=== PATIENT | male | born 1955 | race Caucasian/White ===

== ENCOUNTER 2021-01-12 02:18 | Emergency (ER) | payer MEDICARE, MEDICAID, SELFPAY ==
[2021-01-12 02:20] VITALS: BP 180/110; PULSE 60; O2SAT 98
[2021-01-12 02:24] VITALS: BP 202/87; PULSE 60; RESP 16; TEMP 37; O2SAT 97; BMI 31.4
--- NOTE | 2021-01-12 02:41 | PC.NURSE ---
MD at bedside with U/S. Bladder scanner missing from ED. 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
--- NOTE | 2021-01-12 02:47 | PC.NURSE ---
Per , U/S showing approx 100 ml in bladder. This RN at beside for straight cathed for urine sample, 175 ml of UO in catheter bag. UA sent for analysis.
--- NOTE | 2021-01-12 03:13 | ED.MALEGU ---
HPI - Male Genitourinary General Chief complaint: Urogenital-Male Stated complaint: bladder discomfort Time Seen by Provider: 01/12/21 03:12 Source: patient Mode of arrival: ambulatory Limitations: no limitations History of Present Illness HPI Narrative: Patient having problem urinating for last 5 days dribbling has a history of prostate enlargement before had surgery done. No fever no chills no flank pain no nausea no vomiting otherwise patient feeling fine Related Data Previous Rx's Medication Instructions Recorded phenazopyridine 200 mg tablet 200 mg PO TID 2 Days #6 tab 01/12/21 (Pyridium) Allergies Allergy/AdvReac Type Severity Reaction Status Date / Time clozapine [From Clozaril] Allergy Unknown RASH Unverified 01/12/21 02:28 hydroxyzine [From VISTARIL] Allergy Unknown UNKNOWN Unverified 01/12/21 02:28 menthol [From Antihistamine] Allergy Unknown RASH Unverified 01/12/21 02:28 nicotine [Nicotine] Allergy Unknown GUM- MAKES Unverified 01/12/21 02:28 SICK TO STOMACH nut - unspecified [nut] Allergy Unknown SWELLING Unverified 01/12/21 02:28 From Antihistamine Allergy Unknown RASH Uncoded 01/12/21 02:28 Review of Systems Review of Systems: Yes all other systems are reviewed and are negative PMFSH Past Medical History Medical History Arthritis Hypertension Myocardial infarct Psychiatric diagnosis Social History Social History Advance Directives: No Advance Directives Information Provided: No Physical Exam Vital Signs: Vital Signs: Last Vital Signs Temp 98.6 F 01/12/21 02:24 Pulse 60 01/12/21 02:24 Resp 16 01/12/21 02:24 BP 202/87 H 01/12/21 02:24 Pulse Ox 97 01/12/21 02:24 Body Mass Index 31.4 Appearance: Alert. Oriented X3. No acute distress. Eyes: No pallor or icterus ENT: Pharynx normal. Oral Mucosa moist Neck: Normal inspection. Neck supple. CVS: Normal heart rate and rhythm. Pulses normal. Respiratory: No respiratory distress. Equal air entry bilateral, Abdomen: Soft and nontender. Bowel sounds are present, no mass palpable, no CVA tenderness Skin: Skin warm and dry. Normal skin color. Normal skin turgor. Extremities: No lower extremity edema. No calf tenderness Neuro: Oriented X 3. MDM - Male Genitourinary MDM Narrative Medical decision making narrative: Bladder scan showed urine only 165 cc straight cath was placed the patient was still complaining of retention UA is negative will discharge patient home on Pyridium advised to follow-up with urologist Lab Data Attestation: I reviewed the patient's lab results. Labs: Lab Results 01/12/21 Range/Units 02:50 Urine Color YELLOW Urine Appearance CLEAR Urine pH 6.0 (5.0-8.0) Ur Specific [place] 1.025 (1.005-1.025) Urine Protein TRACE (NEG-TRACE) MG/DL Urine Glucose (UA) NEG (NEG) MG/DL Urine Ketones NEG (NEG) MG/DL Urine Blood TRACE (NEG) Urine Nitrite NEG (NEG) Ur Leukocyte Esterase NEG (NEG) Urine RBC 1-4 (0) /HPF Urine WBC 0-2 (0-4) /HPF Ur Squamous Epith Cells TRACE /LPF Urine Bacteria NONE /LPF Hyaline Casts 0-2 /LPF Urine Mucus 3+ /LPF Discharge Plan Discharge Clinical Impression: Psychogenic dysuria Patient Disposition: Home, Self-Care Additional Instructions: Drink plenty of fluids Follow-up with your PCP Take medication for urinary complaints likely from anxiety Prescriptions: New phenazopyridine [Pyridium] 200 mg tablet 200 mg PO TID 2 Days Qty: 6 RF: 0
[2021-01-12 03:27] LABS: Appearance Urine CLEAR; Color Urine YELLOW; Glucose Urine UA NEG (NEG); Leukocyte Esterase Urine NEG (NEG); Nitrite Urine NEG (NEG); Specific Gravity - Urine 1.025 (1.005-1.025); UACC Culture Trigger NO; Urine Blood TRACE (NEG); Urine Ketones NEG (NEG); Urine Protein TRACE MG/DL (NEG-TRACE)
[2021-01-12 03:49] LABS: Hyaline Casts Urine 0-2 /LPF; Mucus Urine 3+ /LPF; Squamous Epithelial Cell Urine TRACE /LPF; WBC Urine 0-2 /HPF (0-4)
[2021-01-12 04:09] VITALS: BP 184/84; PULSE 68; RESP 16
[2021-01-12] MEDS: Phenazopyridine HCL 200 MG TABLET PO (04:09)
--- NOTE | 2021-01-12 04:14 | PC.NURSE ---
Per MD order, MD requesting pt be discharged with carpio catheter. This RN at bedside, carpio catheter placed, pt tolerating procedure easily. However, immediately following procedure, pt began thrashing on the bed, stating I have to pee!! I have to pee right now!!! Pt advised that a carpio was in place with urine in carpio tube. MD advised of pt condition, MD advising this RN to remove carpio. Pt provided with bedside urinal, able to urinate a very minimal amount. Pt medicated with Pyridium per JUN. Pt provided with DC paperwork, unable to secure transport home until AM. campaign marketing manager aware.
== END 2021-01-12 04:59 | disposition home or self-care (01) ==
PROVIDERS: Emergency Provider Internal Medicine
DX: F45.8 Other somatoform disorders (principal); Z79.899 Other long term (current) drug therapy
CPT/HCPCS: 81001; 81003

== ENCOUNTER 2021-01-12 15:33 | Inpatient (IN) | payer MEDICARE, MEDICAID, SELFPAY ==
--- NOTE | ~2021-01-12 | CT_ITS ---
EXAMINATION: CT HEAD WITHOUT CONTRAST CLINICAL INFORMATION: Left-sided weakness since exam. COMPARISON: CT head from 05/22/2014. TECHNIQUE: Contiguous axial imaging was performed from the skull base to vertex without intravenous administration of contrast. This CT examination was performed using dose optimization techniques as appropriate, variously including the following: *Automated exposure control. *Adjustment of mA and/or kV according to patient size (this includes techniques or standardized protocols for targeted exams where dose is matched to indication/reason for exam; i.e. extremities or head). *Use of iterative reconstruction technique. DLP: 764 mGy-cm FINDINGS: There is a region of lost choudhury-white matter differentiation in the right precentral gyrus. No evidence of acute intracranial hemorrhage. Scattered hypoattenuation in the periventricular and deep white matter are consistent with moderate microangiopathy. Choudhury-white matter differentiation is preserved. Proportional prominence of the ventricles and sulcal spaces. No evidence for obstructive hydrocephalus. No abnormal mass effect or midline shift. No extra-axial fluid collections. Calcific atherosclerotic disease of the intracranial internal carotid and vertebral arteries. No demonstrated hyperdense vessel sign. No acute soft tissue or osseous abnormalities. Mild mucosal thickening of the paranasal sinuses. The mastoid air cells and middle ear cavities remain well aerated. Right-sided lens extraction. CT/CT head/brain wo con IMPRESSION: 1. Region of lost choudhury-white matter differentiation within the right precentral gyrus suggestive of acute to subacute infarct. 2. No evidence of acute intracranial hemorrhage. 3. Moderate underlying microangiopathy and generalized cerebral volume loss has significantly progressed compared to 2014.
--- NOTE | ~2021-01-12 | MR_ITS ---
EXAMINATION: MRI OF THE BRAIN WITHOUT CONTRAST CLINICAL INFORMATION: CVA. COMPARISON: CT scan of the head 01/12/2021. TECHNIQUE: MRI of the brain was obtained using routine sequences without contrast. FINDINGS: On the diffusion images there is mild gyriform increased signal in the right precentral gyrus without corresponding low ADC map signal. This corresponds to areas of increased T2 and FLAIR signal, and is consistent with a subacute infarct. There are no areas of restricted diffusion. No mass effect or midline shift is seen. The ventricles and sulci are commensurately prominent consistent with moderate diffuse volume loss. There are other moderately extensive areas of increased T2 and FLAIR signal in the periventricular and subcortical white matter bilaterally, and in the uriel consistent with chronic microvascular ischemic changes. No extra-axial fluid collections are seen. The cerebellum appears normal. There has been a right lens extraction. No pathologic magnetic susceptibility artifact is identified on the gradient refocused acquisition. The craniovertebral junction, marrow signal, and midline structures are normal. The major intracranial flow-voids at the level of the [place] are preserved. The dural venous sinus flow-voids are maintained. The mastoid air cells are well-aerated. There is opacification in the left greater than right ethmoid air cells. MR/MR head/brain wo con IMPRESSION: 1. There are areas of increased diffusion signal without restriction in the right precentral gyrus, consistent with an evolving subacute infarct. These have corresponding hyperintense T2 and FLAIR signal. There are no acute infarcts. No bleeds are demonstrated. 2. There is diffuse volume loss and there are chronic microvascular ischemic changes.
--- NOTE | ~2021-01-12 | US_ITS ---
EXAMINATION: US EXTRACRANIAL CAROTID DUPLEX, BILATERAL CLINICAL INFORMATION: CVA COMPARISON: None TECHNIQUE: Real-time ultrasound and Doppler techniques (integrating B-mode 2-D vascular images, Doppler spectral analysis and color-flow Doppler imaging) were utilized to interrogate the extracranial carotid arteries, the vertebral arteries and proximal subclavian arteries bilaterally. The degree of stenosis is determined by criteria similar to NASCET. FINDINGS: Right Side: 1. There is prominent calcified atherosclerotic plaque seen in the bifurcation/proximal ICA region. 2. The common carotid artery PSV proximally is 62.3 cm/s and distally 30.3 cm/s. 3. The internal carotid artery is occluded; there is no demonstrable flow on Doppler evaluation 4. The proximal external carotid artery PSV is 626 cm/s. 5. The vertebral artery shows antegrade flow. 6. The subclavian artery waveforms are normal. Left Side: 1. There is moderate heterogeneous atherosclerotic plaque seen in the bifurcation/proximal ICA region. 2. The common carotid artery PSV proximally is 104 cm/s and distally 127 cm/s. 3. The proximal internal carotid artery velocities are 229 cm/s systolic and 72 cm/s diastolic. 4. The proximal external carotid artery PSV is 261 cm/s. 5. The vertebral artery shows retrograde flow. 6. The subclavian artery waveforms are notable for loss of diastolic flow reversal and slowed flow compared with the right. US/US carotid duplex BI IMPRESSION: 1. RIGHT: Occlusion of the right internal carotid artery. High-grade stenosis of the external carotid artery. 2. LEFT: Moderate, hemodynamically significant stenosis of the proximal left internal carotid artery corresponding to a 50-79% stenosis by velocity criteria. 3. There is retrograde flow within the left vertebral artery and slowed flow within the left subclavian artery suggesting some component of subclavian steal. CT angiography could be of benefit to evaluate central vasculature.
--- NOTE | ~2021-01-12 | XR_ITS ---
EXAMINATION: XR CHEST CLINICAL INFORMATION: Weakness COMPARISON: Previous chest x-ray April 2017 TECHNIQUE: Frontal view of the chest was obtained. FINDINGS: The cardiac and mediastinal contours are stable. There is a coronary artery stent. There is question of atelectasis or small infiltrate behind the heart adjacent spine. The lungs are otherwise clear. There is no pleural effusion or pneumothorax. There are degenerative changes of the spine and curvature to the right. XR/XR chest 1V IMPRESSION: Question atelectasis or small infiltrate at the left lung base.
--- NOTE | ~2021-01-12 | CT_ITS ---
EXAMINATION: CT angio head neck CLINICAL INFORMATION: Carotid stenosis. Stroke. COMPARISON: Brain MRI 01/13/2021, CT head 01/12/2021. TECHNIQUE: Post Anesthesia Nurse images were obtained. A CT angiogram of the head and neck was performed in the arterial phase after the intravenous administration of 70 mL Omnipaque 350. Pre and delayed postcontrast images of the head were also obtained. MIP reconstructions were generated in multiple orientations at the acquisition workstation. Multiple three-dimensional surface rendered images and maximum intensity projection images were generated on a dedicated 3-D lab workstation. Arterial stenoses are measured in accordance with NASCET criteria or similar method if applicable. This CT examination was performed using dose optimization techniques as appropriate, including one or more of the following: Automated exposure control, iterative reconstruction, and adjustment of technique factors (mA and/or kVp) according to patient size (this includes techniques or standardized protocols for targeted exams where dose is matched to indication/reason for exam). Total exam dose-length product 2827 mGy-cm FINDINGS: Head: There is no acute intracranial hemorrhage or abnormal extra-axial collection. Postcontrast images reveal no abnormal mass or enhancement within the intracranial compartment. No intracranial mass effect or midline shift. Lateral and third ventricles are normal. No hydrocephalus. There is a small chronic cortical infarct involving the right precentral gyrus. Scattered nonspecific foci of hypoattenuation are also visualized within the periventricular white matter. The calvarium and skull base are intact. Mastoid air cells and middle ear cavities are well aerated. CT angiogram neck: Irregular atheromatous plaque involves the aortic arch apex. The left subclavian artery is completely occluded shortly after its origin. Eccentric atheromatous plaque causes 50% stenosis of the left common carotid artery at its origin. The brachiocephalic trunk is patent. There is extensive eccentric atheromatous plaque involving both common carotid arteries and carotid bifurcations. The right internal carotid artery is completely occluded at its origin. Eccentric atheromatous plaque along the medial wall of left common carotid artery causes 25% stenosis. There is also 50% stenosis at the origin of the left internal carotid artery. The dominant right vertebral artery is widely patent. There is partial opacification of the distal left vertebral artery which suggests the possibility of reversal of flow within the vessel. CT angiogram head: Atheromatous calcification causes no more than mild right lateral narrowing within the cavernous and horizontal petrous segment of the left internal carotid artery. There is reconstitution of contrast filling the supraclinoid segment of the right internal carotid artery. Intradural vertebral artery segments and basilar artery are grossly patent. Anterior, middle, and posterior cerebral artery complexes are patent. Other: Soft tissues of the neck including the thyroid gland are normal. Visualized lung apices are clear. No acute osseous finding. No worrisome lytic or blastic osseous lesion. CT/CT angio head neck IMPRESSION: The left subclavian artery is completely occluded at its origin. The left vertebral artery is partially opacified distally suggesting the possibility of reversal of flow within the vessel. These findings indicate the likelihood of underlying subclavian steal phenomenon. The right internal carotid arteries completely occluded at its origin. Partially calcified eccentric atheromatous plaque causing 50% stenosis of the left internal carotid artery at its origin. There is also a long segment of plaque causing 25% stenosis along the medial wall of the left common carotid artery. There is mild irregular narrowing within the cavernous and horizontal petrous segments of the left internal carotid artery. There is reconstitution of contrast filling the supraclinoid segment of the right internal carotid artery, possibly secondary to cross filling via the anterior communicating artery. The vertebrobasilar system is patent. No identifiable occlusion within the anterior, middle, and posterior cerebral artery complexes.
--- NOTE | ~2021-01-12 | US_ITS ---
EXAMINATION: US VENOUS ULTRASOUND WITH DOPPLER LOWER EXTREMITY, LEFT CLINICAL INFORMATION: Left lower extremity pain COMPARISON: None TECHNIQUE: Ultrasound of the deep veins is performed from the hip to the calf with compression sonography and color and pulse Doppler assessment. Spectral analysis with color-flow imaging is performed. FINDINGS: There is normal venous compression and respiratory variation and augmented flow. The visualized common femoral vein, superficial femoral vein, profunda femoral vein, popliteal vein, and the trifurcation region shows no evidence of deep venous thrombosis. There is no significant popliteal fossa cyst. If the patient's symptoms persist, followup ultrasound in 5 days 7 days might be of value to exclude proximal propagation from a non-visualized calf vein. US/US venous duplex LE LT IMPRESSION: No DVT demonstrated in the left lower extremity.
[2021-01-12 15:44] VITALS: BP 135/70; PULSE 60; O2SAT 96
[2021-01-12 15:53] VITALS: BP 119/65; PULSE 59; RESP 17; TEMP 36.5; O2SAT 95; BMI 33.0
--- NOTE | 2021-01-12 16:16 | ECG_ITS ---
Test Reason : GENERAL MEDICAL Blood Pressure : / mmHG Vent. Rate : 056 BPM Atrial Rate : 056 BPM P-R Int : 150 ms QRS Dur : 082 ms QT Int : 460 ms P-R-T Axes : 053 -23 -29 degrees QTc Int : 443 ms Sinus bradycardia Minimal voltage criteria for LVH, may be normal variant Nonspecific ST and T wave abnormality Abnormal ECG When compared with ECG of 16-SEP-2018 14:06, T wave inversion now evident in Anterior leads Nonspecific ST and T wave abnormality is now Present Heart rate has decreased Referred By: Laura Nicholson Electronically Signed By:DAVID ROSENTHAL
--- NOTE | 2021-01-12 16:19 | ED_ITS ---
HPI - General Adult General Chief complaint: General Medical Stated complaint: weakness, left leg pain Time Seen by Provider: 01/12/21 16:02 Source: patient and EMS Mode of arrival: EMS Limitations: no limitations History of Present Illness HPI narrative: 65 yo male with reported past medical history of CVA with left sided leg weakness and ?facial weakness residual, HTN, arthritis, PA with stents on plavix, mental health here with complaints of generalized weakness but also feels like his left leg is weaker from normal which he noted since 6am this morning. He tells me d/t to this increasing weakness he is having difficulty with ambulating. He was seen in the ED earlier this morning prior to 6am for some urinary complaints and was sent home. Patient tells me he has been laying in bed until his visiting nurse got there to give him his daily medication. They called EMS for transport. Patient denies GANT, neck pain, falls, chest pain, shortness of breath, abdominal pain, vision changes, vomiting or diarrhea. He tells me he has had some urinary frequency, urgency and difficulty with his urine stream as well as some chills this AM. of note, the patient also feels as the left calf is painful cramping and swollen with no injury or trauma. Related Data Home Medications Medication Instructions Recorded Confirmed amlodipine 5 mg tablet 1 tab PO DAILY 01/12/21 atorvastatin 80 mg tablet 1 tab PO QAM 01/12/21 bupropion HCl 150 mg tablet,12 hr 1 tab PO BID 01/12/21 sustained-release clopidogrel 75 mg tablet 1 tab PO DAILY 01/12/21 fluoxetine 40 mg capsule 1 cap PO DAILY 01/12/21 isosorbide mononitrate 30 mg 1 tab PO DAILY 01/12/21 tablet,extended release 24 hr lamotrigine 100 mg tablet 1 tab PO BID 01/12/21 lidocaine 5 % topical patch 1 patch TOPICAL DAILY 01/12/21 metoprolol tartrate 25 mg tablet 1 tab PO BID 01/12/21 quetiapine 400 mg tablet,extended 1 tab PO BEDTIME 01/12/21 release 24 hr tamsulosin 0.4 mg capsule 1 cap PO DAILY 01/12/21 trazodone 100 mg tablet 2 tab PO BEDTIME PRN 01/12/21 Previous Rx's Medication Instructions Recorded phenazopyridine 200 mg tablet 200 mg PO TID 2 Days #6 tab 01/12/21 (Pyridium) Allergies Allergy/AdvReac Type Severity Reaction Status Date / Time clozapine [From Clozaril] Allergy Unknown RASH Unverified 01/12/21 02:28 hydroxyzine [From VISTARIL] Allergy Unknown UNKNOWN Unverified 01/12/21 02:28 menthol [From Antihistamine] Allergy Unknown RASH Unverified 01/12/21 02:28 nicotine [Nicotine] Allergy Unknown GUM- MAKES Unverified 01/12/21 02:28 SICK TO STOMACH nut - unspecified [nut] Allergy Unknown SWELLING Unverified 01/12/21 02:28 From Antihistamine Allergy Unknown RASH Uncoded 01/12/21 02:28 Review of Systems Review of Systems: Yes all other systems are reviewed and are negative Constitutional: Constitutional: Reports no additional constitutional complaints, Denies body ache(s), Denies chills, Denies fever(s), Denies headache(s) and Reports weakness Eyes: Eyes: Reports no additional eye complaints and Denies change in vision ENT: Reports system reviewed and no additional complaints, except as documented, Denies dizziness, Denies headache(s), Denies nasal congestion, Denies nasal discharge and Denies neck pain Cardiovascular: Cardiovascular: Reports no additional cardiovascular complaints, Denies chest pain, Denies leg edema and Denies dyspnea Respiratory: Respiratory: Reports no additional respiratory complaints, Denies cough and Denies dyspnea Gastrointestinal: Gastrointestinal: Reports no additional gastrointestinal complaints, Denies abdominal pain, Denies diarrhea, Denies nausea and Denies vomiting Genitourinary: Genitourinary: Reports urinary frequency, Reports urinary hesitancy, Denies urinary incontinence and Reports urinary urgency Musculoskeletal: Musculoskeletal: Reports no additional musculoskeletal complaints, Denies back pain, Denies arthralgias, Denies joint swelling, Reports muscle cramps, Denies neck pain, Denies numbness and Denies tingling Integumentary/Breasts: Skin/Breast: Reports system reviewed and no additional complaints, except as docu and Denies rash Neurologic: Reports system reviewed and no additional complaints, except as documented, Denies Abnormal speech present, Denies dizziness, Denies headache(s), Denies numbness, Denies tingling and Reports weakness PMFSH Past Medical History Attestation statement: The following information was validated with the patient. Source: old records reviewed and nursing notes reviewed Medical History Arthritis Hypertension Myocardial infarct Psychiatric diagnosis Social History Social History Advance Directives: No Advance Directives Information Provided: No Physical Exam Vital Signs: Vital Signs: Last Vital Signs Temp 97.8 F 01/12/21 19:37 Pulse 62 01/12/21 19:37 Resp 18 01/12/21 19:37 BP 106/47 L 01/12/21 19:37 Pulse Ox 99 01/12/21 19:37 Body Mass Index 33.0 Const: Other: disheveled appearing, flat affect, withdrawn General: coope rative and alert Orientation/consciousness: patient oriented x3 Limitations: no limitations HENMT: Head: Yes normal to inspection Ears: hearing grossly normal bilate rally and TM's normal bilaterally General nose exam: Normal external nose present Face and sinus: Yes normal facial exam Mouth: Normal oral and palatal mucosa present Throat: Yes posterior oropharynx normal, Yes tonsils normal and Yes uvula midline Eyes: Other: +visual impairment at baseline General: appearance normal, both eyes and all related structures Pupils: Equal, round and reactive pupils present Neck: Neck: Yes normal visual inspection, Yes full ROM, Yes no lymphadenopathy and Yes no meningeal signs Chest: Chest palpation & inspection: normal inspection of the chest Resp: Effort & Inspection: normal respiratory effort Auscultation: clear to auscultation bilaterally Cardio: Rate: regular rate Rhythm: regular rhythm Peripheral pulses: Peripheral pulses 2+ throughout GI: Inspection: Yes normal to inspection Palpation (GI): Soft to palpation and nontender Auscultation: normal bowel sounds Back/Spine/Pelvis: Thoracic/Lumbar Spine: thoracic and lumbar spine normal to inspection Skin: General skin exam: no rashes or lesions noted Neuro: General: patient oriented x3, moves all extremities, no meningeal signs and normal sensation to monofilament Cranial nerves: Yes CN's II-XII intact bilaterally, Yes Equal, round and reactive pupils present, Yes Bilaterally intact EOM present, Yes Nystagmus not present, Yes Normal facial strength present and Yes Midline tongue present Cognition (Neuro): normal cognition Speech: No Abnormal speech present and Other speech findings present (Neuro) (normal speech) Motor exam (neuro): Abnormal motor strength present left lower extremity other 4 / 5 and Other motor observations present (bilateral UE 5/5, RLE 5/5) Sensory Exam: Normal double simultaneous stimulation for sensation Coordination: [id number] test normal Extrem: Other: Left posterior calf tender to palp-worsened with flexion of foot. No swelling, warmth or erythema General: Yes normal to inspection and Yes no pedal edema NIH Stroke Scale Internal: Initial- Upon Arrival Level of Consciousness: Alert Level of Consciousness Questions: Answers both questions correctly Level of Consciousness Commands: Performs both tasks correctly Best Gaze: Normal Visual: No visual loss Facial Palsy: Normal Motor Arm (Right): No drift Motor Arm (Left): No drift Motor Leg (Right): No drift Motor Leg (Left): Drift (4/5 strength) Limb Ataxia: Absent Sensory: Normal Best Language: No aphasia Dysarthia: Normal Extinction and Inattention: No abnormality Score: 1 Course Course Course Narrative: 65 yo male with past medical history of reported CVA with residual LLE weakness, PA with stents on plavix, HTN, arthritis, mental health here with reports of ?worsening LLE weakness since 6am. Patient also c/o gen weakness, urinary symptoms, ?chills this AM, LLE cramping and discomfort. On exam neuro normal with exception of 4/5 strength in LLE. Unclear if this is worse then previous. Unfortunately patient is not in TPA window d/t symptoms >10 hrs and being on plavix. NIH 1. Will check labs, CT head, EKG, CXR, UA. Also c/o LLE cramping and calf pain. Will check venous US to r/o DVT. Will attempt to obtain records from [facility] as that is patient's primary hospital (reported admit there this year for CVA). 1704-chest x-ray concerning for potential left lower lobe pneumonia. Blood cultures and lactic acid ordered. At this time infection is suspected. Antibiotics ordered. Patient reports chills this morning, cough last few days. 1899-call from radiology IMPRESSION: 1. Region of lost rodriguez-white matter differentiation within the right precentral gyrus suggestive of acute to subacute infarct. Will discuss with Neurology. Patient on Plavix. Will give aspirin. 1914-discussed patient with Dr. Rosa. Recommended admitting to Medicine. Giving aspirin. Blood pressure 119/65. Recommended holding antihypertensives. Call out to medicine to discuss 1935-Spoke to Dr Armas from the hospital team who accepted admission. Medical Decision Making MDM Narrative Medical decision making narrative: CVA underlying infectious process (UA, CXR) Metabolic cause (labs) Medical Records Medical records reviewed: Yes I reviewed the patient's medical records. Lab Data Lab results reviewed: Yes I reviewed the patient's lab results. Result diagrams: 01/12/21 17:11 01/12/21 17:11 Labs: Lab Results 01/12/21 01/12/21 01/12/21 Range/Units 16:57 17:11 17:11 WBC 10.7 (4.8-10.8) X10*3/uL RBC 4.30 L (4.60-5.80) X10*6/uL Hgb 12.6 L (14.0-18.0) g/dl Hct 37.7 L (42-52) % MCV 87.7 (80-98) fL MCH 29.3 (27.0-33.0) pg MCHC 33.4 (31.0-36.0) g/dl RDW 14.3 (11.0-16.0) % Plt Count 248 (160-400) X10*3/uL MPV 10.0 (9.4-12.4) fL Immature Gran % (Auto) 0.3 (0.0-0.4) % Neut % (Auto) 52.3 (45-73) % Lymph % (Auto) 35.2 (20-40) % [place] % (Auto) 8.3 (2-11) % Eos % (Auto) 3.1 (0-4) % Baso % (Auto) 0.8 (0-2) % Lymph # (Auto) 3.8 (1.2-4.9) X10*3/uL [place] # (Auto) 0.9 (0.1-1.2) X10*3/uL Eos # (Auto) 0.3 (0.0-0.4) X10*3/uL Baso # (Auto) 0.1 (0.0-0.2) X10*3/uL Abs Immat Gran (auto) 0.03 (0.00-0.03) X10*3/uL Absolute Neuts (auto) 5.6 (2.0-8.3) X10*3/uL Absolute Nucleated RBC 0.000 (0.0-0.012) X10*3/uL Nucleated RBC % (auto) 0.0 (0.0-0.2) /100WBC Sodium 141 (135-145) mmol/L Potassium 3.3 (3.3-5.1) mmol/L Chloride 111 H (96-108) mmol/L Carbon Dioxide 23 (22-29) mmol/L Anion Gap 10 L (12-20) BUN 28 H (9-16) mg/dL Creatinine 1.88 H (0.5-1.4) mg/dL Estim Creat Clear Calc 46.6 Estimated GFR 36 POC Glucose 112 (60-115) mg/dL Random Glucose 106 (60-115) mg/dL Lactic Acid (0.5-2.0) mmol/L Calcium 9.1 (8.4-10.2) mg/dL Phosphorus 2.6 L (2.7-4.5) mg/dL Magnesium 2.2 (1.6-2.6) mg/dL Total Bilirubin 0.8 (0.0-1.0) mg/dL Direct Bilirubin 0.2 (0.0-0.5) mg/dL AST 15 (5-37) U/L ALT 14 (0-40) U/L Alkaline Phosphatase 102 (39-117) U/L Total Creatine Kinase 126 (38-174) U/L Troponin I High Sens (<3.5-35.0) ng/L Total Protein 6.4 L (6.5-8.0) g/dL Albumin 3.5 (3.5-5.0) g/dL TSH 0.85 (0.32-4.0) uIU/mL Ethyl Alcohol mg/dL Coronavirus (PCR) (Negative) Influenza Type A (PCR) (Negative) Influenza Type B (PCR) (Negative) RSV RNA Qual (PCR) (Negative) 01/12/21 01/12/21 01/12/21 Range/Units 17:11 17:11 17:11 WBC (4.8-10.8) X10*3/uL RBC (4.60-5.80) X10*6/uL Hgb (14.0-18.0) g/dl Hct (42-52) % MCV (80-98) fL MCH (27.0-33.0) pg MCHC (31.0-36.0) g/dl RDW (11.0-16.0) % Plt Count (160-400) X10*3/uL MPV (9.4-12.4) fL Immature Gran % (Auto) (0.0-0.4) % Neut % (Auto) (45-73) % Lymph % (Auto) (20-40) % [place] % (Auto) (2-11) % Eos % (Auto) (0-4) % Baso % (Auto) (0-2) % Lymph # (Auto) (1.2-4.9) X10*3/uL [place] # (Auto) (0.1-1.2) X10*3/uL Eos # (Auto) (0.0-0.4) X10*3/uL Baso # (Auto) (0.0-0.2) X10*3/uL Abs Immat Gran (auto) (0.00-0.03) X10*3/uL Absolute Neuts (auto) (2.0-8.3) X10*3/uL Absolute Nucleated RBC (0.0-0.012) X10*3/uL Nucleated RBC % (auto) (0.0-0.2) /100WBC Sodium (135-145) mmol/L Potassium (3.3-5.1) mmol/L Chloride (96-108) mmol/L Carbon Dioxide (22-29) mmol/L Anion Gap (12-20) BUN (9-16) mg/dL Creatinine (0.5-1.4) mg/dL Estim Creat Clear Calc Estimated GFR POC Glucose (60-115) mg/dL Random Glucose (60-115) mg/dL Lactic Acid (0.5-2.0) mmol/L Calcium (8.4-10.2) mg/dL Phosphorus (2.7-4.5) mg/dL Magnesium (1.6-2.6) mg/dL Total Bilirubin (0.0-1.0) mg/dL Direct Bilirubin (0.0-0.5) mg/dL AST (5-37) U/L ALT (0-40) U/L Alkaline Phosphatase (39-117) U/L Total Creatine Kinase (38-174) U/L Troponin I High Sens 7.1 (<3.5-35.0) ng/L Total Protein (6.5-8.0) g/dL Albumin (3.5-5.0) g/dL TSH (0.32-4.0) uIU/mL Ethyl Alcohol < 10 mg/dL Coronavirus (PCR) NEGATIVE (Negative) Influenza Type A (PCR) NEGATIVE (Negative) Influenza Type B (PCR) NEGATIVE (Negative) RSV RNA Qual (PCR) NEGATIVE (Negative) 01/12/21 Range/Units 17:47 WBC (4.8-10.8) X10*3/uL RBC (4.60-5.80) X10*6/uL Hgb (14.0-18.0) g/dl Hct (42-52) % MCV (80-98) fL MCH (27.0-33.0) pg MCHC (31.0-36.0) g/dl RDW (11.0-16.0) % Plt Count (160-400) X10*3/uL MPV (9.4-12.4) fL Immature Gran % (Auto) (0.0-0.4) % Neut % (Auto) (45-73) % Lymph % (Auto) (20-40) % [place] % (Auto) (2-11) % Eos % (Auto) (0-4) % Baso % (Auto) (0-2) % Lymph # (Auto) (1.2-4.9) X10*3/uL [place] # (Auto) (0.1-1.2) X10*3/uL Eos # (Auto) (0.0-0.4) X10*3/uL Baso # (Auto) (0.0-0.2) X10*3/uL Abs Immat Gran (auto) (0.00-0.03) X10*3/uL Absolute Neuts (auto) (2.0-8.3) X10*3/uL Absolute Nucleated RBC (0.0-0.012) X10*3/uL Nucleated RBC % (auto) (0.0-0.2) /100WBC Sodium (135-145) mmol/L Potassium (3.3-5.1) mmol/L Chloride (96-108) mmol/L Carbon Dioxide (22-29) mmol/L Anion Gap (12-20) BUN (9-16) mg/dL Creatinine (0.5-1.4) mg/dL Estim Creat Clear Calc Estimated GFR POC Glucose (60-115) mg/dL Random Glucose (60-115) mg/dL Lactic Acid 0.8 (0.5-2.0) mmol/L Calcium (8.4-10.2) mg/dL Phosphorus (2.7-4.5) mg/dL Magnesium (1.6-2.6) mg/dL Total Bilirubin (0.0-1.0) mg/dL Direct Bilirubin (0.0-0.5) mg/dL AST (5-37) U/L ALT (0-40) U/L Alkaline Phosphatase (39-117) U/L Total Creatine Kinase (38-174) U/L Troponin I High Sens (<3.5-35.0) ng/L Total Protein (6.5-8.0) g/dL Albumin (3.5-5.0) g/dL TSH (0.32-4.0) uIU/mL Ethyl Alcohol mg/dL Coronavirus (PCR) (Negative) Influenza Type A (PCR) (Negative) Influenza Type B (PCR) (Negative) RSV RNA Qual (PCR) (Negative) Imaging Data Chest x-ray: Attestation: I personally reviewed and interpreted this imaging study as follows: Radiologist's impression: EXAMINATION: XR CHEST CLINICAL INFORMATION: Weakness COMPARISON: Previous chest x-ray April 2017 TECHNIQUE: Frontal view of the chest was obtained. FINDINGS: The cardiac and mediastinal contours are stable. There is a coronary artery stent. There is question of atelectasis or small infiltrate behind the heart adjacent spine. The lungs are otherwise clear. There is no pleural effusion or pneumothorax. There are degenerative changes of the spine and curvature to the right. XR/XR chest 1V IMPRESSION: Question atelectasis or small infiltrate at the left lung base. Venous US: Attestation: I personally reviewed and interpreted this imaging study as follows: Radiologist's impression: [address] [address] Ultrasound Report Signed Patient: Edward Rosa MR#: [id number] : 1955 Acct:[id number] Age/Sex: 65 / M ADM Date: 01/12/21 Loc: HO.ED Attending Dr: Ordering Physician: Laura Nicholson NP Date of Service: 01/12/21 Procedure(s): US venous duplex LE LT Accession Number(s): [id number] cc: Laura Nicholson NP~ EXAMINATION:? US VENOUS ULTRASOUND WITH DOPPLER LOWER EXTREMITY, LEFT CLINICAL INFORMATION:? Left lower extremity pain COMPARISON:? None TECHNIQUE: Ultrasound of the deep veins is performed from the hip to the calf with compression sonography and color and pulse Doppler assessment. Spectral analysis with color-flow imaging is performed. FINDINGS: There is normal venous compression and respiratory variation and augmented flow. The visualized common femoral vein, superficial femoral vein, profunda femoral vein, popliteal vein, and the trifurcation region shows no evidence of deep venous thrombosis. ? There is no significant popliteal fossa cyst. If the patient's symptoms persist, followup ultrasound in 5 days 7 days might be of value to exclude proximal propagation from a non-visualized calf vein. US/US venous duplex LE LT IMPRESSION: No DVT demonstrated in the left lower extremity. CT scan - head: Attestation: I personally reviewed and interpreted this imaging study as follows: Radiologist's impression: IMPRESSION: 1. Region of lost rodriguez-white matter differentiation within the right precentral gyrus suggestive of acute to subacute infarct. 2. No evidence of acute intracranial hemorrhage. 3. Moderate underlying microangiopathy and generalized cerebral volume loss has significantly progressed compared to 2015. ECG Data Attestation: I personally reviewed and interpreted this ECG as follows: Interpretation: SB with rate 56, normal pr, normal qrs, normal qtc-ST depressions 3-6 (unchanged from previous) Critical Care Time Critical Care Time Critical Care Time: Yes Total Critical Care Time: 60 Attestation: acute CVA, repeat neuro exam, discussion with neurology, discussion with medicine Discharge Plan Discharge Clinical Impression: Acute CVA (cerebrovascular accident), Pneumonia, BRENNA (acute kidney injury) Patient Disposition: Admitted As Inpatient
[2021-01-12 17:16] LABS: MANUAL DIFF FLAG NO
[2021-01-12 17:16] LABS: Glucose, Whole Blood 112 mg/dL (60-115)
[2021-01-12 17:19] LABS: Basophils Absolute Auto 0.1 X10*3/uL (0.0-0.2); Basophils Percent Auto 0.8 % (0-2); Eosinophils Absolute Auto 0.3 X10*3/uL (0.0-0.4); Eosinophils Percent Auto 3.1 % (0-4); Hematocrit 37.7 % (42-52); Hemoglobin 12.6 g/dl (14.0-18.0); Imm Gran Abs Auto 0.03 X10*3/uL (0.00-0.03); Imm Gran Pct Auto 0.3 % (0.0-0.4); Lymphocytes Absolute Auto 3.8 X10*3/uL (1.2-4.9); Lymphocytes Percent Auto 35.2 % (20-40); Mean Corpuscular HGB Conc 33.4 g/dl (31.0-36.0); Mean Corpuscular Hemoglobin 29.3 pg (27.0-33.0); Mean Corpuscular Volume 87.7 fL (80-98); Monocytes Absolute Auto 0.9 X10*3/uL (0.1-1.2); Monocytes Percent Auto 8.3 % (2-11); Neutrophils Absolute Auto 5.6 X10*3/uL (2.0-8.3); Neutrophils Percent Auto 52.3 % (45-73); Platelet Count 248 X10*3/uL (160-400); Red Cell Distribution Width 14.3 % (11.0-16.0); White Blood Count 10.7 X10*3/uL (4.8-10.8)
[2021-01-12 17:33] LABS: Ethanol < 10 mg/dL
[2021-01-12 17:36] LABS: Alanine Aminotransferase 14 U/L (0-40); Albumin Level 3.5 g/dL (3.5-5.0); Alkaline Phosphatase 102 U/L (39-117); Anion Gap 10 (12-20); Aspartate Amino Transferase 15 U/L (5-37); Bilirubin Direct 0.2 mg/dL (0.0-0.5); Bilirubin Total 0.8 mg/dL (0.0-1.0); Blood Urea Nitrogen 28 mg/dL (9-16); Calcium 9.1 mg/dL (8.4-10.2); Carbon Dioxide 23 mmol/L (22-29); Chloride 111 mmol/L (96-108); Creatinine Clr Calc Pharmacy 46.6; Estimated Glomerular Filt Rate 36; Glucose Random 106 mg/dL (60-115); Magnesium 2.2 mg/dL (1.6-2.6); Phosphorus 2.6 mg/dL (2.7-4.5); Potassium 3.3 mmol/L (3.3-5.1); Sodium 141 mmol/L (135-145); Total Protein 6.4 g/dL (6.5-8.0)
[2021-01-12 17:40] LABS: Troponin-I High Sensitivity 7.1 ng/L (<3.5-35.0)
[2021-01-12] MEDS: 0.9 % Sodium Chloride 1,000 ML 999 ML IV (17:55)
[2021-01-12 17:56] LABS: Thyroid Stimulating Hormone 0.85 uIU/mL (0.32-4.0)
[2021-01-12] MEDS: cefTRIAXone sodium 1 GM in 0.9 % Sodium Chloride 50 ML IV (17:56)
--- NOTE | 2021-01-12 17:58 | PC.NURSE ---
patient a&o, labs drawn, ekg performed, pt went to radiology, ivf and antibiotics hanging per order, will continue to monitor.
[2021-01-12 18:09] LABS: Lactic Acid 0.8 mmol/L (0.5-2.0)
[2021-01-12 18:49] LABS: Influenza A PCR NEGATIVE (Negative); Influenza B PCR NEGATIVE (Negative); Resp Syncy Virus RNA Qual PCR NEGATIVE (Negative); SARS COV2 PCR INHOUSE NEGATIVE (Negative)
[2021-01-12] MEDS: Aspirin 81 MG TAB.CHEW 324 MG PO (19:35)
[2021-01-12] MEDS: Azithromycin 500 MG in 0.9 % Sodium Chloride 250 ML 125 MG IV (19:35)
[2021-01-12 19:37] VITALS: BP 106/47; PULSE 62; RESP 18; TEMP 36.6; O2SAT 99
--- NOTE | 2021-01-12 19:38 | PC.NURSE ---
patient awake to verbal stimulus, vitals obtained, pt sinus/sinus fabrice on cardiac montior, vss, pt medicated per order, will continue to monitor.
--- NOTE | 2021-01-12 21:08 | PM.IMHP ---
History of Present Illness Date of Service: 01/12/21 Chief Complaint: left sided weakness This is a 65-year-old male with past medical history of hypertension, CAD status post AK, bipolar disorder, and reports history of CVA earlier this year presented to the hospital with complaints of left-sided weakness. Patient is very vague, unable to give good history but reports that his visiting nurse sent him to the hospital for noticed left-sided weakness. Patient himself reports that he has baseline weakness of the left lower extremity but he feels that it has increased today. This started around 6:00 a.m. and therefore by the time he arrived to the ED he did not qualify for tPA. Patient denies any headache, no change in vision, no chest pain, no shortness of breath, no abdominal pain nausea or vomiting, no diarrhea constipation, no urinary symptoms and no lower extremity edema. On arrival to the ED patient hemodynamically stable with a blood pressure of 202/87, his other vitals are normal Labs are significant for WBC count of 10.7, hemoglobin of 12.7, BUN of 24, creatinine of 1.88 with a baseline of 1.[address] shows region of loss of rodriguez-white matter differentiation within the right precentral gyrus suggestive of acute to subacute infarct, no assistance of acute intracranial home Chest x-ray shows atelectasis versus infiltrate, Neurology was consulted, patient will be admitted for further evaluation in a.m. Review of Systems Review of Systems: Yes all other systems are reviewed and are negative FORMERLY [facility], [facility] Medical History Arthritis Hypertension Myocardial infarct Psychiatric diagnosis Pertinent family history: Patient denies family history Surgical History (Updated 01/13/21 @ 07:14 by Lawrence Armas MD) No significant past surgical history Social History Household Members: None Housing: Apartment Do you presently have visiting nurse or other home services: Yes Patient Tobacco Use Status: Current everyday Tobacco user Tobacco use type: Cigar Use of substances other than those prescribed or required for medical reasons: No Have you been hit, kicked, punched, or otherwise hurt by someone within the past year? If so, by whom?: No Do you feel safe in your current relationship?: No Current Relationship Is there a partner from a previous relationship who is making you feel unsafe now?: No Are you made to feel afraid or neglected: No Advance Directives: No Advance Directives Information Provided: No Do you have thoughts of harming others: None Do you have a plan to hurt others: No Plan Recently lost weight without trying: Unsure Nutrition Risks: On aspiration precautions Poor oral hygiene: No Meds Allergies Allergy/AdvReac Type Severity Reaction Status Date / Time clozapine [From Clozaril] Allergy Unknown RASH Unverified 01/12/21 02:28 hydroxyzine [From VISTARIL] Allergy Unknown UNKNOWN Unverified 01/12/21 02:28 menthol [From Antihistamine] Allergy Unknown RASH Unverified 01/12/21 02:28 nicotine [Nicotine] Allergy Unknown GUM- MAKES Unverified 01/12/21 02:28 SICK TO STOMACH nut - unspecified [nut] Allergy Unknown SWELLING Unverified 01/12/21 02:28 From Antihistamine Allergy Unknown RASH Uncoded 01/12/21 02:28 Home Medications Medication Instructions Recorded Confirmed Last Taken Type amlodipine 5 mg tablet 1 tab PO DAILY 01/12/21 Unknown History atorvastatin 80 mg tablet 1 tab PO QAM 01/12/21 Unknown History bupropion HCl 150 mg tablet,12 hr 1 tab PO BID 01/12/21 Unknown History sustained-release clopidogrel 75 mg tablet 1 tab PO DAILY 01/12/21 Unknown History fluoxetine 40 mg capsule 1 cap PO DAILY 01/12/21 Unknown History isosorbide mononitrate 30 mg 1 tab PO DAILY 01/12/21 Unknown History tablet,extended release 24 hr lamotrigine 100 mg tablet 1 tab PO BID 01/12/21 Unknown History lidocaine 5 % topical patch 1 patch TOPICAL DAILY 01/12/21 Unknown History metoprolol tartrate 25 mg tablet 1 tab PO BID 01/12/21 Unknown History quetiapine 400 mg tablet,extended 1 tab PO BEDTIME 01/12/21 Unknown History release 24 hr tamsulosin 0.4 mg capsule 1 cap PO DAILY 01/12/21 Unknown History trazodone 100 mg tablet 2 tab PO BEDTIME PRN 01/12/21 Unknown History Physical Exam Vital Signs and Narrative: Vital Signs: Last Vital Signs Temp 97.8 F 01/12/21 19:37 Pulse 62 01/12/21 19:37 Resp 18 01/12/21 19:37 BP 106/47 L 01/12/21 19:37 Pulse Ox 99 01/12/21 19:37 Body Mass Index 33.0 Const: General: cooperative and no acute distress Orientation/consciousness: patient oriented x3 Eyes: General: appearance normal, both eyes and all related structures Resp: Effort & Inspection: normal respiratory effort Auscultation: clear to auscultation bilaterally Cardio: Rate: regular rate Rhythm: regular rhythm GI: Palpation (GI): Soft to palpation Auscultation: normal bowel sounds Skin: General skin exam: no rashes or lesions noted Neuro: Other: Has 4/5 weakness in the left lower extremity Otherwise no significant neurological deficits Patient is not significant will cooperating with exam General: patient oriented x3 Cognition (Neuro): normal cognition Extrem: General: Yes normal to inspection and Yes no pedal edema Results Labs CBC and Chem 7: 01/13/21 05:48 01/13/21 05:48 Labs: Laboratory Results - last 24 hr 01/12/21 01/12/21 01/12/21 16:57 17:11 17:11 MCV 87.7 MCH 29.3 MCHC 33.4 RDW 14.3 Plt Count 248 MPV 10.0 Immature Gran % (Auto) 0.3 Neut % (Auto) 52.3 Lymph % (Auto) 35.2 Mcnairy % (Auto) 8.3 Eos % (Auto) 3.1 Baso % (Auto) 0.8 Lymph # (Auto) 3.8 Mcnairy # (Auto) 0.9 Eos # (Auto) 0.3 Baso # (Auto) 0.1 Abs Immat Gran (auto) 0.03 Absolute Neuts (auto) 5.6 Absolute Nucleated RBC 0.000 Nucleated RBC % (auto) 0.0 Anion Gap 10 L Estim Creat Clear Calc 46.6 Estimated GFR 36 POC Glucose 112 Random Glucose 106 Lactic Acid Calcium 9.1 Phosphorus 2.6 L Magnesium 2.2 Total Bilirubin 0.8 Direct Bilirubin 0.2 AST 15 ALT 14 Alkaline Phosphatase 102 Total Creatine Kinase 126 Troponin I High Sens Total Protein 6.4 L Albumin 3.5 TSH 0.85 Ethyl Alcohol Coronavirus (PCR) Influenza Type A (PCR) Influenza Type B (PCR) RSV RNA Qual (PCR) 01/12/21 01/12/21 01/12/21 17:11 17:11 17:11 MCV MCH MCHC RDW Plt Count MPV Immature Gran % (Auto) Neut % (Auto) Lymph % (Auto) [place]nairy % (Auto) Eos % (Auto) Baso % (Auto) Lymph # (Auto) Mcnairy # (Auto) Eos # (Auto) Baso # (Auto) Abs Immat Gran (auto) Absolute Neuts (auto) Absolute Nucleated RBC Nucleated RBC % (auto) Anion Gap Estim Creat Clear Calc Estimated GFR POC Glucose Random Glucose Lactic Acid Calcium Phosphorus Magnesium Total Bilirubin Direct Bilirubin AST ALT Alkaline Phosphatase Total Creatine Kinase Troponin I High Sens 7.1 Total Protein Albumin TSH Ethyl Alcohol < 10 Coronavirus (PCR) NEGATIVE Influenza Type A (PCR) NEGATIVE Influenza Type B (PCR) NEGATIVE RSV RNA Qual (PCR) NEGATIVE 01/12/21 17:47 MCV MCH MCHC RDW Plt Count MPV Immature Gran % (Auto) Neut % (Auto) Lymph % (Auto) [place] % (Auto) Eos % (Auto) Baso % (Auto) Lymph # (Auto) [place]nairy # (Auto) Eos # (Auto) Baso # (Auto) Abs Immat Gran (auto) Absolute Neuts (auto) Absolute Nucleated RBC Nucleated RBC % (auto) Anion Gap Estim Creat Clear Calc Estimated GFR POC Glucose Random Glucose Lactic Acid 0.8 Calcium Phosphorus Magnesium Total Bilirubin Direct Bilirubin AST ALT Alkaline Phosphatase Total Creatine Kinase Troponin I High Sens Total Protein Albumin TSH Ethyl Alcohol Coronavirus (PCR) Influenza Type A (PCR) Influenza Type B (PCR) RSV RNA Qual (PCR) ECG Interpretation: Sinus bradycardia with nonspecific ST T wave change Imaging Radiologist's Impressions: Impressions Chest X-Ray 01/12/21 16:16 IMPRESSION: Question atelectasis or small infiltrate at the left lung base. Head CT 01/12/21 16:16 IMPRESSION: 1. Region of lost rodriguez-white matter differentiation within the right precentral gyrus suggestive of acute to subacute infarct. 2. No evidence of acute intracranial hemorrhage. 3. Moderate underlying microangiopathy and generalized cerebral volume loss has significantly progressed compared to 2015. Venous Duplex 01/12/21 16:19 IMPRESSION: No DVT demonstrated in the left lower extremity. Assessment and Plan (1) Acute CVA (cerebrovascular accident): Status: Acute (2) BRENNA (acute kidney injury): Status: Acute 65-year-old with past medical history of CAD status post AK, bipolar disorder, hypertension who presents to the hospital with left-sided weakness found to have acute to subacute CVA # CVA - acute versus subacute - has 4/5 strength in the lower left extremity - CT head shows region of loss of rodriguez-white matter differentiation within the right precentral gyrus suggestive of acute to subacute infarct - neurology consult - stroke order set initiated - PT OT - high-dose atorvastatin - aspirin - patient on Plavix at baseline for history of AK # BRENNA - unclear etiology - denies any urinary symptom - will obtain UA - IV fluid - follow BMP # history of AK - continue Plavix - home meds are still pending med review by pharmacy # hypertension - hold antihypertensive for permissive hypertension in the setting of acute CVA # history of bipolar disorder - Continue home medications once reviewed by pharmacy DVT prophylaxis: Quality Stroke Does the patient have a stroke diagnosis?: No VTE Prior VTE?: No VTE Risk Level:: Medical - moderate - high VTE Device Contraindication: Treatment Not Indicated VTE Drug Contraindication: N/A - Med Ordered
--- NOTE | 2021-01-12 21:55 | PC.NURSE ---
called [facility], no answer, will notify charge
--- NOTE | 2021-01-12 22:29 | PC.NURSE ---
report given to floor
[2021-01-13] VITALS (8 sets, daily range): BP systolic 135–172; BP diastolic 62–84; PULSE 50–69; RESP 18–20; TEMP 36.4–36.8; O2SAT 94–98
[2021-01-13 06:08] LABS: MANUAL DIFF FLAG NO
[2021-01-13 06:12] LABS: Basophils Absolute Auto 0.1 X10*3/uL (0.0-0.2); Basophils Percent Auto 0.8 % (0-2); Eosinophils Absolute Auto 0.3 X10*3/uL (0.0-0.4); Eosinophils Percent Auto 3.2 % (0-4); Hematocrit 38.5 % (42-52); Hemoglobin 12.7 g/dl (14.0-18.0); Imm Gran Abs Auto 0.04 X10*3/uL (0.00-0.03); Imm Gran Pct Auto 0.4 % (0.0-0.4); Lymphocytes Absolute Auto 3.1 X10*3/uL (1.2-4.9); Lymphocytes Percent Auto 28.7 % (20-40); Mean Corpuscular Hemoglobin 29.5 pg (27.0-33.0); Mean Corpuscular Volume 89.5 fL (80-98); Mean Platelet Volume 10.5 fL (9.4-12.4); Monocytes Absolute Auto 0.8 X10*3/uL (0.1-1.2); Monocytes Percent Auto 7.1 % (2-11); Neutrophils Absolute Auto 6.4 X10*3/uL (2.0-8.3); Neutrophils Percent Auto 59.8 % (45-73); Platelet Count 221 X10*3/uL (160-400); Red Cell Distribution Width 14.3 % (11.0-16.0); White Blood Count 10.7 X10*3/uL (4.8-10.8)
[2021-01-13 06:28] LABS: Anion Gap 12 (12-20); Blood Urea Nitrogen 24 mg/dL (9-16); Calcium 8.6 mg/dL (8.4-10.2); Carbon Dioxide 21 mmol/L (22-29); Chloride 112 mmol/L (96-108); Creatinine Clr Calc Pharmacy 56.2; Estimated Glomerular Filt Rate 45; Glucose Random 119 mg/dL (60-115); Potassium 3.3 mmol/L (3.3-5.1); Sodium 142 mmol/L (135-145)
[2021-01-13 06:30] LABS: Cholesterol 151 mg/dL; HDL Cholesterol 30 mg/dL; LDL Cholesterol Calculated 85 mg/dl; Triglycerides 181 mg/dL
[2021-01-13 07:48] LABS: Appearance Urine HAZY; Color Urine DK YELLOW; Glucose Urine UA NEG (NEG); Leukocyte Esterase Urine NEG (NEG); Nitrite Urine POS (NEG); PH 5.5 (5.0-8.0); Specific Gravity - Urine >= 1.030 (1.005-1.025); Urine Blood 3+ (NEG); Urine Ketones NEG (NEG); Urine Protein 1+ MG/DL (NEG-TRACE)
[2021-01-13 08:01] LABS: RBC Urine TNTC /HPF (0)
[2021-01-13 08:03] LABS: WBC Urine 0-2 /HPF (0-4)
[2021-01-13 08:05] LABS: Amorphous Sediment Urine 1+ /LPF; Bacteria Urine TRACE /LPF
[2021-01-13] MEDS: Aspirin Enteric Coated 81 MG TABLET.DR PO (09:12)
[2021-01-13] MEDS: Lactated Ringers 1,000 ML 100 ML IVCONT ×2 (09:12→15:49)
[2021-01-13] MEDS: Enoxaparin Sodium 40 MG/0.4 ML SYRINGE SUBCUT (09:12)
[2021-01-13] MEDS: Atorvastatin Calcium 80 MG TABLET PO (09:12)
--- NOTE | 2021-01-13 09:43 | MHC.CM.PN ---
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
--- NOTE | 2021-01-13 11:51 | PM.NEUROCN ---
History of Present Illness Data of Consult Service Date: 01/13/21 Primary Care Provider: Balaji Mayo MD [facility] Reason for consult: Possible stroke 65 years old man who was brought to hospital upon his nurses request because he did not look well. He did not know what exactly had happened. According to ER documentation there was suggestion of left-sided weakness but in emergency room that was not noted. He was not considered a candidate for tPA and was admitted for further evaluation. There was no sign of any seizure. Review of Systems Review of Systems: No recent cold or flu-like illness seizure-like episode or trauma. [facility] Past Medical History Medical History (Updated 01/13/21 @ 11:53 by Suzy Rosa MD) Arthritis Hypertension Myocardial infarct Psychiatric diagnosis Surgical History Surgical History No significant past surgical history Social History Social History Household Members: None Housing: Apartment Do you presently have visiting nurse or other home services: Yes Patient Tobacco Use Status: Current everyday Tobacco user Tobacco use type: Cigar Use of substances other than those prescribed or required for medical reasons: No Have you been hit, kicked, punched, or otherwise hurt by someone within the past year? If so, by whom?: No Do you feel safe in your current relationship?: No Current Relationship Is there a partner from a previous relationship who is making you feel unsafe now?: No Are you made to feel afraid or neglected: No Advance Directives: No Advance Directives Information Provided: No Do you have thoughts of harming others: None Do you have a plan to hurt others: No Plan Recently lost weight without trying: Unsure Nutrition Risks: On aspiration precautions Poor oral hygiene: No service: No Meds Allergies Allergy/AdvReac Type Severity Reaction Status Date / Time clozapine [From Clozaril] Allergy Unknown RASH Unverified 01/12/21 02:28 hydroxyzine [From VISTARIL] Allergy Unknown UNKNOWN Unverified 01/12/21 02:28 menthol [From Antihistamine] Allergy Unknown RASH Unverified 01/12/21 02:28 nicotine [Nicotine] Allergy Unknown GUM- MAKES Unverified 01/12/21 02:28 SICK TO STOMACH nut - unspecified [nut] Allergy Unknown SWELLING Unverified 01/12/21 02:28 From Antihistamine Allergy Unknown RASH Uncoded 01/12/21 02:28 Active Medications: Current Medications Acetaminophen (Acetaminophen 325 Mg Tablet) 650 mg PO Q6H PRN PRN Reason: Pain, Mild (Pain Scale 1-3) Aspirin (Aspirin Enteric Coated 81 Mg Tablet.) 81 mg PO DAILY [facility] Last Admin: 01/13/21 09:12 Dose: 81 mg Documented by: Atorvastatin Calcium (Atorvastatin Calcium 80 Mg Tablet) 80 mg PO DAILY [facility] Last Admin: 01/13/21 09:12 Dose: 80 mg Documented by: Docusate Sodium (Docusate Sodium 100 Mg Capsule) 100 mg PO DAILY PRN PRN Reason: Constipation Enoxaparin Sodium (Enoxaparin Sodium 40 Mg/0.4 Ml Syringe) 40 mg SUBCUT Q24H [facility] Last Admin: 01/13/21 09:12 Dose: 40 mg Documented by: Lactated Ringer's (Lr) 1,000 mls @ 100 mls/hr IVCONT .Q10H [facility] Last Admin: 01/13/21 09:12 Dose: 100 mls/hr Documented by: Ondansetron HCl (Ondansetron Hcl 4 Mg/2 Ml Vial) 4 mg IVPUSH Q8H PRN PRN Reason: Nausea and Vomiting Home Medications Medication Instructions Recorded Confirmed Last Taken Type amlodipine 5 mg tablet 1 tab PO DAILY 01/12/21 01/13/21 Unknown History atorvastatin 80 mg tablet 1 tab PO QAM 01/12/21 01/13/21 Unknown History bupropion HCl 150 mg tablet,12 hr 1 tab PO BID 01/12/21 01/13/21 Unknown History sustained-release clopidogrel 75 mg tablet 1 tab PO DAILY 01/12/21 01/13/21 Unknown History fluoxetine 40 mg capsule 1 cap PO DAILY 01/12/21 01/13/21 Unknown History isosorbide mononitrate 30 mg 1 tab PO DAILY 01/12/21 01/13/21 Unknown History tablet,extended release 24 hr lamotrigine 100 mg tablet 1 tab PO BID 01/12/21 01/13/21 Unknown History lidocaine 5 % topical patch 1 patch TOPICAL DAILY 01/12/21 01/13/21 Unknown History metoprolol tartrate 25 mg tablet 1 tab PO BID 01/12/21 01/13/21 Unknown History quetiapine 400 mg tablet,extended 1 tab PO BEDTIME 01/12/21 01/13/21 Unknown History release 24 hr tamsulosin 0.4 mg capsule 1 cap PO DAILY 01/12/21 01/13/21 Unknown History trazodone 100 mg tablet 2 tab PO BEDTIME PRN 01/12/21 01/13/21 Unknown History nitroglycerin 0.4 mg sublingual 0.4 mg SUBLINGUAL USEASDIRECTD PRN 01/13/21 01/13/21 Unknown History tablet Physical Exam Vital Signs: Vital Signs: Last Vital Signs Temp 97.7 F 01/13/21 03:16 Pulse 69 01/13/21 09:20 Resp 20 01/13/21 08:00 BP 135/72 01/13/21 09:20 Pulse Ox 96 01/13/21 09:20 Body Mass Index 33.0 Neuro: Other: He was drowsy but I was a able to talk to him. He answered questions appropriately. Pupils were equal and reactive to light and extraocular muscles were intact. Visual kim are full. Face was symmetrical. Tongue was midline. There was no obvious focal arm or leg weakness. Deep tendon reflexes were absent with flexor plantars. Results Labs CBC & Chem 7: 01/13/21 05:48 01/13/21 05:48 Labs: Short CBC 01/12/21 01/13/21 Range/Units 17:11 05:48 WBC 10.7 10.7 (4.8-10.8) X10*3/uL Hgb 12.6 L 12.7 L (14.0-18.0) g/dl Hct 37.7 L 38.5 L (42-52) % Plt Count 248 221 (160-400) X10*3/uL BMP 01/12/21 01/13/21 17:11 05:48 Sodium 141 142 Potassium 3.3 3.3 Chloride 111 H 112 H Carbon Dioxide 23 21 L BUN 28 H 24 H Creatinine 1.88 H 1.56 H Calcium 9.1 8.6 Cardiac Enzymes 01/12/21 Range/Units 17:11 Total Creatine Kinase 126 (38-174) U/L Liver Function 01/12/21 Range/Units 17:11 Total Bilirubin 0.8 (0.0-1.0) mg/dL Direct Bilirubin 0.2 (0.0-0.5) mg/dL AST 15 (5-37) U/L ALT 14 (0-40) U/L Alkaline Phosphatase 102 (39-117) U/L Albumin 3.5 (3.5-5.0) g/dL Urine 01/13/21 Range/Units 06:40 Urine Color DK YELLOW Urine Appearance HAZY Urine pH 5.5 (5.0-8.0) Ur Specific [employer] >= 1.030 H (1.005-1.025) Urine Protein 1+ H (NEG-TRACE) MG/DL Urine Glucose (UA) NEG (NEG) MG/DL His noncontrast head CT revealed [id number] diffuse cerebral atrophy. Assessment and Plan (1) Encephalopathy: Status: Acute Probably metabolic toxic encephalopathy related to UTI. There was no indication of stroke at this time. Mainstay of management is appropriate treatment of infection and hydration. Procedures Date of Service Date of Service: 01/13/21
--- NOTE | 2021-01-13 11:54 | P.CNNE_ITS ---
History of Present Illness Data of Consult Service Date: 01/13/21 Primary Care Provider: Balaji Mayo MD [facility] Reason for consult: stroke 65 years old man with nonspecific symptoms and possibility of stroke PMFSH Past Medical History Medical History (Updated 01/13/21 @ 11:53 by Suzy Rosa MD) Arthritis Hypertension Myocardial infarct Psychiatric diagnosis Surgical History Surgical History No significant past surgical history Social History Social History Household Members: None Housing: Apartment Do you presently have visiting nurse or other home services: Yes Patient Tobacco Use Status: Current everyday Tobacco user Tobacco use type: Cigar Use of substances other than those prescribed or required for medical reasons: No Have you been hit, kicked, punched, or otherwise hurt by someone within the past year? If so, by whom?: No Do you feel safe in your current relationship?: No Current Relationship Is there a partner from a previous relationship who is making you feel unsafe now?: No Are you made to feel afraid or neglected: No Advance Directives: No Advance Directives Information Provided: No Do you have thoughts of harming others: None Do you have a plan to hurt others: No Plan Recently lost weight without trying: Unsure Nutrition Risks: On aspiration precautions Poor oral hygiene: No service: No Meds Allergies Allergy/AdvReac Type Severity Reaction Status Date / Time clozapine [From Clozaril] Allergy Unknown RASH Unverified 01/12/21 02:28 hydroxyzine [From VISTARIL] Allergy Unknown UNKNOWN Unverified 01/12/21 02:28 menthol [From Antihistamine] Allergy Unknown RASH Unverified 01/12/21 02:28 nicotine [Nicotine] Allergy Unknown GUM- MAKES Unverified 01/12/21 02:28 SICK TO STOMACH nut - unspecified [nut] Allergy Unknown SWELLING Unverified 01/12/21 02:28 From Antihistamine Allergy Unknown RASH Uncoded 01/12/21 02:28 Active Medications: Current Medications Acetaminophen (Acetaminophen 325 Mg Tablet) 650 mg PO Q6H PRN PRN Reason: Pain, Mild (Pain Scale 1-3) Aspirin (Aspirin Enteric Coated 81 Mg Tablet.Dr) 81 mg PO DAILY [facility] Last Admin: 01/13/21 09:12 Dose: 81 mg Documented by: Atorvastatin Calcium (Atorvastatin Calcium 80 Mg Tablet) 80 mg PO DAILY [facility] Last Admin: 01/13/21 09:12 Dose: 80 mg Documented by: Docusate Sodium (Docusate Sodium 100 Mg Capsule) 100 mg PO DAILY PRN PRN Reason: Constipation Enoxaparin Sodium (Enoxaparin Sodium 40 Mg/0.4 Ml Syringe) 40 mg SUBCUT Q24H [facility] Last Admin: 01/13/21 09:12 Dose: 40 mg Documented by: Lactated Ringer's (Lr) 1,000 mls @ 100 mls/hr IVCONT .Q10H [facility] Last Admin: 01/13/21 09:12 Dose: 100 mls/hr Documented by: Ondansetron HCl (Ondansetron Hcl 4 Mg/2 Ml Vial) 4 mg IVPUSH Q8H PRN PRN Reason: Nausea and Vomiting Home Medications Medication Instructions Recorded Confirmed Last Taken Type amlodipine 5 mg tablet 1 tab PO DAILY 01/12/21 01/13/21 Unknown History atorvastatin 80 mg tablet 1 tab PO QAM 01/12/21 01/13/21 Unknown History bupropion HCl 150 mg tablet,12 hr 1 tab PO BID 01/12/21 01/13/21 Unknown History sustained-release clopidogrel 75 mg tablet 1 tab PO DAILY 01/12/21 01/13/21 Unknown History fluoxetine 40 mg capsule 1 cap PO DAILY 01/12/21 01/13/21 Unknown History isosorbide mononitrate 30 mg 1 tab PO DAILY 01/12/21 01/13/21 Unknown History tablet,extended release 24 hr lamotrigine 100 mg tablet 1 tab PO BID 01/12/21 01/13/21 Unknown History lidocaine 5 % topical patch 1 patch TOPICAL DAILY 01/12/21 01/13/21 Unknown History metoprolol tartrate 25 mg tablet 1 tab PO BID 01/12/21 01/13/21 Unknown History quetiapine 400 mg tablet,extended 1 tab PO BEDTIME 01/12/21 01/13/21 Unknown History release 24 hr tamsulosin 0.4 mg capsule 1 cap PO DAILY 01/12/21 01/13/21 Unknown History trazodone 100 mg tablet 2 tab PO BEDTIME PRN 01/12/21 01/13/21 Unknown History nitroglycerin 0.4 mg sublingual 0.4 mg SUBLINGUAL USEASDIRECTD PRN 01/13/21 01/13/21 Unknown History tablet Physical Exam Vital Signs: Vital Signs: Last Vital Signs Temp 97.7 F 01/13/21 03:16 Pulse 69 01/13/21 09:20 Resp 20 01/13/21 08:00 BP 135/72 01/13/21 09:20 Pulse Ox 96 01/13/21 09:20 Body Mass Index 33.0 Results Labs CBC & Chem 7: 01/13/21 05:48 01/13/21 05:48 Labs: Short CBC 01/12/21 01/13/21 Range/Units 17:11 05:48 WBC 10.7 10.7 (4.8-10.8) X10*3/uL Hgb 12.6 L 12.7 L (14.0-18.0) g/dl Hct 37.7 L 38.5 L (42-52) % Plt Count 248 221 (160-400) X10*3/uL BMP 01/12/21 01/13/21 17:11 05:48 Sodium 141 142 Potassium 3.3 3.3 Chloride 111 H 112 H Carbon Dioxide 23 21 L BUN 28 H 24 H Creatinine 1.88 H 1.56 H Calcium 9.1 8.6 Cardiac Enzymes 01/12/21 Range/Units 17:11 Total Creatine Kinase 126 (38-174) U/L Liver Function 01/12/21 Range/Units 17:11 Total Bilirubin 0.8 (0.0-1.0) mg/dL Direct Bilirubin 0.2 (0.0-0.5) mg/dL AST 15 (5-37) U/L ALT 14 (0-40) U/L Alkaline Phosphatase 102 (39-117) U/L Albumin 3.5 (3.5-5.0) g/dL Urine 01/13/21 Range/Units 06:40 Urine Color DK YELLOW Urine Appearance HAZY Urine pH 5.5 (5.0-8.0) Ur Specific [place] >= 1.030 H (1.005-1.025) Urine Protein 1+ H (NEG-TRACE) MG/DL Urine Glucose (UA) NEG (NEG) MG/DL Assessment and Plan (1) Encephalopathy: Status: Acute His head CT was reviewed. It revealed a possible subacute or chronic right frontal infarct. I would recommend obtaining an MRI of brain for further definition. His head CT was reviewed again. It revealed probably a chronic right frontal wedge-shaped area ischemic infarction. Because of this finding, I would suggest obtaining a noncontrast MRI of brain to rule out any acute stroke explaining some of his symptoms. Procedures Date of Service Date of Service: 01/13/21
--- NOTE | 2021-01-13 11:54 | P.CDIC_ITS ---
CDI Concurrent Query Documentation Clarification: PHYSICIAN'S DOCUMENTATION REQUEST Date of Query: 01/13/21 1150 Patient Name: Edward Rosa Admit Date: 01/12/21 Dear Doctor, A review of the medical record indicates additional documentation may be needed. Please review below and update the documentation accordingly. Pneumonia treating Pneumonia rule out Other or undetermined Risk Factors/Clinical Indicators/Treatments ED: 01/12 - Chest xray concerning for potential left lobe pneumonia. CXR: ? some infiltrate at left lung base. Infection is suspected at this time, Antibiotics. Ceftriaxone, Azithromycin, IV fluids. Nutrition risk: on aspiration precautions. Please clarify the following: * [Diagnosis] was present on admission and is now resolved * [Diagnosis] was present on admission and is still being monitored, evaluated, or treated * [Diagnosis] was ruled out * [Diagnosis] is still a likely, suspected, probable diagnosis * Other (please specify) * Unable to determine Use of terms such as suspected, likely, concern for, or probable (associated with a specific diagnosis that is being evaluated, monitored, or treated as if it exists) are acceptable and can be coded in the inpatient setting, when documented at the time of discharge. Thank you, Lauren Browning [facility], CDIS Extension: [phone] Please use your independent medical judgment in providing your response. THIS QUERY IS PART OF THE PERMANENT MEDICAL RECORD Provider Response: Other Other Diagnosis: no pneumonia on admission or at present see note
[2021-01-13] MEDS: Clopidogrel Bisulfate 75 MG TABLET PO (15:48)
--- NOTE | 2021-01-13 17:06 | P.PNIM_ITS ---
Subjective Subjective Date of Service: 01/13/21 Interval History: Being followed for left-sided weakness, feels weakness is improving, complaining of headache, no other acute issues. Review of Systems General no headache, no dizziness, no fever chills. CVS no chest pain, no palpitation. Respiratory no cough, no sob. Gastrointestinal no nausea, no vomiting, no abdominal pain Review of Systems: Yes all other systems are reviewed and are negative Physical Exam Vital Signs: Vital Signs: Last Vital Signs Temp 97.6 F 01/13/21 15:53 Pulse 61 01/13/21 15:53 Resp 18 01/13/21 15:53 BP 158/81 H 01/13/21 15:53 Pulse Ox 95 01/13/21 15:53 Body Mass Index 33.0 General alert oriented x3, no acute distress. Neck supple no JVD. CVS regular rate rhythm, Respiratory lungs clear to auscultation, no respiratory distress, no wheeze, no rhonchi. Gastrointestinal abdomen soft, nontender, bowel sounds audible Extremities no edema. 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 Skin no rash Objective Data Active Medications Acetaminophen (Acetaminophen 325 Mg Tablet) 650 mg PO Q6H PRN PRN Reason: Pain, Mild (Pain Scale 1-3) Aspirin (Aspirin Enteric Coated 81 Mg Tablet.) 81 mg PO DAILY [facility] Last Admin: 01/13/21 09:12 Dose: 81 mg Documented by: ALLI Atorvastatin Calcium (Atorvastatin Calcium 80 Mg Tablet) 80 mg PO DAILY [facility] Last Admin: 01/13/21 09:12 Dose: 80 mg Documented by: ALLI Bupropion HCl (Bupropion Hcl Xl 300 Mg Tab.Er.24h) 300 mg PO DAILY [facility] Clopidogrel Bisulfate (Clopidogrel Bisulfate 75 Mg Tablet) 75 mg PO DAILY [facility] Last Admin: 01/13/21 15:48 Dose: 75 mg Documented by: ALLI Docusate Sodium (Docusate Sodium 100 Mg Capsule) 100 mg PO DAILY PRN PRN Reason: Constipation Enoxaparin Sodium (Enoxaparin Sodium 40 Mg/0.4 Ml Syringe) 40 mg SUBCUT Q24H [facility] Last Admin: 01/13/21 09:12 Dose: 40 mg Documented by: ALLI Fluoxetine HCl (Fluoxetine Hcl 20 Mg Capsule) 40 mg PO DAILY [facility] Lactated Ringer's (Lr) 1,000 mls @ 100 mls/hr IVCONT .Q10H [facility] Last Admin: 01/13/21 15:49 Dose: 100 mls/hr Documented by: ALLI Isosorbide Mononitrate (Isosorbide Mononitrate 30 Mg Tab.Er.24h) 30 mg PO DAILY [facility]; Protocol Lamotrigine (Lamotrigine 100 Mg Tablet) 100 mg PO BID [facility] Lidocaine (Lidocaine 4 % Patch Adh..Patch) 1 patch TRANSDERMA DAILY [facility] Metoprolol Tartrate (Metoprolol Tartrate 25 Mg Tablet) 25 mg PO BID [facility]; Protocol Nitroglycerin (Nitroglycerin 0.4 Mg Tab.Subl) 0.4 mg SUBLINGUAL Q5MX3 PRN PRN Reason: Chest Pain Ondansetron HCl (Ondansetron Hcl 4 Mg/2 Ml Vial) 4 mg IVPUSH Q8H PRN PRN Reason: Nausea and Vomiting Quetiapine Fumarate (Quetiapine Fumarate 200 Mg Tablet) 200 mg PO BID [facility] Tamsulosin HCl (Tamsulosin Hcl 0.4 Mg Capsule) 0.4 mg PO DAILY [facility] Trazodone HCl (Trazodone Hcl 100 Mg Tablet) 100 mg PO BEDTIME PRN PRN Reason: insomnia Labs CBC & Chem 7: 01/13/21 05:48 01/13/21 05:48 Labs: Laboratory Results - last 24 hr 01/12/21 01/12/21 01/12/21 16:57 17:11 17:11 MCV 87.7 MCH 29.3 MCHC 33.4 RDW 14.3 Plt Count 248 MPV 10.0 Immature Gran % (Auto) 0.3 Neut % (Auto) 52.3 Lymph % (Auto) 35.2 Grainger % (Auto) 8.3 Eos % (Auto) 3.1 Baso % (Auto) 0.8 Lymph # (Auto) 3.8 Grainger # (Auto) 0.9 Eos # (Auto) 0.3 Baso # (Auto) 0.1 Abs Immat Gran (auto) 0.03 Absolute Neuts (auto) 5.6 Absolute Nucleated RBC 0.000 Nucleated RBC % (auto) 0.0 Anion Gap 10 L Estim Creat Clear Calc 46.6 Estimated GFR 36 POC Glucose 112 Random Glucose 106 Lactic Acid Calcium 9.1 Phosphorus 2.6 L Magnesium 2.2 Total Bilirubin 0.8 Direct Bilirubin 0.2 AST 15 ALT 14 Alkaline Phosphatase 102 Total Creatine Kinase 126 Troponin I High Sens Total Protein 6.4 L Albumin 3.5 Triglycerides Cholesterol LDL Cholesterol, Calc HDL Cholesterol TSH 0.85 Urine Color Urine Appearance Urine pH Ur Specific [place] Urine Protein Urine Glucose (UA) Urine Ketones Urine Blood Urine Nitrite Ur Leukocyte Esterase Urine RBC Urine WBC Ur Squamous Epith Cells Amorphous Sediment Urine Bacteria Ethyl Alcohol Coronavirus (PCR) Influenza Type A (PCR) Influenza Type B (PCR) RSV RNA Qual (PCR) 01/12/21 01/12/21 01/12/21 17:11 17:11 17:11 MCV MCH MCHC RDW Plt Count MPV Immature Gran % (Auto) Neut % (Auto) Lymph % (Auto) [place]inger % (Auto) Eos % (Auto) Baso % (Auto) Lymph # (Auto) Grainger # (Auto) Eos # (Auto) Baso # (Auto) Abs Immat Gran (auto) Absolute Neuts (auto) Absolute Nucleated RBC Nucleated RBC % (auto) Anion Gap Estim Creat Clear Calc Estimated GFR POC Glucose Random Glucose Lactic Acid Calcium Phosphorus Magnesium Total Bilirubin Direct Bilirubin AST ALT Alkaline Phosphatase Total Creatine Kinase Troponin I High Sens 7.1 Total Protein Albumin Triglycerides Cholesterol LDL Cholesterol, Calc HDL Cholesterol TSH Urine Color Urine Appearance Urine pH Ur Specific [place] Urine Protein Urine Glucose (UA) Urine Ketones Urine Blood Urine Nitrite Ur Leukocyte Esterase Urine RBC Urine WBC Ur Squamous Epith Cells Amorphous Sediment Urine Bacteria Ethyl Alcohol < 10 Coronavirus (PCR) NEGATIVE Influenza Type A (PCR) NEGATIVE Influenza Type B (PCR) NEGATIVE RSV RNA Qual (PCR) NEGATIVE 01/12/21 01/13/21 01/13/21 17:47 05:48 05:48 MCV 89.5 MCH 29.5 MCHC 33.0 RDW 14.3 Plt Count 221 MPV 10.5 Immature Gran % (Auto) 0.4 Neut % (Auto) 59.8 Lymph % (Auto) 28.7 Grainger % (Auto) 7.1 Eos % (Auto) 3.2 Baso % (Auto) 0.8 Lymph # (Auto) 3.1 Grainger # (Auto) 0.8 Eos # (Auto) 0.3 Baso # (Auto) 0.1 Abs Immat Gran (auto) 0.04 H Absolute Neuts (auto) 6.4 Absolute Nucleated RBC 0.000 Nucleated RBC % (auto) 0.0 Anion Gap 12 Estim Creat Clear Calc 56.2 Estimated GFR 45 POC Glucose Random Glucose 119 H Lactic Acid 0.8 Calcium 8.6 Phosphorus Magnesium Total Bilirubin Direct Bilirubin AST ALT Alkaline Phosphatase Total Creatine Kinase Troponin I High Sens Total Protein Albumin Triglycerides Cholesterol LDL Cholesterol, Calc HDL Cholesterol TSH Urine Color Urine Appearance Urine pH Ur Specific [place] Urine Protein Urine Glucose (UA) Urine Ketones Urine Blood Urine Nitrite Ur Leukocyte Esterase Urine RBC Urine WBC Ur Squamous Epith Cells Amorphous Sediment Urine Bacteria Ethyl Alcohol Coronavirus (PCR) Influenza Type A (PCR) Influenza Type B (PCR) RSV RNA Qual (PCR) 01/13/21 01/13/21 05:48 06:40 MCV MCH MCHC RDW Plt Count MPV Immature Gran % (Auto) Neut % (Auto) Lymph % (Auto) [place] % (Auto) Eos % (Auto) Baso % (Auto) Lymph # (Auto) Grainger # (Auto) Eos # (Auto) Baso # (Auto) Abs Immat Gran (auto) Absolute Neuts (auto) Absolute Nucleated RBC Nucleated RBC % (auto) Anion Gap Estim Creat Clear Calc Estimated GFR POC Glucose Random Glucose Lactic Acid Calcium Phosphorus Magnesium Total Bilirubin Direct Bilirubin AST ALT Alkaline Phosphatase Total Creatine Kinase Troponin I High Sens Total Protein Albumin Triglycerides 181 Cholesterol 151 LDL Cholesterol, Calc 85 HDL Cholesterol 30 TSH Urine Color DK YELLOW Urine Appearance HAZY Urine pH 5.5 Ur Specific [place] >= 1.030 H Urine Protein 1+ H Urine Glucose (UA) NEG Urine Ketones NEG Urine Blood 3+ H Urine Nitrite POS H Ur Leukocyte Esterase NEG Urine RBC TNTC H Urine WBC 0-2 Ur Squamous Epith Cells NONE Amorphous Sediment 1+ Urine Bacteria TRACE Ethyl Alcohol Coronavirus (PCR) Influenza Type A (PCR) Influenza Type B (PCR) RSV RNA Qual (PCR) Assessment and Plan (1) Acute CVA (cerebrovascular accident): Status: Acute Assessment and Plan: 65-year-old with past medical history of CAD status post AZ, bipolar disorder, hypertension who presents to the hospital with left-sided weakness found to have acute to subacute CVA # left-sided weakness possible CVA Mild left-sided weakness on examination, CT scan shows possible subacute or chronic right frontal infarction, patient seen by Neuro they recommend MRI head without contrast continue statin, aspirin, resume Plavix Await PT OT recommendation #? BRENNA - unclear etiology, creatinine trending down, DC IV fluids follow BMP, avoid nephrotoxins, will check renal ultrasound if creatinine remains elevated # history of AZ - continue home medications including aspirin, Plavix and statin # hypertension - resume beta-blockers and nitrates, follow BP closely and avoid hypotension # history of bipolar disorder - Continue home medications once reviewed by pharmacy # chest x-ray showed atelectasis/possible infiltrate patient asymptomatic with no fevers stable oxygenation encourage incentive spirometry [place] DVT prophylaxis: On Lovenox Quality Stroke Does the patient have a stroke diagnosis?: No VTE Prior VTE?: No VTE Risk Level:: Medical - moderate - high VTE Device Contraindication: Treatment Not Indicated VTE Drug Contraindication: N/A - Med Ordered
[2021-01-13] MEDS: Acetaminophen 325 MG TABLET 650 MG PO (20:52)
[2021-01-13] MEDS: traZODone HCL 100 MG TABLET PO (20:52)
[2021-01-13] MEDS: QUEtiapine Fumarate 200 MG TABLET PO (20:52)
[2021-01-13] MEDS: lamoTRIgine 100 MG TABLET PO (20:52)
[2021-01-13] MEDS: Metoprolol Tartrate 25 MG TABLET PO (21:00)
[2021-01-14] VITALS (10 sets, daily range): BP systolic 119–181; BP diastolic 60–95; PULSE 51–66; RESP 14–18; TEMP 36.4–36.8; O2SAT 93–95
[2021-01-14] MEDS: Lactated Ringers 1,000 ML 100 ML IVCONT (06:07)
[2021-01-14 07:11] LABS: Anion Gap 8 (12-20); Blood Urea Nitrogen 18 mg/dL (9-16); Calcium 8.4 mg/dL (8.4-10.2); Carbon Dioxide 24 mmol/L (22-29); Chloride 111 mmol/L (96-108); Creatinine Clr Calc Pharmacy 65.4; Estimated Glomerular Filt Rate 54; Glucose Random 104 mg/dL (60-115); Potassium 3.4 mmol/L (3.3-5.1); Sodium 140 mmol/L (135-145)
[2021-01-14] MEDS: Metoprolol Tartrate 25 MG TABLET PO ×2 (08:54→21:03)
[2021-01-14] MEDS: Clopidogrel Bisulfate 75 MG TABLET PO (08:54)
[2021-01-14] MEDS: FLUoxetine HCl 20 MG CAPSULE 40 MG PO (08:54)
[2021-01-14] MEDS: lamoTRIgine 100 MG TABLET PO ×2 (08:54→21:03)
[2021-01-14] MEDS: Isosorbide Mononitrate 30 MG TAB.ER.24H PO (08:54)
[2021-01-14] MEDS: QUEtiapine Fumarate 200 MG TABLET PO ×2 (08:54→21:03)
[2021-01-14] MEDS: Aspirin Enteric Coated 81 MG TABLET.DR PO (08:54)
[2021-01-14] MEDS: buPROPion HCl XL 300 MG TAB.ER.24H PO (08:54)
[2021-01-14] MEDS: Lidocaine 4 % Patch ADH..PATCH 1 PATCH TRANSDERMA (08:55)
[2021-01-14] MEDS: Tamsulosin HCL 0.4 MG CAPSULE PO (08:55)
[2021-01-14] MEDS: Atorvastatin Calcium 80 MG TABLET PO (08:55)
[2021-01-14] MEDS: Enoxaparin Sodium 40 MG/0.4 ML SYRINGE SUBCUT (08:55)
[2021-01-14] MEDS: Acetaminophen 325 MG TABLET 650 MG PO (13:13)
--- NOTE | 2021-01-14 15:09 | HO.PM.IMPN ---
Subjective Subjective Date of Service: 01/14/21 Interval History: Patient being followed for right-sided subacute stroke, persistent mild left-sided weakness no worsening symptoms, no speech impairment, no other acute issues overnight, BP noted to be elevated at a.m. but trended down after blood pressure medication. Review of Systems General no headache, no dizziness, no fever chills.? CVS no chest pain, no palpitation.? Respiratory no cough, no sob.? Gastrointestinal no nausea, no vomiting, no abdominal pain Review of Systems: Yes all other systems are reviewed and are negative Physical Exam Vital Signs: Vital Signs: Last Vital Signs Temp 98.3 F 01/14/21 11:32 Pulse 54 01/14/21 11:55 Resp 18 01/14/21 11:32 BP 121/60 01/14/21 11:55 Pulse Ox 95 01/14/21 11:55 Body Mass Index 33.0 General alert oriented x3, no acute distress.? Neck? supple no JVD. CVS? regular rate rhythm, Respiratory lungs clear to auscultation, no respiratory distress, no wheeze, no rhonchi. Gastrointestinal abdomen soft, nontender, bowel sounds audible Extremities no edema. Neuro? 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, no change in neuro examination since yesterday Skin no rash Objective Data Active Medications Acetaminophen (Acetaminophen 325 Mg Tablet) 650 mg PO Q6H PRN PRN Reason: Pain, Mild (Pain Scale 1-3) Last Admin: 01/14/21 13:13 Dose: 650 mg Documented by: ALLI Aspirin (Aspirin Enteric Coated 81 Mg Tablet.) 81 mg PO DAILY [facility] Last Admin: 01/14/21 08:54 Dose: 81 mg Documented by: ALLI Atorvastatin Calcium (Atorvastatin Calcium 80 Mg Tablet) 80 mg PO DAILY [facility] Last Admin: 01/14/21 08:55 Dose: 80 mg Documented by: ALLI Bupropion HCl (Bupropion Hcl Xl 300 Mg Tab.Er.24h) 300 mg PO DAILY [facility] Last Admin: 01/14/21 08:54 Dose: 300 mg Documented by: ALLI Clopidogrel Bisulfate (Clopidogrel Bisulfate 75 Mg Tablet) 75 mg PO DAILY [facility] Last Admin: 01/14/21 08:54 Dose: 75 mg Documented by: ALLI Docusate Sodium (Docusate Sodium 100 Mg Capsule) 100 mg PO DAILY PRN PRN Reason: Constipation Enoxaparin Sodium (Enoxaparin Sodium 40 Mg/0.4 Ml Syringe) 40 mg SUBCUT Q24H [facility] Last Admin: 01/14/21 08:55 Dose: 40 mg Documented by: ALLI Fluoxetine HCl (Fluoxetine Hcl 20 Mg Capsule) 40 mg PO DAILY [facility] Last Admin: 01/14/21 08:54 Dose: 40 mg Documented by: ALLI Isosorbide Mononitrate (Isosorbide Mononitrate 30 Mg Tab.Er.24h) 30 mg PO DAILY [facility]; Protocol Last Admin: 01/14/21 08:54 Dose: 30 mg Documented by: ALLI Lamotrigine (Lamotrigine 100 Mg Tablet) 100 mg PO BID [facility] Last Admin: 01/14/21 08:54 Dose: 100 mg Documented by: ALLI Lidocaine (Lidocaine 4 % Patch Adh..Patch) 1 patch TRANSDERMA DAILY [facility] Last Admin: 01/14/21 08:55 Dose: 1 patch Documented by: ALLI Metoprolol Tartrate (Metoprolol Tartrate 25 Mg Tablet) 25 mg PO BID [facility]; Protocol Last Admin: 01/14/21 08:54 Dose: 25 mg Documented by: ALLI Nitroglycerin (Nitroglycerin 0.4 Mg Tab.Subl) 0.4 mg SUBLINGUAL Q5MX3 PRN PRN Reason: Chest Pain Ondansetron HCl (Ondansetron Hcl 4 Mg/2 Ml Vial) 4 mg IVPUSH Q8H PRN PRN Reason: Nausea and Vomiting Quetiapine Fumarate (Quetiapine Fumarate 200 Mg Tablet) 200 mg PO BID [facility] Last Admin: 01/14/21 08:54 Dose: 200 mg Documented by: ALLI Tamsulosin HCl (Tamsulosin Hcl 0.4 Mg Capsule) 0.4 mg PO DAILY [facility] Last Admin: 01/14/21 08:55 Dose: 0.4 mg Documented by: ALLI Trazodone HCl (Trazodone Hcl 100 Mg Tablet) 100 mg PO BEDTIME PRN PRN Reason: insomnia Last Admin: 01/13/21 20:52 Dose: 100 mg Documented by: FAUSTO Labs CBC & Chem 7: 01/13/21 05:48 01/14/21 06:20 Labs: Laboratory Results - last 24 hr 01/14/21 06:20 Anion Gap 8 L Estim Creat Clear Calc 65.4 Estimated GFR 54 Random Glucose 104 Calcium 8.4 Microbiology Microbiology Results: Microbiology 01/12/21 17:48 Blood Culture - Preliminary Blood - Venous No growth after 24 hours. 01/12/21 17:47 Blood Culture - Preliminary Blood - Venous No growth after 24 hours. Assessment and Plan (1) Acute CVA (cerebrovascular accident): Status: Acute (2) BRENNA (acute kidney injury): Status: Acute Assessment and Plan: 65-year-old with past medical history of CAD status post ND, bipolar disorder, hypertension who presents to the hospital with left-sided weakness found to have acute to subacute CVA # left-sided weakness possible CVA ?? Mild left-sided weakness on examination, CT scan shows possible subacute or chronic right frontal infarction MRI showed subacute right frontal infarction, carotid ultrasound showed right internal carotid artery occlusion and left internal carotid 50-79% stenosis continue statin, aspirin, and Plavix ?? Seen by physical therapy they recommend home service Will consult vascular surgery due to carotid artery occlusion #? BRENNA - creatinine normalized, unclear etiology, likely pre renal,improved with ivf , will DC IV fluid # history of ND - continue home medications including aspirin, Plavix and statin # hypertension - BP elevated this morning but improved after beta-blockers and nitrates, BP systolic BP dropped from 181/95 to 119/62, follow BP closely and avoid hypotension, Norvasc on hold will resume if noted to have elevated blood pressure on current medication # history of bipolar disorder - Continue home medications , no behavioral issues noted # chest x-ray showed atelectasis/possible infiltrate patient asymptomatic with no fevers, no shortness of breath, no cough, stable oxygenation encourage incentive spirometry, no pneumonia DVT prophylaxis:? On Lovenox Quality Stroke Does the patient have a stroke diagnosis?: No VTE Prior VTE?: No VTE Risk Level:: Medical - moderate - high VTE Device Contraindication: Treatment Not Indicated VTE Drug Contraindication: N/A - Med Ordered
[2021-01-15] VITALS (9 sets, daily range): BP systolic 111–192; BP diastolic 57–80; PULSE 54–62; RESP 16–18; TEMP 36.4–36.6; O2SAT 93–96
--- NOTE | 2021-01-15 09:19 | PM.CNGS ---
History of Present Illness Consult details Consult date: 01/15/21 Reason for consult: other (Carotid stenosis with stroke) Narrative: Pleasant 65-year-old gentleman presents for evaluation regarding carotid stenosis. He initially presented to the emergency room with difficulty urinating in a left lower extremity weakness. Upon workup he was noted to have a stroke. Subsequent ultrasound demonstrated carotid occlusion. He now presents to us for vascular evaluation. He has had no other interval issues since his admission. He has had no recurrent events since admission. Review of Systems Review of Systems: Yes all other systems are reviewed and are negative Constitutional: Constitutional: Reports no additional constitutional complaints ENT: Reports Normal hearing present Cardiovascular: Cardiovascular: Denies chest pain, Denies chest pain at rest, Denies chest pain with activity and Denies pedal edema Respiratory: Respiratory: Denies cough Gastrointestinal: Gastrointestinal: Denies abdominal pain Musculoskeletal: Musculoskeletal: Denies abnormal gait, Denies muscle cramps and Denies radiating pain into limb Integumentary/Breasts: Skin/Breast: Denies skin ulcer and Denies wounds Neurologic: Reports Normal hearing present and Denies abnormal gait Psychiatric: Psychiatric: Reports no additional psychiatric complaints [facility] Past Medical History Medical History (Updated 01/15/21 @ 09:22 by Asim Butterfield MD) Arthritis Hypertension Myocardial infarct Psychiatric diagnosis Surgical History Surgical History No significant past surgical history Social History Social History Household Members: None Housing: Apartment Do you presently have visiting nurse or other home services: Yes Patient Tobacco Use Status: Current everyday Tobacco user Tobacco use type: Cigar Use of substances other than those prescribed or required for medical reasons: No Currently Displaying Signs/Symptoms of Drug Intoxication Withdrawal: No Have you been hit, kicked, punched, or otherwise hurt by someone within the past year? If so, by whom?: No Do you feel safe in your current relationship?: No Current Relationship Is there a partner from a previous relationship who is making you feel unsafe now?: No Are you made to feel afraid or neglected: No Advance Directives: No Advance Directives Information Provided: No Do you have thoughts of harming others: None Do you have a plan to hurt others: No Plan Recently lost weight without trying: Unsure Nutrition Risks: On aspiration precautions Poor oral hygiene: No service: No Meds Allergies Allergy/AdvReac Type Severity Reaction Status Date / Time clozapine [From Clozaril] Allergy Unknown RASH Unverified 01/12/21 02:28 hydroxyzine [From VISTARIL] Allergy Unknown UNKNOWN Unverified 01/12/21 02:28 menthol [From Antihistamine] Allergy Unknown RASH Unverified 01/12/21 02:28 nicotine [Nicotine] Allergy Unknown GUM- MAKES Unverified 01/12/21 02:28 SICK TO STOMACH nut - unspecified [nut] Allergy Unknown SWELLING Unverified 01/12/21 02:28 From Antihistamine Allergy Unknown RASH Uncoded 01/12/21 02:28 Active Medications: Current Medications Acetaminophen (Acetaminophen 325 Mg Tablet) 650 mg PO Q6H PRN PRN Reason: Pain, Mild (Pain Scale 1-3) Last Admin: 01/14/21 13:13 Dose: 650 mg Documented by: Amlodipine Besylate (Amlodipine Besylate 5 Mg Tablet) 5 mg PO DAILY [facility]; Protocol Aspirin (Aspirin Enteric Coated 81 Mg Tablet.Dr) 81 mg PO DAILY [facility] Last Admin: 01/14/21 08:54 Dose: 81 mg Documented by: Atorvastatin Calcium (Atorvastatin Calcium 80 Mg Tablet) 80 mg PO DAILY [facility] Last Admin: 01/14/21 08:55 Dose: 80 mg Documented by: Bupropion HCl (Bupropion Hcl Xl 300 Mg Tab.Er.24h) 300 mg PO DAILY [facility] Last Admin: 01/14/21 08:54 Dose: 300 mg Documented by: Clopidogrel Bisulfate (Clopidogrel Bisulfate 75 Mg Tablet) 75 mg PO DAILY [facility] Last Admin: 01/14/21 08:54 Dose: 75 mg Documented by: Docusate Sodium (Docusate Sodium 100 Mg Capsule) 100 mg PO DAILY PRN PRN Reason: Constipation Enoxaparin Sodium (Enoxaparin Sodium 40 Mg/0.4 Ml Syringe) 40 mg SUBCUT Q24H [facility] Last Admin: 01/14/21 08:55 Dose: 40 mg Documented by: Fluoxetine HCl (Fluoxetine Hcl 20 Mg Capsule) 40 mg PO DAILY [facility] Last Admin: 01/14/21 08:54 Dose: 40 mg Documented by: Isosorbide Mononitrate (Isosorbide Mononitrate 30 Mg Tab.Er.24h) 30 mg PO DAILY [facility]; Protocol Last Admin: 01/14/21 08:54 Dose: 30 mg Documented by: Lamotrigine (Lamotrigine 100 Mg Tablet) 100 mg PO BID [facility] Last Admin: 01/14/21 21:03 Dose: 100 mg Documented by: Lidocaine (Lidocaine 4 % Patch Adh..Patch) 1 patch TRANSDERMA DAILY [facility] Last Admin: 01/14/21 08:55 Dose: 1 patch Documented by: Metoprolol Tartrate (Metoprolol Tartrate 25 Mg Tablet) 25 mg PO BID [facility]; Protocol Last Admin: 01/14/21 21:03 Dose: 25 mg Documented by: Nitroglycerin (Nitroglycerin 0.4 Mg Tab.Subl) 0.4 mg SUBLINGUAL Q5MX3 PRN PRN Reason: Chest Pain Ondansetron HCl (Ondansetron Hcl 4 Mg/2 Ml Vial) 4 mg IVPUSH Q8H PRN PRN Reason: Nausea and Vomiting Quetiapine Fumarate (Quetiapine Fumarate 200 Mg Tablet) 200 mg PO BID [facility] Last Admin: 01/14/21 21:03 Dose: 200 mg Documented by: Tamsulosin HCl (Tamsulosin Hcl 0.4 Mg Capsule) 0.4 mg PO DAILY [facility] Last Admin: 01/14/21 08:55 Dose: 0.4 mg Documented by: Trazodone HCl (Trazodone Hcl 100 Mg Tablet) 100 mg PO BEDTIME PRN PRN Reason: insomnia Last Admin: 01/13/21 20:52 Dose: 100 mg Documented by: Home Medications Medication Instructions Recorded Confirmed Last Taken Type amlodipine 5 mg tablet 1 tab PO DAILY 01/12/21 01/13/21 Unknown History atorvastatin 80 mg tablet 1 tab PO QAM 01/12/21 01/13/21 Unknown History bupropion HCl 150 mg tablet,12 hr 1 tab PO BID 01/12/21 01/13/21 Unknown History sustained-release clopidogrel 75 mg tablet 1 tab PO DAILY 01/12/21 01/13/21 Unknown History fluoxetine 40 mg capsule 1 cap PO DAILY 01/12/21 01/13/21 Unknown History isosorbide mononitrate 30 mg 1 tab PO DAILY 01/12/21 01/13/21 Unknown History tablet,extended release 24 hr lamotrigine 100 mg tablet 1 tab PO BID 01/12/21 01/13/21 Unknown History lidocaine 5 % topical patch 1 patch TOPICAL DAILY 01/12/21 01/13/21 Unknown History metoprolol tartrate 25 mg tablet 1 tab PO BID 01/12/21 01/13/21 Unknown History quetiapine 400 mg tablet,extended 1 tab PO BEDTIME 01/12/21 01/13/21 Unknown History release 24 hr tamsulosin 0.4 mg capsule 1 cap PO DAILY 01/12/21 01/13/21 Unknown History trazodone 100 mg tablet 2 tab PO BEDTIME PRN 01/12/21 01/13/21 Unknown History nitroglycerin 0.4 mg sublingual 0.4 mg SUBLINGUAL USEASDIRECTD PRN 01/13/21 01/13/21 Unknown History tablet Physical Exam Vital Signs: Vital Signs: Last Vital Signs Temp 97.8 F 01/15/21 07:47 Pulse 55 01/15/21 07:47 Resp 18 01/15/21 07:47 BP 170/78 H 01/15/21 07:47 Pulse Ox 96 01/15/21 07:47 Body Mass Index 33.0 Const: General: cooperative, healthy appearing and comfortable Orientation/consciousness: oriented to person, oriented to place and oriented to time HENMT: Head: Yes normal to inspection Neck: Neck: Yes normal visual inspection Carotids: no bruits Chest: Chest palpation & inspection: normal inspection of the chest Resp: Effort & Inspection: normal respiratory effort and able to speak in complete sentences Auscultation: clear to auscultation bilaterally, no crackles, no rales, no rhonchi and no wheezes Cardio: Rate: regular rate Rhythm: regular rhythm Heart sounds: S1 normal heart sound present and S2 normal heart sound present Bruits: no carotid bruits Peripheral pulses: Peripheral pulses 2+ throughout GI: Inspection: Yes normal to inspection Skin: Wounds: no wounds Hair: normal Neuro: General: oriented to person, oriented to place and oriented to time Cranial nerves: Yes CN's II-XII intact bilaterally and Yes Normal hearing present Cognition (Neuro): normal cognition Motor exam (neuro): 5/5 motor strength present throughout Extrem: Other: venous exam: No significant superficial varicosities or spider telangiectasias, minimal edema General: No clubbing, No cyanosis and No edema Psych: Appearance: grossly normal Mental Status: mental status grossly normal Speech and movement: Normal speech and movement present Results Labs Result diagrams: 01/13/21 05:48 01/14/21 06:20 Labs: Urine 01/13/21 Range/Units 06:40 Urine Color DK YELLOW Urine Appearance HAZY Urine pH 5.5 (5.0-8.0) Ur Specific [place] >= 1.030 H (1.005-1.025) Urine Protein 1+ H (NEG-TRACE) MG/DL Urine Glucose (UA) NEG (NEG) MG/DL All other labs normal. Imaging Additional studies: MRI demonstrates evolving subacute infarct of right precentral gyrus Carotid ultrasound demonstrates right-sided carotid occlusion left-sided 50-79% stenosis Assessment and Plan (1) Stroke due to stenosis of carotid artery: Status: Acute At the current time patient appears to be stable. I have taken the liberty of ordering a CT angiogram of the carotids to better elucidate the true degree of stenosis on the left and confirm occlusion on the right. If tolerated would recommend dual anti-platelet of aspirin and Plavix. We will follow-up on a CT angiogram. If that is stable he can follow up with us as an outpatient. This was discussed with the patient. Thank you for allowing us to assist in his care. Procedures Date of Service Date of Service: 01/15/21
[2021-01-15] MEDS: Enoxaparin Sodium 40 MG/0.4 ML SYRINGE SUBCUT (10:34)
[2021-01-15] MEDS: Lidocaine 4 % Patch ADH..PATCH 1 PATCH TRANSDERMA (10:34)
[2021-01-15] MEDS: Clopidogrel Bisulfate 75 MG TABLET PO (10:41)
[2021-01-15] MEDS: Metoprolol Tartrate 25 MG TABLET PO (10:41)
[2021-01-15] MEDS: QUEtiapine Fumarate 200 MG TABLET PO ×2 (10:41→22:15)
[2021-01-15] MEDS: Atorvastatin Calcium 80 MG TABLET PO (10:42)
[2021-01-15] MEDS: buPROPion HCl XL 300 MG TAB.ER.24H PO (10:42)
[2021-01-15] MEDS: FLUoxetine HCl 20 MG CAPSULE 40 MG PO (10:42)
[2021-01-15] MEDS: Isosorbide Mononitrate 30 MG TAB.ER.24H PO (10:42)
[2021-01-15] MEDS: lamoTRIgine 100 MG TABLET PO ×2 (10:42→22:15)
[2021-01-15] MEDS: amLODIPine Besylate 5 MG TABLET PO (10:42)
[2021-01-15] MEDS: Tamsulosin HCL 0.4 MG CAPSULE PO (10:42)
[2021-01-15] MEDS: Aspirin Enteric Coated 81 MG TABLET.DR PO (10:43)
--- NOTE | 2021-01-15 12:12 | PC.NURSE ---
To Ct Scan with transporters. Patient aware and agrees with plan of care.
--- NOTE | 2021-01-15 13:10 | MHC.CM.PN ---
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
[2021-01-15] MEDS: iohexoL 350 MG/ML 100 ML INFUS..BTL 70 ML IV (13:42)
--- NOTE | 2021-01-15 15:44 | HO.PM.IMPN ---
Subjective Subjective Date of Service: 01/15/21 Interval History: Patient being followed for subacute CVA with left-sided weakness, offers no acute complaints, no headache, no dizziness , no new weakness. Review of Systems General no headache, no dizziness, no fever chills.? CVS no chest pain, no palpitation.? Respiratory no cough, no sob.? Gastrointestinal no nausea, no vomiting, no abdominal pain Review of Systems: Yes all other systems are reviewed and are negative Physical Exam Vital Signs: Vital Signs: Last Vital Signs Temp 97.5 F 01/15/21 15:32 Pulse 58 01/15/21 15:32 Resp 17 01/15/21 15:32 BP 124/63 01/15/21 15:32 Pulse Ox 96 01/15/21 15:32 Body Mass Index 33.0 General alert oriented x3, no acute distress.? Neck? supple no JVD. CVS? regular rate rhythm, Respiratory lungs clear to auscultation, no respiratory distress, no wheeze, no rhonchi. Gastrointestinal abdomen soft, nontender, bowel sounds audible Extremities no edema. Neuro? 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 since admit Skin no rash Objective Data Active Medications Acetaminophen (Acetaminophen 325 Mg Tablet) 650 mg PO Q6H PRN PRN Reason: Pain, Mild (Pain Scale 1-3) Last Admin: 01/14/21 13:13 Dose: 650 mg Documented by: ALLI Amlodipine Besylate (Amlodipine Besylate 5 Mg Tablet) 5 mg PO DAILY [facility]; Protocol Last Admin: 01/15/21 10:42 Dose: 5 mg Documented by: ANITRA Aspirin (Aspirin Enteric Coated 81 Mg Tablet.Dr) 81 mg PO DAILY [facility] Last Admin: 01/15/21 10:43 Dose: 81 mg Documented by: ANITRA Atorvastatin Calcium (Atorvastatin Calcium 80 Mg Tablet) 80 mg PO DAILY [facility] Last Admin: 01/15/21 10:42 Dose: 80 mg Documented by: ANITRA Bupropion HCl (Bupropion Hcl Xl 300 Mg Tab.Er.24h) 300 mg PO DAILY [facility] Last Admin: 01/15/21 10:42 Dose: 300 mg Documented by: ANITRA Clopidogrel Bisulfate (Clopidogrel Bisulfate 75 Mg Tablet) 75 mg PO DAILY [facility] Last Admin: 01/15/21 10:41 Dose: 75 mg Documented by: ANITRA Docusate Sodium (Docusate Sodium 100 Mg Capsule) 100 mg PO DAILY PRN PRN Reason: Constipation Enoxaparin Sodium (Enoxaparin Sodium 40 Mg/0.4 Ml Syringe) 40 mg SUBCUT Q24H [facility] Last Admin: 01/15/21 10:34 Dose: 40 mg Documented by: ANITRA Fluoxetine HCl (Fluoxetine Hcl 20 Mg Capsule) 40 mg PO DAILY [facility] Last Admin: 01/15/21 10:42 Dose: 40 mg Documented by: ANITRA Isosorbide Mononitrate (Isosorbide Mononitrate 30 Mg Tab.Er.24h) 30 mg PO DAILY [facility]; Protocol Last Admin: 01/15/21 10:42 Dose: 30 mg Documented by: ANITRA Lamotrigine (Lamotrigine 100 Mg Tablet) 100 mg PO BID [facility] Last Admin: 01/15/21 10:42 Dose: 100 mg Documented by: ANITRA Lidocaine (Lidocaine 4 % Patch Adh..Patch) 1 patch TRANSDERMA DAILY [facility] Last Admin: 01/15/21 10:34 Dose: 1 patch Documented by: ANITRA Metoprolol Tartrate (Metoprolol Tartrate 25 Mg Tablet) 25 mg PO BID [facility]; Protocol Last Admin: 01/15/21 10:41 Dose: 25 mg Documented by: ANITRA Nitroglycerin (Nitroglycerin 0.4 Mg Tab.Subl) 0.4 mg SUBLINGUAL Q5MX3 PRN PRN Reason: Chest Pain Ondansetron HCl (Ondansetron Hcl 4 Mg/2 Ml Vial) 4 mg IVPUSH Q8H PRN PRN Reason: Nausea and Vomiting Quetiapine Fumarate (Quetiapine Fumarate 200 Mg Tablet) 200 mg PO BID [facility] Last Admin: 01/15/21 10:41 Dose: 200 mg Documented by: ANITRA Tamsulosin HCl (Tamsulosin Hcl 0.4 Mg Capsule) 0.4 mg PO DAILY [facility] Last Admin: 01/15/21 10:42 Dose: 0.4 mg Documented by: ANITRA Trazodone HCl (Trazodone Hcl 100 Mg Tablet) 100 mg PO BEDTIME PRN PRN Reason: insomnia Last Admin: 01/13/21 20:52 Dose: 100 mg Documented by: FAUSTO Labs CBC & Chem 7: 01/13/21 05:48 01/14/21 06:20 Microbiology Microbiology Results: Microbiology 01/12/21 17:48 Blood Culture - Preliminary Blood - Venous No growth after 48 hours. 01/12/21 17:47 Blood Culture - Preliminary Blood - Venous No growth after 48 hours. Assessment and Plan (1) Stroke due to stenosis of carotid artery: Status: Acute (2) BRENNA (acute kidney injury): Status: Acute Assessment and Plan: 65-year-old with past medical history of CAD status post IA, bipolar disorder, hypertension who presents to the hospital with left-sided weakness found to have acute to subacute CVA # left-sided weakness possible CVA Neurologically remains stable, no new neuro deficit, persistent Mild left-sided weakness on examination, CT scan shows possible subacute or chronic right frontal infarction ?? MRI showed subacute right frontal infarction, carotid ultrasound showed right internal carotid artery critical occlusion and left internal carotid 50-79% stenosis ?? continue statin, aspirin, and Plavix ?? Seen by physical therapy they recommend home service ?? Case discussed with Dr. Butterfield he ordered CTA head and neck, awaiting result further treatment plan as per vascular surgeon #? BRENNA - creatinine normalized, unclear etiology, likely pre renal,improved with ivf? , will DC IV fluid # history of IA - continue home medications including aspirin, Plavix and statin # hypertension - BP elevated this morning will resume home dose of Norvasc, and continue beta-blockers and nitrates # history of bipolar disorder - Continue home medications , no behavioral issues noted # chest x-ray showed atelectasis/possible infiltrate patient asymptomatic with no fevers, no shortness of breath, no cough, stable oxygenation encourage incentive spirometry, no pneumonia DVT prophylaxis:? On Lovenox Quality Stroke Does the patient have a stroke diagnosis?: No VTE Prior VTE?: No VTE Risk Level:: Medical - moderate - high VTE Device Contraindication: Treatment Not Indicated VTE Drug Contraindication: N/A - Med Ordered
[2021-01-16] VITALS: BP 143/80; PULSE 65; RESP 18; TEMP 36.2; O2SAT 96
[2021-01-16 04:00] VITALS: BP 139/71; PULSE 62; RESP 18; TEMP 36.4; O2SAT 94
[2021-01-16 08:00] VITALS: BP 120/70; PULSE 73; RESP 18; TEMP 36.7; O2SAT 94
[2021-01-16] MEDS: Enoxaparin Sodium 40 MG/0.4 ML SYRINGE SUBCUT (08:00)
[2021-01-16 11:08] VITALS: BP 150/77; PULSE 73
[2021-01-16] MEDS: Isosorbide Mononitrate 30 MG TAB.ER.24H PO (11:08)
[2021-01-16] MEDS: buPROPion HCl XL 300 MG TAB.ER.24H PO (11:08)
[2021-01-16] MEDS: Tamsulosin HCL 0.4 MG CAPSULE PO (11:08)
[2021-01-16] MEDS: QUEtiapine Fumarate 200 MG TABLET PO (11:09)
[2021-01-16] MEDS: Atorvastatin Calcium 80 MG TABLET PO (11:09)
[2021-01-16] MEDS: FLUoxetine HCl 20 MG CAPSULE 40 MG PO (11:09)
[2021-01-16] MEDS: Clopidogrel Bisulfate 75 MG TABLET PO (11:09)
[2021-01-16 11:10] VITALS: BP 150/77; PULSE 73
[2021-01-16] MEDS: Aspirin Enteric Coated 81 MG TABLET.DR PO (11:10)
[2021-01-16] MEDS: amLODIPine Besylate 5 MG TABLET PO (11:10)
[2021-01-16] MEDS: Metoprolol Tartrate 25 MG TABLET PO (11:10)
[2021-01-16] MEDS: Lidocaine 4 % Patch ADH..PATCH 1 PATCH TRANSDERMA (11:11)
[2021-01-16] MEDS: lamoTRIgine 100 MG TABLET PO (11:11)
--- NOTE | 2021-01-16 11:23 | P.DS_ITS ---
DS: Providers Provider Date of Service: 01/16/21 Date of admission: 01/12/21 21:07 Primary care physician: Balaji Mayo MD Consults: 01/12/21 21:16 Consult to Neurology Routine Consulting Provider: [facility] Reason for consultation: Acute vs subacute stroke Has provider been notified: Yes 01/14/21 15:07 Consult to Vascular Surgery Routine Consulting Provider: Asim Butterfield Reason for consultation: Occlusion right internal carotid/50-79 left internal carotid subacute cva Has provider been notified: No DS: Diagnosis Discharge Diagnosis (1) Stroke due to stenosis of carotid artery: Status: Acute (2) BRENNA (acute kidney injury): Status: Acute DS: Summary Hospital Course Hospital Course: History of presenting illness Chief Complaint: left sided weakness This is a 65-year-old male with past medical history of hypertension, CAD status post NC, bipolar disorder, and reports history of CVA earlier this year presented to the hospital with complaints of left-sided weakness.? Patient is very vague, unable to give good history but reports that his visiting nurse sent him to the hospital for noticed left-sided weakness.? Patient himself reports that he has baseline weakness of the left lower extremity but he feels that it has increased today.? This started around 6:00 a.m. and therefore by the time he arrived to the ED he did not qualify for tPA.? Patient denies any headache, no change in vision, no chest pain, no shortness of breath, no abdominal pain nausea or vomiting, no diarrhea constipation, no urinary symptoms and no lower extremity edema. On arrival to the ED patient hemodynamically stable with a blood pressure of 202/87, his other vitals are normal Labs are significant for WBC count of 10.7, hemoglobin of 12.7, BUN of 24, creatinine of 1.88 with a baseline of 1.[address] shows region of loss of rodriguez-white matter differentiation within the right precentral gyrus suggestive of acute to subacute infarct, no assistance of acute intracranial home Chest x-ray shows atelectasis versus infiltrate, Neurology was consulted, patient will be admitted for further evaluation in a.m. Hospital course 65-year-old with past medical history of CAD status post NC, bipolar disorder, hypertension who presents to the hospital with left-sided weakness found to have subacute CVA, patient left-sided weakness has improved to his baseline he has been continued on statin, aspirin and Plavix CT scan shows possible subacute to chronic right frontal infarction, MRI showed subacute right frontal infarction, carotid ultrasound showed right internal carotid artery Occlusion and moderate, hemodynamically significant stenosis of the left internal carotid artery 50-79%, patient seen by vascular surgery and had a CTA head and neck that showed occlusion of right internal carotid artery and 50% stenosis of left side, Dr. Butterfield recommend 2 week follow-up with him since patient remains hemodynamically stable he is being discharged home on all of his baseline medication. Patient on admission noted to have acute renal failure likely pre renal patient treated with IV fluids renal function returned to baseline In regard to his chronic medical issues including history of coronary artery disease, hypertension and bipolar disorder he has been continued on all home medication. Time Spent with Patient Time attestation: Total time spent providing and/or coordinating discharge services: Discharge coordination time: Greater than 30 minutes Quality: Stroke Does the patient have a stroke diagnosis?: Yes Reason for No Anti-thrombotic at DC: N/A - Med Ordered Reason for No Anticoagulant at DC: N/A - Med Ordered Reason Not Initiating IV-Tpa: Drug treatment not indicated Reason for No Anti-thrombotic by Day Two: N/A - Med Ordered Reason for No Statin at DC: N/A - Med Ordered Physical Exam Vital Signs: Vital Signs: Last Vital Signs Temp 98.1 F 01/16/21 08:00 Pulse 73 01/16/21 11:10 Resp 18 01/16/21 08:00 BP 150/77 H 01/16/21 11:10 Pulse Ox 94 01/16/21 08:00 Body Mass Index 33.0 General alert oriented x3, no acute distress.? Neck? supple no JVD. CVS? regular rate rhythm, Respiratory lungs clear to auscultation, no respiratory distress, no wheeze, no rhonchi. Gastrointestinal abdomen soft, nontender, bowel sounds audible Extremities no edema. Neuro? 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 01/12/21 17:47 Blood Culture - Preliminary Blood - Venous No growth after 48 hours. Discharge Plan Discharge Patient Disposition: Home Health Service Discharge Diagnosis: Subacute CVA Bilateral carotid stenosis BRENNA Hypertension Referrals: [facility] [Outside] - 1 Week Balaji Mayo MD [Primary Care Provider] - 1 Week Discharge Medications: Continued fluoxetine 40 mg capsule 1 cap PO DAILY RF: 0 bupropion HCl 150 mg tablet sustained-release 12 hr 1 tab PO BID RF: 0 atorvastatin 80 mg tablet 1 tab PO QAM RF: 0 isosorbide mononitrate 30 mg tablet extended release 24 hr 1 tab PO DAILY RF: 0 clopidogrel 75 mg tablet 1 tab PO DAILY RF: 0 amlodipine 5 mg tablet 1 tab PO DAILY RF: 0 tamsulosin 0.4 mg capsule 1 cap PO DAILY RF: 0 trazodone 100 mg tablet 2 tab PO BEDTIME PRN (Reason: Insomnia) RF: 0 lidocaine 5 % adhesive patch,medicated 1 patch topical DAILY RF: 0 lamotrigine 100 mg tablet 1 tab PO BID RF: 0 metoprolol tartrate 25 mg tablet 1 tab PO BID RF: 0 quetiapine 400 mg tablet extended release 24 hr 1 tab PO BEDTIME RF: 0 nitroglycerin 0.4 mg tablet, sublingual 0.4 mg sublingual USEASDIRECTD PRN (Reason: Chest Pain) RF: 0 Discharge Orders: Discharge Order (Routine); Ordered 01/16/21 Ordered By: Aditya Calixto Diet: low fat, low cholesterol Activity on Discharge: As tolerated Stand Alone Forms: Patient Portal Discharge page Activity Restrictions/Additional Instructions: There is concern of carotid blockage please see Dr. Butterfield in follow-up in approximately 2 weeks time. You should already have an appointment if not please call my office at [phone] Care Plan Goals: Continue all home medications as before Health Concerns: Hypertension, hyperlipidemia and carotid artery stenosis Plan of Treatment: Outpatient follow-up with primary care physician in next 1-2 weeks outpatient follow-up with Dr. Butterfield in 2 weeks Assessment: as above
[2021-01-16 12:00] VITALS: BP 148/81; PULSE 69; RESP 15; TEMP 35.7; O2SAT 98
--- NOTE | 2021-01-16 12:57 | MHC.CM.PN ---
PT CLEARED TO DC HOME TODAY WITH RESUMPTION OF [facility]PPORT AND [facility]. PER NOTES, [facility] IS AVAILABLE TO TRANSPORT PT HOME, HOWEVER PT REPORTS HIS BROTHER CAN TRANSPORT AND HAS THE KEYS TO PTS HOME. CM CALLED [facility] ([phone]) AND SPOKE TO ADJUSTER ELECTRICAL CONTACTSREED CLEANER, JOHN. SHE WAS INFORMED OF PTS DC AND PLAN FOR PTS BROTHER TO TRANSPORT. PADMINI ALSO CONTACTED PTS BROTHER/HCP, ROSANA ([phone]) WHO CONFIRMED HE WOULD BE TRANSPORTING PT [place]. ROSANA ASKS THAT HE BE CONTACTED WHEN THE PT IS READY TO LEAVE.
== END 2021-01-16 15:08 | disposition home health service (06) | DRG 65 ==
LOC: HO.ED 19:39 → HO.EDOVER 21:13 → HO.IMC 21:22
PROVIDERS: Nurse Practitioner Family; Admitting Provider Internal Medicine; Emergency Provider Emergency Medicine Emergency Medical Services; PCP Family Medicine; Visit Provider Hospitalist
DX: I63.233 Cerebral infarction due to unspecified occlusion or stenosis of bilateral carotid arteries (principal); N17.9 Acute kidney failure, unspecified; G81.94 Hemiplegia, unspecified affecting left nondominant side; R29.701 NIHSS score 1; F31.9 Bipolar disorder, unspecified; I25.10 Atherosclerotic heart disease of native coronary artery without angina pectoris; I10 Essential (primary) hypertension; F17.210 Nicotine dependence, cigarettes, uncomplicated; Z20.822 Contact with and (suspected) exposure to COVID-19; Z71.6 Tobacco abuse counseling; I25.2 Old myocardial infarction; Z79.02 Long term (current) use of antithrombotics/antiplatelets; Z79.899 Other long term (current) drug therapy
CPT/HCPCS: 0241U; 36415; 70450; 70496; 70498; 70551; 71045; 80048; 80061; 80076; 81001; 82077; 82550; 82947; 83605; 83735; 84100; 84443; 84484; 85025; 87040; 93005; 93880; 93971; 96361; 96365; 96366; 96367; 97110; 97161; 97166; 97535; 99284; 99285; 99291; C1758; J0456; J0696; J1650; Q9967

== ENCOUNTER → 2021-01-28 15:42 | Outpatient (BNVA) | payer MEDICARE, MEDICAID, SELFPAY | PROVIDERS: PCP Family Medicine; Referring Provider Family Medicine; Visit Provider Surgery Vascular Surgery | DX: Z48.812 Encounter for surgical aftercare following surgery on the circulatory system (principal); I63.239 Cerebral infarction due to unspecified occlusion or stenosis of unspecified carotid artery; R51.9 Headache, unspecified; I10 Essential (primary) hypertension; I21.9 Acute myocardial infarction, unspecified; F17.290 Nicotine dependence, other tobacco product, uncomplicated; Z88.8 Allergy status to other drugs, medicaments and biological substances; Z91.018 Allergy to other foods | CPT/HCPCS: 99212 ==

== ENCOUNTER 2021-06-09 22:08 | Emergency (ER) | payer MEDICARE, MEDICAID, SELFPAY ==
--- NOTE | 2021-06-09 | ECG_ITS ---
Test Reason : fall Blood Pressure : / mmHG Vent. Rate : 056 BPM Atrial Rate : 056 BPM P-R Int : 170 ms QRS Dur : 094 ms QT Int : 458 ms P-R-T Axes : 034 -20 005 degrees QTc Int : 441 ms Sinus bradycardia Otherwise normal ECG When compared with ECG of 12-JAN-2021 17:20, T wave inversion no longer evident in Anterior leads Referred By: Tank Mayfield Electronically Signed By:JULIOCESAR HAILE MD
--- NOTE | ~2021-06-09 | CT_ITS ---
EXAMINATION: CT ANGIOGRAM ABDOMEN AND PELVIS CLINICAL INFORMATION: Aortic aneurysm COMPARISON: CTA abdomen pelvis 09/16/2018 TECHNIQUE: Multiple axial images were obtained through the abdomen and pelvis following the administration of 80 mL of Omnipaque 350 intravenous contrast. Images were reviewed on a dedicated 3-D workstation. This CT examination was performed using dose optimization techniques as appropriate, variously including the following: *Automated exposure control *Adjustment of mA and/or kV according to patient size (this includes techniques or standardized protocols for targeted exams where dose is matched to indication/reason for exam; i.e. extremities or head) *Use of iterative reconstruction technique DLP: 877 mGy-cm VASCULAR FINDINGS: The descending thoracic aorta demonstrates marked noncalcified thrombus/plaque posteriorly. The upper abdominal aorta is of normal caliber. The celiac has been arcuate proximal stenosis. The SMA is patent. The DONNA origin is not patent. There is a tight ostial right renal artery stenosis present (see mcbride image). A left renal stent is present and patent. There is an infrarenal abdominal aortic aneurysm present with maximal dimension of 4.6 cm (6:450), previously 4.2 cm (prior 4:65). The aneurysm begins about 4 cm below the level of the renal arteries and is about 7.4 cm in length. Marked mural thrombus is present in the aneurysm. The aortic bifurcation is patent. There is an area of at least 50% stenosis in the left common iliac artery. The right common iliac artery has mild disease without significant stenosis. Bilateral external iliac artery disease is present, right greater than left. Common femoral arteries are patent. Femoral bifurcations are patent. NONVASCULAR FINDINGS: LUNG BASES: Bibasilar atelectasis is present. LIVER, GALLBLADDER, AND BILIARY TREE: The liver is normal in size, shape, and attenuation. No focal hepatic lesion or biliary ductal dilatation is present. The gallbladder is unremarkable with no evidence of radiopaque gallstones, gallbladder wall thickening, or obvious pericholecystic inflammatory changes. PANCREAS: Unremarkable. SPLEEN: Unremarkable. ADRENAL GLANDS: There is slight thickening of the left adrenal gland, unchanged. KIDNEYS AND URETERS: The kidneys are normal in size, shape, and attenuation. No hydronephrosis, hydroureter, or calculi seen. No perinephric stranding. BLADDER: Unremarkable. GASTROINTESTINAL TRACT: The small and large bowel are unremarkable. The appendix is unremarkable. ABDOMINAL WALL: No significant hernia is appreciated. Small inguinal hernias are seen containing only fat. LYMPH NODES: Normal. PELVIC VISCERA: No retroperitoneal lymphadenopathy. OSSEOUS STRUCTURES: Mild degenerative changes present in the spine, predominantly lower thoracic. No bony destructive lesions seen. CT/CT angio abdomen pelvis IMPRESSION: * Infrarenal abdominal aortic aneurysm with maximal dimension has increased from 4.2 to 4.6 cm since 2019. * Left renal artery stent is patent. There is a tight right renal ostial stenosis. Fleischner guidelines were followed.
--- NOTE | ~2021-06-09 | XR_ITS ---
EXAMINATION: XR LUMBOSACRAL SPINE CLINICAL INFORMATION: Fall. Pain. COMPARISON: CT scan abdomen and pelvis 12/17/2018 TECHNIQUE: Three views of the lumbosacral spine. FINDINGS: No fracture. No dislocation. Vertebrae have normal height and alignment. There is degenerative spondylosis. Flowing bridging osteophytes of lower thoracic spine. Small anterior vertebral endplate spurs of the lumbar vertebrae. Moderate facet joint arthrosis at the lower lumbar spine. No spondylolysis or spondylolisthesis. Increased size of abdominal aortic aneurysm measuring 5.3 cm AP dimension. Aneurysm measured 4.[address] scan 09/16/2018. Vascular stents in the region of the left renal artery origin. Moderate to large volume of stool throughout colon. Nonobstructive bowel pattern. XR/XR lumbar spine 2-3V IMPRESSION: 1. No acute abnormality of the lumbar spine. 2. Multilevel degenerative spondylosis of lumbar spine. 3. Increasing size of abdominal aortic aneurysm measuring 5.3 cm AP. Consider vascular consultation and follow-up every 6 months.
--- NOTE | ~2021-06-09 | CT_ITS ---
EXAMINATION: CT HEAD WITHOUT CONTRAST CLINICAL INFORMATION: Fall. Confusion. COMPARISON: 01/12/2021 TECHNIQUE: Contiguous axial imaging was performed from the skull base to vertex without intravenous administration of contrast. This CT examination was performed using dose optimization techniques as appropriate, variously including the following: *Automated exposure control *Adjustment of mA and/or kV according to patient size (this includes techniques or standardized protocols for targeted exams where dose is matched to indication/reason for exam; i.e. extremities or head) *Use of iterative reconstruction technique DLP: 838 mGy-cm FINDINGS: There is no evidence of acute intracranial hemorrhage or territorial infarction. No abnormal mass effect or midline shift is seen. No extra-axial fluid collections are identified. The ventricles are normal in size. Chronic small right frontal lobe infarct involving the motor cortex. Mild chronic white matter small vessel ischemic changes. There are a few scattered coarse calcifications within the subarachnoid spaces of the bilateral frontoparietal lobes which are chronic and dystrophic, possibly postinflammatory. The osseous structures and soft tissues are normal. The mastoid air cells and visualized portions of the paranasal sinuses are well aerated. CT/CT head/brain wo con IMPRESSION: No acute intracranial pathology. Chronic small infarct involving the right precentral gyrus. Mild chronic white matter small ischemic changes.
[2021-06-09 22:15] VITALS: BP 144/90; BP 150/67; PULSE 57; PULSE 60; RESP 16; TEMP 36.8; O2SAT 94; O2SAT 95; BMI 32.6
[2021-06-09 22:20] VITALS: PULSE 55; RESP 16; O2SAT 93
--- NOTE | 2021-06-09 22:20 | ED_ITS ---
HPI - Fall General Chief Complaint: Fall Stated Complaint: back pain s/p fall (-LOC +Thinners) Time Seen by Provider: 06/09/21 22:19 Related Data Home Medications Medication Instructions Recorded Confirmed amlodipine 5 mg tablet 1 tab PO DAILY 01/12/21 01/13/21 atorvastatin 80 mg tablet 1 tab PO QAM 01/12/21 01/13/21 bupropion HCl 150 mg tablet,12 hr 1 tab PO BID 01/12/21 01/13/21 sustained-release clopidogrel 75 mg tablet 1 tab PO DAILY 01/12/21 01/13/21 fluoxetine 40 mg capsule 1 cap PO DAILY 01/12/21 01/13/21 isosorbide mononitrate 30 mg 1 tab PO DAILY 01/12/21 01/13/21 tablet,extended release 24 hr lamotrigine 100 mg tablet 1 tab PO BID 01/12/21 01/13/21 lidocaine 5 % topical patch 1 patch TOPICAL DAILY 01/12/21 01/13/21 metoprolol tartrate 25 mg tablet 1 tab PO BID 01/12/21 01/13/21 quetiapine 400 mg tablet,extended 1 tab PO BEDTIME 01/12/21 01/13/21 release 24 hr tamsulosin 0.4 mg capsule 1 cap PO DAILY 01/12/21 01/13/21 trazodone 100 mg tablet 2 tab PO BEDTIME PRN 01/12/21 01/13/21 nitroglycerin 0.4 mg sublingual 0.4 mg SUBLINGUAL USEASDIRECTD PRN 01/13/21 01/13/21 tablet Allergies Allergy/AdvReac Type Severity Reaction Status Date / Time clozapine [From Clozaril] Allergy Unknown RASH Verified 01/28/21 15:42 hydroxyzine [From VISTARIL] Allergy Unknown UNKNOWN Verified 01/28/21 15:42 menthol [From Antihistamine] Allergy Unknown RASH Verified 01/28/21 15:42 nicotine [Nicotine] Allergy Unknown GUM- MAKES Verified 01/28/21 15:42 SICK TO STOMACH nut - unspecified [nut] Allergy Unknown SWELLING Verified 01/28/21 15:42 From Antihistamine Allergy Unknown RASH Uncoded 01/12/21 02:28 [facility] Past Medical History Medical History Arthritis Hypertension Myocardial infarct Psychiatric diagnosis Surgical History No significant past surgical history Social History Social History Household Members: None Housing: Apartment Do you presently have visiting nurse or other home services: Yes Patient Tobacco Use Status: Current everyday Tobacco user Tobacco use type: Cigar Advance Directives: No service: No Physical Exam Vital Signs: Vital Signs: Last Vital Signs Temp 98.2 F 06/09/21 22:15 Pulse 55 06/09/21 22:20 Resp 16 06/09/21 22:20 BP 150/67 H 06/09/21 22:15 Pulse Ox 93 06/09/21 22:20 BMI result Body Mass Index 32.6 Discharge Plan Discharge Prescriptions: No Action fluoxetine 40 mg capsule 1 cap PO DAILY 0RF bupropion HCl 150 mg tablet sustained-release 12 hr 1 tab PO BID 0RF atorvastatin 80 mg tablet 1 tab PO QAM 0RF isosorbide mononitrate 30 mg tablet extended release 24 hr 1 tab PO DAILY 0RF clopidogrel 75 mg tablet 1 tab PO DAILY 0RF amlodipine 5 mg tablet 1 tab PO DAILY 0RF tamsulosin 0.4 mg capsule 1 cap PO DAILY 0RF trazodone 100 mg tablet 2 tab PO BEDTIME PRN (Reason: Insomnia) 0RF lidocaine 5 % adhesive patch,medicated 1 patch topical DAILY 0RF lamotrigine 100 mg tablet 1 tab PO BID 0RF metoprolol tartrate 25 mg tablet 1 tab PO BID 0RF quetiapine 400 mg tablet extended release 24 hr 1 tab PO BEDTIME 0RF nitroglycerin 0.4 mg tablet, sublingual 0.4 mg sublingual USEASDIRECTD PRN (Reason: Chest Pain) 0RF Rx Instructions: Dissolve1 tablet under the tongue every 5 minutes for chest pain
--- NOTE | 2021-06-09 22:39 | PC.NURSE ---
pt off to XR
[2021-06-09] MEDS: 0.9 % Sodium Chloride 1,000 ML 999 ML IV (22:53)
--- NOTE | 2021-06-09 22:53 | PC.NURSE ---
pt back from XR fluids started per MAR
[2021-06-09 23:44] LABS: MANUAL DIFF FLAG NO
[2021-06-09 23:45] LABS: Basophils Absolute Auto 0.1 X10*3/uL (0.0-0.2); Basophils Percent Auto 0.8 % (0-2); Eosinophils Absolute Auto 0.6 X10*3/uL (0.0-0.4); Eosinophils Percent Auto 5.7 % (0-4); Hematocrit 36.5 % (42.0-52.0); Hemoglobin 11.9 g/dl (14.0-18.0); Imm Gran Abs Auto 0.06 X10*3/uL (0.00-0.03); Imm Gran Pct Auto 0.6 % (0.0-0.4); Lymphocytes Absolute Auto 3.3 X10*3/uL (1.2-4.9); Lymphocytes Percent Auto 33.3 % (20-40); Mean Corpuscular HGB Conc 32.6 g/dl (31.0-36.0); Mean Corpuscular Hemoglobin 29.5 pg (27.0-33.0); Mean Corpuscular Volume 90.6 fL (80.0-98.0); Mean Platelet Volume 10.2 fL (9.4-12.4); Monocytes Absolute Auto 0.9 X10*3/uL (0.1-1.2); Monocytes Percent Auto 9.1 % (2-11); Neutrophils Percent Auto 50.5 % (45-73); Platelet Count 182 X10*3/uL (160-400); Red Blood Count 4.03 X10*6/uL (4.60-5.80); Red Cell Distribution Width 14.1 % (11.0-16.0)
[2021-06-09] MEDS: iohexoL 350 MG/ML 100 ML INFUS..BTL 80 ML IV (23:45)
[2021-06-10] VITALS: BP 163/75; PULSE 58; RESP 12; O2SAT 96
[2021-06-10 00:01] LABS: COVID-19 Test Negative (Negative); IDNOW Serial# 9DD0AD1C
--- NOTE | 2021-06-10 00:06 | PC.NURSE ---
BP 163/75 ([place]) aware no new orders at this time
[2021-06-10 00:09] LABS: Alanine Aminotransferase 16 U/L (0-40); Albumin Level 3.1 g/dL (3.5-5.0); Alkaline Phosphatase 83 U/L (39-117); Anion Gap 9 (12-20); Aspartate Amino Transferase 16 U/L (5-37); Bilirubin Total 0.2 mg/dL (0.0-1.0); Blood Urea Nitrogen 26 mg/dL (9-16); Calcium 7.9 mg/dL (8.4-10.2); Carbon Dioxide 25 mmol/L (22-29); Chloride 108 mmol/L (96-108); Estimated Glomerular Filt Rate 41; Glucose Random 91 mg/dL (60-115); Potassium 3.8 mmol/L (3.3-5.1); Sodium 138 mmol/L (135-145); Total Protein 5.5 g/dL (6.5-8.0)
--- NOTE | 2021-06-10 00:24 | ED.GENADULT ---
HPI - General Adult General Chief complaint: Fall Stated complaint: back pain s/p fall (-LOC +Thinners) Time Seen by Provider: 06/09/21 22:19 Source: patient Mode of arrival: EMS Limitations: no limitations History of Present Illness HPI narrative: Patient came by ambulance for multiple falls in last 1 week fell about 4 times, last fall was 2 days ago states he slipped on the ice in the driveway patient walks with cane and has difficulty in keeping the balance patient complaining of increased back pain. Patient does have arthritis and bilateral hip dysplasia planning for hip replacement in future, lives alone and walks with a cane. 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 Related Data Home Medications Medication Instructions Recorded Confirmed amlodipine 5 mg tablet 1 tab PO DAILY 01/12/21 01/13/21 atorvastatin 80 mg tablet 1 tab PO QAM 01/12/21 01/13/21 bupropion HCl 150 mg tablet,12 hr 1 tab PO BID 01/12/21 01/13/21 sustained-release clopidogrel 75 mg tablet 1 tab PO DAILY 01/12/21 01/13/21 fluoxetine 40 mg capsule 1 cap PO DAILY 01/12/21 01/13/21 isosorbide mononitrate 30 mg 1 tab PO DAILY 01/12/21 01/13/21 tablet,extended release 24 hr lamotrigine 100 mg tablet 1 tab PO BID 01/12/21 01/13/21 lidocaine 5 % topical patch 1 patch TOPICAL DAILY 01/12/21 01/13/21 metoprolol tartrate 25 mg tablet 1 tab PO BID 01/12/21 01/13/21 quetiapine 400 mg tablet,extended 1 tab PO BEDTIME 01/12/21 01/13/21 release 24 hr tamsulosin 0.4 mg capsule 1 cap PO DAILY 01/12/21 01/13/21 trazodone 100 mg tablet 2 tab PO BEDTIME PRN 01/12/21 01/13/21 nitroglycerin 0.4 mg sublingual 0.4 mg SUBLINGUAL USEASDIRECTD PRN 01/13/21 01/13/21 tablet Allergies Allergy/AdvReac Type Severity Reaction Status Date / Time clozapine [From Clozaril] Allergy Unknown RASH Verified 01/28/21 15:42 hydroxyzine [From VISTARIL] Allergy Unknown UNKNOWN Verified 01/28/21 15:42 menthol [From Antihistamine] Allergy Unknown RASH Verified 01/28/21 15:42 nicotine [Nicotine] Allergy Unknown GUM- MAKES Verified 01/28/21 15:42 SICK TO STOMACH nut - unspecified [nut] Allergy Unknown SWELLING Verified 01/28/21 15:42 From Antihistamine Allergy Unknown RASH Uncoded 01/12/21 02:28 Review of Systems Review of Systems: Yes all other systems are reviewed and are negative [facility] Past Medical History Medical History Arthritis Hypertension Myocardial infarct Psychiatric diagnosis Surgical History No significant past surgical history Social History Social History Household Members: None Housing: Apartment Do you presently have visiting nurse or other home services: Yes Patient Tobacco Use Status: Current everyday Tobacco user Tobacco use type: Cigar Advance Directives: No service: No Physical Exam ED Vital Signs: Vital Signs - 24 hr 06/09/21 22:15 06/09/21 22:20 06/10/21 00:00 Temperature 98.2 F Pulse Rate 57 55 58 Respiratory Rate 16 16 12 Blood Pressure 150/67 H 163/75 H Pulse Oximetry 94 93 96 BMI result Body Mass Index 32.6 Appearance: Alert. Oriented X3. No acute distress. In unkept condition Eyes: No pallor or icterus ENT: Pharynx normal. Oral Mucosa moist Neck: Normal inspection. Neck supple. CVS: Normal heart rate and rhythm. Pulses normal. Respiratory: No respiratory distress. Equal air entry bilateral, no wheezing/rales/rhonchi Abdomen: Soft and nontender. Bowel sounds are present, no mass palpable, no CVA tenderness Skin: Skin warm and dry. Normal skin color. Normal skin turgor. Extremities: No lower extremity edema. No calf tenderness back: Diffuse tenderness L2-L4 SLR negative bilateral no motor weakness Neuro: Oriented X 3. No motor deficit. No sensory deficit.No cerebellar signs , cranial nerves II-XII intact Medical Decision Making MDM Narrative Medical decision making narrative: Patient with chronic back problems with unsteady gait lives alone falling multiple times unsafe to go home. CT scan of the abdomen showed aortic aneurysm which is slightly increased in size from 4.2-4.6.. Will consult physical therapy and Case Management for rehab placement Lab Data Lab results reviewed: Yes I reviewed the patient's lab results. Result diagrams: 06/09/21 23:39 06/09/21 23:39 Labs: Lab Results 06/09/21 06/09/21 06/09/21 Range/Units 23:39 23:39 23:39 WBC 10.0 (4.8-10.8) X10*3/uL RBC 4.03 L (4.60-5.80) X10*6/uL Hgb 11.9 L (14.0-18.0) g/dl Hct 36.5 L (42.0-52.0) % MCV 90.6 (80.0-98.0) fL MCH 29.5 (27.0-33.0) pg MCHC 32.6 (31.0-36.0) g/dl RDW 14.1 (11.0-16.0) % Plt Count 182 (160-400) X10*3/uL MPV 10.2 (9.4-12.4) fL Immature Gran % (Auto) 0.6 H (0.0-0.4) % Neut % (Auto) 50.5 (45-73) % Lymph % (Auto) 33.3 (20-40) % [place] % (Auto) 9.1 (2-11) % Eos % (Auto) 5.7 H (0-4) % Baso % (Auto) 0.8 (0-2) % Lymph # (Auto) 3.3 (1.2-4.9) X10*3/uL [place] # (Auto) 0.9 (0.1-1.2) X10*3/uL Eos # (Auto) 0.6 H (0.0-0.4) X10*3/uL Baso # (Auto) 0.1 (0.0-0.2) X10*3/uL Abs Immat Gran (auto) 0.06 H (0.00-0.03) X10*3/uL Absolute Neuts (auto) 5.0 (2.0-8.3) x10*3/uL Absolute Nucleated RBC 0.000 (0.0-0.012) X10*3/uL Nucleated RBC % (auto) 0.0 (0.0-0.2) /100WBC Sodium 138 (135-145) mmol/L Potassium 3.8 (3.3-5.1) mmol/L Chloride 108 (96-108) mmol/L Carbon Dioxide 25 (22-29) mmol/L Anion Gap 9 L (12-20) BUN 26 H (9-16) mg/dL Creatinine 1.70 H (0.5-1.4) mg/dL Estim Creat Clear Calc 56.0 Estimated GFR 41 Random Glucose 91 (60-115) mg/dL Calcium 7.9 L (8.4-10.2) mg/dL Total Bilirubin 0.2 (0.0-1.0) mg/dL AST 16 (5-37) U/L ALT 16 (0-40) U/L Alkaline Phosphatase 83 (39-117) U/L Total Protein 5.5 L (6.5-8.0) g/dL Albumin 3.1 L (3.5-5.0) g/dL COVID-19 ([facility]) Negative (Negative) COVID-19 Clin Com See Note Discharge Plan Discharge Clinical Impression: Unsteady gait, Multiple falls, CKD (chronic kidney disease) Patient Disposition: Still a Patient Prescriptions: No Action fluoxetine 40 mg capsule 1 cap PO DAILY 0RF bupropion HCl 150 mg tablet sustained-release 12 hr 1 tab PO BID 0RF atorvastatin 80 mg tablet 1 tab PO QAM 0RF isosorbide mononitrate 30 mg tablet extended release 24 hr 1 tab PO DAILY 0RF clopidogrel 75 mg tablet 1 tab PO DAILY 0RF amlodipine 5 mg tablet 1 tab PO DAILY 0RF tamsulosin 0.4 mg capsule 1 cap PO DAILY 0RF trazodone 100 mg tablet 2 tab PO BEDTIME PRN (Reason: Insomnia) 0RF lidocaine 5 % adhesive patch,medicated 1 patch topical DAILY 0RF lamotrigine 100 mg tablet 1 tab PO BID 0RF metoprolol tartrate 25 mg tablet 1 tab PO BID 0RF quetiapine 400 mg tablet extended release 24 hr 1 tab PO BEDTIME 0RF nitroglycerin 0.4 mg tablet, sublingual 0.4 mg sublingual USEASDIRECTD PRN (Reason: Chest Pain) 0RF Rx Instructions: Dissolve1 tablet under the tongue every 5 minutes for chest pain
--- NOTE | 2021-06-10 00:32 | PC.NURSE ---
MD at bedside to discuss plan of care with pt MD suggesting rehab for pt due to weakness/increased falls. pt in agreement about plan for rehab at this time. pt has no questions or concerns.
[2021-06-10 00:36] LABS: Appearance Urine CLEAR; Color Urine YELLOW; Glucose Urine UA NEG (NEG); Leukocyte Esterase Urine NEG (NEG); Nitrite Urine NEG (NEG); Urine Blood NEG (NEG); Urine Ketones NEG (NEG); Urine Protein NEG (NEG-TRACE)
--- NOTE | 2021-06-10 00:45 | PC.NURSE ---
Med rec completed by this RN using pharmacy pick-up record. pt states he does not know what medications he takes as he has a visiting nurse who visits daily and administers his medications. pt states he took his home meds tonight.
[2021-06-10 02:00] VITALS: BP 135/64; PULSE 49; RESP 12; O2SAT 96
[2021-06-10 04:00] VITALS: PULSE 55; RESP 16; O2SAT 97
[2021-06-10 05:47] VITALS: BP 176/78; PULSE 50; RESP 12
[2021-06-10] MEDS: Tamsulosin HCL 0.4 MG CAPSULE PO (08:09)
[2021-06-10] MEDS: lamoTRIgine 100 MG TABLET PO (08:09)
[2021-06-10] MEDS: Atorvastatin Calcium 80 MG TABLET PO (08:09)
[2021-06-10] MEDS: Clopidogrel Bisulfate 75 MG TABLET PO (08:09)
[2021-06-10] MEDS: Isosorbide Mononitrate 30 MG TAB.ER.24H PO (08:09)
[2021-06-10] MEDS: QUEtiapine Fumarate 200 MG TABLET PO (08:09)
[2021-06-10] MEDS: buPROPion HCl XL 300 MG TAB.ER.24H PO (08:09)
[2021-06-10] MEDS: FLUoxetine HCl 20 MG CAPSULE 40 MG PO (08:09)
[2021-06-10] MEDS: amLODIPine Besylate 5 MG TABLET PO (08:09)
[2021-06-10 08:35] VITALS: BP 160/77; PULSE 50; RESP 16; O2SAT 96
--- NOTE | 2021-06-10 08:38 | PC.NURSE ---
Alert/oriented. Seen by PT, awaiting disposition. Reports chronic low back 12/01. Held AM Metoprolol for bradycardia, Mary Jane CALDERON made aware. Spoke to Uzma from [facility] contact [phone]
--- NOTE | 2021-06-10 10:00 | MHC.CM.ED ---
Received case management consult overnight. Patient came to ER after a fall. Work up essentially negative. Physical therapy eval completed. Short term rehab is recommended. Patient has a dog at home and is requesting to go home with services. Met with patient in regards to discharge planning. Patient lives alone, is suppposed to use a walker and is active with [facility] for half-way and behavioral health. PCP verified as Dr Mayo. Copy of HCP verified to be on file. Patient received all 3 Covid vaccines but doesn't remember which brand. [facility] is able to add physical therapy and occupational therapy to services. Patient will return home via chair van. Patient, Shadia DECKER and Colleen CALDERON aware. Continue to monitor for d/c needs.
== END 2021-06-10 10:00 | disposition home or self-care (01) ==
PROVIDERS: Emergency Provider Internal Medicine; PCP Family Medicine
DX: R26.81 Unsteadiness on feet (principal); Z91.81 History of falling; I12.9 Hypertensive chronic kidney disease with stage 1 through stage 4 chronic kidney disease, or unspecified chronic kidney disease; N18.9 Chronic kidney disease, unspecified; M54.50 Low back pain, unspecified; I25.2 Old myocardial infarction; F17.200 Nicotine dependence, unspecified, uncomplicated; Z20.822 Contact with and (suspected) exposure to COVID-19
CPT/HCPCS: 70450; 72100; 74174; 80053; 81003; 85025; 87635; 93005; 96360; 97162; 99285; Q9967

== ENCOUNTER 2021-07-21 13:44 | Outpatient (REF) | payer MEDICARE, MEDICAID, SELFPAY ==
--- NOTE | ~2021-07-21 | US_ITS ---
EXAMINATION: US EXTRACRANIAL CAROTID DUPLEX, BILATERAL CLINICAL INFORMATION: History of stroke and carotid artery stenosis. COMPARISON: Ultrasound carotid arteries 01/14/2021. TECHNIQUE: Real-time ultrasound and Doppler techniques (integrating B-mode 2-D vascular images, Doppler spectral analysis and color-flow Doppler imaging) were utilized to interrogate the extracranial carotid arteries, the vertebral arteries and proximal subclavian arteries bilaterally. The degree of stenosis is determined by criteria similar to NASCET. FINDINGS: Right Side: 1. There is moderate to advanced atherosclerotic plaque seen in the bifurcation/proximal ICA region. 2. The common carotid artery PSV proximally is 57.4 cm/s and distally 47.5 cm/s. 3. The internal carotid artery is occluded. 4. The proximal external carotid artery PSV is 608 cm/s, previously 626 cm/s. 5. The vertebral artery shows antegrade flow. 6. The subclavian artery waveforms are normal. Left Side: 1. There is mild atherosclerotic plaque seen in the bifurcation/proximal ICA region. 2. The common carotid artery PSV proximally is 130 cm/s and distally 140 cm/s. 3. The proximal internal carotid artery velocities are 112 cm/s systolic and 22.8 cm/s diastolic. 4. The proximal external carotid artery PSV is 256 cm/s, previously 261 cm/s. 5. The vertebral artery shows antegrade flow. 6. The subclavian artery waveforms are normal. US/US carotid duplex BI IMPRESSION: 1. Right: Persistent occlusion of the right internal carotid artery. High-grade stenosis of the right external carotid artery, similar to prior. 2. Left: Minimal, non-hemodynamically significant stenosis of the proximal left internal carotid artery corresponding to a 0-49% stenosis by velocity criteria. The degree of stenosis is overall decreased when compared to the 01/14/2021 carotid artery ultrasound. 3. Antegrade flow is identified involving both vertebral arteries.
== END 2021-07-21 13:45 | disposition home or self-care (01) ==
LOC: HO.US 13:44
PROVIDERS: Visit Provider Surgery Vascular Surgery
DX: I63.233 Cerebral infarction due to unspecified occlusion or stenosis of bilateral carotid arteries (principal)
CPT/HCPCS: 93880

== ENCOUNTER → 2021-08-02 09:39 | Outpatient (BNVA) | payer MEDICARE, MEDICAID, SELFPAY | PROVIDERS: PCP Family Medicine; Visit Provider Surgery Vascular Surgery | DX: I65.23 Occlusion and stenosis of bilateral carotid arteries (principal); M79.604 Pain in right leg; M79.605 Pain in left leg | CPT/HCPCS: 99212 ==

== ENCOUNTER 2021-11-03 15:05 | Emergency (ER) | payer MEDICARE, MEDICAID, SELFPAY ==
--- NOTE | ~2021-11-03 | XR_ITS ---
EXAMINATION: XR HIP, RIGHT CLINICAL INFORMATION: Fall COMPARISON: Previous x-ray January 2014 TECHNIQUE: Two views of the right hip and one view of the pelvis. FINDINGS: Bone alignment is normal. No fracture or dislocation is seen. There is arthritis of the right hip joint with joint space narrowing and osteophyte formation. The left hip joint is unremarkable. Bones of the pelvis are unremarkable. There is a curvilinear calcification seen to the left of the lower lumbar spine suggestive of a calcified aneurysm. CT of the abdomen and pelvis has been already been ordered for today. XR/XR hip RT w PEL1V IMPRESSION: No fracture or dislocation. Right hip arthritis. Abdominal aortic aneurysm. This will be better evaluated by CT scan.
--- NOTE | ~2021-11-03 | CT_ITS ---
EXAMINATION: NONCONTRAST HEAD CT NONCONTRAST CERVICAL SPINE CT INDICATION INFORMATION: Fall and head strike COMPARISON: Head CT 06/09/2021 TECHNIQUE: Separate noncontrast CT examinations of the head and cervical spine were performed. Coronal and sagittal images were created for each examination at the technologist workstation. This CT examination was performed using dose optimization techniques as appropriate, variously including the following: *Automated exposure control *Adjustment of mA and/or kV according to patient size (this includes techniques or standardized protocols for targeted exams where dose is matched to indication/reason for exam; i.e. extremities or head) *Use of iterative reconstruction technique DLP: 1561 mGy-cm FINDINGS: HEAD: No intra or extra-axial fluid collection, hemorrhage, or mass. No ventriculomegaly. No midline shift or herniation. Basal cisterns are patent. Choudhury-white matter differentiation is maintained. Small area of encephalomalacia in the right precentral and postcentral gyri compatible with remote infarct. Small focus of hypoattenuation compatible with a lacunar infarct in the right thalamus noted. Proportional prominence of the ventricles and sulcal spaces is consistent with mild volume loss. Patchy periventricular and deep white matter hypoattenuation is consistent with mild small vessel ischemic changes. No calvarial fracture or soft tissue abnormality. Mild mucosal thickening of left ethmoid air cells. Paranasal sinuses and mastoid air cells otherwise normally aerated. Status post right lens extraction. CERVICAL SPINE: Alignment: Normal. No subluxation. 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 No acute fracture. No prevertebral soft tissue swelling. Degenerative disc disease: Preserved intervertebral disc heights. Mild endplate proliferative change throughout the cervical spine and mild multilevel facet arthrosis. Other findings: No cervical lymphadenopathy. Visualized major salivary glands and thyroid gland are unremarkable. Visualized lung apices are clear. CT/CT cervical spine wo con IMPRESSION: 1. No intracranial hemorrhage or calvarial fracture. 2. No traumatic subluxation or acute cervical spine fracture. 3. Findings compatible with a remote prior small infarct in the right precentral and postcentral gyri and possible small prior right thalamic lacunar infarct.
--- NOTE | ~2021-11-03 | CT_ITS ---
EXAMINATION: CT CHEST, ABDOMEN AND PELVIS WITH CONTRAST CLINICAL INFORMATION: Epigastric/r-sided abdominal pain. Fall with right-sided rib pain.On plavix COMPARISON: Carotid ultrasound 07/21/2021 CT angiogram of the abdomen and pelvis 06/09/2021 CT angiogram head and neck 01/14/2021 TECHNIQUE: Multidetector volumetric imaging was performed from the thoracic inlet through the pubic symphysis following administration of 85 mL Omnipaque 350. Sagittal and coronal reformatted images were obtained on the technologist's workstation. This CT examination was performed using dose optimization techniques as appropriate, variously including the following: *Automated exposure control *Adjustment of mA and/or kV according to patient size (this includes techniques or standardized protocols for targeted exams where dose is matched to indication/reason for exam; i.e. extremities or head) *Use of iterative reconstruction technique DLP: 1324 mGy-cm FINDINGS: CHEST: Lung: No pulmonary nodules are seen. Dependent bibasilar atelectasis is present. Some right middle lobe scarring or atelectasis is present. No suspicious lung masses or consolidations are seen. Mediastinum: Calcific atherosclerotic changes are present in the aorta. Coronary stent may be present or marked coronary calcification in the left anterior descending artery. Of note, there is occlusion of the left subclavian artery shortly after its origin which was also seen on the 01/14/2021 study. There is partially visualized marked thrombus in the left carotid artery -the previous carotid ultrasound demonstrated that the carotid artery more distal is occluded. No mediastinal hemorrhage. No mediastinal or hilar lymphadenopathy. The descending thoracic aorta shows marked irregular noncalcific plaque. Pericardium/Pleura: No significant effusion. No pleural mass or thickening. Chest Wall/Axilla: No chest wall hematoma or displaced rib fractures are seen. ABDOMEN/PELVIS: Peritoneal Space: No significant free air or free fluid identified. Liver, Gallbladder, Biliary Tree: The liver is mildly enlarged at 18.4 cm demonstrating decreased attenuation suggestive of hepatic steatosis. No focal hepatic lesion or biliary ductal dilatation is present. The gallbladder is unremarkable with no evidence of radiopaque gallstones, gallbladder wall thickening, or obvious pericholecystic inflammatory changes. Pancreas: Unremarkable Spleen: Mild splenomegaly at 12.8 cm Adrenal Glands: Small nodules present in the left adrenal gland, unchanged from prior Kidneys and Ureters: The kidneys are normal in size, shape, and attenuation. Some tiny benign bilateral renal cysts are present which are not a worrisome finding. No suspicious solid masses. No hydronephrosis, hydroureter, or calculi seen. No perinephric stranding. Bladder: Unremarkable Gastrointestinal Tract: The small and large bowel are unremarkable aside from a few scattered colonic diverticula without diverticulitis. The appendix is unremarkable. Abdominal Wall: No significant hernia is appreciated. Bilateral small fat-containing inguinal hernias are seen. Lymph Nodes: No lymphadenopathy. Vascular: There is a infrarenal AAA which has increased in size since the prior study, previously measuring 4.7 x 4.5 cm in maximal transverse diameter now measuring 5.0 x 4.7 cm (13:54 compare prior 6:450). When measurements are made perpendicular to a center line, maximal dimension is 4.8 cm. The aneurysm ends at the aortic bifurcation with calcific atherosclerotic disease involving the iliofemoral vessels. The celiac and SMA are widely patent. The DONNA origin may not be present but the vessel fills via collaterals. Bilateral renal artery ostial disease is present with a patent stent on the left. The IVC appears unremarkable. PELVIC VISCERA: Mild BPH OSSEUS STRUCTURES: Mild degenerative changes are noted in the spine. No bony destructive lesions are seen. CT/CT abdomen pelvis w con IMPRESSION: * No evidence of a traumatic injury after the patient's fall. No rib fractures are seen. 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 Maximal dimension perpendicular to a center line is 4.8 cm. * Incidental findings as described above including hepatosplenomegaly with hepatic steatosis and mild BPH. Fleischner guidelines were followed.
[2021-11-03 15:16] VITALS: BP 133/82; PULSE 75; RESP 16; TEMP 37.2; O2SAT 95; O2SAT 97; BMI 31.3
--- NOTE | 2021-11-03 15:20 | ED_ITS ---
HPI - Fall General Chief Complaint: Fall Stated Complaint: fall Time Seen by Provider: 11/03/21 15:18 Source: patient and EMS Mode of arrival: EMS History of Present Illness HPI Narrative: 66-year-old male with a past medical history of HTN, arthritis, CO, carotid artery stenosis, on Plavix and ASA, brought in by EMS s/p mechanical fall at home this morning. Patient states he was getting out of bed and legs gave out, falling on right side, + head trauma and probable LOC, patient unclear. Reports persistent headache since incident and right-sided rib pain. Also reports low back pain. Reports multiple falls in the past couple weeks. Denies vision changes, neck pain, shortness of breath, abdominal pain, nausea/vomiting, weakness, lightheadedness. Denies symptoms prior to fall MD complaint: fall Onset (ago): hour(s) Related Data Home Medications Medication Instructions Recorded Confirmed atorvastatin 80 mg tablet 1 tab PO DAILY 01/12/21 11/03/21 bupropion HCl 150 mg tablet,12 hr 1 tab PO BID 01/12/21 11/03/21 sustained-release clopidogrel 75 mg tablet 1 tab PO DAILY 01/12/21 11/03/21 fluoxetine 40 mg capsule 1 cap PO DAILY 01/12/21 11/03/21 isosorbide mononitrate 30 mg 1 tab PO DAILY 01/12/21 11/03/21 tablet,extended release 24 hr lamotrigine 100 mg tablet 1 tab PO BID 01/12/21 11/03/21 metoprolol tartrate 25 mg tablet 0.5 tab PO BID 01/12/21 11/03/21 quetiapine 400 mg tablet,extended 1 tab PO BEDTIME 01/12/21 11/03/21 release 24 hr trazodone 100 mg tablet 2 tab PO BEDTIME PRN Insomnia 01/12/21 11/03/21 nitroglycerin 0.4 mg sublingual 0.4 mg sublingual USEASDIRECTD PRN 01/13/21 11/03/21 tablet Chest Pain amlodipine 2.5 mg tablet 2.5 mg PO BID 08/02/21 11/03/21 aspirin 81 mg tablet,delayed 1 tab PO DAILY 11/03/21 11/03/21 release fluticasone propionate 50 1 spray intranasal BID 11/03/21 11/03/21 mcg/actuation nasal spray,suspension lidocaine 5 % topical patch 1 patch topical DAILY 11/03/21 11/03/21 Allergies Allergy/AdvReac Type Severity Reaction Status Date / Time clozapine [From Clozaril] Allergy Unknown RASH Verified 08/02/21 09:52 hydroxyzine [From VISTARIL] Allergy Unknown UNKNOWN Verified 08/02/21 09:52 menthol [From Antihistamine] Allergy Unknown RASH Verified 08/02/21 09:52 nicotine [Nicotine] Allergy Unknown GUM- MAKES Verified 08/02/21 09:52 SICK TO STOMACH nut - unspecified [nut] Allergy Unknown SWELLING Verified 08/02/21 09:52 From Antihistamine Allergy Unknown RASH Uncoded 01/12/21 02:28 Review of Systems Review of Systems: Constitutional:No Fever, No Chills, No Fatigue, No Malaise ENT/Mouth: No Ear Pain, No Nasal Congestion, No Hoarseness, No sore throat, No Rhinorrhea, No Swallowing Difficulty Eyes: No Eye Pain, No Swelling, No Redness, No Vision Changes Cardiovascular: + Chest Wall Pain, No SOB, No Edema, No Palpitations Respiratory: No Cough, No Sputum, No Dyspnea Gastrointestinal: No Nausea, No Vomiting, No Diarrhea, No Constipation, No Abdominal pain Genitourinary: No Dysuria, No Urinary Frequency, No Hematuria, No Urinary Incontinence/retention Musculoskeletal: No joint pain, No Myalgias, No Joint Swelling Skin: No Skin Lesions, No rash Neuro: No Weakness, No Numbness, No Paresthesias, Unknown Loss of Consciousness, No Dizziness, + Headache, + head strike Yes all other systems are reviewed and are negative Neurologic: Denies Abnormal speech present [facility] Past Medical History Attestation statement: The following information was validated with the patient. Medical History Arthritis Hypertension Myocardial infarct Psychiatric diagnosis Surgical History No significant past surgical history Social History Social History Household Members: None Housing: Apartment Do you presently have visiting nurse or other home services: Yes Alcohol intake: current Alcohol intake frequency: a few times a week Patient Tobacco Use Status: Current everyday Tobacco user Tobacco use type: Cigar Smoked in Last 30 Days: Yes Use of substances other than those prescribed or required for medical reasons: No Advance Directives: No Advance Directives Information Provided: No service: No Physical Exam Vital Signs: Vital Signs: Last Vital Signs Temp 98.9 F 11/03/21 15:24 Pulse 75 11/03/21 15:24 Resp 16 11/03/21 15:24 BP 133/82 11/03/21 15:24 Pulse Ox 99 11/03/21 15:24 O2 Del Method 11/03/21 15:24 BMI result Body Mass Index 31.3 Const: General: cooperative, healthy appearing, no acute distress, alert and awake Orientation/consciousness: patient oriented x3 Limitations: no limitations HEENT: Other: + small erythematous area noted to left forehead Head: Yes normal to inspection Ears: hearing grossly normal bilaterally General nose exam: Normal external nose present Face and sinus: Yes normal facial exam Throat: Yes posterior oropharynx normal Eyes: General: appearance normal, both eyes and all related structures Pupils: Equal, round and reactive pupils present EOM: EOMs intact bilaterally Neck: Other: C-collar in place. No midline cervical spinous tenderness Neck: Yes normal visual inspection and Yes no meningeal signs Chest: Other: + right posterior lateral chest wall tenderness Chest palpation & inspection: normal inspection of the chest and no crepitus Resp: Effort & Inspection: normal respiratory effort and no respiratory distress Auscultation: clear to auscultation bilaterally, no crackles and no wheezes Cardio: Rate: regular rate Heart sounds: S1 normal heart sound present and S2 normal heart sound present GI: Inspection: Yes normal to inspection Palpation (GI): Soft to palpation, Tenderness to palpation present (GI) in the epigastrum and in the RLQ, no guarding and not rigid : General: Yes no CVA tenderness Back/Spine/Pelvis: Other: + lower lumbar midline spinous tenderness. No appreciable step-off or deformity. + right-sided low back MSK tenderness to palpation Back: no CVA ten derness Skin: Rashes: no rashes Wounds: no wounds Neuro: General: patient oriented x3, tone normal, moves all extremities, no meningeal signs, no focal motor deficits and CN's II-XI intact bilaterally Cranial nerves: Yes CN's II-XII intact bilaterally and Yes Equal, round and reactive pupils present Cognition (Neuro): normal cognition Speech: No Abnormal speech present Motor exam (neuro): 5/5 motor strength present throughout Coordination: [id number] test normal Romberg Test: Negative Extrem: Other: Right hip with noted tenderness. Pelvis stable. Full range of motion intact. Neurovascular intact distally. General: Yes normal to inspection Course Course Course Narrative: -1702--no leukocytosis. H&H stable. COVID-19 positive > patient reports he tested positive for COVID-19 on or Monday last week XR hip RT w PEL1V IMPRESSION: No fracture or dislocation. Right hip arthritis. Abdominal aortic aneurysm. This will be better evaluated by CT scan. (abdominal aortic aneurysm is known) -Acute on chronic BRENNA with a creatinine of 1.53. T bili and D bili mildly elevated. Initial troponin 7.5 > will obtain 3 hr repeat -1800--ED care transferred to [facility] pending UA, CT scans and repeat troponin. Anticipate PT/case management, dispo per results MDM - Fall MDM Narrative Medical decision making narrative: 66-year-old male with a past medical history of HTN, arthritis, CO, carotid artery stenosis, on Plavix and ASA, brought in by EMS s/p mechanical fall at home this morning. Patient states he was getting out of bed and legs gave out, falling on right side, + head trauma and probable LOC, patient unclear. Reports persistent headache since incident and right-sided rib pain. On exam vital signs stable, C-collar in place, lumbar midline spinous tenderness noted, right- sided posterior lateral rib and right-sided abdominal tenderness elicited. No rebound or guarding. No focal neuro deficits. Rule out ICH vs fractures vs in tra-abdominal injury/hematoma. Rule out metabolic abnormalities Plan: EKG, labs, UA, head/C-spine/chest/abdomen/pelvis CT, hip x-ray Differential Diagnosis Differential diagnosis: Likely fracture, concussion with loss of consciousness and concussion without loss of consciousness Medical Records Attestation: I reviewed the patient's medical records. Lab Data Attestation: I reviewed the patient's lab results. Result diagrams: 11/03/21 16:44 11/03/21 16:44 Labs: Lab Results 11/03/21 11/03/21 11/03/21 Range/Units 16:37 16:44 16:44 WBC 10.8 (4.8-10.8) X10*3/uL RBC 4.21 L (4.60-5.80) X10*6/uL Hgb 12.5 L (14.0-18.0) g/dl Hct 37.8 L (42.0-52.0) % MCV 89.8 (80.0-98.0) fL MCH 29.7 (27.0-33.0) pg MCHC 33.1 (31.0-36.0) g/dl RDW 14.0 (11.0-16.0) % Plt Count 168 (160-400) X10*3/uL MPV 11.2 (9.4-12.4) fL Immature Gran % (Auto) 0.5 H (0.0-0.4) % Neut % (Auto) 65.9 (45-73) % Lymph % (Auto) 18.9 L (20-40) % [place] % (Auto) 13.1 H (2-11) % Eos % (Auto) 1.2 (0-4) % Baso % (Auto) 0.4 (0-2) % Lymph # (Auto) 2.1 (1.2-4.9) X10*3/uL [place] # (Auto) 1.4 H (0.1-1.2) X10*3/uL Eos # (Auto) 0.1 (0.0-0.4) X10*3/uL Baso # (Auto) 0.0 (0.0-0.2) X10*3/uL Abs Immat Gran (auto) 0.05 H (0.00-0.03) X10*3/uL Absolute Neuts (auto) 7.2 (2.0-8.3) x10*3/uL Absolute Nucleated RBC 0.000 (0.0-0.012) X10*3/uL Nucleated RBC % (auto) 0.0 (0.0-0.2) /100WBC PT (10.0-13.1) SEC INR (0.9-1.1) APTT (24.1-38.0) SEC Sodium 135 (135-145) mmol/L Potassium 4.0 (3.3-5.1) mmol/L Chloride 105 (96-108) mmol/L Carbon Dioxide 22 (22-29) mmol/L Anion Gap 12 (12-20) BUN 20 H (9-16) mg/dL Creatinine 1.53 H (0.5-1.4) mg/dL Estim Creat Clear Calc 60.2 Estimated GFR 46 Random Glucose 95 (60-115) mg/dL Calcium 7.9 L (8.4-10.2) mg/dL Magnesium 1.8 (1.6-2.6) mg/dL Total Bilirubin 1.5 H (0.0-1.0) mg/dL Direct Bilirubin 0.7 H (0.0-0.5) mg/dL AST 16 (5-37) U/L ALT 14 (0-40) U/L Alkaline Phosphatase 86 (39-117) U/L Troponin I High Sens (<3.5-35.0) ng/L Total Protein 6.2 L (6.5-8.0) g/dL Albumin 3.2 L (3.5-5.0) g/dL Lipase 13 (8-78) U/L COVID-19 ([facility]) Positive A (Negative) COVID-19 Clin Com See Note 11/03/21 11/03/21 Range/Units 16:44 16:45 WBC (4.8-10.8) X10*3/uL RBC (4.60-5.80) X10*6/uL Hgb (14.0-18.0) g/dl Hct (42.0-52.0) % MCV (80.0-98.0) fL MCH (27.0-33.0) pg MCHC (31.0-36.0) g/dl RDW (11.0-16.0) % Plt Count (160-400) X10*3/uL MPV (9.4-12.4) fL Immature Gran % (Auto) (0.0-0.4) % Neut % (Auto) (45-73) % Lymph % (Auto) (20-40) % Hutchinson % (Auto) (2-11) % Eos % (Auto) (0-4) % Baso % (Auto) (0-2) % Lymph # (Auto) (1.2-4.9) X10*3/uL [place] # (Auto) (0.1-1.2) X10*3/uL Eos # (Auto) (0.0-0.4) X10*3/uL Baso # (Auto) (0.0-0.2) X10*3/uL Abs Immat Gran (auto) (0.00-0.03) X10*3/uL Absolute Neuts (auto) (2.0-8.3) x10*3/uL Absolute Nucleated RBC (0.0-0.012) X10*3/uL Nucleated RBC % (auto) (0.0-0.2) /100WBC PT 14.4 H (10.0-13.1) SEC INR 1.2 H (0.9-1.1) APTT 35.2 (24.1-38.0) SEC Sodium (135-145) mmol/L Potassium (3.3-5.1) mmol/L Chloride (96-108) mmol/L Carbon Dioxide (22-29) mmol/L Anion Gap (12-20) BUN (9-16) mg/dL Creatinine (0.5-1.4) mg/dL Estim Creat Clear Calc Estimated GFR Random Glucose (60-115) mg/dL Calcium (8.4-10.2) mg/dL Magnesium (1.6-2.6) mg/dL Total Bilirubin (0.0-1.0) mg/dL Direct Bilirubin (0.0-0.5) mg/dL AST (5-37) U/L ALT (0-40) U/L Alkaline Phosphatase (39-117) U/L Troponin I High Sens 7.5 (<3.5-35.0) ng/L Total Protein (6.5-8.0) g/dL Albumin (3.5-5.0) g/dL Lipase (8-78) U/L COVID-19 ([facility]) (Negative) COVID-19 Clin Com Discharge Plan Discharge Clinical Impression: Head injury, Multiple falls Patient Disposition: Still a Patient Prescriptions: No Action fluoxetine 40 mg capsule 1 cap PO DAILY bupropion HCl 150 mg tablet sustained-release 12 hr 1 tab PO BID atorvastatin 80 mg tablet 1 tab PO DAILY isosorbide mononitrate 30 mg tablet extended release 24 hr 1 tab PO DAILY clopidogrel 75 mg tablet 1 tab PO DAILY trazodone 100 mg tablet 2 tab PO BEDTIME PRN (Reason: Insomnia) lamotrigine 100 mg tablet 1 tab PO BID metoprolol tartrate 25 mg tablet 0.5 tab PO BID quetiapine 400 mg tablet extended release 24 hr 1 tab PO BEDTIME nitroglycerin 0.4 mg tablet, sublingual 0.4 mg sublingual USEASDIRECTD PRN (Reason: Chest Pain) Label Comments: pt has not picked up medication since March 2021 Rx Instructions: Dissolve1 tablet under the tongue every 5 minutes for chest pain aspirin 81 mg tablet,delayed release (DR/EC) 1 tab PO DAILY lidocaine 5 % Adhesive Patch,Medicated 1 patch TOPICAL DAILY Rx Instructions: leave on most painful area for up to 12 hrs fluticasone propionate [Flonase] 50 mcg/actuation [place],Suspension 1 spray INTRANASAL BID Rx Instructions: administer into each nostril amlodipine 2.5 mg tablet 2.5 mg PO BID
[2021-11-03 15:24] VITALS: BP 133/82; PULSE 75; RESP 16; TEMP 37.2; O2SAT 99
--- NOTE | 2021-11-03 15:32 | ECG_ITS ---
Test Reason : FALLS Blood Pressure : / mmHG Vent. Rate : 061 BPM Atrial Rate : 061 BPM P-R Int : 148 ms QRS Dur : 086 ms QT Int : 450 ms P-R-T Axes : 039 -20 -18 degrees QTc Int : 453 ms Normal sinus rhythm with sinus arrhythmia Nonspecific ST and T wave abnormality When compared with ECG of 09-JUN-2021 22:15, No significant change was found Referred By: Lola Clinton Electronically Signed By:JULIOCESAR HAILE MD
[2021-11-03] MEDS: 0.9 % Sodium Chloride 1,000 ML 999 ML IV (15:56)
[2021-11-03 16:48] LABS: MANUAL DIFF FLAG NO
--- NOTE | 2021-11-03 16:48 | PC.NURSE ---
renetta from [facility] called to see pts disposition, will call back when more informatikn available
[2021-11-03 16:51] LABS: Basophils Percent Auto 0.4 % (0-2); Eosinophils Absolute Auto 0.1 X10*3/uL (0.0-0.4); Eosinophils Percent Auto 1.2 % (0-4); Hematocrit 37.8 % (42.0-52.0); Hemoglobin 12.5 g/dl (14.0-18.0); Imm Gran Abs Auto 0.05 X10*3/uL (0.00-0.03); Imm Gran Pct Auto 0.5 % (0.0-0.4); Lymphocytes Absolute Auto 2.1 X10*3/uL (1.2-4.9); Lymphocytes Percent Auto 18.9 % (20-40); Mean Corpuscular HGB Conc 33.1 g/dl (31.0-36.0); Mean Corpuscular Hemoglobin 29.7 pg (27.0-33.0); Mean Corpuscular Volume 89.8 fL (80.0-98.0); Mean Platelet Volume 11.2 fL (9.4-12.4); Monocytes Absolute Auto 1.4 X10*3/uL (0.1-1.2); Monocytes Percent Auto 13.1 % (2-11); Neutrophils Absolute Auto 7.2 x10*3/uL (2.0-8.3); Neutrophils Percent Auto 65.9 % (45-73); Platelet Count 168 X10*3/uL (160-400); Red Blood Count 4.21 X10*6/uL (4.60-5.80); White Blood Count 10.8 X10*3/uL (4.8-10.8)
[2021-11-03 16:57] LABS: INTERNATIONAL NORM RATIO 1.2 (0.9-1.1); Prothrombin Time 14.4 SEC (10.0-13.1)
[2021-11-03 16:59] LABS: COVID-19 Test Positive (Negative)
[2021-11-03 17:00] LABS: Partial Thromboplastin Time 35.2 SEC (24.1-38.0)
--- NOTE | 2021-11-03 17:04 | PHA.MEDREC ---
Pharmacy Consult ? Medication Reconciliation Pharmacy has completed the medication reconciliation. [facility] faxed current medication list.
[2021-11-03 17:07] LABS: Alanine Aminotransferase 14 U/L (0-40); Albumin Level 3.2 g/dL (3.5-5.0); Alkaline Phosphatase 86 U/L (39-117); Anion Gap 12 (12-20); Aspartate Amino Transferase 16 U/L (5-37); Bilirubin Direct 0.7 mg/dL (0.0-0.5); Bilirubin Total 1.5 mg/dL (0.0-1.0); Blood Urea Nitrogen 20 mg/dL (9-16); Calcium 7.9 mg/dL (8.4-10.2); Carbon Dioxide 22 mmol/L (22-29); Chloride 105 mmol/L (96-108); Creatinine Clr Calc Pharmacy 60.2; Estimated Glomerular Filt Rate 46; Glucose Random 95 mg/dL (60-115); Lipase 13 U/L (8-78); Magnesium 1.8 mg/dL (1.6-2.6); Sodium 135 mmol/L (135-145); Total Protein 6.2 g/dL (6.5-8.0)
[2021-11-03 17:15] LABS: Troponin-I High Sensitivity 7.5 ng/L (<3.5-35.0)
[2021-11-03] MEDS: iohexoL 350 MG/ML 100 ML INFUS..BTL IV (18:04)
--- NOTE | 2021-11-03 19:13 | PC.NURSE ---
assumed care at approx 11/03/21 190
[2021-11-03 21:36] LABS: Troponin-I High Sensitivity 11.1 ng/L (<3.5-35.0)
[2021-11-03 22:26] VITALS: PULSE 73; RESP 16; O2SAT 97
--- NOTE | 2021-11-03 22:27 | PC.NURSE ---
pt given water, resting in bed comfortably. pt is no distress
[2021-11-03 22:38] LABS: Appearance Urine CLEAR; Color Urine YELLOW; Glucose Urine UA NEG (NEG); Leukocyte Esterase Urine NEG (NEG); Nitrite Urine NEG (NEG); Specific Gravity - Urine <= 1.005 (1.005-1.025); Urine Blood NEG (NEG); Urine Ketones NEG (NEG); Urine Protein TRACE MG/DL (NEG-TRACE)
[2021-11-04] VITALS (7 sets, daily range): BP systolic 100–164; BP diastolic 48–89; PULSE 54–89; RESP 14–20; TEMP 36.4–37; O2SAT 95–97
[2021-11-04] MEDS: Acetaminophen 325 MG TABLET 650 MG PO (04:09)
--- NOTE | 2021-11-04 04:12 | PC.NURSE ---
administered 650 mg tylenol per MAR
--- NOTE | 2021-11-04 10:05 | PC.NURSE ---
chd rep renetta calling to relay collateral information about pt. pt had been recently admitted to [facility] for covid dx and falls. pt appears to have continuing falls at home, renetta ? if pt should be in higher level of care than presently living.
[2021-11-04] MEDS: lamoTRIgine 100 MG TABLET PO ×2 (11:40→20:12)
[2021-11-04] MEDS: QUEtiapine Fumarate 200 MG TABLET PO ×2 (11:40→20:12)
[2021-11-04] MEDS: FLUoxetine HCl 20 MG CAPSULE 40 MG PO (11:40)
[2021-11-04] MEDS: buPROPion HCl XL 300 MG TAB.ER.24H PO (11:40)
[2021-11-04] MEDS: amLODIPine Besylate 2.5 MG TABLET PO (11:40)
[2021-11-04] MEDS: Clopidogrel Bisulfate 75 MG TABLET PO (11:41)
[2021-11-04] MEDS: Aspirin Enteric Coated 81 MG TABLET.DR PO (11:41)
[2021-11-04] MEDS: Isosorbide Mononitrate 30 MG TAB.ER.24H PO (11:41)
[2021-11-04] MEDS: Metoprolol Tartrate 12.5 MG HALFTAB PO (11:41)
[2021-11-04] MEDS: Atorvastatin Calcium 80 MG TABLET PO (11:41)
--- NOTE | 2021-11-04 20:15 | PC.NURSE ---
Patients BP 100 systolic, KVNG Kruse aware. Instructed to hold BP medications.
--- NOTE | 2021-11-04 20:38 | MHC.CM.ED ---
Addendum entered by Liana Guthrie 11/04/21 21:21: CHD rep Guerline (no contact info) called and spoke with RN. Concerns that patient may need higher level of care. Addendum entered by Liaan Guthrie 11/04/21 20:50: CM spoke with Mary HYATT regarding HCP/brother's concerns about his brother being successful with home PT, since he has had frequent falls and needs to have his medications managed by CHD with a timed med box. Mary is in agreement. Will request PT to re-evaluate pt for possible STR. CM will reach out to [facility] in the morning. Pt agreeable with plan of care. Original Note: CM met with patient. +Covid 10/28 at [facility] [place] [facility] was seen at [facility] for a fall and fell again about 1 1/2 months ago and went to rehab in [place]. This information was provided to CM by his brother/HCP Tim. HCP is on file. Tim is aware that PT is recommending home PT, however he is concerned that his brother has been falling more frequently and may need STR. Pt has a CHD worker, Sara ([phone]), message left and CHN contact Rach Lazcano @ [phone], called and message left. Tim tells CM that CHD manages his medications and that he has a timed med box to deliver his meds. He also has a [employer], unknown hours. Pt is not a good historian. Pt uses a cane, resides in elderly housing and drives. He is not a . PCP is Dr. Mayo. Pt states he has had 2 Pfizer vaccinations. Unsure regarding booster. CM is unable to verify information with CHD. Brother has concerns regarding home PT. Is requesting STR for his brother. Will request another PT evaluation. Provider aware. CM to follow for d/c needs.
[2021-11-05 05:52] VITALS: BP 123/77; PULSE 71; RESP 18; O2SAT 97
[2021-11-05 07:11] VITALS: BP 144/68; PULSE 63; RESP 18; O2SAT 97
--- NOTE | 2021-11-05 07:25 | PC.NURSE ---
Assumed care of this pt. at 0700 - report from Emigdio Alicea RN
[2021-11-05 07:54] VITALS: BP 144/68; PULSE 63; O2SAT 97
[2021-11-05] MEDS: Metoprolol Tartrate 12.5 MG HALFTAB PO ×2 (08:23→20:22)
[2021-11-05] MEDS: Aspirin Enteric Coated 81 MG TABLET.DR PO (08:23)
[2021-11-05] MEDS: Isosorbide Mononitrate 30 MG TAB.ER.24H PO (08:23)
[2021-11-05] MEDS: amLODIPine Besylate 2.5 MG TABLET PO ×2 (08:23→20:21)
[2021-11-05] MEDS: FLUoxetine HCl 20 MG CAPSULE 40 MG PO (08:24)
[2021-11-05] MEDS: buPROPion HCl XL 300 MG TAB.ER.24H PO (08:24)
[2021-11-05] MEDS: QUEtiapine Fumarate 200 MG TABLET PO ×2 (08:25→20:21)
[2021-11-05] MEDS: Clopidogrel Bisulfate 75 MG TABLET PO (08:25)
[2021-11-05] MEDS: lamoTRIgine 100 MG TABLET PO ×2 (08:25→20:22)
[2021-11-05] MEDS: Atorvastatin Calcium 80 MG TABLET PO (08:25)
[2021-11-05 11:28] VITALS: BP 127/78; PULSE 60; RESP 16; O2SAT 95
--- NOTE | 2021-11-05 11:29 | PC.NURSE ---
Pt requested to be cleaned up, pt was cleaned up via bedside bath, new sheets and blankets. Pt tolerated well. sg.
--- NOTE | 2021-11-05 11:50 | MHC.CARE ---
CARE team consultation requested for 66 year old male who presented to the ED s/p a fall in the home and requires behavioral health clearance for transfer to a short term rehab facility. This scientific writer met with the pt in the main ED room 11. He was sitting up on the edge of his bed and engaged easily with this scientific writer. He presented with dysthymic mood, situationally appropriate given recent declines in his mobility and medical complications. His speech was soft with even tone and rhythm, eye contact was consistent, and there was no restlessness or physical agitation noted. He denied SI/HI and engagement in self injurious behavior. He did not appear to be responding to internal stimuli nor did he demonstrate any acute signs or symptoms of psychosis. He reported that he is compliant with his medications as prescribed and engages with his treatment providers as scheduled. He lives with his dog, Lico, and has a brother that lives nearby whom he sees from time to time. He shared with this scientific writer that he had started doing spring cleaning prior to when he started to struggle more with his physical health, and that his home is in disarray with the furniture pulled away from the elizabeth where he was cleaning the carpet. He's looking forward to when he's able to return home to finish cleaning and see his dog. At this time pt does not require further behavioral health evaluation. ED case management has been updated re: findings.
--- NOTE | 2021-11-05 12:22 | MHC.CM.ED ---
Patient remains in ER. Physical therapy eval completed. Short term rehab is recommended. Received telephone call from Rach at [facility]. She can be reached via telephone at [phone]. She is requesting patient go to [facility]. T/W informd Rach that patient is alert and oriented at this time and doesn't feel he wants to got to STR. Rach spoke with patient and left voicemail for T/W stating patient is agreeable to rehab and would like to go to [facility] or [facility]. T/W spoke with Guerline [facility] RN and explained only facility in the area that is able to offer a bed is [facility]. Guerline verbalized that she already explained to patient bed choice might be difficult. Patient has a history of Schizophrenia and Bipolar. Patient will need PASRR Level 2. T/W already submitted level 1 for Level 2. Continue to monitor for d/c needs.
[2021-11-05 14:15] VITALS: BP 129/57; PULSE 57; RESP 12; TEMP 37.1; O2SAT 97
--- NOTE | 2021-11-05 18:25 | MHC.CM.ED ---
Still waiting for PASRR exemption letter. Pt to remain in ED.
--- NOTE | 2021-11-05 19:06 | PC.NURSE ---
Addendum entered by Bernice Ontiveros 11/06/21 06:54: report given to JERONIMO Reno Addendum entered by Bernice Ontiveros 11/05/21 20:23: pt is alert and oriented. resting in bed. no signs of acute distress notice. breathing equally unlabored. denies any pain Original Note: report received from JERONIMO Booth.
[2021-11-05 20:00] VITALS: BP 139/69; PULSE 68; RESP 12; TEMP 36.9; O2SAT 93
[2021-11-06 05:50] VITALS: BP 161/86; PULSE 69; RESP 18; TEMP 36.1; O2SAT 95
[2021-11-06 10:01] VITALS: BP 148/91; PULSE 72; RESP 18; TEMP 36.6; O2SAT 96
[2021-11-06] MEDS: Clopidogrel Bisulfate 75 MG TABLET PO (10:03)
[2021-11-06] MEDS: Aspirin Enteric Coated 81 MG TABLET.DR PO (10:03)
[2021-11-06] MEDS: amLODIPine Besylate 2.5 MG TABLET PO ×2 (10:03→22:50)
[2021-11-06] MEDS: Metoprolol Tartrate 12.5 MG HALFTAB PO (10:03)
[2021-11-06] MEDS: Atorvastatin Calcium 80 MG TABLET PO (10:03)
[2021-11-06] MEDS: buPROPion HCl XL 300 MG TAB.ER.24H PO (10:04)
[2021-11-06] MEDS: Isosorbide Mononitrate 30 MG TAB.ER.24H PO (10:04)
[2021-11-06] MEDS: QUEtiapine Fumarate 200 MG TABLET PO ×2 (10:05→22:49)
[2021-11-06] MEDS: FLUoxetine HCl 20 MG CAPSULE 40 MG PO (10:05)
[2021-11-06] MEDS: lamoTRIgine 100 MG TABLET PO ×2 (10:05→22:50)
[2021-11-06 14:19] VITALS: BP 115/60; PULSE 53; RESP 16; O2SAT 96
[2021-11-06 22:48] VITALS: BP 143/58; PULSE 67; RESP 18; TEMP 36.7; O2SAT 97
[2021-11-06] MEDS: Fluticasone Propionate Nasal 16 GM SPRAY 1 SPRAY NOSTRIL-B (22:50)
[2021-11-07 11:08] VITALS: BP 170/75; PULSE 63; RESP 18; TEMP 37.3; O2SAT 96
[2021-11-07] MEDS: Metoprolol Tartrate 12.5 MG HALFTAB PO ×2 (11:11→20:30)
[2021-11-07] MEDS: Atorvastatin Calcium 80 MG TABLET PO (11:11)
[2021-11-07] MEDS: buPROPion HCl XL 300 MG TAB.ER.24H PO (11:11)
[2021-11-07] MEDS: Clopidogrel Bisulfate 75 MG TABLET PO (11:11)
[2021-11-07] MEDS: Aspirin Enteric Coated 81 MG TABLET.DR PO (11:11)
[2021-11-07] MEDS: amLODIPine Besylate 2.5 MG TABLET PO ×2 (11:12→20:30)
[2021-11-07] MEDS: Isosorbide Mononitrate 30 MG TAB.ER.24H PO (11:12)
[2021-11-07] MEDS: FLUoxetine HCl 20 MG CAPSULE 40 MG PO (11:12)
[2021-11-07] MEDS: lamoTRIgine 100 MG TABLET PO ×2 (11:12→20:30)
[2021-11-07] MEDS: QUEtiapine Fumarate 200 MG TABLET PO ×2 (11:12→20:30)
[2021-11-07] MEDS: Fluticasone Propionate Nasal 16 GM SPRAY 1 SPRAY NOSTRIL-B (11:19)
--- NOTE | 2021-11-07 14:34 | MHC.CM.ED ---
Pt has been accepted by [facility] once PASSR 2 returns. Attempted to contact [facility] at to inquire: no available person. Will follow for placement
--- NOTE | 2021-11-07 17:17 | PC.NURSE ---
THIS HEAT TREATER APPRENTICE ASSUMED CARE OF THIS PT AT 1645. PT ALERT AND ORIENTED, VSS, DENIES PAIN. NO COMPLAINTS AT THIS TIME.
[2021-11-07 20:28] VITALS: BP 149/79; PULSE 69; RESP 18; TEMP 36.3; O2SAT 99
[2021-11-07] MEDS: traZODone HCL 100 MG TABLET 200 MG PO (20:30)
[2021-11-08 06:00] VITALS: RESP 18
--- NOTE | 2021-11-08 07:32 | PC.NURSE ---
Shift eval 12a-7a - patient resting through night, cooperative with fall risk protocol. Vitals stable. Patinient using urinal. No distress
[2021-11-08 09:46] VITALS: BP 137/65; PULSE 57; RESP 18; TEMP 36.6; O2SAT 98
[2021-11-08] MEDS: Metoprolol Tartrate 12.5 MG HALFTAB PO ×2 (09:57→20:23)
[2021-11-08] MEDS: amLODIPine Besylate 2.5 MG TABLET PO ×2 (09:57→20:23)
[2021-11-08] MEDS: Aspirin Enteric Coated 81 MG TABLET.DR PO (09:57)
[2021-11-08] MEDS: FLUoxetine HCl 20 MG CAPSULE 40 MG PO (09:57)
[2021-11-08] MEDS: Isosorbide Mononitrate 30 MG TAB.ER.24H PO (09:57)
[2021-11-08] MEDS: Clopidogrel Bisulfate 75 MG TABLET PO (09:58)
[2021-11-08] MEDS: Atorvastatin Calcium 80 MG TABLET PO (09:58)
[2021-11-08] MEDS: QUEtiapine Fumarate 200 MG TABLET PO ×2 (09:58→20:23)
[2021-11-08] MEDS: lamoTRIgine 100 MG TABLET PO ×2 (09:58→20:23)
[2021-11-08] MEDS: buPROPion HCl XL 300 MG TAB.ER.24H PO (09:58)
[2021-11-08 10:54] LABS: COVID-19 Test Positive (Negative)
--- NOTE | 2021-11-08 12:39 | PC.NURSE ---
pt resting in bed, medicated with AM medications per MAR without problem. pt remains STR bed search, repeat COVID test done this morning - result remains POSITIVE. pt initially tested + on 10/28. pt with no complaints at this time.
--- NOTE | 2021-11-08 14:55 | MHC.CM.PN ---
PT WILL BE DISCHARGED TO [facility] TODAY AT 1600 HOURS CM CALLED PTS HCP, ROSANA [phone] AND INFORMED HIM OF PENDING DC, HE REPORTS BEING AGREEABLE CM ALSO UPDATED CHD NURSE, LYLE MACIAS [phone] PT WILL BE TRANSPORTED VIA BLS
[2021-11-08 15:02] VITALS: BP 126/72; PULSE 63; RESP 18; TEMP 36.4; O2SAT 97
--- NOTE | 2021-11-08 19:24 | MHC.CM.ED ---
CM received a call from [facility] that ambulance is here to transport patient at 1845 and patient is refusing transport after waiting for STR bed since 11/03. CM immediately went to [facility] left. CM spoke with patient. Pt frustrated that he has problems and pain in his hips and states he has had rehab in the past and it hasn't helped. States he needs hip replacements, but does not have a doctor or an appointment to address these problems with his hips. CM explained to patient that he is unsafe to return home, as he has been falling multiple times. Pt is now agreeable to try rehab at the facility. CM called [facility]. They cannot transport patient to facility tonight due to staffing and 911 calls. [facility] at 8[facility]. Pt aware. RN aware.
[2021-11-08 20:41] VITALS: BP 171/94; PULSE 56; RESP 12; TEMP 36.6; O2SAT 98
[2021-11-09 06:00] VITALS: BP 137/62; PULSE 53; RESP 14; TEMP 36; O2SAT 95
[2021-11-09 08:04] VITALS: BP 110/72; PULSE 68; RESP 14; TEMP 36.3; O2SAT 96
[2021-11-09] MEDS: Metoprolol Tartrate 12.5 MG HALFTAB PO (09:30)
[2021-11-09] MEDS: Atorvastatin Calcium 80 MG TABLET PO (09:30)
[2021-11-09] MEDS: amLODIPine Besylate 2.5 MG TABLET PO (09:30)
[2021-11-09] MEDS: FLUoxetine HCl 20 MG CAPSULE 40 MG PO (09:30)
[2021-11-09] MEDS: Aspirin Enteric Coated 81 MG TABLET.DR PO (09:30)
[2021-11-09] MEDS: Clopidogrel Bisulfate 75 MG TABLET PO (09:31)
[2021-11-09] MEDS: Isosorbide Mononitrate 30 MG TAB.ER.24H PO (09:31)
[2021-11-09] MEDS: lamoTRIgine 100 MG TABLET PO (09:31)
[2021-11-09] MEDS: buPROPion HCl XL 300 MG TAB.ER.24H PO (09:31)
[2021-11-09] MEDS: QUEtiapine Fumarate 200 MG TABLET PO (09:31)
--- NOTE | 2021-11-09 10:00 | PC.NURSE ---
multiple calls made to [facility] ([phone]) for rn to rn repot without any success
== END 2021-11-09 09:45 | disposition skilled nursing facility (03) ==
PROVIDERS: Nurse Practitioner Family; Physician Assistant; Emergency Provider Internal Medicine
DX: U07.1 COVID-19 (principal); S09.90XA Unspecified injury of head, initial encounter; W06.XXXA Fall from bed, initial encounter; Z91.81 History of falling; R07.81 Pleurodynia; M54.50 Low back pain, unspecified; R10.31 Right lower quadrant pain; M25.551 Pain in right hip; I10 Essential (primary) hypertension; I25.2 Old myocardial infarction; Z79.02 Long term (current) use of antithrombotics/antiplatelets; Z79.899 Other long term (current) drug therapy; F17.200 Nicotine dependence, unspecified, uncomplicated; Y93.89 Activity, other specified; Y92.013 Bedroom of single-family (private) house as the place of occurrence of the external cause; Y99.9 Unspecified external cause status
CPT/HCPCS: 36415; 70450; 71260; 72125; 73502; 74177; 80048; 80076; 81003; 83690; 83735; 84484; 85025; 85610; 85730; 87635; 93005; 96360; 97161; 97162; 99285; Q9967

== ENCOUNTER 2022-05-19 12:25 | Emergency (ER) | payer MEDICARE, MEDICAID, SELFPAY ==
--- NOTE | ~2022-05-19 | XR_ITS ---
EXAMINATION: XR LUMBAR SPINE XR HIP, LEFT WITH PELVIS CLINICAL INFORMATION: Pain after fall COMPARISON: 11/03/2021 TECHNIQUE: 3 views of the lumbar spine. Frontal view of the pelvis with 2 views of the left hip. FINDINGS: Lumbar spine: No fracture or subluxation. Vertebral body height and alignment maintained. Mild disc space narrowing at L4-L5. Small endplate osteophytes throughout. Mild facet arthropathy at the lower lumbar spine. The sacroiliac joints are symmetric. The visualized sacrum is intact. Normal bowel gas pattern. Vascular stent to the left of midline. Pelvis/left hip: No fracture or dislocation. Mild joint space narrowing of both hips with subchondral sclerosis and small osteophytes. The pelvic rim is intact. XR/XR hip LT w PEL1V IMPRESSION: No fracture or malalignment. Mild degenerative changes of the lumbar spine. Mild degenerative changes of the hips.
--- NOTE | ~2022-05-19 | XR_ITS ---
EXAMINATION: XR LUMBAR SPINE XR HIP, LEFT WITH PELVIS CLINICAL INFORMATION: Pain after fall COMPARISON: 11/03/2021 TECHNIQUE: 3 views of the lumbar spine. Frontal view of the pelvis with 2 views of the left hip. FINDINGS: Lumbar spine: No fracture or subluxation. Vertebral body height and alignment maintained. Mild disc space narrowing at L4-L5. Small endplate osteophytes throughout. Mild facet arthropathy at the lower lumbar spine. The sacroiliac joints are symmetric. The visualized sacrum is intact. Normal bowel gas pattern. Vascular stent to the left of midline. Pelvis/left hip: No fracture or dislocation. Mild joint space narrowing of both hips with subchondral sclerosis and small osteophytes. The pelvic rim is intact. XR/XR lumbar spine 2-3V IMPRESSION: No fracture or malalignment. Mild degenerative changes of the lumbar spine. Mild degenerative changes of the hips.
[2022-05-19 12:39] VITALS: BP 180/142; PULSE 58; RESP 20; TEMP 36.7; O2SAT 95; BMI 33.7
--- NOTE | 2022-05-19 14:09 | ED.FALL ---
HPI - Fall General Chief Complaint: Fall Stated Complaint: FALL OUTSIDE D/T CHR KNEE WEAKNESS,BACK PAIN Time Seen by Provider: 05/19/22 13:58 Source: patient, EMS and old records reviewed Mode of arrival: EMS Limitations: no limitations History of Present Illness HPI Narrative: 66 yo male with history of HTN, Arthritis, NE, mental illness who presents to the ER for evaluation of left leg pain after he sustained a fall while walking his dog today. Patient reports a history of frequent falls, last was last week. He has been to physical therapy and rehab for this several times with no improvement. He states he was walking his dog today when he suddenly lost his balance and fell onto his left side. He has pain in his left hip and lower back. He was unable to get up on his own, EMS was called. Patient denies any preceding chest pain, shortness of breath, dizziness. He does not know if he is on anticoagulation or not. He denies hitting his head or losing consciousness. MD complaint: fall Onset (ago): minute(s) Fall from: standing Fall witnessed: no Place fall occurred: street Loss of consciousness: none Prolonged down time: no Symptoms prior to fall: none Context: tripped/slipped Location of injury: back and pelvis Severity: moderate Severity scale (1-10): 5 Quality: aching Associated symptoms (after fall): unable to walk Related Data Home Medications Medication Instructions Recorded Confirmed atorvastatin 80 mg tablet 1 tab PO DAILY 01/12/21 11/03/21 bupropion HCl 150 mg tablet,12 hr 1 tab PO BID 01/12/21 11/03/21 sustained-release clopidogrel 75 mg tablet 1 tab PO DAILY 01/12/21 11/03/21 fluoxetine 40 mg capsule 1 cap PO DAILY 01/12/21 11/03/21 isosorbide mononitrate 30 mg 1 tab PO DAILY 01/12/21 11/03/21 tablet,extended release 24 hr lamotrigine 100 mg tablet 1 tab PO BID 01/12/21 11/03/21 metoprolol tartrate 25 mg tablet 0.5 tab PO BID 01/12/21 11/03/21 quetiapine 400 mg tablet,extended 1 tab PO BEDTIME 01/12/21 11/03/21 release 24 hr trazodone 100 mg tablet 2 tab PO BEDTIME PRN Insomnia 01/12/21 11/03/21 nitroglycerin 0.4 mg sublingual 0.4 mg sublingual USEASDIRECTD PRN 01/13/21 11/03/21 tablet Chest Pain amlodipine 2.5 mg tablet 2.5 mg PO BID 08/02/21 11/03/21 aspirin 81 mg tablet,delayed 1 tab PO DAILY 11/03/21 11/03/21 release fluticasone propionate 50 1 spray intranasal BID 11/03/21 11/03/21 mcg/actuation nasal spray,suspension lidocaine 5 % topical patch 1 patch topical DAILY 11/03/21 11/03/21 Allergies Allergy/AdvReac Type Severity Reaction Status Date / Time clozapine [From Clozaril] Allergy Unknown RASH Verified 08/02/21 09:52 hydroxyzine [From VISTARIL] Allergy Unknown UNKNOWN Verified 08/02/21 09:52 menthol [From Antihistamine] Allergy Unknown RASH Verified 08/02/21 09:52 nicotine [Nicotine] Allergy Unknown GUM- MAKES Verified 08/02/21 09:52 SICK TO STOMACH nut - unspecified [nut] Allergy Unknown SWELLING Verified 08/02/21 09:52 From Antihistamine Allergy Unknown RASH Uncoded 01/12/21 02:28 Review of Systems Review of Systems: Yes all other systems are reviewed and are negative [facility] Past Medical History Medical History Arthritis Hypertension Myocardial infarct Psychiatric diagnosis Surgical History No significant past surgical history Social History Social History Household Members: None Housing: Apartment Do you presently have visiting nurse or other home services: Yes Alcohol intake: current Alcohol intake frequency: a few times a month Alcohol type: beer, wine and hard liquor Patient Tobacco Use Status: Current everyday Tobacco user Tobacco use type: Cigar Smoked in Last 30 Days: Yes Use of substances other than those prescribed or required for medical reasons: No Advance Directives: No Advance Directives Information Provided: Yes service: No Physical Exam Vital Signs: Vital Signs: Last Vital Signs Temp 98.1 F 05/19/22 14:37 Pulse 52 05/19/22 14:37 Resp 20 05/19/22 14:37 BP 118/80 05/19/22 14:37 Pulse Ox 96 05/19/22 14:37 O2 Del Method 05/19/22 14:37 BMI result Body Mass Index 33.7 Appearance: Alert. Oriented X3. Disheveled and unkempt Eyes: Pupils equal, round and reactive to light. ENT: Pharynx normal. Neck: Normal inspection. Neck supple. CVS: Normal heart rate and rhythm. Pulses normal. Respiratory: No respiratory distress. Breath sounds normal. Abdomen: Soft and nontender. +BS x4 Skin: Skin warm and dry. Normal skin color. Normal skin turgor. No rashes. Back: No ecchymosis, tenderness of the entire lumbar area including midline. Extremities: Laying on left hip. No lower extremity edema. When lying on his back the pelvis is stable, minimal left hip tenderness. Able to lift both legs off the bed equally. Neuro: Oriented X 3. No motor deficit. No sensory deficit. Gait not tested. Course Course Course Narrative: 66 yo male presenting with fall while walking his dog today. c/o left hip pain and low back pain - without acute fracture given his physical exam however will get x-rays to rule this out. Reevaluation(s) Reevaluation #1: X-rays without acute fracture. He would like to see Physical therapy with potential for short-term rehab placement. Will place patient physician observation at this time. Basic lab workup. Physician observation started at 16:55. Patient placed in physician observation because patient is awaiting PT evaluation for the possible need of short term rehab. At the time observation was started patient's vital signs were stable. Patient is alert and oriented. Neuro exam is non-focal. CV: RRR and lungs are clear. Will continue to monitor. Medications Administered Discontinued Medications Generic Name Dose Route Start Last Admin Trade Name Freq PRN Reason Stop Dose Admin Amlodipine Besylate 5 mg 05/19/22 14:06 05/19/22 14:31 Amlodipine Besylate 5 Mg Tablet PO 05/19/22 14:07 Not Given ONCE ONE Protocol Medical Decision Making Differential Diagnosis Differential Diagnoses: The differential diagnosis associated with the presentation includes Hip fracture, hip contusion, compression fracture, back contusion, recurrent falls due to unstable gait, polypharmacy, less likely stroke given chronicity Lab Data [facility] Lab Attestation statement: I reviewed the patient's lab results. CKD at baseline. Stable anemia. No metabolic derangement. 05/19/22 16:01 05/19/22 16:01 Labs: Lab Results 05/19/22 05/19/22 05/19/22 Range/Units 16:01 16:01 16:01 WBC 9.5 (4.8-10.8) X10*3/uL RBC 4.38 L (4.60-5.80) X10*6/uL Hgb 13.1 L (14.0-18.0) g/dl Hct 39.0 L (42.0-52.0) % MCV 89.0 (80.0-98.0) fL MCH 29.9 (27.0-33.0) pg MCHC 33.6 (31.0-36.0) g/dl RDW 13.5 (11.0-16.0) % Plt Count 208 (160-400) X10*3/uL MPV 10.7 (9.4-12.4) fL Immature Gran % (Auto) 0.4 (0.0-0.4) % Neut % (Auto) 54.1 (45-73) % Lymph % (Auto) 32.7 (20-40) % [place] % (Auto) 7.2 (2-11) % Eos % (Auto) 4.5 H (0-4) % Baso % (Auto) 1.1 (0-2) % Lymph # (Auto) 3.1 (1.2-4.9) X10*3/uL [place] # (Auto) 0.7 (0.1-1.2) X10*3/uL Eos # (Auto) 0.4 (0.0-0.4) X10*3/uL Baso # (Auto) 0.1 (0.0-0.2) X10*3/uL Abs Immat Gran (auto) 0.04 H (0.00-0.03) X10*3/uL Absolute Neuts (auto) 5.1 (2.0-8.3) x10*3/uL Absolute Nucleated RBC 0.000 (0.0-0.012) X10*3/uL Nucleated RBC % (auto) 0.0 (0.0-0.2) /100WBC Sodium 139 (135-145) mmol/L Potassium 3.9 (3.3-5.1) mmol/L Chloride 105 (96-108) mmol/L Carbon Dioxide 25 (22-29) mmol/L Anion Gap 13 (12-20) BUN 20 H (9-16) mg/dL Creatinine 1.78 H (0.5-1.4) mg/dL Estim Creat Clear Calc 53.6 Estimated GFR 39 Random Glucose 89 (60-115) mg/dL Calcium 8.5 D (8.4-10.2) mg/dL COVID-19 (UCHE) Negative (Negative) COVID-19 Clin Com See Note Independent Interpretation I performed an independent interpretation of an: Plain X-Ray Interpretation: X-rays with some mild degenerative changes, no acute fractures appreciated Radiology Impression Discussion of test interpretation with radiology: I have reviewed the radiologist's reading. Radiologist Impression: XR/XR hip LT w PEL1V - IMPRESSION: No fracture or malalignment. Mild degenerative changes of the lumbar spine. Mild degenerative changes of the hips. Independent Historian Clinical information obtained from an independent historian. History obtained from or confirmed by: EMS External Record Review External record reviewed: Outpatient record, Prior outpatient labs and Prior outpatient radiology Prescription Management I considered prescription management with: Pain Medication Will avoid sedating medications like narcotics, Tylenol for pain. Avoid NSAIDs due to CKD. Critical Care Time Critical Care Time Critical Care Time: No Discharge Plan Discharge Clinical Impression: Recurrent falls Patient Disposition: Still a Patient Prescriptions: No [facility] fluoxetine 40 mg capsule 1 cap PO DAILY bupropion HCl 150 mg tablet sustained-release 12 hr 1 tab PO BID atorvastatin 80 mg tablet 1 tab PO DAILY isosorbide mononitrate 30 mg tablet extended release 24 hr 1 tab PO DAILY clopidogrel 75 mg tablet 1 tab PO DAILY trazodone 100 mg tablet 2 tab PO BEDTIME PRN (Reason: Insomnia) lamotrigine 100 mg tablet 1 tab PO BID metoprolol tartrate 25 mg tablet 0.5 tab PO BID quetiapine 400 mg tablet extended release 24 hr 1 tab PO BEDTIME nitroglycerin 0.4 mg tablet, sublingual 0.4 mg sublingual USEASDIRECTD PRN (Reason: Chest Pain) Label Comments: pt has not picked up medication since March 2021 Rx Instructions: Dissolve1 tablet under the tongue every 5 minutes for chest pain aspirin 81 mg tablet,delayed release (DR/EC) 1 tab PO DAILY lidocaine 5 % Adhesive Patch,Medicated 1 patch TOPICAL DAILY Rx Instructions: leave on most painful area for up to 12 hrs fluticasone propionate [Flonase] 50 mcg/actuation [place],Suspension 1 spray INTRANASAL BID Rx Instructions: administer into each nostril amlodipine 2.5 mg tablet 2.5 mg PO BID
[2022-05-19 14:37] VITALS: BP 118/80; PULSE 52; RESP 20; TEMP 36.7; O2SAT 96
[2022-05-19 16:17] LABS: MANUAL DIFF FLAG NO
[2022-05-19 16:25] LABS: Basophils Absolute Auto 0.1 X10*3/uL (0.0-0.2); Basophils Percent Auto 1.1 % (0-2); Eosinophils Absolute Auto 0.4 X10*3/uL (0.0-0.4); Eosinophils Percent Auto 4.5 % (0-4); Hemoglobin 13.1 g/dl (14.0-18.0); Imm Gran Abs Auto 0.04 X10*3/uL (0.00-0.03); Imm Gran Pct Auto 0.4 % (0.0-0.4); Lymphocytes Absolute Auto 3.1 X10*3/uL (1.2-4.9); Lymphocytes Percent Auto 32.7 % (20-40); Mean Corpuscular HGB Conc 33.6 g/dl (31.0-36.0); Mean Corpuscular Hemoglobin 29.9 pg (27.0-33.0); Mean Platelet Volume 10.7 fL (9.4-12.4); Monocytes Absolute Auto 0.7 X10*3/uL (0.1-1.2); Monocytes Percent Auto 7.2 % (2-11); Neutrophils Absolute Auto 5.1 x10*3/uL (2.0-8.3); Neutrophils Percent Auto 54.1 % (45-73); Platelet Count 208 X10*3/uL (160-400); Red Blood Count 4.38 X10*6/uL (4.60-5.80); Red Cell Distribution Width 13.5 % (11.0-16.0); White Blood Count 9.5 X10*3/uL (4.8-10.8)
[2022-05-19 16:34] LABS: COVID-19 Test Negative (Negative); IDNOW Serial# 16C4AD1C
[2022-05-19 16:41] LABS: Anion Gap 13 (12-20); Blood Urea Nitrogen 20 mg/dL (9-16); Calcium 8.5 mg/dL (8.4-10.2); Carbon Dioxide 25 mmol/L (22-29); Chloride 105 mmol/L (96-108); Creatinine Clr Calc Pharmacy 53.6; Estimated Glomerular Filt Rate 39; Glucose Random 89 mg/dL (60-115); Potassium 3.9 mmol/L (3.3-5.1); Sodium 139 mmol/L (135-145)
[2022-05-19 17:00] VITALS: BP 171/68; PULSE 51; RESP 14; TEMP 36.4; O2SAT 93
[2022-05-19 17:15] LABS: Appearance Urine Clear; Color Urine Yellow; Glucose Urine UA Negative (Negative); Leukocyte Esterase Urine Negative (Negative); Nitrite Urine Negative (Negative); PH 7.5 (5.0-9.0); Specific Gravity - Urine <= 1.005 (1.005-1.025); Urine Blood Negative (Negative); Urine Ketones Negative (Negative); Urine Protein Negative (Neg-Trace)
--- NOTE | 2022-05-19 17:36 | PHA.MEDREC ---
Pharmacy Consult ? Medication Reconciliation Pharmacy has completed the medication reconciliation. Patient unfamiliar with medications, has a traveling nurse. Called traveling nurse and confirmed medications.
--- NOTE | 2022-05-19 19:24 | PC.NURSE ---
Assumed care of pt. at 1900. Pt. sleeping in bed at this time, respirations are even and unlabored. No distress noted. Pt. has a urinal at bedside. Will continue to monitor.
[2022-05-19 20:28] VITALS: BP 182/105; PULSE 54; RESP 16; O2SAT 95
--- NOTE | 2022-05-19 20:35 | PC.NURSE ---
Pt. awake and now reporting pain (headache 6/10) and in his hip and back 7/10.
--- NOTE | 2022-05-19 21:25 | MHC.CM.ED ---
Addendum entered by Liana Guthrie 05/19/22 21:37: Pt states [facility] is [facility]. Unsure of NIGHT ASSISTANT agency. Denies [facility]. [facility] updated in [facility]. Original Note: CM met with patient to discuss discharge needs. Pt with fall, weakness and back pain. Medical work up negative. Has hx falls and unsteady gait. Hx mental illness. Sara is his CHD tobacco farmworker. Pt has VNA services twice a day for medication administration and has NIGHT ASSISTANT 7hours week. Unsure of agency ? community based through Medicaid. Pt has a walker, but exclusively uses his cane. CM explained that he may have more stability using a walker. Pt is agreeable to PT assessment. Pt in NOT agreeable to STR, as he says he has been to rehab 7-8 times and it doesn't help. Would be agreeable to home PT. CM reviewed differences between home PT and STR, pt states he does not want to go to rehab. Is requesting that no referrals be made tonight. States he will consider if STR recommended, but again stressed he did not want to go to STR. Pt wishes respected and no referrals placed tonight. [employer] x3. HCP on file. HCP/brother Tim Rosa ([phone]). Pt states he can arrange transportation home. CM will follow for D/C planning.
[2022-05-19 21:32] VITALS: BP 115/83; PULSE 63; RESP 18; O2SAT 94
[2022-05-20] VITALS (7 sets, daily range): BP systolic 123–191; BP diastolic 61–90; PULSE 50–53; RESP 14–16; TEMP 36.3–36.6; O2SAT 92–99
--- NOTE | 2022-05-20 00:53 | PC.NURSE ---
Pt. sleeping, respirations even and unlabored, no distress noted. Will continue to monitor.
[2022-05-20] MEDS: Acetaminophen 325 MG TABLET 975 MG PO ×2 (01:06→09:12)
--- NOTE | 2022-05-20 06:12 | PC.NURSE ---
Pt. sleeping, respirations even and unlabored, no distress noted. Will continue to monitor.
[2022-05-20] MEDS: FLUoxetine HCl 20 MG CAPSULE 40 MG PO (09:11)
[2022-05-20] MEDS: Metoprolol Tartrate 25 MG TABLET PO (09:12)
[2022-05-20] MEDS: QUEtiapine Fumarate 200 MG TABLET PO (09:12)
[2022-05-20] MEDS: Aspirin Enteric Coated 81 MG TABLET.DR PO (09:12)
[2022-05-20] MEDS: Clopidogrel Bisulfate 75 MG TABLET PO (09:12)
[2022-05-20] MEDS: lamoTRIgine 100 MG TABLET PO (09:13)
[2022-05-20] MEDS: Isosorbide Mononitrate 30 MG TAB.ER.24H PO (09:13)
[2022-05-20] MEDS: FLUoxetine HCl 10 MG CAPSULE PO (09:13)
[2022-05-20] MEDS: buPROPion HCl XL 300 MG TAB.ER.24H PO (09:24)
--- NOTE | 2022-05-20 13:47 | MHC.CM.ED ---
Patient remains in ER. Physical therapy eval completed. Short term rehab is recommended. Patient is active with [facility] twice a day for medication management. They are unable to offer physical therapy services. Referral made to [facility] to see if they can provide medication management and physical therapy. They are only able to offer medication administration daily. Met with patient in regards to discharge planning. Patient still declining STR. T/W explained [facility] not being able to provide physical therapy at home. Patient tells T/W [facility] T/W left a message with [employer] at [phone]. Left message reqeusting return telephone call. Patient is active with [facility] Uzma at [facility] updated on progress thus far. Uzma can be reached via telephone at [phone]. Continue to monitor for d/c needs.
--- NOTE | 2022-05-20 19:21 | MHC.EDTECH ---
this pct assumed care of pt at 1900 ,patient had dinner ,ate 100 % of meal,drank 480 ml fluids .
== END 2022-05-20 19:35 | disposition home or self-care (01) ==
PROVIDERS: Physician Assistant; Emergency Provider Student in an Organized Health Care Education/Training Program
DX: S70.02XA Contusion of left hip, initial encounter (principal); M54.50 Low back pain, unspecified; R26.81 Unsteadiness on feet; W01.0XXA Fall on same level from slipping, tripping and stumbling without subsequent striking against object, initial encounter; Y93.K1 Activity, walking an animal; Y92.480 Sidewalk as the place of occurrence of the external cause; Y99.9 Unspecified external cause status; Z20.822 Contact with and (suspected) exposure to COVID-19; Z20.828 Contact with and (suspected) exposure to other viral communicable diseases; Z79.899 Other long term (current) drug therapy; F17.210 Nicotine dependence, cigarettes, uncomplicated; Z71.6 Tobacco abuse counseling
CPT/HCPCS: 72100; 73502; 80048; 81003; 85025; 87635; 97162; 99284; 99285

== ENCOUNTER 2022-06-19 10:36 | Emergency (ER) | payer MEDICARE, MEDICAID, SELFPAY ==
--- NOTE | ~2022-06-19 | CT_ITS ---
EXAMINATION: HEAD CT WITHOUT CONTRAST CERVICAL SPINE CT WITHOUT CONTRAST CLINICAL INFORMATION: fall, head strike, no LOC, on plavix COMPARISON: 11/03/2021 TECHNIQUE: Contiguous axial imaging of the head was performed without the administration of IV contrast. Axial multidetector volumetric images were also performed through the cervical spine without intravenous contrast. Multiplanar reconstructed images in coronal and sagittal orientations were submitted. This CT examination was performed using dose optimization techniques as appropriate, variously including the following: *Automated exposure control *Adjustment of mA and/or kV according to patient size (this includes techniques or standardized protocols for targeted exams where dose is matched to indication/reason for exam; i.e. extremities or head) *Use of iterative reconstruction technique DOSE: 2147 mGy-cm FINDINGS: HEAD: There is no evidence of acute intracranial hemorrhage or territorial infarction. No abnormal mass-effect or midline shift. No extra-axial fluid collections. Choudhury to white matter differentiation is well preserved. Mild enlargement of the ventricles, sulci, and extra-axial CSF spaces is indicative of parenchymal volume loss. Multiple areas of hypoattenuation in the subcortical and periventricular white matter are most consistent with chronic microangiopathic changes. Focal encephalomalacia is seen in the right precentral and postcentral gyri, unchanged. Right thalamic and left caudate lacunar infarcts are also unchanged. Calcific atherosclerosis is present within the cavernous segments of the internal carotid arteries. The soft tissues and osseous structures are normal. The sinuses and mastoid air cells are clear. CERVICAL SPINE: Vertebral body heights are normal. No fractures of the vertebral bodies or posterior elements. Vertebral alignment is normal. No subluxation. Developmental nonfusion of the posterior arch of C1. Degenerative changes are present at the craniocervical and atlantoaxial articulations, though normal alignment is maintained. Mild multilevel degenerative disc disease is characterized by endplate and uncovertebral osteophytes primarily. Mild multilevel facet arthropathy, most notably at C7-T1 bilaterally and on the right at C3-C4. Nuchal ligament ossification is noted. Central canal and neural foramina appear patent without appreciable stenoses. No significant paravertebral soft tissue swelling. Atherosclerotic calcifications are present in the carotid arteries. Imaged portions of the lung apices are clear. CT/CT cervical spine wo IV con IMPRESSION: 1. No acute intracranial pathology. 2. No acute fracture or malalignment in the cervical spine.
--- NOTE | ~2022-06-19 | CT_ITS ---
EXAMINATION: CT LUMBAR SPINE WITHOUT CONTRAST CLINICAL INFORMATION: Midline lumbar pain. COMPARISON: 11/03/2021 TECHNIQUE: Multidetector volumetric imaging was obtained through the lumbar spine without contrast. Multiplanar reformatted images in coronal and sagittal orientations were submitted. This CT examination was performed using dose optimization techniques as appropriate, variously including the following: *Automated exposure control *Adjustment of mA and/or kV according to patient size (this includes techniques or standardized protocols for targeted exams where dose is matched to indication/reason for exam; i.e. extremities or head) *Use of iterative reconstruction technique DLP; 764 mGy-cm FINDINGS: No acute fracture or malalignment. Vertebral body heights are normal. No spondylolisthesis. There are 5 lumbar-type vertebral bodies. 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 Mild osteoarthritis of the right SI joint. Interbody spaces appear relatively well preserved in the lumbar spine. Prominent anterior osteophytes are evident in the lower thoracic spine. There is a 4.8 x 4.8 cm infrarenal abdominal aortic aneurysm which is not appreciably changed from prior allowing for measurement variation. Calcific atherosclerosis is present within the abdominal aorta and iliac arteries. 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 No acute soft tissue findings. T12-L1 and L1-L2: No central canal or neural foraminal stenoses. Normal annular morphology. Mild facet arthropathy. L2-L3: Mild annular bulge. No central canal or neural foraminal stenoses. Moderate facet arthropathy, right side greater than left. L3-L4: Ultr-sm-synoiyrq facet arthropathy. Normal annular morphology. No central canal or neural foraminal stenoses. L4-L5: Mbutpxmd-av-gaharx facet arthropathy on the right, emdw-af-rwvzvftl left facet arthropathy. Very mild disc bulge. No central canal or neural foraminal stenoses. L5-S1: Mkob-vw-prbslqxh facet arthropathy. No central canal or neural foraminal stenoses. CT/CT lumbar spine wo IV con IMPRESSION: 1. No acute fracture or acute malalignment in the lumbar spine. 2. Multilevel facet arthropathy in the lumbar spine, most notably at L4-L5 on the right. No significant central canal or neural foraminal stenoses. 3. Unchanged 4.8 cm infrarenal abdominal aortic aneurysm. Based on published guidelines in J Am Marcelo Radiol 2013; 10(10):789-794 and J Vasc Surg. 2018; 67:2-77, the recommendation for an abdominal aortic aneurysm with diameter 4.5-5.4 cm is vascular consultation (if not previously obtained) and subsequent follow up every 6 months.
[2022-06-19 10:45] VITALS: BP 203/89; PULSE 52; PULSE 53; RESP 16; TEMP 36.7; O2SAT 97; O2SAT 98; BMI 32.5
--- NOTE | 2022-06-19 10:46 | ED.FALL ---
HPI - Fall General Chief Complaint: General Medical Stated Complaint: SLIP/FALL ON ICE W/NECK/LOW BACK PAIN Source: patient Mode of arrival: ambulatory Limitations: no limitations History of Present Illness HPI Narrative: Patient is a 66-year-old male presents to emergency department via EMS. He reports a mechanical fall today, he was outside trying to clean snow off his car, when reaching to clear this no from the roof he slipped and fell backwards landing on his back with positive head strike. There was no loss consciousness. Patient was able to get up on his own, in good his apartment up on the 3rd floor. He noticed increased pain to his neck or back which prompted him to call EMS. He received Toradol 30 mg IM pre-hospital. Patient reported to EMS that he is on a blood dinner but is unaware of the name. Denies any precipitating symptoms prior to fall, reports that this was strictly mechanical. Denies headache, dizziness, lightheadedness, vision changes, chest pain, shortness of breath, difficulty breathing, abdominal pain. Related Data Home Medications Medication Instructions Recorded Confirmed atorvastatin 80 mg tablet 1 tab PO BEDTIME 01/12/21 05/19/22 bupropion HCl 150 mg tablet,12 hr 1 tab PO BID 01/12/21 05/19/22 sustained-release clopidogrel 75 mg tablet 1 tab PO DAILY 01/12/21 05/19/22 fluoxetine 40 mg capsule 1 cap PO DAILY 01/12/21 05/19/22 isosorbide mononitrate 30 mg 1 tab PO DAILY 01/12/21 05/19/22 tablet,extended release 24 hr lamotrigine 100 mg tablet 1 tab PO BID 01/12/21 05/19/22 metoprolol tartrate 25 mg tablet 1 tab PO BID 01/12/21 05/19/22 quetiapine 400 mg tablet,extended 1 tab PO BEDTIME 01/12/21 05/19/22 release 24 hr trazodone 100 mg tablet 2 tab PO BEDTIME PRN Insomnia 01/12/21 05/19/22 aspirin 81 mg tablet,delayed 1 tab PO DAILY 11/03/21 05/19/22 release fluticasone propionate 50 1 spray intranasal BID PRN Allergy 11/03/21 05/19/22 mcg/actuation nasal Symptoms spray,suspension fluoxetine 10 mg capsule 1 cap PO DAILY 05/19/22 05/19/22 Allergies Allergy/AdvReac Type Severity Reaction Status Date / Time clozapine [From Clozaril] Allergy Unknown RASH Verified 08/02/21 09:52 hydroxyzine [From VISTARIL] Allergy Unknown UNKNOWN Verified 08/02/21 09:52 menthol [From Antihistamine] Allergy Unknown RASH Verified 08/02/21 09:52 nicotine [Nicotine] Allergy Unknown GUM- MAKES Verified 08/02/21 09:52 SICK TO STOMACH nut - unspecified [nut] Allergy Unknown SWELLING Verified 08/02/21 09:52 From Antihistamine Allergy Unknown RASH Uncoded 01/12/21 02:28 Review of Systems Review of Systems: Yes all other systems are reviewed and are negative [facility] Past Medical History Attestation statement: The following information was validated with the patient. Source: old records reviewed Medical History Arthritis Hypertension Myocardial infarct Psychiatric diagnosis Surgical History No significant past surgical history Social History Social History Household Members: None Housing: Apartment Do you presently have visiting nurse or other home services: Yes Alcohol intake: current Alcohol intake frequency: a few times a month Alcohol type: beer, wine and hard liquor Patient Tobacco Use Status: Current everyday Tobacco user Tobacco use type: Cigar Advance Directives: No Advance Directives Information Provided: Yes service: No Physical Exam Vital Signs: Vital Signs: Last Vital Signs Temp 98.0 F 06/19/22 10:45 Pulse 50 06/19/22 12:36 Resp 18 06/19/22 12:36 BP 207/97 H 06/19/22 12:36 Pulse Ox 97 06/19/22 12:36 O2 Del Method 06/19/22 12:36 BMI result Body Mass Index 32.5 Appearance: Alert.?Oriented to person, place and time. No acute distress.?Normal affect. Head: Normocephalic, atraumatic Eyes: Pupils equal, round and reactive to light. EOMI. Conjunctiva and sclera normal? No Morfin sign noted. No raccoon eyes noted ENT: No septal hematoma, nares patent bilaterally. External auditory canal normal tympanic membrane pearly rodriguez and intact bilaterally. Dentition normal, no fractured teeth. No lesions or lacerations of oropharynx. Uvula midline. Moist mucous membranes. Neck: Normal inspection.? Neck supple.??No palpable tenderness, step-off, deformities. CVS: Heart sounds normal. Normal heart rate and rhythm.? Pulses normal.?? Respiratory: No respiratory distress.? Lung sounds clear to auscultation bilaterally?? Abdomen: Soft and non-tender. Normoactive bowel sounds. ?? Skin: Skin warm and dry.? Normal skin color.? ? Extremities: No lower extremity edema.? Neuro: Moves all extremities spontaneously. Sensation intact bilaterally. CN II-XII intact. No focal neuro deficits. Course Reevaluation(s) Reevaluation #1: CT of the head and cervical spine without acute intracranial abnormality, evidence of fracture/subluxation/malalignment of the cervical spine. CT of the lumbar spine reveals no acute fracture or malalignment, multilevel facet arthropathy is present, unchanged 4.8 cm infrarenal abdominal aortic aneurysm. Patient is ambulatory with slow steady gait. He would like to be discharged home. At this time I see no reason the patient needs to be held in the emergency department. Time: 12:34 Medical Decision Making Differential Diagnosis Differential Diagnoses: The differential diagnosis associated with the presentation includes (ICH/SAH/dural hematoma, fracture, dislocation, subluxation, lumbar strain, cervical strain) Independent Interpretation I performed an independent interpretation of an: CT Scan Radiology Impression Discussion of test interpretation with radiology: I have reviewed the radiologist's reading. Radiologist Impression: CT/CT cervical spine wo IV con IMPRESSION: 1.? No acute intracranial pathology. 2.? No acute fracture or malalignment in the cervical spine. CT/CT lumbar spine wo IV con IMPRESSION: 1. No acute fracture or acute malalignment in the lumbar spine. ? 2. Multilevel facet arthropathy in the lumbar spine, most notably at L4-L5 on the right. No significant central canal or neural foraminal stenoses. ? 3. Unchanged 4.8 cm infrarenal abdominal aortic aneurysm. Based on published guidelines in J Am Marcelo Radiol 2013; 10(10):789-794 and J Vasc Surg. 2018; 67:2-77, the recommendation for an abdominal aortic aneurysm with diameter 4.5-5.4 cm is vascular consultation (if not previously obtained) and subsequent follow up every 6 months. Independent Historian Clinical information obtained from an independent historian. History obtained from or confirmed by: EMS (Obtained history from EMS is reported in HPI) External Record Review External record reviewed: Office record Discharge Plan Discharge Clinical Impression: Fall, Lumbar strain, Cervical strain, Closed head injury Patient Disposition: Home, Self-Care Instructions: Fall Prevention for Older Adults (ED), Back Pain (ED) Additional Instructions: CT imaging of your head, neck, and lower back today did not reveal any new injury from your fall. This is very reassuring. You can take Tylenol 500 mg, 2 tablets (1,000mg) every 4-6 hours as needed for pain, but not to exceed 3 doses daily (3,000mg). You were able to walk in the emergency department without any difficulty, and felt comfortable with discharge home. Please continue with your [facility]NA services. You may follow-up with your primary care doctor as needed for any persistent symptoms. You may return back to the emergency department with any new or worsening symptoms or concerns. ? If you develop headache, dizziness, lightheadedness, chest pain, shortness of breath, nausea persistent vomiting, abdominal pain, numbness or tingling of the arms or legs, weakness he should return back to emergency department for evaluation. Prescriptions: No Action fluoxetine 40 mg capsule 1 cap PO DAILY Rx Instructions: take with 10mg; total dose 50mg bupropion HCl 150 mg tablet sustained-release 12 hr 1 tab PO BID atorvastatin 80 mg tablet 1 tab PO BEDTIME isosorbide mononitrate 30 mg tablet extended release 24 hr 1 tab PO DAILY clopidogrel 75 mg tablet 1 tab PO DAILY trazodone 100 mg tablet 2 tab PO BEDTIME PRN (Reason: Insomnia) lamotrigine 100 mg tablet 1 tab PO BID metoprolol tartrate 25 mg tablet 1 tab PO BID quetiapine 400 mg tablet extended release 24 hr 1 tab PO BEDTIME fluoxetine 10 mg capsule 1 cap PO DAILY Rx Instructions: take with 40mg; total dose 50mg aspirin 81 mg tablet,delayed release (DR/EC) 1 tab PO DAILY fluticasone propionate [Flonase] 50 mcg/actuation Dalton,Suspension 1 spray INTRANASAL BID PRN (Reason: Allergy Symptoms) Rx Instructions: administer into each nostril Referrals: Physician,Unknown J [Primary Care Provider] -
[2022-06-19 12:36] VITALS: BP 207/97; PULSE 50; RESP 18; O2SAT 97
[2022-06-19] MEDS: Acetaminophen 325 MG TABLET 975 MG PO (12:55)
== END 2022-06-19 13:07 | disposition home or self-care (01) ==
PROVIDERS: Emergency Provider Emergency Medicine
DX: S39.012A Strain of muscle, fascia and tendon of lower back, initial encounter (principal); M54.2 Cervicalgia; R51.9 Headache, unspecified; W00.0XXA Fall on same level due to ice and snow, initial encounter; Y93.9 Activity, unspecified; Y92.9 Unspecified place or not applicable; Y99.9 Unspecified external cause status
CPT/HCPCS: 70450; 72125; 72131; 99283

== ENCOUNTER 2022-09-11 22:00 | Inpatient (IN) | payer MEDICARE, MEDICAID, SELFPAY ==
--- NOTE | ~2022-09-11 | XR_ITS ---
EXAMINATION: XR CHEST CLINICAL INFORMATION: Chest pain COMPARISON: CT of chest dated 11/03/2021 TECHNIQUE: Frontal view of the chest was obtained. FINDINGS: No significant abnormality is noted involving the heart, lungs, mediastinum, bony thorax or soft tissues. XR/XR chest 1V IMPRESSION: Unremarkable examination.
--- NOTE | 2022-09-11 07:13 | ECG_ITS ---
Test Reason : cp Blood Pressure : / mmHG Vent. Rate : 054 BPM Atrial Rate : 054 BPM P-R Int : 164 ms QRS Dur : 086 ms QT Int : 468 ms P-R-T Axes : 011 -15 003 degrees QTc Int : 443 ms Sinus bradycardia Minimal voltage criteria for LVH, may be normal variant ( R in aVL ) Borderline ECG When compared with ECG of 03-NOV-2021 16:47, Nonspecific T wave abnormality no longer evident in Anterior leads Referred By: Tank Mayfield Electronically Signed By:NETTIE ALVARADO
[2022-09-11 22:17] VITALS: BP 158/74; BP 177/85; PULSE 55; PULSE 58; RESP 12; TEMP 36.6; O2SAT 96; O2SAT 97; BMI 32.5
--- NOTE | 2022-09-11 22:20 | ED_ITS ---
HPI - Chest Pain General Chief Complaint: Chest Pain Stated Complaint: chest pain Time Seen by Provider: 09/11/22 22:07 Source: patient Mode of arrival: ambulatory Limitations: no limitations History of Present Illness HPI narrative: Patient with history of hypertension, CAD status post stent placement bipolar disorder history of CVA with residual mild left-sided weakness comes here for chest pain for last 3 days pain is on left side sharp in character, with nausea similar to that when he had [place] patient been taking nitroglycerin almost 8-10 tablets a day. Denies any shortness of breath no radiation of the pain Related Data Home Medications Medication Instructions Recorded Confirmed atorvastatin 80 mg tablet 1 tab PO BEDTIME 01/12/21 09/12/22 bupropion HCl 150 mg tablet,12 hr 1 tab PO BID 01/12/21 09/12/22 sustained-release clopidogrel 75 mg tablet 1 tab PO DAILY 01/12/21 09/12/22 fluoxetine 40 mg capsule 1 cap PO DAILY 01/12/21 09/12/22 isosorbide mononitrate 30 mg 1 tab PO DAILY 01/12/21 09/12/22 tablet,extended release 24 hr lamotrigine 100 mg tablet 1 tab PO BID 01/12/21 09/12/22 metoprolol tartrate 25 mg tablet 1 tab PO BID 01/12/21 09/12/22 quetiapine 400 mg tablet,extended 1 tab PO BEDTIME 01/12/21 09/12/22 release 24 hr trazodone 100 mg tablet 2 tab PO BEDTIME PRN Insomnia 01/12/21 09/12/22 aspirin 81 mg tablet,delayed 1 tab PO DAILY 11/03/21 09/12/22 release fluticasone propionate 50 1 spray intranasal BID PRN Allergy 11/03/21 09/12/22 mcg/actuation nasal Symptoms spray,suspension fluoxetine 10 mg capsule 1 cap PO DAILY 05/19/22 09/12/22 lamotrigine 25 mg tablet 100 mg PO BID 09/12/22 09/12/22 Allergies Allergy/AdvReac Type Severity Reaction Status Date / Time clozapine [From Clozaril] Allergy Unknown RASH Verified 08/02/21 09:52 hydroxyzine [From VISTARIL] Allergy Unknown UNKNOWN Verified 08/02/21 09:52 menthol [From Antihistamine] Allergy Unknown RASH Verified 08/02/21 09:52 nicotine [Nicotine] Allergy Unknown GUM- MAKES Verified 08/02/21 09:52 SICK TO STOMACH nut - unspecified [nut] Allergy Unknown SWELLING Verified 08/02/21 09:52 From Antihistamine Allergy Unknown RASH Uncoded 01/12/21 02:28 Review of Systems Review of Systems: Yes all other systems are reviewed and are negative [facility] Past Medical History Medical History Arthritis Hypertension Myocardial infarct Psychiatric diagnosis Surgical History No significant past surgical history Social History Social History Household Members: None Housing: Apartment Do you presently have visiting nurse or other home services: Yes Alcohol intake: current Alcohol intake frequency: holidays/special occasions only Alcohol type: beer, wine and hard liquor Patient Tobacco Use Status: Current everyday Tobacco user Tobacco use type: Cigar Smoked in Last 30 Days: Yes Use of substances other than those prescribed or required for medical reasons: No Advance Directives: No Advance Directives Information Provided: No service: No Physical Exam Vital Signs: Vital Signs: Last Vital Signs Temp 98 F 09/11/22 22:21 Pulse 54 09/12/22 00:24 Resp 12 09/12/22 00:24 BP 162/82 H 09/12/22 00:24 Pulse Ox 98 09/12/22 00:24 O2 Del Method Room Air 09/12/22 00:24 BMI result Body Mass Index 32.5 Appearance: Alert. Oriented X3. No acute distress. Eyes: PERRLA, No Nystagmus ENT: Pharynx normal. Oral Mucosa moist Neck: Normal inspection. Neck supple. CVS: Normal heart rate and rhythm. Pulses normal. No murmur/rub Respiratory: No respiratory distress. Equal air entry bilateral, no wheezing/rales/rhonchi Abdomen: Soft and nontender. Bowel sounds are present, no mass palpable, no CVA tenderness Skin: Skin warm and dry. Normal skin color. Normal skin turgor. Extremities: No lower extremity edema. No calf tenderness Neuro: Oriented X 3. No motor deficit. No sensory deficit.No cerebellar signs , cranial nerves II-XII intact Medications Administered Generic Name Dose Route Start Last Admin Trade Name Freq PRN Reason Stop Dose Admin Sodium Chloride 1,000 mls @ 999 mls/hr 09/12/22 00:35 09/12/22 00:50 Ns IV 09/12/22 01:35 999 mls/hr .Q1H1M ONE Administration Discontinued Medications Generic Name Dose Route Start Last Admin Trade Name Darshan PRN Reason Stop Dose Admin Nitroglycerin 1 inch 09/11/22 22:27 09/11/22 22:33 Nitroglycerin 2 % Oint 1 Gm Packet TRANSDERMA 09/11/22 22:28 1 inch ONCE ONE Administration Medical Decision Making Medical Decision Making [facility] Narrative: Patient has significant vascular disease with chest pain requiring high amount of nitroglycerin no acute EKG changes for ischemia no significant sensitive troponin but patient has a high risk will admit patient to rule out ACS/unstable angina Differential Diagnosis ACS/unstable angina Consult Healthcare Provider Management of the patient was discussed with: Hospitalist Lab Data [facility] Lab Attestation statement: I reviewed the patient's lab results. 09/11/22 23:57 09/11/22 23:57 Labs: Lab Results 09/11/22 09/11/22 09/11/22 Range/Units 23:57 23:57 23:57 WBC 11.4 H (4.8-10.8) X10*3/uL RBC 4.45 L (4.60-5.80) X10*6/uL Hgb 13.3 L (14.0-18.0) g/dl Hct 40.9 L (42.0-52.0) % MCV 91.9 (80.0-98.0) fL MCH 29.9 (27.0-33.0) pg MCHC 32.5 (31.0-36.0) g/dl RDW 14.5 (11.0-16.0) % Plt Count 206 (160-400) X10*3/uL MPV 10.6 (9.4-12.4) fL Immature Gran % (Auto) 0.7 H (0.0-0.4) % Neut % (Auto) 62.7 (45-73) % Lymph % (Auto) 25.9 (20-40) % [place] % (Auto) 6.9 (2-11) % Eos % (Auto) 2.7 (0-4) % Baso % (Auto) 1.1 (0-2) % Lymph # (Auto) 2.9 (1.2-4.9) X10*3/uL [place] # (Auto) 0.8 (0.1-1.2) X10*3/uL Eos # (Auto) 0.3 (0.0-0.4) X10*3/uL Baso # (Auto) 0.1 (0.0-0.2) X10*3/uL Abs Immat Gran (auto) 0.08 H (0.00-0.03) X10*3/uL Absolute Neuts (auto) 7.1 (2.0-8.3) x10*3/uL Absolute Nucleated RBC 0.000 (0.0-0.012) X10*3/uL Nucleated RBC % (auto) 0.0 (0.0-0.2) /100WBC PT 11.2 (10.0-13.1) SEC INR 1.0 (0.9-1.1) APTT 23.1 L (26.0-36.4) SEC Sodium 138 (135-145) mmol/L Potassium 4.6 (3.3-5.1) mmol/L Chloride 108 (96-108) mmol/L Carbon Dioxide 25 (22-29) mmol/L Anion Gap 10 L (12-20) BUN 36 H (9-16) mg/dL Creatinine 1.84 H (0.5-1.4) mg/dL Estim Creat Clear Calc 50.3 Estimated GFR 37 Random Glucose 112 (60-115) mg/dL Calcium 8.8 (8.4-10.2) mg/dL Magnesium 2.0 (1.6-2.6) mg/dL Total Bilirubin 0.4 (0.0-1.0) mg/dL AST 20 (5-37) U/L ALT 27 (0-40) U/L Alkaline Phosphatase 92 (39-117) U/L Troponin I High Sens (<3.5-35.0) ng/L Total Protein 6.0 L (6.5-8.0) g/dL Albumin 3.2 L (3.5-5.0) g/dL 09/11/22 Range/Units 23:57 WBC (4.8-10.8) X10*3/uL RBC (4.60-5.80) X10*6/uL Hgb (14.0-18.0) g/dl Hct (42.0-52.0) % MCV (80.0-98.0) fL MCH (27.0-33.0) pg MCHC (31.0-36.0) g/dl RDW (11.0-16.0) % Plt Count (160-400) X10*3/uL MPV (9.4-12.4) fL Immature Gran % (Auto) (0.0-0.4) % Neut % (Auto) (45-73) % Lymph % (Auto) (20-40) % [place] % (Auto) (2-11) % Eos % (Auto) (0-4) % Baso % (Auto) (0-2) % Lymph # (Auto) (1.2-4.9) X10*3/uL [place] # (Auto) (0.1-1.2) X10*3/uL Eos # (Auto) (0.0-0.4) X10*3/uL Baso # (Auto) (0.0-0.2) X10*3/uL Abs Immat Gran (auto) (0.00-0.03) X10*3/uL Absolute Neuts (auto) (2.0-8.3) x10*3/uL Absolute Nucleated RBC (0.0-0.012) X10*3/uL Nucleated RBC % (auto) (0.0-0.2) /100WBC PT (10.0-13.1) SEC INR (0.9-1.1) APTT (26.0-36.4) SEC Sodium (135-145) mmol/L Potassium (3.3-5.1) mmol/L Chloride (96-108) mmol/L Carbon Dioxide (22-29) mmol/L Anion Gap (12-20) BUN (9-16) mg/dL Creatinine (0.5-1.4) mg/dL Estim Creat Clear Calc Estimated GFR Random Glucose (60-115) mg/dL Calcium (8.4-10.2) mg/dL Magnesium (1.6-2.6) mg/dL Total Bilirubin (0.0-1.0) mg/dL AST (5-37) U/L ALT (0-40) U/L Alkaline Phosphatase (39-117) U/L Troponin I High Sens 9.2 (<3.5-35.0) ng/L Total Protein (6.5-8.0) g/dL Albumin (3.5-5.0) g/dL Independent Interpretation I performed an independent interpretation of an: EKG Interpretation: Sinus bradycardia heart rate 54 beats per minute LVH no acute ST-T changes no acute ischemia Discharge Plan Discharge Clinical Impression: ACS (acute coronary syndrome) Patient Disposition: Admitted As Inpatient
[2022-09-11 22:21] VITALS: BP 158/74; PULSE 55; RESP 12; TEMP 36.6; O2SAT 98
--- NOTE | 2022-09-11 22:23 | MHC.EDTECH ---
ekg done @ [id number] by this PCT
[2022-09-11] MEDS: Nitroglycerin 2 % Oint 1 GM Packet 1 INCH TRANSDERMA (22:33)
[2022-09-12] VITALS (13 sets, daily range): BP systolic 137–222; BP diastolic 61–106; PULSE 45–62; RESP 10–18; TEMP 36.2–36.8; O2SAT 95–98; BMI 33.2
[2022-09-12 00:01] LABS: MANUAL DIFF FLAG NO
[2022-09-12 00:06] LABS: Basophils Absolute Auto 0.1 X10*3/uL (0.0-0.2); Basophils Percent Auto 1.1 % (0-2); Eosinophils Absolute Auto 0.3 X10*3/uL (0.0-0.4); Eosinophils Percent Auto 2.7 % (0-4); Hematocrit 40.9 % (42.0-52.0); Hemoglobin 13.3 g/dl (14.0-18.0); Imm Gran Abs Auto 0.08 X10*3/uL (0.00-0.03); Imm Gran Pct Auto 0.7 % (0.0-0.4); Lymphocytes Absolute Auto 2.9 X10*3/uL (1.2-4.9); Lymphocytes Percent Auto 25.9 % (20-40); Mean Corpuscular HGB Conc 32.5 g/dl (31.0-36.0); Mean Corpuscular Hemoglobin 29.9 pg (27.0-33.0); Mean Corpuscular Volume 91.9 fL (80.0-98.0); Mean Platelet Volume 10.6 fL (9.4-12.4); Monocytes Absolute Auto 0.8 X10*3/uL (0.1-1.2); Monocytes Percent Auto 6.9 % (2-11); Neutrophils Absolute Auto 7.1 x10*3/uL (2.0-8.3); Neutrophils Percent Auto 62.7 % (45-73); Platelet Count 206 X10*3/uL (160-400); Red Blood Count 4.45 X10*6/uL (4.60-5.80); Red Cell Distribution Width 14.5 % (11.0-16.0); White Blood Count 11.4 X10*3/uL (4.8-10.8)
[2022-09-12 00:09] LABS: Prothrombin Time 11.2 SEC (10.0-13.1)
[2022-09-12 00:19] LABS: Alanine Aminotransferase 27 U/L (0-40); Albumin Level 3.2 g/dL (3.5-5.0); Alkaline Phosphatase 92 U/L (39-117); Anion Gap 10 (12-20); Aspartate Amino Transferase 20 U/L (5-37); Bilirubin Total 0.4 mg/dL (0.0-1.0); Blood Urea Nitrogen 36 mg/dL (9-16); Calcium 8.8 mg/dL (8.4-10.2); Carbon Dioxide 25 mmol/L (22-29); Chloride 108 mmol/L (96-108); Creatinine Clr Calc Pharmacy 50.3; Estimated Glomerular Filt Rate 37; Glucose Random 112 mg/dL (60-115); Potassium 4.6 mmol/L (3.3-5.1); Sodium 138 mmol/L (135-145)
[2022-09-12 00:21] LABS: Troponin-I High Sensitivity 9.2 ng/L (<3.5-35.0)
[2022-09-12 00:30] LABS: Partial Thromboplastin Time 23.1 SEC (26.0-36.4)
--- NOTE | 2022-09-12 00:47 | MHC.EDTECH ---
Call out to [facility] @ [phone] requesting for medical records for Hospitalist
[2022-09-12] MEDS: 0.9 % Sodium Chloride 1,000 ML 999 ML IV (00:50)
--- NOTE | 2022-09-12 01:12 | PM.IMHP ---
History of Present Illness Date of Service: 09/12/22 Chief Complaint: chest pain 67-year-old male with past medical history of CAD status post stent, on DAPT, hypertension, history of CVA, COPD,Bipolar disorder, presents to the hospital with complaints of chest pain. Patient describes the pain as midsternal, radiating to left shoulder, occurring at rest, no exacerbating factors, lasting 10-20 minutes, resolving with nitroglycerin pills. He states that he took about 7-8 nitroglycerin pills with the pain persisting therefore he came into the hospital. Describes the pain as sharp, 10/10. similar to previous heart attack. patient reports chronic shortness of breath, no palpitations, no abdominal pain nausea or vomiting, no diarrhea constipation, no urinary symptoms and no lower extremity edema. On arrival to the ED patient found to have blood pressure of 158/74, other vitals stable Labs are significant for WBC count of 11.4, hemoglobin of 13.3, hematocrit 40.9, initial troponin of 9, repeat pending, creatinine of 1.84 which appears to be around his baseline, EKG shows no acute changes, chest x-r is unremarkable given his significant cardiac history patient will be admitted for further evaluation Review of Systems Review of Systems: Yes all other systems are reviewed and are negative [facility] Medical History Arthritis Bilateral carotid artery stenosis History of CVA (cerebrovascular accident) Hypertension Leg pain, bilateral Myocardial infarct Psychiatric diagnosis Stroke due to stenosis of carotid artery Surgical History No significant past surgical history Social History Household Members: None Housing: Apartment Do you presently have visiting nurse or other home services: Yes Alcohol intake: current Alcohol intake frequency: holidays/special occasions only Alcohol type: beer, wine and hard liquor Patient Tobacco Use Status: Current everyday Tobacco user Tobacco use type: Cigar Smoked in Last 30 Days: Yes Use of substances other than those prescribed or required for medical reasons: No Advance Directives: No Advance Directives Information Provided: No service: No Meds Allergies Allergy/AdvReac Type Severity Reaction Status Date / Time clozapine [From Clozaril] Allergy Unknown RASH Verified 08/02/21 09:52 hydroxyzine [From VISTARIL] Allergy Unknown UNKNOWN Verified 08/02/21 09:52 menthol [From Antihistamine] Allergy Unknown RASH Verified 08/02/21 09:52 nicotine [Nicotine] Allergy Unknown GUM- MAKES Verified 08/02/21 09:52 SICK TO STOMACH nut - unspecified [nut] Allergy Unknown SWELLING Verified 08/02/21 09:52 From Antihistamine Allergy Unknown RASH Uncoded 01/12/21 02:28 Active Medications: Current Medications Acetaminophen (Acetaminophen 325 Mg Tablet) 650 mg PO Q6H PRN PRN Reason: Pain, Mild (Pain Scale 1-3) Docusate Sodium (Docusate Sodium 100 Mg Capsule) 100 mg PO DAILY PRN PRN Reason: Constipation Enoxaparin Sodium (Enoxaparin Sodium 40 Mg/0.4 Ml Syringe) 40 mg SUBCUT Q24H [facility] Sodium Chloride (Ns) 1,000 mls @ 999 mls/hr IV .Q1H1M ONE Stop: 09/12/22 01:35 Last Admin: 09/12/22 00:50 Dose: 999 mls/hr Morphine Sulfate (Morphine Sulfate 4 Mg/Ml Cartridge) 4 mg IVPUSH Q4H PRN; Protocol PRN Reason: Chest Pain Ondansetron HCl (Ondansetron Hcl 4 Mg/2 Ml Vial) 4 mg IVPUSH Q8H PRN PRN Reason: Nausea and Vomiting Sodium Chloride (0.9 % Sodium Chloride Flush 3 Ml Syringe) 3 ml IVFLUSH QSHIFT [facility] Home Medications Medication Instructions Recorded Confirmed Last Taken Type atorvastatin 80 mg tablet 1 tab PO BEDTIME 01/12/21 09/12/22 05/18/22 History bupropion HCl 150 mg tablet,12 hr 1 tab PO BID 01/12/21 09/12/22 05/19/22 09:00 History sustained-release clopidogrel 75 mg tablet 1 tab PO DAILY 01/12/21 09/12/22 05/19/22 09:00 History fluoxetine 40 mg capsule 1 cap PO DAILY 01/12/21 09/12/22 05/19/22 09:00 History isosorbide mononitrate 30 mg 1 tab PO DAILY 01/12/21 09/12/22 05/19/22 09:00 History tablet,extended release 24 hr lamotrigine 100 mg tablet 1 tab PO BID 01/12/21 09/12/22 05/19/22 09:00 History metoprolol tartrate 25 mg tablet 1 tab PO BID 01/12/21 09/12/22 05/19/22 09:00 History quetiapine 400 mg tablet,extended 1 tab PO BEDTIME 01/12/21 09/12/22 05/18/22 History release 24 hr trazodone 100 mg tablet 2 tab PO BEDTIME PRN Insomnia 01/12/21 09/12/22 05/18/22 History aspirin 81 mg tablet,delayed 1 tab PO DAILY 11/03/21 09/12/22 05/19/22 09:00 History release fluticasone propionate 50 1 spray intranasal BID PRN Allergy 11/03/21 09/12/22 Unknown History mcg/actuation nasal Symptoms spray,suspension fluoxetine 10 mg capsule 1 cap PO DAILY 05/19/22 09/12/22 05/19/22 09:00 History lamotrigine 25 mg tablet 100 mg PO BID 09/12/22 09/12/22 Unknown History Physical Exam Vital Signs and Narrative: Vital Signs: Last Vital Signs Temp 98 F 09/11/22 22:21 Pulse 54 09/12/22 00:24 Resp 12 09/12/22 00:24 BP 162/82 H 09/12/22 00:24 Pulse Ox 98 09/12/22 00:24 O2 Del Method Room Air 09/12/22 00:24 BMI result Body Mass Index 32.5 Const: Other: patient is sleeping but arousable, answers questions appropriately albeit not too eager General: cooperative and no acute distress Eyes: General: appearance normal, both eyes and all related structures Resp: Effort & Inspection: normal respiratory effort Auscultation: clear to auscultation bilaterally Cardio: Rate: regular rate Rhythm: regular rhythm GI: Palpation (GI): Soft to palpation Auscultation: normal bowel sounds Skin: General skin exam: no rashes or lesions noted Neuro: Cognition (Neuro): normal cognition Extrem: General: Yes normal to inspection and Yes no pedal edema Results Labs 09/11/22 23:57 09/11/22 23:57 Labs: Laboratory Results - last 24 hr 09/11/22 09/11/22 09/11/22 23:57 23:57 23:57 MCV 91.9 MCH 29.9 MCHC 32.5 RDW 14.5 Plt Count 206 MPV 10.6 Immature Gran % (Auto) 0.7 H Neut % (Auto) 62.7 Lymph % (Auto) 25.9 [place] % (Auto) 6.9 Eos % (Auto) 2.7 Baso % (Auto) 1.1 Lymph # (Auto) 2.9 [place] # (Auto) 0.8 Eos # (Auto) 0.3 Baso # (Auto) 0.1 Abs Immat Gran (auto) 0.08 H Absolute Neuts (auto) 7.1 Absolute Nucleated RBC 0.000 Nucleated RBC % (auto) 0.0 PT 11.2 INR 1.0 APTT 23.1 L Anion Gap 10 L Estim Creat Clear Calc 50.3 Estimated GFR 37 Random Glucose 112 Calcium 8.8 Magnesium 2.0 Total Bilirubin 0.4 AST 20 ALT 27 Alkaline Phosphatase 92 Troponin I High Sens Total Protein 6.0 L Albumin 3.2 L 09/11/22 23:57 MCV MCH MCHC RDW Plt Count MPV Immature Gran % (Auto) Neut % (Auto) Lymph % (Auto) [place] % (Auto) Eos % (Auto) Baso % (Auto) Lymph # (Auto) [place] # (Auto) Eos # (Auto) Baso # (Auto) Abs Immat Gran (auto) Absolute Neuts (auto) Absolute Nucleated RBC Nucleated RBC % (auto) PT INR APTT Anion Gap Estim Creat Clear Calc Estimated GFR Random Glucose Calcium Magnesium Total Bilirubin AST ALT Alkaline Phosphatase Troponin I High Sens 9.2 Total Protein Albumin Imaging Radiologist's Impressions: Impressions Chest X-Ray 09/11/22 23:46 IMPRESSION: Unremarkable examination. Assessment and Plan (1) Chest pain: Status: Acute Plan 67-year-old with past medical history of CAD status post stents, on DAPT last stent placed about a year ago per patient presents to the hospital with complaints of chest pain # chest pain - rule out ACS - troponin negative x1, will trend - EKG negative for any acute changes suggestive of ACS - given his significant history, will admit to telemetry, will obtain Cardiology consultation # CAD - continue metoprolol, aspirin, and Plavix # bipolar disorder - continue fluoxetine, Seroquel, trazodone # history of CVA - ASA and statin to continue - continue lamotrigine DVT prophylaxis: Eliquis Time Spent With Patient Time: Total time managing care of this patient today ____ minutes. Quality Stroke Does the patient have a stroke diagnosis?: No VTE Prior VTE?: No VTE Risk Level:: Medical - moderate - high VTE Device Contraindication: Treatment Not Indicated VTE Drug Contraindication: N/A - Med Ordered
[2022-09-12 01:55] LABS: B Type Natriuretic Peptide 118 pg/mL (<100)
[2022-09-12 02:00] LABS: Troponin-I High Sensitivity 14.6 ng/L (<3.5-35.0)
[2022-09-12] MEDS: Metoprolol Tartrate 25 MG TABLET PO ×3 (02:08→20:36)
[2022-09-12] MEDS: Enoxaparin Sodium 40 MG/0.4 ML SYRINGE SUBCUT (02:08)
[2022-09-12] MEDS: Atorvastatin Calcium 80 MG TABLET PO ×2 (02:08→20:37)
[2022-09-12] MEDS: lamoTRIgine 100 MG TABLET PO ×3 (02:08→20:37)
--- NOTE | 2022-09-12 06:00 | PC.NURSE ---
aware of high BP. Ordering hydralazine
[2022-09-12] MEDS: hydrALAZINE HCl 20 MG/ML VIAL 5 MG IVPUSH (06:03)
[2022-09-12 06:19] LABS: Alanine Aminotransferase 26 U/L (0-40); Albumin Level 3.2 g/dL (3.5-5.0); Alkaline Phosphatase 87 U/L (39-117); Anion Gap 11 (12-20); Aspartate Amino Transferase 18 U/L (5-37); Bilirubin Total 0.5 mg/dL (0.0-1.0); Blood Urea Nitrogen 32 mg/dL (9-16); Calcium 8.5 mg/dL (8.4-10.2); Carbon Dioxide 23 mmol/L (22-29); Chloride 109 mmol/L (96-108); Creatinine Clr Calc Pharmacy 57.1; Estimated Glomerular Filt Rate 43; Glucose Random 95 mg/dL (60-115); Potassium 4.5 mmol/L (3.3-5.1); Sodium 138 mmol/L (135-145); Total Protein 5.7 g/dL (6.5-8.0)
--- NOTE | 2022-09-12 07:00 | CA_ITS ---
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 The calculated ejection fraction is 67% by biplane method. - Evidence suggests grade II (moderate) diastolic dysfunction. - The basal inferior segment is hypokinetic. - The left atrium is severely dilated. - There is mild dilatation of the ascending aorta measuring 4.10 cm. Findings Procedure Information Contrast agent, definity, is being given per protocol without apparent complications. Left Ventricle Normal left ventricular cavity size. There is moderately increased left ventricular wall thickness. The left ventricular systolic function is normal. The calculated ejection fraction is 67% by biplane method. E/E prime ratio is >15, consistent with elevated filling pressures. Evidence suggests grade II (moderate) diastolic dysfunction. Wall Motion Rest Echo Findings The basal inferior segment is hypokinetic. Right Ventricle Normal right ventricular cavity size and systolic function. Atria The left atrium is severely dilated. The right atrium is mildly dilated. Aortic Valve There is a normal trileaflet aortic valve. There is no aortic valve stenosis. There is no aortic valve regurgitation. Mitral Valve The mitral valve appears normal. There is no mitral valve regurgitation. There is no mitral valve stenosis. Pulmonic Valve There is trace pulmonic valve regurgitation. Tricuspid Valve There is no tricuspid valve regurgitation. There is no evidence of pulmonary hypertension. Great Vessels There is mild dilatation of the ascending aorta measuring 4.10 cm. Venous The inferior vena cava is normal in size and collapses greater than 50% with inspiration. Pericardium/Pleural There is no evidence of pericardial effusion. Prior Study Comparison No prior study available for comparison. Measurements 2D Linear Measurements IVSd: 1.28 0.6-0.9/0.6-1.0 cm LVIDd: 4.62 3.9-5.3/4.2-5.9 cm LVIDd Index: 2.01 2.4-3.2/2.2-3.1 cm/m2 LVIDs: 2.69 2.0-3.6 cm LVPWd: 1.31 0.7-1.1 cm Ao Root: 3.30 2.1-3.5 cm LA Diam: 5.20 2.7-3.8/3.0-4.0 cm LAIDs Index: 2.26 1.5-2.3 cm/m2 LV Mass: 287.24 67-162/88-224 g LV Mass Index: 124.89 43-95/49-115 g/m2 LVOT Diam: 2.20 3.0+(-)1.3 cm 2D Systolic Function EF 4C: 69.30 >55% EF 2C: 66.80 >55% EF BiP: 67.40 >55% Mitral Valve MV Pk E: 0.90 MV PK A: 0.51 MV Decel Time: 196.00 E/A: 1.80 E'Lateral: 6.20 E'Medial: 5.98 E/E' Med: 15.10 E/E' Lat: 14.60 PHT: 57.00 MVA PHT: 3.86 Decel Mcmullen: 4.62 Aortic Valve AoV Pk Michael: 1.19 AoV Mn Michael: 0.76 AoV VTI: 0.30 AoV Pk Grad: 6.00 Aov Mn Grad: 3.00 NIKKIE Cont.VTI: 2.93 LVOT LVOT Pk Michael: 0.97 LVOT Mn Michael: 0.54 LVOT VTI: 0.23 LVOT Pk Grad: 4.00 LVOT Mn Grad: 2.00 LVOT Diam: 2.20 LVOT Area: 3.80 Diastolic Function MV Pk E: 0.90 MV Pk A: 0.51 E/A: 1.80 E'Medial: 5.98 E/E' Med: 15.10 E' Laterial: 6.20 E/E' Lat: 14.60 Right Ventricle TAPSE (mm): 26.00 TVS' Michael: 13.00 Tricuspid Valve TR Pk Michael: 2.10 TR Pk Grad: 18.00 RA Press: 3.00 RVSP: 21.00 Great Vessels Aorta Ao Root-2D: 3.30 2.0-3.7 cm Ao Asc: 4.10 2.1-3.4 cm Pulmonary Valve PV Pk Michael: 0.89 Peak PV Grad: 3.00 Updated in Other Vendor System with Status of Final Michael Littlejohn MD electronically signed on 09/12/2022 12:38:20 PM with status of Final
[2022-09-12] MEDS: Aspirin Enteric Coated 81 MG TABLET.DR PO (08:02)
[2022-09-12] MEDS: 0.9 % Sodium Chloride Flush 3 ML SYRINGE IVFLUSH (08:02)
[2022-09-12] MEDS: Clopidogrel Bisulfate 75 MG TABLET PO (08:02)
[2022-09-12] MEDS: FLUoxetine HCl 20 MG CAPSULE 40 MG PO (08:02)
[2022-09-12] MEDS: buPROPion HCl XL 300 MG TAB.ER.24H PO (08:02)
[2022-09-12] MEDS: Isosorbide Mononitrate 30 MG TAB.ER.24H PO (08:02)
[2022-09-12] MEDS: QUEtiapine Fumarate 200 MG TABLET PO ×2 (08:02→20:37)
[2022-09-12] MEDS: FLUoxetine HCl 10 MG CAPSULE PO (08:02)
--- NOTE | 2022-09-12 09:13 | P.CONCA_ITS ---
History of Present Illness History of Present Illness Date of Service: 09/12/22 Chief complaint: Unstable Angina Narrative: This is a cardiology consultation regarding chest pain. Patient has a history of coronary artery disease. Based on cardiac catheterization from 2020, underwent PCI of proximal LAD for severe re stenosis of prior LAD stents and also has chronic total occlusion of the RCA. Patent left PLV stent. It seems that he might be following with [facility] but we need to call them to confirm. Multiple medical comorbidities. Presentation is for chest pa in. He states that he is getting midsternal chest pain that can happen with and without exertion. Happening in when he is just resting. There is a solution with nitroglycerin. According to H and P, he had taken 7-8 nitroglycerin pills prior to presentation. Blood pressure in the emergency room was quite high. Currently, patient states that he is comfortable. Otherwise, he states he is an occasional smoker. No drugs. Lives alone. Review of Systems Review of Systems: Yes all other systems are reviewed and are negative Constitutional: Constitutional: Reports as per HPI and Reports no additional constitutional complaints Eyes: Eyes: Reports as per HPI and Denies no additional eye complaints ENT: Denies system reviewed and no additional complaints, except as documented and Reports as per HPI Cardiovascular: Cardiovascular: Reports as per HPI, Reports no additional cardiovascular complaints, Denies acrocyanosis, Denies cool extremities, Reports chest pain, Denies leg edema, Denies lightheadedness, Denies palpitations and Denies dyspnea Respiratory: Respiratory: Reports as per HPI, Denies no additional respiratory complaints and Denies dyspnea Gastrointestinal: Gastrointestinal: Reports as per HPI and Denies no additional gastrointestinal complaints Genitourinary: Genitourinary: Reports no additional male genitourinary complaints and Reports as per HPI Musculoskeletal: Musculoskeletal: Reports no additional musculoskeletal complaints and Reports as per HPI Integumentary/Breasts: Skin/Breast: Reports system reviewed and no additional complaints, except as docu Neurologic: Reports system reviewed and no additional complaints, except as documented and Reports as per HPI Psychiatric: Psychiatric: Reports no additional psychiatric complaints and R eports as per HPI Endocrine: Endocrine: Reports no additional endocrine complaints, Reports as per HPI and Denies palpitations Hematologic/Lymphatic: Hematologic/Lymphatic: Reports no additional hematologic/lymphatic complaints and Reports as per HPI Allergic/Immunologic: Allergic/Immunologic: Reports no additional allergic/immunologic complaints and Reports as per [facility] Past Medical History Medical History Arthritis Bilateral carotid artery stenosis History of CVA (cerebrovascular accident) Hypertension Leg pain, bilateral Myocardial infarct Psychiatric diagnosis Stroke due to stenosis of carotid artery Family History Family History (Updated 09/12/22 @ 09:16 by Michael Littlejohn MD) Father Heart disease Surgical History Surgical History No significant past surgical history Social History Social History Household Members: None Housing: Apartment Do you presently have visiting nurse or other home services: Yes Alcohol intake: current Alcohol intake frequency: holidays/special occasions only Alcohol type: beer, wine and hard liquor Patient Tobacco Use Status: Never used Tobacco Tobacco use type: Cigar Smoked in Last 30 Days: Yes Use of substances other than those prescribed or required for medical reasons: No Advance Directives: No Advance Directives Information Provided: No service: No Meds Allergies Allergy/AdvReac Type Severity Reaction Status Date / Time clozapine [From Clozaril] Allergy Unknown RASH Verified 08/02/21 09:52 hydroxyzine [From VISTARIL] Allergy Unknown UNKNOWN Verified 08/02/21 09:52 menthol [From Antihistamine] Allergy Unknown RASH Verified 08/02/21 09:52 nicotine [Nicotine] Allergy Unknown GUM- MAKES Verified 08/02/21 09:52 SICK TO STOMACH nut - unspecified [nut] Allergy Unknown SWELLING Verified 08/02/21 09:52 From Antihistamine Allergy Unknown RASH Uncoded 01/12/21 02:28 Active Medications: Current Medications Acetaminophen (Acetaminophen 325 Mg Tablet) 650 mg PO Q6H PRN PRN Reason: Pain, Mild (Pain Scale 1-3) Aspirin (Aspirin Enteric Coated 81 Mg Tablet.Dr) 81 mg PO DAILY [facility] Last Admin: 09/12/22 08:02 Dose: 81 mg Atorvastatin Calcium (Atorvastatin Calcium 80 Mg Tablet) 80 mg PO BEDTIME [facility] Last Admin: 09/12/22 02:08 Dose: 80 mg Bupropion HCl (Bupropion Hcl Xl 300 Mg Tab.Er.24h) 300 mg PO DAILY [facility] Last Admin: 09/12/22 08:02 Dose: 300 mg Clopidogrel Bisulfate (Clopidogrel Bisulfate 75 Mg Tablet) 75 mg PO DAILY [facility] Last Admin: 09/12/22 08:02 Dose: 75 mg Docusate Sodium (Docusate Sodium 100 Mg Capsule) 100 mg PO DAILY PRN PRN Reason: Constipation Enoxaparin Sodium (Enoxaparin Sodium 40 Mg/0.4 Ml Syringe) 40 mg SUBCUT BEDTIME [facility] Last Admin: 09/12/22 02:08 Dose: 40 mg Fluoxetine HCl (Fluoxetine Hcl 10 Mg Capsule) 10 mg PO DAILY [facility] Last Admin: 09/12/22 08:02 Dose: 10 mg Fluoxetine HCl (Fluoxetine Hcl 20 Mg Capsule) 40 mg PO DAILY [facility] Last Admin: 09/12/22 08:02 Dose: 40 mg Fluticasone Propionate (Fluticasone Propionate Nasal 16 Gm [place]) 1 spray NOSTRIL-B BID PRN PRN Reason: Allergy Symptoms Hydralazine HCl (Hydralazine Hcl 20 Mg/Ml Vial) 5 mg IVPUSH Q4H PRN; Protocol PRN Reason: SBP>190 Isosorbide Mononitrate (Isosorbide Mononitrate 30 Mg Tab.Er.24h) 30 mg PO DAILY [facility]; Protocol Last Admin: 09/12/22 08:02 Dose: 30 mg Lamotrigine (Lamotrigine 100 Mg Tablet) 100 mg PO BID [facility] Metoprolol Tartrate (Metoprolol Tartrate 25 Mg Tablet) 25 mg PO BID [facility]; Pro tocol Last Admin: 09/12/22 08:02 Dose: 25 mg Morphine Sulfate (Morphine Sulfate 4 Mg/Ml Cartridge) 4 mg IVPUSH Q4H PRN; Protocol PRN Reason: Chest Pain Ondansetron HCl (Ondansetron Hcl 4 Mg/2 Ml Vial) 4 mg IVPUSH Q8H PRN PRN Reason: Nausea and Vomiting Quetiapine Fumarate (Quetiapine Fumarate 200 Mg Tablet) 200 mg PO BID [facility] Last Admin: 09/12/22 08:02 Dose: 200 mg Sodium Chloride (0.9 % Sodium Chloride Flush 3 Ml Syringe) 3 ml IVFLUSH QSHIFT [facility] Last Admin: 09/12/22 08:02 Dose: 3 ml Trazodone HCl (Trazodone Hcl 100 Mg Tablet) 200 mg PO BEDTIME PRN PRN Reason: Insomnia Home Medications Medication Instructions Recorded Confirmed Last Taken Type atorvastatin 80 mg tablet 1 tab PO BEDTIME 01/12/21 09/12/22 05/18/22 History bupropion HCl 150 mg tablet,12 hr 1 tab PO BID 01/12/21 09/12/22 05/19/22 09:00 History sustained-release clopidogrel 75 mg tablet 1 tab PO DAILY 01/12/21 09/12/22 05/19/22 09:00 History fluoxetine 40 mg capsule 1 cap PO DAILY 01/12/21 09/12/22 05/19/22 09:00 History isosorbide mononitrate 30 mg 1 tab PO DAILY 01/12/21 09/12/22 05/19/22 09:00 History tablet,extended release 24 hr lamotrigine 100 mg tablet 1 tab PO BID 01/12/21 09/12/22 05/19/22 09:00 History metoprolol tartrate 25 mg tablet 1 tab PO BID 01/12/21 09/12/22 05/19/22 09:00 History quetiapine 400 mg tablet,extended 1 tab PO BEDTIME 01/12/21 09/12/22 05/18/22 History release 24 hr trazodone 100 mg tablet 2 tab PO BEDTIME PRN Insomnia 01/12/21 09/12/22 05/18/22 History aspirin 81 mg tablet,delayed 1 tab PO DAILY 11/03/21 09/12/22 05/19/22 09:00 History release fluticasone propionate 50 1 spray intranasal BID PRN Allergy 11/03/21 09/12/22 Unknown History mcg/actuation nasal Symptoms spray,suspension fluoxetine 10 mg capsule 1 cap PO DAILY 05/19/22 09/12/22 05/19/22 09:00 History Physical Exam Vital Signs: Vital Signs: Last Vital Signs Temp 98.2 F 09/12/22 05:44 Pulse 48 L 09/12/22 08:28 Resp 12 09/12/22 08:28 BP 172/92 H 09/12/22 08:28 Pulse Ox 96 09/12/22 08:28 O2 Del Method Room Air 09/12/22 08:28 BMI result Body Mass Index 32.5 Const: General: comfortable and no acute distress Orientation/consciousness: patient oriented x3 HEENT: Other: Unremarkable Head: Yes normal to inspection Neck: Neck: Yes normal visual inspection Chest: Chest palpation & inspection: normal inspection of the chest Resp: Auscultation: clear to auscultation bilaterally Cardio: Palpation: normal PMI Heart sounds: S1 normal heart sound present, S2 normal heart sound present, no gallops, no murmurs and no rubs GI: Palpation (GI): Soft to palpation Back/Spine/Pelvis: Other: unremarkable Skin: General skin exam: no rashes or lesions noted Neuro: General: patient oriented x3 Extrem: General: Yes normal to inspection Psych: Mental Status: mental status grossly normal Objective Labs and Meds 09/11/22 23:57 09/12/22 05:37 Lab results: Laboratory Results - last 24 hr 09/11/22 09/11/22 09/11/22 23:57 23:57 23:57 WBC 11.4 H RBC 4.45 L Hgb 13.3 L Hct 40.9 L MCV 91.9 MCH 29.9 MCHC 32.5 RDW 14.5 Plt Count 206 MPV 10.6 Immature Gran % (Auto) 0.7 H Neut % (Auto) 62.7 Lymph % (Auto) 25.9 [place] % (Auto) 6.9 Eos % (Auto) 2.7 Baso % (Auto) 1.1 Lymph # (Auto) 2.9 [place] # (Auto) 0.8 Eos # (Auto) 0.3 Baso # (Auto) 0.1 Abs Immat Gran (auto) 0.08 H Absolute Neuts (auto) 7.1 Absolute Nucleated RBC 0.000 Nucleated RBC % (auto) 0.0 PT 11.2 INR 1.0 APTT 23.1 L Sodium 138 Potassium 4.6 Chloride 108 Carbon Dioxide 25 Anion Gap 10 L BUN 36 H Creatinine 1.84 H Estim Creat Clear Calc 50.3 Estimated GFR 37 Random Glucose 112 Calcium 8.8 Magnesium 2.0 Total Bilirubin 0.4 AST 20 ALT 27 Alkaline Phosphatase 92 Troponin I High Sens B-Natriuretic Peptide Total Protein 6.0 L Albumin 3.2 L 09/11/22 09/12/22 09/12/22 23:57 01:27 01:27 WBC RBC Hgb Hct MCV MCH MCHC RDW Plt Count MPV Immature Gran % (Auto) Neut % (Auto) Lymph % (Auto) [place] % (Auto) Eos % (Auto) Baso % (Auto) Lymph # (Auto) [place] # (Auto) Eos # (Auto) Baso # (Auto) Abs Immat Gran (auto) Absolute Neuts (auto) Absolute Nucleated RBC Nucleated RBC % (auto) PT INR APTT Sodium Potassium Chloride Carbon Dioxide Anion Gap BUN Creatinine Estim Creat Clear Calc Estimated GFR Random Glucose Calcium Magnesium Total Bilirubin AST ALT Alkaline Phosphatase Troponin I High Sens 9.2 14.6 D B-Natriuretic Peptide 118 H Total Protein Albumin 09/12/22 05:37 WBC RBC Hgb Hct MCV MCH MCHC RDW Plt Count MPV Immature Gran % (Auto) Neut % (Auto) Lymph % (Auto) [place] % (Auto) Eos % (Auto) Baso % (Auto) Lymph # (Auto) [place] # (Auto) Eos # (Auto) Baso # (Auto) Abs Immat Gran (auto) Absolute Neuts (auto) Absolute Nucleated RBC Nucleated RBC % (auto) PT INR APTT Sodium 138 Potassium 4.5 Chloride 109 H Carbon Dioxide 23 Anion Gap 11 L BUN 32 H Creatinine 1.62 H Estim Creat Clear Calc 57.1 Estimated GFR 43 Random Glucose 95 Calcium 8.5 Magnesium Total Bilirubin 0.5 AST 18 ALT 26 Alkaline Phosphatase 87 Troponin I High Sens B-Natriuretic Peptide Total Protein 5.7 L Albumin 3.2 L ECG Interpretation: EKG with sinus bradycardia at 54/Min; minimal voltage criteria for LVH and no clear ischemic changes. Imaging Radiologist's impression: Impressions Chest X-Ray 09/11/22 23:46 IMPRESSION: Unremarkable examination. Assessment and Plan (1) Unstable angina: Status: Acute (2) Hypertensive emergency: Status: Acute Plan Blood pressures are quite high. Peak blood pressure as much as 222/99 mm Hg. Most recently 172/92 mm Hg. Creatinine is 1.6. BUN is 32. High sensitivity troponins are 9.2 and 14.6. Chest x-ray reported to be unremarkable. Prior [facility] records reviewed. In June of 2020, he underwent stress testing reported to have no evidence of stress-induced ischemia or prior infarct. In August of 2020 he underwent cardiac catheterization. That showed severe InStent restenosis of prior LAD stents; chronic total occlusion of right coronary artery and patent left PLV stent. Current chest pain suspected anginal and could be related to uncontrolled blood pressures. Also difficult to say if there is any progression of underlying CAD. Based on biomarkers, no evidence of NSTEMI. His blood pressure could be the main issue. As it is so high going into the 200s we need to control his aggressively. We can start him on amlodipine 10 mg daily. Continue aspirin, Plavix. Will get an echocardiogram. 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 Will follow up with you. Discussed with hospitalist. Time Spent With Patient Time: Total time managing care of this patient today ____ minutes. Procedures Date of Service Date of Service: 09/12/22
[2022-09-12] MEDS: amLODIPine Besylate 10 MG TABLET PO (10:05)
--- NOTE | 2022-09-12 11:24 | PC.NURSE ---
echo at bedside
--- NOTE | 2022-09-12 11:44 | MHC.CM.PN ---
Addendum entered by Noemy Grijalva 09/12/22 13:14: Received notification that patient will transfer to [facility]. Original Note: Attempted to meet with patient in regards to discharge planning. Echo currently being performed. Patient is active with [facility]. Referral made in [facility] so they can follow for discharge needs. Will attempt to meet with patient again. Continue to [facility] for d/c needs.
--- NOTE | 2022-09-12 13:06 | PM.DS ---
DS: Providers Provider Date of Service: 09/12/22 Date of admission: 09/12/22 11:43 Date of discharge: 09/12/22 Primary care physician: Unknown Physician Consults: 09/12/22 01:00 Consult to Cardiology Routine Consulting Provider: [facility] Reason for consultation: chest pain, hx of CAD Has provider been notified: No Attending physician on discharge: Val Awad Discharging clinician: Val Awad DS: Diagnosis Discharge Diagnosis (1) Unstable angina: Status: Acute (2) Hypertensive emergency: Status: Acute DS: Summary Hospital Course Hospital Course: 67-year-old male with past medical history of CAD status post stent, on DAPT,? hypertension, history of CVA, COPD,Bipolar disorder, presents to the hospital with complaints of chest pain.? Patient describes the pain as midsternal, radiating to? left shoulder,? occurring at rest,? no exacerbating factors, lasting 10-20 minutes, resolving with nitroglycerin pills.? He states that he took about 7-8 nitroglycerin pills with the pain persisting therefore he came into the hospital.? Describes the pain as sharp, 10/10. similar to previous heart attack.? ?patient reports chronic shortness of breath, no palpitations, no abdominal pain nausea or vomiting, no diarrhea constipation, no urinary symptoms and no lower extremity edema.? On arrival to the ED patient found to have blood pressure of 158/74, other vitals stable Labs are significant for WBC count of 11.4, hemoglobin of 13.3, hematocrit 40.9, initial troponin of 9, repeat pending, creatinine of 1.84 which appears to be around his baseline, EKG shows no acute changes, chest x-r is unremarkable ?given his significant cardiac history patient will be admitted for further evaluation. Hospital course: Patient came to hospital because of chest pain and elevated blood pressure: Patient received nitroglycerin, morphine, also received hydralazine IV for blood pressure control: Subsequently patient's blood pressure seems to be improving , workup crenshaw troponin negative, EKG seems fine, patient is currently chest pain seems to be improved also. Seen by Cardiology-plan id to tx to [facility] for further work up. Potentially diagnostic catheterization, considering his anginal symptoms and high use of NTG and prior coronary anatomy. BP certainly could be the issue but progressive CAD should also probably be assessed. Patient will be going to the [facility] on heparin drip. uncontolled htn :Amlodipine are did additionally for blood pressure control.blood pressure improving Above management discussed the patient detail length, assessment and plan coordination time spent 50 minute . Time Spent with Patient Time attestation: Total time managing care of this patient today ____ minutes. Discharge coordination time: Greater than 30 minutes Quality: Safe Use of Opioids Does Pt have an Active Cancer Diagnosis on the Problem List?: No Quality: Stroke Does the patient have a stroke diagnosis?: No Physical Exam Vital Signs: Vital Signs: Last Vital Signs Temp 98.2 F 09/12/22 05:44 Pulse 48 L 09/12/22 08:28 Resp 12 09/12/22 08:28 BP 172/92 H 09/12/22 08:28 Pulse Ox 96 09/12/22 08:28 O2 Del Method Room Air 09/12/22 08:28 BMI result Body Mass Index 32.5 Appearance: Alert.? Oriented X3.? not in distress.? Eyes: Pupils equal, round and reactive to light.? Sclera nonicteric.? ENT: Pharynx normal.? Moist mucous membranes. cvs: rrr, [id number] . res: clear to auscultation ,no rhonchii or wheezing abd: no rebound or guarding ,nt, bs present. ext pulses present , no cyanosis . neuro: axo3 , nonfocal. DS: Data Data Completed and Pending Labs on day of discharge: Laboratory Results - last 24 hr 09/11/22 09/11/22 09/11/22 23:57 23:57 23:57 WBC 11.4 H RBC 4.45 L Hgb 13.3 L Hct 40.9 L MCV 91.9 MCH 29.9 MCHC 32.5 RDW 14.5 Plt Count 206 MPV 10.6 Immature Gran % (Auto) 0.7 H Neut % (Auto) 62.7 Lymph % (Auto) 25.9 [place] % (Auto) 6.9 Eos % (Auto) 2.7 Baso % (Auto) 1.1 Lymph # (Auto) 2.9 [place] # (Auto) 0.8 Eos # (Auto) 0.3 Baso # (Auto) 0.1 Abs Immat Gran (auto) 0.08 H Absolute Neuts (auto) 7.1 Absolute Nucleated RBC 0.000 Nucleated RBC % (auto) 0.0 PT 11.2 INR 1.0 APTT 23.1 L Sodium 138 Potassium 4.6 Chloride 108 Carbon Dioxide 25 Anion Gap 10 L BUN 36 H Creatinine 1.84 H Estim Creat Clear Calc 50.3 Estimated GFR 37 Random Glucose 112 Calcium 8.8 Magnesium 2.0 Total Bilirubin 0.4 AST 20 ALT 27 Alkaline Phosphatase 92 Troponin I High Sens B-Natriuretic Peptide Total Protein 6.0 L Albumin 3.2 L 09/11/22 09/12/22 09/12/22 23:57 01:27 01:27 WBC RBC Hgb Hct MCV MCH MCHC RDW Plt Count MPV Immature Gran % (Auto) Neut % (Auto) Lymph % (Auto) [place] % (Auto) Eos % (Auto) Baso % (Auto) Lymph # (Auto) [place] # (Auto) Eos # (Auto) Baso # (Auto) Abs Immat Gran (auto) Absolute Neuts (auto) Absolute Nucleated RBC Nucleated RBC % (auto) PT INR APTT Sodium Potassium Chloride Carbon Dioxide Anion Gap BUN Creatinine Estim Creat Clear Calc Estimated GFR Random Glucose Calcium Magnesium Total Bilirubin AST ALT Alkaline Phosphatase Troponin I High Sens 9.2 14.6 D B-Natriuretic Peptide 118 H Total Protein Albumin 09/12/22 05:37 WBC RBC Hgb Hct MCV MCH MCHC RDW Plt Count MPV Immature Gran % (Auto) Neut % (Auto) Lymph % (Auto) [place] % (Auto) Eos % (Auto) Baso % (Auto) Lymph # (Auto) [place] # (Auto) Eos # (Auto) Baso # (Auto) Abs Immat Gran (auto) Absolute Neuts (auto) Absolute Nucleated RBC Nucleated RBC % (auto) PT INR APTT Sodium 138 Potassium 4.5 Chloride 109 H Carbon Dioxide 23 Anion Gap 11 L BUN 32 H Creatinine 1.62 H Estim Creat Clear Calc 57.1 Estimated GFR 43 Random Glucose 95 Calcium 8.5 Magnesium Total Bilirubin 0.5 AST 18 ALT 26 Alkaline Phosphatase 87 Troponin I High Sens B-Natriuretic Peptide Total Protein 5.7 L Albumin 3.2 L Imaging Chest x-ray: Radiologist's impression: ITS Impressions Chest X-Ray 09/11/22 23:46 IMPRESSION: Unremarkable examination. Additional Comments Additional comments: echo: Conclusions: - The left ventricular systolic function is normal.? The ? calculated ejection fraction is 67% by biplane method. ? - Evidence suggests grade II (moderate) diastolic dysfunction. ? - The basal inferior segment is hypokinetic. ? - The left atrium is severely dilated. ? - There is mild dilatation of the ascending aorta measuring 4.10 cm.? Findings Procedure Information Contrast agent, definity, is being given per protocol without apparent complications. Left Ventricle Normal left ventricular cavity size.? There is moderately increased left ventricular wall thickness.? The left ventricular systolic function is normal.? The calculated ejection fraction is 67% by biplane method.? E/E prime ratio is >15, consistent with elevated filling pressures.? Evidence suggests grade II (moderate) diastolic dysfunction. Wall Motion Rest Echo Findings The basal inferior segment is hypokinetic. Right Ventricle Normal right ventricular cavity size and systolic function. Atria The left atrium is severely dilated.? The right atrium is mildly dilated. Aortic Valve There is a normal trileaflet aortic valve.? There is no aortic valve stenosis.? There is no aortic valve regurgitation. Mitral Valve The mitral valve appears normal.? There is no mitral valve regurgitation. There is no mitral valve stenosis. Pulmonic Valve There is trace pulmonic valve regurgitation. Tricuspid Valve There is no tricuspid valve regurgitation.? There is no evidence of pulmonary hypertension. Great Vessels There is mild dilatation of the ascending aorta measuring 4.10 cm. Venous The inferior vena cava is normal in size and collapses greater than 50% with inspiration. Pericardium/Pleural There is no evidence of pericardial effusion. Prior Study Comparison No prior study available for comparison. Discharge Plan Discharge Anticipated Discharge Date/Time: 09/12/22 12:54 Patient Disposition: Xfer Acute Care Hospital Discharge Diagnosis: unstable angina,uncontrolled htn Referrals: [facility] [Outside] - 1 Week [facility] [Outside] - 1 Week Physician,Unknown J [Physician] - 1 Week Discharge Medications: New amlodipine 10 mg Tablet 10 mg PO DAILY Qty: 1 0RF Protocol: Hold for SBP< HOLD for SBP < : 90 docusate sodium 100 mg Capsule 100 mg PO DAILY PRN (Reason: Constipation) Qty: 1 0RF heparin(porcine) in 0.45% NaCl 25,000 unit/250 mL Parenteral Solution 25,000 unit continuous IV infusion .Q0M Qty: 1 0RF nitroglycerin 0.4 mg tablet, sublingual 0.4 mg sublingual Q5M PRN (Reason: chest pain) Qty: 1 0RF Rx Instructions: do not exceed 3 doses per episode Continued fluoxetine 40 mg capsule 1 cap PO DAILY Rx Instructions: take with 10mg; total dose 50mg bupropion HCl 150 mg tablet sustained-release 12 hr 1 tab PO BID atorvastatin 80 mg tablet 1 tab PO BEDTIME isosorbide mononitrate 30 mg tablet extended release 24 hr 1 tab PO DAILY clopidogrel 75 mg tablet 1 tab PO DAILY trazodone 100 mg tablet 2 tab PO BEDTIME PRN (Reason: Insomnia) lamotrigine 100 mg tablet 1 tab PO BID metoprolol tartrate 25 mg tablet 1 tab PO BID quetiapine 400 mg tablet extended release 24 hr 1 tab PO BEDTIME fluoxetine 10 mg capsule 1 cap PO DAILY Rx Instructions: take with 40mg; total dose 50mg aspirin 81 mg tablet,delayed release (DR/EC) 1 tab PO DAILY fluticasone propionate 50 mcg/actuation [place],Suspension 1 spray INTRANASAL BID PRN (Reason: Allergy Symptoms) Rx Instructions: administer into each nostril Discharge Orders: Discharge Order (Routine); Ordered 09/12/22 Ordered By: Val Awad Diet: Advance to usual diet Activity on Discharge: As tolerated Stand Alone Forms: Patient Portal Discharge page Care Plan Goals: Patient came to hospital because of chest pain and elevated blood pressure: Patient received nitroglycerin, morphine, also received hydralazine IV for blood pressure control: Subsequently patient's blood pressure seems to be improving , workup crenshaw troponin negative, EKG seems fine, patient is currently chest pain seems to be improved also. Seen by Cardiology-plan id to tx to [facility] for further work up. Potentially diagnostic catheterization, considering his anginal symptoms and high use of NTG and prior coronary anatomy. BP certainly could be the issue but progressive CAD should also probably be assessed. Patient will be going to the [facility] on heparin drip. Amlodipine are did additionally for blood pressure control. Health Concerns: as Above. Plan of Treatment: As above. Assessment: As above. Patient Instructions: Acute Coronary Syndrome (DC), Chronic Hypertension (DC) Discharge Date/Time: 09/13/22 12:30
[2022-09-12 13:28] LABS: Prothrombin Time 11.6 SEC (10.0-13.1)
[2022-09-12 13:30] LABS: PTT Heparin Drip 28.8 SEC (53-77.9)
[2022-09-12 14:03] LABS: Hematocrit 43.8 % (42.0-52.0); Hemoglobin 14.1 g/dl (14.0-18.0); Mean Corpuscular HGB Conc 32.2 g/dl (31.0-36.0); Mean Corpuscular Hemoglobin 30.1 pg (27.0-33.0); Mean Corpuscular Volume 93.4 fL (80.0-98.0); Mean Platelet Volume 10.5 fL (9.4-12.4); Platelet Count 201 X10*3/uL (160-400); Red Blood Count 4.69 X10*6/uL (4.60-5.80); Red Cell Distribution Width 14.3 % (11.0-16.0); White Blood Count 12.3 X10*3/uL (4.8-10.8)
[2022-09-12 14:09] LABS: Prothrombin Time 11.6 SEC (10.0-13.1)
[2022-09-12 14:11] LABS: PTT Heparin Drip 28.7 SEC (53-77.9)
[2022-09-12 15:20] LABS: COVID-19 Test Negative (Negative); IDNOW Serial# BCCEAD1C
--- NOTE | 2022-09-12 20:05 | PC.NURSE ---
Pt reminded that he is being monitored here while waiting for a bed at [facility]. Pt on the cardiac surgeon, denying chest pain at this time. Will continue to monitor and treat as needed.
[2022-09-12] MEDS: Heparin Sodium,Porcine/1/2NS 25,000 UNIT/250 ML IV.SOLN 10 UNIT IVCONT (20:33)
--- NOTE | 2022-09-12 23:26 | MHC.EDTECH ---
Call out to [facility] transfer line @[phone] for an update on bed assignment. Spoke to Kisha who informed me they still do not have a bed available
--- NOTE | 2022-09-13 00:09 | PC.NURSE ---
Pt sleeping comfortably. Vitals stable. No signs of distress, even and unlabored breathing. Will continue to monitor.
[2022-09-13 00:28] VITALS: BP 152/70; PULSE 47; RESP 9; O2SAT 98
[2022-09-13] MEDS: 0.9 % Sodium Chloride Flush 3 ML SYRINGE IVFLUSH (01:34)
--- NOTE | 2022-09-13 02:42 | PC.NURSE ---
Pt ca&ox3, requesting and given drink. Pt repositioned in bed. Will continue to monitor.
[2022-09-13 02:47] VITALS: BP 182/81; PULSE 50; RESP 16; O2SAT 96
--- NOTE | 2022-09-13 03:16 | PC.NURSE ---
Md Yañez made aware of pts b/p. Will continue to monitor.
[2022-09-13 03:39] VITALS: BP 114/59; PULSE 47; RESP 14; TEMP 36.9; O2SAT 96
[2022-09-13 04:16] VITALS: BP 114/59; PULSE 48; RESP 11; O2SAT 97
--- NOTE | 2022-09-13 04:16 | PC.NURSE ---
Pt resting comfortably, no signs of distress. Vitals stable. Will continue to monitor.
--- NOTE | 2022-09-13 05:48 | MHC.EDTECH ---
Call out to [facility] transfer line @[phone] spoke to Ann Marie for an update on bed assignment, there an no current beds available
[2022-09-13 06:12] LABS: Hematocrit 45.6 % (42.0-52.0); Hemoglobin 14.8 g/dl (14.0-18.0); Mean Corpuscular HGB Conc 32.5 g/dl (31.0-36.0); Mean Corpuscular Hemoglobin 29.8 pg (27.0-33.0); Mean Corpuscular Volume 91.9 fL (80.0-98.0); Mean Platelet Volume 10.6 fL (9.4-12.4); Platelet Count 220 X10*3/uL (160-400); Red Blood Count 4.96 X10*6/uL (4.60-5.80); Red Cell Distribution Width 14.2 % (11.0-16.0); White Blood Count 13.6 X10*3/uL (4.8-10.8)
[2022-09-13 06:36] LABS: Prothrombin Time 11.7 SEC (10.0-13.1)
[2022-09-13 06:37] VITALS: BP 213/92; PULSE 51; RESP 15; O2SAT 97
--- NOTE | 2022-09-13 06:38 | PC.NURSE ---
Pt ca&ox3, no signs of distress. Will continue to monitor.
[2022-09-13 06:53] VITALS: BP 181/68; PULSE 51; RESP 12; O2SAT 99
--- NOTE | 2022-09-13 07:23 | PHA.MEDREC ---
Pharmacy Consult ? Medication Reconciliation Pharmacy has reviewed the medication reconciliation completed by nursing. There are no remarkable issues for provider's attention. Debbi Lemon, PharmD
--- NOTE | 2022-09-13 09:05 | MHC.EDTECH ---
@09:04 CALL PLACED TO [facility] PT TX LINE TO CHECK ON ROOM ASSIGNMENT STATUS AL ANSWERS AND AGREES WE ARE STILL WAITING FOR ROOM ASSIGNMENT FOR THIS PT @ [facility]
[2022-09-13] MEDS: Clopidogrel Bisulfate 75 MG TABLET PO (09:12)
[2022-09-13] MEDS: QUEtiapine Fumarate 200 MG TABLET PO (09:12)
[2022-09-13] MEDS: Metoprolol Tartrate 25 MG TABLET PO (09:12)
[2022-09-13] MEDS: Isosorbide Mononitrate 30 MG TAB.ER.24H PO (09:12)
[2022-09-13] MEDS: amLODIPine Besylate 10 MG TABLET PO (09:12)
[2022-09-13] MEDS: Aspirin Enteric Coated 81 MG TABLET.DR PO (09:12)
[2022-09-13] MEDS: lamoTRIgine 100 MG TABLET PO (09:12)
[2022-09-13] MEDS: FLUoxetine HCl 10 MG CAPSULE PO (09:12)
[2022-09-13] MEDS: buPROPion HCl XL 300 MG TAB.ER.24H PO (09:12)
[2022-09-13] MEDS: FLUoxetine HCl 20 MG CAPSULE 40 MG PO (09:12)
[2022-09-13 09:15] LABS: PTT Heparin Drip 62.4 SEC (53-77.9)
--- NOTE | 2022-09-13 11:21 | PC.NURSE ---
attempted to call report no answer
--- NOTE | 2022-09-13 15:01 | PC.NURSE ---
added addendum from 09/12/2022 pharmacy contacted this rn for weight for heparin drip at 1330. md contacted for reason for start of heparin drip- unstable angina and [place] [facility] rn continued to await medication in [facility]. original order was canceled by pharmacy. new order never flagged on emar or pxyis to be able to remove medication.
== END 2022-09-13 12:30 | disposition short-term general hospital (02) | DRG 303 ==
LOC: HO.ED 22:45 → HO.EDOVER 09-12 01:12
PROVIDERS: Internal Medicine; Admitting Provider Internal Medicine; Emergency Provider Internal Medicine; PCP Family Medicine; Visit Provider Internal Medicine
DX: I25.110 Atherosclerotic heart disease of native coronary artery with unstable angina pectoris (principal); I16.1 Hypertensive emergency; I25.2 Old myocardial infarction; F31.9 Bipolar disorder, unspecified; I10 Essential (primary) hypertension; Z20.822 Contact with and (suspected) exposure to COVID-19; Z86.73 Personal history of transient ischemic attack (TIA), and cerebral infarction without residual deficits; Z79.02 Long term (current) use of antithrombotics/antiplatelets; Z79.82 Long term (current) use of aspirin; Z79.51 Long term (current) use of inhaled steroids; Z79.899 Other long term (current) drug therapy
CPT/HCPCS: 36415; 71045; 80053; 83735; 83880; 84484; 85025; 85027; 85610; 85730; 87635; 93005; 93306; 99222; 99285; J1643; J1650; Q9957

== ENCOUNTER 2022-09-25 10:18 | Emergency (ER) | payer MEDICARE, MEDICAID, SELFPAY ==
[2022-09-25 10:35] VITALS: BP 170/110; BP 203/102; PULSE 70; PULSE 74; RESP 18; TEMP 36.5; O2SAT 96; O2SAT 98; BMI 33.0
--- NOTE | 2022-09-25 10:37 | ECG_ITS ---
Test Reason : cp Blood Pressure : / mmHG Vent. Rate : 073 BPM Atrial Rate : 073 BPM P-R Int : 160 ms QRS Dur : 090 ms QT Int : 420 ms P-R-T Axes : 039 -22 -09 degrees QTc Int : 462 ms Normal sinus rhythm Minimal voltage criteria for LVH, may be normal variant ( R in aVL ) Borderline ECG When compared with ECG of 11-SEP-2022 22:17, Nonspecific T wave abnormality, worse in Inferior leads Referred By: Generic ED Physician Electronically Signed By:Néstor Guardado
--- NOTE | 2022-09-25 10:41 | ED_ITS ---
HPI - Chest Pain General Chief Complaint: Chest Pain Stated Complaint: r sided cp Time Seen by Provider: 09/25/22 10:32 Source: patient Mode of arrival: EMS Limitations: no limitations History of Present Illness HPI narrative: Patient with history of coronary artery disease per [facility] records In June of 2020, he underwent stress testing reported to have no evidence of stress- induced ischemia or prior infarct. In August of 2020 he underwent cardiac catheterization.? That showed severe InStent restenosis of prior LAD stents; chronic total occlusion of right coronary artery and patent left PLV stent . Was seen here on 09/12 for chest pain transfer to [facility] a nuclear stress test on 09/14 which was negative,he was discharged noted to have hypertension as the main cause of ischemia comes here for right-sided chest pain started 3 days ago lasting for hours on arrival patient's blood pressure noted to be 203/102 patient taking metoprolol and amlodipine which he states has taken in the morning Related Data Home Medications Medication Instructions Recorded Confirmed atorvastatin 80 mg tablet 1 tab PO BEDTIME 01/12/21 09/12/22 bupropion HCl 150 mg tablet,12 hr 1 tab PO BID 01/12/21 09/12/22 sustained-release clopidogrel 75 mg tablet 1 tab PO DAILY 01/12/21 09/12/22 fluoxetine 40 mg capsule 1 cap PO DAILY 01/12/21 09/12/22 isosorbide mononitrate 30 mg 1 tab PO DAILY 01/12/21 09/12/22 tablet,extended release 24 hr lamotrigine 100 mg tablet 1 tab PO BID 01/12/21 09/12/22 metoprolol tartrate 25 mg tablet 1 tab PO BID 01/12/21 09/12/22 quetiapine 400 mg tablet,extended 1 tab PO BEDTIME 01/12/21 09/12/22 release 24 hr trazodone 100 mg tablet 2 tab PO BEDTIME PRN Insomnia 01/12/21 09/12/22 aspirin 81 mg tablet,delayed 1 tab PO DAILY 11/03/21 09/12/22 release fluticasone propionate 50 1 spray intranasal BID PRN Allergy 11/03/21 09/12/22 mcg/actuation nasal Symptoms spray,suspension fluoxetine 10 mg capsule 1 cap PO DAILY 05/19/22 09/12/22 Previous Rx's Medication Instructions Recorded amlodipine 10 mg tablet 10 mg PO DAILY #1 tab 09/12/22 docusate sodium 100 mg capsule 100 mg PO DAILY PRN Constipation 09/12/22 #1 cap heparin (porcine) 25,000 unit/250 25,000 unit (250 mL) continuous IV 09/12/22 mL in 0.45 % sodium chloride IV infusion .Q0M #1 mL soln nitroglycerin 0.4 mg sublingual 0.4 mg sublingual Q5M PRN chest 09/12/22 tablet pain #1 tab losartan 50 mg tablet 50 mg PO DAILY #30 tabs 09/25/22 Allergies Allergy/AdvReac Type Severity Reaction Status Date / Time clozapine [From Clozaril] Allergy Unknown RASH Verified 08/02/21 09:52 hydroxyzine [From VISTARIL] Allergy Unknown UNKNOWN Verified 08/02/21 09:52 menthol [From Antihistamine] Allergy Unknown RASH Verified 08/02/21 09:52 nicotine [Nicotine] Allergy Unknown GUM- MAKES Verified 08/02/21 09:52 SICK TO STOMACH nut - unspecified [nut] Allergy Unknown SWELLING Verified 08/02/21 09:52 From Antihistamine Allergy Unknown RASH Uncoded 01/12/21 02:28 Review of Systems Review of Systems: Yes all other systems are reviewed and are negative [facility] Past Medical History Medical History (Updated 09/25/22 @ 13:58 by Tank Mayfield MD) Arthritis Bilateral carotid artery stenosis CAD (coronary artery disease) History of CVA (cerebrovascular accident) Hypertension Myocardial infarct Peripheral arterial disease Schizoaffective disorder Stroke due to stenosis of carotid artery Surgical History (Updated 09/25/22 @ 12:01 by Tank Mayfield MD) H/O heart artery stent No significant past surgical history Family History Family History Father Heart disease Social History Social History Household Members: None Housing: Apartment Do you presently have visiting nurse or other home services: Yes Alcohol intake: current Alcohol intake frequency: holidays/special occasions on ly Alcohol type: beer, wine and hard liquor Patient Tobacco Use Status: Never used Tobacco Tobacco use type: Cigar Advance Directives: Yes Advance Directives on File: Yes Advance Directives Date on File: 01/18/21 service: No Physical Exam Vital Signs: Vital Signs: Last Vital Signs Temp 97.7 F 09/25/22 10:35 Pulse 76 09/25/22 13:58 Resp 18 09/25/22 13:58 BP 142/95 H 09/25/22 13:58 Pulse Ox 96 09/25/22 13:58 O2 Del Method Room Air 09/25/22 13:58 BMI result Body Mass Index 33.0 Appearance: Alert. Oriented X3. No acute distress. Unkempt condition Eyes: PERRLA, No Nystagmus ENT: Pharynx normal. Oral Mucosa moist Neck: Normal inspection. Neck supple. CVS: Normal heart rate and rhythm. Pulses normal. Respiratory: No respiratory distress. Equal air entry bilateral, no wheezing/rales/rhonchi Abdomen: Soft and nontender. Bowel sounds are present, no mass palpable, no CVA tenderness Skin: Skin warm and dry. Normal skin color. Normal skin turgor. Extremities: No lower extremity edema. No calf tenderness Neuro: Oriented X 3. No motor deficit. No sensory deficit.No cerebellar signs , cranial nerves II-XII intact Medications Administered Discontinued Medications Generic Name Dose Route Start Last Admin Trade Name Freq PRN Reason Stop Dose Admin Losartan Potassium 50 mg 09/25/22 11:26 09/25/22 11:42 Losartan Potassium 50 Mg Tablet PO 09/25/22 11:27 50 mg ONCE ONE Administration Protocol Nitroglycerin 1 inch 09/25/22 10:50 09/25/22 10:54 Nitroglycerin 2 % Oint 1 Gm Packet TRANSDERMA 09/25/22 10:51 1 inch ONCE ONE Administration Medical Decision Making Medical Decision Making MDM Narrative: Patient with known cardiac history recent stress test 10 days ago was negative multiple ED visits for chest pain likely noncardiac 2 sets of cardiac enzymes negative noted to have high blood pressure started on amlodipine 2 weeks ago will add losartan 50 mg daily for blood pressure control blood pressure improved to 140/90 while in the ER Lab Data MDM Lab Attestation statement: I reviewed the patient's lab results. 09/25/22 10:52 09/25/22 10:52 Labs: Lab Results 09/25/22 09/25/22 09/25/22 Range/Units 10:52 10:52 10:52 WBC 9.2 (4.8-10.8) X10*3/uL RBC 4.47 L (4.60-5.80) X10*6/uL Hgb 13.7 L (14.0-18.0) g/dl Hct 41.0 L (42.0-52.0) % MCV 91.7 (80.0-98.0) fL MCH 30.6 (27.0-33.0) pg MCHC 33.4 (31.0-36.0) g/dl RDW 13.7 (11.0-16.0) % Plt Count 195 (160-400) X10*3/uL MPV 10.1 (9.4-12.4) fL Immature Gran % (Auto) 0.3 (0.0-0.4) % Neut % (Auto) 58.0 (45-73) % Lymph % (Auto) 31.1 (20-40) % Candler % (Auto) 7.1 (2-11) % Eos % (Auto) 2.5 (0-4) % Baso % (Auto) 1.0 (0-2) % Lymph # (Auto) 2.9 (1.2-4.9) X10*3/uL Candler # (Auto) 0.7 (0.1-1.2) X10*3/uL Eos # (Auto) 0.2 (0.0-0.4) X10*3/uL Baso # (Auto) 0.1 (0.0-0.2) X10*3/uL Abs Immat Gran (auto) 0.03 (0.00-0.03) X10*3/uL Absolute Neuts (auto) 5.4 (2.0-8.3) x10*3/uL Absolute Nucleated RBC 0.000 (0.0-0.012) X10*3/uL Nucleated RBC % (auto) 0.0 (0.0-0.2) /100WBC PT (10.0-13.1) SEC INR (0.9-1.1) D-Dimer High Sensitivty NG/ML Sodium 141 (135-145) mmol/L Potassium 3.9 (3.3-5.1) mmol/L Chloride 107 (96-108) mmol/L Carbon Dioxide 26 (22-29) mmol/L Anion Gap 12 (12-20) BUN 23 H (9-16) mg/dL Creatinine 1.58 H (0.5-1.4) mg/dL Estim Creat Clear Calc 59.0 Estimated GFR 44 Random Glucose 104 (60-115) mg/dL Calcium 8.8 (8.4-10.2) mg/dL Troponin I High Sens 5.8 D (<3.5-35.0) ng/L 09/25/22 09/25/22 Range/Units 10:52 13:05 WBC (4.8-10.8) X10*3/uL RBC (4.60-5.80) X10*6/uL Hgb (14.0-18.0) g/dl Hct (42.0-52.0) % MCV (80.0-98.0) fL MCH (27.0-33.0) pg MCHC (31.0-36.0) g/dl RDW (11.0-16.0) % Plt Count (160-400) X10*3/uL MPV (9.4-12.4) fL Immature Gran % (Auto) (0.0-0.4) % Neut % (Auto) (45-73) % Lymph % (Auto) (20-40) % Candler % (Auto) (2-11) % Eos % (Auto) (0-4) % Baso % (Auto) (0-2) % Lymph # (Auto) (1.2-4.9) X10*3/uL Candler # (Auto) (0.1-1.2) X10*3/uL Eos # (Auto) (0.0-0.4) X10*3/uL Baso # (Auto) (0.0-0.2) X10*3/uL Abs Immat Gran (auto) (0.00-0.03) X10*3/uL Absolute Neuts (auto) (2.0-8.3) x10*3/uL Absolute Nucleated RBC (0.0-0.012) X10*3/uL Nucleated RBC % (auto) (0.0-0.2) /100WBC PT 10.8 (10.0-13.1) SEC INR 0.9 (0.9-1.1) D-Dimer High Sensitivty 523 NG/ML Sodium (135-145) mmol/L Potassium (3.3-5.1) mmol/L Chloride (96-108) mmol/L Carbon Dioxide (22-29) mmol/L Anion Gap (12-20) BUN (9-16) mg/dL Creatinine (0.5-1.4) mg/dL Estim Creat Clear Calc Estimated GFR Random Glucose (60-115) mg/dL Calcium (8.4-10.2) mg/dL Troponin I High Sens 5.3 (<3.5-35.0) ng/L Independent Interpretation I performed an independent interpretation of an: EKG Interpretation: Normal sinus rhythm heart rate 73 beats per minute LVH no acute ST-T changes no acute ischemia Discharge Plan Discharge Clinical Impression: Chest pain, Hypertension Patient Disposition: Home, Self-Care Instructions: Chest Pain (ED), Chronic Hypertension (ED) Additional Instructions: Continue your medication and 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 Start taking losartan 50 mg daily along with her other medications and follow with cardiology Prescriptions: New losartan 50 mg tablet 50 mg PO DAILY Qty: 30 0RF No Action fluoxetine 40 mg capsule 1 cap PO DAILY Rx Instructions: take with 10mg; total dose 50mg bupropion HCl 150 mg tablet sustained-release 12 hr 1 tab PO BID atorvastatin 80 mg tablet 1 tab PO BEDTIME isosorbide mononitrate 30 mg tablet extended release 24 hr 1 tab PO DAILY clopidogrel 75 mg tablet 1 tab PO DAILY trazodone 100 mg tablet 2 tab PO BEDTIME PRN (Reason: Insomnia) lamotrigine 100 mg tablet 1 tab PO BID metoprolol tartrate 25 mg tablet 1 tab PO BID quetiapine 400 mg tablet extended release 24 hr 1 tab PO BEDTIME fluoxetine 10 mg capsule 1 cap PO DAILY Rx Instructions: take with 40mg; total dose 50mg aspirin 81 mg tablet,delayed release (DR/EC) 1 tab PO DAILY fluticasone propionate 50 mcg/actuation Chama,Suspension 1 spray INTRANASAL BID PRN (Reason: Allergy Symptoms) Rx Instructions: administer into each nostril amlodipine 10 mg Tablet 10 mg PO DAILY Qty: 1 0RF Protocol: Hold for SBP< HOLD for SBP < : 90 docusate sodium 100 mg Capsule 100 mg PO DAILY PRN (Reason: Constipation) Qty: 1 0RF heparin(porcine) in 0.45% NaCl 25,000 unit/250 mL Parenteral Solution 25,000 unit continuous IV infusion .Q0M Qty: 1 0RF nitroglycerin 0.4 mg tablet, sublingual 0.4 mg sublingual Q5M PRN (Reason: chest pain) Qty: 1 0RF Rx Instructions: do not exceed 3 doses per episode
[2022-09-25 10:54] VITALS: BP 203/102
[2022-09-25] MEDS: Nitroglycerin 2 % Oint 1 GM Packet 1 INCH TRANSDERMA (10:54)
[2022-09-25 10:58] LABS: Basophils Absolute Auto 0.1 X10*3/uL (0.0-0.2); Eosinophils Absolute Auto 0.2 X10*3/uL (0.0-0.4); Eosinophils Percent Auto 2.5 % (0-4); Hemoglobin 13.7 g/dl (14.0-18.0); Imm Gran Abs Auto 0.03 X10*3/uL (0.00-0.03); Imm Gran Pct Auto 0.3 % (0.0-0.4); Lymphocytes Absolute Auto 2.9 X10*3/uL (1.2-4.9); Lymphocytes Percent Auto 31.1 % (20-40); MANUAL DIFF FLAG NO; Mean Corpuscular HGB Conc 33.4 g/dl (31.0-36.0); Mean Corpuscular Hemoglobin 30.6 pg (27.0-33.0); Mean Corpuscular Volume 91.7 fL (80.0-98.0); Mean Platelet Volume 10.1 fL (9.4-12.4); Monocytes Absolute Auto 0.7 X10*3/uL (0.1-1.2); Monocytes Percent Auto 7.1 % (2-11); Neutrophils Absolute Auto 5.4 x10*3/uL (2.0-8.3); Platelet Count 195 X10*3/uL (160-400); Red Blood Count 4.47 X10*6/uL (4.60-5.80); Red Cell Distribution Width 13.7 % (11.0-16.0); White Blood Count 9.2 X10*3/uL (4.8-10.8)
[2022-09-25 11:05] LABS: INTERNATIONAL NORM RATIO 0.9 (0.9-1.1); Prothrombin Time 10.8 SEC (10.0-13.1)
[2022-09-25 11:07] LABS: D Dimer High Sensitivity 523 NG/ML
[2022-09-25 11:16] LABS: Anion Gap 12 (12-20); Blood Urea Nitrogen 23 mg/dL (9-16); Calcium 8.8 mg/dL (8.4-10.2); Carbon Dioxide 26 mmol/L (22-29); Chloride 107 mmol/L (96-108); Estimated Glomerular Filt Rate 44; Glucose Random 104 mg/dL (60-115); Potassium 3.9 mmol/L (3.3-5.1); Sodium 141 mmol/L (135-145)
[2022-09-25 11:21] LABS: Troponin-I High Sensitivity 5.8 ng/L (<3.5-35.0)
[2022-09-25 11:31] VITALS: BP 158/96
[2022-09-25] MEDS: Losartan Potassium 50 MG TABLET PO (11:42)
[2022-09-25 11:43] VITALS: BP 180/95; PULSE 73; RESP 18; O2SAT 97
[2022-09-25 13:47] LABS: Troponin-I High Sensitivity 5.3 ng/L (<3.5-35.0)
[2022-09-25 13:58] VITALS: BP 142/95; PULSE 76; RESP 18; O2SAT 96
== END 2022-09-25 14:09 | disposition home or self-care (01) ==
PROVIDERS: Emergency Provider Internal Medicine; PCP Family Medicine
DX: R07.89 Other chest pain (principal); I10 Essential (primary) hypertension; Z79.899 Other long term (current) drug therapy
CPT/HCPCS: 36415; 80048; 84484; 85025; 85379; 85610; 93005; 99284; 99285

== ENCOUNTER 2022-11-21 13:30 | Emergency (ER) | payer MEDICARE, MEDICAID, SELFPAY ==
--- NOTE | ~2022-11-21 | XR_ITS ---
EXAMINATION: XR CHEST CLINICAL INFORMATION: Cough COMPARISON: 09/11/2022. TECHNIQUE: Frontal view of the chest was obtained. 2:10 PM FINDINGS: There are opacities noted in the medial right base suggestive of atelectasis or small patchy infiltrate. Pulmonary vascularity appears to be stable. No distinct pleural effusions. Thoracic spondylitic change noted. XR/XR chest 1V IMPRESSION: Atelectasis versus small patchy infiltrate in the medial right base. No pleural effusions or vascular congestion seen.
--- NOTE | ~2022-11-21 | CT_ITS ---
EXAMINATION: CT CERVICAL SPINE WITHOUT CONTRAST CLINICAL INFORMATION: Fall. COMPARISON: Cervical spine CT 06/19/2022. TECHNIQUE: [employer] images were obtained. CT imaging of the cervical spine was performed without contrast. Data was reformatted into multiplanar images at the acquisition workstation. This CT examination was performed using dose optimization techniques as appropriate, including one or more of the following: Automated exposure control, iterative reconstruction, and adjustment of technique factors (mA and/or kVp) according to patient size (this includes techniques or standardized protocols for targeted exams where dose is matched to indication/reason for exam). Fleischner Society criteria for the followup of incidental pulmonary nodules was implemented if appropriate. DLP: 1340 mGy-cm FINDINGS: Alignment is normal. Vertebral body heights are preserved. No acute cervical spine fracture. No abnormal prevertebral soft tissue swelling. Grossly no spinal canal compromise. Limited visualization of the intracranial anatomy reveals no abnormal finding. There is no mastoid middle ear effusion. The temporomandibular joints are grossly symmetric. Heavily calcified atheromatous plaque involves both carotid bifurcations. Soft tissues of the neck are otherwise unremarkable. CT/CT cervical spine wo IV con IMPRESSION: Unremarkable cervical spine CT scan. No acute fracture and no posttraumatic spinal subluxation. Heavily calcified atheromatous plaque involves both carotid bifurcations.
--- NOTE | ~2022-11-21 | CT_ITS ---
EXAMINATION: CT HEAD WITHOUT CONTRAST CLINICAL INFORMATION: Fall, on chronic anticoagulation COMPARISON: May 2022. TECHNIQUE: Contiguous axial imaging was performed from the skull base to vertex without intravenous administration of contrast. This CT examination was performed using dose optimization techniques as appropriate, variously including the following: *Automated exposure control *Adjustment of mA and/or kV according to patient size (this includes techniques or standardized protocols for targeted exams where dose is matched to indication/reason for exam; i.e. extremities or head) *Use of iterative reconstruction technique DLP: 805 mGy-cm FINDINGS: No evidence for acute hemorrhage or mass effect. Cisterns unremarkable. Choudhury/white matter differentiation is maintained. No appreciable extra-axial collections. No appreciable intraventricular blood. Atrophy observed. There are hypodense changes of periventricular and subcortical white matter consistent with chronic small vessel ischemic disease. Small region of encephalomalacia in the right frontoparietal cortex series 3 image 62 does not appear to be appreciably changed. The mastoid air cells are well aerated. Skull base intact. The calvarium is unremarkable. CT/CT head/brain wo IV con IMPRESSION: No evidence for acute process. Atrophy with change of chronic small vessel ischemic disease. Small encephalomalacic change in the right frontoparietal cortex appears stable.
[2022-11-21 13:49] VITALS: BP 122/86; BP 168/86; PULSE 59; RESP 16; TEMP 36.3; O2SAT 98; BMI 32.6
--- NOTE | 2022-11-21 13:59 | ECG_ITS ---
Test Reason : dizziness Blood Pressure : / mmHG Vent. Rate : 050 BPM Atrial Rate : 050 BPM P-R Int : 168 ms QRS Dur : 090 ms QT Int : 476 ms P-R-T Axes : 023 -18 -19 degrees QTc Int : 433 ms Sinus bradycardia Minimal voltage criteria for LVH, may be normal variant ( R in aVL ) Borderline ECG When compared with ECG of 25-SEP-2022 10:35, No significant change was found Referred By: Elysia Brown Electronically Signed By:NETTIE ALVARADO
[2022-11-21 14:36] LABS: MANUAL DIFF FLAG NO
[2022-11-21 14:41] LABS: Basophils Absolute Auto 0.1 X10*3/uL (0.0-0.2); Eosinophils Absolute Auto 0.4 X10*3/uL (0.0-0.4); Eosinophils Percent Auto 3.6 % (0-4); Hematocrit 41.4 % (42.0-52.0); Hemoglobin 13.8 g/dl (14.0-18.0); Imm Gran Abs Auto 0.05 X10*3/uL (0.00-0.03); Imm Gran Pct Auto 0.5 % (0.0-0.4); Lymphocytes Absolute Auto 3.4 X10*3/uL (1.2-4.9); Lymphocytes Percent Auto 33.5 % (20-40); Mean Corpuscular HGB Conc 33.3 g/dl (31.0-36.0); Mean Corpuscular Hemoglobin 30.5 pg (27.0-33.0); Mean Corpuscular Volume 91.4 fL (80.0-98.0); Mean Platelet Volume 10.4 fL (9.4-12.4); Monocytes Absolute Auto 0.6 X10*3/uL (0.1-1.2); Monocytes Percent Auto 6.1 % (2-11); Neutrophils Absolute Auto 5.6 x10*3/uL (2.0-8.3); Neutrophils Percent Auto 55.3 % (45-73); Platelet Count 243 X10*3/uL (160-400); Red Blood Count 4.53 X10*6/uL (4.60-5.80); Red Cell Distribution Width 13.7 % (11.0-16.0); White Blood Count 10.1 X10*3/uL (4.8-10.8)
[2022-11-21 14:43] LABS: Prothrombin Time 11.6 SEC (11.1-13.3)
[2022-11-21 15:11] LABS: Alanine Aminotransferase 19 U/L (0-40); Albumin Level 3.4 g/dL (3.5-5.0); Alkaline Phosphatase 105 U/L (39-117); Anion Gap 15 (12-20); Aspartate Amino Transferase 18 U/L (5-37); Bilirubin Total 0.3 mg/dL (0.0-1.0); Blood Urea Nitrogen 17 mg/dL (9-16); Calcium 8.8 mg/dL (8.4-10.2); Carbon Dioxide 22 mmol/L (22-29); Chloride 107 mmol/L (96-108); Creatinine Clr Calc Pharmacy 58.9; Estimated Glomerular Filt Rate 44; Glucose Random 153 mg/dL (60-115); Potassium 3.5 mmol/L (3.3-5.1); Sodium 140 mmol/L (135-145); Total Protein 6.7 g/dL (6.5-8.0)
--- NOTE | 2022-11-21 15:38 | ED.FALL ---
HPI - Fall General Chief Complaint: Fall Stated Complaint: FALL T-2,?HS,?LOC,+THINNERS,GANT,SLEEPY PER EMS Time Seen by Provider: 11/21/22 13:58 Source: patient History of Present Illness HPI Narrative: 67-year-old male presents via EMS with a fall on Monday and reports that he had a head strike and is unsure if he had loss of consciousness. Patient does endorse that he takes blood thinners. Patient has complained of a headache but has not taken anything for otherwise he states that he has no fevers or chills, no new cough. Related Data Home Medications Medication Instructions Recorded Confirmed atorvastatin 80 mg tablet 1 tab PO BEDTIME 01/12/21 09/12/22 bupropion HCl 150 mg tablet,12 hr 1 tab PO BID 01/12/21 09/12/22 sustained-release clopidogrel 75 mg tablet 1 tab PO DAILY 01/12/21 09/12/22 fluoxetine 40 mg capsule 1 cap PO DAILY 01/12/21 09/12/22 isosorbide mononitrate 30 mg 1 tab PO DAILY 01/12/21 09/12/22 tablet,extended release 24 hr lamotrigine 100 mg tablet 1 tab PO BID 01/12/21 09/12/22 metoprolol tartrate 25 mg tablet 1 tab PO BID 01/12/21 09/12/22 quetiapine 400 mg tablet,extended 1 tab PO BEDTIME 01/12/21 09/12/22 release 24 hr trazodone 100 mg tablet 2 tab PO BEDTIME PRN Insomnia 01/12/21 09/12/22 aspirin 81 mg tablet,delayed 1 tab PO DAILY 11/03/21 09/12/22 release fluticasone propionate 50 1 spray intranasal BID PRN Allergy 11/03/21 09/12/22 mcg/actuation nasal Symptoms spray,suspension fluoxetine 10 mg capsule 1 cap PO DAILY 05/19/22 09/12/22 Previous Rx's Medication Instructions Recorded amlodipine 10 mg tablet 10 mg PO DAILY #1 tab 09/12/22 docusate sodium 100 mg capsule 100 mg PO DAILY PRN Constipation 09/12/22 #1 cap heparin (porcine) 25,000 unit/250 25,000 unit (250 mL) continuous IV 09/12/22 mL in 0.45 % sodium chloride IV infusion .Q0M #1 mL soln nitroglycerin 0.4 mg sublingual 0.4 mg sublingual Q5M PRN chest 09/12/22 tablet pain #1 tab losartan 50 mg tablet 50 mg PO DAILY #30 tabs 09/25/22 amoxicillin 875 mg-potassium 1 tab PO BID 5 days #10 tabs 11/21/22 clavulanate 125 mg tablet Allergies Allergy/AdvReac Type Severity Reaction Status Date / Time clozapine [From Clozaril] Allergy Unknown RASH Verified 08/02/21 09:52 hydroxyzine [From VISTARIL] Allergy Unknown UNKNOWN Verified 08/02/21 09:52 menthol [From Antihistamine] Allergy Unknown RASH Verified 08/02/21 09:52 nicotine [Nicotine] Allergy Unknown GUM- MAKES Verified 08/02/21 09:52 SICK TO STOMACH nut - unspecified [nut] Allergy Unknown SWELLING Verified 08/02/21 09:52 From Antihistamine Allergy Unknown RASH Uncoded 01/12/21 02:28 Review of Systems Review of Systems: Pertinent positives and negatives as stated HPI [facility] Past Medical History Source: nursing notes reviewed Medical History Arthritis Bilateral carotid artery stenosis CAD (coronary artery disease) History of CVA (cerebrovascular accident) Hypertension Myocardial infarct Peripheral arterial disease Schizoaffective disorder Stroke due to stenosis of carotid artery Surgical History H/O heart artery stent No significant past surgical history Family History Family History Father Heart disease Social History Social History Household Members: None Housing: Apartment Do you presently have visiting nurse or other home services: Yes Alcohol intake: current Alcohol intake frequency: holidays/special occasions only Alcohol type: beer, wine and hard liquor Patient Tobacco Use Status: Never used Tobacco Tobacco use type: Cigar Smoked in Last 30 Days: No Use of substances other than those prescribed or required for medical reasons: No Advance Directives: Yes Advance Directives on File: Yes Advance Directives Date on File: 01/18/21 service: No Physical Exam Vital Signs: Vital Signs: Last Vital Signs Temp 97.7 F 11/21/22 17:03 Pulse 49 L 11/21/22 17:03 Resp 12 11/21/22 17:03 BP 164/78 H 11/21/22 17:03 Pulse Ox 96 11/21/22 17:03 O2 Del Method Room Air 11/21/22 17:03 BMI result Body Mass Index 32.6 VITAL SIGNS: Reviewed. GENERAL: Well developed, well nourished, in no acute distress. HEAD: Normocephalic/atraumatic EYES: PERRLA, EOMI EARS: Ext canals without abnormality NOSE: Nares patent bilateral OROPHARYNX: no oral lesions noted, posterior pharynx clear NECK: Supple, no adenopathy LUNGS: Normal breath sounds. No adventitious sounds or accessory muscle use. SpO2<96> CARDIOVASCULAR: Regular rate and rhythm without noted murmurs, no JVD or lower extremity edema. ABDOMEN: Soft, non-tender, non-distended with bowel sounds. MUSCULOSKELETAL: No tenderness, deformities, or effusions noted on gross inspection. EXTREMITIES: No cyanosis, clubbing or edema. SKIN: Inspection of the skin reveals no rashes NEUROLOGIC: Alert and oriented x 4. Strength and sensation to light touch were grossly intact x 4, cranial nerves 2-12 are grossly intact. Medical Decision Making Medical Decision Making [facility] Narrative: 67-year-old male with history and clinical presentation, DDX: Intracranial hemorrhage unlikely, cervical spine fracture unlikely, will rule out infection due to patient's falls. I reviewed all investigations, hematologic indices without leukocytosis or left shift, there is chronically stable normocytic anemia and no evidence of thrombocytopenia. Coagulation studies are grossly within normal limits. Chemistry indices do not demonstrate any electrolyte or liver enzyme derangements and patient has chronically stable CKD. On review of the chest x-ray there is small patchy opacity suggestive of early M pneumonia and taken into consideration with falls will empirically treat for community-acquired pneumonia, otherwise CT scan of the head there is no intracranial hemorrhage and otherwise my interpretation is in agreement with radiology's impression. In addition review of C-spine no acute fractures or subluxations noted and otherwise my interpretation is in agreement with radiology's impression. Differential Diagnosis Differential Diagnoses: The differential diagnosis associated with the presentation includes Please see the discussion above Admission/Observation Consideration of admission/observation: Escalation of care including admission/observation considered Please see the discussion above Lab Data [facility] Lab Attestation statement: I reviewed the patient's lab results. Please see the discussion above 11/21/22 14:33 11/21/22 14:33 Labs: Lab Results 11/21/22 11/21/22 11/21/22 Range/Units 14:33 14:33 14:33 WBC 10.1 (4.8-10.8) X10*3/uL RBC 4.53 L (4.60-5.80) X10*6/uL Hgb 13.8 L (14.0-18.0) g/dl Hct 41.4 L (42.0-52.0) % MCV 91.4 (80.0-98.0) fL MCH 30.5 (27.0-33.0) pg MCHC 33.3 (31.0-36.0) g/dl RDW 13.7 (11.0-16.0) % Plt Count 243 (160-400) X10*3/uL MPV 10.4 (9.4-12.4) fL Immature Gran % (Auto) 0.5 H (0.0-0.4) % Neut % (Auto) 55.3 (45-73) % Lymph % (Auto) 33.5 (20-40) % [place] % (Auto) 6.1 (2-11) % Eos % (Auto) 3.6 (0-4) % Baso % (Auto) 1.0 (0-2) % Lymph # (Auto) 3.4 (1.2-4.9) X10*3/uL [place] # (Auto) 0.6 (0.1-1.2) X10*3/uL Eos # (Auto) 0.4 (0.0-0.4) X10*3/uL Baso # (Auto) 0.1 (0.0-0.2) X10*3/uL Abs Immat Gran (auto) 0.05 H (0.00-0.03) X10*3/uL Absolute Neuts (auto) 5.6 (2.0-8.3) x10*3/uL Absolute Nucleated RBC 0.000 (0.0-0.012) X10*3/uL Nucleated RBC % (auto) 0.0 (0.0-0.2) /100WBC PT 11.6 (11.1-13.3) SEC INR 1.0 (0.9-1.1) Sodium 140 (135-145) mmol/L Potassium 3.5 (3.3-5.1) mmol/L Chloride 107 (96-108) mmol/L Carbon Dioxide 22 (22-29) mmol/L Anion Gap 15 (12-20) BUN 17 H (9-16) mg/dL Creatinine 1.57 H (0.5-1.4) mg/dL Estim Creat Clear Calc 58.9 Estimated GFR 44 Random Glucose 153 H (60-115) mg/dL Calcium 8.8 (8.4-10.2) mg/dL Total Bilirubin 0.3 (0.0-1.0) mg/dL AST 18 (5-37) U/L ALT 19 (0-40) U/L Alkaline Phosphatase 105 (39-117) U/L Total Protein 6.7 (6.5-8.0) g/dL Albumin 3.4 L (3.5-5.0) g/dL Urine Color Urine Appearance Urine pH (5.0-9.0) Ur Specific [place] (1.005-1.025) Urine Protein (Neg-Trace) mg/dL Urine Glucose (UA) (Negative) mg/dL Urine Ketones (Negative) mg/dL Urine Blood (Negative) Urine Nitrite (Negative) Ur Leukocyte Esterase (Negative) 11/21/22 Range/Units 17:02 WBC (4.8-10.8) X10*3/uL RBC (4.60-5.80) X10*6/uL Hgb (14.0-18.0) g/dl Hct (42.0-52.0) % MCV (80.0-98.0) fL MCH (27.0-33.0) pg MCHC (31.0-36.0) g/dl RDW (11.0-16.0) % Plt Count (160-400) X10*3/uL MPV (9.4-12.4) fL Immature Gran % (Auto) (0.0-0.4) % Neut % (Auto) (45-73) % Lymph % (Auto) (20-40) % [place] % (Auto) (2-11) % Eos % (Auto) (0-4) % Baso % (Auto) (0-2) % Lymph # (Auto) (1.2-4.9) X10*3/uL [place] # (Auto) (0.1-1.2) X10*3/uL Eos # (Auto) (0.0-0.4) X10*3/uL Baso # (Auto) (0.0-0.2) X10*3/uL Abs Immat Gran (auto) (0.00-0.03) X10*3/uL Absolute Neuts (auto) (2.0-8.3) x10*3/uL Absolute Nucleated RBC (0.0-0.012) X10*3/uL Nucleated RBC % (auto) (0.0-0.2) /100WBC PT (11.1-13.3) SEC INR (0.9-1.1) Sodium (135-145) mmol/L Potassium (3.3-5.1) mmol/L Chloride (96-108) mmol/L Carbon Dioxide (22-29) mmol/L Anion Gap (12-20) BUN (9-16) mg/dL Creatinine (0.5-1.4) mg/dL Estim Creat Clear Calc Estimated GFR Random Glucose (60-115) mg/dL Calcium (8.4-10.2) mg/dL Total Bilirubin (0.0-1.0) mg/dL AST (5-37) U/L ALT (0-40) U/L Alkaline Phosphatase (39-117) U/L Total Protein (6.5-8.0) g/dL Albumin (3.5-5.0) g/dL Urine Color Yellow Urine Appearance Clear Urine pH 7.0 (5.0-9.0) Ur Specific [place] <= 1.005 (1.005-1.025) Urine Protein Negative (Neg-Trace) mg/dL Urine Glucose (UA) Negative (Negative) mg/dL Urine Ketones Negative (Negative) mg/dL Urine Blood Negative (Negative) Urine Nitrite Negative (Negative) Ur Leukocyte Esterase Negative (Negative) Independent Interpretation I performed an independent interpretation of an: EKG Interpretation: Sinus bradycardia, HR-50, no STEMI, NV/QRS/QTC is within normal limits. Radiology Impression Radiologist Impression: Small patchy infiltrate in right base, otherwise my interpretation is in agreement with radiology's impression. Please see the discussion above External Record Review External record reviewed: Outpatient record and Prior outpatient labs Chronic Conditions Patient?s care impacted by: Hypertension Critical Care Time Critical Care Time Critical Care Time: Yes Total Critical Care Time: 30 Attestation: I personally attest to this time spent taking care of the patient. Discharge Plan Discharge Clinical Impression: Fall, Chronic anticoagulation, Pneumonia Patient Disposition: Home, Self-Care Instructions: Fall Prevention for Older Adults (ED), Pneumonia (ED), Blood Thinners (ED) Additional Instructions: 1. Resume all home medications as prescribed. 2. Complete the entire course of antibiotics as prescribed. 3. Follow-up with your primary care provider in the morning. Return to the ER for any worsening symptoms. Prescriptions: New amoxicillin-pot clavulanate 875-125 mg tablet 1 tab PO BID 5 Days Qty: 10 0RF No Action fluoxetine 40 mg capsule 1 cap PO DAILY Rx Instructions: take with 10mg; total dose 50mg bupropion HCl 150 mg tablet sustained-release 12 hr 1 tab PO BID atorvastatin 80 mg tablet 1 tab PO BEDTIME isosorbide mononitrate 30 mg tablet extended release 24 hr 1 tab PO DAILY clopidogrel 75 mg tablet 1 tab PO DAILY trazodone 100 mg tablet 2 tab PO BEDTIME PRN (Reason: Insomnia) lamotrigine 100 mg tablet 1 tab PO BID metoprolol tartrate 25 mg tablet 1 tab PO BID quetiapine 400 mg tablet extended release 24 hr 1 tab PO BEDTIME fluoxetine 10 mg capsule 1 cap PO DAILY Rx Instructions: take with 40mg; total dose 50mg aspirin 81 mg tablet,delayed release (DR/EC) 1 tab PO DAILY fluticasone propionate 50 mcg/actuation [place],Suspension 1 spray INTRANASAL BID PRN (Reason: Allergy Symptoms) Rx Instructions: administer into each nostril amlodipine 10 mg Tablet 10 mg PO DAILY Qty: 1 0RF Protocol: Hold for SBP< HOLD for SBP < : 90 docusate sodium 100 mg Capsule 100 mg PO DAILY PRN (Reason: Constipation) Qty: 1 0RF heparin(porcine) in 0.45% NaCl 25,000 unit/250 mL Parenteral Solution 25,000 unit continuous IV infusion .Q0M Qty: 1 0RF nitroglycerin 0.4 mg tablet, sublingual 0.4 mg sublingual Q5M PRN (Reason: chest pain) Qty: 1 0RF Rx Instructions: do not exceed 3 doses per episode losartan 50 mg tablet 50 mg PO DAILY Qty: 30 0RF Referrals: Balaji Mayo MD [Primary Care Provider] -
[2022-11-21 17:03] VITALS: BP 164/78; PULSE 49; RESP 12; TEMP 36.5; O2SAT 96
[2022-11-21 17:04] LABS: Appearance Urine Clear; Color Urine Yellow; Glucose Urine UA Negative (Negative); Leukocyte Esterase Urine Negative (Negative); Nitrite Urine Negative (Negative); Specific Gravity - Urine <= 1.005 (1.005-1.025); Urine Blood Negative (Negative); Urine Ketones Negative (Negative); Urine Protein Negative (Neg-Trace)
[2022-11-21] MEDS: Amoxicillin/Potassium Clav 875 MG TABLET PO (18:35)
== END 2022-11-21 18:42 | disposition home or self-care (01) ==
PROVIDERS: Emergency Provider Student in an Organized Health Care Education/Training Program; PCP Family Medicine
DX: J18.9 Pneumonia, unspecified organism (principal); Z91.81 History of falling; D64.9 Anemia, unspecified; Z86.73 Personal history of transient ischemic attack (TIA), and cerebral infarction without residual deficits; Z87.891 Personal history of nicotine dependence; Z79.01 Long term (current) use of anticoagulants
CPT/HCPCS: 36415; 70450; 71045; 72125; 80053; 81003; 85025; 85610; 93005; 99284

== ENCOUNTER → 2022-11-21 13:59 | Outpatient (BNV) | payer MEDICARE, MEDICAID, SELFPAY | PROVIDERS: Emergency Provider Student in an Organized Health Care Education/Training Program; PCP Family Medicine; Visit Provider Internal Medicine | DX: R00.1 Bradycardia, unspecified (principal) | CPT/HCPCS: 93010 ==

== ENCOUNTER 2022-11-22 12:15 | Observation (INO) | payer MEDICARE, MEDICAID, SELFPAY ==
[2022-11-22] VITALS (9 sets, daily range): BP systolic 141–185; BP diastolic 66–92; PULSE 51–73; RESP 16–18; TEMP 36.4–37.1; O2SAT 97–99; BMI 31.2
--- NOTE | ~2022-11-22 | XR_ITS ---
EXAMINATION: XR SHOULDER, LEFT CLINICAL INFORMATION: Left shoulder pain status post trauma. COMPARISON: None available. TECHNIQUE: AP external rotation, Grashey, scapular Y, and axillary views of the left shoulder. FINDINGS: Mild left acromioclavicular degenerative joint changes are seen. The left glenohumeral joint is unremarkable. The visualized left ribs are intact. The soft tissues are unremarkable. XR/XR shoulder LT min 2V IMPRESSION: Mild left acromioclavicular degenerative joint changes. No acute fracture.
--- NOTE | ~2022-11-22 | CT_ITS ---
EXAMINATION: CT HEAD WITHOUT CONTRAST CLINICAL INFORMATION: Head pain status post trauma. COMPARISON: Head CT scan dated 11/21/2022. TECHNIQUE: Contiguous axial imaging was performed from the skull base to vertex without intravenous administration of contrast. Coronal and sagittal reformatted images were obtained. There is some limitation secondary to mild motion artifact on several sequences. This CT examination was performed using dose optimization techniques as appropriate, variously including the following: *Automated exposure control *Adjustment of mA and/or kV according to patient size (this includes techniques or standardized protocols for targeted exams where dose is matched to indication/reason for exam; i.e. extremities or head) *Use of iterative reconstruction technique DLP: 1194 mGy-cm FINDINGS: There is mild widening of the cortical sulci and associated ventriculomegaly. The lateral ventricles are symmetrical. Small patent cava septum pellucidum. The third and fourth ventricles are in their normal midline position. The basilar and prepontine cisterns are unremarkable. Mild periventricular microvascular changes. There is no acute intra or extracerebral abnormality. There is no mass effect or midline shift. Sections through the bony calvarium are unremarkable. The orbits are intact. The paranasal sinuses are clear. The mastoid air cells are clear. CT/CT head/brain wo IV con IMPRESSION: No acute intracranial pathology.
--- NOTE | 2022-11-22 12:52 | ED_ITS ---
HPI - General Adult General Chief complaint: Fall Stated complaint: INWIT FALL @ [facility],BACK/L SHOULDER PAIN PER EMS Time Seen by Provider: 11/22/22 12:51 Source: patient Mode of arrival: EMS Limitations: no limitations History of Present Illness HPI narrative: 67-year-old male presents to the ER status post fall with multiple medical problems. Patient was seen here yesterday where he fell at that time 2 CT scans were done of head and neck that were negative patient also had a chest x-ray did done that showed a question infiltrate and patient was began to be treated with pneumonia. Patient's states he is unsure why he fell. 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 Patient has a history of coronary artery disease, hypertension, history of CVA, COPD, and bipolar disorder. This time patient denies chest pain or shortness of breath complaining mostly of lower back pain and left shoulder pain. Patient also states he has a headache and please see did hit his head. Symptoms are [id number]. No other complaints at this time. MD complaint: syncope Related Data Home Medications Medication Instructions Recorded Confirmed atorvastatin 80 mg tablet 1 tab PO BEDTIME 01/12/21 09/12/22 bupropion HCl 150 mg tablet,12 hr 1 tab PO BID 01/12/21 09/12/22 sustained-release clopidogrel 75 mg tablet 1 tab PO DAILY 01/12/21 09/12/22 fluoxetine 40 mg capsule 1 cap PO DAILY 01/12/21 09/12/22 isosorbide mononitrate 30 mg 1 tab PO DAILY 01/12/21 09/12/22 tablet,extended release 24 hr lamotrigine 100 mg tablet 1 tab PO BID 01/12/21 09/12/22 metoprolol tartrate 25 mg tablet 1 tab PO BID 01/12/21 09/12/22 quetiapine 400 mg tablet,extended 1 tab PO BEDTIME 01/12/21 09/12/22 release 24 hr trazodone 100 mg tablet 2 tab PO BEDTIME PRN Insomnia 01/12/21 09/12/22 aspirin 81 mg tablet,delayed 1 tab PO DAILY 11/03/21 09/12/22 release fluticasone propionate 50 1 spray intranasal BID PRN Allergy 07/13/22 05/22/23 mcg/actuation nasal Symptoms spray,suspension fluoxetine 10 mg capsule 1 cap PO DAILY 05/19/22 09/12/22 Previous Rx's Medication Instructions Recorded amlodipine 10 mg tablet 10 mg PO DAILY #1 tab 09/12/22 docusate sodium 100 mg capsule 100 mg PO DAILY PRN Constipation 09/12/22 #1 cap heparin (porcine) 25,000 unit/250 25,000 unit (250 mL) continuous IV 09/12/22 mL in 0.45 % sodium chloride IV infusion .Q0M #1 mL soln nitroglycerin 0.4 mg sublingual 0.4 mg sublingual Q5M PRN chest 09/12/22 tablet pain #1 tab losartan 50 mg tablet 50 mg PO DAILY #30 tabs 09/25/22 amoxicillin 875 mg-potassium 1 tab PO BID 5 days #10 tabs 11/21/22 clavulanate 125 mg tablet Allergies Allergy/AdvReac Type Severity Reaction Status Date / Time clozapine [From Clozaril] Allergy Unknown RASH Verified 08/02/21 09:52 hydroxyzine [From VISTARIL] Allergy Unknown UNKNOWN Verified 08/02/21 09:52 menthol [From Antihistamine] Allergy Unknown RASH Verified 08/02/21 09:52 nicotine [Nicotine] Allergy Unknown GUM- MAKES Verified 08/02/21 09:52 SICK TO STOMACH nut - unspecified [nut] Allergy Unknown SWELLING Verified 08/02/21 09:52 From Antihistamine Allergy Unknown RASH Uncoded 01/12/21 02:28 Review of Systems Review of Systems: General: No fever, no chills Ophthalmology: No vision changes, no discharge ENT: No sore throat, no ear pain Cardiovascular: No chest pain, no peripheral edema, no shortness of breath Respiratory: No dyspnea, no sputum production, no cough Muscle skeletal: Left shoulder pain lower back pain GI: No abdominal pain, no nausea vomiting, no diarrhea : No dysuria, no urgency, no frequency Psychiatric: No depression, no suicidal ideation, no homicidal ideation Skin: No rash Neuro: Positive headache unsure of loss of consciousness Immunology: No immunocompromised Hematology: No bleeding, no bruising PMFSH Past Medical History Medical History Arthritis Bilateral carotid artery stenosis CAD (coronary artery disease) History of CVA (cerebrovascular accident) Hypertension Myocardial infarct Peripheral arterial disease Schizoaffective disorder Stroke due to stenosis of carotid artery Surgical History H/O heart artery stent No significant past surgical history Family History Family History Father Heart disease Social History Social History Household Members: None Housing: Apartment Do you presently have visiting nurse or other home services: Yes Alcohol intake: current Alcohol intake frequency: holidays/special occasions only Alcohol type: beer, wine and hard liquor Patient Tobacco Use Status: Never used Tobacco Tobacco use type: Cigar Smoked in Last 30 Days: Yes Advance Directives: Yes Advance Directives on File: Yes Advance Directives Date on File: 01/18/21 service: No Physical Exam ED Vital Signs: Vital Signs - 24 hr 11/22/22 12:27 11/22/22 15:27 11/22/22 18:00 Temperature 98.7 F Pulse Rate 55 65 52 Respiratory Rate 16 16 16 Blood Pressure 154/84 H 162/74 H 185/80 H Pulse Oximetry 98 99 98 Oxygen Delivery Method Room Air Nasal Cannula Room Air Oxygen Flow Rate 2 BMI result Body Mass Index 31.2 General appearance: Awake, alert, cooperative, in no acute distress Skin: Warm, dry, no rash no obvious abrasions ecchymosis noted. Eyes: PERRL, EOMI, ENT: Oropharynx normal, uvula midline Neck: Full range of motion positive paraspinal muscle tenderness on left side no midline tenderness of the cervical spine. Pulmonary: Breath sounds clear to auscultation bilaterally, no accessory muscle use Cardiovascular: Regular rate and rhythm, no murmurs and rubs Abdomen: Soft nontender, no rebound or guarding, positive bowel sounds Extremities: Positive paraspinous tenderness of the lumbar spine diffuse. Positive tenderness diffusely of the left shoulder no crepitus pain increases with range of motion. 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 Patient complaining of left shoulder pain lower back pain. Patient has long axis study history of acute kidney disease COPD hypertension has been evaluated for ACS in the past and history of stroke. CBC CMP UA EKG x-ray of the left shoulder CT scan of the head. Neural pending at this time. ECG normal sinus rhythm at a rate of [address] elevation 14:10 CT scan of the head negative for intracranial pathology. 14:18 x-ray left shoulder shows acromioclavicular degenerative joint disease no acute fractures noted on imaging. CMP is still pending at this time troponin is 3.1 overall low suspicion for ACS. 2nd troponin pending at 15:30 1932 - patient was given to me as a sign-out pending troponin. 2nd troponin 5.7. Extensive review of past medical history revealing that patient has had a AAA measuring 5 cm last year, last CTA was performed last year. Given syncopal episodes with unknown etiology is unclear what is causing him to syncopized, I believe that patient would require further a testing and medical workup. Given poor kidney function, CTA is contraindicated. given unable to rule out pulmonary embolism for source of syncopal episodes, a V/Q scan may be warranted at this time. I called and spoke to [facility] worker, Jed Ely at [phone], who states that patient has had multiple unwitnessed falls, increasing over the last couple weeks. He states that he has been told by neighbors that he has been falling often. Jed Ely recommends that he should be evaluated to see if he qualifies for rehabilitation. Taking patient off of 2 L, patient has remained stable, oxygen saturation 98% on room air. lungs clear to auscultation bilaterally, patient appears comfortable. Spoke to hospitalist, Dr. Yañez, who accepts transfer of care. Patient admitted to the hospital for further workup and management Medications Administered Discontinued Medications Generic Name Dose Route Start Last Admin Trade Name Freq PRN Reason Stop Dose Admin Acetaminophen 650 mg 11/22/22 17:07 11/22/22 17:18 Acetaminophen 325 Mg Tablet PO 11/22/22 17:08 650 mg ONCE ONE Administration Medical Decision Making Lab Data 11/22/22 13:50 11/22/22 13:50 Labs: Lab Results 11/22/22 11/22/22 11/22/22 Range/Units 13:50 13:50 13:50 WBC 11.9 H (4.8-10.8) X10*3/uL RBC 4.70 (4.60-5.80) X10*6/uL Hgb 14.0 (14.0-18.0) g/dl Hct 41.6 L (42.0-52.0) % MCV 88.5 (80.0-98.0) fL MCH 29.8 (27.0-33.0) pg MCHC 33.7 (31.0-36.0) g/dl RDW 13.6 (11.0-16.0) % Plt Count 255 (160-400) X10*3/uL MPV 10.6 (9.4-12.4) fL Immature Gran % (Auto) 0.5 H (0.0-0.4) % Neut % (Auto) 64.9 (45-73) % Lymph % (Auto) 25.4 (20-40) % [place] % (Auto) 6.3 (2-11) % Eos % (Auto) 1.8 (0-4) % Baso % (Auto) 1.1 (0-2) % Lymph # (Auto) 3.0 (1.2-4.9) X10*3/uL [place] # (Auto) 0.8 (0.1-1.2) X10*3/uL Eos # (Auto) 0.2 (0.0-0.4) X10*3/uL Baso # (Auto) 0.1 (0.0-0.2) X10*3/uL Abs Immat Gran (auto) 0.06 H (0.00-0.03) X10*3/uL Absolute Neuts (auto) 7.7 (2.0-8.3) x10*3/uL Absolute Nucleated RBC 0.000 (0.0-0.012) X10*3/uL Nucleated RBC % (auto) 0.0 (0.0-0.2) /100WBC PT 12.5 (11.1-13.3) SEC INR 1.0 (0.9-1.1) Sodium (135-145) mmol/L Potassium (3.3-5.1) mmol/L Chloride (96-108) mmol/L Carbon Dioxide (22-29) mmol/L Anion Gap (12-20) BUN (9-16) mg/dL Creatinine (0.5-1.4) mg/dL Estim Creat Clear Calc Estimated GFR Random Glucose (60-115) mg/dL Calcium (8.4-10.2) mg/dL Total Bilirubin (0.0-1.0) mg/dL AST (5-37) U/L ALT (0-40) U/L Alkaline Phosphatase (39-117) U/L Troponin I High Sens 3.1 (<3.5-35.0) ng/L Total Protein (6.5-8.0) g/dL Albumin (3.5-5.0) g/dL Urine Color Urine Appearance Urine pH (5.0-9.0) Ur Specific [place] (1.005-1.025) Urine Protein (Neg-Trace) mg/dL Urine Glucose (UA) (Negative) mg/dL Urine Ketones (Negative) mg/dL Urine Blood (Negative) Urine Nitrite (Negative) Ur Leukocyte Esterase (Negative) 11/22/22 11/22/22 11/22/22 Range/Units 14:19 15:52 18:11 WBC (4.8-10.8) X10*3/uL RBC (4.60-5.80) X10*6/uL Hgb (14.0-18.0) g/dl Hct (42.0-52.0) % MCV (80.0-98.0) fL MCH (27.0-33.0) pg MCHC (31.0-36.0) g/dl RDW (11.0-16.0) % Plt Count (160-400) X10*3/uL MPV (9.4-12.4) fL Immature Gran % (Auto) (0.0-0.4) % Neut % (Auto) (45-73) % Lymph % (Auto) (20-40) % [place] % (Auto) (2-11) % Eos % (Auto) (0-4) % Baso % (Auto) (0-2) % Lymph # (Auto) (1.2-4.9) X10*3/uL [place] # (Auto) (0.1-1.2) X10*3/uL Eos # (Auto) (0.0-0.4) X10*3/uL Baso # (Auto) (0.0-0.2) X10*3/uL Abs Immat Gran (auto) (0.00-0.03) X10*3/uL Absolute Neuts (auto) (2.0-8.3) x10*3/uL Absolute Nucleated RBC (0.0-0.012) X10*3/uL Nucleated RBC % (auto) (0.0-0.2) /100WBC PT (11.1-13.3) SEC INR (0.9-1.1) Sodium 143 (135-145) mmol/L Potassium 3.6 (3.3-5.1) mmol/L Chloride 110 H (96-108) mmol/L Carbon Dioxide 21 L (22-29) mmol/L Anion Gap 16 (12-20) BUN 20 H (9-16) mg/dL Creatinine 1.63 H (0.5-1.4) mg/dL Estim Creat Clear Calc 55.6 Estimated GFR 43 Random Glucose 93 (60-115) mg/dL Calcium 9.2 (8.4-10.2) mg/dL Total Bilirubin 0.5 (0.0-1.0) mg/dL AST 21 (5-37) U/L ALT 21 (0-40) U/L Alkaline Phosphatase 101 (39-117) U/L Troponin I High Sens 5.7 D (<3.5-35.0) ng/L Total Protein 6.8 (6.5-8.0) g/dL Albumin 3.4 L (3.5-5.0) g/dL Urine Color Yellow Urine Appearance Clear Urine pH 7.5 (5.0-9.0) Ur Specific [place] 1.020 (1.005-1.025) Urine Protein Trace (Neg-Trace) mg/dL Urine Glucose (UA) Negative (Negative) mg/dL Urine Ketones Negative (Negative) mg/dL Urine Blood Negative (Negative) Urine Nitrite Negative (Negative) Ur Leukocyte Esterase Negative (Negative) Radiology Impression Discussion of test interpretation with radiology: I have reviewed the radiologist's reading. Radiologist Impression: [address] [place], [place] [id number] Scan ReportSigned Patient: Edward Rosa JMR#: [id number]: [id number]:[id number]/Sex: 67 / MADM Date: 11/22/22Loc: EDAttending Dr: Ordering Physician: Jason Harden Date of Service: 11/22/22 Procedure(s): CT head/brain wo IV con Accession Number(s): [id number] cc: Jason Harden ~ EXAMINATION: CT HEAD WITHOUT CONTRAST CLINICAL INFORMATION: Head pain status post trauma. COMPARISON: Head CT scan dated 11/21/2022. TECHNIQUE: Contiguous axial imaging was performed from the skull base to vertex without intravenous administration of contrast. Coronal and sagittal reformatted images were obtained. There is some limitation secondary to mild motion artifact on several sequences. This CT examination was performed using dose optimization techniques as appropriate, variously including the following: *Automated exposure control *Adjustment of mA and/or kV according to patient size (this includes techniques or standardized protocols for targeted exams where dose is matched to indication/reason for exam; i.e. extremities or head) *Use of iterative reconstruction technique DLP: 1194 mGy-cm FINDINGS: There is mild widening of the cortical sulci and associated ventriculomegaly. The lateral ventricles are symmetrical. Small patent cava septum pellucidum. The third and fourth ventricles are in their normal midline position. The basilar and prepontine cisterns are unremarkable. Mild periventricular microvascular changes. There is no acute intra or extracerebral abnormality. There is no mass effect or midline shift. Sections through the bony calvarium are unremarkable. The orbits are intact. The paranasal sinuses are clear. The mastoid air cells are clear. CT/CT head/brain wo IV con IMPRESSION: No acute intracranial pathology. Dictated By:Mukesh Pastrana MDSigned By:<Electronically signed by Mukesh Pastrana MD in [place]>11/22/22 1404 DD/ 1335TD/TT: Casing Grader: [address] [id number] ReportSigned Patient: Edward Rosa JMR#: [id number]: 7Acct:[id number]/Sex: 67 / MADM Date: 11/22/22Loc: EDAttending Dr: Ordering Physician: Jason Harden Date of Service: 11/22/22 Procedure(s): XR shoulder LT min 2V Accession Number(s): [id number] cc: Jason Harden ~ EXAMINATION: XR SHOULDER, LEFT CLINICAL INFORMATION: Left shoulder pain status post trauma. COMPARISON: None available. TECHNIQUE: AP external rotation, Grashey, scapular Y, and axillary views of the left shoulder. FINDINGS: Mild left acromioclavicular degenerative joint changes are seen. The left glenohumeral joint is unremarkable. The visualized left ribs are intact. The soft tissues are unremarkable. XR/XR shoulder LT min 2V IMPRESSION: Mild left acromioclavicular degenerative joint changes. No acute fracture. Dictated By:Mukesh Pastrana MDSigned By:<Electronically signed by Mukesh Pastrana MD in OV>11/22/22 1410 DD/ 1340TD/TT: Casing Grader: Discharge Plan Discharge Clinical Impression: Syncope Patient Disposition: Admitted As Inpatient Prescriptions: No Action fluoxetine 40 mg capsule 1 cap PO DAILY Rx Instructions: take with 10mg; total dose 50mg bupropion HCl 150 mg tablet sustained-release 12 hr 1 tab PO BID atorvastatin 80 mg tablet 1 tab PO BEDTIME isosorbide mononitrate 30 mg tablet extended release 24 hr 1 tab PO DAILY clopidogrel 75 mg tablet 1 tab PO DAILY trazodone 100 mg tablet 2 tab PO BEDTIME PRN (Reason: Insomnia) lamotrigine 100 mg tablet 1 tab PO BID metoprolol tartrate 25 mg tablet 1 tab PO BID quetiapine 400 mg tablet extended release 24 hr 1 tab PO BEDTIME fluoxetine 10 mg capsule 1 cap PO DAILY Rx Instructions: take with 40mg; total dose 50mg aspirin 81 mg tablet,delayed release (DR/EC) 1 tab PO DAILY fluticasone propionate 50 mcg/actuation [place],Suspension 1 spray INTRANASAL BID PRN (Reason: Allergy Symptoms) Rx Instructions: administer into each nostril amlodipine 10 mg Tablet 10 mg PO DAILY Qty: 1 0RF Protocol: Hold for SBP< HOLD for SBP < : 90 docusate sodium 100 mg Capsule 100 mg PO DAILY PRN (Reason: Constipation) Qty: 1 0RF heparin(porcine) in 0.45% NaCl 25,000 unit/250 mL Parenteral Solution 25,000 unit continuous IV infusion .Q0M Qty: 1 0RF nitroglycerin 0.4 mg tablet, sublingual 0.4 mg sublingual Q5M PRN (Reason: chest pain) Qty: 1 0RF Rx Instructions: do not exceed 3 doses per episode losartan 50 mg tablet 50 mg PO DAILY Qty: 30 0RF amoxicillin-pot clavulanate 875-125 mg tablet 1 tab PO BID 5 Days Qty: 10 0RF
--- NOTE | 2022-11-22 12:58 | ECG_ITS ---
Test Reason : FALL Blood Pressure : / mmHG Vent. Rate : 056 BPM Atrial Rate : 056 BPM P-R Int : 166 ms QRS Dur : 086 ms QT Int : 472 ms P-R-T Axes : 029 -12 -18 degrees QTc Int : 455 ms Sinus bradycardia Nonspecific ST abnormality Abnormal ECG When compared with ECG of 21-NOV-2022 14:51, No significant change was found Referred By: Jason Harden Electronically Signed By:NETTIE ALVARADO
[2022-11-22 13:55] LABS: MANUAL DIFF FLAG NO
[2022-11-22 14:00] LABS: Basophils Absolute Auto 0.1 X10*3/uL (0.0-0.2); Basophils Percent Auto 1.1 % (0-2); Eosinophils Absolute Auto 0.2 X10*3/uL (0.0-0.4); Eosinophils Percent Auto 1.8 % (0-4); Hematocrit 41.6 % (42.0-52.0); Imm Gran Abs Auto 0.06 X10*3/uL (0.00-0.03); Imm Gran Pct Auto 0.5 % (0.0-0.4); Lymphocytes Percent Auto 25.4 % (20-40); Mean Corpuscular HGB Conc 33.7 g/dl (31.0-36.0); Mean Corpuscular Hemoglobin 29.8 pg (27.0-33.0); Mean Corpuscular Volume 88.5 fL (80.0-98.0); Mean Platelet Volume 10.6 fL (9.4-12.4); Monocytes Absolute Auto 0.8 X10*3/uL (0.1-1.2); Monocytes Percent Auto 6.3 % (2-11); Neutrophils Absolute Auto 7.7 x10*3/uL (2.0-8.3); Neutrophils Percent Auto 64.9 % (45-73); Platelet Count 255 X10*3/uL (160-400); Red Cell Distribution Width 13.6 % (11.0-16.0); White Blood Count 11.9 X10*3/uL (4.8-10.8)
[2022-11-22 14:10] LABS: Prothrombin Time 12.5 SEC (11.1-13.3)
[2022-11-22 14:17] LABS: Troponin-I High Sensitivity 3.1 ng/L (<3.5-35.0)
--- NOTE | 2022-11-22 14:23 | MHC.EDTECH ---
Labs drawn and sent
[2022-11-22 14:43] LABS: Anion Gap 16 (12-20)
[2022-11-22 14:47] LABS: Alanine Aminotransferase 21 U/L (0-40); Albumin Level 3.4 g/dL (3.5-5.0); Alkaline Phosphatase 101 U/L (39-117); Aspartate Amino Transferase 21 U/L (5-37); Bilirubin Total 0.5 mg/dL (0.0-1.0); Blood Urea Nitrogen 20 mg/dL (9-16); Calcium 9.2 mg/dL (8.4-10.2); Carbon Dioxide 21 mmol/L (22-29); Chloride 110 mmol/L (96-108); Creatinine Clr Calc Pharmacy 55.6; Estimated Glomerular Filt Rate 43; Glucose Random 93 mg/dL (60-115); Potassium 3.6 mmol/L (3.3-5.1); Sodium 143 mmol/L (135-145); Total Protein 6.8 g/dL (6.5-8.0)
--- NOTE | 2022-11-22 15:20 | PC.NURSE ---
spoke to Kiki [facility] nurse. Reports that patient has has several falls over the past year with an increase over the past few weeks. Kiki reports that in the past pt has refuse PT/CM consults. RN was also unsure if todays fall was the result of a syncopal episode or not, and did report that while waiting for EMS pt attempted to fall asleep in the parking lots with staff standing by, but was encouraged to stay awake by those waiting with him
[2022-11-22 16:42] LABS: Troponin-I High Sensitivity 5.7 ng/L (<3.5-35.0)
[2022-11-22] MEDS: Acetaminophen 325 MG TABLET 650 MG PO (17:18)
--- NOTE | 2022-11-22 18:14 | MHC.EDTECH ---
Urine collected and sent to lab
[2022-11-22 18:21] LABS: Appearance Urine Clear; Color Urine Yellow; Glucose Urine UA Negative (Negative); Leukocyte Esterase Urine Negative (Negative); Nitrite Urine Negative (Negative); PH 7.5 (5.0-9.0); Urine Blood Negative (Negative); Urine Ketones Negative (Negative); Urine Protein Trace mg/dL (Neg-Trace)
--- NOTE | 2022-11-22 19:48 | PM.IMHP ---
History of Present Illness Date of Service: 11/22/22 Chief Complaint: Syncope This is a 67-year-old male with pertinent history of CAD status post stent, essential hypertension, history of CVA, COPD not on home oxygen, bipolar disorder who presents to the emergency department for evaluation of syncope. Patient is a poor historian and does not accurately remember the details. He states that he is here because he passed out and fell multiple times over the last few weeks. Patient states that it mostly happened while he was standing. Unable to say if he was dizzy or lightheaded prior to the episode of syncope. Sees he does have intermittent chest discomfort that has been ongoing for weeks. No palpitations. He was seen in the ER 1 day prior to presentation and was sent home with antibiotics for possible pneumonia. He denies fever, chills, shortness of breath, abdominal pain, changes in urinary or bowel habits. Review of Systems Constitutional: Constitutional: Reports no additional constitutional complaints Cardiovascular: Cardiovascular: Reports no additional cardiovascular complaints and Reports syncope Respiratory: Respiratory: Reports no additional respiratory complaints Gastrointestinal: Gastrointestinal: Reports no additional gastrointestinal complaints Genitourinary: Genitourinary: Reports no additional male genitourinary complaints Neurologic: Reports syncope [facility] Medical History Arthritis Bilateral carotid artery stenosis CAD (coronary artery disease) History of CVA (cerebrovascular accident) Hypertension Myocardial infarct Peripheral arterial disease Schizoaffective disorder Stroke due to stenosis of carotid artery Family History Father Heart disease Surgical History H/O heart artery stent No significant past surgical history Social History Household Members: None Housing: Apartment Do you presently have visiting nurse or other home services: Yes Alcohol intake: current Alcohol intake frequency: holidays/special occasions only Alcohol type: beer, wine and hard liquor Patient Tobacco Use Status: Never used Tobacco Tobacco use type: Cigar Smoked in Last 30 Days: Yes Advance Directives: Yes Advance Directives on File: Yes Advance Directives Date on File: 01/18/21 service: No Meds Allergies Allergy/AdvReac Type Severity Reaction Status Date / Time clozapine [From Clozaril] Allergy Unknown RASH Verified 08/02/21 09:52 hydroxyzine [From VISTARIL] Allergy Unknown UNKNOWN Verified 08/02/21 09:52 menthol [From Antihistamine] Allergy Unknown RASH Verified 08/02/21 09:52 nicotine [Nicotine] Allergy Unknown GUM- MAKES Verified 08/02/21 09:52 SICK TO STOMACH nut - unspecified [nut] Allergy Unknown SWELLING Verified 08/02/21 09:52 From Antihistamine Allergy Unknown RASH Uncoded 01/12/21 02:28 Active Medications: Current Medications Acetaminophen (Acetaminophen 325 Mg Tablet) 650 mg PO Q6H PRN PRN Reason: Pain, Mild (Pain Scale 1-3) Melatonin (Melatonin 3 Mg Tablet) 6 mg PO BEDTIME PRN PRN Reason: Insomnia Ondansetron HCl (Ondansetron Hcl 4 Mg/2 Ml Vial) 4 mg IVPUSH Q8H PRN PRN Reason: Nausea and Vomiting Pharmacy Consult (Consult Rx Perform Med Rec) 1 each MISCELLANE ONCE PRN PRN Reason: Consult order Sodium Chloride (0.9 % Sodium Chloride Flush 3 Ml Syringe) 3 ml IVFLUSH [facility] Home Medications Medication Instructions Recorded Confirmed Last Taken Type atorvastatin 80 mg tablet 1 tab PO BEDTIME 01/12/21 11/22/22 05/18/22 History bupropion HCl 150 mg tablet,12 hr 1 tab PO BID 01/12/21 11/22/22 05/19/22 09:00 History sustained-release clopidogrel 75 mg tablet 1 tab PO DAILY 01/12/21 11/22/22 05/19/22 09:00 History fluoxetine 40 mg capsule 1 cap PO DAILY 01/12/21 11/22/22 05/19/22 09:00 History isosorbide mononitrate 30 mg 1 tab PO DAILY 01/12/21 11/22/22 05/19/22 09:00 History tablet,extended release 24 hr lamotrigine 100 mg tablet 1 tab PO BID 01/12/21 11/22/22 05/19/22 09:00 History metoprolol tartrate 25 mg tablet 1 tab PO BID 01/12/21 11/22/22 05/19/22 09:00 History quetiapine 400 mg tablet,extended 1 tab PO BEDTIME 01/12/21 11/22/22 05/18/22 History release 24 hr trazodone 100 mg tablet 2 tab PO BEDTIME PRN Insomnia 01/12/21 11/22/22 05/18/22 History aspirin 81 mg tablet,delayed 1 tab PO DAILY 11/03/21 11/22/22 05/19/22 09:00 History release fluticasone propionate 50 1 spray intranasal BID PRN Allergy 11/03/21 11/22/22 Unknown History mcg/actuation nasal Symptoms spray,suspension fluoxetine 10 mg capsule 1 cap PO DAILY 05/19/22 11/22/22 05/19/22 09:00 History Physical Exam Vital Signs and Narrative: Vital Signs: Last Vital Signs Temp 98.7 F 11/22/22 12:27 Pulse 52 11/22/22 18:00 Resp 16 11/22/22 18:00 BP 185/80 H 11/22/22 18:00 Pulse Ox 98 11/22/22 18:00 O2 Del Method Room Air 11/22/22 18:00 O2 Flow Rate 2 11/22/22 15:27 BMI result Body Mass Index 31.2 Middle-aged male lying in bed in no distress Neck supple, no JVD Regular rate and rhythm, S1-S2 heard Regular breath sounds bilaterally, no wheezing or crackles appreciated Abdomen soft nontender, no guarding, no rigidity Patient is awake, alert and oriented to self, place, disoriented to time and person ; no focal motor deficit Results Labs 11/22/22 13:50 11/22/22 14:19 Labs: Laboratory Results - last 24 hr 11/22/22 11/22/22 11/22/22 13:50 13:50 14:19 MCV 88.5 MCH 29.8 MCHC 33.7 RDW 13.6 Plt Count 255 MPV 10.6 Immature Gran % (Auto) 0.5 H Neut % (Auto) 64.9 Lymph % (Auto) 25.4 [place] % (Auto) 6.3 Eos % (Auto) 1.8 Baso % (Auto) 1.1 Lymph # (Auto) 3.0 [place] # (Auto) 0.8 Eos # (Auto) 0.2 Baso # (Auto) 0.1 Abs Immat Gran (auto) 0.06 H Absolute Neuts (auto) 7.7 Absolute Nucleated RBC 0.000 Nucleated RBC % (auto) 0.0 PT 12.5 INR 1.0 Anion Gap 16 Estim Creat Clear Calc 55.6 Estimated GFR 43 Random Glucose 93 Calcium 9.2 Total Bilirubin 0.5 AST 21 ALT 21 Alkaline Phosphatase 101 Total Protein 6.8 Albumin 3.4 L Urine Color Urine Appearance Urine pH Ur Specific [place] Urine Protein Urine Glucose (UA) Urine Ketones Urine Blood Urine Nitrite Ur Leukocyte Esterase 11/22/22 18:11 MCV MCH MCHC RDW Plt Count MPV Immature Gran % (Auto) Neut % (Auto) Lymph % (Auto) [place] % (Auto) Eos % (Auto) Baso % (Auto) Lymph # (Auto) [place] # (Auto) Eos # (Auto) Baso # (Auto) Abs Immat Gran (auto) Absolute Neuts (auto) Absolute Nucleated RBC Nucleated RBC % (auto) PT INR Anion Gap Estim Creat Clear Calc Estimated GFR Random Glucose Calcium Total Bilirubin AST ALT Alkaline Phosphatase Total Protein Albumin Urine Color Yellow Urine Appearance Clear Urine pH 7.5 Ur Specific [place] 1.020 Urine Protein Trace Urine Glucose (UA) Negative Urine Ketones Negative Urine Blood Negative Urine Nitrite Negative Ur Leukocyte Esterase Negative Imaging Radiologist's Impressions: Impressions Head CT 11/22/22 13:35 IMPRESSION: No acute intracranial pathology. Shoulder X-Ray 11/22/22 13:40 IMPRESSION: Mild left acromioclavicular degenerative joint changes. No acute fracture. Assessment and Plan (1) Syncope: Status: Acute Plan This is a 67-year-old male with pertinent history of CAD status post stent, essential hypertension, history of CVA, COPD not on home oxygen, bipolar disorder who presents to the emergency department for evaluation of syncope. #. Syncope. Unclear etiology. Will admit for observation with cardiac monitoring. Obtain orthostatic vital signs. Consulting Cardiology to rule out a cardiogenic etiology in this patient who is poor historian. #. Elevated blood pressure. IV hydralazine given in the ER. Resume p.o. antihypertensives #. Coronary artery disease: Continue DAPT and high-intensity statin. Also on beta-lashell #. Bipolar disorder. Continue home mood stabilizers #. Chronic kidney disease. Creatinine at baseline. Avoid nephrotoxins Med rec pending DVT prophylaxis: Lovenox Full code Time Spent With Patient Time: Total time managing care of this patient today ____ minutes. Quality Stroke Does the patient have a stroke diagnosis?: No VTE Prior VTE?: No VTE Risk Level:: Medical - moderate - high VTE Device Contraindication: Treatment Not Indicated VTE Drug Contraindication: N/A - Med Ordered
--- NOTE | 2022-11-22 20:12 | PHA.MEDREC ---
Pharmacy Consult ? Medication Reconciliation Pharmacy has completed the medication reconciliation. Patient reported a nurse help him with his medicaitons. Patient does not know contact information for nurse. Patient then continue to say his nurse does not have the correct medication as his previous provider has . Patient state [facility] has the most up-to-date list. [facility] clinic is currently close. Med rec done by claim history. Patient was prescribed Augmenin byt ER provider yesterday, most likely has not been picked or start but I left on home list. Debbi Lemon, PharmD
[2022-11-22] MEDS: Enoxaparin Sodium 40 MG/0.4 ML SYRINGE SUBCUT (20:35)
[2022-11-22] MEDS: 0.9 % Sodium Chloride Flush 3 ML SYRINGE IVFLUSH (23:33)
[2022-11-23] VITALS (8 sets, daily range): BP systolic 108–166; BP diastolic 69–90; PULSE 52–75; RESP 16–18; TEMP 36.2–36.6; O2SAT 95–98
--- NOTE | 2022-11-23 | EEG_ITS ---
This is a 16-channel EEG with an EKG lead. The patient is reported awake and restless during the tracing. Background EEG rhythm is 7-8 hertz 5-20 microvolt posteriorly and lower amplitude fast anteriorly. Some lead and muscle artifacts are noted. Photic stimulation does not produce any significant abnormality. Hyperventilation is not performed. Cardiac lead does not reveal any significant abnormality. No epileptic discharges noted on this EEG. Otherwise, the EEG only showed some slowing. IMPRESSION: Generalized slowing with no evidence of seizure disorder. MD BALBINA Hightower/YIFAN / [id number]
[2022-11-23 06:50] LABS: MANUAL DIFF FLAG NO
[2022-11-23 06:53] LABS: Basophils Absolute Auto 0.1 X10*3/uL (0.0-0.2); Basophils Percent Auto 1.3 % (0-2); Eosinophils Absolute Auto 0.3 X10*3/uL (0.0-0.4); Eosinophils Percent Auto 3.1 % (0-4); Hematocrit 44.5 % (42.0-52.0); Hemoglobin 15.1 g/dl (14.0-18.0); Imm Gran Abs Auto 0.03 X10*3/uL (0.00-0.03); Imm Gran Pct Auto 0.3 % (0.0-0.4); Lymphocytes Absolute Auto 2.4 X10*3/uL (1.2-4.9); Lymphocytes Percent Auto 24.9 % (20-40); Mean Corpuscular HGB Conc 33.9 g/dl (31.0-36.0); Mean Corpuscular Volume 88.5 fL (80.0-98.0); Mean Platelet Volume 10.3 fL (9.4-12.4); Monocytes Absolute Auto 0.7 X10*3/uL (0.1-1.2); Monocytes Percent Auto 7.1 % (2-11); Neutrophils Absolute Auto 6.1 x10*3/uL (2.0-8.3); Neutrophils Percent Auto 63.3 % (45-73); Platelet Count 251 X10*3/uL (160-400); Red Blood Count 5.03 X10*6/uL (4.60-5.80); Red Cell Distribution Width 13.7 % (11.0-16.0); White Blood Count 9.6 X10*3/uL (4.8-10.8)
[2022-11-23 07:10] LABS: Anion Gap 15 (12-20); Blood Urea Nitrogen 16 mg/dL (9-16); Calcium 9.1 mg/dL (8.4-10.2); Carbon Dioxide 22 mmol/L (22-29); Chloride 108 mmol/L (96-108); Creatinine Clr Calc Pharmacy 64.8; Estimated Glomerular Filt Rate 51; Glucose Random 111 mg/dL (60-115); Potassium 3.8 mmol/L (3.3-5.1); Sodium 141 mmol/L (135-145)
[2022-11-23] MEDS: 0.9 % Sodium Chloride Flush 3 ML SYRINGE IVFLUSH ×2 (08:09→17:09)
[2022-11-23] MEDS: Metoprolol Tartrate 25 MG TABLET PO (08:18)
[2022-11-23] MEDS: QUEtiapine Fumarate 200 MG TABLET PO ×2 (08:18→20:37)
[2022-11-23] MEDS: Clopidogrel Bisulfate 75 MG TABLET PO (08:18)
[2022-11-23] MEDS: amLODIPine Besylate 10 MG TABLET PO (08:18)
[2022-11-23] MEDS: lamoTRIgine 100 MG TABLET PO ×2 (08:18→20:37)
[2022-11-23] MEDS: buPROPion HCl XL 300 MG TAB.ER.24H PO (08:18)
[2022-11-23] MEDS: FLUoxetine HCl 20 MG CAPSULE 40 MG PO (08:18)
[2022-11-23] MEDS: Isosorbide Mononitrate 30 MG TAB.ER.24H PO (08:18)
[2022-11-23] MEDS: FLUoxetine HCl 10 MG CAPSULE PO (08:18)
[2022-11-23] MEDS: Aspirin Enteric Coated 81 MG TABLET.DR PO (08:24)
--- NOTE | 2022-11-23 10:15 | P.CONCA_ITS ---
History of Present Illness History of Present Illness Date of Service: 11/23/22 Chief complaint: syncope Narrative: This is a cardiology consultation regarding syncopal episodes. History of coronary disease and prior PCI, hypertension, stroke, COPD, bipolar disorder. Multiple comorbidities overall. Current admission is because of falls. Variable history. In the H and P, it states he was a poor historian and could not remember the details. When I questioned him, he states that he was at [employer] and then he was screaming at someone and at that time, he somehow fell down. Something very nonspecific. He states he has again fallen down a few times over the last few weeks but difficult to really say how. He thinks he just falls down. Not clear if he is describing orthostasis or something rather psychiatric. No clear anginal-type symptoms. He was recently transferred to [facility]. At that time, underwent stress testing that was unremarkable. Extensive prior history of coronary disease but no new coronary issues at this time. Review of Systems Review of Systems: Yes all other systems are reviewed and are negative Constitutional: Constitutional: Reports as per HPI and Reports no additional constitutional complaints Eyes: Eyes: Reports as per HPI and Denies no additional eye complaints ENT: Denies system reviewed and no additional complaints, except as documented and Reports as per HPI Cardiovascular: Cardiovascular: Reports as per HPI, Reports no additional cardiovascular complaints, Denies acrocyanosis, Denies cool extremities, Denies chest pain, Denies leg edema, Denies lightheadedness, Reports Loss of Consciousness, Denies palpitations and Denies dyspnea Respiratory: Respiratory: Reports as per HPI, Denies no additional respiratory complaints and Denies dyspnea Gastrointestinal: Gastrointestinal: Reports as per HPI and Denies no additional gastrointestinal complaints Genitourinary: Genitourinary: Reports no additional male genitourinary complaints and Reports as per HPI Musculoskeletal: Musculoskeletal: Reports no additional musculoskeletal compla ints and Reports as per HPI Integumentary/Breasts: Skin/Breast: Reports system reviewed and no additional complaints, except as docu Neurologic: Reports system reviewed and no additional complaints, except as documented and Reports as per HPI Psychiatric: Psychiatric: Reports no additional psychiatric complaints and Reports as per HPI Endocrine: Endocrine: Reports no additional endocrine complaints, Reports as per HPI and Denies palpitations Hematologic/Lymphatic: Hematologic/Lymphatic: Reports no additional hematologic/lymphatic complaints and Reports as per HPI Allergic/Immunologic: Allergic/Immunologic: Reports no additional allergic/immunologic complaints and Reports as per HPI [facility] Past Medical History Medical History (Updated 11/23/22 @ 10:19 by Michael Littlejohn MD) Arthritis Bilateral carotid artery stenosis CAD (coronary artery disease) History of CVA (cerebrovascular accident) Hypertension Myocardial infarct Peripheral arterial disease Schizoaffective disorder Stroke due to stenosis of carotid artery Family History Family History Father Heart disease Surgical History Surgical History H/O heart artery stent No significant past surgical history Social History Social History Household Members: None Housing: Apartment Do you presently have visiting nurse or other home services: Yes Alcohol intake: current Alcohol intake frequency: holidays/special occasions only Alcohol type: beer, wine and hard liquor Patient Tobacco Use Status: Former Tobacco user Tobacco use type: Cigar Advance Directives Date on File: 01/18/21 service: No Meds Allergies Allergy/AdvReac Type Severity Reaction Status Date / Time clozapine [From Clozaril] Allergy Unknown RASH Verified 08/02/21 09:52 hydroxyzine [From VISTARIL] Allergy Unknown UNKNOWN Verified 08/02/21 09:52 menthol [From Antihistamine] Allergy Unknown RASH Verified 08/02/21 09:52 nicotine [Nicotine] Allergy Unknown GUM- MAKES Verified 08/02/21 09:52 SICK TO STOMACH nut - unspecified [nut] Allergy Unknown SWELLING Verified 08/02/21 09:52 From Antihistamine Allergy Unknown RASH Uncoded 01/12/21 02:28 Active Medications: Current Medications Acetaminophen (Acetaminophen 325 Mg Tablet) 650 mg PO Q6H PRN PRN Reason: Pain, Mild (Pain Scale 1-3) Amlodipine Besylate (Amlodipine Besylate 10 Mg Tablet) 10 mg PO DAILY [facility]; Protocol Last Admin: 11/23/22 08:18 Dose: 10 mg Aspirin (Aspirin Enteric Coated 81 Mg Tablet.) 81 mg PO DAILY [facility] Last Admin: 11/23/22 08:24 Dose: 81 mg Atorvastatin Calcium (Atorvastatin Calcium 80 Mg Tablet) 80 mg PO BEDTIME [facility] Bupropion HCl (Bupropion Hcl Xl 300 Mg Tab.Er.24h) 300 mg PO DAILY [facility] Last Admin: 11/23/22 08:18 Dose: 300 mg Clopidogrel Bisulfate (Clopidogrel Bisulfate 75 Mg Tablet) 75 mg PO DAILY [facility] Last Admin: 11/23/22 08:18 Dose: 75 mg Enoxaparin Sodium (Enoxaparin Sodium 40 Mg/0.4 Ml Syringe) 40 mg SUBCUT Q24H [facility] Last Admin: 11/22/22 20:35 Dose: 40 mg Fluoxetine HCl (Fluoxetine Hcl 20 Mg Capsule) 40 mg PO DAILY [facility] Last Admin: 11/23/22 08:18 Dose: 40 mg Fluoxetine HCl (Fluoxetine Hcl 10 Mg Capsule) 10 mg PO DAILY [facility] Last Admin: 11/23/22 08:18 Dose: 10 mg Isosorbide Mononitrate (Isosorbide Mononitrate 30 Mg Tab.Er.24h) 30 mg PO DAILY [facility]; Protocol Last Admin: 11/23/22 08:18 Dose: 30 mg Lamotrigine (Lamotrigine 100 Mg Tablet) 100 mg PO BID [facility] Last Admin: 11/23/22 08:18 Dose: 100 mg Melatonin (Melatonin 3 Mg Tablet) 6 mg PO BEDTIME PRN PRN Reason: Insomnia Metoprolol Tartrate (Metoprolol Tartrate 25 Mg Tablet) 25 mg PO BID [facility]; Protocol Last Admin: 11/23/22 08:18 Dose: 25 mg Ondansetron HCl (Ondansetron Hcl 4 Mg/2 Ml Vial) 4 mg IVPUSH Q8H PRN PRN Reason: Nausea and Vomiting Pharmacy Consult (Consult Rx Perform Med Rec) 1 each MISCELLANE ONCE PRN PRN Reason: Consult order Quetiapine Fumarate (Quetiapine Fumarate 200 Mg Tablet) 200 mg PO BID [facility] Last Admin: 11/23/22 08:18 Dose: 200 mg Sodium Chloride (0.9 % Sodium Chloride Flush 3 Ml Syringe) 3 ml IVFLUSH QSHIFT [facility] Last Admin: 11/23/22 08:09 Dose: 3 ml Trazodone HCl (Trazodone Hcl 100 Mg Tablet) 200 mg PO BEDTIME PRN PRN Reason: Insomnia Home Medications Medication Instructions Recorded Confirmed Last Taken Type atorvastatin 80 mg tablet 1 tab PO BEDTIME 01/12/21 11/22/22 05/18/22 History bupropion HCl 150 mg tablet,12 hr 1 tab PO BID 01/12/21 11/22/22 05/19/22 09:00 History sustained-release clopidogrel 75 mg tablet 1 tab PO DAILY 01/12/21 11/22/22 05/19/22 09:00 History fluoxetine 40 mg capsule 1 cap PO DAILY 01/12/21 11/22/22 05/19/22 09:00 History isosorbide mononitrate 30 mg 1 tab PO DAILY 01/12/21 11/22/22 05/19/22 09:00 History tablet,extended release 24 hr lamotrigine 100 mg tablet 1 tab PO BID 01/12/21 11/22/22 05/19/22 09:00 History metoprolol tartrate 25 mg tablet 1 tab PO BID 01/12/21 11/22/22 05/19/22 09:00 History quetiapine 400 mg tablet,extended 1 tab PO BEDTIME 01/12/21 11/22/22 05/18/22 History release 24 hr trazodone 100 mg tablet 2 tab PO BEDTIME PRN Insomnia 01/12/21 11/22/22 05/18/22 History aspirin 81 mg tablet,delayed 1 tab PO DAILY 11/03/21 11/22/22 05/19/22 09:00 History release fluticasone propionate 50 1 spray intranasal BID PRN Allergy 11/03/21 11/22/22 Unknown History mcg/actuation nasal Symptoms spray,suspension fluoxetine 10 mg capsule 1 cap PO DAILY 05/19/22 11/22/22 05/19/22 09:00 History Physical Exam Vital Signs: Vital Signs: Last Vital Signs Temp 97.8 F 11/23/22 03:01 Pulse 75 11/23/22 08:19 Resp 18 11/23/22 03:01 BP 112/72 11/23/22 08:19 Pulse Ox 98 11/23/22 03:01 O2 Del Method Room Air 11/22/22 23:24 O2 Flow Rate 2 11/22/22 15:27 BMI result Body Mass Index 31.2 Const: General: comfortable and no acute distress Orientation/consciousness: patient oriented x3 HEENT: Other: Unremarkable Head: Yes normal to inspection Neck: Neck: Yes normal visual inspection Chest: Chest palpation & inspection: normal inspection of the chest Resp: Auscultation: clear to auscultation bilaterally Cardio: Palpation: normal PMI Heart sounds: S1 normal heart sound present, S2 normal heart sound present, no gallops, no murmurs and no rubs GI: Palpation (GI): Soft to palpation Back/Spine/Pelvis: Other: unremarkable Skin: General skin exam: no rashes or lesions noted Neuro: General: patient oriented x3 Extrem: General: Yes normal to inspection Psych: Mental Status: mental status grossly normal Objective Labs and Meds 11/23/22 06:45 11/23/22 06:45 Lab results: Laboratory Results - last 24 hr 11/22/22 11/22/22 11/22/22 13:50 13:50 13:50 WBC 11.9 H RBC 4.70 Hgb 14.0 Hct 41.6 L MCV 88.5 MCH 29.8 MCHC 33.7 RDW 13.6 Plt Count 255 MPV 10.6 Immature Gran % (Auto) 0.5 H Neut % (Auto) 64.9 Lymph % (Auto) 25.4 [place] % (Auto) 6.3 Eos % (Auto) 1.8 Baso % (Auto) 1.1 Lymph # (Auto) 3.0 [place] # (Auto) 0.8 Eos # (Auto) 0.2 Baso # (Auto) 0.1 Abs Immat Gran (auto) 0.06 H Absolute Neuts (auto) 7.7 Absolute Nucleated RBC 0.000 Nucleated RBC % (auto) 0.0 PT 12.5 INR 1.0 Sodium Potassium Chloride Carbon Dioxide Anion Gap BUN Creatinine Estim Creat Clear Calc Estimated GFR Random Glucose Calcium Total Bilirubin AST ALT Alkaline Phosphatase Troponin I High Sens 3.1 Total Protein Albumin Urine Color Urine Appearance Urine pH Ur Specific [place] Urine Protein Urine Glucose (UA) Urine Ketones Urine Blood Urine Nitrite Ur Leukocyte Esterase 11/22/22 11/22/22 11/22/22 14:19 15:52 18:11 WBC RBC Hgb Hct MCV MCH MCHC RDW Plt Count MPV Immature Gran % (Auto) Neut % (Auto) Lymph % (Auto) [place] % (Auto) Eos % (Auto) Baso % (Auto) Lymph # (Auto) [place] # (Auto) Eos # (Auto) Baso # (Auto) Abs Immat Gran (auto) Absolute Neuts (auto) Absolute Nucleated RBC Nucleated RBC % (auto) PT INR Sodium 143 Potassium 3.6 Chloride 110 H Carbon Dioxide 21 L Anion Gap 16 BUN 20 H Creatinine 1.63 H Estim Creat Clear Calc 55.6 Estimated GFR 43 Random Glucose 93 Calcium 9.2 Total Bilirubin 0.5 AST 21 ALT 21 Alkaline Phosphatase 101 Troponin I High Sens 5.7 D Total Protein 6.8 Albumin 3.4 L Urine Color Yellow Urine Appearance Clear Urine pH 7.5 Ur Specific [place] 1.020 Urine Protein Trace Urine Glucose (UA) Negative Urine Ketones Negative Urine Blood Negative Urine Nitrite Negative Ur Leukocyte Esterase Negative 11/23/22 11/23/22 06:45 06:45 WBC 9.6 RBC 5.03 Hgb 15.1 Hct 44.5 MCV 88.5 MCH 30.0 MCHC 33.9 RDW 13.7 Plt Count 251 MPV 10.3 Immature Gran % (Auto) 0.3 Neut % (Auto) 63.3 Lymph % (Auto) 24.9 [place] % (Auto) 7.1 Eos % (Auto) 3.1 Baso % (Auto) 1.3 Lymph # (Auto) 2.4 [place] # (Auto) 0.7 Eos # (Auto) 0.3 Baso # (Auto) 0.1 Abs Immat Gran (auto) 0.03 Absolute Neuts (auto) 6.1 Absolute Nucleated RBC 0.000 Nucleated RBC % (auto) 0.0 PT INR Sodium 141 Potassium 3.8 Chloride 108 Carbon Dioxide 22 Anion Gap 15 BUN 16 Creatinine 1.40 Estim Creat Clear Calc 64.8 Estimated GFR 51 Random Glucose 111 Calcium 9.1 Total Bilirubin AST ALT Alkaline Phosphatase Troponin I High Sens Total Protein Albumin Urine Color Urine Appearance Urine pH Ur Specific [place] Urine Protein Urine Glucose (UA) Urine Ketones Urine Blood Urine Nitrite Ur Leukocyte Esterase ECG Interpretation: EKG with sinus bradycardia 56/Min; nonspecific ST-T changes. Imaging Radiologist's impression: Impressions Head CT 11/22/22 13:35 IMPRESSION: No acute intracranial pathology. Shoulder X-Ray 11/22/22 13:40 IMPRESSION: Mild left acromioclavicular degenerative joint changes. No acute fracture. Assessment and Plan (1) Syncope: Status: Acute (2) CAD (coronary artery disease): Status: Acute (3) Hypertension: Status: Inactive Plan High sensitivity troponin 3.1 and 5.7, well within normal limits. Prior echocardiogram with LVEF of 57%. Moderate diastolic dysfunction. Basal inferior hypokinesis. Left atrium severely dilated. Mild ascending aortic dilatation. For coronary anatomy, last catheterization 2020. Severe InStent restenoses of prior LAD stents. Chronic total occlusion of right coronary artery. Patent left PLV stent. Most recent perfusion imaging from August 2022 at [facility]-normal. Overall, unclear etiology for his episodes of falling down versus syncope. Can check orthostatics but overall, sounds very nonspecific. Do not see any clear evidence of hypotension. In fact several blood pressures since he came in are rather on the higher side. Telemetry shows mild sinus bradycardia in the 50s but nothing profound like severe bradycardia or pauses or heart blocks. We can probably keep on the monitor for 24 hours or so. Time Spent With Patient Time: Total time managing care of this patient today 75 minutes. This includes time spent in review of chart, laboratory data, imaging studies, review of telemetry, counseling patient, discussion with hospitalist, RN, doc umentation, coordination of care. Procedures Date of Service Date of Service: 11/23/22
--- NOTE | 2022-11-23 10:59 | P.PNIM_ITS ---
Subjective Subjective Date of Service: 11/23/22 Interval History: sleepy Physical Exam Vital Signs: Vital Signs: Last Vital Signs Temp 97.8 F 11/23/22 03:01 Pulse 75 11/23/22 08:19 Resp 18 11/23/22 03:01 BP 112/72 11/23/22 08:19 Pulse Ox 98 11/23/22 03:01 O2 Del Method Room Air 11/22/22 23:24 O2 Flow Rate 2 11/22/22 15:27 BMI result Body Mass Index 31.2 lethargic, trouble keeping awake oriented times 3 Objective Data Active Medications Acetaminophen (Acetaminophen 325 Mg Tablet) 650 mg PO Q6H PRN PRN Reason: Pain, Mild (Pain Scale 1-3) Amlodipine Besylate (Amlodipine Besylate 10 Mg Tablet) 10 mg PO DAILY [facility]; Protocol Last Admin: 11/23/22 08:18 Dose: 10 mg Documented By: DAREK Aspirin (Aspirin Enteric Coated 81 Mg Tablet.Dr) 81 mg PO DAILY [facility] Last Admin: 11/23/22 08:24 Dose: 81 mg Documented By: DAREK Atorvastatin Calcium (Atorvastatin Calcium 80 Mg Tablet) 80 mg PO BEDTIME [facility] Bupropion HCl (Bupropion Hcl Xl 300 Mg Tab.Er.24h) 300 mg PO DAILY [facility] Last Admin: 11/23/22 08:18 Dose: 300 mg Documented By: DAREK Clopidogrel Bisulfate (Clopidogrel Bisulfate 75 Mg Tablet) 75 mg PO DAILY [facility] Last Admin: 11/23/22 08:18 Dose: 75 mg Documented By: DAREK Enoxaparin Sodium (Enoxaparin Sodium 40 Mg/0.4 Ml Syringe) 40 mg SUBCUT Q24H [facility] Last Admin: 11/22/22 20:35 Dose: 40 mg Documented By: MARIA Fluoxetine HCl (Fluoxetine Hcl 20 Mg Capsule) 40 mg PO DAILY [facility] Last Admin: 11/23/22 08:18 Dose: 40 mg Documented By: DAREK Fluoxetine HCl (Fluoxetine Hcl 10 Mg Capsule) 10 mg PO DAILY [facility] Last Admin: 11/23/22 08:18 Dose: 10 mg Documented By: DAREK Isosorbide Mononitrate (Isosorbide Mononitrate 30 Mg Tab.Er.24h) 30 mg PO DAILY [facility]; Protocol Last Admin: 11/23/22 08:18 Dose: 30 mg Documented By: DAREK Lamotrigine (Lamotrigine 100 Mg Tablet) 100 mg PO BID [facility] Last Admin: 11/23/22 08:18 Dose: 100 mg Documented By: DAREK Melatonin (Melatonin 3 Mg Tablet) 6 mg PO BEDTIME PRN PRN Reason: Insomnia Metoprolol Tartrate (Metoprolol Tartrate 25 Mg Tablet) 25 mg PO BID [facility]; Protocol Last Admin: 11/23/22 08:18 Dose: 25 mg Documented By: DAREK Ondansetron HCl (Ondansetron Hcl 4 Mg/2 Ml Vial) 4 mg IVPUSH Q8H PRN PRN Reason: Nausea and Vomiting Pharmacy Consult (Consult Rx Perform Med Rec) 1 each MISCELLANE ONCE PRN PRN Reason: Consult order Quetiapine Fumarate (Quetiapine Fumarate 200 Mg Tablet) 200 mg PO BID [facility] Last Admin: 11/23/22 08:18 Dose: 200 mg Documented By: DAREK Sodium Chloride (0.9 % Sodium Chloride Flush 3 Ml Syringe) 3 ml IVFLUSH QSHIFT [facility] Last Admin: 11/23/22 08:09 Dose: 3 ml Documented By: DAREK Trazodone HCl (Trazodone Hcl 100 Mg Tablet) 200 mg PO BEDTIME PRN PRN Reason: Insomnia Labs 11/23/22 06:45 11/23/22 06:45 Labs: Laboratory Results - last 24 hr 11/22/22 11/22/22 11/22/22 13:50 13:50 14:19 MCV 88.5 MCH 29.8 MCHC 33.7 RDW 13.6 Plt Count 255 MPV 10.6 Immature Gran % (Auto) 0.5 H Neut % (Auto) 64.9 Lymph % (Auto) 25.4 [place] % (Auto) 6.3 Eos % (Auto) 1.8 Baso % (Auto) 1.1 Lymph # (Auto) 3.0 [place] # (Auto) 0.8 Eos # (Auto) 0.2 Baso # (Auto) 0.1 Abs Immat Gran (auto) 0.06 H Absolute Neuts (auto) 7.7 Absolute Nucleated RBC 0.000 Nucleated RBC % (auto) 0.0 PT 12.5 INR 1.0 Anion Gap 16 Estim Creat Clear Calc 55.6 Estimated GFR 43 Random Glucose 93 Calcium 9.2 Total Bilirubin 0.5 AST 21 ALT 21 Alkaline Phosphatase 101 Total Protein 6.8 Albumin 3.4 L Urine Color Urine Appearance Urine pH Ur Specific [place] Urine Protein Urine Glucose (UA) Urine Ketones Urine Blood Urine Nitrite Ur Leukocyte Esterase 11/22/22 11/23/22 11/23/22 18:11 06:45 06:45 MCV 88.5 MCH 30.0 MCHC 33.9 RDW 13.7 Plt Count 251 MPV 10.3 Immature Gran % (Auto) 0.3 Neut % (Auto) 63.3 Lymph % (Auto) 24.9 [place] % (Auto) 7.1 Eos % (Auto) 3.1 Baso % (Auto) 1.3 Lymph # (Auto) 2.4 [place] # (Auto) 0.7 Eos # (Auto) 0.3 Baso # (Auto) 0.1 Abs Immat Gran (auto) 0.03 Absolute Neuts (auto) 6.1 Absolute Nucleated RBC 0.000 Nucleated RBC % (auto) 0.0 PT INR Anion Gap 15 Estim Creat Clear Calc 64.8 Estimated GFR 51 Random Glucose 111 Calcium 9.1 Total Bilirubin AST ALT Alkaline Phosphatase Total Protein Albumin Urine Color Yellow Urine Appearance Clear Urine pH 7.5 Ur Specific [place] 1.020 Urine Protein Trace Urine Glucose (UA) Negative Urine Ketones Negative Urine Blood Negative Urine Nitrite Negative Ur Leukocyte Esterase Negative Assessment and Plan (1) CAD (coronary artery disease): Status: Acute Plan 67M PMH CAD, HTN, CVA, COPD, bipolar, presented with LOC episodes episodes of LOC differential broad includes cardiac event - unlikely, continue tele monitor orthostatic hypotension - also unlikely, monitor neuro: ?narcolepsy vs seizure neuro eval, check EEG bipolar buproprion, seroquel, lamictal htn amlodipine, lopressor CAD asa, statin, plavix history of CVA asa, statin ,plavix copd stable dvt prophylaxis - lovenox full code reason for continued hospitalization:working up LOC events Time Spent With Patient Time: Total time managing care of this patient today ____ minutes. Quality Stroke Does the patient have a stroke diagnosis?: No VTE Prior VTE?: No VTE Risk Level:: Medical - moderate - high VTE Device Contraindication: Treatment Not Indicated VTE Drug Contraindication: N/A - Med Ordered
--- NOTE | 2022-11-23 12:07 | P.CNNE_ITS ---
History of Present Illness Data of Consult Service Date: 11/23/22 Primary Care Provider: Balaji Mayo MD HPI Reason for consult: Syncope 67 years old man with history of occluded right internal carotid artery, moderately stenosed left internal carotid artery in the neck and also atherosclerotic internal carotid artery disease intracranially, and left-sided possible subclavian steal syndrome was in hospital with complaints of falling may be passing out. History was not clear and witnesses account was not available. There was no complaint of double vision numbness or paralysis. Review of Systems Review of Systems: No cardiac symptoms PMFSH Past Medical History Medical History (Updated 11/23/22 @ 10:19 by Michael Littlejohn MD) Arthritis Bilateral carotid artery stenosis CAD (coronary artery disease) History of CVA (cerebrovascular accident) Hypertension Myocardial infarct Peripheral arterial disease Schizoaffective disorder Stroke due to stenosis of carotid artery Family History Family History Father Heart disease Surgical History Surgical History H/O heart artery stent No significant past surgical history Social History Social History Household Members: None Housing: Apartment Do you presently have visiting nurse or other home services: Yes Alcohol intake: current Alcohol intake frequency: holidays/special occasions only Alcohol type: beer, wine and hard liquor Patient Tobacco Use Status: Former Tobacco user Tobacco use type: Cigar Advance Directives Date on File: 01/18/21 service: No Meds Allergies Allergy/AdvReac Type Severity Reaction Status Date / Time clozapine [From Clozaril] Allergy Unknown RASH Verified 08/02/21 09:52 hydroxyzine [From VISTARIL] Allergy Unknown UNKNOWN Verified 08/02/21 09:52 menthol [From Antihistamine] Allergy Unknown RASH Verified 08/02/21 09:52 nicotine [Nicotine] Allergy Unknown GUM- MAKES Verified 08/02/21 09:52 SICK TO STOMACH nut - unspecified [nut] Allergy Unknown SWELLING Verified 08/02/21 09:52 From Antihistamine Allergy Unknown RASH Uncoded 01/12/21 02:28 Active Medications: Current Medications Acetaminophen (Acetaminophen 325 Mg Tablet) 650 mg PO Q6H PRN PRN Reason: Pain, Mild (Pain Scale 1-3) Amlodipine Besylate (Amlodipine Besylate 10 Mg Tablet) 10 mg PO DAILY [facility]; Protocol Last Admin: 11/23/22 08:18 Dose: 10 mg Aspirin (Aspirin Enteric Coated 81 Mg Tablet.Dr) 81 mg PO DAILY [facility] Last Admin: 11/23/22 08:24 Dose: 81 mg Atorvastatin Calcium (Atorvastatin Calcium 80 Mg Tablet) 80 mg PO BEDTIME [facility] Bupropion HCl (Bupropion Hcl Xl 300 Mg Tab.Er.24h) 300 mg PO DAILY [facility] Last Admin: 11/23/22 08:18 Dose: 300 mg Clopidogrel Bisulfate (Clopidogrel Bisulfate 75 Mg Tablet) 75 mg PO DAILY [facility] Last Admin: 11/23/22 08:18 Dose: 75 mg Enoxaparin Sodium (Enoxaparin Sodium 40 Mg/0.4 Ml Syringe) 40 mg SUBCUT Q24H [facility] Last Admin: 11/22/22 20:35 Dose: 40 mg Fluoxetine HCl (Fluoxetine Hcl 20 Mg Capsule) 40 mg PO DAILY [facility] Last Admin: 11/23/22 08:18 Dose: 40 mg Fluoxetine HCl (Fluoxetine Hcl 10 Mg Capsule) 10 mg PO DAILY [facility] Last Admin: 11/23/22 08:18 Dose: 10 mg Isosorbide Mononitrate (Isosorbide Mononitrate 30 Mg Tab.Er.24h) 30 mg PO DAILY [facility]; Protocol Last Admin: 11/23/22 08:18 Dose: 30 mg Lamotrigine (Lamotrigine 100 Mg Tablet) 100 mg PO BID [facility] Last Admin: 11/23/22 08:18 Dose: 100 mg Melatonin (Melatonin 3 Mg Tablet) 6 mg PO BEDTIME PRN PRN Reason: Insomnia Metoprolol Tartrate (Metoprolol Tartrate 25 Mg Tablet) 25 mg PO BID [facility]; Protocol Last Admin: 11/23/22 08:18 Dose: 25 mg Ondansetron HCl (Ondansetron Hcl 4 Mg/2 Ml Vial) 4 mg IVPUSH Q8H PRN PRN Reason: Nausea and Vomiting Pharmacy Consult (Consult Rx Perform Med Rec) 1 each MISCELLANE ONCE PRN PRN Reason: Consult order Quetiapine Fumarate (Quetiapine Fumarate 200 Mg Tablet) 200 mg PO BID [facility] Last Admin: 11/23/22 08:18 Dose: 200 mg Sodium Chloride (0.9 % Sodium Chloride Flush 3 Ml Syringe) 3 ml IVFLUSH QSHIFT [facility] Last Admin: 11/23/22 08:09 Dose: 3 ml Trazodone HCl (Trazodone Hcl 100 Mg Tablet) 200 mg PO BEDTIME PRN PRN Reason: Insomnia Home Medications Medication Instructions Recorded Confirmed Last Taken Type atorvastatin 80 mg tablet 1 tab PO BEDTIME 01/12/21 11/22/22 05/18/22 History bupropion HCl 150 mg tablet,12 hr 1 tab PO BID 01/12/21 11/22/22 05/19/22 09:00 History sustained-release clopidogrel 75 mg tablet 1 tab PO DAILY 01/12/21 11/22/22 05/19/22 09:00 History fluoxetine 40 mg capsule 1 cap PO DAILY 01/12/21 11/22/22 05/19/22 09:00 History isosorbide mononitrate 30 mg 1 tab PO DAILY 01/12/21 11/22/22 05/19/22 09:00 History tablet,extended release 24 hr lamotrigine 100 mg tablet 1 tab PO BID 01/12/21 11/22/22 05/19/22 09:00 History metoprolol tartrate 25 mg tablet 1 tab PO BID 01/12/21 11/22/22 05/19/22 09:00 History quetiapine 400 mg tablet,extended 1 tab PO BEDTIME 01/12/21 11/22/22 05/18/22 History release 24 hr trazodone 100 mg tablet 2 tab PO BEDTIME PRN Insomnia 01/12/21 11/22/22 05/18/22 History aspirin 81 mg tablet,delayed 1 tab PO DAILY 11/03/21 11/22/22 05/19/22 09:00 History release fluticasone propionate 50 1 spray intranasal BID PRN Allergy 11/03/21 11/22/22 Unknown History mcg/actuation nasal Symptoms spray,suspension fluoxetine 10 mg capsule 1 cap PO DAILY 05/19/22 11/22/22 05/19/22 09:00 History Physical Exam Vital Signs: Vital Signs: Last Vital Signs Temp 97.3 F 11/23/22 11:58 Pulse 52 11/23/22 11:58 Resp 18 11/23/22 11:58 BP 122/71 11/23/22 11:58 Pulse Ox 96 11/23/22 11:58 O2 Del Method Room Air 11/23/22 11:58 O2 Flow Rate 2 11/22/22 15:27 BMI result Body Mass Index 31.2 Neuro: Other: At this time he is quite sleepy but we were able to wake him up. He talked briefly and followed commands. Face was symmetrical. There was no obvious face or arm weakness. He was able to get up from flat position but complained of significant catching back pain. He barely took 1 step. Speech was normal Results Labs 11/23/22 06:45 11/23/22 06:45 Labs: Short CBC 11/22/22 11/23/22 Range/Units 13:50 06:45 WBC 11.9 H 9.6 (4.8-10.8) X10*3/uL Hgb 14.0 15.1 (14.0-18.0) g/dl Hct 41.6 L 44.5 (42.0-52.0) % Plt Count 255 251 (160-400) X10*3/uL BMP 11/22/22 11/23/22 14:19 06:45 Sodium 143 141 Potassium 3.6 3.8 Chloride 110 H 108 Carbon Dioxide 21 L 22 BUN 20 H 16 Creatinine 1.63 H 1.40 Calcium 9.2 9.1 Liver Function 11/22/22 Range/Units 14:19 Total Bilirubin 0.5 (0.0-1.0) mg/dL AST 21 (5-37) U/L ALT 21 (0-40) U/L Alkaline Phosphatase 101 (39-117) U/L Albumin 3.4 L (3.5-5.0) g/dL Urine 11/22/22 Range/Units 18:11 Urine Color Yellow Urine Appearance Clear Urine pH 7.5 (5.0-9.0) Ur Specific [place] 1.020 (1.005-1.025) Urine Protein Trace (Neg-Trace) mg/dL Urine Glucose (UA) Negative (Negative) mg/dL Noncontrast head CT revealed moderately severe microvascular ischemic change Assessment and Plan (1) Syncope: Status: Acute 67 years old man with previous diagnosis of occluded right internal carotid artery, moderately severe stenosis of left extracranial carotid artery and also intracranial left internal carotid artery disease, possible left subclavian steal syndrome, uncontrolled hypertension and significant microvascular ischemic changes in the brain. All these features put him at risk for stroke and falling and also seizures. Exact etiology of present falling is unclear. I would recommend controlling vascular risk factors with control of blood pressure, and anti-platelet agent, and statin. He should be advised to use a walker to avoid any falls and hydrate himself well. There is no particular vascular surgery treatment for vascular lesions at this time though I recommend a carotid ultrasound to look at his left carotid. An EEG can be done to rule out any epileptic tendency Time Spent With Patient Time: Total time managing care of this patient today ____ minutes. Procedures Date of Service Date of Service: 11/23/22
--- NOTE | 2022-11-23 14:46 | MHC.CM.PN ---
[place] 11/23/22 Male 67 DX syncope Patient states that he fell walking down steps @ [facility]. He lives alone in an apartment. He is independent with all functional mobility. A copy of his HCP has been requested. DP Home self care. Pts brother will provide transport home.
[2022-11-23] MEDS: Enoxaparin Sodium 40 MG/0.4 ML SYRINGE SUBCUT (20:36)
[2022-11-23] MEDS: Atorvastatin Calcium 80 MG TABLET PO (20:37)
[2022-11-24] VITALS: BP 138/67; PULSE 60; RESP 16; TEMP 36; O2SAT 97
[2022-11-24 04:00] VITALS: BP 112/76; PULSE 66; RESP 16; TEMP 36.2; O2SAT 97
[2022-11-24 07:24] VITALS: BP 136/67; PULSE 64; RESP 18; TEMP 36.1; O2SAT 96
[2022-11-24] MEDS: Aspirin Enteric Coated 81 MG TABLET.DR PO (08:22)
[2022-11-24] MEDS: buPROPion HCl XL 300 MG TAB.ER.24H PO (08:22)
[2022-11-24] MEDS: FLUoxetine HCl 20 MG CAPSULE 40 MG PO (08:22)
[2022-11-24] MEDS: QUEtiapine Fumarate 200 MG TABLET PO (08:23)
[2022-11-24] MEDS: amLODIPine Besylate 10 MG TABLET PO (08:23)
[2022-11-24] MEDS: lamoTRIgine 100 MG TABLET PO (08:23)
[2022-11-24] MEDS: FLUoxetine HCl 10 MG CAPSULE PO (08:23)
[2022-11-24] MEDS: Clopidogrel Bisulfate 75 MG TABLET PO (08:23)
[2022-11-24] MEDS: Isosorbide Mononitrate 30 MG TAB.ER.24H PO (08:23)
[2022-11-24] MEDS: Metoprolol Tartrate 25 MG TABLET PO (08:23)
--- NOTE | 2022-11-24 11:38 | P.DS_ITS ---
DS: Providers Provider Date of Service: 11/24/22 Date of admission: 11/22/22 19:46 Primary care physician: Balaji Mayo MD Consults: 11/22/22 20:00 Consult to Cardiology [place]ine [place]ing [place] [facility] Reason for consultation: Syncope Has provider been notified: Yes 11/23/22 09:19 Consult to Neurology Routine Consulting Provider: [facility] Reason for consultation: Loc, seizure vs narcolepsy DS: Diagnosis Discharge Diagnosis (1) Syncope: Status: Acute DS: Summary Hospital Course Hospital Course: from initial hpi: 67-year-old male with pertinent history of CAD status post stent, essential hypertension, history of CVA, COPD not on home oxygen, bipolar disorder who presents to the emergency department for evaluation of syncope.? Patient is a poor historian and does not accurately remember the details.? He states that he is here because he passed out and fell multiple times over the last few weeks.? Patient states that it mostly happened while he was standing.? Unable to say if he was dizzy or lightheaded prior to the episode of syncope.? Sees he does have intermittent chest discomfort that has been ongoing for weeks.? No palpitat ions.? He was seen in the ER 1 day prior to presentation and was sent home with antibiotics for possible pneumonia.? He denies fever, chills, shortness of breath, abdominal pain, changes in urinary or bowel habits. hospital course: Patient was admitted for episodes of loss of consciousness. There is a broad differential. Unlikely cardiac. Telemetry was unremarkable. Was not orthostatic. More likely neurological or psychological. EEG was done and pending should be follow up outpatient. Patient does have bilateral carotid stenosis, will continue on dual antiplatelet and statin. No indication for surgery at this time. Doubt cause of symptoms. For bipolar he was continued on bupropion, Seroquel, Lamictal. Hypertension was continue amlodipine and Lopressor. Coronary disease was continued on dual platelet and statin. For history of CVA was continued on dual antiplatelet and statin. For COPD remains stable. Patient will be discharged home. Time Spent with Patient Time attestation: Total time managing care of this patient today ____ minutes. Discharge coordination time: Greater than 30 minutes Quality: Safe Use of Opioids Does Pt have an Active Cancer Diagnosis on the Problem List?: No Quality: Stroke Does the patient have a stroke diagnosis?: No Physical Exam Vital Signs: Vital Signs: Last Vital Signs Temp 97.0 F 11/24/22 07:24 Pulse 64 11/24/22 07:24 Resp 18 11/24/22 07:24 BP 136/67 11/24/22 07:24 Pulse Ox 96 11/24/22 07:24 O2 Del Method Room Air 11/24/22 07:24 O2 Flow Rate 2 11/22/22 15:27 BMI result Body Mass Index 31.2 Neuro: Other: At this time he is quite sleepy but we were able to wake him up. He talked briefly and followed commands. Face was symmetrical. There was no obvious face or arm weakness. He was able to get up from flat position but complained of significant catching back pain. He barely took 1 step. Speech was normal Discharge Plan Discharge Anticipated Discharge Date/Time: 11/24/22 11:33 Patient Disposition: Home, Self-Care Discharge Diagnosis: LOC Referrals: Simona Lopez MD [Physician] - 1 Week Balaji Mayo MD [Primary Care Provider] - 1 Week Discharge Medications: Continued fluoxetine 40 mg capsule 1 cap PO DAILY Rx Instructions: take with 10mg; total dose 50mg bupropion HCl 150 mg tablet sustained-release 12 hr 1 tab PO BID atorvastatin 80 mg tablet 1 tab PO BEDTIME isosorbide mononitrate 30 mg tablet extended release 24 hr 1 tab PO DAILY clopidogrel 75 mg tablet 1 tab PO DAILY trazodone 100 mg tablet 2 tab PO BEDTIME PRN (Reason: Insomnia) lamotrigine 100 mg tablet 1 tab PO BID metoprolol tartrate 25 mg tablet 1 tab PO BID quetiapine 400 mg tablet extended release 24 hr 1 tab PO BEDTIME fluoxetine 10 mg capsule 1 cap PO DAILY Rx Instructions: take with 40mg; total dose 50mg aspirin 81 mg tablet,delayed release (DR/EC) 1 tab PO DAILY fluticasone propionate 50 mcg/actuation Minter,Suspension 1 spray INTRANASAL BID PRN (Reason: Allergy Symptoms) Rx Instructions: administer into each nostril amlodipine 10 mg Tablet 10 mg PO DAILY Qty: 1 0RF Protocol: Hold for SBP< HOLD for SBP < : 90 docusate sodium 100 mg Capsule 100 mg PO DAILY PRN (Reason: Constipation) Qty: 1 0RF nitroglycerin 0.4 mg tablet, sublingual 0.4 mg sublingual Q5M PRN (Reason: chest pain) Qty: 1 0RF Rx Instructions: do not exceed 3 doses per episode Discontinued amoxicillin-pot clavulanate 875-125 mg tablet 1 tab PO BID 5 Days Qty: 10 0RF Discharge Orders: Discharge Order (Routine); Ordered 11/24/22 Ordered By: Jayy Crisostomo Diet: Advance to usual diet Activity on Discharge: As tolerated Stand Alone Forms: Patient Portal Discharge page Care Plan Goals: recovery Health Concerns: episodes of loss of conciousness Plan of Treatment: follow up eeg, follow up with neuro Assessment: see above
[2022-11-24 11:42] VITALS: BP 119/70; PULSE 62; RESP 18; TEMP 36.4; O2SAT 95
--- NOTE | 2022-11-24 12:18 | MHC.CM.PN ---
Addendum entered by Maddi Meza 11/24/22 13:36: CM HAS BEEN UNABLE TO REACH PTS [facility] WORK[facility] CM CALLED PTS BROTHER, ROSANA, TO DETERMINE IF A LYFT WOULD BE APPROPRIATE ROSANA REPORTS HE JUST FINISHED AT HIS DOCTORS APPT AND COULD BE HERE TO TRANSPORT PT IN 45-60 MINUTES PT AND RN AWARE Original Note: PT CLEARED TO IN HOME HE REPORTS HIS BROTHER IS UNABLE TO TRANSPORT HE ASKS CM TO CALL [facility] MESSAGE LEFT FOR [facility] WORK[facility], FRANKIE [phone], REQUESTING A RETURN CALL
== END 2022-11-24 14:38 | disposition home or self-care (01) ==
LOC: HO.ED 19:42 → HO.EDOVER 19:56 → HO.S3 22:13
PROVIDERS: Physician Assistant; Admitting Provider Student in an Organized Health Care Education/Training Program; Emergency Provider Emergency Medicine; PCP Family Medicine; Visit Provider Internal Medicine
DX: R55 Syncope and collapse (principal); I25.10 Atherosclerotic heart disease of native coronary artery without angina pectoris; R51.9 Headache, unspecified; M25.512 Pain in left shoulder; R00.1 Bradycardia, unspecified; R29.6 Repeated falls; I12.9 Hypertensive chronic kidney disease with stage 1 through stage 4 chronic kidney disease, or unspecified chronic kidney disease; N18.9 Chronic kidney disease, unspecified; J44.9 Chronic obstructive pulmonary disease, unspecified; Z79.899 Other long term (current) drug therapy; Z86.73 Personal history of transient ischemic attack (TIA), and cerebral infarction without residual deficits
CPT/HCPCS: 36415; 70450; 73030; 80048; 80053; 81003; 84484; 85025; 85610; 93005; 95816; 96372; 96374; 96376; 99221; 99285; J1650

== ENCOUNTER → 2022-11-22 12:58 | Outpatient (BNV) | payer MEDICARE, MEDICAID, SELFPAY | PROVIDERS: Admitting Provider Student in an Organized Health Care Education/Training Program; Emergency Provider Emergency Medicine; PCP Family Medicine; Visit Provider Internal Medicine | DX: R00.1 Bradycardia, unspecified (principal) | CPT/HCPCS: 93010 ==

== ENCOUNTER → 2022-11-22 19:46 | Outpatient (BNV) | payer MEDICARE, MEDICAID, SELFPAY | PROVIDERS: Admitting Provider Student in an Organized Health Care Education/Training Program; Emergency Provider Emergency Medicine; PCP Family Medicine; Visit Provider Internal Medicine | DX: R55 Syncope and collapse (principal); I25.10 Atherosclerotic heart disease of native coronary artery without angina pectoris; I10 Essential (primary) hypertension | CPT/HCPCS: 99223 ==

== ENCOUNTER → 2022-11-22 19:46 | Outpatient (BNV) | payer MEDICARE, MEDICAID, SELFPAY | PROVIDERS: Admitting Provider Student in an Organized Health Care Education/Training Program; Emergency Provider Emergency Medicine; PCP Family Medicine; Visit Provider Student in an Organized Health Care Education/Training Program | DX: R55 Syncope and collapse (principal) | CPT/HCPCS: 99222; 99232; 99239 ==

== ENCOUNTER 2023-01-26 15:12 | Emergency (ER) | payer MEDICARE, MEDICAID, SELFPAY ==
[2023-01-26 15:24] VITALS: BP 138/84; BP 156/73; PULSE 57; PULSE 66; RESP 16; TEMP 36.8; O2SAT 98; O2SAT 99; BMI 30.8
[2023-01-26 15:30] VITALS: PULSE 56
--- NOTE | 2023-01-26 15:40 | PC.NURSE ---
PT reporting coming from home 3 days of chest pain, sharp enough to be waking him up at night, had taken 2 nitros at home, along with EMS giving 2 nasal sprays. Pt reporting it helped bring him from 01/31 to 10/31. He is alert and oriented answering questions approp. IV placed by EMS Provider at bedside currently.
--- NOTE | 2023-01-26 15:44 | ED.CHESTPAIN ---
HPI - Chest Pain General Chief Complaint: Chest Pain Stated Complaint: chest pain x3days, extensive cardiac hx Time Seen by Provider: 01/26/23 15:22 History of Present Illness HPI narrative: Patient is a 67-year-old male presents today with having history of coronary artery disease. History of hypertension history of angina had multiple stents placed in the past presents today with having chest pain. Patient has proven coronary disease has a long history of the hypertension, hypercholesterolemia and smoking. The pain was mid chest it started approximately 2 hours ago been fairly constant. He was given nitroglycerin spray by the paramedics with moderate results pain went from 10-7. No leg swelling. No leg pain. Baseline is on Plavix. No history of blood clots in the past. No diaphoresis. No fever no chills no cough no congestion or upper respiratory symptoms. Related Data Home Medications Medication Instructions Recorded Confirmed atorvastatin 80 mg tablet 1 tab PO BEDTIME 01/12/21 11/22/22 bupropion HCl 150 mg tablet,12 hr 1 tab PO BID 01/12/21 11/22/22 sustained-release clopidogrel 75 mg tablet 1 tab PO DAILY 01/12/21 11/22/22 fluoxetine 40 mg capsule 1 cap PO DAILY 01/12/21 11/22/22 isosorbide mononitrate 30 mg 1 tab PO DAILY 01/12/21 11/22/22 tablet,extended release 24 hr lamotrigine 100 mg tablet 1 tab PO BID 01/12/21 11/22/22 metoprolol tartrate 25 mg tablet 1 tab PO BID 01/12/21 11/22/22 quetiapine 400 mg tablet,extended 1 tab PO BEDTIME 01/12/21 11/22/22 release 24 hr trazodone 100 mg tablet 2 tab PO BEDTIME PRN Insomnia 01/12/21 11/22/22 aspirin 81 mg tablet,delayed 1 tab PO DAILY 11/03/21 11/22/22 release fluticasone propionate 50 1 spray intranasal BID PRN Allergy 11/03/21 11/22/22 mcg/actuation nasal Symptoms spray,suspension fluoxetine 10 mg capsule 1 cap PO DAILY 05/19/22 11/22/22 Previous Rx's Medication Instructions Recorded amlodipine 10 mg tablet 10 mg PO DAILY #1 tab 09/12/22 docusate sodium 100 mg capsule 100 mg PO DAILY PRN Constipation 09/12/22 #1 cap nitroglycerin 0.4 mg sublingual 0.4 mg sublingual Q5M PRN chest 09/12/22 tablet pain #1 tab Allergies Allergy/AdvReac Type Severity Reaction Status Date / Time clozapine [From Clozaril] Allergy Unknown RASH Verified 01/26/23 15:28 hydroxyzine [From VISTARIL] Allergy Unknown UNKNOWN Verified 01/26/23 15:28 menthol [From Antihistamine] Allergy Unknown RASH Verified 01/26/23 15:28 nicotine [Nicotine] Allergy Unknown GUM- MAKES Verified 01/26/23 15:28 SICK TO STOMACH nut - unspecified [nut] Allergy Unknown SWELLING Verified 01/26/23 15:28 From Antihistamine Allergy Unknown RASH Uncoded 01/12/21 02:28 Review of Systems Review of Systems: Positive chest pain Yes all other systems are reviewed and are negative [facility] Past Medical History Attestation statement: The following information was validated with the patient. Medical History CAD (coronary artery disease) Schizoaffective disorder Peripheral arterial disease History of CVA (cerebrovascular accident) Bilateral carotid artery stenosis Stroke due to stenosis of carotid artery Arthritis Myocardial infarct Hypertension Surgical History H/O heart artery stent No significant past surgical history Family History Family History Father Heart disease Social History Social History Household Members: None Housing: Apartment Do you presently have visiting nurse or other home services: Yes Alcohol intake: current Alcohol intake frequency: holidays/special occasions only Alcohol type: beer, wine and hard liquor Patient Tobacco Use Status: Former Tobacco user Tobacco use type: Cigar Smoked in Last 30 Days: No Use of substances other than those prescribed or required for medical reasons: No Advance Directives: Yes Advance Directives on File: Yes Advance Directives Date on File: 01/18/21 service: No Physical Exam Vital Signs: Vital Signs: Last Vital Signs Temp 98.2 F 01/26/23 15:24 Pulse 78 01/26/23 16:02 Resp 16 01/26/23 15:24 BP 183/105 H 01/26/23 16:02 Pulse Ox 99 01/26/23 16:02 O2 Del Method Room Air 01/26/23 16:02 BMI result Body Mass Index 30.8 Appearance: Alert. Oriented X3. No acute distress. Eyes: Pupils equal, round and reactive to light. ENT: Pharynx normal. Neck: Normal inspection. Neck supple. No lymph nodes noted. No crepitus CVS: Normal heart rate and rhythm. Pulses normal. Normal S1 and S2 Respiratory: No respiratory distress. Breath sounds normal. No Wheezing. No rales Abdomen: Soft and nontender. No rigidity. No distention. good BS x4 Skin: Skin warm and dry. Normal skin color. Normal skin turgor. Extremities: No lower extremity edema. Neurovascular intact to all extremities. No Lacerations. No Rash Neuro: Oriented X 3. No motor deficit. No sensory deficit. Moving all extermities. No slurred speech Medications Administered Discontinued Medications Generic Name Dose Route Start Last Admin Trade Name Freq PRN Reason Stop Dose Admin Morphine Sulfate 4 mg 01/26/23 15:56 01/26/23 15:59 Morphine Sulfate 4 Mg/Ml Cartridge IVPUSH 01/26/23 15:57 4 mg ONCE ONE Administration Protocol Medical Decision Making Medical Decision Making MDM Narrative: My interpretation patient's EKG showed a sinus rhythm heart rate is 60 TX QRS QTC within normal limits there is no acute ST segment elevation noted review Prior echocardiogram with LVEF of 57%. Moderate diastolic dysfunction. Basal inferior hypokinesis. Left atrium severely dilated. Mild ascending aortic dilatation. For coronary anatomy, last catheterization 2020. Severe InStent restenoses of prior LAD stents. Chronic total occlusion of right coronary artery. Patent left PLV stent. Most recent perfusion imaging from August 2022 at [facility]-normal. Patient while in emergency appy department had a sudden episode of chest pain. A repeat EKG was done. It showed a sinus rhythm heart rate was 75 TX QRS QTC within normal limits there is significant ST segment depression over 84 V5 V6 this is new when compared the 1st EKG. First set of troponin came back negative. After reviewing patient's old record has a history of CAD has a history of complete right coronary occlusion has a history of severe in stent restenoses of previous LAD stents case was discussed with Cardiology. Dr. Littlejohn recommended for patient to be transferred to [facility]. Patient's case discussed with Dr. Martinez agree to plan of transfer. Additional nitroglycerin and heparin started. Metoprolol given. Patient's case discussed with him. Risk and benefit of transfer to explain. Patient states understanding. Differential Diagnosis Differential Diagnoses: The differential diagnosis associated with the presentation includes Angina, pneumonia, dissection, PE Admission/Observation Consideration of admission/observation: Escalation of care including admission/observation considered Consult Healthcare Provider Management of the patient was discussed with: Kosher Dietary Service Manager (Cardiology at [facility] Cardiology at [facility]) Lab Data MDM Lab Attestation statement: I reviewed the patient's lab results. 01/26/23 16:20 01/26/23 16:20 Labs: Lab Results 01/26/23 Range/Units 16:20 WBC 12.2 H (4.8-10.8) X10*3/uL RBC 4.62 (4.60-5.80) X10*6/uL Hgb 14.0 (14.0-18.0) g/dl Hct 41.0 L (42.0-52.0) % MCV 88.7 (80.0-98.0) fL MCH 30.3 (27.0-33.0) pg MCHC 34.1 (31.0-36.0) g/dl RDW 13.8 (11.0-16.0) % Plt Count 231 (160-400) X10*3/uL MPV 10.4 (9.4-12.4) fL Immature Gran % (Auto) 0.3 (0.0-0.4) % Neut % (Auto) 53.5 (45-73) % Lymph % (Auto) 33.3 (20-40) % [place] % (Auto) 8.1 (2-11) % Eos % (Auto) 3.8 (0-4) % Baso % (Auto) 1.0 (0-2) % Lymph # (Auto) 4.1 (1.2-4.9) X10*3/uL [place] # (Auto) 1.0 (0.1-1.2) X10*3/uL Eos # (Auto) 0.5 H (0.0-0.4) X10*3/uL Baso # (Auto) 0.1 (0.0-0.2) X10*3/uL Abs Immat Gran (auto) 0.04 H (0.00-0.03) X10*3/uL Absolute Neuts (auto) 6.5 (2.0-8.3) x10*3/uL Absolute Nucleated RBC 0.000 (0.0-0.012) X10*3/uL Nucleated RBC % (auto) 0.0 (0.0-0.2) /100WBC PT 11.8 (11.1-13.3) SEC INR 1.0 (0.9-1.1) APTT 29.9 D (26.0-36.4) SEC Sodium 141 (135-145) mmol/L Potassium 4.0 (3.3-5.1) mmol/L Chloride 108 (96-108) mmol/L Carbon Dioxide 20 L (22-29) mmol/L Anion Gap 17 (12-20) BUN 23 H (9-16) mg/dL Creatinine 1.52 H (0.5-1.4) mg/dL Estim Creat Clear Calc 59.3 Estimated GFR 46 Random Glucose 93 (60-115) mg/dL Calcium 9.5 (8.4-10.2) mg/dL Magnesium 2.1 (1.6-2.6) mg/dL Total Bilirubin 0.5 (0.0-1.0) mg/dL AST 22 (5-37) U/L ALT 22 (0-40) U/L Alkaline Phosphatase 107 (39-117) U/L Troponin I High Sens < 2.7 D (<3.5-35.0) ng/L B-Natriuretic Peptide 328 H (<100) pg/mL Total Protein 7.4 (6.5-8.0) g/dL Albumin 3.8 (3.5-5.0) g/dL Influenza Type A (PCR) NEGATIVE (Negative) Influenza Type B (PCR) NEGATIVE (Negative) RSV RNA Qual (PCR) NEGATIVE (Negative) SARS-CoV-2 RNA (RT-PCR) NEGATIVE (Negative) Independent Interpretation I performed an independent interpretation of an: EKG (Initial EKG showed a sinus rhythm heart rate is 60 TX QRS QTC within normal limits is no acute ST segment elevation. Second EKG showed sinus rhythm heart rate is 75 TX QRS QTC within normal limits there is significant ST segment depression of the V4 V5 V6.) and Plain X-Ray (Chest x-ray negative for pneumonia no pneumothorax) Radiology Impression Discussion of test interpretation with radiology: I have reviewed the radiologist's reading. Independent Historian long-term External Record Review External record reviewed: Inpatient record Chronic Conditions Patient?s care impacted by: Hypertension Proven coronary artery disease Critical Care Time Critical Care Time Critical Care Time: Yes Total Critical Care Time: 40 Attestation: I have personally provided 40 minutes of critical care time exclusive of time spent on separately billable procedures. Time includes review of lab data, radiology results, discussion with consultants, and monitoring for potential decompensation. Interventions were performed as documented above Discharge Plan Discharge Clinical Impression: Angina pectoris Patient Disposition: [facility] Transfer Details: Transferred to [facility] Prescriptions: No Action fluoxetine 40 mg capsule 1 cap PO DAILY Rx Instructions: take with 10mg; total dose 50mg bupropion HCl 150 mg tablet sustained-release 12 hr 1 tab PO BID atorvastatin 80 mg tablet 1 tab PO BEDTIME isosorbide mononitrate 30 mg tablet extended release 24 hr 1 tab PO DAILY clopidogrel 75 mg tablet 1 tab PO DAILY trazodone 100 mg tablet 2 tab PO BEDTIME PRN (Reason: Insomnia) lamotrigine 100 mg tablet 1 tab PO BID metoprolol tartrate 25 mg tablet 1 tab PO BID quetiapine 400 mg tablet extended release 24 hr 1 tab PO BEDTIME fluoxetine 10 mg capsule 1 cap PO DAILY Rx Instructions: take with 40mg; total dose 50mg aspirin 81 mg tablet,delayed release (DR/EC) 1 tab PO DAILY fluticasone propionate 50 mcg/actuation [place],Suspension 1 spray INTRANASAL BID PRN (Reason: Allergy Symptoms) Rx Instructions: administer into each nostril amlodipine 10 mg Tablet 10 mg PO DAILY Qty: 1 0RF Protocol: Hold for SBP< HOLD for SBP < : 90 docusate sodium 100 mg Capsule 100 mg PO DAILY PRN (Reason: Constipation) Qty: 1 0RF nitroglycerin 0.4 mg tablet, sublingual 0.4 mg sublingual Q5M PRN (Reason: chest pain) Qty: 1 0RF Rx Instructions: do not exceed 3 doses per episode
[2023-01-26 16:02] VITALS: BP 183/105; PULSE 78; O2SAT 99
--- NOTE | 2023-01-26 16:02 | PC.NURSE ---
vss and up to date aside from htn, nsr on the quality assurance monitor body, pt still c/o worsening chest pain - another ekg performed - dr. beckham aware. pt medicated per provider order. pt currently sweating and tearful at this time.
--- NOTE | 2023-01-26 16:12 | PC.NURSE ---
[facility] drawing labs at this time.
[2023-01-26 18:45] VITALS: BP 160/81; PULSE 71; RESP 16; TEMP 36.7; O2SAT 97
--- NOTE | 2023-01-26 18:59 | PC.NURSE ---
vss and up to date. nsr on the court recording monitor. pt medicated per provider order. nitro patch administered to left side of chest wall - documented w/ date, time & mnemonics. 900ml of urine emptied from urinal - documented in I&O section. report given to RN at [facility] prior to pt being transferred here. pt aware of plan of care at this time. pt restin comfortably in no apparent distress. respirations even and unlabored. call guadarrama placed within reach.
--- NOTE | 2023-01-26 19:05 | PC.NURSE ---
Report called to Viky RN on [facility] [id number] rm [id number], nurse to nurse report given, awaiting EMS transport at this time. [phone] [facility] contact number.
== END 2023-01-26 19:23 | disposition short-term general hospital (02) ==
PROVIDERS: Emergency Provider Emergency Medicine Emergency Medical Services; PCP Family Medicine
DX: I20.9 Angina pectoris, unspecified (principal); I10 Essential (primary) hypertension; Z20.822 Contact with and (suspected) exposure to COVID-19; E78.00 Pure hypercholesterolemia, unspecified; I25.2 Old myocardial infarction; Z86.73 Personal history of transient ischemic attack (TIA), and cerebral infarction without residual deficits; Z87.891 Personal history of nicotine dependence; Z79.899 Other long term (current) drug therapy; Z79.82 Long term (current) use of aspirin
CPT/HCPCS: 0241U; 71045; 80053; 83735; 83880; 84484; 85025; 85610; 85730; 93005; 96374; 96375; 99285; J2270

== ENCOUNTER 2023-02-27 17:46 | Emergency (ER) | payer MEDICARE, MEDICAID, SELFPAY ==
--- NOTE | ~2023-02-27 | XR_ITS ---
EXAMINATION: XR CHEST CLINICAL INFORMATION: Shortness of breath COMPARISON: Chest x-ray January 26, 2023 TECHNIQUE: Frontal portable view of the chest was obtained. 1844 hours FINDINGS: Lungs are clear. No pulmonary vascular congestion. There is no pleural effusion. The heart size is normal. The cardiac and mediastinal contours are normal. There are calcifications of the thoracic aorta. There are multilevel degenerative changes of dorsal spine. XR/XR chest 1V IMPRESSION: Unremarkable examination.
[2023-02-27 17:51] VITALS: BP 152/90; PULSE 92; O2SAT 96
[2023-02-27 17:53] VITALS: BP 122/84; PULSE 90; RESP 19; TEMP 36.9; O2SAT 94; BMI 31.5
--- NOTE | 2023-02-27 17:57 | ECG_ITS ---
Test Reason : chest pain Blood Pressure : / mmHG Vent. Rate : 079 BPM Atrial Rate : 079 BPM P-R Int : 154 ms QRS Dur : 086 ms QT Int : 394 ms P-R-T Axes : 025 -20 -19 degrees QTc Int : 451 ms Normal sinus rhythm Nonspecific ST abnormality Abnormal ECG When compared with ECG of 26-JAN-2023 15:55, ST less depressed in Anterolateral leads Referred By: Elysia Brown Electronically Signed By:DAVID MIR MD
--- NOTE | 2023-02-27 18:13 | ED.GENADULT ---
HPI - General Adult General Chief complaint: General Medical Stated complaint: WEAKNESS SOB Time Seen by Provider: 02/27/23 17:58 Source: patient Mode of arrival: EMS Limitations: no limitations History of Present Illness HPI narrative: Patient is 67 years old with history of coronary artery disease status post stent placement on 01/26/2023, schizoaffective disorder CVA arthritis hypertension lives alone just discharged from [facility] 3 days ago comes here as been feeling weak and confused noticed by visiting nurse today with foul swelling urine patient does not remember when he had food last time does not cook for a while lives alone, remembers month and year. Denies any cough or shortness of breath no fever or chills no abdominal pain no nausea vomiting Related Data Home Medications Medication Instructions Recorded Confirmed atorvastatin 80 mg tablet 1 tab PO BEDTIME 01/12/21 11/22/22 bupropion HCl 150 mg tablet,12 hr 1 tab PO BID 01/12/21 11/22/22 sustained-release clopidogrel 75 mg tablet 1 tab PO DAILY 01/12/21 11/22/22 fluoxetine 40 mg capsule 1 cap PO DAILY 01/12/21 11/22/22 isosorbide mononitrate 30 mg 1 tab PO DAILY 01/12/21 11/22/22 tablet,extended release 24 hr lamotrigine 100 mg tablet 1 tab PO BID 01/12/21 11/22/22 metoprolol tartrate 25 mg tablet 1 tab PO BID 01/12/21 11/22/22 quetiapine 400 mg tablet,extended 1 tab PO BEDTIME 01/12/21 11/22/22 release 24 hr trazodone 100 mg tablet 2 tab PO BEDTIME PRN Insomnia 01/12/21 11/22/22 aspirin 81 mg tablet,delayed 1 tab PO DAILY 11/03/21 11/22/22 release fluticasone propionate 50 1 spray intranasal BID PRN Allergy 11/03/21 11/22/22 mcg/actuation nasal Symptoms spray,suspension fluoxetine 10 mg capsule 1 cap PO DAILY 05/19/22 11/22/22 Previous Rx's Medication Instructions Recorded amlodipine 10 mg tablet 10 mg PO DAILY #1 tab 09/12/22 docusate sodium 100 mg capsule 100 mg PO DAILY PRN Constipation 09/12/22 #1 cap nitroglycerin 0.4 mg sublingual 0.4 mg sublingual Q5M PRN chest 09/12/22 tablet pain #1 tab Allergies Allergy/AdvReac Type Severity Reaction Status Date / Time clozapine [From Clozaril] Allergy Unknown RASH Verified 01/26/23 15:28 hydroxyzine [From VISTARIL] Allergy Unknown UNKNOWN Verified 01/26/23 15:28 menthol [From Antihistamine] Allergy Unknown RASH Verified 01/26/23 15:28 nicotine [Nicotine] Allergy Unknown GUM- MAKES Verified 01/26/23 15:28 SICK TO STOMACH nut - unspecified [nut] Allergy Unknown SWELLING Verified 01/26/23 15:28 From Antihistamine Allergy Unknown RASH Uncoded 01/12/21 02:28 Review of Systems Review of Systems: Yes all other systems are reviewed and are negative PMFSH Past Medical History Medical History CAD (coronary artery disease) Schizoaffective disorder Peripheral arterial disease History of CVA (cerebrovascular accident) Bilateral carotid artery stenosis Stroke due to stenosis of carotid artery Arthritis Myocardial infarct Hypertension Surgical History H/O heart artery stent No significant past surgical history Family History Family History Father Heart disease Social History Social History Household Members: None Housing: Apartment Do you presently have visiting nurse or other home services: Yes Alcohol intake: current Alcohol intake frequency: does not drink Alcohol type: beer, wine and hard liquor Patient Tobacco Use Status: Former Tobacco user Tobacco use type: Cigar Smoked in Last 30 Days: Yes Use of substances other than those prescribed or required for medical reasons: No Advance Directives: Yes Advance Directives on File: Yes Advance Directives Date on File: 01/18/21 service: No Physical Exam ED Vital Signs: Vital Signs - 24 hr 02/27/23 17:53 Temperature 98.4 F Pulse Rate 90 Respiratory Rate 19 Blood Pressure 122/84 Pulse Oximetry 94 Oxygen Delivery Method Room Air BMI result Body Mass Index 31.5 Appearance: Alert. Oriented X3. No acute distress. Unkept condition Eyes: PERRLA, No Nystagmus ENT: Pharynx normal. Oral Mucosa dry Neck: Normal inspection. Neck supple. CVS: Normal heart rate and rhythm. Pulses normal. Respiratory: No respiratory distress. Equal air entry bilateral, no wheezing/rales/rhonchi Abdomen: Soft and nontender. Bowel sounds are present, no mass palpable, no CVA tenderness Skin: Skin warm and dry. Normal skin color. Normal skin turgor. Extremities: No lower extremity edema. No calf tenderness Neuro: Oriented X 3. No motor deficit. No sensory deficit.No cerebellar signs , cranial nerves II-XII intact Medications Administered Discontinued Medications Generic Name Dose Route Start Last Admin Trade Name Freq PRN Reason Stop Dose Admin Sodium Chloride 1,000 mls @ 999 mls/hr 02/27/23 19:23 02/27/23 23:18 Ns IV 02/27/23 20:23 Infused .Q1H1M ONE Infusion Medical Decision Making Medical Decision Making [facility] Narrative: Patient with Kory was give IV fluids were given taking p.o. fluids patient feeling much better start patient Differential Diagnosis Differential Diagnoses: The differential diagnosis associated with the presentation includes Failure to thrive/KORY/depression Admission/Observation Consideration of admission/observation: Escalation of care including admission/observation considered Consult Healthcare Provider Management of the patient was discussed with: Hospitalist Lab Data [facility] Lab Attestation statement: I reviewed the patient's lab results. 02/27/23 18:37 02/27/23 18:37 Labs: Lab Results 02/27/23 02/27/23 Range/Units 18:37 22:27 WBC 10.5 (4.8-10.8) X10*3/uL RBC 4.58 L (4.60-5.80) X10*6/uL Hgb 13.7 L (14.0-18.0) g/dl Hct 41.5 L (42.0-52.0) % MCV 90.6 (80.0-98.0) fL MCH 29.9 (27.0-33.0) pg MCHC 33.0 (31.0-36.0) g/dl RDW 13.3 (11.0-16.0) % Plt Count 288 (160-400) X10*3/uL MPV 10.5 (9.4-12.4) fL Immature Gran % (Auto) 0.3 (0.0-0.4) % Neut % (Auto) 52.7 (45-73) % Lymph % (Auto) 32.7 (20-40) % [place] % (Auto) 9.1 (2-11) % Eos % (Auto) 4.2 H (0-4) % Baso % (Auto) 1.0 (0-2) % Lymph # (Auto) 3.4 (1.2-4.9) X10*3/uL [place] # (Auto) 1.0 (0.1-1.2) X10*3/uL Eos # (Auto) 0.4 (0.0-0.4) X10*3/uL Baso # (Auto) 0.1 (0.0-0.2) X10*3/uL Abs Immat Gran (auto) 0.03 (0.00-0.03) X10*3/uL Absolute Neuts (auto) 5.5 (2.0-8.3) x10*3/uL Absolute Nucleated RBC 0.000 (0.0-0.012) X10*3/uL Nucleated RBC % (auto) 0.0 (0.0-0.2) /100WBC PT 12.6 (11.1-13.3) SEC INR 1.0 (0.9-1.1) Sodium 141 (135-145) mmol/L Potassium 3.4 (3.3-5.1) mmol/L Chloride 107 (96-108) mmol/L Carbon Dioxide 25 (22-29) mmol/L Anion Gap 12 (12-20) BUN 15 (9-16) mg/dL Creatinine 1.94 H (0.5-1.4) mg/dL Estim Creat Clear Calc 47.0 Estimated GFR 35 Random Glucose 91 (60-115) mg/dL Lactic Acid 1.7 (0.5-2.0) mmol/L Calcium 9.3 (8.4-10.2) mg/dL Total Bilirubin 0.8 (0.0-1.0) mg/dL AST 23 (5-37) U/L ALT 17 (0-40) U/L Alkaline Phosphatase 124 H (39-117) U/L Troponin I High Sens 5.6 D (<3.5-35.0) ng/L B-Natriuretic Peptide 70 (<100) pg/mL Total Protein 7.4 (6.5-8.0) g/dL Albumin 3.7 (3.5-5.0) g/dL Urine Color Yellow Urine Appearance Clear Urine pH 8.0 (5.0-9.0) Ur Specific [place] 1.015 (1.005-1.025) Urine Protein Negative (Neg-Trace) mg/dL Urine Glucose (UA) Negative (Negative) mg/dL Urine Ketones Negative (Negative) mg/dL Urine Blood Negative (Negative) Urine Nitrite Negative (Negative) Ur Leukocyte Esterase Negative (Negative) COVID-19 (UCHE) Negative (Negative) COVID-19 Clin Com See Note Discharge Plan Discharge Clinical Impression: Acute on chronic kidney failure, Weakness Patient Disposition: Home, Self-Care Instructions: Acute Kidney Injury (DC), Chronic Kidney Disease (ED), Weakness (ED) Additional Instructions: Drink plenty of fluids and have your meals on time Follow your PCP in next 3- 4 days to recheck your kidney functions Your creatinine today was 1.94 Prescriptions: No Action fluoxetine 40 mg capsule 1 cap PO DAILY Rx Instructions: take with 10mg; total dose 50mg bupropion HCl 150 mg tablet sustained-release 12 hr 1 tab PO BID atorvastatin 80 mg tablet 1 tab PO BEDTIME isosorbide mononitrate 30 mg tablet extended release 24 hr 1 tab PO DAILY clopidogrel 75 mg tablet 1 tab PO DAILY trazodone 100 mg tablet 2 tab PO BEDTIME PRN (Reason: Insomnia) lamotrigine 100 mg tablet 1 tab PO BID metoprolol tartrate 25 mg tablet 1 tab PO BID quetiapine 400 mg tablet extended release 24 hr 1 tab PO BEDTIME fluoxetine 10 mg capsule 1 cap PO DAILY Rx Instructions: take with 40mg; total dose 50mg aspirin 81 mg tablet,delayed release (DR/EC) 1 tab PO DAILY fluticasone propionate 50 mcg/actuation [place],Suspension 1 spray INTRANASAL BID PRN (Reason: Allergy Symptoms) Rx Instructions: administer into each nostril amlodipine 10 mg Tablet 10 mg PO DAILY Qty: 1 0RF Protocol: Hold for SBP< HOLD for SBP < : 90 docusate sodium 100 mg Capsule 100 mg PO DAILY PRN (Reason: Constipation) Qty: 1 0RF nitroglycerin 0.4 mg tablet, sublingual 0.4 mg sublingual Q5M PRN (Reason: chest pain) Qty: 1 0RF Rx Instructions: do not exceed 3 doses per episode Interventions: ED Discharge Assessment Last Done: 02/28/23 01:07 Discharge Date/Time: 02/28/23 01:07
[2023-02-27 18:43] LABS: MANUAL DIFF FLAG NO
[2023-02-27 18:48] LABS: Basophils Absolute Auto 0.1 X10*3/uL (0.0-0.2); Eosinophils Absolute Auto 0.4 X10*3/uL (0.0-0.4); Eosinophils Percent Auto 4.2 % (0-4); Hematocrit 41.5 % (42.0-52.0); Hemoglobin 13.7 g/dl (14.0-18.0); Imm Gran Abs Auto 0.03 X10*3/uL (0.00-0.03); Imm Gran Pct Auto 0.3 % (0.0-0.4); Lymphocytes Absolute Auto 3.4 X10*3/uL (1.2-4.9); Lymphocytes Percent Auto 32.7 % (20-40); Mean Corpuscular Hemoglobin 29.9 pg (27.0-33.0); Mean Corpuscular Volume 90.6 fL (80.0-98.0); Mean Platelet Volume 10.5 fL (9.4-12.4); Monocytes Percent Auto 9.1 % (2-11); Neutrophils Absolute Auto 5.5 x10*3/uL (2.0-8.3); Neutrophils Percent Auto 52.7 % (45-73); Platelet Count 288 X10*3/uL (160-400); Red Blood Count 4.58 X10*6/uL (4.60-5.80); Red Cell Distribution Width 13.3 % (11.0-16.0); White Blood Count 10.5 X10*3/uL (4.8-10.8)
[2023-02-27 18:57] LABS: Lactic Acid 1.7 mmol/L (0.5-2.0)
[2023-02-27 19:01] LABS: COVID-19 Test Negative (Negative); IDNOW Serial# BCCEAD1C
[2023-02-27 19:04] LABS: Alanine Aminotransferase 17 U/L (0-40); Albumin Level 3.7 g/dL (3.5-5.0); Alkaline Phosphatase 124 U/L (39-117); Anion Gap 12 (12-20); Aspartate Amino Transferase 23 U/L (5-37); Bilirubin Total 0.8 mg/dL (0.0-1.0); Blood Urea Nitrogen 15 mg/dL (9-16); Calcium 9.3 mg/dL (8.4-10.2); Carbon Dioxide 25 mmol/L (22-29); Chloride 107 mmol/L (96-108); Estimated Glomerular Filt Rate 35; Glucose Random 91 mg/dL (60-115); Potassium 3.4 mmol/L (3.3-5.1); Sodium 141 mmol/L (135-145); Total Protein 7.4 g/dL (6.5-8.0)
[2023-02-27 19:07] LABS: B Type Natriuretic Peptide 70 pg/mL (<100)
[2023-02-27 19:10] LABS: Prothrombin Time 12.6 SEC (11.1-13.3); Troponin-I High Sensitivity 5.6 ng/L (<3.5-35.0)
[2023-02-27] MEDS: 0.9 % Sodium Chloride 1,000 ML 999 ML IV (20:02)
[2023-02-27 20:06] VITALS: BP 115/86; PULSE 60; RESP 20; TEMP 36.8
--- NOTE | 2023-02-27 20:08 | PC.NURSE ---
Pt unable to provide urine sample at this time.
[2023-02-27 22:32] LABS: Appearance Urine Clear; Color Urine Yellow; Glucose Urine UA Negative (Negative); Leukocyte Esterase Urine Negative (Negative); Nitrite Urine Negative (Negative); Specific Gravity - Urine 1.015 (1.005-1.025); Urine Blood Negative (Negative); Urine Ketones Negative (Negative); Urine Protein Negative (Neg-Trace)
[2023-02-27 23:07] VITALS: BP 115/77; PULSE 62; RESP 14; TEMP 36.8; O2SAT 98
--- NOTE | 2023-02-28 00:02 | PC.NURSE ---
Food and avis marcus provided per MD request. Pt called brother as pt will be discharged soon per MD.
== END 2023-02-28 01:07 | disposition home or self-care (01) ==
PROVIDERS: Student in an Organized Health Care Education/Training Program; Emergency Provider Internal Medicine; PCP Family Medicine
DX: I13.10 Hypertensive heart and chronic kidney disease without heart failure, with stage 1 through stage 4 chronic kidney disease, or unspecified chronic kidney disease (principal); N18.9 Chronic kidney disease, unspecified; R53.1 Weakness; R06.02 Shortness of breath; R07.89 Other chest pain; I25.10 Atherosclerotic heart disease of native coronary artery without angina pectoris; R41.0 Disorientation, unspecified; Z11.52 Encounter for screening for COVID-19; Z20.822 Contact with and (suspected) exposure to COVID-19; Z79.899 Other long term (current) drug therapy; Z87.891 Personal history of nicotine dependence
CPT/HCPCS: 36415; 71045; 80053; 81003; 83605; 83880; 84484; 85025; 85610; 87040; 87635; 93005; 96360; 96361; 99284

== ENCOUNTER 2023-02-28 12:01 | Emergency (ER) | payer MEDICARE, MEDICAID, SELFPAY ==
--- NOTE | 2023-02-28 12:09 | ECG_ITS ---
Test Reason : dyspnea Blood Pressure : / mmHG Vent. Rate : 066 BPM Atrial Rate : 066 BPM P-R Int : 150 ms QRS Dur : 092 ms QT Int : 426 ms P-R-T Axes : 044 -21 -30 degrees QTc Int : 446 ms Normal sinus rhythm Nonspecific T wave abnormality Abnormal ECG When compared with ECG of 27-FEB-2023 17:57, Nonspecific T wave abnormality now evident in Lateral leads Referred By: Malena Rosado Electronically Signed By:DAVID MIR MD
[2023-02-28 12:12] VITALS: BP 119/85; BP 141/100; PULSE 64; PULSE 69; RESP 16; TEMP 36.9; O2SAT 100; O2SAT 99; BMI 29.9
[2023-02-28 13:05] LABS: MANUAL DIFF FLAG NO
[2023-02-28 13:08] LABS: Basophils Absolute Auto 0.1 X10*3/uL (0.0-0.2); Basophils Percent Auto 1.1 % (0-2); Eosinophils Absolute Auto 0.4 X10*3/uL (0.0-0.4); Eosinophils Percent Auto 3.4 % (0-4); Hematocrit 39.6 % (42.0-52.0); Hemoglobin 13.4 g/dl (14.0-18.0); Imm Gran Abs Auto 0.04 X10*3/uL (0.00-0.03); Imm Gran Pct Auto 0.3 % (0.0-0.4); Lymphocytes Absolute Auto 3.6 X10*3/uL (1.2-4.9); Lymphocytes Percent Auto 30.6 % (20-40); Mean Corpuscular HGB Conc 33.8 g/dl (31.0-36.0); Mean Corpuscular Hemoglobin 30.4 pg (27.0-33.0); Mean Corpuscular Volume 89.8 fL (80.0-98.0); Mean Platelet Volume 10.5 fL (9.4-12.4); Monocytes Absolute Auto 1.1 X10*3/uL (0.1-1.2); Monocytes Percent Auto 9.3 % (2-11); Neutrophils Absolute Auto 6.6 x10*3/uL (2.0-8.3); Neutrophils Percent Auto 55.3 % (45-73); Platelet Count 264 X10*3/uL (160-400); Red Blood Count 4.41 X10*6/uL (4.60-5.80); Red Cell Distribution Width 13.5 % (11.0-16.0); White Blood Count 11.9 X10*3/uL (4.8-10.8)
[2023-02-28 13:10] LABS: Venous Blood Gas Refer to POC result
[2023-02-28 13:11] LABS: VBG Base Excess 2.2 mmol/L; VBG HCO3 24 mmol/L (22-26); VBG pCO2 29 mmHg; VBG pH 7.52 (7.32-7.43); VBG pO2 36 mmHg
[2023-02-28 13:12] LABS: Prothrombin Time 12.7 SEC (11.1-13.3)
[2023-02-28 13:15] LABS: Partial Thromboplastin Time 28.8 SEC (26.0-36.4)
[2023-02-28 13:23] LABS: Alanine Aminotransferase 17 U/L (0-40); Albumin Level 3.7 g/dL (3.5-5.0); Alkaline Phosphatase 116 U/L (39-117); Anion Gap 13 (12-20); Aspartate Amino Transferase 23 U/L (5-37); Blood Urea Nitrogen 16 mg/dL (9-16); Calcium 9.1 mg/dL (8.4-10.2); Carbon Dioxide 22 mmol/L (22-29); Chloride 109 mmol/L (96-108); Creatinine Clr Calc Pharmacy 45.1; Estimated Glomerular Filt Rate 34; Glucose Random 98 mg/dL (60-115); Magnesium 1.8 mg/dL (1.6-2.6); Potassium 3.5 mmol/L (3.3-5.1); Sodium 140 mmol/L (135-145); Total Protein 7.2 g/dL (6.5-8.0)
[2023-02-28 13:28] LABS: B Type Natriuretic Peptide 63 pg/mL (<100); Troponin-I High Sensitivity 6.4 ng/L (<3.5-35.0)
[2023-02-28 13:46] LABS: Influenza A PCR NEGATIVE (Negative); Influenza B PCR NEGATIVE (Negative); Resp Syncy Virus RNA Qual PCR NEGATIVE (Negative); SARS COV2 PCR INHOUSE NEGATIVE (Negative)
--- NOTE | 2023-02-28 15:20 | ED.SOB ---
HPI - SOB/Dyspnea General Chief Complaint: Dyspnea Stated Complaint: WEAK,CHRONIC SOB PER EMS Time Seen by Provider: 02/28/23 14:02 Source: patient and EMS Mode of arrival: EMS History of Present Illness HPI Narrative: 67-year-old male with persistent presentation for chronic shortness of breath but removed his oxygen and is not noted to be hypoxic in the emergency room. Patient states he did not even want to come into the hospital but he was sent in regardless. Related Data Home Medications Medication Instructions Recorded Confirmed atorvastatin 80 mg tablet 1 tab PO BEDTIME 01/12/21 11/22/22 bupropion HCl 150 mg tablet,12 hr 1 tab PO BID 01/12/21 11/22/22 sustained-release clopidogrel 75 mg tablet 1 tab PO DAILY 01/12/21 11/22/22 fluoxetine 40 mg capsule 1 cap PO DAILY 01/12/21 11/22/22 isosorbide mononitrate 30 mg 1 tab PO DAILY 01/12/21 11/22/22 tablet,extended release 24 hr lamotrigine 100 mg tablet 1 tab PO BID 01/12/21 11/22/22 metoprolol tartrate 25 mg tablet 1 tab PO BID 01/12/21 11/22/22 quetiapine 400 mg tablet,extended 1 tab PO BEDTIME 01/12/21 11/22/22 release 24 hr trazodone 100 mg tablet 2 tab PO BEDTIME PRN Insomnia 01/12/21 11/22/22 aspirin 81 mg tablet,delayed 1 tab PO DAILY 11/03/21 11/22/22 release fluticasone propionate 50 1 spray intranasal BID PRN Allergy 11/03/21 11/22/22 mcg/actuation nasal Symptoms spray,suspension fluoxetine 10 mg capsule 1 cap PO DAILY 05/19/22 11/22/22 Previous Rx's Medication Instructions Recorded amlodipine 10 mg tablet 10 mg PO DAILY #1 tab 09/12/22 docusate sodium 100 mg capsule 100 mg PO DAILY PRN Constipation 09/12/22 #1 cap nitroglycerin 0.4 mg sublingual 0.4 mg sublingual Q5M PRN chest 09/12/22 tablet pain #1 tab Allergies Allergy/AdvReac Type Severity Reaction Status Date / Time clozapine [From Clozaril] Allergy Unknown RASH Verified 01/26/23 15:28 hydroxyzine [From VISTARIL] Allergy Unknown UNKNOWN Verified 01/26/23 15:28 menthol [From Antihistamine] Allergy Unknown RASH Verified 01/26/23 15:28 nicotine [Nicotine] Allergy Unknown GUM- MAKES Verified 01/26/23 15:28 SICK TO STOMACH nut - unspecified [nut] Allergy Unknown SWELLING Verified 01/26/23 15:28 From Antihistamine Allergy Unknown RASH Uncoded 01/12/21 02:28 Review of Systems Review of Systems: Pertinent positives and negatives as stated in HPI PMFSH Past Medical History Source: nursing notes reviewed Medical History CAD (coronary artery disease) Schizoaffective disorder Peripheral arterial disease History of CVA (cerebrovascular accident) Bilateral carotid artery stenosis Stroke due to stenosis of carotid artery Arthritis Myocardial infarct Hypertension Surgical History H/O heart artery stent No significant past surgical history Family History Family History Father Heart disease Social History Social History Household Members: None Housing: Apartment Do you presently have visiting nurse or other home services: Yes Alcohol intake: current Alcohol intake frequency: does not drink Alcohol type: beer, wine and hard liquor Patient Tobacco Use Status: Former Tobacco user Tobacco use type: Cigar Smoked in Last 30 Days: Yes Use of substances other than those prescribed or required for medical reasons: No Advance Directives: Yes Advance Directives on File: Yes Advance Directives Date on File: 01/18/21 service: No Physical Exam Vital Signs: Vital Signs: Last Vital Signs Temp 98.4 F 02/28/23 12:12 Pulse 64 02/28/23 12:12 Resp 16 02/28/23 12:12 BP 119/85 02/28/23 12:12 Pulse Ox 99 02/28/23 12:12 O2 Del Method Room Air 02/28/23 12:12 BMI result Body Mass Index 29.9 VITAL SIGNS: Reviewed. GENERAL: Well developed, well nourished, in no acute distress. HEAD: Normocephalic/atraumatic EYES: PERRLA, EOMI EARS: Ext canals without abnormality NOSE: Nares patent bilateral OROPHARYNX: no oral lesions noted, posterior pharynx clear NECK: Supple, no adenopathy LUNGS: Normal breath sounds. No adventitious sounds or accessory muscle use. SpO2<99> CARDIOVASCULAR: Regular rate and rhythm without noted murmurs, no JVD or lower extremity edema. ABDOMEN: Soft, non-tender, non-distended with bowel sounds. MUSCULOSKELETAL: No tenderness, deformities, or effusions noted on gross inspection. EXTREMITIES: No cyanosis, clubbing or edema. SKIN: Inspection of the skin reveals no rashes NEUROLOGIC: Alert and oriented x 2. Strength and sensation to light touch were grossly intact x 4. Medical Decision Making Medical Decision Making [facility] Narrative: 67-year-old male who presents via EMS with chronic persistent complaints of shortness of breath and has been worked up several times for this complaint, chest and belly exams are without acute findings and there are no focal deficits. I reviewed all investigations as well as reviewing previous visits and hematologic indices demonstrated mild leukocytosis without left shift and as mentioned previously no complaints regarding an infectious etiology, patient has a normocytic anemia that is chronically stable and there is no thrombocytopenia. Coagulation studies are within normal limits. VBG does not demonstrate respiratory acidosis and there is no evidence of hypercapnia. Chemistry indices demonstrate a chronically stable CKD. Otherwise, there is no evidence of electrolyte or liver enzyme derangement. I reviewed the urinalysis from last night which is negative. Viral testing is negative. My interpretation is that patient may have baseline complaints that do not necessarily correlate with clinical findings. Patient is otherwise discharged back to the facility and request is in place for the over seeing provider to evaluate the patient prior to transfer to the hospital. Differential Diagnosis Differential Diagnoses: The differential diagnosis associated with the presentation includes Please see the discussion above Admission/Observation Consideration of admission/observation: Escalation of care including admission/observation considered Please see the discussion above Lab Data MDM Lab Attestation statement: I reviewed the patient's lab results. Please see the discussion above 02/28/23 12:58 02/28/23 12:58 Labs: Lab Results 02/28/23 02/28/23 Range/Units 12:58 13:04 WBC 11.9 H (4.8-10.8) X10*3/uL RBC 4.41 L (4.60-5.80) X10*6/uL Hgb 13.4 L (14.0-18.0) g/dl Hct 39.6 L (42.0-52.0) % MCV 89.8 (80.0-98.0) fL MCH 30.4 (27.0-33.0) pg MCHC 33.8 (31.0-36.0) g/dl RDW 13.5 (11.0-16.0) % Plt Count 264 (160-400) X10*3/uL MPV 10.5 (9.4-12.4) fL Immature Gran % (Auto) 0.3 (0.0-0.4) % Neut % (Auto) 55.3 (45-73) % Lymph % (Auto) 30.6 (20-40) % [place] % (Auto) 9.3 (2-11) % Eos % (Auto) 3.4 (0-4) % Baso % (Auto) 1.1 (0-2) % Lymph # (Auto) 3.6 (1.2-4.9) X10*3/uL [place] # (Auto) 1.1 (0.1-1.2) X10*3/uL Eos # (Auto) 0.4 (0.0-0.4) X10*3/uL Baso # (Auto) 0.1 (0.0-0.2) X10*3/uL Abs Immat Gran (auto) 0.04 H (0.00-0.03) X10*3/uL Absolute Neuts (auto) 6.6 (2.0-8.3) x10*3/uL Absolute Nucleated RBC 0.000 (0.0-0.012) X10*3/uL Nucleated RBC % (auto) 0.0 (0.0-0.2) /100WBC PT 12.7 (11.1-13.3) SEC INR 1.0 (0.9-1.1) APTT 28.8 (26.0-36.4) SEC VBG pH 7.52 H (7.32-7.43) VBG pCO2 29 mmHg VBG pO2 36 mmHg VBG HCO3 24 (22-26) mmol/L VBG O2 Saturation 63.0 % VBG Base Excess 2.2 mmol/L Sodium 140 (135-145) mmol/L Potassium 3.5 (3.3-5.1) mmol/L Chloride 109 H (96-108) mmol/L Carbon Dioxide 22 (22-29) mmol/L Anion Gap 13 (12-20) BUN 16 (9-16) mg/dL Creatinine 1.97 H (0.5-1.4) mg/dL Estim Creat Clear Calc 45.1 Estimated GFR 34 Random Glucose 98 (60-115) mg/dL Calcium 9.1 (8.4-10.2) mg/dL Magnesium 1.8 (1.6-2.6) mg/dL Total Bilirubin 1.0 (0.0-1.0) mg/dL AST 23 (5-37) U/L ALT 17 (0-40) U/L Alkaline Phosphatase 116 (39-117) U/L Total Creatine Kinase 194 H (38-174) U/L Troponin I High Sens 6.4 (<3.5-35.0) ng/L B-Natriuretic Peptide 63 (<100) pg/mL Total Protein 7.2 (6.5-8.0) g/dL Albumin 3.7 (3.5-5.0) g/dL Influenza Type A (PCR) NEGATIVE (Negative) Influenza Type B (PCR) NEGATIVE (Negative) RSV RNA Qual (PCR) NEGATIVE (Negative) SARS-CoV-2 RNA (RT-PCR) NEGATIVE (Negative) Independent Interpretation I performed an independent interpretation of an: EKG Interpretation: Normal sinus rhythm, HR-66, no STEMI, IN/QRS/QTC is within normal limits. Radiology Impression Discussion of test interpretation with radiology: I have reviewed the radiologist's reading. Radiologist Impression: Please see the discussion above External Record Review External record reviewed: Outpatient record, Prior outpatient labs and Prior outpatient radiology Discharge Plan Discharge Clinical Impression: Chronic shortness of breath Patient Disposition: Xfer Other Instructions: Shortness of Breath (ED) Additional Instructions: 1. Resume all home medications as prescribed. 2. Unless patient is unstable, hypoxic/hypotensive, please have the over seeing provider evaluate the patient briefly prior to transportation to the emergency room. Return to the ER for any worsening or new symptoms. Prescriptions: No Action fluoxetine 40 mg capsule 1 cap PO DAILY Rx Instructions: take with 10mg; total dose 50mg bupropion HCl 150 mg tablet sustained-release 12 hr 1 tab PO BID atorvastatin 80 mg tablet 1 tab PO BEDTIME isosorbide mononitrate 30 mg tablet extended release 24 hr 1 tab PO DAILY clopidogrel 75 mg tablet 1 tab PO DAILY trazodone 100 mg tablet 2 tab PO BEDTIME PRN (Reason: Insomnia) lamotrigine 100 mg tablet 1 tab PO BID metoprolol tartrate 25 mg tablet 1 tab PO BID quetiapine 400 mg tablet extended release 24 hr 1 tab PO BEDTIME fluoxetine 10 mg capsule 1 cap PO DAILY Rx Instructions: take with 40mg; total dose 50mg aspirin 81 mg tablet,delayed release (DR/EC) 1 tab PO DAILY fluticasone propionate 50 mcg/actuation [place],Suspension 1 spray INTRANASAL BID PRN (Reason: Allergy Symptoms) Rx Instructions: administer into each nostril amlodipine 10 mg Tablet 10 mg PO DAILY Qty: 1 0RF Protocol: Hold for SBP< HOLD for SBP < : 90 docusate sodium 100 mg Capsule 100 mg PO DAILY PRN (Reason: Constipation) Qty: 1 0RF nitroglycerin 0.4 mg tablet, sublingual 0.4 mg sublingual Q5M PRN (Reason: chest pain) Qty: 1 0RF Rx Instructions: do not exceed 3 doses per episode Referrals: Balaji Mayo MD [Primary Care Provider] -
--- NOTE | 2023-02-28 15:45 | PC.NURSE ---
patient told he was d/c, this RN called his brother kwasi for ride home, patient became verbally aggressive, did not wait for his discharge paperwork. ambulated with steady gait out of patient room
== END 2023-02-28 14:45 | disposition home or self-care (01) ==
PROVIDERS: Physician Assistant Medical; Emergency Provider Student in an Organized Health Care Education/Training Program; PCP Family Medicine
DX: R06.02 Shortness of breath (principal); Z20.822 Contact with and (suspected) exposure to COVID-19; Z20.828 Contact with and (suspected) exposure to other viral communicable diseases; I10 Essential (primary) hypertension; Z86.73 Personal history of transient ischemic attack (TIA), and cerebral infarction without residual deficits; Z87.891 Personal history of nicotine dependence
CPT/HCPCS: 0241U; 36415; 80053; 82550; 82803; 83735; 83880; 84484; 85025; 85610; 85730; 93005; 99283; 99284

== ENCOUNTER 2023-03-29 13:07 | Inpatient (IN) | payer MEDICARE, OTHER, SELFPAY ==
--- NOTE | ~2023-03-29 | MR_ITS ---
EXAMINATION: MRI OF THE BRAIN WITHOUT CONTRAST CLINICAL INFORMATION: Stroke. COMPARISON: CT scan of the head 03/29/2023. TECHNIQUE: MRI of the brain was obtained using routine sequences without contrast. FINDINGS: There are areas of increased diffusion signal with isointense to slightly hyperintense ADC map signal and with corresponding hyperintense T2/FLAIR signal in the right frontoparietal region, consistent with acute/subacute infarcts. Smaller foci are seen in the left anterior centrum semiovale and in the left caudate head. There is no evidence of hemorrhage in these regions. No mass effect or midline shift is seen. The ventricles and sulci are commensurately prominent consistent with diffuse volume loss. There is a cavum septum pellucidum. There are extensive areas of increased T2 and FLAIR signal in the periventricular and subcortical white matter, consistent with chronic microvascular ischemic changes. There are areas of gliosis in the right frontal, frontoparietal and parieto-occipital regions, consistent with sequelae of chronic infarcts. No extra-axial fluid collections are seen. The brainstem and cerebellum are normal. No pathologic magnetic susceptibility artifact is identified elsewhere on the gradient refocused acquisition. The craniovertebral junction, marrow signal, and midline structures are normal. The major intracranial flow-voids at the level of the [place] are preserved. The dural venous sinus flow-voids are maintained. There has been a right lens extraction. The mastoid air cells and paranasal sinuses are well-aerated. MR/MR head/brain wo con IMPRESSION: 1. There are areas of acute/subacute infarction in the right frontoparietal region, right parieto-occipital region, in the left centrum semiovale and in the left caudate head. There is no evidence of hemorrhagic transformation. 2. There is diffuse volume loss and there are chronic microvascular ischemic changes and sequelae of chronic infarcts.
--- NOTE | ~2023-03-29 | CT_ITS ---
EXAMINATION: CT HEAD WITHOUT CONTRAST CLINICAL INFORMATION: Weakness. COMPARISON: CT head 11/22/2022. TECHNIQUE: Contiguous axial imaging was performed from the skull base to vertex without intravenous administration of contrast. This CT examination was performed using dose optimization techniques as appropriate, variously including the following: *Automated exposure control *Adjustment of mA and/or kV according to patient size (this includes techniques or standardized protocols for targeted exams where dose is matched to indication/reason for exam; i.e. extremities or head) *Use of iterative reconstruction technique DLP: 682 mGy-cm FINDINGS: New small approximately 0.8 cm hypodensity in the left frontal lobe (2:30). New hypodensity in the right frontal lobe anterior to the central sulcus (2:32). New very subtle hypodensity in the high right parietal lobe best visualized on coronal image (7:169). Evolving, now larger hypodensity in the right frontoparietal lobe adjacent to the central sulcus (2:29). No edematous territorial infarction or intraparenchymal hemorrhage. Background of mild to moderate cardiomegaly and opacity and generalized cerebral volume loss. No evidence for obstructive hydrocephalus. No abnormal mass effect or midline shift. No extra-axial fluid collections. No acute soft tissue or osseous abnormalities. The mastoid air cells and paranasal sinuses are clear. CT/CT head/brain wo IV con IMPRESSION: 1. Multiple new age indeterminate hypodensities that could represent infarctions, compared to most recent prior CT head from 11/22/2022. Recommend further evaluation with an MRI of the brain. 2. No evidence of intracranial hemorrhage or edematous mass effect. This critical result was discussed with KVNG Stephens at 03/29/2023 6:55 PM and it was ascertained that the content and urgency of the report was understood at the time of direct communication.
--- NOTE | ~2023-03-29 | XR_ITS ---
EXAMINATION: XR CHEST CLINICAL INFORMATION: Weakness COMPARISON: Previous chest x-ray February 2023 TECHNIQUE: 2 views of the chest were obtained. FINDINGS: No significant abnormality is noted involving the heart, lungs, mediastinum, bony thorax or soft tissues. Degenerative changes of the spine. XR/XR chest 2V IMPRESSION: No evidence for acute disease in the chest.
--- NOTE | ~2023-03-29 | US_ITS ---
EXAMINATION: US EXTRACRANIAL CAROTID DUPLEX, BILATERAL CLINICAL INFORMATION: CVA COMPARISON: 07/21/2021. TECHNIQUE: Real-time ultrasound and Doppler techniques (integrating B-mode 2-D vascular images, Doppler spectral analysis and color-flow Doppler imaging) were utilized to interrogate the extracranial carotid arteries, the vertebral arteries and proximal subclavian arteries bilaterally. The degree of stenosis is determined by criteria similar to NASCET. FINDINGS: Right Side: 1. There is severe atherosclerotic plaque seen in the bifurcation/proximal ICA region. 2. The common carotid artery PSV proximally is 25 cm/s and distally 28 cm/s. 3. The proximal internal carotid artery is chronically occluded. 4. The proximal external carotid artery PSV is 545 cm/s. 5. The vertebral artery shows antegrade flow. 6. The subclavian artery waveforms are normal. Left Side: 1. There is severe atherosclerotic plaque seen in the bifurcation/proximal ICA region. 2. The common carotid artery PSV proximally is 97 cm/s and distally 125 cm/s. 3. The proximal internal carotid artery velocities are 133 cm/s systolic and 27 cm/s diastolic. 4. The proximal external carotid artery PSV is 94 cm/s. 5. The vertebral artery shows antegrade flow. 6. The subclavian artery waveforms are 56. US/US carotid duplex BI IMPRESSION: 1. 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 2. LEFT: Mildly increased velocity in the proximal internal carotid artery likely compensatory for contralateral occlusion. Using a threshold velocity of 140 cm/s in the setting of contralateral occlusion, stenosis is in the 0-49% category. 3. There is no change in the category severity of disease when compared to the previous study dated 07/21/2021.
[2023-03-29 14:04] VITALS: BP 194/79; PULSE 72; RESP 16; TEMP 36.4; O2SAT 98; BMI 27.8
--- NOTE | 2023-03-29 15:51 | ECG_ITS ---
Test Reason : weakness Blood Pressure : / mmHG Vent. Rate : 059 BPM Atrial Rate : 059 BPM P-R Int : 170 ms QRS Dur : 092 ms QT Int : 428 ms P-R-T Axes : 028 -20 007 degrees QTc Int : 423 ms Sinus bradycardia Otherwise normal ECG When compared with ECG of 28-FEB-2023 12:37, Nonspecific T wave abnormality no longer evident in Lateral leads Referred By: Nichole El Electronically Signed By:NETTIE ALVARADO
--- NOTE | 2023-03-29 15:52 | ED.WEAKNESS ---
HPI - Weakness General Chief complaint: Weakness Stated complaint: L Knee Back Pain S/P Fall 03/28/23 Time Seen by Provider: 03/29/23 19:10 Source: patient, EMS and old records reviewed Mode of arrival: EMS Limitations: no limitations History of Present Illness HPI Narrative: A 67-year-old male with pertinent history of CAD s/p stent, essential hypertension, CVA, COPD not using home supplemental oxygen, bipolar disorder, patient lives home alone use a walker and cane came in today for generalized weakness and multiple falls patient stated that he fell 5 times in the past 4 days, reported generalized weakness. No focal weakness, or numbness, no speech abnormality. Related Data Home Medications Medication Instructions Recorded Confirmed atorvastatin 80 mg tablet 1 tab PO BEDTIME 01/12/21 11/22/22 bupropion HCl 150 mg tablet,12 hr 1 tab PO BID 01/12/21 11/22/22 sustained-release clopidogrel 75 mg tablet 1 tab PO DAILY 01/12/21 11/22/22 fluoxetine 40 mg capsule 1 cap PO DAILY 01/12/21 11/22/22 isosorbide mononitrate 30 mg 1 tab PO DAILY 01/12/21 11/22/22 tablet,extended release 24 hr lamotrigine 100 mg tablet 1 tab PO BID 01/12/21 11/22/22 metoprolol tartrate 25 mg tablet 1 tab PO BID 01/12/21 11/22/22 quetiapine 400 mg tablet,extended 1 tab PO BEDTIME 01/12/21 11/22/22 release 24 hr trazodone 100 mg tablet 2 tab PO BEDTIME PRN Insomnia 01/12/21 11/22/22 aspirin 81 mg tablet,delayed 1 tab PO DAILY 11/03/21 11/22/22 release fluticasone propionate 50 1 spray intranasal BID PRN Allergy 11/03/21 11/22/22 mcg/actuation nasal Symptoms spray,suspension fluoxetine 10 mg capsule 1 cap PO DAILY 05/19/22 11/22/22 Previous Rx's Medication Instructions Recorded amlodipine 10 mg tablet 10 mg PO DAILY #1 tab 09/12/22 docusate sodium 100 mg capsule 100 mg PO DAILY PRN Constipation 09/12/22 #1 cap nitroglycerin 0.4 mg sublingual 0.4 mg sublingual Q5M PRN chest 09/12/22 tablet pain #1 tab Allergies Allergy/AdvReac Type Severity Reaction Status Date / Time clozapine [From Clozaril] Allergy Unknown RASH Verified 01/26/23 15:28 hydroxyzine [From VISTARIL] Allergy Unknown UNKNOWN Verified 01/26/23 15:28 menthol [From Antihistamine] Allergy Unknown RASH Verified 01/26/23 15:28 nicotine [Nicotine] Allergy Unknown GUM- MAKES Verified 01/26/23 15:28 SICK TO STOMACH nut - unspecified [nut] Allergy Unknown SWELLING Verified 01/26/23 15:28 From Antihistamine Allergy Unknown RASH Uncoded 01/12/21 02:28 Review of Systems Review of Systems: All other systems are reviewed and are negative Constitutional: Reports as per HPI and Reports no additional constitutional complaints Eyes: Reports as per HPI and Reports no additional eye complaints Reports system reviewed and no additional complaints, except as documented Cardiovascular: Reports as per HPI and Reports no additional cardiovascular complaints Respiratory: Reports as per HPI and Reports no additional respiratory complaints Gastrointestinal: Reports as per HPI and Reports no additional gastrointestinal complaints Genitourinary: Reports no additional female genitourinary complaints Musculoskeletal: Reports no additional musculoskeletal complaints Skin/Breast: Reports system reviewed and no additional complaints, except as docu Psychiatric: Reports no additional psychiatric complaints Endocrine: Reports no additional endocrine complaints Hematologic/Lymphatic: Reports no additional hematologic/lymphatic complaints Allergic/Immunologic: Reports no additional allergic/immunologic complaints Reports system reviewed and no additional complaints, except as documented and Reports Abnormal speech present ON LICENSE OF [facility] Past Medical History Medical History CAD (coronary artery disease) Schizoaffective disorder Peripheral arterial disease History of CVA (cerebrovascular accident) Bilateral carotid artery stenosis Stroke due to stenosis of carotid artery Arthritis Myocardial infarct Hypertension Surgical History H/O heart artery stent No significant past surgical history Family History Family History Father Heart disease Social History Social History Household Members: None Housing: Apartment Do you presently have visiting nurse or other home services: Yes Alcohol intake: current Alcohol intake frequency: does not drink Alcohol type: beer, wine and hard liquor Patient Tobacco Use Status: Former Tobacco user Tobacco use type: Cigar Advance Directives: Yes Advance Directives on File: Yes Advance Directives Date on File: 01/18/21 service: No Physical Exam Vital Signs: Vital Signs: Last Vital Signs Temp 97.6 F 03/29/23 14:04 Pulse 72 03/29/23 14:04 Resp 16 03/29/23 14:04 BP 194/79 H 03/29/23 14:04 Pulse Ox 98 03/29/23 14:04 O2 Del Method Room Air 03/29/23 14:04 BMI result Body Mass Index 27.8 Vital signs have been reviewed and appear to be correct. Blood pressure elevated. Heart rate normal. Respiratory rate normal. Temperature normal. Oxygen saturation normal. Appearance: Alert. Oriented X3. No acute distress. Head: Normal external exam. Normocephalic. Atraumatic. No [place] signs noted. No raccoon eyes noted Eyes: PERRLA. EOMI. Conjunctiva and sclera normal. Eyelids normal. ENT: TM's Normal. Pharynx normal. Uvula midline. Moist mucous membranes. No trismus noted. No drooling noted. No muffled voice noted. Neck: Normal inspection. Neck supple. FROM. No adenopathy. Thyroid Normal. No meningeal signs. No neck mass noted. CVS: Normal heart rate and rhythm. Heart sound normal. No murmurs noted. Pulses normal throughout. Respiratory: No respiratory distress. Painless inspiration. Breath sounds normal. No wheezes/rales/rhonchi noted. Chest nontender. No accessory muscle usage noted or decreased air movement noted. Abdomen: Soft and nontender. Bowel sounds normal in all 4 quadrants. No distention noted. No organomegaly noted. No visible injury noted. Back: 15 x 10 cm area of ecchymosis on the right buttock. No deformity, no step-off. Skin: Skin warm and dry. Normal skin color. Normal skin turgor. No rashes/lesions/lacerations noted. Extremities: Left knee: Superficial skin abrasion on the left knee, full range of motion, patent left femoral artery and left popliteal artery and the left PT/DP. With intact sensation. Neuro: Oriented X 3. Cranial nerve exam: II-XII are grossly intact No motor deficit. No sensory deficit. Reflexes normal. Course Course Course Narrative: This is an RME: Additional HPI, ROS, PE not included below will be deferred to primary provider. This is a [id number]-male, hx of CAD, schizoaffective disorder, CVA, BL carotid artery stenosis, presenting to the emergency department complaints of weakness x5 days. Plan: Labs, UA, chest x-ray, further ER evaluation needed. CT head [facility] [place] [facility] calling in, question of acute versus chronic infarct in the left frontal and right parietal. They are recommending MRI. Discussed case with my attending physician, Dr. Lopez, states that given his symptoms started days ago, patient will likely have MRI with admission. MRI no ordered at this time, however notified charge nurse to bring patient back to the main emergency department for further evaluation. Reevaluation(s) Reevaluation #1: 67-year-old male lives home alone came in with multiple falls and over the past few days head CT is indicating a recent stroke (patient's symptoms started 4 days ago) no intervention is indicated at this point due to delayed patient's presentation to the hospital. Patient is already taking aspirin and Plavix. Will admit the patient for further neurological evaluation. Time: 19:26 Medical Decision Making Differential Diagnosis Differential Diagnoses: The differential diagnosis associated with the presentation includes (Dehydration, electrolyte abnormality, severe anemia, generalized weakness, acute stroke.) Admission/Observation Consideration of admission/observation: Escalation of care including admission/observation considered Consult Healthcare Provider Management of the patient was discussed with: Hospitalist Lab Data MDM Lab Attestation statement: I reviewed the patient's lab results. 03/29/23 17:06 03/29/23 17:06 Labs: Lab Results 03/29/23 Range/Units 17:06 WBC 10.5 (4.8-10.8) X10*3/uL RBC 4.28 L (4.60-5.80) X10*6/uL Hgb 12.5 L (14.0-18.0) g/dl Hct 39.2 L (42.0-52.0) % MCV 91.6 (80.0-98.0) fL MCH 29.2 (27.0-33.0) pg MCHC 31.9 (31.0-36.0) g/dl RDW 13.7 (11.0-16.0) % Plt Count 265 (160-400) X10*3/uL MPV 10.0 (9.4-12.4) fL Immature Gran % (Auto) 0.4 (0.0-0.4) % Neut % (Auto) 55.7 (45-73) % Lymph % (Auto) 32.2 (20-40) % [place] % (Auto) 6.2 (2-11) % Eos % (Auto) 4.5 H (0-4) % Baso % (Auto) 1.0 (0-2) % Lymph # (Auto) 3.4 (1.2-4.9) X10*3/uL [place] # (Auto) 0.7 (0.1-1.2) X10*3/uL Eos # (Auto) 0.5 H (0.0-0.4) X10*3/uL Baso # (Auto) 0.1 (0.0-0.2) X10*3/uL Abs Immat Gran (auto) 0.04 H (0.00-0.03) X10*3/uL Absolute Neuts (auto) 5.8 (2.0-8.3) x10*3/uL Absolute Nucleated RBC 0.000 (0.0-0.012) X10*3/uL Nucleated RBC % (auto) 0.0 (0.0-0.2) /100WBC Sodium 140 (135-145) mmol/L Potassium 3.8 (3.3-5.1) mmol/L Chloride 107 (96-108) mmol/L Carbon Dioxide 27 (22-29) mmol/L Anion Gap 10 L (12-20) BUN 20 H (9-16) mg/dL Creatinine 1.83 H (0.5-1.4) mg/dL Estim Creat Clear Calc 43.5 Estimated GFR 37 Random Glucose 93 (60-115) mg/dL Calcium 8.9 (8.4-10.2) mg/dL Magnesium 2.1 (1.6-2.6) mg/dL Total Bilirubin 0.5 (0.0-1.0) mg/dL Direct Bilirubin 0.2 (0.0-0.5) mg/dL AST 22 (5-37) U/L ALT 18 (0-40) U/L Alkaline Phosphatase 126 H (39-117) U/L Troponin I High Sens 4.1 (<3.5-35.0) ng/L Total Protein 7.1 (6.5-8.0) g/dL Albumin 3.7 (3.5-5.0) g/dL Influenza Type A (PCR) NEGATIVE (Negative) Influenza Type B (PCR) NEGATIVE (Negative) RSV RNA Qual (PCR) NEGATIVE (Negative) SARS-CoV-2 RNA (RT-PCR) NEGATIVE (Negative) Independent Interpretation I performed an independent interpretation of an: EKG (Normal sinus rhythm at 60 beats per minutes, left axis deviation, normal intervals, no ST-T changes, no change from previous EKG.), Plain X-Ray (Chest: No evidence for acute disease in the chest.) and CT Scan (Head:1. Multiple new age indeterminate hypodensities that could represent infarctions, compared to most recent prior CT head from 11/22/2022. Recommend further evaluation with an MRI of the brain. 2. No evidence of intracranial hemorrhage or edematous mass effect. ) Radiology Impression Discussion of test interpretation with radiology: I have reviewed the radiologist's reading. Chronic Conditions Patient?s care impacted by: Other (Previous CVAs) Discharge Plan Discharge Clinical Impression: Generalized weakness, Acute CVA (cerebrovascular accident) Patient Disposition: Admitted As Inpatient Prescriptions: No Action fluoxetine 40 mg capsule 1 cap PO DAILY Rx Instructions: take with 10mg; total dose 50mg bupropion HCl 150 mg tablet sustained-release 12 hr 1 tab PO BID atorvastatin 80 mg tablet 1 tab PO BEDTIME isosorbide mononitrate 30 mg tablet extended release 24 hr 1 tab PO DAILY clopidogrel 75 mg tablet 1 tab PO DAILY trazodone 100 mg tablet 2 tab PO BEDTIME PRN (Reason: Insomnia) lamotrigine 100 mg tablet 1 tab PO BID metoprolol tartrate 25 mg tablet 1 tab PO BID quetiapine 400 mg tablet extended release 24 hr 1 tab PO BEDTIME fluoxetine 10 mg capsule 1 cap PO DAILY Rx Instructions: take with 40mg; total dose 50mg aspirin 81 mg tablet,delayed release (DR/EC) 1 tab PO DAILY fluticasone propionate 50 mcg/actuation [place],Suspension 1 spray INTRANASAL BID PRN (Reason: Allergy Symptoms) Rx Instructions: administer into each nostril amlodipine 10 mg Tablet 10 mg PO DAILY Qty: 1 0RF Protocol: Hold for SBP< HOLD for SBP < : 90 docusate sodium 100 mg Capsule 100 mg PO DAILY PRN (Reason: Constipation) Qty: 1 0RF nitroglycerin 0.4 mg tablet, sublingual 0.4 mg sublingual Q5M PRN (Reason: chest pain) Qty: 1 0RF Rx Instructions: do not exceed 3 doses per episode
[2023-03-29 17:13] LABS: MANUAL DIFF FLAG NO
[2023-03-29 17:15] LABS: Basophils Absolute Auto 0.1 X10*3/uL (0.0-0.2); Eosinophils Absolute Auto 0.5 X10*3/uL (0.0-0.4); Eosinophils Percent Auto 4.5 % (0-4); Hematocrit 39.2 % (42.0-52.0); Hemoglobin 12.5 g/dl (14.0-18.0); Imm Gran Abs Auto 0.04 X10*3/uL (0.00-0.03); Imm Gran Pct Auto 0.4 % (0.0-0.4); Lymphocytes Absolute Auto 3.4 X10*3/uL (1.2-4.9); Lymphocytes Percent Auto 32.2 % (20-40); Mean Corpuscular HGB Conc 31.9 g/dl (31.0-36.0); Mean Corpuscular Hemoglobin 29.2 pg (27.0-33.0); Mean Corpuscular Volume 91.6 fL (80.0-98.0); Monocytes Absolute Auto 0.7 X10*3/uL (0.1-1.2); Monocytes Percent Auto 6.2 % (2-11); Neutrophils Absolute Auto 5.8 x10*3/uL (2.0-8.3); Neutrophils Percent Auto 55.7 % (45-73); Platelet Count 265 X10*3/uL (160-400); Red Blood Count 4.28 X10*6/uL (4.60-5.80); Red Cell Distribution Width 13.7 % (11.0-16.0); White Blood Count 10.5 X10*3/uL (4.8-10.8)
[2023-03-29 17:29] LABS: Alanine Aminotransferase 18 U/L (0-40); Albumin Level 3.7 g/dL (3.5-5.0); Alkaline Phosphatase 126 U/L (39-117); Anion Gap 10 (12-20); Aspartate Amino Transferase 22 U/L (5-37); Bilirubin Direct 0.2 mg/dL (0.0-0.5); Bilirubin Total 0.5 mg/dL (0.0-1.0); Blood Urea Nitrogen 20 mg/dL (9-16); Calcium 8.9 mg/dL (8.4-10.2); Carbon Dioxide 27 mmol/L (22-29); Chloride 107 mmol/L (96-108); Creatinine Clr Calc Pharmacy 43.5; Estimated Glomerular Filt Rate 37; Glucose Random 93 mg/dL (60-115); Magnesium 2.1 mg/dL (1.6-2.6); Potassium 3.8 mmol/L (3.3-5.1); Sodium 140 mmol/L (135-145); Total Protein 7.1 g/dL (6.5-8.0)
[2023-03-29 17:35] LABS: Troponin-I High Sensitivity 4.1 ng/L (<3.5-35.0)
[2023-03-29 18:08] LABS: Influenza A PCR NEGATIVE (Negative); Influenza B PCR NEGATIVE (Negative); Resp Syncy Virus RNA Qual PCR NEGATIVE (Negative); SARS COV2 PCR INHOUSE NEGATIVE (Negative)
--- NOTE | 2023-03-29 19:53 | PHA.MEDREC ---
Pharmacy Consult ? Medication Reconciliation Pharmacy has completed the medication reconciliation. Received list from Uzma at [facility]. Debbi Lemon, SherD
[2023-03-29 22:56] VITALS: BP 149/78; PULSE 65; RESP 12; O2SAT 98
[2023-03-29] MEDS: Enoxaparin Sodium 40 MG/0.4 ML SYRINGE SUBCUT (22:58)
--- NOTE | 2023-03-29 23:05 | PC.NURSE ---
pt a&ox3, reports that it is 2021, hypertensive, other vss. GCS 15. passed nursing swallow screen. pt reports increased weakness from the past 4-5 days, increased falls, feels as though his legs are giving out on him when he goes to stand up from sitting/lying down. scattered bruising to upper and lower back with bruising to coccyx which pt attributes to recent falls. urine sample obtained and sent to lab. MRI screening for completed w pt, per admitting provider cardiac monitoring can be discontinued for MRI.
[2023-03-29 23:10] LABS: Appearance Urine Clear; Color Urine Yellow; Glucose Urine UA Negative (Negative); Leukocyte Esterase Urine Negative (Negative); Nitrite Urine Negative (Negative); Urine Blood Negative (Negative); Urine Ketones Negative (Negative); Urine Protein Negative (Neg-Trace)
--- NOTE | 2023-03-29 23:16 | PC.NURSE ---
MRI screening form faxed to MRI.
[2023-03-30] VITALS (8 sets, daily range): BP systolic 97–183; BP diastolic 58–90; PULSE 53–76; RESP 10–20; TEMP 36.2–37.3; O2SAT 95–99; BMI 28.8
--- NOTE | 2023-03-30 01:05 | PC.NURSE ---
this rn assumed care of pt @ 2300. @ 0102 bp 183/79, this rn made oyula aware of high bp, no new orders at this time
--- NOTE | 2023-03-30 01:59 | PM.IMHP ---
History of Present Illness Date of Service: 03/29/23 Attending physician on admission: Cain Pitt Chief Complaint: Generalized weakness and falls over the last 4 days Patient is a 67 year old white male with PMH as detailed below including history of CAD s/p PCI with stenting, hypertension, CVA, COPD, and bipolar disorder who lives at home alone who presents to the ED c/o generalized weakness with repeated episodes of falls. 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 He also reports falling and landing on his buttocks and now has a tender bruise over his sacrum and a scrape on his left knee. He thinks he is falling because his legs are very weak. He denies any associated dizziness, chest pain, palpitations, visual or speech changes or focal/unilateral limb weakness. He is not sure if he lost consciousness when he fell. Today, his material preparation worker from [facility] came by to visit him and after discussions with his home PT & OT providers, brought him to the emergency room for evaluation. Initial work up done in the ER was significant for finding of elevated blood pressure at 194/79 mmHg and blood work showing mild deterioration in his renal function with a new estimated eGFR of ~ 43. A CT scan of the brain done showed multiple new, age indeterminate hypodensities in the right frontal lobe, high right parietal lobe and right frontoparietal lobes concerning for infarctions. A brain MRI was recommended for further evaluation. Admission was therefore requested for further work up and Neurology evaluation. Review of Systems Review of Systems: Yes all other systems are reviewed and are negative [facility] Medical History (Updated 03/30/23 @ 02:19 by Cain Pitt MD) Multiple falls CAD (coronary artery disease) Schizoaffective disorder Peripheral arterial disease History of CVA (cerebrovascular accident) Bilateral carotid artery stenosis Stroke due to stenosis of carotid artery Arthritis Myocardial infarct Hypertension Family History Father Heart disease Surgical History H/O heart artery stent No significant past surgical history Social History Household Members: None Housing: Apartment Do you presently have visiting nurse or other home services: Yes Alcohol intake: former Patient Tobacco Use Status: Former Tobacco user Tobacco use type: Cigar Smoked in Last 30 Days: No Use of substances other than those prescribed or required for medical reasons: No Advance Directives: Yes Advance Directives on File: Yes Advance Directives Date on File: 01/18/21 Nutrition Risks: No Nutritional Risk service: No Meds Allergies Allergy/AdvReac Type Severity Reaction Status Date / Time clozapine [From Clozaril] Allergy Unknown RASH Verified 01/26/23 15:28 hydroxyzine [From VISTARIL] Allergy Unknown UNKNOWN Verified 01/26/23 15:28 menthol [From Antihistamine] Allergy Unknown RASH Verified 01/26/23 15:28 nicotine [Nicotine] Allergy Unknown GUM- MAKES Verified 01/26/23 15:28 SICK TO STOMACH nut - unspecified [nut] Allergy Unknown SWELLING Verified 01/26/23 15:28 From Antihistamine Allergy Unknown RASH Uncoded 01/12/21 02:28 Home Medications Medication Instructions Recorded Confirmed Last Taken Type atorvastatin 80 mg tablet 1 tab PO BEDTIME 01/12/21 03/29/23 05/18/22 History bupropion HCl 150 mg tablet,12 hr 1 tab PO BID 01/12/21 03/29/23 05/19/22 09:00 History sustained-release clopidogrel 75 mg tablet 1 tab PO DAILY 01/12/21 03/29/23 05/19/22 09:00 History fluoxetine 40 mg capsule 1 cap PO DAILY 01/12/21 03/29/23 05/19/22 09:00 History lamotrigine 100 mg tablet 200 tab PO BID 01/12/21 03/29/23 05/19/22 09:00 History quetiapine 400 mg tablet,extended 1 tab PO BEDTIME 01/12/21 03/29/23 05/18/22 History release 24 hr trazodone 100 mg tablet 2 tab PO BEDTIME Insomnia 01/12/21 03/29/23 05/18/22 History aspirin 81 mg tablet,delayed 1 tab PO DAILY 11/03/21 03/29/23 05/19/22 09:00 History release fluticasone propionate 50 1 spray intranasal BID Allergy 11/03/21 03/29/23 Unknown History mcg/actuation nasal Symptoms spray,suspension acetaminophen 325 mg tablet 650 mg PO Q6H PRN Pain (Scale 03/29/23 03/29/23 Unknown History Score 1-3) lidocaine 5 % topical patch 1 patch topical DAILY PRN Pain 03/29/23 03/29/23 Unknown History sennosides 8.6 mg tablet (senna) 8.6 mg PO BEDTIME PRN Constipation 03/29/23 03/29/23 Unknown History Physical Exam Vital Signs and Narrative: Vital Signs: Last Vital Signs Temp 97.6 F 03/29/23 14:04 Pulse 58 03/30/23 01:04 Resp 10 L 03/30/23 01:04 BP 183/79 H 03/30/23 01:04 Pulse Ox 99 03/30/23 01:04 O2 Del Method Room Air 03/30/23 01:04 BMI result Body Mass Index 27.8 General: Well nourished WM in bed. Awake, alert and oriented x 4. No apparent distress Eyes: No pallor or jaundice. PERRLA, EOMI HENT: Moist oral mucus membranes. No oropharyngeal lesions. Neck: Supple. No cervical adenopathy. No JVD Cardiovascular: Regular rate and rhythm. Normal heart sounds. No murmurs, rubs or gallops. No JVD. No peripheral edema. Respiratory: Normal respiratory effort with no accessory muscle use. CTAB. Gastrointestinal: Abdomen is soft, non-tender, non-distended. NABS. No hepatosplenomegaly Extremities: No edema. No calf tenderness. Good peripheral pulses Skin - Warm/Dry. Bruising over the sacral area with tenderness. No mottling. Capillary refill is < 2 seconds Neurological - AAOx4. Intact speech & cognition. Gait & balance were not assessed but he is able to move all his extremities with no weakness noted. CN II - XII grossly intact but not individually tested. Hematologic: No bleeding. No ecchymosis. No swollen or tender lymph nodes. Psychiatric: Cooperative. Appropriate mood and affect. Results Labs 03/29/23 17:06 03/29/23 17:06 Labs: Laboratory Results - last 24 hr 03/29/23 03/29/23 17:06 23:01 MCV 91.6 MCH 29.2 MCHC 31.9 RDW 13.7 Plt Count 265 MPV 10.0 Immature Gran % (Auto) 0.4 Neut % (Auto) 55.7 Lymph % (Auto) 32.2 Cotton % (Auto) 6.2 Eos % (Auto) 4.5 H Baso % (Auto) 1.0 Lymph # (Auto) 3.4 Cotton # (Auto) 0.7 Eos # (Auto) 0.5 H Baso # (Auto) 0.1 Abs Immat Gran (auto) 0.04 H Absolute Neuts (auto) 5.8 Absolute Nucleated RBC 0.000 Nucleated RBC % (auto) 0.0 Anion Gap 10 L Estim Creat Clear Calc 43.5 Estimated GFR 37 Random Glucose 93 Calcium 8.9 Magnesium 2.1 Total Bilirubin 0.5 Direct Bilirubin 0.2 AST 22 ALT 18 Alkaline Phosphatase 126 H Total Protein 7.1 Albumin 3.7 Urine Color Yellow Urine Appearance Clear Urine pH 6.0 Ur Specific [place] 1.010 Urine Protein Negative Urine Glucose (UA) Negative Urine Ketones Negative Urine Blood Negative Urine Nitrite Negative Ur Leukocyte Esterase Negative Influenza Type A (PCR) NEGATIVE Influenza Type B (PCR) NEGATIVE RSV RNA Qual (PCR) NEGATIVE SARS-CoV-2 RNA (RT-PCR) NEGATIVE ECG ECG interpretation date: 03/29/23 Prior ECG tracings: available for review Pacemaker model: NSR at 60 bpm. LAD. Normal IA interval and ST-segment Imaging Radiologist's Impressions: Impressions Chest X-Ray 03/29/23 16:07 IMPRESSION: No evidence for acute disease in the chest. Head CT 03/29/23 17:56 IMPRESSION: 1. Multiple new age indeterminate hypodensities that could represent infarctions, compared to most recent prior CT head from 11/22/2022. Recommend further evaluation with an MRI of the brain. 2. No evidence of intracranial hemorrhage or edematous mass effect. This critical result was discussed with KVNG Stephens at 03/29/2023 6:55 PM and it was ascertained that the content and urgency of the report was understood at the time of direct communication. Assessment and Plan (1) Acute CVA (cerebrovascular accident): Status: Acute (2) Generalized weakness: Status: Acute (3) Hypertensive emergency: Status: Acute (4) Stage 3b chronic kidney disease: Status: Acute (5) Unsteady gait: Status: Inactive (6) Multiple falls: Status: Inactive Plan 67 year old white male with PMH of CAD s/p PCI with stent placement, hypertension, CVA, COPD, and bipolar disorder here with 1. CVA - CT scan of the brain shows multiple new, age indeterminate hypodensities in the right frontal lobe, high right parietal lobe and right frontoparietal lobes concerning for infarctions. - admit to telemetry - get MRI and Echo in AM - Neurology consult - continue Aspirin, Plavix & Atorvastatin - PT / OT consult 2. Asthenia - reports feeling very weak with increasing weakness and falls - likely due to CVA - will consult Neurology to see - will also benefit from PT evaluation & treatment 3. Hypertensive urgency - BP significantly elevated at 194/79 - allow for permissive hypertension given ischemic CVA - start on low rodriguez Metoprolol 4, CKD stage 3B - noted with increase serum creatinine to 3.8 - eGFR of 43 - closely monitor 5. Sacral bruise - secondary to a fall - monitor 6. CAD - s/pp PCI with stent placement - resume aspirin, plavix and PRN SL Nitroglycerine - start beta blockers 7. Bipolar disorder - stable - resume Fluoxetine, Quetiapine, Lamotrigine and Bupropion DVT: SC Lovenox CODE STATUS: Full code Admission for at least 2 midnights for management of CVA, uncontrolled hypertension and CKD 3B Quality Stroke Does the patient have a stroke diagnosis?: Yes Reason for No Anti-thrombotic by Day Two: N/A - Med Ordered VTE Prior VTE?: No VTE Risk Level:: Medical - moderate - high VTE Device Contraindication: Treatment Not Indicated VTE Drug Contraindication: N/A - Med Ordered
[2023-03-30] MEDS: 0.9 % Sodium Chloride Flush 3 ML SYRINGE IVFLUSH ×4 (04:43→20:39)
--- NOTE | 2023-03-30 07:00 | CA_ITS ---
Transthoracic Echocardiogram Patient (Last, First, Middle): Edward Rosa J Gender: Male Date of : 1955 Age: 67 Procedure Date: 03/30/2023 Procedure Type: Transthoracic [place] [facility] [place]: 182. cm Weight: 96.16 kg BSA: 2.18 m2 Heart Rate: 56 bpm BP: 108 / 78 mmHg Purchasing And Claims Supervisor: CRISTAL Referring MD: Cain Pitt MD Symptoms: CVA Study Quality: Adequate ECG Rhythm: Bradycardia Conclusions: - The left ventricular systolic function is normal. The calculated ejection fraction is 68% by biplane method. - The basal inferior segment is hypokinetic. - No obvious valvular pathology seen on this study. - There is mild dilatation of the sinuses of Valsalva measuring 4.20 cm and mild dilatation of the ascending aorta measuring 4.40 cm. Findings Left Ventricle Normal left ventricular cavity size. There is mildly increased left ventricular wall thickness. The left ventricular systolic function is normal. The calculated ejection fraction is 68% by biplane method. There is no evidence of regional wall motion abnormalities. Evidence suggests grade I (mild) diastolic dysfunction. There is moderate septal asymmetric hypertrophy. LV peak GLS -19.1%. Wall Motion Rest Echo Findings The basal inferior segment is hypokinetic. Right Ventricle Mildly increased right ventricular cavity size. There is normal right ventricular systolic function. Atria The left atrium is likely dilated. The right atrium is normal in size. Aortic Valve There is a normal trileaflet aortic valve. There is mild calcification of the aortic valve. There is no aortic valve stenosis. There is no aortic valve regurgitation. Mitral Valve The mitral valve appears normal. There is no mitral valve regurgitation. There is no mitral valve stenosis. Pulmonic Valve The pulmonic valve is likely normal. Tricuspid Valve Normal tricuspid valve structure. There is trace tricuspid valve regurgitation. There is no evidence of pulmonary hypertension. Great Vessels There is mild dilatation of the sinuses of Valsalva measuring 4.20 cm and mild dilatation of the ascending aorta measuring 4.40 cm. Venous The inferior vena cava is normal in size and collapses greater than 50% with inspiration. Pericardium/Pleural There is no evidence of pericardial effusion. Prior Study Comparison No significant change compared to prior study dated: 09/12/2022. Increase in ascending aortic size, but could also be technical. Recommendations, Care & Conclusions No obvious valvular pathology seen on this study. Measurements 2D Linear Measurements IVSd: 1.41 0.6-0.9/0.6-1.0 cm LVIDd: 3.90 3.9-5.3/4.2-5.9 cm LVIDd Index: 1.79 2.4-3.2/2.2-3.1 cm/m2 LVIDs: 2.19 2.0-3.6 cm LVPWd: 1.28 0.7-1.1 cm LA Diam: 4.60 2.7-3.8/3.0-4.0 cm LAIDs Index: 2.11 1.5-2.3 cm/m2 LV Mass: 235.95 67-162/88-224 g LV Mass Index: 108.23 43-95/49-115 g/m2 LVOT Diam: 2.20 3.0+(-)1.3 cm 2D Systolic Function EF 4C: 69.70 >55% EF 2C: 64.40 >55% EF BiP: 68.00 >55% Mitral Valve MV Pk E: 0.58 MV PK A: 0.74 MV Decel Time: 318.00 E/A: 0.80 E'Lateral: 5.48 E'Medial: 4.65 E/E' Med: 12.50 E/E' Lat: 10.60 PHT: 93.00 MVA PHT: 2.37 Decel [place]: 1.83 Aortic Valve AoV Pk Michael: 1.12 AoV Mn Michael: 0.77 AoV VTI: 0.25 AoV Pk Grad: 5.00 Aov Mn Grad: 3.00 NIKKIE Cont.VTI: 3.55 LVOT LVOT Pk Michael: 0.97 LVOT Mn Michael: 0.65 LVOT VTI: 0.23 LVOT Pk Grad: 4.00 LVOT Mn Grad: 2.00 LVOT Diam: 2.20 LVOT Area: 3.80 Diastolic Function MV Pk E: 0.58 MV Pk A: 0.74 E/A: 0.80 E'Medial: 4.65 E/E' Med: 12.50 E' Laterial: 5.48 E/E' Lat: 10.60 Right Ventricle TAPSE (mm): 22.60 TVS' Michael: 15.10 Tricuspid Valve TR Pk Michael: 1.95 TR Pk Grad: 15.00 RA Press: 3.00 RVSP: 18.00 Great Vessels Aorta Sinus of Valsalva: 4.20 2.0-3.5 cm Ao Asc: 4.40 2.1-3.4 cm Pulmonary Valve PV Pk Michael: 0.91 Peak PV Grad: 3.00 Updated in Other Vendor System with Status of Final Michael Littlejohn MD electronically signed on 03/30/2023 12:29:54 PM with status of Final
[2023-03-30] MEDS: Acetaminophen 325 MG TABLET 650 MG PO (07:38)
[2023-03-30] MEDS: lamoTRIgine 100 MG TABLET 200 MG PO ×2 (07:39→20:38)
[2023-03-30] MEDS: FLUoxetine HCl 10 MG CAPSULE PO (07:40)
[2023-03-30] MEDS: FLUoxetine HCl 20 MG CAPSULE 40 MG PO (07:41)
[2023-03-30] MEDS: QUEtiapine Fumarate 200 MG TABLET PO ×2 (07:41→20:39)
[2023-03-30] MEDS: Aspirin Enteric Coated 81 MG TABLET.DR PO (07:41)
[2023-03-30] MEDS: buPROPion HCl XL 300 MG TAB.ER.24H PO (07:41)
[2023-03-30] MEDS: Clopidogrel Bisulfate 75 MG TABLET PO (07:42)
[2023-03-30 07:48] LABS: Hematocrit 39.6 % (42.0-52.0); Hemoglobin 13.1 g/dl (14.0-18.0); Mean Corpuscular HGB Conc 33.1 g/dl (31.0-36.0); Mean Corpuscular Volume 90.8 fL (80.0-98.0); Mean Platelet Volume 10.5 fL (9.4-12.4); Platelet Count 251 X10*3/uL (160-400); Red Blood Count 4.36 X10*6/uL (4.60-5.80); Red Cell Distribution Width 13.5 % (11.0-16.0); White Blood Count 8.6 X10*3/uL (4.8-10.8)
[2023-03-30 07:49] LABS: Prothrombin Time 12.5 SEC (11.1-13.3)
[2023-03-30 07:54] LABS: Cholesterol 171 mg/dL (<200); HDL Cholesterol 32 mg/dL (>40); LDL Cholesterol Calculated 92 mg/dL (<100); Triglycerides 235 mg/dL (<150)
[2023-03-30 08:11] LABS: Anion Gap 11 (12-20); Blood Urea Nitrogen 17 mg/dL (9-16); Calcium 8.9 mg/dL (8.4-10.2); Carbon Dioxide 27 mmol/L (22-29); Chloride 107 mmol/L (96-108); Creatinine Clr Calc Pharmacy 54.3; Estimated Glomerular Filt Rate 43; Glucose Random 91 mg/dL (60-115); Magnesium 2.2 mg/dL (1.6-2.6); Sodium 141 mmol/L (135-145)
[2023-03-30 08:15] LABS: Thyroid Stimulating Hormone 0.59 uIU/mL (0.32-4.0)
--- NOTE | 2023-03-30 10:15 | MHC.CM.PN ---
IMM 03/30. Pt lives alone at home, uses a cane. Is followed by [facility], get visits 2x/week from them. [facility] nurse Kiki can be reached at [phone]. Kiki or pts brother/HCP Trevon ([phone]) can transport pt home. Per Kiki/JULIAN pt is usually alert and oriented x 3 but has been having more memory issues lately. He used to have a VNA, but now only has [facility] and now longer has [facility] as he made too much money. DCP TBD, Pt will have an MRI, neuro consult, and need PT/OT eval to assist with D/C dispo. PCP: Dr. Balaji Mayo
--- NOTE | 2023-03-30 11:36 | MHC.CLN ---
RE: CONSULT PT TRIGGERS FOR 13% SIGNIFICANT WT LOSS X 6 MONTHS PT REMAINS OBESE FOR HT SPOKE WITH PT REGARDING WT LOSS; PT STATED HE IS SATISFIED AT HIS CURRENT WT AND DOES NOT WANT TO GAIN AT THIS TIME DIET RX: CARDIAC DIET-APPROPRIATE IF PO INTAKE <25% X 3 DAYS; RECOMMEND ADDING NUTRITION SUPPLEMENT
--- NOTE | 2023-03-30 13:39 | HO.PM.IMPN ---
Subjective Subjective Date of Service: 03/30/23 Interval History: f/u on acute CVA, overall still feels very weakn in generall but no focal deficit, both CT and MRI confirmed stroke Physical Exam Vital Signs: Vital Signs: Last Vital Signs Temp 98.1 F 03/30/23 11:14 Pulse 61 03/30/23 11:14 Resp 20 03/30/23 11:14 BP 98/71 03/30/23 11:14 Pulse Ox 98 03/30/23 11:14 O2 Del Method Room Air 03/30/23 11:14 BMI result Body Mass Index 28.8 Const: Other: General: Well nourished WM in bed. Awake, alert and oriented x 4. No apparent distress Cardiovascular: Regular rate and rhythm. Normal heart sounds. No murmurs, rubs or gallops. No JVD. No peripheral edema. Respiratory: Normal respiratory effort with no accessory muscle use. CTAB. Gastrointestinal: Abdomen is soft, non-tender, non-distended. NABS. No hepatosplenomegaly Extremities: No edema. No calf tenderness. Good peripheral pulses Skin - Warm/Dry. Bruising over the sacral area with tenderness. Neurological - AAOx4. Intact speech & cognition. CN II - XII grossly intact but not individually tested. gait not tested while waiting for pt Hematologic: No bleeding. No ecchymosis. No swollen or tender lymph nodes. Psychiatric: Cooperative. Appropriate mood and affect Objective Data Active Medications Acetaminophen (Acetaminophen 325 Mg Tablet) 650 mg PO Q6H PRN PRN Reason: Pain, Mild (Pain Scale 1-3) Last Admin: 03/30/23 07:38 Dose: 650 mg Documented By: JOE Al Hydroxide/Mg Hydroxide (Magnesium Hydrox/Alum Hydrox 30 Ml Oral.Susp) 30 ml PO Q4H PRN PRN Reason: Heartburn/Nausea Aspirin (Aspirin Enteric Coated 81 Mg Tablet.) 81 mg PO DAILY [facility] Last Admin: 03/30/23 07:41 Dose: 81 mg Documented By: JOE Atorvastatin Calcium (Atorvastatin Calcium 80 Mg Tablet) 80 mg PO BEDTIME [facility] Bupropion HCl (Bupropion Hcl Xl 300 Mg Tab.Er.24h) 300 mg PO DAILY [facility] Last Admin: 03/30/23 07:41 Dose: 300 mg Documented By: JOE Clopidogrel Bisulfate (Clopidogrel Bisulfate 75 Mg Tablet) 75 mg PO DAILY [facility] Last Admin: 03/30/23 07:42 Dose: 75 mg Documented By: JOE Docusate Sodium (Docusate Sodium 100 Mg Capsule) 100 mg PO BID [facility] Last Admin: 03/30/23 07:42 Dose: Not Given Documented By: JOE Non-Admin Reason: Patient Refused Enoxaparin Sodium (Enoxaparin Sodium 40 Mg/0.4 Ml Syringe) 40 mg SUBCUT Q24H [facility] Last Admin: 03/29/23 22:58 Dose: 40 mg Documented By: DICK Fluoxetine HCl (Fluoxetine Hcl 20 Mg Capsule) 40 mg PO DAILY [facility] Last Admin: 03/30/23 07:41 Dose: 40 mg Documented By: JOE Fluoxetine HCl (Fluoxetine Hcl 10 Mg Capsule) 10 mg PO DAILY [facility] Last Admin: 03/30/23 07:40 Dose: 10 mg Documented By: JOE Fluticasone Propionate (Fluticasone Propionate Nasal 16 Gm [place]) 1 spray NOSTRIL-B BID [facility] Last Admin: 03/30/23 12:16 Dose: Not Given Documented By: JOE Non-Admin Reason: Patient Refused Lamotrigine (Lamotrigine 100 Mg Tablet) 200 mg PO BID [facility] Last Admin: 03/30/23 07:39 Dose: 200 mg Documented By: JOE Lidocaine (Lidocaine 4 % Patch Adh..Patch) 1 patch TRANSDERMA DAILY PRN PRN Reason: Pain, Moderate(Pain Scale 4-6) Melatonin (Melatonin 3 Mg Tablet) 6 mg PO BEDTIME PRN PRN Reason: Insomnia Nitroglycerin (Nitroglycerin 0.4 Mg Tab.Subl) 0.4 mg SUBLINGUAL Q5MX3 PRN PRN Reason: chest pain Ondansetron HCl (Ondansetron Hcl 4 Mg/2 Ml Vial) 4 mg IVPUSH Q8H PRN PRN Reason: Nausea and Vomiting Quetiapine Fumarate (Quetiapine Fumarate 200 Mg Tablet) 200 mg PO BID [facility] Last Admin: 03/30/23 07:41 Dose: 200 mg Documented By: JOE Senna (Sennosides 8.6 Mg Tablet) 17.2 mg PO BEDTIME PRN PRN Reason: Constipation Sodium Chloride (0.9 % Sodium Chloride Flush 3 Ml Syringe) 3 ml IVFLUSH QSHIFT [facility] Last Admin: 03/30/23 07:42 Dose: 3 ml Documented By: JOE Trazodone HCl (Trazodone Hcl 100 Mg Tablet) 200 mg PO BEDTIME [facility] Labs 03/30/23 07:10 03/30/23 07:10 Labs: Laboratory Results - last 24 hr 03/29/23 03/29/23 03/30/23 17:06 23:01 07:10 MCV 91.6 90.8 MCH 29.2 30.0 MCHC 31.9 33.1 RDW 13.7 13.5 Plt Count 265 251 MPV 10.0 10.5 Immature Gran % (Auto) 0.4 Neut % (Auto) 55.7 Lymph % (Auto) 32.2 [place] % (Auto) 6.2 Eos % (Auto) 4.5 H Baso % (Auto) 1.0 Lymph # (Auto) 3.4 [place] # (Auto) 0.7 Eos # (Auto) 0.5 H Baso # (Auto) 0.1 Abs Immat Gran (auto) 0.04 H Absolute Neuts (auto) 5.8 Absolute Nucleated RBC 0.000 0.000 Nucleated RBC % (auto) 0.0 0.0 PT 12.5 INR 1.0 Anion Gap 10 L 11 L Estim Creat Clear Calc 43.5 54.3 Estimated GFR 37 43 Random Glucose 93 91 Calcium 8.9 8.9 Magnesium 2.1 2.2 Total Bilirubin 0.5 Direct Bilirubin 0.2 AST 22 ALT 18 Alkaline Phosphatase 126 H Total Protein 7.1 Albumin 3.7 Triglycerides 235 H Cholesterol 171 LDL Cholesterol, Calc 92 HDL Cholesterol 32 L TSH 0.59 Urine Color Yellow Urine Appearance Clear Urine pH 6.0 Ur Specific [place] 1.010 Urine Protein Negative Urine Glucose (UA) Negative Urine Ketones Negative Urine Blood Negative Urine Nitrite Negative Ur Leukocyte Esterase Negative Influenza Type A (PCR) NEGATIVE Influenza Type B (PCR) NEGATIVE RSV RNA Qual (PCR) NEGATIVE SARS-CoV-2 RNA (RT-PCR) NEGATIVE Assessment and Plan (1) Acute CVA (cerebrovascular accident): Status: Acute (2) Generalized weakness: Status: Acute Plan 67 year old white male with PMH of CAD s/p PCI with stent placement, hypertension, CVA, COPD, and bipolar disorder here with 1. CVA - CT scan of the brain shows multiple new, age indeterminate hypodensities in the right frontal lobe, high right parietal lobe and right frontoparietal lobes concerning for infarctions. This is confirmed on MRI, to have neuro assessment, continue ASA, Plavix and Statin, PT/OT recommends STR 2. Asthenia--likely due to above, PT/OT as above 3. Hypertensive urgency, resolved, BP is within normal, would avoid aggresive lowering of BP in setting of acute stroke 4, CKD stage 3B - noted with increase serum creatinine to 3.8 - eGFR of 43 - closely monitor 5. Sacral bruise - secondary to a fall - monitor 6. CAD - s/pp PCI with stent placement - resume aspirin, plavix and PRN SL Nitroglycerine 7. Bipolar disorder - stable - continue Fluoxetine, Quetiapine, Lamotrigine and Bupropion 8. HLD--continue Statin, add finofibrate for high TG DVT: SC Lovenox CODE STATUS: Full code inpatient: management with acute stroke that need further management at rehab and awaiting placement Quality Stroke Does the patient have a stroke diagnosis?: Yes Reason for No Anti-thrombotic by Day Two: N/A - Med Ordered VTE Prior VTE?: No VTE Risk Level:: Medical - moderate - high VTE Device Contraindication: Treatment Not Indicated VTE Drug Contraindication: N/A - Med Ordered
--- NOTE | 2023-03-30 14:14 | PM.NEUROCN ---
History of Present Illness Data of Consult Service Date: 03/30/23 Primary Care Provider: Balaji Mayo MD [facility] Reason for consult: Weakness 67 year old white male with PMH as detailed below including history of CAD s/p PCI with stenting, hypertension, CVA, COPD, and bipolar disorder who lives at home alone who presents to the ED c/o generalized weakness with repeated episodes of falls. There was no witnessing of any seizure. He did not complain of any focal arm or leg weakness. There was no or recent cold or flu-like illness. Review of Systems Review of Systems: No trauma recent cold or flu-like illness PMFSH Past Medical History Medical History Multiple falls CAD (coronary artery disease) Schizoaffective disorder Peripheral arterial disease History of CVA (cerebrovascular accident) Bilateral carotid artery stenosis Stroke due to stenosis of carotid artery Arthritis Myocardial infarct Hypertension Family History Family History Father Heart disease Surgical History Surgical History H/O heart artery stent No significant past surgical history Social History Social History Household Members: None Housing: Apartment Do you presently have visiting nurse or other home services: No Alcohol intake: former Patient Tobacco Use Status: Current everyday Tobacco user Tobacco use type: Cigar Cigarettes Per Day: 4 Second Hand Smoke Exposure: No Advance Directives Date on File: 01/18/21 service: No Meds Allergies Allergy/AdvReac Type Severity Reaction Status Date / Time clozapine [From Clozaril] Allergy Unknown RASH Verified 01/26/23 15:28 hydroxyzine [From VISTARIL] Allergy Unknown UNKNOWN Verified 01/26/23 15:28 menthol [From Antihistamine] Allergy Unknown RASH Verified 01/26/23 15:28 nicotine [Nicotine] Allergy Unknown GUM- MAKES Verified 01/26/23 15:28 SICK TO STOMACH nut - unspecified [nut] Allergy Unknown SWELLING Verified 01/26/23 15:28 From Antihistamine Allergy Unknown RASH Uncoded 01/12/21 02:28 Active Medications: Current Medications Acetaminophen (Acetaminophen 325 Mg Tablet) 650 mg PO Q6H PRN PRN Reason: Pain, Mild (Pain Scale 1-3) Last Admin: 03/30/23 07:38 Dose: 650 mg Al Hydroxide/Mg Hydroxide (Magnesium Hydrox/Alum Hydrox 30 Ml Oral.Susp) 30 ml PO Q4H PRN PRN Reason: Heartburn/Nausea Aspirin (Aspirin Enteric Coated 81 Mg Tablet.Dr) 81 mg PO DAILY [facility] Last Admin: 03/30/23 07:41 Dose: 81 mg Atorvastatin Calcium (Atorvastatin Calcium 80 Mg Tablet) 80 mg PO BEDTIME [facility] Bupropion HCl (Bupropion Hcl Xl 300 Mg Tab.Er.24h) 300 mg PO DAILY [facility] Last Admin: 03/30/23 07:41 Dose: 300 mg Clopidogrel Bisulfate (Clopidogrel Bisulfate 75 Mg Tablet) 75 mg PO DAILY [facility] Last Admin: 03/30/23 07:42 Dose: 75 mg Docusate Sodium (Docusate Sodium 100 Mg Capsule) 100 mg PO BID [facility] Last Admin: 03/30/23 07:42 Dose: Not Given Enoxaparin Sodium (Enoxaparin Sodium 40 Mg/0.4 Ml Syringe) 40 mg SUBCUT Q24H [facility] Last Admin: 03/29/23 22:58 Dose: 40 mg Fluoxetine HCl (Fluoxetine Hcl 20 Mg Capsule) 40 mg PO DAILY [facility] Last Admin: 03/30/23 07:41 Dose: 40 mg Fluoxetine HCl (Fluoxetine Hcl 10 Mg Capsule) 10 mg PO DAILY [facility] Last Admin: 03/30/23 07:40 Dose: 10 mg Fluticasone Propionate (Fluticasone Propionate Nasal 16 Gm [place]) 1 spray NOSTRIL-B BID [facility] Last Admin: 03/30/23 12:16 Dose: Not Given Lamotrigine (Lamotrigine 100 Mg Tablet) 200 mg PO BID [facility] Last Admin: 03/30/23 07:39 Dose: 200 mg Lidocaine (Lidocaine 4 % Patch Adh..Patch) 1 patch TRANSDERMA DAILY PRN PRN Reason: Pain, Moderate(Pain Scale 4-6) Melatonin (Melatonin 3 Mg Tablet) 6 mg PO BEDTIME PRN PRN Reason: Insomnia Nitroglycerin (Nitroglycerin 0.4 Mg Tab.Subl) 0.4 mg SUBLINGUAL Q5MX3 PRN PRN Reason: chest pain Ondansetron HCl (Ondansetron Hcl 4 Mg/2 Ml Vial) 4 mg IVPUSH Q8H PRN PRN Reason: Nausea and Vomiting Quetiapine Fumarate (Quetiapine Fumarate 200 Mg Tablet) 200 mg PO BID [facility] Last Admin: 03/30/23 07:41 Dose: 200 mg Senna (Sennosides 8.6 Mg Tablet) 17.2 mg PO BEDTIME PRN PRN Reason: Constipation Sodium Chloride (0.9 % Sodium Chloride Flush 3 Ml Syringe) 3 ml IVFLUSH QSHIFT [facility] Last Admin: 03/30/23 07:42 Dose: 3 ml Trazodone HCl (Trazodone Hcl 100 Mg Tablet) 200 mg PO BEDTIME [facility] Home Medications Medication Instructions Recorded Confirmed Last Taken Type atorvastatin 80 mg tablet 1 tab PO BEDTIME 01/12/21 03/29/23 05/18/22 History bupropion HCl 150 mg tablet,12 hr 1 tab PO BID 01/12/21 03/29/23 05/19/22 09:00 History sustained-release clopidogrel 75 mg tablet 1 tab PO DAILY 01/12/21 03/29/23 05/19/22 09:00 History fluoxetine 40 mg capsule 1 cap PO DAILY 01/12/21 03/29/23 05/19/22 09:00 History lamotrigine 100 mg tablet 200 tab PO BID 01/12/21 03/29/23 05/19/22 09:00 History quetiapine 400 mg tablet,extended 1 tab PO BEDTIME 01/12/21 03/29/23 05/18/22 History release 24 hr trazodone 100 mg tablet 2 tab PO BEDTIME Insomnia 01/12/21 03/29/23 05/18/22 History aspirin 81 mg tablet,delayed 1 tab PO DAILY 11/03/21 03/29/23 05/19/22 09:00 History release fluticasone propionate 50 1 spray intranasal BID Allergy 11/03/21 03/29/23 Unknown History mcg/actuation nasal Symptoms spray,suspension acetaminophen 325 mg tablet 650 mg PO Q6H PRN Pain (Scale 03/29/23 03/29/23 Unknown History Score 1-3) lidocaine 5 % topical patch 1 patch topical DAILY PRN Pain 03/29/23 03/29/23 Unknown History sennosides 8.6 mg tablet (senna) 8.6 mg PO BEDTIME PRN Constipation 03/29/23 03/29/23 Unknown History Physical Exam Vital Signs: Vital Signs: Last Vital Signs Temp 98.1 F 03/30/23 11:14 Pulse 61 03/30/23 11:14 Resp 20 03/30/23 11:14 BP 98/71 03/30/23 11:14 Pulse Ox 98 03/30/23 11:14 O2 Del Method Room Air 03/30/23 11:14 BMI result Body Mass Index 28.8 Neuro: Other: Drowsy but able to open eyes in make an eye contact. He was able to answer simple questions. Face was symmetrical. Visual kim are full. There was no obvious focal arm or leg weakness. Deep tendon reflexes were absent with flexor plantars. Speech was normal. Results Labs 03/30/23 07:10 03/30/23 07:10 Labs: Short CBC 03/29/23 03/30/23 Range/Units 17:06 07:10 WBC 10.5 8.6 (4.8-10.8) X10*3/uL Hgb 12.5 L 13.1 L (14.0-18.0) g/dl Hct 39.2 L 39.6 L (42.0-52.0) % Plt Count 265 251 (160-400) X10*3/uL BMP 03/29/23 03/30/23 17:06 07:10 Sodium 140 141 Potassium 3.8 4.0 Chloride 107 107 Carbon Dioxide 27 27 BUN 20 H 17 H Creatinine 1.83 H 1.61 H Calcium 8.9 8.9 Liver Function 03/29/23 Range/Units 17:06 Total Bilirubin 0.5 (0.0-1.0) mg/dL Direct Bilirubin 0.2 (0.0-0.5) mg/dL AST 22 (5-37) U/L ALT 18 (0-40) U/L Alkaline Phosphatase 126 H (39-117) U/L Albumin 3.7 (3.5-5.0) g/dL Urine 03/29/23 Range/Units 23:01 Urine Color Yellow Urine Appearance Clear Urine pH 6.0 (5.0-9.0) Ur Specific [place] 1.010 (1.005-1.025) Urine Protein Negative (Neg-Trace) mg/dL Urine Glucose (UA) Negative (Negative) mg/dL Brain imaging with MRI revealed moderate to severe diffuse cerebral atrophy moderate to severe chronic microvascular ischemic changes and a subacute her right parieto-occipital wedge-shaped infarct. CTA revealed occluded right internal carotid artery. 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 His imaging revealed of wedge-shaped subacute right parieto-occipital infarct, which might not be noticeable or the deficit related to it might not be noticeable. This likely had happened from the carotid disease and relatively low blood pressure. It is important for him to maintain relatively high normal or maybe mi Nadine elevated blood pressure. Otherwise mainstay of management is anti-platelet agent statin combination. PT OT and appropriate placement is recommended because of significant underlying dementia. Procedures Date of Service Date of Service: 03/30/23
--- NOTE | 2023-03-30 15:32 | MHC.STROKE ---
I met with the patient to provide stroke education and reviewed his diagnosis with him, he is very withdrawn but was willing to talk. I explained that her had a recent stroke which could have been the cause of his falls. We discussed his carotid stenosis and hypotension. I am unsure if he is still on BP meds or if they were discontinued in November. He has multiple medications and could not give me an accurate history. I discussed his case with the RN Cheryl and Dr. Rosa and we are to avoid hypotension. He confirmed that he has been falling since Monday but couldn't confirm an onset time. PT/OT are recommending STR. I will continue to follow.
[2023-03-30] MEDS: traZODone HCL 100 MG TABLET 200 MG PO (20:38)
[2023-03-30] MEDS: Enoxaparin Sodium 40 MG/0.4 ML SYRINGE SUBCUT (20:39)
[2023-03-30] MEDS: Atorvastatin Calcium 80 MG TABLET PO (20:39)
[2023-03-31] VITALS (7 sets, daily range): BP systolic 90–149; BP diastolic 67–80; PULSE 59–83; RESP 16–20; TEMP 36.4–37.2; O2SAT 93–98
[2023-03-31] MEDS: lamoTRIgine 100 MG TABLET 200 MG PO ×2 (09:33→20:54)
[2023-03-31] MEDS: buPROPion HCl XL 300 MG TAB.ER.24H PO (09:33)
[2023-03-31] MEDS: Clopidogrel Bisulfate 75 MG TABLET PO (09:33)
[2023-03-31] MEDS: FLUoxetine HCl 20 MG CAPSULE 40 MG PO (09:33)
[2023-03-31] MEDS: FLUoxetine HCl 10 MG CAPSULE PO (09:33)
[2023-03-31] MEDS: QUEtiapine Fumarate 200 MG TABLET PO ×2 (09:33→20:55)
[2023-03-31] MEDS: Docusate Sodium 100 MG CAPSULE PO ×2 (09:33→20:55)
[2023-03-31] MEDS: Aspirin Enteric Coated 81 MG TABLET.DR PO (09:33)
[2023-03-31] MEDS: 0.9 % Sodium Chloride Flush 3 ML SYRINGE IVFLUSH ×3 (09:34→20:57)
--- NOTE | 2023-03-31 12:00 | PM.DS ---
DS: Providers Provider Date of Service: 04/01/23 Date of admission: 03/29/23 21:39 Primary care physician: Balaji Mayo MD Consults: 03/29/23 21:38 Consult to Neurology Routine Consulting Provider: [facility] Reason for consultation: CVA DS: Diagnosis Discharge Diagnosis (1) Acute CVA (cerebrovascular accident): Status: Acute DS: Summary Hospital Course Hospital Course: Chief Complaint: Generalized weakness and falls over the last 4 days Patient is a 67 year old white male with PMH as detailed below including history of CAD s/p PCI with stenting, hypertension, CVA, COPD, and bipolar disorder who lives at home alone who presents to the ED c/o generalized weakness with repeated episodes of falls. He describes 2 episodes where he was sitting on the edge of the bed and when he stood up, felt unsteady and fell striking his head and also 2 other similar episodes but this time happened when he tried to stand up from sitting on his director post. He also reports falling and landing on his buttocks and now has a tender bruise over his sacrum and a scrape on his left knee. He thinks he is falling because his legs are very weak. He denies any associated dizziness, chest pain, palpitations, visual or speech changes or focal/unilateral limb weakness. He is not sure if he lost consciousness when he fell. Today, his pantry worker from [facility] came by to visit him and after discussions with his home PT & OT providers, brought him to the emergency room for evaluation. Initial work up done in the ER was significant for finding of elevated blood pressure at 194/79 mmHg and blood work showing mild deterioration in his renal function with a new estimated eGFR of ~ 43. A CT scan of the brain done showed multiple new, age indeterminate hypodensities in the right frontal lobe, high right parietal lobe and right frontoparietal lobes concerning for infarctions. A brain MRI was recommended for further evaluation. Admission was therefore requested for further work up and Neurology evaluation. Hospital course: Patient presented with falls and weakness as stated above and work up with CT and MRI confirmed acute and subacute stroke (see report below) he was evaluated by the neurologist with the following remarks: His imaging revealed of wedge-shaped subacute right parieto-occipital infarct, which might not be noticeable or the deficit related to it might not be noticeable. This likely had happened from the carotid disease and relatively low blood pressure. It is important for him to maintain relatively high normal blood pressure. Otherwise mainstay of management is anti-platelet agent statin combination. PT OT and appropriate placement is recommended because of significant underlying dementia. His blood pressure is generally low and therefore not on any medicine, despite his initial blood pressures being very high. He is ASA, Plavix and Lipitor. He was evaluated by PT with recommendation for short term rehab which he's agreeable to for less than 30 day Time Attestation Discharge coordination time: Greater than 30 minutes Quality: Safe Use of Opioids Does Pt have an Active Cancer Diagnosis on the Problem List?: No Quality: Stroke Does the patient have a stroke diagnosis?: Yes Reason for No Anti-thrombotic at DC: N/A - Med Ordered Reason for No Anticoagulant at DC: Drug treatment not indicated Reason Not Initiating IV-Tpa: Drug treatment not indicated Reason for No Anti-thrombotic by Day Two: N/A - Med Ordered Reason for No Statin at DC: N/A - Med Ordered Physical Exam Vital Signs: Vital Signs: Selected Entries 04/01/23 08:00 Temperature 98.6 F Pulse Rate 58 Respiratory Rate 20 Blood Pressure 107/65 Pulse Oximetry 98 Oxygen Delivery Me thod Room Air Const: Other: General: AO X 3, no acute distress Resp: CTA bilateral CVS: S1,S2,RRR GI: +BS, NT, no distention Skin: No rash Neuro: motor grossly intact, no new focal deficit, generally unsteady on feet Psych: appropriate affect DS: Data Imaging CT scan - head: Radiologist's impression: ITS Impressions Chest X-Ray 03/29/23 16:07 IMPRESSION: No evidence for acute disease in the chest. Head CT 03/29/23 17:56 IMPRESSION: 1. Multiple new age indeterminate hypodensities that could represent infarctions, compared to most recent prior CT head from 11/22/2022. Recommend further evaluation with an MRI of the brain. 2. No evidence of intracranial hemorrhage or edematous mass effect. This critical result was discussed with KVNG Stephens at 03/29/2023 6:55 PM and it was ascertained that the content and urgency of the report was understood at the time of direct communication. Carotid Doppler Study 03/29/23 22:24 IMPRESSION: 1. 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 2. LEFT: Mildly increased velocity in the proximal internal carotid artery likely compensatory for contralateral occlusion. Using a threshold velocity of 140 cm/s in the setting of contralateral occlusion, stenosis is in the 0-49% category. 3. There is no change in the category severity of disease when compared to the previous study dated 07/21/2021. Brain MRI 03/30/23 12:05 IMPRESSION: 1. There are areas of acute/subacute infarction in the right frontoparietal region, right parieto-occipital region, in the left centrum semiovale and in the left caudate head. There is no evidence of hemorrhagic transformation. 2. There is diffuse volume loss and there are chronic microvascular ischemic changes and sequelae of chronic infarcts. Discharge Plan Discharge Anticipated Discharge Date/Time: 04/01/23 09:06 Patient Disposition: Home Health Service Discharge Diagnosis: Acute stroke, Hypertension urgency Referrals: Balaji Mayo MD [Primary Care Provider] - 1 Week Discharge Medications: Continued fluoxetine 40 mg capsule 1 cap PO DAILY Rx Instructions: take with 10mg; total dose 50mg bupropion HCl 150 mg tablet sustained-release 12 hr 1 tab PO BID atorvastatin 80 mg tablet 1 tab PO BEDTIME clopidogrel 75 mg tablet 1 tab PO DAILY trazodone 100 mg tablet 2 tab PO BEDTIME lamotrigine 100 mg tablet 200 tab PO BID quetiapine 400 mg tablet extended release 24 hr 1 tab PO BEDTIME aspirin 81 mg tablet,delayed release (DR/EC) 1 tab PO DAILY fluticasone propionate 50 mcg/actuation [place],Suspension 1 spray INTRANASAL BID Rx Instructions: administer into each nostril nitroglycerin 0.4 mg tablet, sublingual 0.4 mg sublingual Q5M PRN (Reason: chest pain) Qty: 1 0RF Rx Instructions: do not exceed 3 doses per episode sennosides [senna] 8.6 mg Tablet 8.6 mg PO BEDTIME PRN (Reason: Constipation) acetaminophen 325 mg Tablet 650 mg PO Q6H PRN (Reason: Pain (Scale Score 1-3)) lidocaine 5 % Adhesive Patch,Medicated 1 patch TOPICAL DAILY PRN (Reason: Pain) Rx Instructions: leave on most painful area for up to 12 hrs Discharge Orders: Discharge Order (Routine); Ordered 04/01/23 Ordered By: Faustino Tellez Diet: Advance to usual diet Activity on Discharge: As tolerated Stand Alone Forms: Patient Portal Discharge page Care Plan Goals: The goal is to recover from stroke, prevent falls, and prevent future strokes. Health Concerns: stroke, fall Plan of Treatment: Continue taking all your medication as prescribed and follow up with your doctor in one week. You should use a walker for all walking activities. You will be going to short-term rehabilitation for less than 30 days. Assessment: see above
--- NOTE | 2023-03-31 13:32 | P.PNIM_ITS ---
Subjective Subjective Date of Service: 03/31/23 Interval History: f/u on acute CVA, feels stronger today, he was declining rehab, he is now agreeable. Physical Exam 2 Vital Signs: Vital Signs: Last Vital Signs Temp 98.2 F 03/31/23 10:58 Pulse 83 03/31/23 10:58 Resp 20 03/31/23 10:58 BP 94/67 03/31/23 10:58 Pulse Ox 93 03/31/23 10:58 O2 Del Method Room Air 03/31/23 10:58 BMI result Body Mass Index 28.8 Const: Other: General: AO X 3, no acute distress Resp: CTA bilateral CVS: S1,S2,RRR GI: +BS, NT, no distention Skin: No rash Neuro: motor grossly intact, no new focal deficit, generally unsteady on feet Psych: appropriate affect Objective Data Active Medications Acetaminophen (Acetaminophen 325 Mg Tablet) 650 mg PO Q6H PRN PRN Reason: Pain, Mild (Pain Scale 1-3) Last Admin: 03/30/23 07:38 Dose: 650 mg Documented By: JOE Al Hydroxide/Mg Hydroxide (Magnesium Hydrox/Alum Hydrox 30 Ml Oral.Susp) 30 ml PO Q4H PRN PRN Reason: Heartburn/Nausea Aspirin (Aspirin Enteric Coated 81 Mg Tablet.) 81 mg PO DAILY [facility] Last Admin: 03/31/23 09:33 Dose: 81 mg Documented By: RODRIGO Atorvastatin Calcium (Atorvastatin Calcium 80 Mg Tablet) 80 mg PO BEDTIME [facility] Last Admin: 03/30/23 20:39 Dose: 80 mg Documented By: OTONIEL Bupropion HCl (Bupropion Hcl Xl 300 Mg Tab.Er.24h) 300 mg PO DAILY [facility] Last Admin: 03/31/23 09:33 Dose: 300 mg Documented By: RODRIGO Clopidogrel Bisulfate (Clopidogrel Bisulfate 75 Mg Tablet) 75 mg PO DAILY [facility] Last Admin: 03/31/23 09:33 Dose: 75 mg Documented By: RODRIGO Docusate Sodium (Docusate Sodium 100 Mg Capsule) 100 mg PO BID [facility] Last Admin: 03/31/23 09:33 Dose: 100 mg Documented By: RODRIGO Enoxaparin Sodium (Enoxaparin Sodium 40 Mg/0.4 Ml Syringe) 40 mg SUBCUT Q24H [facility] Last Admin: 03/30/23 20:39 Dose: 40 mg Documented By: OTONIEL Fluoxetine HCl (Fluoxetine Hcl 20 Mg Capsule) 40 mg PO DAILY [facility] Last Admin: 03/31/23 09:33 Dose: 40 mg Documented By: RODRIGO Fluoxetine HCl (Fluoxetine Hcl 10 Mg Capsule) 10 mg PO DAILY [facility] Last Admin: 03/31/23 09:33 Dose: 10 mg Documented By: RODRIGO Fluticasone Propionate (Fluticasone Propionate Nasal 16 Gm [place]) 1 spray NOSTRIL-B BID [facility] Last Admin: 03/31/23 09:34 Dose: Not Given Documented By: RODRIGO Non-Admin Reason: Patient Refused Lamotrigine (Lamotrigine 100 Mg Tablet) 200 mg PO BID [facility] Last Admin: 03/31/23 09:33 Dose: 200 mg Documented By: RODRIGO Lidocaine (Lidocaine 4 % Patch Adh..Patch) 1 patch TRANSDERMA DAILY PRN PRN Reason: Pain, Moderate(Pain Scale 4-6) Melatonin (Melatonin 3 Mg Tablet) 6 mg PO BEDTIME PRN PRN Reason: Insomnia Nitroglycerin (Nitroglycerin 0.4 Mg Tab.Subl) 0.4 mg SUBLINGUAL Q5MX3 PRN PRN Reason: chest pain Ondansetron HCl (Ondansetron Hcl 4 Mg/2 Ml Vial) 4 mg IVPUSH Q8H PRN PRN Reason: Nausea and Vomiting Quetiapine Fumarate (Quetiapine Fumarate 200 Mg Tablet) 200 mg PO BID [facility] Last Admin: 03/31/23 09:33 Dose: 200 mg Documented By: RODRIGO Senna (Sennosides 8.6 Mg Tablet) 17.2 mg PO BEDTIME PRN PRN Reason: Constipation Sodium Chloride (0.9 % Sodium Chloride Flush 3 Ml Syringe) 3 ml IVFLUSH QSHIFT [facility] Last Admin: 03/31/23 09:34 Dose: 3 ml Documented By: RODRIGO Trazodone HCl (Trazodone Hcl 100 Mg Tablet) 200 mg PO BEDTIME [facility] Last Admin: 03/30/23 20:38 Dose: 200 mg Documented By: OTONIEL Labs 03/30/23 07:10 03/30/23 07:10 Assessment and Plan (1) Acute CVA (cerebrovascular accident): Status: Acute Plan 67 year old white male with PMH of CAD s/p PCI with stent placement, hypertension, CVA, COPD, and bipolar disorder here with 1. CVA-- Seen on both CT scan and MRI. Neurology recommend antiplatelet, statin, blood pressure control and Rehab. Continue ASA, Plavix and statin. STR per PT/OT 2. Asthenia--likely due to above, PT/OT assessment as above 3. Hypertensive urgency, resolved, BP is within normal, would avoid aggresive lowering of BP in setting of acute stroke 4, CKD stage 3B - noted with increase serum creatinine to 3.8 - eGFR of 43 - closely monitor 5. Sacral bruise - secondary to a fall - monitor 6. CAD - s/pp PCI with stent placement - continue aspirin, plavix and PRN SL Nitroglycerine 7. Bipolar disorder - stable - continue Fluoxetine, Quetiapine, Lamotrigine and Bupropion 8. HLD--continue Statin, add finofibrate for high TG DVT: SC Lovenox CODE STATUS: Full code inpatient: management with acute stroke that need further management at rehab and awaiting placement To STR tomorrow Quality Stroke Does the patient have a stroke diagnosis?: Yes Reason for No Anti-thrombotic by Day Two: N/A - Med Ordered VTE Prior VTE?: No VTE Risk Level:: Medical - moderate - high VTE Device Contraindication: Treatment Not Indicated VTE Drug Contraindication: N/A - Med Ordered
--- NOTE | 2023-03-31 13:56 | MHC.CM.PN ---
Pt has agreed to go to STR when he is medically cleared for DC. Initially he refused to go to rehab., PT sudheeral recommended STR. CM spoke with pt., nurse and staff at [facility] where he receives supportive services. After discussing it with his [facility] staff, pt agreed to the STR. Referrals were made and pt has been accepted and he agrees to go to [facility]. DC is for him to go there on 04/01/23.
[2023-03-31] MEDS: Atorvastatin Calcium 80 MG TABLET PO (20:55)
[2023-03-31] MEDS: traZODone HCL 100 MG TABLET 200 MG PO (20:55)
[2023-03-31] MEDS: Enoxaparin Sodium 40 MG/0.4 ML SYRINGE SUBCUT (20:55)
[2023-04-01] VITALS: BP 93/65; PULSE 62; RESP 20; TEMP 36.1; O2SAT 97
[2023-04-01 04:00] VITALS: BP 147/69; PULSE 61; RESP 20; TEMP 36.1; O2SAT 96
[2023-04-01 08:00] VITALS: BP 107/65; PULSE 58; RESP 20; TEMP 37; O2SAT 98
[2023-04-01] MEDS: QUEtiapine Fumarate 200 MG TABLET PO (09:16)
[2023-04-01] MEDS: Clopidogrel Bisulfate 75 MG TABLET PO (09:16)
[2023-04-01] MEDS: lamoTRIgine 100 MG TABLET 200 MG PO (09:16)
[2023-04-01] MEDS: Docusate Sodium 100 MG CAPSULE PO (09:16)
[2023-04-01] MEDS: Aspirin Enteric Coated 81 MG TABLET.DR PO (09:16)
[2023-04-01] MEDS: FLUoxetine HCl 10 MG CAPSULE PO (09:16)
[2023-04-01] MEDS: FLUoxetine HCl 20 MG CAPSULE 40 MG PO (09:16)
[2023-04-01] MEDS: buPROPion HCl XL 300 MG TAB.ER.24H PO (09:16)
[2023-04-01] MEDS: 0.9 % Sodium Chloride Flush 3 ML SYRINGE IVFLUSH (09:17)
--- NOTE | 2023-04-01 10:19 | MHC.CM.PN ---
Pt is medically cleared for D/C to STR at [facility] today. Transport booked via [facility] at 11am.
== END 2023-04-01 12:20 | disposition home health service (06) | DRG 65 ==
LOC: HO.ED 19:31 → HO.EDOVER 21:53 → HO.IMC 03-30 03:09
PROVIDERS: Physician Assistant Medical; Admitting Provider Internal Medicine; Emergency Provider Emergency Medicine; PCP Family Medicine; Visit Provider Internal Medicine
DX: I63.231 Cerebral infarction due to unspecified occlusion or stenosis of right carotid arteries (principal); I16.1 Hypertensive emergency; I25.10 Atherosclerotic heart disease of native coronary artery without angina pectoris; I12.9 Hypertensive chronic kidney disease with stage 1 through stage 4 chronic kidney disease, or unspecified chronic kidney disease; N18.32 Chronic kidney disease, stage 3b; R53.1 Weakness; F17.210 Nicotine dependence, cigarettes, uncomplicated; J44.9 Chronic obstructive pulmonary disease, unspecified; F31.9 Bipolar disorder, unspecified; Z71.6 Tobacco abuse counseling; Z20.822 Contact with and (suspected) exposure to COVID-19; Z95.5 Presence of coronary angioplasty implant and graft; Z79.02 Long term (current) use of antithrombotics/antiplatelets; Z79.82 Long term (current) use of aspirin; Z79.899 Other long term (current) drug therapy
CPT/HCPCS: 0241U; 36415; 70450; 70551; 71046; 80048; 80061; 80076; 81003; 83735; 84443; 84484; 85025; 85027; 85610; 90686; 93005; 93306; 93356; 93880; 97116; 97162; 97166; 97535; 99285; J1650; Q9957

== ENCOUNTER → 2023-03-29 15:51 | Outpatient (BNV) | payer MEDICARE, SELFPAY | PROVIDERS: Admitting Provider Internal Medicine; Emergency Provider Emergency Medicine; PCP Family Medicine; Visit Provider Internal Medicine | DX: R00.1 Bradycardia, unspecified (principal) | CPT/HCPCS: 93010 ==

== ENCOUNTER 2023-03-29 21:39 | Outpatient (BNV) | payer MEDICARE, MEDICAID, SELFPAY | END 2023-03-30 07:00 | PROVIDERS: Admitting Provider Internal Medicine; Emergency Provider Emergency Medicine; PCP Family Medicine; Visit Provider Internal Medicine | DX: I35.8 Other nonrheumatic aortic valve disorders (principal) | CPT/HCPCS: 93306 ==

== ENCOUNTER → 2023-03-29 21:39 | Outpatient (BNV) | payer MEDICARE, MEDICAID, SELFPAY | PROVIDERS: Admitting Provider Internal Medicine; Emergency Provider Emergency Medicine; PCP Family Medicine; Visit Provider Internal Medicine | DX: I63.9 Cerebral infarction, unspecified (principal); R53.1 Weakness; I16.1 Hypertensive emergency; N18.32 Chronic kidney disease, stage 3b; R26.81 Unsteadiness on feet; R29.6 Repeated falls | CPT/HCPCS: 99223; 99232; 99239; 99499 ==

== ENCOUNTER 2023-07-23 15:59 | Emergency (ER) | payer OTHER, SELFPAY ==
--- NOTE | ~2023-07-23 | XR_ITS ---
EXAMINATION: LEFT SHOULDER, PELVIS AND LEFT HIP CLINICAL INFORMATION: Fall with pain COMPARISON: Left hip 05/19/2022, left shoulder 11/22/2022, CT lumbar spine 06/19/2022, CT abdomen pelvis 11/03/2021 TECHNIQUE: 3 views left shoulder, single view pelvis with 2 additional views left hip FINDINGS: The pelvis and visualized hips are unremarkable aside from some minimal degenerative changes. No acute fractures or dislocations are seen. An infrarenal abdominal aortic aneurysm is present which measures almost 6.3 cm, increased in size when compared with the most recent CT exam of the lumbar spine where this measured 4.9 cm. Some minimal degenerative changes are seen in the shoulder with some mild sclerotic changes at the inferior glenoid and some tiny osteophytes. Some mild degenerative changes are also seen at the AC joint. No rotator cuff calcifications. No fractures or dislocations are seen. XR/XR hip LT w PEL1V IMPRESSION: 1. No evidence of an acute osseous injury. 2. Infrarenal abdominal aortic aneurysm measuring 6.3 cm, increased in size when compared with the most recent CT exam of the lumbar spine when measurements were 4.9 cm.
--- NOTE | ~2023-07-23 | CT_ITS ---
EXAMINATION: CT CERVICAL SPINE WITHOUT CONTRAST; UNENHANCED CT OF THE HEAD. CLINICAL INFORMATION: Fall. Head strike. Neck pain. COMPARISON: MRI brain 03/30/2023. CT head 03/29/2023. TECHNIQUE: Routine unenhanced CT of the head with multiple coronal and sagittal reformatted images; routine unenhanced CT of the cervical spine with multiple coronal and sagittal reformatted images. This CT examination was performed using dose optimization techniques as appropriate, variously including the following: *Automated exposure control *Adjustment of mA and/or kV according to patient size (this includes techniques or standardized protocols for targeted exams where dose is matched to indication/reason for exam; i.e. extremities or head) *Use of iterative reconstruction technique DLP: 1149 mGy-cm FINDINGS: CT head: Calcific plaques are noted in the intradural segments of the vertebral arteries and cavernous portions of the internal carotid arteries. No intercranial hemorrhage or definitive acute infarcts noted. Scattered sulcal punctate calcifications are again noted and may represent chronic vascular related calcifications. Focal cortical and subcortical encephalomalacia is present in the right frontoparietal region consistent with chronic ischemic changes. Elsewhere, moderate diffuse commensurate prominence of the ventricles and sulci is visualized. Mild-moderate atrophy subcortical and periventricular white matter hypodensities are visualized and have the appearance of chronic microangiopathic ischemic changes. A right ocular lens replacement is noted. No significant opacification of the visualized paranasal sinuses, mastoid air cells and middle ear cavities. CT cervical spine: No fractures or acute appearing subluxations identified. Moderate intervertebral disc space narrowing and moderate posterior broad-based disc-osteophyte complex C5-C6. Similar findings to a lesser degree are present at C6-C7. Partial visualization is made of a posterior broad-based disc bulge at C2-C3 with partial annular calcification. Mild multilevel facet hypertrophic changes are visualized. The visualized lung apices are clear. No prevertebral fluid collections or soft tissue inflammatory changes noted. Dense bilateral carotid bulb calcific atherosclerotic plaques identified. CT/CT cervical spine wo IV con IMPRESSION: CT HEAD: 1. No acute abnormalities. No intracranial hemorrhage or definitive acute infarcts. 2. Chronic right frontoparietal infarct. 3. Moderate white matter chronic microangiopathic ischemic changes. CT CERVICAL SPINE: 1. No acute abnormalities. 2. Multilevel chronic spondylosis. 3. Dense bilateral carotid bulb calcific atherosclerotic plaques.
--- NOTE | ~2023-07-23 | XR_ITS ---
EXAMINATION: LEFT SHOULDER, PELVIS AND LEFT HIP CLINICAL INFORMATION: Fall with pain COMPARISON: Left hip 05/19/2022, left shoulder 11/22/2022, CT lumbar spine 06/19/2022, CT abdomen pelvis 11/03/2021 TECHNIQUE: 3 views left shoulder, single view pelvis with 2 additional views left hip FINDINGS: The pelvis and visualized hips are unremarkable aside from some minimal degenerative changes. No acute fractures or dislocations are seen. An infrarenal abdominal aortic aneurysm is present which measures almost 6.3 cm, increased in size when compared with the most recent CT exam of the lumbar spine where this measured 4.9 cm. Some minimal degenerative changes are seen in the shoulder with some mild sclerotic changes at the inferior glenoid and some tiny osteophytes. Some mild degenerative changes are also seen at the AC joint. No rotator cuff calcifications. No fractures or dislocations are seen. XR/XR shoulder LT min 2V IMPRESSION: 1. No evidence of an acute osseous injury. 2. Infrarenal abdominal aortic aneurysm measuring 6.3 cm, increased in size when compared with the most recent CT exam of the lumbar spine when measurements were 4.9 cm.
--- NOTE | ~2023-07-23 | XR_ITS ---
EXAMINATION: XR CHEST CLINICAL INFORMATION: Shortness of breath COMPARISON: 03/29/2023 TECHNIQUE: Frontal view of the chest was obtained. FINDINGS: No significant abnormality is noted involving the heart, lungs, mediastinum, bony thorax or soft tissues. XR/XR chest 1V IMPRESSION: Unremarkable examination.
[2023-07-23 16:04] VITALS: BP 106/73; PULSE 83; RESP 18; TEMP 36.9; O2SAT 95
--- NOTE | 2023-07-23 16:04 | ECG_ITS ---
Test Reason : WEAKNESS Blood Pressure : / mmHG Vent. Rate : 083 BPM Atrial Rate : 083 BPM P-R Int : 168 ms QRS Dur : 088 ms QT Int : 398 ms P-R-T Axes : 028 -25 018 degrees QTc Int : 467 ms Normal sinus rhythm Cannot rule out Anterior infarct , age undetermined Abnormal ECG When compared with ECG of 29-MAR-2023 16:59, No significant change was found Referred By: Generic ED Physician Electronically Signed By:JULIOCESAR HAILE MD
[2023-07-23 16:08] VITALS: BP 106/73; BP 117/85; PULSE 82; PULSE 86; RESP 16; TEMP 36.9; O2SAT 96; BMI 31.3
[2023-07-23 16:16] LABS: Glucose, Whole Blood 107 mg/dL (60-115)
[2023-07-23 16:28] LABS: MANUAL DIFF FLAG NO
[2023-07-23 16:29] LABS: Basophils Absolute Auto 0.1 X10*3/uL (0.0-0.2); Eosinophils Absolute Auto 0.6 X10*3/uL (0.0-0.4); Eosinophils Percent Auto 4.7 % (0-4); Hematocrit 37.3 % (42.0-52.0); Hemoglobin 12.3 g/dl (14.0-18.0); Imm Gran Abs Auto 0.03 X10*3/uL (0.00-0.03); Imm Gran Pct Auto 0.3 % (0.0-0.4); Lymphocytes Absolute Auto 2.1 X10*3/uL (1.2-4.9); Mean Corpuscular Hemoglobin 28.7 pg (27.0-33.0); Mean Corpuscular Volume 87.1 fL (80.0-98.0); Mean Platelet Volume 10.4 fL (9.4-12.4); Monocytes Absolute Auto 0.8 X10*3/uL (0.1-1.2); Monocytes Percent Auto 6.9 % (2-11); Neutrophils Absolute Auto 8.1 x10*3/uL (2.0-8.3); Neutrophils Percent Auto 69.1 % (45-73); Platelet Count 215 X10*3/uL (160-400); Red Blood Count 4.28 X10*6/uL (4.60-5.80); White Blood Count 11.8 X10*3/uL (4.8-10.8)
[2023-07-23 16:45] LABS: Alanine Aminotransferase 19 U/L (0-40); Albumin Level 3.4 g/dL (3.5-5.0); Alkaline Phosphatase 119 U/L (39-117); Anion Gap 11 (12-20); Aspartate Amino Transferase 18 U/L (5-37); Bilirubin Total 0.3 mg/dL (0.0-1.0); Blood Urea Nitrogen 27 mg/dL (9-16); Calcium 8.5 mg/dL (8.4-10.2); Carbon Dioxide 24 mmol/L (22-29); Chloride 108 mmol/L (96-108); Estimated Glomerular Filt Rate 38; Glucose Random 115 mg/dL (60-115); Potassium 3.9 mmol/L (3.3-5.1); Sodium 139 mmol/L (135-145); Total Protein 6.6 g/dL (6.5-8.0)
[2023-07-23 16:59] LABS: Troponin-I High Sensitivity < 2.7 ng/L (<3.5-35.0)
--- NOTE | 2023-07-23 17:01 | ED.WEAKNESS ---
HPI - Weakness General Chief complaint: Weakness Stated complaint: weakness,confusion,diaphoretic Time Seen by Provider: 07/23/23 16:49 Source: patient Mode of arrival: ambulatory Limitations: no limitations History of Present Illness HPI Narrative: This is a 68-year-old male history of CKD, MO, CVA, coronary artery disease, unstable angina, weakness presenting to the emergency department for complaints of fall, patient reports he fell prior to arrival, he states he got caught on something, he does not think he hit his head and does not think he lost consciousness. He tells me he was able to get up from the ground on his own. He reports afterwards he was feeling ?weak? and his neighbor stated that he was sweaty and pale. He tells me he feels fine and he does not think he needs to be here. Denies preceding symptoms to fall such as chest pain, shortness of breath, nausea, vomiting, dizziness or visual disturbances. He does report that he is having slight left hip pain and left shoulder pain however he tells me he has pain to his left hip and shoulder at baseline this is not new. Alert and oriented x4 NIH stroke scale 0 GCS 15 Related Data Home Medications Medication Instructions Recorded Confirmed atorvastatin 80 mg tablet 1 tab PO BEDTIME 01/12/21 03/29/23 bupropion HCl 150 mg tablet,12 hr 1 tab PO BID 01/12/21 03/29/23 sustained-release clopidogrel 75 mg tablet 1 tab PO DAILY 01/12/21 03/29/23 fluoxetine 40 mg capsule 1 cap PO DAILY 01/12/21 03/29/23 lamotrigine 100 mg tablet 200 tab PO BID 01/12/21 03/29/23 quetiapine 400 mg tablet,extended 1 tab PO BEDTIME 01/12/21 03/29/23 release 24 hr trazodone 100 mg tablet 2 tab PO BEDTIME Insomnia 01/12/21 03/29/23 aspirin 81 mg tablet,delayed 1 tab PO DAILY 11/03/21 03/29/23 release fluticasone propionate 50 1 spray intranasal BID Allergy 11/03/21 03/29/23 mcg/actuation nasal Symptoms spray,suspension acetaminophen 325 mg tablet 650 mg PO Q6H PRN Pain (Scale 03/29/23 03/29/23 Score 1-3) lidocaine 5 % topical patch 1 patch topical DAILY PRN Pain 03/29/23 03/29/23 sennosides 8.6 mg tablet (senna) 8.6 mg PO BEDTIME PRN Constipation 03/29/23 03/29/23 Previous Rx's Medication Instructions Recorded nitroglycerin 0.4 mg sublingual 0.4 mg sublingual Q5M PRN chest 09/12/22 tablet pain #1 tab acetaminophen 325 mg capsule 325 mg PO Q4H PRN pain #30 caps 07/23/23 (Tylenol) Allergies Allergy/AdvReac Type Severity Reaction Status Date / Time clozapine [From Clozaril] Allergy Unknown RASH Verified 01/26/23 15:28 hydroxyzine [From VISTARIL] Allergy Unknown UNKNOWN Verified 01/26/23 15:28 menthol [From Antihistamine] Allergy Unknown RASH Verified 01/26/23 15:28 nicotine [Nicotine] Allergy Unknown GUM- MAKES Verified 01/26/23 15:28 SICK TO STOMACH nut - unspecified [nut] Allergy Unknown SWELLING Verified 01/26/23 15:28 From Antihistamine Allergy Unknown RASH Uncoded 01/12/21 02:28 Review of Systems Review of Systems: Yes all other systems are reviewed and are negative [facility] Past Medical History Attestation statement: The following information was validated with the patient. Source: old records reviewed and nursing notes reviewed Medical History (Updated 07/23/23 @ 20:24 by KVNG Radford) Stage 3b chronic kidney disease Multiple falls CAD (coronary artery disease) Schizoaffective disorder Peripheral arterial disease History of CVA (cerebrovascular accident) Bilateral carotid artery stenosis Stroke due to stenosis of carotid artery Arthritis Myocardial infarct Hypertension Surgical History H/O heart artery stent No significant past surgical history Family History Family History Father Heart disease Social History Social History Household Members: None Housing: Apartment Do you presently have visiting nurse or other home services: No Alcohol intake: former Patient Tobacco Use Status: Current everyday Tobacco user Tobacco use type: Cigar Cigarettes Per Day: 4 Smoked in Last 30 Days: Yes Second Hand Smoke Exposure: No Use of substances other than those prescribed or required for medical reasons: No Advance Directives: Yes Advance Directives on File: Yes Advance Directives Date on File: 01/18/21 service: No Physical Exam Vital Signs: Vital Signs: Last Vital Signs Temp 98.5 F 07/23/23 16:08 Pulse 83 07/23/23 18:44 Resp 14 07/23/23 18:44 BP 119/88 07/23/23 18:44 Pulse Ox 99 07/23/23 18:44 O2 Del Method Room Air 07/23/23 18:44 BMI result Body Mass Index 31.3 vss Appearance: Alert.? Oriented X3.? No acute distress.? Head: Normocephalic, atraumatic, no step-offs or deformities Eyes: Pupils equal, round and reactive to light.? ENT: Pharynx normal.? Neck: Normal inspection.? Neck supple.? CVS: Normal heart rate and rhythm.? Pulses normal.? Respiratory: No respiratory distress.? Breath sounds normal.? Abdomen: Soft and nontender.? Skin: Skin warm and dry.? Normal skin color.? Normal skin turgor.? Extremities: No lower extremity edema.? No calf ttp. 5/5 strength to bilateral upper and lower extremities + Full rom to b/l hips, knees, shoulders, elbows. Neuro: Oriented X 3.? No motor deficit.? No sensory deficit. CN 2-12 intact . Negative Romberg and pronator drift. Course Reevaluation(s) Reevaluation #1: CBC with leukocytosis, no left shift I do not suspect infection, this is likely reactive to fall. Chemistry unremarkable, it appears to be around his baseline with an acute kidney injury. Troponin negative, CPK normal. UA without infection. Flu/covid/rsv negative. Time: 19:30 Reevaluation #2: CT head with no acute abnormalities. No intracranial hemorrhage or definitive acute infarcts. Chronic right frontal parietal infarct. Moderate white matter chronic microangiopathic ischemic changes. No acute abnormalities and cervical spine. No fractures or dislocations or traumatic subluxations. X-ray of left shoulder no evidence of osseous injury. Infrarenal abdominal aortic aneurysm measuring 6.3 cm increased when compared to recent CT of 4.9 cm. No significant findings in the left hip. Chest x-ray unremarkable. Tylenol will be given for pain. Patient has been ambulating around the department without difficulty. He lives at home he has a [employer] and visiting nurses. Patient feels comfortable going home. Does not want physical therapy and case management. no indication for admission Time: 20:00 Reevaluation #3: I did discuss the increase in size of infrarenal aortic aneurysm with vascular Dr. Butterfield who recommends outpatient follow-up. As patient is not complaining of abdominal pain. Will give him all the information to follow up with him outpatient. Educated patient on diagnosis and treatment plan, answered all question, patient verbalizes understanding. At this time patient will be discharged home, advised to return with new or worsening symptoms. Educated on worrisome signs and symptoms and when to return. At this time I feel comfortable discharge home. Time: 20:21 Medical Decision Making Medical Decision Making [facility] Narrative: 1700 68-year-old male presents with weakness, reports he fell he was able to get up however neighbors wanted him to come in to get seen due to weakness, sweating. No head strike or LOC. PE- benign NIHSS-0, GCS-15 L shoulder and hip pain likely contusion vs sprain or strain. Unlikley fx/ dislocation, NV compromise or threat to limb. Unlikley ICH, stroke, posterior stroke. No signs of truama to chest, abd or pelvis. Will rule out orthostatic hypotension, electrolyte abnormalities, UTI. I do not suspect acs/pe/disection. Will rule out rhabdo Plan- labs, imaging, urine Differential Diagnosis Differential Diagnoses: The differential diagnosis associated with the presentation includes L shoulder and hip pain likely contusion vs sprain or strain. Unlikley fx/ dislocation, NV compromise or threat to limb. Unlikley ICH, stroke, posterior stroke. No signs of truama to chest, abd or pelvis. Will rule out orthostatic hypotension, electrolyte abnormalities, UTI. I do not suspect acs/pe/disection. Will rule out rhabdo Admission/Observation Consideration of admission/observation: Escalation of care including admission/observation considered Lab Data [facility] Lab Attestation statement: I reviewed the patient's lab results. 07/23/23 16:24 07/23/23 16:24 Labs: Lab Results 07/23/23 07/23/23 07/23/23 Range/Units 16:07 16:24 18:42 WBC 11.8 H (4.8-10.8) X10*3/uL RBC 4.28 L (4.60-5.80) X10*6/uL Hgb 12.3 L (14.0-18.0) g/dl Hct 37.3 L (42.0-52.0) % MCV 87.1 (80.0-98.0) fL MCH 28.7 (27.0-33.0) pg MCHC 33.0 (31.0-36.0) g/dl RDW 15.0 (11.0-16.0) % Plt Count 215 (160-400) X10*3/uL MPV 10.4 (9.4-12.4) fL Immature Gran % (Auto) 0.3 (0.0-0.4) % Neut % (Auto) 69.1 (45-73) % Lymph % (Auto) 18.0 L (20-40) % [place] % (Auto) 6.9 (2-11) % Eos % (Auto) 4.7 H (0-4) % Baso % (Auto) 1.0 (0-2) % Lymph # (Auto) 2.1 (1.2-4.9) X10*3/uL [place] # (Auto) 0.8 (0.1-1.2) X10*3/uL Eos # (Auto) 0.6 H (0.0-0.4) X10*3/uL Baso # (Auto) 0.1 (0.0-0.2) X10*3/uL Abs Immat Gran (auto) 0.03 (0.00-0.03) X10*3/uL Absolute Neuts (auto) 8.1 (2.0-8.3) x10*3/uL Absolute Nucleated RBC 0.000 (0.0-0.012) X10*3/uL Nucleated RBC % (auto) 0.0 (0.0-0.2) /100WBC Sodium 139 (135-145) mmol/L Potassium 3.9 (3.3-5.1) mmol/L Chloride 108 (96-108) mmol/L Carbon Dioxide 24 (22-29) mmol/L Anion Gap 11 L (12-20) BUN 27 H (9-16) mg/dL Creatinine 1.79 H (0.5-1.4) mg/dL Estim Creat Clear Calc 43.0 Estimated GFR 38 POC Glucose 107 (60-115) mg/dL Random Glucose 115 (60-115) mg/dL Calcium 8.5 (8.4-10.2) mg/dL Magnesium 2.0 (1.6-2.6) mg/dL Total Bilirubin 0.3 (0.0-1.0) mg/dL AST 18 (5-37) U/L ALT 19 (0-40) U/L Alkaline Phosphatase 119 H (39-117) U/L Total Creatine Kinase 61 (38-174) U/L Troponin I High Sens < 2.7 (<3.5-35.0) ng/L Total Protein 6.6 (6.5-8.0) g/dL Albumin 3.4 L (3.5-5.0) g/dL Urine Color Yellow Urine Appearance Clear Urine pH 6.0 (5.0-9.0) Ur Specific [place] 1.010 (1.005-1.025) Urine Protein Negative (Neg-Trace) mg/dL Urine Glucose (UA) Negative (Negative) mg/dL Urine Ketones Negative (Negative) mg/dL Urine Blood Negative (Negative) Urine Nitrite Negative (Negative) Ur Leukocyte Esterase Negative (Negative) Influenza Type A (PCR) NEGATIVE (Negative) Influenza Type B (PCR) NEGATIVE (Negative) RSV RNA Qual (PCR) NEGATIVE (Negative) SARS-CoV-2 RNA (RT-PCR) NEGATIVE (Negative) Independent Interpretation I performed an independent interpretation of an: EKG (Vent. Rate : 083 BPM Atrial Rate : 083 BPM P-R Int : 168 ms QRS Dur : 088 ms QT Int : 398 ms P-R-T Axes : 028 -25 018 degrees QTc Int : 467 ms Normal sinus rhythm Cannot rule out Anterior infarct , age undetermined Abnormal ECG When compared with ECG of 29-MAR-2023 16:), Plain X-Ray ( XR/XR shoulder LT min 2V IMPRESSION: 1. No evidence of an acute osseous injury. 2. Infrarenal abdominal aortic aneurysm measuring 6.3 cm, increased in size when compared with the most recent CT exam of the lumbar spine when measurements were 4.9 cm. ) and CT Scan (CT/CT head/brain wo IV con IMPRESSION: CT HEAD: 1. No acute abnormalities. No intracranial hemorrhage or definitive acute infarcts. 2. Chronic right frontoparietal infarct. 3. Moderate white matter chronic microangiopathic ischemic changes. CT CERVICAL SPINE: 1. No acute abnormalities. 2. Mu) Radiology Impression Discussion of test interpretation with radiology: I have reviewed the radiologist's reading. External Record Review External record reviewed: Inpatient record, Office record, Outpatient record, Prior outpatient labs, Prior outpatient radiology, Primary care record and Outside ED record Chronic Conditions Patient?s care impacted by: Other (acs, cva, weakness ) Core Measures AMI core measures followed: Yes Measure exclusions: not indicated Critical Care Time Critical Care Time Critical Care Time: Yes Total Critical Care Time: 35 Attestation: I attest to this time spent taking care of the patient, obtaining history, physical, reviewing labs, imaging, speaking to my attending, speaking to specialist. Discharge Plan Discharge Clinical Impression: Fall, Left shoulder pain, Hip pain, left, Aneurysm of infrarenal abdominal aorta Patient Disposition: Home, Self-Care Instructions: Fall Prevention for Older Adults (ED), Fall Prevention (ED), Shoulder Pain (ED), Hip Pain (ED) Additional Instructions: Take your medications as prescribed. If you were prescribed antibiotics today, it is important that you take your medication to their entirety, do not skip any doses, do not finish them early. Follow-up with your primary care provider this week. Return to the emergency department with new or worsening symptoms. Such as fevers, chills, chest pain, shortness of breath, nausea, vomiting, dizziness, headache, vision changes, lethargy In case of emergency call 911 Tylenol has been sent to your pharmacy for pain. You were noted to have an infrarenal abdominal aortic aneurysm you need to follow-up with vascular surgery as soon as possible as it appears to be growing when compared to previous imaging CT/CT head/brain wo IV con IMPRESSION: CT HEAD: 1. No acute abnormalities. No intracranial hemorrhage or definitive acute infarcts. 2. Chronic right frontoparietal infarct. 3. Moderate white matter chronic microangiopathic ischemic changes. CT CERVICAL SPINE: 1. No acute abnormalities. 2. Multilevel chronic spondylosis. 3. Dense bilateral carotid bulb calcific atherosclerotic plaques. XR/XR shoulder & hip LT min 2V IMPRESSION: 1. No evidence of an acute osseous injury. 2. Infrarenal abdominal aortic aneurysm measuring 6.3 cm, increased in size when compared with the most recent CT exam of the lumbar spine when measurements were 4.9 cm. Prescriptions: New acetaminophen [Tylenol] 325 mg capsule 325 mg PO Q4H PRN (Reason: pain) Qty: 30 0RF No Action fluoxetine 40 mg capsule 1 cap PO DAILY Rx Instructions: take with 10mg; total dose 50mg bupropion HCl 150 mg tablet sustained-release 12 hr 1 tab PO BID atorvastatin 80 mg tablet 1 tab PO BEDTIME clopidogrel 75 mg tablet 1 tab PO DAILY trazodone 100 mg tablet 2 tab PO BEDTIME lamotrigine 100 mg tablet 200 tab PO BID quetiapine 400 mg tablet extended release 24 hr 1 tab PO BEDTIME aspirin 81 mg tablet,delayed release (DR/EC) 1 tab PO DAILY fluticasone propionate 50 mcg/actuation [place],Suspension 1 spray INTRANASAL BID Rx Instructions: administer into each nostril nitroglycerin 0.4 mg tablet, sublingual 0.4 mg sublingual Q5M PRN (Reason: chest pain) Qty: 1 0RF Rx Instructions: do not exceed 3 doses per episode sennosides [senna] 8.6 mg Tablet 8.6 mg PO BEDTIME PRN (Reason: Constipation) acetaminophen 325 mg Tablet 650 mg PO Q6H PRN (Reason: Pain (Scale Score 1-3)) lidocaine 5 % Adhesive Patch,Medicated 1 patch TOPICAL DAILY PRN (Reason: Pain) Rx Instructions: leave on most painful area for up to 12 hrs Referrals: [facility] [Provider Group] - 1 day Physician,Unknown J [Primary Care Provider] - 3 days
[2023-07-23 17:32] LABS: Influenza A PCR NEGATIVE (Negative); Influenza B PCR NEGATIVE (Negative); Resp Syncy Virus RNA Qual PCR NEGATIVE (Negative); SARS COV2 PCR INHOUSE NEGATIVE (Negative)
[2023-07-23 18:44] VITALS: BP 119/88; PULSE 83; RESP 14; O2SAT 99
[2023-07-23 19:00] LABS: Appearance Urine Clear; Color Urine Yellow; Glucose Urine UA Negative (Negative); Leukocyte Esterase Urine Negative (Negative); Nitrite Urine Negative (Negative); Urine Blood Negative (Negative); Urine Ketones Negative (Negative); Urine Protein Negative (Neg-Trace)
--- NOTE | 2023-07-23 19:05 | PC.NURSE ---
PT AMBULATING WITH WALKER STEADILY, INDEPENDENTLY WITH NO ISSUE.
[2023-07-23 20:59] VITALS: BP 125/81; PULSE 80; RESP 18; TEMP 36.9; O2SAT 96
== END 2023-07-23 21:00 | disposition home or self-care (01) ==
PROVIDERS: Physician Assistant; Emergency Provider Emergency Medicine Emergency Medical Services
DX: M25.552 Pain in left hip (principal); M25.512 Pain in left shoulder; I71.43 Infrarenal abdominal aortic aneurysm, without rupture; I12.9 Hypertensive chronic kidney disease with stage 1 through stage 4 chronic kidney disease, or unspecified chronic kidney disease; N18.32 Chronic kidney disease, stage 3b; I25.2 Old myocardial infarction; Z86.73 Personal history of transient ischemic attack (TIA), and cerebral infarction without residual deficits; Z91.81 History of falling; Z03.818 Encounter for observation for suspected exposure to other biological agents ruled out
CPT/HCPCS: 0241U; 70450; 71045; 72125; 73030; 73502; 80053; 81003; 82550; 82947; 83735; 84484; 85025; 93005; 99284

== ENCOUNTER → 2023-07-23 16:04 | Outpatient (BNV) | payer OTHER, SELFPAY | PROVIDERS: Emergency Provider Emergency Medicine Emergency Medical Services; Visit Provider Internal Medicine Cardiovascular Disease | DX: R94.31 Abnormal electrocardiogram [ECG] [EKG] (principal) | CPT/HCPCS: 93010 ==

== ENCOUNTER 2023-07-31 20:20 | Emergency (ER) | payer OTHER, SELFPAY ==
--- NOTE | 2023-07-31 | ECG_ITS ---
Test Reason : FALL Blood Pressure : / mmHG Vent. Rate : 063 BPM Atrial Rate : 063 BPM P-R Int : 152 ms QRS Dur : 084 ms QT Int : 414 ms P-R-T Axes : 031 -20 -12 degrees QTc Int : 423 ms Normal sinus rhythm Nonspecific ST and T wave abnormality Abnormal ECG When compared with ECG of 23-JUL-2023 16:09, No significant change was found Referred By: Generic ED Physician Electronically Signed By:Néstor Guardado
--- NOTE | ~2023-07-31 | XR_ITS ---
EXAMINATION: XR HIP, RIGHT CLINICAL INFORMATION: Fall. Pain. COMPARISON: None available. TECHNIQUE: Two views of the right hip. FINDINGS: The bone mineralization is within normal limits. There is mild bilateral hip degenerative change with minimal loss of joint space and subchondral sclerosis as well as minimal osteophyte formation. No fracture is seen. An apparent infrarenal abdominal aortic aneurysm is noted. XR/XR hip RT w PEL1V IMPRESSION: 1. No acute finding. 2. Mild osteoarthritis of the hips. 3. Suspect infrarenal abdominal aortic aneurysm.
--- NOTE | ~2023-07-31 | CT_ITS ---
EXAMINATION: CT HEAD WITHOUT CONTRAST CT CERVICAL SPINE WITHOUT CONTRAST CLINICAL INFORMATION: Neck trauma. Head injury. COMPARISON: CT head and cervical spine from 07/23/2023. TECHNIQUE: Contiguous axial imaging was performed from the skull base to vertex without intravenous administration of contrast. Contiguous axial imaging was performed from the upper chest through the skull base without intravenous administration of contrast. Coronal and sagittal reformats were obtained at the acquisition workstation. This CT examination was performed using dose optimization techniques as appropriate, variously including the following: *Automated exposure control. *Adjustment of mA and/or kV according to patient size (this includes techniques or standardized protocols for targeted exams where dose is matched to indication/reason for exam; i.e. extremities or head). *Use of iterative reconstruction technique. DLP: 1451 mGy-cm FINDINGS: Head: There are chronic regions of encephalomalacia within the lateral aspect of the right frontoparietal lobes with associated volume loss. No additional loss of rodriguez-white matter differentiation. No evidence of acute intracranial hemorrhage. Scattered and partially confluent hypoattenuation in the periventricular and deep white matter are consistent with moderate microangiopathy. Proportional prominence of the ventricles and sulcal spaces without evidence of obstructive hydrocephalus. No abnormal mass effect or midline shift. No extra-axial fluid collections. No acute soft tissue or osseous abnormalities. Mild mucosal thickening of the paranasal sinuses. The mastoid air cells and middle ear cavities are clear. Cervical Spine: The atlantooccipital and atlantoaxial articulations remain well aligned. Mild degenerative retrolisthesis of C5 on C6. Otherwise, there is anatomic alignment of the vertebral bodies and posterior elements. Congenital nonunion of the posterior arch of C1. No evidence of acute fracture or subluxation. The vertebral body heights are maintained. Moderate degenerative disc disease at C5-C6. Mild degenerative disc disease at all additional levels. Facet and uncovertebral joint arthropathy leads to osseous encroachment on the neural foramina from C3-C6. There is no prevertebral soft tissue swelling. The thyroid gland and remaining cervical soft tissues are within normal limits. The lung apices demonstrate no abnormalities. CT/CT cervical spine wo IV con IMPRESSION: 1. No evidence of acute intracranial hemorrhage or edematous territorial infarction. 2. Chronic regions of encephalomalacia within the right frontoparietal lobes. Moderate underlying microangiopathy and generalized cerebral volume loss. 3. No evidence of acute fracture or traumatic subluxation of the cervical spine. Moderate multilevel degenerative spondyloarthropathy of the cervical spine.
--- NOTE | ~2023-07-31 | CT_ITS ---
EXAMINATION: CT CHEST WITHOUT CONTRAST CLINICAL INFORMATION: Severe right rib pain COMPARISON: CT chest 11/03/2021 TECHNIQUE: Multidetector volumetric CT imaging of the chest was done. Axial MIP volume rendering provided. Sagittal and coronal reformatted images were obtained. This CT examination was performed using dose optimization techniques as appropriate, variously including the following: *Automated exposure control *Adjustment of mA and/or kV according to patient size (this includes techniques or standardized protocols for targeted exams where dose is matched to indication/reason for exam; i.e. extremities or head) *Use of iterative reconstruction technique DLP: 527 mGy-cm FINDINGS: There is marked respiratory artifact degrading the diagnostic detail. LUNGS: There is a 4 mm right upper lobe pulmonary nodule present, unchanged from 11/03/2021 (26:265 compare prior 7:234). The lungs are otherwise relatively clear with no evidence of inflammation or concerning nodules. MEDIASTINUM: The mediastinum is normal. CORONARY ARTERY CALCIFICATION: Extensive PLEURA: There is no pleural effusion. No pleural mass or thickening. AXILLA: No lymphadenopathy. UPPER ABDOMEN: Unremarkable. OSSEOUS STRUCTURES: There are fractures involving the anterolateral right sixth and seventh ribs which appear subacute. They were not present at the time of the 11/03/[address]/CT chest wo IV con IMPRESSION: Subacute right sixth and seventh rib fractures. Fleischner guidelines were followed.
[2023-07-31 20:26] VITALS: BP 203/90; BP 227/86; PULSE 68; PULSE 70; RESP 16; O2SAT 98; BMI 27.1
[2023-07-31 21:00] VITALS: PULSE 69
[2023-07-31 21:01] LABS: Glucose, Whole Blood 95 mg/dL (60-115)
[2023-07-31 21:06] LABS: MANUAL DIFF FLAG NO
--- NOTE | 2023-07-31 21:06 | MHC.EDTECH ---
PATIENT WAS BIBA ,EKG TAKEN AND WAS READ BY PROVIDER ,PATIENT WAS HOOKED UP TO [employer]Y BUS DR[employer] ,,BLOOD DRAWN AND SENT TO LAB .
[2023-07-31 21:07] LABS: Basophils Absolute Auto 0.1 X10*3/uL (0.0-0.2); Eosinophils Absolute Auto 0.4 X10*3/uL (0.0-0.4); Eosinophils Percent Auto 2.8 % (0-4); Hematocrit 41.5 % (42.0-52.0); Hemoglobin 13.7 g/dl (14.0-18.0); Imm Gran Abs Auto 0.05 X10*3/uL (0.00-0.03); Imm Gran Pct Auto 0.4 % (0.0-0.4); Mean Corpuscular Hemoglobin 28.7 pg (27.0-33.0); Mean Corpuscular Volume 86.8 fL (80.0-98.0); Mean Platelet Volume 9.6 fL (9.4-12.4); Monocytes Percent Auto 7.1 % (2-11); Neutrophils Absolute Auto 8.6 x10*3/uL (2.0-8.3); Neutrophils Percent Auto 60.7 % (45-73); Platelet Count 294 X10*3/uL (160-400); Red Blood Count 4.78 X10*6/uL (4.60-5.80); Red Cell Distribution Width 14.9 % (11.0-16.0); White Blood Count 14.1 X10*3/uL (4.8-10.8)
[2023-07-31 21:20] LABS: Alanine Aminotransferase 17 U/L (0-40); Albumin Level 3.7 g/dL (3.5-5.0); Alkaline Phosphatase 138 U/L (39-117); Anion Gap 14 (12-20); Aspartate Amino Transferase 19 U/L (5-37); Bilirubin Total 0.7 mg/dL (0.0-1.0); Blood Urea Nitrogen 31 mg/dL (9-16); Carbon Dioxide 24 mmol/L (22-29); Chloride 108 mmol/L (96-108); Creatinine Clr Calc Pharmacy 36.9; Estimated Glomerular Filt Rate 31; Glucose Random 97 mg/dL (60-115); Sodium 142 mmol/L (135-145); Total Protein 7.5 g/dL (6.5-8.0)
[2023-07-31] MEDS: ondansetron HCL 4 MG/2 ML VIAL IVPUSH (21:22)
[2023-07-31] MEDS: Morphine Sulfate 4 MG/ML CARTRIDGE IVPUSH (21:22)
--- NOTE | 2023-07-31 21:22 | PC.NURSE ---
pt in ct scan not tolerating d/t pain. meds given per jun while in ct per Dr. Townsend request.
[2023-07-31 21:27] LABS: Troponin-I High Sensitivity 5.2 ng/L (<3.5-35.0)
--- NOTE | 2023-07-31 21:53 | PC.NURSE ---
pt states pain resolved with meds given however pain returned L. chest. pt yelled in pain grabbing left chest. pt reports pain worse with palpation. Dr. Hernadez aware. pt denies sob. no changes on heart monitor.
[2023-07-31 21:59] VITALS: BP 182/90; PULSE 63; RESP 16; TEMP 36.9
--- NOTE | 2023-07-31 22:00 | ED_ITS ---
HPI - Fall General Chief Complaint: Fall Stated Complaint: FALL Time Seen by Provider: 07/31/23 21:52 Source: patient and EMS Mode of arrival: EMS Limitations: no limitations History of Present Illness HPI Narrative: Patient comes to the emergency room complaining of left-sided chest pain/rib pain after falling into a tree. Patient states that he was walking his dog, the dog started chasing a squirrel, patient's feet got caught in the dog's leash and the patient fell into a tree. Patient states that he did not hit his head or lost consciousness. Per EMS, patient refused C-collar. Related Data Home Medications ?Medication ?Instructions ?Recorded ?Confirmed atorvastatin 80 mg tablet 1 tab PO BEDTIME 01/12/21 03/29/23 bupropion HCl 150 mg tablet,12 hr 1 tab PO BID 01/12/21 03/29/23 sustained-release clopidogrel 75 mg tablet 1 tab PO DAILY 01/12/21 03/29/23 fluoxetine 40 mg capsule 1 cap PO DAILY 01/12/21 03/29/23 lamotrigine 100 mg tablet 200 tab PO BID 01/12/21 03/29/23 quetiapine 400 mg tablet,extended 1 tab PO BEDTIME 01/12/21 03/29/23 release 24 hr trazodone 100 mg tablet 2 tab PO BEDTIME Insomnia 01/12/21 03/29/23 aspirin 81 mg tablet,delayed 1 tab PO DAILY 11/03/21 03/29/23 release fluticasone propionate 50 1 spray intranasal BID Allergy 11/03/21 03/29/23 mcg/actuation nasal Symptoms spray,suspension acetaminophen 325 mg tablet 650 mg PO Q6H PRN Pain (Scale 03/29/23 03/29/23 Score 1-3) lidocaine 5 % topical patch 1 patch topical DAILY PRN Pain 03/29/23 03/29/23 sennosides 8.6 mg tablet (senna) 8.6 mg PO BEDTIME PRN Constipation 03/29/23 03/29/23 Previous Rx's ?Medication ?Instructions ?Recorded nitroglycerin 0.4 mg sublingual 0.4 mg sublingual Q5M PRN chest 09/12/22 tablet pain #1 tab acetaminophen 325 mg capsule 325 mg PO Q4H PRN pain #30 caps 07/23/23 (Tylenol) oxycodone 5 mg tablet 5 mg PO BID PRN pain #8 tabs 08/01/23 Allergies Allergy/AdvReac Type Severity Reaction Status Date / Time clozapine [From Clozaril] Allergy Unknown RASH Verified 07/31/23 20:33 hydroxyzine [From VISTARIL] Allergy Unknown UNKNOWN Verified 07/31/23 20:33 menthol [From Antihistamine] Allergy Unknown RASH Verified 07/31/23 20:33 nicotine [Nicotine] Allergy Unknown GUM- MAKES Verified 07/31/23 20:33 SICK TO STOMACH nut - unspecified [nut] Allergy Unknown SWELLING Verified 07/31/23 20:33 From Antihistamine Allergy Unknown RASH Uncoded 07/31/23 20:33 Review of Systems 2 Review of Systems: Constitutional : No Weight loss, No Fever, No Chills, No Night Sweats, No Fatigue, No Malaise ENT/Mouth : No Hearing loss, No Ear Pain, No Nasal Congestion, No Sinus Pain, No Hoarseness, No sore throat, No Rhinorrhea, No Swallowing Difficulty Eyes: No Eye Pain, No Swelling, No Redness, No Foreign Body, No Discharge, No Vision Changes Cardiovascular : No Chest Pain, No SOB, No Dyspnea on Exertion, No Orthopnea, No Edema, No Palpitations Respiratory : No Cough, No Sputum, No Wheezing, No Smoke Exposure, No Dyspnea Gastrointestinal : No Nausea, No Vomiting, No Diarrhea, No Constipation, No abdominal Pain, No Hematochezia, No Melena Genitourinary : no irregular bleeding, No Dysuria, No Urinary Frequency, No Hematuria, No Urinary Incontinence, No Urgency, No Flank Pain, No Urinary Flow Changes, No Hesitancy Musculoskeletal : Complaining of left-sided rib pain Skin : No Skin Lesions, No rash Neuro : No Weakness, No Numbness, No Paresthesias, No Loss of Consciousness, No Dizziness, No Headache Psych : No Anxiety/Panic, No Depression, No SI/HI/AH/VH, No Social Issues, Heme/Lymph: No Bruising, No Bleeding,No Lymphadenopathy Endocrine : No Polyuria, No Polydipsia, No Temperature Intolerance [facility] Past Medical History Medical History Stage 3b chronic kidney disease Multiple falls CAD (coronary artery disease) Schizoaffective disorder Peripheral arterial disease History of CVA (cerebrovascular accident) Bilateral carotid artery stenosis Stroke due to stenosis of carotid artery Arthritis Myocardial infarct Hypertension Surgical History H/O heart artery stent No significant past surgical history Family History Family History Father Heart disease Social History Social History Household Members: None Housing: Apartment Do you presently have visiting nurse or other home services: No Alcohol intake: former Patient Tobacco Use Status: Current everyday Tobacco user Tobacco use type: Cigar Cigarettes Per Day: 4 Smoked in Last 30 Days: No Second Hand Smoke Exposure: No Use of substances other than those prescribed or required for medical reasons: No Advance Directives: Yes Advance Directives on File: Yes Advance Directives Date on File: 01/18/21 service: No Physical Exam 2 Vital Signs: Vital Signs: Last Vital Signs Temp 97.2 F 07/31/23 23:49 Pulse 59 07/31/23 23:49 Resp 15 07/31/23 23:49 BP 179/81 H 07/31/23 23:49 Pulse Ox 95 07/31/23 23:49 O2 Del Method Room Air 07/31/23 23:49 BMI result Body Mass Index 27.1 Const: Other: Appearance: Alert. Oriented X3. No acute distress. Eyes: Pupils equal, round and reactive to light. ENT: Pharynx normal. Neck: Normal inspection. Neck supple. No lymph nodes noted. No crepitus CVS: Normal heart rate and rhythm. Pulses normal. Normal S1 and S2 Respiratory: No respiratory distress. Breath sounds normal. No Wheezing. No rales Abdomen: Soft and nontender. No rigidity. No distention. Musculoskeletal: Exaggerated response to lifting patient's short up without even touching him. Exaggerated response to the tech putting stickers on his chest. Exaggerated response to minimal palpation to the left side of the chest. However, when I explained to the patient that I was listening to the heart, as I pushed fairly hard with the stethoscope on the left side and lateral ribs on the left side of the chest, patient did not complain of pain Skin: Skin warm and dry. Normal skin color. Normal skin turgor. Extremities: No lower extremity edema. No Lacerations. No Rash Neuro: Oriented X 3. No motor deficit. No sensory deficit. Moving all extremities. No slurred speech. CN 2 through 12 grossly intact Psych: calm, cooperative, normal affect Course Course Course Narrative: Labs and CT scans pending Medications Administered Discontinued Medications Generic Name Dose Route Start Last Admin Trade Name Darshan PRN Reason Stop Dose Admin Morphine Sulfate 4 mg 07/31/23 20:55 07/31/23 21:22 Morphine Sulfate 4 Mg/Ml Cartridge IVPUSH 07/31/23 20:56 4 mg ONCE ONE Administration Protocol Ondansetron HCl 4 mg 07/31/23 20:56 07/31/23 21:22 Ondansetron Hcl 4 Mg/2 Ml Vial IVPUSH 07/31/23 20:57 4 mg ONCE ONE Administration Medical Decision Making Medical Decision Making [facility] Narrative: -my interpretation of labs: white blood cell count of 14.1, likely reactive leukocytosis, at baseline and chemistry with an increased creatinine of 2.13 which is chronic, normal troponin -my interpretation of EKG: Normal sinus rhythm, heart rate 63, less than [address] segment depression in lateral leads, no Q-waves, no T-wave inversion, QTC 423 -patient receive morphine IV for pain control. -patient's blood pressure on arrival 227/86, patient is significantly anxious. -x-rays of the hip/pelvis, no fracture, normal alignment -CT scan of the chest shows a subacute rib fracture on the right. Six and 7 ribs. However, patient does not have any pain on the right side, patient only has pain on the left. -patient given pain medication, patient ready for discharge Differential Diagnosis Differential Diagnoses: The differential diagnosis associated with the presentation includes (Contusion, concussion, rib fractures, hip contusion, dislocation versus subluxation) Admission/Observation Consideration of admission/observation: Escalation of care including admission/observation considered (Given patient's history, observation was considered) Lab Data [facility] Lab Attestation statement: I reviewed the patient's lab results. 07/31/23 21:02 07/31/23 21:02 Labs: Lab Results 07/31/23 07/31/23 Range/Units 20:58 21:02 WBC 14.1 H (4.8-10.8) X10*3/uL RBC 4.78 (4.60-5.80) X10*6/uL Hgb 13.7 L (14.0-18.0) g/dl Hct 41.5 L (42.0-52.0) % MCV 86.8 (80.0-98.0) fL MCH 28.7 (27.0-33.0) pg MCHC 33.0 (31.0-36.0) g/dl RDW 14.9 (11.0-16.0) % Plt Count 294 D (160-400) X10*3/uL MPV 9.6 (9.4-12.4) fL Immature Gran % (Auto) 0.4 (0.0-0.4) % Neut % (Auto) 60.7 (45-73) % Lymph % (Auto) 28.0 (20-40) % [place] % (Auto) 7.1 (2-11) % Eos % (Auto) 2.8 (0-4) % Baso % (Auto) 1.0 (0-2) % Lymph # (Auto) 4.0 (1.2-4.9) X10*3/uL [place] # (Auto) 1.0 (0.1-1.2) X10*3/uL Eos # (Auto) 0.4 (0.0-0.4) X10*3/uL Baso # (Auto) 0.1 (0.0-0.2) X10*3/uL Abs Immat Gran (auto) 0.05 H (0.00-0.03) X10*3/uL Absolute Neuts (auto) 8.6 H (2.0-8.3) x10*3/uL Absolute Nucleated RBC 0.000 (0.0-0.012) X10*3/uL Nucleated RBC % (auto) 0.0 (0.0-0.2) /100WBC Sodium 142 (135-145) mmol/L Potassium 4.0 (3.3-5.1) mmol/L Chloride 108 (96-108) mmol/L Carbon Dioxide 24 (22-29) mmol/L Anion Gap 14 (12-20) BUN 31 H (9-16) mg/dL Creatinine 2.13 H (0.5-1.4) mg/dL Estim Creat Clear Calc 36.9 Estimated GFR 31 POC Glucose 95 (60-115) mg/dL Random Glucose 97 (60-115) mg/dL Calcium 9.0 (8.4-10.2) mg/dL Total Bilirubin 0.7 (0.0-1.0) mg/dL AST 19 (5-37) U/L ALT 17 (0-40) U/L Alkaline Phosphatase 138 H (39-117) U/L Troponin I High Sens 5.2 D (<3.5-35.0) ng/L Total Protein 7.5 (6.5-8.0) g/dL Albumin 3.7 (3.5-5.0) g/dL Independent Interpretation I performed an independent interpretation of an: Plain X-Ray and CT Scan Radiology Impression Discussion of test interpretation with radiology: I have reviewed the radiologist's reading. Radiologist Impression: Head: There are chronic regions of encephalomalacia within the lateral aspect of the right frontoparietal lobes with associated volume loss. No additional loss of rodriguez-white matter differentiation. No evidence of acute intracranial hemorrhage. Scattered and partially confluent hypoattenuation in the periventricular and deep white matter are consistent with moderate microangiopathy. Proportional prominence of the ventricles and sulcal spaces without evidence of obstructive hydrocephalus. No abnormal mass effect or midline shift. No extra-axial fluid collections. No acute soft tissue or osseous abnormalities. Mild mucosal thickening of the paranasal sinuses. The mastoid air cells and middle ear cavities are clear. Cervical Spine: The atlantooccipital and atlantoaxial articulations remain well aligned. Mild degenerative retrolisthesis of C5 on C6. Otherwise, there is anatomic alignment of the vertebral bodies and posterior elements. Congenital nonunion of the posterior arch of C1. No evidence of acute fracture or subluxation. The vertebral body heights are maintained. Moderate degenerative disc disease at C5-C6. Mild degenerative disc disease at all additional levels. Facet and uncovertebral joint arthropathy leads to osseous encroachment on the neural foramina from C3-C6. There is no prevertebral soft tissue swelling. The thyroid gland and remaining cervical soft tissues are within normal limits. The lung apices demonstrate no abnormalities. CT/CT head/brain wo IV con IMPRESSION: 1. No evidence of acute intracranial hemorrhage or edematous territorial infarction. 2. Chronic regions of encephalomalacia within the right frontoparietal lobes. Moderate underlying microangiopathy and generalized cerebral volume loss. 3. No evidence of acute fracture or traumatic subluxation of the cervical spine. Moderate multilevel degenerative spondyloarthropathy of the cervical spine. FINDINGS: The bone mineralization is within normal limits. There is mild bilateral hip degenerative change with minimal loss of joint space and subchondral sclerosis as well as minimal osteophyte formation. No fracture is seen. An apparent infrarenal abdominal aortic aneurysm is noted. XR/XR hip RT w PEL1V IMPRESSION: 1. No acute finding. 2. Mild osteoarthritis of the hips. 3. Suspect infrarenal abdominal aortic aneurysm. Critical Care Time Critical Care Time Critical Care Time: Yes Total Critical Care Time: 35 Attestation: I have personally provided critical care time. Time includes review of lab data, radiology results, discussion with consultants, and monitoring for potential decompensation. Intervention performed as documented. Discharge Plan Discharge Clinical Impression: Closed rib fracture, Fall Patient Disposition: Home, Self-Care Instructions: Rib Fracture (ED), Fall Prevention (ED) Additional Instructions: Please follow-up with your primary care physician tomorrow. If you have any worsening or new symptoms, please return to the emergency room or call 911 Prescriptions: New oxycodone 5 mg tablet 5 mg PO BID PRN (Reason: pain) Qty: 8 0RF Rx Instructions: Partial Fill upon patient request. No Action fluoxetine 40 mg capsule 1 cap PO DAILY Rx Instructions: take with 10mg; total dose 50mg bupropion HCl 150 mg tablet sustained-release 12 hr 1 tab PO BID atorvastatin 80 mg tablet 1 tab PO BEDTIME clopidogrel 75 mg tablet 1 tab PO DAILY trazodone 100 mg tablet 2 tab PO BEDTIME lamotrigine 100 mg tablet 200 tab PO BID quetiapine 400 mg tablet extended release 24 hr 1 tab PO BEDTIME aspirin 81 mg tablet,delayed release (DR/EC) 1 tab PO DAILY fluticasone propionate 50 mcg/actuation [place],Suspension 1 spray INTRANASAL BID Rx Instructions: administer into each nostril nitroglycerin 0.4 mg tablet, sublingual 0.4 mg sublingual Q5M PRN (Reason: chest pain) Qty: 1 0RF Rx Instructions: do not exceed 3 doses per episode sennosides [senna] 8.6 mg Tablet 8.6 mg PO BEDTIME PRN (Reason: Constipation) acetaminophen 325 mg Tablet 650 mg PO Q6H PRN (Reason: Pain (Scale Score 1-3)) lidocaine 5 % Adhesive Patch,Medicated 1 patch TOPICAL DAILY PRN (Reason: Pain) Rx Instructions: leave on most painful area for up to 12 hrs acetaminophen [Tylenol] 325 mg capsule 325 mg PO Q4H PRN (Reason: pain) Qty: 30 0RF Print Language: [place]
[2023-07-31 23:49] VITALS: BP 179/81; PULSE 59; RESP 15; TEMP 36.2; O2SAT 95
--- NOTE | 2023-08-01 10:53 | MHC.CM.ED ---
Received notification [facility] that patient is active with their agency. Er d/c faxed to their office as requested.
== END 2023-08-01 03:30 | disposition home or self-care (01) ==
PROVIDERS: Emergency Provider Emergency Medicine; PCP Family Medicine
DX: S22.41XA Multiple fractures of ribs, right side, initial encounter for closed fracture (principal); I12.9 Hypertensive chronic kidney disease with stage 1 through stage 4 chronic kidney disease, or unspecified chronic kidney disease; N18.32 Chronic kidney disease, stage 3b; W01.198A Fall on same level from slipping, tripping and stumbling with subsequent striking against other object, initial encounter; Y93.K1 Activity, walking an animal; Y92.9 Unspecified place or not applicable; Y99.9 Unspecified external cause status
CPT/HCPCS: 36415; 70450; 71250; 72125; 73502; 80053; 82947; 84484; 85025; 93005; 96374; 96375; 99284; 99285; J2270; J2405

== ENCOUNTER → 2023-07-31 20:43 | Outpatient (BNV) | payer OTHER, SELFPAY | PROVIDERS: Emergency Provider Emergency Medicine; PCP Family Medicine; Visit Provider Internal Medicine Cardiovascular Disease | DX: R94.31 Abnormal electrocardiogram [ECG] [EKG] (principal) | CPT/HCPCS: 93010 ==

== ENCOUNTER 2023-12-30 11:37 | Inpatient (IN) | payer OTHER, SELFPAY ==
[2023-12-30] VITALS (9 sets, daily range): BP systolic 156–213; BP diastolic 65–107; PULSE 55–78; RESP 13–21; TEMP 36.4–37.1; O2SAT 97–100; BMI 27.1
--- NOTE | ~2023-12-30 | CT_ITS ---
EXAMINATION: CTA OF THE CHEST, ABDOMEN, AND PELVIS WITH AND WITHOUT CONTRAST CLINICAL INFORMATION: pain, asymmetric BP COMPARISON: CT 07/27/2023 and 11/03/2021 TECHNIQUE: Initial noncontrast localizing milling planer operator images were obtained. Timing boluses at the level of the aortic arch and iliac arteries were calculated. Subsequently, arterial phase multidetector volumetric imaging was performed through the chest, abdomen, and pelvis following the administration of 100 mL Omnipaque 350 intravenous contrast. No contrast reaction reported Sagittal and coronal reformatted images were obtained on the technologist workstation. After extensive post-processing on a dedicated 3-D workstation, 3-D reformatted images were uploaded to PACS and reviewed as well. This CT examination was performed using dose optimization techniques as appropriate, variously including the following: *Automated exposure control *Adjustment of mA and/or kV according to patient size (this includes techniques or standardized protocols for targeted exams where dose is matched to indication/reason for exam; i.e. extremities or head) *Use of iterative reconstruction technique Total exam dose-length product 666 mGy-cm FINDINGS: VASCULAR: 1. Ascending thoracic aorta: Aneurysmal dilation of the ascending thoracic aorta up to 4.2 cm at its midportion, unchanged. The aorta tapers towards the arch and measures 3.6 cm just proximal to the origin of the brachiocephalic. There is no evidence of dissection or other acute aortic syndrome involving the ascending thoracic aorta. The coronary arteries arise from their expected cusps. There is calcification and possible stents along the left coronary circulation. 2. Thoracic aortic arch: Partially shared origin of the brachiocephalic and left common carotid arteries. Motion artifact partially limits evaluation of the origins of the arch vessels, though there is probable noncalcified plaque resulting in [id number] narrowing at the origin of the left common carotid and there is lobulated plaque within the brachiocephalic which does not result in hemodynamically significant stenosis. There is a small ulceration at the origin of the right subclavian artery. There is chronic occlusion of the left subclavian origin, though the vessel is opacified beyond the level of the left internal mammary and vertebral arteries. 3. Descending thoracic aorta: The proximal and mid descending thoracic aorta is nonaneurysmal and contains lobulated, polypoid plaque including a segment of noncalcified plaque containing ulceration at its mid to distal portion without clear penetrating ulcer. There is mild dilation of the descending thoracic aorta to 2.9 cm. There is no dissection or other acute aortic syndrome. 4. Abdominal aorta: At the level of the hiatus the aorta is mildly dilated/aneurysmal and measures 3.1 cm in diameter, similar to prior. There is an aneurysm of the infrarenal abdominal aorta which measures up to 5.5 x 5.3 cm on oblique reformatted images at the level of the inferior mesenteric artery origin. On previous study the aorta measures 4.8 x 4.7 cm when measured at the same plane in level. There is no adjacent inflammatory changes to suggest rupture. The aneurysm terminates at the iliac bifurcation. 5. Mesenteric arteries: There is atherosclerotic disease at the origins of the superior mesenteric artery and celiac arteries which does not result in hemodynamically significant stenosis. The origin of the inferior mesenteric artery is itself occluded, though there is retrograde opacification of the vessel via collateral associations. 6. Renal arteries: There is a single renal artery to each kidney. There is a stent within the left renal artery without evidence of in-stent stenosis. On the right there is calcified and noncalcified disease resulting in moderate to severe stenosis. 7. Iliac arteries: Mild aneurysm dilatation of the left common iliac artery up to 1.8 cm. There is noncalcified plaque occupying much of the lumen resulting in mild to moderate narrowing. There is an ulceration of the plaque at its midportion. Right common iliac arteries at the upper limits of normal for size. There is mild narrowing at the origins of bilateral internal iliac arteries. The external iliac arteries have eccentric disease, though are without stenosis. The proximal femoral vessels are patent. NONVASCULAR: Lung: There is an unchanged 4 mm right upper lobe pulmonary nodule (image 240, series 6). There is linear atelectasis at the anterobasilar aspect of the right upper lobe. Mild upper lobe predominant emphysematous changes are seen. Lungs are otherwise clear. Pleura: No pleural effusion or pneumothorax. Mediastinum: Normal heart size. No pericardial effusion. No hilar or mediastinal lymphadenopathy. Chest Wall/Axilla: No axillary or internal mammary lymphadenopathy. Small amount of bilateral gynecomastia. Liver, Gallbladder and Biliary Tree: The liver is normal in size, shape, and attenuation. No focal hepatic lesion or biliary ductal dilatation is present. The gallbladder is unremarkable with no evidence of radiopaque gallstones, gallbladder wall thickening, or obvious pericholecystic inflammatory changes. Pancreas: Normal; no mass or surrounding fluid. Spleen: Normal size. No focal lesion. Adrenal Glands: Normal; no mass. Kidneys and Ureters: The kidneys are normal in size, shape, and attenuation. No hydronephrosis, hydroureter, or calculi. Gastrointestinal Tract: Stomach and small bowel non-dilated. No colonic wall thickening or pericolonic inflammatory changes. Normal appendix. Abdominal Wall: No significant hernia is appreciated. Lymphovascular Structures: No lymphadenopathy. Bladder: No focal mass or wall thickening seen. No bladder calculi. Pelvic Viscera: The prostate and seminal vesicles are normal. Osseous Structures: Multilevel endplate degenerative changes of the imaged thoracolumbar spine. There are degenerative changes of the sacroiliac joints and the left hip. There is a right hip prosthesis. There is heterotopic soft tissue calcification about the region of the right hip, likely postsurgical. There are no acute bony abnormality seen. CT/CT angio abdomen pelvis IMPRESSION: Stable mild aneurysm of the ascending thoracic aorta measures 4.2 cm. Redemonstration of chronic left subclavian artery occlusion and possible [id number] stenosis of the left carotid origin. There is a chronic small ulceration at the origin of the right subclavian artery. Redemonstration of abdominal aortic aneurysm which has increased in size and now measures 5.5 x 5.3 cm at the level of the inferior mesenteric artery, previously 4.8 x 4.7 cm on the previous study of 11/03/2021. 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 Mild to moderate stenosis at the origin of the right renal artery. Unchanged 4 mm right upper lobe pulmonary nodule. Electronically signed by: Papa Galarza MD 12/30/2023 01:57 PM EDT
--- NOTE | 2023-12-30 11:51 | ECG_ITS ---
Test Reason : CP Blood Pressure : / mmHG Vent. Rate : 053 BPM Atrial Rate : 053 BPM P-R Int : 152 ms QRS Dur : 080 ms QT Int : 490 ms P-R-T Axes : 025 -09 001 degrees QTc Int : 459 ms Sinus bradycardia Nonspecific ST abnormality Abnormal ECG When compared with ECG of 31-JUL-2023 20:43, T wave amplitude has increased in Anterolateral leads Referred By: Susanne Roche Electronically Signed By:DAVID ROSENTHAL
--- NOTE | 2023-12-30 11:53 | ED_ITS ---
HPI - General Adult General Chief complaint: General Medical Stated complaint: NAUSEA,SOB 99% RA, X3D,?'S BUG SPRAY PER EMS Time Seen by Provider: 12/30/23 11:43 Source: patient, EMS, RN notes reviewed and old records reviewed Mode of arrival: EMS Limitations: no limitations History of Present Illness ED Provider: Rl Roche PA-C HPI narrative: 68 yo male with history of CAD s/p PCI, CVA, COPD, HTN, bipolar disorder, s/p recent right hip replacement at [facility] 1 month ago, who presents to the ER from home via EMS for evaluation of 3 days of nausea, headaches, and SOB. He states he recently got home from rehab after his hip replacement and his home has been sprayed twice for cockroaches and he was unsure if this was making him sick. He vomited twice today but denies any significant pain. He feels generally weak the last few days and has had to use his walker insteady of his pain. He states his SOB is worse with any exertion or laying down. He states he gets random, sharp chest pains which are unchanged and chronic. He denies any fevers, chills, diarrhea, constipation, urinary symptoms. He reports headaches wax and wane and are not associated with any vision changes or focal weakness, numbness or tingling. He is unsure if he is on blood thinners. He has been compliant with his meds but he does not know what they are. He states that he has history of labile BP, as high as 280/120 and then as low as 70/50s in the past. He is unsure if he is on antihypertensives. He does not measure his BP at home. EMS found the patient outside his apartment complex in his wheelchair. He was pale and appeared unwell. His BP en route were 205/88 in the right arm and 125/89 in the left arm. He denies any history of asymmetrical BP in the past but states they usually do not take BP on his left arm due to history of a blood clot. He is a poor historian. MD complaint: headache, nausea, SOB Onset (ago): day(s) (3) Location: head and chest Radiation: non-radiation Severity: moderate Quality: aching Pain Consistency: intermittent Relieving factors: none Exacerbating factors: none Associated symptoms: headaches, loss of appetite, malaise, nausea/vomiting, shortness of breath and weakness Treatments prior to arrival: none Related Data Home Medications ?Medication ?Instructions ?Recorded ?Confirmed atorvastatin 80 mg tablet 1 tab PO BEDTIME 01/12/21 03/29/23 bupropion HCl 150 mg tablet,12 hr 1 tab PO BID 01/12/21 03/29/23 sustained-release clopidogrel 75 mg tablet 1 tab PO DAILY 01/12/21 03/29/23 fluoxetine 40 mg capsule 1 cap PO DAILY 01/12/21 03/29/23 lamotrigine 100 mg tablet 200 tab PO BID 01/12/21 03/29/23 quetiapine 400 mg tablet,extended 1 tab PO BEDTIME 01/12/21 03/29/23 release 24 hr trazodone 100 mg tablet 2 tab PO BEDTIME Insomnia 01/12/21 03/29/23 aspirin 81 mg tablet,delayed 1 tab PO DAILY 11/03/21 03/29/23 release fluticasone propionate 50 1 spray intranasal BID Allergy 11/03/21 03/29/23 mcg/actuation nasal Symptoms spray,suspension acetaminophen 325 mg tablet 650 mg PO Q6H PRN Pain (Scale 03/29/23 03/29/23 Score 1-3) lidocaine 5 % topical patch 1 patch topical DAILY PRN Pain 03/29/23 03/29/23 sennosides 8.6 mg tablet (senna) 8.6 mg PO BEDTIME PRN Constipation 03/29/23 03/29/23 Previous Rx's ?Medication ?Instructions ?Recorded nitroglycerin 0.4 mg sublingual 0.4 mg sublingual Q5M PRN chest 09/12/22 tablet pain #1 tab acetaminophen 325 mg capsule 325 mg PO Q4H PRN pain #30 caps 07/23/23 (Tylenol) oxycodone 5 mg tablet 5 mg PO BID PRN pain #8 tabs 08/01/23 Allergies Allergy/AdvReac Type Severity Reaction Status Date / Time clozapine [From Clozaril] Allergy Unknown RASH Verified 12/30/23 12:02 hydroxyzine [From VISTARIL] Allergy Unknown UNKNOWN Verified 12/30/23 12:02 menthol [From Antihistamine] Allergy Unknown RASH Verified 12/30/23 12:02 nicotine [Nicotine] Allergy Unknown GUM- MAKES Verified 12/30/23 12:02 SICK TO STOMACH nut - unspecified [nut] Allergy Unknown SWELLING Verified 12/30/23 12:02 From Antihistamine Allergy Unknown RASH Uncoded 12/30/23 12:02 Review of Systems 2 Review of Systems: Yes all other systems are reviewed and are negative [facility] Past Medical History Medical History Stage 3b chronic kidney disease Multiple falls CAD (coronary artery disease) Schizoaffective disorder Peripheral arterial disease History of CVA (cerebrovascular accident) Bilateral carotid artery stenosis Stroke due to stenosis of carotid artery Arthritis Myocardial infarct Hypertension Surgical History H/O heart artery stent No significant past surgical history Family History Family History Father Heart disease Social History Social History Household Members: None Housing: Apartment Do you presently have visiting nurse or other home services: No Alcohol intake: former Patient Tobacco Use Status: Current everyday Tobacco user Tobacco use type: Cigar Cigarettes Per Day: 4 Second Hand Smoke Exposure: No Advance Directives: Yes Advance Directives on File: Yes Advance Directives Date on File: 01/18/21 Do you have a plan to hurt others: No Plan service: No Physical Exam ED Vital Signs: Vital Signs - 24 hr 12/30/23 11:54 12/30/23 12:35 12/30/23 14:44 Temperature 97.5 F 97.5 F Pulse Rate 59 55 63 Respiratory Rate 20 13 21 H Blood Pressure 213/81 H 194/107 H 159/65 H Pulse Oximetry 100 98 99 Oxygen Delivery Method Room Air Room Air Room Air 12/30/23 15:29 12/30/23 15:32 12/30/23 16:23 Temperature 98.5 F Pulse Rate 78 Respiratory Rate 16 Blood Pressure 183/75 H 167/77 H 185/80 H Pulse Oximetry 99 Oxygen Delivery Method Room Air BMI result Body Mass Index 27.1 Appearance: Alert male pale. Oriented X3. No acute distress. Head: normocephalic, atraumatic. Eyes: Pupils equal, round and reactive to light. ENT: Pharynx normal. No tonsillar swelling or exudate. Neck: Normal inspection. Neck supple. CVS: Normal heart rate and rhythm. Pulses normal. Respiratory: No respiratory distress. Breath sounds normal. Abdomen: Soft and nontender. +BS x4 Skin: Skin warm and dry. Normal skin color. Normal skin turgor. No rashes. Extremities: No lower extremity edema. No joint swelling. Neuro/psych: Oriented X 3. No motor deficit. No sensory deficit. CN II-XII intact. Normal speech and cognition. Course Reevaluation(s) Reevaluation #1: Patient's CTA is not show any evidence of aortic dissection, AAA is stable, slightly larger from 2 years ago. His blood pressure was over 200 systolic with increased anxiety. He was given his home amlodipine and Seroquel with improvement in his blood pressure. His workup was largely unremarkable so far aside from a mild leukocytosis, mildly elevated lactic acid. No clear source of infection. Time: 15:28 Medications Administered Discontinued Medications Generic Name Dose Route Start Last Admin Trade Name Freq PRN Reason Stop Dose Admin Acetaminophen 975 mg 12/30/23 15:30 12/30/23 15:35 Acetaminophen 325 Mg Tablet PO 12/30/23 15:31 975 mg ONCE ONE Administration Amlodipine Besylate 5 mg 12/30/23 14:04 12/30/23 16:23 Amlodipine Besylate 5 Mg Tablet PO 12/30/23 14:05 5 mg ONCE ONE Administration Protocol Sodium Chloride 1,000 mls @ 999 mls/hr 12/30/23 12:30 12/30/23 15:26 Ns IV 12/30/23 13:30 Infused .Q1H1M ZARINA Infusion Sodium Chloride 1,000 mls @ 999 mls/hr 12/30/23 15:15 12/30/23 15:27 Ns IVCONT 12/30/23 16:15 999 mls/hr .Q1H1M ZARINA Administration Iohexol 100 ml 12/30/23 12:28 12/30/23 12:28 Iohexol 350 Mg/Ml 100 Ml Infus..Btl IV 12/30/23 12:29 100 ml ONCE ONE Administration Ondansetron HCl 4 mg 12/30/23 12:24 12/30/23 12:32 Ondansetron Hcl 4 Mg/2 Ml Vial IVPUSH 12/30/23 12:25 4 mg ONCE ONE Administration Quetiapine Fumarate 50 mg 12/30/23 14:33 12/30/23 14:51 Quetiapine Fumarate 50 Mg Tablet PO 12/30/23 14:34 50 mg ONCE ONE Administration Medical Decision Making Medical Decision Making [facility] Narrative: 68 male with multiple medical comorbidities including stroke, HTN, COPD, CKD, CAD s/p PCI, who is approximately 1 month status post right hip replacement at [facility], coming from home via EMS for evaluation of headaches, nausea, shortness of breath and generalized weakness. Upon review of records patient does have a history of an infrarenal AAA that measured 5 cm on imaging in 2021. 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 He is not on anticoagulation per review of his home medications. On arrival to the ER patient has vastly asymmetric blood pressures with the blood pressure in the right arm in the 200 systolic and blood pressure in the left arm in the 140 systolic. Unable to appreciate is strong left-sided femoral pulse. He does have cool bilateral lower extremities with 2+ PT and DP pulses distally. CT angiogram of the chest, abdomen and pelvis were performed which showed stable AAA. Patient had continually elevated blood pressures in the right arm, 180-200 systolic. Meds were reviewed he is on low-dose amlodipine and metoprolol at home. Heart rates were in the 50s so p.o. amlodipine was given with brief improvement in his blood pressure. Blood pressure again went back up to 190s so IV labetalol was given as his heart rates had improved and he is on chronic beta blockers. Ninety admit the patient for further management of symptomatic hypertension and hypertensive urgency Differential Diagnosis Differential Diagnoses: The differential diagnosis associated with the presentation includes HTN urgency, HTN emergency, aortic dissection, gastroenteritis, CHF, COPD, subclavian steal Admission/Observation Consideration of admission/observation: Escalation of care including admission/observation considered Consult Healthcare Provider Management of the patient was discussed with: Hospitalist Lab Data [facility] Lab Attestation statement: I reviewed the patient's lab results. Mild leukocytosis, renal dysfunction at baseline, mild anemia 12/30/23 12:08 12/30/23 12:08 Labs: Lab Results 12/30/23 12/30/23 12/30/23 Range/Units 12:08 12:09 12:13 WBC 12.0 H (4.8-10.8) X10*3/uL RBC 4.43 L (4.60-5.80) X10*6/uL Hgb 12.6 L (14.0-18.0) g/dl Hct 38.3 L (42.0-52.0) % MCV 86.5 (80.0-98.0) fL MCH 28.4 (27.0-33.0) pg MCHC 32.9 (31.0-36.0) g/dl RDW 14.5 (11.0-16.0) % Plt Count 295 (160-400) X10*3/uL MPV 10.8 (9.4-12.4) fL Immature Gran % (Auto) 0.5 H (0.0-0.4) % Neut % (Auto) 51.0 (45-73) % Lymph % (Auto) 36.4 (20-40) % [place] % (Auto) 8.2 (2-11) % Eos % (Auto) 2.8 (0-4) % Baso % (Auto) 1.1 (0-2) % Lymph # (Auto) 4.4 (1.2-4.9) X10*3/uL [place] # (Auto) 1.0 (0.1-1.2) X10*3/uL Eos # (Auto) 0.3 (0.0-0.4) X10*3/uL Baso # (Auto) 0.1 (0.0-0.2) X10*3/uL Abs Immat Gran (auto) 0.06 H (0.00-0.03) X10*3/uL Absolute Neuts (auto) 6.1 (2.0-8.3) x10*3/uL Absolute Nucleated RBC 0.000 (0.0-0.012) X10*3/uL Nucleated RBC % (auto) 0.0 (0.0-0.2) /100WBC ESR 42 H (0-15) MM/HR PT 12.9 (11.1-13.3) SEC INR 1.1 (0.9-1.1) APTT 31.9 (26.0-36.8) SEC VBG pH 7.51 H (7.32-7.43) VBG pCO2 26 mmHg VBG pO2 35 mmHg VBG HCO3 21 L (22-26) mmol/L VBG O2 Saturation 73.0 % VBG Base Excess -0.1 mmol/L Sodium 139 (135-145) mmol/L Potassium 4.5 (3.3-5.1) mmol/L Chloride 106 (96-108) mmol/L Carbon Dioxide 19 L (22-29) mmol/L Anion Gap 19 (12-20) BUN 26 H (9-16) mg/dL Creatinine 2.09 H (0.5-1.4) mg/dL Estim Creat Clear Calc 37.6 Estimated GFR 32 Random Glucose 103 (60-115) mg/dL Lactic Acid 2.2 H* (0.5-2.0) mmol/L Lactic Acid F/U @ 2Hr (0.5-2.0) mmol/L Calcium 9.3 (8.4-10.2) mg/dL Magnesium 1.9 (1.6-2.6) mg/dL Total Bilirubin 0.5 (0.0-1.0) mg/dL Direct Bilirubin 0.2 (0.0-0.5) mg/dL AST 17 (5-37) U/L ALT 14 (0-40) U/L Alkaline Phosphatase 187 H (39-117) U/L Total Creatine Kinase 58 (38-174) U/L Troponin I High Sens 6.3 (<3.5-35.0) ng/L C-Reactive Protein 1.34 H (< or = 0.50) mg/dL B-Natriuretic Peptide 172 H (<100) pg/mL Total Protein 7.5 (6.5-8.0) g/dL Albumin 3.4 L (3.5-5.0) g/dL Lipase 65 (8-78) U/L Procalcitonin 0.05 ng/mL TSH 1.63 (0.32-4.0) uIU/mL Urine Color Urine Appearance Urine pH (5.0-9.0) Ur Specific [place] (1.005-1.025) Urine Protein (Neg-Trace) mg/dL Urine Glucose (UA) (Negative) mg/dL Urine Ketones (Negative) mg/dL Urine Blood (Negative) Urine Nitrite (Negative) Ur Leukocyte Esterase (Negative) Blood Type O Positive Antibody Screen NEGATIVE 12/30/23 12/30/23 Range/Units 13:04 14:38 WBC (4.8-10.8) X10*3/uL RBC (4.60-5.80) X10*6/uL Hgb (14.0-18.0) g/dl Hct (42.0-52.0) % MCV (80.0-98.0) fL MCH (27.0-33.0) pg MCHC (31.0-36.0) g/dl RDW (11.0-16.0) % Plt Count (160-400) X10*3/uL MPV (9.4-12.4) fL Immature Gran % (Auto) (0.0-0.4) % Neut % (Auto) (45-73) % Lymph % (Auto) (20-40) % [place] % (Auto) (2-11) % Eos % (Auto) (0-4) % Baso % (Auto) (0-2) % Lymph # (Auto) (1.2-4.9) X10*3/uL [place] # (Auto) (0.1-1.2) X10*3/uL Eos # (Auto) (0.0-0.4) X10*3/uL Baso # (Auto) (0.0-0.2) X10*3/uL Abs Immat Gran (auto) (0.00-0.03) X10*3/uL Absolute Neuts (auto) (2.0-8.3) x10*3/uL Absolute Nucleated RBC (0.0-0.012) X10*3/uL Nucleated RBC % (auto) (0.0-0.2) /100WBC ESR (0-15) MM/HR PT (11.1-13.3) SEC INR (0.9-1.1) APTT (26.0-36.8) SEC VBG pH (7.32-7.43) VBG pCO2 mmHg VBG pO2 mmHg VBG HCO3 (22-26) mmol/L VBG O2 Saturation % VBG Base Excess mmol/L Sodium (135-145) mmol/L Potassium (3.3-5.1) mmol/L Chloride (96-108) mmol/L Carbon Dioxide (22-29) mmol/L Anion Gap (12-20) BUN (9-16) mg/dL Creatinine (0.5-1.4) mg/dL Estim Creat Clear Calc Estimated GFR Random Glucose (60-115) mg/dL Lactic Acid (0.5-2.0) mmol/L Lactic Acid F/U @ 2Hr 2.3 H* (0.5-2.0) mmol/L Calcium (8.4-10.2) mg/dL Magnesium (1.6-2.6) mg/dL Total Bilirubin (0.0-1.0) mg/dL Direct Bilirubin (0.0-0.5) mg/dL AST (5-37) U/L ALT (0-40) U/L Alkaline Phosphatase (39-117) U/L Total Creatine Kinase (38-174) U/L Troponin I High Sens (<3.5-35.0) ng/L C-Reactive Protein (< or = 0.50) mg/dL B-Natriuretic Peptide (<100) pg/mL Total Protein (6.5-8.0) g/dL Albumin (3.5-5.0) g/dL Lipase (8-78) U/L Procalcitonin ng/mL TSH (0.32-4.0) uIU/mL Urine Color Yellow Urine Appearance Clear Urine pH 8.5 (5.0-9.0) Ur Specific [place] 1.020 (1.005-1.025) Urine Protein Negative (Neg-Trace) mg/dL Urine Glucose (UA) Negative (Negative) mg/dL Urine Ketones Negative (Negative) mg/dL Urine Blood Negative (Negative) Urine Nitrite Negative (Negative) Ur Leukocyte Esterase Negative (Negative) Blood Type Antibody Screen Independent Interpretation I performed an independent interpretation of an: EKG and CT Scan Interpretation: CT scan with infrarenal AAA without any obvious dissection or thrombus, agree with radiology read EKG with sinus bradycardia, heart rate 53 beats per minute, normal RI interval, normal QTC, no ST segment elevations or depressions, no change from July Radiology Impression Discussion of test interpretation with radiology: I have reviewed the radiologist's reading. Radiologist Impression: CT/CT angio chest aorta IMPRESSION: Stable mild aneurysm of the ascending thoracic aorta measures 4.2 cm. Redemonstration of chronic left subclavian artery occlusion and possible [id number] stenosis of the left carotid origin. There is a chronic small ulceration at the origin of the right subclavian artery. Redemonstration of abdominal aortic aneurysm which has increased in size and now measures 5.5 x 5.3 cm at the level of the inferior mesenteric artery, previously 4.8 x 4.7 cm on the previous study of 11/03/2021. 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 Mild to moderate stenosis at the origin of the right renal artery. Unchanged 4 mm right upper lobe pulmonary nodule. Independent Historian Clinical information obtained from an independent historian. History obtained from or confirmed by: EMS External Record Review External record reviewed: Inpatient record, Office record, Outpatient record, Prior outpatient labs and Prior outpatient radiology Tests considered The following testing was considered but not selected: Considered CT head, he is not on anticoagulation, low clinical suspicion for spontaneous intracranial hemorrhage due to elevated blood pressure Prescription Management I considered prescription management with: Pain Medication and Antibiotic Chronic Conditions Patient?s care impacted by: Hypertension and Other (Subclavian artery stenosis, AAA) Social Determinants Patient?s care significantly limited by Social Determinants of Health including: Problems related to primary support group and Other Social Determinant of Health Critical Care Time Critical Care Time Critical Care Time: Yes Total Critical Care Time: 42 Attestation: I have personally provided critical care time exclusive of time spent on separately billable procedures. Time includes review of lab data, radiology results, discussion with consultants, and monitoring for potential decompensation. Intervention performed as documented. Discharge Plan Discharge Clinical Impression: Hypertensive urgency, Shortness of breath, Nausea Patient Disposition: Admitted As Inpatient Print Language: Syrian
--- NOTE | 2023-12-30 12:06 | PC.NURSE ---
Pt biba from home for sob/abd pain/nausea starting 3-4 days ago, pt states he has had a few episodes of vomiting. Pt diaphoretic, cold/clammy to the touch, skin appears pale, pt keeps stating I just feel tired . CMS intact right leg/foot, pt unable to feel me touching his left foot, he states his left foot/leg feels tingly/numb, pt states he has a hx of this happening at times. Strong femoral pulse on right side, unable to feel femoral pulse on left side. Pt states he feels sob, no cp/dizziness noted. A/ox3, lung sounds cta bilaterally, s1 and s2 heard, pt on conveyor monitor NSR HR- 60s, abdomen soft, tender on palpation. Per EMS pt BP had significant difference on both arms, R: 210/83 and L: 140s/80. Susanne CALDERON made aware and at bedside assessing. 20g IV placed in left ac, labs obtained and sent to lab. Pt awaiting CT scan at this time.
[2023-12-30 12:14] LABS: MANUAL DIFF FLAG NO
[2023-12-30 12:17] LABS: Venous Blood Gas Refer to POC result
[2023-12-30 12:18] LABS: VBG Base Excess -0.1 mmol/L; VBG HCO3 21 mmol/L (22-26); VBG pCO2 26 mmHg; VBG pH 7.51 (7.32-7.43); VBG pO2 35 mmHg
[2023-12-30 12:21] LABS: INTERNATIONAL NORM RATIO 1.1 (0.9-1.1); Prothrombin Time 12.9 SEC (11.1-13.3)
[2023-12-30 12:23] LABS: Partial Thromboplastin Time 31.9 SEC (26.0-36.8)
[2023-12-30 12:27] LABS: Basophils Absolute Auto 0.1 X10*3/uL (0.0-0.2); Basophils Percent Auto 1.1 % (0-2); Eosinophils Absolute Auto 0.3 X10*3/uL (0.0-0.4); Eosinophils Percent Auto 2.8 % (0-4); Hematocrit 38.3 % (42.0-52.0); Hemoglobin 12.6 g/dl (14.0-18.0); Imm Gran Abs Auto 0.06 X10*3/uL (0.00-0.03); Imm Gran Pct Auto 0.5 % (0.0-0.4); Lymphocytes Absolute Auto 4.4 X10*3/uL (1.2-4.9); Lymphocytes Percent Auto 36.4 % (20-40); Mean Corpuscular HGB Conc 32.9 g/dl (31.0-36.0); Mean Corpuscular Hemoglobin 28.4 pg (27.0-33.0); Mean Corpuscular Volume 86.5 fL (80.0-98.0); Mean Platelet Volume 10.8 fL (9.4-12.4); Monocytes Percent Auto 8.2 % (2-11); Neutrophils Absolute Auto 6.1 x10*3/uL (2.0-8.3); Platelet Count 295 X10*3/uL (160-400); Red Blood Count 4.43 X10*6/uL (4.60-5.80); Red Cell Distribution Width 14.5 % (11.0-16.0)
[2023-12-30] MEDS: iohexoL 350 MG/ML 100 ML INFUS..BTL IV (12:28)
[2023-12-30] MEDS: ondansetron HCL 4 MG/2 ML VIAL IVPUSH (12:32)
[2023-12-30] MEDS: 0.9 % Sodium Chloride 1,000 ML 999 ML IV (12:32)
[2023-12-30 12:35] LABS: B Type Natriuretic Peptide 172 pg/mL (<100)
[2023-12-30 12:37] LABS: Alanine Aminotransferase 14 U/L (0-40); Albumin Level 3.4 g/dL (3.5-5.0); Alkaline Phosphatase 187 U/L (39-117); Anion Gap 19 (12-20); Aspartate Amino Transferase 17 U/L (5-37); Bilirubin Direct 0.2 mg/dL (0.0-0.5); Bilirubin Total 0.5 mg/dL (0.0-1.0); Blood Urea Nitrogen 26 mg/dL (9-16); C Reactive Protein 1.34 mg/dL (< or = 0.50); Calcium 9.3 mg/dL (8.4-10.2); Carbon Dioxide 19 mmol/L (22-29); Chloride 106 mmol/L (96-108); Creatinine Clr Calc Pharmacy 37.6; Estimated Glomerular Filt Rate 32; Glucose Random 103 mg/dL (60-115); Lipase 65 U/L (8-78); Magnesium 1.9 mg/dL (1.6-2.6); Potassium 4.5 mmol/L (3.3-5.1); Sodium 139 mmol/L (135-145); Total Protein 7.5 g/dL (6.5-8.0); Troponin-I High Sensitivity 6.3 ng/L (<3.5-35.0)
[2023-12-30 12:38] LABS: Lactic Acid 2.2 mmol/L (0.5-2.0)
--- OUTSIDE RECORDS SUMMARY | 2023-12-30 12:49 | XMS_ITS | Continuity of Care Document ---
Author Organization [facility] Kunal Aldair Address [address] [place] [address]- Care Team Providers Care Middle Stitcher Name Role Phone Maria Esther URISA, Balaji Quick Primary Care Physician Encounter [facility] Date(s): 09/07/20 - 10/07/20 [facility] Adult [address] [place] [address]- Allergies, Adverse Reactions, Alerts Substance Reaction Severity Status Claritin Active Clozaril Active Benadryl Active Vistaril Active Nuts Active Abilify Active Nicotine Patch Active Immunizations Given and Recorded Vaccine Date Status Refusal Reason SARS-CoV-2 (COVID-19) mRNA BNT-162b2 vac 07/09/20 Recorded SARS-CoV-2 (COVID-19) mRNA BNT-162b2 vac 06/18/20 Recorded influenza virus vaccine, inactivated 03/04/20 Give n influenza virus vaccine, inactivated 01/29/19 Give n influenza virus vaccine, inactivated 1 02/15/18 Gi juan tetanus/diphtheria/pertussis, acel(Tdap) 2 08/02/17 Given 1Result Comment: [02/15/2018] 51370-874-12 2Result Comment: [08/02/2017] [facility] [id number] Medications amLODIPine 5 mg oral tablet 2.5 mg, 0.5, tablet, By Mouth, 2 times a day, Refills 0, Maintenance, 09/01/20 10:53:00 EDT, Partial fill upon patient request if the prescription is for a schedule II opioid drug. Start Date: 09/01/20 Status: Ordered Aspirin Tablet 81 mg, By Mouth, Daily, Refills 0, Maintenance, 09/01/20 10:52:00 EDT, Partial fill upon patient request if the prescription is for a schedule II opioid drug. Start Date: 09/01/20 Status: Ordered atorvastatin 80 mg oral tablet 1 tablet = 80 mg, By Mouth, Daily, # 90 tablet, 0 Refills, Maintenance, 08/18/20 1:48:00 EDT, Tablet, Partial fill upon patient request if the prescription is for a schedule II opioid drug. Start Date: 08/18/20 Status: Ordered BuPROPion (Eqv-Wellbutrin SR) 150 mg/12 hours oral tablet, extended release 1 tablet = 150 mg, By Mouth, 2 times a day, 0 Refills, Maintenance, 08/18/20 1:48:00 EDT, Partial fill upon patient request if the prescription is for a schedule II opioid drug. Start Date: 08/18/20 Status: Ordered clopidogrel 75 mg oral tablet 1, tablet, By Mouth, Daily, # 90 tablet, Refills 0, Tot. Refills 0, Maintenance, 09/14/20 12:44:00 EDT, Route to Pharmacy Electronically, [facility] #[id number], 180, cm, 09/07/20 10:33:00 EDT, Height Start Date: 09/14/20 Status: Ordered Flonase 50 mcg/inh nasal spray 1 sprays = 50 mcg, Nares, Both, 2 times a day, # 16 Gm, 5 Refills, Maintenance, 09/29/20 16:49:00 EDT, Nasal [place], [facility] #[id number], Partial fill upon patient request if the prescription is for a schedule II opioid drug., 1 sprays Scottie B... Start Date: 09/29/20 Status: Ordered FLUoxetine 40 mg oral capsule 1 capsule = 40 mg, By Mouth, Daily, # 30 capsule, 0 Refills, Maintenance, 08/18/20 1:49:00 EDT, Capsule, Partial fill upon patient request if the prescription is for a schedule II opioid drug. Start Date: 08/18/20 Status: Ordered isosorbide mononitrate 30 mg oral tablet, extended release 30 mg, 1, tablet, By Mouth, Daily in AM, # 30 tablet, Refills 5, Tot. Refills 5, Maintenance, 09/13/20 6:59:00 EDT, Route to Pharmacy Electronically, [facility] #[id number], Partial fill upon patient request if the prescription is for a schedule... Start Date: 09/13/20 Status: Ordered lamotrigine 25 mg oral tablet 25 mg, 1, tablet, By Mouth, Daily, Refills 0, Maintenance, 09/01/20 10:54:00 EDT, Partial fill uponpatient request if the prescription is for a schedule II opioid drug. Start Date: 09/01/20 Status: Ordered lidocaine 5% topical film 1 patch, Topically, Daily, PRN Pain , Mild, remove after 12 hours, # 13 each, 0 Refills, Maintenance, 08/18/20 1:49:00 EDT, Film, Partial fill upon patient request if the prescription is for a schedule II opioid drug. Start Date: 08/18/20 Status: Ordered Metoprolol Tartrate 25 mg oral tablet 1 tablet, By Mouth, 2 times a day, # 180 tablet, 0 Refills, Maintenance, 09/14/20 12:44:00 EDT, [facility] #[id number], 180, cm, 09/07/20 10:33:00 EDT, Height Start Date: 09/14/20 Status: Ordered nitroglycerin 0.4 mg sublingual tablet 1 tablet = 0.4 mg, Sublingual, Every 5 minutes, PRN as needed for chest pain, not to exceed 3 doses/15 min--if pain persists, seek medical attention, # 100 tablet, 0 Refills, Maintenance, 08/18/20 1:49:00 EDT, Tablet, Partial fill upon patient request... Start Date: 08/18/20 Status: Ordered oxybutynin 5 mg/24 hours oral tablet, extended release 1 tablet = 5 mg, By Mouth, Daily, # 30 tablet, 0 Refills, Maintenance, 08/18/20 1:49:00 EDT, ER Tablet, Partial fill upon patient request if the prescription is for a schedule II opioid drug. Start Date: 08/18/20 Status: Ordered QUEtiapine 400 mg oral tablet, extended release 400 mg, 1, tablet, By Mouth, Daily in PM, # 30 tablet, Refills 0, Maintenance, 08/18/20 1:49:00 EDT, Partial fill upon patient request if the prescription is for a schedule II opioid drug. Start Date: 08/18/20 Status: Ordered tamsulosin 0.4 mg oral capsule 0.4 mg, 1, capsule, By Mouth, Daily, # 90 capsule, Refills 3, Tot. Refills 3, Maintenance, 217:58:00 EDT, Route to Pharmacy Electronically, [facility] #[id number], Partial fill upon patient request if the prescription is for a schedule II... Start Date: 09/15/20 Status: Ordered traZODone 100 mg oral tablet 200 mg, 2, tablet, By Mouth, Daily at bedtime, # 180 tablet, Refills 0, Maintenance, 08/18/20 1:50:00 EDT, Partial fill upon patient request if the prescription is for a schedule II opioid drug. 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
--- OUTSIDE RECORDS SUMMARY | 2023-12-30 12:49 | XMS_ITS | Continuity of Care Document ---
Author Organization [facility] Address [address] [facility], [address] [place] [address]- Care Team Providers Care Research And Evaluation Analyst Name Role Phone Maria Esther URIAS, Balaji Quick Primary Care Physician [phone] Encounter 11/08/19 - 12/25/19 [facility] [address], [address] [place] [address]- [phone] Attending Physician: Andre HYATT, Michelle Garcia Admitting Physician: Andre HYATT, Michelle Garcia Referring Physician: Balaji Mayo MD Allergies, Adverse Reactions, Alerts Substance Reaction Severity Status Claritin Active Clozaril Active Benadryl Active Vistaril Active Nuts Active Abilify Active Nicotine Patch Active Immunizations Given and Recorded Vaccine Date Status Refusal Reason influenza virus vaccine, inactivated 01/29/19 Give n influenza virus vaccine, inactivated 1 02/15/18 Gi juan tetanus/diphtheria/pertussis, acel(Tdap) 2 08/02/17 Given 1Result Comment: [02/15/2018] 96233-215-17 2Result Comment: [08/02/2017] [facility] [id number] Medications amLODIPine 5 mg oral tablet 5 mg, 1, tablet, By Mouth, Daily, # 90 tablet, Refills 3, Tot. Refills 3, Maintenance, 11/26/19 16:38:00 EDT, Route to Pharmacy Electronically, [facility]/pharmacy #[id number], 180, cm, 06/26/19 8:31:00 EST, Height Start Date: 11/26/19 Status: Ordered Aspirin Tablet 81 mg, By Mouth, Daily, Maintenance, 04/15/13 17:02:08 Start Date: 04/15/13 Status: Ordered atorvastatin 80 mg oral tablet 1 tablet = 80 mg, By Mouth, Daily in AM, # 90 tablet, 1 Refills, Maintenance, 11/19/19 15:39:00 EDT, Tablet, [facility]/pharmacy #[id number], 180, cm, 06/26/19 8:31:00 EST, Height, Dry Weight Start Date: 11/19/19 Stop Date: 05/17/20 Status: Ordered buPROPion 150 mg/12 hours (SR) oral tablet, extended release 1 tablet = 150 mg, By Mouth, 2 times a day Start Date: 07/07/16 Status: Ordered clopidogrel 75 mg oral tablet See Instructions, # 90 tablet, Refills 5 Tot. Refills 5, TAKE 1 TABLET BY MOUTH EVERY DAY, [facility]/pharmacy #[id number] Start Date: 03/14/19 Status: Ordered cyclobenzaprine 5 mg oral tablet 1 tablet = 5 mg, By Mouth, 2 times a day, PRN as needed for muscle spasm, # 60 tablet, 2 Refills, Maintenance, 04/07/19 18:48:10 EST, Tablet, [facility]/pharmacy #[id number], 180, cm, 01/29/19 9:22:52 EDT, Height, 109.8, kg, 07/19/17 9:26:47 EDT, Dry Weight Start Date: 04/07/19 Status: Ordered Ditropan XL 5 mg/24 hours oral tablet, extended release 1 tablet = 5 mg, By Mouth, Daily, 0 Refills, Maintenance, 12/16/14 12:57:43 Start Date: 12/16/14 Status: Ordered famotidine 20 mg oral tablet 20 mg, 1, tablet, By Mouth, 2 times a day, replaces ranitidine, # 60 tablet, Refills 5, Tot. Refills 5, Maintenance, 10/24/19 18:11:00 EDT, Route to Pharmacy Electronically, [facility]/pharmacy #1, 180, cm, 06/26/19 8:31:00 EST, Height Start Date: 10/24/19 Status: Ordered Flomax 0.4 mg oral capsule 0.4 mg, 1, capsule, By Mouth, Daily, # 30 capsule, Refills 11, Tot. Refills 11, Maintenance, 04/20/18 9:51:29 EST, Route to Pharmacy Electronically, [id number], [facility]/pharmacy#[id number] Start Date: 04/20/18 Status: Ordered Flonase 50 mcg/inh nasal spray 2 sprays, Nares, Both, 2 times a day, # 16 Gm, 0 Refills, Maintenance, 11/16/18 10:23:39 EDT, [place] Start Date: 11/16/18 Status: Ordered isosorbide mononitrate 30 mg oral tablet, extended release 30 mg, 1, tablet, By Mouth, Daily in AM, # 90 tablet, Refills 1, Tot. Refills 1, Maintenance, 04/25/19 15:31:00 EST, Route to Pharmacy Electronically, [facility]/pharmacy #[id number], 180, cm, 01/29/19 9:22:00 EDT, Height, 109.8, kg, 07/19/17 9:26:00 EDT, Dry Weight Start Date: 04/25/19 Status: Ordered Lamictal 100 mg oral tablet 1 tablet = 100 mg, By Mouth, 2 times a day, 0 Refills, Maintenance, 12/16/14 12:57:08 Start Date: 12/16/14 Status: Ordered Lidoderm 5% film See Instructions, Apply to affected area Topically Daily remove patches after 12 hours, # 30 patch,5 Refills, Maintenance, 06/26/19 9:19:00 EST, [facility]/pharmacy #[id number], Apply to affected area Topically Daily; remove patches after 12 hours, 180, cm, 03/0... Start Date: 06/26/19 Status: Ordered metoprolol 25 mg oral tablet 25 mg, 1, tablet, By Mouth, 2 times a day, # 60 tablet, Refills 5, Tot. Refills 5, Maintenance, 09/18/19 16:23:00 EDT, Route to Pharmacy Electronically, [facility]/pharmacy #[id number], 180, cm, 06/26/19 8:31:00 EST, Height, Dry Weight Start Date: 09/18/19 Status: Ordered nitroglycerin 0.4 mg sublingual tablet 1 tablet = 0.4 mg, Sublingual, Every 5 minutes, PRN for chest pain, # 100 tablet, 0 Refills, Maintenance, 11/16/18 10:24:35 EDT, Tablet Start Date: 7/26/19 Status: Ordered Prozac 40 mg oral capsule 1 capsule = 40 mg, By Mouth, Daily, 0 Refills, Maintenance, 07/01/14 8:50:53 Start Date: 07/01/14 Status: Ordered SEROquel XR 400 mg oral tablet, extended release TAKE 1 TABLET BY MOUTH AT BEDTIME Start Date: 07/07/16 Status: Ordered trazodone 100 mg oral tablet 2 tablet = 200 mg, By Mouth, Daily at bedtime, 0 Refills, Maintenance, 04/15/13 17:01:16, Tablet Start Date: 04/15/13 Status: Ordered Problem List Condition Effective Dates Status Health Status Inform ant Bipolar disorder(Confirmed) Active BPH (benign prostatic hyperplasia)(Confirmed) Active Carotid artery stenosis(Confirmed) Active Coronary arteriosclerosis(Confirmed) 1 Active Essential hypertension(Confirmed) Active Gastroesophageal reflux disease(Confirmed) Active Hyperlipidemia(Confirmed) Active 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
--- OUTSIDE RECORDS SUMMARY | 2023-12-30 12:49 | XMS_ITS | Continuity of Care Document ---
Author Organization [facility] Kunal Aldair lt Address [address] [place] [address]- Care Team Providers Care Station Mechanic Apprentice Name Role Phone Balaji Mayo MD Primary Care Physician [place] [facility] [place] 06[place]15[place]23 - 06/22/23 [facility] Adult [address] [place] [address]- Encounter Diagnosis AAA (abdominal aortic aneurysm)(Discharge Diagnosis) - 06/15/23 Coronary arteriosclerosis(Discharge Diagnosis) - 06/15/23 HTN (hypertension)(Discharge Diagnosis) - 06/15/23 Tobacco use(Discharge Diagnosis) - 06/15/23 Bipolar disorder(Discharge Diagnosis) - 06/15/23 Attending Physician: Balaji Mayo MD Allergies, Adverse Reactions, Alerts Substance Reaction Severity Status Claritin Active Clozaril Active Benadryl Active Vistaril Active Nuts Active Abilify Active Nicotine Patch Active Immunizations Given and Recorded Vaccine Date Status Refusal Reason influenza virus vaccine, inactivated 01/28/23 Give n influenza virus vaccine, inactivated 02/17/21 Hakeem rded influenza virus vaccine, inactivated 03/04/20 Give n influenza virus vaccine, inactivated 01/29/19 Give n influenza virus vaccine, inactivated 1 02/15/18 Gi juan pneumococcal 20-valent conjugate vaccine 2 12/20/21 Given SARS-CoV-2 (COVID-19) mRNA BNT-162b2 vac 02/17/21 Recorded SARS-CoV-2 (COVID-19) mRNA BNT-162b2 vac 07/09/20 Recorded SARS-CoV-2 (COVID-19) mRNA BNT-162b2 vac 06/18/20 Recorded tetanus/diphtheria/pertussis, acel(Tdap) 3 4/11/18 Given pneumococcal 23-valent vaccine 05/03/17 Recorded pneumococcal 23-valent vaccine 12/17/12 Recorded 1Result Comment: [02/15/2018] [id number] 2Result Comment: [id number] 3Result Comment: [08/02/2017] [facility] [id number] Medications Aspirin Low Dose 81 mg oral delayed release tablet 1 tablet, By Mouth, Daily, # 90 tablet, 3 Refills, Maintenance, 11/08/22 11:19:00 EDT, [facility] #[id number], 184, cm, 11/03/22 11:28:00 EDT, Height, 106.3, kg, 09/13/22 12:30:00 EDT, Dry Weight Start Date: 11/08/22 Status: Ordered atorvastatin 80 mg oral tablet 1 tablet = 80 mg, By Mouth, Daily, # 90 tablet, 3 Refills, Maintenance, 12/05/22 4:30:00 EDT, Tablet, [facility] #[id number], Partial fill upon patient request if the prescription is for a schedule II opioid drug., 183, cm, 11/10/22 17:28:00 EDT,... Start Date: 12/05/22 Status: Ordered BuPROPion (Eqv-Wellbutrin SR) 150 mg/12 hours oral tablet, extended release 1 tablet = 150 mg, By Mouth, 2 times a day, # 180 tablet, 3 Refills, Maintenance, 10/05/21 17:37:00EDT, SR Tablet, [facility] #[id number], Partial fill upon patient request if the prescription is for a schedule II opioid drug., 182, cm, 09/10/21... Start Date: 10/05/21 Status: Ordered clopidogrel 75 mg oral tablet 1, tablet, By Mouth, Daily, # 90 tablet, Refills 3, Maintenance, 01/13/23 16:50:00 EDT, Route to Pharmacy Electronically, [facility] #[id number], 183, cm, 12/05/22 16:08:00 EDT, Height, 106.3, kg, 09/13/22 12:30:00 EDT, Dry Weight Start Date: 01/13/23 Status: Ordered Flonase 50 mcg/inh nasal spray 1 sprays = 50 mcg, Nares, Both, 2 times a day, # 16 Gm, 5 Refills, Maintenance, 09/15/22 8:26:00 EDT, Nasal [place], [facility] #[id number], Partial fill upon patient request if the prescription is for a schedule II opioid drug., 1 sprays Nares, [place]... Start Date: 09/15/22 Status: Ordered FLUoxetine 40 mg oral capsule 1 capsule = 40 mg, By Mouth, Daily, # 90 capsule, 3 Refills, Maintenance, 10/05/21 17:34:00 EDT, Capsule, [facility] #[id number], Partial fill upon patient request if the prescription is for a schedule II opioid drug., 182, cm, 09/10/21 8:13:00 E... Start Date: 10/05/21 Status: Ordered lamotrigine 100 mg oral tablet 200 mg, 2, tablet, By Mouth, 2 times a day, # 120 tablet, Refills 0, Tot. Refills 0, Maintenance, 03/02/23 4:05:00 EST, Do Not Route, Partial fill upon patient request if the prescription is for a schedule II opioid drug. Start Date: 03/02/23 Status: Ordered Lidoderm 5% film Topically, Daily, 0 Refills, Maintenance, 12/05/22 16:07:00 EDT, Partial fill upon patient request if the prescription is for a schedule II opioid drug. Start Date: 12/05/22 Status: Ordered Nitrostat 0.4 mg sublingual tablet 1 tablet = 0.4 mg, Sublingual, Every 5 minutes, PRN Chest Pain, prn, # 30 tablet, 11 Refills, Maintenance, 11/30/22 6:36:00 EDT, Tablet, [facility] #[id number], Partial fill upon patient requestif the prescription is for a schedule II opioid lisa... Start Date: 11/30/22 Status: Ordered Norvasc 2.5 mg oral tablet 2.5 mg, 1, tablet, By Mouth, Daily, Refills 0, Maintenance, 03/01/23 10:56:00 EST, Partial fill upon patient request if the prescription is for a schedule II opioid drug. Start Date: 03/01/23 Status: Ordered omeprazole 20 mg oral enteric coated capsule 1 capsule = 20 mg, By Mouth, Daily, # 30 capsule, 1 Refills, Maintenance, 09/28/22 9:21:00 EDT, [facility] #[id number], Partial fill upon patient request if the prescription is for a schedule IIopioid drug., 184, cm, 09/28/22 9:02:00 EDT, Height... Start Date: 09/28/22 Stop Date: 11/27/22 Status: Ordered QUEtiapine 400 mg oral tablet, extended release 400 mg, 1, tablet, By Mouth, Daily at bedtime, Maintenance, 09/13/22 17:09:00 EDT, Partial fill upon patient request if the prescription is for a schedule II opioid drug. Start Date: 09/13/22 Status: Ordered Senna 8.6 mg oral tablet 8.6 mg, 1, tablet, By Mouth, Daily at bedtime, Refills 0, Maintenance, 03/21/23 16:15:00 EST, Partial fill upon patient request if the prescription is for a schedule II opioid drug. Start Date: 03/21/23 Status: Ordered traZODone 100 mg oral tablet 200 mg, 2, tablet, By Mouth, Daily at bedtime, # 180 tablet, Refills 3, Tot. Refills 3, Maintenance, 10/05/21 17:36:00 EDT, Route to Pharmacy Electronically, [facility] #[id number], Partial fillupon patient request if the prescription is for a s... Start Date: 10/05/21 Status: Ordered Tylenol 8 Hour 650 mg oral tablet, extended release 2 tablet = 1,300 mg, By Mouth, Every 8 hours, 0 Refills, Maintenance, 03/21/23 16:15:00 EST, Partial fill upon patient request if the prescription is for a schedule II opioid drug. Start Date: 03/21/23 Status: Ordered Problem List Condition Confirmation Course Effective Dates Status H ealt Status Informant AAA (abdominal aortic aneurysm) Confirmed Active Bipolar disorder Confirmed Active BPH (benign prostatic hyperplasia) Confirmed Active Carotid artery stenosis Confirmed Active Chest pain Confirmed Active CKD (chronic kidney disease) stage 3, GFR 30-59 ml/min Confirmed Active COVID-19 1 Confirmed 10/28/21 Active Essential hypertension Confirmed Active Gastroesophageal reflux disease Confirmed Active Hyperglycemia Confirmed Active Hyperlipidemia Confirmed Active HTN (hypertension) Confirmed Active Pulmonary nodule Confirmed Active 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 Active 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 Active Peripheral vascular disease Confirmed Active Renal artery stenosis Confirmed Active Schizoaffective schizophrenia Confirmed Active Stenosis of left subclavian artery Confirmed Active Tobacco use Confirmed Active Tubular adenoma of colon 2 Confirmed 06/25/18 Active 1Problem added by Discern Expert 2repeat screening colonoscopy in 2021 Diagnosis Diagnosis Type Effective Dates Health Status Clinical Service Informant AAA (abdominal aortic aneurysm) Discharge Diagnosis 06/15/23 Coronary arteriosclerosis Discharge Diagnosis 06/15/23 HTN (hypertension) Discharge Diagnosis 06/15/23 Tobacco use Discharge Diagnosis 06/15/23 Bipolar disorder Discharge Diagnosis 06/15/23 Vital Signs Most recent to oldest [Reference Range]: 1 2 Height 183 cm (06/15/23 10:22 AM) 183 cm (06/15/23 10:18 AM) Weight 95.3 kg (06/15/23 10:18 AM) Oxygen Saturation [94-100 %] 98 % (06/15/23 10:18 AM) Pulse Rate [55-90 bpm] 80 bpm (06/15/23 10:18 AM) Body Mass Index [18.5-24.99 kg/m2] 28.46 kg/m2 *H* (06/15/23 10:18 AM) Blood Pressure [90-138/55-84 mm Hg] 156/ 87mm Hg *H* (06/15/23 10:22 AM) 154/83mm Hg *H* (06/15/23 10:18 AM) Mode of Delivery (Oxygen) Room air (06/15/23 10:18 AM) Blood pressure sites Arm, right (06/15/23 10:22 AM) Arm, right (06/15/23 10:18 AM) Weight Obtained Via Standing scale (06/15/23 10:18 AM) Social History Social History Type Response Smoking Status Cigars or pipes denise y within last 30 days entered on: 06/01/23 Sex Patient Care team information Care Team Personnel Name: [place] RN Position: [facility] ED RN W/OE and Tasks Member Role: Primary Care Nurse Name: Esme Garcia RN Position: S RN Member Role: Primary Care Nurse Name: Erich Dias RN Position: S RN Member Role: Primary Care Nurse Name: Camila Vazquez RN Position: [facility] RN Member Role: Primary Care Nurse Name: Taylor Beck RN Position: [facility] RN Member Role: Primary Care Nurse Name: Amanda Garibay RN Position: [facility] RN Member Role: Primary Care Nurse Name: Mary Roberson RN Position: [facility] RN Member Role: Primary Care Nurse Name: Tomas Stauffer RN Position: [facility] RN Member Role: Primary Care Nurse Name: Balaji Mayo MD Position: [facility] Physician - Primary Care Member Role: PCP Address: Address: [address] [place] [address] [place] Care Team Related Persons Name: YAKOV ROSANA Address: home [address] [place] [id number] Name: GORAN QUINTERO
--- OUTSIDE RECORDS SUMMARY | 2023-12-30 12:49 | XMS_ITS | Continuity of Care Document ---
Author Organization [facility] Address [address] [place] [address]- Care Team Providers Care Universal Grinder Set Up Operator Name Role Phone Balaji Mayo MD Primary Care Physician [phone] [place] [facility] [id number] Date(s): 01/26/21 - 02/02/21 [facility] [address] [place] [address]- Attending Physician: Rose HYATT, Key Han Admitting Physician: Rose HYATT, Key Han Referring Physician: Balaji Mayo MD Allergies, Adverse Reactions, Alerts Substance Reaction Severity Status Claritin Active Clozaril Active Benadryl Active Abilify Active Vistaril Active Nuts Active Nicotine Patch Active Immunizations Given and Recorded Vaccine Date Status Refusal Reason SARS-CoV-2 (COVID-19) mRNA BNT-162b2 vac 07/09/20 Recorded SARS-CoV-2 (COVID-19) mRNA BNT-162b2 vac 06/18/20 Recorded influenza virus vaccine, inactivated 03/04/20 Give n influenza virus vaccine, inactivated 01/29/19 Give n influenza virus vaccine, inactivated 1 02/15/18 Gi juan tetanus/diphtheria/pertussis, acel(Tdap) 2 08/02/17 Given 1Result Comment: [02/15/2018] 49812-635-57 2Result Comment: [08/02/2017] [facility] 72793-995-33 Medications amLODIPine 5 mg oral tablet 2.5 [...] 09/14/20 12:44:00 EDT, Route to Pharmacy Electronically, [facility] #[id number], 180, cm, 09/07/20 10:33:00 EDT, Height Start Date: 09/14/20 Status: Ordered Flonase 50 mcg/inh nasal spray 1 sprays = 50 mcg, Nares, Both, 2 times a day, # 16 Gm, 5 Refills, Maintenance, 09/29/20 16:49:00 EDT, Nasal [place], [facility] #[id number], Partial fill upon patient request if the prescription is for a schedule II opioid drug., 1 sprays Nares, B... Start Date: 09/29/20 Status: Ordered FLUoxetine [...] 09/13/20 6:59:00 EDT, Route to Pharmacy Electronically, [facility] #[id number], Partial fill upon patient request if the [...] tablet, 0 Refills, Maintenance, 09/14/20 12:44:00 EDT, [facility] #[id number], 180, cm, 09/07/20 10:33:00 EDT, Height Start Date: 09/14/20 Status: Ordered nitroglycerin 0.4 mg sublingual tablet 1 tablet = 0.4 mg, Sublingual, Every 5 minutes, PRN as needed for chest pain, not to exceed 3 doses/15 min--if pain persists, seek medical attention, # 100 tablet, 0 Refills, Maintenance, 08/18/20 1:49:00 EDT, Tablet, Partial fill upon patient request... Start Date: 08/18/20 Status: Ordered QUEtiapine 400 [...] capsule, Refills 3, Tot. Refills 3, Maintenance, 05/25/217:58:00 EDT, Route to Pharmacy Electronically, [facility] #[id number], Partial fill upon patient request if the [...] Carotid artery stenosis(Confirmed) Active Chest pain(Confirmed) Active CKD (chronic kidney disease) stage 3, GFR 30-59 ml/min(Confirmed) Active Coronary arteriosclerosis(Confirmed) 1 Active Essential hypertension(Confirmed) [...] by duplex 3repeat screening colonoscopy in 2021 Vital Signs Most recent to oldest [Reference Range]: 1 Height 180 cm (01/26/21 1:02 PM) Weight 104.54 kg (01/26/21 1:02 PM) Oxygen Saturation [94-100 %] 98 % (01/26/21 1:02 PM) Pulse Rate [55-90 bpm] 82 bpm (01/26/21 1:02 PM) Body Mass Index [18.5-24.99] 32.27 *>HHI* (01/26/21 1:02 PM) Blood Pressure [90-138/55-84 mm Hg] 126/ 76mm Hg (01/26/21 1:02 PM) Mode of Delivery (Oxygen) Room air (01/26/21 1:02 PM) Blood pressure sites Arm, right (01/26/21 1:02 PM) Weight Obtained Via Patient/family state d (01/26/21 1:02 PM) Social History Social History Type Response Smoking Status Current some day mata garza entered on: 02/15/18 Sex
--- OUTSIDE RECORDS SUMMARY | 2023-12-30 12:49 | XMS_ITS | Continuity of Care Document ---
Author Organization [facility] Kunal Aldair lt Address [address] [place] [address]- Care Team Providers Care Phone Representative Name Role Phone Maria Esther URIAS, Balaji Quick Primary Care Physician [phone] Encounter [facility] [place] Date(s): 08/10/22 - 09/09/22 [facility] [place] [facility] [address] [place] [address]- Allergies, Adverse Reactions, Alerts Substance Reaction Severity Status Claritin Active Clozaril Active Benadryl Active Vistaril Active Nuts Active Abilify Active Nicotine Patch Active Immunizations Given and Recorded Vaccine Date Status Refusal Reason pneumococcal 20-valent conjugate vaccine 1 12/20/21 Given influenza virus vaccine, inactivated 02/17/21 Hakeem rded influenza virus vaccine, inactivated 03/04/20 Give n influenza virus vaccine, inactivated 01/29/19 Give n influenza virus vaccine, inactivated 02/15/18 Gi juan SARS-CoV-2 (COVID-19) mRNA BNT-162b2 vac 02/17/21 Recorded SARS-CoV-2 (COVID-19) mRNA BNT-162b2 vac 07/09/20 Recorded SARS-CoV-2 (COVID-19) mRNA BNT-162b2 vac 06/18/20 Recorded tetanus/diphtheria/pertussis, acel(Tdap) 3 08/02/17 Given pneumococcal 23-valent vaccine 05/03/17 Recorded pneumococcal 23-valent vaccine 12/17/12 Recorded 1Result Comment: [id number] 2Result Comment: [02/15/2018] [id number] 3Result Comment: [08/02/2017] [facility] 67644-898-34 Medications aspirin 81 mg oral delayed release tablet = 81 mg, By Mouth, Daily, # 90 tablet, 3 Refills, Maintenance, 10/05/21 17:34:00 EDT, EC Tablet, [facility] #[id number], Partial fill upon patient request if the prescription is for a schedule II opioid drug., 182, cm, 09/10/21 8:13:00 EDT, Heigh... Start Date: 10/05/21 Status: Ordered atorvastatin 80 mg oral tablet 1 tablet = 80 mg, By Mouth, Daily, # 90 tablet, 3 Refills, Maintenance, 10/05/21 17:34:00 EDT, Tablet, [facility] #[id number], Partial fill upon patient request if the prescription is for a schedule II opioid drug., 182, cm, 09/10/21 8:13:00 EDT,... Start Date: 10/05/21 Status: Ordered BuPROPion (Eqv-Wellbutrin SR) 150 mg/12 hours oral tablet, extended release 1 tablet = 150 mg, By Mouth, 2 times a day, # 180 tablet, 3 Refills, Maintenance, 10/05/21 17:37:00EDT, SR Tablet, [facility] #[id number], Partial fill upon patient request if the prescription is for a schedule II opioid drug., 182, cm, 09/10/21... Start Date: 10/05/21 Status: Ordered clopidogrel 75 mg oral tablet 1, tablet, By Mouth, Daily, # 90 tablet, Refills 3, Tot. Refills 3, Maintenance, 10/05/21 17:34:00 EDT, Route to Pharmacy Electronically, [facility] #[id number], 182, cm, 09/10/21 8:13:00 EDT, Height, 102.7, kg, 09/08/21 16:41:00 EDT, Dry Weight Start Date: 10/05/21 Status: Ordered Flonase 50 mcg/inh nasal spray 1 sprays = 50 mcg, Nares, Both, 2 times a day, # 16 Gm, 5 Refills, Maintenance, 09/29/20 16:49:00 EDT, Nasal [place], [facility] #[id number], Partial fill upon patient request if the prescription is for a schedule II opioid drug., 1 sprays Nares, B... Start Date: 09/29/20 Status: Ordered Fluoxetine = 50 mg, By Mouth, Daily, 0 Refills, Maintenance, 06/29/22 15:47:00 EST, Partial fill upon patient request if the prescription is for a schedule II opioid drug. Start Date: 06/29/22 Status: Ordered FLUoxetine 40 mg oral capsule 1 capsule = 40 mg, By Mouth, Daily, # 90 capsule, 3 Refills, Maintenance, 10/05/21 17:34:00 EDT, Capsule, [facility] #[id number], Partial fill upon patient request if the prescription is for a schedule II opioid drug., 182, cm, 09/10/21 8:13:00 E... Start Date: 10/05/21 Status: Ordered isosorbide mononitrate 30 mg oral tablet, extended release 1 tablet = 30 mg, By Mouth, Daily in AM, # 90 tablet, 3 Refills, 10/05/21 17:35:00 EDT, [facility] #[id number], 182, cm, 09/10/21 8:13:00 EDT, Height, 102.7, kg, 09/08/21 16:41:00 EDT, Dry Weight Start Date: 10/05/21 Status: Ordered lamotrigine 25 mg oral tablet 100 mg, 4, tablet, By Mouth, 2 times a day, # 720 tablet, Refills 3, Tot. Refills 3, Maintenance, 10/06/21 14:57:00 EDT, Route to Pharmacy Electronically, [facility] #[id number], Partial fill upon patient request if the prescription is for a sche... Start Date: 10/06/21 Stop Date: 10/01/22 Status: Ordered lidocaine 5% topical film 1 patch, Topically, Daily, PRN Pain , Mild, remove after 12 hours, # 30 patch, 11 Refills, Maintenance, 02/20/21 7:32:00 EDT, Patch, [facility], Partial fill upon patient request if the prescription is for a schedule II opioid drug., 1 patch T... Start Date: 02/20/21 Status: Ordered metoprolol 25 mg oral tablet 25 mg, 1, tablet, By Mouth, 2 times a day, increase in dose, # 60 tablet, Refills 2, Tot. Refills 2, Maintenance, 06/06/22 14:13:00 EST, Route to Pharmacy Electronically, [facility] #[id number],Partial fill upon patient request if the prescripti... Start Date: 06/06/22 Status: Ordered Nitrostat 0.4 mg sublingual tablet 1 tablet = 0.4 mg, Sublingual, Every 5 minutes, prn, 0 Refills, Maintenance, 06/29/22 15:48:00 EST,Partial fill upon patient request if the prescription is for a schedule II opioid drug. Start Date: 06/29/22 Status: Ordered SEROquel 100 mg oral tablet 4 tablets, By Mouth, Daily, Refills 0, Maintenance, 06/29/22 15:47:00 EST, Partial fill upon patient request if the prescription is for a schedule II opioid drug. Start Date: 06/29/22 Status: Ordered traZODone 100 mg oral tablet 200 mg, 2, tablet, By Mouth, Daily at bedtime, # 180 tablet, Refills 3, Tot. Refills 3, Maintenance, 10/05/21 17:36:00 EDT, Route to Pharmacy Electronically, [facility] #[id number], Partial fillupon patient request if the prescription is for a s... Start Date: 10/05/21 Status: Ordered Problem List Condition Confirmation Course Effective Dates Status H ealth Status Informant AAA (abdominal aortic aneurysm) Confirmed Active Bipolar disorder Confirmed Active BPH (benign prostatic hyperplasia) Confirmed Active Carotid artery stenosis Confirmed Active Chest pain Confirmed Active CKD (chronic kidney disease) stage 3, GFR 30-59 ml/min Confirmed Active Coronary arteriosclerosis 1 Confirmed Active COVID-19 2 Confirmed 10/28/21 Active Essential hypertension Confirmed Active Gastroesophageal reflux disease Confirmed Active Hyperglycemia Confirmed Active Hyperlipidemia Confirmed Active HTN (hypertension) Confirmed Active Pulmonary nodule Confirmed Active 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 Active Obese class I Confirmed Active 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 Active Peripheral vascular disease Confirmed Active Schizoaffective schizophrenia Confirmed Active Stenosis of left subclavian artery Confirmed Active Stricture of artery 3 Confirmed Active Tobacco use Confirmed Active Tubular adenoma of colon 4 Confirmed 06/25/18 Active 112/11 Xience NIKKI x 2 to proximal LAD 2Problem added by Discern Expert 3L side, by duplex 4repeat screening colonoscopy in 2021 Social History Social History Type Response Smoking Status Current some day smo ker entered on: 02/15/18 Sex Patient Care team information Care Team Personnel Name: Wild Woods RN Position: [facility] ED RN W/OE and Tasks Member Role: Primary Care Nurse Name: Camila Vazquez RN Position: [facility] RN Member Role: Primary Care Nurse Name: Amanda Garibay RN Position: [facility] RN Member Role: Primary Care Nurse Name: Mary Roebrson RN Position: [facility] RN Member Role: Primary Care Nurse Name: Tomas Stauffer RN Position: [facility] RN Member Role: Primary Care Nurse Name: Balaji Mayo MD Position: [facility] Primary Care Physician Member Role: PCP Address: Address: [address] [place] [address]- [place] Care Team Related Persons Name: ROSANA NAGY Address: [address] [address] Name: GORAN QUINTERO
--- OUTSIDE RECORDS SUMMARY | 2023-12-30 12:50 | XMS_ITS | Continuity of Care Document ---
Author Organization [facility] Address [address] [place] [address]- Care Team Providers Care Emission Technician Name Role Phone Maria Esther URIAS, Balaji Quick Primary Care Physician Encounter [facility] [place] Date(s): 09/17/20 - 10/17/20 [facility] [address] [place], [place] [address] Attending Physician: Bertha Fried Admitting Physician: AdmBertha brown Referring Physician: AdmtrBertha Allergies, Adverse Reactions, Alerts Substance Reaction Severity [...] acel(Tdap) 2 08/02/17 Given 1Result Comment: [02/15/2018] 41153-660-43 2Result Comment: [08/02/2017] [facility] 51520-457-29 Medications amLODIPine 5 mg oral tablet 2.5 [...] 09/14/20 12:44:00 EDT, Route to Pharmacy Electronically, [facility] #[id number], 180, cm, 09/07/20 10:33:00 EDT, Height Start Date: 09/14/20 Status: Ordered Flonase 50 mcg/inh nasal spray 1 sprays = 50 mcg, Nares, Both, 2 times a day, # 16 Gm, 5 Refills, Maintenance, 09/29/20 16:49:00 EDT, Nasal [place], [facility] #[id number], Partial fill upon patient request if the prescription is for a schedule II opioid drug., 1 sprays [place], B... Start Date: 09/29/20 Status: Ordered FLUoxetine [...] 09/13/20 6:59:00 EDT, Route to Pharmacy Electronically, [facility] #[id number], Partial fill upon patient request if the [...] tablet, 0 Refills, Maintenance, 09/14/20 12:44:00 EDT, [facility] #[id number], 180, cm, 09/07/20 10:33:00 EDT, Height Start [...] capsule, Refills 3, Tot. Refills 3, Maintenance, :58:00 EDT, Route to Pharmacy Electronically, [facility] #[id number], Partial fill upon patient request if the [...] Type Response Smoking Status Current some day [facility] [place] ker entered on: 02/15/18 Sex
--- OUTSIDE RECORDS SUMMARY | 2023-12-30 12:50 | XMS_ITS | Continuity of Care Document ---
Author Organization [facility] Address [address] [place] [address]- Care Team Providers Care Washtub Worker Name Role Phone Balaji Mayo MD Primary Care Physician Encounter [facility] [place] Date(s): 09/07/20 - 09/14/20 [facility] [address] [place], [place] [address] Attending Physician: Hope Dover NP Admitting Physician: Hope Dover NP Referring Physician: Balaji Mayo MD Allergies, Adverse [...] acel(Tdap) 2 08/02/17 Given 1Result Comment: [02/15/2018] 48764-872-76 2Result Comment: [08/02/2017] [facility] 75734-850-61 Medications amLODIPine 5 mg oral tablet 2.5 [...] 150 mg/12 hours oral tablet, extended release 0 Refills, Maintenance, 08/18/20 1:48:00 EDT, Partial fill upon patient request if the prescriptionis for a schedule II opioid drug. Start Date: 08/18/20 Status: Ordered clopidogrel 75 mg oral tablet 1, tablet, By Mouth, Daily, # 90 tablet, Refills 0, Tot. Refills 0, Maintenance, 09/14/20 12:44:00 EDT, Route to Pharmacy Electronically, [facility] #[id number], 180, cm, 09/07/20 10:33:00 EDT, Height Start Date: 09/14/20 Status: Ordered cyclobenzaprine 5 mg oral tablet 1 tablet = 5 mg, By Mouth, 3 times a day, PRN Pain , Moderate, for 10 days, # 30 tablet, 1 Refills,Acute 09/27/20 16:55:00 EDT, 09/07/20 16:55:00 EDT, Tablet, [facility], Partial fill upon patient request if the prescription is for a schedule... Start Date: 09/07/20 Stop Date: 09/27/20 Status: Ordered cyclobenzaprine 5 mg oral tablet 1 tablet = 5 mg, By Mouth, 2 times a day, PRN Pain , Moderate, for 14 days, Replaces previous prescription, # 28 tablet, 5 Refills, Acute 12/20/20 16:55:00 EDT, 09/27/20 16:55:00 EDT, Tablet, [facility], Partial fill upon patient request if th... Start Date: 09/27/20 Stop Date: 12/20/20 Status: Ordered Fleet Enema Rectally, Once, 0 Refills, Maintenance, 09/07/20 11:18:00 EDT, Partial fill upon patient request ifthe prescription is for a schedule II opioid drug. Start Date: 09/07/20 Status: Ordered FLUoxetine 40 mg oral capsule [...] 09/13/20 6:59:00 EDT, Route to Pharmacy Electronically, [facility] #[id number], Partial fill upon patient request if the [...] tablet, 0 Refills, Maintenance, 09/14/20 12:44:00 EDT, [facility] #[id number], 180, cm, 09/07/20 10:33:00 EDT, Height Start Date: 09/14/20 Status: Ordered Milk of Magnesia By Mouth, Daily at bedtime, 0 Refills, Maintenance, 09/07/20 11:18:00 EDT, Partial fill upon patient request if the prescription is for a schedule II opioid drug. Start Date: 09/07/20 Status: Ordered Nicotine Gum 2 mg, Chew, Every hour, PRN, Nicotine Cravings, Refills 0, Maintenance, Other, 09/01/20 10:52:00 EDT, Partial fill upon patient request if the prescription is for a schedule II opioid drug. Start Date: 09/01/20 Status: Ordered nitroglycerin 0.4 mg sublingual tablet [...] By Mouth, Daily, # 30 capsule, Refills 0, Maintenance, 08/18/20 1:50:00 EDT, Partial fill upon patient request if the prescription is for a schedule II opioid drug. Start Date: 08/18/20 Status: Ordered traZODone 100 mg oral tablet 100 mg, 1, tablet, By Mouth, 2 times a day, # 180 tablet, Refills 0, Maintenance, 08/18/20 [...] oldest [Reference Range]: 1 Height 180 cm (09/07/20 10:33 AM) Weight 111.36 kg (09/07/20 10:33 AM) Oxygen Saturation [94-100 %] 98 % (09/07/20 10:33 AM) Pulse Rate [55-90 bpm] 56 bpm (09/07/20 10:33 AM) Body Mass Index [18.5-24.99] 34.37 *>HHI* (09/07/20 10:33 AM) Blood Pressure [90-138/55-84 mm Hg] 120/ 74mm Hg (09/07/20 10:33 AM) Mode of Delivery (Oxygen) Room air (09/07/20 10:33 AM) Blood pressure sites Arm, right (09/07/20 10:33 AM) Weight Obtained Via Patient/family state d (09/07/20 10:33 AM) Social History Social History Type Response Smoking Status Current some day mata garza entered on: 02/15/18 Sex
--- OUTSIDE RECORDS SUMMARY | 2023-12-30 12:50 | XMS_ITS | Continuity of Care Document ---
Author Organization [facility] Kunal Aldair lt Address [address] [place] [address]- Care Team Providers Care Valuation Consultant Name Role Phone Maria Esther URIAS, Balaji Quick Primary Care Physician [phone] Encounter [facility] Date(s): 12/09/22 - 01/08/23 [facility] Adult [address] [place] [address]- Allergies, Adverse Reactions, Alerts Substance Reaction Severity [...] pneumococcal 23-valent vaccine 12/17/12 Recorded 1Result Comment: [id number] 2Result Comment: [02/15/2018] 15730-574-47 3Result Comment: [08/02/2017] [facility] 23699-580-23 Medications amLODIPine 10 mg oral tablet 10 mg, 1, tablet, By Mouth, Daily, # 90 tablet, Refills 3, Tot. Refills 3, Maintenance, 10/26/22 13:35:00 EDT, Route to Pharmacy Electronically, [facility] #[id number], Partial fill upon patientrequest if the prescription is for a schedule II op... Start Date: 10/26/22 Status: Ordered Aspirin Low Dose 81 mg oral delayed release tablet 1 tablet, By Mouth, Daily, # 90 tablet, 3 Refills, Maintenance, 11/08/22 11:19:00 EDT, [facility] #[id number], 184, cm, 11/03/22 11:28:00 EDT, Height, 106.3, kg, 09/13/22 12:30:00 EDT, Dry Weight Start Date: 11/08/22 Status: Ordered atorvastatin 80 mg oral tablet 1 tablet = 80 mg, By Mouth, Daily, # 90 tablet, 3 Refills, Maintenance, 12/05/22 4:30:00 EDT, Tablet, [facility] #[id number], Partial fill upon patient request if the prescription is for a schedule II opioid drug., 183, cm, 11/10/22 17:28:00 EDT,... Start Date: 12/05/22 Status: Ordered BuPROPion (Eqv-Wellbutrin SR) 150 mg/12 hours oral tablet, extended release 1 tablet = 150 mg, By Mouth, 2 times a day, # 180 tablet, 3 Refills, Maintenance, 10/05/21 17:37:00EDT, SR Tablet, [facility] #[id number], Partial fill upon patient request if the prescription is for a schedule II opioid drug., 182, cm, 09/10/21... Start Date: 10/05/21 Status: Ordered clopidogrel 75 mg oral tablet 1, tablet, By Mouth, Daily, # 90 tablet, Refills 0, Maintenance, 10/07/22 6:36:00 EDT, Route to Pharmacy Electronically, [facility] #[id number], 184, cm, 09/28/22 9:02:00 EDT, Height, 106.3, kg,09/13/22 12:30:00 EDT, Dry Weight Start Date: 10/07/22 Status: Ordered Flonase 50 mcg/inh nasal spray 1 sprays = 50 mcg, Nares, Both, 2 times a day, # 16 Gm, 5 Refills, Maintenance, 09/15/22 8:26:00 EDT, Nasal [place], [facility] #[id number], Partial fill upon patient request if the prescription is for a schedule II opioid drug., 1 sprays Nares, [place]... Start Date: 09/15/22 Status: Ordered FLUoxetine 10 mg oral capsule 10 mg, 1, capsule, By Mouth, Daily, Maintenance, 09/13/22 17:08:00 EDT, Partial fill upon patient request if the prescription is for a schedule II opioid drug. Start Date: 09/13/22 Status: Ordered FLUoxetine 40 mg oral capsule 1 capsule = 40 mg, By Mouth, Daily, # 90 capsule, 3 Refills, Maintenance, 10/05/21 17:34:00 EDT, Capsule, [facility] #[id number], Partial fill upon patient request if the prescription is for a schedule II opioid drug., 182, cm, 09/10/21 8:13:00 E... Start Date: 10/05/21 Status: Ordered isosorbide mononitrate 30 mg oral tablet, extended release 1 tablet, By Mouth, Daily in AM, # 90 tablet, 3 Refills, Maintenance, 10/20/22 16:40:00 EDT, [facility] #[id number], 184, cm, 09/28/22 9:02:00 EDT, Height, 106.3, kg, 09/13/22 12:30:00 EDT, Dry Weight Start Date: 10/20/22 Status: Ordered lamotrigine 100 mg oral tablet 100 mg, 1, tablet, By Mouth, 2 times a day, Maintenance, 09/13/22 17:08:00 EDT, Partial fill upon patient request if the prescription is for a schedule II opioid drug. Start Date: 09/13/22 Status: Ordered Lidoderm 5% film Topically, Daily, 0 Refills, Maintenance, 12/05/22 16:07:00 EDT, Partial fill upon patient request if the prescription is for a schedule II opioid drug. Start Date: 12/05/22 Status: Ordered Metoprolol Tartrate 25 mg oral tablet 1 tablet, By Mouth, 2 times a day, INCREASE IN DOSE, # 60 tablet, 5 Refills, Maintenance, 09/18/22 18:55:00 EDT, [facility] #[id number], 184, cm, 09/15/22 9:12:00 EDT, Height, 106.3, kg, 09/13/22 12:30:00 EDT, Dry Weight Start Date: 09/18/22 Status: Ordered Nitrostat 0.4 mg sublingual tablet 1 tablet = 0.4 mg, Sublingual, Every 5 minutes, PRN Chest Pain, prn, # 30 tablet, 11 Refills, Maintenance, 11/30/22 6:36:00 EDT, Tablet, [facility] #[id number], Partial fill upon patient requestif the prescription is for a schedule II opioid lisa... Start Date: 11/30/22 Status: Ordered omeprazole 20 mg oral enteric coated capsule 1 capsule = 20 mg, By Mouth, Daily, # 30 capsule, 1 Refills, Maintenance, 09/28/22 9:21:00 EDT, [facility] #[id number], Partial fill upon patient request if the [...] opioid drug. Start Date: 09/13/22 Status: Ordered traZODone 100 mg oral tablet 200 mg, 2, tablet, By Mouth, Daily at bedtime, # 180 tablet, Refills 3, Tot. Refills 3, Maintenance, 10/05/21 17:36:00 EDT, Route to Pharmacy Electronically, [facility] #[id number], Partial fillupon patient request if the prescription [...] Discern Expert 2repeat screening colonoscopy in 2021 Social History Social History Type Response Smoking Status Current some day smo ker entered on: 02/15/18 Sex Patient Care team information Care Team Personnel Name: [place] RN Position: [facility] ED RN W/OE and Tasks Member Role: Primary Care Nurse Name: Erich Dias RN Position: [facility] RN Member Role: Primary Care Nurse Name: Camila Vazquez RN Position: S RN Member Role: Primary Care Nurse Name: Taylor Beck RN Position: [facility] RN Member Role: Primary Care Nurse Name: Amanda Garibay RN Position: [facility] RN Member Role: Primary Care Nurse Name: Mary Roberson RN Position: [facility] RN Member Role: Primary Care Nurse Name: Tomas Stauffer RN Position: [facility] RN Member Role: Primary Care Nurse Name: Balaji Mayo MD Position: [facility] Physician - Primary Care Member Role: PCP Address: Address: [address] [place] [address]- Name: Fadumo Conti RN Position: [facility] RN Member Role: Primary Care Nurse Care Team Related Persons Name: ROSANA NAGY Address: home [address] [place] [id number] Name: GORAN QUINTERO
--- OUTSIDE RECORDS SUMMARY | 2023-12-30 12:50 | XMS_ITS | Continuity of Care Document ---
Author Organization [facility] Address Unknown Care Team Providers Care Biological Inspector Name Role Phone Maria Esther URIAS, Balaji Quick Primary Care Physician Encounter [facility] Date(s): 12/10/20 - 02/26/21 [facility] Attending Physician: Abby Ortiz MD Admitting Physician: Abby Ortiz MD Allergies, Adverse Reactions, Alerts Substance Reaction Severity Status Claritin Active Clozaril Active Benadryl Active Nicotine Patch Active Abilify Active Vistaril Active Nuts Active Immunizations Given and Recorded Vaccine Date Status Refusal Reason influenza virus vaccine, inactivated 02/17/21 Hakeem rded influenza virus vaccine, inactivated 03/04/20 Give n influenza virus vaccine, inactivated 01/29/19 Give n influenza virus vaccine, inactivated 1 02/15/18 Gi juan SARS-CoV-2 (COVID-19) mRNA BNT-162b2 vac 02/17/21 Recorded SARS-CoV-2 (COVID-19) mRNA BNT-162b2 vac 07/09/20 Recorded SARS-CoV-2 (COVID-19) mRNA BNT-162b2 vac 06/18/20 Recorded tetanus/diphtheria/pertussis, acel(Tdap) 2 08/02/17 Given pneumococcal 23-valent vaccine 05/03/17 Recorded pneumococcal 23-valent vaccine 12/17/12 Recorded 1Result Comment: [02/15/2018] 87323-892-93 2Result Comment: [08/02/2017] [facility] 28985-635-63 Medications amLODIPine 5 mg oral tablet 2.5 mg, 0.5, tablet, By Mouth, 2 times a day, Refills 0, Maintenance, 09/01/20 10:53:00 EDT, Partial fill upon patient request if the prescription is for a schedule II opioid drug. Start Date: 09/01/20 Status: Ordered aspirin 81 mg oral delayed release tablet = 81 mg, By Mouth, Daily, # 90 tablet, 3 Refills, Maintenance, 02/18/21 9:19:00 EDT, EC Tablet, [facility], Partial fill upon patient request if the prescription is for a schedule II opioid drug., 180, cm, 01/26/21 13:02:00 EDT, Height Start Date: 02/18/21 Status: Ordered atorvastatin 80 mg oral tablet [...] 09/14/20 12:44:00 EDT, Route to Pharmacy Electronically, [facility] #[id number], 180, cm, 09/07/20 10:33:00 EDT, Height Start Date: 09/14/20 Status: Ordered Flonase 50 mcg/inh nasal spray 1 sprays = 50 mcg, Nares, Both, 2 times a day, # 16 Gm, 5 Refills, Maintenance, 09/29/20 16:49:00 EDT, Nasal [place], [facility] #[id number], Partial fill upon patient request if the prescription is for a schedule II opioid drug., 1 sprays [place], B... Start Date: 09/29/20 Status: Ordered FLUoxetine 40 mg oral capsule 1 capsule = 40 mg, By Mouth, Daily, # 30 capsule, 0 Refills, Maintenance, 08/18/20 1:49:00 EDT, Capsule, Partial fill upon patient request if the prescription is for a schedule II opioid drug. Start Date: 08/18/20 Status: Ordered Hinged left knee brace Hinged left knee brace, See Instructions, # 1 each, Refills 0, Tot. Refills 0, Maintenance, DX: left knee pain arthritis M25.562 SHERMAN 99 MOS, 02/16/21 11:39:00 EDT, Supply Start Date: 02/16/21 Status: Ordered isosorbide mononitrate 30 mg oral tablet, extended release 30 mg, 1, tablet, By Mouth, Daily in AM, # 30 tablet, Refills 5, Tot. Refills 5, Maintenance, 09/13/20 6:59:00 EDT, Route to Pharmacy Electronically, [facility] #[id number], Partial fill upon patient request if the prescription is for a schedule... Start Date: 09/13/20 Status: Ordered Knee Support See Instructions, # 1 each, Maintenance, Hinged knee brace, left knee, 02/08/21 6:40:00 EDT, Supply Start Date: 02/08/21 Status: Ordered lamotrigine 25 mg oral tablet [...] 11 Refills, Maintenance, 02/20/21 7:32:00 EDT, Patch, [facility], Partial fill upon patient request if the prescription is for a schedule II opioid drug., 1 patch T... Start Date: 02/20/21 Status: Ordered Metoprolol Tartrate 25 mg oral tablet 1 tablet, By Mouth, 2 times a day, # 180 tablet, 0 Refills, Maintenance, 09/14/20 12:44:00 EDT, [facility] #[id number], 180, cm, 09/07/20 10:33:00 EDT, Height Start [...] Maintenance, :58:00 EDT, [facility], [facility][id number], Partial fill upon patient request if the [...]
--- OUTSIDE RECORDS SUMMARY | 2023-12-30 12:50 | XMS_ITS | Continuity of Care Document ---
Author Organization [facility] Rico Syed Aldair lt Address [address] [place] [address]- Care Team Providers Care Amr Physician Name Role Phone Balaji Mayo MD Primary Care Physician Encounter [facility] Date(s): 07/22/22 - 11/05/22 [facility]unal Adult [address] [place] [address]- Attending Physician: Balaji Mayo MD Allergies, Adverse [...] pneumococcal 23-valent vaccine 12/17/12 Recorded 1Result Comment: [id number] 2Result Comment: [02/15/2018] 62402-029-93 3Result Comment: [08/02/2017] [facility] 68331-591-88 Medications amLODIPine 10 mg oral tablet 10 mg, 1, tablet, By Mouth, Daily, # 90 tablet, Refills 3, Tot. Refills 3, Maintenance, 10/26/22 13:35:00 EDT, Route to Pharmacy Electronically, [facility] #[id number], Partial fill upon patientrequest if the prescription is for a schedule II op... Start Date: 10/26/22 Status: Ordered aspirin 81 mg oral delayed release tablet = 81 mg, By Mouth, Daily, # 90 tablet, 3 Refills, Maintenance, 10/05/21 17:34:00 EDT, EC Tablet, [facility] #[id number], Partial fill upon patient request if the prescription is for a schedule II opioid drug., 182, cm, 09/10/21 8:13:00 EDT, Heigh... Start Date: 10/05/21 Status: Ordered atorvastatin 80 mg oral tablet 1 tablet = 80 mg, By Mouth, Daily, # 90 tablet, 3 Refills, Maintenance, 10/05/21 17:34:00 EDT, Tablet, [facility] #[id number], Partial fill upon patient request if the prescription is for a schedule II opioid drug., 182, cm, 09/10/21 8:13:00 EDT,... Start Date: 10/05/21 Status: Ordered BuPROPion (Eqv-Wellbutrin SR) 150 mg/12 hours oral tablet, extended release 1 tablet = 150 mg, By Mouth, 2 times a day, # 180 tablet, 3 Refills, Maintenance, 10/05/21 17:37:00EDT, SR Tablet, [facility] #[id number], Partial fill upon patient request if the prescription is for a schedule II opioid drug., 182, cm, 09/10/21... Start Date: 10/05/21 Status: Ordered clopidogrel 75 mg oral tablet 1, tablet, By Mouth, Daily, # 90 tablet, Refills 0, Maintenance, 10/07/22 6:36:00 EDT, Route to Pharmacy Electronically, [facility] #[id number], 184, cm, 09/28/22 9:02:00 EDT, Height, 106.3, kg,09/13/22 12:30:00 EDT, Dry Weight Start Date: 10/07/22 Status: Ordered Flonase 50 mcg/inh nasal spray 1 sprays = 50 mcg, Nares, Both, 2 times a day, # 16 Gm, 5 Refills, Maintenance, 09/15/22 8:26:00 EDT, Nasal [place], [facility] #[id number], Partial fill upon patient request if the [...] 3 Refills, Maintenance, 10/05/21 17:34:00 EDT, Capsule, [facility] #[id number], Partial fill upon patient request if the prescription is for a schedule II opioid drug., 182, cm, 09/10/21 8:13:00 E... Start Date: 10/05/21 Status: Ordered isosorbide mononitrate 30 mg oral tablet, extended release 1 tablet, By Mouth, Daily in AM, # 90 tablet, 3 Refills, Maintenance, 10/20/22 16:40:00 EDT, [facility] #[id number], 184, cm, 09/28/22 9:02:00 EDT, Height, 106.3, kg, 09/13/22 12:30:00 EDT, Dry Weight Start Date: 10/20/22 Status: Ordered lamotrigine 100 mg oral tablet 100 mg, 1, tablet, By Mouth, 2 times a day, Maintenance, 09/13/22 17:08:00 EDT, Partial fill upon patient request if the prescription is for a schedule II opioid drug. Start Date: 09/13/22 Status: Ordered Metoprolol Tartrate 25 mg oral tablet 1 tablet, By Mouth, 2 times a day, INCREASE IN DOSE, # 60 tablet, 5 Refills, Maintenance, 09/18/22 18:55:00 EDT, [facility] #[id number], 184, cm, 09/15/22 9:12:00 EDT, Height, 106.3, kg, 09/13/22 12:30:00 EDT, Dry Weight Start Date: 09/18/22 Status: Ordered Nitrostat 0.4 mg sublingual tablet 1 tablet = 0.4 mg, Sublingual, Every 5 minutes, prn, 0 Refills, Maintenance, 06/29/22 15:48:00 EST,Partial fill upon patient request if the prescription is for a schedule II opioid drug. Start Date: 06/29/22 Status: Ordered omeprazole 20 mg oral enteric coated capsule 1 capsule = 20 mg, By Mouth, Daily, # 30 capsule, 1 Refills, Maintenance, 09/28/22 9:21:00 EDT, [facility] #[id number], Partial fill upon patient request if the [...] 10/05/21 17:36:00 EDT, Route to Pharmacy Electronically, [facility] #[id number], Partial fillupon patient request if the prescription [...] Team Personnel Name: [place] RN Position: [facility] ED RN W/OE and Tasks Member Role: Primary Care Nurse Name: Camila Vazquez RN Position: [facility] RN Member Role: Primary Care Nurse Name: Taylor Beck RN Position: [facility] RN Member Role: Primary Care Nurse Name: Amanda Garibay RN Position: [facility] RN Member Role: Primary Care Nurse Name: Mary Roberson RN Position: [facility] RN Member Role: Primary Care Nurse Name: Tomas Stauffer RN Position: [facility] RN Member Role: Primary Care Nurse Name: Balaji Mayo MD Position: [facility] Physician - Primary Care Member Role: PCP Address: Address: [address] [place] [id number]- Name: Fadumo Conti RN Position: [facility] RN Member Role: Primary Care Nurse Care Team Related Persons Name: ROSANA NAGY Address: [address] [address] Name: GORAN QUINTERO
--- OUTSIDE RECORDS SUMMARY | 2023-12-30 12:50 | XMS_ITS | Continuity of Care Document ---
Author Organization [facility] Kunal Aldair lt Address [address] [place] [address]- Care Team Providers Care Manager Math Name Role Phone Maria Esther URIAS, Balaji Quick Primary Care Physician [phone] Encounter [facility] Date(s): 12/16/22 - 01/15/23 [facility] Adult [address] [place] [address]- Allergies, Adverse Reactions, Alerts Substance Reaction Severity [...] pneumococcal 23-valent vaccine 12/17/12 Recorded 1Result Comment: [id number] 2Result Comment: [02/15/2018] [id number] 3Result Comment: [08/02/2017] [facility] [id number] Medications amLODIPine 10 mg oral tablet 10 mg, 1, tablet, By Mouth, Daily, # 90 tablet, Refills 3, Tot. Refills 3, Maintenance, 10/26/22 13:35:00 EDT, Route to Pharmacy Electronically, [facility] #[id number], Partial fill upon patientrequest if the prescription is for a schedule II op... Start Date: 10/26/22 Status: Ordered Aspirin Low Dose 81 mg oral delayed release tablet 1 tablet, By Mouth, Daily, # 90 tablet, 3 Refills, Maintenance, 11/08/22 11:19:00 EDT, [facility] #[id number], 184, cm, 11/03/22 11:28:00 EDT, Height, 106.3, kg, 09/13/22 12:30:00 EDT, Dry Weight Start Date: 11/08/22 Status: Ordered atorvastatin 80 mg oral tablet 1 tablet = 80 mg, By Mouth, Daily, # 90 tablet, 3 Refills, Maintenance, 12/05/22 4:30:00 EDT, Tablet, [facility] #[id number], Partial fill upon patient request if the prescription is for a schedule II opioid drug., 183, cm, 11/10/22 17:28:00 EDT,... Start Date: 12/05/22 Status: Ordered BuPROPion (Eqv-Wellbutrin SR) 150 mg/12 hours oral tablet, extended release 1 tablet = 150 mg, By Mouth, 2 times a day, # 180 tablet, 3 Refills, Maintenance, 10/05/21 17:37:00EDT, SR Tablet, [facility] #[id number], Partial fill upon patient request if the prescription is for a schedule II opioid drug., 182, cm, 09/10/21... Start Date: 10/05/21 Status: Ordered clopidogrel 75 mg oral tablet 1, tablet, By Mouth, Daily, # 90 tablet, Refills 3, Maintenance, 01/13/23 16:50:00 EDT, Route to Pharmacy Electronically, [facility] #[id number], 183, cm, 12/05/22 16:08:00 EDT, Height, 106.3, kg, 09/13/22 12:30:00 EDT, Dry Weight Start Date: 01/13/23 Status: Ordered Flonase 50 mcg/inh nasal spray 1 sprays = 50 mcg, Nares, Both, 2 times a day, # 16 Gm, 5 Refills, Maintenance, 09/15/22 8:26:00 EDT, Nasal [place], [facility] #[id number], Partial fill upon patient request if the [...] 3 Refills, Maintenance, 10/05/21 17:34:00 EDT, Capsule, [facility] #[id number], Partial fill upon patient request if the prescription is for a schedule II opioid drug., 182, cm, 09/10/21 8:13:00 E... Start Date: 10/05/21 Status: Ordered isosorbide mononitrate 30 mg oral tablet, extended release 1 tablet, By Mouth, Daily in AM, # 90 tablet, 3 Refills, Maintenance, 10/20/22 16:40:00 EDT, [facility] #[id number], 184, cm, 09/28/22 9:02:00 EDT, Height, 106.3, [...] tablet, 5 Refills, Maintenance, 09/18/22 18:55:00 EDT, [facility] #[id number], 184, cm, 09/15/22 9:12:00 EDT, Height, 106.3, kg, 09/13/22 12:30:00 EDT, Dry Weight Start Date: 09/18/22 Status: Ordered Nitrostat 0.4 mg sublingual tablet 1 tablet = 0.4 mg, Sublingual, Every 5 minutes, PRN Chest Pain, prn, # 30 tablet, 11 Refills, Maintenance, 11/30/22 6:36:00 EDT, Tablet, [facility] #[id number], Partial fill upon patient requestif the prescription is for a schedule II opioid lisa... Start Date: 11/30/22 Status: Ordered omeprazole 20 mg oral enteric coated capsule 1 capsule = 20 mg, By Mouth, Daily, # 30 capsule, 1 Refills, Maintenance, 09/28/22 9:21:00 EDT, [facility] #[id number], Partial fill upon patient request if the [...] 10/05/21 17:36:00 EDT, Route to Pharmacy Electronically, [facility] #[id number], Partial fillupon patient request if the prescription [...] Team Personnel Name: [place] RN Position: [facility] ED RN W/OE and Tasks Member Role: Primary Care Nurse Name: Erich Dias RN Position: [facility] RN Member Role: Primary Care Nurse Name: Camila Vazquez RN Position: [facility] RN Member Role: Primary Care Nurse Name: Taylor Beck RN Position: [facility] RN Member Role: Primary Care Nurse Name: Amanda Garibay RN Position: [facility] RN Member Role: Primary Care Nurse Name: Mary Roberson RN Position: [facility] RN Member Role: Primary Care Nurse Name: Tomas Stauffer RN Position: [facility] RN Member Role: Primary Care Nurse Name: Balaji Mayo MD Position: [facility] Physician - Primary Care Member Role: PCP Address: Address: [address] [place] [id number]- Name: Fadumo Conti RN Position: [facility] RN Member Role: Primary Care Nurse Care Team Related Persons Name: ROSANA NAGY Address: home [address] [place] [id number] Name: GORAN QUINTERO
--- OUTSIDE RECORDS SUMMARY | 2023-12-30 12:50 | XMS_ITS | Continuity of Care Document ---
Author Organization [facility] Rico Syed Aldair lt Address [address] [place] [address]- Care Team Providers Care Transcriber Name Role Phone Balaji Mayo MD Primary Care Physician [phone] [place] [facility] 03/[place]/23 [facility] Adult [address] [place] [address]- Attending Physician: Balaji Mayo MD Allergies, Adverse Reactions, Alerts Substance Reaction Severity Status Claritin Active Clozaril Active Benadryl Active Vistaril Active Abilify Active Nuts Active Nicotine Patch Active Immunizations [...] 23-valent vaccine 12/17/12 Recorded 1Result Comment: [02/15/2018] 39535-976-26 2Result Comment: [id number] 3Result Comment: [08/02/2017] [facility] 93923-709-04 Medications Aspirin Low Dose 81 mg oral delayed release tablet 1 tablet, By Mouth, Daily, # 90 tablet, 3 Refills, Maintenance, 11/08/22 11:19:00 EDT, [facility][id number], 184, cm, 11/03/22 11:28:00 EDT, Height, 106.3, kg, 09/13/22 12:30:00 EDT, Dry Weight Start Date: 11/08/22 Status: Ordered atorvastatin 80 mg oral tablet 1 tablet = 80 mg, By Mouth, Daily, # 90 tablet, 3 Refills, Maintenance, 12/05/22 4:30:00 EDT, Tablet, [facility] #[id number], Partial fill upon patient request if the prescription is for a schedule II opioid drug., 183, cm, 11/10/22 17:28:00 EDT,... Start Date: 12/05/22 Status: Ordered BuPROPion (Eqv-Wellbutrin SR) 150 mg/12 hours oral tablet, extended release 1 tablet = 150 mg, By Mouth, 2 times a day, # 180 tablet, 3 Refills, Maintenance, 10/05/21 17:37:00EDT, SR Tablet, [facility] #[id number], Partial fill upon patient request if the prescription is for a schedule II opioid drug., 182, cm, 09/10/21... Start Date: 10/05/21 Status: Ordered clopidogrel 75 mg oral tablet 1, tablet, By Mouth, Daily, # 90 tablet, Refills 3, Maintenance, 01/13/23 16:50:00 EDT, Route to Pharmacy Electronically, [facility] #[id number], 183, cm, 12/05/22 16:08:00 EDT, Height, 106.3, kg, 09/13/22 12:30:00 EDT, Dry Weight Start Date: 01/13/23 Status: Ordered Flonase 50 mcg/inh nasal spray 1 sprays = 50 mcg, Nares, Both, 2 times a day, # 16 Gm, 5 Refills, Maintenance, 09/15/22 8:26:00 EDT, Nasal [place], [facility] #[id number], Partial fill upon patient request if the prescription is for a schedule II opioid drug., 1 sprays Nares, [place]... Start Date: 09/15/22 Status: Ordered FLUoxetine 40 mg oral capsule 1 capsule = 40 mg, By Mouth, Daily, # 90 capsule, 3 Refills, Maintenance, 10/05/21 17:34:00 EDT, Capsule, [facility] #[id number], Partial fill upon patient request if the [...] 11 Refills, Maintenance, 11/30/22 6:36:00 EDT, Tablet, [facility][id number], Partial fill upon patient requestif the prescription [...] capsule, 1 Refills, Maintenance, 09/28/22 9:21:00 EDT, [facility] #[id number], Partial fill upon patient request if the [...] 10/05/21 17:36:00 EDT, Route to Pharmacy Electronically, [facility] #[id number], Partial fillupon patient request if the prescription [...] Team Personnel Name: [place] RN Position: [facility] ED RN W/OE and Tasks Member Role: Primary Care Nurse Name: Esme Garcia RN Position: [facility] RN Member Role: Primary Care Nurse Name: Erich Dias RN Position: [facility] RN Member Role: Primary Care Nurse Name: Camila Vazquez RN Position: [facility] RN Member Role: Primary Care Nurse Name: Taylor Beck RN Position: [facility] RN Member Role: Primary Care Nurse Name: Amanda Garibay RN Position: [facility] RN Member Role: Primary Care Nurse Name: Mary Roberson RN Position: [facility] RN Member Role: Primary Care Nurse Name: Tomas Stauffer RN Position: [facility] RN Member Role: Primary Care Nurse Name: Balaji Mayo MD Position: [facility] Physician - Primary Care Member Role: PCP Address: Address: [address] [place] [id number]- Name: Fadumo Conti RN Position: [facility] RN Member Role: Primary Care Nurse Care Team Related Persons Name: ROSANA NAGY Address: [address] [address] Name: GORAN QUINTERO
--- OUTSIDE RECORDS SUMMARY | 2023-12-30 12:50 | XMS_ITS | Continuity of Care Document ---
Author Organization [facility] Kunal Aldair Address [address] [place] [address]- Care Team Providers Care Reviewer Sales Name Role Phone Maria Esther URIAS, Balaji Quick Primary Care Physician Encounter [facility] Date(s): 01/06/20 - 02/05/20 [facility] Adult [address] [place] [address]- [facility] Allergies, Adverse Reactions, Alerts Substance Reaction Severity Status Claritin Active Clozaril Active Benadryl Active Vistaril Active Nuts Active Abilify Active Nicotine Patch Active Immunizations Given and Recorded Vaccine Date Status Refusal Reason influenza virus vaccine, inactivated 01/29/19 Give n influenza virus vaccine, inactivated 1 02/15/18 Gi juan tetanus/diphtheria/pertussis, acel(Tdap) 2 08/02/17 Given 1Result Comment: [02/15/2018] 25122-822-06 2Result Comment: [08/02/2017] [facility] 86730-438-11 Medications amLODIPine 5 mg oral tablet 5 mg, 1, tablet, By Mouth, Daily, [facility], # 90 tablet, Refills 3, Tot.Refills 3, Maintenance, 01/16/20 15:03:00 EDT, Route to Pharmacy Electronically, [facility] #[id number], 180, cm, 12/03/19 13:50:00 EDT, Height Start Date: 01/16/20 Status: Ordered Aspirin Tablet 81 mg, By Mouth, Daily, Maintenance, 04/15/13 17:02:08 Start Date: 04/15/13 Status: Ordered atorvastatin 80 mg oral tablet 1 tablet = 80 mg, By Mouth, Daily in AM, [facility]OTT[facility], # 90 tablet, 1 Refills, Maintenance, 01/16/20 15:04:00 EDT, Tablet, [facility] #[id number], 180, cm, 12/03/19 13:50:00 EDT, Height, Dry Weight Start Date: 01/16/20 Status: Ordered buPROPion 150 mg/12 hours (SR) oral tablet, extended release 1 tablet = 150 mg, By Mouth, 2 times a day Start Date: 07/07/16 Status: Ordered clopidogrel 75 mg oral tablet 75 mg, 1, tablet, By Mouth, Daily, REFAX TO [facility] PER DR COTTRELL, # 90 tablet, Refills 1, Tot. Refills 1, Soft Stop, 01/16/20 15:09:00 EDT, Route to Pharmacy Electronically, [facility] #[id number], 180, cm, 12/03/19 13:50:00 EDT, Height Start Date: 01/16/20 Status: Ordered cyclobenzaprine 5 mg oral tablet 1 tablet = 5 mg, By Mouth, 2 times a day, PRN as needed for muscle spasm, REFAX TO [facility] PER [place], # 60 tablet, 2 Refills, Maintenance, 01/16/20 15:05:00 EDT, Tablet, [facility][id number], 180, cm, 12/03/19 13:50:00 EDT, Height, Dry... Start Date: 01/16/20 Status: Ordered Ditropan XL 5 mg/24 hours oral tablet, extended release 1 tablet = 5 mg, By Mouth, Daily, 0 Refills, Maintenance, 12/16/14 12:57:43 Start Date: 12/16/14 Status: Ordered famotidine 20 mg oral tablet 20 mg, 1, tablet, By Mouth, 2 times a day, replaces ranitidine REFAX TO [facility] PER DR COTTRELL,# 180 tablet, Refills 1, Tot. Refills 1, Maintenance, 01/16/20 15:06:00 EDT, Route to Pharmacy Electronically, [facility] #[id number], 180, cm, 0... Start Date: 01/16/20 Status: Ordered Flomax 0.4 mg oral capsule 0.4 mg, 1, capsule, By Mouth, Daily, REFAX TO [facility] PER DR COTTRELL, # 90 capsule, Refills 1, Tot. Refills 1, Maintenance, 01/16/20 15:08:00 EDT, Route to Pharmacy Electronically, [facility][id number], 180, cm, 12/03/19 13:50:00 EDT, Height Start Date: 01/16/20 Status: Ordered Flonase 50 mcg/inh nasal spray 2 sprays, Nares, Both, 2 times a day, # 16 Gm, 0 Refills, Maintenance, 11/16/18 10:23:39 EDT, [place] Start Date: 11/16/18 Status: Ordered isosorbide mononitrate 30 mg oral tablet, extended release 1 tablet, By Mouth, Daily in AM, REFAX TO [facility] PER DR COTTRELL, # 90 tablet, 1 Refills, Maintenance, 01/16/20 15:07:00 EDT, [facility] #[id number], 180, cm, 12/03/19 13:50:00 EDT, Height Start Date: 01/16/20 Status: Ordered Lamictal 100 mg oral tablet 1 tablet = 100 mg, By Mouth, 2 times a day, 0 Refills, Maintenance, 12/16/14 12:57:08 Start Date: 12/16/14 Status: Ordered Lidoderm 5% film See Instructions, Apply to affected area Topically Daily remove patches after 12 hours REFAX TO [facility] PER DR COTTRELL, # 30 patch, 5 Refills, Maintenance, 01/16/20 15:07:00 EDT, [facility] #[id number], Apply to affected area Topically Thomas... Start Date: 01/16/20 Status: Ordered metoprolol 25 mg oral tablet 25 mg, 1, tablet, By Mouth, 2 times a day, REFAX TO [facility] PER DR COTTRELL, # 180 tablet, Refills 1, Tot. Refills 1, Maintenance, 01/16/20 15:08:00 EDT, Route to Pharmacy Electronically, [facility] #[id number], 180, cm, 12/03/19 13:50:00 EDT,... Start Date: 01/16/20 Status: Ordered nitroglycerin 0.4 mg sublingual tablet 1 tablet = 0.4 mg, Sublingual, Every 5 minutes, PRN for chest pain, # 100 tablet, 0 Refills, Maintenance, 11/16/18 10:24:35 EDT, Tablet Start Date: 11/16/18 Status: Ordered Prozac 40 mg oral capsule [...]
--- OUTSIDE RECORDS SUMMARY | 2023-12-30 12:50 | XMS_ITS | Continuity of Care Document ---
Author Organization [facility] Kunal Aldair Address [address] [place] [address]- Care Team Providers Care Manager Of Pmo Name Role Phone Maria Esther URIAS, Balaji Quick Primary Care Physician [phone] [place] [facility] [place] 09[place]06[place]20 [facility] Adult [address] [place] [address]- Allergies, Adverse Reactions, Alerts Substance Reaction Severity [...] acel(Tdap) 2 08/02/17 Given 1Result Comment: [02/15/2018] 61544-864-81 2Result Comment: [08/02/2017] [facility] 16312-629-00 Medications amLODIPine 5 mg oral tablet 2.5 [...] 75 mg, 1, tablet, By Mouth, Daily, # 30 tablet, Refills 0, Maintenance, 08/18/20 1:48:00 EDT, Partial fill upon patient request if the prescription is for a schedule II opioid drug. Start Date: 08/18/20 Status: Ordered FLUoxetine 40 mg oral capsule [...] Daily in AM, # 30 tablet, Refills 0, Tot. Refills 0, Maintenance, 09/01/20 11:07:00 EDT, Do Not Route, Partial fill upon patient request if the prescription is for a schedule II opioid drug. Start Date: 09/01/20 Status: Ordered lamotrigine 25 mg oral tablet [...] opioid drug. Start Date: 08/18/20 Status: Ordered metoprolol 25 mg oral tablet 25 mg, 1, tablet, By Mouth, 2 times a day, # 180 tablet, Refills 3, Tot. Refills 3, Maintenance, 08/13/20 16:12:00 EDT, Route to Pharmacy Electronically, [facility], 180, cm, 07/02/20 8:37:00EST, Height Start Date: 08/13/20 Status: Ordered Metoprolol Tartrate 25 mg oral tablet 1 tablet = 25 mg, By Mouth, 2 times a day, # 180 tablet, 0 Refills, Maintenance, 08/18/20 1:49:00 EDT, Tablet, Partial fill upon patient request if the prescription is for a schedule II opioid drug. Start Date: 08/18/20 Status: Ordered Nicotine Gum 2 mg, Chew, [...] Type Response Smoking Status Current some day [facility] entered on: 02/15/18 Sex Male
--- OUTSIDE RECORDS SUMMARY | 2023-12-30 12:50 | XMS_ITS | Continuity of Care Document ---
Author Organization [facility] Aldair lt Address [address] [place] [address]- Care Team Providers Care Human Development Professor Name Role Phone Maria Esther URIAS, Balaji Quick Primary Care Physician [place] [facility] [place] 08[place]23 - 09/08/23 [facility] Adult [address] [place] [address]- Attending Physician: AdmBertha brown Admitting Physician: AdmtrBertha Referring Physician: Admtr, Ar8 Allergies, Adverse Reactions, Alerts Substance Reaction Severity [...] 23-valent vaccine 12/17/12 Recorded 1Result Comment: [02/15/2018] 36187-836-76 2Result Comment: [id number] 3Result Comment: [08/02/2017] [facility] 47939-519-76 Medications Aspirin Low Dose 81 mg oral delayed release tablet 1 tablet, By Mouth, Daily, # 90 tablet, 3 Refills, Maintenance, 11/08/22 11:19:00 EDT, [facility] #[id number], 184, cm, 11/03/22 11:28:00 EDT, Height, 106.3, kg, 09/13/22 12:30:00 EDT, Dry Weight Start Date: 11/08/22 Status: Ordered atorvastatin 80 mg oral tablet 1 tablet = 80 mg, By Mouth, Daily, # 90 tablet, 3 Refills, Maintenance, 08/18/23 16:03:00 EDT, Tablet, [facility] #[id number], Partial fill upon patient request if the prescription is for a schedule II opioid drug., 183, cm, 08/09/23 10:49:00 EDT... Start Date: 08/18/23 Status: Ordered BuPROPion (Eqv-Wellbutrin SR) 150 mg/12 hours oral tablet, extended release 1 tablet = 150 mg, By Mouth, 2 times a day, # 180 tablet, 3 Refills, Maintenance, 10/05/21 17:37:00EDT, SR Tablet, [facility] #[id number], Partial fill upon patient request if the prescription is for a schedule II opioid drug., 182, cm, 09/10/21... Start Date: 10/05/21 Status: Ordered clopidogrel 75 mg oral tablet 1, tablet, By Mouth, Daily, # 90 tablet, Refills 3, Tot. Refills 3, Maintenance, 08/18/23 16:03:00 EDT, Route to Pharmacy Electronically, [facility] #[id number], 183, cm, 08/09/23 10:49:00 EDT, Height, 107, kg, 01/26/23 19:57:00 EDT, Dry Weight Start Date: 08/18/23 Status: Ordered FLUoxetine 40 mg oral capsule 1 capsule = 40 mg, By Mouth, Daily, # 90 capsule, 3 Refills, Maintenance, 10/05/21 17:34:00 EDT, Capsule, [facility] #[id number], Partial fill upon patient request if the prescription is for a schedule II opioid drug., 182, cm, 09/10/21 8:13:00 E... Start Date: 10/05/21 Status: Ordered fluticasone 50 mcg/inh nasal spray 1 sprays = 50 mcg, Nares, Both, 2 times a day, PRN allergies, # 16 Gm, 11 Refills, Maintenance, 08/18/23 16:05:00 EDT, [place], [facility] #[id number], Partial fill upon patient request if the prescription is for a schedule II opioid drug., 1 spray... Start Date: 08/18/23 Status: Ordered lamotrigine 100 mg oral tablet [...] day, # 180 tablet, 0 Refills, Maintenance, 08/29/23 10:19:00 EDT, Tablet, Partial fill upon patient request if the prescription is for a schedule II opioid drug. Start Date: 08/29/23 Status: Ordered Nitrostat 0.4 mg sublingual tablet 1 tablet = 0.4 mg, Sublingual, Every 5 minutes, PRN Chest Pain, prn, # 30 tablet, 11 Refills, Maintenance, 08/18/23 16:04:00 EDT, Tablet, [facility] #[id number], Partial fill upon patient request if the prescription is for a schedule II opioid dr... Start Date: 08/18/23 Status: Ordered Norvasc 2.5 mg oral tablet 2.5 mg, 1, tablet, By Mouth, Daily, # 90 tablet, Refills 3, Tot. Refills 3, Maintenance, 08/18/23 16:02:00 EDT, Route to Pharmacy Electronically, [facility] #[id number], Partial fill upon patient request if the prescription is for a schedule II o... Start Date: 08/18/23 Status: Ordered omeprazole 20 mg oral enteric coated capsule 1 capsule = 20 mg, By Mouth, Daily, # 90 capsule, 3 Refills, Maintenance, 08/18/23 16:04:00 EDT, [facility] #[id number], Partial fill upon patient request if the prescription is for a schedule II opioid drug., 183, cm, 08/09/23 10:49:00 EDT, [place]... Start Date: 08/18/23 Status: Ordered QUEtiapine 400 mg oral tablet, extended release 400 mg, 1, tablet, By Mouth, Daily at bedtime, Maintenance, 09/13/22 17:09:00 EDT, Partial fill upon patient request if the prescription is for a schedule II opioid drug. Start Date: 09/13/22 Status: Ordered Senna 8.6 mg oral tablet 8.6 mg, 1, tablet, By Mouth, Daily at bedtime, PRN, # 90 tablet, Refills 3, Tot. Refills 3, Acute, constipation, 08/17/24 16:02:00 EDT, 08/18/23 16:01:00 EDT, Route to Pharmacy Electronically, [facility] #[id number] Tablet, Partial fill upon ani... Start Date: 08/18/23 Stop Date: 08/17/24 Status: Ordered traZODone 100 mg oral tablet 200 mg, 2, tablet, By Mouth, Daily at bedtime, # 180 tablet, Refills 3, Tot. Refills 3, Maintenance, 10/05/21 17:36:00 EDT, Route to Pharmacy Electronically, [facility] #[id number], Partial fillupon patient request if the prescription [...] last 30 days entered on: 06/01/23 Sex Cardiology * Event Display: Cardiology Office Note, Non- Authored Date: * Event Display: Cardiology Office Note, Non- Authored Date: * Event Display: Cardiology Office Note, Non- Authored Date: * Event Display: Cardiovascular Result Scanned Authored Date: Radiology * Event Display: X-Ray Chest, Non- Authored Date: * Event Display: CT Scan Head, Non- Authored Date: * Event Display: MRI Head, Non- Authored Date: * Event Display: Ultrasound Neck, Non- Authored Date: * Event Display: Ultrasound Renal, Non Authored Date: Patient Care team information Care Team Personnel Name: [place] RN Position: [facility] ED RN W/OE and Tasks Member Role: Primary Care Nurse Name: Esme Garcia RN Position: S RN Member Role: Primary Care Nurse Name: Erich Dias RN Position: S RN Member Role: Primary Care Nurse Name: Camila Vazquez RN Position: S RN Member Role: Primary Care Nurse Name: Taylor Beck RN Position: [facility] RN Member Role: Primary Care Nurse Name: Amanda Moraes RN Position: [facility] RN Member Role: Primary Care Nurse Name: Mary Roberson RN Position: [facility] RN Member Role: Primary Care Nurse Name: Tomas Stauffer RN Position: [facility] RN Member Role: Primary Care Nurse Name: Balaji Mayo MD Position: [facility] Physician - Primary Care Member Role: PCP Address: Address: [address] [place] [address]- Care Team Related Persons Name: ROSANA NGAY Address: home [address] [place] [address] Name: GORAN QUINTERO
--- OUTSIDE RECORDS SUMMARY | 2023-12-30 12:50 | XMS_ITS | Continuity of Care Document ---
Author Organization [facility] Kunal Adlair lt Address [address] [place] [address]- Care Team Providers Care Tar Boiler Name Role Phone Maria Esther URIAS, Balaji Quick Primary Care Physician [facility]counter [facility] Date(s): 04/05/21 - 05/05/21 [facility] Adult [address] [place] [address]- Allergies, Adverse Reactions, Alerts Substance Reaction Severity [...] 23-valent vaccine 12/17/12 Recorded 1Result Comment: [02/15/2018] 80433-414-72 2Result Comment: [08/02/2017] [facility] 45798-024-85 Medications amLODIPine 5 mg oral tablet 2.5 [...] Refills, Maintenance, 02/18/21 9:19:00 EDT, EC Tablet, [facility], Partial fill upon patient request if the prescription is for a schedule II opioid drug., 180, cm, 01/26/21 13:02:00 EDT, Height Start Date: 02/18/21 Status: Ordered atorvastatin 80 mg oral tablet 1 tablet = 80 mg, By Mouth, Daily, # 90 tablet, 3 Refills, Maintenance, 03/25/21 16:47:00 EST, Tablet, [facility] #[id number], Partial fill upon patient request if the prescription is for a schedule II opioid drug., 180, cm, 02/19/21 13:36:00 EDT... Start Date: 03/25/21 Status: Ordered BuPROPion (Eqv-Wellbutrin SR) 150 mg/12 [...] tablet, Refills 3, Tot. Refills 3, Maintenance, 03/25/21 16:47:00 EST, Route to Pharmacy Electronically, [facility] #[id number], 180, cm, 02/19/21 13:36:00 EDT, Height Start Date: 03/25/21 Status: Ordered Flonase 50 mcg/inh nasal spray 1 sprays = 50 mcg, Nares, Both, 2 times a day, # 16 Gm, 5 Refills, Maintenance, 09/29/20 16:49:00 EDT, Nasal [place], [facility] #[id number], Partial fill upon patient request if the [...] 09/13/20 6:59:00 EDT, Route to Pharmacy Electronically, [facility] #[id number], Partial fill upon patient request if the [...] 11 Refills, Maintenance, 02/20/21 7:32:00 EDT, Patch, [facility], Partial fill upon patient request if the prescription is for a schedule II opioid drug., 1 patch T... Start Date: 02/20/21 Status: Ordered Metoprolol Tartrate 25 mg oral tablet 1 tablet, By Mouth, 2 times a day, # 180 tablet, 3 Refills, Maintenance, 03/25/21 16:47:00 EST, [facility] #[id number], 180, cm, 02/19/21 13:36:00 EDT, Height Start Date: 03/25/21 Status: Ordered nitroglycerin 0.4 mg sublingual tablet [...] Status: Ordered tamsulosin 0.4 mg oral capsule See Instructions, TAKE 1 CAPSULE BY MOUTH ONCE A DAY, # 31 capsule, Refills 5, Instructions ReplaceRequired Details, Route to Pharmacy Electronically, [facility], 180, cm, 02/19/21 13:36:00 EDT, Height Start Date: 05/04/21 Status: Ordered traZODone 100 mg oral tablet [...] use(Confirmed) Active Tubular adenoma of colon(Confirmed) 3 3/4/19 Active 112/11 Xience NIKKI x 2 to proximal LAD 2L side, by duplex 3repeat screening colonoscopy in 2021 Social History Social History Type Response Smoking Status Current some day mata garza entered on: 02/15/18 Sex
--- OUTSIDE RECORDS SUMMARY | 2023-12-30 12:50 | XMS_ITS | Continuity of Care Document ---
Author Organization [facility] Kunal Aldair lt Address [address] [place] [address]- Care Team Providers Care Instrumentation Fitter Name Role Phone Maria Esther URIAS, Balaji Quick Primary Care Physician [facility] - 10/02/21 [facility] Adult [address] [place] [address]- Allergies, Adverse Reactions, Alerts Substance Reaction Severity [...] 23-valent vaccine 12/17/12 Recorded 1Result Comment: [02/15/2018] 63560-308-61 2Result Comment: [08/02/2017] [facility] 76854-957-52 Medications aspirin 81 mg oral delayed release tablet = 81 mg, By Mouth, Daily, # 90 tablet, 3 Refills, Maintenance, 02/18/21 9:19:00 EDT, EC Tablet, [facility], Partial fill upon patient request if the prescription is for a schedule II opioid drug., 180, cm, 01/26/21 13:02:00 EDT, Height Start Date: 02/18/21 Status: Ordered atorvastatin 80 mg oral tablet 1 tablet = 80 mg, By Mouth, Daily, # 90 tablet, 3 Refills, Maintenance, 03/25/21 16:47:00 EST, Tablet, [facility] #[id number], Partial fill upon patient request if the [...] 03/25/21 16:47:00 EST, Route to Pharmacy Electronically, [facility] #[id number], 180, cm, 02/19/21 13:36:00 EDT, Height Start Date: 03/25/21 Status: Ordered Docusate/Senna Tablet 1 tablet, By Mouth, 2 times a day, PRN Constipation, 0 Refills, Maintenance, 09/10/21 9:15:00 EDT, Tablet, Partial fill upon patient request if the prescription is for a schedule II opioid drug. Start Date: 09/10/21 Status: Ordered Duoneb Inhalation Solution 1, vials, BAND Nebulizer, Every 6 hours, PRN, Refills 0, Maintenance, 09/10/21 9:15:00 EDT, Inhalation Solution Start Date: 09/10/21 Status: Ordered Flonase 50 mcg/inh nasal spray 1 sprays = 50 mcg, Nares, Both, 2 times a day, # 16 Gm, 5 Refills, Maintenance, 09/29/20 16:49:00 EDT, Nasal [place], [facility] #[id number], Partial fill upon patient request if the prescription is for a schedule II opioid drug., 1 Frances Maxwell. Start Date: 09/29/20 Status: Ordered FLUoxetine 40 [...] mononitrate 30 mg oral tablet, extended release See Instructions, TAKE 1 TABLET BY MOUTH EVERY MORNING, # 28 tablet, 2 Refills, [facility],182, cm, 09/10/21 8:13:00 EDT, Height, 102.7, kg, 09/08/21 16:41:00 EDT, Dry Weight Start Date: 09/13/21 Status: Ordered Knee Support See Instructions, # 1 each, Maintenance, Hinged knee brace, left knee, 02/08/21 6:40:00 EDT, Supply Start Date: 02/08/21 Status: Ordered lamotrigine 25 mg oral tablet 100 mg, 4, tablet, By Mouth, 2 times a day, Refills 0, Maintenance, 09/01/20 10:54:00 EDT, Partial fill upon patient request if the prescription is for a schedule II opioid drug. Start Date: 09/01/20 Status: Ordered lidocaine 5% topical film 1 patch, Topically, Daily, PRN Pain , Mild, remove after 12 hours, # 30 patch, 11 Refills, Maintenance, 02/20/21 7:32:00 EDT, Patch, [facility], Partial fill upon patient request if the prescription is for a schedule II opioid drug., 1 patch T... 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
--- OUTSIDE RECORDS SUMMARY | 2023-12-30 12:50 | XMS_ITS | Continuity of Care Document ---
Author Organization [facility] Rico Syed Aldair Address [address] [place] [address]- Care Team Providers Care Canadian Bacon Tier Name Role Phone Maria Esther URIAS, Balaji Quick Primary Care Physician [facility] - 05/13/23 [facility] Rico Syed Adult [address] [place] [address]- Allergies, Adverse Reactions, Alerts Substance Reaction Severity [...] 23-valent vaccine 12/17/12 Recorded 1Result Comment: [02/15/2018] 98659-003-25 2Result Comment: [id number] 3Result Comment: [08/02/2017] [facility] 55039-275-70 Medications Aspirin Low Dose 81 mg oral delayed release tablet 1 tablet, By Mouth, Daily, # 90 tablet, 3 Refills, Maintenance, 11/08/22 11:19:00 EDT, [facility] #[id number], 184, cm, 11/03/22 11:28:00 EDT, Height, 106.3, kg, 09/13/22 12:30:00 EDT, Dry Weight Start Date: 11/08/22 Status: Ordered atorvastatin 80 mg oral tablet 1 tablet = 80 mg, By Mouth, Daily, # 90 tablet, 3 Refills, Maintenance, 12/05/22 4:30:00 EDT, Tablet, [facility] #[id number], Partial fill upon patient request if the prescription is for a schedule II opioid drug., 183, cm, 11/10/22 17:28:00 EDT,... Start Date: 12/05/22 Status: Ordered BuPROPion (Eqv-Wellbutrin SR) 150 mg/12 hours oral tablet, extended release 1 tablet = 150 mg, By Mouth, 2 times a day, # 180 tablet, 3 Refills, Maintenance, 10/05/21 17:37:00EDT, SR Tablet, [facility] #[id number], Partial fill upon patient request if the prescription is for a schedule II opioid drug., 182, cm, 09/10/21... Start Date: 10/05/21 Status: Ordered clopidogrel 75 mg oral tablet 1, tablet, By Mouth, Daily, # 90 tablet, Refills 3, Maintenance, 01/13/23 16:50:00 EDT, Route to Pharmacy Electronically, [facility] #[id number], 183, cm, 12/05/22 16:08:00 EDT, Height, 106.3, kg, 09/13/22 12:30:00 EDT, Dry Weight Start Date: 01/13/23 Status: Ordered Flonase 50 mcg/inh nasal spray 1 sprays = 50 mcg, Nares, Both, 2 times a day, # 16 Gm, 5 Refills, Maintenance, 09/15/22 8:26:00 EDT, Nasal [place], [facility] #[id number], Partial fill upon patient request if the prescription is for a schedule II opioid drug., 1 sprays Nares, Tolu... Start Date: 09/15/22 Status: Ordered FLUoxetine 40 mg oral capsule 1 capsule = 40 mg, By Mouth, Daily, # 90 capsule, 3 Refills, Maintenance, 10/05/21 17:34:00 EDT, Capsule, [facility] #[id number], Partial fill upon patient request if the [...] 11 Refills, Maintenance, 11/30/22 6:36:00 EDT, Tablet, [facility] #[id number], Partial fill upon patient requestif the prescription [...] capsule, 1 Refills, Maintenance, 09/28/22 9:21:00 EDT, [facility] #[id number], Partial fill upon patient request if the [...] 10/05/21 17:36:00 EDT, Route to Pharmacy Electronically, [facility] #[id number], Partial fillupon patient request if the prescription [...] Team Personnel Name: Wild Woods RN Position: [facility] ED RN W/OE and Tasks Member Role: Primary Care Nurse Name: Esme Garcia RN Position: [facility] RN Member Role: Primary Care Nurse Name: Erich Dias RN Position: [facility] RN Member Role: Primary Care Nurse Name: Camila Vazquez RN Position: [facility] RN Member Role: Primary Care Nurse Name: Taylor Beck RN Position: [facility] RN Member Role: Primary Care Nurse Name: Amanda Garibay RN Position: [facility] RN Member Role: Primary Care Nurse Name: Mary Roberson RN Position: [facility] RN Member Role: Primary Care Nurse Name: Tomas Stauffer RN Position: [facility] RN Member Role: Primary Care Nurse Name: Balaji Mayo MD Position: [facility] Physician - Primary Care Member Role: PCP Address: Address: [address] [place] [address]- Care Team Related Persons Name: YAKOV ROSANA Address: home [address] [place] [id number] Name: GORAN QUINTERO
--- OUTSIDE RECORDS SUMMARY | 2023-12-30 12:50 | XMS_ITS | Continuity of Care Document ---
Author Organization [facility] Rico Syed Aldair lt Address [address] [place] [address]- Care Team Providers Care Breaker Boss Name Role Phone Maria Esther URIAS, Balaji Quick Primary Care Physician [phone] [facility] - 06/12/22 [facility] Rico Syed Adult [address] [place] [address]- Allergies, Adverse Reactions, Alerts Substance Reaction Severity [...] pneumococcal 23-valent vaccine 12/17/12 Recorded 1Result Comment: [id number] 2Result Comment: [02/15/2018] [id number] 3Result Comment: [08/02/2017] [facility] 62441-925-12 Medications aspirin 81 mg oral delayed release tablet = 81 mg, By Mouth, Daily, # 90 tablet, 3 Refills, Maintenance, 10/05/21 17:34:00 EDT, EC Tablet, [facility] #[id number], Partial fill upon patient request if the prescription is for a schedule II opioid drug., 182, cm, 09/10/21 8:13:00 EDT, [place]... Start Date: 10/05/21 Status: Ordered atorvastatin 80 mg oral tablet 1 tablet = 80 mg, By Mouth, Daily, # 90 tablet, 3 Refills, Maintenance, 10/05/21 17:34:00 EDT, Tablet, [facility] #[id number], Partial fill upon patient request if the prescription is for a schedule II opioid drug., 182, cm, 09/10/21 8:13:00 EDT,... Start Date: 10/05/21 Status: Ordered BuPROPion (Eqv-Wellbutrin SR) 150 mg/12 hours oral tablet, extended release 1 tablet = 150 mg, By Mouth, 2 times a day, # 180 tablet, 3 Refills, Maintenance, 10/05/21 17:37:00EDT, SR Tablet, [facility] #[id number], Partial fill upon patient request if the prescription is for a schedule II opioid drug., 182, cm, 09/10/21... Start Date: 10/05/21 Status: Ordered clopidogrel 75 mg oral tablet 1, tablet, By Mouth, Daily, # 90 tablet, Refills 3, Tot. Refills 3, Maintenance, 10/05/21 17:34:00 EDT, Route to Pharmacy Electronically, [facility] #[id number], 182, cm, 09/10/21 8:13:00 EDT, Height, 102.7, kg, 09/08/21 16:41:00 EDT, Dry Weight Start Date: 10/05/21 Status: Ordered Flonase 50 mcg/inh nasal spray 1 sprays = 50 mcg, Nares, Both, 2 times a day, # 16 Gm, 5 Refills, Maintenance, 09/29/20 16:49:00 EDT, Nasal [place], [facility] #[id number], Partial fill upon patient request if the prescription is for a schedule II opioid drug., 1 sprays Nares, B... Start Date: 09/29/20 Status: Ordered FLUoxetine 40 mg oral capsule 1 capsule = 40 mg, By Mouth, Daily, # 90 capsule, 3 Refills, Maintenance, 10/05/21 17:34:00 EDT, Capsule, [facility] #[id number], Partial fill upon patient request if the prescription is for a schedule II opioid drug., 182, cm, 09/10/21 8:13:00 E... Start Date: 10/05/21 Status: Ordered isosorbide mononitrate 30 mg oral tablet, extended release 1 tablet = 30 mg, By Mouth, Daily in AM, # 90 tablet, 3 Refills, 10/05/21 17:35:00 EDT, [facility] #[id number], 182, cm, 09/10/21 8:13:00 EDT, Height, 102.7, kg, 09/08/21 16:41:00 EDT, Dry Weight Start Date: 10/05/21 Status: Ordered lamotrigine 25 mg oral tablet 100 mg, 4, tablet, By Mouth, 2 times a day, # 720 tablet, Refills 3, Tot. Refills 3, Maintenance, 10/06/21 14:57:00 EDT, Route to Pharmacy Electronically, [facility] #[id number], Partial fill upon patient request if the prescription is for a sche... Start Date: 10/06/21 Stop Date: 10/01/22 Status: Ordered lidocaine 5% topical film 1 patch, Topically, Daily, PRN Pain , Mild, remove after 12 hours, # 30 patch, 11 Refills, Maintenance, 02/20/21 7:32:00 EDT, Patch, [facility], Partial fill upon patient request if the prescription is for a schedule II opioid drug., 1 patch T... Start Date: 02/20/21 Status: Ordered metoprolol 25 mg oral tablet 25 mg, 1, tablet, By Mouth, 2 times a day, increase in dose, # 60 tablet, Refills 2, Tot. Refills 2, Maintenance, 06/06/22 14:13:00 EST, Route to Pharmacy Electronically, [facility] #[id number],Partial fill upon patient request if the prescripti... Start Date: 06/06/22 Status: Ordered traZODone 100 mg oral tablet 200 mg, 2, tablet, By Mouth, Daily at bedtime, # 180 tablet, Refills 3, Tot. Refills 3, Maintenance, 10/05/21 17:36:00 EDT, Route to Pharmacy Electronically, [facility] #[id number], Partial fillupon patient request if the prescription [...] Name: Wild Woods RN Position: [facility] ED RN W/OE and Tasks Member Role: Primary Care Nurse Name: Camila Vazquez RN Position: [facility] RN Member Role: Primary Care Nurse Name: Amanda Garibay RN Position: [facility] RN Member Role: Primary Care Nurse Name: Mary Roberson RN Position: [facility] RN Member Role: Primary Care Nurse Name: Tomas Stauffer RN Position: [facility] RN Member Role: Primary Care Nurse Name: Balaji Mayo MD Position: [facility] Primary Care Physician Member Role: PCP Address: Address: [address] [place] [address]- [place] Care Team Related Persons Name: ROSANA NAGY Address: home [address] [place] [id number] Name: GORAN QUINTERO
--- OUTSIDE RECORDS SUMMARY | 2023-12-30 12:50 | XMS_ITS | Continuity of Care Document ---
Author Organization [facility] Address [address] [place] [address]- Care Team Providers Care Internet Retailer Name Role Phone Balaji Mayo MD Primary Care Physician Encounter [facility] AC[facility] R [id number] Date(s): 03/15/23 - 03/22/23 [facility] [address] [place] [address] Attending Physician: Rose HYATT, Key Han Admitting [...] 23-valent vaccine 12/17/12 Recorded 1Result Comment: [02/15/2018] [id number] 2Result Comment: [id number] 3Result Comment: [08/02/2017] [facility] 31241-308-59 Medications Aspirin Low Dose 81 mg oral delayed release tablet 1 tablet, By Mouth, Daily, # 90 tablet, 3 Refills, Maintenance, 11/08/22 11:19:00 EDT, [facility] #[id number], 184, cm, 11/03/22 11:28:00 EDT, Height, 106.3, kg, 09/13/22 12:30:00 EDT, Dry Weight Start Date: 11/08/22 Status: Ordered atorvastatin 80 mg oral tablet 1 tablet = 80 mg, By Mouth, Daily, # 90 tablet, 3 Refills, Maintenance, 12/05/22 4:30:00 EDT, Tablet, [facility] #[id number], Partial fill upon patient request if the prescription is for a schedule II opioid drug., 183, cm, 11/10/22 17:28:00 EDT,... Start Date: 12/05/22 Status: Ordered BuPROPion (Eqv-Wellbutrin SR) 150 mg/12 hours oral tablet, extended release 1 tablet = 150 mg, By Mouth, 2 times a day, # 180 tablet, 3 Refills, Maintenance, 10/05/21 17:37:00EDT, SR Tablet, [facility] #[id number], Partial fill upon patient request if the prescription is for a schedule II opioid drug., 182, cm, 09/10/21... Start Date: 10/05/21 Status: Ordered clopidogrel 75 mg oral tablet 1, tablet, By Mouth, Daily, # 90 tablet, Refills 3, Maintenance, 01/13/23 16:50:00 EDT, Route to Pharmacy Electronically, [facility] #[id number], 183, cm, 12/05/22 16:08:00 EDT, Height, 106.3, kg, 09/13/22 12:30:00 EDT, Dry Weight Start Date: 01/13/23 Status: Ordered Flonase 50 mcg/inh nasal spray 1 sprays = 50 mcg, Nares, Both, 2 times a day, # 16 Gm, 5 Refills, Maintenance, 09/15/22 8:26:00 EDT, Nasal [place], [facility] #[id number], Partial fill upon patient request if the prescription is for a schedule II opioid drug., 1 sprays Nares, Tolu... Start Date: 09/15/22 Status: Ordered FLUoxetine 40 mg oral capsule 1 capsule = 40 mg, By Mouth, Daily, # 90 capsule, 3 Refills, Maintenance, 10/05/21 17:34:00 EDT, Capsule, [facility] #[id number], Partial fill upon patient request if the [...] 11 Refills, Maintenance, 11/30/22 6:36:00 EDT, Tablet, [facility] #[id number], Partial fill upon patient requestif the prescription [...] capsule, 1 Refills, Maintenance, 09/28/22 9:21:00 EDT, [facility] #[id number], Partial fill upon patient request if the [...] 10/05/21 17:36:00 EDT, Route to Pharmacy Electronically, [facility] #[id number], Partial fillupon patient request if the prescription [...] Discern Expert 2repeat screening colonoscopy in 2021 Vital Signs Most recent to oldest [Reference Range]: 1 Height 183 cm (03/15/23 10:45 AM) Weight 97.72 kg (03/15/23 10:45 AM) Oxygen Saturation [94-100 %] 93 % *L* (03/15/23 10:45 AM) Pulse Rate [55-90 bpm] 76 bpm (03/15/23 10:45 AM) Body Mass Index [18.5-24.99 kg/m2] 29.18 kg/m2 *H* (03/15/23 10:45 AM) Blood Pressure [90-138/55-84 mm Hg] 160/ 90mm Hg *H* (03/15/23 10:45 AM) Blood pressure sites Arm, right (03/15/23 10:45 AM) Weight Obtained Via Patient/family state d (03/15/23 10:45 AM) Social History Social History Type Response Smoking Status Current some day [facility] entered on: 02/15/18 Sex Note * Mary Alfaro: PERFORM, SIGN, VERIFY Event Display: Patient Education/Instruction Authored Date: [id number] [facility] *[facility] [address] Clinical Summary Name ALIYA NAGY Age 67 Years 1955 PCP Maria Esther URIAS, Balaji Quick PCP Visit Date 03/15/2023 10:30:00 Additional Instructions: Scheduled Appointments?? Future Appointments ?*[facility]??Neurology ?[address] ?[place],??[place],??[address] ?Phone:??--?Fax:??-- ?Appt. Date:??03/21/2023?4:00 PM ?Scheduled Provider:??Cindy URIAS, Reagan Diaz Follow-Up Instructions ?? With: Address: When: Donn Olguin MD Comments: see??Cis message from 11/11, plan for CTA in March.?I put in blood work (CKD 3b), we may need to reach out to Dr. Piña (nephrolologist,), book CTA abd/pelvis Diagnosis Medications: Please continue your medications until treatment is completed or stopped by your provider. Discuss any questions related to medications with your provider. Medications to Continue with No Changes These medications were not printed or sent to your pharmacy Amlodipine (Norvasc 2.5 mg oral tablet) 1 tab(s) Oral Daily. Next Dose: Aspirin (Aspirin Low Dose 81 mg oral delayed release tablet) 1 tab(s) Oral Daily. Refills: 3. Next Dose: Atorvastatin (atorvastatin 80 mg oral tablet) 1 tab(s) Oral Daily. Refills: 3. Next Dose: BuPROpion (BuPROPion (Eqv-Wellbutrin SR) 150 mg/12 hours oral tablet, extended release) 1 tab(s) Oral twice a day. Refills: 3. Next Dose: Clopidogrel (clopidogrel 75 mg oral tablet) 1 tab(s) Oral Daily. Refills: 3. Next Dose: Fluoxetine (FLUoxetine 40 mg oral capsule) 1 capsule Oral Daily. Refills: 3. Next Dose: Fluticasone Nasal (Flonase 50 mcg/inh nasal spray) 1 spray(s) Nares, Both twice a day. Refills: 5. Next Dose: Lamotrigine (lamotrigine 100 mg oral tablet) 2 tab(s) Oral twice a day. Refills: 0. Next Dose: Lidocaine Topical (Lidoderm 5% film) Topically Daily. Next Dose: Nitroglycerin (Nitrostat 0.4 mg sublingual tablet) 1 tab(s) Sublingual every 5 minutes as needed Chest Pain. prn. Refills: 11. Next Dose: Omeprazole (omeprazole 20 mg oral enteric coated capsule) 1 capsule Oral Daily for 30 Days. Refills: 1. Next Dose: Quetiapine (QUEtiapine 400 mg oral tablet, extended release) 1 tab(s) Oral Daily at Bedtime. Next Dose: Trazodone (traZODone 100 mg oral tablet) 2 tab(s) Oral Daily at Bedtime. Refills: 3. Next Dose: Allergy Info:?? Nicotine Patch; Abilify; Nuts; Vistaril; Benadryl; Clozaril; Claritin Medications Given This Visit Future Orders ?CT Angio Abdomen and Pelvis? Order Date:03/15/23?- Complete within?30 days ?BUN? Order Date:03/15/23?- Complete by?04/14/23 ?Creatinine? Order Date:03/15/23?- Complete by?04/14/23 Vital Signs Height 183 cm Weight 97.72 kg BMI 29.18 kg/m2 Blood Pressure 160 mm Hg/90 mm Hg Temperature Pulse Rate 76 bpm Respiratory Rate 02 Sat Mode of Delivery 93 %/ You can now view a summary of your hospital visit from the comfort of your home through a free online portal called [employer]. [employer] is a website that allows you to securely view your medical information including discharge summary, medications and follow-up visits. ??You can alsosend a secure electronic message to your doctor???s office to request appointments, renew medications or just ask a question. You can enroll at [email or web address] or register during your next office visit. Disclaimer:?? The information provided is of a general nature and is intended to be used in conjunction with the recommendations and advice of your health care practitioner. ??Every effort has been made to ensure that the information provided is accurate and complete at the time it is provided to you however, as your needs change, or, as new ??information becomes available, different or additional instructions may be required. If you have questions, please consult with your primary care provider or pharmacist, as appropriate. ??This information is not intended to serve as substitution for assessment and evaluation by a qualified health care provider. If you do not have a primary care provider, you may find a [facility] provider by calling [facility] Link at [phone]. [facility], in keeping with [facility] guidance, no longer requires face masks for staff, patientsor visitors in most situations. Similar to time spent indoors at other locations, there is the chance that you were exposed to respiratory viruses during your time with us (such as flu or COVID-19).? If you develop symptoms concerning for a viral respiratory infection, please seek testing (and treatment if indicated) from your medical provider or home test kit. For information about the plan of care including goals and instructions for your diagnosis, please see the patient education orders section of this document. Patient Education Materials?? The content of this educational material or handout may have been modified, supplemented, or adapted from its original content and format to support your individualized medical care. Patient Care team information Care Team Personnel Name: Wild Woods RN Position: [facility] ED RN W/OE and Tasks Member Role: Primary Care Nurse Name: Esme Garcia RN Position: [facility] RN Member Role: Primary Care Nurse Name: Erich Dias RN Position: [facility] RN Member Role: Primary Care Nurse Name: Camila Vazquez RN Position: [facility] RN Member Role: Primary Care Nurse Name: Taylor Beck RN Position: [facility] RN Member Role: Primary Care Nurse Name: Amanda Garibay RN Position: [facility] RN Member Role: Primary Care Nurse Name: Mary Roberson RN Position: [facility] RN Member Role: Primary Care Nurse Name: Tomas Stauffer RN Position: [facility] RN Member Role: Primary Care Nurse Name: Balaji Mayo MD Position: [facility] Physician - Primary Care Member Role: PCP Address: Address: [address] [place] [address]- Name: Fadumo Conti RN Position: [facility] RN Member Role: Primary Care Nurse Care Team Related Persons Name: ROSANA NAGY Address: [address] [address] Name: GORAN QUINTERO
--- OUTSIDE RECORDS SUMMARY | 2023-12-30 12:50 | XMS_ITS | Continuity of Care Document ---
Author Organization [facility] Kunal Aldair lt Address [address] [place] [address]- Care Team Providers Care Tarper Name Role Phone Balaji Mayo MD Primary Care Physician [place] [facility] [place] 11/25/22 - 12/31/22 [facility] [address] [place] [address]- Attending Physician: Balaji Mayo MD Allergies, Adverse [...] pneumococcal 23-valent vaccine 12/17/12 Recorded 1Result Comment: [id number] 2Result Comment: [02/15/2018] 19306-542-34 3Result Comment: [08/02/2017] [facility] 69016-028-80 Medications amLODIPine 10 mg oral tablet 10 mg, 1, tablet, By Mouth, Daily, # 90 tablet, Refills 3, Tot. Refills 3, Maintenance, 10/26/22 13:35:00 EDT, Route to Pharmacy Electronically, [facility] #[id number], Partial fill upon patientrequest if the prescription is for a schedule II op... Start Date: 10/26/22 Status: Ordered Aspirin Low Dose 81 mg oral delayed release tablet 1 tablet, By Mouth, Daily, # 90 tablet, 3 Refills, Maintenance, 11/08/22 11:19:00 EDT, [facility] #[id number], 184, cm, 11/03/22 11:28:00 EDT, Height, 106.3, kg, 09/13/22 12:30:00 EDT, Dry Weight Start Date: 11/08/22 Status: Ordered atorvastatin 80 mg oral tablet 1 tablet = 80 mg, By Mouth, Daily, # 90 tablet, 3 Refills, Maintenance, 12/05/22 4:30:00 EDT, Tablet, [facility] #[id number], Partial fill upon patient request if the prescription is for a schedule II opioid drug., 183, cm, 11/10/22 17:28:00 EDT,... Start Date: 12/05/22 Status: Ordered BuPROPion (Eqv-Wellbutrin SR) 150 mg/12 hours oral tablet, extended release 1 tablet = 150 mg, By Mouth, 2 times a day, # 180 tablet, 3 Refills, Maintenance, 10/05/21 17:37:00EDT, SR Tablet, [facility] #[id number], Partial fill upon patient request if the prescription is for a schedule II opioid drug., 182, cm, 09/10/21... Start Date: 10/05/21 Status: Ordered clopidogrel 75 mg oral tablet 1, tablet, By Mouth, Daily, # 90 tablet, Refills 0, Maintenance, 10/07/22 6:36:00 EDT, Route to Pharmacy Electronically, [facility] #[id number], 184, cm, 09/28/22 9:02:00 EDT, Height, 106.3, kg,09/13/22 12:30:00 EDT, Dry Weight Start Date: 10/07/22 Status: Ordered Flonase 50 mcg/inh nasal spray 1 sprays = 50 mcg, Nares, Both, 2 times a day, # 16 Gm, 5 Refills, Maintenance, 09/15/22 8:26:00 EDT, Nasal [place], [facility] #[id number], Partial fill upon patient request if the [...] 3 Refills, Maintenance, 10/05/21 17:34:00 EDT, Capsule, [facility] #[id number], Partial fill upon patient request if the prescription is for a schedule II opioid drug., 182, cm, 09/10/21 8:13:00 E... Start Date: 10/05/21 Status: Ordered isosorbide mononitrate 30 mg oral tablet, extended release 1 tablet, By Mouth, Daily in AM, # 90 tablet, 3 Refills, Maintenance, 10/20/22 16:40:00 EDT, [facility] #[id number], 184, cm, 09/28/22 9:02:00 EDT, Height, 106.3, [...] tablet, 5 Refills, Maintenance, 09/18/22 18:55:00 EDT, [facility] #[id number], 184, cm, 09/15/22 9:12:00 EDT, Height, 106.3, kg, 09/13/22 12:30:00 EDT, Dry Weight Start Date: 09/18/22 Status: Ordered Nitrostat 0.4 mg sublingual tablet 1 tablet = 0.4 mg, Sublingual, Every 5 minutes, PRN Chest Pain, prn, # 30 tablet, 11 Refills, Maintenance, 11/30/22 6:36:00 EDT, Tablet, [facility] #[id number], Partial fill upon patient requestif the prescription is for a schedule II opioid lisa... Start Date: 11/30/22 Status: Ordered omeprazole 20 mg oral enteric coated capsule 1 capsule = 20 mg, By Mouth, Daily, # 30 capsule, 1 Refills, Maintenance, 09/28/22 9:21:00 EDT, [facility] #[id number], Partial fill upon patient request if [...] 10/05/21 17:36:00 EDT, Route to Pharmacy Electronically, [facility] #[id number], Partial fillupon patient request if the prescription [...] Team Personnel Name: Wild Woods RN Position: [facility] ED RN W/OE and Tasks Member Role: Primary Care Nurse Name: Erich Dias RN Position: S RN Member Role: Primary Care Nurse Name: Camila Vazquez RN Position: S RN Member Role: Primary Care Nurse Name: Taylor Beck RN Position: S RN Member Role: Primary Care Nurse Name: Amanda Garibay RN Position: S RN Member Role: Primary Care Nurse Name: Mary Roberson RN Position: S RN Member Role: Primary Care Nurse Name: Tomas Stauffer RN Position: [facility] ED RN W/OE and Tasks Member Role: Primary Care Nurse Name: Balaji Mayo MD Position: [facility] Physician - Primary Care Member Role: PCP Address: Address: [address] [place] [address]- Name: Fadumo Conti RN Position: S RN Member Role: Primary Care Nurse Care Team Related Persons Name: ROSANA NAGY Address: home [address] [place] [id number] Name: GORAN QUINTERO
--- OUTSIDE RECORDS SUMMARY | 2023-12-30 12:51 | XMS_ITS | Continuity of Care Document ---
Author Organization [facility] Address [address] [place] [phone]- Care Team Providers Care Label Cutter Name Role Phone Maria Esther URIAS, Balaji Quick Primary Care Physician [phone] [place] [facility] [place] 05/15/20 - 06/14/20 [facility] [address] [place], [place] [address] Allergies, Adverse Reactions, Alerts Substance Reaction Severity Status Claritin Active Clozaril Active Benadryl Active Vistaril Active Nuts Active Abilify Active Nicotine Patch Active Immunizations Given and Recorded Vaccine Date Status Refusal Reason influenza virus vaccine, inactivated 03/04/20 Give n influenza virus vaccine, inactivated 01/29/19 Give n influenza virus vaccine, inactivated 1 02/15/18 Gi juan tetanus/diphtheria/pertussis, acel(Tdap) 2 08/02/17 Given 1Result Comment: [02/15/2018] 63045-891-77 2Result Comment: [08/02/2017] [facility] 57621-996-84 Medications amLODIPine 5 mg oral tablet 5 mg, 1, tablet, By Mouth, Daily, REFAX TO [facility] PER DR COTTRELL, # 90 tablet, Refills 3, Tot.Refills 3, Maintenance, 01/16/20 15:03:00 EDT, Route to Pharmacy Electronically, [facility] #[id number], 180, cm, 12/03/19 13:50:00 EDT, Height Start Date: 01/16/20 Status: Ordered Aspirin Tablet 81 mg, By Mouth, Daily, Maintenance, 04/15/13 17:02:08 Start Date: 04/15/13 Status: Ordered atorvastatin 80 mg oral tablet 1 tablet = 80 mg, By Mouth, Daily in AM, REFAX TO [facility] PER DR COTTRELL, # 90 tablet, 1 Refills, Maintenance, 01/16/20 15:04:00 EDT, Tablet, [facility] #[id number], 180, cm, 12/03/19 13:50:00 EDT, Height, Dry Weight Start Date: 01/16/20 Status: Ordered buPROPion 150 mg/12 hours (SR) oral tablet, extended release 1 tablet = 150 mg, By Mouth, 2 times a day Start Date: 07/07/16 Status: Ordered clopidogrel 75 mg oral tablet 75 mg, 1, tablet, By Mouth, Daily, [facility], # 90 tablet, Refills 1, Tot. Refills 1, Soft Stop, 01/16/20 15:09:00 EDT, Route to Pharmacy Electronically, [facility] #[id number], 180, cm, 12/03/19 13:50:00 EDT, Height Start Date: 01/16/20 Status: Ordered cyclobenzaprine 5 mg oral tablet 1 tablet, By Mouth, 2 times a day, PRN NEEDED FOR MUSCLE SPASM, # 60 tablet, 0 Refills, Acute, 06/11/20 15:48:00 EST, [facility] #[id number], 180, cm, 03/04/20 8:59:00 EST, Height Start Date: 06/11/20 Status: Ordered Ditropan XL 5 mg/24 hours oral tablet, extended release 1 tablet = 5 mg, By Mouth, Daily, # 30 tablet, 0 Refills, Maintenance, 12/16/14 12:57:43 EDT Start Date: 12/16/14 Status: Ordered famotidine 20 mg oral tablet 20 mg, 1, tablet, By Mouth, 2 times a day, replaces ranitidine [facility] COTTRELL,# 180 tablet, Refills 1, Tot. Refills 1, Maintenance, 01/16/20 15:06:00 EDT, Route to Pharmacy Electronically, [facility] #[id number], 180, cm, 0... Start Date: 01/16/20 Status: Ordered Flomax 0.4 mg oral capsule 0.4 mg, 1, capsule, By Mouth, Daily, [facility] COTTRELL, # 90 capsule, Refills 1, Tot. Refills 1, Maintenance, 01/16/20 15:08:00 EDT, Route to Pharmacy Electronically, [facility] #[id number], 180, cm, 12/03/19 13:50:00 EDT, Height Start Date: 01/16/20 Status: Ordered isosorbide mononitrate 30 mg oral tablet, extended release 1 tablet, By Mouth, Daily in AM, REFAX TO [facility] PER DR COTTRELL, # 90 tablet, 1 Refills, Maintenance, 01/16/20 15:07:00 EDT, [facility] #[id number], 180, cm, 12/03/19 13:50:00 EDT, Height Start [...] patch, 5 Refills, Maintenance, 01/16/20 15:07:00 EDT, [facility] #[id number], Apply to affected area Topically Thomas... Start Date: 01/16/20 Status: Ordered metoprolol 25 mg oral tablet 25 mg, 1, tablet, By Mouth, 2 times a day, REFAX TO [facility] PER DR COTTRELL, # 180 tablet, Refills 1, Tot. Refills 1, Maintenance, 01/16/20 15:08:00 EDT, Route to Pharmacy Electronically, [facility] #[id number], 180, cm, 12/03/19 13:50:00 EDT,... Start Date: 01/16/20 Status: Ordered nitroglycerin 0.4 mg sublingual tablet 1 tablet = 0.4 mg, Sublingual, Every 5 minutes, PRN for chest pain, # 100 tablet, 0 Refills, Maintenance, 04/10/20 15:29:00 EST, Tablet, [facility] #[id number], Partial fill upon patient requestif the prescription is for a schedule II opioid lisa... Start Date: 04/10/20 Status: Ordered oxybutynin 5 mg/24 hours oral tablet, extended release 1 tablet = 5 mg, By Mouth, Daily at bedtime, # 30 tablet, 3 Refills, Maintenance, 02/13/20 23:02:00EDT, ER Tablet, [facility] #[id number], 180, cm, 12/03/19 13:50:00 EDT, Height Start Date: 02/13/20 Status: Ordered Prozac 40 mg oral capsule [...] Type Response Smoking Status Current [place] [facility] [place] entered on: 02/15/18 Sex
--- OUTSIDE RECORDS SUMMARY | 2023-12-30 12:51 | XMS_ITS | Continuity of Care Document ---
Author Organization [facility] Address [address] [facility], [address] d Floor, [address] [place] [id number]- Care Team Providers Care Nonprofit Fundraiser Name Role Phone Maria Esther URIAS, Balaji Quick Primary Care Physician Encounter [facility] [place] Date(s): 06/22/23 - 10/20/23 [facility] [address], [address] [place] [id number] Attending Physician: Reagan White MD Admitting Physician: Reagan White MD Allergies, Adverse Reactions, Alerts Substance Reaction [...] 23-valent vaccine 12/17/12 Recorded 1Result Comment: [02/15/2018] 11011-272-39 2Result Comment: [id number] 3Result Comment: [08/02/2017] [facility][NOTE 3] 52342-443-30 Medications Aspirin Low Dose 81 mg oral delayed release tablet 1 tablet, By Mouth, Daily, # 90 tablet, 3 Refills, Maintenance, 11/08/22 11:19:00 EDT, [facility] #[id number], 184, cm, 11/03/22 11:28:00 EDT, Height, 106.3, kg, 09/13/22 12:30:00 EDT, Dry Weight Start Date: 11/08/22 Status: Ordered atorvastatin 80 mg oral tablet 1 tablet = 80 mg, By Mouth, Daily, # 90 tablet, 3 Refills, Maintenance, 08/18/23 16:03:00 EDT, Tablet, [facility] #[id number], Partial fill upon patient request if the prescription is for a schedule II opioid drug., 183, cm, 08/09/23 10:49:00 EDT... Start Date: 08/18/23 Status: Ordered BuPROPion (Eqv-Wellbutrin SR) 150 mg/12 hours oral tablet, extended release 1 tablet = 150 mg, By Mouth, 2 times a day, # 180 tablet, 3 Refills, Maintenance, 10/05/21 17:37:00EDT, SR Tablet, [facility] #[id number], Partial fill upon patient request if the prescription is for a schedule II opioid drug., 182, cm, 09/10/21... Start Date: 10/05/21 Status: Ordered clopidogrel 75 mg oral tablet 1, tablet, By Mouth, Daily, # 90 tablet, Refills 3, Tot. Refills 3, Maintenance, 08/18/23 16:03:00 EDT, Route to Pharmacy Electronically, [facility] #[id number], 183, cm, 08/09/23 10:49:00 EDT, Height, 107, kg, 01/26/23 19:57:00 EDT, Dry Weight Start Date: 08/18/23 Status: Ordered FLUoxetine 40 mg oral capsule 1 capsule = 40 mg, By Mouth, Daily, # 90 capsule, 3 Refills, Maintenance, 10/05/21 17:34:00 EDT, Capsule, [facility] #[id number], Partial fill upon patient request if the prescription is for a schedule II opioid drug., 182, cm, 09/10/21 8:13:00 E... Start Date: 10/05/21 Status: Ordered fluticasone 50 mcg/inh nasal spray 1 sprays = 50 mcg, Nares, Both, 2 times a day, PRN allergies, # 16 Gm, 11 Refills, Maintenance, 08/18/23 16:05:00 EDT, [place], [facility] #[id number], Partial fill upon patient request if the [...] 11 Refills, Maintenance, 08/18/23 16:04:00 EDT, Tablet, [facility] #[id number], Partial fill upon patient request if the prescription is for a schedule II opioid dr... Start Date: 08/18/23 Status: Ordered Norvasc 2.5 mg oral tablet 2.5 mg, 1, tablet, By Mouth, Daily, # 90 tablet, Refills 3, Tot. Refills 3, Maintenance, 08/18/23 16:02:00 EDT, Route to Pharmacy Electronically, [facility] #[id number], Partial fill upon patient request if the prescription is for a schedule II o... Start Date: 08/18/23 Status: Ordered omeprazole 20 mg oral enteric coated capsule 1 capsule = 20 mg, By Mouth, Daily, # 90 capsule, 3 Refills, Maintenance, 08/18/23 16:04:00 EDT, [facility] #[id number], Partial fill upon patient request if the [...] 08/18/23 16:01:00 EDT, Route to Pharmacy Electronically, [facility] #[id number] Tablet, Partial fill upon ani... Start Date: 08/18/23 Stop Date: 08/17/24 Status: Ordered traZODone 100 mg oral tablet 200 mg, 2, tablet, By Mouth, Daily at bedtime, # 180 tablet, Refills 3, Tot. Refills 3, Maintenance, 10/05/21 17:36:00 EDT, Route to Pharmacy Electronically, [facility] #[id number], Partial fillupon patient request if the prescription [...] Team Personnel Name: Wild Woods RN Position: [facility] ED RN W/OE and Tasks Member Role: Primary Care Nurse Name: Esme Garcia RN Position: [facility] RN Member Role: Primary Care Nurse Name: Erich Dias RN Position: [facility] RN Member Role: Primary Care Nurse Name: Camila Vazquez RN Position: [facility] RN Member Role: Primary Care Nurse Name: Taylor Beck RN Position: [facility] RN Member Role: Primary Care Nurse Name: Amanda Moraes RN Position: [facility] RN Member Role: Primary Care Nurse Name: Mary Roberson RN Position: [facility] RN Member Role: Primary Care Nurse Name: Tomas Stauffer RN Position: [facility] RN Member Role: Primary Care Nurse Name: Balaji Mayo MD Position: [facility] Physician - Primary Care Member Role: PCP Address: Address: [address] [place] [id number]- [place] Care Team Related Persons Name: ROSANA NAGY Address: home [address] [place] [id number] Name: GORAN QUINTERO
--- OUTSIDE RECORDS SUMMARY | 2023-12-30 12:51 | XMS_ITS | Continuity of Care Document ---
Author Organization [facility] Kunal Aldair lt Address [address] [place] [address]- Care Team Providers Care Metal Wire Technician Name Role Phone Maria Esther URIAS, Balaji Quick Primary Care Physician Encounter [facility] [place] Date(s): 11/29/22 - 12/29/22 [facility] [address] [place] [address]- Allergies, Adverse Reactions, Alerts Substance Reaction Severity [...] pneumococcal 23-valent vaccine 12/17/12 Recorded 1Result Comment: [id number] 2Result Comment: [02/15/2018] 61254-928-07 3Result Comment: [08/02/2017] [facility] 38303-877-85 Medications amLODIPine 10 mg oral tablet 10 mg, 1, tablet, By Mouth, Daily, # 90 tablet, Refills 3, Tot. Refills 3, Maintenance, 10/26/22 13:35:00 EDT, Route to Pharmacy Electronically, [facility] #[id number], Partial fill upon patientrequest if the prescription is for a schedule II op... Start Date: 10/26/22 Status: Ordered Aspirin Low Dose 81 mg oral delayed release tablet 1 tablet, By Mouth, Daily, # 90 tablet, 3 Refills, Maintenance, 11/08/22 11:19:00 EDT, [facility] #[id number], 184, cm, 11/03/22 11:28:00 EDT, Height, 106.3, kg, 09/13/22 12:30:00 EDT, Dry Weight Start Date: 11/08/22 Status: Ordered atorvastatin 80 mg oral tablet 1 tablet = 80 mg, By Mouth, Daily, # 90 tablet, 3 Refills, Maintenance, 12/05/22 4:30:00 EDT, Tablet, [facility] #[id number], Partial fill upon patient request if the prescription is for a schedule II opioid drug., 183, cm, 11/10/22 17:28:00 EDT,... Start Date: 12/05/22 Status: Ordered BuPROPion (Eqv-Wellbutrin SR) 150 mg/12 hours oral tablet, extended release 1 tablet = 150 mg, By Mouth, 2 times a day, # 180 tablet, 3 Refills, Maintenance, 10/05/21 17:37:00EDT, SR Tablet, [facility] #[id number], Partial fill upon patient request if the prescription is for a schedule II opioid drug., 182, cm, 09/10/21... Start Date: 10/05/21 Status: Ordered clopidogrel 75 mg oral tablet 1, tablet, By Mouth, Daily, # 90 tablet, Refills 0, Maintenance, 10/07/22 6:36:00 EDT, Route to Pharmacy Electronically, [facility] #[id number], 184, cm, 09/28/22 9:02:00 EDT, Height, 106.3, kg,09/13/22 12:30:00 EDT, Dry Weight Start Date: 10/07/22 Status: Ordered Flonase 50 mcg/inh nasal spray 1 sprays = 50 mcg, Nares, Both, 2 times a day, # 16 Gm, 5 Refills, Maintenance, 09/15/22 8:26:00 EDT, Nasal [place], [facility] #[id number], Partial fill upon patient request if the [...] 3 Refills, Maintenance, 10/05/21 17:34:00 EDT, Capsule, [facility] #[id number], Partial fill upon patient request if the prescription is for a schedule II opioid drug., 182, cm, 09/10/21 8:13:00 E... Start Date: 10/05/21 Status: Ordered isosorbide mononitrate 30 mg oral tablet, extended release 1 tablet, By Mouth, Daily in AM, # 90 tablet, 3 Refills, Maintenance, 10/20/22 16:40:00 EDT, [facility] #[id number], 184, cm, 09/28/22 9:02:00 EDT, Height, 106.3, [...] tablet, 5 Refills, Maintenance, 09/18/22 18:55:00 EDT, [facility] #[id number], 184, cm, 09/15/22 9:12:00 EDT, Height, 106.3, kg, 09/13/22 12:30:00 EDT, Dry Weight Start Date: 09/18/22 Status: Ordered Nitrostat 0.4 mg sublingual tablet 1 tablet = 0.4 mg, Sublingual, Every 5 minutes, PRN Chest Pain, prn, # 30 tablet, 11 Refills, Maintenance, 11/30/22 6:36:00 EDT, Tablet, [facility] #[id number], Partial fill upon patient requestif the prescription is for a schedule II opioid lisa... Start Date: 11/30/22 Status: Ordered omeprazole 20 mg oral enteric coated capsule 1 capsule = 20 mg, By Mouth, Daily, # 30 capsule, 1 Refills, Maintenance, 09/28/22 9:21:00 EDT, [facility] #[id number], Partial fill upon patient request if the [...] 10/05/21 17:36:00 EDT, Route to Pharmacy Electronically, [facility] #[id number], Partial fillupon patient request if the prescription [...] Team Personnel Name: Wild Woods RN Position: [facility] ED RN W/OE and Tasks Member Role: Primary Care Nurse Name: Erich Dias RN Position: [facility] RN Member Role: Primary Care Nurse Name: Camila Vazquez RN Position: S RN Member Role: Primary Care Nurse Name: Taylor Beck RN Position: [facility] RN Member Role: Primary Care Nurse Name: Amanda Garibay RN Position: [facility] RN Member Role: Primary Care Nurse Name: Mary Roberson RN Position: [facility] RN Member Role: Primary Care Nurse Name: Tomas Stauffer RN Position: [facility] RN Member Role: Primary Care Nurse Name: Balaji Mayo MD Position: [facility] Physician - Primary Care Member Role: PCP Address: Address: [address] [place] [id number]- Name: Fadumo Conti RN Position: [facility] RN Member Role: Primary Care Nurse Care Team Related Persons Name: ROSANA NAGY Address: home [address] [place] [id number] Name: GORAN QUINTERO
--- OUTSIDE RECORDS SUMMARY | 2023-12-30 12:51 | XMS_ITS | Continuity of Care Document ---
Author Organization [facility] Rico Syed Aldair lt Address [address] [place] [address]- Care Team Providers Care Telephone Exchange Operator Name Role Phone Maria Esther URIAS, Balaji Quick Primary Care Physician [phone] [place] [facility] [place]/22 [facility] Rico Syed Adult [address] [place] [address]- Encounter Diagnosis HTN (hypertension)(Discharge Diagnosis) - 05/16/22 Hyperlipidemia(Discharge Diagnosis) - 05/16/22 Attending Physician: Andre VIRTUAL OFFICE ASSISTANT, Michelle Garcia Allergies, Adverse Reactions, Alerts Substance Reaction Severity Status Claritin Active Clozaril Active Benadryl Active Nuts Active Abilify Active Nicotine Patch Active Vistaril Active Immunizations Given and Recorded Vaccine Date Status Refusal Reason pneumococcal 20-valent conjugate vaccine 1 12/20/21 Given influenza virus vaccine, inactivated 02/17/21 Hakeem rded influenza virus vaccine, inactivated 03/04/20 Give n influenza virus vaccine, inactivated 01/29/19 Give n influenza virus vaccine, inactivated 2 02/15/18 Gi juan SARS-CoV-2 (COVID-19) mRNA BNT-162b2 vac 02/17/21 Recorded SARS-CoV-2 (COVID-19) mRNA BNT-162b2 vac 07/09/20 Recorded SARS-CoV-2 (COVID-19) mRNA BNT-162b2 vac 06/18/20 Recorded tetanus/diphtheria/pertussis, acel(Tdap) 3 08/02/17 Given pneumococcal 23-valent vaccine 05/03/17 Recorded pneumococcal 23-valent vaccine 12/17/12 Recorded 1Result Comment: [id number] 2Result Comment: [02/15/2018] 22946-714-11 3Result Comment: [08/02/2017] [facility] 51795-788-68 Medications aspirin 81 mg oral delayed release tablet = 81 mg, By Mouth, Daily, # 90 tablet, 3 Refills, Maintenance, 10/05/21 17:34:00 EDT, EC Tablet, [email or web address] #[id number], Partial fill upon patient request if the prescription is for a schedule II opioid drug., 182, cm, 09/10/21 8:13:00 EDT, Heigh... Start Date: 10/05/21 Status: Ordered atorvastatin 80 mg oral tablet 1 tablet = 80 mg, By Mouth, Daily, # 90 tablet, 3 Refills, Maintenance, 10/05/21 17:34:00 EDT, Tablet, [email or web address] #[id number], Partial fill upon patient request if the prescription is for a schedule II opioid drug., 182, cm, 09/10/21 8:13:00 EDT,... Start Date: 10/05/21 Status: Ordered BuPROPion (Eqv-Wellbutrin SR) 150 mg/12 hours oral tablet, extended release 1 tablet = 150 mg, By Mouth, 2 times a day, # 180 tablet, 3 Refills, Maintenance, 10/05/21 17:37:00EDT, SR Tablet, [facility] #[id number], Partial fill upon patient request if the prescription is for a schedule II opioid drug., 182, cm, 09/10/21... Start Date: 10/05/21 Status: Ordered clopidogrel 75 mg oral tablet 1, tablet, By Mouth, Daily, # 90 tablet, Refills 3, Tot. Refills 3, Maintenance, 10/05/21 17:34:00 EDT, Route to Pharmacy Electronically, [facility] #[id number], 182, cm, 09/10/21 8:13:00 EDT, Height, 102.7, kg, 09/08/21 16:41:00 EDT, Dry Weight Start Date: 10/05/21 Status: Ordered Flonase 50 mcg/inh nasal spray 1 sprays = 50 mcg, Nares, Both, 2 times a day, # 16 Gm, 5 Refills, Maintenance, 09/29/20 16:49:00 EDT, Nasal [place], [email or web address] #[id number], Partial fill upon patient request if the prescription is for a schedule II opioid drug., 1 sprays Scottie BJordin.. Start Date: 09/29/20 Status: Ordered FLUoxetine 40 mg oral capsule 1 capsule = 40 mg, By Mouth, Daily, # 90 capsule, 3 Refills, Maintenance, 10/05/21 17:34:00 EDT, Capsule, [email or web address] #[id number], Partial fill upon patient request if the prescription is for a schedule II opioid drug., 182, cm, 09/10/21 8:13:00 E... Start Date: 10/05/21 Status: Ordered isosorbide mononitrate 30 mg oral tablet, extended release 1 tablet = 30 mg, By Mouth, Daily in AM, # 90 tablet, 3 Refills, 10/05/21 17:35:00 EDT, [email or web address] #[id number], 182, cm, 09/10/21 8:13:00 EDT, Height, 102.7, kg, 09/08/21 16:41:00 EDT, Dry Weight Start Date: 10/05/21 Status: Ordered lamotrigine 25 mg oral tablet 100 mg, 4, tablet, By Mouth, 2 times a day, # 720 tablet, Refills 3, Tot. Refills 3, Maintenance, 10/06/21 14:57:00 EDT, Route to Pharmacy Electronically, [email or web address] #[id number], Partial fill upon patient request if the prescription is for a sche... Start Date: 10/06/21 Stop Date: 10/01/22 Status: Ordered lidocaine 5% topical film 1 patch, Topically, Daily, PRN Pain , Mild, remove after 12 hours, # 30 patch, 11 Refills, Maintenance, 02/20/21 7:32:00 EDT, Patch, [facility], Partial fill upon patient request if the prescription is for a schedule II opioid drug., 1 patch T... Start Date: 02/20/21 Status: Ordered metoprolol 25 mg oral tablet 25 mg, 1, tablet, By Mouth, 2 times a day, increase in dose, # 60 tablet, Refills 5, Tot. Refills 5, Maintenance, 04/28/22 7:37:00 EST, Route to Pharmacy Electronically, [facility], Partial fill upon patient request if the prescription is for... Start Date: 04/28/22 Status: Ordered traZODone 100 mg oral tablet 200 mg, 2, tablet, By Mouth, Daily at bedtime, # 180 tablet, Refills 3, Tot. Refills 3, Maintenance, 10/05/21 17:36:00 EDT, Route to Pharmacy Electronically, [facility] #[id number], Partial fillupon patient request if the prescription [...] by duplex 4repeat screening colonoscopy in 2021 Diagnosis Diagnosis Type Effective Dates Health Status Clinical Service Informant HTN (hypertension) Discharge Diagnosis 05/16/22 Hyperlipidemia Discharge Diagnosis 05/16/22 Vital Signs Most recent to oldest [Reference Range]: 1 Height 182 cm (05/12/22 11:04 AM) Weight 108.9 kg (05/12/22 11:04 AM) Oxygen Saturation [94-100 %] 99 % (05/12/22 11:04 AM) Pulse Rate [55-90 bpm] 60 bpm (05/12/22 11:04 AM) Body Mass Index [18.5-24.99 kg/m2] 32.88 kg/m2 *>HHI* (05/12/22 11:04 AM) Blood Pressure [90-138/55-84 mm Hg] 128/ 72mm Hg (05/12/22 11:04 AM) Blood pressure sites Arm, right (05/12/22 11:04 AM) Weight Obtained Via Standing scale (05/12/22 11:04 AM) Social History Social History Type Response Smoking Status Current some day smo kayla entered on: 02/15/18 Sex Note * Kiki Corea: PERFORM, SIGN, VERIFY Event Display: Patient Education/Instruction Authored Date: [id number] [facility] *BMP So [place] Clinical Summary Name ALIYA NAGY Age 66 Years 1955 PCP Balaji Mayo MD PCP Visit Date 05/12/2022 11:02:00 Additional Instructions: Scheduled Appointments?? Future Appointments ?*BMP??So[facility] [address] ?Phone:??--?Fax:??-- ?Appt. Date:??07/22/2022?9:50 AM ?Scheduled Provider:??Balaji Mayo MD ?*[facility] ?Phone:??--?Fax:??-- ?Appt. Date:??07/27/2022?9:30 AM ?Scheduled Provider:??Ultrasound [facility] ?*[facility] ?Phone:??--?Fax:??-- ?Appt. Date:??07/27/2022?10:00 AM ?Scheduled Provider:??Ultrasound Room 2 [facility] ?*[facility],??[address] ?Phone:??--?Fax:??-- ?Appt. Date:??08/03/2022?1:00 PM ?Scheduled Provider:??Adriana URIAS, Daniel Cruz Follow-Up Instructions ?? Diagnosis Medications: Please continue your medications until treatment is completed or stopped by your provider. Discuss any questions related to medications with your provider. Medications to Continue with No Changes These medications were not printed or sent to your pharmacy Aspirin (aspirin 81 mg oral delayed release tablet) 81 Milligram Oral Daily. Refills: 3. Next Dose: Atorvastatin [...] twice a day. Refills: 5. Next Dose: Isosorbide Mononitrate (isosorbide mononitrate 30 mg oral tablet, extended release) 1 tab(s) Oral Daily in the morning. Refills: 3. Next Dose: Lamotrigine (lamotrigine 25 mg oral tablet) 4 tab(s) Oral twice a day for 90 Days. Refills: 3. Next Dose: Lidocaine Topical (lidocaine 5% topical film) 1 patch(es) Topically Daily as needed Pain , Mild. remove after 12 hours. Refills: 11. Next Dose: Metoprolol (metoprolol 25 mg oral tablet) 1 tab(s) Oral twice a day. increase in dose. Refills: 5. Next Dose: Miscellaneous Rx (FPC VISIT FREQUENCY) PLEASE INCREASE FPC VISITS TO TWICE A DAY FOR MEDICATION MANAGEMENT AND ADMINISTRATION.. Refills: 0. Next Dose: Quetiapine (QUEtiapine 400 mg oral tablet, extended release) 1 tab(s) Oral Daily in PM. Refills: 0. Next Dose: Trazodone (traZODone 100 mg oral tablet) 2 tab(s) Oral Daily at Bedtime. Refills: 3. Next Dose: Allergy Info:?? Nicotine Patch; Abilify; Nuts; Vistaril; Benadryl; Clozaril; Claritin Medications Given This Visit Future Orders ?No future orders Vital Signs Height 182 cm Weight 108.9 kg BMI 32.88 kg/m2 Blood Pressure 128 mm Hg/72 mm Hg Temperature Pulse Rate 60 bpm Respiratory Rate 02 Sat Mode of Delivery 99 %/ You can now view a summary of your hospital visit from the comfort of your home through a free online portal called [facility]. [employer] is a website that allows you to securely view your medical information including discharge summary, medications and follow-up visits. ??You can alsosend a secure electronic message to your doctor???s office to request appointments, renew medications or just ask a question. You can enroll at [email or web address] or register during your next office visit. [...] primary care provider, you may find a Critical Access Hospital provider by calling [facility] at [phone]. For information about the plan of care [...] Balaji Mayo MD Position: [facility] Primary Care Physician Member Role: PCP Address: Address: [address] [place] [address]- Name: Pattie Oates RN Position: [facility] RN Member Role: Primary Care Nurse Care Team Related Persons Name: ROSANA NAGY Address: [address] [address] Name: GORAN QUINTERO
--- OUTSIDE RECORDS SUMMARY | 2023-12-30 12:51 | XMS_ITS | Continuity of Care Document ---
Author Organization [facility] ter Address [address] [place] [id number]- Care Team Providers Care Claims Technician Name Role Phone Maria Esther URIAS, Balaji Quick Primary Care Physician [place] [facility] [place]10/[address] [address] Discharge Disposition: A-Transfer [facility] Attending Physician: Leroy Schmid MD Admitting Physician: Luis Davis DO Referring Physician: Not on Staff, Referring MD Allergies, Adverse Reactions, Alerts Substance Reaction Severity Status Claritin Active Clozaril Active Benadryl Active Nuts Active Nicotine Patch Active Abilify Active Vistaril Active Immunizations Given and Recorded [...] 23-valent vaccine 12/17/12 Recorded 1Result Comment: [02/15/2018] 51214-905-65 2Result Comment: [08/02/2017] [facility] 52580-363-90 Medications aspirin 81 mg oral delayed release tablet = 81 mg, By Mouth, Daily, # 90 tablet, 3 Refills, Maintenance, 02/18/21 9:19:00 EDT, EC Tablet, [facility], Partial fill upon patient request if the prescription is for a schedule II opioid drug., 180, cm, 01/26/21 13:02:00 EDT, Height Start Date: 02/18/21 Status: Ordered atorvastatin 80 mg oral tablet 1 tablet = 80 mg, By Mouth, Daily, # 90 tablet, 3 Refills, Maintenance, 03/25/21 16:47:00 EST, Tablet, [facility] #[id number], Partial fill upon patient request if the prescription is for a schedule II opioid drug., 180, cm, 02/19/21 13:36:00 EDT... Start Date: 03/25/21 Status: Ordered Augmentin 875 mg-125 mg oral tablet 1 tablet, By Mouth, Every 12 hours, for 5 days, # 10 tablet, 0 Refills, Acute 09/15/21 9:16:00 EDT,09/10/21 9:16:00 EDT, Tablet, Partial fill upon patient request if the prescription is for a schedule II opioid drug. Start Date: 09/10/21 Stop Date: 09/15/21 Status: Ordered BuPROPion (Eqv-Wellbutrin SR) 150 mg/12 [...] 03/25/21 16:47:00 EST, Route to Pharmacy Electronically, [facility] #[id number], 180, cm, 02/19/21 13:36:00 EDT, Height Start [...] 5 Refills, Maintenance, 09/29/20 16:49:00 EDT, Nasal [place], [facility] #[id number], Partial fill upon patient request if the [...] tablet, By Mouth, Daily in AM, # 28 tablet, 2 [facility]ills[facility], [facility], cm, 02/19/21 13:36:00 EDT, Height Start Date: 06/30/21 Status: Ordered Knee Support See Instructions, # [...] 11 Refills, Maintenance, 02/20/21 7:32:00 EDT, Patch, [facility], Partial fill upon patient request if the prescription is for a schedule II opioid drug., 1 patch T... Start Date: 02/20/21 Status: Ordered metoprolol 25 mg oral tablet 12.5 mg, 0.5, tablet, By Mouth, 2 times a day, Refills 0, Maintenance, 09/10/21 9:38:00 EDT, Partial fill upon patient request if the prescription is for a schedule II opioid drug. Start Date: 09/10/21 Status: Ordered Metoprolol IR Tablet 12.5 mg, Tablet, By Mouth, Hold for: for heart rate less than 55., 09/09/21 21:00:00 EDT Start Date: 09/09/21 Stop Date: 09/09/21 Status: Completed Metoprolol IR Tablet 12.5 mg, Tablet, By Mouth, Hold for: for heart rate less than 55., 09/10/21 9:00:00 EDT Start Date: 09/10/21 Stop Date: 09/10/21 Status: Completed oseltamivir 75 mg oral capsule 1 capsule = 75 mg, By Mouth, Daily, for 2 days, # 2 capsule, 0 Refills, Acute 09/12/21 9:16:00 EDT,09/10/21 9:16:00 EDT, Capsule, Partial fill upon patient request if the prescription is for a schedule II opioid drug. Start Date: 09/10/21 Stop Date: 09/12/21 Status: Ordered QUEtiapine 400 mg oral tablet, [...] by duplex 3repeat screening colonoscopy in 2021 Results Orders for Microbiology Reports Name Date Sputum Culture w/ Gram Smear 09/06/21 Microbiology Reports TEST:Sputum Culture STATUS:Auth (Verified) BODY SITE: SOURCE:EXPECT COLLECTED DATE/TIME:09/06/21 7:47 PM Sputum Culture SPECIMEN DESCRIPTION : EXPECTORATED SPUTUM SPECIAL REQUESTS : NONE GRAM STAIN : 2+ POLYMORPHONUCLEAR LEUKOCYTES 1+ SQ.EPITHELIAL CELLS 1+ GRAM POSITIVE COCCI 1+ GRAM NEGATIVE RODS 1+ GRAM NEGATIVE DIPLOCOCCI CULTURE : 4+ NORMAL DORIS REPORT STATUS : FINAL 09/09/2021 Radiology Reports * Exam Date Time Procedure Performing Provider Status 09/06/21 12:54 PM Knee 1 or 2 Views Right Rebecca Ortiz; Auth (Verified) Notes: (Knee 1 or 2 Views Right) Reason For Exam: with Pain;Trauma RESULT: Knee 1 or 2 Views Right Knee 1 or 2 Views Right, 2 views HX OF PRESENT ILLNESS: had unwitnessed fall out of bed last night was on the floor over night, was able to call 911 this morning. co back and hip pain. has had two falls, also fell on sat without evaluation. +head strike , ? on plavix; Reason: Trauma; with Pain; Clinical Question(s): Fracture COMPARISON: None. FINDINGS: There is no evidence of acute or healing fracture, dislocation or bone lesion. No arthritic changes. No osteochondral defects or intra-articular loose bodies. No evidence of joint effusion. Mild vascular calcifications. IMPRESSION: No evidence of acute osseous abnormality. WSN: [id number] Ordering Physician: Lucinda Grijalva Dictated By: Anthony Nye MD Dictated Date/Time: 09/06/21 1:40 pm Reviewed By: Anthony Nye MD Signed By: Anthony Nye MD Signed Date/Time: 09/06/21 1:40 pm Transcribed By: JOSEPH Transcribed Date/Time: 09/06/21 1:39 pm * Exam Date Time Procedure Performing Provider Status 09/06/21 12:54 PM Foot Min 3 Views Left Cameron Ortiz; Marielle (Verified) Notes: (Foot Min 3 Views Left) Reason For Exam: with Pain;Trauma RESULT: Foot Min 3 Views Left Foot Min 3 Views Left, 3 views INDICATION: Unwitnessed fall. COMPARISON: None. FINDINGS: No fractures or bone lesions. Moderate plantar calcaneal spurring. Moderate Achilles enthesopathy. Mild subchondral sclerosis at the subtalar joint. Unremarkable soft tissues. IMPRESSION: No evidence of acute osseous abnormality. I have personally reviewed the images and I agree with this report. WSN: [id number] Ordering Physician: Lucinda Grijalva Dictated By: Ritesh[Radiology] Vikram URIAS Dictated Date/Time: 09/06/21 1:50 pm Reviewed By: Anthony Nye MD Signed By: Anthony Nye MD Signed Date/Time: 09/06/21 1:55 pm Transcribed By: JOSEPH Transcribed Date/Time: 09/06/21 1:42 pm Vital Signs Most recent to oldest [Reference Range]: 1 2 3 Height 182 cm (09/10/21 8:13 AM) 182 cm (09/10/21 1:05 AM) 182 cm (09/09/21 9:08 PM) Weight 102.7 kg (09/08/21 4:32 PM) Oxygen Saturation [94-100 %] 100 % (09/10/21 8:13 AM) 98 % (09/09/21 8:00 AM) 96 % (09/09/21 1:05 AM) Pulse Rate [55-90 bpm] 54 bpm *L* (09/10/21 9:20 AM) 54 bpm *L* (09/10/21 8:13 AM) 71 bpm (09/09/21 9:35 PM) Body Mass Index [18.5-24.99] 31 *>HHI* (09/08/21 4:32 PM) Blood Pressure [90-138/55-84 mm Hg] 152/74mm Hg *H* (09/10/21 9:20 AM) 152/74mm Hg *H* (09/10/21 8:13 AM) 115/56mm Hg (09/09/21 9:35 PM) Respiratory Rate [16-30 br/min] 18 br/min (09/10/21 8:13 AM) 17 br/min (09/09/21 8:00 AM) 16 br/min (09/09/21 1:05 AM) Temperature [96.8-100.4 DegF] 97.8 DegF (09/10/21 8:13 AM) 98.5 DegF (09/09/21 8:00 AM) 97.8 DegF (09/09/21 1:05 AM) Liters per Minute 3 L/min (09/06/21 8:19 AM) Mode of Delivery (Oxygen) Room air (09/10/21 8:13 AM) Room air (09/09/21 8:00 AM) Room air (09/09/21 1:05 AM) Blood pressure sites Arm, right (09/10/21 8:13 AM) Arm, right (09/09/21 8:00 AM) Arm, right (09/09/21 1:05 AM) Temperature Route Oral (09/10/21 8:13 AM) Oral (09/09/21 8:00 AM) Oral (09/09/21 1:05 AM) Dry Weight 102.7 kg (09/08/21 4:32 PM) Weight Obtained Via Bed scale (09/08/21 4:32 PM) Dry Weight Obtained Via Bed scale (09/08/21 4:32 PM) Social History Social History Type Response Smoking Status Current some day smo ker entered on: 02/15/18 Sex
--- OUTSIDE RECORDS SUMMARY | 2023-12-30 12:51 | XMS_ITS | Continuity of Care Document ---
Author Organization [facility] Kunal Aldair lt Address [address] [place] [address]- Care Team Providers Care Cat Operator Name Role Phone Balaji Mayo MD Primary Care Physician [phone] [place] [facility] [place] [facility] Adult [address] [place] [address]- Attending Physician: Balaji Mayo MD Allergies, Adverse [...] 23-valent vaccine 12/17/12 Recorded 1Result Comment: [02/15/2018] 86102-270-03 2Result Comment: [08/02/2017] [facility] 43094-084-90 Medications aspirin 81 mg oral delayed release tablet = 81 mg, By Mouth, Daily, # 90 tablet, 3 Refills, Maintenance, 10/05/21 17:34:00 EDT, EC Tablet, [facility] #[id number], Partial fill upon patient request if the prescription is for a schedule II opioid drug., 182, cm, 09/10/21 8:13:00 EDT, Heigh... Start Date: 10/05/21 Status: Ordered atorvastatin 80 mg oral tablet 1 tablet = 80 mg, By Mouth, Daily, # 90 tablet, 3 Refills, Maintenance, 10/05/21 17:34:00 EDT, Tablet, [facility] #[id number], Partial fill upon patient request if the prescription is for a schedule II opioid drug., 182, cm, 09/10/21 8:13:00 EDT,... Start Date: 10/05/21 Status: Ordered BuPROPion (Eqv-Wellbutrin SR) 150 mg/12 hours oral tablet, extended release 1 tablet = 150 mg, By Mouth, 2 times a day, # 180 tablet, 3 Refills, Maintenance, 10/05/21 17:37:00EDT, SR Tablet, [facility] #[id number], Partial fill upon patient request if the prescription is for a schedule II opioid drug., 182, cm, 09/10/21... Start Date: 10/05/21 Status: Ordered clopidogrel 75 mg oral tablet 1, tablet, By Mouth, Daily, # 90 tablet, Refills 3, Tot. Refills 3, Maintenance, 10/05/21 17:34:00 EDT, Route to Pharmacy Electronically, [facility] #[id number], 182, cm, 09/10/21 8:13:00 EDT, Height, 102.7, kg, 09/08/21 16:41:00 EDT, Dry Weight Start Date: 10/05/21 Status: Ordered Docusate/Senna Tablet 1 tablet, By Mouth, 2 times a day, PRN Constipation, 0 Refills, Maintenance, 09/10/21 9:15:00 EDT, Tablet, Partial fill upon patient request if the prescription is for a schedule II opioid drug. Start Date: 09/10/21 Status: Ordered Flonase 50 mcg/inh nasal spray 1 sprays = 50 mcg, Nares, Both, 2 times a day, # 16 Gm, 5 Refills, Maintenance, 09/29/20 16:49:00 EDT, Nasal [place], [facility] #[id number], Partial fill upon patient request if the prescription is for a schedule II opioid drug., 1 sprays Nares, B... Start Date: 09/29/20 Status: Ordered FLUoxetine 40 mg oral capsule 1 capsule = 40 mg, By Mouth, Daily, # 90 capsule, 3 Refills, Maintenance, 10/05/21 17:34:00 EDT, Capsule, [facility] #[id number], Partial fill upon patient request if the prescription is for a schedule II opioid drug., 182, cm, 09/10/21 8:13:00 E... Start Date: 10/05/21 Status: Ordered Hinged left knee brace Hinged [...] 90 tablet, 3 Refills, 10/05/21 17:35:00 EDT, [facility] #[id number], 182, cm, 09/10/21 8:13:00 EDT, Height, 102.7, kg, 09/08/21 16:41:00 EDT, Dry Weight Start Date: 10/05/21 Status: Ordered Knee Support See Instructions, # 1 each, Maintenance, Hinged knee brace, left knee, 02/08/21 6:40:00 EDT, Supply Start Date: 02/08/21 Status: Ordered lamotrigine 25 mg oral tablet 100 mg, 4, tablet, By Mouth, 2 times a day, # 720 tablet, Refills 3, Tot. Refills 3, Maintenance, 10/06/21 14:57:00 EDT, Route to Pharmacy Electronically, [facility] #[id number], Partial fill upon patient request if the prescription is for a sche... Start Date: 10/06/21 Stop Date: 10/01/22 Status: Ordered lidocaine 5% topical film 1 patch, Topically, Daily, PRN Pain , Mild, remove after 12 hours, # 30 patch, 11 Refills, Maintenance, 02/20/21 7:32:00 EDT, Patch, [facility], Partial fill upon patient request if the prescription is for a schedule II opioid drug., 1 patch T... Start Date: 02/20/21 Status: Ordered metoprolol 25 mg oral tablet 12.5 mg, 0.5, tablet, By Mouth, 2 times a day, # 90 tablet, Refills 3, Tot. Refills 3, Maintenance,10/05/21 17:40:00 EDT, Route to Pharmacy Electronically, [facility] #[id number], Partial fill upon patient request if the prescription is for a sc... Start Date: 10/05/21 Status: Ordered QUEtiapine 400 mg oral tablet, extended release 400 mg, 1, tablet, By Mouth, Daily in PM, # 90 tablet, Refills 1, Tot. Refills 1, Maintenance, 10/05/21 17:36:00 EDT, Route to Pharmacy Electronically, [facility] #[id number], Partial fill upon patient request if the prescription is for a schedul... Start Date: 10/05/21 Status: Ordered DETENTION VISIT FREQUENCY DETENTION VISIT FREQUENCY, See Instructions, # 1 each, Refills 0, Tot. Refills 0, Maintenance, PLEASE INCREASE DETENTION VISITS TO TWICE A DAY FOR MEDICATION MANAGEMENT AND ADMINISTRATION., 10/06/21 15:08:00 EDT, Supply Start Date: 10/06/21 Status: Ordered traZODone 100 mg oral tablet 200 mg, 2, tablet, By Mouth, Daily at bedtime, # 180 tablet, Refills 3, Tot. Refills 3, Maintenance, 10/05/21 17:36:00 EDT, Route to Pharmacy Electronically, [facility] #[id number], Partial fillupon patient request if the prescription is for a s... Start Date: 10/05/21 Status: Ordered Problem List Condition Effective Dates Status Health Status Inform ant AAA (abdominal aortic aneurysm)(Confirmed) Active Bipolar disorder(Confirmed) Active BPH (benign prostatic hyperplasia)(Confirmed) Active Carotid artery stenosis(Confirmed) Active Chest pain(Confirmed) Active CKD (chronic kidney disease) stage 3, GFR 30-59 ml/min(Confirmed) Active Coronary arteriosclerosis(Confirmed) 1 Active COVID-19(Confirmed) 2 10/28/21 Active Essential hypertension(Confirmed) Active Gastroesophageal reflux disease(Confirmed) Active Hyperglycemia(Confirmed) Active Hyperlipidemia(Confirmed) Active HTN (hypertension)(Confirmed) Active Influenza A(Confirmed) Active Pulmonary nodule(Confirmed) Active 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
--- OUTSIDE RECORDS SUMMARY | 2023-12-30 12:51 | XMS_ITS | Continuity of Care Document ---
Author Organization [facility] Address [address] [place] [address]- Care Team Providers Care Fireproof Door Maker Name Role Phone Maria Esther URIAS, Balaji Quick Primary Care Physician [phone] Encounter [facility] [place] Date(s): 04/02/20 - 05/02/20 [facility] [address] [place], [place] [address] Allergies, Adverse Reactions, Alerts Substance Reaction Severity Status Claritin Active Clozaril Active Benadryl Active Vistaril Active Nuts Active Abilify Active Nicotine Patch Active Immunizations Given and Recorded Vaccine Date Status Refusal Reason influenza virus vaccine, inactivated 03/04/20 Give n influenza virus vaccine, inactivated 01/29/19 Give n influenza virus vaccine, inactivated 1 02/15/18 Gi juan tetanus/diphtheria/pertussis, acel(Tdap) 2 08/02/17 Given 1Result Comment: [02/15/2018] 64950-343-91 2Result Comment: [08/02/2017] [facility] 63827-962-28 Medications amLODIPine 5 mg oral tablet 5 mg, 1, tablet, By Mouth, Daily, [facility], # 90 tablet, Refills 3, Tot.Refills 3, Maintenance, 01/16/20 15:03:00 EDT, Route to Pharmacy Electronically, [facility] #[id number], 180, cm, 12/03/19 13:50:00 EDT, Height Start Date: 01/16/20 Status: Ordered Aspirin Tablet 81 mg, By Mouth, Daily, Maintenance, 04/15/13 17:02:08 Start Date: 04/15/13 Status: Ordered atorvastatin 80 mg oral tablet 1 tablet = 80 mg, By Mouth, Daily in AM, [facility], # 90 tablet, 1 Refills, Maintenance, 01/16/20 15:04:00 EDT, Tablet, [facility] #[id number], 180, cm, 12/03/19 13:50:00 EDT, Height, Dry [...] 01/16/20 15:09:00 EDT, Route to Pharmacy Electronically, [facility] #[id number], 180, cm, 12/03/19 13:50:00 EDT, Height Start Date: 01/16/20 Status: Ordered cyclobenzaprine 5 mg oral tablet 1 tablet = 5 mg, By Mouth, 2 times a day, PRN as needed for muscle spasm, REFAX TO [facility] PER BRENNAN, # 60 tablet, 2 Refills, Maintenance, 01/16/20 15:05:00 EDT, Tablet, [facility]#[id number], 180, cm, 12/03/19 13:50:00 EDT, Height, Dry... [...] 01/16/20 15:06:00 EDT, Route to Pharmacy Electronically, [facility] #[id number], 180, cm, 0... Start Date: 01/16/20 Status: Ordered Flomax 0.4 mg oral capsule 0.4 mg, 1, capsule, By Mouth, Daily, REFAX TO [facility] PER DR COTTRELL, # 90 capsule, Refills 1, Tot. Refills 1, Maintenance, 01/16/20 15:08:00 EDT, Route to Pharmacy Electronically, [facility] #[id number], 180, cm, 12/03/19 13:50:00 EDT, Height Start Date: 01/16/20 Status: Ordered isosorbide mononitrate 30 mg oral tablet, extended release 1 tablet, By Mouth, Daily in AM, [facility], # 90 tablet, 1 Refills, Maintenance, 01/16/20 15:07:00 EDT, [facility] #[id number], 180, cm, 12/03/19 13:50:00 EDT, Height Start Date: 01/16/20 Status: Ordered Lamictal 100 mg oral tablet 1 tablet = 100 mg, By Mouth, 2 times a day, 0 Refills, Maintenance, 12/16/14 12:57:08 Start Date: 12/16/14 Status: Ordered Lidoderm 5% film See Instructions, Apply to affected area Topically Daily remove patches after 12 hours [facility]OTT[facility]LL, # 30 patch, 5 Refills, Maintenance, 01/16/20 15:07:00 EDT, [facility] #[id number], Apply to affected area Topically Thomas... Start Date: 01/16/20 Status: Ordered metoprolol 25 mg oral tablet 25 mg, 1, tablet, By Mouth, 2 times a day, REFAX TO [facility] PER DR COTTRELL, # 180 tablet, Refills 1, Tot. Refills 1, Maintenance, 01/16/20 15:08:00 EDT, Route to Pharmacy Electronically, [facility] #[id number], 180, cm, 12/03/19 13:50:00 EDT,... Start Date: 01/16/20 Status: Ordered nitroglycerin 0.4 mg sublingual tablet 1 tablet = 0.4 mg, Sublingual, Every 5 minutes, PRN for chest pain, # 100 tablet, 0 Refills, Maintenance, 12/18/20 15:29:00 EST, Tablet, [facility] #[id number], Partial fill upon patient requestif the prescription is for a schedule II opioid lisa... Start Date: 04/10/20 Status: Ordered oxybutynin 5 mg/24 hours oral tablet, extended release 1 tablet = 5 mg, By Mouth, Daily at bedtime, # 30 tablet, 3 Refills, Maintenance, 02/13/20 23:02:00EDT, ER Tablet, [facility] #[id number], 180, cm, 12/03/19 13:50:00 EDT, Height Start [...]
--- OUTSIDE RECORDS SUMMARY | 2023-12-30 12:51 | XMS_ITS | Continuity of Care Document ---
Author Organization [facility] Kunal Aldair Address [address] [place] [address]- Care Team Providers Care Millroom Supervisor Name Role Phone Balaji Mayo MD Primary Care Physician [phone] Encounter [facility] [place] Date(s): 09/29/20 - 10/06/20 [facility] Adult [address] [place] [address]- Attending Physician: Balaji Mayo MD Allergies, Adverse [...] acel(Tdap) 2 08/02/17 Given 1Result Comment: [02/15/2018] [id number] 2Result Comment: [08/02/2017] [facility] 58502-463-51 Medications amLODIPine 5 mg oral tablet 2.5 [...] 09/14/20 12:44:00 EDT, Route to Pharmacy Electronically, [facility] #[id number], 180, cm, 09/07/20 10:33:00 EDT, Height Start Date: 09/14/20 Status: Ordered Flonase 50 mcg/inh nasal spray 1 sprays = 50 mcg, Nares, Both, 2 times a day, # 16 Gm, 5 Refills, Maintenance, 09/29/20 16:49:00 EDT, Nasal [place], [facility] #[id number], Partial fill upon patient request if the [...] 09/13/20 6:59:00 EDT, Route to Pharmacy Electronically, [facility] #[id number], Partial fill upon patient request if the [...] tablet, 0 Refills, Maintenance, 09/14/20 12:44:00 EDT, [facility] #[id number], 180, cm, 09/07/20 10:33:00 EDT, Height Start [...] Maintenance, 217:58:00 EDT, Route to Pharmacy Electronically, [facility] #[id number], Partial fill upon patient request if the [...] oldest [Reference Range]: 1 Height 180 cm (09/29/20 2:17 PM) Weight 105.0 kg (09/29/20 2:17 PM) Oxygen Saturation [94-100 %] 98 % (09/29/20 2:17 PM) Pulse Rate [55-90 bpm] 67 bpm (09/29/20 2:17 PM) Body Mass Index [18.5-24.99] 32.41 *>HHI* (09/29/20 2:17 PM) Blood Pressure [90-138/55-84 mm Hg] 128/ 78mm Hg (09/29/20 2:17 PM) Temperature [96.8-100.4 DegF] 98.4 DegF (09/29/20 2:17 PM) Mode of Delivery (Oxygen) Room air (09/29/20 2:17 PM) Blood pressure sites Arm, right (09/29/20 2:17 PM) Temperature Route Oral (09/29/20 2:17 PM) Weight Obtained Via Standing scale (09/29/20 2:17 PM) Social History Social History Type Response Smoking Status Current some day mata garza entered on: 02/15/18 Sex
--- OUTSIDE RECORDS SUMMARY | 2023-12-30 12:51 | XMS_ITS | Continuity of Care Document ---
Author Organization [facility] Address [address] [place] [address]- Care Team Providers Care Blaster Helper Name Role Phone Maria Esther URIAS, Balaji Quick Primary Care Physician En[place] [facility] [place] Date(s): 06/12/20 - 10/10/20 [facility] [address] [place], [place] [email or web address] Attending Physician: Rose HYATT, Key Han Admitting Physician: Rose HYATT, Key Han Referring Physician: Key Rose NP Allergies, Adverse Reactions, Alerts Substance Reaction Severity [...] acel(Tdap) 2 08/02/17 Given 1Result Comment: [02/15/2018] [id number] 2Result Comment: [08/02/2017] [facility] 28630-367-18 Medications amLODIPine 5 mg oral tablet 2.5 [...] 09/14/20 12:44:00 EDT, Route to Pharmacy Electronically, [facility] #[id number], 180, cm, 09/07/20 10:33:00 EDT, Height Start Date: 09/14/20 Status: Ordered Flonase 50 mcg/inh nasal spray 1 sprays = 50 mcg, Nares, Both, 2 times a day, # 16 Gm, 5 Refills, Maintenance, 09/29/20 16:49:00 EDT, Nasal [place], [facility] #[id number], Partial fill upon patient request if the [...] 09/13/20 6:59:00 EDT, Route to Pharmacy Electronically, [facility] #[id number], Partial fill upon patient request if the [...] tablet, 0 Refills, Maintenance, 09/14/20 12:44:00 EDT, [facility] #[id number], 180, cm, 09/07/20 10:33:00 EDT, Height Start [...] Maintenance, :58:00 EDT, Route to Pharmacy Electronically, [facility] #[id number], Partial fill upon patient request if the [...]
--- OUTSIDE RECORDS SUMMARY | 2023-12-30 12:51 | XMS_ITS | Continuity of Care Document ---
Author Organization [facility] Address [address] [place] [address]- Care Team Providers Care 911 Telecommunicator Name Role Phone Maria Esther URIAS, Balaji Quick Primary Care Physician Encounter [facility] [place] Date(s): 11/02/22 - 12/02/22 [facility] [address] [place] [address] Allergies, Adverse Reactions, Alerts Substance Reaction [...] pneumococcal 23-valent vaccine 12/17/12 Recorded 1Result Comment: [id number] 2Result Comment: [02/15/2018] [id number] 3Result Comment: [08/02/2017] [facility] 73241-395-72 Medications amLODIPine 10 mg oral tablet 10 mg, 1, tablet, By Mouth, Daily, # 90 tablet, Refills 3, Tot. Refills 3, Maintenance, 10/26/22 13:35:00 EDT, Route to Pharmacy Electronically, [facility] #[id number], Partial fill upon patientrequest if the prescription is for a schedule II op... Start Date: 10/26/22 Status: Ordered Aspirin Low Dose 81 mg oral delayed release tablet 1 tablet, By Mouth, Daily, # 90 tablet, 3 Refills, Maintenance, 11/08/22 11:19:00 EDT, [facility] #[id number], 184, cm, 11/03/22 11:28:00 EDT, Height, 106.3, kg, 09/13/22 12:30:00 EDT, Dry Weight Start Date: 11/08/22 Status: Ordered atorvastatin 80 mg oral tablet 1 tablet = 80 mg, By Mouth, Daily, # 90 tablet, 3 Refills, Maintenance, 10/05/21 17:34:00 EDT, Tablet, [facility] #[id number], Partial fill upon patient request if the prescription is for a schedule II opioid drug., 182, cm, 09/10/21 8:13:00 EDT,... Start Date: 10/05/21 Status: Ordered BuPROPion (Eqv-Wellbutrin SR) 150 mg/12 hours oral tablet, extended release 1 tablet = 150 mg, By Mouth, 2 times a day, # 180 tablet, 3 Refills, Maintenance, 10/05/21 17:37:00EDT, SR Tablet, [facility] #[id number], Partial fill upon patient request if the prescription is for a schedule II opioid drug., 182, cm, 09/10/21... Start Date: 10/05/21 Status: Ordered clopidogrel 75 mg oral tablet 1, tablet, By Mouth, Daily, # 90 tablet, Refills 0, Maintenance, 10/07/22 6:36:00 EDT, Route to Pharmacy Electronically, [facility] #[id number], 184, cm, 09/28/22 9:02:00 EDT, Height, 106.3, kg,09/13/22 12:30:00 EDT, Dry Weight Start Date: 10/07/22 Status: Ordered Flonase 50 mcg/inh nasal spray 1 sprays = 50 mcg, Nares, Both, 2 times a day, # 16 Gm, 5 Refills, Maintenance, 09/15/22 8:26:00 EDT, Nasal [place], [facility] #[id number], Partial fill upon patient request if the [...] 3 Refills, Maintenance, 10/05/21 17:34:00 EDT, Capsule, [facility] #[id number], Partial fill upon patient request if the prescription is for a schedule II opioid drug., 182, cm, 09/10/21 8:13:00 E... Start Date: 10/05/21 Status: Ordered isosorbide mononitrate 30 mg oral tablet, extended release 1 tablet, By Mouth, Daily in AM, # 90 tablet, 3 Refills, Maintenance, 10/20/22 16:40:00 EDT, [facility] #[id number], 184, cm, 09/28/22 9:02:00 EDT, Height, 106.3, [...] tablet, 5 Refills, Maintenance, 09/18/22 18:55:00 EDT, [facility] #[id number], 184, cm, 09/15/22 9:12:00 EDT, Height, 106.3, kg, 09/13/22 12:30:00 EDT, Dry Weight Start Date: 09/18/22 Status: Ordered Nitrostat 0.4 mg sublingual tablet 1 tablet = 0.4 mg, Sublingual, Every 5 minutes, PRN Chest Pain, prn, # 30 tablet, 11 Refills, Maintenance, 11/30/22 6:36:00 EDT, Tablet, [facility] #[id number], Partial fill upon patient requestif the prescription is for a schedule II opioid lisa... Start Date: 11/30/22 Status: Ordered omeprazole 20 mg oral enteric coated capsule 1 capsule = 20 mg, By Mouth, Daily, # 30 capsule, 1 Refills, Maintenance, 09/28/22 9:21:00 EDT, [facility] #[id number], Partial fill upon patient request if the [...] 10/05/21 17:36:00 EDT, Route to Pharmacy Electronically, [facility] #[id number], Partial fillupon patient request if the prescription [...] Care Nurse Name: Erich Dias RN Position: [facility] RN Member Role: Primary Care Nurse Name: Camila Vazquez RN Position: [facility] RN Member Role: Primary Care Nurse Name: Taylor Beck RN Position: [facility] RN Member Role: Primary Care Nurse Name: Amanda Garibay RN Position: [facility] RN Member Role: Primary Care Nurse Name: Mary Roberson RN Position: [facility] RN Member Role: Primary Care Nurse Name: Tomas Stauffer RN Position: [facility] RN Member Role: Primary Care Nurse Name: Balaji Mayo MD Position: [facility] Physician - Primary Care Member Role: PCP Address: Address: [address] [place] [address]- Name: Fadumo Conti RN Position: [facility] RN Member Role: Primary Care Nurse Care Team Related Persons Name: ROSANA NAGY Address: home [address] [place] [id number] Name: GORAN QUINTERO
--- OUTSIDE RECORDS SUMMARY | 2023-12-30 12:51 | XMS_ITS | Continuity of Care Document ---
Author Organization [facility] Rico Syed Aldair lt Address [address] [place] [address]- Care Team Providers Care Director Supply Chain Name Role Phone Maria Esther URIAS, Balaji Quick Primary Care Physician [place] [facility] [place] Date(s[place] 05/25/23 - 06/24/23 [facility] Rico Syed Adult [address] [place] [address]- Allergies, Adverse Reactions, Alerts Substance Reaction Severity [...] 23-valent vaccine 12/17/12 Recorded 1Result Comment: [02/15/2018] 79406-444-74 2Result Comment: [id number] 3Result Comment: [08/02/2017] [facility] 31702-891-62 Medications Aspirin Low Dose 81 mg oral delayed release tablet 1 tablet, By Mouth, Daily, # 90 tablet, 3 Refills, Maintenance, 11/08/22 11:19:00 EDT, [email or web address] #[id number], 184, cm, 11/03/22 11:28:00 EDT, Height, 106.3, kg, 09/13/22 12:30:00 EDT, Dry Weight Start Date: 11/08/22 Status: Ordered atorvastatin 80 mg oral tablet 1 tablet = 80 mg, By Mouth, Daily, # 90 tablet, 3 Refills, Maintenance, 12/05/22 4:30:00 EDT, Tablet, [email or web address] #[id number], Partial fill upon patient request if the prescription is for a schedule II opioid drug., 183, cm, 11/10/22 17:28:00 EDT,... Start Date: 12/05/22 Status: Ordered BuPROPion (Eqv-Wellbutrin SR) 150 mg/12 hours oral tablet, extended release 1 tablet = 150 mg, By Mouth, 2 times a day, # 180 tablet, 3 Refills, Maintenance, 10/05/21 17:37:00EDT, SR Tablet, [email or web address] #[id number], Partial fill upon patient request if the prescription is for a schedule II opioid drug., 182, cm, 09/10/21... Start Date: 10/05/21 Status: Ordered clopidogrel 75 mg oral tablet 1, tablet, By Mouth, Daily, # 90 tablet, Refills 3, Maintenance, 01/13/23 16:50:00 EDT, Route to Pharmacy Electronically, [email or web address] #[id number], 183, cm, 12/05/22 16:08:00 EDT, Height, 106.3, kg, 09/13/22 12:30:00 EDT, Dry Weight Start Date: 01/13/23 Status: Ordered Flonase 50 mcg/inh nasal spray 1 sprays = 50 mcg, Nares, Both, 2 times a day, # 16 Gm, 5 Refills, Maintenance, 09/15/22 8:26:00 EDT, Nasal [place], [facility] #[id number], Partial fill upon patient request if the prescription is for a schedule II opioid drug., 1 sprays Nares, Tolu... Start Date: 09/15/22 Status: Ordered FLUoxetine 40 mg oral capsule 1 capsule = 40 mg, By Mouth, Daily, # 90 capsule, 3 Refills, Maintenance, 10/05/21 17:34:00 EDT, Capsule, [facility] #[id number], Partial fill upon patient request if the [...] 11 Refills, Maintenance, 11/30/22 6:36:00 EDT, Tablet, [email or web address] #[id number], Partial fill upon patient requestif the prescription [...] capsule, 1 Refills, Maintenance, 09/28/22 9:21:00 EDT, [facility] #[id number], Partial fill upon patient request if the [...] 10/05/21 17:36:00 EDT, Route to Pharmacy Electronically, [facility] #[id number], Partial fillupon patient request if the prescription [...] Team Personnel Name: [place] RN Position: [facility] ED RN W/OE and Tasks Member Role: Primary Care Nurse Name: Esme Garcia RN Position: [facility] RN Member Role: Primary Care Nurse Name: Erich Dias RN Position: [facility] RN Member Role: Primary Care Nurse Name: Camila Vazquez RN Position: [facility] RN Member Role: Primary Care Nurse Name: Taylor Beck RN Position: [facility] RN Member Role: Primary Care Nurse Name: Amanda Garibay RN Position: [facility] RN Member Role: Primary Care Nurse Name: Mary Roberson RN Position: [facility] RN Member Role: Primary Care Nurse Name: Tomas Stauffer RN Position: [facility] RN Member Role: Primary Care Nurse Name: Balaji Mayo MD Position: [facility] Physician - Primary Care Member Role: PCP Address: Address: [address] [place] [address]- Care Team Related Persons Name: YAKOV ROSANA Address: home [address] [place] [address] Name: GORAN QUINTERO
--- OUTSIDE RECORDS SUMMARY | 2023-12-30 12:51 | XMS_ITS | Continuity of Care Document ---
Author Organization [facility] Kunal Aldair lt Address [address] [place] [address]- Care Team Providers Care Social Organization Professor Name Role Phone Maria Esther URIAS, Balaji Quick Primary Care Physician [place] [facility] [place] 04/20/21 - 05/20/21 [facility] Adult [address] [place] [address]- Allergies, Adverse Reactions, Alerts Substance Reaction Severity [...] 23-valent vaccine 12/17/12 Recorded 1Result Comment: [02/15/2018] [id number] 2Result Comment: [08/02/2017] [facility] [id number] Medications amLODIPine 5 mg oral tablet 2.5 [...] Refills, Maintenance, 02/18/21 9:19:00 EDT, EC Tablet, [facility], Partial fill upon patient request if the prescription is for a schedule II opioid drug., 180, cm, 01/26/21 13:02:00 EDT, Height Start Date: 02/18/21 Status: Ordered atorvastatin 80 mg oral tablet 1 tablet = 80 mg, By Mouth, Daily, # 90 tablet, 3 Refills, Maintenance, 03/25/21 16:47:00 EST, Tablet, [facility] #[id number], Partial fill upon patient request if the [...] 03/25/21 16:47:00 EST, Route to Pharmacy Electronically, [facility] #[id number], 180, cm, 02/19/21 13:36:00 EDT, Height Start Date: 03/25/21 Status: Ordered Flonase 50 mcg/inh nasal spray 1 sprays = 50 mcg, Nares, Both, 2 times a day, # 16 Gm, 5 Refills, Maintenance, 09/29/20 16:49:00 EDT, Nasal [place], [facility] #[id number], Partial fill upon patient request if the [...] 09/13/20 6:59:00 EDT, Route to Pharmacy Electronically, [facility] #[id number], Partial fill upon patient request if the [...] 11 Refills, Maintenance, 02/20/21 7:32:00 EDT, Patch, [facility], Partial fill upon patient request if the prescription is for a schedule II opioid drug., 1 patch T... Start Date: 02/20/21 Status: Ordered Metoprolol Tartrate 25 mg oral tablet 1 tablet, By Mouth, 2 times a day, # 180 tablet, 3 Refills, Maintenance, 03/25/21 16:47:00 EST, [facility] #[id number], 180, cm, 02/19/21 13:36:00 EDT, Height Start [...] Instructions ReplaceRequired Details, Route to Pharmacy Electronically, [facility], 180, cm, 02/19/21 13:36:00 EDT, Height [...]
--- OUTSIDE RECORDS SUMMARY | 2023-12-30 12:51 | XMS_ITS | Continuity of Care Document ---
Author Organization [facility] Kunal Aldair lt Address [address] [place] [address]- Care Team Providers Care Auto Claims Adjuster Name Role Phone Maria Esther URIAS, Balaji Quick Primary Care Physician [facility]counter [facility] Date(s): 03/21/22 - 04/20/22 [facility] [place] Adult [address] [place] [address]- Allergies, Adverse Reactions, Alerts Substance Reaction Severity [...] pneumococcal 23-valent vaccine 12/17/12 Recorded 1Result Comment: [id number] 2Result Comment: [02/15/2018] 77369-082-37 3Result Comment: [08/02/2017] [facility] 72529-493-23 Medications aspirin 81 mg oral delayed release tablet = 81 mg, By Mouth, Daily, # 90 tablet, 3 Refills, Maintenance, 10/05/21 17:34:00 EDT, EC Tablet, [facility] #[id number], Partial fill upon patient request if the prescription is for a schedule II opioid drug., 182, cm, 09/10/21 8:13:00 EDT, Heigh... Start Date: 10/05/21 Status: Ordered atorvastatin 80 mg oral tablet 1 tablet = 80 mg, By Mouth, Daily, # 90 tablet, 3 Refills, Maintenance, 10/05/21 17:34:00 EDT, Tablet, [facility] #[id number], Partial fill upon patient request if the prescription is for a schedule II opioid drug., 182, cm, 09/10/21 8:13:00 EDT,... Start Date: 10/05/21 Status: Ordered BuPROPion (Eqv-Wellbutrin SR) 150 mg/12 hours oral tablet, extended release 1 tablet = 150 mg, By Mouth, 2 times a day, # 180 tablet, 3 Refills, Maintenance, 10/05/21 17:37:00EDT, SR Tablet, [facility] #[id number], Partial fill upon patient request if the prescription is for a schedule II opioid drug., 182, cm, 09/10/21... Start Date: 10/05/21 Status: Ordered clopidogrel 75 mg oral tablet 1, tablet, By Mouth, Daily, # 90 tablet, Refills 3, Tot. Refills 3, Maintenance, 10/05/21 17:34:00 EDT, Route to Pharmacy Electronically, [facility] #[id number], 182, cm, 09/10/21 8:13:00 EDT, Height, 102.7, [...] 5 Refills, Maintenance, 09/29/20 16:49:00 EDT, Nasal [place], [facility] #[id number], Partial fill upon patient request if the prescription is for a schedule II opioid drug., 1 sprays Nares, B... Start Date: 09/29/20 Status: Ordered FLUoxetine 40 mg oral capsule 1 capsule = 40 mg, By Mouth, Daily, # 90 capsule, 3 Refills, Maintenance, 10/05/21 17:34:00 EDT, Capsule, [facility] #[id number], Partial fill upon patient request if the [...] 90 tablet, 3 Refills, 10/05/21 17:35:00 EDT, [facility] #[id number], 182, cm, 09/10/21 8:13:00 EDT, Height, 102.7, [...] 10/06/21 14:57:00 EDT, Route to Pharmacy Electronically, [facility] #[id number], Partial fill upon patient request if the prescription is for a sche... Start Date: 10/06/21 Stop Date: 10/01/22 Status: Ordered lidocaine 5% topical film 1 patch, Topically, Daily, PRN Pain , Mild, remove after 12 hours, # 30 patch, 11 Refills, Maintenance, 02/20/21 7:32:00 EDT, Patch, [facility], Partial fill upon patient request if the prescription is for a schedule II opioid drug., 1 patch T... Start Date: 02/20/21 Status: Ordered metoprolol 25 mg oral tablet 12.5 mg, 0.5, tablet, By Mouth, 2 times a day, # 90 tablet, Refills 3, Tot. Refills 3, Maintenance,10/05/21 17:40:00 EDT, Route to Pharmacy Electronically, [facility] #[id number], Partial fill upon patient request if the prescription is for a sc... Start Date: 10/05/21 Status: Ordered QUEtiapine 400 mg oral tablet, extended release 400 mg, 1, tablet, By Mouth, Daily in PM, # 90 tablet, Refills 0, Tot. Refills 0, Maintenance, 04/13/22 10:30:00 EST, Route to Pharmacy Electronically, [facility] #[id number], Partial fill upon patient request if the prescription is for a schedul... Start Date: 04/13/22 Status: Ordered RETIREMENT VISIT FREQUENCY RETIREMENT VISIT FREQUENCY, See Instructions, # 1 each, Refills 0, Tot. Refills 0, Maintenance, PLEASE INCREASE RETIREMENT VISITS TO TWICE A DAY FOR MEDICATION MANAGEMENT AND ADMINISTRATION., 10/06/21 15:08:00 EDT, Supply Start Date: 10/06/21 Status: Ordered traZODone 100 mg oral tablet 200 mg, 2, tablet, By Mouth, Daily at bedtime, # 180 tablet, Refills 3, Tot. Refills 3, Maintenance, 10/05/21 17:36:00 EDT, Route to Pharmacy Electronically, [facility] #[id number], Partial fillupon patient request if the prescription [...] disease Confirmed Active Schizoaffective schizophrenia Confirmed Active Stricture of artery 3 Confirmed [...] Team Personnel Name: Wild Woods RN Position: [facility] ED RN W/OE and Tasks Member Role: Primary Care Nurse Name: Camila Vazquez RN Position: [facility] RN Member Role: Primary Care Nurse Name: Amanda Garibay RN Position: [facility] RN Member Role: Primary Care Nurse Name: Mary Roberson RN Position: [facility] RN Member Role: Primary Care Nurse Name: Tomas Stauffer RN Position: [facility] RN Member Role: Primary Care Nurse Name: Balaji Mayo MD Position: [facility] Primary Care Physician Member Role: PCP Address: Address: [address] [place] [address]- Name: Pattie Oates RN Position: [facility] RN Member Role: Primary Care Nurse Care Team Related Persons Name: ROSANA NAGY Address: home [address] [place] [id number] Name: GORAN QUINTERO
--- OUTSIDE RECORDS SUMMARY | 2023-12-30 12:51 | XMS_ITS | Continuity of Care Document ---
Author Organization [facility] Address [address] [place] [address]- Care Team Providers Care Assistant Professor Of Sociology Name Role Phone Maria Esther URIAS, Balaji Quick Primary Care Physician Encounter [facility] Date(s): 10/24/22 - 11/23/22 [facility] [address] [place] [id number] Allergies, Adverse Reactions, Alerts Substance Reaction [...] pneumococcal 23-valent vaccine 12/17/12 Recorded 1Result Comment: [id number] 2Result Comment: [02/15/2018] 63229-741-82 3Result Comment: [08/02/2017] [facility] 85870-814-46 Medications amLODIPine 10 mg oral tablet 10 mg, 1, tablet, By Mouth, Daily, # 90 tablet, Refills 3, Tot. Refills 3, Maintenance, 10/26/22 13:35:00 EDT, Route to Pharmacy Electronically, [email or web address] #[id number], Partial fill upon patientrequest if the prescription is for a schedule II op... Start Date: 10/26/22 Status: Ordered Aspirin Low Dose 81 mg oral delayed release tablet 1 tablet, By Mouth, Daily, # 90 tablet, 3 Refills, Maintenance, 11/08/22 11:19:00 EDT, [email or web address] #[id number], 184, cm, 11/03/22 11:28:00 EDT, Height, 106.3, kg, 09/13/22 12:30:00 EDT, Dry Weight Start Date: 11/08/22 Status: Ordered atorvastatin 80 mg oral tablet 1 tablet = 80 mg, By Mouth, Daily, # 90 tablet, 3 Refills, Maintenance, 10/05/21 17:34:00 EDT, Tablet, [email or web address] #[id number], Partial fill upon patient request if the prescription is for a schedule II opioid drug., 182, cm, 09/10/21 8:13:00 EDT,... Start Date: 10/05/21 Status: Ordered BuPROPion (Eqv-Wellbutrin SR) 150 mg/12 hours oral tablet, extended release 1 tablet = 150 mg, By Mouth, 2 times a day, # 180 tablet, 3 Refills, Maintenance, 10/05/21 17:37:00EDT, SR Tablet, [facility] #[id number], Partial fill upon patient request if the prescription is for a schedule II opioid drug., 182, cm, 09/10/21... Start Date: 10/05/21 Status: Ordered clopidogrel 75 mg oral tablet 1, tablet, By Mouth, Daily, # 90 tablet, Refills 0, Maintenance, 10/07/22 6:36:00 EDT, Route to Pharmacy Electronically, [email or web address] #[id number], 184, cm, 09/28/22 9:02:00 EDT, Height, 106.3, kg,09/13/22 12:30:00 EDT, Dry Weight Start Date: 10/07/22 Status: Ordered Flonase 50 mcg/inh nasal spray 1 sprays = 50 mcg, Nares, Both, 2 times a day, # 16 Gm, 5 Refills, Maintenance, 09/15/22 8:26:00 EDT, Nasal [place], [facility] #[id number], Partial fill upon patient request if the [...] 3 Refills, Maintenance, 10/05/21 17:34:00 EDT, Capsule, [email or web address] #[id number], Partial fill upon patient request if the prescription is for a schedule II opioid drug., 182, cm, 09/10/21 8:13:00 E... Start Date: 10/05/21 Status: Ordered isosorbide mononitrate 30 mg oral tablet, extended release 1 tablet, By Mouth, Daily in AM, # 90 tablet, 3 Refills, Maintenance, 10/20/22 16:40:00 EDT, [email or web address] #[id number], 184, cm, 09/28/22 9:02:00 EDT, Height, 106.3, [...] tablet, 5 Refills, Maintenance, 09/18/22 18:55:00 EDT, [facility] #[id number], 184, cm, 09/15/22 9:12:00 EDT, Height, 106.3, [...] capsule, 1 Refills, Maintenance, 09/28/22 9:21:00 EDT, [email or web address] #[id number], Partial fill upon patient request if the [...] 10/05/21 17:36:00 EDT, Route to Pharmacy Electronically, [email or web address] #[id number], Partial fillupon patient request if the prescription [...] Team Personnel Name: Wild Woods RN Position: [facility] ED RN W/OE and Tasks Member Role: Primary Care Nurse Name: Erich Dias RN Position: [facility] RN Member Role: Primary Care Nurse Name: Camila Vazquez RN Position: [facility] RN Member Role: Primary Care Nurse Name: Taylor Beck RN Position: [facility] RN Member Role: Primary Care Nurse Name: Amanda Garibay RN Position: [facility] RN Member Role: Primary Care Nurse Name: Mary Roberson RN Position: [facility] RN Member Role: Primary Care Nurse Name: Tomas Stauffer RN Position: [facility] RN Member Role: Primary Care Nurse Name: Balaji Mayo MD Position: [facility] Physician - Primary Care Member Role: PCP Address: Address: [address] [place] [address]- Name: Fadumo Conti RN Position: [facility] RN Member Role: Primary Care Nurse Care Team Related Persons Name: YAKOV ROSANA Address: home [address] [place] [id number] Name: GORAN QUINTERO
--- OUTSIDE RECORDS SUMMARY | 2023-12-30 12:51 | XMS_ITS | Continuity of Care Document ---
Author Organization [facility] Address [address] [place] [address]- Care Team Providers Care Etl Informatica Developer Name Role Phone Maria Esther URIAS, Balaji Quick Primary Care Physician Encounter [facility] Date(s): 05/11/23 - 06/10/23 [facility] [address] [place], [place] [address] Allergies, Adverse Reactions, Alerts Substance Reaction [...] 23-valent vaccine 12/17/12 Recorded 1Result Comment: [02/15/2018] 84763-734-54 2Result Comment: [id number] 3Result Comment: [08/02/2017] [facility] 55238-106-49 Medications Aspirin Low Dose 81 mg oral delayed release tablet 1 tablet, By Mouth, Daily, # 90 tablet, 3 Refills, Maintenance, 11/08/22 11:19:00 EDT, [facility] #[id number], 184, cm, 11/03/22 11:28:00 EDT, Height, 106.3, kg, 09/13/22 12:30:00 EDT, Dry Weight Start Date: 11/08/22 Status: Ordered atorvastatin 80 mg oral tablet 1 tablet = 80 mg, By Mouth, Daily, # 90 tablet, 3 Refills, Maintenance, 12/05/22 4:30:00 EDT, Tablet, [facility] #[id number], Partial fill upon patient request if the prescription is for a schedule II opioid drug., 183, cm, 11/10/22 17:28:00 EDT,... Start Date: 12/05/22 Status: Ordered BuPROPion (Eqv-Wellbutrin SR) 150 mg/12 hours oral tablet, extended release 1 tablet = 150 mg, By Mouth, 2 times a day, # 180 tablet, 3 Refills, Maintenance, 10/05/21 17:37:00EDT, SR Tablet, [facility] #[id number], Partial fill upon patient request if the prescription is for a schedule II opioid drug., 182, cm, 09/10/21... Start Date: 10/05/21 Status: Ordered clopidogrel 75 mg oral tablet 1, tablet, By Mouth, Daily, # 90 tablet, Refills 3, Maintenance, 01/13/23 16:50:00 EDT, Route to Pharmacy Electronically, [facility] #[id number], 183, cm, 12/05/22 16:08:00 EDT, Height, 106.3, kg, 09/13/22 12:30:00 EDT, Dry Weight Start Date: 01/13/23 Status: Ordered Flonase 50 mcg/inh nasal spray 1 sprays = 50 mcg, Nares, Both, 2 times a day, # 16 Gm, 5 Refills, Maintenance, 09/15/22 8:26:00 EDT, Nasal [place], [facility] #[id number], Partial fill upon patient request if the prescription is for a schedule II opioid drug., 1 sprays Nares, [place]... Start Date: 09/15/22 Status: Ordered FLUoxetine 40 mg oral capsule 1 capsule = 40 mg, By Mouth, Daily, # 90 capsule, 3 Refills, Maintenance, 10/05/21 17:34:00 EDT, Capsule, [facility] #[id number], Partial fill upon patient request if the [...] 11 Refills, Maintenance, 11/30/22 6:36:00 EDT, Tablet, [facility] #[id number], Partial fill upon patient requestif the prescription [...] capsule, 1 Refills, Maintenance, 09/28/22 9:21:00 EDT, [facility] #[id number], Partial fill upon patient request if the [...] 10/05/21 17:36:00 EDT, Route to Pharmacy Electronically, [facility] #[id number], Partial fillupon patient request if the prescription [...] Team Personnel Name: Wild Woods RN Position: [facility] ED RN W/OE and Tasks Member Role: Primary Care Nurse Name: Esme Garcia RN Position: [facility] RN Member Role: Primary Care Nurse Name: Erich Dias RN Position: [facility] RN Member Role: Primary Care Nurse Name: Camila Vazquez RN Position: [facility] RN Member Role: Primary Care Nurse Name: Taylor Beck RN Position: [facility] RN Member Role: Primary Care Nurse Name: Amanda Garibay RN Position: [facility] RN Member Role: Primary Care Nurse Name: Mary Roberson RN Position: [facility] RN Member Role: Primary Care Nurse Name: Tomas Stauffer RN Position: [facility] RN Member Role: Primary Care Nurse Name: Balaji Mayo MD Position: [facility] Physician - Primary Care Member Role: PCP Address: Address: [address] [place] [address]- Care Team Related Persons Name: YAKOVROSANA Address: home [address] [place] [id number] Name: GORAN QUINTERO
--- OUTSIDE RECORDS SUMMARY | 2023-12-30 12:51 | XMS_ITS | Continuity of Care Document ---
Author Organization [facility] Rico Syed Aldair Address [address] [place] [address]- Care Team Providers Care Retoucher Name Role Phone Maria Esther URIAS, Balaji Quick Primary Care Physician Encounter [facility] [place] Date(s): 07/31/23 - 08/30/23 [facility] Rico Syed Adult [address] [place] [address]- Allergies, Adverse Reactions, Alerts Substance Reaction Severity [...] 23-valent vaccine 12/17/12 Recorded 1Result Comment: [02/15/2018] 38177-309-39 2Result Comment: [id number] 3Result Comment: [08/02/2017] [facility] 68861-368-91 Medications Aspirin Low Dose 81 mg oral delayed release tablet 1 tablet, By Mouth, Daily, # 90 tablet, 3 Refills, Maintenance, 11/08/22 11:19:00 EDT, [facility] #[id number], 184, cm, 11/03/22 11:28:00 EDT, Height, 106.3, kg, 09/13/22 12:30:00 EDT, Dry Weight Start Date: 11/08/22 Status: Ordered atorvastatin 80 mg oral tablet 1 tablet = 80 mg, By Mouth, Daily, # 90 tablet, 3 Refills, Maintenance, 08/18/23 16:03:00 EDT, Tablet, [facility] #[id number], Partial fill upon patient request if the prescription is for a schedule II opioid drug., 183, cm, 08/09/23 10:49:00 EDT... Start Date: 08/18/23 Status: Ordered BuPROPion (Eqv-Wellbutrin SR) 150 mg/12 hours oral tablet, extended release 1 tablet = 150 mg, By Mouth, 2 times a day, # 180 tablet, 3 Refills, Maintenance, 10/05/21 17:37:00EDT, SR Tablet, [facility] #[id number], Partial fill upon patient request if the prescription is for a schedule II opioid drug., 182, cm, 09/10/21... Start Date: 10/05/21 Status: Ordered clopidogrel 75 mg oral tablet 1, tablet, By Mouth, Daily, # 90 tablet, Refills 3, Tot. Refills 3, Maintenance, 08/18/23 16:03:00 EDT, Route to Pharmacy Electronically, [facility] #[id number], 183, cm, 08/09/23 10:49:00 EDT, Height, 107, kg, 01/26/23 19:57:00 EDT, Dry Weight Start Date: 08/18/23 Status: Ordered FLUoxetine 40 mg oral capsule 1 capsule = 40 mg, By Mouth, Daily, # 90 capsule, 3 Refills, Maintenance, 10/05/21 17:34:00 EDT, Capsule, [facility] #[id number], Partial fill upon patient request if the prescription is for a schedule II opioid drug., 182, cm, 09/10/21 8:13:00 E... Start Date: 10/05/21 Status: Ordered fluticasone 50 mcg/inh nasal spray 1 sprays = 50 mcg, Nares, Both, 2 times a day, PRN allergies, # 16 Gm, 11 Refills, Maintenance, 08/18/23 16:05:00 EDT, [place], [facility] #[id number], Partial fill upon patient request if the [...] 11 Refills, Maintenance, 08/18/23 16:04:00 EDT, Tablet, [facility] #[id number], Partial fill upon patient request if the prescription is for a schedule II opioid dr... Start Date: 08/18/23 Status: Ordered Norvasc 2.5 mg oral tablet 2.5 mg, 1, tablet, By Mouth, Daily, # 90 tablet, Refills 3, Tot. Refills 3, Maintenance, 08/18/23 16:02:00 EDT, Route to Pharmacy Electronically, [facility] #[id number], Partial fill upon patient request if the prescription is for a schedule II o... Start Date: 08/18/23 Status: Ordered omeprazole 20 mg oral enteric coated capsule 1 capsule = 20 mg, By Mouth, Daily, # 90 capsule, 3 Refills, Maintenance, 08/18/23 16:04:00 EDT, [facility] #[id number], Partial fill upon patient request if the [...] 08/18/23 16:01:00 EDT, Route to Pharmacy Electronically, [facility] #[id number] Tablet, Partial fill upon ani... Start Date: 08/18/23 Stop Date: 08/17/24 Status: Ordered traZODone 100 mg oral tablet 200 mg, 2, tablet, By Mouth, Daily at bedtime, # 180 tablet, Refills 3, Tot. Refills 3, Maintenance, 10/05/21 17:36:00 EDT, Route to Pharmacy Electronically, [facility] #[id number], Partial fillupon patient request if the prescription [...] Team Personnel Name: Wild Woods RN Position: [facility] ED RN W/OE and Tasks Member Role: Primary Care Nurse Name: Esme Garcia RN Position: [facility] RN Member Role: Primary Care Nurse Name: Erich Dias RN Position: [facility] RN Member Role: Primary Care Nurse Name: Camila Vazquez RN Position: [facility] RN Member Role: Primary Care Nurse Name: Taylor Beck RN Position: [facility] RN Member Role: Primary Care Nurse Name: Amanda Moraes RN Position: [facility] RN Member Role: Primary Care Nurse Name: Mary Roberson RN Position: [facility] RN Member Role: Primary Care Nurse Name: Tomas Stauffer RN Position: [facility] RN Member Role: Primary Care Nurse Name: Balaji Mayo MD Position: [facility] Physician - Primary Care Member Role: PCP Address: Address: [address] [place] [address]- [place] Care Team Related Persons Name: ROSANA NAGY Address: home [address] [place] [address] Name: GORAN QUINTERO
--- OUTSIDE RECORDS SUMMARY | 2023-12-30 12:52 | XMS_ITS | Continuity of Care Document ---
Author Organization [facility] Address [address] [place] [address]- Care Team Providers Care Pastoral Counselor Name Role Phone Balaji Mayo MD Primary Care Physician Encounter [facility] [place] Date(s): 09/07/20 - 10/17/20 [facility] [address] [place] [place] [address] Attending Physician: Daniel Wright MD Admitting Physician: Daniel Wright MD Referring Physician: Balaji Mayo MD Allergies, Adverse [...] acel(Tdap) 2 08/02/17 Given 1Result Comment: [02/15/2018] [id number] 2Result Comment: [08/02/2017] [facility] 23489-696-14 Medications amLODIPine 5 mg oral tablet 2.5 [...] 09/14/20 12:44:00 EDT, Route to Pharmacy Electronically, [facility] #[id number], 180, cm, 09/07/20 10:33:00 EDT, Height Start Date: 09/14/20 Status: Ordered Flonase 50 mcg/inh nasal spray 1 sprays = 50 mcg, Nares, Both, 2 times a day, # 16 Gm, 5 Refills, Maintenance, 09/29/20 16:49:00 EDT, Nasal [place], [facility] #[id number], Partial fill upon patient request if the [...] 09/13/20 6:59:00 EDT, Route to Pharmacy Electronically, [facility] #[id number], Partial fill upon patient request if the [...] tablet, 0 Refills, Maintenance, 09/14/20 12:44:00 EDT, [facility] #[id number], 180, cm, 09/07/20 10:33:00 EDT, Height Start [...] Maintenance, 217:58:00 EDT, Route to Pharmacy Electronically, [facility] #[id number], Partial fill upon patient request if the [...]
--- OUTSIDE RECORDS SUMMARY | 2023-12-30 12:52 | XMS_ITS | Continuity of Care Document ---
Author Organization [facility] ter Address [address] [place] [address]- Care Team Providers Care Percussion Instrument Tuner Name Role Phone Balaji Mayo MD Primary Care Physician Encounter [facility] [place] Date(s): 12/01/20 - 12/01/[address] [address]- Discharge Disposition: A-D/C Home Attending Physician: Ibrahima Okeefe MD Admitting Physician: Ibrahima Okeefe MD Referring Physician: Not on Staff, Referring MD [...] acel(Tdap) 2 08/02/17 Given 1Result Comment: [02/15/2018] 68949-193-82 2Result Comment: [08/02/2017] [facility] [id number] Medications amLODIPine 5 mg oral tablet 2.5 [...] 09/14/20 12:44:00 EDT, Route to Pharmacy Electronically, [facility] #[id number], 180, cm, 09/07/20 10:33:00 EDT, Height Start Date: 09/14/20 Status: Ordered Flonase 50 mcg/inh nasal spray 1 sprays = 50 mcg, Nares, Both, 2 times a day, # 16 Gm, 5 Refills, Maintenance, 09/29/20 16:49:00 EDT, Nasal [place], [facility] #[id number], Partial fill upon patient request if the [...] 09/13/20 6:59:00 EDT, Route to Pharmacy Electronically, [facility] #[id number], Partial fill upon patient request if the [...] tablet, 0 Refills, Maintenance, 09/14/20 12:44:00 EDT, [facility] #[id number], 180, cm, 09/07/20 10:33:00 EDT, Height Start [...] Maintenance, 05/25/217:58:00 EDT, Route to Pharmacy Electronically, [facility] #[id number], Partial fill upon patient request if the [...] recent to oldest [Reference Range]: 1 2 Oxygen Saturation [94-100 %] 99 % (12/01/20 5:06 PM) 100 % (12/01/20 2:31 PM) Pulse Rate [55-90 bpm] 53 bpm *L* (12/01/20 5:06 PM) 55 bpm (12/01/20 2:31 PM) Blood Pressure [90-138/55-84 mm Hg] 186/ 94mm Hg *H* (12/01/20 5:06 PM) 166/94mm Hg *H* (12/01/20 2:31 PM) Respiratory Rate [16-30 br/min] 17 br/mi n (12/01/20 5:06 PM) 20 br/min (12/01/20 2:31 PM) Temperature [96.8-100.4 DegF] 98.4 DegF (12/01/20 2:31 PM) Mode of Delivery (Oxygen) Room air (12/01/20 5:06 PM) Room air (12/01/20 2:31 PM) Blood pressure sites Arm, right (12/01/20 2:31 PM) Temperature Route Oral (12/01/20 2:31 PM) Social History Social History Type Response Smoking Status Current some day smo ker entered on: 02/15/18 Sex
--- OUTSIDE RECORDS SUMMARY | 2023-12-30 12:52 | XMS_ITS | Continuity of Care Document ---
Author Organization [facility] Rico Syed Aldair lt Address [address] [place] [address]- Care Team Providers Care Bending Roll Hand Name Role Phone Maria Esther URIAS, Balaji Quick Primary Care Physician Encounter [facility] Date(s): 06/20/22 - 07/20/22 [facility] Rico Syed Adult [address] [place] [address]- Allergies, Adverse Reactions, Alerts Substance Reaction Severity [...] pneumococcal 23-valent vaccine 12/17/12 Recorded 1Result Comment: [id number] 2Result Comment: [02/15/2018] 75829-419-54 3Result Comment: [08/02/2017] [facility] 94598-265-72 Medications aspirin 81 mg oral delayed release tablet = 81 mg, By Mouth, Daily, # 90 tablet, 3 Refills, Maintenance, 10/05/21 17:34:00 EDT, EC Tablet, [facility] #[id number], Partial fill upon patient request if the prescription is for a schedule II opioid drug., 182, cm, 09/10/21 8:13:00 EDT, Heigh... Start Date: 10/05/21 Status: Ordered atorvastatin 80 mg oral tablet 1 tablet = 80 mg, By Mouth, Daily, # 90 tablet, 3 Refills, Maintenance, 10/05/21 17:34:00 EDT, Tablet, [facility] #[id number], Partial fill upon patient request if the prescription is for a schedule II opioid drug., 182, cm, 09/10/21 8:13:00 EDT,... Start Date: 10/05/21 Status: Ordered BuPROPion (Eqv-Wellbutrin SR) 150 mg/12 hours oral tablet, extended release 1 tablet = 150 mg, By Mouth, 2 times a day, # 180 tablet, 3 Refills, Maintenance, 10/05/21 17:37:00EDT, SR Tablet, [facility] #[id number], Partial fill upon patient request if the prescription is for a schedule II opioid drug., 182, cm, 09/10/21... Start Date: 10/05/21 Status: Ordered clopidogrel 75 mg oral tablet 1, tablet, By Mouth, Daily, # 90 tablet, Refills 3, Tot. Refills 3, Maintenance, 10/05/21 17:34:00 EDT, Route to Pharmacy Electronically, [facility] #[id number], 182, cm, 09/10/21 8:13:00 EDT, Height, 102.7, kg, 09/08/21 16:41:00 EDT, Dry Weight Start Date: 10/05/21 Status: Ordered Flonase 50 mcg/inh nasal spray 1 sprays = 50 mcg, Nares, Both, 2 times a day, # 16 Gm, 5 Refills, Maintenance, 09/29/20 16:49:00 EDT, Nasal [place], [facility] #[id number], Partial fill upon patient request if the [...] 3 Refills, Maintenance, 10/05/21 17:34:00 EDT, Capsule, [facility] #[id number], Partial fill upon patient request if the prescription is for a schedule II opioid drug., 182, cm, 09/10/21 8:13:00 E... Start Date: 10/05/21 Status: Ordered isosorbide mononitrate 30 mg oral tablet, extended release 1 tablet = 30 mg, By Mouth, Daily in AM, # 90 tablet, 3 Refills, 10/05/21 17:35:00 EDT, [facility] #[id number], 182, cm, 09/10/21 8:13:00 EDT, Height, 102.7, kg, 09/08/21 16:41:00 EDT, Dry Weight Start Date: 10/05/21 Status: Ordered lamotrigine 25 mg oral tablet 100 mg, 4, tablet, By Mouth, 2 times a day, # 720 tablet, Refills 3, Tot. Refills 3, Maintenance, 10/06/21 14:57:00 EDT, Route to Pharmacy Electronically, [facility] #[id number], Partial fill upon patient request if the prescription is for a sche... Start Date: 10/06/21 Stop Date: 10/01/22 Status: Ordered lidocaine 5% topical film 1 patch, Topically, Daily, PRN Pain , Mild, remove after 12 hours, # 30 patch, 11 Refills, Maintenance, 02/20/21 7:32:00 EDT, Patch, [facility], Partial fill upon patient request if the prescription is for a schedule II opioid drug., 1 patch T... Start Date: 02/20/21 Status: Ordered metoprolol 25 mg oral tablet 25 mg, 1, tablet, By Mouth, 2 times a day, increase in dose, # 60 tablet, Refills 2, Tot. Refills 2, Maintenance, 06/06/22 14:13:00 EST, Route to Pharmacy Electronically, [facility] #[id number],Partial fill upon patient request if the prescripti... Start Date: 06/06/22 Status: Ordered mupirocin 2% topical ointment 1 application, Topically, 3 times a day, for 5 days, apply a thin film to affected area, # 15 Gm, 0Refills, Acute 07/24/22 12:01:00 EDT, 07/19/22 12:01:00 EDT, Ointment, [facility] #[id number],Partial fill upon patient request if the prescripti... Start Date: 07/19/22 Stop Date: 07/24/22 Status: Ordered Nitrostat 0.4 mg sublingual tablet [...] 10/05/21 17:36:00 EDT, Route to Pharmacy Electronically, [facility] #[id number], Partial fillupon patient request if the prescription [...] Team Personnel Name: Wild Woods RN Position: [facility] ED RN W/OE and Tasks Member Role: Primary Care Nurse Name: Camila Vazquez RN Position: [facility] RN Member Role: Primary Care Nurse Name: Amanda Garibay RN Position: [facility] RN Member Role: Primary Care Nurse Name: Mary Roberson RN Position: [facility] RN Member Role: Primary Care Nurse Name: Tomas Stauffer RN Position: [facility] RN Member Role: Primary Care Nurse Name: Balaji Mayo MD Position: [facility] Primary Care Physician Member Role: PCP Address: Address: [address] [place] [address]- [place] Care Team Related Persons Name: ROSANA NAGY Address: home [address] [place] [id number] Name: GORAN QUINTERO
--- OUTSIDE RECORDS SUMMARY | 2023-12-30 12:52 | XMS_ITS | Continuity of Care Document ---
Author Organization [facility] Address [address] [place] [address]- Care Team Providers Care Visitor Services Assistant Name Role Phone Balaji Mayo MD Primary Care Physician Encounter [facility] [id number] Date(s): 08/28/19 - 09/04/19 [facility] [address] [place] [address]- [facility] Attending Physician: Daniel Wright MD Admitting Physician: [...] acel(Tdap) 2 08/02/17 Given 1Result Comment: [02/15/2018] 83289-686-25 2Result Comment: [08/02/2017] [facility] 38922-313-41 Medications Aspirin Tablet 81 mg, By Mouth, Daily, Maintenance, 04/15/13 17:02:08 Start Date: 04/15/13 Status: Ordered atorvastatin 80 mg oral tablet 1 tablet = 80 mg, By Mouth, Daily in AM, # 90 tablet, 1 Refills, Maintenance, 04/04/19 14:08:12 EST, Tablet, 180, cm, 01/29/19 9:22:52 EDT, Height, 109.8, kg, 07/19/17 9:26:47 EDT, Dry Weight Start Date: 04/04/19 Stop Date: 10/01/19 Status: Ordered buPROPion 150 mg/12 hours (SR) oral tablet, extended release 1 tablet = 150 mg, By Mouth, 2 times a day Start Date: 07/07/16 Status: Ordered clopidogrel 75 mg oral tablet See Instructions, # 90 tablet, Refills 5 Tot. Refills 5, TAKE 1 TABLET BY MOUTH EVERY DAY, [facility]/pharmacy #[id number] Start Date: 03/14/19 Status: Ordered cyclobenzaprine 5 mg oral tablet 1 tablet = 5 mg, By Mouth, 2 times a day, PRN as needed for muscle spasm, # 60 tablet, 2 Refills, Maintenance, 04/07/19 18:48:10 EST, Tablet, [facility]/pharmacy #[id number], 180, cm, 01/29/19 9:22:52 EDT, Height, 109.8, kg, 07/19/17 9:26:47 EDT, Dry Weight Start Date: 04/07/19 Status: Ordered Ditropan XL 5 mg/24 hours oral tablet, extended release 1 tablet = 5 mg, By Mouth, Daily, 0 Refills, Maintenance, 12/16/14 12:57:43 Start Date: 12/16/14 Status: Ordered Flomax 0.4 mg oral capsule 0.4 mg, 1, capsule, By Mouth, Daily, # 30 capsule, Refills 11, Tot. Refills 11, Maintenance, 04/20/18 9:51:29 EST, Route to Pharmacy Electronically, [id number], [facility]/pharmacy#207 Start Date: 04/20/18 Status: Ordered Flonase 50 mcg/inh nasal spray 2 sprays, Nares, Both, 2 times a day, # 16 Gm, 0 Refills, Maintenance, 11/16/18 10:23:39 EDT, [place] Start Date: 11/16/18 Status: Ordered isosorbide mononitrate 30 mg oral tablet, extended release 30 mg, 1, tablet, By Mouth, Daily in AM, # 90 tablet, Refills 1, Tot. Refills 1, Maintenance, 04/25/19 15:31:00 EST, Route to Pharmacy Electronically, [facility]/pharmacy #[id number], 180, cm, 01/29/19 9:22:00 EDT, Height, [...] 30 patch,5 Refills, Maintenance, 06/26/19 9:19:00 EST, [facility]/pharmacy #[id number], Apply to affected area Topically Daily; remove patches after 12 hours, 180, cm, 0... Start Date: 06/26/19 Status: Ordered metoprolol 25 mg oral tablet 25 mg, 1, tablet, By Mouth, 2 times a day, # 60 tablet, Refills 1, Tot. Refills 1, Maintenance, 08/02/19 9:49:00 EDT, [id number], 180, cm, 06/26/19 8:31:00 EST, Height, Dry Weight Start Date: 08/02/19 Status: Ordered nitroglycerin 0.4 mg sublingual tablet 1 tablet = 0.4 mg, Sublingual, Every 5 minutes, PRN for chest pain, # 100 tablet, 0 Refills, Maintenance, 11/16/18 10:24:35 EDT, Tablet Start Date: 11/16/18 Status: Ordered Norvasc 10 mg oral tablet 10 mg, 1, tablet, By Mouth, Daily, # 90 tablet, Refills 3, Tot. Refills 3, Maintenance, 11/01/18 16:20:22 EDT, Do Not Route Start Date: 11/01/18 Status: Ordered Prozac 40 mg oral capsule 1 capsule = 40 mg, By Mouth, Daily, 0 Refills, Maintenance, 07/01/14 8:50:53 Start Date: 07/01/14 Status: Ordered raNITIdine 150 mg oral tablet 1 tablet = 150 mg, By Mouth, 2 times a day, # 60 tablet, 2 Refills, Maintenance, 04/04/19 14:08:13 EST, Tablet, 180, cm, 01/29/19 9:22:52 EDT, Height, 109.8, kg, 07/19/17 9:26:47 EDT, Dry Weight Start Date: 04/04/19 Status: Ordered SEROquel XR 400 mg oral [...] Type Response Smoking Status Current [facility] kayla entered on: 02/15/18 Sex
--- OUTSIDE RECORDS SUMMARY | 2023-12-30 12:52 | XMS_ITS | Continuity of Care Document ---
Author Organization [facility] Rico Syed Aldair lt Address [address] [place] [address]- Care Team Providers Care Tape Weaver Name Role Phone Maria Esther URIAS, Balaji Quick Primary Care Physician Encounter [facility] Date(s): 11/07/23 - 12/07/23 [facility] Rico Syed Adult [address] [place] [address]- Allergies, Adverse Reactions, Alerts Substance Reaction Severity [...] 23-valent vaccine 12/17/12 Recorded 1Result Comment: [02/15/2018] 30825-026-58 2Result Comment: [id number] 3Result Comment: [08/02/2017] [facility] 18016-210-48 Medications acetaminophen 325 mg oral tablet 650 mg, By Mouth, Every 6 hours, may take OTC not to exceed 3000 mg/day, Refills 0, Maintenance, 11/23/23 7:01:00 EDT, Partial fill upon patient request if the prescription is for a schedule II opioid drug. Start Date: 11/23/23 Status: Ordered Aspirin Tablet 325 mg, By Mouth, 2 times a day, Refills 0, Maintenance, 11/23/23 7:02:00 EDT, Partial fill upon patient request if the prescription is for a schedule II opioid drug. Start Date: 11/23/23 Status: Ordered atorvastatin 80 mg oral tablet 1 tablet = 80 mg, By Mouth, Daily, # 90 tablet, 3 Refills, Maintenance, 08/18/23 16:03:00 EDT, Tablet, [facility] #[id number], Partial fill upon patient request if the prescription is for a schedule II opioid drug., 183, cm, 08/09/23 10:49:00 EDT... Start Date: 08/18/23 Status: Ordered BuPROPion (Eqv-Wellbutrin SR) 150 mg/12 hours oral tablet, extended release 1 tablet = 150 mg, By Mouth, 2 times a day, # 180 tablet, 3 Refills, Maintenance, 10/05/21 17:37:00EDT, SR Tablet, [facility] #[id number], Partial fill upon patient request if the prescription is for a schedule II opioid drug., 182, cm, 09/10/21... Start Date: 10/05/21 Status: Ordered docusate sodium 100 mg oral tablet = 100 mg, By Mouth, 2 times a day, PRN as needed for constipation, # 60 tablet, 0 Refills, Maintenance, 11/23/23 6:56:00 EDT, Tablet, Partial fill upon patient request if the prescription is for a schedule II opioid drug. Start Date: 11/23/23 Stop Date: 12/23/23 Status: Ordered FLUoxetine 40 mg oral capsule 1 capsule = 40 mg, By Mouth, Daily, # 90 capsule, 3 Refills, Maintenance, 10/05/21 17:34:00 EDT, Capsule, [facility] #[id number], Partial fill upon patient request if the prescription is for a schedule II opioid drug., 182, cm, 09/10/21 8:13:00 E... Start Date: 10/05/21 Status: Ordered fluticasone 50 mcg/inh nasal spray 1 sprays = 50 mcg, Nares, Both, 2 times a day, PRN allergies, # 16 Gm, 11 Refills, Maintenance, 08/18/23 16:05:00 EDT, [place], [facility] #[id number], Partial fill upon patient request if the [...] 11 Refills, Maintenance, 08/18/23 16:04:00 EDT, Tablet, [facility] #[id number], Partial fill upon patient request if the prescription is for a schedule II opioid dr... Start Date: 08/18/23 Status: Ordered Norvasc 2.5 mg oral tablet 2.5 mg, 1, tablet, By Mouth, Daily, # 90 tablet, Refills 3, Tot. Refills 3, Maintenance, 08/18/23 16:02:00 EDT, Route to Pharmacy Electronically, [facility] #[id number], Partial fill upon patient request if the prescription is for a schedule II o... Start Date: 08/18/23 Status: Ordered omeprazole 20 mg oral enteric coated capsule 1 capsule = 20 mg, By Mouth, Daily, # 90 capsule, 3 Refills, Maintenance, 08/18/23 16:04:00 EDT, [facility] #[id number], Partial fill upon patient request if the [...] 08/18/23 16:01:00 EDT, Route to Pharmacy Electronically, [facility] #[id number] Tablet, Partial fill upon ani... Start Date: 08/18/23 Stop Date: 08/17/24 Status: Ordered traZODone 100 mg oral tablet 200 mg, 2, tablet, By Mouth, Daily at bedtime, # 180 tablet, Refills 3, Tot. Refills 3, Maintenance, 10/05/21 17:36:00 EDT, Route to Pharmacy Electronically, [facility] #[id number], Partial fillupon patient request if the prescription [...] Team Personnel Name: Wild [place] RN Position: [facility] ED RN W/OE and Tasks Member Role: Primary Care Nurse Name: Esme Garcia RN Position: [facility] RN Member Role: Primary Care Nurse Name: Erich Dias RN Position: [facility] RN Member Role: Primary Care Nurse Name: Camila Vazquez RN Position: [facility] RN Member Role: Primary Care Nurse Name: Taylor Beck RN Position: [facility] RN Member Role: Primary Care Nurse Name: Amanda Moraes RN Position: [facility] RN Member Role: Primary Care Nurse Name: Nicole Neville RN Position: [facility] RN Member Role: Primary Care Nurse Name: Mary Roberson RN Position: [facility] RN Member Role: Primary Care Nurse Name: Tomas Stauffer RN Position: [facility] RN Member Role: Primary Care Nurse Name: Balaji Mayo MD Position: [facility] Physician - Primary Care Member Role: PCP Address: Address: [address] [place] [address]- Name: Ashley Khanna RN Position: [facility] RN Member Role: Primary Care Nurse Care Team Related Persons Name: YAKOV ROSANA Address: home [address] [place] [phone] Name: GORAN QUINTERO
--- OUTSIDE RECORDS SUMMARY | 2023-12-30 12:52 | XMS_ITS | Continuity of Care Document ---
Author Organization [facility] Address [address] [facility], [address] Floor, [address] [place] [address]- Care Team Providers Care Test Director Name Role Phone Maria Esther URIAS, Balaji Quick Primary Care Physician [phone] Encounter [facility] Date(s): 11/29/22 - 12/29/22 [facility] [address], [address], [address] [place] [id number] Allergies, Adverse Reactions, Alerts Substance Reaction [...] pneumococcal 23-valent vaccine 12/17/12 Recorded 1Result Comment: [id number] 2Result Comment: [02/15/2018] 35867-049-41 3Result Comment: [08/02/2017] [facility] 01882-287-72 Medications amLODIPine 10 mg oral tablet 10 mg, 1, tablet, By Mouth, Daily, # 90 tablet, Refills 3, Tot. Refills 3, Maintenance, 10/26/22 13:35:00 EDT, Route to Pharmacy Electronically, [facility] #[id number], Partial fill upon patientrequest if the prescription is for a schedule II op... Start Date: 10/26/22 Status: Ordered Aspirin Low Dose 81 mg oral delayed release tablet 1 tablet, By Mouth, Daily, # 90 tablet, 3 Refills, Maintenance, 11/08/22 11:19:00 EDT, [facility] #[id number], 184, cm, 11/03/22 11:28:00 EDT, Height, 106.3, kg, 09/13/22 12:30:00 EDT, Dry Weight Start Date: 11/08/22 Status: Ordered atorvastatin 80 mg oral tablet 1 tablet = 80 mg, By Mouth, Daily, # 90 tablet, 3 Refills, Maintenance, 12/05/22 4:30:00 EDT, Tablet, [facility] #[id number], Partial fill upon patient request if the prescription is for a schedule II opioid drug., 183, cm, 11/10/22 17:28:00 EDT,... Start Date: 12/05/22 Status: Ordered BuPROPion (Eqv-Wellbutrin SR) 150 mg/12 hours oral tablet, extended release 1 tablet = 150 mg, By Mouth, 2 times a day, # 180 tablet, 3 Refills, Maintenance, 10/05/21 17:37:00EDT, SR Tablet, [facility] #[id number], Partial fill upon patient request if the prescription is for a schedule II opioid drug., 182, cm, 09/10/21... Start Date: 10/05/21 Status: Ordered clopidogrel 75 mg oral tablet 1, tablet, By Mouth, Daily, # 90 tablet, Refills 0, Maintenance, 10/07/22 6:36:00 EDT, Route to Pharmacy Electronically, [facility] #[id number], 184, cm, 09/28/22 9:02:00 EDT, Height, 106.3, kg,09/13/22 12:30:00 EDT, Dry Weight Start Date: 10/07/22 Status: Ordered Flonase 50 mcg/inh nasal spray 1 sprays = 50 mcg, Nares, Both, 2 times a day, # 16 Gm, 5 Refills, Maintenance, 09/15/22 8:26:00 EDT, Nasal [place], [facility] #[id number], Partial fill upon patient request if the [...] 3 Refills, Maintenance, 10/05/21 17:34:00 EDT, Capsule, [facility] #[id number], Partial fill upon patient request if the prescription is for a schedule II opioid drug., 182, cm, 09/10/21 8:13:00 E... Start Date: 10/05/21 Status: Ordered isosorbide mononitrate 30 mg oral tablet, extended release 1 tablet, By Mouth, Daily in AM, # 90 tablet, 3 Refills, Maintenance, 10/20/22 16:40:00 EDT, [facility] #[id number], 184, cm, 09/28/22 9:02:00 EDT, Height, 106.3, [...] tablet, 5 Refills, Maintenance, 09/18/22 18:55:00 EDT, [facility] #[id number], 184, cm, 09/15/22 9:12:00 EDT, Height, 106.3, kg, 09/13/22 12:30:00 EDT, Dry Weight Start Date: 09/18/22 Status: Ordered Nitrostat 0.4 mg sublingual tablet 1 tablet = 0.4 mg, Sublingual, Every 5 minutes, PRN Chest Pain, prn, # 30 tablet, 11 Refills, Maintenance, 11/30/22 6:36:00 EDT, Tablet, [facility] #[id number], Partial fill upon patient requestif the prescription is for a schedule II opioid lisa... Start Date: 11/30/22 Status: Ordered omeprazole 20 mg oral enteric coated capsule 1 capsule = 20 mg, By Mouth, Daily, # 30 capsule, 1 Refills, Maintenance, 09/28/22 9:21:00 EDT, [facility] #[id number], Partial fill upon patient request if the [...] 10/05/21 17:36:00 EDT, Route to Pharmacy Electronically, [facility] #[id number], Partial fillupon patient request if the prescription [...] Team Personnel Name: [place] RN Position: [facility] ED RN W/OE and Tasks Member Role: Primary Care Nurse Name: Erich Dias RN Position: [facility] RN Member Role: Primary Care Nurse Name: Camila Vazquez RN Position: [facility] RN Member Role: Primary Care Nurse Name: Taylor Beck RN Position: [facility] RN Member Role: Primary Care Nurse Name: Amanda Garibay RN Position: [facility] RN Member Role: Primary Care Nurse Name: Mary Roberson RN Position: [facility] RN Member Role: Primary Care Nurse Name: Tomas Stauffer RN Position: [facility] RN Member Role: Primary Care Nurse Name: Balaji Mayo MD Position: [facility] Physician - Primary Care Member Role: PCP Address: Address: [address] [place] [address]- Name: Fadumo Conti RN Position: [facility] RN Member Role: Primary Care Nurse Care Team Related Persons Name: ROSANA ANGY Address: home [address] [place] [id number] Name: GORAN QUINTERO
--- OUTSIDE RECORDS SUMMARY | 2023-12-30 12:52 | XMS_ITS | Continuity of Care Document ---
Author Organization [facility] Rico Syed Aldair lt Address [address] [place] [address]- Care Team Providers Care Counter Supply Worker Name Role Phone Maria Esther URIAS, Balaji Quick Primary Care Physician [phone] Encounter [facility] Date(s): 05/20/22 - 06/19/22 [facility] Rico Syed Adult [address] [place] [address]- Allergies, Adverse Reactions, Alerts Substance Reaction Severity [...] pneumococcal 23-valent vaccine 12/17/12 Recorded 1Result Comment: [id number] 2Result Comment: [02/15/2018] 84347-320-50 3Result Comment: [08/02/2017] [facility] 75370-363-59 Medications aspirin 81 mg oral delayed release tablet = 81 mg, By Mouth, Daily, # 90 tablet, 3 Refills, Maintenance, 10/05/21 17:34:00 EDT, EC Tablet, [facility] #[id number], Partial fill upon patient request if the prescription is for a schedule II opioid drug., 182, cm, 09/10/21 8:13:00 EDT, Heigh... Start Date: 10/05/21 Status: Ordered atorvastatin 80 mg oral tablet 1 tablet = 80 mg, By Mouth, Daily, # 90 tablet, 3 Refills, Maintenance, 10/05/21 17:34:00 EDT, Tablet, [facility] #[id number], Partial fill upon patient request if the prescription is for a schedule II opioid drug., 182, cm, 09/10/21 8:13:00 EDT,... Start Date: 10/05/21 Status: Ordered BuPROPion (Eqv-Wellbutrin SR) 150 mg/12 hours oral tablet, extended release 1 tablet = 150 mg, By Mouth, 2 times a day, # 180 tablet, 3 Refills, Maintenance, 10/05/21 17:37:00EDT, SR Tablet, [facility] #[id number], Partial fill upon patient request if the prescription is for a schedule II opioid drug., 182, cm, 09/10/21... Start Date: 10/05/21 Status: Ordered clopidogrel 75 mg oral tablet 1, tablet, By Mouth, Daily, # 90 tablet, Refills 3, Tot. Refills 3, Maintenance, 10/05/21 17:34:00 EDT, Route to Pharmacy Electronically, [facility] #[id number], 182, cm, 09/10/21 8:13:00 EDT, Height, 102.7, kg, 09/08/21 16:41:00 EDT, Dry Weight Start Date: 10/05/21 Status: Ordered Flonase 50 mcg/inh nasal spray 1 sprays = 50 mcg, Nares, Both, 2 times a day, # 16 Gm, 5 Refills, Maintenance, 09/29/20 16:49:00 EDT, Nasal [place], [facility] #[id number], Partial fill upon patient request if the prescription is for a schedule II opioid drug., 1 sprays Nares, B... Start Date: 09/29/20 Status: Ordered FLUoxetine 40 mg oral capsule 1 capsule = 40 mg, By Mouth, Daily, # 90 capsule, 3 Refills, Maintenance, 10/05/21 17:34:00 EDT, Capsule, [facility] #[id number], Partial fill upon patient request if the prescription is for a schedule II opioid drug., 182, cm, 09/10/21 8:13:00 E... Start Date: 10/05/21 Status: Ordered isosorbide mononitrate 30 mg oral tablet, extended release 1 tablet = 30 mg, By Mouth, Daily in AM, # 90 tablet, 3 Refills, 10/05/21 17:35:00 EDT, [facility] #[id number], 182, cm, 09/10/21 8:13:00 EDT, Height, 102.7, kg, 09/08/21 16:41:00 EDT, Dry Weight Start Date: 10/05/21 Status: Ordered lamotrigine 25 mg oral tablet 100 mg, 4, tablet, By Mouth, 2 times a day, # 720 tablet, Refills 3, Tot. Refills 3, Maintenance, 10/06/21 14:57:00 EDT, Route to Pharmacy Electronically, [facility] #[id number], Partial fill upon patient request if the prescription is for a sche... Start Date: 10/06/21 Stop Date: 10/01/22 Status: Ordered lidocaine 5% topical film 1 patch, Topically, Daily, PRN Pain , Mild, remove after 12 hours, # 30 patch, 11 Refills, Maintenance, 02/20/21 7:32:00 EDT, [facility], [facility], Partial fill upon patient request if the prescription is for a schedule II opioid drug., 1 patch T... Start Date: 02/20/21 Status: Ordered metoprolol 25 mg oral tablet 25 mg, 1, tablet, By Mouth, 2 times a day, increase in dose, # 60 tablet, Refills 2, Tot. Refills 2, Maintenance, 06/06/22 14:13:00 EST, Route to Pharmacy Electronically, [facility] #[id number],Partial fill upon patient request if the prescripti... Start Date: 06/06/22 Status: Ordered traZODone 100 mg oral tablet 200 mg, 2, tablet, By Mouth, Daily at bedtime, # 180 tablet, Refills 3, Tot. Refills 3, Maintenance, 10/05/21 17:36:00 EDT, Route to Pharmacy Electronically, [facility] #[id number], Partial fillupon patient request if the prescription [...] Team Personnel Name: Wild Woods RN Position: [facility] ED RN W/OE and Tasks Member Role: Primary Care Nurse Name: Camila Vazquez RN Position: [facility] RN Member Role: Primary Care Nurse Name: Amanda Garibay RN Position: [facility] RN Member Role: Primary Care Nurse Name: Mary Roberson RN Position: [facility] RN Member Role: Primary Care Nurse Name: Tomas Stauffer RN Position: [facility] RN Member Role: Primary Care Nurse Name: Balaji aMyo MD Position: [facility] Primary Care Physician Member Role: PCP Address: Address: [address] [place] [id number]- [place] Care Team Related Persons Name: ROSANA NAGY Address: home [address] [place] [id number] Name: GORAN QUINTERO
--- OUTSIDE RECORDS SUMMARY | 2023-12-30 12:52 | XMS_ITS | Continuity of Care Document ---
Author Organization [facility] Rico Syed Aldair lt Address [address] [place] [address]- Care Team Providers Care Overnight Stocker Name Role Phone Maria Esther URIAS, Balaji Quick Primary Care Physician Encounter [facility] Date(s): 05/01/23 - 05/31/23 [facility] Rico Syed Adult [address] [place] [address]- Allergies, Adverse Reactions, Alerts Substance Reaction Severity [...] 23-valent vaccine 12/17/12 Recorded 1Result Comment: [02/15/2018] 82928-546-47 2Result Comment: [id number] 3Result Comment: [08/02/2017] [facility] [id number] Medications Aspirin Low Dose 81 mg oral delayed release tablet 1 tablet, By Mouth, Daily, # 90 tablet, 3 Refills, Maintenance, 11/08/22 11:19:00 EDT, [facility] #[id number], 184, cm, 11/03/22 11:28:00 EDT, Height, 106.3, kg, 09/13/22 12:30:00 EDT, Dry Weight Start Date: 11/08/22 Status: Ordered atorvastatin 80 mg oral tablet 1 tablet = 80 mg, By Mouth, Daily, # 90 tablet, 3 Refills, Maintenance, 12/05/22 4:30:00 EDT, Tablet, [facility] #[id number], Partial fill upon patient request if the prescription is for a schedule II opioid drug., 183, cm, 11/10/22 17:28:00 EDT,... Start Date: 12/05/22 Status: Ordered BuPROPion (Eqv-Wellbutrin SR) 150 mg/12 hours oral tablet, extended release 1 tablet = 150 mg, By Mouth, 2 times a day, # 180 tablet, 3 Refills, Maintenance, 10/05/21 17:37:00EDT, SR Tablet, [facility] #[id number], Partial fill upon patient request if the prescription is for a schedule II opioid drug., 182, cm, 09/10/21... Start Date: 10/05/21 Status: Ordered clopidogrel 75 mg oral tablet 1, tablet, By Mouth, Daily, # 90 tablet, Refills 3, Maintenance, 01/13/23 16:50:00 EDT, Route to Pharmacy Electronically, [facility] #[id number], 183, cm, 12/05/22 16:08:00 EDT, Height, 106.3, kg, 09/13/22 12:30:00 EDT, Dry Weight Start Date: 01/13/23 Status: Ordered Flonase 50 mcg/inh nasal spray 1 sprays = 50 mcg, Nares, Both, 2 times a day, # 16 Gm, 5 Refills, Maintenance, 09/15/22 8:26:00 EDT, Nasal [place], [facility] #[id number], Partial fill upon patient request if the prescription is for a schedule II opioid drug., 1 sprays Nares, [place]... Start Date: 09/15/22 Status: Ordered FLUoxetine 40 mg oral capsule 1 capsule = 40 mg, By Mouth, Daily, # 90 capsule, 3 Refills, Maintenance, 10/05/21 17:34:00 EDT, Capsule, [facility] #[id number], Partial fill upon patient request if the [...] 11 Refills, Maintenance, 11/30/22 6:36:00 EDT, Tablet, [facility] #[id number], Partial fill upon patient requestif the prescription [...] capsule, 1 Refills, Maintenance, 09/28/22 9:21:00 EDT, [facility] #[id number], Partial fill upon patient request if the [...] 10/05/21 17:36:00 EDT, Route to Pharmacy Electronically, [facility] #[id number], Partial fillupon patient request if the prescription [...] by Discern Expert 2repeat screening colonoscopy in 2022 Social History Social History Type Response Smoking Status Current some day smo ker entered on: 02/15/18 Sex Patient Care team information Care Team Personnel Name: Wild Woods RN Position: [facility] ED RN W/OE and Tasks Member Role: Primary Care Nurse Name: Esme Garcia RN Position: [facility] RN Member Role: Primary Care Nurse Name: Ercih Dias RN Position: [facility] RN Member Role: Primary Care Nurse Name: Camila Vazquez RN Position: [facility] RN Member Role: Primary Care Nurse Name: Taylor Beck RN Position: [facility] RN Member Role: Primary Care Nurse Name: Amanda Garibay RN Position: [facility] RN Member Role: Primary Care Nurse Name: Mary Roberson RN Position: [facility] RN Member Role: Primary Care Nurse Name: Tomas Stauffer RN Position: [facility] RN Member Role: Primary Care Nurse Name: Balaji Mayo MD Position: [facility] Physician - Primary Care Member Role: PCP Address: Address: [address] [place] [phone]- [place] Care Team Related Persons Name: ROSANA NAGY Address: home [address] [place] [address] Name: GORAN QUINTERO
--- OUTSIDE RECORDS SUMMARY | 2023-12-30 12:52 | XMS_ITS | Continuity of Care Document ---
Author Organization [facility] Rico Syed Aldair lt Address [address] [place] [address]- Care Team Providers Care Parts Analyst Name Role Phone Maria Esther URIAS, Balaji Quick Primary Care Physician [phone] Encounter [facility] Date(s): 07/21/23 - 09/03/23 [facility] Rico Chaoley Adult [address] [place] [address]- Attending Physician: Balaji Mayo MD Allergies, Adverse [...] 23-valent vaccine 12/17/12 Recorded 1Result Comment: [02/15/2018] 27985-916-02 2Result Comment: [id number] 3Result Comment: [08/02/2017] [facility] 43902-772-74 Medications Aspirin Low Dose 81 mg oral delayed release tablet 1 tablet, By Mouth, Daily, # 90 tablet, 3 Refills, Maintenance, 11/08/22 11:19:00 EDT, [facility] #[id number], 184, cm, 11/03/22 11:28:00 EDT, Height, 106.3, kg, 09/13/22 12:30:00 EDT, Dry Weight Start Date: 11/08/22 Status: Ordered atorvastatin 80 mg oral tablet 1 tablet = 80 mg, By Mouth, Daily, # 90 tablet, 3 Refills, Maintenance, 08/18/23 16:03:00 EDT, Tablet, [facility] #[id number], Partial fill upon patient request if the prescription is for a schedule II opioid drug., 183, cm, 08/09/23 10:49:00 EDT... Start Date: 08/18/23 Status: Ordered BuPROPion (Eqv-Wellbutrin SR) 150 mg/12 hours oral tablet, extended release 1 tablet = 150 mg, By Mouth, 2 times a day, # 180 tablet, 3 Refills, Maintenance, 10/05/21 17:37:00EDT, SR Tablet, [facility] #[id number], Partial fill upon patient request if the prescription is for a schedule II opioid drug., 182, cm, 09/10/21... Start Date: 10/05/21 Status: Ordered clopidogrel 75 mg oral tablet 1, tablet, By Mouth, Daily, # 90 tablet, Refills 3, Tot. Refills 3, Maintenance, 08/18/23 16:03:00 EDT, Route to Pharmacy Electronically, [facility] #[id number], 183, cm, 08/09/23 10:49:00 EDT, Height, 107, kg, 01/26/23 19:57:00 EDT, Dry Weight Start Date: 08/18/23 Status: Ordered FLUoxetine 40 mg oral capsule 1 capsule = 40 mg, By Mouth, Daily, # 90 capsule, 3 Refills, Maintenance, 10/05/21 17:34:00 EDT, Capsule, [facility] #[id number], Partial fill upon patient request if the prescription is for a schedule II opioid drug., 182, cm, 09/10/21 8:13:00 E... Start Date: 10/05/21 Status: Ordered fluticasone 50 mcg/inh nasal spray 1 sprays = 50 mcg, Nares, Both, 2 times a day, PRN allergies, # 16 Gm, 11 Refills, Maintenance, 08/18/23 16:05:00 EDT, [place], [facility] #[id number], Partial fill upon patient request if the [...] 11 Refills, Maintenance, 08/18/23 16:04:00 EDT, Tablet, [facility] #[id number], Partial fill upon patient request if the prescription is for a schedule II opioid dr... Start Date: 08/18/23 Status: Ordered Norvasc 2.5 mg oral tablet 2.5 mg, 1, tablet, By Mouth, Daily, # 90 tablet, Refills 3, Tot. Refills 3, Maintenance, 08/18/23 16:02:00 EDT, Route to Pharmacy Electronically, [facility] #[id number], Partial fill upon patient request if the prescription is for a schedule II o... Start Date: 08/18/23 Status: Ordered omeprazole 20 mg oral enteric coated capsule 1 capsule = 20 mg, By Mouth, Daily, # 90 capsule, 3 Refills, Maintenance, 08/18/23 16:04:00 EDT, [facility] #[id number], Partial fill upon patient request if the [...] 08/18/23 16:01:00 EDT, Route to Pharmacy Electronically, [facility] #[id number] Tablet, Partial fill upon ani... Start Date: 08/18/23 Stop Date: 08/17/24 Status: Ordered traZODone 100 mg oral tablet 200 mg, 2, tablet, By Mouth, Daily at bedtime, # 180 tablet, Refills 3, Tot. Refills 3, Maintenance, 10/05/21 17:36:00 EDT, Route to Pharmacy Electronically, [facility] #[id number], Partial fillupon patient request if the prescription [...] Care Nurse Name: Esme Garcia RN Position: [facility] RN Member Role: Primary Care Nurse Name: Erich Dias RN Position: [facility] RN Member Role: Primary Care Nurse Name: Camila Vazquez RN Position: [facility] RN Member Role: Primary Care Nurse Name: Taylor Beck RN Position: [facility] RN Member Role: Primary Care Nurse Name: Amanda Moraes RN Position: [facility] RN Member Role: Primary Care Nurse Name: Mary Roberson RN Position: [facility] RN Member Role: Primary Care Nurse Name: Tomas Stauffer RN Position: [facility] RN Member Role: Primary Care Nurse Name: Balaji Mayo MD Position: [facility] Physician - Primary Care Member Role: PCP Address: Address: [address] [place] [phone]- [place] Care Team Related Persons Name: YAKOVROSANA Address: home [address] [place] [id number] Name: GORAN QUINTERO
--- OUTSIDE RECORDS SUMMARY | 2023-12-30 12:52 | XMS_ITS | Continuity of Care Document ---
Author Organization [facility] ter Address [address] [place] [id number] Care Team Providers Care Manager Customs Name Role Phone Maria Esther URIAS, Balaji Quick Primary Care Physician Encounter [facility] [place] Date(s): 09/13/22 - 09/15/[address] [id number] Discharge Disposition: A-D/C Home Attending Physician: Pattie Packer MD Admitting Physician: Bing Salas MD Referring Physician: Bing Salas MD Allergies, Adverse Reactions, Alerts Substance Reaction [...] pneumococcal 23-valent vaccine 12/17/12 Recorded 1Result Comment: [id number] 2Result Comment: [02/15/2018] [id number] 3Result Comment: [08/02/2017] [facility] [id number] Medications amLODIPine 10 mg oral tablet 10 mg, 1, tablet, By Mouth, Daily, # 30 tablet, Refills 0, Tot. Refills 0, Maintenance, 09/15/22 8:28:00 EDT, Route to Pharmacy Electronically, [facility] #[id number], Partial fill upon patient request if the prescription is for a schedule II opi... Start Date: 09/15/22 Status: Ordered amLODIPine 10 mg oral tablet 10 mg, Tablet, By Mouth, 09/15/22 9:00:00 EDT Start Date: 09/15/22 Stop Date: 09/15/22 Status: Completed aspirin 81 mg oral delayed release tablet = 81 mg, By Mouth, Daily, # 90 tablet, 3 Refills, Maintenance, 10/05/21 17:34:00 EDT, EC Tablet, [facility] #[id number], Partial fill upon patient request if the prescription is for a schedule II opioid drug., 182, william, 09/10/21 8:13:00 EDT, Heigh... Start Date: 10/05/21 Status: Ordered atorvastatin 80 mg oral tablet 1 tablet = 80 mg, By Mouth, Daily, # 90 tablet, 3 Refills, Maintenance, 10/05/21 17:34:00 EDT, Tablet, [facility] #[id number], Partial fill upon patient request if the prescription is for a schedule II opioid drug., 182, cm, 09/10/21 8:13:00 EDT,... Start Date: 10/05/21 Status: Ordered BuPROPion (Eqv-Wellbutrin SR) 150 mg/12 hours oral tablet, extended release 1 tablet = 150 mg, By Mouth, 2 times a day, # 180 tablet, 3 Refills, Maintenance, 10/05/21 17:37:00EDT, SR Tablet, [facility] #[id number], Partial fill upon patient request if the prescription is for a schedule II opioid drug., 182, cm, 09/10/21... Start Date: 10/05/21 Status: Ordered clopidogrel 75 mg oral tablet 1, tablet, By Mouth, Daily, # 90 tablet, Refills 3, Tot. Refills 3, Maintenance, 10/05/21 17:34:00 EDT, Route to Pharmacy Electronically, [facility] #[id number], 182, cm, 09/10/21 8:13:00 EDT, Height, 102.7, kg, 09/08/21 16:41:00 EDT, Dry Weight Start Date: 10/05/21 Status: Ordered Flonase 50 mcg/inh nasal spray 1 sprays = 50 mcg, Nares, Both, 2 times a day, # 16 Gm, 5 Refills, Maintenance, 09/15/22 8:26:00 EDT, Nasal [place], [facility] #[id number], Partial fill upon patient request if the [...] 3 Refills, Maintenance, 10/05/21 17:34:00 EDT, Capsule, [facility] #[id number], Partial fill upon patient request if the prescription is for a schedule II opioid drug., 182, cm, 09/10/21 8:13:00 E... Start Date: 10/05/21 Status: Ordered isosorbide mononitrate 60 mg oral tablet, extended release 60 mg, 1, tablet, By Mouth, Daily in AM, do not crush or chew. This is an increased dose., # 30 tablet, Refills 0, Tot. Refills 0, Maintenance, 09/15/22 8:27:00 EDT, Route to Pharmacy Electronically,[facility] #[id number], Partial fill upon pa... Start Date: 09/15/22 Status: Ordered lamotrigine 100 mg oral tablet 100 mg, 1, tablet, By Mouth, 2 times a day, Maintenance, 09/13/22 17:08:00 EDT, Partial fill upon patient request if the prescription is for a schedule II opioid drug. Start Date: 09/13/22 Status: Ordered metoprolol 25 mg oral tablet 25 mg, 1, tablet, By Mouth, 2 times a day, increase in dose, # 60 tablet, Refills 2, Tot. Refills 2, Maintenance, 06/06/22 14:13:00 EST, Route to Pharmacy Electronically, [facility] #[id number],Partial fill upon patient request if the prescripti... Start Date: 06/06/22 Status: Ordered metoprolol 25 mg oral tablet 25 mg, Tablet, By Mouth, Hold for: HR < 55, 09/15/22 9:00:00 EDT Start Date: 09/15/22 Stop Date: 09/15/22 Status: Completed Nitrostat 0.4 mg sublingual tablet 1 tablet = 0.4 mg, Sublingual, Every 5 minutes, prn, 0 Refills, Maintenance, 06/29/22 15:48:00 EST,Partial fill upon patient request if the prescription is for a schedule II opioid drug. Start Date: 06/29/22 Status: Ordered QUEtiapine 400 mg oral tablet, [...] 10/05/21 17:36:00 EDT, Route to Pharmacy Electronically, [facility] #[id number], Partial fillupon patient request if the prescription [...] oldest [Reference Range]: 1 2 3 Height 184 cm (09/15/22 9:12 AM) 184 cm (09/15/22 1:06 AM) 184 cm (09/14/22 7:16 PM) Weight 106.6 kg (09/15/22 5:07 AM) 106.4 kg (09/14/22 5:20 AM) 106.1 kg (09/13/22 12:30 PM) Oxygen Saturation [94-100 %] 96 % (09/15/22 9:12 AM) 96 % (09/15/22 1:06 AM) 96 % (09/14/22 7:16 PM) Pulse Rate [55-90 bpm] 71 bpm (09/15/22 9:12 AM) 71 bpm (09/15/22 9:07 AM) 56 bpm (09/15/22 1:06 AM) Body Mass Index [18.5-24.99 kg/m2] 31.34 kg/m2 *>HHI* (09/13/22 12:30 PM) Blood Pressure [90-138/55-84 mm Hg] 136/71mm Hg (09/15/22 9:12 AM) 136/71mm Hg (09/15/22 9:07 AM) 136/71mm Hg (09/15/22 9:07 AM) Respiratory Rate [16-30 br/min] 18 br/min (09/15/22 9:12 AM) 20 br/min (09/15/22 1:06 AM) 20 br/min (09/14/22 7:16 PM) Temperature [96.8-100.4 DegF] 96.9 DegF (09/15/22 9:12 AM) 97.1 DegF (09/15/22 1:06 AM) 97.1 DegF (09/14/22 7:16 PM) Mode of Delivery (Oxygen) Room air (09/15/22 9:12 AM) Room air (09/15/22 1:06 AM) Room air (09/14/22 7:16 PM) Blood pressure sites Leg, right (09/15/22 9:12 AM) Arm, right (09/15/22 1:06 AM) Arm, right (09/14/22 7:16 PM) Temperature Route Oral (09/15/22 9:12 AM) Temporal (09/15/22 1:06 AM) Temporal (09/14/22 7:16 PM) Dry Weight 106.3 kg (09/13/22 12:30 PM) Weight Obtained Via Bed scale (09/15/22 5:07 AM) Bed scale (09/14/22 5:20 AM) Bed scale (09/13/22 12:30 PM) Dry Weight Obtained Via Patient/family stated (09/13/22 12:30 PM) Social History Social History Type Response Smoking Status Current some day smo ker entered on: 02/15/18 Sex History and physical note * Jaylin URIAS, Holger Dewitt: MODIFY, PERFORM Event Display: History and Physical Hospital Authored Date: Patient: ??ALIYA NAGY ? Age:??67 Years?Sex:??Male?:??1955?? Chief Complaint/Reason for Consultation Transfer from [facility] with ongoing chest pain, uncontrolled hypertension History of Present Illness 67-year-old male with history of coronary artery disease, status post LAD stent in 2010 and restenosis with PCI and 2 overlapping stents in 2020, post- procedural CVA,??peripheral vascular disease (carotid artery stenosis, subclavian stenosis, abdominal aortic aneurysm, and renal artery stenosis), hy pertension, hyperlipidemia, chronic kidney disease stage III, BPH, GERD, obesity, and schizoaffective disorder who presented to [facility] complaining of 3 days of constant midsternal chest pain.?? Prior to presenting to the hospital, he was using nitroglycerin??several times,??with transient relief of the pain lasting 15 to 20 minutes.?? He described the pain as midsternal, radiating to the left shoulder,??occurring at rest,??and not related to any exacerbating factors.?? There did not seem to be relation to eating or position.?? He reported chronic shortness of breath. ??No palpitations.?? No vomiting, abdominal pain, diarrhea,??or urinary symptoms.?? No lower extremity edema. ?? At [facility],??the patient was noted to be afebrile and hemodynamically stable,??with pulse oximetry 98% on room air.?? Initial??blood pressure was 162/82.?? EKG did not show any acute ischemic changes. ??Chest x- ray was described as unremarkable.?? High-sensitivity troponin values were ne gative,??between 9 and 14.?? Creatinine was stable at??1.8.?? He was noted to have??uncontrolled blood pressures??with repeated episodes of chest pain,??at 1 point blood pressure as high as 222/99.??Nitroglycerin would??result in??transient pain relief.?? He was seen by cardiology,??and it??was felt that his pain??was likely anginal and could be related to uncontrolled blood pressure.?? He was started on amlodipine??10 mg daily, in addition to his??previous isosorbide and metoprolol tartrate.?? He was continued on aspirin, Plavix, and statin.?? He was treated with intermittent IV hydralazinefor uncontrolled blood pressure,??and intermittent morphine for his chest pain.?? He was started onheparin drip.?? He has been transferred here to [facility] for cardiology evaluation??for potential cardiac catheterization. Review of Systems Other than those positives as noted in the HPI above, the remaining comprehensive 14-point review of systems is negative. Objective Measurements?? Height: 184 cm (09/13/22) Weight: 106.1 kg (09/13/22) Dry Weight: 106.3 kg (09/13/22) Body Mass Index:??31.34 kg/m2??Critical (09/13/22) ? Vital Signs?? Temperature: 98.1 DegF (09/13/22 12:30:00) Temperature Route: Temporal (09/13/22 12:30:00) Pulse Rate:??52 bpm??Low (09/13/22 12:30:00) Respiratory Rate: 18 br/min (09/13/22 12:30:00) Systolic Blood Pressure:??186 mm Hg??High (09/13/22 12:30:00) Diastolic Blood Pressure:??85 mm Hg??High (09/13/22 12:30:00) Blood pressure sites: Arm, right (09/13/22 12:30:00) Mean Arterial Pressure: 119 mm Hg (09/13/22 12:30:00) Pulse Pressure: 101 mm Hg (09/13/22 12:30:00) Oxygen Saturation: 100 % (09/13/22 12:30:00) Mode of Delivery (Oxygen): Room air (09/13/22 12:30:00) Early Warning Score: 0 (09/13/22 12:32:26) ? Pain Scores?? No qualifying data available. ? Physical Exam General Appearance: Alert, appears stated age, answers questions appropriately but poor historian HEENT: Normocephalic, atraumatic, PERRL, EOMI, no scleral icterus, no facial droop, moist mucous membranes Neck: Supple, no JVD, right carotid bruit Cardiac: RRR, S1 & S2 present, no m / r / g appreciated Chest: Clear to auscultation bilaterally, no wheezing / ronchi / rales Abdomen: Soft, nontender, obese, no rebound or guarding, no masses, normal bowel sounds in all quadrants Extremities: No clubbing, cyanosis, or edema.?1+ distal pulses.?No calf tenderness or cords Skin: Warm, dry Neuro: ??A & O x 3, no focal motor or sensory deficits Psych: ??Stable mood, no agitation Assessment/Plan Assessment:??67-year-old male with history of coronary artery disease, status post LAD stent in 2010 and restenosis with PCI and 2 overlapping stents in 2020,??post-procedural CVA,??peripheral vascular disease (carotid artery stenosis, subclavian stenosis, abdominal aortic aneurysm, and renal artery stenosis), hypertension, hyperlipidemia, chronic kidney disease stage III, BPH, GERD, obesity, andschizoaffective disorder who presented to [facility] complaining of 3 days of constant midsternal chest pain.??He has had recurrent pain with intermittent relief from nitroglycerin, and??uncontrolled blood pressure.??Work-up was negative for NSTEMI.??After discussion with cardiology, he was transferred here to [facility]??for further evaluation for possible cardiac catheterization. ?? Chest pain (R07.9) Hypertensive urgency (I16.0) Coronary artery disease (I25.10):??The patient??does endorse some low-grade (1- 2)??chest pain at the time of my evaluation,??which appears to be reproducible??with palpation of the sternum.??His blood pressure notably is 186/85 at this time.??He is not tachycardic. He does not have respiratory distr ess or hypoxia. He appears euvolemic on exam.??No evidence for arrhythmia.??He does not have bronchospasm.??Work-up at [facility]??did not show any acute ischemic EKG changes??with sinus bradycardia.??His high-sensitivity troponin values??were essentially negative at 9 and 14, respectively.??Echocardiogram was obtained showing EF at 65%, LVH,??possible basal inferior hypokinesis,??normal RVfunction,??and left atrial??severe dilation.??There was no other significant valvular disease.??I suspect his ongoing chest pain is??noncardiac in nature,??and possibly related to??uncontrolled hypertension / hypertensive urgency.??Given his comorbidities, I cannot completely rule out unstable angin a.??Heparin drip has been discontinued. 1.??Admit to the medical floor,??continuous EKG monitoring 2.??Increase home??isosorbide mononitrate to 60 mg daily 3.??Continue amlodipine 10 mg daily as started at [facility] 4.??Continue??metoprolol??as prescribed??with holding parameters for heart rate less than 55 5.??Hydralazine 10 mg IV every 4 hours as needed for systolic blood pressure greater than 180 or diastolic blood pressure greater than 100; ? transition to scheduled??oral dosage 6.??Continue aspirin, Plavix, and atorvastatin as prescribed 7.??Nitroglycerin sublingual as needed for recurrent pain;??morphine 2 mg IV every 3 hours as needed??for pain not relieved by nitroglycerin 8.??Cardiology consultation??appreciated;??cardiac catheterization is not planned??urgently??and lory be allowed to have a cardiac prudent diet ?? CKD (chronic kidney disease) stage 3, GFR 30-59 ml/min (N18.30):??Creatinine noted to be 1.8 at [facility]. This appears to be around his baseline since October 2021. He has known renal artery stenosis??with prior stenting??on the??left.?? Renal duplex in January 2022 showed patent right renal artery, and 60% stenosis of the left renal artery. Depending on blood pressure control, we may need to consider??repeat renal duplex??and nephrology consultation. Monitor metabolic panel. ?? Bipolar disorder (F31.9):??The patient??scores??6 on [facility] suicide screening protocol per nursing intake. He does not express any current suicidal plan. We will keep him on suicide precautions and consult psychiatry. For now, continue bupropion, fluoxetine, lamotrigine, Seroquel, and trazodone. ?? VTE Prophylaxis:??Heparin subcu 5000 units 3 times daily. ?VTE Prophylaxis Assessment:??VTE Prophylaxis Ordered ?? Code Status:??FULL. ?Order Code Status:??Code Status Ordered ?? Discharge Planning:??Disposition pending; anticipate 2 to 3 days hospitalization. ?? I spent a total of??88 minutes today reviewing the chart / medical records, evaluating the patient,evaluating and interpreting laboratory and imaging data, formulating and discussing the treatment plan, and documenting the encounter. ? Histories Allergies Allergies ?(Active and Proposed Allergies Only) Vistaril? (Severity: Unknown severity, Onset: Unknown) Nuts? (Severity: Unknown severity, Onset: Unknown) Nicotine Patch? (Severity: Unknown severity, Onset: Unknown) Abilify? (Severity: Unknown severity, Onset: Unknown) Claritin? (Severity: Unknown severity, Onset: Unknown) Benadryl? (Severity: Unknown severity, Onset: Unknown) Clozaril? (Severity: Unknown severity, Onset: Unknown) ? Past Medical History/Problem List Active Problems??(22) AAA (abdominal aortic aneurysm) Bipolar disorder BPH (benign prostatic hyperplasia) Carotid artery stenosis Chest pain CKD (chronic kidney disease) stage 3, GFR 30-59 ml/min COVID-19 Degenerative joint disease (DJD) of hip Essential hypertension Gastroesophageal reflux disease HTN (hypertension) Hyperglycemia Hyperlipidemia Nondependent cannabis abuse in remission Obese class I Peripheral vascular disease Pulmonary nodule Renal artery stenosis Schizoaffective schizophrenia Stenosis of left subclavian artery Tobacco use Tubular adenoma of colon ? Past Surgical History Colonoscopy: 06/22/18 Esophagogastroduodenoscopy and biopsy: 06/22/18 TURP - Transurethral resection of prostate ? Social History Alcohol Details:??Use: Current. ??Frequency: 1-2 times per year. Employment/School Comment(s):??stays at home. ??VNA helps administer his medications. ??Shirley at [facility] [phone] Exercise Details:??Self assessment: Poor condition. Home/Environment Details:??Living situation: Home with assistance. Nutrition/Health Details:??Diet: Regular. Substance Abuse Details:??Use: Never. Tobacco Details:??Current some day smoker, Tobacco user in household: No. ??Other: pt states that he??smokes a few cigars occasionally. ? Family History Mother: CAD - Coronary artery disease; Hyperlipidemia; Hypertension Father: CAD - Coronary artery disease; Hyperlipidemia; Hypertension ? Medications Home Medications Aspirin (aspirin 81 mg oral delayed release tablet)?81?Milligram?By Mouth?Daily Atorvastatin (atorvastatin 80 mg oral tablet)?1?tab(s)?80?Milligram?By Mouth?Daily BuPROpion (BuPROPion (Eqv-Wellbutrin SR) 150 mg/12 hours oral tablet, extended release)?1?tab(s)?150?Milligram?By Mouth?2 times a day Clopidogrel (clopidogrel 75 mg oral tablet)?1?tablet?By Mouth?Daily Fluoxetine (FLUoxetine 40 mg oral capsule)?1?capsule?40?Milligram?By Mouth?Daily Fluoxetine (FLUoxetine 10 mg oral capsule)?10?Milligram?1?capsule?By Mouth?Daily Fluticasone Nasal (Flonase 50 mcg/inh nasal spray)?1?spray(s)?50?Microgram?Nares, Both?2 times a day Isosorbide Mononitrate (isosorbide mononitrate 30 mg oral tablet, extended release)?1?tab(s)?30?Milligram?By Mouth?Daily in AM Lamotrigine (lamotrigine 100 mg oral tablet)?100?Milligram?1?tablet?By Mouth?2 times a day Metoprolol (metoprolol 25 mg oral tablet)?25?Milligram?1?tablet?By Mouth?2 times a day?increase in dose Nitroglycerin (Nitrostat 0.4 mg sublingual tablet)?1?tab(s)?0.4?Milligram?Sublingual?Every 5 minutes?prn Quetiapine (QUEtiapine 400 mg oral tablet, extended release)?400?Milligram?1?tablet?By Mouth?Daily at bedtime Trazodone (traZODone 100 mg oral tablet)?200?Milligram?2?tablet?By Mouth?Daily atbedtime ? Cardiology * Event Display: Stress Nuc with Regadenoson Authored Date: Please click on pdf link to open report * Event Display: Cardiac Rhythm Strips Authored Date: Hospital Progress note * Destinee HYATT, Daisy Mariano: PERFORM Event Display: Progress Note Hospital Authored Date: Patient: ??ALIYA NAGY ? Age:??67 Years?Sex:??Male?:??1955?? Indication for Consult Transfer from [facility] with ongoing chest pain, uncontrolled hypertension History of Present Illness/Interval History Denies any complaints. Awaiting discharge ?? Telemetry: SB 50s Physical Exam Vitals & Measurements T:??96.9?F?? HR:??71??(Peripheral)?? RR:??18?? BP:??136/71?? SpO2:??96%?? HT:??184??cm?? WT:??106.6??kg?? BMI:??31.34?? Weight lb/oz: 235 lb 0 oz General appearance: WDWN, no acute distress, resting comfortably?? HEENT: NCAT,??negative JVD Respiratory: easy respiratory effort, lungs are clear Cardiac: S1S2, heart rate regular, no murmurs/heaves/rubs/gallops Abdomen round, soft, non-tender, +bowel sounds x4 quadrants, no HSM appreciated?? Extremities:?? no edema, skin is warm Neurologic: alert and oriented x3, grossly normal Mood and Affect: calm Integument no rashes , dry and intact, warm Assessment/Plan Patient is a very pleasant 67-year-old gentleman with a history of coronary artery disease status post prior LAD stent in 2010 with restenosis in 2010 undergoing 2 overlapping drug-eluting stents procedure was complicated by postprocedural stroke MRI showed embolic watershed strokes. ??He previously underwent stress testing in June 2020 which showed no ischemia. ??He does have a history of vascular disease and is followed by vascular for left subclavian stenosis, total right carotid occlusion,abdominal aortic aneurysm, renal artery stenosis with prior stenting. ??Recent duplex showed patentright renal stent. ??He presented to [facility] with 3 days of constant chest discomfort lasting 10 to 20 minutes. ??High-sensitivity troponin emergency department was 9. ??EKG showed no acute ischemic changes. ??He was transferred to [facility]. ??He underwent nuclear stress testing yesterday which was negative for ischemia. ??He was noted to have elevated blood pressures which have been controlled by restarting his antihypertensives. ??He denies any recurrence of his chest discomfort. ?Thank you for allowing us to participate in this patient's care. ??We will continue to follow him as an outpatient. ??Please feel free to call with any questions or concerns. Problem List/Past Medical History Ongoing AAA (abdominal aortic aneurysm) Bipolar disorder BPH (benign prostatic hyperplasia) Carotid artery stenosis Chest pain CKD (chronic kidney disease) stage 3, GFR 30-59 ml/min COVID-19 Degenerative joint disease (DJD) of hip Essential hypertension Gastroesophageal reflux disease HTN (hypertension) Hyperglycemia Hyperlipidemia Nondependent cannabis abuse in remission Obese class I Peripheral vascular disease Pulmonary nodule Renal artery stenosis Schizoaffective schizophrenia Stenosis of left subclavian artery Tobacco use Tubular adenoma of colon Procedure/Surgical History Colonoscopy: 06/22/18 Esophagogastroduodenoscopy and biopsy: 06/22/18 TURP - Transurethral resection of prostate [facility] Medications Medications (21) Active SCHEDULED: (13) Amlodipine 10 mg Tablet (amLODIPine 10 mg oral tablet) ??10 mg, By Mouth, Daily Aspirin 81 mg EC Tablet (aspirin 81 mg oral delayed release tablet) ??81 mg, By Mouth, Daily Atorvastatin 80 mg Tablet (atorvastatin 80 mg oral tablet) ??80 mg, By Mouth, Daily BuPROPion 150 mg SR Tablet (BuPROpion SR Tablet) ??150 mg, By Mouth, 2 times a day Clopidogrel 75 mg Tablet (clopidogrel 75 mg oral tablet) ??75 mg, By Mouth, Daily Fluoxetine 10 mg Capsule (FLUoxetine 10 mg oral capsule) ??10 mg, By Mouth, Daily Fluoxetine 20 mg Capsule (FLUoxetine 20 mg oral capsule) ??40 mg, By Mouth, Daily Heparin 5000 units/mL Inj (1 mL) (Heparin Inj) ??5,000 units 1 mL, Subcutaneous Injection, 3 times a day Isosorbide Mononitrate 30 mg ER Tablet (Imdur 30 mg oral tablet, extended release) ??60 mg, By Mouth, Daily LamoTRIGINE 100 mg Tablet (lamotrigine 100 mg oral tablet) ??100 mg, By Mouth, 2 times a day Metoprolol 25mg Tablet (metoprolol 25 mg oral tablet) ??25 mg, By Mouth, 2 times a day Quetiapine 400mg XR Tablet (QUEtiapine 400 mg oral tablet, extended release) ??400 mg, By Mouth, Daily at bedtime Trazodone 50 mg Tablet (traZODone 50 mg oral tablet) ??200 mg, By Mouth, Daily at bedtime CONTINUOUS: (0) PRN: (8) Acetaminophen 325 mg Tablet (Acetaminophen Tablet) ??650 mg, By Mouth, Every 4 hours hydrALAZINE 20 mg/mL Inj (hydrALAZINE Inj) ??10 mg 0.5 mL, IV Push Slowly, Every 4 hours Melatonin 3 mg Tablet (Melatonin Tablet) ??3 mg, By Mouth, Daily at bedtime MorPHINE 2 mg Inj Syringe (MorPHINE Inj) ??2 mg, IV Push Slowly, Every 3 hours NaCl 0.9% Flush 3ml (NaCL 0.9% Flush) ??3 mL, IV Push, Every 8 hours Nitroglycerin 0.4 mg Sublingual Tablet (nitroglycerin 0.4 mg sublingual tablet) ??0.4 mg, Sublingual, Every 5 minutes Polyethylene Glycol 17 Gm Powder (MiraLax Powder) ??17 Gm 1 pack/packet, By Mouth, Daily Senna 8.6 mg / Docusate 50 mg tablet (Docusate/Senna Tablet) ??1 tablet, By Mouth, 2 times a day Patient Education Titles Isosorbide Extended Release Oral Tablet?? Understanding Coronary Artery Disease (CAD)?? Amlodipine Oral Tablet?? Discharge Instructions for High Blood Pressure (Hypertension)?? Depression?? Follow-Up Appointments Added Follow Up ?Time Frame ?Comments Continue to followup with your therapist and psychiatrist, and continue to take care of your mentalhealth. Seek help if you feel that you are getting more depressed, or have any worrisome changes inyour mental health. Balaji Maria Esther Please return if you have fever, chest pain, trouble breathing, neck pain, vision changes, or any other worrisome symptoms. Please followup with all of your usual doctors. Return if you have bleeding, fever, cannot eat/drink, or have any other worrisome symptoms Do not take naprosyn, Aleve, Motrin, ibuprofen or other similar medications. OK to take Tylenol, aka acetaminophen. Lab Results Cardiology Labs WBC: 10.6 k/mm3 (09/15/22) RBC:??4.68 m/mm3??Low (09/15/22) Hgb: 14.3 Gm/dL (09/15/22) Hct: 44.1 % (09/15/22) MCV:??94.2 femtoliters??High (09/15/22) MCH: 30.6 pg (09/15/22) MCHC:??32.4 g/dL??Low (09/15/22) Platelet Count: 227 k/mm3 (09/15/22) RDW-SD:??49.3 femtoliters??High (09/15/22) Nucleated RBC (Automated): 0 #/100 WBC'S (09/15/22) Abs. Neut: 4.7 k/mm3 (04/27/22) Abs. Lymph: 2.5 k/mm3 (04/27/22) Abs. [place]: 0.7 k/mm3 (04/27/22) Abs. Eo: 0.4 k/mm3 (04/27/22) Abs. Baso: 0.1 k/mm3 (04/27/22) Neut %: 55.5 % (04/27/22) [place] %: 8.4 % (04/27/22) Eos %: 4.4 % (04/27/22) Baso %: 1.2 % (04/27/22) Imm Gran: 0.6 % (04/27/22) Abs. Imm Gran: 0.1 k/mm3 (04/27/22) Sodium: 139 mmol/L (09/15/22) Potassium: 4.5 mmol/L (09/15/22) Chloride: 104 mmol/L (09/15/22) Bicarbonate Level: 27 mmol/L (09/15/22) Glucose Level: 91 mg/dL (09/15/22) Hemoglobin A1C (Monitoring): 5.5 % (04/27/22) BUN:??31 mg/dL??High (09/15/22) Creatinine-Blood:??2.1 mg/dL??High (09/15/22) Calcium: 8.9 mg/dL (09/15/22) Protein, Total: 6.4 Gm/dL (09/14/22) Albumin: 3.6 Gm/dL (09/14/22) Alkaline Phosphatase: 97 units/L (09/14/22) AST (SGOT): 26 units/L (09/14/22) ALT (SGPT): 25 units/L (09/14/22) Bilirubin, Total: 0.4 mg/dL (09/14/22) Troponin T Quant: <0.01 (02/11/22) Nt-Probnp:??606 pg/mL??High (10/27/21) Direct Low Density Lipoprotein: 120 mg/dL (04/27/22) TSH: 0.89 uIU/mL (04/27/22) Diagnostic Impression ECG ECG 12-Lead ?? 16:14:28 Please click on pdf link to open report ?? Signed By: Hieu Patricia MD ?? ECG 12-Lead ?? 16:14:28 Ventricular Rate: 63 BPM Atrial Rate: 63 BPM P-R Interval: 166 ms QRS Duration: 90 ms Q-T Interval: 420 ms QTC Calculation(Bazett): 429 ms P [place]: 48 degrees R [place]: -20 degrees T [place]: -17 degrees Normal sinus rhythm Minimal voltage criteria for LVH, may be normal variant ( R in aVL ) Borderline ECG When compared with ECG of 27-OCT-2021 07:19, No significant change was found ?? Confirmed by NEWTON PATRICIA MD ([id number]) on 02/12/2022 9:47:35 PM ?? Kennedy: NEWTON PATRICIA MD ?? Signed By: Hieu Patricia MD Stress Test NM Myocard Perf SPECT Multi ?? 08:57:24 Summary 1. Myocardial perfusion imaging is normal without any fixed or reversible perfusion defect after Regadenoson infusion. 2. LV function is normal after IV administration of Regadenoson with normal wall motion and thickening. 3. EKG portion of the stress test is reported separately. ?? Signatures _ _ ?? Signed By: Contributor_system, [place] Echo Echocardiogram - Complete ?? 14:05:07 Summary The left ventricular size is normal. The left ventricular wall thickness is moderately increased. The LV systolic function is normal . The left ventricular ejection fraction is 65-75 %. There are no regional wall motion abnormalities. LV filling pressures are indeterminate. The right ventricular size and function appears grossly normal. ?? Comparison Comparison is made to the study of April 12, 2013. LV wall thickness has increased. No wall motion noted on current study. ?? Signature ?? Signed By: Mukesh Arcos DO Studies VL Carotid Duplex Scan Bilat ?? 09:04:49 Summary: Right side: Occlusion of the Internal Carotid Artery. The proximal Common Carotid Artery waveform appears abnormal. There is a severe stenosis of the proximal External Carotid Artery. Antegrade Vertebral artery flow. Multiphasic Subclavian artery flow. Proximal ECA stenosis. ?? Left side: Probably 50-69% stenosis of the Internal Carotid Artery proximally given contralateral ICA occlusion, normal LICA/LCCA ratio and peak ICA velocity only slightly above 230 cm/s. Retrograde Vertebral artery flow consistent with subclavian steal. Monophasic Subclavian artery flow. ?? Signed By: Anthony Pantoja MD * Letty URIAS, Akash Owens: PERFORM Event Display: Progress Note Hospital Authored Date: I did not see Mr. Nagy today. ??It was my impression he could have gone home yesterday. ??Communication with Dr. Packer indicates he will be going home. ??Discussed with Daisy Antonio NP * Sara Scott RN: PERFORM, SIGN, VERIFY Event Display: Progress Note Hospital Authored Date: Patient: ALIYA NAGY Age: 67 years Sex: Male : 1955 Associated Diagnoses: None Author: Sara Scott RN Findings Problem Related to Alteration in Cardiac Function (new) : Alteration in Cardiac Function/new 09/14/2022 9:00 EDT Alteration in Cardiac Status Related to Chest pain Goals & Outcomes, Cardiac Status Pt will resume/maintain adequate cardiac output, Pt will resume/maintain adequate hemodynamic status, Pt will resume/maintain adequate respiratory function, Pt will resume/maintain intact neuro function, Pt will maintain adequate GI/ function appropriate for pt, Pt will maintain adequate nutrition status, Pt/caregiver will state understanding of diagnosis, Pt/caregiver will state strategies to reduce risk factors Cardiac Interventions Implemented Assess/monitor cardiac status, Assess/monitor neuro status, Assess/monitor respiratory status BH Goals/Interventions, Cardiac Yes Cardiac, Problem Start 09/13/2022 17:32 Reviewed Plan with, Cardiac Status Patient Patient Progression, Cardiac Status Plan Initiation . Nursing Data Vital Signs : VITAL SIGNS SECTION 09/14/2022 14:47 EDT Early Warning Score 4.00 09/14/2022 14:47 EDT Temperature 97.0 DegF Temperature Route Temporal Pulse Rate 63 bpm Respiratory Rate 18 br/min Systolic Blood Pressure 119 mm Hg Diastolic Blood Pressure 67 mm Hg Blood pressure sites Arm, right Mean Arterial Pressure 84 mm Hg Pulse Pressure 52 mm Hg Oxygen Saturation 94 % Mode of Delivery (Oxygen) Room air . Evaluation Last bowel movement 09/11. Offered bowel regimen, patient refused. . * Michelle Roman: PERFORM, SIGN, VERIFY Event Display: Progress Note Hospital Authored Date: Patient: ALIYA NAGY Age: 67 years Sex: Male : 1955 Associated Diagnoses: None Author: Michelle Roman Findings Narrative/Incidental Behavior Resource Clinician Note: Chart reviewed due to admission Hughes Suicide Severity Scale triggering systems-generated psych consults. Symptoms DO NOT warrant formal psych consult at this time. Please continue to assess depression and SI. Education on symptoms of Depression and when to seek help placed in pt's dc plan. Please call Behavior Resource team at [phone] with questions, and do not hesitate to order new psych consult if pt's SI status changes. . Radiology * Event Display: NM Myocard Perf SPECT Multi Authored Date: * Event Display: NM Myocard Perf SPECT Multi Authored Date: Myocardial Perfusion Imaging Demographics Patient Name YAKOV PISANO Gender Male [employer] Room Number [id number] Height 72.4 inches Date of 1955 Weight 234.9 pounds Age 67 year(s) BSA 2.29 m2 Accession Number [id number] BMI 31.47 kg/m2 Date of study 09/14/2022 Resident Referring Physician Akash Saenz MD Interpreting Physician Kiki Pepper MD NM Technologist Dede Reardon Procedure Procedure Type: Myocardial Perfusion Imaging:NM Myocardial Perfusion Spect Multi Indications: CAD [place] vessel. Risk Factors The patient risk factors include:Current - Every day tobacco use, hypercholesterolemia, hypertension and family history of premature CAD. Stress Protocols Resting ECG Sinus bradycardia. Resting HR:0 bpm Resting BP:154/82 mmHg Pre-stress physical exam: The patient's medications include AMLODIPINE, ASPIRIN, ATORVASTATIN, WELLBUTRIN, PLAVIX, FLUOXETINE, ISOSORBIDE MONONITRATE, LAMOTRIGINE, METOPROLOL, SEROQUEL, TRAZADONE. Stress Protocol:Pharmacologic - IV Regadenoson Dose: .4 mg Peak HR:80 bpm HR response: Not assessed Peak BP:158/76 mmHg (pharmacologic study) Predicted HR: 154 bpm HR recovery: Not Assessed % of predicted HR: 52 (Pharmacologic Study) Test duration: 1 min BP response: Normal resting BP with Reason for termination:Protocol complete appropriate response Functional capacity:Not assessed HR/BP product:[id number] Time of RP Injection:00:53 min Chest pain:No chest pain ST Changes:No ST segment changes Arrhythmias No arrhythmias. Symptoms FEEL ODD Nausea. Headache. ABDOMINAL DISCOMFORT Stress Interpretation Pharmacologic study only. Physiologic response not assessed - pharm stress. No EKG evidence of ischemia. Imaging Protocols - One Day Rest Stress Isotope:Tc99m Sestamibi Isotope: Tc99m Sestamibi Isotope dose:11.2 mCi IV Isotope dose:33.4 mCi IV Date:09/14/2022 Date:09/14/2022 Time to Rest Imagin minutes Time to Stress Imagin minutes Technique: Gated Technique: Gated Supine Supine Conclusions Summary 1. Myocardial perfusion imaging is normal without any fixed or reversible perfusion defect after Regadenoson infusion. 2. LV function is normal after IV administration of Regadenoson with normal wall motion and thickening. 3. EKG portion of the stress test is reported separately. Signatures Note * Sara Scott RN: PERFORM Event Display: Discharge/Transfer Note Hospital Authored Date: [id number] Nursing Discharge Note Entered On: 09/15/2022 12:05 EDT Performed On: 09/15/2022 12:05 EDT by Sara Scott RN Nursing Discharge Note 2 Discharge Time : 09/15/2022 12:05 EDT Discharge Level of Care at Discharge : Homehealth/VNA Discharge Nursing Homes/Rehab Facilities : [facility] Discharge VNA/Hospice/Home Care([id number]) : [facility] Patient Left Unit Via : Wheelchair Patient Accompanied Off Unit with : Responsible adult DC Instructions Provided & Signed by Pt : Yes Patient Understands D/C Instructions : Yes Patient Instructions Discharge Signed : Yes Did Pt have Specialty Bed or Wound Vac : No Sara Scott RN - 09/15/2022 12:05 EDT * Pattie Packer MD: PERFORM, MODIFY, MODIFY Event Display: Discharge/Transfer Note Hospital Authored Date: [id number] Patient: ??ALIYA NAGY ? Age:??67 Years?Sex:??Male?:??1955?? Patient Information Discharge Location: Primary Care Physician: Maria Esther URIAS, Balaji Quick Admit Date/Time: 09/13/22 12:11 Discharge Disposition Discharge Disposition: Home with Home Health Discharge Diagnosis Chest pain (R07.9) Hypertensive urgency (I16.0) Coronary artery disease (I25.10) CKD (chronic kidney disease) stage 3, GFR 30-59 ml/min (N18.30) Bipolar disorder (F31.9) ?? _ Discharge Medications Amlodipine (amLODIPine 10 mg oral tablet)?10?Milligram?1?tablet?By Mouth?Daily Aspirin (aspirin 81 mg oral delayed release tablet)?81?Milligram?By Mouth?Daily Atorvastatin (atorvastatin 80 mg oral tablet)?1?tab(s)?80?Milligram?By Mouth?Daily BuPROpion (BuPROPion (Eqv-Wellbutrin SR) 150 mg/12 hours oral tablet, extended release)?1?tab(s)?150?Milligram?By Mouth?2 times a day Clopidogrel (clopidogrel 75 mg oral tablet)?1?tablet?By Mouth?Daily Fluoxetine (FLUoxetine 40 mg oral capsule)?1?capsule?40?Milligram?By Mouth?Daily Fluoxetine (FLUoxetine 10 mg oral capsule)?10?Milligram?1?capsule?By Mouth?Daily Fluticasone Nasal (Flonase 50 mcg/inh nasal spray)?1?spray(s)?50?Microgram?Nares, Both?2 times a day Isosorbide Mononitrate (isosorbide mononitrate 60 mg oral tablet, extended release)?60?Milligram?1?tablet?By Mouth?Daily in AM?do not crush or chew. This is an increased dose. Lamotrigine (lamotrigine 100 mg oral tablet)?100?Milligram?1?tablet?By Mouth?2 times a day Metoprolol (metoprolol 25 mg oral tablet)?25?Milligram?1?tablet?By Mouth?2 times a day?increase in dose Nitroglycerin (Nitrostat 0.4 mg sublingual tablet)?1?tab(s)?0.4?Milligram?Sublingual?Every 5 minutes?prn Quetiapine (QUEtiapine 400 mg oral tablet, extended release)?400?Milligram?1?tablet?By Mouth?Daily at bedtime Trazodone (traZODone 100 mg oral tablet)?200?Milligram?2?tablet?By Mouth?Daily atbedtime ? Medications Started ?? amlodipine 10mg daily ? Doses Changed increased dose of IMDUR refilled fluticasone nasal Allergies Allergies ?(Active and Proposed Allergies Only) Vistaril? (Severity: Unknown severity, Onset: Unknown) Nuts? (Severity: Unknown severity, Onset: Unknown) Nicotine Patch? (Severity: Unknown severity, Onset: Unknown) Abilify? (Severity: Unknown severity, Onset: Unknown) Claritin? (Severity: Unknown severity, Onset: Unknown) Benadryl? (Severity: Unknown severity, Onset: Unknown) Clozaril? (Severity: Unknown severity, Onset: Unknown) ? PCP Follow-Up/Heads-Up Needs ongoing close followup with PCP and specialists. Please continue to monitor BP, renal function, and adjust medications as needed Future Appointments 2022 10:20 AM EDT ?? With: Maria Esther URIAS, Balaji Quick Where: [place] [id number]- Status: Pending Objective Assessment and Plan Assessment:??This is a 67-year-old gentleman??with complex history??including CAD, status post LAD stent in 2010 and restenosis with PCI and 2 overlapping stents in 2020, post-procedural CVA, peripheral vascular disease (carotid artery stenosis, subclavian stenosis, AAA, and NADIRA), HTN, HLD, CKD III, and schizoaffective disorder who presented to [facility] complaining of 3 days of constant midsternal chest pain. He has had recurrent pain with intermittent relief from nitroglycerin, and uncontrolled blood pressure. Work-up was negative for NSTEMI. After discussion with cardiology, he was transferred here to [facility] for further evaluation for possible cardiac catheterization. He underwent nuclear regadenosen??stress test, and this was reassuring. Cardiology advised he can be discharged home. ? Chest pain (R07.9) Hypertensive urgency (I16.0) Coronary artery disease (I25.10):?? Appreciate Cardiology consult (PVC). Advised??treating hypertension, advised that??nuclear stress test??was reassuring,??so ok for d/c with ongoing outpt f/u Continue??isosorbide mononitrate to 60 mg daily (increased) Continue amlodipine 10 mg daily (new Rx) Continue usual dose??metoprolol??25mg po BID (HR 50s, not much room for increasing beta lashell) Continue aspirin, Plavix, and atorvastatin??as per home regimen Nitroglycerin sublingual??PRN No further chest pain; SBP 120s this AM feeling well, eager to go home. ? CKD (chronic kidney disease) stage 3, GFR 30-59 ml/min (N18.30):??Cr 1.8,??approx. baseline ??He has known renal artery stenosis with prior L sided??stenting?Renal duplex in January 2022 showed patent right renal artery, and 60% stenosis of the left renalartery. Outpt f/u ? Bipolar disorder (F31.9):??Eval'd by behavioral health team. No need for psychiatry c/s at this time, per their eval. Pt confirms he feels that he has a good??mental health team??in the outpatient setting, and is stable on his usual medication, without SI or any recent deterioration in his mental health Continue??home regimen:??bupropion, fluoxetine, lamotrigine, Seroquel, and trazodone. ?? His brother will??pick him up. They live on??opposite sides of [facility]. Pt will continue his usual home health/VNA. ?? Code Status: FULL? Vital Signs?? Temperature: 97.1 DegF (09/15/22 01:06:00) Temperature Route: Temporal (09/15/22 01:06:00) Pulse Rate: 56 bpm (09/15/22 01:06:00) Respiratory Rate: 20 br/min (09/15/22 01:06:00) Systolic Blood Pressure: 120 mm Hg (09/15/22 01:06:00) Diastolic Blood Pressure: 70 mm Hg (09/15/22:06:00) Blood pressure sites: Arm, right (09/15/22 01:06:00) Mean Arterial Pressure: 87 mm Hg (09/15/22 01:06:00) Pulse Pressure: 50 mm Hg (09/15/22:06:00) Oxygen Saturation: 96 % (09/15/22:06:00) Mode of Delivery (Oxygen): Room air (09/15/22:06:00) Early Warning Score: 2 (09/15/22 08:15:35) ? . Physical Exam Alert, conversant and lucid; eager to go home; looking forward to seeing his dog, who is an 18 pound terrier (at the [facility] currently) no SI, feels that his depression/bipolar disorder is stable now, and states he has good followup with his therapist and psychiatrist and also nursing/HH twice per day at home for medication administration EOMI, no epistaxis Resp non labored, w/o wheezing, comfortable on RA HR 56 regular no m/r/g, no JVD ext warm and well perfused no new focal deficits; woke easily to voice; no seizure/tremor/asterixis (did not evaluate gait, but he tells me he is walking well with a cane, as usual, and has a walker at home but does not use it unless going out for a lengthy walk) Pending Results CBC ordered on 09/13/2022 COVID-19 (2019 Novel Coronavirus) PCR ordered on 09/13/2022 Patient Education Titles Amlodipine Oral Tablet?? Discharge Instructions for High Blood Pressure (Hypertension)?? Depression?? Follow-Up Appointments Added Follow Up ?Time Frame ?Comments Continue to followup with your therapist and psychiatrist, and continue to take care of your mentalhealth. Seek help if you feel that you are getting more depressed, or have any worrisome changes inyour mental health. Balaji Maria Esther Please return if you have fever, chest pain, trouble breathing, neck pain, vision changes, or any other worrisome symptoms. Please followup with all of your usual doctors. Return if you have bleeding, fever, cannot eat/drink, or have any other worrisome symptoms Do not take naprosyn, Aleve, Motrin, ibuprofen or other similar medications. OK to take Tylenol, aka acetaminophen. Home Health Face to Face *Denotes mandatory kim ?? *I certify that this patient is under my care and that I or an allowed non- physician working with me had a face to face encounter with the patient on this date:??09/15/2022 08:39 ?? *The encounter with the patient was in whole, or in part, for the following medical condition, which is the primary diagnosis(es) for home health care:??Chest pain (R07.9) Hypertensive urgency (I16.0) Coronary artery disease (I25.10) CKD (chronic kidney disease) stage 3, GFR 30-59 ml/min (N18.30) Bipolar disorder (F31.9) ? *Select the indications for the discipline/s that are being arranged for this patient. Nursing (select all that apply): [_] None [#_] Medication management (reconciliation, teaching)?? [#_] Chronic disease management?? [_] Wound care and treatment?? [_] Home safety evaluation [_] Administer SQ/IM/IV medications?? [_] Cath care?? [_] Drain care?? [_] Trach or GT care?? Other _ Occupation Therapy (select all that apply): [_] None [_] ADL Management [_] Fall prevention training [_] Energy conservation [_] Cognitive training Other _ Physical Therapy (select all that apply): [_] None [#_] Functional mobility training [#_] Home exercise program to strengthen [#_] Increase ROM?? [#_] Falls prevention training [_#] Home maintenance program for chronic disease Other _ Speech Therapy (select all that apply): [_] None [_] Swallow evaluation and training [_] Speech and language training [_] Cognitive training to process, organize, and/or recall information Other _ ?? Please resume all previous services; [employer]; med administration ? *Homebound due to (select all that apply): [#_] Inability to leave home without assistance/supervision [_] Inability to ambulate without assistance [_] Pain [#_] Decreased strength and endurance [_] Unsteady gait [_] Severe SOB and fatigue [_] Impaired transfers [_] Inability to negotiate stairs [_] Limited weight bearing [_] Mental status change? *Physician Signature: _Pattie Packer MD ?? *By signing this, I certify that I have personally evaluated the patient and agree with the findings and recommendations as documented above. ? Results Microbiology ?? COVID-19 (2019 Novel Coronavirus) PCR?? Collected?? Source: Nasal Body Site: Nose Collected Dt/Tm: 09/13/2022 18:30 Last Updated Dt/Tm: 09/13/2022 12:11 ? Test Name Test Result Date/Time WBC 10.6 k/mm3 09/15/2022 07:04 EDT Hgb 14.3 Gm/dL 09/15/2022 07:04 EDT Platelet Count 227 k/mm3 09/15/2022 07:04 EDT Sodium 139 mmol/L 09/15/2022 07:04 EDT Potassium 4.5 mmol/L 09/15/2022 07:04 EDT Imaging(s) ?NM Myocard Perf SPECT Multi ?? 09/14/2022 08:57??by Contributor_system, SOFT MED ?Cardiac Rhythm Strips ?? 09/14/2022 00:00??by HIM , [employer] ?Stress Nuc with Regadenoson ?? 09/14/2022 09:48??by Leilani Gordillo NP ? Consults(s) ?Consultation Note ?? 09/13/2022 15:55??by Akash Saenz MD ? 45_ minutes spent on discharge * Sara Scott RN: PERFORM Event Display: Patient Education/Instruction Authored Date: [id number] Inpatient Adult Discharge Instructions [address] [address] Name: ALIYA NAGY : 1955 Visit: 09/13/2022 12:11:00 Current Date: 09/15/2022 11:07 Account: [id number] Inpatient Adult Discharge Instructions We would like to thank you for allowing us to assist you with your healthcare needs. The following includes patient education materials and information regarding your injury/illness. Our entire staffstrives to provide an excellent experience for our patients and their families. PLEASE ENSURE YOU FOLLOW-UP PER THE INSTRUCTIONS BELOW! ?? YOUR OPINION IS IMPORTANT TO US! Please complete the survey you may receive by mail or email. Your feedback will be used to make improvements to the healthcare experiences of our patients and their families. Surveys are administered by [employer] ?? If further treatment with your primary care physician or another doctor is recommended, it is important for you to keep the appointment. Call your primary care physician or return to the Emergency Department immediately if your condition worsens, fails to improve, or new symptoms develop. If you need to find a doctor, you can call [email or web address] for a referral at [phone] or toll free at [phone]) or log in to [email or web address].. ?? You can view and manage your care through the patient portal or by using a health care roberto of your choosing. [employer] is a website that allows you to securely view your medical information including your hospital discharge summary, office visit summaries, medications and follow-up visits. You can also request appointments, renew medications, and request access to your medical information using a health care roberto of your choosing, or just ask a question. You can enroll at [email or web address] or register during your next office visit. You have been discharged from [facility], Patient Care Unit: M7. If you have any questions regarding these instructions after you leave, please call us and we will be happy to assist you. [facility] Your Care Team Attending Physician Ochoa URIAS, Pattie Consulting Providers Akash Saenz MD Discharging Providers Pattie Packer MD Reason for Your Visit Transfer from [place] with ongoing chest pain, uncontrolled hypertension Your Diagnosis Chest pain Hypertensive urgency Coronary artery disease CKD (chronic kidney disease) stage 3, GFR 30-59 ml/min Bipolar disorder Tests Performed Below is a partial list of the tests performed during your hospitalization. You may have had other tests and procedures not included in this list. Please discuss all test results with your provider. Basic Metabolic Panel CBC Comprehensive Metabolic Panel COVID-19 (2019 Novel Coronavirus) PCR?-- Results Pending -- COVID-19 (NOVEL CORONAVIRUS), PCR High??Sensitivity??Troponin T Magnesium Level You will be contacted within 72 hours with your results. Primary Care Provider Balaji Mayo MD Advance Directive . Discharge Vitals Temperature: 96.9 DegF Height: 184 cm Pulse Rate: 71 bpm Weight: 106.6 kg Respiratory Rate: 18 br/min Body Mass Index:??31.34 kg/m2??Critical Systolic Blood Pressure: 136 mm Hg Body surface area: 2.33 Diastolic Blood Pressure: 71 mm Hg ?? Oxygen Saturation: 96 % ?? Studies Pending All tests and labs ordered during this hospital stay have been completed unless listed below. Please discuss all pending results with your provider listed above in these instructions. ?? CBC COVID-19 (2019 Novel Coronavirus) PCR What to do next Instructions From Your Doctor Discharge Orders Scheduled Follow-Up Appointments 2022 10:20 AM EDT ?? With: Balaji Mayo MD Where: [place] [id number]- Status: Pending You Need to Schedule the Following Appointments Follow Up with??Continue to followup with your therapist and psychiatrist, and continue to take care of your mental health. Seek help if you feel that you are getting more depressed, or have any worrisome changes in your mental health. Follow Up with??Balaji Mayo When:??In 0 days Follow Up with??Please return if you have fever, chest pain, trouble breathing, neck pain, vision changes, or any other worrisome symptoms. Follow Up with??Please followup with all of your usual doctors. Return if you have bleeding, fever,cannot eat/drink, or have any other worrisome symptoms Follow Up with??Do not take naprosyn, Aleve, Motrin, ibuprofen or other similar medications. OK to take Tylenol, aka acetaminophen. Discharge Medications ALIYA NAGY :1955 Visit Date:09/13/2022 Medications: Please continue your medications until treatment is completed or stopped by your provider. Medications not listed below should be discontinued. Discuss any questions related to medications with your provider. What How Much When Instructions Next Dose New Amlodipine (amLODIPine 10 mg oral tablet) 1 tab(s) Oral Daily Pickup at [facility] #[id number] tomorrow Changed Isosorbide Mononitrate (isosorbide mononitrate 60 mg oral tablet, extended release) 1 tab(s) Oral Daily in the morning do not crush or chew. This is an increased dose. ?? [facility]up at [facility] #[id number] tomorrow Unchanged Aspirin (aspirin 81 mg oral delayed release tablet) 81 Milligram Oral Daily tomorrow Unchanged Atorvastatin (atorvastatin 80 mg oral tablet) 1 tab(s) Oral Daily tonight Unchanged BuPROpion (BuPROPion (Eqv-Wellbutrin SR) 150 mg/ 12 hours oral tablet, extended release) 1 tab(s) Oral Twice a day tonight Unchanged Clopidogrel (clopidogrel 75 mg oral tablet) 1 tab(s) Oral Daily tomorrow Unchanged Fluoxetine (FLUoxetine 10 mg oral capsule) 1 capsule Oral Daily tomorrow Unchanged Fluoxetine (FLUoxetine 40 mg oral capsule) 1 capsule Oral Daily tomorrow Unchanged Fluticasone Nasal (Flonase 50 mcg/ inh nasal spray) 1 spray(s) Nares, Both Twice a day Pickup at [facility] #[id number] resume Unchanged Lamotrigine (lamotrigine 100 mg oral tablet) 1 tab(s) Oral Twice a day tonight Unchanged Metoprolol (metoprolol 25 mg oral tablet) 1 tab(s) Oral Twice a day increase in dose ?? tonight Unchanged Nitroglycerin (Nitrostat 0.4 mg sublingual tablet) 1 tab(s) Sublingual Every 5 minutes prn ?? as needed Unchanged Quetiapine (QUEtiapine 400 mg oral tablet, extended release) 1 tab(s) Oral Daily at Bedtime tonight Unchanged Trazodone (traZODone 100 mg oral tablet) 2 tab(s) Oral Daily at Bedtime tonight Pharmacy Information [facility] #[id number]: [address], [place] [id number] [phone] Test Results Below is a partial list of the most recent Laboratory test results done prior to this discharge. You may have had other tests and procedures not included in this list. Please discuss all test resultswith your provider. Est Creatinine Clearance - 38.48 mL/min (09/15/2022) Basic Metabolic Panel (09/15/2022) ???Sodium - 139 mmol/L???Potassium - 4.5 mmol/L???Chloride - 104 mmol/L???Bicarbonate Level - 27 mmol/L???Anion Gap - 8???Glucose Level - 91 mg/dL???BUN - 31 mg/dL???Creatinine-Blood - 2.1 mg/dL???Estimated GFR Creatinine - 35 ML/MIN/1.73 M2???Calcium - 8.9 mg/dL CBC (09/15/2022) ???WBC - 10.6 k/mm3???RBC - 4.68 m/mm3???Hgb - 14.3 Gm/dL???Hct - 44.1 %???MCV - 94.2 femtoliters???MCH - 30.6 pg???MCHC - 32.4 g/dL???Platelet Count - 227 k/mm3???RDW-SD - 49.3 femtoliters???MPV - 10.6 femtoliters???Nucleated RBC (Automated) - 0.0 #/100 WBC'S???Abs. NRBC - 0.0 k/mm3 Comprehensive Metabolic Panel (09/14/2022) ???Sodium - 139 mmol/L???Potassium - 4.6 mmol/L???Chloride - 102 mmol/L???Bicarbonate Level - 26 mmol/L???Anion Gap - 11???Glucose Level - 104 mg/dL???BUN - 29 mg/dL???Creatinine-Blood - 1.9 mg/dL???Estimated GFR Creatinine - 39 ML/MIN/1.73 M2???Calcium - 9.1 mg/dL???Protein, Total - 6.4 Gm/dL???Alb umin - 3.6 Gm/dL???AG Ratio - 1.3???Alkaline Phosphatase - 97 units/L???AST (SGOT) - 26 units/L???ALT (SGPT) - 25 units/L???Bilirubin, Total - 0.4 mg/dL COVID-19 (NOVEL CORONAVIRUS), PCR (09/13/2022) ???COVID-19 by RT-PCR - NEGATIVE High??Sensitivity??Troponin T (09/13/2022) ???High Sensitivity Troponin (HSTnT) - 11 ng/L Magnesium Level (09/15/2022) ???Magnesium - 2.4 mg/dL Allergies (NKA means No Known Allergies) Abilify Benadryl Claritin Clozaril Nicotine Patch Nuts Vistaril Problems Active Problems??() AAA (abdominal aortic aneurysm)?? Bipolar disorder?? BPH (benign prostatic hyperplasia)?? cardiac stent placement?? Carotid artery stenosis?? Chest pain?? CKD (chronic kidney disease) stage 3, GFR 30-59 ml/min?? COVID-19?? Degenerative joint disease (DJD) of hip?? Essential hypertension?? Gastroesophageal reflux disease?? HTN (hypertension)?? Hyperglycemia?? Hyperlipidemia?? Nondependent cannabis abuse in remission?? Obese class I?? Peripheral vascular disease?? Pulmonary nodule?? Renal artery stenosis?? Schizoaffective schizophrenia?? Stenosis of left subclavian artery?? Tobacco use?? Tubular adenoma of colon?? Education Materials Below is the list of Educational Leaflet Providered with your Discharge Instructions. Isosorbide Extended Release Oral Tablet?? Understanding Coronary Artery Disease (CAD)?? Amlodipine Oral Tablet?? Discharge Instructions for High Blood Pressure (Hypertension)?? Depression?? Valuables and Belongings I fully understand and agree that [facility] accepts no responsibility for all my personal property including clothing, toilet articles, radios, jewelry, dentures, hearing aids, rings, money, or any other property that is in my possession or is brought to me after admission. I understand certain valuables may be placed in a hospital safe for a short period of time. I understand that the hospital is not liable for loss or damage due to accident, fire, or other natural occurrence while said property is in the safe. I accept full responsibility for any personal property that I keep with me, and will not hold the hospital responsible in case of loss or disappearance. I acknowledge that i have been encouraged to send valuables and belongings home. ?? Date for Pt to Sign Valuables/Belongings: 09/15/22 10:25:00 ?? Other Discharge Information ? Case Management Discharge Plan?? Discharge Plan?? Discharge Agency Information?? 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 Service Comments #1: Patient is active with [facility]. VNA will resume services upon discharge; if you dont hear from them please call them directly. ?? Pulmonary Rehab Status?? Pulmonary Rehab Discharge Status?? Respiratory Rate: 18 br/min ? Common Emergency Awareness Tips IS IT A STROKE? Act FAST and Check for these signs: FACE Does the face look uneven? ARM Does one arm drift down? SPEECH Does their speech sound strange? TIME Call at any sign of stroke ?? Heart Attack Signs Chest discomfort: Most heart attacks involve discomfort in the center of the chest and lasts more than a few minutes, or goes away and comes back. It can feel like uncomfortable pressure, squeezing, fullness or pain. Discomfort in upper body: Symptoms can include pain or discomfort in one or both arms, back, neck, jaw or stomach. Shortness of breath: With or without discomfort. Other signs: Breaking out in a cold sweat, nausea, or lightheaded. Remember, MINUTES DO MATTER. If you experience any of these heart attack warning signs, call to get immediate medical attention! ?? Smoking can increase your chances of developing chronic health problems and can cause harmful effects to other family members in your house. If you smoke, you are strongly encouraged to quit. Please call [facility] [email or web address] at [phone] or [phone] or log in to [email or web address] for referrals to smoking cessation programs. ?? 602 Suicide & Crisis Lifeline is available 14/11 if you or someone you know needs to find a reason to keep living. By calling 377 you'll be connected to a skilled, trained counselor at a crisis center in your area. INPATIENT DISCHARGE INSTRUCTIONS SIGNATURE PAGE ALIYA NAGY Location:[facility] Registration Date and Time:09/13/2022 12:11 EDT Primary Care Physician: Maria Esther URIAS, Balaji Quick, Attending Physician: Mirian Packer MDah, I ALIYA NAGY, have received the above patient education materials/instructions and have verbalized understanding. If ambulance or transport services are being used I further acknowledge beinggiven a choice of service. ?? If you need to contact me, please call me at this number: . Patient/Financial Sales Professional Name: Patient/Financial Sales Professional Signature: Relationship to Patient: Witness Name/Signature: Date: * Pattie Packer MD: PERFORM, SIGN, VERIFY Event Display: Patient Education Handout Authored Date: [id number] * Sara Scott RN: PERFORM Event Display: Patient Education Leaflets Authored Date: [id number] Isosorbide Extended Release Oral Tablet ?? [id number] Isosorbide Extended Release Oral Tablet Uses This medicine is used for the following purposes: ??? angina ??? enlarged veins ?? Instructions Swallow the medicine without crushing or chewing it. Take the medicine with 250 mL (1 cup) of water. This medicine will work best if you take it at about the same time every day. Take the medicine first thing in the morning. Keep the medicine at room temperature. Avoid heat and direct light. It is important that you keep taking each dose of this medicine on time even if you are feeling well. If you forget to take a dose on time, take it as soon as you remember. If it is almost time for thenext dose, do not take the missed dose. Return to your normal schedule. Do not take 2 doses at one time. Tell your doctor and pharmacist about all your medicines. Include prescription and fhzu-qom-fcknejuhrlmnrbsh, vitamins, and herbal medicines. Do not suddenly stop taking this medicine. Check with your doctor before stopping. ?? Cautions Tell your doctor and pharmacist if you ever had an allergic reaction to a medicine. Do not use the medication any more than instructed. This medicine may cause dizziness or fainting, especially after exercising or in hot weather. Be very careful when standing or sitting up quickly. Your ability to stay alert or to react quickly may be impaired by this medicine. Do not drive or operate machinery until you know how this medicine will affect you. Tell the doctor or pharmacist if you are , planning to be , or . Do not take this medicine with other medicines called PDE5 inhibitors (Viagra, Levitra, Cialis). Your doctor will let you know if it is safe for you to do so. Do not start or stop any other medicines without first speaking to your doctor or pharmacist. Do not share this medicine with anyone who has not been prescribed this medicine. ?? Side Effects The following is a list of some common side effects from this medicine. Please speak with your doctor about what you should do if you experience these or other side effects. ??? dizziness ??? headaches ??? nausea Call your doctor or get medical help right away if you notice any of these more serious side effects: ??? low blood pressure A few people may have an allergic reaction to this medicine. Symptoms can include difficulty breathing, skin rash, itching, swelling, or severe dizziness. If you notice any of these symptoms, seek medical help quickly. ?? Extra Please speak with your doctor, nurse, or pharmacist if you have any questions about this medicine. ?? [email or web address] IMPORTANT NOTE: This document tells you briefly how to take your medicine, but it does not tell youall there is to know about it. Your doctor or pharmacist may give you other documents about your medicine. Please talk to them if you have any questions. Always follow their advice. There is a more complete description of this medicine available in Surinamese. Scan this code on your smartphone or tablet or use the web address below. You can also ask your pharmacist for a printout. If you have any questions, please ask your pharmacist. The display and use of this drug information is subject to Terms of Use. Copyright(c) 2022 [employer]. ?? [employer]. All rights reserved. This information is not intended as a substitute for professional medical care. Always follow your healthcare professional's instructions. ?? * Sara Scott RN: PERFORM Event Display: Patient Education Leaflets Authored Date: [id number] Understanding Coronary Artery Disease (CAD) ?? 90016 Understanding Coronary Artery Disease (CAD) Your heart is a muscle. To work right, this muscle needs a steady supply of oxygen. The coronary arteries are blood vessels that send oxygen-rich blood to the heart muscle. Coronary artery disease (CAD) is when there???s a problem in these blood vessels. Healthy artery. A healthy coronary artery has no blockages. Blood easily flows through it. Healthy arteries can supply all the oxygen-rich blood your heart muscle needs. Healthy artery. Damaged artery. Some things can damage the lining of an artery. These include smoking, high blood pressure, and high blood sugar. CAD starts when this damage leads to the buildup of plaque along the artery wall. Plaque is a substance made of cholesterol and other fatty deposits. Plaque narrows the arteries that send blood to your heart muscle. This is called atherosclerosis. Damaged artery. Narrowed artery. As more plaque builds up, an artery has trouble sending blood to your heart musclewhen it's needed the most, such as during exercise. You may not feel any symptoms when this happens. Or you may feel pressure, tightness, aching, or pain in your chest, jaw, neck, back, or arm. This is called angina. Narrowed artery. Blocked artery. A piece of plaque can break off. This is called ruptured plaque. It can fully blockthe artery. But more often, a blood clot forms on a piece of ruptured plaque. Together these block the narrowed artery. Then blood can't reach the heart muscle. Right away, part of the heart muscle becomes damaged and stops working. You may feel crushing pressure or pain in or around your chest. This is a heart attack (acute myocardial infarction). It???s a medical emergency. Blocked artery. Last Reviewed Date: 2021 ?? [employer]. All rights reserved. This information is not intended as a substitute for professional medical care. Always follow your healthcare professional's instructions. ?? * Pattie Packer MD: PERFORM Event Display: Patient Education Leaflets Authored Date: [id number] Amlodipine Oral Tablet ?? [id number] Amlodipine Oral Tablet Brands: [employer] Uses This medicine is used for the following purposes: ??? angina ??? high blood pressure ??? Raynaud's disease ?? Instructions This medicine may be taken with or without food. This medicine will work best if you take it at about the same time every day. Keep the medicine at room temperature. Avoid heat and direct light. It is important that you keep taking each dose of this medicine on time even if you are feeling well. If you forget to take a dose on time, take it as soon as you remember. If it is almost time for thenext dose, do not take the missed dose. Return to your normal schedule. Do not take 2 doses at one time. Drug interactions can change how medicines work or increase risk for side effects. Tell your healthcare providers about all medicines taken. Include prescription and lddp-qru-ddooiuf medicines, vitamins, and herbal medicines. Speak with your doctor or pharmacist before starting or stopping any medicine. Tell your doctor if symptoms do not get better or if they get worse. Keep all appointments for medical exams and tests while on this medicine. ?? Cautions Tell your doctor and pharmacist if you ever had an allergic reaction to a medicine. Do not use the medication any more than instructed. This medicine may cause dizziness or fainting, especially after exercising or in hot weather. Be very careful when standing or sitting up quickly. If possible, avoid using with marijuana or other medicines that can cause dizziness or drowsiness. These include allergy/cold products, muscle relaxers, sleep aids, and pain relievers. Your ability to stay alert or to react quickly may be impaired by this medicine. Do not drive or operate machinery until you know how this medicine will affect you. Please check with your doctor before drinking alcohol while on this medicine. This medicine passes into breast milk. Ask your doctor before . During , this medicine should be used only when clearly needed. Talk to your doctor about the risks and benefits. Do not share this medicine with anyone who has not been prescribed this medicine. ?? Side Effects The following is a list of some common side effects from this medicine. Please speak with your doctor about what you should do if you experience these or other side effects. ??? dizziness ??? swelling of the legs, feet, and hands ??? lack of energy and tiredness ??? feeling of heat or flushing ??? low blood pressure ??? lightheadedness Call your doctor or get medical help right away if you notice any of these more serious side effects: ??? worsening chest pain or crushing feeling ??? fainting ??? fast or irregular heart beats ??? jawpain ??? shortness of breath ??? excessive or unusual sweating A few people may have an allergic reaction to this medicine. Symptoms can include difficulty breathing, skin rash, itching, swelling, or severe dizziness. If you notice any of these symptoms, seek medical help quickly. ?? Extra Please speak with your doctor, nurse, or pharmacist if you have any questions about this medicine. ?? [email or web address] IMPORTANT NOTE: This document tells you briefly how to take your medicine, but it does not tell youall there is to know about it. Your doctor or pharmacist may give you other documents about your medicine. Please talk to them if you have any questions. Always follow their advice. There is a more complete description of this medicine available in Surinamese. Scan this code on your smartphone or tablet or use the web address below. You can also ask your pharmacist for a printout. If you have any questions, please ask your pharmacist. The display and use of this drug information is subject to Terms of Use. Copyright(c) 2022 [employer]. ?? [employer]. All rights reserved. This information is not intended as a substitute for professional medical care. Always follow your healthcare professional's instructions. ?? Patient Care team information Care Team Personnel Name: Wild Woods RN Position: [facility] ED RN W/OE and Tasks Member Role: Primary Care Nurse Name: Camila Vazquez RN Position: [facility] RN Member Role: Primary Care Nurse Name: Taylor Beck RN Position: [facility] RN Member Role: Primary Care Nurse Name: Amanda Garibay RN Position: [facility] RN Member Role: Primary Care Nurse Name: Mary Roberson RN Position: [facility] RN Member Role: Primary Care Nurse Name: Tomas Stauffer RN Position: [facility] RN Member Role: Primary Care Nurse Name: Balaji Mayo MD Position: [facility] Physician - Primary Care Member Role: PCP Address: Address: [address] [place] [id number]- Name: Fadumo Conti RN Position: [facility] RN Member Role: Primary Care Nurse Care Team Related Persons Name: ROSANA NAGY Address: [address] [address] Name: GORAN QUINTERO
--- OUTSIDE RECORDS SUMMARY | 2023-12-30 12:52 | XMS_ITS | Continuity of Care Document ---
Author Organization [facility] Kunal Aldair lt Address [address] [place] [address]- Care Team Providers Care Direct Mail Marketer Name Role Phone Maria Esther URIAS, Balaji Quick Primary Care Physician [phone] Encounter [facility] Date(s): 02/24/21 - 03/26/21 [facility] Adult [address] [place] [address]- Allergies, Adverse Reactions, Alerts Substance Reaction Severity [...] 23-valent vaccine 12/17/12 Recorded 1Result Comment: [02/15/2018] [id number] 2Result Comment: [08/02/2017] [facility] [id number] Medications amLODIPine 5 mg oral tablet 2.5 [...] Refills, Maintenance, 02/18/21 9:19:00 EDT, EC Tablet, [facility], Partial fill upon patient request if the prescription is for a schedule II opioid drug., 180, cm, 01/26/21 13:02:00 EDT, Height Start Date: 02/18/21 Status: Ordered atorvastatin 80 mg oral tablet 1 tablet = 80 mg, By Mouth, Daily, # 90 tablet, 3 Refills, Maintenance, 03/25/21 16:47:00 EST, Tablet, [email or web address] #[id number], Partial fill upon patient request if the [...] 03/25/21 16:47:00 EST, Route to Pharmacy Electronically, [email or web address] #[id number], 180, cm, 02/19/21 13:36:00 EDT, Height Start Date: 03/25/21 Status: Ordered Flonase 50 mcg/inh nasal spray 1 sprays = 50 mcg, Nares, Both, 2 times a day, # 16 Gm, 5 Refills, Maintenance, 09/29/20 16:49:00 EDT, Nasal [place], [facility] #[id number], Partial fill upon patient request if the [...] 09/13/20 6:59:00 EDT, Route to Pharmacy Electronically, [email or web address] #[id number], Partial fill upon patient request if the [...] 11 Refills, Maintenance, 02/20/21 7:32:00 EDT, [facility], [facility], Partial fill upon patient request if the prescription is for a schedule II opioid drug., 1 patch T... Start Date: 02/20/21 Status: Ordered Metoprolol Tartrate 25 mg oral tablet 1 tablet, By Mouth, 2 times a day, # 180 tablet, 3 Refills, Maintenance, 03/25/21 16:47:00 EST, [email or web address] #[id number], 180, cm, 02/19/21 13:36:00 EDT, Height Start [...] Maintenance, :58:00 EDT, [id number], Partial fill upon patient request if the [...]
--- OUTSIDE RECORDS SUMMARY | 2023-12-30 12:52 | XMS_ITS | Continuity of Care Document ---
Author Organization [facility] Rico Syed Aldair lt Address [address] [place] [address]- Care Team Providers Care Water Well Driller Name Role Phone Maria Esther URIAS, Balaji Quick Primary Care Physician [facility]counter [facility] Date(s): 10/02/23 - 11/01/[address] [facility] Rico Syed Adult [address] [place] [address]- Allergies, Adverse Reactions, Alerts Substance Reaction Severity [...] 23-valent vaccine 12/17/12 Recorded 1Result Comment: [02/15/2018] 56152-289-20 2Result Comment: [id number] 3Result Comment: [08/02/2017] [facility] 91886-683-29 Medications Aspirin Low Dose 81 mg oral delayed release tablet 1 tablet, By Mouth, Daily, # 90 tablet, 3 Refills, Maintenance, 11/08/22 11:19:00 EDT, [facility] #[id number], 184, cm, 11/03/22 11:28:00 EDT, Height, 106.3, kg, 09/13/22 12:30:00 EDT, Dry Weight Start Date: 11/08/22 Status: Ordered atorvastatin 80 mg oral tablet 1 tablet = 80 mg, By Mouth, Daily, # 90 tablet, 3 Refills, Maintenance, 08/18/23 16:03:00 EDT, Tablet, [facility] #[id number], Partial fill upon patient request if the prescription is for a schedule II opioid drug., 183, cm, 08/09/23 10:49:00 EDT... Start Date: 08/18/23 Status: Ordered BuPROPion (Eqv-Wellbutrin SR) 150 mg/12 hours oral tablet, extended release 1 tablet = 150 mg, By Mouth, 2 times a day, # 180 tablet, 3 Refills, Maintenance, 10/05/21 17:37:00EDT, SR Tablet, [facility] #[id number], Partial fill upon patient request if the prescription is for a schedule II opioid drug., 182, cm, 09/10/21... Start Date: 10/05/21 Status: Ordered clopidogrel 75 mg oral tablet 1, tablet, By Mouth, Daily, # 90 tablet, Refills 3, Tot. Refills 3, Maintenance, 08/18/23 16:03:00 EDT, Route to Pharmacy Electronically, [facility] #[id number], 183, cm, 08/09/23 10:49:00 EDT, Height, 107, kg, 01/26/23 19:57:00 EDT, Dry Weight Start Date: 08/18/23 Status: Ordered FLUoxetine 40 mg oral capsule 1 capsule = 40 mg, By Mouth, Daily, # 90 capsule, 3 Refills, Maintenance, 10/05/21 17:34:00 EDT, Capsule, [facility] #[id number], Partial fill upon patient request if the prescription is for a schedule II opioid drug., 182, cm, 09/10/21 8:13:00 E... Start Date: 10/05/21 Status: Ordered fluticasone 50 mcg/inh nasal spray 1 sprays = 50 mcg, Nares, Both, 2 times a day, PRN allergies, # 16 Gm, 11 Refills, Maintenance, 08/18/23 16:05:00 EDT, [place], [facility] #[id number], Partial fill upon patient request if the [...] 11 Refills, Maintenance, 08/18/23 16:04:00 EDT, Tablet, [facility] #[id number], Partial fill upon patient request if the prescription is for a schedule II opioid dr... Start Date: 08/18/23 Status: Ordered Norvasc 2.5 mg oral tablet 2.5 mg, 1, tablet, By Mouth, Daily, # 90 tablet, Refills 3, Tot. Refills 3, Maintenance, 08/18/23 16:02:00 EDT, Route to Pharmacy Electronically, [facility] #[id number], Partial fill upon patient request if the prescription is for a schedule II o... Start Date: 08/18/23 Status: Ordered omeprazole 20 mg oral enteric coated capsule 1 capsule = 20 mg, By Mouth, Daily, # 90 capsule, 3 Refills, Maintenance, 08/18/23 16:04:00 EDT, [facility] #[id number], Partial fill upon patient request if the [...] 08/18/23 16:01:00 EDT, Route to Pharmacy Electronically, [facility] #[id number] Tablet, Partial fill upon ani... Start Date: 08/18/23 Stop Date: 08/17/24 Status: Ordered traZODone 100 mg oral tablet 200 mg, 2, tablet, By Mouth, Daily at bedtime, # 180 tablet, Refills 3, Tot. Refills 3, Maintenance, 10/05/21 17:36:00 EDT, Route to Pharmacy Electronically, [facility] #[id number], Partial fillupon patient request if the prescription [...] Team Personnel Name: Wild Woods RN Position: [facility] ED RN W/OE and Tasks Member Role: Primary Care Nurse Name: Esme Garcia RN Position: [facility] RN Member Role: Primary Care Nurse Name: Erich Dias RN Position: [facility] RN Member Role: Primary Care Nurse Name: Camila Vazquez RN Position: [facility] RN Member Role: Primary Care Nurse Name: Taylor Beck RN Position: [facility] RN Member Role: Primary Care Nurse Name: Amanda Moraes RN Position: [facility] RN Member Role: Primary Care Nurse Name: Mary Roberson RN Position: [facility] RN Member Role: Primary Care Nurse Name: Tomas Stauffer RN Position: [facility] RN Member Role: Primary Care Nurse Name: Balaji Mayo MD Position: [facility] Physician - Primary Care Member Role: PCP Address: Address: [address] [place] [address] [place] Care Team Related Persons Name: ROSANA NAGY Address: home [address] [place] [id number] Name: GORAN QUINTERO
--- OUTSIDE RECORDS SUMMARY | 2023-12-30 12:52 | XMS_ITS | Continuity of Care Document ---
Author Organization [facility] Kunal Aldair Address [address] [place] [address]- Care Team Providers Care Drinking Water Technician Name Role Phone Maria Esther URIAS, Balaji Quick Primary Care Physician Encounter [facility] Date(s): 12/23/20 - 01/22/21 [facility] Kunal Adult [address] [place] [address]- Allergies, Adverse Reactions, Alerts Substance Reaction Severity [...] acel(Tdap) 2 08/02/17 Given 1Result Comment: [02/15/2018] 17643-711-41 2Result Comment: [08/02/2017] [facility] 66895-480-97 Medications amLODIPine 5 mg oral tablet 2.5 [...] 09/14/20 12:44:00 EDT, Route to Pharmacy Electronically, [facility] #[id number], 180, cm, 09/07/20 10:33:00 EDT, Height Start Date: 09/14/20 Status: Ordered Flonase 50 mcg/inh nasal spray 1 sprays = 50 mcg, Nares, Both, 2 times a day, # 16 Gm, 5 Refills, Maintenance, 09/29/20 16:49:00 EDT, Nasal [place], [facility] #[id number], Partial fill upon patient request if the [...] 09/13/20 6:59:00 EDT, Route to Pharmacy Electronically, [facility] #[id number], Partial fill upon patient request if the [...] tablet, 0 Refills, Maintenance, 09/14/20 12:44:00 EDT, [facility] #[id number], 180, cm, 09/07/20 10:33:00 EDT, Height Start [...] Maintenance, :58:00 EDT, Route to Pharmacy Electronically, [facility] #[id number], Partial fill upon patient request if [...]
--- OUTSIDE RECORDS SUMMARY | 2023-12-30 12:52 | XMS_ITS | Continuity of Care Document ---
Author Organization [facility] Address [address] [place] [address]- Care Team Providers Care Ocean Export Coordinator Name Role Phone Maria Esther URIAS, Balaji Quick Primary Care Physician Encounter [facility] Date(s): 08/03/22 - 09/02/22 [facility] [address] [place], [place] [address] Attending Physician: AdmBertha brown Admitting Physician: Admtr, Ar8 Referring Physician: Admtr, Ar8 Allergies, Adverse Reactions, [...] pneumococcal 23-valent vaccine 12/17/12 Recorded 1Result Comment: [id number] 2Result Comment: [02/15/2018] [id number] 3Result Comment: [08/02/2017] [facility] 57759-603-99 Medications aspirin 81 mg oral delayed release tablet = 81 mg, By Mouth, Daily, # 90 tablet, 3 Refills, Maintenance, 10/05/21 17:34:00 EDT, EC Tablet, [facility] #[id number], Partial fill upon patient request if the prescription is for a schedule II opioid drug., 182, cm, 09/10/21 8:13:00 EDT, Heigh... Start Date: 10/05/21 Status: Ordered atorvastatin 80 mg oral tablet 1 tablet = 80 mg, By Mouth, Daily, # 90 tablet, 3 Refills, Maintenance, 10/05/21 17:34:00 EDT, Tablet, [facility] #[id number], Partial fill upon patient request if the prescription is for a schedule II opioid drug., 182, cm, 09/10/21 8:13:00 EDT,... Start Date: 10/05/21 Status: Ordered BuPROPion (Eqv-Wellbutrin SR) 150 mg/12 hours oral tablet, extended release 1 tablet = 150 mg, By Mouth, 2 times a day, # 180 tablet, 3 Refills, Maintenance, 10/05/21 17:37:00EDT, SR Tablet, [facility] #[id number], Partial fill upon patient request if the prescription is for a schedule II opioid drug., 182, cm, 09/10/21... Start Date: 10/05/21 Status: Ordered clopidogrel 75 mg oral tablet 1, tablet, By Mouth, Daily, # 90 tablet, Refills 3, Tot. Refills 3, Maintenance, 10/05/21 17:34:00 EDT, Route to Pharmacy Electronically, [facility] #[id number], 182, cm, 09/10/21 8:13:00 EDT, Height, 102.7, kg, 09/08/21 16:41:00 EDT, Dry Weight Start Date: 10/05/21 Status: Ordered Flonase 50 mcg/inh nasal spray 1 sprays = 50 mcg, Nares, Both, 2 times a day, # 16 Gm, 5 Refills, Maintenance, 09/29/20 16:49:00 EDT, Nasal [place], [facility] #[id number], Partial fill upon patient request if the [...] 3 Refills, Maintenance, 10/05/21 17:34:00 EDT, Capsule, [facility] #[id number], Partial fill upon patient request if the prescription is for a schedule II opioid drug., 182, cm, 09/10/21 8:13:00 E... Start Date: 10/05/21 Status: Ordered isosorbide mononitrate 30 mg oral tablet, extended release 1 tablet = 30 mg, By Mouth, Daily in AM, # 90 tablet, 3 Refills, 10/05/21 17:35:00 EDT, [facility] #[id number], 182, cm, 09/10/21 8:13:00 EDT, Height, 102.7, kg, 09/08/21 16:41:00 EDT, Dry Weight Start Date: 10/05/21 Status: Ordered lamotrigine 25 mg oral tablet 100 mg, 4, tablet, By Mouth, 2 times a day, # 720 tablet, Refills 3, Tot. Refills 3, Maintenance, 10/06/21 14:57:00 EDT, Route to Pharmacy Electronically, [facility] #[id number], Partial fill upon patient request if the prescription is for a sche... Start Date: 10/06/21 Stop Date: 10/01/22 Status: Ordered lidocaine 5% topical film 1 patch, Topically, Daily, PRN Pain , Mild, remove after 12 hours, # 30 patch, 11 Refills, Maintenance, 02/20/21 7:32:00 EDT, Patch, [facility], Partial fill upon patient request if the prescription is for a schedule II opioid drug., 1 patch T... Start Date: 02/20/21 Status: Ordered metoprolol 25 mg oral tablet 25 mg, 1, tablet, By Mouth, 2 times a day, increase in dose, # 60 tablet, Refills 2, Tot. Refills 2, Maintenance, 06/06/22 14:13:00 EST, Route to Pharmacy Electronically, [facility] #[id number],Partial fill upon patient request if the prescripti... [...] 10/05/21 17:36:00 EDT, Route to Pharmacy Electronically, [facility] #[id number], Partial fillupon patient request if the prescription [...] Team Personnel Name: Wild Woods RN Position: [facility] ED RN W/OE and Tasks Member Role: Primary Care Nurse Name: Camila Vazquez RN Position: [facility] RN Member Role: Primary Care Nurse Name: Amanda Garibay RN Position: S RN Member Role: Primary Care Nurse Name: Mary Roberson RN Position: [facility] RN Member Role: Primary Care Nurse Name: Tomas Stauffer RN Position: [facility] RN Member Role: Primary Care Nurse Name: Balaji Mayo MD Position: [facility] Primary Care Physician Member Role: PCP Address: Address: [address] [place] [address] [place] [address]- Care Team Related Persons Name: YAKOV ROSANA Address: home [address] [place] [id number] Name: GORAN QUINTERO
--- OUTSIDE RECORDS SUMMARY | 2023-12-30 12:52 | XMS_ITS | Continuity of Care Document ---
Author Organization [facility] Kunal Aldair lt Address [address] [place] [address]- Care Team Providers Care Judo Instructor Name Role Phone Balaji Mayo MD Primary Care Physician [phone] Encounter [facility] Date(s): 11/03/22 - 11/10/22 [facility] Adult [address] [place] [address]- Attending Physician: Balaji Mayo MD Allergies, Adverse [...] pneumococcal 23-valent vaccine 12/17/12 Recorded 1Result Comment: [id number] 2Result Comment: [02/15/2018] [id number] 3Result Comment: [08/02/2017] [facility] 63506-632-13 Medications amLODIPine 10 mg oral tablet 10 mg, 1, tablet, By Mouth, Daily, # 90 tablet, Refills 3, Tot. Refills 3, Maintenance, 10/26/22 13:35:00 EDT, Route to Pharmacy Electronically, [facility] #[id number], Partial fill upon patientrequest if the prescription is for a schedule II op... Start Date: 10/26/22 Status: Ordered Aspirin Low Dose 81 mg oral delayed release tablet 1 tablet, By Mouth, Daily, # 90 tablet, 3 Refills, Maintenance, 11/08/22 11:19:00 EDT, [facility] #[id number], 184, cm, 11/03/22 11:28:00 EDT, Height, 106.3, kg, 09/13/22 12:30:00 EDT, Dry Weight Start Date: 11/08/22 Status: Ordered atorvastatin 80 mg oral tablet 1 tablet = 80 mg, By Mouth, Daily, # 90 tablet, 3 Refills, Maintenance, 10/05/21 17:34:00 EDT, Tablet, [facility] #[id number], Partial fill upon patient request if the prescription is for a schedule II opioid drug., 182, cm, 09/10/21 8:13:00 EDT,... Start Date: 10/05/21 Status: Ordered BuPROPion (Eqv-Wellbutrin SR) 150 mg/12 hours oral tablet, extended release 1 tablet = 150 mg, By Mouth, 2 times a day, # 180 tablet, 3 Refills, Maintenance, 10/05/21 17:37:00EDT, SR Tablet, [facility] #[id number], Partial fill upon patient request if the prescription is for a schedule II opioid drug., 182, cm, 09/10/21... Start Date: 10/05/21 Status: Ordered clopidogrel 75 mg oral tablet 1, tablet, By Mouth, Daily, # 90 tablet, Refills 0, Maintenance, 10/07/22 6:36:00 EDT, Route to Pharmacy Electronically, [facility] #[id number], 184, cm, 09/28/22 9:02:00 EDT, Height, 106.3, kg,09/13/22 12:30:00 EDT, Dry Weight Start Date: 10/07/22 Status: Ordered Flonase 50 mcg/inh nasal spray 1 sprays = 50 mcg, Nares, Both, 2 times a day, # 16 Gm, 5 Refills, Maintenance, 09/15/22 8:26:00 EDT, Nasal [place], [facility] #[id number], Partial fill upon patient request if the [...] 3 Refills, Maintenance, 10/05/21 17:34:00 EDT, Capsule, [facility] #[id number], Partial fill upon patient request if the prescription is for a schedule II opioid drug., 182, cm, 09/10/21 8:13:00 E... Start Date: 10/05/21 Status: Ordered isosorbide mononitrate 30 mg oral tablet, extended release 1 tablet, By Mouth, Daily in AM, # 90 tablet, 3 Refills, Maintenance, 10/20/22 16:40:00 EDT, [facility] #[id number], 184, cm, 09/28/22 9:02:00 EDT, Height, 106.3, [...] tablet, 5 Refills, Maintenance, 09/18/22 18:55:00 EDT, [facility] #[id number], 184, cm, 09/15/22 9:12:00 EDT, Height, 106.3, [...] capsule, 1 Refills, Maintenance, 09/28/22 9:21:00 EDT, [facility] #[id number], Partial fill upon patient request if the [...] 10/05/21 17:36:00 EDT, Route to Pharmacy Electronically, [facility] #[id number], Partial fillupon patient request if the prescription [...] to oldest [Reference Range]: 1 2 Height 184 cm (11/03/22 11:28 AM) 184 cm (11/03/22 11:22 AM) Weight 107.7 kg (11/03/22 11:22 AM) Oxygen Saturation [94-100 %] 97 % (11/03/22 11:22 AM) Pulse Rate [55-90 bpm] 71 bpm (11/03/22 11:22 AM) Body Mass Index [18.5-24.99 kg/m2] 31.81 kg/m2 *>HHI* (11/03/22 11:22 AM) Blood Pressure [90-138/55-84 mm Hg] 150/ 79mm Hg *H* (11/03/22 11:28 AM) 163/80mm Hg *H* (11/03/22 11:22 AM) Mode of Delivery (Oxygen) Room air (11/03/22 11:22 AM) Blood pressure sites Arm, right (11/03/22 11:28 AM) Arm, right (11/03/22 11:22 AM) Weight Obtained Via Standing scale (11/03/22 11:22 AM) Social History Social History Type Response Smoking Status Current some day [facility] entered on: 02/15/18 Sex Note * Margareth Klein: PERFORM, SIGN, VERIFY Event Display: Patient Education/Instruction Authored Date: [id number] [facility] *BMP So Kunal Baird Clinical Summary Name ALIYA NAGY Age 67 Years 1955 PCP Maria Esther URIAS, Balaji [id number] Visit Date 11/03/2022 11:15:00 Additional Instructions: Scheduled Appointments?? Future Appointments ?No Future Appointments Scheduled Follow-Up Instructions ?? Diagnosis Medications: Please continue your medications until treatment is completed or stopped by your provider. Discuss any questions related to medications with your provider. Medications to Continue with No Changes These medications were not printed or sent to your pharmacy Amlodipine (amLODIPine 10 mg oral tablet) 1 tab(s) Oral Daily. Refills: 3. Next Dose: Aspirin (aspirin 81 mg oral delayed release tablet) 81 Milligram Oral Daily. Refills: 3. Next Dose: Atorvastatin (atorvastatin 80 mg oral tablet) 1 tab(s) Oral Daily. Refills: 3. Next Dose: BuPROpion (BuPROPion (Eqv-Wellbutrin SR) 150 mg/12 hours oral tablet, extended release) 1 tab(s) Oral twice a day. Refills: 3. Next Dose: Clopidogrel (clopidogrel 75 mg oral tablet) 1 tab(s) Oral Daily. Refills: 0. Next Dose: Fluoxetine (FLUoxetine 10 mg oral capsule) 1 capsule Oral Daily. Next Dose: Fluoxetine (FLUoxetine 40 mg oral capsule) 1 capsule Oral Daily. Refills: 3. Next Dose: Fluticasone Nasal (Flonase 50 mcg/inh nasal spray) 1 spray(s) Nares, Both twice a day. Refills: 5. Next Dose: Isosorbide Mononitrate (isosorbide mononitrate 30 mg oral tablet, extended release) 1 tab(s) Oral Daily in the morning. Refills: 3. Next Dose: Lamotrigine (lamotrigine 100 mg oral tablet) 1 tab(s) Oral twice a day. Next Dose: Metoprolol (Metoprolol Tartrate 25 mg oral tablet) 1 tab(s) Oral twice a day. INCREASE IN DOSE. Refills: 5. Next Dose: Nitroglycerin (Nitrostat 0.4 mg sublingual tablet) 1 tab(s) Sublingual every 5 minutes. prn. Next Dose: Omeprazole (omeprazole 20 mg oral [...] Orders ?No future orders Vital Signs Height 184 cm Weight 107.7 kg BMI 31.81 kg/m2 Blood Pressure 150 mm Hg/79 mm Hg Temperature Pulse Rate 71 bpm Respiratory Rate 02 Sat Mode of Delivery 97 %/Room air You can now view a summary of your hospital visit from the comfort of your home through a free online portal called [employer]. [employer] is a website that allows you to securely view your medical information including discharge summary, medications and follow-up visits. ??You can alsosend a secure electronic message to your doctor???s office to request appointments, renew medications or just ask a question. You can enroll at [email or web address] or register during your next office visit. [...] primary care provider, you may find a [facility] provider by calling [facility] at [phone]. For information about the plan of care [...] Team Personnel Name: Wild Woods RN Position: [facility] ED RN W/OE and Tasks Member Role: Primary Care Nurse Name: Erich Dias RN Position: [facility] RN Member Role: Primary Care Nurse Name: Camila Vazquez RN Position: [facility] RN Member Role: Primary Care Nurse Name: Taylor Beck RN Position: [facility] RN Member Role: Primary Care Nurse Name: Amanda Garibay RN Position: [facility] RN Member Role: Primary Care Nurse Name: Mary Roberson RN Position: [facility] RN Member Role: Primary Care Nurse Name: Tomas Stauffer RN Position: [facility] RN Member Role: Primary Care Nurse Name: Balaji Mayo MD Position: [facility] Physician - Primary Care Member Role: PCP Address: Address: [address] [place] [address]- Name: Fadumo Conti RN Position: [facility] RN Member Role: Primary Care Nurse Care Team Related Persons Name: ROSANA NAGY Address: home [address] [place] [id number] Name: GORAN QUINTERO
--- OUTSIDE RECORDS SUMMARY | 2023-12-30 12:53 | XMS_ITS | Continuity of Care Document ---
Author Organization [facility] Rico Syed Aldair lt Address [address] [place] [address]- Care Team Providers Care Occupational Therapist Aide Name Role Phone Maria Esther URIAS, Balaji Quick Primary Care Physician Encounter [facility] [place] [place] Date(s): 05/31/23 - 06/30/23 [facility] Rico Syed Adult [address] [place] [address]- Allergies, Adverse Reactions, Alerts Substance Reaction Severity Status Claritin Active Clozaril Active Benadryl Active Vistaril Active Nuts Active Abilify Active Nicotine Patch Active Immunizations Given and Recorded Vaccine Date Status Refusal Reason influenza virus vaccine, inactivated 01/28/23 Give n influenza virus vaccine, inactivated 02/17/21 Hakeme rded influenza virus vaccine, inactivated 03/04/20 Give [...] 23-valent vaccine 12/17/12 Recorded 1Result Comment: [02/15/2018] 08909-492-25 2Result Comment: [id number] 3Result Comment: [08/02/2017] [facility] 94890-921-82 Medications Aspirin Low Dose 81 mg oral delayed release tablet 1 tablet, By Mouth, Daily, # 90 tablet, 3 Refills, Maintenance, 11/08/22 11:19:00 EDT, [facility] #[id number], 184, cm, 11/03/22 11:28:00 EDT, Height, 106.3, kg, 09/13/22 12:30:00 EDT, Dry Weight Start Date: 11/08/22 Status: Ordered atorvastatin 80 mg oral tablet 1 tablet = 80 mg, By Mouth, Daily, # 90 tablet, 3 Refills, Maintenance, 12/05/22 4:30:00 EDT, Tablet, [facility] #[id number], Partial fill upon patient request if the prescription is for a schedule II opioid drug., 183, cm, 11/10/22 17:28:00 EDT,... Start Date: 12/05/22 Status: Ordered BuPROPion (Eqv-Wellbutrin SR) 150 mg/12 hours oral tablet, extended release 1 tablet = 150 mg, By Mouth, 2 times a day, # 180 tablet, 3 Refills, Maintenance, 10/05/21 17:37:00EDT, SR Tablet, [facility] #[id number], Partial fill upon patient request if the prescription is for a schedule II opioid drug., 182, cm, 09/10/21... Start Date: 10/05/21 Status: Ordered clopidogrel 75 mg oral tablet 1, tablet, By Mouth, Daily, # 90 tablet, Refills 3, Maintenance, 01/13/23 16:50:00 EDT, Route to Pharmacy Electronically, [facility] #[id number], 183, cm, 12/05/22 16:08:00 EDT, Height, 106.3, kg, 09/13/22 12:30:00 EDT, Dry Weight Start Date: 01/13/23 Status: Ordered Flonase 50 mcg/inh nasal spray 1 sprays = 50 mcg, Nares, Both, 2 times a day, # 16 Gm, 5 Refills, Maintenance, 09/15/22 8:26:00 EDT, Nasal [place], [facility] #[id number], Partial fill upon patient request if the prescription is for a schedule II opioid drug., 1 sprays Nares, [place]... Start Date: 09/15/22 Status: Ordered FLUoxetine 40 mg oral capsule 1 capsule = 40 mg, By Mouth, Daily, # 90 capsule, 3 Refills, Maintenance, 10/05/21 17:34:00 EDT, Capsule, [facility] #[id number], Partial fill upon patient request if the [...] 11 Refills, Maintenance, 11/30/22 6:36:00 EDT, Tablet, [facility] #[id number], Partial fill upon patient requestif the prescription [...] capsule, 1 Refills, Maintenance, 09/28/22 9:21:00 EDT, [facility] #[id number], Partial fill upon patient request if the [...] 10/05/21 17:36:00 EDT, Route to Pharmacy Electronically, [facility] #[id number], Partial fillupon patient request if the prescription [...] Team Personnel Name: Wild Woods RN Position: [facility] ED RN W/OE and Tasks Member Role: Primary Care Nurse Name: Esme Garcia RN Position: [facility] RN Member Role: Primary Care Nurse Name: Erich Dias RN Position: [facility] RN Member Role: Primary Care Nurse Name: Camila Vazquez RN Position: [facility] RN Member Role: Primary Care Nurse Name: Taylor Beck RN Position: [facility] RN Member Role: Primary Care Nurse Name: Amanda Garibay RN Position: [facility] RN Member Role: Primary Care Nurse Name: Mary Roberson RN Position: [facility] RN Member Role: Primary Care Nurse Name: Tomas Stauffer RN Position: [facility] RN Member Role: Primary Care Nurse Name: Balaji Mayo MD Position: [facility] Physician - Primary Care Member Role: PCP Address: Address: [address] [place] [address] [place] [address]- Care Team Related Persons Name: YAKOV ROSANA Address: home [address] [place] [id number] Name: GORAN QUINTERO
--- OUTSIDE RECORDS SUMMARY | 2023-12-30 12:53 | XMS_ITS | Continuity of Care Document ---
Author Organization [facility] Kunal Aldair Address [address] [place] [address]- Care Team Providers Care Bulk Plant Manager Name Role Phone Maria Esther URIAS, Balaji Quick Primary Care Physician Encounter [facility] Date(s): 06/27/23 - 07/27/23 [facility] Rico Chaoley Adult [address] [place] [address]- Allergies, Adverse Reactions, Alerts Substance Reaction Severity [...] 23-valent vaccine 12/17/12 Recorded 1Result Comment: [02/15/2018] 36916-713-40 2Result Comment: [id number] 3Result Comment: [08/02/2017] [facility] 97234-445-24 Medications Aspirin Low Dose 81 mg oral delayed release tablet 1 tablet, By Mouth, Daily, # 90 tablet, 3 Refills, Maintenance, 11/08/22 11:19:00 EDT, [facility] #[id number], 184, cm, 11/03/22 11:28:00 EDT, Height, 106.3, kg, 09/13/22 12:30:00 EDT, Dry Weight Start Date: 11/08/22 Status: Ordered atorvastatin 80 mg oral tablet 1 tablet = 80 mg, By Mouth, Daily, # 90 tablet, 3 Refills, Maintenance, 12/05/22 4:30:00 EDT, Tablet, [facility] #[id number], Partial fill upon patient request if the prescription is for a schedule II opioid drug., 183, cm, 11/10/22 17:28:00 EDT,... Start Date: 12/05/22 Status: Ordered BuPROPion (Eqv-Wellbutrin SR) 150 mg/12 hours oral tablet, extended release 1 tablet = 150 mg, By Mouth, 2 times a day, # 180 tablet, 3 Refills, Maintenance, 10/05/21 17:37:00EDT, SR Tablet, [facility] #[id number], Partial fill upon patient request if the prescription is for a schedule II opioid drug., 182, cm, 09/10/21... Start Date: 10/05/21 Status: Ordered clopidogrel 75 mg oral tablet 1, tablet, By Mouth, Daily, # 90 tablet, Refills 3, Maintenance, 01/13/23 16:50:00 EDT, Route to Pharmacy Electronically, [facility] #[id number], 183, cm, 12/05/22 16:08:00 EDT, Height, 106.3, kg, 09/13/22 12:30:00 EDT, Dry Weight Start Date: 01/13/23 Status: Ordered Flonase 50 mcg/inh nasal spray 1 sprays = 50 mcg, Nares, Both, 2 times a day, # 16 Gm, 5 Refills, Maintenance, 09/15/22 8:26:00 EDT, Nasal [place], [facility] #[id number], Partial fill upon patient request if the prescription is for a schedule II opioid drug., 1 sprays Nares, Tolu... Start Date: 09/15/22 Status: Ordered FLUoxetine 40 mg oral capsule 1 capsule = 40 mg, By Mouth, Daily, # 90 capsule, 3 Refills, Maintenance, 10/05/21 17:34:00 EDT, Capsule, [facility] #[id number], Partial fill upon patient request if the [...] 11 Refills, Maintenance, 11/30/22 6:36:00 EDT, Tablet, [facility] #[id number], Partial fill upon patient requestif the prescription [...] capsule, 1 Refills, Maintenance, 09/28/22 9:21:00 EDT, [facility] #[id number], Partial fill upon patient request if the [...] 10/05/21 17:36:00 EDT, Route to Pharmacy Electronically, [facility] #[id number], Partial fillupon patient request if the prescription [...] Team Personnel Name: Wild Woods RN Position: [facility] ED RN W/OE and Tasks Member Role: Primary Care Nurse Name: Esme Garcia RN Position: [facility] RN Member Role: Primary Care Nurse Name: Erich Dias RN Position: [facility] RN Member Role: Primary Care Nurse Name: Camila Vazquez RN Position: [facility] RN Member Role: Primary Care Nurse Name: Taylor Beck RN Position: [facility] RN Member Role: Primary Care Nurse Name: Amanda Moraes RN Position: [facility] RN Member Role: Primary Care Nurse Name: Mary Roberson RN Position: [facility] RN Member Role: Primary Care Nurse Name: Tomas Stauffer RN Position: [facility] RN Member Role: Primary Care Nurse Name: Balaji Mayo MD Position: [facility] Physician - Primary Care Member Role: PCP Address: Address: [address] [place] [id number]- Care Team Related Persons Name: YAKOVROSANA MASSEY Address: home [address] [place] [id number] Name: GORAN QUINTERO
--- OUTSIDE RECORDS SUMMARY | 2023-12-30 12:53 | XMS_ITS | Continuity of Care Document ---
Author Organization [facility] Kunal Aldair lt Address [address] [place] [address]- Care Team Providers Care Crisis Counselor Name Role Phone Maria Esther URIAS, Balaji Quick Primary Care Physician [facility]counter [facility] Date(s): 03/31/21 - 04/30/21 [facility] Adult [address] [place] [address]- Allergies, Adverse Reactions, Alerts Substance Reaction Severity [...] 23-valent vaccine 12/17/12 Recorded 1Result Comment: [02/15/2018] [id number] 2Result Comment: [08/02/2017] [facility] 82809-342-63 Medications amLODIPine 5 mg oral tablet 2.5 [...] Refills, Maintenance, 02/18/21 9:19:00 EDT, EC Tablet, [facility], Partial fill upon patient request if the prescription is for a schedule II opioid drug., 180, cm, 01/26/21 13:02:00 EDT, Height Start Date: 02/18/21 Status: Ordered atorvastatin 80 mg oral tablet 1 tablet = 80 mg, By Mouth, Daily, # 90 tablet, 3 Refills, Maintenance, 03/25/21 16:47:00 EST, Tablet, [facility] #[id number], Partial fill upon patient request if the [...] 03/25/21 16:47:00 EST, Route to Pharmacy Electronically, [facility] #[id number], 180, cm, 02/19/21 13:36:00 EDT, Height Start Date: 03/25/21 Status: Ordered Flonase 50 mcg/inh nasal spray 1 sprays = 50 mcg, Nares, Both, 2 times a day, # 16 Gm, 5 Refills, Maintenance, 09/29/20 16:49:00 EDT, Nasal [place], [facility] #[id number], Partial fill upon patient request if the [...] 09/13/20 6:59:00 EDT, Route to Pharmacy Electronically, [facility] #[id number], Partial fill upon patient request if the [...] 11 Refills, Maintenance, 02/20/21 7:32:00 EDT, [facility], [facility], Partial fill upon patient request if the prescription is for a schedule II opioid drug., 1 patch T... Start Date: 02/20/21 Status: Ordered Metoprolol Tartrate 25 mg oral tablet 1 tablet, By Mouth, 2 times a day, # 180 tablet, 3 Refills, Maintenance, 03/25/21 16:47:00 EST, [facility] #[id number], 180, cm, 02/19/21 13:36:00 EDT, Height Start [...] :58:00 EDT, [facility]ically[id number], Partial fill upon patient request if the [...]
--- OUTSIDE RECORDS SUMMARY | 2023-12-30 12:53 | XMS_ITS | Continuity of Care Document ---
Author Organization [facility] Kunal Aldair Address [address] [place] [address]- Care Team Providers Care Tree Pruner Name Role Phone Maria Esther URIAS, Balaji Quick Primary Care Physician [facility]counter [facility] Date(s): 11/13/20 - 12/13/20 [facility] Kunal Adult [address] [place] [address]- Allergies, Adverse Reactions, Alerts Substance Reaction Severity [...] acel(Tdap) 2 08/02/17 Given 1Result Comment: [02/15/2018] [id number] 2Result Comment: [08/02/2017] [facility] 99286-385-10 Medications amLODIPine 5 mg oral tablet 2.5 [...] 09/14/20 12:44:00 EDT, Route to Pharmacy Electronically, [facility] #[id number], 180, cm, 09/07/20 10:33:00 EDT, Height Start Date: 09/14/20 Status: Ordered Flonase 50 mcg/inh nasal spray 1 sprays = 50 mcg, Nares, Both, 2 times a day, # 16 Gm, 5 Refills, Maintenance, 09/29/20 16:49:00 EDT, Nasal [place], [facility] #[id number], Partial fill upon patient request if the [...] 09/13/20 6:59:00 EDT, Route to Pharmacy Electronically, [facility] #[id number], Partial fill upon patient request if the [...] tablet, 0 Refills, Maintenance, 09/14/20 12:44:00 EDT, [facility] #[id number], 180, cm, 09/07/20 10:33:00 EDT, Height Start [...] Maintenance, :58:00 EDT, Route to Pharmacy Electronically, [facility] #[id number], Partial fill upon patient request if the [...]
--- OUTSIDE RECORDS SUMMARY | 2023-12-30 12:53 | XMS_ITS | Continuity of Care Document ---
Author Organization [facility] Address [address] [place] [address]- Care Team Providers Care Skeins Yarn Examiner Name Role Phone Maria Esther URIAS, Balaji Quick Primary Care Physician Encounter [facility] [id number] Date(s): 11/14/23 - 11/21/23 [facility] [address] [place], [place] [address] Attending Physician: Yifan Givens DO Referring Physician: Seth Gomez MD Allergies, Adverse Reactions, Alerts Substance Reaction [...] 23-valent vaccine 12/17/12 Recorded 1Result Comment: [02/15/2018] 36729-447-43 2Result Comment: [id number] 3Result Comment: [08/02/2017] [facility] 45775-185-02 Medications Aspirin Low Dose 81 mg oral delayed release tablet 1 tablet, By Mouth, Daily, # 90 tablet, 3 Refills, Maintenance, 11/08/22 11:19:00 EDT, [email or web address] #[id number], 184, cm, 11/03/22 11:28:00 EDT, Height, 106.3, kg, 09/13/22 12:30:00 EDT, Dry Weight Start Date: 11/08/22 Status: Ordered atorvastatin 80 mg oral tablet 1 tablet = 80 mg, By Mouth, Daily, # 90 tablet, 3 Refills, Maintenance, 08/18/23 16:03:00 EDT, Tablet, [email or web address] #[id number], Partial fill upon patient request if the prescription is for a schedule II opioid drug., 183, cm, 08/09/23 10:49:00 EDT... Start Date: 08/18/23 Status: Ordered BuPROPion (Eqv-Wellbutrin SR) 150 mg/12 hours oral tablet, extended release 1 tablet = 150 mg, By Mouth, 2 times a day, # 180 tablet, 3 Refills, Maintenance, 10/05/21 17:37:00EDT, SR Tablet, [email or web address] #[id number], Partial fill upon patient request if the prescription is for a schedule II opioid drug., 182, cm, 09/10/21... Start Date: 10/05/21 Status: Ordered clopidogrel 75 mg oral tablet 1, tablet, By Mouth, Daily, # 90 tablet, Refills 3, Tot. Refills 3, Maintenance, 08/18/23 16:03:00 EDT, Route to Pharmacy Electronically, [email or web address] #[id number], 183, cm, 08/09/23 10:49:00 EDT, Height, 107, kg, 01/26/23 19:57:00 EDT, Dry Weight Start Date: 08/18/23 Status: Ordered FLUoxetine 40 mg oral capsule 1 capsule = 40 mg, By Mouth, Daily, # 90 capsule, 3 Refills, Maintenance, 10/05/21 17:34:00 EDT, Capsule, [email or web address] #[id number], Partial fill upon patient request if the prescription is for a schedule II opioid drug., 182, cm, 09/10/21 8:13:00 E... Start Date: 10/05/21 Status: Ordered fluticasone 50 mcg/inh nasal spray 1 sprays = 50 mcg, Nares, Both, 2 times a day, PRN allergies, # 16 Gm, 11 Refills, Maintenance, 08/18/23 16:05:00 EDT, [place], [email or web address] #[id number], Partial fill upon patient request if the [...] 11 Refills, Maintenance, 08/18/23 16:04:00 EDT, Tablet, [email or web address] #[id number], Partial fill upon patient request if the prescription is for a schedule II opioid dr... Start Date: 08/18/23 Status: Ordered Norvasc 2.5 mg oral tablet 2.5 mg, 1, tablet, By Mouth, Daily, # 90 tablet, Refills 3, Tot. Refills 3, Maintenance, 08/18/23 16:02:00 EDT, Route to Pharmacy Electronically, [email or web address] #[id number], Partial fill upon patient request if the prescription is for a schedule II o... Start Date: 08/18/23 Status: Ordered omeprazole 20 mg oral enteric coated capsule 1 capsule = 20 mg, By Mouth, Daily, # 90 capsule, 3 Refills, Maintenance, 08/18/23 16:04:00 EDT, [email or web address] #[id number], Partial fill upon patient request if the [...] 08/18/23 16:01:00 EDT, Route to Pharmacy Electronically, [email or web address] #[id number] Tablet, Partial fill upon ani... Start Date: 08/18/23 Stop Date: 08/17/24 Status: Ordered traZODone 100 mg oral tablet 200 mg, 2, tablet, By Mouth, Daily at bedtime, # 180 tablet, Refills 3, Tot. Refills 3, Maintenance, 10/05/21 17:36:00 EDT, Route to Pharmacy Electronically, [email or web address] #[id number], Partial fillupon patient request if the prescription [...] Discern Expert 2repeat screening colonoscopy in 2021 Procedures Procedure Date Related Diagnosis Body Site Status Cardiac catheterization 2020 Completed Cataract surgery of right eye Completed Vital Signs Most recent to oldest [Reference Range]: 1 Height 183 cm (11/14/23 12:34 PM) Weight 99.0 kg (11/14/23 12:34 PM) Oxygen Saturation [94-100 %] 100 % (11/14/23 12:34 PM) Pulse Rate [55-90 bpm] 64 bpm (11/14/23 12:34 PM) Body Mass Index [18.5-24.99 kg/m2] 29.56 kg/m2 *H* (11/14/23 12:34 PM) Blood Pressure [90-138/55-84 mm Hg] 149/ 86mm Hg *H* (11/14/23 12:34 PM) Respiratory Rate [16-30 br/min] 18 br/mi n (11/14/23 12:34 PM) Mode of Delivery (Oxygen) Room air (11/14/23 12:34 PM) Blood pressure sites Arm, right (11/14/23 12:34 PM) Weight Obtained Via Standing scale (11/14/23 12:34 PM) Social History Social History Type Response Smoking Status Cigars or pipes denise y within last 30 days entered on: 06/01/23 Sex Patient Care team information Care Team Personnel Name: Wild Woods RN Position: [facility] RN W/OE and Tasks Member Role: Primary Care Nurse Name: Esme Garcia RN Position: S RN Member Role: Primary Care Nurse Name: Erich Dias RN Position: S RN Member Role: Primary Care Nurse Name: Camila Vazquez RN Position: [facility] RN Member Role: Primary Care Nurse Name: Taylor Beck RN Position: [facility] RN Member Role: Primary Care Nurse Name: Amanda Moraes RN Position: [facility] RN Member Role: Primary Care Nurse Name: Mary Roberson RN Position: [facility] RN Member Role: Primary Care Nurse Name: Tomas Stauffer RN Position: [facility] RN Member Role: Primary Care Nurse Name: Balaji Mayo MD Position: [facility] Physician - Primary Care Member Role: PCP Address: Address: [address] [place] [address]- [place] Care Team Related Persons Name: ROSANA NAGY Address: [address] [address] Name: GORAN QUINTERO
--- OUTSIDE RECORDS SUMMARY | 2023-12-30 12:53 | XMS_ITS | Continuity of Care Document ---
Author Organization [facility] Kunal Aldair Address [address] [place] [address]- Care Team Providers Care Engineering Manager Electronics Name Role Phone Maria Esther URIAS, Balaji Quick Primary Care Physician Encounter [facility] Date(s): 01/18/21 - 02/17/21 [facility] Adult [address] [place] [address]- Allergies, Adverse Reactions, Alerts Substance Reaction Severity [...] acel(Tdap) 2 08/02/17 Given 1Result Comment: [02/15/2018] [id number] 2Result Comment: [08/02/2017] [facility] 94944-678-16 Medications amLODIPine 5 mg oral tablet 2.5 [...] 09/14/20 12:44:00 EDT, Route to Pharmacy Electronically, [facility] #[id number], 180, cm, 09/07/20 10:33:00 EDT, Height Start Date: 09/14/20 Status: Ordered Flonase 50 mcg/inh nasal spray 1 sprays = 50 mcg, Nares, Both, 2 times a day, # 16 Gm, 5 Refills, Maintenance, 09/29/20 16:49:00 EDT, Nasal [place], [facility] #[id number], Partial fill upon patient request if the [...] 09/13/20 6:59:00 EDT, Route to Pharmacy Electronically, [facility] #[id number], Partial fill upon patient request if the [...] tablet, 0 Refills, Maintenance, 09/14/20 12:44:00 EDT, [facility] #[id number], 180, cm, 09/07/20 10:33:00 EDT, Height Start [...] Maintenance, 217:58:00 EDT, Route to Pharmacy Electronically, [facility] #[id number], Partial fill upon patient request if the [...]
--- OUTSIDE RECORDS SUMMARY | 2023-12-30 12:53 | XMS_ITS | Continuity of Care Document ---
Author Organization [facility] ter Address [address] [place] [address]- Care Team Providers Care Master Baker Name Role Phone Maria Esther URIAS, Balaji Quick Primary Care Physician [phone] [facility] Date[facility]s): 11/15/23 - 12/15/[address] [address] Attending Physician: Admtr, Ar8 Admitting Physician: Admtr, Ar8 Referring Physician: Admtr, [...] 23-valent vaccine 12/17/12 Recorded 1Result Comment: [02/15/2018] [id number] 2Result Comment: [id number] 3Result Comment: [08/02/2017] [facility] 20738-709-19 Medications acetaminophen 325 mg oral tablet 650 [...] 3 Refills, Maintenance, 08/18/23 16:03:00 EDT, Tablet, [facility] #[id number], Partial fill upon patient request if the prescription is for a schedule II opioid drug., 183, cm, 08/09/23 10:49:00 EDT... Start Date: 08/18/23 Status: Ordered BuPROPion (Eqv-Wellbutrin SR) 150 mg/12 hours oral tablet, extended release 1 tablet = 150 mg, By Mouth, 2 times a day, # 180 tablet, 3 Refills, Maintenance, 10/05/21 17:37:00EDT, SR Tablet, [facility] #[id number], Partial fill upon patient request if the [...] 3 Refills, Maintenance, 10/05/21 17:34:00 EDT, Capsule, [facility] #[id number], Partial fill upon patient request if the prescription is for a schedule II opioid drug., 182, cm, 09/10/21 8:13:00 E... Start Date: 10/05/21 Status: Ordered fluticasone 50 mcg/inh nasal spray 1 sprays = 50 mcg, Nares, Both, 2 times a day, PRN allergies, # 16 Gm, 11 Refills, Maintenance, 08/18/23 16:05:00 EDT, [place], [facility] #[id number], Partial fill upon patient request if the [...] 11 Refills, Maintenance, 08/18/23 16:04:00 EDT, Tablet, [facility] #[id number], Partial fill upon patient request if the prescription is for a schedule II opioid dr... Start Date: 08/18/23 Status: Ordered Norvasc 2.5 mg oral tablet 2.5 mg, 1, tablet, By Mouth, Daily, # 90 tablet, Refills 3, Tot. Refills 3, Maintenance, 08/18/23 16:02:00 EDT, Route to Pharmacy Electronically, [facility] #[id number], Partial fill upon patient request if the prescription is for a schedule II o... Start Date: 08/18/23 Status: Ordered omeprazole 20 mg oral enteric coated capsule 1 capsule = 20 mg, By Mouth, Daily, # 90 capsule, 3 Refills, Maintenance, 08/18/23 16:04:00 EDT, [facility] #[id number], Partial fill upon patient request if the [...] 08/18/23 16:01:00 EDT, Route to Pharmacy Electronically, [facility] #[id number] Tablet, Partial fill upon ani... Start Date: 08/18/23 Stop Date: 08/17/24 Status: Ordered traZODone 100 mg oral tablet 200 mg, 2, tablet, By Mouth, Daily at bedtime, # 180 tablet, Refills 3, Tot. Refills 3, Maintenance, 10/05/21 17:36:00 EDT, Route to Pharmacy Electronically, [facility] #[id number], Partial fillupon patient request if the prescription [...] Care Nurse Name: Amanda Moraes RN Position: [facility] RN Member Role: Primary Care Nurse Name: Nicole Neville RN Position: [facility] RN Member Role: Primary Care Nurse Name: Mary Roberson RN Position: [facility] RN Member Role: Primary Care Nurse Name: Tomas Stauffer RN Position: [facility] RN Member Role: Primary Care Nurse Name: Balaji Mayo MD Position: [facility] Physician - Primary Care Member Role: PCP Address: Address: [address] [place] [address]- Name: Ashley Khanna RN Position: [facility] RN Member Role: Primary Care Nurse Care Team Related Persons Name: ROSANA NAGY Address: home [address] [place] [id number] Name: GORAN QUINTERO
--- OUTSIDE RECORDS SUMMARY | 2023-12-30 12:53 | XMS_ITS | Continuity of Care Document ---
Author Organization [facility] Kunal Aldair lt Address [address] [place] [address]- Care Team Providers Care Finishing Area Operator Name Role Phone Maria Esther URIAS, Balaji Quick Primary Care Physician [phone] [facility]counter [facility] Date(s): 04/21/23 - 05/21/23 [facility] Rico [facility]oley Adult [address] [place] [address]- Allergies, Adverse Reactions, Alerts Substance Reaction Severity [...] 23-valent vaccine 12/17/12 Recorded 1Result Comment: [02/15/2018] [id number] 2Result Comment: [id number] 3Result Comment: [08/02/2017] [facility] 32595-146-59 Medications Aspirin Low Dose 81 mg oral delayed release tablet 1 tablet, By Mouth, Daily, # 90 tablet, 3 Refills, Maintenance, 11/08/22 11:19:00 EDT, [email or web address] #[id number], 184, cm, 11/03/22 11:28:00 EDT, Height, 106.3, kg, 09/13/22 12:30:00 EDT, Dry Weight Start Date: 11/08/22 Status: Ordered atorvastatin 80 mg oral tablet 1 tablet = 80 mg, By Mouth, Daily, # 90 tablet, 3 Refills, Maintenance, 12/05/22 4:30:00 EDT, Tablet, [email or web address] #[id number], Partial fill upon patient request if the prescription is for a schedule II opioid drug., 183, cm, 11/10/22 17:28:00 EDT,... Start Date: 12/05/22 Status: Ordered BuPROPion (Eqv-Wellbutrin SR) 150 mg/12 hours oral tablet, extended release 1 tablet = 150 mg, By Mouth, 2 times a day, # 180 tablet, 3 Refills, Maintenance, 10/05/21 17:37:00EDT, SR Tablet, [email or web address] #[id number], Partial fill upon patient request if the prescription is for a schedule II opioid drug., 182, cm, 09/10/21... Start Date: 10/05/21 Status: Ordered clopidogrel 75 mg oral tablet 1, tablet, By Mouth, Daily, # 90 tablet, Refills 3, Maintenance, 01/13/23 16:50:00 EDT, Route to Pharmacy Electronically, [email or web address] #[id number], 183, cm, 12/05/22 16:08:00 EDT, Height, 106.3, kg, 09/13/22 12:30:00 EDT, Dry Weight Start Date: 01/13/23 Status: Ordered Flonase 50 mcg/inh nasal spray 1 sprays = 50 mcg, Nares, Both, 2 times a day, # 16 Gm, 5 Refills, Maintenance, 09/15/22 8:26:00 EDT, Nasal [place], [facility] #[id number], Partial fill upon patient request if the prescription is for a schedule II opioid drug., 1 sprays Nares, Tolu... Start Date: 09/15/22 Status: Ordered FLUoxetine 40 mg oral capsule 1 capsule = 40 mg, By Mouth, Daily, # 90 capsule, 3 Refills, Maintenance, 10/05/21 17:34:00 EDT, Capsule, [facility] #06139, Partial fill upon patient request if the [...] 11 Refills, Maintenance, 11/30/22 6:36:00 EDT, Tablet, [email or web address] #[id number], Partial fill upon patient requestif the prescription [...] capsule, 1 Refills, Maintenance, 09/28/22 9:21:00 EDT, [facility] #[id number], Partial fill upon patient request if the [...] 10/05/21 17:36:00 EDT, Route to Pharmacy Electronically, [facility] #[id number], Partial fillupon patient request if the prescription [...] RN Position: [facility] ED RN W/OE and Tasks Member Role: Primary Care Nurse Name: Esme Garcia RN Position: [facility] RN Member Role: Primary Care Nurse Name: Erich Dias RN Position: [facility] RN Member Role: Primary Care Nurse Name: Camila Vazquez RN Position: [facility] RN Member Role: Primary Care Nurse Name: Taylor Beck RN Position: [facility] RN Member Role: Primary Care Nurse Name: Amanda Garibay RN Position: [facility] RN Member Role: Primary Care Nurse Name: Mary Roberson RN Position: [facility] RN Member Role: Primary Care Nurse Name: Tomas Stauffer RN Position: [facility] RN Member Role: Primary Care Nurse Name: Balaji Mayo MD Position: [facility] Physician - Primary Care Member Role: PCP Address: Address: [address] [place] [address]- Care Team Related Persons Name: ROSANA NAGY Address: home [address] [place] [address] Name: GORAN QUINTERO
--- OUTSIDE RECORDS SUMMARY | 2023-12-30 12:53 | XMS_ITS | Continuity of Care Document ---
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 06089-117-05 Medications Aspirin Low Dose 81 mg oral delayed release tablet 1 tablet, By Mouth, Daily, # 90 tablet, 3 Refills, Maintenance, 11/08/22 11:19:00 EDT, [facility] #[id number], 184, cm, 11/03/22 11:28:00 EDT, Height, 106.3, kg, 09/13/22 12:30:00 EDT, Dry Weight Start Date: 11/08/22 Status: Ordered atorvastatin 80 mg oral tablet 1 tablet = 80 mg, By Mouth, Daily, # 90 tablet, 3 Refills, Maintenance, 08/18/23 16:03:00 EDT, Tablet, [facility] #[id number], Partial fill upon patient request if the prescription is for a schedule II opioid drug., 183, cm, 08/09/23 10:49:00 EDT... Start Date: 08/18/23 Status: Ordered BuPROPion (Eqv-Wellbutrin SR) 150 mg/12 hours oral tablet, extended release 1 tablet = 150 mg, By Mouth, 2 times a day, # 180 tablet, 3 Refills, Maintenance, 10/05/21 17:37:00EDT, SR Tablet, [facility] #[id number], Partial fill upon patient request if the prescription is for a schedule II opioid drug., 182, cm, 09/10/21... Start Date: 10/05/21 Status: Ordered clopidogrel 75 mg oral tablet 1, tablet, By Mouth, Daily, # 90 tablet, Refills 3, Tot. Refills 3, Maintenance, 08/18/23 16:03:00 EDT, Route to Pharmacy Electronically, [facility] #[id number], 183, cm, 08/09/23 10:49:00 EDT, Height, 107, kg, 01/26/23 19:57:00 EDT, Dry Weight Start Date: 08/18/23 Status: Ordered FLUoxetine 40 mg oral capsule 1 capsule = 40 mg, By Mouth, Daily, # 90 capsule, 3 Refills, Maintenance, 10/05/21 17:34:00 EDT, Capsule, [facility] #[id number], Partial fill upon patient request if the prescription is for a schedule II opioid drug., 182, cm, 09/10/21 8:13:00 E... Start Date: 10/05/21 Status: Ordered fluticasone 50 mcg/inh nasal spray 1 sprays = 50 mcg, Nares, Both, 2 times a day, PRN allergies, # 16 Gm, 11 Refills, Maintenance, 08/18/23 16:05:00 EDT, [place], [facility] #[id number], Partial fill upon patient request if the [...] 11 Refills, Maintenance, 08/18/23 16:04:00 EDT, Tablet, [facility] #[id number], Partial fill upon patient request if the prescription is for a schedule II opioid dr... Start Date: 08/18/23 Status: Ordered Norvasc 2.5 mg oral tablet 2.5 mg, 1, tablet, By Mouth, Daily, # 90 tablet, Refills 3, Tot. Refills 3, Maintenance, 08/18/23 16:02:00 EDT, Route to Pharmacy Electronically, [facility] #[id number], Partial fill upon patient request if the prescription is for a schedule II o... Start Date: 08/18/23 Status: Ordered omeprazole 20 mg oral enteric coated capsule 1 capsule = 20 mg, By Mouth, Daily, # 90 capsule, 3 Refills, Maintenance, 08/18/23 16:04:00 EDT, [facility] #[id number], Partial fill upon patient request if the [...] 08/18/23 16:01:00 EDT, Route to Pharmacy Electronically, [facility] #[id number] Tablet, Partial fill upon ani... Start Date: 08/18/23 Stop Date: 08/17/24 Status: Ordered traZODone 100 mg oral tablet 200 mg, 2, tablet, By Mouth, Daily at bedtime, # 180 tablet, Refills 3, Tot. Refills 3, Maintenance, 10/05/21 17:36:00 EDT, Route to Pharmacy Electronically, [facility] #[id number], Partial fillupon patient request if the prescription [...] Team Personnel Name: Wild Woods RN Position: [facility] ED RN W/OE and Tasks Member Role: Primary Care Nurse Name: Esme Garcia RN Position: [facility] RN Member Role: Primary Care Nurse Name: Erich Dias RN Position: [facility] RN Member Role: Primary Care Nurse Name: Camila Vazquez RN Position: [facility] RN Member Role: Primary Care Nurse Name: Taylor Beck RN Position: [facility] RN Member Role: Primary Care Nurse Name: Amanda Moraes RN Position: [facility] RN Member Role: Primary Care Nurse Name: Mary Roberson RN Position: [facility] RN Member Role: Primary Care Nurse Name: Tomas Stauffer RN Position: [facility] RN Member Role: Primary Care Nurse Name: Balaji Mayo MD Position: [facility] Physician - Primary Care Member Role: PCP Address: Address: [address] [place] [address]- [place] Care Team Related Persons Name: ROSANA NAGY Address: home [address] [place] [address] Name: GORAN QUINTERO
--- OUTSIDE RECORDS SUMMARY | 2023-12-30 12:53 | XMS_ITS | Continuity of Care Document ---
Author Organization 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 Kunal Adult [address] [place] [address]- Allergies, Adverse Reactions, Alerts Substance Reaction Severity [...] pneumococcal 23-valent vaccine 12/17/12 Recorded 1Result Comment: [id number] 2Result Comment: [02/15/2018] 18763-203-59 3Result Comment: [08/02/2017] [facility] 77936-146-92 Medications amLODIPine 10 mg oral tablet 10 mg, 1, tablet, By Mouth, Daily, # 90 tablet, Refills 3, Tot. Refills 3, Maintenance, 10/26/22 13:35:00 EDT, Route to Pharmacy Electronically, [facility] #[id number], Partial fill upon patientrequest if the prescription is for a schedule II op... Start Date: 10/26/22 Status: Ordered aspirin 81 mg oral delayed release tablet = 81 mg, By Mouth, Daily, # 90 tablet, 3 Refills, Maintenance, 10/05/21 17:34:00 EDT, [place] Tablet, [facility] #[id number], Partial fill upon patient request if the prescription is for a schedule II opioid drug., 182, cm, 09/10/21 8:13:00 EDT, [place]... Start Date: 10/05/21 Status: Ordered atorvastatin 80 mg oral tablet 1 tablet = 80 mg, By Mouth, Daily, # 90 tablet, 3 Refills, Maintenance, 10/05/21 17:34:00 EDT, Tablet, [facility] #[id number], Partial fill upon patient request if the prescription is for a schedule II opioid drug., 182, cm, 09/10/21 8:13:00 EDT,... Start Date: 10/05/21 Status: Ordered BuPROPion (Eqv-Wellbutrin SR) 150 mg/12 hours oral tablet, extended release 1 tablet = 150 mg, By Mouth, 2 times a day, # 180 tablet, 3 Refills, Maintenance, 10/05/21 17:37:00EDT, SR Tablet, [facility] #[id number], Partial fill upon patient request if the prescription is for a schedule II opioid drug., 182, cm, 09/10/21... Start Date: 10/05/21 Status: Ordered clopidogrel 75 mg oral tablet 1, tablet, By Mouth, Daily, # 90 tablet, Refills 0, Maintenance, 10/07/22 6:36:00 EDT, Route to Pharmacy Electronically, [facility] #[id number], 184, cm, 09/28/22 9:02:00 EDT, Height, 106.3, kg,09/13/22 12:30:00 EDT, Dry Weight Start Date: 10/07/22 Status: Ordered Flonase 50 mcg/inh nasal spray 1 sprays = 50 mcg, Nares, Both, 2 times a day, # 16 Gm, 5 Refills, Maintenance, 09/15/22 8:26:00 EDT, Nasal [place], [facility] #[id number], Partial fill upon patient request if the [...] 3 Refills, Maintenance, 10/05/21 17:34:00 EDT, Capsule, [facility] #[id number], Partial fill upon patient request if the prescription is for a schedule II opioid drug., 182, cm, 09/10/21 8:13:00 E... Start Date: 10/05/21 Status: Ordered isosorbide mononitrate 30 mg oral tablet, extended release 1 tablet, By Mouth, Daily in AM, # 90 tablet, 3 Refills, Maintenance, 10/20/22 16:40:00 EDT, [facility] #[id number], 184, cm, 09/28/22 9:02:00 EDT, Height, 106.3, [...] tablet, 5 Refills, Maintenance, 09/18/22 18:55:00 EDT, [facility] #[id number], 184, cm, 09/15/22 9:12:00 EDT, Height, 106.3, [...] capsule, 1 Refills, Maintenance, 09/28/22 9:21:00 EDT, [facility] #[id number], Partial fill upon patient request if the [...] 10/05/21 17:36:00 EDT, Route to Pharmacy Electronically, [facility] #[id number], Partial fillupon patient request if the prescription [...] day mata garza entered on: 02/15/18 Sex Patient Care team information Care Team Personnel Name: Wild Woods RN Position: [facility] ED RN W/OE and Tasks Member Role: Primary Care Nurse Name: Camila Vazquez RN Position: [facility] RN Member Role: Primary Care Nurse Name: Taylor Beck RN Position: [facility] RN Member Role: Primary Care Nurse Name: Amanda Garibay RN Position: [facility] RN Member Role: Primary Care Nurse Name: Mary Roberson RN Position: [facility] RN Member Role: Primary Care Nurse Name: Tomas Stauffer RN Position: [facility] RN Member Role: Primary Care Nurse Name: Balaji Mayo MD Position: [facility] Physician - Primary Care Member Role: PCP Address: Address: [address] [place] [address]- Name: Fadumo Conti RN Position: [facility] RN Member Role: Primary Care Nurse Care Team Related Persons Name: ROSANA NAGY Address: home [address] [place] [address] Name: GORAN QUINTERO
--- OUTSIDE RECORDS SUMMARY | 2023-12-30 12:53 | XMS_ITS | Continuity of Care Document ---
Author Organization [facility] Kunal Aldair lt Address [address] [place] [address]- Care Team Providers Care Mba Internship Name Role Phone Balaji Mayo MD Primary Care Physician Encounter [facility] Date(s): 12/05/22 - 12/12/22 [facility] [place] Adult [address] [place] [address]- Attending Physician: Balaji Mayo MD Allergies, Adverse Reactions, Alerts Substance Reaction Severity Status Claritin Active Clozaril Active Benadryl Active Abilify Active Vistaril Active Nuts Active Nicotine Patch Active Immunizations Given and Recorded Vaccine Date Status Refusal Reason pneumococcal 20-valent conjugate vaccine 1 12/20/21 Given influenza virus vaccine, inactivated 02/17/21 Hakeme rded [...] pneumococcal 23-valent vaccine 12/17/12 Recorded 1Result Comment: [id number] 2Result Comment: [02/15/2018] 96656-531-19 3Result Comment: [08/02/2017] [facility] 53777-632-75 Medications amLODIPine 10 mg oral tablet 10 mg, 1, tablet, By Mouth, Daily, # 90 tablet, Refills 3, Tot. Refills 3, Maintenance, 10/26/22 13:35:00 EDT, Route to Pharmacy Electronically, [facility] #[id number], Partial fill upon patientrequest if the prescription is for a schedule II op... Start Date: 10/26/22 Status: Ordered Aspirin Low Dose 81 mg oral delayed release tablet 1 tablet, By Mouth, Daily, # 90 tablet, 3 Refills, Maintenance, 11/08/22 11:19:00 EDT, [facility] #[id number], 184, cm, 11/03/22 11:28:00 EDT, Height, 106.3, kg, 09/13/22 12:30:00 EDT, Dry Weight Start Date: 11/08/22 Status: Ordered atorvastatin 80 mg oral tablet 1 tablet = 80 mg, By Mouth, Daily, # 90 tablet, 3 Refills, Maintenance, 12/05/22 4:30:00 EDT, Tablet, [facility] #[id number], Partial fill upon patient request if the prescription is for a schedule II opioid drug., 183, cm, 11/10/22 17:28:00 EDT,... Start Date: 12/05/22 Status: Ordered BuPROPion (Eqv-Wellbutrin SR) 150 mg/12 hours oral tablet, extended release 1 tablet = 150 mg, By Mouth, 2 times a day, # 180 tablet, 3 Refills, Maintenance, 10/05/21 17:37:00EDT, SR Tablet, [facility] #[id number], Partial fill upon patient request if the prescription is for a schedule II opioid drug., 182, cm, 09/10/21... Start Date: 10/05/21 Status: Ordered clopidogrel 75 mg oral tablet 1, tablet, By Mouth, Daily, # 90 tablet, Refills 0, Maintenance, 10/07/22 6:36:00 EDT, Route to Pharmacy Electronically, [facility] #[id number], 184, cm, 09/28/22 9:02:00 EDT, Height, 106.3, kg,09/13/22 12:30:00 EDT, Dry Weight Start Date: 10/07/22 Status: Ordered Flonase 50 mcg/inh nasal spray 1 sprays = 50 mcg, Nares, Both, 2 times a day, # 16 Gm, 5 Refills, Maintenance, 09/15/22 8:26:00 EDT, Nasal [place], [facility] #[id number], Partial fill upon patient request if the [...] 3 Refills, Maintenance, 10/05/21 17:34:00 EDT, Capsule, [facility] #[id number], Partial fill upon patient request if the prescription is for a schedule II opioid drug., 182, cm, 09/10/21 8:13:00 E... Start Date: 10/05/21 Status: Ordered isosorbide mononitrate 30 mg oral tablet, extended release 1 tablet, By Mouth, Daily in AM, # 90 tablet, 3 Refills, Maintenance, 10/20/22 16:40:00 EDT, [facility] #[id number], 184, cm, 09/28/22 9:02:00 EDT, Height, 106.3, [...] tablet, 5 Refills, Maintenance, 09/18/22 18:55:00 EDT, [facility] #[id number], 184, cm, 09/15/22 9:12:00 EDT, Height, 106.3, kg, 09/13/22 12:30:00 EDT, Dry Weight Start Date: 09/18/22 Status: Ordered Nitrostat 0.4 mg sublingual tablet 1 tablet = 0.4 mg, Sublingual, Every 5 minutes, PRN Chest Pain, prn, # 30 tablet, 11 Refills, Maintenance, 11/30/22 6:36:00 EDT, Tablet, [facility] #[id number], Partial fill upon patient requestif the prescription is for a schedule II opioid lisa... Start Date: 11/30/22 Status: Ordered omeprazole 20 mg oral enteric coated capsule 1 capsule = 20 mg, By Mouth, Daily, # 30 capsule, 1 Refills, Maintenance, 09/28/22 9:21:00 EDT, [facility] #[id number], Partial fill upon patient request if the [...] 10/05/21 17:36:00 EDT, Route to Pharmacy Electronically, [facility] #[id number], Partial fillupon patient request if the prescription [...] oldest [Reference Range]: 1 Height 183 cm (12/05/22 4:08 PM) Weight 108.7 kg (12/05/22 4:08 PM) Oxygen Saturation [94-100 %] 97 % (12/05/22 4:08 PM) Pulse Rate [55-90 bpm] 52 bpm *L* (12/05/22 4:08 PM) Body Mass Index [18.5-24.99 kg/m2] 32.46 kg/m2 *>HHI* (12/05/22 4:08 PM) Blood Pressure [90-138/55-84 mm Hg] 105/ 62mm Hg (12/05/22 4:08 PM) Mode of Delivery (Oxygen) Room air (12/05/22 4:08 PM) Blood pressure sites Arm, right (12/05/22 4:08 PM) Weight Obtained Via Standing scale (12/05/22 4:08 PM) Social History Social History Type Response Smoking Status Current some day smo ker entered on: 02/15/18 Sex Patient Care team information Care Team Personnel Name: Wild Woods RN Position: [facility] ED RN W/OE and Tasks Member Role: Primary Care Nurse Name: Erich Dias RN Position: [facility] RN Member Role: Primary Care Nurse Name: Camila Vazquez RN Position: [facility] RN Member Role: Primary Care Nurse Name: Taylor Beck RN Position: [facility] RN Member Role: Primary Care Nurse Name: Amanda Garibay RN Position: S RN Member Role: Primary Care Nurse Name: Mary Roberson RN Position: [facility] RN Member Role: Primary Care Nurse Name: Xiomy DECKER, Tomas Hawkins Position: [facility] RN Member Role: Primary Care Nurse Name: Maria Esther URIAS, Balaji Quick Position: [facility] Physician - Primary Care Member Role: PCP Address: Address: [address] [place] [address]- Name: Fadumo Conti RN Position: [facility] RN Member Role: Primary Care Nurse Care Team Related Persons Name: ROSANA NAGY Address: [address] [address] Name: GORAN QUINTERO
--- OUTSIDE RECORDS SUMMARY | 2023-12-30 12:53 | XMS_ITS | Continuity of Care Document ---
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 Role Phone Maria Esther URIAS, Balaji Quick Primary Care Physician Encounter [facility] Date(s): 08/22/23 - 09/21/23 [facility] [address] [place] [address], [address] [place] [id number] Allergies, Adverse Reactions, Alerts Substance Reaction [...] 23-valent vaccine 12/17/12 Recorded 1Result Comment: [02/15/2018] 16938-028-08 2Result Comment: [id number] 3Result Comment: [08/02/2017] [facility] 76529-049-66 Medications Aspirin Low Dose 81 mg oral delayed release tablet 1 tablet, By Mouth, Daily, # 90 tablet, 3 Refills, Maintenance, 11/08/22 11:19:00 EDT, [facility] #[id number], 184, cm, 11/03/22 11:28:00 EDT, Height, 106.3, kg, 09/13/22 12:30:00 EDT, Dry Weight Start Date: 11/08/22 Status: Ordered atorvastatin 80 mg oral tablet 1 tablet = 80 mg, By Mouth, Daily, # 90 tablet, 3 Refills, Maintenance, 08/18/23 16:03:00 EDT, Tablet, [facility] #[id number], Partial fill upon patient request if the prescription is for a schedule II opioid drug., 183, cm, 08/09/23 10:49:00 EDT... Start Date: 08/18/23 Status: Ordered BuPROPion (Eqv-Wellbutrin SR) 150 mg/12 hours oral tablet, extended release 1 tablet = 150 mg, By Mouth, 2 times a day, # 180 tablet, 3 Refills, Maintenance, 10/05/21 17:37:00EDT, SR Tablet, [facility] #[id number], Partial fill upon patient request if the prescription is for a schedule II opioid drug., 182, cm, 09/10/21... Start Date: 10/05/21 Status: Ordered clopidogrel 75 mg oral tablet 1, tablet, By Mouth, Daily, # 90 tablet, Refills 3, Tot. Refills 3, Maintenance, 08/18/23 16:03:00 EDT, Route to Pharmacy Electronically, [facility] #[id number], 183, cm, 08/09/23 10:49:00 EDT, Height, 107, kg, 01/26/23 19:57:00 EDT, Dry Weight Start Date: 08/18/23 Status: Ordered FLUoxetine 40 mg oral capsule 1 capsule = 40 mg, By Mouth, Daily, # 90 capsule, 3 Refills, Maintenance, 10/05/21 17:34:00 EDT, Capsule, [facility] #[id number], Partial fill upon patient request if the prescription is for a schedule II opioid drug., 182, cm, 09/10/21 8:13:00 E... Start Date: 10/05/21 Status: Ordered fluticasone 50 mcg/inh nasal spray 1 sprays = 50 mcg, Nares, Both, 2 times a day, PRN allergies, # 16 Gm, 11 Refills, Maintenance, 08/18/23 16:05:00 EDT, [place], [facility] #[id number], Partial fill upon patient request if the [...] 11 Refills, Maintenance, 08/18/23 16:04:00 EDT, Tablet, [facility] #[id number], Partial fill upon patient request if the prescription is for a schedule II opioid dr... Start Date: 08/18/23 Status: Ordered Norvasc 2.5 mg oral tablet 2.5 mg, 1, tablet, By Mouth, Daily, # 90 tablet, Refills 3, Tot. Refills 3, Maintenance, 08/18/23 16:02:00 EDT, Route to Pharmacy Electronically, [facility] #[id number], Partial fill upon patient request if the prescription is for a schedule II o... Start Date: 08/18/23 Status: Ordered omeprazole 20 mg oral enteric coated capsule 1 capsule = 20 mg, By Mouth, Daily, # 90 capsule, 3 Refills, Maintenance, 08/18/23 16:04:00 EDT, [facility] #[id number], Partial fill upon patient request if the [...] 08/18/23 16:01:00 EDT, Route to Pharmacy Electronically, [facility] #[id number] Tablet, Partial fill upon ani... Start Date: 08/18/23 Stop Date: 08/17/24 Status: Ordered traZODone 100 mg oral tablet 200 mg, 2, tablet, By Mouth, Daily at bedtime, # 180 tablet, Refills 3, Tot. Refills 3, Maintenance, 10/05/21 17:36:00 EDT, Route to Pharmacy Electronically, [facility] #[id number], Partial fillupon patient request if the prescription [...] Care Nurse Name: Amanda Moraes RN Position: [facility] RN Member Role: Primary Care Nurse Name: Mary Roberson RN Position: [facility] RN Member Role: Primary Care Nurse Name: Tomas Stauffer RN Position: [facility] RN Member Role: Primary Care Nurse Name: Balaji Mayo MD Position: [facility] Physician - Primary Care Member Role: PCP Address: Address: [address] [place] [address]- [place] Care Team Related Persons Name: ROSANA NAGY Address: home [address] [place] [address] Name: GORAN QUINTERO
--- OUTSIDE RECORDS SUMMARY | 2023-12-30 12:53 | XMS_ITS | Continuity of Care Document ---
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 22856-886-70 Medications Aspirin Low Dose 81 mg oral delayed release tablet 1 tablet, By Mouth, Daily, # 90 tablet, 3 Refills, Maintenance, 11/08/22 11:19:00 EDT, [facility] #[id number], 184, cm, 11/03/22 11:28:00 EDT, Height, 106.3, kg, 09/13/22 12:30:00 EDT, Dry Weight Start Date: 11/08/22 Status: Ordered atorvastatin 80 mg oral tablet 1 tablet = 80 mg, By Mouth, Daily, # 90 tablet, 3 Refills, Maintenance, 12/05/22 4:30:00 EDT, Tablet, [facility] #[id number], Partial fill upon patient request if the prescription is for a schedule II opioid drug., 183, cm, 11/10/22 17:28:00 EDT,... Start Date: 12/05/22 Status: Ordered BuPROPion (Eqv-Wellbutrin SR) 150 mg/12 hours oral tablet, extended release 1 tablet = 150 mg, By Mouth, 2 times a day, # 180 tablet, 3 Refills, Maintenance, 10/05/21 17:37:00EDT, SR Tablet, [facility] #[id number], Partial fill upon patient request if the prescription is for a schedule II opioid drug., 182, cm, 09/10/21... Start Date: 10/05/21 Status: Ordered clopidogrel 75 mg oral tablet 1, tablet, By Mouth, Daily, # 90 tablet, Refills 3, Maintenance, 01/13/23 16:50:00 EDT, Route to Pharmacy Electronically, [facility] #[id number], 183, cm, 12/05/22 16:08:00 EDT, Height, 106.3, kg, 09/13/22 12:30:00 EDT, Dry Weight Start Date: 01/13/23 Status: Ordered Flonase 50 mcg/inh nasal spray 1 sprays = 50 mcg, Nares, Both, 2 times a day, # 16 Gm, 5 Refills, Maintenance, 09/15/22 8:26:00 EDT, Nasal [place], [facility] #[id number], Partial fill upon patient request if the prescription is for a schedule II opioid drug., 1 sprays Nares, [place]... Start Date: 09/15/22 Status: Ordered FLUoxetine 40 mg oral capsule 1 capsule = 40 mg, By Mouth, Daily, # 90 capsule, 3 Refills, Maintenance, 10/05/21 17:34:00 EDT, Capsule, [facility] #[id number], Partial fill upon patient request if the [...] 11 Refills, Maintenance, 11/30/22 6:36:00 EDT, Tablet, [facility] #02909, Partial fill upon patient requestif the prescription [...] capsule, 1 Refills, Maintenance, 09/28/22 9:21:00 EDT, [facility] #[id number], Partial fill upon patient request if the [...] 10/05/21 17:36:00 EDT, Route to Pharmacy Electronically, [facility] #[id number], Partial fillupon patient request if the prescription [...] oldest [Reference Range]: 1 Height 183 cm (03/01/23 10:57 AM) Weight 99.3 kg (03/01/23 10:57 AM) Oxygen Saturation [94-100 %] 95 % (03/01/23 10:57 AM) Pulse Rate [55-90 bpm] 40 bpm *L* (03/01/23 10:57 AM) Body Mass Index [18.5-24.99 kg/m2] 29.65 kg/m2 *H* (03/01/23 10:57 AM) Blood Pressure [90-138/55-84 mm Hg] 99/6 9mm Hg (03/01/23 10:57 AM) Mode of Delivery (Oxygen) Room air (03/01/23 10:57 AM) Blood pressure sites Arm, left (03/01/23 10:57 AM) Weight Obtained Via Standing scale (03/01/23 10:57 AM) Social History Social History Type Response Smoking Status Current some day mata garza entered on: 02/15/18 Sex Note * Margareth Klein: PERFORM, SIGN, VERIFY Event Display: Patient Education/Instruction Authored Date: [id number] [facility] *BMP So Kunal Baird Clinical Summary Name ALIYA NAGY Age 67 Years 1955 PCP Maria Esther URIAS, Balaji Quick PCP Visit Date 03/01/2023 10:46:00 Additional Instructions: Scheduled Appointments?? Future Appointments ?*[facility]??[address] ?Phone:??--?Fax:??-- ?Appt. Date:??03/13/2023?9:00 AM ?Scheduled Provider:??Ultrasound Room 3 [facility] ?*[facility]??[place],??[place],??[address] ?Phone:??--?Fax:??-- ?Appt. Date:??03/15/2023?10:30 AM ?Scheduled Provider:??Rose HYATT , [place] ?*[facility] ?[address] ?[address] ?[place],??[place],??[address] ?Phone:??--?Fax:??-- ?Appt. Date:??03/21/2023?4:00 PM ?Scheduled Provider:??Cindy URIAS, Reagan Diaz Follow-Up Instructions ?? Diagnosis Medications: Please continue [...] tab(s) Oral twice a day. Next Dose: Lidocaine Topical (Lidoderm 5% film) [...] Orders ?No future orders Vital Signs Height 183 cm Weight 99.3 kg BMI 29.65 kg/m2 Blood Pressure 99 mm Hg/69 mm Hg Temperature Pulse Rate 40 bpm Respiratory Rate 02 Sat Mode of Delivery 95 %/Room air You can now view a summary of your hospital visit from the comfort of your home through a free online portal called [employer]. [employer] is a website that allows you to securely view your medical information including discharge summary, medications and follow-up visits. ??You can alsosend a secure electronic message to your doctor???s office to request appointments, renew medications or just ask a question. You can enroll at [email or web address] or register during your next office visit. [...] primary care provider, you may find a [facility] provider by calling [facility] at [phone]. [facility], in keeping with [facility] guidance, no longer requires face masks for [...] Care Nurse Name: Esme Garcia RN Position: [facility] RN Member Role: Primary Care Nurse Name: Erich Dias RN Position: [facility] RN Member Role: Primary Care Nurse Name: Camila Vazquez RN Position: [facility] RN Member Role: [...] Care Member Role: PCP Address: Address: [address] [place] [address]- Name: Fadumo Conti RN Position: [facility] RN Member Role: Primary Care Nurse Care Team Related Persons Name: ROSANA NAGY Address: [address] [address] Name: GORAN QUINTERO
--- OUTSIDE RECORDS SUMMARY | 2023-12-30 12:54 | XMS_ITS | Continuity of Care Document ---
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 Name Role Phone Maria Esther URIAS, Balaji Quick Primary Care Physician [facility] Date(s): 12/26/19 - 01/25/20 [facility] Adult [address] [place] [address]- [facility] Allergies, Adverse Reactions, Alerts Substance Reaction Severity Status Claritin Active Clozaril Active Benadryl Active Vistaril Active Nuts Active Abilify Active Nicotine Patch Active Immunizations Given and Recorded Vaccine Date Status Refusal Reason influenza virus vaccine, inactivated 01/29/19 Give n influenza virus vaccine, inactivated 1 02/15/18 Gi juan tetanus/diphtheria/pertussis, acel(Tdap) 2 08/02/17 Given 1Result Comment: [02/15/2018] 79412-391-18 2Result Comment: [08/02/2017] [facility] 99286-371-64 Medications amLODIPine 5 mg oral tablet 5 mg, 1, tablet, By Mouth, Daily[email or web address], # 90 tablet, Refills 3, Tot.Refills 3, Maintenance, 01/16/20 15:03:00 EDT, Route to Pharmacy Electronically, [facility] #[id number], 180, cm, 12/03/19 13:50:00 EDT, Height Start Date: 01/16/20 Status: Ordered Aspirin Tablet 81 mg, By Mouth, Daily, Maintenance, 04/15/13 17:02:08 Start Date: 04/15/13 Status: Ordered atorvastatin 80 mg oral tablet 1 tablet = 80 mg, By Mouth, Daily in AM, REFAX TO [facility] PER DR COTTRELL, # 90 tablet, 1 Refills, Maintenance, 01/16/20 15:04:00 EDT, Tablet, [facility] #[id number], 180, cm, 12/03/19 13:50:00 EDT, Height, Dry [...] 01/16/20 15:09:00 EDT, Route to Pharmacy Electronically, [facility] #[id number], 180, cm, 12/03/19 13:50:00 EDT, Height Start Date: 01/16/20 Status: Ordered cyclobenzaprine 5 mg oral tablet 1 tablet = 5 mg, By Mouth, 2 times a day, PRN as needed for muscle spasm, REFAX TO [facility] PER [facility], # 60 tablet, 2 Refills, Maintenance, 01/16/20 15:05:00 EDT, Tablet, [facility]#[id number], 180, cm, 12/03/19 13:50:00 EDT, Height, Dry... [...] 01/16/20 15:06:00 EDT, Route to Pharmacy Electronically, [facility] #[id number], 180, cm, 0... Start Date: 01/16/20 Status: Ordered Flomax 0.4 mg oral capsule 0.4 mg, 1, capsule, By Mouth, Daily, REFAX TO [facility] PER DR COTTRELL, # 90 capsule, Refills 1, Tot. Refills 1, Maintenance, 01/16/20 15:08:00 EDT, Route to Pharmacy Electronically, [facility] #[id number], 180, cm, 12/03/19 13:50:00 EDT, Height Start Date: 01/16/20 Status: Ordered Flonase 50 mcg/inh nasal spray 2 sprays, Nares, Both, 2 times a day, # 16 Gm, 0 Refills, Maintenance, 11/16/18 10:23:39 EDT, [place] Start Date: 11/16/18 Status: Ordered isosorbide mononitrate 30 mg oral tablet, extended release 1 tablet, By Mouth, Daily in AM, REFAX TO [facility] PER DR COTTRELL, # 90 tablet, 1 Refills, Maintenance, 01/16/20 15:07:00 EDT, [facility] #[id number], 180, cm, 12/03/19 13:50:00 EDT, Height Start [...] patch, 5 Refills, Maintenance, 01/16/20 15:07:00 EDT, [facility] #[id number], Apply to affected area Topically Thomas... Start Date: 01/16/20 Status: Ordered metoprolol 25 mg oral tablet 25 mg, 1, tablet, By Mouth, 2 times a day, REFAX TO [facility] PER DR COTTRELL, # 180 tablet, Refills 1, Tot. Refills 1, Maintenance, 01/16/20 15:08:00 EDT, Route to Pharmacy Electronically, [facility] #[id number], 180, cm, 12/03/19 13:50:00 EDT,... Start Date: [...]
--- OUTSIDE RECORDS SUMMARY | 2023-12-30 12:54 | XMS_ITS | Continuity of Care Document ---
Author Organization [facility] Kunal Aldair lt Address [address] [place] [address]- Care Team Providers Care Director Of Golf Name Role Phone Maria Esther URIAS, Balaji Quick Primary Care Physician [facility]counter [facility] Date(s): 09/15/21 - 10/15/21 [facility] [place] Adult [address] [place] [address]- Allergies, Adverse Reactions, Alerts Substance Reaction Severity [...] 23-valent vaccine 12/17/12 Recorded 1Result Comment: [02/15/2018] 02855-066-46 2Result Comment: [08/02/2017] [facility] 05917-347-57 Medications aspirin 81 mg oral delayed release tablet = 81 mg, By Mouth, Daily, # 90 tablet, 3 Refills, Maintenance, 10/05/21 17:34:00 EDT, EC Tablet, [facility] #[id number], Partial fill upon patient request if the prescription is for a schedule II opioid drug., 182, cm, 09/10/21 8:13:00 EDT, Heigh... Start Date: 10/05/21 Status: Ordered atorvastatin 80 mg oral tablet 1 tablet = 80 mg, By Mouth, Daily, # 90 tablet, 3 Refills, Maintenance, 10/05/21 17:34:00 EDT, Tablet, [facility] #[id number], Partial fill upon patient request if the prescription is for a schedule II opioid drug., 182, cm, 09/10/21 8:13:00 EDT,... Start Date: 10/05/21 Status: Ordered BuPROPion (Eqv-Wellbutrin SR) 150 mg/12 hours oral tablet, extended release 1 tablet = 150 mg, By Mouth, 2 times a day, # 180 tablet, 3 Refills, Maintenance, 10/05/21 17:37:00EDT, SR Tablet, [facility] #[id number], Partial fill upon patient request if the prescription is for a schedule II opioid drug., 182, cm, 09/10/21... Start Date: 10/05/21 Status: Ordered clopidogrel 75 mg oral tablet 1, tablet, By Mouth, Daily, # 90 tablet, Refills 3, Tot. Refills 3, Maintenance, 10/05/21 17:34:00 EDT, Route to Pharmacy Electronically, [facility] #[id number], 182, cm, 09/10/21 8:13:00 EDT, Height, 102.7, [...] 5 Refills, Maintenance, 09/29/20 16:49:00 EDT, Nasal [place], [facility] #45194, Partial fill upon patient request if the prescription is for a schedule II opioid drug., 1 sprays Nares, B... Start Date: 09/29/20 Status: Ordered FLUoxetine 40 mg oral capsule 1 capsule = 40 mg, By Mouth, Daily, # 90 capsule, 3 Refills, Maintenance, 10/05/21 17:34:00 EDT, Capsule, [facility] #[id number], Partial fill upon patient request if the [...] 90 tablet, 3 Refills, 10/05/21 17:35:00 EDT, [facility] #[id number], 182, cm, 09/10/21 8:13:00 EDT, Height, 102.7, [...] 10/06/21 14:57:00 EDT, Route to Pharmacy Electronically, [facility] #[id number], Partial fill upon patient request if the prescription is for a sche... Start Date: 10/06/21 Stop Date: 10/01/22 Status: Ordered lidocaine 5% topical film 1 patch, Topically, Daily, PRN Pain , Mild, remove after 12 hours, # 30 patch, 11 Refills, Maintenance, 02/20/21 7:32:00 EDT, Patch, [facility], Partial fill upon patient request if the prescription is for a schedule II opioid drug., 1 patch T... Start Date: 02/20/21 Status: Ordered metoprolol 25 mg oral tablet 12.5 mg, 0.5, tablet, By Mouth, 2 times a day, # 90 tablet, Refills 3, Tot. Refills 3, Maintenance,10/05/21 17:40:00 EDT, Route to Pharmacy Electronically, [facility] #[id number], Partial fill upon patient request if the prescription is for a sc... Start Date: 10/05/21 Status: Ordered QUEtiapine 400 mg oral tablet, extended release 400 mg, 1, tablet, By Mouth, Daily in PM, # 90 tablet, Refills 1, Tot. Refills 1, Maintenance, 10/05/21 17:36:00 EDT, Route to Pharmacy Electronically, [facility] #[id number], Partial fill upon patient request if the prescription is for a schedul... Start Date: 10/05/21 Status: Ordered [facility] VISIT FREQUENCY [facility] VISIT FREQUENCY, See Instructions, # 1 each, Refills 0, Tot. Refills 0, Maintenance, PLEASE INCREASE [facility] VISITS TO TWICE A DAY FOR MEDICATION MANAGEMENT AND ADMINISTRATION., 10/06/21 15:08:00 EDT, Supply Start Date: 10/06/21 Status: Ordered traZODone 100 mg oral tablet 200 mg, 2, tablet, By Mouth, Daily at bedtime, # 180 tablet, Refills 3, Tot. Refills 3, Maintenance, 10/05/21 17:36:00 EDT, Route to Pharmacy Electronically, [facility] #[id number], Partial fillupon patient request if the prescription [...] Type Response Smoking Status Current some day [facility] entered on: 02/15/18 Sex
--- OUTSIDE RECORDS SUMMARY | 2023-12-30 12:54 | XMS_ITS | Continuity of Care Document ---
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 Name Role Phone Maria Esther URIAS, Balaji Quick Primary Care Physician [phone] Encounter [facility] Date(s): 10/20/22 - 11/19/22 [facility] Adult [address] [place] [address]- Allergies, Adverse Reactions, Alerts Substance Reaction Severity [...] pneumococcal 23-valent vaccine 12/17/12 Recorded 1Result Comment: [id number] 2Result Comment: [02/15/2018] [id number] 3Result Comment: [08/02/2017] [facility] 72144-959-41 Medications amLODIPine 10 mg oral tablet 10 mg, 1, tablet, By Mouth, Daily, # 90 tablet, Refills 3, Tot. Refills 3, Maintenance, 10/26/22 13:35:00 EDT, Route to Pharmacy Electronically, [facility] #[id number], Partial fill upon patientrequest if the prescription is for a schedule II op... Start Date: 10/26/22 Status: Ordered Aspirin Low Dose 81 mg oral delayed release tablet 1 tablet, By Mouth, Daily, # 90 tablet, 3 Refills, Maintenance, 11/08/22 11:19:00 EDT, [facility] #[id number], 184, cm, 11/03/22 11:28:00 EDT, Height, 106.3, kg, 09/13/22 12:30:00 EDT, Dry Weight Start Date: 11/08/22 Status: Ordered atorvastatin 80 mg oral tablet 1 tablet = 80 mg, By Mouth, Daily, # 90 tablet, 3 Refills, Maintenance, 10/05/21 17:34:00 EDT, Tablet, [facility] #[id number], Partial fill upon patient request if the prescription is for a schedule II opioid drug., 182, cm, 09/10/21 8:13:00 EDT,... Start Date: 10/05/21 Status: Ordered BuPROPion (Eqv-Wellbutrin SR) 150 mg/12 hours oral tablet, extended release 1 tablet = 150 mg, By Mouth, 2 times a day, # 180 tablet, 3 Refills, Maintenance, 10/05/21 17:37:00EDT, SR Tablet, [facility] #[id number], Partial fill upon patient request if the prescription is for a schedule II opioid drug., 182, cm, 09/10/21... Start Date: 10/05/21 Status: Ordered clopidogrel 75 mg oral tablet 1, tablet, By Mouth, Daily, # 90 tablet, Refills 0, Maintenance, 10/07/22 6:36:00 EDT, Route to Pharmacy Electronically, [facility] #[id number], 184, cm, 09/28/22 9:02:00 EDT, Height, 106.3, kg,09/13/22 12:30:00 EDT, Dry Weight Start Date: 10/07/22 Status: Ordered Flonase 50 mcg/inh nasal spray 1 sprays = 50 mcg, Nares, Both, 2 times a day, # 16 Gm, 5 Refills, Maintenance, 09/15/22 8:26:00 EDT, Nasal [place], [facility] #[id number], Partial fill upon patient request if the [...] 3 Refills, Maintenance, 10/05/21 17:34:00 EDT, Capsule, [facility] #[id number], Partial fill upon patient request if the prescription is for a schedule II opioid drug., 182, cm, 09/10/21 8:13:00 E... Start Date: 10/05/21 Status: Ordered isosorbide mononitrate 30 mg oral tablet, extended release 1 tablet, By Mouth, Daily in AM, # 90 tablet, 3 Refills, Maintenance, 10/20/22 16:40:00 EDT, [facility] #[id number], 184, cm, 09/28/22 9:02:00 EDT, Height, 106.3, [...] tablet, 5 Refills, Maintenance, 09/18/22 18:55:00 EDT, [facility] #[id number], 184, cm, 09/15/22 9:12:00 EDT, Height, 106.3, [...] capsule, 1 Refills, Maintenance, 09/28/22 9:21:00 EDT, [facility] #81948, Partial fill upon patient request if the [...] 10/05/21 17:36:00 EDT, Route to Pharmacy Electronically, [facility] #[id number], Partial fillupon patient request if the prescription [...] Care Nurse Name: Amanda Garibay RN Position: [facility] RN Member Role: Primary Care Nurse Name: Mary Roberson RN Position: [facility] RN Member Role: Primary Care Nurse Name: Tomas Stauffer RN Position: [facility] RN Member Role: Primary Care Nurse Name: Balaji Mayo MD Position: [facility] Physician - Primary Care Member Role: PCP Address: Address: [address] [place] [address]- Name: Fadumo Conti RN Position: [facility] RN Member Role: Primary Care Nurse Care Team Related Persons Name: ROSANA NAGY Address: [address] [address] Name: GORAN QUINTERO
--- OUTSIDE RECORDS SUMMARY | 2023-12-30 12:54 | XMS_ITS | Continuity of Care Document ---
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 Name Role Phone Balaji Mayo MD Primary Care Physician Encounter [facility] Date(s): 12/03/20 - 12/10/20 [facility] Adult [address] [place] [address]- Encounter Diagnosis Hyperlipidemia(Discharge Diagnosis) - 12/03/20 Schizoaffective schizophrenia(Discharge Diagnosis) - 12/03/20 HTN (hypertension)(Discharge Diagnosis) - 12/03/20 Tobacco use(Discharge Diagnosis) - 12/03/20 Bipolar disorder(Discharge Diagnosis) - 12/03/20 Carotid artery stenosis(Discharge Diagnosis) - 12/03/20 AAA (abdominal aortic aneurysm)(Discharge Diagnosis) - 12/03/20 Attending Physician: Balaji Mayo MD Allergies, Adverse [...] acel(Tdap) 2 08/02/17 Given 1Result Comment: [02/15/2018] 30485-821-54 2Result Comment: [08/02/2017] [facility] 78181-453-08 Medications amLODIPine 5 mg oral tablet 2.5 [...] 09/14/20 12:44:00 EDT, Route to Pharmacy Electronically, [facility] #[id number], 180, cm, 09/07/20 10:33:00 EDT, Height Start Date: 09/14/20 Status: Ordered Flonase 50 mcg/inh nasal spray 1 sprays = 50 mcg, Nares, Both, 2 times a day, # 16 Gm, 5 Refills, Maintenance, 09/29/20 16:49:00 EDT, Nasal [place], [email or web address] #[id number], Partial fill upon patient request if the [...] 09/13/20 6:59:00 EDT, Route to Pharmacy Electronically, [facility] #[id number], Partial fill upon patient request if the [...] tablet, 0 Refills, Maintenance, 09/14/20 12:44:00 EDT, [facility] #[id number], 180, cm, 09/07/20 10:33:00 EDT, Height Start [...] Maintenance, :58:00 EDT, Route to Pharmacy Electronically, [facility] #[id number], Partial fill upon patient request if the [...] by duplex 3repeat screening colonoscopy in 2021 Diagnosis Diagnosis Type Effective Dates Health Status Clinical Service Informant AAA (abdominal aortic aneurysm) Discharge Diagnosis 12/03/20 Carotid artery stenosis Discharge Diagnosis 12/03/20 Bipolar disorder Discharge Diagnosis 12/03/20 HTN (hypertension) Discharge Diagnosis 12/03/20 Hyperlipidemia Discharge Diagnosis 12/03/20 Schizoaffective schizophrenia Discharge Diagnosis 12/03/20 Tobacco use Discharge Diagnosis 12/03/20 Vital Signs Most recent to oldest [Reference Range]: 1 Height 180 cm (12/03/20 9:33 AM) Weight 106.5 kg (12/03/20 9:33 AM) Oxygen Saturation [94-100 %] 98 % (12/03/20 9:33 AM) Pulse Rate [55-90 bpm] 55 bpm (12/03/20 9:33 AM) Body Mass Index [18.5-24.99] 32.87 *>HHI* (12/03/20 9:33 AM) Blood Pressure [90-138/55-84 mm Hg] 110/ 70mm Hg (12/03/20 9:33 AM) Temperature [96.8-100.4 DegF] 98.7 DegF (12/03/20 9:33 AM) Mode of Delivery (Oxygen) Room air (12/03/20 9:33 AM) Blood pressure sites Arm, right (12/03/20 9:33 AM) Temperature Route Oral (12/03/20 9:33 AM) Weight Obtained Via Standing scale (12/03/20 9:33 AM) Social History Social History Type Response Smoking Status Current some day mata garza entered on: 02/15/18 Sex
--- OUTSIDE RECORDS SUMMARY | 2023-12-30 12:54 | XMS_ITS | Continuity of Care Document ---
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 Name Role Phone Maria Esther URIAS, Balaji Quick Primary Care Physician [place] [facility] [place] 05/25/22 - 06/30/22 [facility] [address] [place], [place] [address] Attending Physician: Hope Dover NP Admitting Physician: Hope Dover NP Allergies, Adverse Reactions, Alerts Substance Reaction Severity Status Claritin Active Clozaril Active Benadryl Active Nuts Active Abilify Active Vistaril Active Nicotine Patch Active Immunizations Given and [...] pneumococcal 23-valent vaccine 12/17/12 Recorded 1Result Comment: [id number] 2Result Comment: [02/15/2018] 88370-149-85 3Result Comment: [08/02/2017] [facility] 89635-917-92 Medications aspirin 81 mg oral delayed release tablet = 81 mg, By Mouth, Daily, # 90 tablet, 3 Refills, Maintenance, 10/05/21 17:34:00 EDT, EC Tablet, [facility] #[id number], Partial fill upon patient request if the prescription is for a schedule II opioid drug., 182, cm, 09/10/21 8:13:00 EDT, Heigh... Start Date: 10/05/21 Status: Ordered atorvastatin 80 mg oral tablet 1 tablet = 80 mg, By Mouth, Daily, # 90 tablet, 3 Refills, Maintenance, 10/05/21 17:34:00 EDT, Tablet, [facility] #[id number], Partial fill upon patient request if the prescription is for a schedule II opioid drug., 182, cm, 09/10/21 8:13:00 EDT,... Start Date: 10/05/21 Status: Ordered BuPROPion (Eqv-Wellbutrin SR) 150 mg/12 hours oral tablet, extended release 1 tablet = 150 mg, By Mouth, 2 times a day, # 180 tablet, 3 Refills, Maintenance, 10/05/21 17:37:00EDT, SR Tablet, [facility] #[id number], Partial fill upon patient request if the prescription is for a schedule II opioid drug., 182, cm, 09/10/21... Start Date: 10/05/21 Status: Ordered clopidogrel 75 mg oral tablet 1, tablet, By Mouth, Daily, # 90 tablet, Refills 3, Tot. Refills 3, Maintenance, 10/05/21 17:34:00 EDT, Route to Pharmacy Electronically, [facility] #[id number], 182, cm, 09/10/21 8:13:00 EDT, Height, 102.7, kg, 09/08/21 16:41:00 EDT, Dry Weight Start Date: 10/05/21 Status: Ordered Flonase 50 mcg/inh nasal spray 1 sprays = 50 mcg, Nares, Both, 2 times a day, # 16 Gm, 5 Refills, Maintenance, 09/29/20 16:49:00 EDT, Nasal [place], [facility] #[id number], Partial fill upon patient request if the [...] 3 Refills, Maintenance, 10/05/21 17:34:00 EDT, Capsule, [facility] #[id number], Partial fill upon patient request if the prescription is for a schedule II opioid drug., 182, cm, 09/10/21 8:13:00 E... Start Date: 10/05/21 Status: Ordered isosorbide mononitrate 30 mg oral tablet, extended release 1 tablet = 30 mg, By Mouth, Daily in AM, # 90 tablet, 3 Refills, 10/05/21 17:35:00 EDT, [facility] #[id number], 182, cm, 09/10/21 8:13:00 EDT, Height, 102.7, kg, 09/08/21 16:41:00 EDT, Dry Weight Start Date: 10/05/21 Status: Ordered lamotrigine 25 mg oral tablet 100 mg, 4, tablet, By Mouth, 2 times a day, # 720 tablet, Refills 3, Tot. Refills 3, Maintenance, 10/06/21 14:57:00 EDT, Route to Pharmacy Electronically, [facility] #[id number], Partial fill upon patient request if the [...] 06/06/22 14:13:00 EST, Route to Pharmacy Electronically, [facility] #[id number],Partial fill upon patient request if the prescripti... [...] 10/05/21 17:36:00 EDT, Route to Pharmacy Electronically, [facility] #[id number], Partial fillupon patient request if the prescription [...] Team Personnel Name: [place] RN Position: [facility] ED RN W/OE and Tasks Member Role: Primary Care Nurse Name: Camila Vazquez RN Position: [facility] RN Member Role: Primary Care Nurse Name: Amanda Garibay RN Position: [facility] RN Member Role: Primary Care Nurse Name: Mary Roberson RN Position: [facility] RN Member Role: Primary Care Nurse Name: Tomas Stauffer RN Position: [facility] RN Member Role: Primary Care Nurse Name: Balaji Mayo MD Position: [facility] Primary Care Physician Member Role: PCP Address: Address: [address] [place] [address]- Care Team Related Persons Name: YAKOV ROSANA Address: home [address] [place] [address] Name: GORAN QUINTERO
--- OUTSIDE RECORDS SUMMARY | 2023-12-30 12:54 | XMS_ITS | Continuity of Care Document ---
Author Organization [facility] Kunal Aldair Address [address] [place] [address]- Care Team Providers Care Senior Gis Analyst Name Role Phone Maria Esther URIAS, Balaji Quick Primary Care Physician Encounter [facility] Date(s): 11/27/19 - 12/27/19 [facility] [place] Adult [address] [place] [address]- [facility] Allergies, Adverse Reactions, Alerts Substance Reaction Severity Status Claritin Active Clozaril Active Benadryl Active Vistaril Active Nuts Active Abilify Active Nicotine Patch Active Immunizations Given and Recorded Vaccine Date Status Refusal Reason influenza virus vaccine, inactivated 01/29/19 Give n influenza virus vaccine, inactivated 1 02/15/18 Gi juan tetanus/diphtheria/pertussis, acel(Tdap) 2 08/02/17 Given 1Result Comment: [02/15/2018] 66225-388-06 2Result Comment: [08/02/2017] [facility] 32396-615-58 Medications amLODIPine 5 mg oral tablet 5 mg, 1, tablet, By Mouth, Daily, # 90 tablet, Refills 3, Tot. Refills 3, Maintenance, 11/26/19 16:38:00 EDT, Route to Pharmacy Electronically, [facility]/pharmacy #[id number], 180, cm, 06/26/19 8:31:00 EST, Height Start Date: 11/26/19 Status: Ordered Aspirin Tablet 81 mg, By Mouth, Daily, Maintenance, 04/15/13 17:02:08 Start Date: 04/15/13 Status: Ordered atorvastatin 80 mg oral tablet 1 tablet = 80 mg, By Mouth, Daily in AM, # 90 tablet, 1 Refills, Maintenance, 11/19/19 15:39:00 EDT, Tablet, [facility]/pharmacy #[id number], 180, cm, 06/26/19 8:31:00 [...] TAKE 1 TABLET BY MOUTH EVERY DAY, [facility]/pharmacy #[id number] Start Date: 03/14/19 Status: Ordered cyclobenzaprine 5 mg oral tablet 1 tablet = 5 mg, By Mouth, 2 times a day, PRN as needed for muscle spasm, # 60 tablet, 2 Refills, Maintenance, 04/07/19 18:48:10 EST, Tablet, [facility]/pharmacy #[id number], 180, cm, 01/29/19 9:22:52 [...] 10/24/19 18:11:00 EDT, Route to Pharmacy Electronically, [facility]/pharmacy #[id number], 180, cm, 06/26/19 8:31:00 EST, Height Start Date: 10/24/19 Status: Ordered Flomax 0.4 mg oral capsule 0.4 mg, 1, capsule, By Mouth, Daily, # 30 capsule, Refills 11, Tot. Refills 11, Maintenance, 04/20/18 9:51:29 EST, Route to Pharmacy Electronically, [id number], [facility]/pharmacy#2070 Start Date: 04/20/18 Status: Ordered Flonase 50 mcg/inh nasal spray 2 sprays, Nares, Both, 2 times a day, # 16 Gm, 0 Refills, Maintenance, 11/16/18 10:23:39 EDT, [place] Start Date: 11/16/18 Status: Ordered isosorbide mononitrate 30 mg oral tablet, extended release 30 mg, 1, tablet, By Mouth, Daily in AM, # 90 tablet, Refills 1, Tot. Refills 1, Maintenance, 04/25/19 15:31:00 EST, Route to Pharmacy Electronically, [facility]/pharmacy #[id number], 180, cm, 01/29/19 9:22:00 EDT, Height, 109.8, [...] 30 patch,5 Refills, Maintenance, 06/26/19 9:19:00 EST, [facility]/pharmacy #[id number], Apply to affected area Topically Daily; remove patches after 12 hours, 180, cm, ... Start Date: 06/26/19 Status: Ordered metoprolol 25 mg oral tablet 25 mg, 1, tablet, By Mouth, 2 times a day, # 60 tablet, Refills 5, Tot. Refills 5, Maintenance, 09/18/19 16:23:00 EDT, Route to Pharmacy Electronically, [facility]/pharmacy #207, 180, cm, 06/26/19 8:31:00 EST, Height, Dry [...]
--- OUTSIDE RECORDS SUMMARY | 2023-12-30 12:54 | XMS_ITS | Continuity of Care Document ---
Author Organization [facility] Kunal Aldair lt Address [address] [place] [address]- Care Team Providers Care Soil Biology Teacher Name Role Phone Maria Esther URIAS, Balaji Quick Primary Care Physician Encounter [facility] Date(s): 11/18/21 - 12/18/21 [facility] Adult [address] [place] [address]- Allergies, Adverse Reactions, Alerts Substance Reaction Severity [...] 23-valent vaccine 12/17/12 Recorded 1Result Comment: [02/15/2018] 02771-833-61 2Result Comment: [08/02/2017] [facility] 39731-318-98 Medications aspirin 81 mg oral delayed release tablet = 81 mg, By Mouth, Daily, # 90 tablet, 3 Refills, Maintenance, 10/05/21 17:34:00 EDT, EC Tablet, [facility] #[id number], Partial fill upon patient request if the prescription is for a schedule II opioid drug., 182, cm, 09/10/21 8:13:00 EDT, Heigh... Start Date: 10/05/21 Status: Ordered atorvastatin 80 mg oral tablet 1 tablet = 80 mg, By Mouth, Daily, # 90 tablet, 3 Refills, Maintenance, 10/05/21 17:34:00 EDT, Tablet, [facility][id number], Partial fill upon patient request if the prescription is for a schedule II opioid drug., 182, cm, 09/10/21 8:13:00 EDT,... Start Date: 10/05/21 Status: Ordered BuPROPion (Eqv-Wellbutrin SR) 150 mg/12 hours oral tablet, extended release 1 tablet = 150 mg, By Mouth, 2 times a day, # 180 tablet, 3 Refills, Maintenance, 10/05/21 17:37:00EDT, SR Tablet, [facility] #[id number], Partial fill upon patient request if the prescription is for a schedule II opioid drug., 182, cm, 09/10/21... Start Date: 10/05/21 Status: Ordered clopidogrel 75 mg oral tablet 1, tablet, By Mouth, Daily, # 90 tablet, Refills 3, Tot. Refills 3, Maintenance, 10/05/21 17:34:00 EDT, Route to Pharmacy Electronically, [facility] #[id number], 182, cm, 09/10/21 8:13:00 EDT, Height, 102.7, [...] 5 Refills, Maintenance, 09/29/20 16:49:00 EDT, Nasal [place], [facility] #[id number], Partial fill upon patient request if the prescription is for a schedule II opioid drug., 1 sprays Nares, B... Start Date: 09/29/20 Status: Ordered FLUoxetine 40 mg oral capsule 1 capsule = 40 mg, By Mouth, Daily, # 90 capsule, 3 Refills, Maintenance, 10/05/21 17:34:00 EDT, Capsule, [facility] #[id number], Partial fill upon patient request if the [...] 90 tablet, 3 Refills, 10/05/21 17:35:00 EDT, [facility] #[id number], 182, cm, 09/10/21 8:13:00 EDT, Height, 102.7, [...] 10/06/21 14:57:00 EDT, Route to Pharmacy Electronically, [facility] #[id number], Partial fill upon patient request if the prescription is for a sche... Start Date: 10/06/21 Stop Date: 10/01/22 Status: Ordered lidocaine 5% topical film 1 patch, Topically, Daily, PRN Pain , Mild, remove after 12 hours, # 30 patch, 11 Refills, Maintenance, 02/20/21 7:32:00 EDT, Patch, [facility], Partial fill upon patient request if the prescription is for a schedule II opioid drug., 1 patch T... Start Date: 02/20/21 Status: Ordered metoprolol 25 mg oral tablet 12.5 mg, 0.5, tablet, By Mouth, 2 times a day, # 90 tablet, Refills 3, Tot. Refills 3, Maintenance,10/05/21 17:40:00 EDT, Route to Pharmacy Electronically, [facility] #[id number], Partial fill upon patient request if the prescription is for a sc... Start Date: 10/05/21 Status: Ordered QUEtiapine 400 mg oral tablet, extended release 400 mg, 1, tablet, By Mouth, Daily in PM, # 90 tablet, Refills 1, Tot. Refills 1, Maintenance, 10/05/21 17:36:00 EDT, Route to Pharmacy Electronically, [facility] #[id number], Partial fill upon patient request if the prescription is for a schedul... Start Date: 10/05/21 Status: Ordered PRISON VISIT FREQUENCY PRISON VISIT FREQUENCY, See Instructions, # 1 each, Refills 0, Tot. Refills 0, Maintenance, PLEASE INCREASE PRISON VISITS TO TWICE A DAY FOR MEDICATION MANAGEMENT AND ADMINISTRATION., 10/06/21 15:08:00 EDT, Supply Start Date: 10/06/21 Status: Ordered traZODone 100 mg oral tablet 200 mg, 2, tablet, By Mouth, Daily at bedtime, # 180 tablet, Refills 3, Tot. Refills 3, Maintenance, 10/05/21 17:36:00 EDT, Route to Pharmacy Electronically, [facility] #[id number], Partial fillupon patient request if the prescription [...] day mata garza entered on: 02/15/18 Sex Care Team Personnel Name: Maria Esther URIAS, Balaji Quick Address: [address] [place] [address] [place], [place] [address]
--- OUTSIDE RECORDS SUMMARY | 2023-12-30 12:54 | XMS_ITS | Continuity of Care Document ---
Author Organization [facility] Kunal Aldair lt Address [address] [place] [address]- Care Team Providers Care Steeping Press Operator Name Role Phone Maria Esther URIAS, Balaji Quick Primary Care Physician [place] [facility] [place]): 10/11/21 - 10/18/21 [facility] Adult [address] [place] [address]- Encounter Diagnosis Frequent falls(Discharge Diagnosis) - 10/11/21 AAA (abdominal aortic aneurysm)(Discharge Diagnosis) - 10/11/21 Attending Physician: Pattie Mattson NP Referring Physician: Balaji Mayo MD Allergies, [...] 23-valent vaccine 12/17/12 Recorded 1Result Comment: [02/15/2018] 53941-948-12 2Result Comment: [08/02/2017] [facility] 14280-794-13 Medications aspirin 81 mg oral delayed release tablet = 81 mg, By Mouth, Daily, # 90 tablet, 3 Refills, Maintenance, 10/05/21 17:34:00 EDT, EC Tablet, [facility] #[id number], Partial fill upon patient request if the prescription is for a schedule II opioid drug., 182, cm, 09/10/21 8:13:00 EDT, Heigh... Start Date: 10/05/21 Status: Ordered atorvastatin 80 mg oral tablet 1 tablet = 80 mg, By Mouth, Daily, # 90 tablet, 3 Refills, Maintenance, 10/05/21 17:34:00 EDT, Tablet, [facility] #[id number], Partial fill upon patient request if the prescription is for a schedule II opioid drug., 182, cm, 09/10/21 8:13:00 EDT,... Start Date: 10/05/21 Status: Ordered BuPROPion (Eqv-Wellbutrin SR) 150 mg/12 hours oral tablet, extended release 1 tablet = 150 mg, By Mouth, 2 times a day, # 180 tablet, 3 Refills, Maintenance, 10/05/21 17:37:00EDT, SR Tablet, [facility] #[id number], Partial fill upon patient request if the prescription is for a schedule II opioid drug., 182, cm, 09/10/21... Start Date: 10/05/21 Status: Ordered clopidogrel 75 mg oral tablet 1, tablet, By Mouth, Daily, # 90 tablet, Refills 3, Tot. Refills 3, Maintenance, 10/05/21 17:34:00 EDT, Route to Pharmacy Electronically, [facility] #[id number], 182, cm, 09/10/21 8:13:00 EDT, Height, 102.7, [...] 5 Refills, Maintenance, 09/29/20 16:49:00 EDT, Nasal [place], [facility] #[id number], Partial fill upon patient request if the prescription is for a schedule II opioid drug., 1 sprays Nares, B... Start Date: 09/29/20 Status: Ordered FLUoxetine 40 mg oral capsule 1 capsule = 40 mg, By Mouth, Daily, # 90 capsule, 3 Refills, Maintenance, 10/05/21 17:34:00 EDT, Capsule, [facility] #[id number], Partial fill upon patient request if the [...] 90 tablet, 3 Refills, 10/05/21 17:35:00 EDT, [facility] #[id number], 182, cm, 09/10/21 8:13:00 EDT, Height, 102.7, [...] 10/06/21 14:57:00 EDT, Route to Pharmacy Electronically, [facility] #[id number], Partial fill upon patient request if the prescription is for a sche... Start Date: 10/06/21 Stop Date: 10/01/22 Status: Ordered lidocaine 5% topical film 1 patch, Topically, Daily, PRN Pain , Mild, remove after 12 hours, # 30 patch, 11 Refills, Maintenance, 02/20/21 7:32:00 EDT, Patch, [facility], Partial fill upon patient request if the prescription is for a schedule II opioid drug., 1 patch T... Start Date: 02/20/21 Status: Ordered metoprolol 25 mg oral tablet 12.5 mg, 0.5, tablet, By Mouth, 2 times a day, # 90 tablet, Refills 3, Tot. Refills 3, Maintenance,10/05/21 17:40:00 EDT, Route to Pharmacy Electronically, [facility] #[id number], Partial fill upon patient request if the prescription is for a sc... Start Date: 10/05/21 Status: Ordered QUEtiapine 400 mg oral tablet, extended release 400 mg, 1, tablet, By Mouth, Daily in PM, # 90 tablet, Refills 1, Tot. Refills 1, Maintenance, 10/05/21 17:36:00 EDT, Route to Pharmacy Electronically, [facility] #[id number], Partial fill upon patient request if the prescription is for a schedul... Start Date: 10/05/21 Status: Ordered CARE HOME VISIT FREQUENCY CARE HOME VISIT FREQUENCY, See Instructions, # 1 each, Refills 0, Tot. Refills 0, Maintenance, PLEASE INCREASE CARE HOME VISITS TO TWICE A DAY FOR MEDICATION MANAGEMENT AND ADMINISTRATION., 10/06/21 15:08:00 EDT, Supply Start Date: 10/06/21 Status: Ordered traZODone 100 mg oral tablet 200 mg, 2, tablet, By Mouth, Daily at bedtime, # 180 tablet, Refills 3, Tot. Refills 3, Maintenance, 10/05/21 17:36:00 EDT, Route to Pharmacy Electronically, [facility] #[id number], Partial fillupon patient request if the prescription [...] Diagnosis Diagnosis Type Effective Dates Health Status Cl inical Service Informant Frequent falls Discharge Diagnosis 10/11/21 AAA (abdominal aortic aneurysm) Discharge Diagnosis 10/11/21 Vital Signs Most recent to oldest [Reference Range]: 1 2 3 Height 182 cm (10/11/21 3:36 PM) 182 cm (10/11/21 3:36 PM) 182 cm (10/11/21 3:20 PM) Weight 107.0 kg (10/11/21 2:55 PM) Oxygen Saturation [94-100 %] 100 % (10/11/21 2:55 PM) Pulse Rate [55-90 bpm] 66 bpm (10/11/21 2:55 PM) Body Mass Index [18.5-24.99] 32.3 *>HHI* (10/11/21 2:55 PM) Blood Pressure [90-138/55-84 mm Hg] 147/81mm Hg *H* (10/11/21 3:36 PM) 147/88mm Hg *H* (10/11/21 3:36 PM) 126/70mm Hg (10/11/21 3:20 PM) Blood pressure sites Arm, right (10/11/21 3:20 PM) Arm, right (10/11/21 2:55 PM) Weight Obtained Via Standing scale (10/11/21 2:55 PM) Social History Social History Type Response Smoking Status Current some day smo ker entered on: 02/15/18 Sex
--- OUTSIDE RECORDS SUMMARY | 2023-12-30 12:54 | XMS_ITS | Continuity of Care Document ---
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 Refills 1, Maintenance, 07/20/21 12:58:00 EDT, Route to Pharmacy Electronically, [facility], D/C RX ON FILE FOR 5MG TAB, 180, cm, 07/20/21 10:31:00 EDT, Height Start Date: 07/20/21 Status: Ordered aspirin 81 mg oral delayed release tablet = 81 mg, By Mouth, Daily, # 90 tablet, 3 Refills, Maintenance, 02/18/21 9:19:00 EDT, EC Tablet, [facility], Partial fill upon patient request if the prescription is for a schedule II opioid drug., 180, cm, 01/26/21 13:02:00 EDT, Height Start Date: 02/18/21 Status: Ordered atorvastatin 80 mg oral tablet 1 tablet = 80 mg, By Mouth, Daily, # 90 tablet, 3 Refills, Maintenance, 03/25/21 16:47:00 EST, Tablet, [facility] #[id number], Partial fill upon patient request if the [...] 03/25/21 16:47:00 EST, Route to Pharmacy Electronically, [facility] #[id number], 180, cm, 02/19/21 13:36:00 EDT, Height Start Date: 03/25/21 Status: Ordered Flonase 50 mcg/inh nasal spray 1 sprays = 50 mcg, Nares, Both, 2 times a day, # 16 Gm, 5 Refills, Maintenance, 09/29/20 16:49:00 EDT, Nasal [place], [facility] #[id number], Partial fill upon patient request if the [...] in AM, # 28 tablet, 2 Refills, [facility], 180, cm, 02/19/21 13:36:00 EDT, Height [...] 11 Refills, Maintenance, 02/20/21 7:32:00 EDT, Patch, [facility], Partial fill upon patient request if the prescription is for a schedule II opioid drug., 1 patch T... Start Date: 02/20/21 Status: Ordered Metoprolol Tartrate 25 mg oral tablet 1 tablet, By Mouth, 2 times a day, # 180 tablet, 3 Refills, Maintenance, 03/25/21 16:47:00 EST, [facility] #[id number], 180, cm, 02/19/21 13:36:00 EDT, Height Start [...] some day [facility] entered on: 02/15/18 Sex
--- OUTSIDE RECORDS SUMMARY | 2023-12-30 12:54 | XMS_ITS | Continuity of Care Document ---
Author Organization [facility] Rico Syed Aldair lt Address [address] [place] [address]- Care Team Providers Care Transcription Name Role Phone Maria Esther URIAS, Balaji Quick Primary Care Physician [facility] - 07/20/22 [facility] Rico Syed Adult [address] [place] [address]- Allergies, Adverse Reactions, Alerts Substance Reaction Severity [...] pneumococcal 23-valent vaccine 12/17/12 Recorded 1Result Comment: [id number] 2Result Comment: [02/15/2018] 89812-070-14 3Result Comment: [08/02/2017] [facility] 02296-696-97 Medications aspirin 81 mg oral delayed release tablet = 81 mg, By Mouth, Daily, # 90 tablet, 3 Refills, Maintenance, 10/05/21 17:34:00 EDT, EC Tablet, [facility] #[id number], Partial fill upon patient request if the prescription is for a schedule II opioid drug., 182, cm, 09/10/21 8:13:00 EDT, Heigh... Start Date: 10/05/21 Status: Ordered atorvastatin 80 mg oral tablet 1 tablet = 80 mg, By Mouth, Daily, # 90 tablet, 3 Refills, Maintenance, 10/05/21 17:34:00 EDT, Tablet, [facility] #[id number], Partial fill upon patient request if the prescription is for a schedule II opioid drug., 182, cm, 09/10/21 8:13:00 EDT,... Start Date: 10/05/21 Status: Ordered BuPROPion (Eqv-Wellbutrin SR) 150 mg/12 hours oral tablet, extended release 1 tablet = 150 mg, By Mouth, 2 times a day, # 180 tablet, 3 Refills, Maintenance, 10/05/21 17:37:00EDT, SR Tablet, [facility] #[id number], Partial fill upon patient request if the prescription is for a schedule II opioid drug., 182, cm, 09/10/21... Start Date: 10/05/21 Status: Ordered clopidogrel 75 mg oral tablet 1, tablet, By Mouth, Daily, # 90 tablet, Refills 3, Tot. Refills 3, Maintenance, 10/05/21 17:34:00 EDT, Route to Pharmacy Electronically, [facility] #[id number], 182, cm, 09/10/21 8:13:00 EDT, Height, 102.7, kg, 09/08/21 16:41:00 EDT, Dry Weight Start Date: 10/05/21 Status: Ordered Flonase 50 mcg/inh nasal spray 1 sprays = 50 mcg, Nares, Both, 2 times a day, # 16 Gm, 5 Refills, Maintenance, 09/29/20 16:49:00 EDT, Nasal [place], [facility] #[id number], Partial fill upon patient request if the [...] 3 Refills, Maintenance, 10/05/21 17:34:00 EDT, Capsule, [facility] #[id number], Partial fill upon patient request if the prescription is for a schedule II opioid drug., 182, cm, 09/10/21 8:13:00 E... Start Date: 10/05/21 Status: Ordered isosorbide mononitrate 30 mg oral tablet, extended release 1 tablet = 30 mg, By Mouth, Daily in AM, # 90 tablet, 3 Refills, 10/05/21 17:35:00 EDT, [facility] #[id number], 182, cm, 09/10/21 8:13:00 EDT, Height, 102.7, kg, 09/08/21 16:41:00 EDT, Dry Weight Start Date: 10/05/21 Status: Ordered lamotrigine 25 mg oral tablet 100 mg, 4, tablet, By Mouth, 2 times a day, # 720 tablet, Refills 3, Tot. Refills 3, Maintenance, 10/06/21 14:57:00 EDT, Route to Pharmacy Electronically, [facility] #[id number], Partial fill upon patient request if the prescription is for a sche... Start Date: 10/06/21 Stop Date: 10/01/22 Status: Ordered lidocaine 5% topical film 1 patch, Topically, Daily, PRN Pain , Mild, remove after 12 hours, # 30 patch, 11 Refills, Maintenance, 02/20/21 7:32:00 EDT, Patch, [facility], Partial fill upon patient request if the prescription is for a schedule II opioid drug., 1 patch T... Start Date: 02/20/21 Status: Ordered metoprolol 25 mg oral tablet 25 mg, 1, tablet, By Mouth, 2 times a day, increase in dose, # 60 tablet, Refills 2, Tot. Refills 2, Maintenance, 06/06/22 14:13:00 EST, Route to Pharmacy Electronically, [facility] #[id number],Partial fill upon patient request if the prescripti... Start Date: 06/06/22 Status: Ordered mupirocin 2% topical ointment 1 application, Topically, 3 times a day, for 5 days, apply a thin film to affected area, # 15 Gm, 0Refills, Acute 07/24/22 12:01:00 EDT, 07/19/22 12:01:00 EDT, Ointment, [facility] #[id number],Partial fill upon patient request if the prescripti... [...] 10/05/21 17:36:00 EDT, Route to Pharmacy Electronically, [facility] #[id number], Partial fillupon patient request if the prescription [...] Team Personnel Name: Wild Woods RN Position: [facility] ED RN W/OE and Tasks Member Role: Primary Care Nurse Name: Camila Vazquez RN Position: [facility] RN Member Role: Primary Care Nurse Name: Amanda Garibay RN Position: [facility] RN Member Role: Primary Care Nurse Name: Mary Roberson RN Position: [facility] RN Member Role: Primary Care Nurse Name: Tomas Stauffer RN Position: [facility] RN Member Role: Primary Care Nurse Name: Balaji Mayo MD Position: [facility] Primary Care Physician Member Role: PCP Address: Address: [address] [place] [id number]- [place] Care Team Related Persons Name: ROSANA NAGY Address: home [address] [place] [id number] Name: GORAN QUINTERO
--- OUTSIDE RECORDS SUMMARY | 2023-12-30 12:54 | XMS_ITS | Continuity of Care Document ---
Author Organization [facility] Rioc Syed Aldair lt Address [address] [place] [address]- Care Team Providers Care Environmental Health Technologist Name Role Phone Balaji Mayo MD Primary Care Physician [facility] - 05/04/22 [facility] Rico Syed Adult [address] [place] [address]- Attending Physician: Balaji Mayo MD Allergies, Adverse [...] pneumococcal 23-valent vaccine 12/17/12 Recorded 1Result Comment: [id number] 2Result Comment: [02/15/2018] 16370-264-89 3Result Comment: [08/02/2017] [facility] [id number] Medications aspirin 81 mg oral delayed release tablet = 81 mg, By Mouth, Daily, # 90 tablet, 3 Refills, Maintenance, 10/05/21 17:34:00 EDT, EC Tablet, [facility] #[id number], Partial fill upon patient request if the prescription is for a schedule II opioid drug., 182, cm, 09/10/21 8:13:00 EDT, Heigh... Start Date: 10/05/21 Status: Ordered atorvastatin 80 mg oral tablet 1 tablet = 80 mg, By Mouth, Daily, # 90 tablet, 3 Refills, Maintenance, 10/05/21 17:34:00 EDT, Tablet, [facility] #[id number], Partial fill upon patient request if the prescription is for a schedule II opioid drug., 182, cm, 09/10/21 8:13:00 EDT,... Start Date: 10/05/21 Status: Ordered BuPROPion (Eqv-Wellbutrin SR) 150 mg/12 hours oral tablet, extended release 1 tablet = 150 mg, By Mouth, 2 times a day, # 180 tablet, 3 Refills, Maintenance, 10/05/21 17:37:00EDT, SR Tablet, [facility] #[id number], Partial fill upon patient request if the prescription is for a schedule II opioid drug., 182, cm, 09/10/21... Start Date: 10/05/21 Status: Ordered clopidogrel 75 mg oral tablet 1, tablet, By Mouth, Daily, # 90 tablet, Refills 3, Tot. Refills 3, Maintenance, 10/05/21 17:34:00 EDT, Route to Pharmacy Electronically, [facility] #[id number], 182, cm, 09/10/21 8:13:00 EDT, Height, 102.7, kg, 09/08/21 16:41:00 EDT, Dry Weight Start Date: 10/05/21 Status: Ordered Flonase 50 mcg/inh nasal spray 1 sprays = 50 mcg, Nares, Both, 2 times a day, # 16 Gm, 5 Refills, Maintenance, 09/29/20 16:49:00 EDT, Nasal [place], [facility] #[id number], Partial fill upon patient request if the prescription is for a schedule II opioid drug., 1 sprays Nares, B... Start Date: 09/29/20 Status: Ordered FLUoxetine 40 mg oral capsule 1 capsule = 40 mg, By Mouth, Daily, # 90 capsule, 3 Refills, Maintenance, 10/05/21 17:34:00 EDT, Capsule, [facility] #[id number], Partial fill upon patient request if the prescription is for a schedule II opioid drug., 182, cm, 09/10/21 8:13:00 E... Start Date: 10/05/21 Status: Ordered isosorbide mononitrate 30 mg oral tablet, extended release 1 tablet = 30 mg, By Mouth, Daily in AM, # 90 tablet, 3 Refills, 10/05/21 17:35:00 EDT, [facility] #[id number], 182, cm, 09/10/21 8:13:00 EDT, Height, 102.7, kg, 09/08/21 16:41:00 EDT, Dry Weight Start Date: 10/05/21 Status: Ordered lamotrigine 25 mg oral tablet 100 mg, 4, tablet, By Mouth, 2 times a day, # 720 tablet, Refills 3, Tot. Refills 3, Maintenance, 10/06/21 14:57:00 EDT, Route to Pharmacy Electronically, [facility] #[id number], Partial fill upon patient request if the prescription is for a sche... Start Date: 10/06/21 Stop Date: 10/01/22 Status: Ordered lidocaine 5% topical film 1 patch, Topically, Daily, PRN Pain , Mild, remove after 12 hours, # 30 patch, 11 Refills, Maintenance, 02/20/21 7:32:00 EDT, Patch, [facility], Partial fill upon patient request if the prescription is for a schedule II opioid drug., 1 patch T... Start Date: 02/20/21 Status: Ordered metoprolol 25 mg oral tablet 25 mg, 1, tablet, By Mouth, 2 times a day, increase in dose, # 60 tablet, Refills 5, Tot. Refills 5, Maintenance, 04/28/22 7:37:00 EST, Route to Pharmacy Electronically, [facility], Partial fill upon patient request if the prescription is for... Start Date: 04/28/22 Status: Ordered QUEtiapine 400 mg oral tablet, extended release 400 mg, 1, tablet, By Mouth, Daily in PM, # 90 tablet, Refills 0, Tot. Refills 0, Maintenance, 04/13/22 10:30:00 EST, Route to Pharmacy Electronically, [facility] #[id number], Partial fill upon patient request if the prescription is for a schedul... Start Date: 04/13/22 Status: Ordered ASSISTED VISIT FREQUENCY ASSISTED VISIT FREQUENCY, See Instructions, # 1 each, Refills 0, Tot. Refills 0, Maintenance, PLEASE INCREASE ASSISTED VISITS TO TWICE A DAY FOR MEDICATION MANAGEMENT AND ADMINISTRATION., 10/06/21 15:08:00 EDT, Supply Start Date: 10/06/21 Status: Ordered traZODone 100 mg oral tablet 200 mg, 2, tablet, By Mouth, Daily at bedtime, # 180 tablet, Refills 3, Tot. Refills 3, Maintenance, 10/05/21 17:36:00 EDT, Route to Pharmacy Electronically, [facility] #[id number], Partial fillupon patient request if the prescription [...] by duplex 4repeat screening colonoscopy in 2021 Vital Signs Most recent to oldest [Reference Range]: 1 2 Height 182 cm (04/27/22 10:32 AM) 182 cm (04/27/22 10:22 AM) Weight 111.8 kg (04/27/22 10:22 AM) Oxygen Saturation [94-100 %] 97 % (04/27/22 10:22 AM) Pulse Rate [55-90 bpm] 62 bpm (04/27/22 10:22 AM) Body Mass Index [18.5-24.99 kg/m2] 33.75 kg/m2 *>HHI* (04/27/22 10:22 AM) Blood Pressure [90-138/55-84 mm Hg] 173/ 81mm Hg *H* (04/27/22 10:32 AM) 159/91mm Hg *H* (04/27/22 10:22 AM) Mode of Delivery (Oxygen) Room air (04/27/22 10:22 AM) Blood pressure sites Arm, right (04/27/22 10:32 AM) Arm, right (04/27/22 10:22 AM) Weight Obtained Via Standing scale (04/27/22 10:22 AM) Social History Social History Type Response Smoking Status Current some day smo ker entered on: 02/15/18 Sex Patient Care team information Care Team Personnel Name: Wild Woods RN Position: [facility] ED RN W/OE and Tasks Member Role: Primary Care Nurse Name: Camila Vazquez RN Position: [facility] RN Member Role: Primary Care Nurse Name: Amanda Garibay RN Position: [facility] RN Member Role: Primary Care Nurse Name: Mary Roberson RN Position: [facility] RN Member Role: Primary Care Nurse Name: Tomas Stauffer RN Position: [facility] RN Member Role: Primary Care Nurse Name: Balaji Mayo MD Position: [facility] Primary Care Physician Member Role: PCP Address: Address: [address] [place] [id number]- Name: Pattie Oates RN Position: [facility] RN Member Role: Primary Care Nurse Care Team Related Persons Name: ROSANA NAGY Address: home [address] [place] [phone] Name: GORAN QUINTERO
--- OUTSIDE RECORDS SUMMARY | 2023-12-30 12:54 | XMS_ITS | Continuity of Care Document ---
Author Organization [facility] Rico Syed Aldair lt Address [address] [place] [address]- Care Team Providers Care Hospital Aides And Assistants Teacher Name Role Phone Maria Esther URIAS, Balaji Quick Primary Care Physician [phone] [facility]): 05[facility]23 - 06/14/23 [facility] Rico Syed Adult [address] [place] [address]- Allergies, Adverse Reactions, Alerts Substance Reaction Severity [...] 23-valent vaccine 12/17/12 Recorded 1Result Comment: [02/15/2018] 88788-684-71 2Result Comment: [id number] 3Result Comment: [08/02/2017] [facility] 92365-297-59 Medications Aspirin Low Dose 81 mg oral delayed release tablet 1 tablet, By Mouth, Daily, # 90 tablet, 3 Refills, Maintenance, 11/08/22 11:19:00 EDT, [facility] #[id number], 184, cm, 11/03/22 11:28:00 EDT, Height, 106.3, kg, 09/13/22 12:30:00 EDT, Dry Weight Start Date: 11/08/22 Status: Ordered atorvastatin 80 mg oral tablet 1 tablet = 80 mg, By Mouth, Daily, # 90 tablet, 3 Refills, Maintenance, 12/05/22 4:30:00 EDT, Tablet, [facility] #[id number], Partial fill upon patient request if the prescription is for a schedule II opioid drug., 183, cm, 11/10/22 17:28:00 EDT,... Start Date: 12/05/22 Status: Ordered BuPROPion (Eqv-Wellbutrin SR) 150 mg/12 hours oral tablet, extended release 1 tablet = 150 mg, By Mouth, 2 times a day, # 180 tablet, 3 Refills, Maintenance, 10/05/21 17:37:00EDT, SR Tablet, [facility] #[id number], Partial fill upon patient request if the prescription is for a schedule II opioid drug., 182, cm, 09/10/21... Start Date: 10/05/21 Status: Ordered clopidogrel 75 mg oral tablet 1, tablet, By Mouth, Daily, # 90 tablet, Refills 3, Maintenance, 01/13/23 16:50:00 EDT, Route to Pharmacy Electronically, [facility] #[id number], 183, cm, 12/05/22 16:08:00 EDT, Height, 106.3, kg, 09/13/22 12:30:00 EDT, Dry Weight Start Date: 01/13/23 Status: Ordered Flonase 50 mcg/inh nasal spray 1 sprays = 50 mcg, Nares, Both, 2 times a day, # 16 Gm, 5 Refills, Maintenance, 09/15/22 8:26:00 EDT, Nasal [place], [facility] #[id number], Partial fill upon patient request if the prescription is for a schedule II opioid drug., 1 sprays Nares, [place]... Start Date: 09/15/22 Status: Ordered FLUoxetine 40 mg oral capsule 1 capsule = 40 mg, By Mouth, Daily, # 90 capsule, 3 Refills, Maintenance, 10/05/21 17:34:00 EDT, Capsule, [facility] #[id number], Partial fill upon patient request if the [...] 11 Refills, Maintenance, 11/30/22 6:36:00 EDT, Tablet, [facility] #[id number], Partial fill upon patient requestif the prescription [...] capsule, 1 Refills, Maintenance, 09/28/22 9:21:00 EDT, [facility] #[id number], Partial fill upon patient request if the [...] 10/05/21 17:36:00 EDT, Route to Pharmacy Electronically, [facility] #[id number], Partial fillupon patient request if the prescription [...] Team Personnel Name: Wild Woods RN Position: [facility] ED RN W/OE and Tasks Member Role: Primary Care Nurse Name: Esme Garcia RN Position: [facility] RN Member Role: Primary Care Nurse Name: Erich Dias RN Position: [facility] RN Member Role: Primary Care Nurse Name: Camila Vazquez RN Position: [facility] RN Member Role: Primary Care Nurse Name: Taylor Beck RN Position: [facility] RN Member Role: Primary Care Nurse Name: Amanda Garibay RN Position: [facility] RN Member Role: Primary Care Nurse Name: Mary Roberson RN Position: [facility] RN Member Role: Primary Care Nurse Name: Tomas Stauffer RN Position: [facility] RN Member Role: Primary Care Nurse Name: Balaji Mayo MD Position: [facility] Physician - Primary Care Member Role: PCP Address: Address: [address] [place] [address] [place] [address]- Care Team Related Persons Name: YAKOV ROSANA Address: home [address] [place] [id number] Name: GORAN QUINTERO
--- OUTSIDE RECORDS SUMMARY | 2023-12-30 12:54 | XMS_ITS | Continuity of Care Document ---
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 Name Role Phone Balaji Mayo MD Primary Care Physician [phone] [facility] 01[facility] - 02/25/22 [facility] [place] Adult [address] [place] [address]- Attending Physician: Susan Ruiz Referring Physician: Balaji Mayo MD Allergies, Adverse [...] pneumococcal 23-valent vaccine 12/17/12 Recorded 1Result Comment: [id number] 2Result Comment: [02/15/2018] [id number] 3Result Comment: [08/02/2017] [facility] 93896-861-26 Medications aspirin 81 mg oral delayed release tablet = 81 mg, By Mouth, Daily, # 90 tablet, 3 Refills, Maintenance, 10/05/21 17:34:00 EDT, EC Tablet, [facility] #[id number], Partial fill upon patient request if the prescription is for a schedule II opioid drug., 182, cm, 09/10/21 8:13:00 EDT, Heigh... Start Date: 10/05/21 Status: Ordered atorvastatin 80 mg oral tablet 1 tablet = 80 mg, By Mouth, Daily, # 90 tablet, 3 Refills, Maintenance, 10/05/21 17:34:00 EDT, Tablet, [facility] #[id number], Partial fill upon patient request if the prescription is for a schedule II opioid drug., 182, cm, 09/10/21 8:13:00 EDT,... Start Date: 10/05/21 Status: Ordered BuPROPion (Eqv-Wellbutrin SR) 150 mg/12 hours oral tablet, extended release 1 tablet = 150 mg, By Mouth, 2 times a day, # 180 tablet, 3 Refills, Maintenance, 10/05/21 17:37:00EDT, SR Tablet, [facility] #[id number], Partial fill upon patient request if the prescription is for a schedule II opioid drug., 182, william, 09/10/21... Start Date: 10/05/21 Status: Ordered clopidogrel 75 mg oral tablet 1, tablet, By Mouth, Daily, # 90 tablet, Refills 3, Tot. Refills 3, Maintenance, 10/05/21 17:34:00 EDT, Route to Pharmacy Electronically, [facility] #[id number], 182, cm, 09/10/21 8:13:00 EDT, Height, 102.7, [...] 5 Refills, Maintenance, 09/29/20 16:49:00 EDT, Nasal [place], [facility] #[id number], Partial fill upon patient request if the prescription is for a schedule II opioid drug., 1 sprays Nares, B... Start Date: 09/29/20 Status: Ordered FLUoxetine 40 mg oral capsule 1 capsule = 40 mg, By Mouth, Daily, # 90 capsule, 3 Refills, Maintenance, 10/05/21 17:34:00 EDT, Capsule, [facility] #[id number], Partial fill upon patient request if the [...] 90 tablet, 3 Refills, 10/05/21 17:35:00 EDT, [facility] #[id number], 182, cm, 09/10/21 8:13:00 EDT, Height, 102.7, [...] 10/06/21 14:57:00 EDT, Route to Pharmacy Electronically, [facility] #[id number], Partial fill upon patient request if the prescription is for a sche... Start Date: 10/06/21 Stop Date: 10/01/22 Status: Ordered lidocaine 5% topical film 1 patch, Topically, Daily, PRN Pain , Mild, remove after 12 hours, # 30 patch, 11 Refills, Maintenance, 02/20/21 7:32:00 EDT, Patch, [facility], Partial fill upon patient request if the prescription is for a schedule II opioid drug., 1 patch T... Start Date: 02/20/21 Status: Ordered metoprolol 25 mg oral tablet 12.5 mg, 0.5, tablet, By Mouth, 2 times a day, # 90 tablet, Refills 3, Tot. Refills 3, Maintenance,10/05/21 17:40:00 EDT, Route to Pharmacy Electronically, [facility] #[id number], Partial fill upon patient request if the prescription is for a sc... Start Date: 10/05/21 Status: Ordered QUEtiapine 400 mg oral tablet, extended release 400 mg, 1, tablet, By Mouth, Daily in PM, # 90 tablet, Refills 1, Tot. Refills 1, Maintenance, 10/05/21 17:36:00 EDT, Route to Pharmacy Electronically, [facility] #[id number], Partial fill upon patient request if the prescription is for a schedul... Start Date: 10/05/21 Status: Ordered FPC VISIT FREQUENCY FPC VISIT FREQUENCY, See Instructions, # 1 each, Refills 0, Tot. Refills 0, Maintenance, PLEASE INCREASE FPC VISITS TO TWICE A DAY FOR MEDICATION MANAGEMENT AND ADMINISTRATION., 10/06/21 15:08:00 EDT, Supply Start Date: 10/06/21 Status: Ordered traZODone 100 mg oral tablet 200 mg, 2, tablet, By Mouth, Daily at bedtime, # 180 tablet, Refills 3, Tot. Refills 3, Maintenance, 10/05/21 17:36:00 EDT, Route to Pharmacy Electronically, [facility] #[id number], Partial fillupon patient request if the prescription [...] on: 02/15/18 Sex Patient Care team information Personnel Name: Maria Esther URIAS, Balaji Quick Address: Address: [address] [place] [id number]
--- OUTSIDE RECORDS SUMMARY | 2023-12-30 12:54 | XMS_ITS | Continuity of Care Document ---
Author Organization [facility] Rico Syed Aldair lt Address [address] [place] [address]- Care Team Providers Care Repairer Maintenance Building Name Role Phone Maria Esther URIAS, Balaji Quick Primary Care Physician Encounter [facility] Date(s): 12/05/22 - 01/04/23 [facility] Rico Syed Adult [address] [place] [address]- Attending Physician: Admtr, Ar8 Admitting Physician: Admtr, [...] pneumococcal 23-valent vaccine 12/17/12 Recorded 1Result Comment: [id number] 2Result Comment: [02/15/2018] 33726-635-42 3Result Comment: [08/02/2017] [facility] 01478-016-27 Medications amLODIPine 10 mg oral tablet 10 mg, 1, tablet, By Mouth, Daily, # 90 tablet, Refills 3, Tot. Refills 3, Maintenance, 10/26/22 13:35:00 EDT, Route to Pharmacy Electronically, [facility] #[id number], Partial fill upon patientrequest if the prescription is for a schedule II op... Start Date: 10/26/22 Status: Ordered Aspirin Low Dose 81 mg oral delayed release tablet 1 tablet, By Mouth, Daily, # 90 tablet, 3 Refills, Maintenance, 11/08/22 11:19:00 EDT, [facility] #[id number], 184, cm, 11/03/22 11:28:00 EDT, Height, 106.3, kg, 09/13/22 12:30:00 EDT, Dry Weight Start Date: 11/08/22 Status: Ordered atorvastatin 80 mg oral tablet 1 tablet = 80 mg, By Mouth, Daily, # 90 tablet, 3 Refills, Maintenance, 12/05/22 4:30:00 EDT, Tablet, [facility] #[id number], Partial fill upon patient request if the prescription is for a schedule II opioid drug., 183, cm, 11/10/22 17:28:00 EDT,... Start Date: 12/05/22 Status: Ordered BuPROPion (Eqv-Wellbutrin SR) 150 mg/12 hours oral tablet, extended release 1 tablet = 150 mg, By Mouth, 2 times a day, # 180 tablet, 3 Refills, Maintenance, 10/05/21 17:37:00EDT, SR Tablet, [facility] #[id number], Partial fill upon patient request if the prescription is for a schedule II opioid drug., 182, cm, 09/10/21... Start Date: 10/05/21 Status: Ordered clopidogrel 75 mg oral tablet 1, tablet, By Mouth, Daily, # 90 tablet, Refills 0, Maintenance, 10/07/22 6:36:00 EDT, Route to Pharmacy Electronically, [facility] #[id number], 184, cm, 09/28/22 9:02:00 EDT, Height, 106.3, kg,09/13/22 12:30:00 EDT, Dry Weight Start Date: 10/07/22 Status: Ordered Flonase 50 mcg/inh nasal spray 1 sprays = 50 mcg, Nares, Both, 2 times a day, # 16 Gm, 5 Refills, Maintenance, 09/15/22 8:26:00 EDT, Nasal [place], [facility] #[id number], Partial fill upon patient request if the [...] 3 Refills, Maintenance, 10/05/21 17:34:00 EDT, Capsule, [facility] #[id number], Partial fill upon patient request if the prescription is for a schedule II opioid drug., 182, cm, 09/10/21 8:13:00 E... Start Date: 10/05/21 Status: Ordered isosorbide mononitrate 30 mg oral tablet, extended release 1 tablet, By Mouth, Daily in AM, # 90 tablet, 3 Refills, Maintenance, 10/20/22 16:40:00 EDT, [facility] #[id number], 184, cm, 09/28/22 9:02:00 EDT, Height, 106.3, [...] tablet, 5 Refills, Maintenance, 09/18/22 18:55:00 EDT, [facility] #[id number], 184, cm, 09/15/22 9:12:00 EDT, Height, 106.3, kg, 09/13/22 12:30:00 EDT, Dry Weight Start Date: 09/18/22 Status: Ordered Nitrostat 0.4 mg sublingual tablet 1 tablet = 0.4 mg, Sublingual, Every 5 minutes, PRN Chest Pain, prn, # 30 tablet, 11 Refills, Maintenance, 11/30/22 6:36:00 EDT, Tablet, [facility] #[id number], Partial fill upon patient requestif the prescription is for a schedule II opioid lisa... Start Date: 11/30/22 Status: Ordered omeprazole 20 mg oral enteric coated capsule 1 capsule = 20 mg, By Mouth, Daily, # 30 capsule, 1 Refills, Maintenance, 09/28/22 9:21:00 EDT, [facility] #[id number], Partial fill upon patient request if the [...] 10/05/21 17:36:00 EDT, Route to Pharmacy Electronically, [facility] #[id number], Partial fillupon patient request if the prescription [...] day smo ker entered on: 02/15/18 Sex Cardiology * Event Display: Cardiology Office Note, Non- Authored Date: * Event Display: Cardiology Office Note, Non- Authored Date: * Event Display: Cardiovascular Result Scanned Authored Date: Cardiology Consult note * Event Display: Consult Note Cardiology Authored Date: Radiology * Event Display: Ultrasound Renal, Non Authored Date: Patient Care team information Care Team Personnel Name: Wild Woods RN Position: [facility] ED RN W/OE and Tasks Member Role: Primary Care Nurse Name: Erich Dias RN Position: [facility] RN Member [...] Tomas Stauffer RN Position: [facility] ED RN W/OE and Tasks Member Role: Primary Care Nurse Name: Balaji Mayo MD Position: [facility] Physician - Primary Care Member Role: PCP Address: Address: [address] [place] [address]- Name: Sushila DECKER, Fadumo Position: S RN Member Role: Primary Care Nurse Care Team Related Persons Name: ROSANA NAGY Address: [address] [address] Name: GORAN QUINTERO
--- OUTSIDE RECORDS SUMMARY | 2023-12-30 12:54 | XMS_ITS | Continuity of Care Document ---
Author Organization [facility] Kunal Aldair lt Address [address] [place] [address]- Care Team Providers Care Client Executive Name Role Phone Balaji Mayo MD Primary Care Physician [phone] Encounter [facility] Date(s): 07/20/21 - 07/27/21 [facility] Steele Adult [address] [place] [address]- Attending Physician: Balaji Mayo MD Allergies, Adverse [...] 23-valent vaccine 12/17/12 Recorded 1Result Comment: [02/15/2018] [id number] 2Result Comment: [08/02/2017] [facility] 70369-412-08 Medications amLODIPine 2.5 mg oral tablet 2.5 mg, 1, tablet, By Mouth, Daily, # 90 tablet, Refills 1, Tot. Refills 1, Maintenance, 07/20/21 12:58:00 EDT, Route to Pharmacy Electronically, [facility], D/C RX ON FILE FOR 5MG TAB, 180, cm, 07/20/21 10:31:00 EDT, Height Start Date: 07/20/21 Status: Ordered aspirin 81 mg oral delayed release tablet = 81 mg, By Mouth, Daily, # 90 tablet, 3 Refills, Maintenance, 02/18/21 9:19:00 EDT, EC Tablet, [facility], Partial fill upon patient request if the prescription is for a schedule II opioid drug., 180, cm, 01/26/21 13:02:00 EDT, Height Start Date: 02/18/21 Status: Ordered atorvastatin 80 mg oral tablet 1 tablet = 80 mg, By Mouth, Daily, # 90 tablet, 3 Refills, Maintenance, 03/25/21 16:47:00 EST, Tablet, [facility] #[id number], Partial fill upon patient request if the [...] 03/25/21 16:47:00 EST, Route to Pharmacy Electronically, [facility] #[id number], 180, cm, 02/19/21 13:36:00 EDT, Height Start Date: 03/25/21 Status: Ordered Flonase 50 mcg/inh nasal spray 1 sprays = 50 mcg, Nares, Both, 2 times a day, # 16 Gm, 5 Refills, Maintenance, 09/29/20 16:49:00 EDT, Nasal [place], [facility] #[id number], Partial fill upon patient request if the [...] in AM, # 28 tablet, 2 Refills, [facility], 180, cm, 02/19/21 13:36:00 EDT, Height [...] 11 Refills, Maintenance, 02/20/21 7:32:00 EDT, Patch, [facility], Partial fill upon patient request if the prescription is for a schedule II opioid drug., 1 patch T... Start Date: 02/20/21 Status: Ordered Metoprolol Tartrate 25 mg oral tablet 1 tablet, By Mouth, 2 times a day, # 180 tablet, 3 Refills, Maintenance, 03/25/21 16:47:00 EST, [facility] #[id number], 180, cm, 02/19/21 13:36:00 EDT, Height Start [...] oldest [Reference Range]: 1 Height 180 cm (07/20/21 10:31 AM) Weight 107.8 kg (07/20/21 10:31 AM) Oxygen Saturation [94-100 %] 98 % (07/20/21 10:31 AM) Pulse Rate [55-90 bpm] 55 bpm (07/20/21 10:31 AM) Body Mass Index [18.5-24.99] 33.27 *>HHI* (07/20/21 10:31 AM) Blood Pressure [90-138/55-84 mm Hg] 107/ 68mm Hg (07/20/21 10:31 AM) Temperature [96.8-100.4 DegF] 97.9 DegF (07/20/21 10:31 AM) Blood pressure sites Arm, right (07/20/21 10:31 AM) Temperature Route Temporal (07/20/21 10:31 AM) Weight Obtained Via Standing scale (07/20/21 10:31 AM) Social History Social History Type Response Smoking Status Current some day [facility] ker entered on: 02/15/18 Sex
--- OUTSIDE RECORDS SUMMARY | 2023-12-30 12:54 | XMS_ITS | Continuity of Care Document ---
Author Organization [facility] Rico Syed Aldair lt Address [address] [place] [address]- Care Team Providers Care Insulator Technician Name Role Phone Maria Esther URIAS, Balaji Quick Primary Care Physician [phone] Encounter [facility] Date(s): 08/03/23 - 09/02/23 [facility] Rico Syed Adult [address] [place] [address]- Allergies, Adverse Reactions, Alerts Substance Reaction Severity [...] 23-valent vaccine 12/17/12 Recorded 1Result Comment: [02/15/2018] 28614-302-29 2Result Comment: [id number] 3Result Comment: [08/02/2017] [facility] 53100-721-89 Medications Aspirin Low Dose 81 mg oral delayed release tablet 1 tablet, By Mouth, Daily, # 90 tablet, 3 Refills, Maintenance, 11/08/22 11:19:00 EDT, [facility] #[id number], 184, cm, 11/03/22 11:28:00 EDT, Height, 106.3, kg, 09/13/22 12:30:00 EDT, Dry Weight Start Date: 11/08/22 Status: Ordered atorvastatin 80 mg oral tablet 1 tablet = 80 mg, By Mouth, Daily, # 90 tablet, 3 Refills, Maintenance, 08/18/23 16:03:00 EDT, Tablet, [facility] #[id number], Partial fill upon patient request if the prescription is for a schedule II opioid drug., 183, cm, 08/09/23 10:49:00 EDT... Start Date: 08/18/23 Status: Ordered BuPROPion (Eqv-Wellbutrin SR) 150 mg/12 hours oral tablet, extended release 1 tablet = 150 mg, By Mouth, 2 times a day, # 180 tablet, 3 Refills, Maintenance, 10/05/21 17:37:00EDT, SR Tablet, [facility] #[id number], Partial fill upon patient request if the prescription is for a schedule II opioid drug., 182, cm, 09/10/21... Start Date: 10/05/21 Status: Ordered clopidogrel 75 mg oral tablet 1, tablet, By Mouth, Daily, # 90 tablet, Refills 3, Tot. Refills 3, Maintenance, 08/18/23 16:03:00 EDT, Route to Pharmacy Electronically, [facility] #[id number], 183, cm, 08/09/23 10:49:00 EDT, Height, 107, kg, 01/26/23 19:57:00 EDT, Dry Weight Start Date: 08/18/23 Status: Ordered FLUoxetine 40 mg oral capsule 1 capsule = 40 mg, By Mouth, Daily, # 90 capsule, 3 Refills, Maintenance, 10/05/21 17:34:00 EDT, Capsule, [facility] #[id number], Partial fill upon patient request if the prescription is for a schedule II opioid drug., 182, cm, 09/10/21 8:13:00 E... Start Date: 10/05/21 Status: Ordered fluticasone 50 mcg/inh nasal spray 1 sprays = 50 mcg, Nares, Both, 2 times a day, PRN allergies, # 16 Gm, 11 Refills, Maintenance, 08/18/23 16:05:00 EDT, [place], [facility] #[id number], Partial fill upon patient request if the [...] 11 Refills, Maintenance, 08/18/23 16:04:00 EDT, Tablet, [facility] #[id number], Partial fill upon patient request if the prescription is for a schedule II opioid dr... Start Date: 08/18/23 Status: Ordered Norvasc 2.5 mg oral tablet 2.5 mg, 1, tablet, By Mouth, Daily, # 90 tablet, Refills 3, Tot. Refills 3, Maintenance, 08/18/23 16:02:00 EDT, Route to Pharmacy Electronically, [facility] #[id number], Partial fill upon patient request if the prescription is for a schedule II o... Start Date: 08/18/23 Status: Ordered omeprazole 20 mg oral enteric coated capsule 1 capsule = 20 mg, By Mouth, Daily, # 90 capsule, 3 Refills, Maintenance, 08/18/23 16:04:00 EDT, [facility] #[id number], Partial fill upon patient request if the [...] 08/18/23 16:01:00 EDT, Route to Pharmacy Electronically, [facility] #[id number] Tablet, Partial fill upon ani... Start Date: 08/18/23 Stop Date: 08/17/24 Status: Ordered traZODone 100 mg oral tablet 200 mg, 2, tablet, By Mouth, Daily at bedtime, # 180 tablet, Refills 3, Tot. Refills 3, Maintenance, 10/05/21 17:36:00 EDT, Route to Pharmacy Electronically, [facility] #[id number], Partial fillupon patient request if the prescription [...] Wild [place] RN Position: [facility] ED RN W/OE and Tasks Member Role: Primary Care Nurse Name: Esme Garcia RN Position: [facility] RN Member Role: Primary Care Nurse Name: Erich Dias RN Position: [facility] RN Member Role: Primary Care Nurse Name: Camila Vazquez RN Position: [facility] RN Member Role: Primary Care Nurse Name: Taylor Beck RN Position: [facility] RN Member Role: Primary Care Nurse Name: Amanda Moraes RN Position: [facility] RN Member Role: Primary Care Nurse Name: Mary Roberson RN Position: [facility] RN Member Role: Primary Care Nurse Name: Tomas Stauffer RN Position: [facility] RN Member Role: Primary Care Nurse Name: Balaji Mayo MD Position: [facility] Physician - Primary Care Member Role: PCP Address: Address: [address] [place] [address]- [place] Care Team Related Persons Name: ROSANA NAGY Address: home [address] [place] [phone] Name: GORAN QUINTERO
--- OUTSIDE RECORDS SUMMARY | 2023-12-30 12:54 | XMS_ITS | Continuity of Care Document ---
Author Organization [facility] ter Address [address] [place] [address]- Care Team Providers Care Hospice Spiritual Care Coordinator Name Role Phone Maria Esther URIAS, Balaji Quick Primary Care Physician [phone] Encounter [facility] Date(s): 02/11/22 - 02/11/[address] [address]- Discharge Disposition: A-D/C Home Attending Physician: Marlen Leonard MD Admitting Physician: Marlen Leonard MD Referring Physician: Not on Staff, Referring [...] pneumococcal 23-valent vaccine 12/17/12 Recorded 1Result Comment: [id number] 2Result Comment: [02/15/2018] [id number] 3Result Comment: [08/02/2017] [facility] 27528-630-58 Medications aspirin 81 mg oral delayed release tablet = 81 mg, By Mouth, Daily, # 90 tablet, 3 Refills, Maintenance, 10/05/21 17:34:00 EDT, EC Tablet, [facility] #[id number], Partial fill upon patient request if the prescription is for a schedule II opioid drug., 182, cm, 09/10/21 8:13:00 EDT, Heigh... Start Date: 10/05/21 Status: Ordered atorvastatin 80 mg oral tablet 1 tablet = 80 mg, By Mouth, Daily, # 90 tablet, 3 Refills, Maintenance, 10/05/21 17:34:00 EDT, Tablet, [facility] #[id number], Partial fill upon patient request if the prescription is for a schedule II opioid drug., 182, cm, 09/10/21 8:13:00 EDT,... Start Date: 10/05/21 Status: Ordered BuPROPion (Eqv-Wellbutrin SR) 150 mg/12 hours oral tablet, extended release 1 tablet = 150 mg, By Mouth, 2 times a day, # 180 tablet, 3 Refills, Maintenance, 10/05/21 17:37:00EDT, SR Tablet, [facility] #[id number], Partial fill upon patient request if the prescription is for a schedule II opioid drug., 182, cm, 09/10/21... Start Date: 10/05/21 Status: Ordered clopidogrel 75 mg oral tablet 1, tablet, By Mouth, Daily, # 90 tablet, Refills 3, Tot. Refills 3, Maintenance, 10/05/21 17:34:00 EDT, Route to Pharmacy Electronically, [facility] #[id number], 182, cm, 09/10/21 8:13:00 EDT, Height, 102.7, [...] 5 Refills, Maintenance, 09/29/20 16:49:00 EDT, Nasal [place], [facility] #[id number], Partial fill upon patient request if the prescription is for a schedule II opioid drug., 1 sprays Nares, B... Start Date: 09/29/20 Status: Ordered FLUoxetine 40 mg oral capsule 1 capsule = 40 mg, By Mouth, Daily, # 90 capsule, 3 Refills, Maintenance, 10/05/21 17:34:00 EDT, Capsule, [facility] #[id number], Partial fill upon patient request if the [...] 90 tablet, 3 Refills, 10/05/21 17:35:00 EDT, [facility] #[id number], 182, cm, 09/10/21 8:13:00 EDT, Height, 102.7, [...] 10/06/21 14:57:00 EDT, Route to Pharmacy Electronically, [facility] #[id number], Partial fill upon patient request if the prescription is for a sche... Start Date: 10/06/21 Stop Date: 10/01/22 Status: Ordered lidocaine 5% topical film 1 patch, Topically, Daily, PRN Pain , Mild, remove after 12 hours, # 30 patch, 11 Refills, Maintenance, 02/20/21 7:32:00 EDT, Patch, [facility], Partial fill upon patient request if the prescription is for a schedule II opioid drug., 1 patch T... Start Date: 02/20/21 Status: Ordered metoprolol 25 mg oral tablet 12.5 mg, 0.5, tablet, By Mouth, 2 times a day, # 90 tablet, Refills 3, Tot. Refills 3, Maintenance,10/05/21 17:40:00 EDT, Route to Pharmacy Electronically, [facility] #[id number], Partial fill upon patient request if the prescription is for a sc... Start Date: 10/05/21 Status: Ordered QUEtiapine 400 mg oral tablet, extended release 400 mg, 1, tablet, By Mouth, Daily in PM, # 90 tablet, Refills 1, Tot. Refills 1, Maintenance, 10/05/21 17:36:00 EDT, Route to Pharmacy Electronically, [facility] #[id number], Partial fill upon patient request if the prescription is for a schedul... Start Date: 10/05/21 Status: Ordered SENIOR LIVING VISIT FREQUENCY SENIOR LIVING VISIT FREQUENCY, See Instructions, # 1 each, Refills 0, Tot. Refills 0, Maintenance, PLEASE INCREASE SENIOR LIVING VISITS TO TWICE A DAY FOR MEDICATION MANAGEMENT AND ADMINISTRATION., 10/06/21 15:08:00 EDT, Supply Start Date: 10/06/21 Status: Ordered traZODone 100 mg oral tablet 200 mg, 2, tablet, By Mouth, Daily at bedtime, # 180 tablet, Refills 3, Tot. Refills 3, Maintenance, 10/05/21 17:36:00 EDT, Route to Pharmacy Electronically, [facility] #[id number], Partial fillupon patient request if the prescription [...] Range]: 1 2 Oxygen Saturation [94-100 %] 97 % (02/11/22 8:15 PM) 100 % (02/11/22 3:20 PM) Pulse Rate [55-90 bpm] 67 bpm (02/11/22 8:15 PM) 65 bpm (02/11/22 3:20 PM) Blood Pressure [90-138/55-84 mm Hg] 194/ 80mm Hg *H* (02/11/22 8:15 PM) 171/86mm Hg *H* (02/11/22 3:20 PM) Respiratory Rate [16-30 br/min] 18 br/mi n (02/11/22 8:15 PM) 18 br/min (02/11/22 3:20 PM) Temperature [96.8-100.4 DegF] 97.8 DegF (02/11/22 8:15 PM) 98.2 DegF (02/11/22 3:20 PM) Mode of Delivery (Oxygen) Room air (02/11/22 8:15 PM) Room air (02/11/22 3:20 PM) Temperature Route Oral (02/11/22 8:15 PM) Oral (02/11/22 3:20 PM) Social History Social History Type Response Smoking Status Current some day smo ker entered on: 02/15/18 Sex Patient Care team information Personnel Name: Maria Esther URIAS, Balaji Quick Address: Address: [address] [place] [address], [place] [address]-
--- OUTSIDE RECORDS SUMMARY | 2023-12-30 12:55 | XMS_ITS | Continuity of Care Document ---
Author Organization [facility] Rico Syed Aldair lt Address [address] [place] [address]- Care Team Providers Care Tube Maker Name Role Phone Maria Esther URIAS, Balaji Quick Primary Care Physician [phone] Encounter [facility] Date(s): 07/06/22 - 08/05/22 [facility] Rico Syed Adult [address] [place] [address]- Allergies, Adverse Reactions, Alerts Substance Reaction Severity [...] pneumococcal 23-valent vaccine 12/17/12 Recorded 1Result Comment: [id number] 2Result Comment: [02/15/2018] 24625-658-99 3Result Comment: [08/02/2017] [facility] 18802-623-32 Medications aspirin 81 mg oral delayed release tablet = 81 mg, By Mouth, Daily, # 90 tablet, 3 Refills, Maintenance, 10/05/21 17:34:00 EDT, EC Tablet, [facility] #[id number], Partial fill upon patient request if the prescription is for a schedule II opioid drug., 182, cm, 09/10/21 8:13:00 EDT, Heigh... Start Date: 10/05/21 Status: Ordered atorvastatin 80 mg oral tablet 1 tablet = 80 mg, By Mouth, Daily, # 90 tablet, 3 Refills, Maintenance, 10/05/21 17:34:00 EDT, Tablet, [facility] #[id number], Partial fill upon patient request if the prescription is for a schedule II opioid drug., 182, cm, 09/10/21 8:13:00 EDT,... Start Date: 10/05/21 Status: Ordered BuPROPion (Eqv-Wellbutrin SR) 150 mg/12 hours oral tablet, extended release 1 tablet = 150 mg, By Mouth, 2 times a day, # 180 tablet, 3 Refills, Maintenance, 10/05/21 17:37:00EDT, SR Tablet, [facility] #[id number], Partial fill upon patient request if the prescription is for a schedule II opioid drug., 182, cm, 09/10/21... Start Date: 10/05/21 Status: Ordered clopidogrel 75 mg oral tablet 1, tablet, By Mouth, Daily, # 90 tablet, Refills 3, Tot. Refills 3, Maintenance, 10/05/21 17:34:00 EDT, Route to Pharmacy Electronically, [facility] #[id number], 182, cm, 09/10/21 8:13:00 EDT, Height, 102.7, kg, 09/08/21 16:41:00 EDT, Dry Weight Start Date: 10/05/21 Status: Ordered Flonase 50 mcg/inh nasal spray 1 sprays = 50 mcg, Nares, Both, 2 times a day, # 16 Gm, 5 Refills, Maintenance, 09/29/20 16:49:00 EDT, Nasal [place], [facility] #[id number], Partial fill upon patient request if the [...] 3 Refills, Maintenance, 10/05/21 17:34:00 EDT, Capsule, [facility] #[id number], Partial fill upon patient request if the prescription is for a schedule II opioid drug., 182, cm, 09/10/21 8:13:00 E... Start Date: 10/05/21 Status: Ordered isosorbide mononitrate 30 mg oral tablet, extended release 1 tablet = 30 mg, By Mouth, Daily in AM, # 90 tablet, 3 Refills, 10/05/21 17:35:00 EDT, [facility] #[id number], 182, cm, 09/10/21 8:13:00 EDT, Height, 102.7, kg, 09/08/21 16:41:00 EDT, Dry Weight Start Date: 10/05/21 Status: Ordered lamotrigine 25 mg oral tablet 100 mg, 4, tablet, By Mouth, 2 times a day, # 720 tablet, Refills 3, Tot. Refills 3, Maintenance, 10/06/21 14:57:00 EDT, Route to Pharmacy Electronically, [facility] #[id number], Partial fill upon patient request if the prescription is for a sche... Start Date: 10/06/21 Stop Date: 10/01/22 Status: Ordered lidocaine 5% topical film 1 patch, Topically, Daily, PRN Pain , Mild, remove after 12 hours, # 30 patch, 11 Refills, Maintenance, 02/20/21 7:32:00 EDT, Patch, [facility], Partial fill upon patient request if the prescription is for a schedule II opioid drug., 1 patch T... Start Date: 02/20/21 Status: Ordered metoprolol 25 mg oral tablet 25 mg, 1, tablet, By Mouth, 2 times a day, increase in dose, # 60 tablet, Refills 2, Tot. Refills 2, Maintenance, 06/06/22 14:13:00 EST, Route to Pharmacy Electronically, [facility] #[id number],Partial fill upon patient request if the prescripti... [...] 10/05/21 17:36:00 EDT, Route to Pharmacy Electronically, [facility] #[id number], Partial fillupon patient request if the prescription [...] Team Personnel Name: Wild Woods RN Position: [facility] ED RN W/OE and Tasks Member Role: Primary Care Nurse Name: Camila Vazquez RN Position: [facility] RN Member Role: Primary Care Nurse Name: Amanda Garibay RN Position: [facility] RN Member Role: Primary Care Nurse Name: Mary Roberson RN Position: [facility] RN Member Role: Primary Care Nurse Name: Tomas Stauffer RN Position: [facility] RN Member Role: Primary Care Nurse Name: Balaji Mayo MD Position: [facility] Primary Care Physician Member Role: PCP Address: Address: [address] [place] [address]- [place] Care Team Related Persons Name: ROSANA NAGY Address: [address] [address] Name: GORAN QUINTERO
--- OUTSIDE RECORDS SUMMARY | 2023-12-30 12:55 | XMS_ITS | Continuity of Care Document ---
Author Organization [facility] Rico Syed Aldair lt Address [address] [place] [address]- Care Team Providers Care Truck Driver Supervisor Name Role Phone Maria Esther URIAS, Balaji Quick Primary Care Physician Encounter [facility] Date(s): 07/24/23 - 08/23/23 [facility] Rico Syed Adult [address] [place] [address]- Allergies, Adverse Reactions, Alerts Substance Reaction Severity Status Claritin Active Clozaril Active Benadryl Active Vistaril Active Nuts Active Nicotine Patch Active Abilify Active Immunizations Given and Recorded Vaccine Date [...] 23-valent vaccine 12/17/12 Recorded 1Result Comment: [02/15/2018] 09043-395-92 2Result Comment: [id number] 3Result Comment: [08/02/2017] [facility] [place] 55152-976-20 Medications Aspirin Low Dose 81 mg oral delayed release tablet 1 tablet, By Mouth, Daily, # 90 tablet, 3 Refills, Maintenance, 11/08/22 11:19:00 EDT, [facility] #[id number], 184, cm, 11/03/22 11:28:00 EDT, Height, 106.3, kg, 09/13/22 12:30:00 EDT, Dry Weight Start Date: 11/08/22 Status: Ordered atorvastatin 80 mg oral tablet 1 tablet = 80 mg, By Mouth, Daily, # 90 tablet, 3 Refills, Maintenance, 08/18/23 16:03:00 EDT, Tablet, [facility] #[id number], Partial fill upon patient request if the prescription is for a schedule II opioid drug., 183, cm, 08/09/23 10:49:00 EDT... Start Date: 08/18/23 Status: Ordered BuPROPion (Eqv-Wellbutrin SR) 150 mg/12 hours oral tablet, extended release 1 tablet = 150 mg, By Mouth, 2 times a day, # 180 tablet, 3 Refills, Maintenance, 10/05/21 17:37:00EDT, SR Tablet, [facility] #[id number], Partial fill upon patient request if the prescription is for a schedule II opioid drug., 182, cm, 09/10/21... Start Date: 10/05/21 Status: Ordered clopidogrel 75 mg oral tablet 1, tablet, By Mouth, Daily, # 90 tablet, Refills 3, Tot. Refills 3, Maintenance, 08/18/23 16:03:00 EDT, Route to Pharmacy Electronically, [facility] #[id number], 183, cm, 08/09/23 10:49:00 EDT, Height, 107, kg, 01/26/23 19:57:00 EDT, Dry Weight Start Date: 08/18/23 Status: Ordered FLUoxetine 40 mg oral capsule 1 capsule = 40 mg, By Mouth, Daily, # 90 capsule, 3 Refills, Maintenance, 10/05/21 17:34:00 EDT, Capsule, [facility] #[id number], Partial fill upon patient request if the prescription is for a schedule II opioid drug., 182, cm, 09/10/21 8:13:00 E... Start Date: 10/05/21 Status: Ordered fluticasone 50 mcg/inh nasal spray 1 sprays = 50 mcg, Nares, Both, 2 times a day, PRN allergies, # 16 Gm, 11 Refills, Maintenance, 08/18/23 16:05:00 EDT, [place], [facility] #[id number], Partial fill upon patient request if the [...] 11 Refills, Maintenance, 08/18/23 16:04:00 EDT, Tablet, [facility] #[id number], Partial fill upon patient request if the prescription is for a schedule II opioid dr... Start Date: 08/18/23 Status: Ordered Norvasc 2.5 mg oral tablet 2.5 mg, 1, tablet, By Mouth, Daily, # 90 tablet, Refills 3, Tot. Refills 3, Maintenance, 08/18/23 16:02:00 EDT, Route to Pharmacy Electronically, [facility] #[id number], Partial fill upon patient request if the prescription is for a schedule II o... Start Date: 08/18/23 Status: Ordered omeprazole 20 mg oral enteric coated capsule 1 capsule = 20 mg, By Mouth, Daily, # 90 capsule, 3 Refills, Maintenance, 08/18/23 16:04:00 EDT, [facility] #[id number], Partial fill upon patient request if the [...] 08/18/23 16:01:00 EDT, Route to Pharmacy Electronically, [facility] #[id number] Tablet, Partial fill upon ani... Start Date: 08/18/23 Stop Date: 08/17/24 Status: Ordered traZODone 100 mg oral tablet 200 mg, 2, tablet, By Mouth, Daily at bedtime, # 180 tablet, Refills 3, Tot. Refills 3, Maintenance, 10/05/21 17:36:00 EDT, Route to Pharmacy Electronically, [facility] #[id number], Partial fillupon patient request if the prescription [...] Care Nurse Name: Esme Garcia RN Position: [facility] RN Member Role: Primary Care Nurse Name: Erich Dias RN Position: [facility] RN Member Role: Primary Care Nurse Name: Camila Vazquez RN Position: [facility] RN Member Role: Primary Care Nurse Name: Taylor Beck RN Position: [facility] RN Member Role: Primary Care Nurse Name: Amanda Moraes RN Position: [facility] RN Member Role: Primary Care Nurse Name: Mary Roberson RN Position: [facility] RN Member Role: Primary Care Nurse Name: Tomas Stauffer RN Position: [facility] RN Member Role: Primary Care Nurse Name: Balaji Mayo MD Position: [facility] Physician - Primary Care Member Role: PCP Address: Address: [address] [place] [address]- [place] Care Team Related Persons Name: ROSANA NAGY Address: home [address] [place] [address] Name: GORAN QUINTERO
--- OUTSIDE RECORDS SUMMARY | 2023-12-30 12:55 | XMS_ITS | Continuity of Care Document ---
Author Organization [facility] Address [address], [address], [address] [place] [address]- Care Team Providers Care Typesetter Apprentice Name Role Phone Maria Esther URIAS, Balaji Quick Primary Care Physician [phone] Encounter [facility] Date(s): 09/04/22 - 10/04/22 [facility] [address], [address], [address] [place] [id number] Allergies, Adverse Reactions, Alerts [...] pneumococcal 23-valent vaccine 12/17/12 Recorded 1Result Comment: [id number] 2Result Comment: [02/15/2018] 12379-449-97 3Result Comment: [08/02/2017] [facility] 46449-777-25 Medications amLODIPine 10 mg oral tablet 10 mg, 1, tablet, By Mouth, Daily, # 30 tablet, Refills 0, Tot. Refills 0, Maintenance, 09/15/22 8:28:00 EDT, Route to Pharmacy Electronically, [facility] #[id number], Partial fill upon patient request if the prescription is for a schedule II opi... Start Date: 09/15/22 Status: Ordered aspirin 81 mg oral delayed release tablet = 81 mg, By Mouth, Daily, # 90 tablet, 3 Refills, Maintenance, 10/05/21 17:34:00 EDT, EC Tablet, [facility] #[id number], Partial fill upon patient request if the prescription is for a schedule II opioid drug., 182, cm, 09/10/21 8:13:00 EDT, Heigh... Start Date: 10/05/21 Status: Ordered atorvastatin 80 mg oral tablet 1 tablet = 80 mg, By Mouth, Daily, # 90 tablet, 3 Refills, Maintenance, 10/05/21 17:34:00 EDT, Tablet, [facility] #[id number], Partial fill upon patient request if the prescription is for a schedule II opioid drug., 182, cm, 09/10/21 8:13:00 EDT,... Start Date: 10/05/21 Status: Ordered BuPROPion (Eqv-Wellbutrin SR) 150 mg/12 hours oral tablet, extended release 1 tablet = 150 mg, By Mouth, 2 times a day, # 180 tablet, 3 Refills, Maintenance, 10/05/21 17:37:00EDT, SR Tablet, [facility] #[id number], Partial fill upon patient request if the prescription is for a schedule II opioid drug., 182, cm, 09/10/21... Start Date: 10/05/21 Status: Ordered clopidogrel 75 mg oral tablet 1, tablet, By Mouth, Daily, # 90 tablet, Refills 3, Tot. Refills 3, Maintenance, 10/05/21 17:34:00 EDT, Route to Pharmacy Electronically, [facility] #[id number], 182, cm, 09/10/21 8:13:00 EDT, Height, 102.7, kg, 09/08/21 16:41:00 EDT, Dry Weight Start Date: 10/05/21 Status: Ordered Flonase 50 mcg/inh nasal spray 1 sprays = 50 mcg, Nares, Both, 2 times a day, # 16 Gm, 5 Refills, Maintenance, 09/15/22 8:26:00 EDT, Nasal [place], [facility] #[id number], Partial fill upon patient request if the [...] 3 Refills, Maintenance, 10/05/21 17:34:00 EDT, Capsule, [facility] #[id number], Partial fill upon patient request if the [...] Maintenance, 09/15/22 8:27:00 EDT, Route to Pharmacy Electronically,[facility] #[id number], Partial fill upon pa... Start Date: 09/15/22 [...] tablet, 5 Refills, Maintenance, 09/18/22 18:55:00 EDT, [facility] #[id number], 184, cm, 09/15/22 9:12:00 EDT, Height, 106.3, [...] capsule, 1 Refills, Maintenance, 09/28/22 9:21:00 EDT, [facility] #[id number], Partial fill upon patient request if the [...] 10/05/21 17:36:00 EDT, Route to Pharmacy Electronically, [facility] #[id number], Partial fillupon patient request if the prescription [...] Team Personnel Name: [place] RN Position: [facility] ED RN W/OE and Tasks Member Role: Primary Care Nurse Name: Camila Vazquez RN Position: [facility] RN Member Role: Primary Care Nurse Name: Taylor Beck RN Position: [facility] RN Member Role: Primary Care Nurse Name: Amanda Garibay RN Position: [facility] RN Member Role: Primary Care Nurse Name: Mary Roberson RN Position: [facility] RN Member Role: Primary Care Nurse Name: Tomas Stauffer RN Position: [facility] ED RN W/OE and Tasks Member Role: Primary Care Nurse Name: Balaji Mayo MD Position: [facility] Physician - Primary Care Member Role: PCP Address: Address: [address] [place] [address]- Name: Fadumo Conti RN Position: [facility] RN Member Role: Primary Care Nurse Care Team Related Persons Name: ROSANA NAGY Address: home [address] [place] [address] Name: GORAN QUINTERO
--- OUTSIDE RECORDS SUMMARY | 2023-12-30 12:55 | XMS_ITS | Continuity of Care Document ---
Author Organization [facility] Kunal Aldair lt Address [address] [place] [address]- Care Team Providers Care Felter Tennis Balls Name Role Phone Balaji Mayo MD Primary Care Physician Encounter [facility] Date(s): 09/24/21 - 10/28/21 [facility] Kunal Adult [address] [place] [address]- Attending Physician: Not on Staff, Attending MD Referring Physician: Balaji Mayo MD Allergies, [...] 23-valent vaccine 12/17/12 Recorded 1Result Comment: [02/15/2018] 21017-873-31 2Result Comment: [08/02/2017] [facility] 12543-247-79 Medications aspirin 81 mg oral delayed release tablet = 81 mg, By Mouth, Daily, # 90 tablet, 3 Refills, Maintenance, 10/05/21 17:34:00 EDT, EC Tablet, [facility] #[id number], Partial fill upon patient request if the prescription is for a schedule II opioid drug., 182, cm, 09/10/21 8:13:00 EDT, Heigh... Start Date: 10/05/21 Status: Ordered atorvastatin 80 mg oral tablet 1 tablet = 80 mg, By Mouth, Daily, # 90 tablet, 3 Refills, Maintenance, 10/05/21 17:34:00 EDT, Tablet, [facility] #[id number], Partial fill upon patient request if the prescription is for a schedule II opioid drug., 182, cm, 09/10/21 8:13:00 EDT,... Start Date: 10/05/21 Status: Ordered BuPROPion (Eqv-Wellbutrin SR) 150 mg/12 hours oral tablet, extended release 1 tablet = 150 mg, By Mouth, 2 times a day, # 180 tablet, 3 Refills, Maintenance, 10/05/21 17:37:00EDT, SR Tablet, [facility] #[id number], Partial fill upon patient request if the prescription is for a schedule II opioid drug., 182, cm, 09/10/21... Start Date: 10/05/21 Status: Ordered clopidogrel 75 mg oral tablet 1, tablet, By Mouth, Daily, # 90 tablet, Refills 3, Tot. Refills 3, Maintenance, 10/05/21 17:34:00 EDT, Route to Pharmacy Electronically, [facility] #[id number], 182, cm, 09/10/21 8:13:00 EDT, Height, 102.7, [...] 5 Refills, Maintenance, 09/29/20 16:49:00 EDT, Nasal [place], [facility] #[id number], Partial fill upon patient request if the prescription is for a schedule II opioid drug., 1 sprays Nares, B... Start Date: 09/29/20 Status: Ordered FLUoxetine 40 mg oral capsule 1 capsule = 40 mg, By Mouth, Daily, # 90 capsule, 3 Refills, Maintenance, 10/05/21 17:34:00 EDT, Capsule, [facility] #[id number], Partial fill upon patient request if the [...] 90 tablet, 3 Refills, 10/05/21 17:35:00 EDT, [facility] #[id number], 182, cm, 09/10/21 8:13:00 EDT, Height, 102.7, [...] 10/06/21 14:57:00 EDT, Route to Pharmacy Electronically, [facility] #[id number], Partial fill upon patient request if the prescription is for a sche... Start Date: 10/06/21 Stop Date: 10/01/22 Status: Ordered lidocaine 5% topical film 1 patch, Topically, Daily, PRN Pain , Mild, remove after 12 hours, # 30 patch, 11 Refills, Maintenance, 02/20/21 7:32:00 EDT, Patch, [facility], Partial fill upon patient request if the prescription is for a schedule II opioid drug., 1 patch T... Start Date: 02/20/21 Status: Ordered metoprolol 25 mg oral tablet 12.5 mg, 0.5, tablet, By Mouth, 2 times a day, # 90 tablet, Refills 3, Tot. Refills 3, Maintenance,10/05/21 17:40:00 EDT, Route to Pharmacy Electronically, [facility] #[id number], Partial fill upon patient request if the prescription is for a sc... Start Date: 10/05/21 Status: Ordered QUEtiapine 400 mg oral tablet, extended release 400 mg, 1, tablet, By Mouth, Daily in PM, # 90 tablet, Refills 1, Tot. Refills 1, Maintenance, 10/05/21 17:36:00 EDT, Route to Pharmacy Electronically, [facility] #[id number], Partial fill upon patient request if the [...] 10/05/21 17:36:00 EDT, Route to Pharmacy Electronically, [facility] #[id number], Partial fillupon patient request if the prescription [...]
--- OUTSIDE RECORDS SUMMARY | 2023-12-30 12:55 | XMS_ITS | Continuity of Care Document ---
Author Organization [facility] Kunal Aldair Address [address] [place] [address]- Care Team Providers Care Beam Racker Name Role Phone Maria Esther URIAS, Balaji Quick Primary Care Physician [phone] [place] [facility] [place] 08/21/20 - 09/20/20 [facility] Adult [address] [place] [address]- Allergies, Adverse Reactions, Alerts Substance Reaction Severity [...] acel(Tdap) 2 08/02/17 Given 1Result Comment: [02/15/2018] 12283-682-26 2Result Comment: [08/02/2017] [facility] 08429-491-80 Medications amLODIPine 5 mg oral tablet 2.5 [...] 09/14/20 12:44:00 EDT, Route to Pharmacy Electronically, [facility] #[id number], 180, cm, 09/07/20 10:33:00 EDT, Height Start Date: 09/14/20 Status: Ordered cyclobenzaprine 5 mg oral tablet 1 tablet = 5 mg, By Mouth, 3 times a day, PRN Pain , Moderate, for 10 days, # 30 tablet, 1 Refills,Acute 09/27/20 16:55:00 EDT, 09/07/20 16:55:00 EDT, Tablet, [email or web address], Partial fill upon patient request if the prescription is for a schedule... Start Date: 09/07/20 Stop Date: 09/27/20 Status: Ordered cyclobenzaprine 5 mg oral tablet 1 tablet = 5 mg, By Mouth, 2 times a day, PRN Pain , Moderate, for 14 days, Replaces previous prescription, # 28 tablet, 5 Refills, Acute 12/20/20 16:55:00 EDT, 09/27/20 16:55:00 EDT, Tablet, [facility], Partial fill upon patient [...] 09/13/20 6:59:00 EDT, Route to Pharmacy Electronically, [facility] #[id number], Partial fill upon patient request if the [...] tablet, 0 Refills, Maintenance, 09/14/20 12:44:00 EDT, [facility] #[id number], 180, cm, 09/07/20 10:33:00 EDT, Height Start [...] Maintenance, 217:58:00 EDT, Route to Pharmacy Electronically, [facility] #[id number], Partial fill upon patient request if the [...]
--- OUTSIDE RECORDS SUMMARY | 2023-12-30 12:55 | XMS_ITS | Continuity of Care Document ---
Author Organization [facility] ter Address [address] [place] [id number]- Care Team Providers Care Nutrition Helper Name Role Phone Maria Esther URIAS, Balaji Quick Primary Care Physician [phone] Encounter [facility] [place] Date(s): 01/26/23 - 02/01/[address] [id number] Discharge Disposition: A-Transfer SNF Attending Physician: Anthony Olsen MD Admitting Physician: Michelle Rivera DO Referring Physician: Not on Staff, Referring [...] 23-valent vaccine 12/17/12 Recorded 1Result Comment: [02/15/2018] [id number] 2Result Comment: [id number] 3Result Comment: [08/02/2017] [facility] [id number] Medications Aspirin Low Dose 81 mg oral delayed release tablet 1 tablet, By Mouth, Daily, # 90 tablet, 3 Refills, Maintenance, 11/08/22 11:19:00 EDT, [id number], 184, cm, 11/03/22 11:28:00 EDT, Height, 106.3, kg, 09/13/22 12:30:00 EDT, Dry Weight Start Date: 11/08/22 Status: Ordered atorvastatin 80 mg oral tablet 1 tablet = 80 mg, By Mouth, Daily, # 90 tablet, 3 Refills, Maintenance, 12/05/22 4:30:00 EDT, Tablet, [facility] #[id number], Partial fill upon patient request if the prescription is for a schedule II opioid drug., 183, cm, 11/10/22 17:28:00 EDT,... Start Date: 12/05/22 Status: Ordered BuPROPion (Eqv-Wellbutrin SR) 150 mg/12 hours oral tablet, extended release 1 tablet = 150 mg, By Mouth, 2 times a day, # 180 tablet, 3 Refills, Maintenance, 10/05/21 17:37:00EDT, SR Tablet, [facility] #[id number], Partial fill upon patient request if the prescription is for a schedule II opioid drug., 182, cm, 09/10/21... Start Date: 10/05/21 Status: Ordered clopidogrel 75 mg oral tablet 1, tablet, By Mouth, Daily, # 90 tablet, Refills 3, Maintenance, 01/13/23 16:50:00 EDT, Route to Pharmacy Electronically, [facility] #[id number], 183, cm, 12/05/22 16:08:00 EDT, Height, 106.3, kg, 09/13/22 12:30:00 EDT, Dry Weight Start Date: 01/13/23 Status: Ordered Flonase 50 mcg/inh nasal spray 1 sprays = 50 mcg, Nares, Both, 2 times a day, # 16 Gm, 5 Refills, Maintenance, 09/15/22 8:26:00 EDT, Nasal [place], [facility] #[id number], Partial fill upon patient request if the prescription is for a schedule II opioid drug., 1 sprays Nares, [place]... Start Date: 09/15/22 Status: Ordered FLUoxetine 40 mg oral capsule 1 capsule = 40 mg, By Mouth, Daily, # 90 capsule, 3 Refills, Maintenance, 10/05/21 17:34:00 EDT, Capsule, [facility] #[id number], Partial fill upon patient request if the [...] 11 Refills, Maintenance, 11/30/22 6:36:00 EDT, Tablet, [facility] #[id number], Partial fill upon patient requestif the prescription is for a schedule II opioid lisa... Start Date: 11/30/22 Status: Ordered omeprazole 20 mg oral enteric coated capsule 1 capsule = 20 mg, By Mouth, Daily, # 30 capsule, 1 Refills, Maintenance, 09/28/22 9:21:00 EDT, [facility] #[id number], Partial fill upon patient request if the [...] 10/05/21 17:36:00 EDT, Route to Pharmacy Electronically, [facility] #[id number], Partial fillupon patient request if the prescription [...] Discern Expert 2repeat screening colonoscopy in 2021 Results Radiology Reports * Exam Date Time Procedure Performing Provider Status 01/28/23 12:58 PM US Doppler Ext Upper Venous Left Arelis Neil; Auth (Verified) Notes: (US Doppler Ext Upper Venous Left) Reason For Exam: Swelling Extremities;Swelling Extremities RESULT: US Doppler Ext Upper Venous Left US Doppler Ext Upper Venous Left Reason: Swelling Extremities; Clinical Question(s): COMPARISON: None. IMAGING TECHNIQUE: Ultrasound examination of the upper extremity deep venous system was performed using grayscale, color, and spectral wave analysis including response to compression. Assessment includes the contralateral jugular and subclavian vein. FINDINGS: Internal jugular vein: Patent. No thrombosis. Subclavian vein: Patent. No thrombosis. Axillary vein: Patent. No thrombosis. Brachial vein: Patent. No thrombosis. Basilic vein: Patent. No thrombosis. Cephalic vein: Patent. No thrombosis. Contralateral internal jugular vein: Patent. No thrombosis. Contralateral subclavian vein: Patent. No thrombosis. IMPRESSION: No evidence of venous thrombosis. WSN: [id number] Ordering Physician: Bernard Olguin Dictated By: Kaushal Santa MD Dictated Date/Time: 01/28/23 2:05 pm Reviewed By: Kaushal Santa MD Signed By: Kaushal Santa MD Signed Date/Time: 01/28/23 2:05 pm Transcribed By: JOSEPH Transcribed Date/Time: 01/28/23 2:04 pm * Exam Date Time Procedure Performing Provider Status 01/28/23 11:32 AM Chest Portable Jessenia Mai; Auth ( Verified) Notes: (Chest Portable) Reason For Exam: Shortness of Breath RESULT: Chest Portable PROCEDURE: Chest Portable CLINICAL INDICATION: 67 years old Male with Reason: Shortness of Breath; Clinical Question(s): Pulmonary Edema. COMPARISON: 2010 through November 09, 2022. FINDINGS: Portable AP erect view of the chest performed at 11:25 AM. Lines and tubes: Several EKG leads project over the chest. Lungs and pleura: Lungs are clear as visualized. No pleural effusions.No evidence of pneumothorax. Heart, mediastinum and misha: Mild unchanged tortuosity and calcification of the thoracic aorta noted. Mild unchanged cardiomegaly without pulmonary venous hypertension. [Coronary artery stent again noted. Bones and soft tissues: Moderate linear changes in the lower thoracic spine again seen. IMPRESSION: 1. Mild cardiomegaly without evidence of decompensation. No evidence of edema. Coronary artery stent. Thank you for allowing me to participate in the care of this patient. WSN: [id number] Ordering Physician: Taylor Hernandez Dictated By: Shon Mendoza MD Dictated Date/Time: 01/28/23 12:27 p Reviewed By: Shon Mendoza MD Signed By: Shon Mendoza MD Signed Date/Time: 01/28/23 12:27 pm Transcribed By: JOSEPH Transcribed Date/Time: 01/28/23 12:25 pm Vital Signs Most recent to oldest [Reference Range]: 1 2 3 Height 183 cm (02/01/23 8:00 AM) 183 cm (02/01/23 2:01 AM) 183 cm (01/31/23 7:21 PM) Weight 102.7 kg (02/01/23 5:49 AM) 102.2 kg (01/31/23 8:09 AM) 101.9 kg (01/31/23 5:27 AM) Oxygen Saturation [94-100 %] 93 % *L* (02/01/23 8:00 AM) 95 % (02/01/23 2:01 AM) 94 % (01/31/23 7:21 PM) Pulse Rate [55-90 bpm] 62 bpm (02/01/23 8:00 AM) 96 bpm *H* (02/01/23 2:01 AM) 54 bpm *L* (01/31/23 7:21 PM) Body Mass Index [18.5-24.99 kg/m2] 31.2 kg/m2 *>HHI* (01/26/23 7:57 PM) Blood Pressure [90-138/55-84 mm Hg] 145/89mm Hg *H* (02/01/23 8:00 AM) 105/74mm Hg (02/01/23 2:01 AM) 131/74mm Hg (01/31/23 7:21 PM) Respiratory Rate [16-30 br/min] 18 br/min (02/01/23 8:00 AM) 20 br/min (02/01/23 2:01 AM) 20 br/min (01/31/23 7:21 PM) Temperature [96.8-100.4 DegF] 98.9 DegF (02/01/23 8:00 AM) 97.7 DegF (02/01/23 2:01 AM) 98.5 DegF (01/31/23 7:21 PM) Liters per Minute 1 L/min (01/27/23 7:34 AM) 2 L/min (01/27/23 2:54 AM) 2 L/min (01/27/23 2:11 AM) Mode of Delivery (Oxygen) Room air (02/01/23 8:00 AM) Room air (02/01/23 2:01 AM) Room air (01/31/23 7:21 PM) Blood pressure sites Arm, right (02/01/23 8:00 AM) Arm, right (02/01/23 2:01 AM) Arm, right (01/31/23 7:21 PM) Temperature Route Oral (02/01/23 8:00 AM) Temporal (02/01/23 2:01 AM) Temporal (01/31/23 7:21 PM) Dry Weight 107 kg (01/26/23 7:57 PM) Weight Obtained Via Bed scale (02/01/23 5:49 AM) Bed scale (01/31/23 8:09 AM) Bed scale (01/31/23 5:27 AM) Dry Weight Obtained Via Patient/family stated (01/26/23 7:57 PM) Social History Social History Type Response Smoking Status Current some day smo ker entered on: 02/15/18 Sex Note * Esme Garcia RN: PERFORM Event Display: Discharge/Transfer Note Hospital Authored Date: [id number] Nursing Discharge Note Entered On: 02/01/2023 10:30 EDT Performed On: 02/01/2023 10:29 EDT by Esme Garcia RN Nursing Discharge Note 2 Discharge Time : 02/01/2023 10:29 EDT Discharge Level of Care at Discharge : penitentiary facility Discharge Nursing Homes/Rehab Facilities : [facility] Patient Left Unit Via : Wheelchair Patient Accompanied Off Unit with : Responsible adult DC Instructions Provided & Signed by Pt : No Patient Understands D/C Instructions : No Patient Instructions Discharge Signed : No Instructions for Discharge Comments : PT discharged to snf Did Pt have Specialty Bed or Wound Vac : Yes Esme Garcia RN - 02/01/2023 10:29 EDT * Event Display: Discharge/Transfer Note Hospital Authored Date: [id number] * Jaycee Randolph RN: PERFORM Event Display: Patient Education/Instruction Authored Date: [id number] Inpatient Adult Discharge Instructions [address] [address] Name: EDWARD NAGY : 1955 Visit: 01/26/2023 19:41:00 Current Date: 02/01/2023 07:36 Account: [id number] Inpatient Adult Discharge Instructions We would like [...] and their families. Surveys are administered by [employer] ?? If further treatment with your primary care physician or another doctor is recommended, it is important for you to keep the appointment. Call your primary care physician or return to the Emergency Department immediately if your condition worsens, fails to improve, or new symptoms develop. If you need to find a doctor, you can call [facility] [employer] for a referral at [phone] or toll free at [phone] or log in to [email or web address].. ?? [facility], in keeping with [facility] guidance, no longer requires face masks for staff, patientsor visitors in most situations. Similiar to time spent indoors at other locations, there is the chance that you were exposed to repiratory viruses during your time with us (such as flu or COVID-19). If you develop symptoms concerning for a viral respiratory infection, please seek testing (and treatment if indicated) from your medical provider or home test kit. ?? You can view and manage your care through the patient portal or by using a health care romel of your choosing. [employer] is a website that allows you to securely view your medical information including your hospital discharge summary, office visit summaries, medications and follow-up visits. You can also request appointments, renew medications, and request access to your medical information using a health care romel of your choosing, or just ask a question. You can enroll at [email or web address] or register during your next office visit. You have been discharged from [facility], Patient Care Unit: M7. If you have any questions regarding these instructions after you leave, please call us and we will be happy to assist you. [facility] Your Care Team Attending Physician Anthony Olsen MD Reason for Admission NSTEMI Your Diagnosis NSTEMI, initial episode of care Tests Performed Below is a partial list of the tests performed during your hospitalization. You may have had other tests and procedures not included in this list. Please discuss all test results with your provider. ABG Basic Metabolic Panel CBC CBC w/ Differential Comprehensive Metabolic Panel Hemoglobin A1C (Monitoring) HOLD LAVENDER TUBE Lipid Panel Magnesium Level POC Hemochron ACT-LR PTT Troponin T, High Sensitivity TSH CXR Portable US Doppler Ext Upper Venous Left Primary Care Provider Balaji Mayo MD Advance Directive Health Care Proxy on File Yes - Health Care Proxy Discharge Vitals Temperature: 97.7 DegF Height: 183 cm Pulse Rate:??96 bpm??High Weight: 102.7 kg Respiratory Rate: 20 br/min Body Mass Index:??31.2 kg/m2??Critical Systolic Blood Pressure: 105 mm Hg Body surface area: 2.3 Diastolic Blood Pressure: 74 mm Hg ?? Oxygen Saturation: 95 % ?? Studies Pending All tests and labs ordered during this hospital stay have been completed unless listed below. Please discuss all pending results with your provider listed above in these instructions. ?? Complete Urinalysis (Urinalysis Complete) Creatinine Urine (Urine Creatinine) Sodium Urine (Urine Na) What to do next Instructions From Your Doctor You presented to [facility] with??chest pain??were brought to [facility] as a transfer after you were identified to have a narrowing of the arteries (blood vessels) in your heart. You??had a procedure??where a stent was placed in your??heart ??vessels to open up the occlusion and restore blood flow. You were brought to the floor and monitored for any arrhythmia. During your stay, your labs showed that there was some slight injury to your kidneys which was likely due to the contrast used during your procedure. We gave you some fluids and your kidney function improved. You were cleared by our physical therapists to be discharged to a rehab facility. If you experience any shortness of breath, chest pain or palpitations please return to the emergency room or call 911.Please follow up with your PCP in a few weeks regarding your hospital stay. Discharge Orders Scheduled Follow-Up Appointments Monday 9:50 AM EDT ?? With: Balaji Mayo MD Where: [address] [address]- Status: Pending Monday 9:00 AM EST ?? Where: [facility] [address] [place] [address]- Status: Pending Monday 10:30 AM EST ?? With: Rose HYATT, Key Han Where: [facility] [address] [place] [address]- Status: Pending Monday 4:00 PM EST ?? With: Cindy URIAS, Reagan Diaz Where: [facility] [address] [facility] 3rd Floor, [address] [place] [address]- Status: Pending You Need to Schedule the Following Appointments Follow Up with??[facility] When:??Within 1 month Why: [phone] Where: [address] [place] [address] Follow Up with??Balaji Mayo When:??In 0 days Discharge Medications EDWARD NAGY :1955 Visit Date:01/26/2023 Medications: Please continue your medications until treatment is completed or stopped by your provider. Medications not listed below should be discontinued. Discuss any questions related to medications with your provider. What How Much When Instructions Next Dose Changed Fluoxetine (FLUoxetine 40 mg oral capsule) 1 capsule Oral Daily tomorrow at 8am Unchanged Aspirin (Aspirin Low Dose 81 mg oral delayed release tablet) 1 tab(s) Oral Daily tomorrow at 8am Unchanged Atorvastatin (atorvastatin 80 mg oral tablet) 1 tab(s) Oral Daily tonight at bedtime Unchanged BuPROpion (BuPROPion (Eqv-Wellbutrin SR) 150 mg/ 12 hours oral tablet, extended release) 1 tab(s) Oral Twice a day tonight at bedtime Unchanged Clopidogrel (clopidogrel 75 mg oral tablet) 1 tab(s) Oral Daily tomorrow at 8am Unchanged Fluticasone Nasal (Flonase 50 mcg/ inh nasal spray) 1 spray(s) Nares, Both Twice a day tonight at 8pm Unchanged Lamotrigine (lamotrigine 100 mg oral tablet) 1 tab(s) Oral Twice a day tonight at 8pm Unchanged Lidocaine Topical (Lidoderm 5% film) Topically Daily tomorrow at 8am Unchanged Nitroglycerin (Nitrostat 0.4 mg sublingual tablet) 1 tab(s) Sublingual Every 5 minutes as needed for Chest Pain prn ?? Every 5 minutes as needed for chest pain times as needed Unchanged Omeprazole (omeprazole 20 mg oral enteric coated capsule) 1 capsule Oral Daily Duration: 30 Days tomorrow at 8am Unchanged Quetiapine (QUEtiapine 400 mg oral tablet, extended release) 1 tab(s) Oral Daily at Bedtime bedtime tonight Unchanged Trazodone (traZODone 100 mg oral tablet) 2 tab(s) Oral Daily at Bedtime bedtime tonight ?? What How Much When Comments Stop Taking Amlodipine (amLODIPine 10 mg oral tablet) 1 tab(s) Oral Daily STOP TAKING Stop Taking Isosorbide Mononitrate (isosorbide mononitrate 30 mg oral tablet, extended release) 1 tab(s) Oral Daily in the morning STOP TAKING Stop Taking Metoprolol (Metoprolol Tartrate 25 mg oral tablet) 1 tab(s) Oral Twice a day INCREASE IN DOSE ?? STOP TAKING Test Results Below is a partial list of the most recent Laboratory test results done prior to this discharge. You may have had other tests and procedures not included in this list. Please discuss all test resultswith your provider. Est Creatinine Clearance - 42.04 mL/min (01/31/2023) ABG (01/29/2023) ???pH - 7.39???pCO2 - 40 mm Hg???pO2 - 69 mm Hg???Bicarbonate, Estimated - 24 mmol/L???Specimen Type - Blood Gas - ARTERIAL???Percent O2 (FIO2) - 21 Basic Metabolic Panel (01/31/2023) ???Sodium - 135 mmol/L???Potassium - 4.1 mmol/L???Chloride - 102 mmol/L???Bicarbonate Level - 23 mmol/L???Anion Gap - 10???Glucose Level - 127 mg/dL???BUN - 28 mg/dL???Creatinine-Blood - 1.9 mg/dL???Estimated GFR Creatinine - 38 ML/MIN/1.73 M2???Calcium - 8.9 mg/dL CBC (01/31/2023) ???WBC - 9.8 k/mm3???RBC - 4.46 m/mm3???Hgb - 13.2 Gm/dL???Hct - 40.4 %???MCV - 90.6 femtoliters???MCH - 29.6 pg???MCHC - 32.7 g/dL???Platelet Count - 226 k/mm3???RDW-SD - 44.8 femtoliters???MPV - 10.3 femtoliters???Nucleated RBC (Automated) - 0.0 #/100 WBC'S???Abs. NRBC - 0.0 k/mm3 CBC w/ Differential (01/29/2023) ???WBC - 10.0 k/mm3???RBC - 4.41 m/mm3???Hgb - 13.3 Gm/dL???Hct - 40.4 %???MCV - 91.6 femtoliters???MCH - 30.2 pg???MCHC - 32.9 g/dL???Platelet Count - 217 k/mm3???RDW-SD - 46.0 femtoliters???MPV - 10.3 femtoliters???Nucleated RBC (Automated) - 0.0 #/100 WBC'S???Abs. NRBC - 0.0 k/mm3???Abs. Neut - 6.7 k/mm3???Abs. Lymph - 1.8 k/mm3???Abs. Long - 0.9 k/mm3???Abs. Eo - 0.5 k/mm3???Abs. Baso - 0.1 k/mm3???Neut % - 66.9 %???Lymph % - 18.1 %???Long % - 8.8 %???Eos % - 5.2 %???Baso % - 0.7 %???Imm Gran - 0.3 %???Abs. Imm Gran - 0.0 k/mm3 Comprehensive Metabolic Panel (01/27/2023) ???Sodium - 138 mmol/L???Potassium - 4.2 mmol/L???Chloride - 104 mmol/L???Bicarbonate Level - 23 mmol/L???Anion Gap - 11???Glucose Level - 107 mg/dL???BUN - 20 mg/dL???Creatinine-Blood - 1.4 mg/dL???Estimated GFR Creatinine - 55 ML/MIN/1.73 M2???Calcium - 8.7 mg/dL???Protein, Total - 6.1 Gm/dL???Albumin - 3.6 Gm/dL???AG Ratio - 1.4???Alkaline Phosphatase - 109 units/L???AST (SGOT) - 19 units/L???ALT (SGPT) - 17 units/L???Bilirubin, Total - 0.5 mg/dL Hemoglobin A1C (Monitoring) (01/27/2023) ???Hemoglobin A1C (Monitoring) - 5.6 % HOLD LAVENDER TUBE (01/27/2023) ???Hold Lavender Top - SPECIMEN DISCARDED AFTER 24 HOURS. Lipid Panel (01/27/2023) ???Cholesterol - 180 mg/dL???Triglycerides - 123 mg/dL???HDL Cholesterol - 37 mg/dL???LDL Cholesterol - 118 mg/dL???Non HDL Cholesterol - 143 mg/dL Magnesium Level (01/29/2023) ???Magnesium - 2.1 mg/dL POC Hemochron ACT-LR (01/27/2023) ???POC ACT-LR - 358.0 seconds PTT (01/27/2023) ???APTT - 99.5 seconds Troponin T, High Sensitivity (01/27/2023) ???High Sensitivity Troponin (HSTnT) - 10 ng/L TSH (01/27/2023) ???TSH - 1.52 uIU/mL Immunizations This Visit Given Vaccine Date influenza virus vaccine, inactivated 01/28/2023 Allergies (NKA means No Known Allergies) Abilify Benadryl Claritin Clozaril Nicotine Patch Nuts Vistaril Problems Active Problems??(23) AAA (abdominal aortic aneurysm)?? Bipolar disorder?? BPH [...] Educational Leaflet Providered with your Discharge Instructions. Nitroglycerin Sublingual Tablet?? Discharge Instructions for Cardiac Catheterization?? Understanding Transradial Cardiac Catheterization?? Diet, Low Salt 3gm?? Discharge Instructions for High Blood Pressure (Hypertension)?? Symptoms of a Heart Attack?? Aspirin Delayed Release Oral Tablet?? Clopidogrel Oral Tablet?? Atorvastatin Oral Tablet?? The Benefits of Cardiac Rehabilitation?? Valuables and Belongings I fully understand and agree that [facility] accepts no responsibility for all my [...] to send valuables and belongings home. ?? Review of Valuable and Belonging List: With patient Date for Pt to Sign Valuables/Belongings: 01/26/23 22:00:00 ?? Other Discharge Information ?? Wound Assessment?? Wound Assessment?? Wound Location I: Face ?? Case Management Discharge Plan?? Discharge Plan?? Discharge Agency Information?? Discharge Level of Care at Discharge: penitentiary facility Name of Agency #1: [facility] Discharge Transportation Arranged: [facility] Service Categories #1: Occupational Therapy, Physical Therapy, Longterm Mode of Transportation Arranged: Other Additional Info for D/C Instructions: You are being discharged to [facility] today at 1 PM. You did not qualify for an ambulance at this time but [facility] will pick you up and bring you there. Discharge Arranged Transport Date/Time: 01/31/23 13:00:00 Name of Person Notified of Transfer: Tim Discharge Nursing Homes/Rehab Facilities: [facility] ? Pulmonary Rehab Status?? Pulmonary Rehab Discharge Status?? Respiratory Rate: 20 br/min ? Cardiac Rehab Assessment?? Cardiac Rehab Inpatient Assessment?? Comments-Education: post procedure guidelines Comments-Exercise Activity: phase 2 referral Comments-Nutrition: per RD Comments-Lipids: meds and diet Patient attending Phase II: Yes Phase II Site of Care: [place] [address] [place] [address] [phone] Common Emergency Awareness Tips IS IT A [...] are strongly encouraged to quit. Please call [facility] at [phone] or [phone] ([phone]) or log in to [email or web address] for referrals to smoking cessation programs. ?? 879 Suicide & Crisis Lifeline is available 14/11 if you or someone you know needs to find a reason to keep living. By calling 734 you'll be connected to a skilled, trained counselor at a crisis center in your area. INPATIENT DISCHARGE INSTRUCTIONS SIGNATURE PAGE EDWARD NAGY Location:[facility] Registration Date and Time:01/26/2023 19:41 EDT Primary Care Physician: Balaji Mayo MD, Attending Physician: Anthony Olsen MD, I EDWARD NAGY, have received the above patient education materials/instructions and have verbalized understanding. If ambulance or transport services are being used I further acknowledge beinggiven a choice of service. ?? If you need to contact me, please call me at this number: . Patient/Associate Director Regulatory Affairs Name: Patient/Associate Director Regulatory Affairs Signature: Relationship to Patient: Witness Name/Signature: Date: * Jaycee Randolph RN: PERFORM Event Display: Patient Education Leaflets Authored Date: [id number] Nitroglycerin Sublingual Tablet ?? 76695-51 Nitroglycerin Sublingual Tablet Brands: Nitrostat Uses This medicine is used for the following purposes: ??? angina ??? heart attack ?? Instructions Place the pill under the tongue and let it dissolve. Keep the medicine in its original container. Use 1 tablet 5-10 minutes before activity to try to prevent chest pain. Keep this medicine at room temperature. Protect from moisture and high humidity. Keep the medicine away from heat and light. Drug interactions can change how medicines work or increase risk for side effects. Tell your healthcare providers about all medicines taken. Include prescription and [id number] medicines, vitamins, and herbal medicines. Speak with your doctor or pharmacist before starting or stopping any medicine. Tell your doctor if symptoms do not get better or if they get worse. ?? Cautions Tell your doctor and pharmacist if you ever had an allergic reaction to a medicine. Do not use the medication any more than instructed. Your ability to stay alert or to react quickly may be impaired by this medicine. Do not drive or operate machinery until you know how this medicine will affect you. It is unknown if this medicine passes into breast milk. Ask your doctor before . During , this medicine should be used only when clearly needed. Talk to your doctor about the risks and benefits. Do not take this medicine with other medicines called PDE5 inhibitors (Viagra, Levitra, Cialis). Your doctor will let you know if it is safe for you to do so. Do not share this medicine with anyone who has not been prescribed this medicine. ?? Side Effects The following is a list of some common side effects from this medicine. Please speak with your doctor about what you should do if you experience these or other side effects. ??? dizziness ??? feeling of heat or flushing ??? headaches ??? low blood pressure ??? nausea Call your doctor or get medical help right away if you notice any of these more serious side effects: ??? fainting ??? rapid heartbeat A few people may have an allergic reaction to this medicine. Symptoms can include difficulty breathing, skin rash, itching, swelling, or severe dizziness. If you notice any of these symptoms, seek medical help quickly. ?? Extra Please speak with your doctor, nurse, or pharmacist if you have any questions about this medicine. ?? [email or web address] IMPORTANT NOTE: This document tells you briefly how to take your medicine, but it does not tell youall there is to know about it. Your doctor or pharmacist may give you other documents about your medicine. Please talk to them if you have any questions. Always follow their advice. There is a more complete description of this medicine available in Italian. Scan this code on your smartphone or tablet or use the web address below. You can also ask your pharmacist for a printout. If you have any questions, please ask your pharmacist. The display and use of this drug information is subject to Terms of Use. Copyright(c) 2022 [employer]. ?? [employer]. All rights reserved. This information is not intended as a substitute for professional medical care. Always follow your healthcare professional's instructions. ?? * Jaycee Randolph RN: PERFORM Event Display: Patient Education Leaflets Authored Date: [id number] Discharge Instructions for Cardiac Catheterization ?? 80837 Discharge Instructions for Cardiac Catheterization Cardiac catheterization??is an invasive??procedure??to look for certain heart problems. These problems may affect the heart's chambers, valves, and blood vessels. A thin, flexible tube (catheter) is put in a blood vessel in your groin or arm. The catheter is moved to the heart. The healthcare provider can look at the blood flow, blood pressure, and oxygen. They can inject contrast fluid??into your blood. This flows to your heart.??The provider can then take X-rays pictures?? of your heart. Coronary angiography is often done as part of a cardiac cath. This looks for blocked areas in the arteries that send blood to the heart. If a blockage is found, your provider may try to open up the artery. They may put a stent in place. Your provider will talk with you about the results of your procedure . Ask any questions you have before you leave. This sheet will help you take care of yourselfat home. Home care ??? Have a responsible adult drive you home after your procedure. ??? Don't drive or makeany important decisions for at least 24 hours after getting any type of sedation or anesthesia.? Drink?? 6 to 8??glasses of water over the next 24 hours. This is to help flush the contrast dye out of your body. Call your healthcare team if your urine has any change in color. ??? Take your tempe rature each day for 3 to 5 days. If you feel cold and clammy or start sweating, take your temperature right away. Call your healthcare team. ??? Do only light and easy activities for??the next?? 2 to3??days. Ask for help with chores and errands while you recover. Have someone drive you to your appointments. ??? Don't lift anything heavy??until your healthcare team says it's safe. ??? Ask your healthcare team when you can expect to return to work. Unless your job involves lifting, you may be able to return to your normal activities within 2 days. ??? Take your medicines as directed. Don't skip doses. ??? Check your incisions every day for signs of infection. These include redness, swelling,and fluid leaking. It's normal to have a small bruise or bump where the catheter was put in. A bruise that's getting larger is not normal. Tell your healthcare team about this. Call your healthcare team if you see blood forming in the incision. Go to the emergency room if you have uncontrolled bleeding from the artery site. This is even more important if you take medicines that make it hard for your blood to clot. These include aspirin, clopidogrel, warfarin, apixaban, and rivaroxaban. ??? Eat a healthy diet. Make sure it's low in fat, salt, and cholesterol. Ask your healthcare team for diet information. ??? Stop smoking. Sign up for a quit-smoking program. Or ask your healthcare team for help. ??? Exercise as your healthcare team tells you to. Your healthcare team??may advise you to start a cardiac rehab program. Cardiac rehab is an exercise program where trained healthcare staff watchyour progress and stress on your heart while you exercise. Ask your team how to enroll. ??? Don't swim or take baths until your healthcare team says it???s OK. You can shower the day after the procedure. Keep the site clean and dry. This keeps the incision from getting wet and infected until the skin and artery can heal. ??? Follow all other after-care instructions from your team.? Follow-up care ??? Make a follow-up appointment as advised. It's common to have a follow-up appointment 2 to 4 weeks after an angioplasty or coronary stent procedure. ??? Make a yearly appointment. This is??to make sure you're still doing well and not having any new symptoms. ??? Don't wait for a follow-up appointment if your medicines aren't working or you're having heart-related symptoms. Call your healthcare provider. ?? When to get medical care Call your healthcare provider right away if you have any of these: ??? Severe or increasing pain, numbness, coldness, or a bluish color in the leg or arm that held the catheter ??? Fever of 100.4?? F??( 38??C) or higher, or as advised by your healthcare provider ??? Signs of infection at the incision site. These include redness, swelling, drainage, or warmth. ??? Bleeding, bruising, or a lot of??swelling where the catheter was inserted ??? Blood in your urine ??? Black or tarry stools ??? Any unusual bleeding ??? Irregular, very slow, or fast heartbeat ??? Dizziness ?? Call 911 Call 911 if you have any of these: ??? Chest pain ??? Shortness of breath ??? Sudden numbness or weakness in arms, legs, or face, or trouble speaking ??? The puncture site swells up very fast ??? Bleeding from the puncture site that doesn't slow down with firm pressure ?? Last Reviewed Date: 2021 ?? 0483-3106 [employer]. All rights reserved. This information is not intended as a substitute for professional medical care. Always follow your healthcare professional's instructions. ?? * Jaycee Randolph RN: PERFORM Event Display: Patient Education Leaflets Authored Date: [id number] Understanding Transradial Cardiac Catheterization ?? 83763 Understanding Transradial Cardiac Catheterization Cardiac catheterization (cardiac cath) is a common, non-surgical procedure. During the procedure, your doctor will insert a long, thin tube (catheter) into an artery and move it up into your heart. Transradial means the catheter is inserted into an artery in the wrist (the radial artery) rather than the groin (the femoral artery). This procedure can be used to diagnose and treat certain heart problems. Why do I need a transradial cardiac cath? You may need a cardiac cath if signs indicate a problem with your heart. These may include: ??? Symptoms of chest pain, tightness, or heaviness (known as angina). This is a common symptom of blocked heart arteries, known as coronary artery disease. ??? Symptoms of weakness, dizziness, trouble breathing, or swollen legs or feet. These may be symptoms of a problem with a heart valve or the heart muscle. ??? Other test results show heart problems. Tests may include stress tests, heart scans, and echocardiography. During a cardiac cath, your doctor can see the condition of the coronary arteries and heart valves.They can also check how well the heart pumps and the flow of blood through the heart. Your doctor can also measure pressures and take blood samples. And, if needed, they can open blocked arteries. This can help reduce symptoms of angina. Cardiac cath is often done using a catheter inserted into an artery in the groin. During transradial cardiac cath, the catheter is inserted into an artery in the wrist. This can mean less bleeding and a faster recovery. Some people may have blockages in the groin arteries as well as in the heart arteries, making it hard to reach the heart. The transradial approach can be used to get around this problem.? What happens during a transradial cardiac cath? The procedure is done in the hospital or a surgery center. First, an IV line is put in your arm or hand to deliver fluids and medicines. You will likely be given medicine to relax you and make you drowsy. When the procedure starts: ??? You lie on an X-ray table. ??? The skin over the insertion sitein your wrist is numbed. ??? The doctor makes a tiny puncture or incision into the artery in the wrist. They then insert a catheter and threads it through the blood vessel into your heart. ? Thedoctor may inject a contrast fluid through the catheter into the arteries. This fluid makes the arteries show up better on X-rays. ??? Tests may be done to check the condition of your heart and arteries. If needed, the doctor can clear blockages in the arteries or do other repairs. ??? When the doctor is finished, they will remove the catheter and put pressure on the site to prevent bleeding. They could use a special device to reduce how long the pressure needs to be on. Or they could use an inflatable band to keep pressure on the site. Nursing staff will gradually reduce the pressure in the band after your procedure. ??? You will stay for a time to recover, and then go home. If this was anemergency procedure, you will likely stay in the hospital at least overnight. ?? What are the risks of transradial cardiac cath? These include: ??? Bleeding, bruising, infection, or blood clots ??? Damage to the radial artery that may cause injury to the hand ??? Nerve damage to the hand ??? Allergic reaction to the contrast fluid ??? Abnormal heartbeat (arrhythmia) ??? Damage to blood vessels or tissues ??? Kidney damage orfailure ??? The need for emergency heart surgery ??? Heart attack, stroke, or ?? Last Reviewed Date: 2021 ?? [employer]. All rights reserved. This information is not intended as a substitute for professional medical care. Always follow your healthcare professional's instructions. ?? * Guillermo Mathur DO: PERFORM, MODIFY, MODIFY, MODIFY, MODIFY, MODIFY, MODIFY Event Display: Discharge/Transfer Note Hospital Authored Date: [id number] Patient: ??EDWARD NAGY ? Age:??67 Years?Sex:??Male?:??1955?? Patient Information Discharge Location: Primary Care Physician: Maria Esther URIAS, Balaji Quick Admit Date/Time: 01/26/23 19:41 Discharge Disposition Discharge Disposition: Longterm Facility/Rehab??[facility] Discharge Diagnosis NSTEMI, initial episode of care (I21.4) Chronic kidney disease stage III Essential Hypertension Peripheral vascular disease Schizoaffective disorder _ Discharge Medications Aspirin (Aspirin Low Dose 81 mg oral delayed release tablet)?1?tab(s)?By Mouth?Daily Atorvastatin (atorvastatin 80 mg oral tablet)?1?tab(s)?80?Milligram?By Mouth?Daily BuPROpion (BuPROPion (Eqv-Wellbutrin SR) 150 mg/12 hours oral tablet, extended release)?1?tab(s)?150?Milligram?By Mouth?2 times a day Clopidogrel (clopidogrel 75 mg oral tablet)?1?tablet?By Mouth?Daily Fluoxetine (FLUoxetine 40 mg oral capsule)?1?capsule?40?Milligram?By Mouth?Daily Fluticasone Nasal (Flonase 50 mcg/inh nasal spray)?1?spray(s)?50?Microgram?Nares, Both?2 times a day Lamotrigine (lamotrigine 100 mg oral tablet)?100?Milligram?1?tablet?By Mouth?2 times a day Lidocaine Topical (Lidoderm 5% film)?Topically?Daily Nitroglycerin (Nitrostat 0.4 mg sublingual tablet)?1?tab(s)?0.4?Milligram?Sublingual?Every 5 minutes?as needed?Chest Pain?prn Omeprazole (omeprazole 20 mg oral enteric coated capsule)?1?capsule?20?Milligram?By Mouth?Daily?for 30?Days Quetiapine (QUEtiapine 400 mg oral tablet, extended release)?400?Milligram?1?tablet?By Mouth?Daily at bedtime Trazodone (traZODone 100 mg oral tablet)?200?Milligram?2?tablet?By Mouth?Daily atbedtime ? Quality Measures Chest Pain, AMI Quality Measures:? Medications Started None Medications Discontinued Amlodipine Isosorbide Mononitrate Metoprolol Doses Changed None Allergies Allergies ?(Active and Proposed Allergies Only) Vistaril? (Severity: Unknown severity, Onset: Unknown) Nuts? (Severity: Unknown severity, Onset: Unknown) Nicotine Patch? (Severity: Unknown severity, Onset: Unknown) Abilify? (Severity: Unknown severity, Onset: Unknown) Claritin? (Severity: Unknown severity, Onset: Unknown) Benadryl? (Severity: Unknown severity, Onset: Unknown) Clozaril? (Severity: Unknown severity, Onset: Unknown) ? Future Appointments Monday 9:50 AM EDT ?? With: Maria Esther URIAS, Balaji Quick Where: [facility] [address] [place] [address]- Status: Pending Monday 9:00 AM EST ?? Where: [facility] [address] [place] [id number]- Status: Pending Monday 10:30 AM EST ?? With: Rose HYATT, Key Han Where: [address] [place] [address]- Status: Pending Monday 4:00 PM EST ?? With: Cindy URIAS, Reagan Diaz Where: [facility] [address], [address] [place] [id number]- Status: Pending Hospital Course Edward Nagy is a 67-year-old male patient with past medical history of coronary artery disease with LAD stenting in 2010 with restenosis in 2020 which required PCI and 2 overlapping drug eluting stents (complicated by postprocedural embolic watershed strokes), essential hypertension, coronary artery disease, peripheral vascular disease (carotid artery disease, subclavian stenosis, and NADIRA),AAA, dyslipidemia, schizoaffective disorder, chronic kidney disease stage III who presented to [facility] as a transfer from [facility]. He was admitted and received a drug-eluting stent to the mid circumflex and monitored on the floor with telemetry for 3 days with normal sinus rhythm. His course was complicated by delirium and acutekidney injury likely due to contrast induced nephropathy. While on the floor, he received a slow bolus of 500 cc isotonic crystalloid with improvement in his renal function. His blood pressure remained low and his amlodipine was discontinued due to ongoing normal blood pressures (would consider restarting if BP start to rise). Metoprolol also discontinued d/t persistent bradycardia. Cardiac rehabsaw him and recommended outpatient follow up. Edward's delirium resolved and was oriented AOx3 and cleared by physical therapy to be discharged to a rehab facility for gait training. He was discharged on 01/31/23 to [facility] for an anticipated stay of less than 30 days. ?? Objective Assessment and Plan Edward Nagy is a 67-year-old male patient with past medical history of coronary artery disease with LAD stenting in 2010 with restenosis in 2020??which required PCI and 2 overlapping drug eluting stents (complicated by postprocedural embolic watershed strokes), essential hypertension, coronary artery disease, peripheral vascular disease??(carotid artery disease, subclavian stenosis, and NADIRA), AAA, dyslipidemia, schizoaffective disorder, chronic kidney disease stage III who presented to [facility] as a transfer from [facility].??He??was admitted for cardiac catheterization and is now s/p drug-eluting stent to the??mid circumflex. ?? Acute coronary syndrome- Unstable angina Coronary artery disease??s/p??Drug eluting stent to the mid circumflex Dyslipidemia Plan:?? - Atorvastatin 80 mg qDaily - Metoprolol discontinued d/t persistent bradycardia - Continue aspirin 81 mg p.o. indefinitely and clopidogrel 75 mg p.o. at least 1 year post intervention.?? -??PRN??nitroglycerin and??EKG for chest pain - Continue to monitor telemetry ?? Chronic kidney disease stage III Acute Kidney Injury??- likely prerenal 2/2 poor PO intake or SERA Output -750ml with minimal intake 600 mL in last 24 hours. Cr increased from 2.0 to 2.2 (baseline 1.4). BUN from 31??to 33. Plan: - Continue to monitor I/Os - Encourage PO intake, added 500ml LR given minimal intake - Follow up on urine analysis with Na/Cr - Monitor Cr and BUN daily - Continue renal dosing of Meds - Avoid nephrotoxins ?? Delirium??- improving Pt had altered mentation (disoriented to weekday/day of month) and frequent daytime tiredness. ABG obtained revealing low PaO2. A-a gradient elevated at 30.7 (expected A-a for age??20.5). Plan: - Continue delirium precautions: adequate light exposure during day and reorientation to person, place and time ?? Essential Hypertension - amlodipine 5mg d/c'd due overcorrection of BP ?? Leukocytosis - resolved Likely 2/2 reactive leukocytosis.??No clear evidence of infection or??steroid use. ?? Chronic,??Stable or Resolved Conditions: Peripheral vascular disease: Continue aspirin and high-dose statin. Schizoaffective disorder: Continue Wellbutrin,??quetiapine, trazodone, lamotrigine, and Fluoxetine ?? CODE STATUS: Full resuscitation DVT prophylaxis:??Enoxaparin Diet:??Cardiac Bowel regimen: MiraLAX, Senna PRN ?? Vital Signs?? Temperature: 97.8 DegF (01/31/23 09:19:00) Temperature Route: Oral (01/31/23:19:) Pulse Rate: 57 bpm (01/31/23:19:00) Respiratory Rate: 18 br/min (01/31/23:19:) Systolic Blood Pressure: 133 mm Hg (01/31/23:19:) Diastolic Blood Pressure: 73 mm Hg (01/31/23:19:00) Blood pressure sites: Arm, right (01/31/23:19:00) Mean Arterial Pressure: 93 mm Hg (01/31/23:19:00) Pulse Pressure: 60 mm Hg (01/31/23:19:00) Oxygen Saturation: 98 % (01/31/23:19:00) Mode of Delivery (Oxygen): Room air (01/31/23:19:00) Early Warning Score: 3 (01/31/23:27:26) ? . Physical Exam Constitutional: Alert, in no distress. Tired appearing. Mental Status: Oriented to person, place and time. Flat affect. Head: Normocephalic. Eyes: Pupils are equal, round and reactive to light. Extraocular muscles intact. Ear, Nose and Throat: Oropharynx clear, mucous membranes moist. Ears and nose without masses, lesions or deformities. Trachea midline. Neck: Supple, Full range of motion. Respiratory: Clear to auscultation. No wheezing, rales or rhonchi. Cardiovascular: S1 S2 regular. No murmurs, rubs or gallops. No JVD. No pitting edema. Gastrointestinal: Abdomen soft, non-tender, non-distended. Normal bowel sounds. No pulsatile mass. No hepatosplenomegaly. Genitourinary: No costovertebral angle tenderness. Neurologic: Cranial nerves II-XII grossly intact. No focal neurological deficits. Moves all extremities spontaneously. Sensation intact bilaterally. Skin: No rashes or lesions. No petechiae or purpura.?? Musculoskeletal: No cyanosis or clubbing. No gross deformities. Normal range of motion. Psychiatric: Normal mood and affect Consultants Cardiology: Dr. Arias Patient Education Titles The Benefits of Cardiac Rehabilitation?? Follow-Up Appointments Added Follow Up ?Time Frame ?Comments [facility] Cardiac Rehab?1 month?[id number] Balaji Sykeslarry Patient Instructions You presented to [facility] with??chest pain??were brought to [facility] as a transfer after you were identified to have a narrowing of the arteries (blood vessels) in your heart. You??had a procedure??where a stent was placed in your??heart ??vessels to open up the occlusion and restore blood flow. You were brought to the floor and monitored for any arrhythmia. During your stay, your labs showed that there was some slight injury to your kidneys which was likely due to the contrast used during your procedure. We gave you some fluids and your kidney function improved. You were cleared by our physical therapists to be discharged to a rehab facility. If you experience any shortness of breath, chest pain or palpitations please return to the emergency room or call 911.Please follow up with your PCP in a few weeks regarding your hospital stay. ? Guillermo Mathur, DO PGY-1 Pager #[phone] Case discussed with ??Anthony Olsen MD: PERFORM Event Display: Discharge/Transfer Note Hospital Authored Date: Attending Attestation:??I saw and examined the patient with the resident team and reviewed the chart on the day of service. ??I have discussed the case and its management??with the resident as documented in the resident note on the day of service.??I agree with the resident's note and plan as documented.?? Pt unable to be discharged as no rehab bed.?? This note to function as progress note for the day. * Jessica Gandhi RN: VERIFY, PERFORM, SIGN Event Display: Case Management Discharge Plan Authored Date: Patient: EDWARD NAGY Age: 67 years Sex: Male : 1955 Associated Diagnoses: None Author: Jessica Gandhi RN Discharge Plan Case Management Discharge Plan : Case Management Discharge Plan Data 01/31/2023 11:22 EDT Discharge Level of Care at Discharge [facility]ent[facility] facility Discharge Nursing Homes/Rehab Facilities [facility] Discharge Transportation Arranged [facility] Discharge Arranged Transport Date/Time 01/31/2023 13:00 Mode of Transportation Arranged Other Name of Agency #1 [facility] Service Categories #1 Occupational Therapy, Physical Therapy, Longterm Additional Info for D/C Instructions You are being discharged to [facility] today at 1 PM. You did not qualify for an ambulance at this time but [facility] will pick you up and bring you there. Name of Person Notified of Transfer Tim * Event Display: Hemodynamic Procedure Report Authored Date: * Kim Mcfadden RN: PERFORM, SIGN, VERIFY Event Display: Cardiac Rehab Note Authored Date: Patient: EDWARD NAGY Age: 67 years Sex: Male : 1955 Associated Diagnoses: None Author: Kim Mcfadden RN Pre-exercise Vitals Vital Signs Comment: Reviewed in [facility]. Pre-exercise Physical Examination Neurologic: alert & oriented. Activity Symptoms with Cardiac Rehab Symptoms: No exertional symptoms. Activity Ambulate: independent. Patient Education Education: Patient alone, Post procedure guidelines, Stent card reviewed. Education topic Teachback comprehension 75% Topic: Medication education, Role of exercise, Home activity guidelines/limits. Recommendation and Plan Outpatient follow up recommended: [facility]. Cardiac Rehab: Will sign off at this time. Recommendation comment: RN notified of plan. * Bogdan DECKER, Kim Fonseca: PERFORM, SIGN, VERIFY Event Display: Patient Education Handout Authored Date: Cardiac catheterization study * Event Display: Cardiac Specification Manager Report Authored Date: * Event Display: Cardiac Specification Manager Report Authored Date: Cardiac Diagnostic + PCI Report Demographics Patient Name YAKOV PISANO Gender Male [employer] Room Number M713 Height 72.05 inches Date of 1955 Weight 229.94 pounds Age 67 year(s) BSA 2.26 m2 Accession Number [id number] BMI 31.14 kg/m2 Referring Physician Golden CALDERON Date of Study 01/27/2023 Performing Physician Leonor Wagner MD Fellow Axel Bhatia DO Interventional Leonor Wagner MD Physician Procedure Procedure Type Diagnostic procedure:Coronary Angiography with [facility] PCI procedure:Coronary IVUS Miscellaneous:ACT [facility] Diagnostic Catheterization Status:Urgent [facility] Interventional Catheterization Status:Urgent Indications Indications: Unstable angina. Clinical History Admission Medications + +------+-------+ + + +---------+ !Medication !Dosage!Times !Last !Last !Administered !Comments ! ! ! !Per Day!Delivery !Delivery ! ! ! ! ! ! !Date !Time ! ! ! + +------+-------+ + + +---------+ !Aspirin (any)!81 mg !x 1 !01/27/2023 !09:18 !Yes ! ! + +------+-------+ + + +---------+ !Clopidogrel !75 mg !x 1 !01/27/2023 !09:18 !Yes ! ! + +------+-------+ + + +---------+ Clinical Evaluation Leading to Procedure - The patient's CAD presentation was assessed as: Unstable angina. - The patient's anginal syndrome during the past two weeks was assessed as: Class II according to the White Cardiovascular Society Classification System (CCS). Anti-anginal medications were prescribed during the past two weeks. The medication is: Beta Blockers. ACC Risk Factors The patient risk factors include:prior PCI on 08/27/2020;prior OH;peripheral arterial disease, obesity, cerebrovascular disease, treated hypercholesterolemia, treated hypertension, family history of premature CAD, last creatinine: 1.5 mg/dl, creatinine clearance: 71.46 ml/min, dyslipidemia, Current - Every day tobacco use, previous femoral procedure and prior OH. Additional Clinical History:This is a 67-year-old obese male patient with coronary artery disease with NIKKI to RCA (04/12/2011) now [address] FREIGHT as per cath in 2020, and NIKKI x2 to proximal LAD (08/27/2020) (procedure was complicated by stroke and MRI showing embolic watershed strokes), essential hypertension hyperlipidemia, peripheral vascular disease (carotid artery disease, subclavian stenosis, abdominal aortic aneurysm, and NADIRA), schizoaffective disorder, chronic kidney disease stage III who presents to our facility as a transfer from [facility] for chest pain. HE developed severe chest pain while grocery shopping, rated 10/10, substernal with radiation to the left arm, associated with nausea diaphoresis. Initially ECG without acute ischemic changes. He received nitroglycerin spray which relieved the chest pain. He had another episode of chest pain in the emergency room, repeat EKG showed significant ST segment depression in V4, V5, V6. Troponin remained negative. Echo pending. Procedure Data Procedure Date Date: 01/27/2023Start: 11:12End: 12:27 The procedure was explained in detail to the patient. Risks, complications and alternative treatments were reviewed. Written consent was obtained. Entry Locations - Retrograde Percutaneous access was performed through the Right Radial artery. A 6 Fr sheath was inserted. Closure Comments: 13cc. Procedure Medications - Versed (Midazolam) I.V. 1 mg. - Fentanyl I.V. 50 mcg. - Lidocaine 2% S.C. Right Wrist 3 ml. - Nitroglycerin I.A. 200 mcg. - Versed (Midazolam) I.V. 1 mg. - Fentanyl I.V. 50 mcg. - Heparin I.V. 5000 units. - Heparin I.V. 6000 units. - Versed (Midazolam) I.V. 1 mg. - Fentanyl I.V. 50 mcg. - Nitroglycerin I.C. 200 mcg. - Nitroglycerin I.C. 200 mcg. - Clopidogrel P.O. 300 mg. Sedation: My intra-service moderate sedation time was: from 1110 to 1215. Refer to procedural log for detailed chronological information. Contrast Material - Omnipaque 55 ml Diagnostic Catheters - [id number] RADIAL TIG 4.0 RADIFOCUS OPTITORQUE CATHETERwas used for: Left heart catheterization. - [id number] RADIAL TIG 4.0 RADIFOCUS OPTITORQUE CATHETERwas used for: Left coronary angiography. - A6F EBU 3.5 LAUNCHER GUIDING CATHETERwas used for: PCI. - [id number] OPTICROSS 6 HD CORONARY IMAGING CATHETERwas used for: IVUS. Fluoroscopy Time: Diagnostic: 0:00 minutes. PCI: 11:37 minutes. Total: 11:37 minutes. Fluoroscopy Dose: PCI: 48.2 mGy. Total: 48.2 mGy. Dose Area Product:PCI: 72232 mGy/cm2. Total: 39118 mGy/cm2. Procedure Narrative Patient is seen and examined in the Specification Manager. The description of the procedure and the risk and benefit including bleeding, radial spasm, contrast-induced nephropathy, OH, stroke, , angioplasty related dissection or perforation were mentioned to the patient. The patient understood and agreed to proceed with the procedure. Right radial artery access was obtained and a 6 Uzbek sheath was placed. The diagnostic angiogram was performed with Mcdermott diagnostic catheter. LVEDP was measured along with pullback gradient across aortic valve. Additional heparin was given and ACT was achieved more than 250 seconds. An EBU 3.5 guide catheter was engaged. Predilated with 2.5 mm X12 millimeter semicompliant balloon. Then we performed IVUS and measured the vessel size. We placed a 3.5 mm X12 millimeter Jayden frontier NIKKI. Post stent placement, IVUS was performed which showed slight mall apposition in the distal segment of the stent. We postdilated the distal segment with 3.5 mm X 8 mm NC balloon. The final angiographic result showed excellent stent expansion without any immediate complication. At the end of the procedure, the sheath was removed and a TR band was placed. Angiographic Findings Cardiac Arteries and Lesion Findings LMCA: Mild luminal irregularities (<30%). LAD: Mild diffuse disease (<30%).There is a previous stent on Prox LAD showing wide patency. There is a previous stent on Prox LAD Mid subsection showing wide patency. There is a previous stent on Prox LAD Mid subsection. LCx: There is a previous stent on 2nd Ob Leslie. Lesion in Dist CX: Proximal subsection.90% stenosis 5 mm length. Pre procedure BENITA III flow was noted. Good runoff was present.Culprit lesion. Lesion in 1st Ob Leslie: Proximal subsection.80% stenosis . Lesion in Mid CX: 50% stenosis . RCA: Lesion in Prox RCA: 100% stenosis .Chronic total occlusion. Comments:Thank RCA due to known [address] FREIGHT with a creatinine of 1.5 Hemodynamics Condition: Rest O2 Consumption: Estimated: 249.20Heart Rate: 54 bpm Pressures (mmHg) +-----+ + !Site !Pressure ! +-----+ + !LV !161/12 ,20 ! +-----+ + !AO !168/78 (110)! +-----+ + Shunts Oxygen Values O2 Capacity 186.32 O2 Consumption 249.2 Interventional Procedure Cardiac lesions LCx: Lesion in Dist CX: Proximal subsection.90% stenosis 5 mm length reduced to 0%. Pre procedure BENITA III flow was noted. Post Procedure BENITA III flow was present. Good runoff was present.The guidewire cross was successful.Culprit lesion. Devices used - .014 x180cm RUNTHROUGH NS GUIDEWIRE. Number of passes: 1. - 2.4gmr32is RX EUPHORA BALLOON. Diameter: 2.5 mm. Length: 12 mm. 1 inflation(s) to a max pressure of: 14 oseas. - 3.5 x 12mm JAYDEN FRONTIER RX CORONARY STENT SYSTEM. 1 inflation(s) to a max pressure of: 12 oseas. - 3.74jxf9ii RX NC EUPHORA BALLOON. Diameter: 3.5 mm. Length: 8 mm. 1 inflation(s) to a max pressure of: 12 oseas. Conclusions Diagnostic Summary 67-year-old male with history of hypertension, hyperlipidemia, coronary artery disease, peripheral vascular disease, chronic kidney disease stage III who presented to the hospital with unstable angina. LVEDP 20 m mercury. No significant pullback gradient across aortic valve. Diagnostic angiogram revealed mild LAD, 90% stenosis in the proximal subsection of distal LCx which is the culprit lesion, 50% stenosis in the mid LCx and 80% stenosis in the proximal subsection of OM1 which is a small caliber vessel. Did not engage the RCA and considering known [address] FREIGHT as well as chronic kidney disease. Considering the above finding, we decided to proceed with intervention of the distal LCx culprit lesion. Diagnostic Recommendations Intervention of the distal LCx culprit lesion. Interventional Summary Distal LCx: IVUS guided PCI of the distal LCx with 3.5 mm X12 millimeter Mckean frontier NIKKI was dilated with 3.5 mm X 8 mm NC balloon. Interventional Recommendations Continue aspirin 81 mg p.o. indefinitely and Plavix 90 mg p.o. at least 1 year post intervention. Consider prolonged DAPT if bleeding risk is not significantly high. Maximize guideline directed medical management for coronary artery disease. Follow-up at [facility] cardiology office in 6 weeks. Signatures History and physical note * Event Display: History and Physical Hospital Authored Date: Admission evaluation note * Sharif URIAS, Bernard Falcon: PERFORM, MODIFY, MODIFY, MODIFY, MODIFY Event Display: Admission Note Authored Date: [id number] Patient: ??YAKOVEDWARD ? Age:??67 Years?Sex:??Male?:??1955?? Chief Complaint/Reason for Consultation Priscila Tx- for [facility] History of Present Illness 67-year-old male patient with past medical history of coronary artery disease with LAD stenting in 2010 with restenosis in 2020??which required PCI and 2 overlapping drug eluting stents(procedure wascomplicated by postprocedural stroke and MRI showing embolic watershed strokes), essential hypertension, coronary artery disease, peripheral vascular disease??(carotid artery disease, subclavian stenosis,??abdominal aortic aneurysm, and NADIRA), dyslipidemia, schizoaffective disorder, chronic kidney disease stage III who presents to our facility as a transfer from [facility]. ??He initially presented to [facility] for evaluation of chest pain. ??Tells me that he went for grocery shopping and when he returned home, started to have??10 out of 10 pain substernal chest pain radiating to the left arm, associated with nausea diaphoresis. ??Therefore??EMS was called.?EKG without acute ischemic changes.. ??He initially was treated by nitroglycerin spray which relieved the c hest pain. ??He had another episode of chest pain in the emergency room, repeat EKG showed significant ST segment depression in V4, V5, V6. ??Troponin remained negative. ??Due to significant coronaryartery disease, case was discussed with cardiology who recommended transfer to [facility] for left heart catheterization. ??Patient was started on heparin gtt. and transferred to our facility Review of Systems Constitutional:?No weight loss, fever, chills, weakness or fatigue. Cardiovascular:No chest pain,pressure or discomfort. No palpitations or pedal edema. Respiratory:No shortness of breath, cough or sputum production. Gastrointestinal:?No anorexia, nausea, vomiting or diarrhea. No abdominal pain or blood in stool. Genitourinary: No burning micturition. No urinary frequency or incontinence. Neurologic: No headache, dizziness, syncope, unilateral weakness, ataxia, numbness or tingling in the extremities. No change in bowel or bladder control. Musculoskeletal: No muscle pain, back pain, joint pain or stiffness. Hematologic: No bleeding or bruising. Lymphatics: No enlarged lymph nodes. Psychiatric: No depression or anxiety. Endocrine: No reports of sweating. No cold or heat intolerance. No polyuria or polydipsia. All other systems were reviewed and are negative. Objective Measurements?? Height: 183 cm (01/26/23) Weight: 104.5 kg (01/26/23) Dry Weight: 107 kg (01/26/23) Body Mass Index:??31.2 kg/m2??Critical (01/26/23) ? Vital Signs?? Temperature: 98.1 DegF (01/26/23 19:57:00) Temperature Route: Temporal (01/26/23 19:57:00) Pulse Rate:??52 bpm??Low (01/26/23 19:57:00) Respiratory Rate: 20 br/min (01/26/23 19:57:00) Systolic Blood Pressure:??157 mm Hg??High (01/26/23 19:57:00) Diastolic Blood Pressure:??87 mm Hg??High (01/26/23 19:57:00) Blood pressure sites: Arm, left (01/26/23 19:57:00) Mean Arterial Pressure: 110 mm Hg (01/26/23 19:57:00) Pulse Pressure: 70 mm Hg (01/26/23 19:57:00) Early Warning Score: 0 (01/26/23 20:02:23) ? Intake/Output? No Data Available ? Physical Exam ?? Constitutional: Alert, in no acute distress. ?? Head: Normocephalic. ?? Eyes: Pupils are equal, round and reactive to light. Extraocular muscles intact. No pallor or scleral icterus ?? Ear, Nose and Throat: mucous membranes moist. Ears and nose - no obvious deformities. Trachea midline. ?? Neck: Supple, Full range of motion.No JVD or bruits. ?? Respiratory:??Clear to auscultation. No wheezing or rhonchi.??No use of accessory muscles. No tactile fremitus.? Cardiovascular:??PMI not visible. S1 S2 regular. No murmurs, rubs or gallops. ?? Gastrointestinal:??Abdomen soft, non-tender, non-distended. Normal bowel sounds. No pulsatile mass.No hepatosplenomegaly. ?? Genitourinary:??No costovertebral angle tenderness. ?? Extremities: No lower extremity pitting edema. No cyanosis or clubbing. ?? Neurologic:??AAOx3, Cranial nerves II-XII grossly intact. Speech normal, no facial droop. No focal neurological deficits. Moves all extremities spontaneously. Sensation intact bilaterally.??Flexor plantar response. ?? Skin:??No rash.? Musculoskeletal:??No gross deformities on inspection. Normal range of motion in hips, knees, ankles. ?? Heme/Lymphatics:??Palpation of neck reveals no swelling or tenderness of neck nodes.? Psychiatric: Normal mood and affect. ?? Assessment/Plan 67-year-old male patient with past medical history of coronary artery disease with LAD stenting in 2010 with restenosis in 2020??which required PCI and 2 overlapping drug eluting stents(procedure wascomplicated by postprocedural stroke and MRI showing embolic watershed strokes), essential hypertension, coronary artery disease, peripheral vascular disease??(carotid artery disease, subclavian stenosis,??abdominal aortic aneurysm, and NADIRA), dyslipidemia, schizoaffective disorder, chronic kidney disease stage III who presents to our facility as a transfer from [facility] ?? Acute coronary syndrome: Unstable angina: Coronary artery disease??status post PCI and??stenting??x2. He initially presented to??[facility] for evaluation of??typical chest pain. First EKG??without ischemic changes. Was treated with nitroglycerin,??and the pain has improved. He had a recurrence of chest pain??while he was in the emergency room, repeat EKG showed significant ST depression in V45 and 6. Troponin was negative. Case was discussed with the cardiology who recommended transfer to [facility]??for??left heart cath.?? In the setting of significant coronary artery disease history. Continue heparin GTT. Aspirin. High-dose statins. Beta-lashell Obtain A1c. Obtain lipid profile. As needed??nitroglycerin and??EKG for chest pain. Continue to monitor telemetry. N.p.o.??for left heart catheterization in the a.m. Cardiology consultation. ? Peripheral vascular disease: Continue aspirin and high-dose statin. ? Essential hypertension: Continue amlodipine 10 mg. ? Chronic kidney disease: avoid nephrotoxins, renally dose meds continue to monitor kidney functions while inpatient. ? Schizoaffective disorder: Continue Wellbutrin,??quetiapine, trazodone, lamotrigine, and Fluoxetine ?? Quality metrics: CODE STATUS: Full resuscitation. DVT prophylaxis:??On heparin GTT. ? Histories Allergies Allergies ?(Active and Proposed [...] ??VNA helps administer his medications. ??Shirley at [facility] [phone] Exercise Details:??Self assessment: Poor condition. Home/Environment Details:??Living situation: Home with assistance. Nutrition/Health Details:??Diet: Regular. Sexual Details:??Sexually involved in last 6 months: No. ??Sexual orientation: Homosexual. Substance Abuse Details:??Use: Never. Tobacco Details:??Current some day smoker Details:??Current some day smoker, Tobacco user in household: No. ??Other: pt states that he [id number] month. ? Family History Mother: CAD - Coronary artery disease; Hyperlipidemia; Hypertension Father: CAD - Coronary artery disease; Hyperlipidemia; Hypertension ? Medications Home Medications Amlodipine (amLODIPine 10 mg oral tablet)?10?Milligram?1?tablet?By Mouth?Daily Aspirin (Aspirin Low Dose 81 mg oral delayed release tablet)?1?tab(s)?By Mouth?Daily Atorvastatin (atorvastatin 80 mg oral tablet)?1?tab(s)?80?Milligram?By [...] (isosorbide mononitrate 30 mg oral tablet, extended release)?1?tab(s)?By Mouth?Daily in AM Lamotrigine (lamotrigine 100 mg oral tablet)?100?Milligram?1?tablet?By Mouth?2 times a day Lidocaine Topical (Lidoderm 5% film)?Topically?Daily Metoprolol (Metoprolol Tartrate 25 mg oral tablet)?1?tab(s)?By Mouth?2 times a day?INCREASE IN DOSE Nitroglycerin (Nitrostat 0.4 mg sublingual tablet)?1?tab(s)?0.4?Milligram?Sublingual?Every 5 minutes?as needed?Chest Pain?prn Omeprazole (omeprazole 20 mg oral enteric coated capsule)?1?capsule?20?Milligram?By Mouth?Daily?for 30?Days Quetiapine (QUEtiapine 400 mg oral tablet, extended release)?400?Milligram?1?tablet?By Mouth?Daily at bedtime Trazodone (traZODone 100 mg oral tablet)?200?Milligram?2?tablet?By Mouth?Daily atbedtime ? Results Recent Labs No labs resulted between 01/25/2023 00:00 and 01/26/2023 22:39? EKG study * Event Display: EKG Authored Date: * Event Display: ECG 12-Lead Authored Date: Please click on pdf link to open report * Event Display: ECG 12-Lead Authored Date: Ventricular Rate: 55 BPM Atrial Rate: 55 BPM P-R Interval: 164 ms QRS Duration: 80 ms Q-T Interval: 478 ms QTC Calculation(Bazett): 457 ms P Afton: 16 degrees R Afton: -27 degrees T Afton: -4 degrees Sinus bradycardia Minimal voltage criteria for LVH, may be normal variant ( R in aVL ) Inferior infarct , age undetermined Abnormal ECG When compared with ECG of 28-JAN-2023 08:28, MANUAL COMPARISON REQUIRED, DATA IS UNCONFIRMED Confirmed by CHRIS MAGUIRE MD ([id number]) on 01/28/2023 11:55:01 AM Mckittrick: CHRIS MAGUIRE MD * Event Display: ECG 12-Lead Authored Date: Please click on pdf link to open report * Event Display: ECG 12-Lead Authored Date: Ventricular Rate: 58 BPM Atrial Rate: 58 BPM P-R Interval: 166 ms QRS Duration: 76 ms Q-T Interval: 452 ms QTC Calculation(Bazett): 443 ms P Afton: 19 degrees R Afton: -29 degrees T Afton: -14 degrees Sinus bradycardia Minimal voltage criteria for LVH, may be normal variant ( R in aVL ) Inferior infarct , age undetermined Abnormal ECG When compared with ECG of 27-JAN-2023 20:01, Inferior infarct is now Present Confirmed by CHRIS MAGUIRE MD () on 01/28/2023 11:52:04 AM Mckittrick: CHRIS MAGUIRE MD * Event Display: ECG 12-Lead Authored Date: Please click on pdf link to open report * Event Display: ECG 12-Lead Authored Date: Ventricular Rate: 62 BPM Atrial Rate: 62 BPM P-R Interval: 166 ms QRS Duration: 84 ms Q-T Interval: 452 ms QTC Calculation(Bazett): 458 ms P Afton: 31 degrees R Afton: -13 degrees T Afton: -14 degrees Normal sinus rhythm Normal ECG When compared with ECG of 27-JAN-2023 12:31, No significant change was found Confirmed by CHRIS MAGUIRE MD ([id number]) on 01/28/2023 7:45:06 AM Mckittrick: CHRIS MAGUIRE MD Cardiology * Event Display: Cardiac Rhythm Strips Authored Date: Hospital Progress note * Esme Garcia RN: PERFORM, SIGN, VERIFY Event Display: Progress Note Hospital Authored Date: [id number] Patient: EDWARD NAGY Age: 67 years Sex: Male : 1955 Associated Diagnoses: None Author: Esme Garcia RN Discharge Information Functional Assessment Personal hygiene: assist. Feeding ability: assist. Standing ability: by self. Mobility assistance: ambulate, assist of 1. Chair transfer: by self. Wheelchair: assist. Elimination: last bowel movement 01/26/2023 08:31:00, bowel management pt refuses all bowel medications , incontinent bowel. Nutritional Assessment Appetite: good. Date and time of last meal 02/01/2023 08:32:00. Pain Assessment Interventions: medication. Smoking Cessation Patient has not smoked in last 12 months. Psycho-Social Assessment Affect/behavior: cooperative. Mental status: alert. Orientation: person, place. Case Management Discharge Plan : Case Management Discharge Plan Data 01/31/2023 11:22 EDT Discharge Level of Care at Discharge penitentiary facility Discharge Nursing Homes/Rehab Facilities [facility] Discharge Transportation Arranged [facility] Discharge Arranged Transport Date/Time 01/31/2023 13:00 Mode of Transportation Arranged Other Name of Agency #1 [facility] Service Categories #1 Occupational Therapy, Physical Therapy, Longterm Additional Info for D/C Instructions You are being discharged to [facility] today at 1 PM. You did not qualify for an ambulance at this time but [facility] will pick you up and bring you there. Name of Person Notified of Transfer Tim Rehabilitation Discharge : Rehab Discharge Index 01/29/2023 8:16 EDT Walker: distance >50 01/28/2023 14:28 EDT Comments on treatment indicated 67M presented to [facility] for chest pain, transferred here for cardiac cath. High fall risk. PT for strength, balance, gait, and transfers. Walker: distance 20-50 Distance pt will ambulate 75 Full chart review completed Yes Hospital course Hospital course Other findings Received in supine. Sup-sit Indep. Fair sitting posture. Sit- stand CGA to the RW, unsteady in standing requiring Min A intermittently. Pt amb with narrow NISHI, scissoring at times, unaware and unable to correct. Required Min A each step to prevent LOB... Plan of care PT Gait training, Transfer training, Therapeutic exercise, Functional Activities, Balance training * Zhao Tan: MODIFY, MODIFY, MODIFY, MODIFY, MODIFY, MODIFY, MODIFY, MODIFY, MODIFY, MODIFY,MODIFY, MODIFY, MODIFY, MODIFY, MODIFY, MODIFY, MODIFY, MODIFY, MODIFY, MODIFY, MODIFY, MODIFY, MODIFY, MODIFY, MODIFY, MODIFY, MODIFY Guillermo Mathur DO: PERFORM, MODIFY Guillermo Mathur DO: MODIFY, MODIFY Guillermo Matuhr DO: MODIFY, MODIFY Guillermo Mathur DO: MODIFY Anthony Olsen MD: MODIFY Event Display: Progress Note Hospital Authored Date: [id number] Patient: ??EDWARD NAGY ? Age:??67 Years?Sex:??Male?:??1955?? Subjective No acute overnight events. No events on telemetry.??Normal??sinus rhythm and bradycardic in the 50s.??Leukocytosis downtrended to 10.0. Cr increased from 2.0 to 2.2. This morning, pt remains somnolent and reports feeling very tired. He states that he has had difficulty with staying awake for a few days now. He reports waking up 5-6 times a night. Educated pt on importance of keeping the shades open and lights on during the day time.?? He does not know when his last bowel movement was. He reports some intermittent dyspnea. On further review of social history, pt reports living at home by himself. He has a [facility] worker who helps give him his medications every morning. He states that back in July or August his [facility] [employer] was canceled and he is unsure why. 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 Will get collateral from case management. Review of Systems Constitutional:??No weight loss, fever, chills, weakness or fatigue. Eyes:??No visual loss, blurred vision, double vision or yellow sclera ENT:??No hearing loss, sneezing, congestion, runny nose or sore throat. Respiratory:??Shortness of breath at rest. Cardiovascular:??No chest pain, chest pressure or chest discomfort. No palpitations or pedal edema. Gastrointestinal:??No anorexia, nausea, vomiting or diarrhea. No abdominal pain or blood in stool. Genitourinary:??No burning micturition. No urinary frequency or incontinence. Neurologic:??No headache, dizziness, syncope, unilateral weakness, ataxia, numbness or tingling in the extremities. No change in bowel or bladder control. Musculoskeletal:??No muscle pain, back pain, joint pain or stiffness. Hematologic/Lymphatics: No bleeding or bruising. No painful lymph nodes. Skin:??No rash or itching. Endocrine:??No reports of sweating. No cold or heat intolerance. No polyuria or polydipsia. Psychiatric:??No depression or anxiety. Allergies Allergies ?(Active and Proposed Allergies Only) Vistaril? (Severity: Unknown severity, Onset: Unknown) Nuts? (Severity: Unknown severity, Onset: Unknown) Nicotine Patch? (Severity: Unknown severity, Onset: Unknown) Abilify? (Severity: Unknown severity, Onset: Unknown) Claritin? (Severity: Unknown severity, Onset: Unknown) Benadryl? (Severity: Unknown severity, Onset: Unknown) Clozaril? (Severity: Unknown severity, Onset: Unknown) ? Past Medical History Active Problems??(22) AAA (abdominal aortic aneurysm) Bipolar [...] artery Tobacco use Tubular adenoma of colon Objective Vital Signs?? Temperature: 96.8 DegF (01/30/23 08:41:00) Temperature Route: Temporal (01/30/23 08:41:00) Pulse Rate:??53 bpm??Low (01/30/23 08:41:00) Respiratory Rate: 18 br/min (01/30/23 08:41:00) Systolic Blood Pressure: 104 mm Hg (01/30/23 08:41:00) Diastolic Blood Pressure: 62 mm Hg (01/30/23 08:41:00) Blood pressure sites: Arm, right (01/30/23 08:41:00) Mean Arterial Pressure: 76 mm Hg (01/30/23 08:41:00) Pulse Pressure: 42 mm Hg (01/30/23 08:41:00) Oxygen Saturation: 97 % (01/30/23 08:41:00) Mode of Delivery (Oxygen): Room air (01/30/23 08:41:00) Early Warning Score: 2 (01/30/23 08:59:11) ? Intake/Output? 01/26 19:41 01/30 07:00 01/29 07:00 01/28 07:00 01/27 07:00 ?? 01/30 09:11 01/30 09:11 01/30 06:59 01/29 06:59 01/28 06:59 Intake ? 2658.6 ?0 ?600 ?993 ?687.8 Output ? 5050 ?0 ? 1350 ? 1150 ? 1750 Net Total ?-2391.4 ?0 ? -750 ? -157 ?-1062.2 ? Urine Count ?3 ?0 ?2 ?0 ?1 ? Physical Exam Constitutional: Alert, in no distress. Tired appearing. Mental Status: Oriented to person, place and time. Flat affect. Head: Normocephalic. Eyes: Pupils are equal, round and reactive to light. Extraocular muscles intact. Ear, Nose and Throat: Oropharynx clear, mucous membranes moist. Ears and nose without masses, lesions or deformities. Trachea midline. Neck: Supple, Full range of motion. Respiratory: Clear to auscultation. No wheezing, rales or rhonchi. Cardiovascular: S1 S2 regular. No murmurs, rubs or gallops. No JVD. No pitting edema. Gastrointestinal: Abdomen soft, non-tender, non-distended. Normal bowel sounds. No pulsatile mass. No hepatosplenomegaly. Genitourinary: No costovertebral angle tenderness. Neurologic: Cranial nerves II-XII grossly intact. No focal neurological deficits. Moves all extremities spontaneously. Sensation intact bilaterally. Skin: No rashes or lesions. No petechiae or purpura.?? Musculoskeletal: No cyanosis or clubbing. No gross deformities. Normal range of motion. Psychiatric: Normal mood and affect _ Inpatient Medications Medications (24) Active SCHEDULED: (14) Aspirin 81 mg EC Tablet (aspirin 81 mg oral delayed release tablet) ??81 mg, By Mouth, Daily Atorvastatin 80 mg Tablet (atorvastatin 80 mg oral tablet) ??80 mg, By Mouth, Daily BuPROPion XL 150 mg Tablet (Wellbutrin XL Tablet) ??150 mg, By Mouth, 2 times a day Clopidogrel 75 mg Tablet (clopidogrel 75 mg oral tablet) ??75 mg, By Mouth, Daily Enoxaparin 40 mg Inj (Enoxaparin Inj) ??40 mg 0.4 mL, Subcutaneous Injection, Daily Fluoxetine 20 mg Capsule (FLUoxetine 20 mg oral capsule) ??40 mg, By Mouth, Daily LamoTRIGINE 100 mg Tablet (lamotrigine 100 mg oral tablet) ??100 mg, By Mouth, 2 times a day Lidocaine 5% Topical Patch (Lidocaine 5% Patch) ??1 each, Topically, Daily Metoprolol 25mg Tablet (metoprolol 25 mg oral tablet) ??25 mg, By Mouth, 2 times a day NaCl 0.9% Flush 3ml (NaCL 0.9% Flush) ??3 mL, IV Push, Every 8 hours Nitroglycerin 2% Oint UD (Nitroglycerin 2% Topical) ??1 inches, Topically, 2 times a day Quetiapine 400mg XR Tablet (QUEtiapine 400 mg oral tablet, extended release) ??400 mg, By Mouth, Daily at bedtime Remove Patch (Remove Lidocaine Patch) ??1 each, Topically, Daily at bedtime Trazodone 50 mg Tablet (traZODone 50 mg oral tablet) ??200 mg, By Mouth, Daily at bedtime CONTINUOUS: (0) PRN: (10) Acetaminophen 325 mg Tablet (Acetaminophen Tablet) ??650 mg, By Mouth, Every 4 hours Al hydroxide/Mg hydroxide/simethicone 200 mg-200 mg-20 mg/5 mL Susp UD (Maalox Plus Liquid) ??15 mL, By Mouth, 4 times a day Dextromethorphan-Guaifenesin 20 mg-200 mg/10 mL Liqu UD (Robitussin DM Liquid) ??10 mL, By Mouth, Every 4 hours Docusate Sodium 100 mg Capsule (Docusate Sodium Capsule) ??100 mg 1 capsule, By Mouth, 2 times a day Melatonin 3 mg Tablet (Melatonin Tablet) ??3 mg, By Mouth, Daily at bedtime NaCl 0.9% Flush 3ml (NaCL 0.9% Flush) ??3 mL, IV Push, Every 8 hours Nitroglycerin 0.4 mg Sublingual Tablet (Nitrostat 0.4 mg sublingual tablet) ??0.4 mg, Sublingual, Every 5 minutes Polyethylene Glycol 17 Gm Powder (MiraLax Powder) ??17 Gm 1 pack/packet, By Mouth, Daily Senna Tablet ??8.6 mg 1 tablet, By Mouth, 2 times a day Simethicone 80 mg Chewable Tablet (Simethicone Tablet) ??80 mg, Chew, 3 times a day ? Results CBC, CBC w/Diff?? CBC?? WBC: 10 k/mm3 (:) RBC:??4.34 m/mm3??Low (:) Hct:??39.6 %??Low (:) RDW-SD: 45.8 femtoliters (:) Nucleated RBC (Automated): 0 #/100 WBC'S (:) Abs. NRBC: 0 k/mm3 (:) ? BMP, Mg, and Phos Anion Gap: 11 (:) Bicarbonate Level: 22 mmol/L (:23) BUN:??33 mg/dL??High (07:23) Calcium: 9 mg/dL (:23) Chloride: 103 mmol/L (:23) Creatinine-Blood:??2.2 mg/dL??High (07:23) Estimated GFR Creatinine: 33 ML/MIN/1.73 M2 (07:23) Glucose Level: 96 mg/dL (07:23) Potassium: 4.3 mmol/L (:23) Sodium: 136 mmol/L (:23) ?? Assessment/Plan Edward Yakov is a 67-year-old male patient with past medical history of coronary artery disease with LAD stenting in 2010 with restenosis in 2020??which required PCI and 2 overlapping drug eluting stents (complicated by postprocedural embolic watershed strokes), essential hypertension, coronary artery disease, peripheral vascular disease??(carotid artery disease, subclavian stenosis, and NADIRA), AAA, dyslipidemia, schizoaffective disorder, chronic kidney disease stage III who presented to [facility] [place] as a transfer from [facility] for Unstable Angina.??He??was admitted for cardiac catheterization and is now s/p drug-eluting stent to the??mid circumflex. ?? Acute coronary syndrome- Unstable angina Coronary artery disease??s/p??Drug eluting stent to the mid circumflex Dyslipidemia Plan:?? - Atorvastatin 80 mg qDaily - Metoprolol 10mg q12hrs with holding parameters for bradycardia - Continue aspirin 81 mg p.o. indefinitely and clopidogrel 90 mg p.o. at least 1 year post intervention.?? -??PRN??nitroglycerin and??EKG for chest pain - Continue to monitor telemetry - Cardiology following, appreciate recommendations ?? Chronic kidney disease stage III Acute Kidney Injury??- likely prerenal 2/2 poor PO intake or SERA Output -750ml with minimal intake 600 mL in last 24 hours. Cr increased from 2.0 to 2.2 (baseline 1.4). BUN from 31??to 33. Plan: - Continue to monitor I/Os - Encourage PO intake, added 500ml LR given minimal intake - Follow up on urine analysis with Na/Cr - Monitor Cr and BUN daily - Continue renal dosing of Meds - Avoid nephrotoxins ?? Delirium??- improving Pt had altered mentation (disoriented to weekday/day of month) and frequent daytime tiredness. ABG obtained revealing low PaO2. A-a gradient elevated at 30.7 (expected A-a for age??20.5). Plan: - Continue delirium precautions: adequate light exposure during day and reorientation to person, place and time ?? Essential Hypertension - amlodipine 5mg d/c'd due overcorrection of BP ?? Leukocytosis - resolved Likely 2/2 reactive leukocytosis.??No clear evidence of infection or??steroid use. ?? Chronic,??Stable or Resolved Conditions: Peripheral vascular disease: Continue aspirin and high-dose statin. Schizoaffective disorder: Continue Wellbutrin,??quetiapine, trazodone, lamotrigine, and Fluoxetine ?? CODE STATUS: Full resuscitation DVT prophylaxis:??Enoxaparin Diet:??Cardiac Bowel regimen: MiraLAX, Senna PRN ?? Discharge Planning:?? - Follow-up at [facility] cardiology office in 6 weeks - Discharge to home without services sometime this week ? Case and plan discussed with hospitalist attending, ??Pretty ?? Patient care and documentation assisted by Zhao Tan, MS3 ? * Anthony Olsen MD: PERFORM Event Display: Progress Note Hospital Authored Date: Attending Attestation: This note was completed with the aid of a medical student and reviewed by the resident. ??I personally performed all components of the visit independently or in the presence ofthe medical student and/or resident including the history of present illness, examination and medical decision making. ??The note has been verified for accuracy and redocumented as needed.?? Pt fullyalert at time of my evaluation in afternoon.?? He was not somnolent or sleepy.?? Answering my questions appropriately.?? Hold diuretics and encourage po fluid intake.?? He has not been eating and drinking ??well.?? Giving 500 cc isotonic crystalloid slowly as hopeful will improve renal perfusion. * Karo Dumont MD: PERFORM, MODIFY, MODIFY Event Display: Progress Note Hospital Authored Date: Patient: ??EDWARD NAGY ? Age:??67 Years?Sex:??Male?:??1955?? Subjective no chest pains, no shortness of breath but drowsy. Sleepy.?? Engages in conversation but falls asleep. no nausea, vomiting, no chills or fevers. Review of Systems see above Objective Vital Signs?? Temperature: 98.7 DegF (01/29/23 14:39:00) Temperature Route: Temporal (01/29/23 14:39:00) Pulse Rate: 56 bpm (01/29/23 14:39:00) Respiratory Rate: 18 br/min (01/29/23 14:39:00) Systolic Blood Pressure: 95 mm Hg (01/29/23 14:39:00) Diastolic Blood Pressure: 80 mm Hg (01/29/23 14:39:00) Blood pressure sites: Arm, left (01/29/23 14:39:00) Mean Arterial Pressure: 85 mm Hg (01/29/23 14:39:00) Pulse Pressure: 15 mm Hg (01/29/23 14:39:00) Oxygen Saturation: 95 % (01/29/23 14:39:00) Mode of Delivery (Oxygen): Room air (01/29/23 14:39:00) Early Warning Score: 3 (01/29/23 14:40:06) ? Intake/Output? 01/26 19:41 01/29 07:00 01/28 07:00 01/27 07:00 01/26 07:00 ?? 01/29 16:48 01/29 16:48 01/29 06:59 01/28 06:59 01/27 06:59 Intake ? 2298.6 ?240 ?993 ?687.8 ?377.8 Output ? 3700 ?0 ? 1150 ? 1750 ?800 Net Total ?-1401.4 ?240 ? -157 ?-1062.2 ? -422.2 ? Urine Count ?1 ?0 ?0 ?1 ?0 ? Physical Exam General: Patient in no acute distress?? Respiratory: bilateral equal air entry, clear to auscultation; Adequate respiratory rate and efforton room air.?? CVS: regular rate and rhythm, S1 and S2 present, no murmurs, rubs or gallops. No JVD.?? Abdomen: soft, non tender, non distended, bowel sounds present.??tenderness on palpation. no rebound tenderness. ?? Extremities: no cyanosis, pulses present and equal bilaterally. . No edema noted b/l.?? Results Recent Labs BLOOD COUNT & DIFF WBC 10.0 k/mm3 ()?? 01/29/2023 08:16 RBC 4.41 m/mm3 (Low)?? 01/29/2023 08:16 Hgb 13.3 Gm/dL (Low)?? 01/29/2023 08:16 Hct 40.4 % (Low)?? 01/29/2023 08:16 MCV 91.6 femtoliters ()?? 01/29/2023 08:16 MCH 30.2 pg ()?? 01/29/2023 08:16 MCHC 32.9 g/dL (Low)?? 01/29/2023 08:16 Platelet Count 217 k/mm3 ()?? 01/29/2023 08:16 RDW-SD 46.0 femtoliters ()?? 01/29/2023 08:16 MPV 10.3 femtoliters ()?? 01/29/2023 08:16 Nucleated RBC (Automated) 0.0 #/100 WBC'S ()?? 01/29/2023 08:16 Abs. NRBC 0.0 k/mm3 ()?? 01/29/2023 08:16 Abs. Neut 6.7 k/mm3 ()?? 01/29/2023 08:16 Abs. Lymph 1.8 k/mm3 ()?? 01/29/2023 08:16 Abs. Long 0.9 k/mm3 ()?? 01/29/2023 08:16 Abs. Eo 0.5 k/mm3 (High)?? 01/29/2023 08:16 Abs. Baso 0.1 k/mm3 ()?? 01/29/2023 08:16 Neut % 66.9 % ()?? 01/29/2023 08:16 Lymph % 18.1 % ()?? 01/29/2023 08:16 Long % 8.8 % ()?? 01/29/2023 08:16 Eos % 5.2 % ()?? 01/29/2023 08:16 Baso % 0.7 % ()?? 01/29/2023 08:16 Imm Gran 0.3 % ()?? 01/29/2023 08:16 Abs. Imm Gran 0.0 k/mm3 ()?? 01/29/2023 08:16 ?? BLOOD GAS pH 7.39 ()?? 01/29/2023 10:14 pCO2 40 mm Hg ()?? 01/29/2023 10:14 pO2 69 mm Hg (Low)?? 01/29/2023 10:14 Bicarbonate, Estimated 24 mmol/L ()?? 01/29/2023 10:14 Specimen Type - Blood Gas ARTERIAL ()?? 01/29/2023 10:14 Percent O2 (FIO2) 21 ()?? 01/29/2023 10:14 ?? CHEM GENERAL Sodium 136 mmol/L ()?? 01/29/2023 08:16 Potassium 4.3 mmol/L ()?? 01/29/2023 08:16 Chloride 103 mmol/L ()?? 01/29/2023 08:16 Bicarbonate Level 22 mmol/L ()?? 01/29/2023 08:16 Anion Gap 11 ()?? 01/29/2023 08:16 Glucose Level 101 mg/dL (High)?? 01/29/2023 08:16 BUN 31 mg/dL (High)?? 01/29/2023 08:16 Creatinine-Blood 2.0 mg/dL (High)?? 01/29/2023 08:16 Estimated GFR Creatinine 35 ML/MIN/1.73 M2 ()?? 01/29/2023 08:16 Calcium 9.0 mg/dL ()?? 01/29/2023 08:16 Magnesium 2.1 mg/dL ()?? 01/29/2023 08:16 ?? URINE OTHER Est Creatinine Clearance 39.93 mL/min ()?? 01/29/2023 09:13 ? Abnormal Labs ?? BLOOD COUNT & DIFF ??Abs. Eo ??0.5 k/mm3 (High) ??01/29/2023 08:16 ??Abs. NRBC ??0.0 k/mm3 () ??01/29/2023 08:16 ??Abs. Imm Gran ??0.0 k/mm3 () ??01/29/2023 08:16 ??Hct ??40.4 % (Low) ??01/29/2023 08:16 ??Hgb ??13.3 Gm/dL (Low) ??01/29/2023 08:16 ??Imm Gran ??0.3 % () ??01/29/2023 08:16 ??MCHC ??32.9 g/dL (Low) ??01/29/2023 08:16 ??Nucleated RBC (Automated) ??0.0 #/100 WBC'S () ??01/29/2023 08:16 ??RBC ??4.41 m/mm3 (Low) ??01/29/2023 08:16 ??RDW-SD ??46.0 femtoliters () ??01/29/2023 08:16 ? BLOOD GAS ??Percent O2 (FIO2) ??21 () ??01/29/2023 10:14 ??Specimen Type - Blood Gas ??ARTERIAL () ??01/29/2023 10:14 ??pO2 ??69 mm Hg (Low) ??01/29/2023 10:14 ? CHEM GENERAL ??BUN ??31 mg/dL (High) ??01/29/2023 08:16 ??Creatinine-Blood ??2.0 mg/dL (High) ??01/29/2023 08:16 ??Estimated GFR Creatinine ??35 ML/MIN/1.73 M2 () ??01/29/2023 08:16 ??Glucose Level ??101 mg/dL (High) ??01/29/2023 08:16 ? Note: Critical results are displayed in red. ? Blood Glucose Trend Glucose Level:??101 mg/dL??High (01/29/23 08:16:00) ? CBC, CBC w/Diff?? CBC?? Differential?? WBC: 10 k/mm3 (08:16) Abs. Neut: 6.7 k/mm3 (08:16) RBC:??4.41 m/mm3??Low (08:16) Abs. Lymph: 1.8 k/mm3 (08:16) Hct:??40.4 %??Low (08:16) Abs. Long: 0.9 k/mm3 (08:16) RDW-SD: 46 femtoliters (08:16) Abs. Eo:??0.5 k/mm3??High (08:16) Nucleated RBC (Automated): 0 #/100 WBC'S (08:16) Abs. Baso: 0.1 k/mm3 (08:16) Abs. NRBC: 0 k/mm3 (08:16) Neut %: 66.9 % (08:16) ?? Lymph %: 18.1 % (08:16) ?? Long %: 8.8 % (08:16) ?? Eos %: 5.2 % (08:16) ?? Baso %: 0.7 % (08:16) ?? Imm Gran: 0.3 % (08:16) ?? Abs. Imm Gran: 0 k/mm3 (08:16) ? BMP, Mg, and Phos Anion Gap: 11 (08:16) Bicarbonate Level: 22 mmol/L (08:16) BUN:??31 mg/dL??High (08:16) Calcium: 9 mg/dL (08:16) Chloride: 103 mmol/L (08:16) Creatinine-Blood:??2 mg/dL??High (08:16) Estimated GFR Creatinine: 35 ML/MIN/1.73 M2 (08:16) Glucose Level:??101 mg/dL??High (08:16) Magnesium: 2.1 mg/dL (08:16) Potassium: 4.3 mmol/L (08:16) Sodium: 136 mmol/L (08:16) ?? Coagulation Profile?? No qualifying data available. ?? LFT?? No qualifying data available. ?? Urinalysis Est Creatinine Clearance: 39.93 mL/min (09:13) ? Blood Gases pH: 7.39 (10:14) pCO2: 40 mm Hg (10:14) pO2:??69 mm Hg??Low (10:14) Bicarbonate, Estimated: 24 mmol/L (10:14) Specimen Type - Blood Gas: ARTERIAL (10:14) Percent O2 (FIO2): 21 (10:14) ?? Uric/LDH?? No qualifying data available. ?? Assessment/Plan 67-year-old male patient with past medical history of coronary artery disease with LAD stenting in 2010 with restenosis in 2020??which required PCI and 2 overlapping drug eluting stents(procedure wascomplicated by postprocedural stroke and MRI showing embolic watershed strokes), essential hypertension, coronary artery disease, peripheral vascular disease??(carotid artery disease, subclavian stenosis,??abdominal aortic aneurysm, and NADIRA), dyslipidemia, schizoaffective disorder, chronic kidney disease stage III who presents to our facility as a transfer from [facility] for possibleUnstable Angina and is admitted to undergo a cardiac catheterization. Now pt is s/p drug- elituing stent to the??mid circumflex. ?? Acute coronary syndrome- Unstable angina Coronary artery disease??status post PCI and??stenting??x2. S/P Drug eluciting stent to the mid circumflex. Dyslipidemia- LDL 118 Plan:?? High-dose statin Beta-lashell Continue aspirin 81 mg p.o. indefinitely and Plavix 90 mg p.o. at least 1year post intervention.?? Maximize guideline directed medical management for coronary artery disease as tolerated Follow-up at [facility] cardiology office in 6 weeks. As needed??nitroglycerin and??EKG for chest pain. Continue to monitor telemetry. Cardiology following. - decrease amlodipine to 5 mg QD ?? AMS - resolved Elevated white count- Resolved??- possibly reactive. no clear evidence of infection. no steroid use. ABG obtained revealing low PaO2 but saturating well. Plan: - monitor patient for signs of infection ? Chronic,??Stable or Resolved Conditions: Peripheral vascular disease: Continue aspirin and high-dose statin. Chronic kidney disease: avoid nephrotoxins, renally dose meds. continue to monitor kidney functionswhile inpatient. Schizoaffective disorder: Continue Wellbutrin,??quetiapine, trazodone, lamotrigine, and Fluoxetine ?? Quality metrics: CODE STATUS: Full resuscitation. DVT prophylaxis:??Enoxaparin Diet??Cardiac ?? Patient case and plan discussed with Dr. Katarina Dumont MD?? Internal Medicine PGY-1 Pager:??[phone]? Discharge Planning:?Possible discharge tomorrow if mental status is good. ?? * Reagan Bray DO: PERFORM Event Display: Progress Note Hospital Authored Date: ATTENDING ADDENDUM I have seen and examined the patient independently and confirmed findings in resident physician note patient seen and examined on 01/29 delirium resolved some WRF by labs . unclear if true BRENNA- recheck tomorrow ?? Consult note * Mary Ho: PERFORM Event Display: Consultation Note Authored Date: Patient: ??EDWARD NAGY ? Age:??67 Years?Sex:??Male?:??1955?? Chief Complaint/Reason for Consultation Chest pain History of Present Illness Patient is a 67-year-old male with past medical history of CAD status post LAD stent in 2010 with repeat stenting in 2020.?? At the time of his catheterization in 2020, it showed very in-stent stenosis of his prior LAD stent and chronic RCA total occlusion.?? He underwent successful repeat angioplasty of the LAD with 2 overlapping drug-eluting stents, which was a complex procedure.?? The procedure was complicated by CVA and MRI showed embolic watershed strokes.?? He also has a history of hypertension, peripheral vascular disease, dyslipidemia, CKD he transferred to [facility] withcomplaints of chest discomfort.?? There is radiation to his left arm with associated nausea and diaphoresis.?? His discomfort was resolved with nitroglycerin spray given by EMS.?? He had another episode of chest pain in the emergency department at [facility] and per report, EKG showed ST depression in V4 through V6.?? He was transferred to [facility] on heparin drip for cardiac catheterization.?? The outside records are otherwise not available to me. ?? Laboratory data otherwise obtained here at [facility] showed hemoglobin of 12.8, hematocrit 39.3 WBC 10.2, platelets 218, sodium 138, potassium 4.2 BUN 20, creatinine 1.4, high-sensitivity.?? Troponin 10, LDL 118. He had a normal regadenason nuclear stress test in August 2022. Echo from August 2020 showed EF 65-75% with no WMAs. LV wall thickness was moderately increased. ?? At the bedside today, patient reports mild chest discomfort at rest.?? He reports it is nowhere near the level that it was in the emergency department. He has some??mild dyspnea.?? He denies any palpitations, edema.?? He denies any other instances of chest pain prior to this event. Review of Systems +resting chest pain, mild dyspnea. Negative for palpitations, edema, pnd, orthopnea. Objective Vital Signs?? Temperature: 98.3 DegF (01/27/23 07:34:00) Temperature Route: Temporal (01/27/23:34:00) Pulse Rate:??53 bpm??Low (01/27/23:34:00) Respiratory Rate: 18 br/min (01/27/23 07:34:00) Systolic Blood Pressure: 116 mm Hg (01/27/23 09:18:00) Diastolic Blood Pressure: 82 mm Hg (01/27/23 09:18:00) Blood pressure sites: Arm, right (01/27/23:34:00) Mean Arterial Pressure: 93 mm Hg (01/27/23:34:00) Pulse Pressure: 34 mm Hg (01/27/23 07:34:00) Oxygen Saturation: 100 % (01/27/23:34:00) Liters per Minute: 1 L/min (01/27/23 07:34:00) Mode of Delivery (Oxygen): Nasal cannula (01/27/23 07:34:00) Early Warning Score: 0 (01/27/23 10:13:39) ? Intake/Output? 01/26 19:41 01/27 07:00 01/26 07:00 01/25 07:00 01/24 07:00 ?? 01/27 11:26 01/27 11:26 01/27 06:59 01/26 06:59 01/25 06:59 Intake ?405.6 ? 27.8 ?377.8 ?0 ?0 Output ? 1300 ?500 ?800 ?0 ?0 Net Total ? -894.4 ? -472.2 ? -422.2 ?0 ?0 ? Physical Exam NEURO: AAOx3, no focal deficits, moving all extremities spontaneously HEENT: Moist mucous membranes, head atraumatic, pupils equal/round RESPIRATORY: Clear to auscultation bilaterally. No wheezes, rales, or rhonchi. CARDIOVASCULAR: RRR, S1S2, no murmurs/rubs/gallops ABDOMEN: Non-distended, +BS, soft, NTTP EXTREMITIES: No LE edema, erythema, or skin changes SKIN: Warm, dry, well-perfused Assessment/Plan ??Pt is a 67 y/o male with hx of CKD, htn, cad, who presented to [facility] with chest pain and transferred to [facility] [place] for unstable angina. ?? 1. Unstable angina Pt still having mild chest pain at rest. Asked RN to place new nitro paste, continue heparin. Spoketo Dr. Wagner and pt will go to the computer lab aide next case. ?? 2. HTN Controlled on norvasc and metoprolol. ? Plan discussed and pt seen/examined with Dr. Arias Histories Allergies Allergies ?(Active and Proposed Allergies [...] ??[facility] helps administer his medications. ??Shirley at [facility] [phone] Exercise Details:??Self assessment: Poor condition. Home/Environment Details:??Living situation: Home with assistance. Nutrition/Health Details:??Diet: Regular. Sexual Details:??Sexually involved in last 6 months: No. ??Sexual orientation: Homosexual. Substance Abuse Details:??Use: Never. Tobacco Details:??Current some day smoker Details:??Current some day smoker, Tobacco user in household: No. ??Other: pt states that he [id number] month. ? Family History Mother: CAD - Coronary artery disease; Hyperlipidemia; Hypertension Father: CAD - Coronary artery disease; Hyperlipidemia; Hypertension ? Medications Home Medications Amlodipine (amLODIPine 10 mg oral tablet)?10?Milligram?1?tablet?By Mouth?Daily Aspirin (Aspirin Low Dose 81 mg oral delayed release tablet)?1?tab(s)?By Mouth?Daily Atorvastatin (atorvastatin 80 mg oral tablet)?1?tab(s)?80?Milligram?By [...] (isosorbide mononitrate 30 mg oral tablet, extended release)?1?tab(s)?By Mouth?Daily in AM Lamotrigine (lamotrigine 100 mg oral tablet)?100?Milligram?1?tablet?By Mouth?2 times a day Lidocaine Topical (Lidoderm 5% film)?Topically?Daily Metoprolol (Metoprolol Tartrate 25 mg oral tablet)?1?tab(s)?By Mouth?2 times a day?INCREASE IN DOSE Nitroglycerin (Nitrostat 0.4 mg sublingual tablet)?1?tab(s)?0.4?Milligram?Sublingual?Every 5 minutes?as needed?Chest Pain?prn Omeprazole (omeprazole 20 mg oral enteric coated capsule)?1?capsule?20?Milligram?By Mouth?Daily?for 30?Days Quetiapine (QUEtiapine 400 mg oral tablet, extended release)?400?Milligram?1?tablet?By Mouth?Daily at bedtime Trazodone (traZODone 100 mg oral tablet)?200?Milligram?2?tablet?By Mouth?Daily atbedtime ? Inpatient Medications Medications (25) Active SCHEDULED: (13) Amlodipine 10 mg Tablet (amLODIPine 10 mg oral tablet) ??10 mg, By Mouth, Daily Aspirin 81 mg EC Tablet (aspirin 81 mg oral delayed release tablet) ??81 mg, By Mouth, Daily Atorvastatin 80 mg Tablet (atorvastatin 80 mg oral tablet) ??80 mg, By Mouth, Daily BuPROPion XL 150 mg Tablet (Wellbutrin XL Tablet) ??150 mg, By Mouth, 2 times a day Clopidogrel 75 mg Tablet (clopidogrel 75 mg oral tablet) ??75 mg, By Mouth, Daily Fluoxetine 20 mg Capsule (FLUoxetine 20 mg oral capsule) ??40 mg, By Mouth, Daily Influenza Quad Adult High Dose (> 65yr) Fluzone 0.7mL (Influenza, Quad High Dose Vaccine (Fluzone High Dose)) ??0.7 mL, Intramuscular, Once LamoTRIGINE 100 mg Tablet (lamotrigine 100 mg oral tablet) ??100 mg, By Mouth, 2 times a day Metoprolol 25mg Tablet (metoprolol 25 mg oral tablet) ??25 mg, By Mouth, 2 times a day NaCl 0.9% Flush 3ml (NaCL 0.9% Flush) ??3 mL, IV Push, Every 8 hours Nitroglycerin 2% Oint UD (Nitroglycerin 2% Topical) ??1 inches, Topically, 2 times a day Quetiapine 400mg XR Tablet (QUEtiapine 400 mg oral tablet, extended release) ??400 mg, By Mouth, Daily at bedtime Trazodone 50 mg Tablet (traZODone 50 mg oral tablet) ??200 mg, By Mouth, Daily at bedtime CONTINUOUS: (1) Heparin 25,000 units / 250 mL D5W premix 25,000 units [13 units/kg/hr] + D5%W Premixed IV 250 mL (Heparin 25,000 units in 250 mL Premix 25,000 units [13 units/kg/hr] + D5%W Premixed IV 250 mL) ??250 mL, IV Infusion, 13.91 mL/hr PRN: (11) Acetaminophen 325 mg Tablet (Acetaminophen Tablet) ??650 mg, By Mouth, Every 4 hours Dextromethorphan-Guaifenesin 20 mg-200 mg/10 mL Liqu UD (Robitussin DM Liquid) ??10 mL, By Mouth, Every 4 hours Docusate Sodium 100 mg Capsule (Docusate Sodium Capsule) ??100 mg 1 capsule, By Mouth, 2 times a day Heparin 5000 units/mL Inj (1 mL) (Heparin Inj) ??6,500 units 1.3 mL, IV Push, Every 6 hours Heparin 5000 units/mL Inj (1 mL) (Heparin Inj) ??3,000 units 0.6 mL, IV Push, Every 6 hours Melatonin 3 mg Tablet (Melatonin Tablet) ??3 mg, By Mouth, Daily at bedtime NaCl 0.9% Flush 3ml (NaCL 0.9% Flush) ??3 mL, IV Push, Every 8 hours Nitroglycerin 0.4 mg Sublingual Tablet (Nitrostat 0.4 mg sublingual tablet) ??0.4 mg, Sublingual, Every 5 minutes Polyethylene Glycol 17 Gm Powder (MiraLax Powder) ??17 Gm 1 pack/packet, By Mouth, Daily Senna Tablet ??8.6 mg 1 tablet, By Mouth, 2 times a day Simethicone 80 mg Chewable Tablet (Simethicone Tablet) ??80 mg, Chew, 3 times a day ? Results CBC, CBC w/Diff?? CBC?? WBC: 9.8 k/mm3 (07:06) RBC:??4.58 m/mm3??Low (07:06) Hct: 41.6 % (07:06) RDW-SD: 45.4 femtoliters (07:06) Nucleated RBC (Automated): 0 #/100 WBC'S (07:06) Abs. NRBC: 0 k/mm3 (07:06) ? BMP, Mg, and Phos Anion Gap: 10 (08:43) Bicarbonate Level: 23 mmol/L (08:43) BUN: 20 mg/dL (08:43) Calcium: 8.8 mg/dL (08:43) Chloride: 105 mmol/L (08:43) Creatinine-Blood:??1.5 mg/dL??High (08:43) Estimated GFR Creatinine: 53 ML/MIN/1.73 M2 (08:43) Glucose Level:??103 mg/dL??High (08:43) Magnesium: 2 mg/dL (07:) Potassium: 4.3 mmol/L (08:43) Sodium: 138 mmol/L (08:43) ?? Coagulation Profile APTT:??99.5 seconds??Critical (08:43) ?? LFT Albumin: 3.6 Gm/dL (07:06) Alkaline Phosphatase: 109 units/L (07:06) ALT (SGPT): 17 units/L (07:06) AST (SGOT): 19 units/L (07:06) Bilirubin, Total: 0.5 mg/dL (07:06) ?? Urinalysis Est Creatinine Clearance: 53.24 mL/min (10:13) Est Creatinine Clearance: 57.05 mL/min (08:35) ? Cardiology Labs High Sensitivity Troponin (HSTnT): 10 ng/L (01/27/23 07:06:00) Lipids: Cholesterol: 180 mg/dL (01/27/23 07:06:00) Triglycerides: 123 mg/dL (01/27/23 07:06:00) HDL Cholesterol:??37 mg/dL??Low (01/27/23 07:06:00) LDL Cholesterol: 118 mg/dL (01/27/23 07:06:00) Non HDL Cholesterol: 143 mg/dL (01/27/23 07:06:00) ?? Blood Gases?? No qualifying data available. ?? * Manisha Arias MD: PERFORM Event Display: Consultation Note Authored Date: I have seen and examined the patient, reviewed patient's history, labs, images??and tests, discussed assessment and treatment plan with rounding ROMEL. ??I agree with the recommendation as above.??I have made assessment and treatment plan in??its??entirety. ?? 67 yo M with PMH of CAD, PCI, presented with unstable angina. He is on heparin drip and nitro topical but still having mild chest discomfort. His cardiac and other exam unremarkable. Will change to new nitro paste and increase dose. Obtain EKG and lab. Will??send him to??computer lab aide KUN. Patient Care team information Care Team Personnel Name: Wild Woods RN Position: [facility] ED RN W/OE and Tasks Member Role: Primary Care Nurse Name: Emse Garcia RN Position: [facility] RN Member Role: Primary Care Nurse Name: Erich Dias RN Position: [facility] RN Member Role: Primary Care Nurse Name: Camila Vazquez RN Position: [facility] RN Member Role: Primary Care Nurse Name: Taylor Beck RN Position: [facility] RN Member Role: Primary Care Nurse Name: Amanda Garibay RN Position: [facility] RN Member Role: Primary Care Nurse Name: Mary Roberson RN Position: [facility] RN Member Role: Primary Care Nurse Name: Tomas Stauffer RN Position: [facility] RN Member Role: Primary Care Nurse Name: Balaji Mayo MD Position: [facility] Physician - Primary Care Member Role: PCP Address: Address: [address] [place] [address]- Name: Lashell Mcclelland RN Position: [facility] RN Member Role: Primary Care Nurse Name: Fadumo Conti RN Position: [facility] RN Member Role: Primary Care Nurse Care Team Related Persons Name: TIM NAGY Address: [address] [address] Name: GORAN QUINTERO
--- OUTSIDE RECORDS SUMMARY | 2023-12-30 12:55 | XMS_ITS | Continuity of Care Document ---
Author Organization [facility] Kunal Aldair lt Address [address] [place] [address]- Care Team Providers Care Floorwalker Name Role Phone Maria Esther URIAS, Balaji Quick Primary Care Physician Encounter [facility] Date(s): 09/29/21 - 10/29/21 [facility] Adult [address] [place] [address]- Allergies, Adverse Reactions, Alerts Substance Reaction Severity [...] 23-valent vaccine 12/17/12 Recorded 1Result Comment: [02/15/2018] 48013-383-22 2Result Comment: [08/02/2017] [facility] 34624-864-12 Medications aspirin 81 mg oral delayed release tablet = 81 mg, By Mouth, Daily, # 90 tablet, 3 Refills, Maintenance, 10/05/21 17:34:00 EDT, EC Tablet, [facility] #[id number], Partial fill upon patient request if the prescription is for a schedule II opioid drug., 182, cm, 09/10/21 8:13:00 EDT, Heigh... Start Date: 10/05/21 Status: Ordered atorvastatin 80 mg oral tablet 1 tablet = 80 mg, By Mouth, Daily, # 90 tablet, 3 Refills, Maintenance, 10/05/21 17:34:00 EDT, Tablet, [facility] #[id number], Partial fill upon patient request if the prescription is for a schedule II opioid drug., 182, cm, 09/10/21 8:13:00 EDT,... Start Date: 10/05/21 Status: Ordered BuPROPion (Eqv-Wellbutrin SR) 150 mg/12 hours oral tablet, extended release 1 tablet = 150 mg, By Mouth, 2 times a day, # 180 tablet, 3 Refills, Maintenance, 10/05/21 17:37:00EDT, SR Tablet, [facility] #[id number], Partial fill upon patient request if the prescription is for a schedule II opioid drug., 182, cm, 09/10/21... Start Date: 10/05/21 Status: Ordered clopidogrel 75 mg oral tablet 1, tablet, By Mouth, Daily, # 90 tablet, Refills 3, Tot. Refills 3, Maintenance, 10/05/21 17:34:00 EDT, Route to Pharmacy Electronically, [facility] #[id number], 182, cm, 09/10/21 8:13:00 EDT, Height, 102.7, [...] 5 Refills, Maintenance, 09/29/20 16:49:00 EDT, Nasal [place], [facility] #[id number], Partial fill upon patient request if the prescription is for a schedule II opioid drug., 1 sprays Nares, B... Start Date: 09/29/20 Status: Ordered FLUoxetine 40 mg oral capsule 1 capsule = 40 mg, By Mouth, Daily, # 90 capsule, 3 Refills, Maintenance, 10/05/21 17:34:00 EDT, Capsule, [facility] #[id number], Partial fill upon patient request if the [...] 90 tablet, 3 Refills, 10/05/21 17:35:00 EDT, [facility] #[id number], 182, cm, 09/10/21 8:13:00 EDT, Height, 102.7, [...] 10/06/21 14:57:00 EDT, Route to Pharmacy Electronically, [facility] #[id number], Partial fill upon patient request if the prescription is for a sche... Start Date: 10/06/21 Stop Date: 10/01/22 Status: Ordered lidocaine 5% topical film 1 patch, Topically, Daily, PRN Pain , Mild, remove after 12 hours, # 30 patch, 11 Refills, Maintenance, 02/20/21 7:32:00 EDT, Patch, [facility], Partial fill upon patient request if the prescription is for a schedule II opioid drug., 1 patch T... Start Date: 02/20/21 Status: Ordered metoprolol 25 mg oral tablet 12.5 mg, 0.5, tablet, By Mouth, 2 times a day, # 90 tablet, Refills 3, Tot. Refills 3, Maintenance,10/05/21 17:40:00 EDT, Route to Pharmacy Electronically, [facility] #[id number], Partial fill upon patient request if the prescription is for a sc... Start Date: 10/05/21 Status: Ordered QUEtiapine 400 mg oral tablet, extended release 400 mg, 1, tablet, By Mouth, Daily in PM, # 90 tablet, Refills 1, Tot. Refills 1, Maintenance, 10/05/21 17:36:00 EDT, Route to Pharmacy Electronically, [facility] #[id number], Partial fill upon patient request if the prescription is for a schedul... Start Date: 10/05/21 Status: Ordered FCI VISIT FREQUENCY FCI VISIT FREQUENCY, See Instructions, # 1 each, Refills 0, Tot. Refills 0, Maintenance, PLEASE INCREASE FCI VISITS TO TWICE A DAY FOR MEDICATION MANAGEMENT AND ADMINISTRATION., 10/06/21 15:08:00 EDT, Supply Start Date: 10/06/21 Status: Ordered traZODone 100 mg oral tablet 200 mg, 2, tablet, By Mouth, Daily at bedtime, # 180 tablet, Refills 3, Tot. Refills 3, Maintenance, 10/05/21 17:36:00 EDT, Route to Pharmacy Electronically, [facility] #[id number], Partial fillupon patient request if the prescription [...]
--- OUTSIDE RECORDS SUMMARY | 2023-12-30 12:55 | XMS_ITS | Continuity of Care Document ---
Author Organization [facility] Kunal Aldair Address [address] [place] [address]- Care Team Providers Care Director State Pharmacy Name Role Phone Maria Esther URIAS, Balaji Quick Primary Care Physician Encounter [facility] Date(s): 12/03/20 - 01/02/[address] [facility] [place] Adult [address] [place] [address]- Allergies, Adverse Reactions, Alerts Substance Reaction Severity [...] acel(Tdap) 2 08/02/17 Given 1Result Comment: [02/15/2018] 32933-557-45 2Result Comment: [08/02/2017] [facility] 24341-511-95 Medications amLODIPine 5 mg oral tablet 2.5 [...] 09/14/20 12:44:00 EDT, Route to Pharmacy Electronically, [facility] #[id number], 180, cm, 09/07/20 10:33:00 EDT, Height Start Date: 09/14/20 Status: Ordered Flonase 50 mcg/inh nasal spray 1 sprays = 50 mcg, Nares, Both, 2 times a day, # 16 Gm, 5 Refills, Maintenance, 09/29/20 16:49:00 EDT, Nasal [place], [facility] #[id number], Partial fill upon patient request if the [...] 09/13/20 6:59:00 EDT, Route to Pharmacy Electronically, [facility] #[id number], Partial fill upon patient request if the [...] tablet, 0 Refills, Maintenance, 09/14/20 12:44:00 EDT, [facility] #[id number], 180, cm, 09/07/20 10:33:00 EDT, Height Start [...] Maintenance, :58:00 EDT, Route to Pharmacy Electronically, [facility] #[id number], Partial fill upon patient request if the [...]
--- OUTSIDE RECORDS SUMMARY | 2023-12-30 12:55 | XMS_ITS | Continuity of Care Document ---
Author Organization [facility] Kunal Aldair Address [address] [place] [address]- Care Team Providers Care Motor And Generator Brush Maker Name Role Phone Maria Esther URIAS, Balaji Quick Primary Care Physician Encounter [facility] Date(s): 07/30/20 - 08/29/20 [facility] Adult [address] [place] [address]- Allergies, Adverse Reactions, Alerts Substance Reaction Severity [...] acel(Tdap) 2 08/02/17 Given 1Result Comment: [02/15/2018] 37988-265-31 2Result Comment: [08/02/2017] [facility] 85807-233-26 Medications amLODIPine 5 mg oral tablet 1 tablet = 5 mg, By Mouth, Daily, # 90 tablet, 0 Refills, Maintenance, 08/18/20 1:50:00 EDT, Tablet, Partial fill upon patient request if the prescription is for a schedule II opioid drug. Start Date: 08/18/20 Status: Ordered atorvastatin 80 mg oral tablet [...] opioid drug. Start Date: 08/18/20 Status: Ordered cyclobenzaprine 5 mg oral tablet 1 tablet, By Mouth, 2 times a day, PRN NEEDED FOR MUSCLE SPASM, # 60 tablet, 0 Refills, Acute, 08/12/20 15:35:00 EDT, [facility] #[id number], 180, cm, 07/02/20 8:37:00 EST, Height Start Date: 08/12/20 Status: Ordered cyclobenzaprine 5 mg oral tablet 1 tablet = 5 mg, By Mouth, 3 times a day, # 42 tablet, 0 Refills, Maintenance, 08/18/20 1:49:00 EDT, Tablet, Partial fill upon patient request if the prescription is for a schedule II opioid drug. Start Date: 08/18/20 Stop Date: 09/01/20 Status: Ordered ezetimibe 10 mg oral tablet 1 tablet = 10 mg, By Mouth, Daily, # 30 tablet, 0 Refills, Maintenance, 08/18/20 1:50:00 EDT, Tablet, Partial fill upon patient request if the prescription is for a schedule II opioid drug. Start Date: 08/18/20 Status: Ordered famotidine 20 mg oral tablet 20 mg, 1, tablet, By Mouth, 2 times a day, # 60 tablet, Refills 0, Maintenance, 08/18/20 1:49:00 EDT, [...] mg, By Mouth, Daily in AM, # 30 tablet, 0 Refills, Maintenance, 08/18/20 1:49:00 EDT,ER Tablet, Partial fill upon patient request if the prescription is for a schedule II opioid drug. Start Date: 08/18/20 Status: Ordered lamotrigine 100 mg oral tablet 100 mg, 1, tablet, By Mouth, 2 times a day, # 180 tablet, Refills 0, Maintenance, 08/18/20 1:49:00 EDT, Partial fill upon patient request if the prescription is for a schedule II opioid drug. Start Date: 08/18/20 Status: Ordered lidocaine 5% topical film 1 [...] 08/13/20 16:12:00 EDT, Route to Pharmacy Electronically, [facility], 180, cm, 07/02/20 8:37:00EST, Height Start Date: 08/13/20 Status: Ordered Metoprolol Tartrate 25 mg oral tablet 1 tablet = 25 mg, By Mouth, 2 times a day, # 180 tablet, 0 Refills, Maintenance, 08/18/20 1:49:00 EDT, Tablet, Partial fill upon patient request if the prescription is for a schedule II opioid drug. Start Date: 08/18/20 Status: Ordered nitroglycerin 0.4 mg sublingual tablet [...] day mata garza entered on: 02/15/18 Sex Male
--- OUTSIDE RECORDS SUMMARY | 2023-12-30 12:55 | XMS_ITS | Continuity of Care Document ---
Author Organization [facility] Kunal Aldair lt Address [address] [place] [address]- Care Team Providers Care Business Continuity Analyst Name Role Phone Maria Esther URIAS, Balaji Quick Primary Care Physician Encounter [facility] Date(s): 09/26/22 - 10/26/22 [facility] Kunal Adult [address] [place] [address]- Allergies, Adverse Reactions, Alerts Substance Reaction Severity [...] pneumococcal 23-valent vaccine 12/17/12 Recorded 1Result Comment: [id number] 2Result Comment: [02/15/2018] [id number] 3Result Comment: [08/02/2017] [facility] 10458-669-99 Medications amLODIPine 10 mg oral tablet 10 mg, 1, tablet, By Mouth, Daily, # 90 tablet, Refills 3, Tot. Refills 3, Maintenance, 10/26/22 13:35:00 EDT, Route to Pharmacy Electronically, [facility] #[id number], Partial fill upon patientrequest if the prescription is for a schedule II op... Start Date: 10/26/22 Status: Ordered aspirin 81 mg oral delayed release tablet = 81 mg, By Mouth, Daily, # 90 tablet, 3 Refills, Maintenance, 10/05/21 17:34:00 EDT, EC Tablet, [facility] #[id number], Partial fill upon patient request if the prescription is for a schedule II opioid drug., 182, cm, 09/10/21 8:13:00 EDT, Heigh... Start Date: 10/05/21 Status: Ordered atorvastatin 80 mg oral tablet 1 tablet = 80 mg, By Mouth, Daily, # 90 tablet, 3 Refills, Maintenance, 10/05/21 17:34:00 EDT, Tablet, [facility] #[id number], Partial fill upon patient request if the prescription is for a schedule II opioid drug., 182, cm, 09/10/21 8:13:00 EDT,... Start Date: 10/05/21 Status: Ordered BuPROPion (Eqv-Wellbutrin SR) 150 mg/12 hours oral tablet, extended release 1 tablet = 150 mg, By Mouth, 2 times a day, # 180 tablet, 3 Refills, Maintenance, 10/05/21 17:37:00EDT, SR Tablet, [facility] #[id number], Partial fill upon patient request if the prescription is for a schedule II opioid drug., 182, cm, 09/10/21... Start Date: 10/05/21 Status: Ordered clopidogrel 75 mg oral tablet 1, tablet, By Mouth, Daily, # 90 tablet, Refills 0, Maintenance, 10/07/22 6:36:00 EDT, Route to Pharmacy Electronically, [facility] #[id number], 184, cm, 09/28/22 9:02:00 EDT, Height, 106.3, kg,09/13/22 12:30:00 EDT, Dry Weight Start Date: 10/07/22 Status: Ordered Flonase 50 mcg/inh nasal spray 1 sprays = 50 mcg, Nares, Both, 2 times a day, # 16 Gm, 5 Refills, Maintenance, 09/15/22 8:26:00 EDT, Nasal [place], [facility] #[id number], Partial fill upon patient request if the [...] 3 Refills, Maintenance, 10/05/21 17:34:00 EDT, Capsule, [facility] #[id number], Partial fill upon patient request if the prescription is for a schedule II opioid drug., 182, cm, 09/10/21 8:13:00 E... Start Date: 10/05/21 Status: Ordered isosorbide mononitrate 30 mg oral tablet, extended release 1 tablet, By Mouth, Daily in AM, # 90 tablet, 3 Refills, Maintenance, 10/20/22 16:40:00 EDT, [facility] #[id number], 184, cm, 09/28/22 9:02:00 EDT, Height, 106.3, [...] tablet, 5 Refills, Maintenance, 09/18/22 18:55:00 EDT, [facility] #[id number], 184, cm, 09/15/22 9:12:00 EDT, Height, 106.3, [...] capsule, 1 Refills, Maintenance, 09/28/22 9:21:00 EDT, [facility] #[id number], Partial fill upon patient request if the [...] 10/05/21 17:36:00 EDT, Route to Pharmacy Electronically, [facility] #[id number], Partial fillupon patient request if the prescription [...] Name: Wild Woods RN Position: [facility] ED RN W/OE and Tasks Member Role: Primary Care Nurse Name: Camila Vazquez RN Position: [facility] RN Member Role: Primary Care Nurse Name: Taylor Beck RN Position: [facility] RN Member Role: Primary Care Nurse Name: Amanda Garibay RN Position: [facility] RN Member Role: Primary Care Nurse Name: Mary Roberson RN Position: [facility] RN Member Role: Primary Care Nurse Name: Tomas Stauffer RN Position: [facility] RN Member Role: Primary Care Nurse Name: Balaji Mayo MD Position: [facility] Physician - Primary Care Member Role: PCP Address: Address: [address] [place] [address]- Name: Fadumo Conti RN Position: [facility] RN Member Role: Primary Care Nurse Care Team Related Persons Name: ROSANA NAGY Address: home [address] [place] [id number] Name: GORAN QUINTERO
--- OUTSIDE RECORDS SUMMARY | 2023-12-30 12:55 | XMS_ITS | Continuity of Care Document ---
Author Organization [facility] Kunal Aldair lt Address [address] [place] [address]- Care Team Providers Care Field Liability Generalist Name Role Phone Maria Esther URIAS, Balaji Quick Primary Care Physician Encounter [facility] Date(s): 04/10/23 - 05/10/23 [facility] [place] Adult [address] [place] [address]- Allergies, Adverse Reactions, Alerts Substance Reaction Severity [...] 23-valent vaccine 12/17/12 Recorded 1Result Comment: [02/15/2018] 35965-431-33 2Result Comment: [id number] 3Result Comment: [08/02/2017] [facility] 30867-731-90 Medications Aspirin Low Dose 81 mg oral delayed release tablet 1 tablet, By Mouth, Daily, # 90 tablet, 3 Refills, Maintenance, 11/08/22 11:19:00 EDT, [facility] #[id number], 184, cm, 11/03/22 11:28:00 EDT, Height, 106.3, kg, 09/13/22 12:30:00 EDT, Dry Weight Start Date: 11/08/22 Status: Ordered atorvastatin 80 mg oral tablet 1 tablet = 80 mg, By Mouth, Daily, # 90 tablet, 3 Refills, Maintenance, 12/05/22 4:30:00 EDT, Tablet, [facility] #[id number], Partial fill upon patient request if the prescription is for a schedule II opioid drug., 183, cm, 11/10/22 17:28:00 EDT,... Start Date: 12/05/22 Status: Ordered BuPROPion (Eqv-Wellbutrin SR) 150 mg/12 hours oral tablet, extended release 1 tablet = 150 mg, By Mouth, 2 times a day, # 180 tablet, 3 Refills, Maintenance, 10/05/21 17:37:00EDT, SR Tablet, [facility] #[id number], Partial fill upon patient request if the prescription is for a schedule II opioid drug., 182, cm, 09/10/21... Start Date: 10/05/21 Status: Ordered clopidogrel 75 mg oral tablet 1, tablet, By Mouth, Daily, # 90 tablet, Refills 3, Maintenance, 01/13/23 16:50:00 EDT, Route to Pharmacy Electronically, [facility] #[id number], 183, cm, 12/05/22 16:08:00 EDT, Height, 106.3, kg, 09/13/22 12:30:00 EDT, Dry Weight Start Date: 01/13/23 Status: Ordered Flonase 50 mcg/inh nasal spray 1 sprays = 50 mcg, Nares, Both, 2 times a day, # 16 Gm, 5 Refills, Maintenance, 09/15/22 8:26:00 EDT, Nasal [place], [email or web address] #[id number], Partial fill upon patient request if the prescription is for a schedule II opioid drug., 1 sprays Nares, [place]... Start Date: 09/15/22 Status: Ordered FLUoxetine 40 mg oral capsule 1 capsule = 40 mg, By Mouth, Daily, # 90 capsule, 3 Refills, Maintenance, 10/05/21 17:34:00 EDT, Capsule, [email or web address] #[id number], Partial fill upon patient request if the [...] 11 Refills, Maintenance, 11/30/22 6:36:00 EDT, Tablet, [facility] #[id number], Partial fill upon patient requestif the prescription [...] capsule, 1 Refills, Maintenance, 09/28/22 9:21:00 EDT, [email or web address] #[id number], Partial fill upon patient request if the [...] 10/05/21 17:36:00 EDT, Route to Pharmacy Electronically, [email or web address] #[id number], Partial fillupon patient request if the prescription [...] Member Role: Primary Care Nurse Name: Amanda Garbiay RN Position: [facility] RN Member Role: Primary Care Nurse Name: Mary Roberson RN Position: [facility] RN Member Role: Primary Care Nurse Name: Tomas Stauffer RN Position: [facility] RN Member Role: Primary Care Nurse Name: Balaji Mayo MD Position: [facility] Physician - Primary Care Member Role: PCP Address: Address: [address] [place] [address]- [place] Care Team Related Persons Name: ROSANA NAGY Address: home [address] [place] [address] Name: GORAN QUINTERO
--- OUTSIDE RECORDS SUMMARY | 2023-12-30 12:55 | XMS_ITS | Continuity of Care Document ---
Author Organization [facility] Kunal Aldair lt Address [address] [place] [address]- Care Team Providers Care Mattress And Boxsprings Supervisor Name Role Phone Maria Esther URIAS, Balaji Quick Primary Care Physician [facility]): 01[facility]27/22 - 02/03/22 [facility] Adult [address] [place] [address]- Encounter Diagnosis Ecchymosis(Discharge Diagnosis) - 01/27/22 Attending Physician: Andre HYATT, Michelle Garcia Allergies, Adverse Reactions, Alerts Substance [...] pneumococcal 23-valent vaccine 12/17/12 Recorded 1Result Comment: [id number] 2Result Comment: [02/15/2018] 64532-737-38 3Result Comment: [08/02/2017] [facility] 78377-316-66 Medications aspirin 81 mg oral delayed release tablet = 81 mg, By Mouth, Daily, # 90 tablet, 3 Refills, Maintenance, 10/05/21 17:34:00 EDT, EC Tablet, [facility] #[id number], Partial fill upon patient request if the prescription is for a schedule II opioid drug., 182, cm, 09/10/21 8:13:00 EDT, Heigh... Start Date: 10/05/21 Status: Ordered atorvastatin 80 mg oral tablet 1 tablet = 80 mg, By Mouth, Daily, # 90 tablet, 3 Refills, Maintenance, 10/05/21 17:34:00 EDT, Tablet, [facility] #[id number], Partial fill upon patient request if the prescription is for a schedule II opioid drug., 182, cm, 09/10/21 8:13:00 EDT,... Start Date: 10/05/21 Status: Ordered BuPROPion (Eqv-Wellbutrin SR) 150 mg/12 hours oral tablet, extended release 1 tablet = 150 mg, By Mouth, 2 times a day, # 180 tablet, 3 Refills, Maintenance, 10/05/21 17:37:00EDT, SR Tablet, [facility] #[id number], Partial fill upon patient request if the prescription is for a schedule II opioid drug., 182, cm, 09/10/21... Start Date: 10/05/21 Status: Ordered clopidogrel 75 mg oral tablet 1, tablet, By Mouth, Daily, # 90 tablet, Refills 3, Tot. Refills 3, Maintenance, 10/05/21 17:34:00 EDT, Route to Pharmacy Electronically, [facility] #[id number], 182, cm, 09/10/21 8:13:00 EDT, Height, 102.7, [...] 5 Refills, Maintenance, 09/29/20 16:49:00 EDT, Nasal [place], [facility] #[id number], Partial fill upon patient request if the prescription is for a schedule II opioid drug., 1 sprays Nares, B... Start Date: 09/29/20 Status: Ordered FLUoxetine 40 mg oral capsule 1 capsule = 40 mg, By Mouth, Daily, # 90 capsule, 3 Refills, Maintenance, 10/05/21 17:34:00 EDT, Capsule, [facility] #[id number], Partial fill upon patient request if the [...] 90 tablet, 3 Refills, 10/05/21 17:35:00 EDT, [facility] #[id number], 182, cm, 09/10/21 8:13:00 EDT, Height, 102.7, [...] 10/06/21 14:57:00 EDT, Route to Pharmacy Electronically, [facility] #[id number], Partial fill upon patient request if the prescription is for a sche... Start Date: 10/06/21 Stop Date: 10/01/22 Status: Ordered lidocaine 5% topical film 1 patch, Topically, Daily, PRN Pain , Mild, remove after 12 hours, # 30 patch, 11 Refills, Maintenance, 02/20/21 7:32:00 EDT, Patch, [facility], Partial fill upon patient request if the prescription is for a schedule II opioid drug., 1 patch T... Start Date: 02/20/21 Status: Ordered metoprolol 25 mg oral tablet 12.5 mg, 0.5, tablet, By Mouth, 2 times a day, # 90 tablet, Refills 3, Tot. Refills 3, Maintenance,10/05/21 17:40:00 EDT, Route to Pharmacy Electronically, [facility] #[id number], Partial fill upon patient request if the prescription is for a sc... Start Date: 10/05/21 Status: Ordered QUEtiapine 400 mg oral tablet, extended release 400 mg, 1, tablet, By Mouth, Daily in PM, # 90 tablet, Refills 1, Tot. Refills 1, Maintenance, 10/05/21 17:36:00 EDT, Route to Pharmacy Electronically, [facility] #[id number], Partial fill upon patient request if the [...] 10/05/21 17:36:00 EDT, Route to Pharmacy Electronically, [facility] #[id number], Partial fillupon patient request if the prescription [...] Diagnosis Diagnosis Type Effective Dates Health Status Clini rachael Service Informant Ecchymosis Discharge Diagnosis 01/27/22 Vital Signs Most recent to oldest [Reference Range]: 1 2 Height 182 cm (01/27/22 12:07 PM) 182 cm (01/27/22 11:54 AM) Weight 109.1 kg (01/27/22 11:54 AM) Oxygen Saturation [94-100 %] 98 % (01/27/22 11:54 AM) Pulse Rate [55-90 bpm] 99 bpm *H* (01/27/22 11:54 AM) Body Mass Index [18.5-24.99 kg/m2] 32.94 kg/m2 *>HHI* (01/27/22 11:54 AM) Blood Pressure [90-138/55-84 mm Hg] 164/ 84mm Hg *H* (01/27/22 12:07 PM) 157/81mm Hg *H* (01/27/22 11:54 AM) Temperature [96.8-100.4 DegF] 97.7 DegF (01/27/22 11:54 AM) Blood pressure sites Arm, right (01/27/22 12:07 PM) Arm, right (01/27/22 11:54 AM) Temperature Route Temporal (01/27/22 11:54 AM) Weight Obtained Via Standing scale (01/27/22 11:54 AM) Social History Social History Type Response Smoking Status Current some day smo ker entered on: 02/15/18 Sex Patient Care team information Personnel Name: Maria Esther URIAS, Balaji Quick Address: Address: [address] [place] [phone]
--- OUTSIDE RECORDS SUMMARY | 2023-12-30 12:55 | XMS_ITS | Continuity of Care Document ---
Author Organization [facility] Rico Syed Aldair lt Address [address] [place] [address]- Care Team Providers Care Silk Folder Name Role Phone Maria Esther URIAS, Balaji Quick Primary Care Physician [facility]): 07[facility]23 - 08/30/23 [facility] Rico Syed Adult [address] [place] [address]- Allergies, Adverse Reactions, Alerts Substance Reaction Severity [...] 23-valent vaccine 12/17/12 Recorded 1Result Comment: [02/15/2018] 76553-582-61 2Result Comment: [id number] 3Result Comment: [08/02/2017] [facility] 36724-073-91 Medications Aspirin Low Dose 81 mg oral delayed release tablet 1 tablet, By Mouth, Daily, # 90 tablet, 3 Refills, Maintenance, 11/08/22 11:19:00 EDT, [id number] #[id number], 184, cm, 11/03/22 11:28:00 EDT, Height, 106.3, kg, 09/13/22 12:30:00 EDT, Dry Weight Start Date: 11/08/22 Status: Ordered atorvastatin 80 mg oral tablet 1 tablet = 80 mg, By Mouth, Daily, # 90 tablet, 3 Refills, Maintenance, 08/18/23 16:03:00 EDT, Tablet, [facility] #[id number], Partial fill upon patient request if the prescription is for a schedule II opioid drug., 183, cm, 08/09/23 10:49:00 EDT... Start Date: 08/18/23 Status: Ordered BuPROPion (Eqv-Wellbutrin SR) 150 mg/12 hours oral tablet, extended release 1 tablet = 150 mg, By Mouth, 2 times a day, # 180 tablet, 3 Refills, Maintenance, 10/05/21 17:37:00EDT, SR Tablet, [facility] #[id number], Partial fill upon patient request if the prescription is for a schedule II opioid drug., 182, cm, 09/10/21... Start Date: 10/05/21 Status: Ordered clopidogrel 75 mg oral tablet 1, tablet, By Mouth, Daily, # 90 tablet, Refills 3, Tot. Refills 3, Maintenance, 08/18/23 16:03:00 EDT, Route to Pharmacy Electronically, [facility] #[id number], 183, cm, 08/09/23 10:49:00 EDT, Height, 107, kg, 01/26/23 19:57:00 EDT, Dry Weight Start Date: 08/18/23 Status: Ordered FLUoxetine 40 mg oral capsule 1 capsule = 40 mg, By Mouth, Daily, # 90 capsule, 3 Refills, Maintenance, 10/05/21 17:34:00 EDT, Capsule, [facility] #[id number], Partial fill upon patient request if the prescription is for a schedule II opioid drug., 182, cm, 09/10/21 8:13:00 E... Start Date: 10/05/21 Status: Ordered fluticasone 50 mcg/inh nasal spray 1 sprays = 50 mcg, Nares, Both, 2 times a day, PRN allergies, # 16 Gm, 11 Refills, Maintenance, 08/18/23 16:05:00 EDT, [place], [facility] #[id number], Partial fill upon patient request if the [...] 11 Refills, Maintenance, 08/18/23 16:04:00 EDT, Tablet, [facility] #[id number], Partial fill upon patient request if the prescription is for a schedule II opioid dr... Start Date: 08/18/23 Status: Ordered Norvasc 2.5 mg oral tablet 2.5 mg, 1, tablet, By Mouth, Daily, # 90 tablet, Refills 3, Tot. Refills 3, Maintenance, 08/18/23 16:02:00 EDT, Route to Pharmacy Electronically, [facility] #[id number], Partial fill upon patient request if the prescription is for a schedule II o... Start Date: 08/18/23 Status: Ordered omeprazole 20 mg oral enteric coated capsule 1 capsule = 20 mg, By Mouth, Daily, # 90 capsule, 3 Refills, Maintenance, 08/18/23 16:04:00 EDT, [facility] #[id number], Partial fill upon patient request if the [...] 08/18/23 16:01:00 EDT, Route to Pharmacy Electronically, [facility] #[id number] Tablet, Partial fill upon ani... Start Date: 08/18/23 Stop Date: 08/17/24 Status: Ordered traZODone 100 mg oral tablet 200 mg, 2, tablet, By Mouth, Daily at bedtime, # 180 tablet, Refills 3, Tot. Refills 3, Maintenance, 10/05/21 17:36:00 EDT, Route to Pharmacy Electronically, [facility] #[id number], Partial fillupon patient request if the prescription [...] Team Personnel Name: Wild Woods RN Position: [facility] ED RN W/OE and Tasks Member Role: Primary Care Nurse Name: Esme Garcia RN Position: [facility] RN Member Role: Primary Care Nurse Name: Erich Dias RN Position: [facility] RN Member Role: Primary Care Nurse Name: Camila Vazquez RN Position: [facility] RN Member Role: Primary Care Nurse Name: Taylor Beck RN Position: [facility] RN Member Role: Primary Care Nurse Name: Amanda Moraes RN Position: [facility] RN Member Role: Primary Care Nurse Name: Mary Roberson RN Position: [facility] RN Member Role: Primary Care Nurse Name: Tomas Stauffer RN Position: [facility] RN Member Role: Primary Care Nurse Name: Balaji Mayo MD Position: [facility] Physician - Primary Care Member Role: PCP Address: Address: [address] [place] [phone]- [place] Care Team Related Persons Name: ROSANA NAGY Address: home [address] [place] [id number] Name: GORAN QUINTERO
--- OUTSIDE RECORDS SUMMARY | 2023-12-30 12:55 | XMS_ITS | Continuity of Care Document ---
Author Organization [facility] Kunal Aldair lt Address [address] [place] [address]- Care Team Providers Care Junior Mechanical Engineer Name Role Phone Maria Esther URIAS, Balaji Quick Primary Care Physician [facility] Date[facility]): 03/02/22 - 04/01/22 [facility] Kunal Adult [address] [place] [address]- Allergies, Adverse Reactions, Alerts Substance Reaction Severity [...] pneumococcal 23-valent vaccine 12/17/12 Recorded 1Result Comment: [id number] 2Result Comment: [02/15/2018] [id number] 3Result Comment: [08/02/2017] [facility] 67854-778-15 Medications aspirin 81 mg oral delayed release tablet = 81 mg, By Mouth, Daily, # 90 tablet, 3 Refills, Maintenance, 10/05/21 17:34:00 EDT, EC Tablet, [facility] #[id number], Partial fill upon patient request if the prescription is for a schedule II opioid drug., 182, cm, 09/10/21 8:13:00 EDT, Heigh... Start Date: 10/05/21 Status: Ordered atorvastatin 80 mg oral tablet 1 tablet = 80 mg, By Mouth, Daily, # 90 tablet, 3 Refills, Maintenance, 10/05/21 17:34:00 EDT, Tablet, [facility] #[id number], Partial fill upon patient request if the prescription is for a schedule II opioid drug., 182, cm, 09/10/21 8:13:00 EDT,... Start Date: 10/05/21 Status: Ordered BuPROPion (Eqv-Wellbutrin SR) 150 mg/12 hours oral tablet, extended release 1 tablet = 150 mg, By Mouth, 2 times a day, # 180 tablet, 3 Refills, Maintenance, 10/05/21 17:37:00EDT, SR Tablet, [facility] #[id number], Partial fill upon patient request if the prescription is for a schedule II opioid drug., 182, cm, 09/10/21... Start Date: 10/05/21 Status: Ordered clopidogrel 75 mg oral tablet 1, tablet, By Mouth, Daily, # 90 tablet, Refills 3, Tot. Refills 3, Maintenance, 10/05/21 17:34:00 EDT, Route to Pharmacy Electronically, [facility] #[id number], 182, cm, 09/10/21 8:13:00 EDT, Height, 102.7, [...] 5 Refills, Maintenance, 09/29/20 16:49:00 EDT, Nasal [place], [facility] #[id number], Partial fill upon patient request if the prescription is for a schedule II opioid drug., 1 sprays Nares, B... Start Date: 09/29/20 Status: Ordered FLUoxetine 40 mg oral capsule 1 capsule = 40 mg, By Mouth, Daily, # 90 capsule, 3 Refills, Maintenance, 10/05/21 17:34:00 EDT, Capsule, [facility] #[id number], Partial fill upon patient request if the [...] 90 tablet, 3 Refills, 10/05/21 17:35:00 EDT, [facility] #[id number], 182, cm, 09/10/21 8:13:00 EDT, Height, 102.7, [...] 10/06/21 14:57:00 EDT, Route to Pharmacy Electronically, [facility] #[id number], Partial fill upon patient request if the prescription is for a sche... Start Date: 10/06/21 Stop Date: 10/01/22 Status: Ordered lidocaine 5% topical film 1 patch, Topically, Daily, PRN Pain , Mild, remove after 12 hours, # 30 patch, 11 Refills, Maintenance, 02/20/21 7:32:00 EDT, Patch, [facility], Partial fill upon patient request if the prescription is for a schedule II opioid drug., 1 patch T... Start Date: 02/20/21 Status: Ordered metoprolol 25 mg oral tablet 12.5 mg, 0.5, tablet, By Mouth, 2 times a day, # 90 tablet, Refills 3, Tot. Refills 3, Maintenance,10/05/21 17:40:00 EDT, Route to Pharmacy Electronically, [facility] #[id number], Partial fill upon patient request if the prescription is for a sc... Start Date: 10/05/21 Status: Ordered QUEtiapine 400 mg oral tablet, extended release 400 mg, 1, tablet, By Mouth, Daily in PM, # 90 tablet, Refills 1, Tot. Refills 1, Maintenance, 10/05/21 17:36:00 EDT, Route to Pharmacy Electronically, [facility] #[id number], Partial fill upon patient request if the prescription is for a schedul... Start Date: 10/05/21 Status: Ordered CORRECTION VISIT FREQUENCY CORRECTION VISIT FREQUENCY, See Instructions, # 1 each, Refills 0, Tot. Refills 0, Maintenance, PLEASE INCREASE CORRECTION VISITS TO TWICE A DAY FOR MEDICATION MANAGEMENT AND ADMINISTRATION., 10/06/21 15:08:00 EDT, Supply Start Date: 10/06/21 Status: Ordered traZODone 100 mg oral tablet 200 mg, 2, tablet, By Mouth, Daily at bedtime, # 180 tablet, Refills 3, Tot. Refills 3, Maintenance, 10/05/21 17:36:00 EDT, Route to Pharmacy Electronically, [facility] #[id number], Partial fillupon patient request if the prescription [...] Mayo MD Position: [facility] Primary Care Physician Member Role: PCP Address: Address: [address] [place] [id number]- Name: Pattie Oates RN Position: [facility] RN Member Role: Primary Care Nurse Care Team Related Persons Name: ROSANA NAGY Address: home [address] [place] [address] Name: GORAN QUINTERO
--- OUTSIDE RECORDS SUMMARY | 2023-12-30 12:56 | XMS_ITS | Continuity of Care Document ---
Author Organization [facility] Kunal Aldair Address [address] [place] [address]- Care Team Providers Care Brewer Helper Name Role Phone Maria Esther URIAS, Balaji Quick Primary Care Physician [facility] 09[facility]14/20 - 10/14/20 [facility] [address] [place] [address]- Allergies, Adverse Reactions, Alerts Substance Reaction Severity [...] acel(Tdap) 2 08/02/17 Given 1Result Comment: [02/15/2018] [id number] 2Result Comment: [08/02/2017] [facility] 77961-698-67 Medications amLODIPine 5 mg oral tablet 2.5 [...] 09/14/20 12:44:00 EDT, Route to Pharmacy Electronically, [facility] #[id number], 180, cm, 09/07/20 10:33:00 EDT, Height Start Date: 09/14/20 Status: Ordered Flonase 50 mcg/inh nasal spray 1 sprays = 50 mcg, Nares, Both, 2 times a day, # 16 Gm, 5 Refills, Maintenance, 09/29/20 16:49:00 EDT, Nasal [place], [facility] #[id number], Partial fill upon patient request if the [...] 09/13/20 6:59:00 EDT, Route to Pharmacy Electronically, [facility] #[id number], Partial fill upon patient request if the [...] tablet, 0 Refills, Maintenance, 09/14/20 12:44:00 EDT, [facility] #[id number], 180, cm, 09/07/20 10:33:00 EDT, Height Start [...] Maintenance, 217:58:00 EDT, Route to Pharmacy Electronically, [facility] #[id number], Partial fill upon patient request if the [...]
--- OUTSIDE RECORDS SUMMARY | 2023-12-30 12:56 | XMS_ITS | Continuity of Care Document ---
Author Organization [facility] Aldair Address [address] [place] [address]- Care Team Providers Care Buckle And Button Maker Name Role Phone Balaji Mayo MD Primary Care Physician [place] [facility] [place] 09/10/20 - 10/18/20 [facility] Adult [address] [place] [address]- Attending Physician: Balaji Mayo MD Allergies, Adverse [...] acel(Tdap) 2 08/02/17 Given 1Result Comment: [02/15/2018] [id number] 2Result Comment: [08/02/2017] [facility] [id number] Medications amLODIPine 5 mg oral tablet 2.5 [...] 09/14/20 12:44:00 EDT, Route to Pharmacy Electronically, [facility] #[id number], 180, cm, 09/07/20 10:33:00 EDT, Height Start Date: 09/14/20 Status: Ordered Flonase 50 mcg/inh nasal spray 1 sprays = 50 mcg, Nares, Both, 2 times a day, # 16 Gm, 5 Refills, Maintenance, 09/29/20 16:49:00 EDT, Nasal [place], [facility] #[id number], Partial fill upon patient request if the [...] 09/13/20 6:59:00 EDT, Route to Pharmacy Electronically, [facility] #[id number], Partial fill upon patient request if the [...] tablet, 0 Refills, Maintenance, 09/14/20 12:44:00 EDT, [facility] #[id number], 180, cm, 09/07/20 10:33:00 EDT, Height Start [...] Maintenance, 217:58:00 EDT, Route to Pharmacy Electronically, [facility] #[id number], Partial fill upon patient request if the [...]
--- OUTSIDE RECORDS SUMMARY | 2023-12-30 12:56 | XMS_ITS | Continuity of Care Document ---
Author Organization [facility] Address [address] [place] [phone]- Care Team Providers Care Associate Pastor Name Role Phone Maria Esther URIAS, Balaji Quick Primary Care Physician Encounter [facility] Date(s): 03/30/20 - 04/29/20 [facility] [address] [place] [id number] Attending Physician: Admtr, [id number] Admitting Physician: Admtr, [id number] Referring Physician: Admtr, [...] acel(Tdap) 2 08/02/17 Given 1Result Comment: [02/15/2018] [id number] 2Result Comment: [08/02/2017] [facility] 97139-483-03 Medications amLODIPine 5 mg oral tablet 5 mg, 1, tablet, By Mouth, Daily, REFAX TO [facility] PER DR COTTRELL, # 90 tablet, Refills 3, Tot.Refills 3, Maintenance, 01/16/20 15:03:00 EDT, Route to Pharmacy Electronically, [facility] #[id number], 180, cm, 12/03/19 13:50:00 EDT, Height Start Date: 01/16/20 Status: Ordered Aspirin Tablet 81 mg, By Mouth, Daily, Maintenance, 04/15/13 17:02:08 Start Date: 04/15/13 Status: Ordered atorvastatin 80 mg oral tablet 1 tablet = 80 mg, By Mouth, Daily in AM, REFAX TO [facility] PER DR COTTRELL, # 90 tablet, 1 Refills, Maintenance, 01/16/20 15:04:00 EDT, Tablet, [facility] #[id number], 180, cm, 12/03/19 13:50:00 EDT, Height, Dry [...] 01/16/20 15:09:00 EDT, Route to Pharmacy Electronically, [facility] #[id number], 180, cm, 12/03/19 13:50:00 EDT, Height Start Date: 01/16/20 Status: Ordered cyclobenzaprine 5 mg oral tablet 1 tablet = 5 mg, By Mouth, 2 times a day, PRN as needed for muscle spasm, REFAX TO [facility] PER [facility], # 60 tablet, 2 Refills, Maintenance, 01/16/20 15:05:00 EDT, Tablet, [facility]#[id number], 180, cm, 12/03/19 13:50:00 EDT, Height, Dry... [...] 01/16/20 15:06:00 EDT, Route to Pharmacy Electronically, [facility] #[id number], 180, cm, 0... Start Date: 01/16/20 Status: Ordered Flomax 0.4 mg oral capsule 0.4 mg, 1, capsule, By Mouth, Daily, REFAX TO [facility] PER DR COTTRELL, # 90 capsule, Refills 1, Tot. Refills 1, Maintenance, 01/16/20 15:08:00 EDT, Route to Pharm[facility] Electronically, [id number], 180, cm, 12/03/19 13:50:00 EDT, Height Start Date: 01/16/20 Status: Ordered isosorbide mononitrate 30 mg oral tablet, extended release 1 tablet, By Mouth, Daily in AM, [facility]OTT[facility], # 90 tablet, 1 Refills, Maintenance, 01/16/20 15:07:00 EDT, [facility] #[id number], 180, cm, 12/03/19 13:50:00 EDT, Height Start Date: 01/16/20 Status: Ordered Lamictal 100 mg oral tablet 1 tablet = 100 mg, By Mouth, 2 times a day, 0 Refills, Maintenance, 12/16/14 12:57:08 Start Date: 12/16/14 Status: Ordered Lidoderm 5% film See Instructions, Apply to affected area Topically Daily remove patches after 12 hours [facility]X TO [facility] PER [facility] COTT[facility]LL, # 30 patch, 5 Refills, Maintenance, 01/16/20 15:07:00 EDT, [facility] #[id number], Apply to affected area Topically Thomas... Start Date: 01/16/20 Status: Ordered metoprolol 25 mg oral tablet 25 mg, 1, tablet, By Mouth, 2 times a day, [facility]OTT[facility], # 180 tablet, Refills 1, Tot. Refills 1, Maintenance, 01/16/20 15:08:00 EDT, Route to Pharmacy Electronically, [facility] #[id number], 180, cm, 12/03/19 13:50:00 EDT,... Start Date: 01/16/20 Status: Ordered nitroglycerin 0.4 mg sublingual tablet 1 tablet = 0.4 mg, Sublingual, Every 5 minutes, PRN for chest pain, # 100 tablet, 0 Refills, Maintenance, 04/10/20 15:29:00 EST, Tablet, [facility] #[id number], Partial fill upon patient requestif the prescription is for a schedule II opioid lisa... Start Date: 04/10/20 Status: Ordered oxybutynin 5 mg/24 hours oral tablet, extended release 1 tablet = 5 mg, By Mouth, Daily at bedtime, # 30 tablet, 3 Refills, Maintenance, 02/13/20 23:02:00EDT, ER Tablet, [facility] #[id number], 180, cm, 12/03/19 13:50:00 EDT, Height Start [...]
--- OUTSIDE RECORDS SUMMARY | 2023-12-30 12:56 | XMS_ITS | Continuity of Care Document ---
Author Organization [facility] Address [address] [place] [address]- Care Team Providers Care Carbon Dioxide Operator Name Role Phone Maria Esther URIAS, Balaji Quick Primary Care Physician [phone] [place] [facility] [place]): [place]/20 - 07/29/20 [facility] [address] [place], [place] [address] Attending Physician: Rose HYATT, Key Han Admitting [...] acel(Tdap) 2 08/02/17 Given 1Result Comment: [02/15/2018] 07700-724-15 2Result Comment: [08/02/2017] [facility] 48526-375-29 Medications amLODIPine 5 mg oral tablet 5 mg, 1, tablet, By Mouth, Daily, REFAX TO [facility] PER DR COTTRELL, # 90 tablet, Refills 3, Tot.Refills 3, Maintenance, 01/16/20 15:03:00 EDT, Route to Pharmacy Electronically, [facility] #[id number], 180, cm, 12/03/19 13:50:00 EDT, Height Start Date: 01/16/20 Status: Ordered Aspirin Tablet 81 mg, By Mouth, Daily, Maintenance, 04/15/13 17:02:08 Start Date: 04/15/13 Status: Ordered atorvastatin 80 mg oral tablet 1 tablet = 80 mg, By Mouth, Daily in AM, REFAX TO [facility] PER DR COTTRELL, # 90 tablet, 1 Refills, Maintenance, 01/16/20 15:04:00 EDT, Tablet, [facility] #[id number], 180, cm, 12/03/19 13:50:00 EDT, Height, Dry [...] 01/16/20 15:09:00 EDT, Route to Pharmacy Electronically, [facility] #[id number], 180, cm, 12/03/19 13:50:00 EDT, Height Start Date: 01/16/20 Status: Ordered cyclobenzaprine 5 mg oral tablet 1 tablet, By Mouth, 2 times a day, PRN NEEDED FOR MUSCLE SPASM, # 60 tablet, 0 Refills, Acute, 06/11/20 15:48:00 EST, [facility] #[id number], 180, cm, 03/04/20 8:59:00 EST, Height Start [...] 01/16/20 15:06:00 EDT, Route to Pharmacy Electronically, [facility] #[id number], 180, cm, 0... Start Date: 01/16/20 Status: Ordered Flomax 0.4 mg oral capsule 0.4 mg, 1, capsule, By Mouth, Daily, [facility] PER [facility] COTT[facility]LL, # 90 capsule, Refills 1, Tot. Refills 1, Maintenance, 01/16/20 15:08:00 EDT, Route to Pharmacy Electronically, [facility] #[id number], 180, cm, 12/03/19 13:50:00 EDT, Height Start Date: 01/16/20 Status: Ordered isosorbide mononitrate 30 mg oral tablet, extended release 1 tablet, By Mouth, Daily in AM, [facility] PER [facility] COTTRELL, # 90 tablet, 1 Refills, Maintenance, 01/16/20 15:07:00 EDT, [facility] #[id number], 180, cm, 12/03/19 13:50:00 EDT, Height Start Date: 01/16/20 Status: Ordered Lamictal 100 mg oral tablet 1 tablet = 100 mg, By Mouth, 2 times a day, 0 Refills, Maintenance, 12/16/14 12:57:08 Start Date: 12/16/14 Status: Ordered Lidoderm 5% film See Instructions, Apply to affected area Topically Daily remove patches after 12 hours REFAX TO [facility] PER DR COTTRELL, # 30 patch, 5 Refills, Maintenance, 01/16/20 15:07:00 EDT, [facility] #[id number], Apply to affected area Topically Thomas... Start Date: 01/16/20 Status: Ordered metoprolol 25 mg oral tablet 25 mg, 1, tablet, By Mouth, 2 times a day, [facility] PER [facility] COTTRELL, # 180 tablet, Refills 1, Tot. Refills 1, Maintenance, 01/16/20 15:08:00 EDT, Route to Pharmacy Electronically, [facility] #[id number], 180, cm, 12/03/19 13:50:00 EDT,... Start Date: 01/16/20 Status: Ordered nitroglycerin 0.4 mg sublingual tablet 1 tablet = 0.4 mg, Sublingual, Every 5 minutes, PRN for chest pain, # 100 tablet, 0 Refills, Maintenance, 04/10/20 15:29:00 EST, Tablet, [facility] #[id number], Partial fill upon patient requestif the prescription is for a schedule II opioid lisa... Start Date: 04/10/20 Status: Ordered oxybutynin 5 mg/24 hours oral tablet, extended release 1 tablet = 5 mg, By Mouth, Daily at bedtime, # 30 tablet, 3 Refills, Maintenance, 02/13/20 23:02:00EDT, ER Tablet, [facility] #[id number], 180, cm, 12/03/19 13:50:00 EDT, Height Start [...]
--- OUTSIDE RECORDS SUMMARY | 2023-12-30 12:56 | XMS_ITS | Continuity of Care Document ---
Author Organization [facility] ter Address [address] [place] [address]- Care Team Providers Care Retail Management Keyholder Name Role Phone Maria Esther URIAS, Balaji Quick Primary Care Physician [phone] Encounter [facility] [place] Date(s): 03/27/23 - 05/05/[address] [address]- Attending Physician: Rose HYATT, Key Han Admitting Physician: Rose HYATT, Key Han Referring Physician: Rose HYATT, Key Han Allergies, Adverse Reactions, Alerts Substance Reaction Severity [...] 23-valent vaccine 12/17/12 Recorded 1Result Comment: [02/15/2018] 91077-223-39 2Result Comment: [id number] 3Result Comment: [08/02/2017] [facility] 76974-923-11 Medications Aspirin Low Dose 81 mg oral delayed release tablet 1 tablet, By Mouth, Daily, # 90 tablet, 3 Refills, Maintenance, 11/08/22 11:19:00 EDT, [facility] #[id number], 184, cm, 11/03/22 11:28:00 EDT, Height, 106.3, kg, 09/13/22 12:30:00 EDT, Dry Weight Start Date: 11/08/22 Status: Ordered atorvastatin 80 mg oral tablet 1 tablet = 80 mg, By Mouth, Daily, # 90 tablet, 3 Refills, Maintenance, 12/05/22 4:30:00 EDT, Tablet, [facility] #[id number], Partial fill upon patient request if the prescription is for a schedule II opioid drug., 183, cm, 11/10/22 17:28:00 EDT,... Start Date: 12/05/22 Status: Ordered BuPROPion (Eqv-Wellbutrin SR) 150 mg/12 hours oral tablet, extended release 1 tablet = 150 mg, By Mouth, 2 times a day, # 180 tablet, 3 Refills, Maintenance, 10/05/21 17:37:00EDT, SR Tablet, [facility] #[id number], Partial fill upon patient request if the prescription is for a schedule II opioid drug., 182, cm, 09/10/21... Start Date: 10/05/21 Status: Ordered clopidogrel 75 mg oral tablet 1, tablet, By Mouth, Daily, # 90 tablet, Refills 3, Maintenance, 01/13/23 16:50:00 EDT, Route to Pharmacy Electronically, [facility] #[id number], 183, cm, 12/05/22 16:08:00 EDT, Height, 106.3, kg, 09/13/22 12:30:00 EDT, Dry Weight Start Date: 01/13/23 Status: Ordered Flonase 50 mcg/inh nasal spray 1 sprays = 50 mcg, Nares, Both, 2 times a day, # 16 Gm, 5 Refills, Maintenance, 09/15/22 8:26:00 EDT, Nasal [place], [facility] #[id number], Partial fill upon patient request if the prescription is for a schedule II opioid drug., 1 sprays Nares, Tolu... Start Date: 09/15/22 Status: Ordered FLUoxetine 40 mg oral capsule 1 capsule = 40 mg, By Mouth, Daily, # 90 capsule, 3 Refills, Maintenance, 10/05/21 17:34:00 EDT, Capsule, [facility] #[id number], Partial fill upon patient request if the [...] 11 Refills, Maintenance, 11/30/22 6:36:00 EDT, Tablet, [facility][id number], Partial fill upon patient requestif the prescription [...] capsule, 1 Refills, Maintenance, 09/28/22 9:21:00 EDT, [facility] #[id number], Partial fill upon patient request if the [...] 10/05/21 17:36:00 EDT, Route to Pharmacy Electronically, [facility] #[id number], Partial fillupon patient request if the prescription [...] Care Nurse Name: Esme Garcia RN Position: [facility] RN [...] Primary Care Member Role: PCP Address: Address: [address] [place] [address]- [place] Care Team Related Persons Name: ROSANA NAGY Address: home [address] [place] [id number] Name: GORAN QUINTERO
--- OUTSIDE RECORDS SUMMARY | 2023-12-30 12:56 | XMS_ITS | Continuity of Care Document ---
Author Organization [facility] Address [address] [place] [address]- Care Team Providers Care Orthopaedic Doctor Name Role Phone Maria Esther URIAS, Balaji Quick Primary Care Physician Encounter [facility] [place] Date(s): 06/02/22 - 08/07/22 [facility] [address] [place], [place] [address] Attending Physician: Hope Dover NP Admitting Physician: Hope Dover NP Referring Physician: Hope Dover NP Allergies, Adverse Reactions, [...] pneumococcal 23-valent vaccine 12/17/12 Recorded 1Result Comment: [id number] 2Result Comment: [02/15/2018] 30302-052-20 3Result Comment: [08/02/2017] [facility] 26360-076-83 Medications aspirin 81 mg oral delayed release tablet = 81 mg, By Mouth, Daily, # 90 tablet, 3 Refills, Maintenance, 10/05/21 17:34:00 EDT, EC Tablet, [facility] #[id number], Partial fill upon patient request if the prescription is for a schedule II opioid drug., 182, cm, 09/10/21 8:13:00 EDT, Heigh... Start Date: 10/05/21 Status: Ordered atorvastatin 80 mg oral tablet 1 tablet = 80 mg, By Mouth, Daily, # 90 tablet, 3 Refills, Maintenance, 10/05/21 17:34:00 EDT, Tablet, [facility] #[id number], Partial fill upon patient request if the prescription is for a schedule II opioid drug., 182, william, 09/10/21 8:13:00 EDT,... Start Date: 10/05/21 Status: Ordered BuPROPion (Eqv-Wellbutrin SR) 150 mg/12 hours oral tablet, extended release 1 tablet = 150 mg, By Mouth, 2 times a day, # 180 tablet, 3 Refills, Maintenance, 10/05/21 17:37:00EDT, SR Tablet, [facility] #[id number], Partial fill upon patient request if the prescription is for a schedule II opioid drug., 182, william, 09/10/21... Start Date: 10/05/21 Status: Ordered clopidogrel 75 mg oral tablet 1, tablet, By Mouth, Daily, # 90 tablet, Refills 3, Tot. Refills 3, Maintenance, 10/05/21 17:34:00 EDT, Route to Pharmacy Electronically, [facility] #[id number], 182, cm, 09/10/21 8:13:00 EDT, Height, 102.7, kg, 09/08/21 16:41:00 EDT, Dry Weight Start Date: 10/05/21 Status: Ordered Flonase 50 mcg/inh nasal spray 1 sprays = 50 mcg, Nares, Both, 2 times a day, # 16 Gm, 5 Refills, Maintenance, 09/29/20 16:49:00 EDT, Nasal [place], [facility] #[id number], Partial fill upon patient request if the prescription is for a schedule II opioid drug., 1 sprays Scottie, B... Start Date: 09/29/20 Status: Ordered Fluoxetine = 50 mg, By Mouth, Daily, 0 Refills, Maintenance, 06/29/22 15:47:00 EST, Partial fill upon patient request if the prescription is for a schedule II opioid drug. Start Date: 06/29/22 Status: Ordered FLUoxetine 40 mg oral capsule 1 capsule = 40 mg, By Mouth, Daily, # 90 capsule, 3 Refills, Maintenance, 10/05/21 17:34:00 EDT, Capsule, [facility] #[id number], Partial fill upon patient request if the prescription is for a schedule II opioid drug., 182, cm, 09/10/21 8:13:00 E... Start Date: 10/05/21 Status: Ordered isosorbide mononitrate 30 mg oral tablet, extended release 1 tablet = 30 mg, By Mouth, Daily in AM, # 90 tablet, 3 Refills, 10/05/21 17:35:00 EDT, [facility] #[id number], 182, cm, 09/10/21 8:13:00 EDT, Height, 102.7, kg, 09/08/21 16:41:00 EDT, Dry Weight Start Date: 10/05/21 Status: Ordered lamotrigine 25 mg oral tablet 100 mg, 4, tablet, By Mouth, 2 times a day, # 720 tablet, Refills 3, Tot. Refills 3, Maintenance, 10/06/21 14:57:00 EDT, Route to Pharmacy Electronically, [facility] #[id number], Partial fill upon patient request if the [...] 06/06/22 14:13:00 EST, Route to Pharmacy Electronically, [facility] #[id number],Partial fill upon patient request if the prescripti... [...] 10/05/21 17:36:00 EDT, Route to Pharmacy Electronically, [facility] #[id number], Partial fillupon patient request if the prescription [...] Team Personnel Name: Wild Woods RN Position: [facility] ED RN W/OE and Tasks Member Role: Primary Care Nurse Name: Camila Vazquez RN Position: [facility] RN Member Role: Primary Care Nurse Name: Amanda Garibay RN Position: [facility] RN Member Role: Primary Care Nurse Name: Mary Roberson RN Position: [facility] RN Member Role: Primary Care Nurse Name: Tomas Stauffer RN Position: [facility] RN Member Role: Primary Care Nurse Name: Balaji Mayo MD Position: [facility] Primary Care Physician Member Role: PCP Address: Address: [address] [place] [address] [place] [address]- Care Team Related Persons Name: ROSANA NAGY Address: home [address] [place] [address] Name: GORAN QUINTERO
--- OUTSIDE RECORDS SUMMARY | 2023-12-30 12:56 | XMS_ITS | Continuity of Care Document ---
Author Organization [facility] Address [address] [place] [address]- Care Team Providers Care Fashion Director Name Role Phone Maria Esther URIAS, Balaji Quick Primary Care Physician Encounter [facility] [place] Date(s): 08/18/20 - 09/17/20 [facility] [address] [place], [place] [address] Allergies, Adverse Reactions, Alerts Substance Reaction [...] acel(Tdap) 2 08/02/17 Given 1Result Comment: [02/15/2018] 87245-587-09 2Result Comment: [08/02/2017] [facility] 10496-452-47 Medications amLODIPine 5 mg oral tablet 2.5 [...] 09/14/20 12:44:00 EDT, Route to Pharmacy Electronically, [facility] #[id number], 180, cm, 09/07/20 10:33:00 EDT, Height Start Date: 09/14/20 Status: Ordered cyclobenzaprine 5 mg oral tablet 1 tablet = 5 mg, By Mouth, 3 times a day, PRN Pain , Moderate, for 10 days, # 30 tablet, 1 Refills,Acute 09/27/20 16:55:00 EDT, 09/07/20 16:55:00 EDT, Tablet, [facility], Partial fill upon patient request if the prescription is for a schedule... Start Date: 09/07/20 Stop Date: 09/27/20 Status: Ordered cyclobenzaprine 5 mg oral tablet 1 tablet = 5 mg, By Mouth, 2 times a day, PRN Pain , Moderate, for 14 days, Replaces previous prescription, # 28 tablet, 5 Refills, Acute 12/20/20 16:55:00 EDT, 09/27/20 16:55:00 EDT, Tablet, [facility], Partial fill upon patient request if [...] 09/13/20 6:59:00 EDT, Route to Pharmacy Electronically, [facility] #[id number], Partial fill upon patient request if the [...] tablet, 0 Refills, Maintenance, 09/14/20 12:44:00 EDT, [facility] #[id number], 180, cm, 09/07/20 10:33:00 EDT, Height Start [...] Maintenance, :58:00 EDT, Route to Pharmacy Electronically, [facility] #[id number], Partial fill upon patient request if the [...] Type Response Smoking Status Current [facility] [place] entered on: 02/15/18 Sex
--- OUTSIDE RECORDS SUMMARY | 2023-12-30 12:56 | XMS_ITS | Continuity of Care Document ---
Author Organization [facility] Rico Syed Aldair lt Address [address] [place] [address]- Care Team Providers Care Men'S Basketball Coach Name Role Phone Maria Esther URIAS, Balaji Quick Primary Care Physician Encounter [facility] Date(s): 08/14/23 - 09/13/23 [facility] Rico Chaoley Adult [address] [place] [address]- Allergies, Adverse Reactions, Alerts Substance Reaction Severity [...] 23-valent vaccine 12/17/12 Recorded 1Result Comment: [02/15/2018] 39017-126-36 2Result Comment: [id number] 3Result Comment: [08/02/2017] [facility] 10054-056-99 Medications Aspirin Low Dose 81 mg oral delayed release tablet 1 tablet, By Mouth, Daily, # 90 tablet, 3 Refills, Maintenance, 11/08/22 11:19:00 EDT, [facility] #[id number], 184, cm, 11/03/22 11:28:00 EDT, Height, 106.3, kg, 09/13/22 12:30:00 EDT, Dry Weight Start Date: 11/08/22 Status: Ordered atorvastatin 80 mg oral tablet 1 tablet = 80 mg, By Mouth, Daily, # 90 tablet, 3 Refills, Maintenance, 08/18/23 16:03:00 EDT, Tablet, [facility] #[id number], Partial fill upon patient request if the prescription is for a schedule II opioid drug., 183, cm, 08/09/23 10:49:00 EDT... Start Date: 08/18/23 Status: Ordered BuPROPion (Eqv-Wellbutrin SR) 150 mg/12 hours oral tablet, extended release 1 tablet = 150 mg, By Mouth, 2 times a day, # 180 tablet, 3 Refills, Maintenance, 10/05/21 17:37:00EDT, SR Tablet, [facility] #[id number], Partial fill upon patient request if the prescription is for a schedule II opioid drug., 182, cm, 09/10/21... Start Date: 10/05/21 Status: Ordered clopidogrel 75 mg oral tablet 1, tablet, By Mouth, Daily, # 90 tablet, Refills 3, Tot. Refills 3, Maintenance, 08/18/23 16:03:00 EDT, Route to Pharmacy Electronically, [facility] #[id number], 183, cm, 08/09/23 10:49:00 EDT, Height, 107, kg, 01/26/23 19:57:00 EDT, Dry Weight Start Date: 08/18/23 Status: Ordered FLUoxetine 40 mg oral capsule 1 capsule = 40 mg, By Mouth, Daily, # 90 capsule, 3 Refills, Maintenance, 10/05/21 17:34:00 EDT, Capsule, [facility] #[id number], Partial fill upon patient request if the prescription is for a schedule II opioid drug., 182, cm, 09/10/21 8:13:00 E... Start Date: 10/05/21 Status: Ordered fluticasone 50 mcg/inh nasal spray 1 sprays = 50 mcg, Nares, Both, 2 times a day, PRN allergies, # 16 Gm, 11 Refills, Maintenance, 08/18/23 16:05:00 EDT, [place], [facility] #[id number], Partial fill upon patient request if the [...] 11 Refills, Maintenance, 08/18/23 16:04:00 EDT, Tablet, [facility] #[id number], Partial fill upon patient request if the prescription is for a schedule II opioid dr... Start Date: 08/18/23 Status: Ordered Norvasc 2.5 mg oral tablet 2.5 mg, 1, tablet, By Mouth, Daily, # 90 tablet, Refills 3, Tot. Refills 3, Maintenance, 08/18/23 16:02:00 EDT, Route to Pharmacy Electronically, [facility] #[id number], Partial fill upon patient request if the prescription is for a schedule II o... Start Date: 08/18/23 Status: Ordered omeprazole 20 mg oral enteric coated capsule 1 capsule = 20 mg, By Mouth, Daily, # 90 capsule, 3 Refills, Maintenance, 08/18/23 16:04:00 EDT, [facility] #[id number], Partial fill upon patient request if the [...] 08/18/23 16:01:00 EDT, Route to Pharmacy Electronically, [facility] #[id number] Tablet, Partial fill upon ani... Start Date: 08/18/23 Stop Date: 08/17/24 Status: Ordered traZODone 100 mg oral tablet 200 mg, 2, tablet, By Mouth, Daily at bedtime, # 180 tablet, Refills 3, Tot. Refills 3, Maintenance, 10/05/21 17:36:00 EDT, Route to Pharmacy Electronically, [facility] #[id number], Partial fillupon patient request if the prescription [...] Care Nurse Name: Esme Garcia RN Position: [facility] RN Member Role: Primary Care Nurse Name: Erich Dias RN Position: [facility] RN Member Role: Primary Care Nurse Name: Camila Vazquez RN Position: [facility] RN Member Role: Primary Care Nurse Name: Taylor Beck RN Position: [facility] RN Member Role: Primary Care Nurse Name: Amanda Moraes RN Position: [facility] RN Member Role: Primary Care Nurse Name: Mary Roberson RN Position: [facility] RN Member Role: Primary Care Nurse Name: Tomas Stauffer RN Position: [facility] RN Member Role: Primary Care Nurse Name: Balaji Mayo MD Position: [facility] Physician - Primary Care Member Role: PCP Address: Address: [address] [place] [address]- [place] Care Team Related Persons Name: ROSANA NAGY Address: home [address] [place] [address] Name: GORAN QUINTERO
--- OUTSIDE RECORDS SUMMARY | 2023-12-30 12:56 | XMS_ITS | Continuity of Care Document ---
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 Name Role Phone Maria Esther URIAS, Balaji Quick Primary Care Physician [phone] Encounter [facility] Date(s): 11/09/22 - 11/11/[address] [address]- Discharge Disposition: A-D/C Home Attending Physician: Yolanda Kerr MD Admitting Physician: Jeffery URIAS, Jace Referring Physician: Not on Staff, Referring MD [...] pneumococcal 23-valent vaccine 12/17/12 Recorded 1Result Comment: [id number] 2Result Comment: [02/15/2018] [id number] 3Result Comment: [08/02/2017] [facility] [id number] Medications amLODIPine 10 mg oral tablet 10 mg, 1, tablet, By Mouth, Daily, # 90 tablet, Refills 3, Tot. Refills 3, Maintenance, 10/26/22 13:35:00 EDT, Route to Pharmacy Electronically, [facility] #[id number], Partial fill upon patientrequest if the prescription is for a schedule II op... Start Date: 10/26/22 Status: Ordered Aspirin Low Dose 81 mg oral delayed release tablet 1 tablet, By Mouth, Daily, # 90 tablet, 3 Refills, Maintenance, 11/08/22 11:19:00 EDT, [facility] #[id number], 184, cm, 11/03/22 11:28:00 EDT, Height, 106.3, kg, 09/13/22 12:30:00 EDT, Dry Weight Start Date: 11/08/22 Status: Ordered atorvastatin 80 mg oral tablet 1 tablet = 80 mg, By Mouth, Daily, # 90 tablet, 3 Refills, Maintenance, 10/05/21 17:34:00 EDT, Tablet, [facility] #[id number], Partial fill upon patient request if the prescription is for a schedule II opioid drug., 182, cm, 09/10/21 8:13:00 EDT,... Start Date: 10/05/21 Status: Ordered BuPROPion (Eqv-Wellbutrin SR) 150 mg/12 hours oral tablet, extended release 1 tablet = 150 mg, By Mouth, 2 times a day, # 180 tablet, 3 Refills, Maintenance, 10/05/21 17:37:00EDT, SR Tablet, [facility] #[id number], Partial fill upon patient request if the prescription is for a schedule II opioid drug., 182, cm, 09/10/21... Start Date: 10/05/21 Status: Ordered clopidogrel 75 mg oral tablet 1, tablet, By Mouth, Daily, # 90 tablet, Refills 0, Maintenance, 10/07/22 6:36:00 EDT, Route to Pharmacy Electronically, [facility] #[id number], 184, cm, 09/28/22 9:02:00 EDT, Height, 106.3, kg,09/13/22 12:30:00 EDT, Dry Weight Start Date: 10/07/22 Status: Ordered Flonase 50 mcg/inh nasal spray 1 sprays = 50 mcg, Nares, Both, 2 times a day, # 16 Gm, 5 Refills, Maintenance, 09/15/22 8:26:00 EDT, Nasal [place], [facility] #[id number], Partial fill upon patient request if the [...] 3 Refills, Maintenance, 10/05/21 17:34:00 EDT, Capsule, [facility] #[id number], Partial fill upon patient request if the prescription is for a schedule II opioid drug., 182, cm, 09/10/21 8:13:00 E... Start Date: 10/05/21 Status: Ordered isosorbide mononitrate 30 mg oral tablet, extended release 1 tablet, By Mouth, Daily in AM, # 90 tablet, 3 Refills, Maintenance, 10/20/22 16:40:00 EDT, [facility] #[id number], 184, cm, 09/28/22 9:02:00 EDT, Height, 106.3, [...] tablet, 5 Refills, Maintenance, 09/18/22 18:55:00 EDT, [facility] #[id number], 184, cm, 09/15/22 9:12:00 EDT, Height, 106.3, [...] capsule, 1 Refills, Maintenance, 09/28/22 9:21:00 EDT, [facility] #[id number], Partial fill upon patient request if the [...] 10/05/21 17:36:00 EDT, Route to Pharmacy Electronically, [facility] #[id number], Partial fillupon patient request if the prescription [...] Exam Date Time Procedure Performing Provider Status 11/10/22 2:[address] Abd/Pelvis W/ IV Contrast Only Marizol Ramey; Auth (Verified) Notes: (CT Abd/Pelvis W/ IV Contrast Only) Reason For Exam: LLQ abdominal pain;Other: RESULT: CT Abd/Pelvis W/ IV Contrast Only CT Abd/Pelvis W/ IV Contrast Only Hx of Present Illness: Midsternal CP x 3 days, associated with indigestion, states pain is sharp and sometimes radiates to L arm. Extensive cardiac hx.; Reason: Other:; LLQ abdominal pain; Clinical Question(s): Abscess; Order Comment: TECHNIQUE: Spiral CT through the abdomen and pelvis with IV contrast formatted in 3 planes. 100 cc of Omnipaque 300 was administered intravenously. This study was performed without oral contrast. Weight-based protocol using automatic tube modulation was used to optimize exposure parameters. CTDIvol Body: 20.20 mGy, DLP Body: 1166 mGy*cm. COMPARISON: 02/11/2022 and multiple priors FINDINGS: Animal Care Attendant View Findings, Lines and Tubes: None. Visualized Chest: Mild linear atelectasis scarring in the lingula. Minimal dependent atelectasis. No focal consolidation. No pleural effusion. Moderate coronary artery calcifications. Normal cardiac size upper. No pericardial effusion. Diaphragm: Normal. Liver: Normal in size and attenuation. Focal fatty infiltration focal fat infiltration versus variant perfusion adjacent to the falciform ligament. Gallbladder: No CT evidence of gallbladder pathology. Bile ducts: No biliary ductal dilation. Spleen: Normal. Pancreas: Moderate fatty atrophy of the parenchyma. Adrenal glands: Minimal thickening of the adrenal glands bilaterally is similar to the prior study. Kidneys and ureters: No hydronephrosis, stones, or suspicious masses. Small hypodensities that are too small to characterize are noted, requiring no dedicated follow up. Bladder: Normal. Reproductive organs: Unremarkable. Stomach, small bowel, and large bowel: Moderate stool retention in the rectum, sigmoid colon and ascending colon. No evidence of obstruction or inflammation. Appendix: Normal. Peritoneum and retroperitoneum: No ascites or pneumoperitoneum. No omental or mesenteric lesions. Lymph nodes: No enlarged lymph nodes. Blood vessels: Severe atherosclerotic vascular calcification. 5.0 cm infrarenal aortic aneurysm with extensive peripheral thrombosis. This previously measured 4.8 cm on 02/11/2022. Diffuse mural thrombus traverses and occludes the origin of the DONNA which immediately reconstitutes. Atherosclerotic calcifications at the origin of both renal arteries. A left renal stent is noted. No evidence of venous thrombosis. Abdominal and pelvic wall: Fat-containing bilateral inguinal hernia. Bones: Similar, moderate degenerative changes at the thoracolumbar spine. IMPRESSION: 1. No evidence of acute pathology in the abdomen and pelvis. 2. Moderate stool retention in the rectum and colon. 3. A 5.0 cm infrarenal aortic aneurysm with extensive peripheral thrombosis is noted. This is slightly increased in size from the prior study which time it measured approximately 4.8 cm. Recommend follow-up ultrasound or CTA in 6 months AND surgical consultation per simplified ACR and SVS guidelines. Reference: Lucrecia EL et al. J Vasc Surg 2018; 67:2-77. Society for Vascular Surgery 2018 practice guidelines on the care of patients with an abdominal aortic aneurysm. I have personally reviewed the images and I agree with this report. WSN: [id number] Ordering Physician: Chetna Barron Dictated By: Rocio Rosa MD Dictated Date/Time: 11/10/22 3:04 pm Reviewed By: Kaushal Santa MD Signed By: Kaushal Santa MD Signed Date/Time: 11/10/22 3:09 pm Transcribed By: JOSEPH Transcribed Date/Time: 11/10/22 2:26 pm * Exam Date Time Procedure Performing Provider Status 11/09/22 11:16 PM Chest 2 Views Frontal and Lat Jason Brown; Marielle (Verified) Notes: (Chest 2 Views Frontal and Lat) Reason For Exam: Chest Pain;Other: RESULT: Chest 2 Views Frontal and Lat Chest 2 Views Frontal and Lat Hx of Present Illness: Midsternal CP x 3 days, associated with indigestion, states pain is sharp and sometimes radiates to L arm. Extensive cardiac hx.; Reason: Other:; Chest Pain; Clinical Question(s): Other: COMPARISON: 10/27/2021 FINDINGS: LINES AND TUBES: None. LUNGS AND PLEURA: Clear lungs. Normal pulmonary vascularity. No pleural effusion. No pneumothorax. HEART, MEDIASTINUM AND CHRIS: Heart is normal in size. Normal mediastinal and hilar contour. BONES AND SOFT TISSUES: No acute abnormality. IMPRESSION: No acute abnormality. WSN: [id number] Ordering Physician: Ibrahima Okeefe Dictated By: Charli Greenberg MD Dictated Date/Time: 11/09/22 11:27 p Reviewed By: Charli Greenberg MD Signed By: Charli Greenberg MD Signed Date/Time: 11/09/22 11:27 pm Transcribed By: JOSEPH Transcribed Date/Time: 11/09/22 11:27 pm Vital Signs Most recent to oldest [Reference Range]: 1 2 3 Height 183 cm (11/10/22 5:28 PM) 183 cm (11/10/22 2:16 PM) 183 cm (11/09/22 10:26 PM) Weight 105.5 kg (11/10/22 5:28 PM) 105.5 kg (11/10/22 2:16 PM) 105.5 kg (11/09/22 10:26 PM) Oxygen Saturation [94-100 %] 97 % (11/11/22 9:51 AM) 98 % (11/11/22 7:02 AM) 98 % (11/11/22 4:50 AM) Pulse Rate [55-90 bpm] 68 bpm (11/11/22 9:51 AM) 53 bpm *L* (11/11/22 7:02 AM) 60 bpm (11/11/22 4:50 AM) Body Mass Index [18.5-24.99 kg/m2] 31.5 kg/m2 *>HHI* (11/10/22 5:28 PM) 31.5 kg/m2 *>HHI* (11/10/22 2:16 PM) 31.5 kg/m2 *>HHI* (11/09/22 10:20 PM) Blood Pressure [90-138/55-84 mm Hg] 128/82mm Hg (11/11/22 9:51 AM) 147/58mm Hg *H* (11/11/22 7:02 AM) 115/94mm Hg (11/11/22 4:50 AM) Respiratory Rate [16-30 br/min] 14 br/min *L* (11/11/22 9:51 AM) 16 br/min (11/11/22 7:02 AM) 16 br/min (11/11/22 4:50 AM) Temperature [96.8-100.4 DegF] 98 DegF (11/10/22 11:38 PM) 98 DegF (11/10/22 10:37 PM) 97.5 DegF (11/10/22 5:28 PM) Mode of Delivery (Oxygen) Room air (11/11/22 9:51 AM) Room air (11/11/22 7:02 AM) Room air (11/11/22 4:50 AM) Blood pressure sites Arm, right (11/11/22 9:51 AM) Arm, right (11/11/22 7:02 AM) Arm, right (11/11/22 4:50 AM) Temperature Route Oral (11/10/22 11:38 PM) Oral (11/10/22 10:37 PM) Oral (11/10/22 5:28 PM) Weight Obtained Via Patient/family state d (11/09/22 10:20 PM) Social History Social History Type Response Smoking Status Current some day [facility] entered on: 02/15/18 Sex Admission evaluation note * Michi Guevara DO: PERFORM, MODIFY Event Display: Admission Note Authored Date: [id number] Patient: ??EDWARD NAGY ? Age:??67 Years?Sex:??Male?:??1955?? Chief Complaint/Reason for Consultation chest pain History of Present Illness The patient is a 67-year-old male with a past medical history of coronary artery disease with LAD stent in 2010 with restenosis in 2010 with need of 2 overlapping drug-eluting stents, procedure was then complicated by postprocedural stroke and MRI showed embolic watershed strokes, history of hypertension, carotid artery stenosis, subclavian stenosis, AAA, hyperlipidemia, CKD stage III, schizoaffective disorder. Previously had undergone stress testing in June 2020 which had shown no ischemia and then recently was in the hospital in August 2022 where at that time again he had a nuclear stress test which was negative for ischemia.?? Patient presents now 11/10/2022 with the report that yesterday 11/09/2022 he was on his couch watching TV when he experienced sudden onset diffuse chest pressure like a weight of 1000 bricks on his chest.?? The pain radiated to his left arm and he became sweaty nauseous which felt like previous heart attacks.?? Patient reports he took nitro without relief and came to the emergency department. In the ED labs were notable for creatinine of 1.7 which is improved from baseline, troponin of 8 followed by 7 followed by 9 with an NT proBNP of 418. EKG shows normal sinus rhythm with probable LVH based off of R wave in aVL, some nonspecific ST changes all of which are the same as his EKG in January 2022. Patient had a CT abdomen pelvis in the emergency department that showed no evidence of acute pathology in the abdomen or pelvis, moderate stool retention in the rectum and colon, 5.0 cm infrarenal aortic aneurysm with extensive peripheral thrombus noted.?? This is slightly increased in size from the prior study which at that time measured 4.8 cm. Per the cardiology note in August 2022 the patient also recently had an echocardiogram at [place] which showed an ejection fraction estimated about 65% with mild LVH.?? Possible basilar inferior hypokinesis.?? Normal RV function.?? Left atrium severely dilated.?? Right atrium mildly dilated.?? No significant valvular disease. ?? At the time my exam patient laying??comfortably in bed in the emergency department.?? Patient reports he has been having this ongoing chest pain??for months to years.?? He reports??at home when this happens he sometimes will take the dog outside and sit outside and will help the chest discomfortgo away.?? At the time of my exam when I asked the patient to take a deep breath??this??reportedly caused chest pain and caused him to have a coughing fit.?? Additionally when I pressed on the area that he said was painful patient jumped back in the bed??reportedly due to the pain I had caused by pressing on his chest.?? He reports that nitro also sometimes helps the pain.?? At the time of my exam patient denied vomiting but did endorse nausea. ??Denied diaphoresis, lightheadedness, dizziness, headaches. ??Did endorse some shortness of breath on exertion, no shortness of breath at rest.?? Patient is euvolemic on exam. Review of Systems Please refer to those mentioned in HPI, all other systems reviewed and are negative Objective Measurements?? Height: 183 cm (11/10/22) Weight: 105.5 kg (11/10/22) Body Mass Index:??31.5 kg/m2??Critical (11/10/22) ? Vital Signs?? Temperature: 97.5 DegF (11/10/22 17:28:00) Temperature Route: Oral (11/10/22 17:28:00) Pulse Rate: 78 bpm (11/10/22 17:28:00) Respiratory Rate:??13 br/min??Low (11/10/22 17:28:00) Systolic Blood Pressure: 134 mm Hg (11/10/22 17:28:00) Diastolic Blood Pressure:??97 mm Hg??High (11/10/22 17:28:00) Blood pressure sites: Arm, right (11/10/22 17:28:00) Mean Arterial Pressure: 109 mm Hg (11/10/22 17:28:00) Pulse Pressure: 37 mm Hg (11/10/22 17:28:00) Oxygen Saturation:??93 %??Low (11/10/22 17:28:00) Mode of Delivery (Oxygen): Room air (11/10/22 17:28:00) Early Warning Score: 4 (11/10/22 17:29:12) ? Physical Exam General:??Patient in no acute distress?? HEENT:??normocephalic, atraumatic, PERRLA, EOMI, moist mucous membranes with no oral lesions. No lymphadenopathy or thyromegaly appreciated. Respiratory:??bilateral equal air entry, clear to auscultation with no wheezes or crackles. Adequate respiratory rate and effort on room air. CVS:??regular rate and rhythm, S1 and S2 present, no murmurs, rubs or gallops. No JVD.?Chest pain on palpation of the chest. Abdomen:??soft, non tender, non distended, bowel sounds present, no organomegaly. Extremities:??no cyanosis, pulses present and equal bilaterally. No edema noted b/l.?? Neuro:??alert and oriented x3. Cranial nerves II-XII grossly intact. Moving all extremities spontaneously. Normal tones, following simple commands.?? Derm:??No signs of infection, surrounding skin is intact with no evidence of erythema, no purulent discharge, no tenderness Psych:??Normal mood and affect? Assessment/Plan Assessment:??The patient is a 67-year-old male with a past medical history of coronary artery disease with LAD stent in 2010 with restenosis in 2010 with need of 2 overlapping drug-eluting stents, procedure was then complicated by postprocedural stroke and MRI showed embolic watershed strokes, history of hypertension, carotid artery stenosis, subclavian stenosis, AAA, hyperlipidemia, CKD stage III, schizoaffective disorder. ? Non-cardiac chest pain (R07.89):?? H/O: CVA (cerebrovascular accident) (Z86.73):?? HLD (hyperlipidemia) (E78.5):?? HTN (hypertension) (I10):?? CAD (coronary artery disease) (I25.10):?? Carotid stenosis (I65.29):?? Patient presents with likely noncardiac chest pain.?? He has reproducible chest pain??on exam, chest pain also worsens with deep inspiration.?? This could be secondary to musculoskeletal, costochondritis, pericarditis.?? Patient's kidney function limits??medication usage??for treatment of this.?? Although the patient has numerous risk factors and known coronary artery disease with previous stenting??chest pain??is not consistent with angina, he has a??reported normal echocardiogram at [facility]??in August 2022 as well as a normal stress test??here at [facility] in August 2022.?? At this time it does not seem any further cardiac work-up would be indicated. Plan: ?Continue amlodipine, aspirin, atorvastatin, clopidogrel, Imdur, metoprolol ?Would try to arrange follow-up outpatient with [facility] ???Would trial Tylenol for the pain,??if still ongoing can consider??renally dosed colchicine for possible costochondritis ? AAA (abdominal aortic aneurysm) (I71.40):?CT abdomen pelvis shows 5.0 cm infrarenal aortic aneurysm with extensive peripheral thrombus.?? Consider vascular surgery consult in the morning inpatient versus outpatient ?? CKD (chronic kidney disease) (N18.9):??Avoid nephrotoxic medications, renally dose medications ?? Chronic schizoaffective disorder (F25.9):??Continue Wellbutrin,??quetiapine, trazodone, lamotrigine ? Code Status:??FULL ?Order Code Status:??Code Status Ordered ?? Patient case and plan discussed with Dr. Miguel Guevara, DO ? Histories Allergies Allergies ?(Active and Proposed [...] administer his medications. ??Shirley at [facility] [phone] Exercise Details:??Self assessment: Poor condition. Home/Environment Details:??Living situation: Home with assistance. Nutrition/Health Details:??Diet: Regular. Sexual Details:??Sexually involved in last 6 months: No. ??Sexual orientation: Homosexual. Substance Abuse Details:??Use: Never. Tobacco Details:??Current some day smoker Details:??Current some day smoker, Tobacco user in household: No. ??Other: pt states that he [id number] month. ? Family History Mother: CAD - [...] oral tablet)?100?Milligram?1?tablet?By Mouth?2 times a day Metoprolol (Metoprolol Tartrate 25 mg oral tablet)?1?tab(s)?By Mouth?2 times a day?INCREASE IN DOSE Nitroglycerin (Nitrostat 0.4 mg sublingual tablet)?1?tab(s)?0.4?Milligram?Sublingual?Every 5 minutes?prn Omeprazole (omeprazole 20 mg oral enteric coated capsule)?1?capsule?20?Milligram?By Mouth?Daily?for 30?Days Quetiapine (QUEtiapine 400 mg oral tablet, extended release)?400?Milligram?1?tablet?By Mouth?Daily at bedtime Trazodone (traZODone 100 mg oral tablet)?200?Milligram?2?tablet?By Mouth?Daily atbedtime ? Inpatient Medications Medications (20) Active SCHEDULED: (15) Amlodipine 10 mg Tablet (amLODIPine 10 mg oral tablet) ??10 mg, By Mouth, Daily Aspirin 81 mg EC Tablet (aspirin 81 mg oral delayed release tablet) ??81 mg, By Mouth, Daily Atorvastatin 80 mg Tablet (atorvastatin 80 mg oral tablet) ??80 mg, By Mouth, Daily BuPROPion 150 mg SR Tablet (BuPROPion (Eqv-Wellbutrin SR) 150 mg/12 hours oral tablet, extended release) ??150 mg, By Mouth, 2 times a day Clopidogrel 75 mg Tablet (clopidogrel 75 mg oral tablet) ??75 mg, By Mouth, Daily Fluoxetine 10 mg Capsule (FLUoxetine 10 mg oral capsule) ??10 mg, By Mouth, Daily Fluoxetine 20 mg Capsule (FLUoxetine 20 mg oral capsule) ??40 mg, By Mouth, Daily Fluticasone Propionate 50mcg/inh Nasal [place] (fluticasone 50 mcg/inh nasal spray) ??100 mcg 2 sprays, Nares, Both, Daily Isosorbide Mononitrate 30 mg ER Tablet (isosorbide mononitrate 30 mg oral tablet, extended release)??30 mg, By Mouth, Daily in AM LamoTRIGINE 100 mg Tablet (lamotrigine 100 mg oral tablet) ??100 mg, By Mouth, 2 times a day Metoprolol 25mg Tablet (metoprolol 25 mg oral tablet) ??25 mg, By Mouth, 2 times a day NaCl 0.9% Flush 3ml (NaCL 0.9% Flush) ??3 mL, IV Push, Every 8 hours Pantoprazole 20 mg EC Tablet (pantoprazole 20 mg oral delayed release tablet) ??20 mg, By Mouth, Daily Quetiapine 400mg XR Tablet (QUEtiapine 400 mg oral tablet, extended release) ??400 mg, By Mouth, Daily at bedtime Trazodone 50 mg Tablet (traZODone 50 mg oral tablet) ??200 mg, By Mouth, Daily at bedtime CONTINUOUS: (0) PRN: (5) Acetaminophen 325 mg Tablet (Acetaminophen Tablet) ??650 mg, By Mouth, Every 4 hours Melatonin 3 mg Tablet (Melatonin Tablet) ??3 mg, By Mouth, Daily at bedtime NaCl 0.9% Flush 3ml (NaCL 0.9% Flush) ??3 mL, IV Push, Every 8 hours Nitroglycerin 0.4 mg Sublingual Tablet (nitroglycerin 0.4 mg sublingual tablet) ??0.4 mg, Sublingual, Every 5 minutes Senna 8.6 mg / Docusate 50 mg tablet (Docusate/Senna Tablet) ??1 tablet, By Mouth, 2 times a day ? Consult note * Tomasa Woods MD: PERFORM Event Display: Consultation Note Authored Date: Patient: ??EDWARD NAGY ? Age:??67 Years?Sex:??Male?:??1955?? Chief Complaint/Reason for Consult Infrarenal AAA History of Present Illness Edward Nagy is??a 67 yo M with PMH of CAD s/p LAD stent 2010 c/b re- stenosis s/p 2 overlapping stents in 2020 c/b watershed CVA, CKD3, HTN, HLD, carotid, subclavian, and renal artery stenosis, and known AAA following with vascular surgery. He presented to ED evening of 11/09 with chest pain and nausea. EKG in ED showed normal sinus rhythm and trops were 8 and 7. His chest pain appears to be reproducible with deep breaths and palpation. He reports he has recently had a cough. CT abd/pelvis was performed and revealed 5cm infrarenal AAA with peripheral thrombus so vascular surgery was consulted. Of note, he has been seen in vascular surgery clinic for known AAA, most recently in August at [facility] time his AAA was measuring 4.8x4.7x4.6cm on aortoiliac duplex. On exam today he reports no abdominal pain. Has been ambulating and eating without trouble at home. Review of Systems General: No fevers, chills,??or weight loss HEENT: No vision changes, headache or sore throat Respiratory: No SOB, +cough Cardiac: +Chest discomfort Abdomen: No abdominal pain, nausea, vomiting, diarrhea, or constipation : No dysuria or??changes to urination Skin: No rashes, ulcers, or pruritus MSK: No myalgias or arthralgias Neuro: No weakness, numbness, or tingling Physical Exam Vitals & Measurements T:??98?F?? HR:??53??(Peripheral)?? RR:??16?? BP:??147/58?? SpO2:??98%?? HT:??183??cm?? WT:??105.5??kg?? BMI:??31.5?? General:??No acute distress,??well-appearing HEENT: Normocephalic, atraumatic, no scleral icterus, EOMI Cardiac:??Regular rate and rhythm Respiratory: Symmetric chest rise bilaterally,??no increased WOB Abdomen: Soft,??non-tender,??non-distended MSK: Moves all extremities, no deformities Skin: Warm and well perfused, no rashes Vascular: BLE palpable femoral, popliteal, AT, PT, and DP pulses ?? Assessment/Plan Edward Nagy is??a 67 yo M with PMH of CAD s/p LAD stent 2010 c/b re- stenosis s/p 2 overlapping stents in 2020 c/b watershed CVA, CKD3, HTN, HLD, carotid, subclavian, and renal artery stenosis, and known AAA following with vascular surgery. He presented to ED evening of 11/09 with chest pain and nausea. Vascular surgery was consulted after CT abd/pelvis showed increasing size of known AAA. Patient has been admitted to medicine for chest pain workup/management. ?? Recs: -He had recent aortoiliac duplex in July 2022 which measured his infrarenal AAA at 4.8x4.7x4.6cm -Given patient is asymptomatic at this time and has regular vascular surgical follow up he is appropriate to continue with outpatient monitoring -Will schedule follow up with repeat CTA abd/pelvis in 6 months ?? Please page??VASCULAR SURGERY [id number] with any questions or concerns.? Case discussed with attending physician: Dr. Olguin Problem List/Past Medical History Ongoing AAA (abdominal [...] 06/22/18 TURP - Transurethral resection of prostate Home Medications Amlodipine: 10 mg = 1 tablet, By Mouth, Daily Aspirin: 1 tablet, By Mouth, Daily Atorvastatin: 80 mg = 1 tablet, By Mouth, Daily BuPROpion: 150 mg = 1 tablet, By Mouth, 2 times a day Clopidogrel: 1 tablet, By Mouth, Daily Fluoxetine: 40 mg = 1 capsule, By Mouth, Daily Fluoxetine: 10 mg = 1 capsule, By Mouth, Daily Fluticasone Nasal: 50 mcg = 1 sprays, Nares, Both, 2 times a day Isosorbide Mononitrate: 1 tablet, By Mouth, Daily in AM Lamotrigine: 100 mg = 1 tablet, By Mouth, 2 times a day Metoprolol: 1 tablet, By Mouth, 2 times a day, INCREASE IN DOSE Nitroglycerin: 0.4 mg = 1 tablet, Sublingual, Every 5 minutes, prn Omeprazole: 20 mg = 1 capsule, By Mouth, Daily Quetiapine: 400 mg = 1 tablet, By Mouth, Daily at bedtime Trazodone: 200 mg = 2 tablet, By Mouth, Daily at bedtime Allergies Abilify Benadryl Claritin Clozaril Nicotine Patch Nuts Vistaril Social History Alcohol Use: Current. Frequency: 1-2 times per year. Employment/School Exercise Self assessment: Poor condition. Home/Environment Living situation: Home with assistance. Nutrition/Health Diet: Regular. Sexual Sexually involved in last 6 months: No. Sexual orientation: Homosexual. Substance Abuse Use: Never. Tobacco Current some day smoker Family History Mother: CAD - Coronary artery disease; Hyperlipidemia; Hypertension Father: CAD - Coronary artery disease; Hyperlipidemia; Hypertension Lab Results Labs Last 24 Hours BLOOD COUNT & DIFF ? Event Name?? Event Result?? Date/Time?? WBC 10.9 k/mm3 11/11/22 04:42:00 RBC 4.58 m/mm3??Low 11/11/22 04:42:00 Hgb 14 Gm/dL 11/11/22 04:42:00 Hct 42.2 % 11/11/22 04:42:00 MCV 92.1 femtoliters 11/11/22 04:42:00 MCH 30.6 pg 11/11/22 04:42:00 MCHC 33.2 g/dL 11/11/22 04:42:00 Platelet Count 240 k/mm3 11/11/22 04:42:00 MPV 10.2 femtoliters 11/11/22 04:42:00 Nucleated RBC (Automated) 0 #/100 WBC'S 11/11/22 04:42:00 ? CHEM GENERAL ? Event Name?? Event Result?? Date/Time?? Sodium 139 mmol/L 11/11/22 04:42:00 Chloride 104 mmol/L 11/11/22 04:42:00 Bicarbonate Level 24 mmol/L 11/11/22 04:42:00 Anion Gap 11 11/11/22 04:42:00 BUN 14 mg/dL 11/11/22 04:42:00 Creatinine-Blood 1.4 mg/dL??High 11/11/22 04:42:00 Phosphorus 1.7 mg/dL??Low 11/11/22 04:42:00 Magnesium 2 mg/dL 11/11/22 04:42:00 ? * Clau URIAS, Donn Owens: PERFORM Event Display: Consultation Note Authored Date: 67 yo M with known AAA and small amount of interval growth on CT.?? At this point I would recommendrepeat CTA in 6 months.?? We will arrange this and see him in the office. Note * Cirilo URIAS, Yolanda: PERFORM Event Display: Discharge/Transfer Note Hospital Authored Date: Patient: ??EDWARD NAGY ? Age:??67 Years?Sex:??Male?:??1955?? Patient Information Discharge Location: [facility] Primary Care Physician: Balaji Mayo MD Admit Date/Time: 11/09/22 22:03 Discharge Disposition Discharge Disposition: Home: No Services Discharge Diagnosis ?? Chest pain AAA (abdominal aortic aneurysm) (I71.40) CAD (coronary artery disease) (I25.10) CKD (chronic kidney disease) (N18.9) Carotid stenosis (I65.29) Chronic schizoaffective disorder (F25.9) H/O: CVA (cerebrovascular accident) (Z86.73) HLD (hyperlipidemia) (E78.5) HTN (hypertension) (I10) Non-cardiac chest pain (R07.89) ?? _ Discharge Medications Amlodipine (amLODIPine 10 [...] oral tablet)?100?Milligram?1?tablet?By Mouth?2 times a day Metoprolol (Metoprolol Tartrate 25 mg oral tablet)?1?tab(s)?By Mouth?2 times a day?INCREASE IN DOSE Nitroglycerin (Nitrostat 0.4 mg sublingual tablet)?1?tab(s)?0.4?Milligram?Sublingual?Every 5 minutes?prn Omeprazole (omeprazole 20 mg oral enteric coated capsule)?1?capsule?20?Milligram?By Mouth?Daily?for 30?Days Quetiapine (QUEtiapine 400 mg oral tablet, extended release)?400?Milligram?1?tablet?By Mouth?Daily at bedtime Trazodone (traZODone 100 mg oral tablet)?200?Milligram?2?tablet?By Mouth?Daily atbedtime ? Quality Measures Tobacco Use Treatment:? Durable Medical Equipment Current home treatments: Other: medication management (09/15/22) On Admit VNA/Hospice/Home Care: [facility] [address] [facility] [phone] (09/14/22) Name of Agency #1: [facility] (09/15/22) Agency Biomedical Manager #1: intake (09/15/22) Service Categories #1: Retirement (09/15/22) Service Comments #1: Patient is active with [facility]. [facility]NA will resume services upon discharge; if you dont hear from them please call them directly. (09/15/22) Ambulatory devices needed: Cane (09/14/22) ? Medications Started none Allergies Allergies ?(Active and Proposed Allergies Only) Vistaril? (Severity: Unknown severity, Onset: Unknown) Nuts? (Severity: Unknown severity, Onset: Unknown) Nicotine Patch? (Severity: Unknown severity, Onset: Unknown) Abilify? (Severity: Unknown severity, Onset: Unknown) Claritin? (Severity: Unknown severity, Onset: Unknown) Benadryl? (Severity: Unknown severity, Onset: Unknown) Clozaril? (Severity: Unknown severity, Onset: Unknown) ? Objective Assessment and Plan 67-year-old male with a past medical history of coronary artery disease with LAD stent in 2011 withrestenosis in 2011 with need of 2 overlapping drug-eluting stents, procedure was then complicated by postprocedural stroke and MRI showed embolic watershed strokes, history of hypertension, carotid artery stenosis, subclavian stenosis, AAA, hyperlipidemia, CKD stage III, schizoaffective disorder presented with chest pain.?Chest pain (R07.89):?? H/O: CVA (cerebrovascular accident) (Z86.73):?? HLD (hyperlipidemia) (E78.5):?? HTN (hypertension) (I10):?? CAD (coronary artery disease) (I25.10):?? Carotid stenosis (I65.29):?? Patient presents with likely noncardiac chest pain.?? He has reproducible chest pain??on exam, chest pain also worsens with deep inspiration.?? This could be secondary to musculoskeletal, costochondritis, pericarditis.?? Although the patient has numerous risk factors and known coronary artery disease with previous stenting??chest pain??is not consistent with angina, he has a??reported normal echocardiogram at [facility]??in August 2022 as well as a normal stress test??here at [facility] in August 2022.?? At this time it does not seem any further cardiac work-up would be indicated. ??Chest pain unlikely from pericarditis as the?? intensity of pain has already improved ??Griseldaey costochondritis , continue PRN tylenol ?Continue amlodipine, aspirin, atorvastatin, clopidogrel, Imdur, metoprolol follow-up outpatient with [facility] as OP ? AAA (abdominal aortic aneurysm) (I71.40):?CT abdomen pelvis shows 5.0 cm infrarenal aortic aneurysm with extensive peripheral thrombus.? Consulted vacular this morning . as per vascular likely some inconsistencies in size across imaging modalities ,?? recommend F/u with vascular surgery in 6 months ?? CKD (chronic kidney disease) (N18.9):??Avoid nephrotoxic medications, renally dose medications ?? Chronic schizoaffective disorder (F25.9):??Continue Wellbutrin,??quetiapine, trazodone, lamotrigine ? . Physical Exam GENERAL: In no apparent distress HEENT: Head normocephalic, PERRL,Moist mucous membrane. Neck supple CARDIOVASCULAR: Normal rate and rhythm, no murmurs, no rubs, no gallops, mild tenderness in left chest wall RESPIRATORY: Lungs clear to auscultation, no wheezes , no crackles ABDOMEN/GI: Nondistended, soft, nontender, normal bowel sounds EXTREMITIES: No pitting edema PROFESSIONAL NURSING TUTOR: Alert and oriented x 3.Non focal neuro exam. PSYCHIATRIC: Calm and co-operative SKIN: Warm and dry. ? Consultants Vascular Pending Results No Pending Results Patient Education Titles Uncertain Causes of Chest Pain?? Follow-Up Appointments Added Follow Up ?Time Frame ?Comments [facility] cardiology?2 to 3 weeks?pl call office to schedule follow up Balaji Mayo MD?1 to 2 weeks Post Discharge Care Discharge ?11/11/22 9:20:00 EDT Discharge Prescriptions ?None, ??11/11/22 9:20:00 EDT Home Health Face to Face ^[facility] Results Discharge Labs BLOOD COUNT & DIFF WBC 10.9 k/mm3 ()?? 11/11/2022 04:42 RBC 4.58 m/mm3 (Low)?? 11/11/2022 04:42 Hgb 14.0 Gm/dL ()?? 11/11/2022 04:42 Hct 42.2 % ()?? 11/11/2022 04:42 MCV 92.1 femtoliters ()?? 11/11/2022 04:42 MCH 30.6 pg ()?? 11/11/2022 04:42 MCHC 33.2 g/dL ()?? 11/11/2022 04:42 Platelet Count 240 k/mm3 ()?? 11/11/2022 04:42 RDW-SD 47.1 femtoliters (High)?? 11/11/2022 04:42 MPV 10.2 femtoliters ()?? 11/11/2022 04:42 Nucleated RBC (Automated) 0.0 #/100 WBC'S ()?? 11/11/2022 04:42 Abs. NRBC 0.0 k/mm3 ()?? 11/11/2022 04:42 Abs. Neut 5.2 k/mm3 ()?? 11/09/2022 22:46 Abs. Lymph 2.8 k/mm3 ()?? 11/09/2022 22:46 Abs. Saline 0.7 k/mm3 ()?? 11/09/2022 22:46 Abs. Eo 0.4 k/mm3 ()?? 11/09/2022 22:46 Abs. Baso 0.1 k/mm3 ()?? 11/09/2022 22:46 Neut % 56.0 % ()?? 11/09/2022 22:46 Lymph % 30.0 % ()?? 11/09/2022 22:46 Saline % 7.7 % ()?? 11/09/2022 22:46 Eos % 4.6 % ()?? 11/09/2022 22:46 Baso % 1.0 % ()?? 11/09/2022 22:46 Imm Gran 0.7 % ()?? 11/09/2022 22:46 Abs. Imm Gran 0.1 k/mm3 ()?? 11/09/2022 22:46 ?? CARDIAC Nt-Probnp 418 pg/mL (High)?? 11/10/2022 12:47 High Sensitivity Troponin (HSTnT) 16 ng/L ()?? 11/10/2022 17:35 ?? CHEM GENERAL Sodium 139 mmol/L ()?? 11/11/2022 04:42 Potassium 3.9 mmol/L ()?? 11/11/2022 04:42 Chloride 104 mmol/L ()?? 11/11/2022 04:42 Bicarbonate Level 24 mmol/L ()?? 11/11/2022 04:42 Anion Gap 11 ()?? 11/11/2022 04:42 Glucose Level 143 mg/dL (High)?? 11/09/2022 22:46 BUN 14 mg/dL ()?? 11/11/2022 04:42 Creatinine-Blood 1.4 mg/dL (High)?? 11/11/2022 04:42 Estimated GFR Creatinine 56 ML/MIN/1.73 M2 ()?? 11/11/2022 04:42 Calcium 9.0 mg/dL ()?? 11/09/2022 22:46 Phosphorus 1.7 mg/dL (Low)?? 11/11/2022 04:42 Magnesium 2.0 mg/dL ()?? 11/11/2022 04:42 C-Reactive Protein 0.8 mg/dL (High)?? 11/11/2022 04:42 ? HEME OTHER Sed Rate 44 mm/hr (High)?? 11/11/2022 04:42 Hold Blue Top SPECIMEN DISCARDED AFTER 4 HOURS. ()?? 11/09/2022 22:46 ?? VIROLOGY COVID-19 by RT-PCR NEGATIVE ()?? 11/10/2022 17:23 ? 35_ minutes spent on discharge * Yolanda Kerr MD: SIGN, VERIFY, PERFORM Event Display: Patient Education Handout Authored Date: * Yolanda Kerr MD: PERFORM Event Display: Patient Education Leaflets Authored Date: Uncertain Causes of Chest Pain ?? [id number] Uncertain Causes of Chest Pain Chest pain can happen for a number of reasons. Sometimes the cause can't be determined. If your??condition does not seem serious, and your pain does not appear to be coming from your heart, your healthcare provider may recommend watching it closely. Sometimes the signs of a serious problem take more time to appear. Many problems not related to your heart can cause chest pain. These include: ??? Musculoskeletal. Costochondritis is an inflammation of the tissues around the ribs that can occur from trauma or overuse injuries, or a strain of the muscles of the chest wall. ??? Respiratory. Pneumonia, collapsed lung (pneumothorax), or inflammation of the lining of the chest and lungs (pleurisy). ??? Gastrointestinal. Esophageal reflux, heartburn, ulcers, or gallbladder disease. ??? Anxiety and panic disorders ??? Nerve compression and inflammation ??? Rare problems such as aortic aneurysm or aortic dissection (a swelling of the large artery coming out of the heart or a tear in the wall of the artery), or pulmonary embolism (a blood clot in the lungs). Home care After your visit, follow these recommendations: ??? Rest today and avoid strenuous activity. ??? Take any prescribed medicine as directed. ??? Be aware of any recurrent chest pain and notice any changes ?? Follow-up care Follow up with your healthcare provider if you don't start to feel better within 24 hours, or as advised. ?? Call 911 Call 911 if any of these occur: ??? A change in the type of pain: if it feels different, becomes more severe, lasts longer, or begins to spread into your shoulder, arm, neck, jaw or back ??? Shortness of breath or increased pain with breathing ??? Weakness, dizziness, or fainting ??? Rapid heartbeat ??? Crushing sensation in your chest ??? Coughing up more than a small amount of blood. ?? When to seek medical advice Call your healthcare provider right away if any of the following occur: ??? Cough with dark coloredsputum (phlegm) or small amount of blood ??? Fever of 100.4??F??(38??C) or higher, or as directed by your healthcare provider ??? Swelling, pain or redness in one leg ?? Last Reviewed Date: 2021 ?? [id number] [employer]. All rights reserved. This information is not intended as a substitute for professional medical care. Always follow your healthcare professional's instructions. ?? Patient Care team information Care Team Personnel Name: Wild Woods RN Position: [facility] ED RN W/OE and Tasks Member Role: Primary Care Nurse Name: Erich Dias RN Position: [facility] RN Member Role: Primary Care Nurse Name: Camila Vazquez RN Position: [facility] RN Member Role: Primary Care Nurse Name: Taylor Beck RN Position: [facility] RN Member Role: Primary Care Nurse Name: Amanda Garibay RN Position: [facility] RN Member Role: Primary Care Nurse Name: Mary Roberson RN Position: [facility] RN Member Role: Primary Care Nurse Name: Tomas Stauffer RN Position: [facility] RN Member Role: Primary Care Nurse Name: Balaji Mayo MD Position: [facility] Physician - Primary Care Member Role: PCP Address: Address: [address] [place] [id number]- Name: Fadumo Conti RN Position: [facility] RN Member Role: Primary Care Nurse Name: Cindi BATES Attending Position: [facility] ED Medicine MD Name: Junie Grove Position: [facility] ED TA [facility] Member Role: Patient Care Provider Name: Willa Medina RN Position: [facility] ED RN W/OE and Tasks Member Role: Patient Care Provider Care Team Related Persons Name: ROSANA NAGY Address: [address] [address] Name: GORAN QUINTERO
--- OUTSIDE RECORDS SUMMARY | 2023-12-30 12:56 | XMS_ITS | Continuity of Care Document ---
Author Organization [facility] Address [address] [place] [address]- Care Team Providers Care Exhibit Electrician Name Role Phone Maria Esther URIAS, Balaji Quick Primary Care Physician Encounter [facility] Date(s): 08/18/20 - 10/15/20 [facility] [address] [place] [address] Attending Physician: Not on Staff, Attending MD Allergies, Adverse Reactions, Alerts Substance Reaction [...] acel(Tdap) 2 08/02/17 Given 1Result Comment: [02/15/2018] 61425-196-71 2Result Comment: [08/02/2017] [facility] [id number] Medications amLODIPine 5 mg oral tablet 2.5 [...] 09/14/20 12:44:00 EDT, Route to Pharmacy Electronically, [facility] #[id number], 180, cm, 09/07/20 10:33:00 EDT, Height Start Date: 09/14/20 Status: Ordered Flonase 50 mcg/inh nasal spray 1 sprays = 50 mcg, Nares, Both, 2 times a day, # 16 Gm, 5 Refills, Maintenance, 09/29/20 16:49:00 EDT, Nasal [place], [facility] #[id number], Partial fill upon patient request if the [...] 09/13/20 6:59:00 EDT, Route to Pharmacy Electronically, [facility] #[id number], Partial fill upon patient request if the [...] tablet, 0 Refills, Maintenance, 09/14/20 12:44:00 EDT, [facility] #[id number], 180, cm, 09/07/20 10:33:00 EDT, Height Start [...] to Pharmacy Electronically, [facility] #[id number], Partial fill upon patient request if the [...] Smoking Status Current some day [facility] ker entered on: 02/15/18 Sex
--- OUTSIDE RECORDS SUMMARY | 2023-12-30 12:56 | XMS_ITS | Continuity of Care Document ---
Author Organization [facility] Rico Syed Aldair lt Address [address] [place] [address]- Care Team Providers Care Vice President Investor Relations Name Role Phone Balaji Mayo MD Primary Care Physician [facility]counter [facility] Date(s): 07/22/22 - 07/29/22 [facility] Rico Syed Adult [address] [place] [address]- Attending Physician: Balaji Mayo MD Allergies, Adverse [...] pneumococcal 23-valent vaccine 12/17/12 Recorded 1Result Comment: [id number] 2Result Comment: [02/15/2018] [id number] 3Result Comment: [08/02/2017] [facility] 88413-425-35 Medications aspirin 81 mg oral delayed release tablet = 81 mg, By Mouth, Daily, # 90 tablet, 3 Refills, Maintenance, 10/05/21 17:34:00 EDT, EC Tablet, [facility] #[id number], Partial fill upon patient request if the prescription is for a schedule II opioid drug., 182, cm, 09/10/21 8:13:00 EDT, Heigh... Start Date: 10/05/21 Status: Ordered atorvastatin 80 mg oral tablet 1 tablet = 80 mg, By Mouth, Daily, # 90 tablet, 3 Refills, Maintenance, 10/05/21 17:34:00 EDT, Tablet, [facility] #[id number], Partial fill upon patient request if the prescription is for a schedule II opioid drug., 182, cm, 09/10/21 8:13:00 EDT,... Start Date: 10/05/21 Status: Ordered BuPROPion (Eqv-Wellbutrin SR) 150 mg/12 hours oral tablet, extended release 1 tablet = 150 mg, By Mouth, 2 times a day, # 180 tablet, 3 Refills, Maintenance, 10/05/21 17:37:00EDT, SR Tablet, [facility] #[id number], Partial fill upon patient request if the prescription is for a schedule II opioid drug., 182, cm, 09/10/21... Start Date: 10/05/21 Status: Ordered clopidogrel 75 mg oral tablet 1, tablet, By Mouth, Daily, # 90 tablet, Refills 3, Tot. Refills 3, Maintenance, 10/05/21 17:34:00 EDT, Route to Pharmacy Electronically, [facility] #[id number], 182, cm, 09/10/21 8:13:00 EDT, Height, 102.7, kg, 09/08/21 16:41:00 EDT, Dry Weight Start Date: 10/05/21 Status: Ordered Flonase 50 mcg/inh nasal spray 1 sprays = 50 mcg, Nares, Both, 2 times a day, # 16 Gm, 5 Refills, Maintenance, 09/29/20 16:49:00 EDT, Nasal [place], [facility] #[id number], Partial fill upon patient request if the [...] 3 Refills, Maintenance, 10/05/21 17:34:00 EDT, Capsule, [facility] #[id number], Partial fill upon patient request if the prescription is for a schedule II opioid drug., 182, cm, 09/10/21 8:13:00 E... Start Date: 10/05/21 Status: Ordered isosorbide mononitrate 30 mg oral tablet, extended release 1 tablet = 30 mg, By Mouth, Daily in AM, # 90 tablet, 3 Refills, 10/05/21 17:35:00 EDT, [facility] #[id number], 182, cm, 09/10/21 8:13:00 EDT, Height, 102.7, kg, 09/08/21 16:41:00 EDT, Dry Weight Start Date: 10/05/21 Status: Ordered lamotrigine 25 mg oral tablet 100 mg, 4, tablet, By Mouth, 2 times a day, # 720 tablet, Refills 3, Tot. Refills 3, Maintenance, 10/06/21 14:57:00 EDT, Route to Pharmacy Electronically, [facility] #[id number], Partial fill upon patient request if the [...] 06/06/22 14:13:00 EST, Route to Pharmacy Electronically, [facility] #[id number],Partial fill upon patient request if the prescripti... [...] 10/05/21 17:36:00 EDT, Route to Pharmacy Electronically, [facility] #[id number], Partial fillupon patient request if the prescription [...] [Reference Range]: 1 2 Height 182 cm (07/22/22 10:00 AM) 182 cm (07/22/22 9:53 AM) Weight 111.1 kg (07/22/22 9:53 AM) Oxygen Saturation [94-100 %] 96 % (07/22/22 9:53 AM) Pulse Rate [55-90 bpm] 62 bpm (07/22/22 9:53 AM) Body Mass Index [18.5-24.99 kg/m2] 33.54 kg/m2 *>HHI* (07/22/22 9:53 AM) Blood Pressure [90-138/55-84 mm Hg] 126/ 78mm Hg (07/22/22 10:00 AM) 150/84mm Hg *H* (07/22/22 9:53 AM) Mode of Delivery (Oxygen) Room air (07/22/22 9:53 AM) Blood pressure sites Arm, right (07/22/22 10:00 AM) Arm, right (07/22/22 9:53 AM) Weight Obtained Via Standing scale (07/22/22 9:53 AM) Social History Social History Type Response [...] Care Physician Member Role: PCP Address: Address: [address] [place] [address]- [place] Care Team Related Persons Name: ROSANA NAGY Address: home [address] [place] [id number] Name: GORAN QUINTERO
--- OUTSIDE RECORDS SUMMARY | 2023-12-30 12:56 | XMS_ITS | Continuity of Care Document ---
Author Organization [facility] Rico Syed Aldair lt Address [address] [place] [address]- Care Team Providers Care Keller Machine Operator Name Role Phone Maria Esther URIAS, Balaji Quick Primary Care Physician [phone] Encounter [facility] Date(s): 05/11/22 - 06/10/22 [facility] Rico Syed Adult [address] [place] [address]- Allergies, Adverse Reactions, Alerts Substance Reaction Severity [...] pneumococcal 23-valent vaccine 12/17/12 Recorded 1Result Comment: [id number] 2Result Comment: [02/15/2018] 95877-884-16 3Result Comment: [08/02/2017] [facility] [id number] Medications aspirin 81 mg oral delayed release tablet = 81 mg, By Mouth, Daily, # 90 tablet, 3 Refills, Maintenance, 10/05/21 17:34:00 EDT, EC Tablet, [facility] #[id number], Partial fill upon patient request if the prescription is for a schedule II opioid drug., 182, cm, 09/10/21 8:13:00 EDT, Heigh... Start Date: 10/05/21 Status: Ordered atorvastatin 80 mg oral tablet 1 tablet = 80 mg, By Mouth, Daily, # 90 tablet, 3 Refills, Maintenance, 10/05/21 17:34:00 EDT, Tablet, [facility] #[id number], Partial fill upon patient request if the prescription is for a schedule II opioid drug., 182, cm, 09/10/21 8:13:00 EDT,... Start Date: 10/05/21 Status: Ordered BuPROPion (Eqv-Wellbutrin SR) 150 mg/12 hours oral tablet, extended release 1 tablet = 150 mg, By Mouth, 2 times a day, # 180 tablet, 3 Refills, Maintenance, 10/05/21 17:37:00EDT, SR Tablet, [facility] #[id number], Partial fill upon patient request if the prescription is for a schedule II opioid drug., 182, cm, 09/10/21... Start Date: 10/05/21 Status: Ordered clopidogrel 75 mg oral tablet 1, tablet, By Mouth, Daily, # 90 tablet, Refills 3, Tot. Refills 3, Maintenance, 10/05/21 17:34:00 EDT, Route to Pharmacy Electronically, [facility] #[id number], 182, cm, 09/10/21 8:13:00 EDT, Height, 102.7, kg, 09/08/21 16:41:00 EDT, Dry Weight Start Date: 10/05/21 Status: Ordered Flonase 50 mcg/inh nasal spray 1 sprays = 50 mcg, Nares, Both, 2 times a day, # 16 Gm, 5 Refills, Maintenance, 09/29/20 16:49:00 EDT, Nasal [place], [facility] #[id number], Partial fill upon patient request if the prescription is for a schedule II opioid drug., 1 sprays Nares, B... Start Date: 09/29/20 Status: Ordered FLUoxetine 40 mg oral capsule 1 capsule = 40 mg, By Mouth, Daily, # 90 capsule, 3 Refills, Maintenance, 10/05/21 17:34:00 EDT, Capsule, [facility] #[id number], Partial fill upon patient request if the prescription is for a schedule II opioid drug., 182, cm, 09/10/21 8:13:00 E... Start Date: 10/05/21 Status: Ordered isosorbide mononitrate 30 mg oral tablet, extended release 1 tablet = 30 mg, By Mouth, Daily in AM, # 90 tablet, 3 Refills, 10/05/21 17:35:00 EDT, [facility] #[id number], 182, cm, 09/10/21 8:13:00 EDT, Height, 102.7, kg, 09/08/21 16:41:00 EDT, Dry Weight Start Date: 10/05/21 Status: Ordered lamotrigine 25 mg oral tablet 100 mg, 4, tablet, By Mouth, 2 times a day, # 720 tablet, Refills 3, Tot. Refills 3, Maintenance, 10/06/21 14:57:00 EDT, Route to Pharmacy Electronically, [facility] #[id number], Partial fill upon patient request if the prescription is for a sche... Start Date: 10/06/21 Stop Date: 10/01/22 Status: Ordered lidocaine 5% topical film 1 patch, Topically, Daily, PRN Pain , Mild, remove after 12 hours, # 30 patch, 11 Refills, Maintenance, 02/20/21 7:32:00 EDT, Patch, [facility], Partial fill upon patient request if the prescription is for a schedule II opioid drug., 1 patch T... Start Date: 02/20/21 Status: Ordered metoprolol 25 mg oral tablet 25 mg, 1, tablet, By Mouth, 2 times a day, increase in dose, # 60 tablet, Refills 2, Tot. Refills 2, Maintenance, 06/06/22 14:13:00 EST, Route to Pharmacy Electronically, [facility] #[id number],Partial fill upon patient request if the prescripti... Start Date: 06/06/22 Status: Ordered traZODone 100 mg oral tablet 200 mg, 2, tablet, By Mouth, Daily at bedtime, # 180 tablet, Refills 3, Tot. Refills 3, Maintenance, 10/05/21 17:36:00 EDT, Route to Pharmacy Electronically, [facility] #[id number], Partial fillupon patient request if the prescription [...] Balaji Mayo MD Position: [facility] Primary Care Physician Member Role: PCP Address: Address: [address] [place] [id number]- Care Team Related Persons Name: ROSANA NAGY Address: home [address] [place] [address] Name: GORAN QUINTERO
--- OUTSIDE RECORDS SUMMARY | 2023-12-30 12:56 | XMS_ITS | Continuity of Care Document ---
Author Organization [facility] Kunal Aldair Address [address] [place] [address]- Care Team Providers Care Metal Furrer Name Role Phone Balaji Mayo MD Primary Care Physician [phone] [place] [facility] Date(s): 01/07/21 - 01/14/21 [facility] Adult [address] [place] [address]- Attending Physician: Balaji Mayo MD Allergies, Adverse [...] acel(Tdap) 2 08/02/17 Given 1Result Comment: [02/15/2018] 74587-059-87 2Result Comment: [08/02/2017] [facility] 40616-895-98 Medications amLODIPine 5 mg oral tablet 2.5 [...] 09/14/20 12:44:00 EDT, Route to Pharmacy Electronically, [email or web address] #[id number], 180, cm, 09/07/20 10:33:00 EDT, Height Start Date: 09/14/20 Status: Ordered Flonase 50 mcg/inh nasal spray 1 sprays = 50 mcg, Nares, Both, 2 times a day, # 16 Gm, 5 Refills, Maintenance, 09/29/20 16:49:00 EDT, Nasal [place], [email or web address] #[id number], Partial fill upon patient request if the [...] 09/13/20 6:59:00 EDT, Route to Pharmacy Electronically, [facility] #[id number], Partial fill upon patient request if the [...] tablet, 0 Refills, Maintenance, 09/14/20 12:44:00 EDT, [facility] #[id number], 180, cm, 09/07/20 10:33:00 EDT, Height Start [...] Maintenance, :58:00 EDT, Route to Pharmacy Electronically, [facility] #[id number], Partial fill upon patient request if the [...]
--- OUTSIDE RECORDS SUMMARY | 2023-12-30 12:56 | XMS_ITS | Continuity of Care Document ---
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 Name Role Phone Maria Esther URIAS, Balaji Quick Primary Care Physician [phone] Encounter [facility] Date(s): 07/19/23 - 08/25/23 [facility] Rico Chaoley Adult [address] [place] [address]- Attending Physician: Tomas Mcnulty MD Referring Physician: Balaji Mayo MD Allergies, Adverse Reactions, Alerts Substance Reaction Severity Status Claritin Active Clozaril Active Benadryl Active Vistaril Active Nicotine Patch Active Abilify Active Nuts Active Immunizations Given and Recorded [...] 23-valent vaccine 12/17/12 Recorded 1Result Comment: [02/15/2018] 37328-232-41 2Result Comment: [id number] 3Result Comment: [08/02/2017] [facility] 16699-662-85 Medications Aspirin Low Dose 81 mg oral delayed release tablet 1 tablet, By Mouth, Daily, # 90 tablet, 3 Refills, Maintenance, 11/08/22 11:19:00 EDT, [facility] #[id number], 184, cm, 11/03/22 11:28:00 EDT, Height, 106.3, kg, 09/13/22 12:30:00 EDT, Dry Weight Start Date: 11/08/22 Status: Ordered atorvastatin 80 mg oral tablet 1 tablet = 80 mg, By Mouth, Daily, # 90 tablet, 3 Refills, Maintenance, 08/18/23 16:03:00 EDT, Tablet, [facility] #[id number], Partial fill upon patient request if the prescription is for a schedule II opioid drug., 183, cm, 08/09/23 10:49:00 EDT... Start Date: 08/18/23 Status: Ordered BuPROPion (Eqv-Wellbutrin SR) 150 mg/12 hours oral tablet, extended release 1 tablet = 150 mg, By Mouth, 2 times a day, # 180 tablet, 3 Refills, Maintenance, 10/05/21 17:37:00EDT, SR Tablet, [facility] #[id number], Partial fill upon patient request if the prescription is for a schedule II opioid drug., 182, cm, 09/10/21... Start Date: 10/05/21 Status: Ordered clopidogrel 75 mg oral tablet 1, tablet, By Mouth, Daily, # 90 tablet, Refills 3, Tot. Refills 3, Maintenance, 08/18/23 16:03:00 EDT, Route to Pharmacy Electronically, [facility] #[id number], 183, cm, 08/09/23 10:49:00 EDT, Height, 107, kg, 01/26/23 19:57:00 EDT, Dry Weight Start Date: 08/18/23 Status: Ordered FLUoxetine 40 mg oral capsule 1 capsule = 40 mg, By Mouth, Daily, # 90 capsule, 3 Refills, Maintenance, 10/05/21 17:34:00 EDT, Capsule, [facility] #[id number], Partial fill upon patient request if the prescription is for a schedule II opioid drug., 182, cm, 09/10/21 8:13:00 E... Start Date: 10/05/21 Status: Ordered fluticasone 50 mcg/inh nasal spray 1 sprays = 50 mcg, Nares, Both, 2 times a day, PRN allergies, # 16 Gm, 11 Refills, Maintenance, 08/18/23 16:05:00 EDT, [place], [facility] #[id number], Partial fill upon patient request if the [...] 11 Refills, Maintenance, 08/18/23 16:04:00 EDT, Tablet, [facility] #[id number], Partial fill upon patient request if the prescription is for a schedule II opioid dr... Start Date: 08/18/23 Status: Ordered Norvasc 2.5 mg oral tablet 2.5 mg, 1, tablet, By Mouth, Daily, # 90 tablet, Refills 3, Tot. Refills 3, Maintenance, 08/18/23 16:02:00 EDT, Route to Pharmacy Electronically, [facility] #[id number], Partial fill upon patient request if the prescription is for a schedule II o... Start Date: 08/18/23 Status: Ordered omeprazole 20 mg oral enteric coated capsule 1 capsule = 20 mg, By Mouth, Daily, # 90 capsule, 3 Refills, Maintenance, 08/18/23 16:04:00 EDT, [facility] #[id number], Partial fill upon patient request if the [...] 08/18/23 16:01:00 EDT, Route to Pharmacy Electronically, [facility] #[id number] Tablet, Partial fill upon ani... Start Date: 08/18/23 Stop Date: 08/17/24 Status: Ordered traZODone 100 mg oral tablet 200 mg, 2, tablet, By Mouth, Daily at bedtime, # 180 tablet, Refills 3, Tot. Refills 3, Maintenance, 10/05/21 17:36:00 EDT, Route to Pharmacy Electronically, [facility] #[id number], Partial fillupon patient request if the prescription [...] Team Personnel Name: [place] RN Position: [facility] ED RN W/OE and Tasks Member Role: Primary Care Nurse Name: Esme Garcia RN Position: [facility] RN Member Role: Primary Care Nurse Name: Erich Dias RN Position: [facility] RN Member Role: Primary Care Nurse Name: Camila Vazquez RN Position: [facility] RN Member Role: Primary Care Nurse Name: Taylor Beck RN Position: [facility] RN Member Role: Primary Care Nurse Name: Amanda Moraes RN Position: [facility] RN Member Role: Primary Care Nurse Name: Mary Roberson RN Position: [facility] RN Member Role: Primary Care Nurse Name: Tomas Stauffer RN Position: [facility] RN Member Role: Primary Care Nurse Name: Balaji Mayo MD Position: [facility] Physician - Primary Care Member Role: PCP Address: Address: [address] [place] [address]- [place] Care Team Related Persons Name: YAKOV ROSANA Address: home [address] [place] [address] Name: GORAN QUINTERO
--- OUTSIDE RECORDS SUMMARY | 2023-12-30 12:56 | XMS_ITS | Continuity of Care Document ---
Author Organization [facility] Aldair Address [address] [place] [address]- Care Team Providers Care Dispatcher Relay Name Role Phone Maria Esther URIAS, Balaji Quick Primary Care Physician [phone] Encounter [facility] Date(s): 07/31/20 - 10/03/20 [facility] Adult [address] [place] [address]- Attending Physician: Balaji Mayo MD Referring Physician: Adarsh Merino MD Allergies, Adverse Reactions, Alerts Substance Reaction [...] acel(Tdap) 2 08/02/17 Given 1Result Comment: [02/15/2018] 73826-138-02 2Result Comment: [08/02/2017] [facility] 90692-228-96 Medications amLODIPine 5 mg oral tablet 2.5 [...] 09/14/20 12:44:00 EDT, Route to Pharmacy Electronically, [facility] #[id number], 180, cm, 09/07/20 10:33:00 EDT, Height Start Date: 09/14/20 Status: Ordered Flonase 50 mcg/inh nasal spray 1 sprays = 50 mcg, Nares, Both, 2 times a day, # 16 Gm, 5 Refills, Maintenance, 09/29/20 16:49:00 EDT, Nasal [place], [facility] #[id number], Partial fill upon patient request if the [...] 09/13/20 6:59:00 EDT, Route to Pharmacy Electronically, [facility] #[id number], Partial fill upon patient request if the [...] tablet, 0 Refills, Maintenance, 09/14/20 12:44:00 EDT, [facility] #[id number], 180, cm, 09/07/20 10:33:00 EDT, Height Start [...] :58:00 EDT, Route to Pharmacy Electronically, [facility] #[id number], Partial fill upon patient request if the [...] Type Response Smoking Status Current some day [facility] ker entered on: 02/15/18 Sex
--- OUTSIDE RECORDS SUMMARY | 2023-12-30 12:56 | XMS_ITS | Continuity of Care Document ---
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 Name Role Phone Maria Esther URIAS, Balaji Quick Primary Care Physician [phone] Encounter [facility] Date(s): 06/28/22 - 07/28/22 [facility] Rico Syed Adult [address] [place] [address]- Allergies, Adverse Reactions, Alerts Substance Reaction Severity [...] pneumococcal 23-valent vaccine 12/17/12 Recorded 1Result Comment: [id number] 2Result Comment: [02/15/2018] 27790-321-29 3Result Comment: [08/02/2017] [facility] 40520-316-29 Medications aspirin 81 mg oral delayed release tablet = 81 mg, By Mouth, Daily, # 90 tablet, 3 Refills, Maintenance, 10/05/21 17:34:00 EDT, EC Tablet, [facility] #[id number], Partial fill upon patient request if the prescription is for a schedule II opioid drug., 182, cm, 09/10/21 8:13:00 EDT, Heigh... Start Date: 10/05/21 Status: Ordered atorvastatin 80 mg oral tablet 1 tablet = 80 mg, By Mouth, Daily, # 90 tablet, 3 Refills, Maintenance, 10/05/21 17:34:00 EDT, Tablet, [facility] #[id number], Partial fill upon patient request if the prescription is for a schedule II opioid drug., 182, cm, 09/10/21 8:13:00 EDT,... Start Date: 10/05/21 Status: Ordered BuPROPion (Eqv-Wellbutrin SR) 150 mg/12 hours oral tablet, extended release 1 tablet = 150 mg, By Mouth, 2 times a day, # 180 tablet, 3 Refills, Maintenance, 10/05/21 17:37:00EDT, SR Tablet, [facility] #[id number], Partial fill upon patient request if the prescription is for a schedule II opioid drug., 182, cm, 09/10/21... Start Date: 10/05/21 Status: Ordered clopidogrel 75 mg oral tablet 1, tablet, By Mouth, Daily, # 90 tablet, Refills 3, Tot. Refills 3, Maintenance, 10/05/21 17:34:00 EDT, Route to Pharmacy Electronically, [facility] #[id number], 182, cm, 09/10/21 8:13:00 EDT, Height, 102.7, kg, 09/08/21 16:41:00 EDT, Dry Weight Start Date: 10/05/21 Status: Ordered Flonase 50 mcg/inh nasal spray 1 sprays = 50 mcg, Nares, Both, 2 times a day, # 16 Gm, 5 Refills, Maintenance, 09/29/20 16:49:00 EDT, Nasal [place], [facility] #[id number], Partial fill upon patient request if the [...] 3 Refills, Maintenance, 10/05/21 17:34:00 EDT, Capsule, [facility] #[id number], Partial fill upon patient request if the prescription is for a schedule II opioid drug., 182, cm, 09/10/21 8:13:00 E... Start Date: 10/05/21 Status: Ordered isosorbide mononitrate 30 mg oral tablet, extended release 1 tablet = 30 mg, By Mouth, Daily in AM, # 90 tablet, 3 Refills, 10/05/21 17:35:00 EDT, [facility] #[id number], 182, cm, 09/10/21 8:13:00 EDT, Height, 102.7, kg, 09/08/21 16:41:00 EDT, Dry Weight Start Date: 10/05/21 Status: Ordered lamotrigine 25 mg oral tablet 100 mg, 4, tablet, By Mouth, 2 times a day, # 720 tablet, Refills 3, Tot. Refills 3, Maintenance, 10/06/21 14:57:00 EDT, Route to Pharmacy Electronically, [facility] #[id number], Partial fill upon patient request if the prescription is for a sche... Start Date: 10/06/21 Stop Date: 10/01/22 Status: Ordered lidocaine 5% topical film 1 patch, Topically, Daily, PRN Pain , Mild, remove after 12 hours, # 30 patch, 11 Refills, Maintenance, 02/20/21 7:32:00 EDT, Patch, [facility], Partial fill upon patient request if the prescription is for a schedule II opioid drug., 1 patch T... Start Date: 02/20/21 Status: Ordered metoprolol 25 mg oral tablet 25 mg, 1, tablet, By Mouth, 2 times a day, increase in dose, # 60 tablet, Refills 2, Tot. Refills 2, Maintenance, 06/06/22 14:13:00 EST, Route to Pharmacy Electronically, [facility] #[id number],Partial fill upon patient request if the prescripti... [...] 10/05/21 17:36:00 EDT, Route to Pharmacy Electronically, [facility] #[id number], Partial fillupon patient request if the prescription [...] Amanda Garibay RN Position: [facility] RN Member Role: Primary Care Nurse Name: Mary Roberson RN Position: [facility] RN Member Role: Primary Care Nurse Name: Tomas Stauffer RN Position: [facility] RN Member Role: Primary Care Nurse Name: Balaji Maoy MD Position: [facility] Primary Care Physician Member Role: PCP Address: Address: [address] [place] [address]- [place] Care Team Related Persons Name: ROSANA NAGY Address: [address] [address] Name: GORAN QUINTERO
--- OUTSIDE RECORDS SUMMARY | 2023-12-30 12:56 | XMS_ITS | Continuity of Care Document ---
Author Organization [facility] Address [address] [place] [address]- Care Team Providers Care Combat Systems Operator Name Role Phone Maria Esther URIAS, Balaji Quick Primary Care Physician Encounter [facility] Date(s): 06/02/22 - 06/09/22 [facility] [address] [place], [place] [address] Attending Physician: Hope Dover NP Admitting Physician: Hope Doevr NP Allergies, Adverse Reactions, Alerts Substance Reaction [...] pneumococcal 23-valent vaccine 12/17/12 Recorded 1Result Comment: [id number] 2Result Comment: [02/15/2018] 80130-387-01 3Result Comment: [08/02/2017] [facility] 33502-996-94 Medications aspirin 81 mg oral delayed release tablet = 81 mg, By Mouth, Daily, # 90 tablet, 3 Refills, Maintenance, 10/05/21 17:34:00 EDT, EC Tablet, [facility] #[id number], Partial fill upon patient request if the prescription is for a schedule II opioid drug., 182, cm, 09/10/21 8:13:00 EDT, Heigh... Start Date: 10/05/21 Status: Ordered atorvastatin 80 mg oral tablet 1 tablet = 80 mg, By Mouth, Daily, # 90 tablet, 3 Refills, Maintenance, 10/05/21 17:34:00 EDT, Tablet, [facility] #[id number], Partial fill upon patient request if the prescription is for a schedule II opioid drug., 182, cm, 09/10/21 8:13:00 EDT,... Start Date: 10/05/21 Status: Ordered BuPROPion (Eqv-Wellbutrin SR) 150 mg/12 hours oral tablet, extended release 1 tablet = 150 mg, By Mouth, 2 times a day, # 180 tablet, 3 Refills, Maintenance, 10/05/21 17:37:00EDT, SR Tablet, [facility] #[id number], Partial fill upon patient request if the prescription is for a schedule II opioid drug., 182, cm, 09/10/21... Start Date: 10/05/21 Status: Ordered clopidogrel 75 mg oral tablet 1, tablet, By Mouth, Daily, # 90 tablet, Refills 3, Tot. Refills 3, Maintenance, 10/05/21 17:34:00 EDT, Route to Pharmacy Electronically, [facility] #[id number], 182, cm, 09/10/21 8:13:00 EDT, Height, 102.7, kg, 09/08/21 16:41:00 EDT, Dry Weight Start Date: 10/05/21 Status: Ordered Flonase 50 mcg/inh nasal spray 1 sprays = 50 mcg, Nares, Both, 2 times a day, # 16 Gm, 5 Refills, Maintenance, 09/29/20 16:49:00 EDT, Nasal [place], [facility] #[id number], Partial fill upon patient request if the prescription is for a schedule II opioid drug., 1 sprays Nares, B... Start Date: 09/29/20 Status: Ordered FLUoxetine 40 mg oral capsule 1 capsule = 40 mg, By Mouth, Daily, # 90 capsule, 3 Refills, Maintenance, 10/05/21 17:34:00 EDT, Capsule, [facility] #[id number], Partial fill upon patient request if the prescription is for a schedule II opioid drug., 182, cm, 09/10/21 8:13:00 E... Start Date: 10/05/21 Status: Ordered isosorbide mononitrate 30 mg oral tablet, extended release 1 tablet = 30 mg, By Mouth, Daily in AM, # 90 tablet, 3 Refills, 10/05/21 17:35:00 EDT, [facility] #[id number], 182, cm, 09/10/21 8:13:00 EDT, Height, 102.7, kg, 09/08/21 16:41:00 EDT, Dry Weight Start Date: 10/05/21 Status: Ordered lamotrigine 25 mg oral tablet 100 mg, 4, tablet, By Mouth, 2 times a day, # 720 tablet, Refills 3, Tot. Refills 3, Maintenance, 10/06/21 14:57:00 EDT, Route to Pharmacy Electronically, [facility] #[id number], Partial fill upon patient request if the prescription is for a sche... Start Date: 10/06/21 Stop Date: 10/01/22 Status: Ordered lidocaine 5% topical film 1 patch, Topically, Daily, PRN Pain , Mild, remove after 12 hours, # 30 patch, 11 Refills, Maintenance, 02/20/21 7:32:00 EDT, Patch, [facility], Partial fill upon patient request if the prescription is for a schedule II opioid drug., 1 patch T... Start Date: 02/20/21 Status: Ordered metoprolol 25 mg oral tablet 25 mg, 1, tablet, By Mouth, 2 times a day, increase in dose, # 60 tablet, Refills 2, Tot. Refills 2, Maintenance, 06/06/22 14:13:00 EST, Route to Pharmacy Electronically, [facility] #[id number],Partial fill upon patient request if the prescripti... Start Date: 06/06/22 Status: Ordered traZODone 100 mg oral tablet 200 mg, 2, tablet, By Mouth, Daily at bedtime, # 180 tablet, Refills 3, Tot. Refills 3, Maintenance, 10/05/21 17:36:00 EDT, [id number], Partial fillupon patient request if the prescription [...] oldest [Reference Range]: 1 Height 182 cm (06/02/22 11:06 AM) Weight 104.54 kg (06/02/22 11:06 AM) Oxygen Saturation [94-100 %] 96 % (06/02/22 11:06 AM) Pulse Rate [55-90 bpm] 65 bpm (06/02/22 11:06 AM) Body Mass Index [18.5-24.99 kg/m2] 31.56 kg/m2 *>HHI* (06/02/22 11:06 AM) Blood Pressure [90-138/55-84 mm Hg] 162/ 98mm Hg *H* (06/02/22 11:06 AM) Mode of Delivery (Oxygen) Room air (06/02/22 11:06 AM) Blood pressure sites Arm, right (06/02/22 11:06 AM) Weight Obtained Via Patient/family state d (06/02/22 11:06 AM) Social History Social History Type Response Smoking Status Current some day smo ker entered on: 02/15/18 Sex Note * Larissa Bravo: PERFORM, SIGN, VERIFY Event Display: Patient Education/Instruction Authored Date: [id number] [facility] *[facility] [address] Clinical Summary Name ALIYA NAGY Age 66 Years 1955 PCP Maria Esther URIAS, Balaji Quick PCP Visit Date 06/02/2022 10:19:00 Additional Instructions: Scheduled Appointments?? Future Appointments ?*[facility]??Lab[address] ?Phone:??--?Fax:??-- ?Appt. Date:??07/08/2022?2:00 PM ?Scheduled Provider:??PVR Room ?*[facility]??[place],??[place],??[address] ?Phone:??--?Fax:??-- ?Appt. Date:??07/13/2022?3:40 PM ?Scheduled Provider:??Daniel Wright MD ?*BMP??So[facility] [address],??[address] ?Phone:??--?Fax:??-- ?Appt. Date:??07/22/2022?9:50 AM ?Scheduled Provider:??Balaji Mayo MD ?*[facility]??Lab[address] ?Phone:??--?Fax:??-- ?Appt. Date:??07/27/2022?9:30 AM ?Scheduled Provider:??Ultrasound Room 3 [facility] ?*[facility]??Lab[address] ?Phone:??--?Fax:??-- ?Appt. Date:??07/27/2022?10:00 AM ?Scheduled Provider:??Ultrasound Room 2 [facility] ?*[facility]S[address]??[place],??[place],??[address] ?Phone:??--?Fax:??-- ?Appt. Date:??08/03/2022?1:00 PM ?Scheduled Provider:??Adriana URIAS, [...] increase in dose. Refills: 5. Next Dose: Trazodone (traZODone 100 mg oral tablet) 2 tab(s) Oral Daily at Bedtime. Refills: 3. Next Dose: Allergy Info:?? Nicotine Patch; Abilify; Nuts; Vistaril; Benadryl; Clozaril; Claritin Medications Given This Visit Future Orders ?No future orders Vital Signs Height 182 cm Weight 104.54 kg BMI 31.56 kg/m2 Blood Pressure 162 mm Hg/98 mm Hg Temperature Pulse Rate 65 bpm Respiratory Rate 02 Sat Mode of Delivery 96 %/Room air You can now view a summary of your hospital visit from the comfort of your home through a free online portal called [employer]. [employer] is a website that allows you to securely view your medical information including discharge summary, medications and follow-up visits. ??You can alsosend a secure electronic message to your doctor???s office to request appointments, renew medications or just ask a question. You can enroll at [email or web address] or register during your next office visit. [...] primary care provider, you may find a [facility] provider by calling [facility] at [phone]. For information about the plan of care including goals and instructions for your diagnosis, please see the patient education orders section of this document. Patient Education Materials?? The content of this educational material or handout may have been modified, supplemented, or adapted from its original content and format to support your individualized medical care. * Larissa Bravo: PERFORM, SIGN, VERIFY Event Display: Patient Education/Instruction Authored Date: [id number] [facility] [address] Clinical Summary Name ALIYA NAGY Age 66 Years 1955 PCP Maria Esther URIAS, Balaji Quick PCP Visit Date 06/02/2022 10:19:00 Additional Instructions: Scheduled Appointments?? Future Appointments ?*[facility]??Lab[address] ?Phone:??--?Fax:??-- ?Appt. Date:??07/08/2022?2:00 PM ?Scheduled Provider:??PVR Room ?*[facility]S[address]??[place],??[place],??[address] ?Phone:??--?Fax:??-- ?Appt. Date:??07/13/2022?3:40 PM ?Scheduled Provider:??Adriana URIAS, Daniel Cruz ?*[facility]??[facility] [address],??[address] ?Phone:??--?Fax:??-- ?Appt. Date:??07/22/2022?9:50 AM ?Scheduled Provider:??Maria Esther URIAS, Balaji Quick ?*[facility]??Lab[address] ?Phone:??--?Fax:??-- ?Appt. Date:??07/27/2022?9:30 AM ?Scheduled Provider:??Ultrasound Room 3 [facility] ?*[facility]??Lab[address] ?Phone:??--?Fax:??-- ?Appt. Date:??07/27/2022?10:00 AM ?Scheduled Provider:??Ultrasound Room 2 [facility] ?*[facility]??[place],??[place],??[address] ?Phone:??--?Fax:??-- ?Appt. Date:??08/03/2022?1:00 PM ?Scheduled Provider:??Adriana URIAS, [...] increase in dose. Refills: 5. Next Dose: Trazodone (traZODone 100 mg oral tablet) 2 tab(s) Oral Daily at Bedtime. Refills: 3. Next Dose: Allergy Info:?? Nicotine Patch; Abilify; Nuts; Vistaril; Benadryl; Clozaril; Claritin Medications Given This Visit Future Orders ?No future orders Vital Signs Height 182 cm Weight 104.54 kg BMI 31.56 kg/m2 Blood Pressure 162 mm Hg/98 mm Hg Temperature Pulse Rate 65 bpm Respiratory Rate 02 Sat Mode of Delivery 96 %/Room air You can now view a summary of your hospital visit from the comfort of your home through a free online portal called [employer]. [employer] is a website that allows you to securely view your medical information including discharge summary, medications and follow-up visits. ??You can alsosend a secure electronic message to your doctor???s office to request appointments, renew medications or just ask a question. You can enroll at [email or web address] or register during your next office visit. [...] primary care provider, you may find a [facility] provider by calling [facility] at [phone]. For information about the plan of care [...] Mayo MD Position: [facility] Primary Care Physician Member Role: PCP Address: Address: [address] [place] [address]- Care Team Related Persons Name: YAKOV ROSANA Address: home [address] [place] [id number] Name: GORAN QUINTERO
--- OUTSIDE RECORDS SUMMARY | 2023-12-30 12:56 | XMS_ITS | Continuity of Care Document ---
Author Organization [facility] Address [address] [place] [address]- Care Team Providers Care Semiconductor Engineer Name Role Phone Maria Esther URIAS, Balaji Quick Primary Care Physician [phone] Encounter [facility] [place] Date(s): 11/18/21 - 12/18/21 [facility] [address] [place], [place] [address] Allergies, Adverse Reactions, Alerts Substance [...] 23-valent vaccine 12/17/12 Recorded 1Result Comment: [02/15/2018] 85117-161-91 2Result Comment: [08/02/2017] [facility] 27681-830-96 Medications aspirin 81 mg oral delayed release tablet = 81 mg, By Mouth, Daily, # 90 tablet, 3 Refills, Maintenance, 10/05/21 17:34:00 EDT, EC Tablet, [facility] #[id number], Partial fill upon patient request if the prescription is for a schedule II opioid drug., 182, cm, 09/10/21 8:13:00 EDT, Heigh... Start Date: 10/05/21 Status: Ordered atorvastatin 80 mg oral tablet 1 tablet = 80 mg, By Mouth, Daily, # 90 tablet, 3 Refills, Maintenance, 10/05/21 17:34:00 EDT, Tablet, [facility] #[id number], Partial fill upon patient request if the prescription is for a schedule II opioid drug., 182, cm, 09/10/21 8:13:00 EDT,... Start Date: 10/05/21 Status: Ordered BuPROPion (Eqv-Wellbutrin SR) 150 mg/12 hours oral tablet, extended release 1 tablet = 150 mg, By Mouth, 2 times a day, # 180 tablet, 3 Refills, Maintenance, 10/05/21 17:37:00EDT, SR Tablet, [facility] #[id number], Partial fill upon patient request if the prescription is for a schedule II opioid drug., 182, cm, 09/10/21... Start Date: 10/05/21 Status: Ordered clopidogrel 75 mg oral tablet 1, tablet, By Mouth, Daily, # 90 tablet, Refills 3, Tot. Refills 3, Maintenance, 10/05/21 17:34:00 EDT, Route to Pharmacy Electronically, [facility] #[id number], 182, cm, 09/10/21 8:13:00 EDT, Height, 102.7, [...] 5 Refills, Maintenance, 09/29/20 16:49:00 EDT, Nasal [place], [facility] #[id number], Partial fill upon patient request if the prescription is for a schedule II opioid drug., 1 sprays Nares, B... Start Date: 09/29/20 Status: Ordered FLUoxetine 40 mg oral capsule 1 capsule = 40 mg, By Mouth, Daily, # 90 capsule, 3 Refills, Maintenance, 10/05/21 17:34:00 EDT, Capsule, [facility] #[id number], Partial fill upon patient request if the [...] 90 tablet, 3 Refills, 10/05/21 17:35:00 EDT, [facility] #[id number], 182, cm, 09/10/21 8:13:00 EDT, Height, 102.7, [...] 10/06/21 14:57:00 EDT, Route to Pharmacy Electronically, [facility] #[id number], Partial fill upon patient request if the prescription is for a sche... Start Date: 10/06/21 Stop Date: 10/01/22 Status: Ordered lidocaine 5% topical film 1 patch, Topically, Daily, PRN Pain , Mild, remove after 12 hours, # 30 patch, 11 Refills, Maintenance, 02/20/21 7:32:00 EDT, Patch, [facility], Partial fill upon patient request if the prescription is for a schedule II opioid drug., 1 patch T... Start Date: 02/20/21 Status: Ordered metoprolol 25 mg oral tablet 12.5 mg, 0.5, tablet, By Mouth, 2 times a day, # 90 tablet, Refills 3, Tot. Refills 3, Maintenance,10/05/21 17:40:00 EDT, Route to Pharmacy Electronically, [facility] #[id number], Partial fill upon patient request if the prescription is for a sc... Start Date: 10/05/21 Status: Ordered QUEtiapine 400 mg oral tablet, extended release 400 mg, 1, tablet, By Mouth, Daily in PM, # 90 tablet, Refills 1, Tot. Refills 1, Maintenance, 10/05/21 17:36:00 EDT, Route to Pharmacy Electronically, [facility] #[id number], Partial fill upon patient request if the [...] 10/05/21 17:36:00 EDT, Route to Pharmacy Electronically, [facility] #[id number], Partial fillupon patient request if the prescription is for a s... Start Date: 10/05/21 Status: Ordered Problem List Condition Effective Dates Status Health Status Inform ant AAA (abdominal aortic aneurysm)(Confirmed) Active Bipolar disorder(Confirmed) Active BPH (benign prostatic hyperplasia)(Confirmed) Active Carotid artery stenosis(Confirmed) Active Chest pain(Confirmed) Active CKD (chronic kidney disease) stage 3, GFR 30-59 ml/min(Confirmed) Active Coronary arteriosclerosis(Confirmed) 1 Active COVID-19(Confirmed) 2 7/7/22 Active Essential hypertension(Confirmed) Active Gastroesophageal reflux disease(Confirmed) [...] Name: Maria Esther URIAS, Balaji Quick Address: [address] [place] [address] Adult [place] [address]-
[2023-12-30 12:57] LABS: TSH reflex Free T4 1.63 uIU/mL (0.32-4.0)
--- OUTSIDE RECORDS SUMMARY | 2023-12-30 12:57 | XMS_ITS | Continuity of Care Document ---
Author Organization [facility] Address [address] [place] [address]- Care Team Providers Care Structural Steel Painter Name Role Phone Maria Esther URIAS, Balaji Quick Primary Care Physician [place] [facility] [place] 04[place]23 [facility] [address] [place], [place] [address] Attending Physician: Admstephanie, Bertha Admitting Physician: Admtr, Ar8 Referring Physician: Admtr, [...] 23-valent vaccine 12/17/12 Recorded 1Result Comment: [02/15/2018] [id number] 2Result Comment: [id number] 3Result Comment: [08/02/2017] [facility] 21044-929-24 Medications Aspirin Low Dose 81 mg oral delayed release tablet 1 tablet, By Mouth, Daily, # 90 tablet, 3 Refills, Maintenance, 11/08/22 11:19:00 EDT, [facility] #[id number], 184, cm, 11/03/22 11:28:00 EDT, Height, 106.3, kg, 09/13/22 12:30:00 EDT, Dry Weight Start Date: 11/08/22 Status: Ordered atorvastatin 80 mg oral tablet 1 tablet = 80 mg, By Mouth, Daily, # 90 tablet, 3 Refills, Maintenance, 12/05/22 4:30:00 EDT, Tablet, [facility] #[id number], Partial fill upon patient request if the prescription is for a schedule II opioid drug., 183, cm, 11/10/22 17:28:00 EDT,... Start Date: 12/05/22 Status: Ordered BuPROPion (Eqv-Wellbutrin SR) 150 mg/12 hours oral tablet, extended release 1 tablet = 150 mg, By Mouth, 2 times a day, # 180 tablet, 3 Refills, Maintenance, 10/05/21 17:37:00EDT, SR Tablet, [facility] #[id number], Partial fill upon patient request if the prescription is for a schedule II opioid drug., 182, cm, 09/10/21... Start Date: 10/05/21 Status: Ordered clopidogrel 75 mg oral tablet 1, tablet, By Mouth, Daily, # 90 tablet, Refills 3, Maintenance, 01/13/23 16:50:00 EDT, Route to Pharmacy Electronically, [facility] #[id number], 183, cm, 12/05/22 16:08:00 EDT, Height, 106.3, kg, 09/13/22 12:30:00 EDT, Dry Weight Start Date: 01/13/23 Status: Ordered Flonase 50 mcg/inh nasal spray 1 sprays = 50 mcg, Nares, Both, 2 times a day, # 16 Gm, 5 Refills, Maintenance, 09/15/22 8:26:00 EDT, Nasal [place], [facility] #[id number], Partial fill upon patient request if the prescription is for a schedule II opioid drug., 1 sprays Nares, [place]... Start Date: 09/15/22 Status: Ordered FLUoxetine 40 mg oral capsule 1 capsule = 40 mg, By Mouth, Daily, # 90 capsule, 3 Refills, Maintenance, 10/05/21 17:34:00 EDT, Capsule, [facility] #69052, Partial fill upon patient request if the [...] 11 Refills, Maintenance, 11/30/22 6:36:00 EDT, Tablet, [facility] #55756, Partial fill upon patient requestif the prescription [...] capsule, 1 Refills, Maintenance, 09/28/22 9:21:00 EDT, [facility] #[id number], Partial fill upon patient request if the [...] 10/05/21 17:36:00 EDT, Route to Pharmacy Electronically, [facility] #[id number], Partial fillupon patient request if the prescription [...] Team Personnel Name: Wild Woods RN Position: [facility] ED RN W/OE and Tasks Member Role: Primary Care Nurse Name: Esme Garcia RN Position: [facility] RN Member Role: Primary Care Nurse Name: Erich Dias RN Position: [facility] RN Member Role: Primary Care Nurse Name: Camila Vazquez RN Position: [facility] RN Member Role: Primary Care Nurse Name: Taylor Beck RN Position: [facility] RN Member Role: Primary Care Nurse Name: Amanda Garibay RN Position: [facility] RN Member Role: Primary Care Nurse Name: Mary Roberson RN Position: [facility] RN Member Role: Primary Care Nurse Name: Tomas Stauffer RN Position: [facility] RN Member Role: Primary Care Nurse Name: Balaji Mayo MD Position: [facility] Physician - Primary Care Member Role: PCP Address: Address: [address] [place] [address]- [place] Care Team Related Persons Name: YAKOV ROSANA Address: home [address] [place] [id number] Name: GORAN QUINTERO
--- OUTSIDE RECORDS SUMMARY | 2023-12-30 12:57 | XMS_ITS | Continuity of Care Document ---
Author Organization [facility] Kunal Aldair lt Address [address] [place] [address]- Care Team Providers Care Shipping And Receiving Operator Name Role Phone Maria Esther URIAS, Balaji Quick Primary Care Physician [phone] [place] [facility] [place](s[place] 11/02/21 - 12/02/21 [facility] Adult [address] [place] [address]- Allergies, Adverse Reactions, Alerts Substance Reaction Severity [...] 23-valent vaccine 12/17/12 Recorded 1Result Comment: [02/15/2018] [id number] 2Result Comment: [08/02/2017] [facility] 55227-361-40 Medications aspirin 81 mg oral delayed release tablet = 81 mg, By Mouth, Daily, # 90 tablet, 3 Refills, Maintenance, 10/05/21 17:34:00 EDT, EC Tablet, [facility] #[id number], Partial fill upon patient request if the prescription is for a schedule II opioid drug., 182, cm, 09/10/21 8:13:00 EDT, Heigh... Start Date: 10/05/21 Status: Ordered atorvastatin 80 mg oral tablet 1 tablet = 80 mg, By Mouth, Daily, # 90 tablet, 3 Refills, Maintenance, 10/05/21 17:34:00 EDT, Tablet, [facility] #[id number], Partial fill upon patient request if the prescription is for a schedule II opioid drug., 182, cm, 09/10/21 8:13:00 EDT,... Start Date: 10/05/21 Status: Ordered BuPROPion (Eqv-Wellbutrin SR) 150 mg/12 hours oral tablet, extended release 1 tablet = 150 mg, By Mouth, 2 times a day, # 180 tablet, 3 Refills, Maintenance, 10/05/21 17:37:00EDT, SR Tablet, [facility] #[id number], Partial fill upon patient request if the prescription is for a schedule II opioid drug., 182, cm, 09/10/21... Start Date: 10/05/21 Status: Ordered clopidogrel 75 mg oral tablet 1, tablet, By Mouth, Daily, # 90 tablet, Refills 3, Tot. Refills 3, Maintenance, 10/05/21 17:34:00 EDT, Route to Pharmacy Electronically, [facility] #[id number], 182, cm, 09/10/21 8:13:00 EDT, Height, 102.7, [...] 5 Refills, Maintenance, 09/29/20 16:49:00 EDT, Nasal [place], [facility] #[id number], Partial fill upon patient request if the prescription is for a schedule II opioid drug., 1 sprays Nixon Rubin.. Start Date: 09/29/20 Status: Ordered FLUoxetine 40 mg oral capsule 1 capsule = 40 mg, By Mouth, Daily, # 90 capsule, 3 Refills, Maintenance, 10/05/21 17:34:00 EDT, Capsule, [facility] #[id number], Partial fill upon patient request if the [...] 90 tablet, 3 Refills, 10/05/21 17:35:00 EDT, [facility] #[id number], 182, cm, 09/10/21 8:13:00 EDT, Height, 102.7, [...] 10/06/21 14:57:00 EDT, Route to Pharmacy Electronically, [facility] #[id number], Partial fill upon patient request if the prescription is for a sche... Start Date: 10/06/21 Stop Date: 10/01/22 Status: Ordered lidocaine 5% topical film 1 patch, Topically, Daily, PRN Pain , Mild, remove after 12 hours, # 30 patch, 11 Refills, Maintenance, 10/30/21 7:32:00 EDT, Patch, [facility], Partial fill upon patient request if the prescription is for a schedule II opioid drug., 1 patch T... Start Date: 02/20/21 Status: Ordered metoprolol 25 mg oral tablet 12.5 mg, 0.5, tablet, By Mouth, 2 times a day, # 90 tablet, Refills 3, Tot. Refills 3, Maintenance,10/05/21 17:40:00 EDT, Route to Pharmacy Electronically, [facility] #[id number], Partial fill upon patient request if the prescription is for a sc... Start Date: 10/05/21 Status: Ordered QUEtiapine 400 mg oral tablet, extended release 400 mg, 1, tablet, By Mouth, Daily in PM, # 90 tablet, Refills 1, Tot. Refills 1, Maintenance, 10/05/21 17:36:00 EDT, Route to Pharmacy Electronically, [facility] #[id number], Partial fill upon patient request if the [...] 10/05/21 17:36:00 EDT, Route to Pharmacy Electronically, [facility] #[id number], Partial fillupon patient request if the prescription [...]
--- OUTSIDE RECORDS SUMMARY | 2023-12-30 12:57 | XMS_ITS | Continuity of Care Document ---
Author Organization [facility] Kunal Aldair lt Address [address] [place] [address]- Care Team Providers Care Cuff Setter Overlock Name Role Phone Balaji Mayo MD Primary Care Physician Encounter [facility] [place] [place] Date(s): 02/19/21 - 02/26/21 [facility] Adult [address] [place] [address]- Attending Physician: Balaji Mayo MD Allergies, Adverse [...] 23-valent vaccine 12/17/12 Recorded 1Result Comment: [02/15/2018] [id number] 2Result Comment: [08/02/2017] [facility] 20088-181-53 Medications amLODIPine 5 mg oral tablet 2.5 mg, 0.5, tablet, By Mouth, 2 times a day, Refills 0, Maintenance, 05/11/21 10:53:00 EDT, Partial fill upon patient request if the prescription is for a schedule II opioid drug. Start Date: 09/01/20 Status: Ordered aspirin 81 mg oral delayed release tablet = 81 mg, By Mouth, Daily, # 90 tablet, 3 Refills, Maintenance, 02/18/21 9:19:00 EDT, EC Tablet, [facility], Partial fill upon patient request [...] 09/14/20 12:44:00 EDT, Route to Pharmacy Electronically, [facility] #[id number], 180, cm, 09/07/20 10:33:00 EDT, Height Start Date: 09/14/20 Status: Ordered Flonase 50 mcg/inh nasal spray 1 sprays = 50 mcg, Nares, Both, 2 times a day, # 16 Gm, 5 Refills, Maintenance, 09/29/20 16:49:00 EDT, Nasal [place], [id number] #[id number], Partial fill upon patient request if the [...] 09/13/20 6:59:00 EDT, Route to Pharmacy Electronically, [facility] #[id number], Partial fill upon patient request if the [...] 11 Refills, Maintenance, 02/20/21 7:32:00 EDT, Patch, [facility], Partial fill upon patient request if the prescription is for a schedule II opioid drug., 1 patch T... Start Date: 02/20/21 Status: Ordered Metoprolol Tartrate 25 mg oral tablet 1 tablet, By Mouth, 2 times a day, # 180 tablet, 0 Refills, Maintenance, 09/14/20 12:44:00 EDT, [facility] #[id number], 180, cm, 09/07/20 10:33:00 EDT, Height Start [...] Maintenance, :58:00 EDT, Route to Pharmacy Electronically, [facility][id number], Partial fill upon patient request if the [...] oldest [Reference Range]: 1 Height 180 cm (02/19/21 1:36 PM) Weight 98.9 kg (02/19/21 1:36 PM) Oxygen Saturation [94-100 %] 97 % (02/19/21 1:36 PM) Pulse Rate [55-90 bpm] 61 bpm (02/19/21 1:36 PM) Body Mass Index [18.5-24.99] 30.52 *>HHI* (02/19/21 1:36 PM) Blood Pressure [90-138/55-84 mm Hg] 122/ 66mm Hg (02/19/21 1:36 PM) Temperature [96.8-100.4 DegF] 98.3 DegF (02/19/21 1:36 PM) Blood pressure sites Arm, right (02/19/21 1:36 PM) Social History Social History Type Response Smoking Status Current some day mata garza entered on: 02/15/18 Sex
--- OUTSIDE RECORDS SUMMARY | 2023-12-30 12:57 | XMS_ITS | Continuity of Care Document ---
Author Organization [facility] Kunal Aldair Address [address] [place] [address]- Care Team Providers Care Signal Engineer Name Role Phone Maria Esther URIAS, Balaji Quick Primary Care Physician Encounter [facility] [place] Date(s): 08/20/20 - 09/19/20 [facility] Adult [address] [place] [address]- Allergies, Adverse Reactions, Alerts Substance Reaction Severity [...] acel(Tdap) 2 08/02/17 Given 1Result Comment: [02/15/2018] [id number] 2Result Comment: [08/02/2017] [facility] [place]NOTE 2] 33148-572-20 Medications amLODIPine 5 mg oral tablet 2.5 [...] 09/14/20 12:44:00 EDT, Route to Pharmacy Electronically, [facility] #[id number], 180, cm, 09/07/20 10:33:00 EDT, Height Start Date: 09/14/20 Status: Ordered cyclobenzaprine 5 mg oral tablet 1 tablet = 5 mg, By Mouth, 3 times a day, PRN Pain , Moderate, for 10 days, # 30 tablet, 1 Refills,Acute 09/27/20 16:55:00 EDT, 09/07/20 16:55:00 EDT, Tablet, [facility], Partial fill upon patient request if [...] 09/13/20 6:59:00 EDT, Route to Pharmacy Electronically, [facility] #[id number], Partial fill upon patient request if the [...] tablet, 0 Refills, Maintenance, 09/14/20 12:44:00 EDT, [facility] #[id number], 180, cm, 09/07/20 10:33:00 EDT, Height Start [...] [facility] #[id number], Partial fill upon patient request if the [...]
--- OUTSIDE RECORDS SUMMARY | 2023-12-30 12:57 | XMS_ITS | Continuity of Care Document ---
Author Organization [facility] Kunal Aldair Address [address] [place] [address]- Care Team Providers Care Media Law Faculty Member Name Role Phone Maria Esther URIAS, Balaji Quick Primary Care Physician Encounter [facility] [place] Date(s): 12/24/20 - 01/23/21 [facility] Adult [address] [place] [address]- Allergies, Adverse Reactions, Alerts Substance Reaction Severity [...] acel(Tdap) 2 08/02/17 Given 1Result Comment: [02/15/2018] [id number] 2Result Comment: [08/02/2017] [facility] 87043-034-77 Medications amLODIPine 5 mg oral tablet 2.5 [...] 09/14/20 12:44:00 EDT, Route to Pharmacy Electronically, [facility] #[id number], 180, cm, 09/07/20 10:33:00 EDT, Height Start Date: 09/14/20 Status: Ordered Flonase 50 mcg/inh nasal spray 1 sprays = 50 mcg, Nares, Both, 2 times a day, # 16 Gm, 5 Refills, Maintenance, 09/29/20 16:49:00 EDT, Nasal [place], [facility] #[id number], Partial fill upon patient request if the [...] 09/13/20 6:59:00 EDT, Route to Pharmacy Electronically, [facility] #[id number], Partial fill upon patient request if the [...] tablet, 0 Refills, Maintenance, 09/14/20 12:44:00 EDT, [facility] #[id number], 180, cm, 09/07/20 10:33:00 EDT, Height Start [...] Maintenance, :58:00 EDT, Route to Pharmacy Electronically, [facility] #75404, Partial fill upon patient request if the [...]
--- OUTSIDE RECORDS SUMMARY | 2023-12-30 12:57 | XMS_ITS | Continuity of Care Document ---
Author Organization [facility] Kunal Aldair Address [address] [place] [address]- Care Team Providers Care Engineering Leader Name Role Phone Maria Esther URIAS, Balaji Quick Primary Care Physician Encounter [facility] Date(s): 01/15/20 - 02/14/20 [facility] Adult [address] [place] [address]- [facility] Allergies, Adverse Reactions, Alerts Substance Reaction Severity Status Claritin Active Clozaril Active Benadryl Active Vistaril Active Nuts Active Abilify Active Nicotine Patch Active Immunizations Given and Recorded Vaccine Date Status Refusal Reason influenza virus vaccine, inactivated 01/29/19 Give n influenza virus vaccine, inactivated 1 02/15/18 Gi juan tetanus/diphtheria/pertussis, acel(Tdap) 2 08/02/17 Given 1Result Comment: [02/15/2018] 12599-428-60 2Result Comment: [08/02/2017] [facility] 90675-026-01 Medications amLODIPine 5 mg oral tablet 5 mg, 1, tablet, By Mouth, Daily, [facility], # 90 tablet, Refills 3, Tot.Refills 3, Maintenance, 01/16/20 15:03:00 EDT, Route to Pharmacy Electronically, [facility] #[id number], 180, cm, 12/03/19 13:50:00 EDT, Height Start Date: 01/16/20 Status: Ordered Aspirin Tablet 81 mg, By Mouth, Daily, Maintenance, 04/15/13 17:02:08 Start Date: 04/15/13 Status: Ordered atorvastatin 80 mg oral tablet 1 tablet = 80 mg, By Mouth, Daily in AM, [facility], # 90 tablet, 1 Refills, Maintenance, 01/16/20 15:04:00 EDT, Tablet, [facility] #[id number], 180, cm, 12/03/19 13:50:00 EDT, Height, Dry [...] 01/16/20 15:09:00 EDT, Route to Pharmacy Electronically, [facility] #[id number], 180, cm, 12/03/19 13:50:00 EDT, Height Start Date: 01/16/20 Status: Ordered cyclobenzaprine 5 mg oral tablet 1 tablet = 5 mg, By Mouth, 2 times a day, PRN as needed for muscle spasm, REFAX TO [facility], # 60 tablet, 2 Refills, Maintenance, 01/16/20 15:05:00 EDT, Tablet, [facility][id number], 180, cm, 12/03/19 13:50:00 EDT, Height, Dry... [...] 01/16/20 15:06:00 EDT, Route to Pharmacy Electronically, [facility] #[id number], 180, cm, 0... Start Date: 01/16/20 Status: Ordered Flomax 0.4 mg oral capsule 0.4 mg, 1, capsule, By Mouth, Daily, REFAX TO [facility] PER DR COTTRELL, # 90 capsule, Refills 1, Tot. Refills 1, Maintenance, 01/16/20 15:08:00 EDT, Route to Pharmacy Electronically, [facility][id number], 180, cm, 12/03/19 13:50:00 EDT, Height Start Date: 01/16/20 Status: Ordered Flonase 50 mcg/inh nasal spray 2 sprays, Nares, Both, 2 times a day, # 16 Gm, 0 Refills, Maintenance, 11/16/18 10:23:39 EDT, [place] Start Date: 11/16/18 Status: Ordered isosorbide mononitrate 30 mg oral tablet, extended release 1 tablet, By Mouth, Daily in AM, REFAX TO [facility] PER DR COTTRELL, # 90 tablet, 1 Refills, Maintenance, 01/16/20 15:07:00 EDT, [facility] #[id number], 180, cm, 12/03/19 13:50:00 EDT, Height Start [...] patch, 5 Refills, Maintenance, 01/16/20 15:07:00 EDT, [facility] #[id number], Apply to affected area Topically Thomas... Start Date: 01/16/20 Status: Ordered metoprolol 25 mg oral tablet 25 mg, 1, tablet, By Mouth, 2 times a day, REFAX TO [facility] PER DR COTTRELL, # 180 tablet, Refills 1, Tot. Refills 1, Maintenance, 01/16/20 15:08:00 EDT, Route to Pharmacy Electronically, [facility] #[id number], 180, cm, 12/03/19 13:50:00 EDT,... Start Date: 01/16/20 Status: Ordered nitroglycerin 0.4 mg sublingual tablet 1 tablet = 0.4 mg, Sublingual, Every 5 minutes, PRN for chest pain, # 100 tablet, 0 Refills, Maintenance, 11/16/18 10:24:35 EDT, Tablet Start Date: 11/16/18 Status: Ordered oxybutynin 5 mg/24 hours oral tablet, extended release 1 tablet = 5 mg, By Mouth, Daily at bedtime, # 30 tablet, 3 Refills, Maintenance, 02/13/20 23:02:00EDT, ER Tablet, [facility] #[id number], 180, cm, 12/03/19 13:50:00 EDT, Height Start [...]
--- OUTSIDE RECORDS SUMMARY | 2023-12-30 12:57 | XMS_ITS | Continuity of Care Document ---
Author Organization [facility] Rico Syed Aldair lt Address [address] [place] [address]- Care Team Providers Care Internet Researcher Name Role Phone Maria Esther URIAS, Balaji Quick Primary Care Physician [facility]counter [facility] Date(s): 05/12/22 - 06/11/22 [facility] Rico Syed Adult [address] [place] [address]- Attending Physician: AdmtrBertha Admitting Physician: AdmtrBertha Referring Physician: Admtr, Ar8 [...] pneumococcal 23-valent vaccine 12/17/12 Recorded 1Result Comment: [id number] 2Result Comment: [02/15/2018] 56180-349-88 3Result Comment: [08/02/2017] [facility] 49620-046-26 Medications aspirin 81 mg oral delayed release tablet = 81 mg, By Mouth, Daily, # 90 tablet, 3 Refills, Maintenance, 10/05/21 17:34:00 EDT, EC Tablet, [facility] #[id number], Partial fill upon patient request if the prescription is for a schedule II opioid drug., 182, cm, 09/10/21 8:13:00 EDT, Heigh... Start Date: 10/05/21 Status: Ordered atorvastatin 80 mg oral tablet 1 tablet = 80 mg, By Mouth, Daily, # 90 tablet, 3 Refills, Maintenance, 10/05/21 17:34:00 EDT, Tablet, [facility] #[id number], Partial fill upon patient request if the prescription is for a schedule II opioid drug., 182, cm, 09/10/21 8:13:00 EDT,... Start Date: 10/05/21 Status: Ordered BuPROPion (Eqv-Wellbutrin SR) 150 mg/12 hours oral tablet, extended release 1 tablet = 150 mg, By Mouth, 2 times a day, # 180 tablet, 3 Refills, Maintenance, 10/05/21 17:37:00EDT, SR Tablet, [facility] #[id number], Partial fill upon patient request if the prescription is for a schedule II opioid drug., 182, cm, 09/10/21... Start Date: 10/05/21 Status: Ordered clopidogrel 75 mg oral tablet 1, tablet, By Mouth, Daily, # 90 tablet, Refills 3, Tot. Refills 3, Maintenance, 10/05/21 17:34:00 EDT, Route to Pharmacy Electronically, [facility] #[id number], 182, cm, 09/10/21 8:13:00 EDT, Height, 102.7, kg, 09/08/21 16:41:00 EDT, Dry Weight Start Date: 10/05/21 Status: Ordered Flonase 50 mcg/inh nasal spray 1 sprays = 50 mcg, Nares, Both, 2 times a day, # 16 Gm, 5 Refills, Maintenance, 09/29/20 16:49:00 EDT, Nasal [place], [facility] #[id number], Partial fill upon patient request if the prescription is for a schedule II opioid drug., 1 sprays Scottie, B... Start Date: 09/29/20 Status: Ordered FLUoxetine 40 mg oral capsule 1 capsule = 40 mg, By Mouth, Daily, # 90 capsule, 3 Refills, Maintenance, 10/05/21 17:34:00 EDT, Capsule, [facility] #[id number], Partial fill upon patient request if the prescription is for a schedule II opioid drug., 182, cm, 09/10/21 8:13:00 E... Start Date: 10/05/21 Status: Ordered isosorbide mononitrate 30 mg oral tablet, extended release 1 tablet = 30 mg, By Mouth, Daily in AM, # 90 tablet, 3 Refills, 10/05/21 17:35:00 EDT, [facility] #[id number], 182, cm, 09/10/21 8:13:00 EDT, Height, 102.7, kg, 09/08/21 16:41:00 EDT, Dry Weight Start Date: 10/05/21 Status: Ordered lamotrigine 25 mg oral tablet 100 mg, 4, tablet, By Mouth, 2 times a day, # 720 tablet, Refills 3, Tot. Refills 3, Maintenance, 10/06/21 14:57:00 EDT, Route to Pharmacy Electronically, [facility] #[id number], Partial fill upon patient request if the prescription is for a sche... Start Date: 10/06/21 Stop Date: 10/01/22 Status: Ordered lidocaine 5% topical film 1 patch, Topically, Daily, PRN Pain , Mild, remove after 12 hours, # 30 patch, 11 Refills, Maintenance, 02/20/21 7:32:00 EDT, Patch, [facility], Partial fill upon patient request if the prescription is for a schedule II opioid drug., 1 patch T... Start Date: 02/20/21 Status: Ordered metoprolol 25 mg oral tablet 25 mg, 1, tablet, By Mouth, 2 times a day, increase in dose, # 60 tablet, Refills 2, Tot. Refills 2, Maintenance, 06/06/22 14:13:00 EST, Route to Pharmacy Electronically, [facility] #[id number],Partial fill upon patient request if the prescripti... Start Date: 06/06/22 Status: Ordered traZODone 100 mg oral tablet 200 mg, 2, tablet, By Mouth, Daily at bedtime, # 180 tablet, Refills 3, Tot. Refills 3, Maintenance, 10/05/21 17:36:00 EDT, Route to Pharmacy Electronically, [facility] #[id number], Partial fillupon patient request if the prescription [...] ker entered on: 02/15/18 Sex Note * Event Display: Cardiology Office Note, Non-BH Authored Date: * Event Display: Cardiology Office Note, Non-BH Authored Date: * Event Display: Ultrasound Renal, Non BH Authored Date: * Event Display: Cardiovascular Result Scanned Authored Date: Cardiology Consult note * Event Display: Consult Note Cardiology Authored Date: Patient Care team information Care Team Personnel Name: Wild Woods RN Position: S ED RN W/OE and Tasks Member Role: Primary Care Nurse Name: Camila Vazquez RN Position: [facility] RN Member Role: Primary Care Nurse Name: Amanda Garibay RN Position: [facility] RN Member Role: Primary Care Nurse Name: Mary Roberson RN Position: [facility] RN Member Role: Primary Care Nurse Name: Tomas Stauffer RN Position: [facility] RN Member Role: Primary Care Nurse Name: Balaji Mayo MD Position: [facility] Primary Care Physician Member Role: PCP Address: Address: [address] [place] [address]- [place] Care Team Related Persons Name: ROSANA NAGY Address: home [address] [place] [id number] Name: GORAN QUINTERO
--- OUTSIDE RECORDS SUMMARY | 2023-12-30 12:57 | XMS_ITS | Continuity of Care Document ---
Author Organization [facility] Kunal Aldair lt Address [address] [place] [address]- Care Team Providers Care Child Day Care Teacher Name Role Phone Balaji Mayo MD Primary Care Physician [phone] [place] [facility] [place]): 10/11/21 - 12/08/21 [facility] Adult [address] [place] [address]- Attending Physician: Balaji Mayo MD Allergies, Adverse [...] 23-valent vaccine 12/17/12 Recorded 1Result Comment: [02/15/2018] [id number] 2Result Comment: [08/02/2017] [facility] 02158-233-59 Medications aspirin 81 mg oral delayed release tablet = 81 mg, By Mouth, Daily, # 90 tablet, 3 Refills, Maintenance, 10/05/21 17:34:00 EDT, EC Tablet, [facility] #[id number], Partial fill upon patient request if the prescription is for a schedule II opioid drug., 182, cm, 09/10/21 8:13:00 EDT, Heigh... Start Date: 10/05/21 Status: Ordered atorvastatin 80 mg oral tablet 1 tablet = 80 mg, By Mouth, Daily, # 90 tablet, 3 Refills, Maintenance, 10/05/21 17:34:00 EDT, Tablet, [facility] #[id number], Partial fill upon patient request if the prescription is for a schedule II opioid drug., 182, cm, 09/10/21 8:13:00 EDT,... Start Date: 10/05/21 Status: Ordered BuPROPion (Eqv-Wellbutrin SR) 150 mg/12 hours oral tablet, extended release 1 tablet = 150 mg, By Mouth, 2 times a day, # 180 tablet, 3 Refills, Maintenance, 10/05/21 17:37:00EDT, SR Tablet, [facility] #[id number], Partial fill upon patient request if the prescription is for a schedule II opioid drug., 182, cm, 09/10/21... Start Date: 10/05/21 Status: Ordered clopidogrel 75 mg oral tablet 1, tablet, By Mouth, Daily, # 90 tablet, Refills 3, Tot. Refills 3, Maintenance, 10/05/21 17:34:00 EDT, Route to Pharmacy Electronically, [facility] #[id number], 182, cm, 09/10/21 8:13:00 EDT, Height, 102.7, [...] 5 Refills, Maintenance, 09/29/20 16:49:00 EDT, Nasal [place], [facility] #[id number], Partial fill upon patient request if the prescription is for a schedule II opioid drug., 1 sprays Nares, B... Start Date: 09/29/20 Status: Ordered FLUoxetine 40 mg oral capsule 1 capsule = 40 mg, By Mouth, Daily, # 90 capsule, 3 Refills, Maintenance, 10/05/21 17:34:00 EDT, Capsule, [facility] #[id number], Partial fill upon patient request if the [...] 90 tablet, 3 Refills, 10/05/21 17:35:00 EDT, [facility] #[id number], 182, cm, 09/10/21 8:13:00 EDT, Height, 102.7, [...] 10/06/21 14:57:00 EDT, Route to Pharmacy Electronically, [facility] #[id number], Partial fill upon patient request if the prescription is for a sche... Start Date: 10/06/21 Stop Date: 10/01/22 Status: Ordered lidocaine 5% topical film 1 patch, Topically, Daily, PRN Pain , Mild, remove after 12 hours, # 30 patch, 11 Refills, Maintenance, 02/20/21 7:32:00 EDT, Patch, [facility], Partial fill upon patient request if the prescription is for a schedule II opioid drug., 1 patch T... Start Date: 02/20/21 Status: Ordered metoprolol 25 mg oral tablet 12.5 mg, 0.5, tablet, By Mouth, 2 times a day, # 90 tablet, Refills 3, Tot. Refills 3, Maintenance,10/05/21 17:40:00 EDT, Route to Pharmacy Electronically, [facility] #[id number], Partial fill upon patient request if the prescription is for a sc... Start Date: 10/05/21 Status: Ordered QUEtiapine 400 mg oral tablet, extended release 400 mg, 1, tablet, By Mouth, Daily in PM, # 90 tablet, Refills 1, Tot. Refills 1, Maintenance, 10/05/21 17:36:00 EDT, Route to Pharmacy Electronically, [facility] #[id number], Partial fill upon patient request if the prescription is for a schedul... Start Date: 10/05/21 Status: Ordered CUSTODIAL VISIT FREQUENCY CUSTODIAL VISIT FREQUENCY, See Instructions, # 1 each, Refills 0, Tot. Refills 0, Maintenance, PLEASE INCREASE CUSTODIAL VISITS TO TWICE A DAY FOR MEDICATION MANAGEMENT AND ADMINISTRATION., 10/06/21 15:08:00 EDT, Supply Start Date: 10/06/21 Status: Ordered traZODone 100 mg oral tablet 200 mg, 2, tablet, By Mouth, Daily at bedtime, # 180 tablet, Refills 3, Tot. Refills 3, Maintenance, 10/05/21 17:36:00 EDT, Route to Pharmacy Electronically, [facility] #[id number], Partial fillupon patient request if the prescription [...]
--- OUTSIDE RECORDS SUMMARY | 2023-12-30 12:57 | XMS_ITS | Continuity of Care Document ---
Author Organization [facility] Rico Syed Aldair lt Address [address] [place] [address]- Care Team Providers Care Jawbone Puller Name Role Phone Maria Esther URIAS, Balaji Quick Primary Care Physician [phone] Encounter [facility] Date(s): 08/16/23 - 09/15/23 [facility] Rico Syed Adult [address] [place] [address]- Allergies, Adverse Reactions, Alerts Substance Reaction Severity Status Claritin Active Clozaril Active Benadryl Active Abilify Active Nicotine Patch Active Vistaril Active Nuts Active Immunizations Given [...] 23-valent vaccine 12/17/12 Recorded 1Result Comment: [02/15/2018] [id number] 2Result Comment: [id number] 3Result Comment: [08/02/2017] [facility] 33941-722-20 Medications Aspirin Low Dose 81 mg oral delayed release tablet 1 tablet, By Mouth, Daily, # 90 tablet, 3 Refills, Maintenance, 11/08/22 11:19:00 EDT, [facility] #[id number], 184, cm, 11/03/22 11:28:00 EDT, Height, 106.3, kg, 09/13/22 12:30:00 EDT, Dry Weight Start Date: 11/08/22 Status: Ordered atorvastatin 80 mg oral tablet 1 tablet = 80 mg, By Mouth, Daily, # 90 tablet, 3 Refills, Maintenance, 08/18/23 16:03:00 EDT, Tablet, [facility] #[id number], Partial fill upon patient request if the prescription is for a schedule II opioid drug., 183, cm, 08/09/23 10:49:00 EDT... Start Date: 08/18/23 Status: Ordered BuPROPion (Eqv-Wellbutrin SR) 150 mg/12 hours oral tablet, extended release 1 tablet = 150 mg, By Mouth, 2 times a day, # 180 tablet, 3 Refills, Maintenance, 10/05/21 17:37:00EDT, SR Tablet, [facility] #[id number], Partial fill upon patient request if the prescription is for a schedule II opioid drug., 182, cm, 09/10/21... Start Date: 10/05/21 Status: Ordered clopidogrel 75 mg oral tablet 1, tablet, By Mouth, Daily, # 90 tablet, Refills 3, Tot. Refills 3, Maintenance, 08/18/23 16:03:00 EDT, Route to Pharmacy Electronically, [facility] #[id number], 183, cm, 08/09/23 10:49:00 EDT, Height, 107, kg, 01/26/23 19:57:00 EDT, Dry Weight Start Date: 08/18/23 Status: Ordered FLUoxetine 40 mg oral capsule 1 capsule = 40 mg, By Mouth, Daily, # 90 capsule, 3 Refills, Maintenance, 10/05/21 17:34:00 EDT, Capsule, [facility] #[id number], Partial fill upon patient request if the prescription is for a schedule II opioid drug., 182, cm, 09/10/21 8:13:00 E... Start Date: 10/05/21 Status: Ordered fluticasone 50 mcg/inh nasal spray 1 sprays = 50 mcg, Nares, Both, 2 times a day, PRN allergies, # 16 Gm, 11 Refills, Maintenance, 08/18/23 16:05:00 EDT, [place], [facility] #[id number], Partial fill upon patient request if the [...] 11 Refills, Maintenance, 08/18/23 16:04:00 EDT, Tablet, [facility] #[id number], Partial fill upon patient request if the prescription is for a schedule II opioid dr... Start Date: 08/18/23 Status: Ordered Norvasc 2.5 mg oral tablet 2.5 mg, 1, tablet, By Mouth, Daily, # 90 tablet, Refills 3, Tot. Refills 3, Maintenance, 08/18/23 16:02:00 EDT, Route to Pharmacy Electronically, [facility] #[id number], Partial fill upon patient request if the prescription is for a schedule II o... Start Date: 08/18/23 Status: Ordered omeprazole 20 mg oral enteric coated capsule 1 capsule = 20 mg, By Mouth, Daily, # 90 capsule, 3 Refills, Maintenance, 08/18/23 16:04:00 EDT, [facility] #[id number], Partial fill upon patient request if the [...] 08/18/23 16:01:00 EDT, Route to Pharmacy Electronically, [facility] #[id number] Tablet, Partial fill upon ani... Start Date: 08/18/23 Stop Date: 08/17/24 Status: Ordered traZODone 100 mg oral tablet 200 mg, 2, tablet, By Mouth, Daily at bedtime, # 180 tablet, Refills 3, Tot. Refills 3, Maintenance, 10/05/21 17:36:00 EDT, Route to Pharmacy Electronically, [facility] #[id number], Partial fillupon patient request if the prescription [...] Team Personnel Name: Wild Woods RN Position: [facility] ED RN W/OE and Tasks Member Role: Primary Care Nurse Name: Esme Garcia RN Position: [facility] RN Member Role: Primary Care Nurse Name: Erich Dias RN Position: [facility] RN Member Role: Primary Care Nurse Name: Camila Vazquez RN Position: [facility] RN Member Role: Primary Care Nurse Name: Taylor Beck RN Position: [facility] RN Member Role: Primary Care Nurse Name: Amanda Moraes RN Position: [facility] RN Member Role: Primary Care Nurse Name: Mary Roberson RN Position: [facility] RN Member Role: Primary Care Nurse Name: Tomas Stauffer RN Position: [facility] RN Member Role: Primary Care Nurse Name: Balaji Mayo MD Position: [facility] Physician - Primary Care Member Role: PCP Address: Address: [address] [place] [address]- [place] Care Team Related Persons Name: ROSANA NAGY Address: home [address] [place] [id number] Name: GORAN QUINTERO
--- OUTSIDE RECORDS SUMMARY | 2023-12-30 12:57 | XMS_ITS | Continuity of Care Document ---
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 Name Role Phone Maria Esther URIAS, Balaji Quick Primary Care Physician [phone] Encounter [facility] ACCT R [id number] Date(s): 06/12/19 - 06/22/19 [facility] [address] [place] [address]- [facility] Attending Physician: Bertha Fried Admitting Physician: AdmBertha [...] acel(Tdap) 2 08/02/17 Given 1Result Comment: [02/15/2018] [id number] 2Result Comment: [08/02/2017] [facility] 82135-675-75 Medications Aspirin Tablet 81 mg, By Mouth, [...] TAKE 1 TABLET BY MOUTH EVERY DAY, [facility]/pharmacy #[id number] Start Date: 03/14/19 Status: Ordered cyclobenzaprine 5 mg oral tablet 1 tablet = 5 mg, By Mouth, 2 times a day, PRN as needed for muscle spasm, # 60 tablet, 2 Refills, Maintenance, 04/07/19 18:48:10 EST, Tablet, [facility]/pharmacy #[id number], 180, cm, 01/29/19 9:22:52 EDT, [...] 04/20/18 9:51:29 EST, Route to Pharmacy Electronically, [id number], [facility]/pharmacy#2070 Start Date: 04/20/18 Status: Ordered Flonase 50 mcg/inh nasal spray 2 sprays, Nares, Both, 2 times a day, # 16 Gm, 0 Refills, Maintenance, 11/16/18 10:23:39 EDT, [place] Start Date: 11/16/18 Status: Ordered isosorbide mononitrate 30 mg oral tablet, extended release 30 mg, 1, tablet, By Mouth, Daily in AM, # 90 tablet, Refills 1, Tot. Refills 1, Maintenance, 04/25/19 15:31:00 EST, Route to Pharmacy Electronically, [facility]/pharmacy #[id number], 180, cm, 01/29/19 9:22:00 EDT, Height, 109.8, kg, 07/19/17 9:26:00 EDT, Dry Weight Start Date: 04/25/19 Status: Ordered Lamictal 100 mg oral tablet 1 tablet = 100 mg, By Mouth, 2 times a day, 0 Refills, Maintenance, 12/16/14 12:57:08 Start Date: 12/16/14 Status: Ordered metoprolol 25 mg oral tablet 25 mg, 1, tablet, By Mouth, 2 times a day, # 60 tablet, Refills 2, Tot. Refills 2, Maintenance, 04/03/19 11:54:45 EST, Route to Pharmacy Electronically, [id number], [facility]/pharmacy #[id number], 180, cm, 01/29/19 9:22:52 EDT, Height, 1... Start Date: 04/03/19 Status: Ordered nitroglycerin 0.4 mg sublingual tablet [...] Status Current [facility] ker entered on: 02/15/18 Sex
--- OUTSIDE RECORDS SUMMARY | 2023-12-30 12:57 | XMS_ITS | Continuity of Care Document ---
Author Organization [facility] Rico Syed Aldair lt Address [address] [place] [address]- Care Team Providers Care Jewelry Technician Name Role Phone Balaji Mayo MD Primary Care Physician Encounter [facility] Date(s): 07/26/23 - 11/23/23 [facility] Rico Syed Adult [address] [place] [address]- Attending Physician: Balaji Mayo MD Allergies, Adverse [...] 23-valent vaccine 12/17/12 Recorded 1Result Comment: [02/15/2018] 06152-866-77 2Result Comment: [id number] 3Result Comment: [08/02/2017] [facility] 49475-320-19 Medications acetaminophen 325 mg oral tablet 650 [...] 3 Refills, Maintenance, 08/18/23 16:03:00 EDT, Tablet, [facility] #[id number], Partial fill upon patient request if the prescription is for a schedule II opioid drug., 183, cm, 08/09/23 10:49:00 EDT... Start Date: 08/18/23 Status: Ordered BuPROPion (Eqv-Wellbutrin SR) 150 mg/12 hours oral tablet, extended release 1 tablet = 150 mg, By Mouth, 2 times a day, # 180 tablet, 3 Refills, Maintenance, 10/05/21 17:37:00EDT, SR Tablet, [facility] #[id number], Partial fill upon patient request if the prescription is for a schedule II opioid drug., 182, cm, 09/10/21... Start Date: 10/05/21 Status: Ordered cefadroxil 500 mg oral capsule 1 capsule = 500 mg, By Mouth, Every 12 hours, for 10 days, # 20 capsule, 0 Refills, Acute 12/03/23 6:56:00 EDT, 11/23/23 6:56:00 EDT, Capsule, Partial fill upon patient request if the prescription isfor a schedule II opioid drug. Start Date: 11/23/23 Stop Date: 12/03/23 Status: Ordered docusate sodium 100 mg oral [...] 3 Refills, Maintenance, 10/05/21 17:34:00 EDT, Capsule, [facility] #[id number], Partial fill upon patient request if the prescription is for a schedule II opioid drug., 182, cm, 09/10/21 8:13:00 E... Start Date: 10/05/21 Status: Ordered fluticasone 50 mcg/inh nasal spray 1 sprays = 50 mcg, Nares, Both, 2 times a day, PRN allergies, # 16 Gm, 11 Refills, Maintenance, 08/18/23 16:05:00 EDT, [place], [facility] #[id number], Partial fill upon patient request if the [...] 11 Refills, Maintenance, 08/18/23 16:04:00 EDT, Tablet, [facility] #[id number], Partial fill upon patient request if the prescription is for a schedule II opioid dr... Start Date: 08/18/23 Status: Ordered Norvasc 2.5 mg oral tablet 2.5 mg, 1, tablet, By Mouth, Daily, # 90 tablet, Refills 3, Tot. Refills 3, Maintenance, 08/18/23 16:02:00 EDT, Route to Pharmacy Electronically, [facility] #[id number], Partial fill upon patient request if the prescription is for a schedule II o... Start Date: 08/18/23 Status: Ordered omeprazole 20 mg oral enteric coated capsule 1 capsule = 20 mg, By Mouth, Daily, # 90 capsule, 3 Refills, Maintenance, 08/18/23 16:04:00 EDT, [facility] #[id number], Partial fill upon patient request if the prescription is for a schedule II opioid drug., 183, cm, 08/09/23 10:49:00 EDT, [place]... Start Date: 08/18/23 Status: Ordered ondansetron 4 mg oral tablet 1 tablet = 4 mg, By Mouth, Every 8 hours, PRN Nausea & Vomiting, for 5 days, # 15 tablet, 0 Refills, Acute 11/28/23 6:56:00 EDT, 11/23/23 6:56:00 EDT, Tablet, Partial fill upon patient request ifthe prescription is for a schedule II opioid drug. Start Date: 11/23/23 Stop Date: 11/28/23 Status: Ordered oxyCODONE 5 mg oral tablet See Instructions, PRN, 1-2 tablets By Mouth Every 4 hours, # 84 tablet, Refills 0, Tot. Refills 0, Acute 11/30/23 8:00:00 EDT, Pain , Severe, 11/23/23 6:57:00 EDT, Instructions Replace Required Details, Print Requisition, Partial fill upon patient req... Start Date: 11/23/23 Stop Date: 11/30/23 Status: Ordered QUEtiapine 400 mg oral tablet, [...] 08/18/23 16:01:00 EDT, Route to Pharmacy Electronically, [facility] #[id number] Tablet, Partial fill upon ani... Start Date: 08/18/23 Stop Date: 08/17/24 Status: Ordered traMADol 50 mg oral tablet See Instructions, PRN Pain , Mild, 1-2 tablets By Mouth Every 6 hours not to exceed 400 mg/day, # 56 tablet, 0 Refills, Acute 11/30/23 8:00:00 EDT, 11/23/23 6:57:00 EDT, Tablet, Partial fill upon patient request if the prescription is for a schedule... Start Date: 11/23/23 Stop Date: 11/30/23 Status: Ordered traZODone 100 mg oral tablet 200 mg, 2, tablet, By Mouth, Daily at bedtime, # 180 tablet, Refills 3, Tot. Refills 3, Maintenance, 10/05/21 17:36:00 EDT, Route to Pharmacy Electronically, [facility] #[id number], Partial fillupon patient request if the prescription [...] Team Personnel Name: Wild Woods RN Position: [facility] ED RN W/OE and Tasks Member Role: Primary Care Nurse Name: Esme aGrcia RN Position: [facility] RN Member Role: Primary Care Nurse Name: Erich Dias RN Position: [facility] RN Member Role: Primary Care Nurse Name: Camila Vazquez RN Position: [facility] RN Member Role: Primary Care Nurse Name: Taylor Beck RN Position: [facility] RN Member Role: Primary Care Nurse Name: Amanda Moraes RN Position: [facility] RN Member Role: Primary Care Nurse Name: Nicole Neville RN Position: [facility] RN Member Role: Primary Care Nurse Name: Mary Roberson RN Position: [facility] RN Member Role: Primary Care Nurse Name: Tomas Stauffer RN Position: [facility] RN Member Role: Primary Care Nurse Name: Balaji Mayo MD Position: [facility] Physician - Primary Care Member Role: PCP Address: Address: [address] [place] [address]- Name: Ashley Khanna RN Position: [facility] RN Member Role: Primary Care Nurse Care Team Related Persons Name: ROSANA NAGY Address: [address] [address] Name: GORAN QUINTERO
--- OUTSIDE RECORDS SUMMARY | 2023-12-30 12:57 | XMS_ITS | Continuity of Care Document ---
Author Organization [facility] Kunal Aldair lt Address [address] [place] [address]- Care Team Providers Care House Mover Name Role Phone Maria Esther URIAS, Balaji Quick Primary Care Physician [phone] Encounter [facility] Date(s): 04/19/23 - 05/19/23 [facility] Adult [address] [place] [address]- Allergies, Adverse Reactions, Alerts Substance Reaction Severity [...] 23-valent vaccine 12/17/12 Recorded 1Result Comment: [02/15/2018] 41565-360-90 2Result Comment: [id number] 3Result Comment: [08/02/2017] [facility] 20337-244-51 Medications Aspirin Low Dose 81 mg oral delayed release tablet 1 tablet, By Mouth, Daily, # 90 tablet, 3 Refills, Maintenance, 11/08/22 11:19:00 EDT, [facility] #[id number], 184, cm, 11/03/22 11:28:00 EDT, Height, 106.3, kg, 09/13/22 12:30:00 EDT, Dry Weight Start Date: 11/08/22 Status: Ordered atorvastatin 80 mg oral tablet 1 tablet = 80 mg, By Mouth, Daily, # 90 tablet, 3 Refills, Maintenance, 12/05/22 4:30:00 EDT, Tablet, [facility] #[id number], Partial fill upon patient request if the prescription is for a schedule II opioid drug., 183, cm, 11/10/22 17:28:00 EDT,... Start Date: 12/05/22 Status: Ordered BuPROPion (Eqv-Wellbutrin SR) 150 mg/12 hours oral tablet, extended release 1 tablet = 150 mg, By Mouth, 2 times a day, # 180 tablet, 3 Refills, Maintenance, 10/05/21 17:37:00EDT, SR Tablet, [facility] #[id number], Partial fill upon patient request if the prescription is for a schedule II opioid drug., 182, cm, 09/10/21... Start Date: 10/05/21 Status: Ordered clopidogrel 75 mg oral tablet 1, tablet, By Mouth, Daily, # 90 tablet, Refills 3, Maintenance, 01/13/23 16:50:00 EDT, Route to Pharmacy Electronically, [facility] #[id number], 183, cm, 12/05/22 16:08:00 EDT, Height, 106.3, kg, 09/13/22 12:30:00 EDT, Dry Weight Start Date: 01/13/23 Status: Ordered Flonase 50 mcg/inh nasal spray 1 sprays = 50 mcg, Nares, Both, 2 times a day, # 16 Gm, 5 Refills, Maintenance, 09/15/22 8:26:00 EDT, Nasal [place], [facility] #[id number], Partial fill upon patient request if the prescription is for a schedule II opioid drug., 1 sprays Nares, Tolu... Start Date: 09/15/22 Status: Ordered FLUoxetine 40 mg oral capsule 1 capsule = 40 mg, By Mouth, Daily, # 90 capsule, 3 Refills, Maintenance, 10/05/21 17:34:00 EDT, Capsule, [facility] #[id number], Partial fill upon patient request if the [...] 11 Refills, Maintenance, 11/30/22 6:36:00 EDT, Tablet, [facility] #[id number], Partial fill upon patient requestif the prescription [...] capsule, 1 Refills, Maintenance, 09/28/22 9:21:00 EDT, [facility] #[id number], Partial fill upon patient request if the [...] 10/05/21 17:36:00 EDT, Route to Pharmacy Electronically, [facility] #[id number], Partial fillupon patient request if the prescription [...] Care Nurse Name: Esme Garcia RN Position: [facility] RN Member [...] Primary Care Member Role: PCP Address: Address: [address] [place] [address]- Care Team Related Persons Name: YAKOV ROSANA Address: home [address] [place] [id number] Name: GORAN QUINTERO
--- OUTSIDE RECORDS SUMMARY | 2023-12-30 12:57 | XMS_ITS | Continuity of Care Document ---
Author Organization [facility] Address [address] [place] [address]- Care Team Providers Care Remote Medical Coder Name Role Phone Maria Esther URIAS, Balaji Quick Primary Care Physician [place] [facility] [place]/20 [facility] [address] [place], [place] [address] Attending Physician: Rose HYATT, Key Han Admitting [...] acel(Tdap) 2 08/02/17 Given 1Result Comment: [02/15/2018] [id number] 2Result Comment: [08/02/2017] [facility] 60820-083-45 Medications amLODIPine 5 mg oral tablet 5 mg, 1, tablet, By Mouth, Daily, REFAX TO [facility] PER DR COTTRELL, # 90 tablet, Refills 3, Tot.Refills 3, Maintenance, 01/16/20 15:03:00 EDT, Route to Pharmacy Electronically, [facility] #[id number], 180, cm, 12/03/19 13:50:00 EDT, Height Start Date: 01/16/20 Status: Ordered Aspirin Tablet 81 mg, By Mouth, Daily, Maintenance, 04/15/13 17:02:08 Start Date: 04/15/13 Status: Ordered atorvastatin 80 mg oral tablet 1 tablet = 80 mg, By Mouth, Daily in AM, REFAX TO [facility] PER DR COTTRELL, # 90 tablet, 1 Refills, Maintenance, 01/16/20 15:04:00 EDT, Tablet, [facility] #[id number], 180, cm, 12/03/19 13:50:00 EDT, Height, Dry [...] 01/16/20 15:09:00 EDT, Route to Pharmacy Electronically, [facility] #[id number], 180, cm, 12/03/19 13:50:00 EDT, Height Start Date: 01/16/20 Status: Ordered cyclobenzaprine 5 mg oral tablet 1 tablet, By Mouth, 2 times a day, PRN NEEDED FOR MUSCLE SPASM, # 60 tablet, 0 Refills, Acute, 06/11/20 15:48:00 EST, [facility] #[id number], 180, cm, 03/04/20 8:59:00 EST, Height Start [...] 01/16/20 15:06:00 EDT, Route to Pharmacy Electronically, [facility] #[id number], 180, cm, 0... Start Date: 01/16/20 Status: Ordered Flomax 0.4 mg oral capsule 0.4 mg, 1, capsule, By Mouth, Daily, REFAX TO [facility] PER DR COTTRELL, # 90 capsule, Refills 1, Tot. Refills 1, Maintenance, 01/16/20 15:08:00 EDT, Route to Pharmacy Electronically, [facility] #[id number], 180, cm, 12/03/19 13:50:00 EDT, Height Start Date: 01/16/20 Status: Ordered isosorbide mononitrate 30 mg oral tablet, extended release 1 tablet, By Mouth, Daily in AM, REFAX TO [facility] PER DR COTTRELL, # 90 tablet, 1 Refills, Maintenance, 01/16/20 15:07:00 EDT, [facility] #[id number], 180, cm, 12/03/19 13:50:00 EDT, Height Start Date: 01/16/20 Status: Ordered Lamictal 100 mg oral tablet 1 tablet = 100 mg, By Mouth, 2 times a day, 0 Refills, Maintenance, 12/16/14 12:57:08 Start Date: 12/16/14 Status: Ordered Lidoderm 5% film See Instructions, Apply to affected area Topically Daily remove patches after 12 hours REFAX TO [facility] PER DR COTTRELL, # 30 patch, 5 Refills, Maintenance, 01/16/20 15:07:00 EDT, [facility] #[id number], Apply to affected area Topically Thomas... Start Date: 01/16/20 Status: Ordered metoprolol 25 mg oral tablet 25 mg, 1, tablet, By Mouth, 2 times a day, REFAX TO [facility] PER DR COTTRELL, # 180 tablet, Refills 1, Tot. Refills 1, Maintenance, 01/16/20 15:08:00 EDT, Route to Pharmacy Electronically, [facility] #[id number], 180, cm, 12/03/19 13:50:00 EDT,... Start Date: 01/16/20 Status: Ordered nitroglycerin 0.4 mg sublingual tablet 1 tablet = 0.4 mg, Sublingual, Every 5 minutes, PRN for chest pain, # 100 tablet, 0 Refills, Maintenance, 04/10/20 15:29:00 EST, Tablet, [facility] #[id number], Partial fill upon patient requestif the prescription is for a schedule II opioid lisa... Start Date: 04/10/20 Status: Ordered oxybutynin 5 mg/24 hours oral tablet, extended release 1 tablet = 5 mg, By Mouth, Daily at bedtime, # 30 tablet, 3 Refills, Maintenance, 02/13/20 23:02:00EDT, ER Tablet, [facility] #[id number], 180, cm, 12/03/19 13:50:00 EDT, Height Start [...]
--- OUTSIDE RECORDS SUMMARY | 2023-12-30 12:57 | XMS_ITS | Continuity of Care Document ---
Author Organization [facility] Kunal Aldair lt Address [address] [place] [address]- Care Team Providers Care Card Grader Name Role Phone Maria Esther URIAS, Balaji Quick Primary Care Physician [phone] Encounter [facility] Date(s): 03/13/23 - 04/12/23 [facility] Adult [address] [place] [address]- Allergies, Adverse Reactions, Alerts Substance Reaction Severity [...] 23-valent vaccine 12/17/12 Recorded 1Result Comment: [02/15/2018] [id number] 2Result Comment: [id number] 3Result Comment: [08/02/2017] [facility] 64748-397-33 Medications Aspirin Low Dose 81 mg oral delayed release tablet 1 tablet, By Mouth, Daily, # 90 tablet, 3 Refills, Maintenance, 11/08/22 11:19:00 EDT, [facility] #[id number], 184, cm, 11/03/22 11:28:00 EDT, Height, 106.3, kg, 09/13/22 12:30:00 EDT, Dry Weight Start Date: 11/08/22 Status: Ordered atorvastatin 80 mg oral tablet 1 tablet = 80 mg, By Mouth, Daily, # 90 tablet, 3 Refills, Maintenance, 12/05/22 4:30:00 EDT, Tablet, [facility] #[id number], Partial fill upon patient request if the prescription is for a schedule II opioid drug., 183, cm, 11/10/22 17:28:00 EDT,... Start Date: 12/05/22 Status: Ordered BuPROPion (Eqv-Wellbutrin SR) 150 mg/12 hours oral tablet, extended release 1 tablet = 150 mg, By Mouth, 2 times a day, # 180 tablet, 3 Refills, Maintenance, 10/05/21 17:37:00EDT, SR Tablet, [facility] #[id number], Partial fill upon patient request if the prescription is for a schedule II opioid drug., 182, cm, 09/10/21... Start Date: 10/05/21 Status: Ordered clopidogrel 75 mg oral tablet 1, tablet, By Mouth, Daily, # 90 tablet, Refills 3, Maintenance, 01/13/23 16:50:00 EDT, Route to Pharmacy Electronically, [facility] #[id number], 183, cm, 12/05/22 16:08:00 EDT, Height, 106.3, kg, 09/13/22 12:30:00 EDT, Dry Weight Start Date: 01/13/23 Status: Ordered Flonase 50 mcg/inh nasal spray 1 sprays = 50 mcg, Nares, Both, 2 times a day, # 16 Gm, 5 Refills, Maintenance, 09/15/22 8:26:00 EDT, Nasal [place], [facility] #[id number], Partial fill upon patient request if the prescription is for a schedule II opioid drug., 1 sprays Nares, Tolu... Start Date: 09/15/22 Status: Ordered FLUoxetine 40 mg oral capsule 1 capsule = 40 mg, By Mouth, Daily, # 90 capsule, 3 Refills, Maintenance, 10/05/21 17:34:00 EDT, Capsule, [facility] #[id number], Partial fill upon patient request if the [...] 11 Refills, Maintenance, 11/30/22 6:36:00 EDT, Tablet, [facility] #83105, Partial fill upon patient requestif the prescription [...] capsule, 1 Refills, Maintenance, 09/28/22 9:21:00 EDT, [facility] #[id number], Partial fill upon patient request if the [...] 10/05/21 17:36:00 EDT, Route to Pharmacy Electronically, [facility] #[id number], Partial fillupon patient request if the prescription [...] Team Personnel Name: [place] RN Position: [facility] ED RN W/OE and Tasks Member Role: Primary Care Nurse Name: Esme Garcia RN Position: [facility] RN Member Role: Primary Care Nurse Name: Erich Dias RN Position: [facility] RN Member Role: Primary Care Nurse Name: Camila Vazquez RN Position: [facility] RN Member Role: Primary Care Nurse Name: Taylor Beck RN Position: [facility] RN Member Role: Primary Care Nurse Name: Amanda Garibay RN Position: [facility] RN Member Role: Primary Care Nurse Name: Mary Roberson RN Position: [facility] RN Member Role: Primary Care Nurse Name: Tomas Stauffer RN Position: [facility] RN Member Role: Primary Care Nurse Name: Balaji Mayo MD Position: [facility] Physician - Primary Care Member Role: PCP Address: Address: [address] [place] [address] [place] [address]- [place] Care Team Related Persons Name: YAKOV ROSANA Address: home [address] [place] [address] Name: GORAN QUINTERO
--- OUTSIDE RECORDS SUMMARY | 2023-12-30 12:57 | XMS_ITS | Continuity of Care Document ---
Author Organization [facility] Kunla Aldair lt Address [address] [place] [address]- Care Team Providers Care Voice Intercept Technician Name Role Phone Maria Esther URIAS, Balaji Quick Primary Care Physician En[place] [facility] [place] Date(s): 01/07/21 - 02/06/21 [facility] Adult [address] [place] [address]- Attending Physician: Admtr, [id number] Admitting Physician: Admtr, [...] acel(Tdap) 2 08/02/17 Given 1Result Comment: [02/15/2018] [id number] 2Result Comment: [08/02/2017] [facility] 38813-043-36 Medications amLODIPine 5 mg oral tablet 2.5 [...] 09/14/20 12:44:00 EDT, Route to Pharmacy Electronically, [facility] #[id number], 180, cm, 09/07/20 10:33:00 EDT, Height Start Date: 09/14/20 Status: Ordered Flonase 50 mcg/inh nasal spray 1 sprays = 50 mcg, Nares, Both, 2 times a day, # 16 Gm, 5 Refills, Maintenance, 09/29/20 16:49:00 EDT, Nasal [place], [facility] #[id number], Partial fill upon patient request if the [...] 09/13/20 6:59:00 EDT, Route to Pharmacy Electronically, [facility] #[id number], Partial fill upon patient request if the [...] tablet, 0 Refills, Maintenance, 09/14/20 12:44:00 EDT, [facility] #[id number], 180, cm, 09/07/20 10:33:00 EDT, Height Start [...] Maintenance, :58:00 EDT, Route to Pharmacy Electronically, [facility] #[id number], Partial fill upon patient request if the [...] Type Response Smoking Status Current some day [facility] kayla entered on: 02/15/18 Sex
--- OUTSIDE RECORDS SUMMARY | 2023-12-30 12:57 | XMS_ITS | Continuity of Care Document ---
Author Organization [facility] Kunal Aldair Address [address] [place] [address]- Care Team Providers Care Clinical Specialist Medical Device Name Role Phone Maria Esther URIAS, Balaji Quick Primary Care Physician [place] [facility] [place] 09/10/20 - 10/10/20 [facility] Adult [address] [place] [address]- Allergies, Adverse Reactions, Alerts Substance Reaction Severity [...] acel(Tdap) 2 08/02/17 Given 1Result Comment: [02/15/2018] [id number] 2Result Comment: [08/02/2017] [facility] 90872-536-93 Medications amLODIPine 5 mg oral tablet 2.5 [...] 09/14/20 12:44:00 EDT, Route to Pharmacy Electronically, [facility] #[id number], 180, cm, 09/07/20 10:33:00 EDT, Height Start Date: 09/14/20 Status: Ordered Flonase 50 mcg/inh nasal spray 1 sprays = 50 mcg, Nares, Both, 2 times a day, # 16 Gm, 5 Refills, Maintenance, 09/29/20 16:49:00 EDT, Nasal [place], [facility] #56181, Partial fill upon patient request if the [...] 09/13/20 6:59:00 EDT, Route to Pharmacy Electronically, [facility] #[id number], Partial fill upon patient request if the [...] tablet, 0 Refills, Maintenance, 09/14/20 12:44:00 EDT, [facility] #[id number], 180, cm, 09/07/20 10:33:00 EDT, Height Start [...] Maintenance, 217:58:00 EDT, Route to Pharmacy Electronically, [facility] #[id number], Partial fill upon patient request if the [...]
--- OUTSIDE RECORDS SUMMARY | 2023-12-30 12:57 | XMS_ITS | Continuity of Care Document ---
Author Organization [facility] Address [address] [place] [address]- Care Team Providers Care Carpenter Mine Name Role Phone Maria Esther URIAS, Balaji Quick Primary Care Physician [phone] [place] [facility] [place]s): 11/25/22 - 12/25/22 [facility] [address] [place] [address] Allergies, Adverse Reactions, Alerts Substance [...] pneumococcal 23-valent vaccine 12/17/12 Recorded 1Result Comment: [id number] 2Result Comment: [02/15/2018] [id number] 3Result Comment: [08/02/2017] [facility] 27489-107-64 Medications amLODIPine 10 mg oral tablet 10 mg, 1, tablet, By Mouth, Daily, # 90 tablet, Refills 3, Tot. Refills 3, Maintenance, 10/26/22 13:35:00 EDT, Route to Pharmacy Electronically, [email or web address] #[id number], Partial fill upon patientrequest if the prescription is for a schedule II op... Start Date: 10/26/22 Status: Ordered Aspirin Low Dose 81 mg oral delayed release tablet 1 tablet, By Mouth, Daily, # 90 tablet, 3 Refills, Maintenance, 11/08/22 11:19:00 EDT, [email or web address] #[id number], 184, cm, 11/03/22 11:28:00 EDT, Height, 106.3, kg, 09/13/22 12:30:00 EDT, Dry Weight Start Date: 11/08/22 Status: Ordered atorvastatin 80 mg oral tablet 1 tablet = 80 mg, By Mouth, Daily, # 90 tablet, 3 Refills, Maintenance, 12/05/22 4:30:00 EDT, Tablet, [email or web address] #[id number], Partial fill upon patient request if the prescription is for a schedule II opioid drug., 183, cm, 11/10/22 17:28:00 EDT,... Start Date: 12/05/22 Status: Ordered BuPROPion (Eqv-Wellbutrin SR) 150 mg/12 hours oral tablet, extended release 1 tablet = 150 mg, By Mouth, 2 times a day, # 180 tablet, 3 Refills, Maintenance, 10/05/21 17:37:00EDT, SR Tablet, [facility] #[id number], Partial fill upon patient request if the prescription is for a schedule II opioid drug., 182, cm, 09/10/21... Start Date: 10/05/21 Status: Ordered clopidogrel 75 mg oral tablet 1, tablet, By Mouth, Daily, # 90 tablet, Refills 0, Maintenance, 10/07/22 6:36:00 EDT, Route to Pharmacy Electronically, [facility] #[id number], 184, cm, 09/28/22 9:02:00 EDT, Height, 106.3, kg,09/13/22 12:30:00 EDT, Dry Weight Start Date: 10/07/22 Status: Ordered Flonase 50 mcg/inh nasal spray 1 sprays = 50 mcg, Nares, Both, 2 times a day, # 16 Gm, 5 Refills, Maintenance, 09/15/22 8:26:00 EDT, Nasal [place], [email or web address] #[id number], Partial fill upon patient request if the [...] 3 Refills, Maintenance, 10/05/21 17:34:00 EDT, Capsule, [email or web address] #[id number], Partial fill upon patient request if the prescription is for a schedule II opioid drug., 182, cm, 09/10/21 8:13:00 E... Start Date: 10/05/21 Status: Ordered isosorbide mononitrate 30 mg oral tablet, extended release 1 tablet, By Mouth, Daily in AM, # 90 tablet, 3 Refills, Maintenance, 10/20/22 16:40:00 EDT, [email or web address] #[id number], 184, cm, 09/28/22 9:02:00 EDT, Height, 106.3, [...] tablet, 5 Refills, Maintenance, 09/18/22 18:55:00 EDT, [email or web address] #38851, 184, cm, 09/15/22 9:12:00 EDT, Height, 106.3, kg, 09/13/22 12:30:00 EDT, Dry Weight Start Date: 09/18/22 Status: Ordered Nitrostat 0.4 mg sublingual tablet 1 tablet = 0.4 mg, Sublingual, Every 5 minutes, PRN Chest Pain, prn, # 30 tablet, 11 Refills, Maintenance, 11/30/22 6:36:00 EDT, Tablet, [facility] #83393, Partial fill upon patient requestif the prescription is for a schedule II opioid lisa... Start Date: 11/30/22 Status: Ordered omeprazole 20 mg oral enteric coated capsule 1 capsule = 20 mg, By Mouth, Daily, # 30 capsule, 1 Refills, Maintenance, 09/28/22 9:21:00 EDT, [email or web address] #[id number], Partial fill upon patient request if the [...] 10/05/21 17:36:00 EDT, Route to Pharmacy Electronically, [email or web address] #[id number], Partial fillupon patient request if the prescription [...] Team Personnel Name: [place] RN Position: [facility] ED RN W/OE and Tasks Member Role: Primary Care Nurse Name: Erich Dias RN Position: [facility] RN Member Role: Primary Care Nurse Name: Camila Vazquez RN Position: [facility] RN Member Role: Primary Care Nurse Name: Taylor Beck RN Position: [facility] RN Member Role: Primary Care Nurse Name: Amanda Garibay RN Position: [facility] RN Member Role: Primary Care Nurse Name: Mary Roberson RN Position: [facility] RN Member Role: Primary Care Nurse Name: Tomas Stauffer RN Position: [facility] RN Member Role: Primary Care Nurse Name: Balaji Mayo MD Position: [facility] Physician - Primary Care Member Role: PCP Address: Address: [address] [place] [address]- Name: Fadumo Conti RN Position: [facility] RN Member Role: Primary Care Nurse Care Team Related Persons Name: ROSANA NAGY Address: home [address] [place] [address] Name: GORAN QUINTERO
--- OUTSIDE RECORDS SUMMARY | 2023-12-30 12:58 | XMS_ITS | Continuity of Care Document ---
Author Organization [facility] Kunal Aldair lt Address [address] [place] [address]- Care Team Providers Care Reclaimer Name Role Phone Maria Esther URIAS, Balaji Quick Primary Care Physician Encounter [facility] Date(s): 10/06/21 - 11/05/21 [facility] Adult [address] [place] [address]- Allergies, Adverse Reactions, Alerts Substance Reaction Severity [...] 23-valent vaccine 12/17/12 Recorded 1Result Comment: [02/15/2018] [id number] 2Result Comment: [08/02/2017] [facility] 64049-516-26 Medications aspirin 81 mg oral delayed release tablet = 81 mg, By Mouth, Daily, # 90 tablet, 3 Refills, Maintenance, 10/05/21 17:34:00 EDT, EC Tablet, [facility] #[id number], Partial fill upon patient request if the prescription is for a schedule II opioid drug., 182, cm, 09/10/21 8:13:00 EDT, Heigh... Start Date: 10/05/21 Status: Ordered atorvastatin 80 mg oral tablet 1 tablet = 80 mg, By Mouth, Daily, # 90 tablet, 3 Refills, Maintenance, 10/05/21 17:34:00 EDT, Tablet, [email or web address] #[id number], Partial fill upon patient request if the prescription is for a schedule II opioid drug., 182, cm, 09/10/21 8:13:00 EDT,... Start Date: 10/05/21 Status: Ordered BuPROPion (Eqv-Wellbutrin SR) 150 mg/12 hours oral tablet, extended release 1 tablet = 150 mg, By Mouth, 2 times a day, # 180 tablet, 3 Refills, Maintenance, 10/05/21 17:37:00EDT, SR Tablet, [email or web address] #[id number], Partial fill upon patient request if the prescription is for a schedule II opioid drug., 182, cm, 09/10/21... Start Date: 10/05/21 Status: Ordered clopidogrel 75 mg oral tablet 1, tablet, By Mouth, Daily, # 90 tablet, Refills 3, Tot. Refills 3, Maintenance, 10/05/21 17:34:00 EDT, Route to Pharmacy Electronically, [email or web address] #[id number], 182, cm, 09/10/21 8:13:00 EDT, Height, 102.7, [...] 5 Refills, Maintenance, 09/29/20 16:49:00 EDT, Nasal [place], [email or web address] #[id number], Partial fill upon patient request if the prescription is for a schedule II opioid drug., 1 sprays Nares, B... Start Date: 09/29/20 Status: Ordered FLUoxetine 40 mg oral capsule 1 capsule = 40 mg, By Mouth, Daily, # 90 capsule, 3 Refills, Maintenance, 10/05/21 17:34:00 EDT, Capsule, [email or web address] #[id number], Partial fill upon patient request if the [...] 90 tablet, 3 Refills, 10/05/21 17:35:00 EDT, [facility] #[id number], 182, cm, 09/10/21 8:13:00 EDT, Height, 102.7, [...] 10/06/21 14:57:00 EDT, Route to Pharmacy Electronically, [email or web address] #[id number], Partial fill upon patient request if the prescription is for a sche... Start Date: 10/06/21 Stop Date: 10/01/22 Status: Ordered lidocaine 5% topical film 1 patch, Topically, Daily, PRN Pain , Mild, remove after 12 hours, # 30 patch, 11 Refills, Maintenance, 02/20/21 7:32:00 EDT, Patch, [facility], Partial fill upon patient request if the prescription is for a schedule II opioid drug., 1 patch T... Start Date: 02/20/21 Status: Ordered metoprolol 25 mg oral tablet 12.5 mg, 0.5, tablet, By Mouth, 2 times a day, # 90 tablet, Refills 3, Tot. Refills 3, Maintenance,10/05/21 17:40:00 EDT, Route to Pharmacy Electronically, [facility] #[id number], Partial fill upon patient request if the prescription is for a sc... Start Date: 10/05/21 Status: Ordered QUEtiapine 400 mg oral tablet, extended release 400 mg, 1, tablet, By Mouth, Daily in PM, # 90 tablet, Refills 1, Tot. Refills 1, Maintenance, 10/05/21 17:36:00 EDT, Route to Pharmacy Electronically, [email or web address] #[id number], Partial fill upon patient request if the prescription is for a schedul... Start Date: 10/05/21 Status: Ordered RESIDENTIAL VISIT FREQUENCY RESIDENTIAL VISIT FREQUENCY, See Instructions, # 1 each, Refills 0, Tot. Refills 0, Maintenance, PLEASE INCREASE RESIDENTIAL VISITS TO TWICE A DAY FOR MEDICATION MANAGEMENT AND ADMINISTRATION., 10/06/21 15:08:00 EDT, Supply Start Date: 10/06/21 Status: Ordered traZODone 100 mg oral tablet 200 mg, 2, tablet, By Mouth, Daily at bedtime, # 180 tablet, Refills 3, Tot. Refills 3, Maintenance, 10/05/21 17:36:00 EDT, Route to Pharmacy Electronically, [email or web address] #[id number], Partial fillupon patient request if the prescription [...]
--- OUTSIDE RECORDS SUMMARY | 2023-12-30 12:58 | XMS_ITS | Continuity of Care Document ---
Author Organization [facility] Address [address] [place] [address]- Care Team Providers Care Hang Gliding Instructor Name Role Phone Maria Esther URIAS, Balaji Quick Primary Care Physician Encounter [facility] Date(s): 02/23/22 - 03/02/22 [facility] [address] [place], [place] [address] Attending Physician: Rose HYATT, Key Hna Admitting Physician: Rose HYATT, Key Han Referring [...] pneumococcal 23-valent vaccine 12/17/12 Recorded 1Result Comment: [id number] 2Result Comment: [02/15/2018] 66727-286-73 3Result Comment: [08/02/2017] [facility] 21083-875-93 Medications aspirin 81 mg oral delayed release tablet = 81 mg, By Mouth, Daily, # 90 tablet, 3 Refills, Maintenance, 10/05/21 17:34:00 EDT, EC Tablet, [facility] #[id number], Partial fill upon patient request if the prescription is for a schedule II opioid drug., 182, cm, 09/10/21 8:13:00 EDT, Heigh... Start Date: 10/05/21 Status: Ordered atorvastatin 80 mg oral tablet 1 tablet = 80 mg, By Mouth, Daily, # 90 tablet, 3 Refills, Maintenance, 10/05/21 17:34:00 EDT, Tablet, [facility] #[id number], Partial fill upon patient request if the prescription is for a schedule II opioid drug., 182, cm, 09/10/21 8:13:00 EDT,... Start Date: 10/05/21 Status: Ordered BuPROPion (Eqv-Wellbutrin SR) 150 mg/12 hours oral tablet, extended release 1 tablet = 150 mg, By Mouth, 2 times a day, # 180 tablet, 3 Refills, Maintenance, 10/05/21 17:37:00EDT, SR Tablet, [facility] #[id number], Partial fill upon patient request if the prescription is for a schedule II opioid drug., 182, cm, 09/10/21... Start Date: 10/05/21 Status: Ordered clopidogrel 75 mg oral tablet 1, tablet, By Mouth, Daily, # 90 tablet, Refills 3, Tot. Refills 3, Maintenance, 10/05/21 17:34:00 EDT, Route to Pharmacy Electronically, [facility] #[id number], 182, cm, 09/10/21 8:13:00 EDT, Height, 102.7, [...] 5 Refills, Maintenance, 09/29/20 16:49:00 EDT, Nasal [place], [facility] #[id number], Partial fill upon patient request if the prescription is for a schedule II opioid drug., 1 sprays Nares, B... Start Date: 09/29/20 Status: Ordered FLUoxetine 40 mg oral capsule 1 capsule = 40 mg, By Mouth, Daily, # 90 capsule, 3 Refills, Maintenance, 10/05/21 17:34:00 EDT, Capsule, [facility] #[id number], Partial fill upon patient request [...] 90 tablet, 3 Refills, 10/05/21 17:35:00 EDT, [facility] #[id number], 182, cm, 09/10/21 8:13:00 EDT, Height, 102.7, [...] 10/06/21 14:57:00 EDT, Route to Pharmacy Electronically, [facility] #[id number], Partial fill upon patient request if the prescription is for a sche... Start Date: 10/06/21 Stop Date: 10/01/22 Status: Ordered lidocaine 5% topical film 1 patch, Topically, Daily, PRN Pain , Mild, remove after 12 hours, # 30 patch, 11 Refills, Maintenance, 02/20/21 7:32:00 EDT, Patch, [facility], Partial fill upon patient request if the prescription is for a schedule II opioid drug., 1 patch T... Start Date: 02/20/21 Status: Ordered metoprolol 25 mg oral tablet 12.5 mg, 0.5, tablet, By Mouth, 2 times a day, # 90 tablet, Refills 3, Tot. Refills 3, Maintenance,10/05/21 17:40:00 EDT, Route to Pharmacy Electronically, [facility] #[id number], Partial fill upon patient request if the prescription is for a sc... Start Date: 10/05/21 Status: Ordered QUEtiapine 400 mg oral tablet, extended release 400 mg, 1, tablet, By Mouth, Daily in PM, # 90 tablet, Refills 1, Tot. Refills 1, Maintenance, 10/05/21 17:36:00 EDT, Route to Pharmacy Electronically, [facility] #[id number], Partial fill upon patient request if the [...] 10/05/21 17:36:00 EDT, Route to Pharmacy Electronically, [facility] #[id number], Partial fillupon patient request if the prescription [...] oldest [Reference Range]: 1 Height 182 cm (02/23/22 2:02 PM) Weight 104.5 kg (02/23/22 2:02 PM) Pulse Rate [55-90 bpm] 59 bpm (02/23/22 2:02 PM) Body Mass Index [18.5-24.99 kg/m2] 31.55 kg/m2 *>HHI* (02/23/22 2:02 PM) Blood Pressure [90-138/55-84 mm Hg] 138/ 80mm Hg (02/23/22 2:02 PM) Blood pressure sites Arm, right (02/23/22 2:02 PM) Weight Obtained Via Patient/family state d (02/23/22 2:02 PM) Social History Social History Type Response Smoking Status Current some day [facility] entered on: 02/15/18 Sex Note * Key Coy: PERFORM, SIGN, VERIFY Event Display: Patient Education/Instruction Authored Date: [id number] [facility] *[facility] [address] Clinical Summary Name ALIYA NAGY Age 66 Years 1955 PCP Maria Esther URIAS, Balaji Quick PCP Visit Date 02/23/2022 13:13:00 Additional Instructions: Scheduled Appointments?? Future Appointments ?*[facility]??[facility] ?[address] ?Phone:??--?Fax:??-- ?Appt. Date:??04/27/2022?10:20 AM ?Scheduled Provider:??Maria Esther URIAS, Balaji Quick Follow-Up Instructions ?? Diagnosis Medications: Please continue [...] tab(s) Oral Daily. Refills: 3. Next Dose: Docusate-Senna (Docusate/Senna Tablet) 1 tab(s) Oral twice a day as needed Constipation. Next Dose: Durable Medical Equipment (Hinged left knee brace) DX: left knee pain arthritis M25.562 SHERMAN 99 MOS.Refills: 0. Next Dose: Durable Medical Equipment (Knee Support) Hinged knee brace, left knee. Refills: 0. Next Dose: Fluoxetine (FLUoxetine 40 mg oral [...] Dose: Metoprolol (metoprolol 25 mg oral tablet) 0.5 tab(s) Oral twice a day. Refills: 3. Next Dose: Miscellaneous Rx (PRISON VISIT FREQUENCY) PLEASE INCREASE PRISON VISITS TO TWICE A DAY FOR MEDICATION MANAGEMENT AND ADMINISTRATION.. Refills: 0. Next Dose: Quetiapine (QUEtiapine 400 mg oral tablet, extended release) 1 tab(s) Oral Daily in PM. Refills: 1. Next Dose: Trazodone (traZODone 100 mg oral tablet) 2 tab(s) Oral Daily at Bedtime. Refills: 3. Next Dose: Allergy Info:?? Nicotine Patch; Abilify; Nuts; Vistaril; Benadryl; Clozaril; Claritin Medications Given This Visit Future Orders ?No future orders Vital Signs Height Weight BMI Blood Pressure / Temperature Pulse Rate Respiratory Rate 02 Sat Mode of Delivery / You can now view a summary of your hospital visit from the comfort of your home through a free online portal called [employer]. [employer] is a website that allows you to securely view your medical information including discharge summary, medications and follow-up visits. ??You can alsosend a secure electronic message to your doctor???s office to request appointments, renew medications or just ask a question. You can enroll at [email or web address] or register during your next office [...] primary care provider, you may find a [facility] provider by calling [facility] [employer] Link at [phone]. For information about the plan of care [...] Team Personnel Name: Wild Woods RN Position: [facility] ED RN W/OE and Tasks Member Role: Primary Care Nurse Name: Camila Vazquez RN Position: [facility] RN Member Role: Primary Care Nurse Name: Amanda Garibay RN Position: [facility] RN Member Role: Primary Care Nurse Name: Mary Roberson RN Position: [facility] RN Member Role: Primary Care Nurse Name: Tomas Stauffer RN Position: [facility] RN Member Role: Primary Care Nurse Name: Balaji Mayo MD Position: [facility] Primary Care Physician Member Role: PCP Address: Address: [address] [place] [address]- Name: Pattie Oates RN Position: [facility] RN Member Role: Primary Care Nurse Care Team Related Persons Name: ROSANA NAGY Address: [address] [address] Name: GORAN QUINTERO
--- OUTSIDE RECORDS SUMMARY | 2023-12-30 12:58 | XMS_ITS | Continuity of Care Document ---
Author Organization [facility] Rico Syed Aldair lt Address [address] [place] [address]- Care Team Providers Care Solar Energy Technician Name Role Phone Maria Esther URIAS, Balaji Quick Primary Care Physician [facility] Date[facility]): 06/20[facility]22 - 07/21/22 [facility] Rico Syed Adult [address] [place] [address]- Attending Physician: Not on Staff, Attending MD [...] pneumococcal 23-valent vaccine 12/17/12 Recorded 1Result Comment: [id number] 2Result Comment: [02/15/2018] 29043-446-94 3Result Comment: [08/02/2017] [facility] 11618-134-81 Medications aspirin 81 mg oral delayed release tablet = 81 mg, By Mouth, Daily, # 90 tablet, 3 Refills, Maintenance, 10/05/21 17:34:00 EDT, EC Tablet, [facility] #[id number], Partial fill upon patient request if the prescription is for a schedule II opioid drug., 182, cm, 09/10/21 8:13:00 EDT, Heigh... Start Date: 10/05/21 Status: Ordered atorvastatin 80 mg oral tablet 1 tablet = 80 mg, By Mouth, Daily, # 90 tablet, 3 Refills, Maintenance, 10/05/21 17:34:00 EDT, Tablet, [facility] #[id number], Partial fill upon patient request if the prescription is for a schedule II opioid drug., 182, cm, 09/10/21 8:13:00 EDT,... Start Date: 10/05/21 Status: Ordered BuPROPion (Eqv-Wellbutrin SR) 150 mg/12 hours oral tablet, extended release 1 tablet = 150 mg, By Mouth, 2 times a day, # 180 tablet, 3 Refills, Maintenance, 10/05/21 17:37:00EDT, SR Tablet, [facility] #[id number], Partial fill upon patient request if the prescription is for a schedule II opioid drug., 182, cm, 09/10/21... Start Date: 10/05/21 Status: Ordered clopidogrel 75 mg oral tablet 1, tablet, By Mouth, Daily, # 90 tablet, Refills 3, Tot. Refills 3, Maintenance, 10/05/21 17:34:00 EDT, Route to Pharmacy Electronically, [facility] #[id number], 182, cm, 09/10/21 8:13:00 EDT, Height, 102.7, kg, 09/08/21 16:41:00 EDT, Dry Weight Start Date: 10/05/21 Status: Ordered Flonase 50 mcg/inh nasal spray 1 sprays = 50 mcg, Nares, Both, 2 times a day, # 16 Gm, 5 Refills, Maintenance, 09/29/20 16:49:00 EDT, Nasal [place], [facility] #[id number], Partial fill upon patient request if the prescription is for a schedule II opioid drug., 1 sprays Nixon Rubin.. Start Date: 09/29/20 Status: Ordered Fluoxetine = 50 mg, By Mouth, Daily, 0 Refills, Maintenance, 06/29/22 15:47:00 EST, Partial fill upon patient request if the prescription is for a schedule II opioid drug. Start Date: 06/29/22 Status: Ordered FLUoxetine 40 mg oral capsule 1 capsule = 40 mg, By Mouth, Daily, # 90 capsule, 3 Refills, Maintenance, 10/05/21 17:34:00 EDT, Capsule, [facility] #[id number], Partial fill upon patient request if the prescription is for a schedule II opioid drug., 182, cm, 09/10/21 8:13:00 E... Start Date: 10/05/21 Status: Ordered isosorbide mononitrate 30 mg oral tablet, extended release 1 tablet = 30 mg, By Mouth, Daily in AM, # 90 tablet, 3 Refills, 10/05/21 17:35:00 EDT, [facility] #[id number], 182, cm, 09/10/21 8:13:00 EDT, Height, 102.7, kg, 09/08/21 16:41:00 EDT, Dry Weight Start Date: 10/05/21 Status: Ordered lamotrigine 25 mg oral tablet 100 mg, 4, tablet, By Mouth, 2 times a day, # 720 tablet, Refills 3, Tot. Refills 3, Maintenance, 10/06/21 14:57:00 EDT, Route to Pharmacy Electronically, [facility] #[id number], Partial fill upon patient request if the [...] 06/06/22 14:13:00 EST, Route to Pharmacy Electronically, [facility] #[id number],Partial fill upon patient request if the prescripti... Start Date: 06/06/22 Status: Ordered mupirocin 2% topical ointment 1 application, Topically, 3 times a day, for 5 days, apply a thin film to affected area, # 15 Gm, 0Refills, Acute 07/24/22 12:01:00 EDT, 07/19/22 12:01:00 EDT, Ointment, [facility] #[id number],Partial fill upon patient request if the prescripti... [...] 10/05/21 17:36:00 EDT, Route to Pharmacy Electronically, [facility] #[id number], Partial fillupon patient request if the prescription [...] Team Personnel Name: Wild Woods RN Position: [facility] ED RN W/OE and Tasks Member Role: Primary Care Nurse Name: Camila Vazquez RN Position: [facility] RN Member Role: Primary Care Nurse Name: Amanda Garibay RN Position: S RN Member Role: Primary Care Nurse Name: Mary Roberson RN Position: [facility] RN Member Role: Primary Care Nurse Name: Tomas Stauffer RN Position: [facility] RN Member Role: Primary Care Nurse Name: Balaji Mayo MD Position: [facility] Primary Care Physician Member Role: PCP Address: Address: [address] [place] [address]- [place] Care Team Related Persons Name: ROSANA NAGY Address: home [address] [place] [address] Name: GORAN QUINTERO
--- OUTSIDE RECORDS SUMMARY | 2023-12-30 12:58 | XMS_ITS | Continuity of Care Document ---
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 Makeup Artist Name Role Phone Maria Esther URIAS, Balaji Quick Primary Care Physician [facility]counter [facility] Date(s): 01/27/21 - 02/26/[address], [address] [place], [place] [address] Allergies, Adverse Reactions, Alerts Substance [...] 23-valent vaccine 12/17/12 Recorded 1Result Comment: [02/15/2018] 59189-313-86 2Result Comment: [08/02/2017] [facility] 78043-479-53 Medications amLODIPine 5 mg oral tablet 2.5 [...] Refills, Maintenance, 02/18/21 9:19:00 EDT, EC Tablet, [facility], Partial fill upon patient [...] 09/14/20 12:44:00 EDT, Route to Pharmacy Electronically, [facility] #[id number], 180, cm, 09/07/20 10:33:00 EDT, Height Start Date: 09/14/20 Status: Ordered Flonase 50 mcg/inh nasal spray 1 sprays = 50 mcg, Nares, Both, 2 times a day, # 16 Gm, 5 Refills, Maintenance, 09/29/20 16:49:00 EDT, Nasal [place], [facility] #[id number], Partial fill upon patient request if the [...] 09/13/20 6:59:00 EDT, Route to Pharmacy Electronically, [facility] #[id number], Partial fill upon patient request if the [...] Maintenance, 02/20/21 7:32:00 EDT, Patch, [facility], Partial fill upon patient request if the prescription is for a schedule II opioid drug., 1 patch T... Start Date: 02/20/21 Status: Ordered Metoprolol Tartrate 25 mg oral tablet 1 tablet, By Mouth, 2 times a day, # 180 tablet, 0 Refills, Maintenance, 09/14/20 12:44:00 EDT, [facility] #[id number], 180, cm, 09/07/20 10:33:00 EDT, Height Start [...] Maintenance, :58:00 EDT, Route to Pharmacy Electronically, [facility] #[id number], Partial fill upon patient request if the [...]
--- OUTSIDE RECORDS SUMMARY | 2023-12-30 12:58 | XMS_ITS | Continuity of Care Document ---
Author Organization [facility] Kunal Aldair lt Address [address] [place] [address]- Care Team Providers Care Wheat Combine Driver Name Role Phone Maria Esther URIAS, Balaji Quick Primary Care Physician [facility]counter [facility] Date(s): 02/15/23 - 03/17/23 [facility] Adult [address] [place] [address]- Allergies, Adverse Reactions, Alerts Substance Reaction Severity [...] 23-valent vaccine 12/17/12 Recorded 1Result Comment: [02/15/2018] 10960-858-62 2Result Comment: [id number] 3Result Comment: [08/02/2017] [facility] 31393-208-09 Medications Aspirin Low Dose 81 mg oral delayed release tablet 1 tablet, By Mouth, Daily, # 90 tablet, 3 Refills, Maintenance, 11/08/22 11:19:00 EDT, [facility] #[id number], 184, cm, 11/03/22 11:28:00 EDT, Height, 106.3, kg, 09/13/22 12:30:00 EDT, Dry Weight Start Date: 11/08/22 Status: Ordered atorvastatin 80 mg oral tablet 1 tablet = 80 mg, By Mouth, Daily, # 90 tablet, 3 Refills, Maintenance, 12/05/22 4:30:00 EDT, Tablet, [facility] #[id number], Partial fill upon patient request if the prescription is for a schedule II opioid drug., 183, cm, 11/10/22 17:28:00 EDT,... Start Date: 12/05/22 Status: Ordered BuPROPion (Eqv-Wellbutrin SR) 150 mg/12 hours oral tablet, extended release 1 tablet = 150 mg, By Mouth, 2 times a day, # 180 tablet, 3 Refills, Maintenance, 10/05/21 17:37:00EDT, SR Tablet, [facility] #[id number], Partial fill upon patient request if the prescription is for a schedule II opioid drug., 182, cm, 09/10/21... Start Date: 10/05/21 Status: Ordered clopidogrel 75 mg oral tablet 1, tablet, By Mouth, Daily, # 90 tablet, Refills 3, Maintenance, 01/13/23 16:50:00 EDT, Route to Pharmacy Electronically, [facility] #[id number], 183, cm, 12/05/22 16:08:00 EDT, Height, 106.3, kg, 09/13/22 12:30:00 EDT, Dry Weight Start Date: 01/13/23 Status: Ordered Flonase 50 mcg/inh nasal spray 1 sprays = 50 mcg, Nares, Both, 2 times a day, # 16 Gm, 5 Refills, Maintenance, 09/15/22 8:26:00 EDT, Nasal [place], [facility] #[id number], Partial fill upon patient request if the prescription is for a schedule II opioid drug., 1 sprays Nares, [place]... Start Date: 09/15/22 Status: Ordered FLUoxetine 40 mg oral capsule 1 capsule = 40 mg, By Mouth, Daily, # 90 capsule, 3 Refills, Maintenance, 10/05/21 17:34:00 EDT, Capsule, [facility] #[id number], Partial fill upon patient request if the [...] 11 Refills, Maintenance, 11/30/22 6:36:00 EDT, Tablet, [facility] #[id number], Partial fill upon patient requestif the prescription [...] capsule, 1 Refills, Maintenance, 09/28/22 9:21:00 EDT, [facility] #[id number], Partial fill upon patient request if the [...] 10/05/21 17:36:00 EDT, Route to Pharmacy Electronically, [facility] #[id number], Partial fillupon patient request if the prescription [...] Care Nurse Name: Amanda Garibay RN Position: [facility] RN Member Role: Primary Care Nurse Name: Mary Roberson RN Position: S RN Member Role: Primary Care Nurse Name: Tomas Stauffer RN Position: S RN Member Role: Primary Care Nurse Name: Maria Esther URIAS, Balaji Quick Position: [facility] Physician - Primary Care Member Role: PCP Address: Address: [address] [place] [address]- Name: Fadumo Conti RN Position: [facility] RN Member Role: Primary Care Nurse Care Team Related Persons Name: ROSANA NAGY Address: [address] [address] Name: GORAN QUINTERO
--- OUTSIDE RECORDS SUMMARY | 2023-12-30 12:58 | XMS_ITS | Continuity of Care Document ---
Author Organization [facility] Kunal Aldair lt Address [address] [place] [address]- Care Team Providers Care Jewelry Cutter Name Role Phone Maria Esther URIAS, Balaji Quick Primary Care Physician [facility]): [facility] - 02/26/22 [facility] Rico Syed Adult [address] [place] [address]- Attending Physician: AdmtrBertha Admitting Physician: AdmtrBertha Referring [...] pneumococcal 23-valent vaccine 12/17/12 Recorded 1Result Comment: [id number] 2Result Comment: [02/15/2018] 92687-973-71 3Result Comment: [08/02/2017] [facility] 69797-104-95 Medications aspirin 81 mg oral delayed release tablet = 81 mg, By Mouth, Daily, # 90 tablet, 3 Refills, Maintenance, 10/05/21 17:34:00 EDT, EC Tablet, [facility] #[id number], Partial fill upon patient request if the prescription is for a schedule II opioid drug., 182, cm, 09/10/21 8:13:00 EDT, Heigh... Start Date: 10/05/21 Status: Ordered atorvastatin 80 mg oral tablet 1 tablet = 80 mg, By Mouth, Daily, # 90 tablet, 3 Refills, Maintenance, 10/05/21 17:34:00 EDT, Tablet, [facility] #[id number], Partial fill upon patient request if the prescription is for a schedule II opioid drug., 182, cm, 09/10/21 8:13:00 EDT,... Start Date: 10/05/21 Status: Ordered BuPROPion (Eqv-Wellbutrin SR) 150 mg/12 hours oral tablet, extended release 1 tablet = 150 mg, By Mouth, 2 times a day, # 180 tablet, 3 Refills, Maintenance, 10/05/21 17:37:00EDT, SR Tablet, [facility] #[id number], Partial fill upon patient request if the prescription is for a schedule II opioid drug., 182, cm, 09/10/21... Start Date: 10/05/21 Status: Ordered clopidogrel 75 mg oral tablet 1, tablet, By Mouth, Daily, # 90 tablet, Refills 3, Tot. Refills 3, Maintenance, 10/05/21 17:34:00 EDT, Route to Pharmacy Electronically, [facility] #[id number], 182, cm, 09/10/21 8:13:00 EDT, Height, 102.7, [...] 5 Refills, Maintenance, 09/29/20 16:49:00 EDT, Nasal [place], [facility] #[id number], Partial fill upon patient request if the prescription is for a schedule II opioid drug., 1 sprays Nares, B... Start Date: 09/29/20 Status: Ordered FLUoxetine 40 mg oral capsule 1 capsule = 40 mg, By Mouth, Daily, # 90 capsule, 3 Refills, Maintenance, 10/05/21 17:34:00 EDT, Capsule, [facility] #[id number], Partial fill upon patient request if the [...] 90 tablet, 3 Refills, 10/05/21 17:35:00 EDT, [facility] #[id number], 182, cm, 09/10/21 8:13:00 EDT, Height, 102.7, [...] 10/06/21 14:57:00 EDT, Route to Pharmacy Electronically, [facility] #[id number], Partial fill upon patient request if the prescription is for a sche... Start Date: 10/06/21 Stop Date: 10/01/22 Status: Ordered lidocaine 5% topical film 1 patch, Topically, Daily, PRN Pain , Mild, remove after 12 hours, # 30 patch, 11 Refills, Maintenance, 02/20/21 7:32:00 EDT, Patch, [facility], Partial fill upon patient request if the prescription is for a schedule II opioid drug., 1 patch T... Start Date: 02/20/21 Status: Ordered metoprolol 25 mg oral tablet 12.5 mg, 0.5, tablet, By Mouth, 2 times a day, # 90 tablet, Refills 3, Tot. Refills 3, Maintenance,10/05/21 17:40:00 EDT, Route to Pharmacy Electronically, [facility] #[id number], Partial fill upon patient request if the prescription is for a sc... Start Date: 10/05/21 Status: Ordered QUEtiapine 400 mg oral tablet, extended release 400 mg, 1, tablet, By Mouth, Daily in PM, # 90 tablet, Refills 1, Tot. Refills 1, Maintenance, 10/05/21 17:36:00 EDT, Route to Pharmacy Electronically, [facility] #[id number], Partial fill upon patient request if the prescription is for a schedul... Start Date: 10/05/21 Status: Ordered FDC VISIT FREQUENCY FDC VISIT FREQUENCY, See Instructions, # 1 each, Refills 0, Tot. Refills 0, Maintenance, PLEASE INCREASE FDC VISITS TO TWICE A DAY FOR MEDICATION MANAGEMENT AND ADMINISTRATION., 10/06/21 15:08:00 EDT, Supply Start Date: 10/06/21 Status: Ordered traZODone 100 mg oral tablet 200 mg, 2, tablet, By Mouth, Daily at bedtime, # 180 tablet, Refills 3, Tot. Refills 3, Maintenance, 10/05/21 17:36:00 EDT, Route to Pharmacy Electronically, [facility] #[id number], Partial fillupon patient request if the prescription [...] Maria Esther URIAS, Balaji Quick Address: Address: [address] [place] [address]
--- OUTSIDE RECORDS SUMMARY | 2023-12-30 12:58 | XMS_ITS | Continuity of Care Document ---
Author Organization [facility] Kunal Aldair lt Address [address] [place] [address]- Care Team Providers Care Spooler Name Role Phone Maria Esther URIAS, Balaji Quick Primary Care Physician [phone] Encounter [facility] [place] Date(s): 03/29/23 - 04/28/23 [facility] Adult [address] [place] [address]- Allergies, Adverse Reactions, Alerts Substance Reaction Severity [...] 23-valent vaccine 12/17/12 Recorded 1Result Comment: [02/15/2018] 77598-364-31 2Result Comment: [id number] 3Result Comment: [08/02/2017] [facility] 27386-644-18 Medications Aspirin Low Dose 81 mg oral delayed release tablet 1 tablet, By Mouth, Daily, # 90 tablet, 3 Refills, Maintenance, 11/08/22 11:19:00 EDT, [facility] #[id number], 184, cm, 11/03/22 11:28:00 EDT, Height, 106.3, kg, 09/13/22 12:30:00 EDT, Dry Weight Start Date: 11/08/22 Status: Ordered atorvastatin 80 mg oral tablet 1 tablet = 80 mg, By Mouth, Daily, # 90 tablet, 3 Refills, Maintenance, 12/05/22 4:30:00 EDT, Tablet, [facility] #[id number], Partial fill upon patient request if the prescription is for a schedule II opioid drug., 183, cm, 11/10/22 17:28:00 EDT,... Start Date: 12/05/22 Status: Ordered BuPROPion (Eqv-Wellbutrin SR) 150 mg/12 hours oral tablet, extended release 1 tablet = 150 mg, By Mouth, 2 times a day, # 180 tablet, 3 Refills, Maintenance, 10/05/21 17:37:00EDT, SR Tablet, [facility] #[id number], Partial fill upon patient request if the prescription is for a schedule II opioid drug., 182, cm, 09/10/21... Start Date: 10/05/21 Status: Ordered clopidogrel 75 mg oral tablet 1, tablet, By Mouth, Daily, # 90 tablet, Refills 3, Maintenance, 01/13/23 16:50:00 EDT, Route to Pharmacy Electronically, [facility] #[id number], 183, cm, 12/05/22 16:08:00 EDT, Height, 106.3, kg, 09/13/22 12:30:00 EDT, Dry Weight Start Date: 01/13/23 Status: Ordered Flonase 50 mcg/inh nasal spray 1 sprays = 50 mcg, Nares, Both, 2 times a day, # 16 Gm, 5 Refills, Maintenance, 09/15/22 8:26:00 EDT, Nasal [place], [facility] #[id number], Partial fill upon patient request if the prescription is for a schedule II opioid drug., 1 sprays Nares, [place]... Start Date: 09/15/22 Status: Ordered FLUoxetine 40 mg oral capsule 1 capsule = 40 mg, By Mouth, Daily, # 90 capsule, 3 Refills, Maintenance, 10/05/21 17:34:00 EDT, Capsule, [facility] #[id number], Partial fill upon patient request if the [...] 11 Refills, Maintenance, 11/30/22 6:36:00 EDT, Tablet, [facility] #[id number], Partial fill upon patient requestif the prescription [...] capsule, 1 Refills, Maintenance, 09/28/22 9:21:00 EDT, [facility] #[id number], Partial fill upon patient request if the [...] 10/05/21 17:36:00 EDT, Route to Pharmacy Electronically, [facility] #[id number], Partial fillupon patient request if the prescription [...] Team Personnel Name: Wild Woods RN Position: [facility] ED RN W/OE and Tasks Member Role: Primary Care Nurse Name: Esme Garcia RN Position: [facility] RN Member Role: Primary Care Nurse Name: Erich Dias RN Position: [facility] RN Member Role: Primary Care Nurse Name: Camila Vazquez RN Position: [facility] RN Member Role: Primary Care Nurse Name: Taylor Beck RN Position: [facility] RN Member Role: Primary Care Nurse Name: Amanda Garibay RN Position: [facility] RN Member Role: Primary Care Nurse Name: Mary Roberson RN Position: [facility] RN Member Role: Primary Care Nurse Name: Tomas Stauffer RN Position: [facility] RN Member Role: Primary Care Nurse Name: Balaji Mayo MD Position: [facility] Physician - Primary Care Member Role: PCP Address: Address: [address] [place] [address] [place] [address]- [place] Care Team Related Persons Name: YAKOV ROSANA Address: home [address] [place] [address] Name: GORAN QUINTERO
--- OUTSIDE RECORDS SUMMARY | 2023-12-30 12:58 | XMS_ITS | Continuity of Care Document ---
Author Organization [facility] Rico Syed Aldair lt Address [address] [place] [address]- Care Team Providers Care Real Estate Lawyer Name Role Phone Maria Esther URIAS, Balaji Quick Primary Care Physician [place] [facility] [place] - 11/30/23 [facility] Rico Syed Adult [address] [place] [address]- Allergies, Adverse Reactions, Alerts Substance Reaction Severity [...] 23-valent vaccine 12/17/12 Recorded 1Result Comment: [02/15/2018] 60850-030-18 2Result Comment: [id number] 3Result Comment: [08/02/2017] [facility] 67146-061-23 Medications acetaminophen 325 mg oral tablet 650 [...] 3 Refills, Maintenance, 08/18/23 16:03:00 EDT, Tablet, [facility] #[id number], Partial fill upon patient request if the prescription is for a schedule II opioid drug., 183, cm, 08/09/23 10:49:00 EDT... Start Date: 08/18/23 Status: Ordered BuPROPion (Eqv-Wellbutrin SR) 150 mg/12 hours oral tablet, extended release 1 tablet = 150 mg, By Mouth, 2 times a day, # 180 tablet, 3 Refills, Maintenance, 10/05/21 17:37:00EDT, SR Tablet, [facility] #[id number], Partial fill upon patient request if the [...] 3 Refills, Maintenance, 10/05/21 17:34:00 EDT, Capsule, [facility] #[id number], Partial fill upon patient request if the prescription is for a schedule II opioid drug., 182, cm, 09/10/21 8:13:00 E... Start Date: 10/05/21 Status: Ordered fluticasone 50 mcg/inh nasal spray 1 sprays = 50 mcg, Nares, Both, 2 times a day, PRN allergies, # 16 Gm, 11 Refills, Maintenance, 08/18/23 16:05:00 EDT, [place], [facility] #[id number], Partial fill upon patient request if the [...] 11 Refills, Maintenance, 08/18/23 16:04:00 EDT, Tablet, [facility] #[id number], Partial fill upon patient request if the prescription is for a schedule II opioid dr... Start Date: 08/18/23 Status: Ordered Norvasc 2.5 mg oral tablet 2.5 mg, 1, tablet, By Mouth, Daily, # 90 tablet, Refills 3, Tot. Refills 3, Maintenance, 08/18/23 16:02:00 EDT, Route to Pharmacy Electronically, [facility] #[id number], Partial fill upon patient request if the prescription is for a schedule II o... Start Date: 08/18/23 Status: Ordered omeprazole 20 mg oral enteric coated capsule 1 capsule = 20 mg, By Mouth, Daily, # 90 capsule, 3 Refills, Maintenance, 08/18/23 16:04:00 EDT, [facility] #[id number], Partial fill upon patient request if the prescription is for a schedule II opioid drug., 183, cm, 08/09/23 10:49:00 EDT, [place]... Start Date: 08/18/23 Status: Ordered QUEtiapine 400 [...] 08/18/23 16:01:00 EDT, Route to Pharmacy Electronically, [facility] #[id number] Tablet, Partial fill upon ani... Start Date: 08/18/23 Stop Date: 08/17/24 Status: Ordered traZODone 100 mg oral tablet 200 mg, 2, tablet, By Mouth, Daily at bedtime, # 180 tablet, Refills 3, Tot. Refills 3, Maintenance, 10/05/21 17:36:00 EDT, Route to Pharmacy Electronically, [facility] #[id number], Partial fillupon patient request if the prescription [...] Team Personnel Name: Wild Woods RN Position: [facility] ED RN W/OE and Tasks Member Role: Primary Care Nurse Name: Esme Garcia RN Position: [facility] RN Member Role: Primary Care Nurse Name: Erich Dias RN Position: [facility] RN Member Role: Primary Care Nurse Name: Camila Vazquez RN Position: [facility] RN Member Role: Primary Care Nurse Name: Taylor Beck RN Position: [facility] RN Member Role: Primary Care Nurse Name: Amanda Moraes RN Position: [facility] RN Member Role: Primary Care Nurse Name: Nicole Neville RN Position: [facility] RN Member Role: Primary Care Nurse Name: Mary Roberson RN Position: [facility] RN Member Role: Primary Care Nurse Name: Tomas Stauffer RN Position: [facility] RN Member Role: Primary Care Nurse Name: Balaji Mayo MD Position: [facility] Physician - Primary Care Member Role: PCP Address: Address: [address] [address]- Name: Ashley Khanna RN Position: [facility] RN Member Role: Primary Care Nurse Care Team Related Persons Name: ROSANA NAGY Address: home [address] [place] [address] Name: GORAN QUINTERO
--- OUTSIDE RECORDS SUMMARY | 2023-12-30 12:58 | XMS_ITS | Continuity of Care Document ---
Author Organization [facility] Kunal Aldair lt Address [address] [place] [address]- Care Team Providers Care Orthopedics Pediatric Physician Name Role Phone Maria Esther URIAS, Balaji Quick Primary Care Physician [phone] Encounter [facility] [place] Date(s): 09/16/22 - 10/16/22 [facility] Kunal Adult [address] [place] [address]- Allergies, Adverse Reactions, Alerts Substance Reaction Severity [...] pneumococcal 23-valent vaccine 12/17/12 Recorded 1Result Comment: [id number] 2Result Comment: [02/15/2018] 05514-694-75 3Result Comment: [08/02/2017] [facility] 08884-513-62 Medications amLODIPine 10 mg oral tablet 10 mg, 1, tablet, By Mouth, Daily, # 30 tablet, Refills 0, Tot. Refills 0, Maintenance, 09/15/22 8:28:00 EDT, Route to Pharmacy Electronically, [email or web address] #[id number], Partial fill upon patient request if the prescription is for a schedule II opi... Start Date: 09/15/22 Status: Ordered aspirin 81 mg oral delayed release tablet = 81 mg, By Mouth, Daily, # 90 tablet, 3 Refills, Maintenance, 10/05/21 17:34:00 EDT, EC Tablet, [email or web address] #[id number], Partial fill upon patient request if the prescription is for a schedule II opioid drug., 182, cm, 09/10/21 8:13:00 EDT, [place]... Start Date: 10/05/21 Status: Ordered atorvastatin 80 mg oral tablet 1 tablet = 80 mg, By Mouth, Daily, # 90 tablet, 3 Refills, Maintenance, 10/05/21 17:34:00 EDT, Tablet, [email or web address] #[id number], Partial fill upon patient request if the prescription is for a schedule II opioid drug., 182, cm, 09/10/21 8:13:00 EDT,... Start Date: 10/05/21 Status: Ordered BuPROPion (Eqv-Wellbutrin SR) 150 mg/12 hours oral tablet, extended release 1 tablet = 150 mg, By Mouth, 2 times a day, # 180 tablet, 3 Refills, Maintenance, 10/05/21 17:37:00EDT, SR Tablet, [facility] #[id number], Partial fill upon patient request if the prescription is for a schedule II opioid drug., 182, cm, 09/10/21... Start Date: 10/05/21 Status: Ordered clopidogrel 75 mg oral tablet 1, tablet, By Mouth, Daily, # 90 tablet, Refills 0, Maintenance, 10/07/22 6:36:00 EDT, Route to Pharmacy Electronically, [email or web address] #[id number], 184, cm, 09/28/22 9:02:00 EDT, Height, 106.3, kg,09/13/22 12:30:00 EDT, Dry Weight Start Date: 10/07/22 Status: Ordered Flonase 50 mcg/inh nasal spray 1 sprays = 50 mcg, Nares, Both, 2 times a day, # 16 Gm, 5 Refills, Maintenance, 09/15/22 8:26:00 EDT, Nasal [place], [facility] #[id number], Partial fill upon patient request if the [...] 3 Refills, Maintenance, 10/05/21 17:34:00 EDT, Capsule, [email or web address] #[id number], Partial fill upon patient request if the [...] Maintenance, 09/15/22 8:27:00 EDT, Route to Pharmacy Electronically,[email or web address] #[id number], Partial fill upon pa... Start Date: 09/15/22 [...] tablet, 5 Refills, Maintenance, 09/18/22 18:55:00 EDT, [facility] #[id number], 184, cm, 09/15/22 9:12:00 EDT, Height, 106.3, [...] capsule, 1 Refills, Maintenance, 09/28/22 9:21:00 EDT, [email or web address] #[id number], Partial fill upon patient request if the [...] 10/05/21 17:36:00 EDT, Route to Pharmacy Electronically, [email or web address] #[id number], Partial fillupon patient request if the prescription [...] day smo kayla entered on: 02/15/18 Sex Patient Care team information Care Team Personnel Name: Wild Woods RN Position: [facility] ED RN W/OE and Tasks Member Role: Primary Care Nurse Name: Camila Vazquez RN Position: [facility] RN Member Role: Primary Care Nurse Name: Taylor Beck RN Position: [facility] RN Member Role: Primary Care Nurse Name: Amanda Garibay RN Position: [facility] RN Member Role: Primary Care Nurse Name: Mary Roberson RN Position: [facility] RN Member Role: Primary Care Nurse Name: Tomas Stauffer RN Position: [facility] RN Member Role: Primary Care Nurse Name: Balaji Mayo MD Position: [facility] Physician - Primary Care Member Role: PCP Address: Address: [address] [place] [address]- Name: Fadumo Conti RN Position: [facility] RN Member Role: Primary Care Nurse Care Team Related Persons Name: ROSANA NAGY Address: [address] [address] Name: GORAN QUINTERO
--- OUTSIDE RECORDS SUMMARY | 2023-12-30 12:58 | XMS_ITS | Continuity of Care Document ---
Author Organization [facility] Kunal Aldair lt Address [address] [place] [address]- Care Team Providers Care Production Bow Maker Name Role Phone Maria Esther URIAS, Balaji Quick Primary Care Physician [phone] Encounter [facility] [place] Date(s): 04/10/20 - 05/10/20 [facility] Kunal Adult [address] [place] [address]- Allergies, Adverse Reactions, Alerts Substance Reaction Severity Status Claritin Active Clozaril Active Benadryl Active Vistaril Active Nuts Active Abilify Active Nicotine Patch Active Immunizations Given and Recorded Vaccine Date Status Refusal Reason influenza virus vaccine, inactivated 03/04/20 Give n influenza virus vaccine, inactivated 01/29/19 Give n influenza virus vaccine, inactivated 1 02/15/18 Gi juan tetanus/diphtheria/pertussis, acel(Tdap) 2 08/02/17 Given 1Result Comment: [02/15/2018] 42265-412-57 2Result Comment: [08/02/2017] [facility] 64938-522-90 Medications amLODIPine 5 mg oral tablet 5 mg, 1, tablet, By Mouth, Daily, REFAX TO [facility] PER DR COTTRELL, # 90 tablet, Refills 3, Tot.Refills 3, Maintenance, 01/16/20 15:03:00 EDT, Route to Pharmacy Electronically, [facility] #[id number], 180, cm, 12/03/19 13:50:00 EDT, Height Start Date: 01/16/20 Status: Ordered Aspirin Tablet 81 mg, By Mouth, Daily, Maintenance, 04/15/13 17:02:08 Start Date: 04/15/13 Status: Ordered atorvastatin 80 mg oral tablet 1 tablet = 80 mg, By Mouth, Daily in AM, REFAX TO [facility] PER DR COTTRELL, # 90 tablet, 1 Refills, Maintenance, 01/16/20 15:04:00 EDT, Tablet, [facility] #[id number], 180, cm, 12/03/19 13:50:00 EDT, Height, Dry [...] 01/16/20 15:09:00 EDT, Route to Pharmacy Electronically, [facility] #[id number], 180, cm, 12/03/19 13:50:00 EDT, Height Start Date: 01/16/20 Status: Ordered cyclobenzaprine 5 mg oral tablet 1 tablet = 5 mg, By Mouth, 2 times a day, PRN as needed for muscle spasm, REFAX TO [facility] PER [facility], # 60 tablet, 2 Refills, Maintenance, 01/16/20 15:05:00 EDT, Tablet, [facility]#[id number], 180, cm, 12/03/19 13:50:00 EDT, Height, Dry... [...] 01/16/20 15:06:00 EDT, Route to Pharmacy Electronically, [facility] #[id number], 180, cm, 0... Start Date: 01/16/20 Status: Ordered Flomax 0.4 mg oral capsule 0.4 mg, 1, capsule, By Mouth, Daily, REFAX TO [facility] PER DR COTTRELL, # 90 capsule, Refills 1, Tot. Refills 1, Maintenance, 01/16/20 15:08:00 EDT, Route to Pharmacy Electronically, [facility] #[id number], 180, cm, 12/03/19 13:50:00 EDT, Height Start Date: 01/16/20 Status: Ordered isosorbide mononitrate 30 mg oral tablet, extended release 1 tablet, By Mouth, Daily in AM, REFAX TO [facility] PER DR COTTRELL, # 90 tablet, 1 Refills, Maintenance, 01/16/20 15:07:00 EDT, [facility] #[id number], 180, cm, 12/03/19 13:50:00 EDT, Height Start Date: 01/16/20 Status: Ordered Lamictal 100 mg oral tablet 1 tablet = 100 mg, By Mouth, 2 times a day, 0 Refills, Maintenance, 12/16/14 12:57:08 Start Date: 12/16/14 Status: Ordered Lidoderm 5% film See Instructions, Apply to affected area Topically Daily remove patches after 12 hours [facility], # 30 patch, 5 Refills, Maintenance, 01/16/20 15:07:00 EDT, [facility] #[id number], Apply to affected area Topically Thomas... Start Date: 01/16/20 Status: Ordered metoprolol 25 mg oral tablet 25 mg, 1, tablet, By Mouth, 2 times a day, REFAX TO [facility] PER DR COTTRELL, # 180 tablet, Refills 1, Tot. Refills 1, Maintenance, 01/16/20 15:08:00 EDT, Route to Pharmacy Electronically, [facility] #[id number], 180, cm, 12/03/19 13:50:00 EDT,... Start Date: 01/16/20 Status: Ordered nitroglycerin 0.4 mg sublingual tablet 1 tablet = 0.4 mg, Sublingual, Every 5 minutes, PRN for chest pain, # 100 tablet, 0 Refills, Maintenance, 04/10/20 15:29:00 EST, Tablet, [facility] #[id number], Partial fill upon patient requestif the prescription is for a schedule II opioid lsia... Start Date: 04/10/20 Status: Ordered oxybutynin 5 mg/24 hours oral tablet, extended release 1 tablet = 5 mg, By Mouth, Daily at bedtime, # 30 tablet, 3 Refills, Maintenance, 02/13/20 23:02:00EDT, ER Tablet, [facility] #[id number], 180, cm, 12/03/19 13:50:00 EDT, Height Start [...]
--- OUTSIDE RECORDS SUMMARY | 2023-12-30 12:58 | XMS_ITS | Continuity of Care Document ---
Author Organization [facility] Address [address] [place] [address]- Care Team Providers Care Vocational Trainer Name Role Phone Maria Esther URIAS, Balaji Quick Primary Care Physician [place] [facility] [place] 11[place]16/22 [facility] [address] [place] [id number] Allergies, Adverse Reactions, Alerts Substance [...] pneumococcal 23-valent vaccine 12/17/12 Recorded 1Result Comment: [id number] 2Result Comment: [02/15/2018] 61018-777-12 3Result Comment: [08/02/2017] [facility] 53394-651-65 Medications amLODIPine 10 mg oral tablet 10 mg, 1, tablet, By Mouth, Daily, # 90 tablet, Refills 3, Tot. Refills 3, Maintenance, 10/26/22 13:35:00 EDT, Route to Pharmacy Electronically, [facility] #[id number], Partial fill upon patientrequest if the prescription is for a schedule II op... Start Date: 10/26/22 Status: Ordered Aspirin Low Dose 81 mg oral delayed release tablet 1 tablet, By Mouth, Daily, # 90 tablet, 3 Refills, Maintenance, 11/08/22 11:19:00 EDT, [facility] #[id number], 184, cm, 11/03/22 11:28:00 EDT, Height, 106.3, kg, 09/13/22 12:30:00 EDT, Dry Weight Start Date: 11/08/22 Status: Ordered atorvastatin 80 mg oral tablet 1 tablet = 80 mg, By Mouth, Daily, # 90 tablet, 3 Refills, Maintenance, 10/05/21 17:34:00 EDT, Tablet, [facility] #[id number], Partial fill upon patient request if the prescription is for a schedule II opioid drug., 182, cm, 09/10/21 8:13:00 EDT,... Start Date: 10/05/21 Status: Ordered BuPROPion (Eqv-Wellbutrin SR) 150 mg/12 hours oral tablet, extended release 1 tablet = 150 mg, By Mouth, 2 times a day, # 180 tablet, 3 Refills, Maintenance, 10/05/21 17:37:00EDT, SR Tablet, [facility] #[id number], Partial fill upon patient request if the prescription is for a schedule II opioid drug., 182, cm, 09/10/21... Start Date: 10/05/21 Status: Ordered clopidogrel 75 mg oral tablet 1, tablet, By Mouth, Daily, # 90 tablet, Refills 0, Maintenance, 10/07/22 6:36:00 EDT, Route to Pharmacy Electronically, [facility] #[id number], 184, cm, 09/28/22 9:02:00 EDT, Height, 106.3, kg,09/13/22 12:30:00 EDT, Dry Weight Start Date: 10/07/22 Status: Ordered Flonase 50 mcg/inh nasal spray 1 sprays = 50 mcg, Nares, Both, 2 times a day, # 16 Gm, 5 Refills, Maintenance, 09/15/22 8:26:00 EDT, Nasal [place], [facility] #[id number], Partial fill upon patient request if the [...] 3 Refills, Maintenance, 10/05/21 17:34:00 EDT, Capsule, [facility] #[id number], Partial fill upon patient request if the prescription is for a schedule II opioid drug., 182, cm, 09/10/21 8:13:00 E... Start Date: 10/05/21 Status: Ordered isosorbide mononitrate 30 mg oral tablet, extended release 1 tablet, By Mouth, Daily in AM, # 90 tablet, 3 Refills, Maintenance, 10/20/22 16:40:00 EDT, [facility] #[id number], 184, cm, 09/28/22 9:02:00 EDT, Height, 106.3, [...] tablet, 5 Refills, Maintenance, 09/18/22 18:55:00 EDT, [facility] #[id number], 184, cm, 09/15/22 9:12:00 EDT, Height, 106.3, [...] capsule, 1 Refills, Maintenance, 09/28/22 9:21:00 EDT, [facility] #[id number], Partial fill upon patient request if the [...] 10/05/21 17:36:00 EDT, Route to Pharmacy Electronically, [facility] #[id number], Partial fillupon patient request if the prescription [...] Name: Wild Woods RN Position: [facility] ED RN W/OE and Tasks Member Role: Primary Care Nurse Name: Erich Dias RN Position: [facility] RN Member Role: Primary Care Nurse Name: Camila Vazquez RN Position: [facility] RN Member Role: Primary Care Nurse Name: Taylor Beck RN Position: [facility] RN Member Role: Primary Care Nurse Name: Amanda Garibay RN Position: [facility] RN Member Role: Primary Care Nurse Name: Mary Roberson RN Position: [facility] RN Member Role: Primary Care Nurse Name: Tomas Stauffer RN Position: [facility] RN Member Role: Primary Care Nurse Name: Balaji Mayo MD Position: [facility] Physician - Primary Care Member Role: PCP Address: Address: [address] [place] [address]- Name: Fadumo Conti RN Position: [facility] RN Member Role: Primary Care Nurse Care Team Related Persons Name: YAKOV ROSANA Address: home [address] [place] [id number] Name: GORAN QUINTEOR
--- OUTSIDE RECORDS SUMMARY | 2023-12-30 12:58 | XMS_ITS | Continuity of Care Document ---
Author Organization [facility] Rico Syed Aldair lt Address [address] [place] [address]- Care Team Providers Care Cash Applications Analyst Name Role Phone Maria Esther URIAS, Balaji Quick Primary Care Physician [phone] Encounter [facility] Date(s): 05/23/22 - 06/22/22 [facility] Rico Syed Adult [address] [place] [address]- Allergies, Adverse Reactions, Alerts Substance Reaction Severity [...] pneumococcal 23-valent vaccine 12/17/12 Recorded 1Result Comment: [id number] 2Result Comment: [02/15/2018] 88676-116-60 3Result Comment: [08/02/2017] [facility] 20069-137-28 Medications aspirin 81 mg oral delayed release tablet = 81 mg, By Mouth, Daily, # 90 tablet, 3 Refills, Maintenance, 10/05/21 17:34:00 EDT, EC Tablet, [facility] #[id number], Partial fill upon patient request if the prescription is for a schedule II opioid drug., 182, cm, 09/10/21 8:13:00 EDT, Heigh... Start Date: 10/05/21 Status: Ordered atorvastatin 80 mg oral tablet 1 tablet = 80 mg, By Mouth, Daily, # 90 tablet, 3 Refills, Maintenance, 10/05/21 17:34:00 EDT, Tablet, [facility] #[id number], Partial fill upon patient request if the prescription is for a schedule II opioid drug., 182, cm, 09/10/21 8:13:00 EDT,... Start Date: 10/05/21 Status: Ordered BuPROPion (Eqv-Wellbutrin SR) 150 mg/12 hours oral tablet, extended release 1 tablet = 150 mg, By Mouth, 2 times a day, # 180 tablet, 3 Refills, Maintenance, 10/05/21 17:37:00EDT, SR Tablet, [facility] #[id number], Partial fill upon patient request if the prescription is for a schedule II opioid drug., 182, cm, 09/10/21... Start Date: 10/05/21 Status: Ordered clopidogrel 75 mg oral tablet 1, tablet, By Mouth, Daily, # 90 tablet, Refills 3, Tot. Refills 3, Maintenance, 10/05/21 17:34:00 EDT, Route to Pharmacy Electronically, [facility] #[id number], 182, cm, 09/10/21 8:13:00 EDT, Height, 102.7, kg, 09/08/21 16:41:00 EDT, Dry Weight Start Date: 10/05/21 Status: Ordered Flonase 50 mcg/inh nasal spray 1 sprays = 50 mcg, Nares, Both, 2 times a day, # 16 Gm, 5 Refills, Maintenance, 09/29/20 16:49:00 EDT, Nasal [place], [facility] #[id number], Partial fill upon patient request if the prescription is for a schedule II opioid drug., 1 sprays Nares, B... Start Date: 09/29/20 Status: Ordered FLUoxetine 40 mg oral capsule 1 capsule = 40 mg, By Mouth, Daily, # 90 capsule, 3 Refills, Maintenance, 10/05/21 17:34:00 EDT, Capsule, [facility] #[id number], Partial fill upon patient request if the prescription is for a schedule II opioid drug., 182, cm, 09/10/21 8:13:00 E... Start Date: 10/05/21 Status: Ordered isosorbide mononitrate 30 mg oral tablet, extended release 1 tablet = 30 mg, By Mouth, Daily in AM, # 90 tablet, 3 Refills, 10/05/21 17:35:00 EDT, [facility] #[id number], 182, cm, 09/10/21 8:13:00 EDT, Height, 102.7, kg, 09/08/21 16:41:00 EDT, Dry Weight Start Date: 10/05/21 Status: Ordered lamotrigine 25 mg oral tablet 100 mg, 4, tablet, By Mouth, 2 times a day, # 720 tablet, Refills 3, Tot. Refills 3, Maintenance, 10/06/21 14:57:00 EDT, Route to Pharmacy Electronically, [facility] #[id number], Partial fill upon patient request if the prescription is for a sche... Start Date: 10/06/21 Stop Date: 10/01/22 Status: Ordered lidocaine 5% topical film 1 patch, Topically, Daily, PRN Pain , Mild, remove after 12 hours, # 30 patch, 11 Refills, Maintenance, 02/20/21 7:32:00 EDT, Patch, [facility], Partial fill upon patient request if the prescription is for a schedule II opioid drug., 1 patch T... Start Date: 02/20/21 Status: Ordered metoprolol 25 mg oral tablet 25 mg, 1, tablet, By Mouth, 2 times a day, increase in dose, # 60 tablet, Refills 2, Tot. Refills 2, Maintenance, 06/06/22 14:13:00 EST, Route to Pharmacy Electronically, [facility] #[id number],Partial fill upon patient request if the prescripti... Start Date: 06/06/22 Status: Ordered traZODone 100 mg oral tablet 200 mg, 2, tablet, By Mouth, Daily at bedtime, # 180 tablet, Refills 3, Tot. Refills 3, Maintenance, 10/05/21 17:36:00 EDT, Route to Pharmacy Electronically, [facility][id number], Partial fillupon patient request if the prescription [...] Team Personnel Name: Wild Woods RN Position: [facility] ED RN W/OE and Tasks Member Role: Primary Care Nurse Name: Camila Vazquez RN Position: [facility] RN Member Role: Primary Care Nurse Name: Amanda Garibay RN Position: [facility] RN Member Role: Primary Care Nurse Name: Mary Roberson RN Position: [facility] RN Member Role: Primary Care Nurse Name: Tomas Stauffer RN Position: [facility] RN Member Role: Primary Care Nurse Name: Balaji Mayo MD Position: [facility] Primary Care Physician Member Role: PCP Address: Address: [address] [place] [address]- Care Team Related Persons Name: ROSANA NAGY Address: home [address] [place] [address] Name: GORAN QUINTERO
--- OUTSIDE RECORDS SUMMARY | 2023-12-30 12:58 | XMS_ITS | Continuity of Care Document ---
Author Organization [facility] Address [address] [place] [address]- Care Team Providers Care Operating Room Nurse Name Role Phone Maria Esther URIAS, Balaji Quick Primary Care Physician [place] [facility] Date(s): 11/15/22 - 12/15/22 [facility] [address] [place] [id number] Allergies, Adverse Reactions, Alerts Substance Reaction [...] pneumococcal 23-valent vaccine 12/17/12 Recorded 1Result Comment: [id number] 2Result Comment: [02/15/2018] [id number] 3Result Comment: [08/02/2017] [facility] 77732-043-76 Medications amLODIPine 10 mg oral tablet 10 mg, 1, tablet, By Mouth, Daily, # 90 tablet, Refills 3, Tot. Refills 3, Maintenance, 10/26/22 13:35:00 EDT, Route to Pharmacy Electronically, [facility] #[id number], Partial fill upon patientrequest if the prescription is for a schedule II op... Start Date: 10/26/22 Status: Ordered Aspirin Low Dose 81 mg oral delayed release tablet 1 tablet, By Mouth, Daily, # 90 tablet, 3 Refills, Maintenance, 11/08/22 11:19:00 EDT, [facility] #[id number], 184, cm, 11/03/22 11:28:00 EDT, Height, 106.3, kg, 09/13/22 12:30:00 EDT, Dry Weight Start Date: 11/08/22 Status: Ordered atorvastatin 80 mg oral tablet 1 tablet = 80 mg, By Mouth, Daily, # 90 tablet, 3 Refills, Maintenance, 12/05/22 4:30:00 EDT, Tablet, [facility] #[id number], Partial fill upon patient request if the prescription is for a schedule II opioid drug., 183, cm, 11/10/22 17:28:00 EDT,... Start Date: 12/05/22 Status: Ordered BuPROPion (Eqv-Wellbutrin SR) 150 mg/12 hours oral tablet, extended release 1 tablet = 150 mg, By Mouth, 2 times a day, # 180 tablet, 3 Refills, Maintenance, 10/05/21 17:37:00EDT, SR Tablet, [facility] #[id number], Partial fill upon patient request if the prescription is for a schedule II opioid drug., 182, cm, 09/10/21... Start Date: 10/05/21 Status: Ordered clopidogrel 75 mg oral tablet 1, tablet, By Mouth, Daily, # 90 tablet, Refills 0, Maintenance, 10/07/22 6:36:00 EDT, Route to Pharmacy Electronically, [facility] #[id number], 184, cm, 09/28/22 9:02:00 EDT, Height, 106.3, kg,09/13/22 12:30:00 EDT, Dry Weight Start Date: 10/07/22 Status: Ordered Flonase 50 mcg/inh nasal spray 1 sprays = 50 mcg, Nares, Both, 2 times a day, # 16 Gm, 5 Refills, Maintenance, 09/15/22 8:26:00 EDT, Nasal [place], [facility] #[id number], Partial fill upon patient request if the [...] 3 Refills, Maintenance, 10/05/21 17:34:00 EDT, Capsule, [facility] #[id number], Partial fill upon patient request if the prescription is for a schedule II opioid drug., 182, cm, 09/10/21 8:13:00 E... Start Date: 10/05/21 Status: Ordered isosorbide mononitrate 30 mg oral tablet, extended release 1 tablet, By Mouth, Daily in AM, # 90 tablet, 3 Refills, Maintenance, 10/20/22 16:40:00 EDT, [facility] #02411, 184, cm, 09/28/22 9:02:00 EDT, Height, 106.3, [...] tablet, 5 Refills, Maintenance, 09/18/22 18:55:00 EDT, [facility] #[id number], 184, cm, 09/15/22 9:12:00 EDT, Height, 106.3, kg, 09/13/22 12:30:00 EDT, Dry Weight Start Date: 09/18/22 Status: Ordered Nitrostat 0.4 mg sublingual tablet 1 tablet = 0.4 mg, Sublingual, Every 5 minutes, PRN Chest Pain, prn, # 30 tablet, 11 Refills, Maintenance, 11/30/22 6:36:00 EDT, Tablet, [facility] #[id number], Partial fill upon patient requestif the prescription is for a schedule II opioid lisa... Start Date: 11/30/22 Status: Ordered omeprazole 20 mg oral enteric coated capsule 1 capsule = 20 mg, By Mouth, Daily, # 30 capsule, 1 Refills, Maintenance, 09/28/22 9:21:00 EDT, [facility] #[id number], Partial fill upon patient request if the [...] 10/05/21 17:36:00 EDT, Route to Pharmacy Electronically, [facility] #[id number], Partial fillupon patient request if the prescription [...] Camila Vazquez RN Position: [facility] RN [...] Care Member Role: PCP Address: Address: [address] [place] [address]- Name: Fadumo Conti RN Position: [facility] RN Member Role: Primary Care Nurse Care Team Related Persons Name: ROSANA NAGY Address: home [address] [place] [id number] Name: GORAN QUINTERO
--- OUTSIDE RECORDS SUMMARY | 2023-12-30 12:58 | XMS_ITS | Continuity of Care Document ---
Author Organization [facility] Address [address] [place] [address]- Care Team Providers Care Truck Jumper Name Role Phone Balaji Mayo MD Primary Care Physician [place] [facility] [place](s): 05/16/23 - 07/06/23 [facility] [address] [place] [id number] Attending Physician: Rose HYATT, [place] [...] 23-valent vaccine 12/17/12 Recorded 1Result Comment: [02/15/2018] [id number] 2Result Comment: [id number] 3Result Comment: [08/02/2017] [facility] [id number] Medications Aspirin Low Dose 81 mg oral delayed release tablet 1 tablet, By Mouth, Daily, # 90 tablet, 3 Refills, Maintenance, 11/08/22 11:19:00 EDT, [facility] #[id number], 184, cm, 11/03/22 11:28:00 EDT, Height, 106.3, kg, 09/13/22 12:30:00 EDT, Dry Weight Start Date: 11/08/22 Status: Ordered atorvastatin 80 mg oral tablet 1 tablet = 80 mg, By Mouth, Daily, # 90 tablet, 3 Refills, Maintenance, 12/05/22 4:30:00 EDT, Tablet, [facility] #[id number], Partial fill upon patient request if the prescription is for a schedule II opioid drug., 183, cm, 11/10/22 17:28:00 EDT,... Start Date: 12/05/22 Status: Ordered BuPROPion (Eqv-Wellbutrin SR) 150 mg/12 hours oral tablet, extended release 1 tablet = 150 mg, By Mouth, 2 times a day, # 180 tablet, 3 Refills, Maintenance, 10/05/21 17:37:00EDT, SR Tablet, [facility] #[id number], Partial fill upon patient request if the prescription is for a schedule II opioid drug., 182, cm, 09/10/21... Start Date: 10/05/21 Status: Ordered clopidogrel 75 mg oral tablet 1, tablet, By Mouth, Daily, # 90 tablet, Refills 3, Maintenance, 01/13/23 16:50:00 EDT, Route to Pharmacy Electronically, [facility] #[id number], 183, cm, 12/05/22 16:08:00 EDT, Height, 106.3, kg, 09/13/22 12:30:00 EDT, Dry Weight Start Date: 01/13/23 Status: Ordered Flonase 50 mcg/inh nasal spray 1 sprays = 50 mcg, Nares, Both, 2 times a day, # 16 Gm, 5 Refills, Maintenance, 09/15/22 8:26:00 EDT, Nasal [place], [facility] #[id number], Partial fill upon patient request if the prescription is for a schedule II opioid drug., 1 sprays Nares, Tolu... Start Date: 09/15/22 Status: Ordered FLUoxetine 40 mg oral capsule 1 capsule = 40 mg, By Mouth, Daily, # 90 capsule, 3 Refills, Maintenance, 10/05/21 17:34:00 EDT, Capsule, [facility] #[id number], Partial fill upon patient request if the [...] 11 Refills, Maintenance, 11/30/22 6:36:00 EDT, Tablet, [facility] #[id number], Partial fill upon patient requestif the prescription [...] capsule, 1 Refills, Maintenance, 09/28/22 9:21:00 EDT, [facility] #[id number], Partial fill upon patient request if the [...] 10/05/21 17:36:00 EDT, [id number], Partial fillupon patient request if the prescription [...] Team Personnel Name: Wild Woods RN Position: [facility] ED RN W/OE and Tasks Member Role: Primary Care Nurse Name: Esme Garcia RN Position: [facility] RN Member Role: Primary Care Nurse Name: Erich Dias RN Position: [facility] RN Member Role: Primary Care Nurse Name: Camila Vazquez RN Position: [facility] RN Member Role: Primary Care Nurse Name: Taylor Beck RN Position: [facility] RN Member Role: Primary Care Nurse Name: Amanda Garibay RN Position: [facility] RN Member Role: Primary Care Nurse Name: Mary Roberson RN Position: [facility] RN Member Role: Primary Care Nurse Name: Tomas Stauffer RN Position: [facility] RN Member Role: Primary Care Nurse Name: Balaji Mayo MD Position: [facility] Physician - Primary Care Member Role: PCP Address: Address: [address] [place] [address]- [place] Care Team Related Persons Name: ROSANA NAGY Address: home [address] [place] [id number] Name: GORAN QUINTERO
--- OUTSIDE RECORDS SUMMARY | 2023-12-30 12:58 | XMS_ITS | Continuity of Care Document ---
Author Organization [facility] Address [address] [address]- Care Team Providers Care Sterilisation Technician Name Role Phone Balaji Mayo MD Primary Care Physician Encounter [facility] Date(s): 12/04/20 - 01/14/21 [facility] [address] [address]- Attending Physician: Balaji Mayo MD Admitting Physician: Balaji Mayo MD Referring Physician: Balaji Mayo MD Allergies, [...] acel(Tdap) 2 08/02/17 Given 1Result Comment: [02/15/2018] [id number] 2Result Comment: [08/02/2017] [facility] 55633-176-99 Medications amLODIPine 5 mg oral tablet 2.5 [...] 09/14/20 12:44:00 EDT, Route to Pharmacy Electronically, [facility] #[id number], 180, cm, 09/07/20 10:33:00 EDT, Height Start Date: 09/14/20 Status: Ordered Flonase 50 mcg/inh nasal spray 1 sprays = 50 mcg, Nares, Both, 2 times a day, # 16 Gm, 5 Refills, Maintenance, 09/29/20 16:49:00 EDT, Nasal [place], [facility] #[id number], Partial fill upon patient request if the [...] 09/13/20 6:59:00 EDT, Route to Pharmacy Electronically, [facility] #[id number], Partial fill upon patient request if the [...] tablet, 0 Refills, Maintenance, 09/14/20 12:44:00 EDT, [facility] #[id number], 180, cm, 09/07/20 10:33:00 EDT, Height Start [...] Maintenance, 05/25/217:58:00 EDT, Route to Pharmacy Electronically, [facility] #[id number], Partial fill upon patient request if the [...] Type Response Smoking Status Current some day [facility] kayla entered on: 02/15/18 Sex
--- OUTSIDE RECORDS SUMMARY | 2023-12-30 12:58 | XMS_ITS | Continuity of Care Document ---
Author Organization [facility] Kunal Aldair lt Address [address] [place] [address]- Care Team Providers Care River Guide Name Role Phone Maria Esther URIAS, Balaji Qucik Primary Care Physician [place] [facility] [place]22 [place] 11/25/22 [facility] Kunal Adult [address] [place] [address]- Allergies, Adverse Reactions, Alerts Substance Reaction Severity [...] pneumococcal 23-valent vaccine 12/17/12 Recorded 1Result Comment: [id number] 2Result Comment: [02/15/2018] [id number] 3Result Comment: [08/02/2017] [facility] 63318-585-77 Medications amLODIPine 10 mg oral tablet 10 mg, 1, tablet, By Mouth, Daily, # 90 tablet, Refills 3, Tot. Refills 3, Maintenance, 10/26/22 13:35:00 EDT, Route to Pharmacy Electronically, [facility] #[id number], Partial fill upon patientrequest if the prescription is for a schedule II op... Start Date: 10/26/22 Status: Ordered Aspirin Low Dose 81 mg oral delayed release tablet 1 tablet, By Mouth, Daily, # 90 tablet, 3 Refills, Maintenance, 11/08/22 11:19:00 EDT, [facility] #[id number], 184, cm, 11/03/22 11:28:00 EDT, Height, 106.3, kg, 09/13/22 12:30:00 EDT, Dry Weight Start Date: 11/08/22 Status: Ordered atorvastatin 80 mg oral tablet 1 tablet = 80 mg, By Mouth, Daily, # 90 tablet, 3 Refills, Maintenance, 10/05/21 17:34:00 EDT, Tablet, [facility] #[id number], Partial fill upon patient request if the prescription is for a schedule II opioid drug., 182, cm, 09/10/21 8:13:00 EDT,... Start Date: 10/05/21 Status: Ordered BuPROPion (Eqv-Wellbutrin SR) 150 mg/12 hours oral tablet, extended release 1 tablet = 150 mg, By Mouth, 2 times a day, # 180 tablet, 3 Refills, Maintenance, 10/05/21 17:37:00EDT, SR Tablet, [facility] #[id number], Partial fill upon patient request if the prescription is for a schedule II opioid drug., 182, cm, 09/10/21... Start Date: 10/05/21 Status: Ordered clopidogrel 75 mg oral tablet 1, tablet, By Mouth, Daily, # 90 tablet, Refills 0, Maintenance, 10/07/22 6:36:00 EDT, Route to Pharmacy Electronically, [facility] #[id number], 184, cm, 09/28/22 9:02:00 EDT, Height, 106.3, kg,09/13/22 12:30:00 EDT, Dry Weight Start Date: 10/07/22 Status: Ordered Flonase 50 mcg/inh nasal spray 1 sprays = 50 mcg, Nares, Both, 2 times a day, # 16 Gm, 5 Refills, Maintenance, 09/15/22 8:26:00 EDT, Nasal [place], [facility] #[id number], Partial fill upon patient request if the [...] 3 Refills, Maintenance, 10/05/21 17:34:00 EDT, Capsule, [facility] #[id number], Partial fill upon patient request if the prescription is for a schedule II opioid drug., 182, cm, 09/10/21 8:13:00 E... Start Date: 10/05/21 Status: Ordered isosorbide mononitrate 30 mg oral tablet, extended release 1 tablet, By Mouth, Daily in AM, # 90 tablet, 3 Refills, Maintenance, 10/20/22 16:40:00 EDT, [facility] #[id number], 184, cm, 09/28/22 9:02:00 EDT, Height, 106.3, [...] tablet, 5 Refills, Maintenance, 09/18/22 18:55:00 EDT, [facility] #[id number], 184, cm, 09/15/22 9:12:00 EDT, Height, 106.3, [...] capsule, 1 Refills, Maintenance, 09/28/22 9:21:00 EDT, [facility] #[id number], Partial fill upon patient request if the [...] 10/05/21 17:36:00 EDT, Route to Pharmacy Electronically, [facility] #[id number], Partial fillupon patient request if the prescription [...] Care Nurse Name: Erich Dias RN Position: [facility] RN Member Role: Primary Care Nurse Name: Camila Vazquez RN Position: [facility] RN Member Role: Primary Care Nurse Name: Taylor Beck RN Position: [facility] RN [...] Mayo MD Position: [facility] Physician - Primary Care Member Role: PCP Address: Address: [address] [place] [address]- Name: Fadumo Conti RN Position: [facility] RN Member Role: Primary Care Nurse Care Team Related Persons Name: ROSANA NAGY Address: [address] [address] Name: GORAN QUINTERO
--- OUTSIDE RECORDS SUMMARY | 2023-12-30 12:59 | XMS_ITS | Continuity of Care Document ---
Author Organization [facility] Kunal Aldair lt Address [address] [place] [address]- Care Team Providers Care Production Posting Clerk Name Role Phone Maria Esther URIAS, Balaji Quick Primary Care Physician [phone] Encounter [facility] Date(s): 03/29/23 - 04/28/23 [facility] Adult [address] [place] [address]- Allergies, Adverse Reactions, Alerts Substance Reaction Severity [...] 23-valent vaccine 12/17/12 Recorded 1Result Comment: [02/15/2018] 15557-858-35 2Result Comment: [id number] 3Result Comment: [08/02/2017] [facility] [id number] Medications Aspirin Low Dose 81 mg oral delayed release tablet 1 tablet, By Mouth, Daily, # 90 tablet, 3 Refills, Maintenance, 11/08/22 11:19:00 EDT, [facility] #[id number], 184, cm, 11/03/22 11:28:00 EDT, Height, 106.3, kg, 09/13/22 12:30:00 EDT, Dry Weight Start Date: 11/08/22 Status: Ordered atorvastatin 80 mg oral tablet 1 tablet = 80 mg, By Mouth, Daily, # 90 tablet, 3 Refills, Maintenance, 12/05/22 4:30:00 EDT, Tablet, [facility] #[id number], Partial fill upon patient request if the prescription is for a schedule II opioid drug., 183, cm, 11/10/22 17:28:00 EDT,... Start Date: 12/05/22 Status: Ordered BuPROPion (Eqv-Wellbutrin SR) 150 mg/12 hours oral tablet, extended release 1 tablet = 150 mg, By Mouth, 2 times a day, # 180 tablet, 3 Refills, Maintenance, 10/05/21 17:37:00EDT, SR Tablet, [facility] #[id number], Partial fill upon patient request if the prescription is for a schedule II opioid drug., 182, cm, 09/10/21... Start Date: 10/05/21 Status: Ordered clopidogrel 75 mg oral tablet 1, tablet, By Mouth, Daily, # 90 tablet, Refills 3, Maintenance, 01/13/23 16:50:00 EDT, Route to Pharmacy Electronically, [facility] #[id number], 183, cm, 12/05/22 16:08:00 EDT, Height, 106.3, kg, 09/13/22 12:30:00 EDT, Dry Weight Start Date: 01/13/23 Status: Ordered Flonase 50 mcg/inh nasal spray 1 sprays = 50 mcg, Nares, Both, 2 times a day, # 16 Gm, 5 Refills, Maintenance, 09/15/22 8:26:00 EDT, Nasal [place], [facility] #[id number], Partial fill upon patient request if the prescription is for a schedule II opioid drug., 1 sprays Nares, Tolu... Start Date: 09/15/22 Status: Ordered FLUoxetine 40 mg oral capsule 1 capsule = 40 mg, By Mouth, Daily, # 90 capsule, 3 Refills, Maintenance, 10/05/21 17:34:00 EDT, Capsule, [facility] #[id number], Partial fill upon patient request if the [...] 11 Refills, Maintenance, 11/30/22 6:36:00 EDT, Tablet, [facility] #[id number], Partial fill upon patient requestif the prescription [...] capsule, 1 Refills, Maintenance, 09/28/22 9:21:00 EDT, [facility] #[id number], Partial fill upon patient request if the [...] 10/05/21 17:36:00 EDT, Route to Pharmacy Electronically, [facility] #[id number], Partial fillupon patient request if the prescription [...] Primary Care Member Role: PCP Address: Address: [address] [place] [address] [place] [address]- [place] Care Team Related Persons Name: ROSANA NAGY Address: home [address] [place] [address] Name: GROAN QUINTERO
--- OUTSIDE RECORDS SUMMARY | 2023-12-30 12:59 | XMS_ITS | Continuity of Care Document ---
Author Organization [facility] Address [address] [place] [phone]- Care Team Providers Care Food Safety Technician Name Role Phone Maria Esther URIAS, Balaji Quick Primary Care Physician Encounter [facility] [place] Date(s): 08/10/21 - 08/17/21 [facility] [address] [place], [place] [address] Attending Physician: Rose HYATT, Key Han Admitting [...] 23-valent vaccine 12/17/12 Recorded 1Result Comment: [02/15/2018] [id number] 2Result Comment: [08/02/2017] [facility] [id number] Medications amLODIPine 2.5 mg oral tablet 2.5 mg, 1, tablet, By Mouth, Daily, # 90 tablet, Refills 1, Tot. Refills 1, Maintenance, 07/20/21 12:58:00 EDT, Route to Pharmacy Electronically, [facility], D/C RX ON FILE FOR 5MG TAB, 180, cm, 07/20/21 10:31:00 EDT, Height Start Date: 07/20/21 Status: Ordered aspirin 81 mg oral delayed release tablet = 81 mg, By Mouth, Daily, # 90 tablet, 3 Refills, Maintenance, 02/18/21 9:19:00 EDT, EC Tablet, [facility], Partial fill upon patient request if the prescription is for a schedule II opioid drug., 180, cm, 01/26/21 13:02:00 EDT, Height Start Date: 02/18/21 Status: Ordered atorvastatin 80 mg oral tablet 1 tablet = 80 mg, By Mouth, Daily, # 90 tablet, 3 Refills, Maintenance, 03/25/21 16:47:00 EST, Tablet, [facility][id number], Partial fill upon patient request if the [...] 03/25/21 16:47:00 EST, Route to Pharmacy Electronically, [facility] #[id number], 180, cm, 02/19/21 13:36:00 EDT, Height Start Date: 03/25/21 Status: Ordered Flonase 50 mcg/inh nasal spray 1 sprays = 50 mcg, Nares, Both, 2 times a day, # 16 Gm, 5 Refills, Maintenance, 09/29/20 16:49:00 EDT, Nasal [place], [facility] #[id number], Partial fill upon patient request if the prescription is for a schedule II opioid drug., 1 Sruthi Maxwell Start Date: 09/29/20 Status: Ordered FLUoxetine 40 [...] in AM, # 28 tablet, 2 Refills, [facility], 180, cm, 02/19/21 13:36:00 EDT, Height [...] 11 Refills, Maintenance, 02/20/21 7:32:00 EDT, Patch, [facility], Partial fill upon patient request if the prescription is for a schedule II opioid drug., 1 patch T... Start Date: 02/20/21 Status: Ordered Metoprolol Tartrate 25 mg oral tablet 1 tablet, By Mouth, 2 times a day, # 180 tablet, 3 Refills, Maintenance, 03/25/21 16:47:00 EST, [facility] #[id number], 180, cm, 02/19/21 13:36:00 EDT, Height Start [...]
--- OUTSIDE RECORDS SUMMARY | 2023-12-30 12:59 | XMS_ITS | Continuity of Care Document ---
Author Organization [facility] Address [address] [place] [address]- Care Team Providers Care Medical Biller/Coder Name Role Phone Maria Esther URIAS, Balaji Quick Primary Care Physician Encounter [facility] [place] Date(s): 08/18/20 - 10/01/20 [facility] [address] [place], [place] [address] Attending Physician: Hope Dover NP Admitting Physician: Hope Dover NP Referring Physician: Daniel Wright MD Allergies, Adverse Reactions, Alerts Substance Reaction [...] acel(Tdap) 2 08/02/17 Given 1Result Comment: [02/15/2018] [id number] 2Result Comment: [08/02/2017] [facility] [id number] Medications amLODIPine 5 mg oral tablet 2.5 [...] 09/14/20 12:44:00 EDT, Route to Pharmacy Electronically, [facility] #[id number], 180, cm, 09/07/20 10:33:00 EDT, Height Start Date: 09/14/20 Status: Ordered Flonase 50 mcg/inh nasal spray 1 sprays = 50 mcg, Nares, Both, 2 times a day, # 16 Gm, 5 Refills, Maintenance, 09/29/20 16:49:00 EDT, Nasal [place], [facility] #[id number], Partial fill upon patient request if the [...] 09/13/20 6:59:00 EDT, Route to Pharmacy Electronically, [facility] #[id number], Partial fill upon patient request if the [...] tablet, 0 Refills, Maintenance, 09/14/20 12:44:00 EDT, [facility] #[id number], 180, cm, 09/07/20 10:33:00 EDT, Height Start [...] Maintenance, :58:00 EDT, Route to Pharmacy Electronically, [facility] #[id number], Partial fill upon patient request if the [...]
--- OUTSIDE RECORDS SUMMARY | 2023-12-30 12:59 | XMS_ITS | Continuity of Care Document ---
Author Organization [facility] Kunal Aldair lt Address [address] [place] [address]- Care Team Providers Care Specification Writer Name Role Phone Maria Esther URIAS, Balaji Quick Primary Care Physician [phone] Encounter [facility] Date(s): 02/23/21 - 03/25/21 [facility] Adult [address] [place] [address]- Allergies, Adverse Reactions, Alerts Substance Reaction Severity [...] 23-valent vaccine 12/17/12 Recorded 1Result Comment: [02/15/2018] [id number] 2Result Comment: [08/02/2017] [facility] [id number] Medications amLODIPine 5 mg oral tablet 2.5 [...] Refills, Maintenance, 02/18/21 9:19:00 EDT, EC Tablet, [facility], Partial fill upon patient request if the prescription is for a schedule II opioid drug., 180, cm, 01/26/21 13:02:00 EDT, Height Start Date: 02/18/21 Status: Ordered atorvastatin 80 mg oral tablet 1 tablet = 80 mg, By Mouth, Daily, # 90 tablet, 3 Refills, Maintenance, 03/25/21 16:47:00 EST, Tablet, [facility] #[id number], Partial fill upon patient request if the [...] 03/25/21 16:47:00 EST, Route to Pharmacy Electronically, [facility] #[id number], 180, cm, 02/19/21 13:36:00 EDT, Height Start Date: 03/25/21 Status: Ordered Flonase 50 mcg/inh nasal spray 1 sprays = 50 mcg, Nares, Both, 2 times a day, # 16 Gm, 5 Refills, Maintenance, 09/29/20 16:49:00 EDT, Nasal [place], [facility] #[id number], Partial fill upon patient request if the [...] 09/13/20 6:59:00 EDT, Route to Pharmacy Electronically, [facility] #[id number], Partial fill upon patient request if the [...] 11 Refills, Maintenance, 02/20/21 7:32:00 EDT, Patch, [facility], Partial fill upon patient request if the prescription is for a schedule II opioid drug., 1 patch T... Start Date: 02/20/21 Status: Ordered Metoprolol Tartrate 25 mg oral tablet 1 tablet, By Mouth, 2 times a day, # 180 tablet, 3 Refills, Maintenance, 03/25/21 16:47:00 EST, [facility] #[id number], 180, cm, 02/19/21 13:36:00 EDT, Height Start [...] Maintenance, :58:00 EDT, [id number], Partial fill upon patient request if the [...]
--- OUTSIDE RECORDS SUMMARY | 2023-12-30 12:59 | XMS_ITS | Continuity of Care Document ---
Author Organization [facility] Kunal Aldair lt Address [address] [place] [address]- Care Team Providers Care Regulatory Affairs Internship Name Role Phone Maria Esther URIAS, Balaji Quick Primary Care Physician [phone] [place]counter [facility] Date(s): 05/19/20 - 06/18/20 [facility] Rico Chaoley Adult [address] [place] [address]- Allergies, Adverse Reactions, Alerts Substance Reaction Severity Status Claritin Active Clozaril Active Benadryl Active Vistaril Active Nuts Active Abilify Active Nicotine Patch Active Immunizations Given and Recorded Vaccine Date Status Refusal Reason influenza virus vaccine, inactivated 03/04/20 Give n influenza virus vaccine, inactivated 01/29/19 Give n influenza virus vaccine, inactivated 1 02/15/18 Gi juan tetanus/diphtheria/pertussis, acel(Tdap) 2 08/02/17 Given 1Result Comment: [02/15/2018] [id number] 2Result Comment: [08/02/2017] [facility] 00794-857-28 Medications amLODIPine 5 mg oral tablet 5 mg, 1, tablet, By Mouth, Daily, REFAX TO [facility] PER DR COTTRELL, # 90 tablet, Refills 3, Tot.Refills 3, Maintenance, 01/16/20 15:03:00 EDT, Route to Pharmacy Electronically, [facility] #[id number], 180, cm, 12/03/19 13:50:00 EDT, Height Start Date: 01/16/20 Status: Ordered Aspirin Tablet 81 mg, By Mouth, Daily, Maintenance, 04/15/13 17:02:08 Start Date: 04/15/13 Status: Ordered atorvastatin 80 mg oral tablet 1 tablet = 80 mg, By Mouth, Daily in AM, REFAX TO [facility] PER DR COTTRELL, # 90 tablet, 1 Refills, Maintenance, 01/16/20 15:04:00 EDT, Tablet, [facility] #[id number], 180, cm, 12/03/19 13:50:00 EDT, Height, Dry [...] 01/16/20 15:09:00 EDT, Route to Pharmacy Electronically, [facility] #[id number], 180, cm, 12/03/19 13:50:00 EDT, Height Start Date: 01/16/20 Status: Ordered cyclobenzaprine 5 mg oral tablet 1 tablet, By Mouth, 2 times a day, PRN NEEDED FOR MUSCLE SPASM, # 60 tablet, 0 Refills, Acute, 06/11/20 15:48:00 EST, [facility] #[id number], 180, cm, 03/04/20 8:59:00 EST, Height Start Date: 06/11/20 Status: Ordered Ditropan XL 5 mg/24 hours oral tablet, extended release 1 tablet = 5 mg, By Mouth, Daily, # 30 tablet, 0 Refills, Maintenance, 12/16/14 12:57:43 EDT Start Date: 12/16/14 Status: Ordered famotidine 20 mg oral tablet 20 mg, 1, tablet, By Mouth, 2 times a day, replaces ranitidine REFAX TO [facility] PER DR COTTRELL,# 180 tablet, Refills 1, Tot. Refills 1, Maintenance, 01/16/20 15:06:00 EDT, Route to Pharmacy Electronically, [facility] #[id number], 180, cm, 0... Start Date: 01/16/20 Status: Ordered Flomax 0.4 mg oral capsule 0.4 mg, 1, capsule, By Mouth, Daily, REFAX TO [facility] PER DR COTTRELL, # 90 capsule, Refills 1, Tot. Refills 1, Maintenance, 01/16/20 15:08:00 EDT, Route to Pharmacy Electronically, [facility] #[id number], 180, cm, 12/03/19 13:50:00 EDT, Height Start Date: 01/16/20 Status: Ordered isosorbide mononitrate 30 mg oral tablet, extended release 1 tablet, By Mouth, Daily in AM, REFAX TO [facility] PER DR COTTRELL, # 90 tablet, 1 Refills, Maintenance, 01/16/20 15:07:00 EDT, [facility] #[id number], 180, cm, 12/03/19 13:50:00 EDT, Height Start Date: 01/16/20 Status: Ordered Lamictal 100 mg oral tablet 1 tablet = 100 mg, By Mouth, 2 times a day, 0 Refills, Maintenance, 12/16/14 12:57:08 Start Date: 12/16/14 Status: Ordered Lidoderm 5% film See Instructions, Apply to affected area Topically Daily remove patches after 12 hours REFAX TO [facility] PER DR COTTRELL, # 30 patch, 5 Refills, Maintenance, 01/16/20 15:07:00 EDT, [facility] #[id number], Apply to affected area Topically Thomas... Start Date: 01/16/20 Status: Ordered metoprolol 25 mg oral tablet 25 mg, 1, tablet, By Mouth, 2 times a day, REFAX TO [facility] PER DR COTTRELL, # 180 tablet, Refills 1, Tot. Refills 1, Maintenance, 01/16/20 15:08:00 EDT, Route to Pharmacy Electronically, [facility] #[id number], 180, cm, 12/03/19 13:50:00 EDT,... Start Date: 01/16/20 Status: Ordered nitroglycerin 0.4 mg sublingual tablet 1 tablet = 0.4 mg, Sublingual, Every 5 minutes, PRN for chest pain, # 100 tablet, 0 Refills, Maintenance, 04/10/20 15:29:00 EST, Tablet, [facility] #[id number], Partial fill upon patient requestif the prescription is for a schedule II opioid lisa... Start Date: 04/10/20 Status: Ordered oxybutynin 5 mg/24 hours oral tablet, extended release 1 tablet = 5 mg, By Mouth, Daily at bedtime, # 30 tablet, 3 Refills, Maintenance, 02/13/20 23:02:00EDT, ER Tablet, [facility] #[id number], 180, cm, 12/03/19 13:50:00 EDT, Height Start [...]
--- OUTSIDE RECORDS SUMMARY | 2023-12-30 12:59 | XMS_ITS | Continuity of Care Document ---
Author Organization [facility] Address [address] [place] [address]- Care Team Providers Care Marketing Planner Name Role Phone Maria Esther URIAS, Balaji Quick Primary Care Physician Encounter [facility] Date(s): 12/04/20 - 12/07/[address] [address]- Encounter Diagnosis Fall(Final) - 12/04/20 Discharge Disposition: Transferred to an intermediate care faci Attending Physician: Mckay Caicedo MD Admitting Physician: Mckay Caicedo MD Referring Physician: Not on Staff, Referring [...] acel(Tdap) 2 08/02/17 Given 1Result Comment: [02/15/2018] [id number] 2Result Comment: [08/02/2017] [facility] 12498-600-01 Medications amLODIPine 5 mg oral tablet 2.5 [...] 09/14/20 12:44:00 EDT, Route to Pharmacy Electronically, [facility] #[id number], 180, cm, 09/07/20 10:33:00 EDT, Height Start Date: 09/14/20 Status: Ordered Flonase 50 mcg/inh nasal spray 1 sprays = 50 mcg, Nares, Both, 2 times a day, # 16 Gm, 5 Refills, Maintenance, 09/29/20 16:49:00 EDT, Nasal [place], [facility] #[id number], Partial fill upon patient request if the [...] 09/13/20 6:59:00 EDT, Route to Pharmacy Electronically, [facility] #[id number], Partial fill upon patient request if the [...] tablet, 0 Refills, Maintenance, 09/14/20 12:44:00 EDT, [facility] #[id number], 180, cm, 09/07/20 10:33:00 EDT, Height Start [...] Maintenance, 217:58:00 EDT, Route to Pharmacy Electronically, [facility] #[id number], Partial fill upon patient request if the [...] duplex 3repeat screening colonoscopy in 2021 Results Radiology Reports * Exam Date Time Procedure Performing Provider Status 12/04/20 5:20 PM Tibia/Fibula 2 Views Left Luba Michele ra; Auth (Verified) Notes: (Tibia/Fibula 2 Views Left) Reason For Exam: with Pain;Trauma RESULT: Tibia/Fibula 2 Views Left Tibia/Fibula 2 Views Left Hx of Present Illness: pt [place] had mechanical trip and fall but states not sure if he passed out .; Reason: Trauma; with Pain; Clinical Question(s): Fracture COMPARISON: None. FINDINGS: No fractures or bone lesions. Visualized joints are normal. Normal soft tissues. No definite evidence of a focal laceration or subcutaneous emphysema. IMPRESSION: Normal. WSN: [id number] Ordering Physician: Kirill Billy Dictated By: Evens Lawrence MD Dictated Date/Time: 12/04/20 5:58 pm Reviewed By: Evens Lawrence MD Signed By: Evens Lawrence MD Signed Date/Time: 12/04/20 5:58 pm Transcribed By: JOSEPH Transcribed Date/Time: 12/04/20 5:45 pm * Exam Date Time Procedure Performing Provider Status 12/04/20 5:20 PM Knee 1 or 2 Views Left Yazmin Michele; Modified Notes: (Knee 1 or 2 Views Left) Reason For Exam: with Pain;Trauma RESULT: Knee 1 or 2 Views Left Knee 1 or 2 Views Left, views Hx of Present Illness: pt reports [place] had mechanical trip and fall but states not sure if he passed out .; Reason: Trauma; with Pain; Clinical Question(s): Fracture; Special Instructions: [place] ([place] View) COMPARISON: None. FINDINGS: There is no evidence of acute or healing fracture, dislocation or bone lesion. No arthritic changes. No osteochondral defects or intra-articular loose bodies. No evidence of joint effusion. IMPRESSION: No fracture. WSN: [id number] Ordering Physician: Kirill Billy Dictated By: Evens Lawrence MD Dictated Date/Time: 12/04/20 5:39 pm Reviewed By: Evens Lawrence MD Signed By: Evens Lawrence MD Signed Date/Time: 12/04/20 5:39 pm Transcribed By: JOSEPH Transcribed Date/Time: 12/04/20 5:39 pm Vital Signs Most recent to oldest [Reference Range]: 1 2 3 Oxygen Saturation [94-100 %] 98 % (12/07/20 12:14 AM) 99 % (12/06/20 11:03 PM) 95 % (12/06/20 9:34 PM) Pulse Rate [55-90 bpm] 57 bpm (12/07/20 12:14 AM) 17 bpm *L* (12/06/20 11:03 PM) 58 bpm (12/06/20 9:34 PM) Blood Pressure [90-138/55-84 mm Hg] 126/90mm Hg (12/07/20 12:14 AM) 106/73mm Hg (12/06/20 11:03 PM) 155/65mm Hg *H* (12/06/20 9:34 PM) Respiratory Rate [16-30 br/min] 17 br/min (12/07/20 12:14 AM) 55 br/min *H* (12/06/20 11:03 PM) 17 br/min (12/06/20 9:34 PM) Temperature [96.8-100.4 DegF] 97.8 DegF (12/07/20 12:14 AM) 98.0 DegF (12/06/20 11:03 PM) 97.8 DegF (12/06/20 9:34 PM) Mode of Delivery (Oxygen) Room air (12/07/20 12:14 AM) Room air (12/06/20 11:03 PM) Room air (12/06/20 9:34 PM) Blood pressure sites Arm, left (12/07/20 12:14 AM) Arm, left (12/06/20 11:03 PM) Arm, left (12/06/20 9:34 PM) Temperature Route Oral (12/07/20 12:14 AM) Oral (12/06/20 11:03 PM) Oral (12/06/20 9:34 PM) Social History Social History Type Response Smoking Status Current some day smo ker entered on: 02/15/18 Sex
--- OUTSIDE RECORDS SUMMARY | 2023-12-30 12:59 | XMS_ITS | Continuity of Care Document ---
Author Organization [facility] Rico Syed Aldair lt Address [address] [place] [address]- Care Team Providers Care Local Company Tanker Driver Name Role Phone Maria Esther URIAS, Balaji Quick Primary Care Physician [phone] Encounter [facility] Date(s): 05/20/22 - 06/19/22 [facility] Rico Syed Adult [address] [place] [address]- Allergies, Adverse Reactions, Alerts Substance Reaction Severity [...] pneumococcal 23-valent vaccine 12/17/12 Recorded 1Result Comment: [id number] 2Result Comment: [02/15/2018] [id number] 3Result Comment: [08/02/2017] [facility] 16268-270-54 Medications aspirin 81 mg oral delayed release tablet = 81 mg, By Mouth, Daily, # 90 tablet, 3 Refills, Maintenance, 10/05/21 17:34:00 EDT, EC Tablet, [facility] #[id number], Partial fill upon patient request if the prescription is for a schedule II opioid drug., 182, cm, 09/10/21 8:13:00 EDT, Heigh... Start Date: 10/05/21 Status: Ordered atorvastatin 80 mg oral tablet 1 tablet = 80 mg, By Mouth, Daily, # 90 tablet, 3 Refills, Maintenance, 10/05/21 17:34:00 EDT, Tablet, [facility] #[id number], Partial fill upon patient request if the prescription is for a schedule II opioid drug., 182, cm, 09/10/21 8:13:00 EDT,... Start Date: 10/05/21 Status: Ordered BuPROPion (Eqv-Wellbutrin SR) 150 mg/12 hours oral tablet, extended release 1 tablet = 150 mg, By Mouth, 2 times a day, # 180 tablet, 3 Refills, Maintenance, 10/05/21 17:37:00EDT, SR Tablet, [facility] #[id number], Partial fill upon patient request if the prescription is for a schedule II opioid drug., 182, cm, 09/10/21... Start Date: 10/05/21 Status: Ordered clopidogrel 75 mg oral tablet 1, tablet, By Mouth, Daily, # 90 tablet, Refills 3, Tot. Refills 3, Maintenance, 10/05/21 17:34:00 EDT, Route to Pharmacy Electronically, [facility] #[id number], 182, cm, 09/10/21 8:13:00 EDT, Height, 102.7, kg, 09/08/21 16:41:00 EDT, Dry Weight Start Date: 10/05/21 Status: Ordered Flonase 50 mcg/inh nasal spray 1 sprays = 50 mcg, Nares, Both, 2 times a day, # 16 Gm, 5 Refills, Maintenance, 09/29/20 16:49:00 EDT, Nasal [place], [facility] #[id number], Partial fill upon patient request if the prescription is for a schedule II opioid drug., 1 sprays Nares, B... Start Date: 09/29/20 Status: Ordered FLUoxetine 40 mg oral capsule 1 capsule = 40 mg, By Mouth, Daily, # 90 capsule, 3 Refills, Maintenance, 10/05/21 17:34:00 EDT, Capsule, [facility] #54638, Partial fill upon patient request if the prescription is for a schedule II opioid drug., 182, cm, 09/10/21 8:13:00 E... Start Date: 10/05/21 Status: Ordered isosorbide mononitrate 30 mg oral tablet, extended release 1 tablet = 30 mg, By Mouth, Daily in AM, # 90 tablet, 3 Refills, 10/05/21 17:35:00 EDT, [facility] #[id number], 182, cm, 09/10/21 8:13:00 EDT, Height, 102.7, kg, 09/08/21 16:41:00 EDT, Dry Weight Start Date: 10/05/21 Status: Ordered lamotrigine 25 mg oral tablet 100 mg, 4, tablet, By Mouth, 2 times a day, # 720 tablet, Refills 3, Tot. Refills 3, Maintenance, 10/06/21 14:57:00 EDT, Route to Pharmacy Electronically, [facility] #[id number], Partial fill upon patient request if the prescription is for a sche... Start Date: 10/06/21 Stop Date: 10/01/22 Status: Ordered lidocaine 5% topical film 1 patch, Topically, Daily, PRN Pain , Mild, remove after 12 hours, # 30 patch, 11 Refills, Maintenance, 02/20/21 7:32:00 EDT, Patch, [facility], Partial fill upon patient request if the prescription is for a schedule II opioid drug., 1 patch T... Start Date: 02/20/21 Status: Ordered metoprolol 25 mg oral tablet 25 mg, 1, tablet, By Mouth, 2 times a day, increase in dose, # 60 tablet, Refills 2, Tot. Refills 2, Maintenance, 06/06/22 14:13:00 EST, Route to Pharmacy Electronically, [facility] #[id number],Partial fill upon patient request if the prescripti... Start Date: 06/06/22 Status: Ordered traZODone 100 mg oral tablet 200 mg, 2, tablet, By Mouth, Daily at bedtime, # 180 tablet, Refills 3, Tot. Refills 3, Maintenance, 10/05/21 17:36:00 EDT, Route to Pharmacy Electronically, [facility] #[id number], Partial fillupon patient request if the prescription [...] Team Personnel Name: [place] RN Position: [facility] ED RN W/OE and Tasks Member Role: Primary Care Nurse Name: Camila Vazquez RN Position: [facility] RN Member Role: Primary Care Nurse Name: Amanda Garibay RN Position: [facility] RN Member Role: Primary Care Nurse Name: Mary Roberson RN Position: [facility] RN Member Role: Primary Care Nurse Name: Tomas Stauffer RN Position: [facility] RN Member Role: Primary Care Nurse Name: Balaji Mayo MD Position: [facility] Primary Care Physician Member Role: PCP Address: Address: [address] [place] [address]- [place] Care Team Related Persons Name: ROSANA NAGY Address: home [address] [place] [id number] Name: GORAN QUINTERO
--- OUTSIDE RECORDS SUMMARY | 2023-12-30 12:59 | XMS_ITS | Continuity of Care Document ---
Author Organization [facility] Rico Syed Aldair lt Address [address] [place] [address]- Care Team Providers Care Jewel Inserter Name Role Phone Maria Esther URIAS, Balaji Quick Primary Care Physician [facility]): 08/[facility]/23 - 09/02/23 [facility] Rico Syed Adult [address] [place] [address]- Allergies, Adverse Reactions, Alerts Substance Reaction Severity [...] 23-valent vaccine 12/17/12 Recorded 1Result Comment: [02/15/2018] 22787-076-09 2Result Comment: [id number] 3Result Comment: [08/02/2017] [facility] 08200-225-11 Medications Aspirin Low Dose 81 mg oral delayed release tablet 1 tablet, By Mouth, Daily, # 90 tablet, 3 Refills, Maintenance, 11/08/22 11:19:00 EDT, [facility] #[id number], 184, cm, 11/03/22 11:28:00 EDT, Height, 106.3, kg, 09/13/22 12:30:00 EDT, Dry Weight Start Date: 11/08/22 Status: Ordered atorvastatin 80 mg oral tablet 1 tablet = 80 mg, By Mouth, Daily, # 90 tablet, 3 Refills, Maintenance, 08/18/23 16:03:00 EDT, Tablet, [facility] #[id number], Partial fill upon patient request if the prescription is for a schedule II opioid drug., 183, cm, 08/09/23 10:49:00 EDT... Start Date: 08/18/23 Status: Ordered BuPROPion (Eqv-Wellbutrin SR) 150 mg/12 hours oral tablet, extended release 1 tablet = 150 mg, By Mouth, 2 times a day, # 180 tablet, 3 Refills, Maintenance, 10/05/21 17:37:00EDT, SR Tablet, [facility] #[id number], Partial fill upon patient request if the prescription is for a schedule II opioid drug., 182, cm, 09/10/21... Start Date: 10/05/21 Status: Ordered clopidogrel 75 mg oral tablet 1, tablet, By Mouth, Daily, # 90 tablet, Refills 3, Tot. Refills 3, Maintenance, 08/18/23 16:03:00 EDT, Route to Pharmacy Electronically, [facility] #[id number], 183, cm, 08/09/23 10:49:00 EDT, Height, 107, kg, 01/26/23 19:57:00 EDT, Dry Weight Start Date: 08/18/23 Status: Ordered FLUoxetine 40 mg oral capsule 1 capsule = 40 mg, By Mouth, Daily, # 90 capsule, 3 Refills, Maintenance, 10/05/21 17:34:00 EDT, Capsule, [facility] #[id number], Partial fill upon patient request if the prescription is for a schedule II opioid drug., 182, cm, 09/10/21 8:13:00 E... Start Date: 10/05/21 Status: Ordered fluticasone 50 mcg/inh nasal spray 1 sprays = 50 mcg, Nares, Both, 2 times a day, PRN allergies, # 16 Gm, 11 Refills, Maintenance, 08/18/23 16:05:00 EDT, [place], [facility] #[id number], Partial fill upon patient request if the [...] 11 Refills, Maintenance, 08/18/23 16:04:00 EDT, Tablet, [facility] #[id number], Partial fill upon patient request if the prescription is for a schedule II opioid dr... Start Date: 08/18/23 Status: Ordered Norvasc 2.5 mg oral tablet 2.5 mg, 1, tablet, By Mouth, Daily, # 90 tablet, Refills 3, Tot. Refills 3, Maintenance, 08/18/23 16:02:00 EDT, Route to Pharmacy Electronically, [facility] #[id number], Partial fill upon patient request if the prescription is for a schedule II o... Start Date: 08/18/23 Status: Ordered omeprazole 20 mg oral enteric coated capsule 1 capsule = 20 mg, By Mouth, Daily, # 90 capsule, 3 Refills, Maintenance, 08/18/23 16:04:00 EDT, [facility] #[id number], Partial fill upon patient request if the [...] 08/18/23 16:01:00 EDT, Route to Pharmacy Electronically, [facility] #[id number] Tablet, Partial fill upon ani... Start Date: 08/18/23 Stop Date: 08/17/24 Status: Ordered traZODone 100 mg oral tablet 200 mg, 2, tablet, By Mouth, Daily at bedtime, # 180 tablet, Refills 3, Tot. Refills 3, Maintenance, 10/05/21 17:36:00 EDT, Route to Pharmacy Electronically, [facility] #[id number], Partial fillupon patient request if the prescription [...] Team Personnel Name: [place] RN Position: [facility] ED RN W/OE and Tasks Member Role: Primary Care Nurse Name: Esme Garcia RN Position: [facility] RN Member Role: Primary Care Nurse Name: Erich Dias RN Position: [facility] RN Member Role: Primary Care Nurse Name: Camila Vazquez RN Position: [facility] RN Member Role: Primary Care Nurse Name: Taylor Beck RN Position: [facility] RN Member Role: Primary Care Nurse Name: Amanda Moraes RN Position: [facility] RN Member Role: Primary Care Nurse Name: Mary Roberson RN Position: [facility] RN Member Role: Primary Care Nurse Name: Tomas Stauffer RN Position: [facility] RN Member Role: Primary Care Nurse Name: Balaji Mayo MD Position: [facility] Physician - Primary Care Member Role: PCP Address: Address: [address] [place] [address]- [place] Care Team Related Persons Name: ROSANA NAGY Address: home [address] [place] [address] Name: GORAN QUINTERO
--- OUTSIDE RECORDS SUMMARY | 2023-12-30 12:59 | XMS_ITS | Continuity of Care Document ---
Author Organization [facility] Kunal Aldair lt Address [address] [place] [address]- Care Team Providers Care Team Assembler Name Role Phone Maria Esther URIAS, Balaji Quick Primary Care Physician [phone] [facility] Date[facility]s): 02/26/21 - 03/28/21 [facility] Adult [address] [place] [address]- Allergies, Adverse Reactions, Alerts Substance Reaction Severity [...] 23-valent vaccine 12/17/12 Recorded 1Result Comment: [02/15/2018] 90930-582-36 2Result Comment: [08/02/2017] [facility] 40310-316-93 Medications amLODIPine 5 mg oral tablet 2.5 [...] Refills, Maintenance, 02/18/21 9:19:00 EDT, EC Tablet, [facility], Partial fill upon patient request if the prescription is for a schedule II opioid drug., 180, cm, 01/26/21 13:02:00 EDT, Height Start Date: 02/18/21 Status: Ordered atorvastatin 80 mg oral tablet 1 tablet = 80 mg, By Mouth, Daily, # 90 tablet, 3 Refills, Maintenance, 03/25/21 16:47:00 EST, Tablet, [facility] #[id number], Partial fill upon patient request if the [...] 03/25/21 16:47:00 EST, Route to Pharmacy Electronically, [facility] #[id number], 180, cm, 02/19/21 13:36:00 EDT, Height Start Date: 03/25/21 Status: Ordered Flonase 50 mcg/inh nasal spray 1 sprays = 50 mcg, Nares, Both, 2 times a day, # 16 Gm, 5 Refills, Maintenance, 09/29/20 16:49:00 EDT, Nasal [place], [facility] #[id number], Partial fill upon patient request if the [...] 09/13/20 6:59:00 EDT, Route to Pharmacy Electronically, [facility] #[id number], Partial fill upon patient request if the [...] 11 Refills, Maintenance, 02/20/21 7:32:00 EDT, Patch, [facility], Partial fill upon patient request if the prescription is for a schedule II opioid drug., 1 patch T... Start Date: 02/20/21 Status: Ordered Metoprolol Tartrate 25 mg oral tablet 1 tablet, By Mouth, 2 times a day, # 180 tablet, 3 Refills, Maintenance, 03/25/21 16:47:00 EST, [facility] #[id number], 180, cm, 02/19/21 13:36:00 EDT, Height Start [...] Maintenance, :58:00 EDT, [id number], Partial fill upon patient request if the [...]
--- OUTSIDE RECORDS SUMMARY | 2023-12-30 12:59 | XMS_ITS | Continuity of Care Document ---
Author Organization [facility] Kunal Aldair lt Address [address] [place] [address]- Care Team Providers Care Merchandise Flow Manager Name Role Phone Maria Esther URIAS, Balaji Quick Primary Care Physician [facility]): 05/29/23 - 06/28/23 [facility] Rico Chaoley Adult [address] [place] [address]- Allergies, Adverse Reactions, Alerts Substance Reaction Severity [...] 23-valent vaccine 12/17/12 Recorded 1Result Comment: [02/15/2018] 37600-350-32 2Result Comment: [id number] 3Result Comment: [08/02/2017] [facility] 24412-301-06 Medications Aspirin Low Dose 81 mg oral delayed release tablet 1 tablet, By Mouth, Daily, # 90 tablet, 3 Refills, Maintenance, 11/08/22 11:19:00 EDT, [facility] #[id number], 184, cm, 11/03/22 11:28:00 EDT, Height, 106.3, kg, 09/13/22 12:30:00 EDT, Dry Weight Start Date: 11/08/22 Status: Ordered atorvastatin 80 mg oral tablet 1 tablet = 80 mg, By Mouth, Daily, # 90 tablet, 3 Refills, Maintenance, 12/05/22 4:30:00 EDT, Tablet, [facility] #[id number], Partial fill upon patient request if the prescription is for a schedule II opioid drug., 183, cm, 11/10/22 17:28:00 EDT,... Start Date: 12/05/22 Status: Ordered BuPROPion (Eqv-Wellbutrin SR) 150 mg/12 hours oral tablet, extended release 1 tablet = 150 mg, By Mouth, 2 times a day, # 180 tablet, 3 Refills, Maintenance, 10/05/21 17:37:00EDT, SR Tablet, [facility] #[id number], Partial fill upon patient request if the prescription is for a schedule II opioid drug., 182, cm, 09/10/21... Start Date: 10/05/21 Status: Ordered clopidogrel 75 mg oral tablet 1, tablet, By Mouth, Daily, # 90 tablet, Refills 3, Maintenance, 01/13/23 16:50:00 EDT, Route to Pharmacy Electronically, [facility] #[id number], 183, cm, 12/05/22 16:08:00 EDT, Height, 106.3, kg, 09/13/22 12:30:00 EDT, Dry Weight Start Date: 01/13/23 Status: Ordered Flonase 50 mcg/inh nasal spray 1 sprays = 50 mcg, Nares, Both, 2 times a day, # 16 Gm, 5 Refills, Maintenance, 09/15/22 8:26:00 EDT, Nasal [place], [facility] #[id number], Partial fill upon patient request if the prescription is for a schedule II opioid drug., 1 sprays Nares, Tolu... Start Date: 09/15/22 Status: Ordered FLUoxetine 40 mg oral capsule 1 capsule = 40 mg, By Mouth, Daily, # 90 capsule, 3 Refills, Maintenance, 10/05/21 17:34:00 EDT, Capsule, [facility] #[id number], Partial fill upon patient request if the [...] 11 Refills, Maintenance, 11/30/22 6:36:00 EDT, Tablet, [facility] #[id number], Partial fill upon patient requestif the prescription [...] capsule, 1 Refills, Maintenance, 09/28/22 9:21:00 EDT, [facility] #[id number], Partial fill upon patient request if the [...] 10/05/21 17:36:00 EDT, Route to Pharmacy Electronically, [facility] #[id number], Partial fillupon patient request if the prescription [...] Care Nurse Name: Amanda Garibay RN Position: [facility] RN Member Role: Primary Care Nurse Name: Mary Roberson RN Position: [facility] RN Member Role: Primary Care Nurse Name: Tomas Stauffer RN Position: [facility] RN Member Role: Primary Care Nurse Name: Balaji Mayo MD Position: [facility] Physician - Primary Care Member Role: PCP Address: Address: [address] [place] [address] [place] [address]- Care Team Related Persons Name: YAKOV ROSANA Address: home [address] [place] [id number] Name: GORAN QUINTERO
--- OUTSIDE RECORDS SUMMARY | 2023-12-30 12:59 | XMS_ITS | Continuity of Care Document ---
Author Organization [facility] Kunal Aldair lt Address [address] [place] [address]- Care Team Providers Care Sales Representative Gas Service Name Role Phone Maria Esther URIAS, Balaji Quick Primary Care Physician Encounter [facility] Date(s): 11/03/21 - 12/03/21 [facility] Adult [address] [place] [address]- Allergies, Adverse Reactions, Alerts Substance Reaction Severity [...] 23-valent vaccine 12/17/12 Recorded 1Result Comment: [02/15/2018] 73171-662-55 2Result Comment: [08/02/2017] [facility] 12855-354-15 Medications aspirin 81 mg oral delayed release tablet = 81 mg, By Mouth, Daily, # 90 tablet, 3 Refills, Maintenance, 10/05/21 17:34:00 EDT, EC Tablet, [facility] #[id number], Partial fill upon patient request if the prescription is for a schedule II opioid drug., 182, cm, 09/10/21 8:13:00 EDT, [place]... Start Date: 10/05/21 Status: Ordered atorvastatin 80 mg oral tablet 1 tablet = 80 mg, By Mouth, Daily, # 90 tablet, 3 Refills, Maintenance, 10/05/21 17:34:00 EDT, Tablet, [facility] #[id number], Partial fill upon patient request if the prescription is for a schedule II opioid drug., 182, cm, 09/10/21 8:13:00 EDT,... Start Date: 10/05/21 Status: Ordered BuPROPion (Eqv-Wellbutrin SR) 150 mg/12 hours oral tablet, extended release 1 tablet = 150 mg, By Mouth, 2 times a day, # 180 tablet, 3 Refills, Maintenance, 10/05/21 17:37:00EDT, SR Tablet, [facility] #[id number], Partial fill upon patient request if the prescription is for a schedule II opioid drug., 182, cm, 09/10/21... Start Date: 10/05/21 Status: Ordered clopidogrel 75 mg oral tablet 1, tablet, By Mouth, Daily, # 90 tablet, Refills 3, Tot. Refills 3, Maintenance, 10/05/21 17:34:00 EDT, Route to Pharmacy Electronically, [facility] #[id number], 182, cm, 09/10/21 8:13:00 EDT, Height, 102.7, [...] 5 Refills, Maintenance, 09/29/20 16:49:00 EDT, Nasal [place], [facility] #[id number], Partial fill upon patient request if the prescription is for a schedule II opioid drug., 1 sprays Nixon Rubin.. Start Date: 09/29/20 Status: Ordered FLUoxetine 40 mg oral capsule 1 capsule = 40 mg, By Mouth, Daily, # 90 capsule, 3 Refills, Maintenance, 10/05/21 17:34:00 EDT, Capsule, [facility] #[id number], Partial fill upon patient request if the [...] 90 tablet, 3 Refills, 10/05/21 17:35:00 EDT, [facility] #[id number], 182, cm, 09/10/21 8:13:00 EDT, Height, 102.7, [...] 10/06/21 14:57:00 EDT, Route to Pharmacy Electronically, [facility] #[id number], Partial fill upon patient request if the prescription is for a sche... Start Date: 10/06/21 Stop Date: 10/01/22 Status: Ordered lidocaine 5% topical film 1 patch, Topically, Daily, PRN Pain , Mild, remove after 12 hours, # 30 patch, 11 Refills, Maintenance, 10/30/21 7:32:00 EDT, Patch, [facility], Partial fill upon patient request if the prescription is for a schedule II opioid drug., 1 patch T... Start Date: 02/20/21 Status: Ordered metoprolol 25 mg oral tablet 12.5 mg, 0.5, tablet, By Mouth, 2 times a day, # 90 tablet, Refills 3, Tot. Refills 3, Maintenance,10/05/21 17:40:00 EDT, Route to Pharmacy Electronically, [facility] #[id number], Partial fill upon patient request if the prescription is for a sc... Start Date: 10/05/21 Status: Ordered QUEtiapine 400 mg oral tablet, extended release 400 mg, 1, tablet, By Mouth, Daily in PM, # 90 tablet, Refills 1, Tot. Refills 1, Maintenance, 10/05/21 17:36:00 EDT, Route to Pharmacy Electronically, [facility] #[id number], Partial fill upon patient request if the prescription is for a schedul... Start Date: 10/05/21 Status: Ordered MCC VISIT FREQUENCY MCC VISIT FREQUENCY, See Instructions, # 1 each, Refills 0, Tot. Refills 0, Maintenance, PLEASE INCREASE MCC VISITS TO TWICE A DAY FOR MEDICATION MANAGEMENT AND ADMINISTRATION., 10/06/21 15:08:00 EDT, Supply Start Date: 10/06/21 Status: Ordered traZODone 100 mg oral tablet 200 mg, 2, tablet, By Mouth, Daily at bedtime, # 180 tablet, Refills 3, Tot. Refills 3, Maintenance, 10/05/21 17:36:00 EDT, Route to Pharmacy Electronically, [facility] #[id number], Partial fillupon patient request if the prescription [...]
--- OUTSIDE RECORDS SUMMARY | 2023-12-30 12:59 | XMS_ITS | Continuity of Care Document ---
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 Farm Worker Name Role Phone Maria Esther URIAS, Balaji Quick Primary Care Physician [facility] Date[facility]s): 02/28/23 - 03/30/23 [facility] Adult [address] [place] [address]- Allergies, Adverse Reactions, Alerts Substance Reaction Severity [...] 23-valent vaccine 12/17/12 Recorded 1Result Comment: [02/15/2018] 23347-475-46 2Result Comment: [id number] 3Result Comment: [08/02/2017] [facility] 38345-938-08 Medications Aspirin Low Dose 81 mg oral delayed release tablet 1 tablet, By Mouth, Daily, # 90 tablet, 3 Refills, Maintenance, 11/08/22 11:19:00 EDT, [facility] #[id number], 184, cm, 11/03/22 11:28:00 EDT, Height, 106.3, kg, 09/13/22 12:30:00 EDT, Dry Weight Start Date: 11/08/22 Status: Ordered atorvastatin 80 mg oral tablet 1 tablet = 80 mg, By Mouth, Daily, # 90 tablet, 3 Refills, Maintenance, 12/05/22 4:30:00 EDT, Tablet, [facility] #[id number], Partial fill upon patient request if the prescription is for a schedule II opioid drug., 183, cm, 11/10/22 17:28:00 EDT,... Start Date: 12/05/22 Status: Ordered BuPROPion (Eqv-Wellbutrin SR) 150 mg/12 hours oral tablet, extended release 1 tablet = 150 mg, By Mouth, 2 times a day, # 180 tablet, 3 Refills, Maintenance, 10/05/21 17:37:00EDT, SR Tablet, [facility] #[id number], Partial fill upon patient request if the prescription is for a schedule II opioid drug., 182, cm, 09/10/21... Start Date: 10/05/21 Status: Ordered clopidogrel 75 mg oral tablet 1, tablet, By Mouth, Daily, # 90 tablet, Refills 3, Maintenance, 01/13/23 16:50:00 EDT, Route to Pharmacy Electronically, [facility] #[id number], 183, cm, 12/05/22 16:08:00 EDT, Height, 106.3, kg, 09/13/22 12:30:00 EDT, Dry Weight Start Date: 01/13/23 Status: Ordered Flonase 50 mcg/inh nasal spray 1 sprays = 50 mcg, Nares, Both, 2 times a day, # 16 Gm, 5 Refills, Maintenance, 09/15/22 8:26:00 EDT, Nasal [place], [facility] #[id number], Partial fill upon patient request if the prescription is for a schedule II opioid drug., 1 sprays Nares, Tolu... Start Date: 09/15/22 Status: Ordered FLUoxetine 40 mg oral capsule 1 capsule = 40 mg, By Mouth, Daily, # 90 capsule, 3 Refills, Maintenance, 10/05/21 17:34:00 EDT, Capsule, [facility] #[id number], Partial fill upon patient request if the [...] 11 Refills, Maintenance, 11/30/22 6:36:00 EDT, Tablet, [facility] #[id number], Partial fill upon patient requestif the prescription [...] capsule, 1 Refills, Maintenance, 09/28/22 9:21:00 EDT, [facility] #[id number], Partial fill upon patient request if the [...] 10/05/21 17:36:00 EDT, Route to Pharmacy Electronically, [facility] #[id number], Partial fillupon patient request if the prescription [...] Name: [place] RN Position: [facility] ED RN W/OE and Tasks Member Role: Primary Care Nurse Name: Esme Garcia RN Position: [facility] RN Member Role: Primary Care Nurse Name: Erich Dias RN Position: [facility] RN Member Role: Primary Care Nurse Name: Camila Vazquez RN Position: [facility] RN Member Role: Primary Care Nurse Name: Taylor Beck RN Position: [facility] RN Member Role: Primary Care Nurse Name: Amanda Garibay RN Position: [facility] RN Member Role: Primary Care Nurse Name: Mary Roberson RN Position: [facility] RN Member Role: Primary Care Nurse Name: Tomas Stauffer RN Position: [facility] RN Member Role: Primary Care Nurse Name: Balaji Mayo MD Position: [facility] Physician - Primary Care Member Role: PCP Address: Address: [address] [place] [address]- Name: Fadumo Conti RN Position: [facility] RN Member Role: Primary Care Nurse Care Team Related Persons Name: ROSANA NAGY Address: home [address] [place] [address] Name: GORAN QUINTERO
--- OUTSIDE RECORDS SUMMARY | 2023-12-30 12:59 | XMS_ITS | Continuity of Care Document ---
Author Organization [facility] Address [address] [place] [address]- Care Team Providers Care Barrel Leveler Name Role Phone Balaji Mayo MD Primary Care Physician Encounter [facility] Date(s): 09/07/22 - 09/14/22 [facility] [address] [place], [place] [address] Attending Physician: Daniel Wright MD Admitting Physician: [...] pneumococcal 23-valent vaccine 12/17/12 Recorded 1Result Comment: [id number] 2Result Comment: [02/15/2018] [id number] 3Result Comment: [08/02/2017] [facility] 14861-730-36 Medications aspirin 81 mg oral delayed release tablet = 81 mg, By Mouth, Daily, # 90 tablet, 3 Refills, Maintenance, 10/05/21 17:34:00 EDT, EC Tablet, [facility] #[id number], Partial fill upon patient request if the prescription is for a schedule II opioid drug., 182, cm, 09/10/21 8:13:00 EDT, Heigh... Start Date: 10/05/21 Status: Ordered atorvastatin 80 mg oral tablet 1 tablet = 80 mg, By Mouth, Daily, # 90 tablet, 3 Refills, Maintenance, 10/05/21 17:34:00 EDT, Tablet, [facility] #[id number], Partial fill upon patient request if the prescription is for a schedule II opioid drug., 182, cm, 09/10/21 8:13:00 EDT,... Start Date: 10/05/21 Status: Ordered BuPROPion (Eqv-Wellbutrin SR) 150 mg/12 hours oral tablet, extended release 1 tablet = 150 mg, By Mouth, 2 times a day, # 180 tablet, 3 Refills, Maintenance, 10/05/21 17:37:00EDT, SR Tablet, [facility] #[id number], Partial fill upon patient request if the prescription is for a schedule II opioid drug., 182, william, 09/10/21... Start Date: 10/05/21 Status: Ordered clopidogrel 75 mg oral tablet 1, tablet, By Mouth, Daily, # 90 tablet, Refills 3, Tot. Refills 3, Maintenance, 10/05/21 17:34:00 EDT, Route to Pharmacy Electronically, [facility] #[id number], 182, cm, 09/10/21 8:13:00 EDT, Height, 102.7, kg, 09/08/21 16:41:00 EDT, Dry Weight Start Date: 10/05/21 Status: Ordered Flonase 50 mcg/inh nasal spray 1 sprays = 50 mcg, Nares, Both, 2 times a day, # 16 Gm, 5 Refills, Maintenance, 09/29/20 16:49:00 EDT, Nasal [place], [facility] #[id number], Partial fill upon patient request if the prescription is for a schedule II opioid drug., 1 Frances Maxwell. Start Date: 09/29/20 Status: Ordered FLUoxetine 10 mg oral capsule 10 mg, 1, capsule, By Mouth, Daily, Maintenance, 09/13/22 17:08:00 EDT, Partial fill upon patient request if the prescription is for a schedule II opioid drug. Start Date: 09/13/22 Status: Ordered FLUoxetine 40 mg oral capsule 1 capsule = 40 mg, By Mouth, Daily, # 90 capsule, 3 Refills, Maintenance, 10/05/21 17:34:00 EDT, Capsule, [facility] #[id number], Partial fill upon patient request if the prescription is for a schedule II opioid drug., 182, cm, 09/10/21 8:13:00 E... Start Date: 10/05/21 Status: Ordered isosorbide mononitrate 30 mg oral tablet, extended release 1 tablet = 30 mg, By Mouth, Daily in AM, # 90 tablet, 3 Refills, 10/05/21 17:35:00 EDT, [facility] #[id number], 182, cm, 09/10/21 8:13:00 EDT, Height, 102.7, kg, 09/08/21 16:41:00 EDT, Dry Weight Start Date: 10/05/21 Status: Ordered lamotrigine 100 [...] 06/06/22 14:13:00 EST, Route to Pharmacy Electronically, [facility] #[id number],Partial fill upon patient request if the prescripti... [...] 10/05/21 17:36:00 EDT, Route to Pharmacy Electronically, [facility] #[id number], Partial fillupon patient request if the prescription [...] oldest [Reference Range]: 1 Height 182 cm (09/07/22 10:35 AM) Weight 109 kg (09/07/22 10:35 AM) Oxygen Saturation [94-100 %] 100 % (09/07/22 10:35 AM) Pulse Rate [55-90 bpm] 73 bpm (09/07/22 10:35 AM) Body Mass Index [18.5-24.99 kg/m2] 32.91 kg/m2 *>HHI* (09/07/22 10:35 AM) Blood Pressure [90-138/55-84 mm Hg] 174/ 92mm Hg *H* (09/07/22 10:35 AM) Mode of Delivery (Oxygen) Room air (09/07/22 10:35 AM) Blood pressure sites Arm, right (09/07/22 10:35 AM) Weight Obtained Via Patient/family state d (09/07/22 10:35 AM) Social History Social History Type Response Smoking Status Current some day smo ker entered on: 02/15/18 Sex Note * Key Coy: PERFORM, SIGN, VERIFY Event Display: Patient Education/Instruction Authored Date: [id number] [facility] *[facility] [address] Clinical Summary Name ALIYA NAGY Age 67 Years 1955 PCP Maria Esther URIAS, Balaji Quick PCP Visit Date 09/07/2022 10:20:00 Additional Instructions: Scheduled Appointments?? Future Appointments ?*BMP??So[facility] [address],??[address] ?Phone:??--?Fax:??-- ?Appt. Date:??10/06/2022?10:20 AM ?Scheduled Provider:??Balaji Mayo MD Follow-Up Instructions ?? Diagnosis Medications: Please continue [...] Oral Daily. Refills: 3. Next Dose: Fluoxetine 50 Milligram Oral Daily. Next Dose: Fluoxetine (FLUoxetine 40 [...] twice a day. increase in dose. Refills: 2. Next Dose: Nitroglycerin (Nitrostat 0.4 mg sublingual tablet) 1 tab(s) Sublingual every 5 minutes. prn. Next Dose: Quetiapine (SEROquel 100 mg oral tablet) 4 tablets Oral Daily. Next Dose: Trazodone (traZODone 100 mg oral tablet) 2 tab(s) Oral Daily at Bedtime. Refills: 3. Next Dose: Allergy Info:?? Nicotine Patch; Abilify; Nuts; Vistaril; Benadryl; Clozaril; Claritin Medications Given This Visit Future Orders ?No future orders Vital Signs Height 182 cm Weight 109 kg BMI 32.91 kg/m2 Blood Pressure 174 mm Hg/92 mm Hg Temperature Pulse Rate 73 bpm Respiratory Rate 02 Sat Mode of Delivery 100 %/Room air You can now view a summary of your hospital visit from the comfort of your home through a free online portal called hopTo. hopTo is a website that allows you to securely view your medical information including discharge summary, medications and follow-up visits. ??You can alsosend a secure electronic message to your doctor???s office to request appointments, renew medications or just ask a question. You can enroll at [email or web address] or register during your next [...] primary care provider, you may find a [facility] provider by calling [facility] at [phone]. For information about the plan of care [...] Team Personnel Name: Wild Woods RN Position: [facility] ED RN W/OE and Tasks Member Role: Primary Care Nurse Name: Camila Vazquez RN Position: [facility] RN Member Role: Primary Care Nurse Name: Amanda Garibay RN Position: [facility] RN Member Role: Primary Care Nurse Name: Mary Roberson RN Position: [facility] RN Member Role: Primary Care Nurse Name: Tomas Stauffer RN Position: [facility] RN Member Role: Primary Care Nurse Name: Balaji Mayo MD Position: [facility] Physician - Primary Care Member Role: PCP Address: Address: [address] [place] [address]- Care Team Related Persons Name: ROSANA NAGY Address: [address] [address] Name: GORAN QUINTERO
--- OUTSIDE RECORDS SUMMARY | 2023-12-30 12:59 | XMS_ITS | Continuity of Care Document ---
Author Organization [facility] Kunal Aldair Address [address] [place] [address]- Care Team Providers Care Beater Out Name Role Phone Balaji Mayo MD Primary Care Physician Encounter [facility] Date(s): 11/02/20 - 11/09/20 [facility] Adult [address] [place] [address]- Attending Physician: Balaji Mayo MD Allergies, Adverse [...] acel(Tdap) 2 08/02/17 Given 1Result Comment: [02/15/2018] 89143-879-75 2Result Comment: [08/02/2017] [facility] 2] 33160-659-00 Medications amLODIPine 5 mg oral tablet 2.5 [...] 09/14/20 12:44:00 EDT, Route to Pharmacy Electronically, [facility] #[id number], 180, cm, 09/07/20 10:33:00 EDT, Height Start Date: 09/14/20 Status: Ordered Flonase 50 mcg/inh nasal spray 1 sprays = 50 mcg, Nares, Both, 2 times a day, # 16 Gm, 5 Refills, Maintenance, 09/29/20 16:49:00 EDT, Nasal [place], [facility] #[id number], Partial fill upon patient request if the [...] 09/13/20 6:59:00 EDT, Route to Pharmacy Electronically, [facility][id number], Partial fill upon patient request if the [...] tablet, 0 Refills, Maintenance, 09/14/20 12:44:00 EDT, [facility] #[id number], 180, cm, 09/07/20 10:33:00 EDT, Height Start [...] Maintenance, :58:00 EDT, Route to Pharmacy Electronically, [facility][id number], Partial fill upon patient request if the [...] oldest [Reference Range]: 1 Height 180 cm (11/02/20 1:42 PM) Weight 106.5 kg (11/02/20 1:42 PM) Oxygen Saturation [94-100 %] 98 % (11/02/20 1:42 PM) Pulse Rate [55-90 bpm] 56 bpm (11/02/20 1:42 PM) Body Mass Index [18.5-24.99] 32.87 *>HHI* (11/02/20 1:42 PM) Blood Pressure [90-138/55-84 mm Hg] 130/ 70mm Hg (11/02/20 1:42 PM) Temperature [96.8-100.4 DegF] 98.3 DegF (11/02/20 1:42 PM) Mode of Delivery (Oxygen) Room air (11/02/20 1:42 PM) Blood pressure sites Arm, left (11/02/20 1:42 PM) Temperature Route Oral (11/02/20 1:42 PM) Weight Obtained Via Standing scale (11/02/20 1:42 PM) Social History Social History Type Response Smoking Status Current some day mata garza entered on: 02/15/18 Sex
--- OUTSIDE RECORDS SUMMARY | 2023-12-30 12:59 | XMS_ITS | Continuity of Care Document ---
Author Organization [facility] Rico Syed Aldair lt Address [address] [place] [address]- Care Team Providers Care Payloader Operator Name Role Phone Maria Esther URIAS, Balaji Quick Primary Care Physician Encounter [facility] Date(s): 04/29/22 - 05/29/22 [facility] Rico Syed Adult [address] [place] [address]- Allergies, Adverse Reactions, Alerts Substance Reaction Severity [...] pneumococcal 23-valent vaccine 12/17/12 Recorded 1Result Comment: [id number] 2Result Comment: [02/15/2018] 70829-275-96 3Result Comment: [08/02/2017] [facility] 74752-989-13 Medications aspirin 81 mg oral delayed release tablet = 81 mg, By Mouth, Daily, # 90 tablet, 3 Refills, Maintenance, 10/05/21 17:34:00 EDT, EC Tablet, [facility] #[id number], Partial fill upon patient request if the prescription is for a schedule II opioid drug., 182, cm, 09/10/21 8:13:00 EDT, Heigh... Start Date: 10/05/21 Status: Ordered atorvastatin 80 mg oral tablet 1 tablet = 80 mg, By Mouth, Daily, # 90 tablet, 3 Refills, Maintenance, 10/05/21 17:34:00 EDT, Tablet, [facility] #[id number], Partial fill upon patient request if the prescription is for a schedule II opioid drug., 182, cm, 09/10/21 8:13:00 EDT,... Start Date: 10/05/21 Status: Ordered BuPROPion (Eqv-Wellbutrin SR) 150 mg/12 hours oral tablet, extended release 1 tablet = 150 mg, By Mouth, 2 times a day, # 180 tablet, 3 Refills, Maintenance, 10/05/21 17:37:00EDT, SR Tablet, [facility] #[id number], Partial fill upon patient request if the prescription is for a schedule II opioid drug., 182, cm, 09/10/21... Start Date: 10/05/21 Status: Ordered clopidogrel 75 mg oral tablet 1, tablet, By Mouth, Daily, # 90 tablet, Refills 3, Tot. Refills 3, Maintenance, 10/05/21 17:34:00 EDT, Route to Pharmacy Electronically, [facility] #[id number], 182, cm, 09/10/21 8:13:00 EDT, Height, 102.7, kg, 09/08/21 16:41:00 EDT, Dry Weight Start Date: 10/05/21 Status: Ordered Flonase 50 mcg/inh nasal spray 1 sprays = 50 mcg, Nares, Both, 2 times a day, # 16 Gm, 5 Refills, Maintenance, 09/29/20 16:49:00 EDT, Nasal [place], [facility] #[id number], Partial fill upon patient request if the prescription is for a schedule II opioid drug., 1 sprays Nares, B... Start Date: 09/29/20 Status: Ordered FLUoxetine 40 mg oral capsule 1 capsule = 40 mg, By Mouth, Daily, # 90 capsule, 3 Refills, Maintenance, 10/05/21 17:34:00 EDT, Capsule, [facility] #[id number], Partial fill upon patient request if the prescription is for a schedule II opioid drug., 182, cm, 09/10/21 8:13:00 E... Start Date: 10/05/21 Status: Ordered isosorbide mononitrate 30 mg oral tablet, extended release 1 tablet = 30 mg, By Mouth, Daily in AM, # 90 tablet, 3 Refills, 10/05/21 17:35:00 EDT, [facility] #[id number], 182, cm, 09/10/21 8:13:00 EDT, Height, 102.7, kg, 09/08/21 16:41:00 EDT, Dry Weight Start Date: 10/05/21 Status: Ordered lamotrigine 25 mg oral tablet 100 mg, 4, tablet, By Mouth, 2 times a day, # 720 tablet, Refills 3, Tot. Refills 3, Maintenance, 10/06/21 14:57:00 EDT, Route to Pharmacy Electronically, [facility] #[id number], Partial fill upon patient request if the prescription is for a sche... Start Date: 10/06/21 Stop Date: 10/01/22 Status: Ordered lidocaine 5% topical film 1 patch, Topically, Daily, PRN Pain , Mild, remove after 12 hours, # 30 patch, 11 Refills, Maintenance, 02/20/21 7:32:00 EDT, Patch, [facility], Partial fill upon patient request if the prescription is for a schedule II opioid drug., 1 patch T... Start Date: 02/20/21 Status: Ordered metoprolol 25 mg oral tablet 25 mg, 1, tablet, By Mouth, 2 times a day, increase in dose, # 60 tablet, Refills 5, Tot. Refills 5, Maintenance, 04/28/22 7:37:00 EST, Route to Pharmacy Electronically, [facility], Partial fill upon patient request if the prescription is for... Start Date: 04/28/22 Status: Ordered traZODone 100 mg oral tablet 200 mg, 2, tablet, By Mouth, Daily at bedtime, # 180 tablet, Refills 3, Tot. Refills 3, Maintenance, 10/05/21 17:36:00 EDT, Route to Pharmacy Electronically, [facility] #[id number], Partial fillupon patient request if the prescription [...] Personnel Name: Wild Woods RN Position: [facility] ED RN W/OE and Tasks Member Role: Primary Care Nurse Name: Camila Vazquez RN Position: [facility] RN Member Role: Primary Care Nurse Name: Amanda Garibay RN Position: [facility] RN Member Role: Primary Care Nurse Name: Mary Roberson RN Position: S RN Member Role: Primary Care Nurse Name: Tomas Stauffer RN Position: [facility] RN Member Role: Primary Care Nurse Name: Balaji Mayo MD Position: [facility] Primary Care Physician Member Role: PCP Address: Address: [address] [place] [address]- Name: Pattie Oates RN Position: [facility] RN Member Role: Primary Care Nurse Care Team Related Persons Name: ROSANA NAGY Address: home [address] [place] [address] Name: GORAN QUINTERO
--- OUTSIDE RECORDS SUMMARY | 2023-12-30 12:59 | XMS_ITS | Continuity of Care Document ---
Author Organization [facility] Address [address] [place] [address]- Care Team Providers Care Stripper Color Name Role Phone Maria Esther URIAS, Balaji Quick Primary Care Physician [phone] Encounter [facility] Date(s): 03/30/23 - 04/29/23 [facility] [address] [place] [address]- Allergies, Adverse Reactions, Alerts Substance Reaction Severity [...] 23-valent vaccine 12/17/12 Recorded 1Result Comment: [02/15/2018] 42232-664-70 2Result Comment: [id number] 3Result Comment: [08/02/2017] [facility]NOTE 2] 53475-249-56 Medications Aspirin Low Dose 81 mg oral delayed release tablet 1 tablet, By Mouth, Daily, # 90 tablet, 3 Refills, Maintenance, 11/08/22 11:19:00 EDT, [facility] #[id number], 184, cm, 11/03/22 11:28:00 EDT, Height, 106.3, kg, 09/13/22 12:30:00 EDT, Dry Weight Start Date: 11/08/22 Status: Ordered atorvastatin 80 mg oral tablet 1 tablet = 80 mg, By Mouth, Daily, # 90 tablet, 3 Refills, Maintenance, 12/05/22 4:30:00 EDT, Tablet, [facility] #[id number], Partial fill upon patient request if the prescription is for a schedule II opioid drug., 183, cm, 11/10/22 17:28:00 EDT,... Start Date: 12/05/22 Status: Ordered BuPROPion (Eqv-Wellbutrin SR) 150 mg/12 hours oral tablet, extended release 1 tablet = 150 mg, By Mouth, 2 times a day, # 180 tablet, 3 Refills, Maintenance, 10/05/21 17:37:00EDT, SR Tablet, [facility] #[id number], Partial fill upon patient request if the prescription is for a schedule II opioid drug., 182, cm, 09/10/21... Start Date: 10/05/21 Status: Ordered clopidogrel 75 mg oral tablet 1, tablet, By Mouth, Daily, # 90 tablet, Refills 3, Maintenance, 01/13/23 16:50:00 EDT, Route to Pharmacy Electronically, [facility] #[id number], 183, cm, 12/05/22 16:08:00 EDT, Height, 106.3, kg, 09/13/22 12:30:00 EDT, Dry Weight Start Date: 01/13/23 Status: Ordered Flonase 50 mcg/inh nasal spray 1 sprays = 50 mcg, Nares, Both, 2 times a day, # 16 Gm, 5 Refills, Maintenance, 09/15/22 8:26:00 EDT, Nasal [place], [facility] #[id number], Partial fill upon patient request if the prescription is for a schedule II opioid drug., 1 sprays Nares, Tolu... Start Date: 09/15/22 Status: Ordered FLUoxetine 40 mg oral capsule 1 capsule = 40 mg, By Mouth, Daily, # 90 capsule, 3 Refills, Maintenance, 10/05/21 17:34:00 EDT, Capsule, [facility] #[id number], Partial fill upon patient request if the [...] 11 Refills, Maintenance, 11/30/22 6:36:00 EDT, Tablet, [facility] #[id number], Partial fill upon patient requestif the prescription [...] capsule, 1 Refills, Maintenance, 09/28/22 9:21:00 EDT, [facility] #[id number], Partial fill upon patient request if the [...] 10/05/21 17:36:00 EDT, Route to Pharmacy Electronically, [facility] #[id number], Partial fillupon patient request if the prescription [...] Team Personnel Name: Wild Woods RN Position: [facility] ED RN W/OE and Tasks Member Role: Primary Care Nurse Name: Esme Garcia RN Position: [facility] RN Member Role: Primary Care Nurse Name: Erich Dias RN Position: [facility] RN Member Role: Primary Care Nurse Name: Camila Vazquez RN Position: [facility] RN Member Role: Primary Care Nurse Name: Taylor Beck RN Position: [facility] RN Member Role: Primary Care Nurse Name: Amanda Garibay RN Position: [facility] RN Member Role: Primary Care Nurse Name: Mary Roberson RN Position: [facility] RN Member Role: Primary Care Nurse Name: Tomas Stauffer RN Position: [facility] RN Member Role: Primary Care Nurse Name: Balaji Mayo MD Position: [facility] Physician - Primary Care Member Role: PCP Address: Address: [address] [place] [address]- [place] Care Team Related Persons Name: YAKOV ROSANA Address: home [address] [place] [address] Name: GORAN QUINTERO
--- OUTSIDE RECORDS SUMMARY | 2023-12-30 12:59 | XMS_ITS | Continuity of Care Document ---
Author Organization [facility] ter Address [address] [place] [address]- Care Team Providers Care Car Park Attendant Name Role Phone Maria Esther URIAS, Balaji Quick Primary Care Physician Encounter [facility] Date(s): 04/11/23 - 05/19/[address] [address] Attending Physician: Rose HYATT, [place] [...] 23-valent vaccine 12/17/12 Recorded 1Result Comment: [02/15/2018] [id number] 2Result Comment: [id number] 3Result Comment: [08/02/2017] [facility] 62411-678-77 Medications Aspirin Low Dose 81 mg oral delayed release tablet 1 tablet, By Mouth, Daily, # 90 tablet, 3 Refills, Maintenance, 11/08/22 11:19:00 EDT, [facility] #[id number], 184, cm, 11/03/22 11:28:00 EDT, Height, 106.3, kg, 09/13/22 12:30:00 EDT, Dry Weight Start Date: 11/08/22 Status: Ordered atorvastatin 80 mg oral tablet 1 tablet = 80 mg, By Mouth, Daily, # 90 tablet, 3 Refills, Maintenance, 12/05/22 4:30:00 EDT, Tablet, [facility] #[id number], Partial fill upon patient request if the prescription is for a schedule II opioid drug., 183, cm, 11/10/22 17:28:00 EDT,... Start Date: 12/05/22 Status: Ordered BuPROPion (Eqv-Wellbutrin SR) 150 mg/12 hours oral tablet, extended release 1 tablet = 150 mg, By Mouth, 2 times a day, # 180 tablet, 3 Refills, Maintenance, 10/05/21 17:37:00EDT, SR Tablet, [facility] #[id number], Partial fill upon patient request if the prescription is for a schedule II opioid drug., 182, cm, 09/10/21... Start Date: 10/05/21 Status: Ordered clopidogrel 75 mg oral tablet 1, tablet, By Mouth, Daily, # 90 tablet, Refills 3, Maintenance, 01/13/23 16:50:00 EDT, Route to Pharmacy Electronically, [facility] #[id number], 183, cm, 12/05/22 16:08:00 EDT, Height, 106.3, kg, 09/13/22 12:30:00 EDT, Dry Weight Start Date: 01/13/23 Status: Ordered Flonase 50 mcg/inh nasal spray 1 sprays = 50 mcg, Nares, Both, 2 times a day, # 16 Gm, 5 Refills, Maintenance, 09/15/22 8:26:00 EDT, Nasal [place], [facility] #[id number], Partial fill upon patient request if the prescription is for a schedule II opioid drug., 1 sprays Nares, Tolu... Start Date: 09/15/22 Status: Ordered FLUoxetine 40 mg oral capsule 1 capsule = 40 mg, By Mouth, Daily, # 90 capsule, 3 Refills, Maintenance, 10/05/21 17:34:00 EDT, Capsule, [facility] #[id number], Partial fill upon patient request if the [...] 11 Refills, Maintenance, 11/30/22 6:36:00 EDT, Tablet, [facility] #76118, Partial fill upon patient requestif the prescription [...] capsule, 1 Refills, Maintenance, 09/28/22 9:21:00 EDT, [facility] #[id number], Partial fill upon patient request if the [...] 10/05/21 17:36:00 EDT, Route to Pharmacy Electronically, [facility][id number], Partial fillupon patient request if the prescription [...] Team Personnel Name: Wild Woods RN Position: [facility] ED RN W/OE and Tasks Member Role: Primary Care Nurse Name: Esme Garcia RN Position: [facility] RN Member Role: Primary Care Nurse Name: Erich Dias RN Position: [facility] RN Member Role: Primary Care Nurse Name: Camila Vazquez RN Position: [facility] RN Member Role: Primary Care Nurse Name: Taylor Beck RN Position: [facility] RN Member Role: Primary Care Nurse Name: Amanda Garibay RN Position: [facility] RN Member Role: Primary Care Nurse Name: Mary Roberson RN Position: [facility] RN Member Role: Primary Care Nurse Name: Tomas Stauffer RN Position: [facility] ED RN W/OE and Tasks Member Role: Primary Care Nurse Name: Balaji Mayo MD Position: [facility] Physician - Primary Care Member Role: PCP Address: Address: [address] [place] [address]- [place] Care Team Related Persons Name: ROSANA NAGY Address: home [address] [place] [id number] Name: GORAN QUINTERO
--- OUTSIDE RECORDS SUMMARY | 2023-12-30 13:00 | XMS_ITS | Continuity of Care Document ---
Author Organization [facility] Rico Syed Aldair lt Address [address] [place] [address]- Care Team Providers Care Roper Operator Name Role Phone Balaji Mayo MD Primary Care Physician [phone] Encounter [facility] Date(s): 06/21/22 - 07/30/22 [facility] Rico Syed Adult [address] [place] [address]- Attending Physician: Balaji Mayo MD Referring Physician: Balaji [...] pneumococcal 23-valent vaccine 12/17/12 Recorded 1Result Comment: [id number] 2Result Comment: [02/15/2018] 98423-001-28 3Result Comment: [08/02/2017] [facility] 11521-687-12 Medications aspirin 81 mg oral delayed release tablet = 81 mg, By Mouth, Daily, # 90 tablet, 3 Refills, Maintenance, 10/05/21 17:34:00 EDT, EC Tablet, [facility] #[id number], Partial fill upon patient request if the prescription is for a schedule II opioid drug., 182, cm, 09/10/21 8:13:00 EDT, Heigh... Start Date: 10/05/21 Status: Ordered atorvastatin 80 mg oral tablet 1 tablet = 80 mg, By Mouth, Daily, # 90 tablet, 3 Refills, Maintenance, 10/05/21 17:34:00 EDT, Tablet, [facility] #[id number], Partial fill upon patient request if the prescription is for a schedule II opioid drug., 182, william, 09/10/21 8:13:00 EDT,... Start Date: 10/05/21 Status: Ordered BuPROPion (Eqv-Wellbutrin SR) 150 mg/12 hours oral tablet, extended release 1 tablet = 150 mg, By Mouth, 2 times a day, # 180 tablet, 3 Refills, Maintenance, 10/05/21 17:37:00EDT, SR Tablet, [facility] #[id number], Partial fill upon patient request if the prescription is for a schedule II opioid drug., 182, william, 09/10/21... Start Date: 10/05/21 Status: Ordered clopidogrel 75 mg oral tablet 1, tablet, By Mouth, Daily, # 90 tablet, Refills 3, Tot. Refills 3, Maintenance, 10/05/21 17:34:00 EDT, Route to Pharmacy Electronically, [facility] #[id number], 182, cm, 09/10/21 8:13:00 EDT, Height, 102.7, kg, 09/08/21 16:41:00 EDT, Dry Weight Start Date: 10/05/21 Status: Ordered Flonase 50 mcg/inh nasal spray 1 sprays = 50 mcg, Nares, Both, 2 times a day, # 16 Gm, 5 Refills, Maintenance, 09/29/20 16:49:00 EDT, Nasal [place], [facility] #[id number], Partial fill upon patient request if the [...] 3 Refills, Maintenance, 10/05/21 17:34:00 EDT, Capsule, [facility] #[id number], Partial fill upon patient request if the prescription is for a schedule II opioid drug., 182, cm, 09/10/21 8:13:00 E... Start Date: 10/05/21 Status: Ordered isosorbide mononitrate 30 mg oral tablet, extended release 1 tablet = 30 mg, By Mouth, Daily in AM, # 90 tablet, 3 Refills, 10/05/21 17:35:00 EDT, [facility] #[id number], 182, cm, 09/10/21 8:13:00 EDT, Height, 102.7, kg, 09/08/21 16:41:00 EDT, Dry Weight Start Date: 10/05/21 Status: Ordered lamotrigine 25 mg oral tablet 100 mg, 4, tablet, By Mouth, 2 times a day, # 720 tablet, Refills 3, Tot. Refills 3, Maintenance, 10/06/21 14:57:00 EDT, Route to Pharmacy Electronically, [facility] #[id number], Partial fill upon patient request if the [...] 06/06/22 14:13:00 EST, Route to Pharmacy Electronically, [facility] #[id number],Partial fill upon patient request if the prescripti... [...] 10/05/21 17:36:00 EDT, Route to Pharmacy Electronically, [facility] #[id number], Partial fillupon patient request if the prescription [...] Mayo MD Position: [facility] Primary Care Physician Member Role: PCP Address: Address: [address] [place] [address] [place] [address]- Care Team Related Persons Name: ROSANA NAGY Address: home [address] [place] [id number] Name: GORAN QUINTERO
--- OUTSIDE RECORDS SUMMARY | 2023-12-30 13:00 | XMS_ITS | Continuity of Care Document ---
Author Organization [facility] Address [address] [facility], [address] Floor, [address] [place] [address]- Care Team Providers Care Interchange Agent Name Role Phone Maria Esther URISA, Balaji Quick Primary Care Physician [phone] [place] [facility] [place]s): 08/16/22 - 09/15/22 [facility] [address], [address] Floor, [address] [place] [id number] Attending Physician: Admtr, Bertha Admitting Physician: AdmtrBertha Referring Physician: Admtr, Ar8 [...] pneumococcal 23-valent vaccine 12/17/12 Recorded 1Result Comment: [id number] 2Result Comment: [02/15/2018] 81907-185-73 3Result Comment: [08/02/2017] [facility] 97860-103-66 Medications amLODIPine 10 mg oral tablet 10 mg, 1, tablet, By Mouth, Daily, # 30 tablet, Refills 0, Tot. Refills 0, Maintenance, 09/15/22 8:28:00 EDT, Route to Pharmacy Electronically, [facility] #[id number], Partial fill upon patient request if the prescription is for a schedule II opi... Start Date: 09/15/22 Status: Ordered aspirin 81 mg oral delayed release tablet = 81 mg, By Mouth, Daily, # 90 tablet, 3 Refills, Maintenance, 10/05/21 17:34:00 EDT, EC Tablet, [facility] #[id number], Partial fill upon patient request if the prescription is for a schedule II opioid drug., 182, cm, 09/10/21 8:13:00 EDT, Heigh... Start Date: 10/05/21 Status: Ordered atorvastatin 80 mg oral tablet 1 tablet = 80 mg, By Mouth, Daily, # 90 tablet, 3 Refills, Maintenance, 10/05/21 17:34:00 EDT, Tablet, [facility] #[id number], Partial fill upon patient request if the prescription is for a schedule II opioid drug., 182, cm, 09/10/21 8:13:00 EDT,... Start Date: 10/05/21 Status: Ordered BuPROPion (Eqv-Wellbutrin SR) 150 mg/12 hours oral tablet, extended release 1 tablet = 150 mg, By Mouth, 2 times a day, # 180 tablet, 3 Refills, Maintenance, 10/05/21 17:37:00EDT, SR Tablet, [facility] #[id number], Partial fill upon patient request if the prescription is for a schedule II opioid drug., 182, cm, 09/10/21... Start Date: 10/05/21 Status: Ordered clopidogrel 75 mg oral tablet 1, tablet, By Mouth, Daily, # 90 tablet, Refills 3, Tot. Refills 3, Maintenance, 10/05/21 17:34:00 EDT, Route to Pharmacy Electronically, [facility] #[id number], 182, cm, 09/10/21 8:13:00 EDT, Height, 102.7, kg, 09/08/21 16:41:00 EDT, Dry Weight Start Date: 10/05/21 Status: Ordered Flonase 50 mcg/inh nasal spray 1 sprays = 50 mcg, Nares, Both, 2 times a day, # 16 Gm, 5 Refills, Maintenance, 09/15/22 8:26:00 EDT, Nasal [place], [facility] #[id number], Partial fill upon patient request if the [...] 3 Refills, Maintenance, 10/05/21 17:34:00 EDT, Capsule, [facility] #[id number], Partial fill upon patient request if the [...] Maintenance, 09/15/22 8:27:00 EDT, Route to Pharmacy Electronically,[facility] #[id number], Partial fill upon pa... Start Date: 09/15/22 [...] 06/06/22 14:13:00 EST, Route to Pharmacy Electronically, [facility] #[id number],Partial fill upon patient request if the prescripti... [...] 10/05/21 17:36:00 EDT, Route to Pharmacy Electronically, [facility] #[id number], Partial fillupon patient request if the prescription [...] Care Nurse Name: Camila Vazquez RN Position: [facility] RN Member Role: Primary Care Nurse Name: Taylor Beck RN Position: [facility] RN Member Role: Primary Care Nurse Name: Amanda Garibay RN Position: [facility] RN Member Role: Primary Care Nurse Name: Mary Roberson RN Position: [facility] RN Member Role: Primary Care Nurse Name: Tomas Stauffer RN Position: [facility] RN Member Role: Primary Care Nurse Name: Balaji Mayo MD Position: [facility] Physician - Primary Care Member Role: PCP Address: Address: [address] [place] [address]- Name: Fadumo Conti RN Position: [facility] RN Member Role: Primary Care Nurse Care Team Related Persons Name: ROSANA NAGY Address: [address] [address] Name: GORAN QUINTERO
--- OUTSIDE RECORDS SUMMARY | 2023-12-30 13:00 | XMS_ITS | Continuity of Care Document ---
Author Organization [facility] Kunal Aldair Address [address] [place] [address]- Care Team Providers Care Brokerage Coordinator Name Role Phone Balaji Mayo MD Primary Care Physician [place] [facility] [place]07[place]20 [place] 11/04/20 [facility] Adult [address] [place] [address]- Attending Physician: Balaji Mayo MD Allergies, Adverse [...] acel(Tdap) 2 08/02/17 Given 1Result Comment: [02/15/2018] 96338-995-87 2Result Comment: [08/02/2017] [facility] 51670-874-38 Medications amLODIPine 5 mg oral tablet 2.5 [...] 09/14/20 12:44:00 EDT, Route to Pharmacy Electronically, [facility] #[id number], 180, cm, 09/07/20 10:33:00 EDT, Height Start Date: 09/14/20 Status: Ordered Flonase 50 mcg/inh nasal spray 1 sprays = 50 mcg, Nares, Both, 2 times a day, # 16 Gm, 5 Refills, Maintenance, 09/29/20 16:49:00 EDT, Nasal [place], [facility] #[id number], Partial fill upon patient request if the [...] 09/13/20 6:59:00 EDT, Route to Pharmacy Electronically, [facility] #[id number], Partial fill upon patient request if the [...] tablet, 0 Refills, Maintenance, 09/14/20 12:44:00 EDT, [facility] #[id number], 180, cm, 09/07/20 10:33:00 EDT, Height Start [...] Maintenance, :58:00 EDT, Route to Pharmacy Electronically, [facility] #[id number], Partial fill upon patient request if the [...]
--- OUTSIDE RECORDS SUMMARY | 2023-12-30 13:00 | XMS_ITS | Continuity of Care Document ---
Author Organization [facility] Kunal Aldair Address [address] [place] [address]- Care Team Providers Care Casing Flusher Name Role Phone Maria Esther URIAS, Balaji Quick Primary Care Physician Encounter [facility] [place] Date(s): 10/30/19 - 11/29/19 [facility] Adult [address] [place] [address]- [facility] Allergies, Adverse Reactions, Alerts Substance Reaction Severity Status Claritin Active Clozaril Active Benadryl Active Vistaril Active Nuts Active Abilify Active Nicotine Patch Active Immunizations Given and Recorded Vaccine Date Status Refusal Reason influenza virus vaccine, inactivated 01/29/19 Give n influenza virus vaccine, inactivated 1 02/15/18 Gi juan tetanus/diphtheria/pertussis, acel(Tdap) 2 08/02/17 Given 1Result Comment: [02/15/2018] [id number] 2Result Comment: [08/02/2017] [facility] 07352-292-94 Medications amLODIPine 5 mg oral tablet 5 mg, 1, tablet, By Mouth, Daily, # 90 tablet, Refills 3, Tot. Refills 3, Maintenance, 11/26/19 16:38:00 EDT, Route to Pharmacy Electronically, [facility]/pharmacy #[id number], 180, cm, 06/26/19 8:31:00 EST, Height Start Date: 11/26/19 Status: Ordered Aspirin Tablet 81 mg, By Mouth, Daily, Maintenance, 04/15/13 17:02:08 Start Date: 04/15/13 Status: Ordered atorvastatin 80 mg oral tablet 1 tablet = 80 mg, By Mouth, Daily in AM, # 90 tablet, 1 Refills, Maintenance, 11/19/19 15:39:00 EDT, Tablet, [facility]/pharmacy #[id number], 180, cm, 06/26/19 8:31:00 EST, Height, [...] TAKE 1 TABLET BY MOUTH EVERY DAY, [facility]/pharmacy #[id number] Start Date: 03/14/19 Status: Ordered cyclobenzaprine 5 mg oral tablet 1 tablet = 5 mg, By Mouth, 2 times a day, PRN as needed for muscle spasm, # 60 tablet, 2 Refills, Maintenance, 04/07/19 18:48:10 EST, Tablet, [facility]/pharmacy #[id number], 180, cm, 01/29/19 9:22:52 EDT, [...] 10/24/19 18:11:00 EDT, Route to Pharmacy Electronically, [facility]/pharmacy #[id number], 180, cm, 06/26/19 8:31:00 EST, Height Start Date: 10/24/19 Status: Ordered Flomax 0.4 mg oral capsule 0.4 mg, 1, capsule, By Mouth, Daily, # 30 capsule, Refills 11, Tot. Refills 11, Maintenance, 04/20/18 9:51:29 EST, Route to Pharmacy Electronically, [id number], [facility]/pharmacy#2070 Start Date: 04/20/18 Status: Ordered Flonase 50 mcg/inh nasal spray 2 sprays, Nares, Both, 2 times a day, # 16 Gm, 0 Refills, Maintenance, 11/16/18 10:23:39 EDT, [place] Start Date: 11/16/18 Status: Ordered isosorbide mononitrate 30 mg oral tablet, extended release 30 mg, 1, tablet, By Mouth, Daily in AM, # 90 tablet, Refills 1, Tot. Refills 1, Maintenance, 04/25/19 15:31:00 EST, Route to Pharmacy Electronically, [facility]/pharmacy #[id number], 180, cm, 01/29/19 9:22:00 EDT, Height, 109.8, [...] 30 patch,5 Refills, Maintenance, 06/26/19 9:19:00 EST, [facility]/pharmacy #[id number], Apply to affected area Topically Daily; remove patches after 12 hours, 180, cm, ... Start Date: 06/26/19 Status: Ordered metoprolol 25 mg oral tablet 25 mg, 1, tablet, By Mouth, 2 times a day, # 60 tablet, Refills 5, Tot. Refills 5, Maintenance, 09/18/19 16:23:00 EDT, Route to Pharmacy Electronically, [facility]/pharmacy #[id number], 180, cm, 06/26/19 8:31:00 EST, Height, [...]
--- OUTSIDE RECORDS SUMMARY | 2023-12-30 13:00 | XMS_ITS | Continuity of Care Document ---
Author Organization [facility] Address [address] [place] [address]- Care Team Providers Care Sap Portal Consultant Name Role Phone Maria Esther URIAS, Balaji Quick Primary Care Physician [phone] Encounter [facility] [place] Date(s): 09/25/19 - 10/25/19 [facility] [address] [place] [address]- [facility] Attending Physician: Bertha Fried Admitting Physician: AdmtrBertha Referring Physician: AdmtrBertha Allergies, Adverse Reactions, Alerts Substance Reaction Severity Status Claritin Active Clozaril Active Benadryl Active Vistaril Active Nuts Active Abilify Active Nicotine Patch Active Immunizations Given and Recorded Vaccine Date Status Refusal Reason influenza virus vaccine, inactivated 01/29/19 Give n influenza virus vaccine, inactivated 1 02/15/18 Gi juan tetanus/diphtheria/pertussis, acel(Tdap) 2 08/02/17 Given 1Result Comment: [02/15/2018] 72838-444-14 2Result Comment: [08/02/2017] [facility] 17738-889-51 Medications Aspirin Tablet 81 mg, By Mouth, [...] TAKE 1 TABLET BY MOUTH EVERY DAY, [facility]/pharmacy #[id number] Start Date: 03/14/19 Status: Ordered cyclobenzaprine 5 mg oral tablet 1 tablet = 5 mg, By Mouth, 2 times a day, PRN as needed for muscle spasm, # 60 tablet, 2 Refills, Maintenance, 04/07/19 18:48:10 EST, Tablet, [facility]/pharmacy #[id number], 180, cm, 01/29/19 9:22:52 EDT, Height, [...] 10/24/19 18:11:00 EDT, Route to Pharmacy Electronically, [facility]/pharmacy #[id number], 180, cm, 06/26/19 8:31:00 EST, Height Start Date: 10/24/19 Status: Ordered Flomax 0.4 mg oral capsule 0.4 mg, 1, capsule, By Mouth, Daily, # 30 capsule, Refills 11, Tot. Refills 11, Maintenance, 04/20/18 9:51:29 EST, Route to Pharmacy Electronically, [id number], [facility]/pharmacy#2070 Start Date: 04/20/18 Status: Ordered Flonase 50 mcg/inh nasal spray 2 sprays, Nares, Both, 2 times a day, # 16 Gm, 0 Refills, Maintenance, 11/16/18 10:23:39 EDT, [place] Start Date: 11/16/18 Status: Ordered isosorbide mononitrate 30 mg oral tablet, extended release 30 mg, 1, tablet, By Mouth, Daily in AM, # 90 tablet, Refills 1, Tot. Refills 1, Maintenance, 04/25/19 15:31:00 EST, Route to Pharmacy Electronically, [facility]/pharmacy #[id number], 180, cm, 01/29/19 9:22:00 EDT, Height, [...] 30 patch,5 Refills, Maintenance, 06/26/19 9:19:00 EST, [facility]/pharmacy #[id number], Apply to affected area Topically Daily; remove patches after 12 hours, 180, cm, 03/0... Start Date: 06/26/19 Status: Ordered metoprolol 25 mg oral tablet 25 mg, 1, tablet, By Mouth, 2 times a day, # 60 tablet, Refills 5, Tot. Refills 5, Maintenance, 09/18/19 16:23:00 EDT, Route to Pharmacy Electronically, [facility]/pharmacy #[id number], 180, cm, 06/26/19 8:31:00 EST, Height, [...] Type Response Smoking Status Current some day [facility] entered on: 02/15/18 Sex
--- OUTSIDE RECORDS SUMMARY | 2023-12-30 13:00 | XMS_ITS | Continuity of Care Document ---
Author Organization [facility] Kunal Aldair Address [address] [place] [address]- Care Team Providers Care Administrative Supervisor Name Role Phone Maria Esther URIAS, Balaji Quick Primary Care Physician En[place] [facility] [place] Date(s): 08/18/20 - 09/17/20 [facility] Adult [address] [place] [address]- Allergies, Adverse Reactions, Alerts Substance Reaction Severity [...] acel(Tdap) 2 08/02/17 Given 1Result Comment: [02/15/2018] [id number] 2Result Comment: [08/02/2017] [facility] 48468-389-41 Medications amLODIPine 5 mg oral tablet 2.5 [...] 09/14/20 12:44:00 EDT, Route to Pharmacy Electronically, [facility] #[id number], 180, cm, 09/07/20 10:33:00 EDT, Height Start Date: 09/14/20 Status: Ordered cyclobenzaprine 5 mg oral tablet 1 tablet = 5 mg, By Mouth, 3 times a day, PRN Pain , Moderate, for 10 days, # 30 tablet, 1 Refills,Acute 09/27/20 16:55:00 EDT, 09/07/20 16:55:00 EDT, Tablet, [facility], Partial fill [...] 09/13/20 6:59:00 EDT, Route to Pharmacy Electronically, [facility] #[id number], Partial fill upon patient request if the [...] tablet, 0 Refills, Maintenance, 09/14/20 12:44:00 EDT, [facility] #[id number], 180, cm, 09/07/20 10:33:00 EDT, Height Start [...] Maintenance, 217:58:00 EDT, Route to Pharmacy Electronically, [facility] #[id number], Partial fill upon patient request if the [...]
--- OUTSIDE RECORDS SUMMARY | 2023-12-30 13:00 | XMS_ITS | Continuity of Care Document ---
Author Organization [facility] Rico Syed Aldair lt Address [address] [place] [address]- Care Team Providers Care Traveling Sales Executive Name Role Phone Maria Esther URIAS, Balaji Quick Primary Care Physician [facility]counter [facility] Date(s): 05/31/23 - 06/30/23 [facility] Rico Syed Adult [address] [place] [address]- Allergies, Adverse Reactions, Alerts Substance Reaction Severity [...] 23-valent vaccine 12/17/12 Recorded 1Result Comment: [02/15/2018] 43796-107-95 2Result Comment: [id number] 3Result Comment: [08/02/2017] [facility] 96207-887-56 Medications Aspirin Low Dose 81 mg oral delayed release tablet 1 tablet, By Mouth, Daily, # 90 tablet, 3 Refills, Maintenance, 11/08/22 11:19:00 EDT, [facility] #69059, 184, cm, 11/03/22 11:28:00 EDT, Height, 106.3, kg, 09/13/22 12:30:00 EDT, Dry Weight Start Date: 11/08/22 Status: Ordered atorvastatin 80 mg oral tablet 1 tablet = 80 mg, By Mouth, Daily, # 90 tablet, 3 Refills, Maintenance, 12/05/22 4:30:00 EDT, Tablet, [facility] #16345, Partial fill upon patient request if the prescription is for a schedule II opioid drug., 183, cm, 11/10/22 17:28:00 EDT,... Start Date: 12/05/22 Status: Ordered BuPROPion (Eqv-Wellbutrin SR) 150 mg/12 hours oral tablet, extended release 1 tablet = 150 mg, By Mouth, 2 times a day, # 180 tablet, 3 Refills, Maintenance, 10/05/21 17:37:00EDT, SR Tablet, [facility] #[id number], Partial fill upon patient request if the prescription is for a schedule II opioid drug., 182, cm, 09/10/21... Start Date: 10/05/21 Status: Ordered clopidogrel 75 mg oral tablet 1, tablet, By Mouth, Daily, # 90 tablet, Refills 3, Maintenance, 01/13/23 16:50:00 EDT, Route to Pharmacy Electronically, [facility] #[id number], 183, cm, 12/05/22 16:08:00 EDT, Height, 106.3, kg, 09/13/22 12:30:00 EDT, Dry Weight Start Date: 01/13/23 Status: Ordered Flonase 50 mcg/inh nasal spray 1 sprays = 50 mcg, Nares, Both, 2 times a day, # 16 Gm, 5 Refills, Maintenance, 09/15/22 8:26:00 EDT, Nasal [place], [facility] #[id number], Partial fill upon patient request if the prescription is for a schedule II opioid drug., 1 sprays Nares, [place]... Start Date: 09/15/22 Status: Ordered FLUoxetine 40 mg oral capsule 1 capsule = 40 mg, By Mouth, Daily, # 90 capsule, 3 Refills, Maintenance, 10/05/21 17:34:00 EDT, Capsule, [facility] #[id number], Partial fill upon patient request if the [...] 11 Refills, Maintenance, 11/30/22 6:36:00 EDT, Tablet, [facility] #61930, Partial fill upon patient requestif the prescription [...] capsule, 1 Refills, Maintenance, 09/28/22 9:21:00 EDT, [facility] #[id number], Partial fill upon patient request if the [...] 10/05/21 17:36:00 EDT, Route to Pharmacy Electronically, [facility] #[id number], Partial fillupon patient request if the prescription [...] Team Personnel Name: [place] RN Position: [facility] ED RN W/OE and Tasks Member Role: Primary Care Nurse Name: Esme Garcia RN Position: [facility] RN Member Role: Primary Care Nurse Name: Erich Dias RN Position: [facility] RN Member Role: Primary Care Nurse Name: Camila Vazquez RN Position: [facility] RN Member Role: Primary Care Nurse Name: Taylor Beck RN Position: [facility] RN Member Role: Primary Care Nurse Name: Amanda Garibay RN Position: [facility] RN Member Role: Primary Care Nurse Name: Mary Roberson RN Position: [facility] RN Member Role: Primary Care Nurse Name: Tomas Stauffer RN Position: [facility] RN Member Role: Primary Care Nurse Name: Balaji Mayo MD Position: [facility] Physician - Primary Care Member Role: PCP Address: Address: [address] [place] [address] [place] [address]- Care Team Related Persons Name: YAKOV ROSANA Address: home [address] [place] [id number] Name: GORAN QUINTERO
--- OUTSIDE RECORDS SUMMARY | 2023-12-30 13:00 | XMS_ITS | Continuity of Care Document ---
Author Organization [facility] Kunal Aldair lt Address [address] [place] [address]- Care Team Providers Care Die Trimmer Name Role Phone Maria Esther URIAS, Balaji Quick Primary Care Physician Encounter [facility] Date(s): 11/10/21 - 12/10/21 [facility] Kunal Adult [address] [place] [address]- Allergies, Adverse Reactions, Alerts Substance Reaction Severity [...] 23-valent vaccine 12/17/12 Recorded 1Result Comment: [02/15/2018] 96120-079-23 2Result Comment: [08/02/2017] [facility] 34175-262-97 Medications aspirin 81 mg oral delayed release tablet = 81 mg, By Mouth, Daily, # 90 tablet, 3 Refills, Maintenance, 10/05/21 17:34:00 EDT, EC Tablet, [facility] #[id number], Partial fill upon patient request if the prescription is for a schedule II opioid drug., 182, cm, 09/10/21 8:13:00 EDT, Heigh... Start Date: 10/05/21 Status: Ordered atorvastatin 80 mg oral tablet 1 tablet = 80 mg, By Mouth, Daily, # 90 tablet, 3 Refills, Maintenance, 10/05/21 17:34:00 EDT, Tablet, [facility] #[id number], Partial fill upon patient request if the prescription is for a schedule II opioid drug., 182, cm, 09/10/21 8:13:00 EDT,... Start Date: 10/05/21 Status: Ordered BuPROPion (Eqv-Wellbutrin SR) 150 mg/12 hours oral tablet, extended release 1 tablet = 150 mg, By Mouth, 2 times a day, # 180 tablet, 3 Refills, Maintenance, 10/05/21 17:37:00EDT, SR Tablet, [facility] #[id number], Partial fill upon patient request if the prescription is for a schedule II opioid drug., 182, cm, 09/10/21... Start Date: 10/05/21 Status: Ordered clopidogrel 75 mg oral tablet 1, tablet, By Mouth, Daily, # 90 tablet, Refills 3, Tot. Refills 3, Maintenance, 10/05/21 17:34:00 EDT, Route to Pharmacy Electronically, [facility] #[id number], 182, cm, 09/10/21 8:13:00 EDT, Height, 102.7, [...] 5 Refills, Maintenance, 09/29/20 16:49:00 EDT, Nasal [place], [facility] #[id number], Partial fill upon patient request if the prescription is for a schedule II opioid drug., 1 sprays Nares, B... Start Date: 09/29/20 Status: Ordered FLUoxetine 40 mg oral capsule 1 capsule = 40 mg, By Mouth, Daily, # 90 capsule, 3 Refills, Maintenance, 10/05/21 17:34:00 EDT, Capsule, [facility] #[id number], Partial fill upon patient request if the [...] 90 tablet, 3 Refills, 10/05/21 17:35:00 EDT, [facility] #[id number], 182, cm, 09/10/21 8:13:00 EDT, Height, 102.7, [...] 10/06/21 14:57:00 EDT, Route to Pharmacy Electronically, [facility] #[id number], Partial fill upon patient request if the prescription is for a sche... Start Date: 10/06/21 Stop Date: 10/01/22 Status: Ordered lidocaine 5% topical film 1 patch, Topically, Daily, PRN Pain , Mild, remove after 12 hours, # 30 patch, 11 Refills, Maintenance, 02/20/21 7:32:00 EDT, Patch, [facility], Partial fill upon patient request if the prescription is for a schedule II opioid drug., 1 patch T... Start Date: 02/20/21 Status: Ordered metoprolol 25 mg oral tablet 12.5 mg, 0.5, tablet, By Mouth, 2 times a day, # 90 tablet, Refills 3, Tot. Refills 3, Maintenance,10/05/21 17:40:00 EDT, Route to Pharmacy Electronically, [facility] #[id number], Partial fill upon patient request if the prescription is for a sc... Start Date: 10/05/21 Status: Ordered QUEtiapine 400 mg oral tablet, extended release 400 mg, 1, tablet, By Mouth, Daily in PM, # 90 tablet, Refills 1, Tot. Refills 1, Maintenance, 10/05/21 17:36:00 EDT, Route to Pharmacy Electronically, [facility] #[id number], Partial fill upon patient request if the [...] 10/05/21 17:36:00 EDT, Route to Pharmacy Electronically, [facility] #[id number], Partial fillupon patient request if the prescription [...]
--- OUTSIDE RECORDS SUMMARY | 2023-12-30 13:00 | XMS_ITS | Continuity of Care Document ---
Author Organization [facility] ter Address [address] [place] [address]- Care Team Providers Care Sample Stitcher Name Role Phone Maria Esther URIAS, Balaji Quick Primary Care Physician Encounter [facility] Date(s): 10/27/21 - 10/28/[address] [address]- Encounter Diagnosis Fall(Final) - 10/28/21 COVID-19 virus infection(Final) - 10/28/21 Discharge Disposition: A-D/C Home Attending Physician: Marlen [...] 23-valent vaccine 12/17/12 Recorded 1Result Comment: [02/15/2018] [id number] 2Result Comment: [08/02/2017] [facility] 34722-313-57 Medications aspirin 81 mg oral delayed release tablet = 81 mg, By Mouth, Daily, # 90 tablet, 3 Refills, Maintenance, 10/05/21 17:34:00 EDT, EC Tablet, [facility] #[id number], Partial fill upon patient request if the prescription is for a schedule II opioid drug., 182, cm, 09/10/21 8:13:00 EDT, Heigh... Start Date: 10/05/21 Status: Ordered atorvastatin 80 mg oral tablet 1 tablet = 80 mg, By Mouth, Daily, # 90 tablet, 3 Refills, Maintenance, 10/05/21 17:34:00 EDT, Tablet, [facility] #[id number], Partial fill upon patient request if the prescription is for a schedule II opioid drug., 182, cm, 09/10/21 8:13:00 EDT,... Start Date: 10/05/21 Status: Ordered BuPROPion (Eqv-Wellbutrin SR) 150 mg/12 hours oral tablet, extended release 1 tablet = 150 mg, By Mouth, 2 times a day, # 180 tablet, 3 Refills, Maintenance, 10/05/21 17:37:00EDT, SR Tablet, [facility] #[id number], Partial fill upon patient request if the prescription is for a schedule II opioid drug., 182, cm, 09/10/21... Start Date: 10/05/21 Status: Ordered clopidogrel 75 mg oral tablet 1, tablet, By Mouth, Daily, # 90 tablet, Refills 3, Tot. Refills 3, Maintenance, 10/05/21 17:34:00 EDT, Route to Pharmacy Electronically, [facility] #[id number], 182, cm, 09/10/21 8:13:00 EDT, Height, 102.7, [...] 5 Refills, Maintenance, 09/29/20 16:49:00 EDT, Nasal [place], [facility] #[id number], Partial fill upon patient request if the prescription is for a schedule II opioid drug., 1 sprays Nares, B... Start Date: 09/29/20 Status: Ordered FLUoxetine 40 mg oral capsule 1 capsule = 40 mg, By Mouth, Daily, # 90 capsule, 3 Refills, Maintenance, 10/05/21 17:34:00 EDT, Capsule, [facility] #[id number], Partial fill upon patient request if the prescription is for a schedule II opioid drug., 182, cm, 09/10/21 8:13:00 E... Start Date: 10/05/21 Status: Ordered Hinged left knee brace Hinged left knee brace, See Instructions, # 1 each, Refills 0, Tot. Refills 0, Maintenance, DX: left knee pain arthritis M25.562 SHERAMN 99 MOS, 02/16/21 11:39:00 EDT, Supply Start Date: 02/16/21 Status: Ordered isosorbide mononitrate 30 mg oral tablet, extended release 1 tablet = 30 mg, By Mouth, Daily in AM, # 90 tablet, 3 Refills, 10/05/21 17:35:00 EDT, [facility] #[id number], 182, cm, 09/10/21 8:13:00 EDT, Height, 102.7, [...] 10/06/21 14:57:00 EDT, Route to Pharmacy Electronically, [facility] #[id number], Partial fill upon patient request if the prescription is for a sche... Start Date: 10/06/21 Stop Date: 10/01/22 Status: Ordered lidocaine 5% topical film 1 patch, Topically, Daily, PRN Pain , Mild, remove after 12 hours, # 30 patch, 11 Refills, Maintenance, 02/20/21 7:32:00 EDT, Patch, [facility], Partial fill upon patient request if the prescription is for a schedule II opioid drug., 1 patch T... Start Date: 02/20/21 Status: Ordered metoprolol 25 mg oral tablet 12.5 mg, 0.5, tablet, By Mouth, 2 times a day, # 90 tablet, Refills 3, Tot. Refills 3, Maintenance,10/05/21 17:40:00 EDT, Route to Pharmacy Electronically, [facility] #[id number], Partial fill upon patient request if the prescription is for a sc... Start Date: 10/05/21 Status: Ordered QUEtiapine 400 mg oral tablet, extended release 400 mg, 1, tablet, By Mouth, Daily in PM, # 90 tablet, Refills 1, Tot. Refills 1, Maintenance, 10/05/21 17:36:00 EDT, Route to Pharmacy Electronically, [facility] #[id number], Partial fill upon patient request if the prescription is for a schedul... Start Date: 10/05/21 Status: Ordered ALF VISIT FREQUENCY ALF VISIT FREQUENCY, See Instructions, # 1 each, Refills 0, Tot. Refills 0, Maintenance, PLEASE INCREASE ALF VISITS TO TWICE A DAY FOR MEDICATION MANAGEMENT AND ADMINISTRATION., 10/06/21 15:08:00 EDT, Supply Start Date: 10/06/21 Status: Ordered traZODone 100 mg oral tablet 200 mg, 2, tablet, By Mouth, Daily at bedtime, # 180 tablet, Refills 3, Tot. Refills 3, Maintenance, 10/05/21 17:36:00 EDT, Route to Pharmacy Electronically, [facility] #[id number], Partial fillupon patient request if the prescription [...] by duplex 4repeat screening colonoscopy in 2021 Results Orders for Microbiology Reports Name Date Blood Culture 10/27/21 Microbiology Reports TEST:Blood Culture STATUS:Unauthenticated BODY SITE: SOURCE:Blood COLLECTED DATE/TIME:10/27/21 7:32 AM Blood Culture SPECIMEN DESCRIPTION : BLOOD SPECIAL REQUESTS : NONE CULTURE : NO GROWTH AFTER 24 HOURS REPORT STATUS : PRELIMINARY REPORT Radiology Reports * Exam Date Time Procedure Performing Provider Status 10/27/21 7:55 AM Chest 2 Views Frontal and Lat Elmer , Zoya; Auth (Verified) Notes: (Chest 2 Views Frontal and Lat) Reason For Exam: Chest Pain;Other: RESULT: Chest 2 Views Frontal and Lat Chest 2 Views Frontal and Lat Hx of Present Illness: pt stated his dog woke him up and when he tried to get up he fell, denies dizziness lightheadedness, reports his legs just gave out, pt denies head strike, no LOC, pt was unable to gete up so he used his life alert and JOSE ENRIQUE arrived. on THINNERS; Reason: Other:; Chest Pain; Clinical Question(s): Other: COMPARISON: 08/24/2020 FINDINGS: LINES AND TUBES: None. LUNGS AND PLEURA: Clear lungs. Normal pulmonary vascularity. No pleural effusion. No pneumothorax. HEART, MEDIASTINUM AND CHRIS: Heart is normal in size. Cardiac stent noted. Normal upper mediastinal and hilar contour. BONES AND SOFT TISSUES: No acute abnormality. IMPRESSION: No acute abnormality. WSN: [id number] Ordering Physician: Bg Garvin Dictated By: Nara Rubio MD, I Dictated Date/Time: 10/27/21 8:19 am Reviewed By: Nara Rubio MD, I Signed By: Nara Rubio MD, I Signed Date/Time: 10/27/21 8:19 am Transcribed By: JOSEPH Transcribed Date/Time: 10/27/21 8:18 am Vital Signs Most recent to oldest [Reference Range]: 1 2 3 Oxygen Saturation [94-100 %] 96 % (10/28/21 9:07 PM) 96 % (10/28/21 7:00 PM) 94 % (10/28/21 4:43 AM) Pulse Rate [55-90 bpm] 98 bpm *H* (10/28/21 9:07 PM) 74 bpm (10/28/21 7:00 PM) 76 bpm (10/28/21 4:43 AM) Blood Pressure [90-138/55-84 mm Hg] 195/140mm Hg *H* (10/28/21 9:07 PM) 226/105mm Hg *H* (10/28/21 7:00 PM) 189/87mm Hg *H* (10/28/21 4:43 AM) Respiratory Rate [16-30 br/min] 22 br/min (10/28/21 9:07 PM) 18 br/min (10/28/21 7:00 PM) 18 br/min (10/28/21 4:43 AM) Temperature [96.8-100.4 DegF] 99.6 DegF (10/28/21 7:00 PM) 98.4 DegF (10/28/21 4:43 AM) 98.7 DegF (10/28/21 2:53 AM) Mode of Delivery (Oxygen) Room air (10/28/21 9:07 PM) Room air (10/28/21 7:00 PM) Room air (10/28/21 4:43 AM) Blood pressure sites Arm, right (10/28/21 9:07 PM) Arm, right (10/28/21 7:00 PM) Arm, right (10/28/21 4:43 AM) Temperature Route Oral (10/28/21 7:00 PM) Oral (10/28/21 4:43 AM) Oral (10/28/21 2:53 AM) Social History Social History Type Response Smoking Status Current some day mata garza entered on: 02/15/18 Sex
--- OUTSIDE RECORDS SUMMARY | 2023-12-30 13:00 | XMS_ITS | Continuity of Care Document ---
Author Organization [facility] Kunal Aldair Address [address] [place] [address]- Care Team Providers Care Natural Resources Technician Name Role Phone Maria Esther URIAS, Balaji Quick Primary Care Physician [phone] Encounter [facility] Date(s): 09/23/20 - 10/23/20 [facility] Adult [address] [place] [address]- Allergies, Adverse Reactions, Alerts Substance Reaction Severity [...] acel(Tdap) 2 08/02/17 Given 1Result Comment: [02/15/2018] [id number] 2Result Comment: [08/02/2017] [facility] 45779-522-35 Medications amLODIPine 5 mg oral tablet 2.5 [...] 09/14/20 12:44:00 EDT, Route to Pharmacy Electronically, [facility] #[id number], 180, cm, 09/07/20 10:33:00 EDT, Height Start Date: 09/14/20 Status: Ordered Flonase 50 mcg/inh nasal spray 1 sprays = 50 mcg, Nares, Both, 2 times a day, # 16 Gm, 5 Refills, Maintenance, 09/29/20 16:49:00 EDT, Nasal [place], [facility] #[id number], Partial fill upon patient request if the [...] 09/13/20 6:59:00 EDT, Route to Pharmacy Electronically, [facility] #01858, Partial fill upon patient request if the [...] tablet, 0 Refills, Maintenance, 09/14/20 12:44:00 EDT, [facility] #[id number], 180, cm, 09/07/20 10:33:00 EDT, Height Start [...] [facility][id number], Partial fill upon patient request if the [...]
--- OUTSIDE RECORDS SUMMARY | 2023-12-30 13:00 | XMS_ITS | Continuity of Care Document ---
Author Organization [facility] Kunal Aldair Address [address] [place] [address]- Care Team Providers Care Foreign Student Adviser Teacher Name Role Phone Maria Esther URIAS, Balaji Quick Primary Care Physician [place] [facility] [place] 09/08/20 - 10/08/20 [facility] Adult [address] [place] [address]- Allergies, Adverse Reactions, Alerts Substance Reaction Severity [...] acel(Tdap) 2 08/02/17 Given 1Result Comment: [02/15/2018] [id number] 2Result Comment: [08/02/2017] [facility] 39815-134-88 Medications amLODIPine 5 mg oral tablet 2.5 [...] 09/14/20 12:44:00 EDT, Route to Pharmacy Electronically, [facility] #[id number], 180, cm, 09/07/20 10:33:00 EDT, Height Start Date: 09/14/20 Status: Ordered Flonase 50 mcg/inh nasal spray 1 sprays = 50 mcg, Nares, Both, 2 times a day, # 16 Gm, 5 Refills, Maintenance, 09/29/20 16:49:00 EDT, Nasal [place], [facility] #02832, Partial fill upon patient request if the [...] 09/13/20 6:59:00 EDT, Route to Pharmacy Electronically, [facility] #[id number], Partial fill upon patient request if the [...] tablet, 0 Refills, Maintenance, 09/14/20 12:44:00 EDT, [facility] #36154, 180, cm, 09/07/20 10:33:00 EDT, Height Start [...] Maintenance, 217:58:00 EDT, Route to Pharmacy Electronically, [facility] #[id number], Partial fill upon patient request if the [...]
--- OUTSIDE RECORDS SUMMARY | 2023-12-30 13:00 | XMS_ITS | Continuity of Care Document ---
Author Organization [facility] Address Unknown Care Team Providers Care Chief Clinical Officer Name Role Phone Maria Esther URIAS, Balaji Quick Primary Care Physician [phone] [place] [facility] [place] 12/09[place]20 - 01/08/21 [facility] Allergies, Adverse Reactions, Alerts Substance Reaction Severity [...] acel(Tdap) 2 08/02/17 Given 1Result Comment: [02/15/2018] [id number] 2Result Comment: [08/02/2017] [facility] 48651-575-48 Medications amLODIPine 5 mg oral tablet 2.5 [...] 09/14/20 12:44:00 EDT, Route to Pharmacy Electronically, [facility] #[id number], 180, cm, 09/07/20 10:33:00 EDT, Height Start Date: 09/14/20 Status: Ordered Flonase 50 mcg/inh nasal spray 1 sprays = 50 mcg, Nares, Both, 2 times a day, # 16 Gm, 5 Refills, Maintenance, 09/29/20 16:49:00 EDT, Nasal [place], [facility] #[id number], Partial fill upon patient request if the [...] 09/13/20 6:59:00 EDT, Route to Pharmacy Electronically, [facility] #[id number], Partial fill upon patient request if the [...] tablet, 0 Refills, Maintenance, 09/14/20 12:44:00 EDT, [facility] #00397, 180, cm, 09/07/20 10:33:00 EDT, Height Start [...] Maintenance, :58:00 EDT, Route to Pharmacy Electronically, [facility] #[id number], Partial fill upon patient request if the [...] Type Response Smoking Status Current some day [facility] ker entered on: 02/15/18 Sex
--- OUTSIDE RECORDS SUMMARY | 2023-12-30 13:00 | XMS_ITS | Continuity of Care Document ---
Author Organization [facility] Kunal Aldair Address [address] [place] [address]- Care Team Providers Care Lvn Name Role Phone Maria Esther URIAS, Balaji Quick Primary Care Physician [place] [facility] [place]02[place]20 [place] 10/02/20 [facility] Adult [address] [place] [address]- Allergies, Adverse Reactions, Alerts Substance Reaction Severity [...] acel(Tdap) 2 08/02/17 Given 1Result Comment: [02/15/2018] [id number] 2Result Comment: [08/02/2017] [facility] 54833-943-95 Medications amLODIPine 5 mg oral tablet 2.5 [...] 09/14/20 12:44:00 EDT, Route to Pharmacy Electronically, [facility] #[id number], 180, cm, 09/07/20 10:33:00 EDT, Height Start Date: 09/14/20 Status: Ordered Flonase 50 mcg/inh nasal spray 1 sprays = 50 mcg, Nares, Both, 2 times a day, # 16 Gm, 5 Refills, Maintenance, 09/29/20 16:49:00 EDT, Nasal [place], [facility] #[id number], Partial fill upon patient request if the [...] 09/13/20 6:59:00 EDT, Route to Pharmacy Electronically, [facility] #[id number], Partial fill upon patient request if the [...] tablet, 0 Refills, Maintenance, 09/14/20 12:44:00 EDT, [facility] #[id number], 180, cm, 09/07/20 10:33:00 EDT, Height Start [...] Maintenance, 217:58:00 EDT, Route to Pharmacy Electronically, [facility] #[id number], Partial fill upon patient request if the [...]
--- OUTSIDE RECORDS SUMMARY | 2023-12-30 13:00 | XMS_ITS | Continuity of Care Document ---
Author Organization [facility] Address [address] [address]- Care Team Providers Care Iuss Analyst Name Role Phone Maria Esther URIAS, Balaji Quick Primary Care Physician Encounter [facility] Date(s): 12/15/20 - 01/14/21 [facility] [address] [address]- Attending Physician: Admtr, Ar8 Admitting Physician: Admtr, [...] acel(Tdap) 2 08/02/17 Given 1Result Comment: [02/15/2018] [id number] 2Result Comment: [08/02/2017] [facility] 19660-848-09 Medications amLODIPine 5 mg oral tablet 2.5 [...] 09/14/20 12:44:00 EDT, Route to Pharmacy Electronically, [facility] #[id number], 180, cm, 09/07/20 10:33:00 EDT, Height Start Date: 09/14/20 Status: Ordered Flonase 50 mcg/inh nasal spray 1 sprays = 50 mcg, Nares, Both, 2 times a day, # 16 Gm, 5 Refills, Maintenance, 09/29/20 16:49:00 EDT, Nasal [place], [facility] #[id number], Partial fill upon patient request if the [...] 09/13/20 6:59:00 EDT, Route to Pharmacy Electronically, [facility] #[id number], Partial fill upon patient request if the [...] tablet, 0 Refills, Maintenance, 09/14/20 12:44:00 EDT, [facility] #57255, 180, cm, 09/07/20 10:33:00 EDT, Height Start [...] Maintenance, :58:00 EDT, [id number], Partial fill upon patient request if the [...] Type Response Smoking Status Current some day [facility] kayla entered on: 02/15/18 Sex
--- OUTSIDE RECORDS SUMMARY | 2023-12-30 13:00 | XMS_ITS | Continuity of Care Document ---
Author Organization [facility] Address [address] [place] [address]- Care Team Providers Care Admission Nurse Coordinator Name Role Phone Maria Esther URIAS, Balaji Quick Primary Care Physician [place] [facility] [place] 12/06/19 [facility] [address] [place] [address] [facility] Attending Physician: AdmBertha brown Admitting Physician: AdmtrBertha Referring Physician: Admtr ArCharles Allergies, Adverse Reactions, Alerts Substance Reaction Severity Status Claritin Active Clozaril Active Benadryl Active Vistaril Active Nuts Active Abilify Active Nicotine Patch Active Immunizations Given and Recorded Vaccine Date Status Refusal Reason influenza virus vaccine, inactivated 01/29/19 Give n influenza virus vaccine, inactivated 1 02/15/18 Gi juan tetanus/diphtheria/pertussis, acel(Tdap) 2 08/02/17 Given 1Result Comment: [02/15/2018] [id number] 2Result Comment: [08/02/2017] [facility] 52008-284-39 Medications amLODIPine 5 mg oral tablet 5 mg, 1, tablet, By Mouth, Daily, # 90 tablet, Refills 3, Tot. Refills 3, Maintenance, 11/26/19 16:38:00 EDT, Route to Pharmacy Electronically, [facility]/pharmacy #[id number], 180, cm, 06/26/19 8:31:00 EST, Height Start Date: 11/26/19 Status: Ordered Aspirin Tablet 81 mg, By Mouth, Daily, Maintenance, 04/15/13 17:02:08 Start Date: 04/15/13 Status: Ordered atorvastatin 80 mg oral tablet 1 tablet = 80 mg, By Mouth, Daily in AM, # 90 tablet, 1 Refills, Maintenance, 11/19/19 15:39:00 EDT, Tablet, [facility]/pharmacy #2070, 180, cm, 06/26/19 8:31:00 EST, [...] TAKE 1 TABLET BY MOUTH EVERY DAY, [facility]/pharmacy #207 Start Date: 03/14/19 Status: Ordered cyclobenzaprine 5 mg oral tablet 1 tablet = 5 mg, By Mouth, 2 times a day, PRN as needed for muscle spasm, # 60 tablet, 2 Refills, Maintenance, 04/07/19 18:48:10 EST, Tablet, [facility]/pharmacy #2070, 180, cm, 01/29/19 9:22:52 [...] 10/24/19 18:11:00 EDT, Route to Pharmacy Electronically, [facility]/pharmacy #[id number], 180, cm, 06/26/19 8:31:00 EST, Height Start Date: 10/24/19 Status: Ordered Flomax 0.4 mg oral capsule 0.4 mg, 1, capsule, By Mouth, Daily, # 30 capsule, Refills 11, Tot. Refills 11, Maintenance, 04/20/18 9:51:29 EST, Route to Pharmacy Electronically, [id number], [facility]/pharmacy#2071 Start Date: 04/20/18 Status: Ordered Flonase 50 mcg/inh nasal spray 2 sprays, Nares, Both, 2 times a day, # 16 Gm, 0 Refills, Maintenance, 11/16/18 10:23:39 EDT, [place] Start Date: 11/16/18 Status: Ordered isosorbide mononitrate 30 mg oral tablet, extended release 30 mg, 1, tablet, By Mouth, Daily in AM, # 90 tablet, Refills 1, Tot. Refills 1, Maintenance, 04/25/19 15:31:00 EST, Route to Pharmacy Electronically, [facility]/pharmacy #[id number], 180, cm, 01/29/19 9:22:00 [...] 30 patch,5 Refills, Maintenance, 06/26/19 9:19:00 EST, [facility]/pharmacy #207, Apply to affected area Topically Daily; remove patches after 12 hours, 180, cm, 03/0... Start Date: 06/26/19 Status: Ordered metoprolol 25 mg oral tablet 25 mg, 1, tablet, By Mouth, 2 times a day, # 60 tablet, Refills 5, Tot. Refills 5, Maintenance, 09/18/19 16:23:00 EDT, Route to Pharmacy Electronically, [facility]/pharmacy #207, 180, cm, 06/26/19 8:31:00 EST, [...]
--- OUTSIDE RECORDS SUMMARY | 2023-12-30 13:00 | XMS_ITS | Continuity of Care Document ---
Author Organization [facility] ter Address [address] [place] [address]- Care Team Providers Care Formal Service Waiter Name Role Phone Maria Esther URIAS, Balaji Quick Primary Care Physician Encounter [facility] [place] Date(s): 08/18/20 - 08/18/[address] [address]- Encounter Diagnosis Chest pain(Final) - 08/18/20 Discharge Disposition: A-D/C Home Attending Physician: Yolanda Kerr MD Admitting Physician: Caitlyn Garcia MD Referring Physician: Not on Staff, Referring [...] acel(Tdap) 2 08/02/17 Given 1Result Comment: [02/15/2018] 95113-733-83 2Result Comment: [08/02/2017] [facility] 86992-611-16 Medications amLODIPine 5 mg oral tablet 1 [...] tablet, 0 Refills, Acute, 08/12/20 15:35:00 EDT, [facility] #[id number], 180, cm, 07/02/20 8:37:00 EST, Height Start [...] opioid drug. Start Date: 08/18/20 Status: Ordered Labetalol Inj 10 mg, Injection, IV Push Slowly, Every 20 minutes, PRN for Blood Pressure, FOR SBP>160, Routine, 08/18/20 3:12:00 EDT Start Date: 08/18/20 Stop Date: 08/18/20 Status: Discontinued lamotrigine 100 mg oral tablet 100 mg, [...] 08/13/20 16:12:00 EDT, Route to Pharmacy Electronically, [facility], 180, cm, 07/02/20 8:37:00EST, Height Start Date: 08/13/20 Status: Ordered metoprolol 25 mg oral tablet 25 mg, Tablet, By Mouth, 08/18/20 9:00:00 EDT Start Date: 08/18/20 Stop Date: 08/18/20 Status: Completed Metoprolol Tartrate 25 mg oral tablet 1 [...] Hyperglycemia(Confirmed) Active Hyperlipidemia(Confirmed) Active HTN (hypertension)(Confirmed) Active 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 No nausea, no vomiting. Took homenitro without relief.; Reason: Shortness of Breath; Clinical Question(s): Other: COMPARISON: 07/07/2016 FINDINGS: LINES AND TUBES: None. LUNGS AND PLEURA: Clear lungs. Normal pulmonary vascularity. No pleural effusion. No pneumothorax. HEART, MEDIASTINUM AND CHRIS: Heart is normal in size. Normal upper mediastinal and hilar contour. BONES AND SOFT TISSUES: No acute abnormality. IMPRESSION: No acute abnormality. WSN: [id number] Ordering Physician: Massimo Hylton Dictated By: Anthony Hall MD Dictated Date/Time: 08/17/20 7:22 pm Reviewed By: Anthony Hall MD Signed By: Anthony Hall MD Signed Date/Time: 08/17/20 7:22 pm Transcribed By: JOESPH Transcribed Date/Time: 08/17/20 7:22 pm Vital Signs Most recent to oldest [Reference Range]: 1 2 3 Oxygen Saturation [94-100 %] 99 % (08/18/20 8:35 AM) 99 % (08/18/20 8:20 AM) 95 % (08/18/20 7:00 AM) Pulse Rate [55-90 bpm] 64 bpm (08/18/20 8:35 AM) 64 bpm (08/18/20 8:20 AM) 64 bpm (08/18/20 8:18 AM) Blood Pressure [90-138/55-84 mm Hg] 120/83mm Hg (08/18/20 8:35 AM) 182/87mm Hg *H* (08/18/20 8:20 AM) 182/87mm Hg *H* (08/18/20 8:18 AM) Respiratory Rate [16-30 br/min] 18 br/min (08/18/20 8:35 AM) 18 br/min (08/18/20 8:20 AM) 18 br/min (08/18/20 7:00 AM) Temperature [96.8-100.4 DegF] 98.4 DegF (08/17/20 10:22 PM) 98.3 DegF (08/17/20 8:12 PM) 98.3 DegF (08/17/20 6:37 PM) Mode of Delivery (Oxygen) Room air (08/18/20 8:35 AM) Room air (08/18/20 8:20 AM) Room air (08/18/20 7:00 AM) Temperature Route Oral (08/17/20 10:22 PM) Oral (08/17/20 8:12 PM) Oral (08/17/20 6:37 PM) Social History Social History Type Response Smoking Status Current some day smo ker entered on: 02/15/18 Sex
--- OUTSIDE RECORDS SUMMARY | 2023-12-30 13:00 | XMS_ITS | Continuity of Care Document ---
Author Organization [facility] Kunal Aldair lt Address [address] [place] [address]- Care Team Providers Care Labeling Associate Name Role Phone Balaji Mayo MD Primary Care Physician [phone] Encounter [facility] [place] Date(s): 07/02/20 - 07/09/[address] [facility] Adult [address] [place] [address]- Attending Physician: Balaji Mayo MD Allergies, Adverse [...] acel(Tdap) 2 08/02/17 Given 1Result Comment: [02/15/2018] 83306-264-92 2Result Comment: [08/02/2017] [facility] [id number] Medications amLODIPine 5 mg oral tablet 5 mg, 1, tablet, By Mouth, Daily, REFAX TO [facility] PER [facility] MAYO, # 90 tablet, Refills 3, Tot.Refills 3, Maintenance, 01/16/20 15:03:00 EDT, Route to Pharmacy Electronically, [facility] #[id number], 180, cm, 12/03/19 13:50:00 EDT, Height Start Date: 01/16/20 Status: Ordered Aspirin Tablet 81 mg, By Mouth, Daily, Maintenance, 04/15/13 17:02:08 Start Date: 04/15/13 Status: Ordered atorvastatin 80 mg oral tablet 1 tablet = 80 mg, By Mouth, Daily in AM, [facility], # 90 tablet, 1 Refills, Maintenance, 01/16/20 15:04:00 EDT, Tablet, [facility] #[id number], 180, cm, 12/03/19 13:50:00 EDT, Height, Dry Weight Start Date: 01/16/20 Status: Ordered buPROPion 150 mg/12 hours (SR) oral tablet, extended release 1 tablet = 150 mg, By Mouth, 2 times a day Start Date: 07/07/16 Status: Ordered clopidogrel 75 mg oral tablet 75 mg, 1, tablet, By Mouth, Daily, [facility], # 90 tablet, Refills 1, Tot. Refills 1, Soft Stop, 01/16/20 15:09:00 EDT, Route to Pharmacy Electronically, [facility] #[id number], 180, cm, 12/03/19 13:50:00 EDT, Height Start Date: 01/16/20 Status: Ordered cyclobenzaprine 5 mg oral tablet 1 tablet, By Mouth, 2 times a day, PRN NEEDED FOR MUSCLE SPASM, # 60 tablet, 0 Refills, Acute, 06/11/20 15:48:00 EST, [facility] #[id number], 180, cm, 03/04/20 8:59:00 EST, Height Start Date: 06/11/20 Status: Ordered Ditropan XL 5 mg/24 hours oral tablet, extended release 1 tablet = 5 mg, By Mouth, Daily, # 30 tablet, 0 Refills, Maintenance, 12/16/14 12:57:43 EDT Start Date: 12/16/14 Status: Ordered famotidine 20 mg oral tablet 20 mg, 1, tablet, By Mouth, 2 times a day, replaces ranitidine [facility],# 180 tablet, Refills 1, Tot. Refills 1, Maintenance, 01/16/20 15:06:00 EDT, Route to Pharmacy Electronically, [facility] #[id number], 180, cm, 0... Start Date: 01/16/20 Status: Ordered Flomax 0.4 mg oral capsule 0.4 mg, 1, capsule, By Mouth, Daily, REFAX TO [facility] PER DR MAYO, # 90 capsule, Refills 1, Tot. Refills 1, Maintenance, 01/16/20 15:08:00 EDT, Route to Pharmacy Electronically, [facility] #[id number], 180, cm, 12/03/19 13:50:00 EDT, Height Start Date: 01/16/20 Status: Ordered isosorbide mononitrate 30 mg oral tablet, extended release 1 tablet, By Mouth, Daily in AM, REFAX TO [facility] PER DR MAYO, # 90 tablet, 1 Refills, Maintenance, 01/16/20 15:07:00 EDT, [facility] #[id number], 180, cm, 12/03/19 13:50:00 EDT, Height Start Date: 01/16/20 Status: Ordered Lamictal 100 mg oral tablet 1 tablet = 100 mg, By Mouth, 2 times a day, 0 Refills, Maintenance, 12/16/14 12:57:08 Start Date: 12/16/14 Status: Ordered Lidoderm 5% film See Instructions, Apply to affected area Topically Daily remove patches after 12 hours REFAX TO [facility] PER DR MAYO, # 30 patch, 5 Refills, Maintenance, 01/16/20 15:07:00 EDT, [facility] #[id number], Apply to affected area Topically Thomas... Start Date: 01/16/20 Status: Ordered metoprolol 25 mg oral tablet 25 mg, 1, tablet, By Mouth, 2 times a day, REFAX TO [facility] PER DR MAYO, # 180 tablet, Refills 1, Tot. Refills 1, Maintenance, 01/16/20 15:08:00 EDT, Route to Pharmacy Electronically, [facility] #[id number], 180, cm, 12/03/19 13:50:00 EDT,... Start Date: 01/16/20 Status: Ordered nitroglycerin 0.4 mg sublingual tablet 1 tablet = 0.4 mg, Sublingual, Every 5 minutes, PRN for chest pain, # 100 tablet, 0 Refills, Maintenance, 04/10/20 15:29:00 EST, Tablet, [facility] #[id number], Partial fill upon patient requestif the prescription is for a schedule II opioid lisa... Start Date: 04/10/20 Status: Ordered oxybutynin 5 mg/24 hours oral tablet, extended release 1 tablet = 5 mg, By Mouth, Daily at bedtime, # 30 tablet, 3 Refills, Maintenance, 02/13/20 23:02:00EDT, ER Tablet, [facility] #[id number], 180, cm, 12/03/19 13:50:00 EDT, Height Start [...] oldest [Reference Range]: 1 Height 180 cm (07/02/20 8:37 AM) Social History Social History Type Response Smoking Status Current some day smo ker entered on: 02/15/18 Sex
--- OUTSIDE RECORDS SUMMARY | 2023-12-30 13:00 | XMS_ITS | Continuity of Care Document ---
Author Organization [facility] Address [address] [place] [address]- Care Team Providers Care Adobe Block Maker Name Role Phone Balaji Mayo MD Primary Care Physician Encounter [facility] [place] Date(s): 08/06/19 - 12/21/19 [facility] Adult [address] [place] [address]- [facility] Attending Physician: Balaji Mayo MD Allergies, Adverse Reactions, Alerts Substance Reaction Severity Status Claritin Active Clozaril Active Benadryl Active Vistaril Active Nuts Active Abilify Active Nicotine Patch Active Immunizations Given and Recorded Vaccine Date Status Refusal Reason influenza virus vaccine, inactivated 01/29/19 Give n influenza virus vaccine, inactivated 1 02/15/18 Gi juan tetanus/diphtheria/pertussis, acel(Tdap) 2 08/02/17 Given 1Result Comment: [02/15/2018] 62181-820-13 2Result Comment: [08/02/2017] [facility] 68335-761-47 Medications amLODIPine 5 mg oral tablet 5 mg, 1, tablet, By Mouth, Daily, # 90 tablet, Refills 3, Tot. Refills 3, Maintenance, 11/26/19 16:38:00 EDT, Route to Pharmacy Electronically, [facility]/pharmacy #[id number], 180, cm, 06/26/19 8:31:00 EST, Height Start Date: 11/26/19 Status: Ordered Aspirin Tablet 81 mg, By Mouth, Daily, Maintenance, 04/15/13 17:02:08 Start Date: 04/15/13 Status: Ordered atorvastatin 80 mg oral tablet 1 tablet = 80 mg, By Mouth, Daily in AM, # 90 tablet, 1 Refills, Maintenance, 11/19/19 15:39:00 EDT, Tablet, [facility]/pharmacy #[id number], 180, cm, 06/26/19 8:31:00 EST, [...] 1 TABLET BY MOUTH EVERY DAY, [facility]/pharmacy #[id number] Start Date: 03/14/19 Status: Ordered cyclobenzaprine 5 mg oral tablet 1 tablet = 5 mg, By Mouth, 2 times a day, PRN as needed for muscle spasm, # 60 tablet, 2 Refills, Maintenance, 04/07/19 18:48:10 EST, Tablet, [facility]/pharmacy #[id number], 180, cm, 01/29/19 9:22:52 EDT, [...] 18:11:00 EDT, Route to Pharmacy Electronically, [facility]/pharmacy #[id number], 180, cm, 06/26/19 8:31:00 EST, Height Start Date: 10/24/19 Status: Ordered Flomax 0.4 mg oral capsule 0.4 mg, 1, capsule, By Mouth, Daily, # 30 capsule, Refills 11, Tot. Refills 11, Maintenance, 04/20/18 9:51:29 EST, Route to Pharmacy Electronically, [id number], [facility]/pharmacy#[id number] Start Date: 04/20/18 Status: Ordered Flonase 50 mcg/inh nasal spray 2 sprays, Nares, Both, 2 times a day, # 16 Gm, 0 Refills, Maintenance, 11/16/18 10:23:39 EDT, [place] Start Date: 11/16/18 Status: Ordered isosorbide mononitrate 30 mg oral tablet, extended release 30 mg, 1, tablet, By Mouth, Daily in AM, # 90 tablet, Refills 1, Tot. Refills 1, Maintenance, 04/25/19 15:31:00 EST, Route to Pharmacy Electronically, [facility]/pharmacy #[id number], 180, cm, 01/29/19 9:22:00 EDT, [...] patch,5 Refills, Maintenance, 06/26/19 9:19:00 EST, [facility]/pharmacy #[id number], Apply to affected area Topically Daily; remove patches after 12 hours, 180, cm, 03/0... Start Date: 06/26/19 Status: Ordered metoprolol 25 mg oral tablet 25 mg, 1, tablet, By Mouth, 2 times a day, # 60 tablet, Refills 5, Tot. Refills 5, Maintenance, 09/18/19 16:23:00 EDT, Route to Pharmacy Electronically, [facility]/pharmacy #[id number], 180, cm, 06/26/19 8:31:00 EST, [...] Type Response Smoking Status Current some day [facility] entered on: 02/15/18 Sex
--- OUTSIDE RECORDS SUMMARY | 2023-12-30 13:00 | XMS_ITS | Continuity of Care Document ---
Author Organization [facility] Aldair lt Address [address] [place] [address]- Care Team Providers Care Downstairs Maid Name Role Phone Balaji Mayo MD Primary Care Physician [phone] Encounter [facility] [place] Date(s): 11/11/21 - 12/15/21 [facility] Adult [address] [place] [address]- Attending Physician: Balaji Mayo MD Allergies, Adverse [...] 23-valent vaccine 12/17/12 Recorded 1Result Comment: [02/15/2018] 15716-765-66 2Result Comment: [08/02/2017] [facility] 46656-773-77 Medications aspirin 81 mg oral delayed release tablet = 81 mg, By Mouth, Daily, # 90 tablet, 3 Refills, Maintenance, 10/05/21 17:34:00 EDT, EC Tablet, [facility] #[id number], Partial fill upon patient request if the prescription is for a schedule II opioid drug., 182, cm, 09/10/21 8:13:00 EDT, Heigh... Start Date: 10/05/21 Status: Ordered atorvastatin 80 mg oral tablet 1 tablet = 80 mg, By Mouth, Daily, # 90 tablet, 3 Refills, Maintenance, 10/05/21 17:34:00 EDT, Tablet, [facility] #[id number], Partial fill upon patient request if the prescription is for a schedule II opioid drug., 182, cm, 09/10/21 8:13:00 EDT,... Start Date: 10/05/21 Status: Ordered BuPROPion (Eqv-Wellbutrin SR) 150 mg/12 hours oral tablet, extended release 1 tablet = 150 mg, By Mouth, 2 times a day, # 180 tablet, 3 Refills, Maintenance, 10/05/21 17:37:00EDT, SR Tablet, [facility] #[id number], Partial fill upon patient request if the prescription is for a schedule II opioid drug., 182, cm, 09/10/21... Start Date: 10/05/21 Status: Ordered clopidogrel 75 mg oral tablet 1, tablet, By Mouth, Daily, # 90 tablet, Refills 3, Tot. Refills 3, Maintenance, 10/05/21 17:34:00 EDT, Route to Pharmacy Electronically, [facility] #[id number], 182, cm, 09/10/21 8:13:00 EDT, Height, 102.7, [...] 5 Refills, Maintenance, 09/29/20 16:49:00 EDT, Nasal [place], [facility] #[id number], Partial fill upon patient request if the prescription is for a schedule II opioid drug., 1 sprays Nares, B... Start Date: 09/29/20 Status: Ordered FLUoxetine 40 mg oral capsule 1 capsule = 40 mg, By Mouth, Daily, # 90 capsule, 3 Refills, Maintenance, 10/05/21 17:34:00 EDT, Capsule, [facility] #[id number], Partial fill upon patient request if the [...] 90 tablet, 3 Refills, 10/05/21 17:35:00 EDT, [facility] #[id number], 182, cm, 09/10/21 8:13:00 EDT, Height, 102.7, [...] 10/06/21 14:57:00 EDT, Route to Pharmacy Electronically, [facility] #[id number], Partial fill upon patient request if the prescription is for a sche... Start Date: 10/06/21 Stop Date: 10/01/22 Status: Ordered lidocaine 5% topical film 1 patch, Topically, Daily, PRN Pain , Mild, remove after 12 hours, # 30 patch, 11 Refills, Maintenance, 02/20/21 7:32:00 EDT, Patch, [facility], Partial fill upon patient request if the prescription is for a schedule II opioid drug., 1 patch T... Start Date: 02/20/21 Status: Ordered metoprolol 25 mg oral tablet 12.5 mg, 0.5, tablet, By Mouth, 2 times a day, # 90 tablet, Refills 3, Tot. Refills 3, Maintenance,10/05/21 17:40:00 EDT, Route to Pharmacy Electronically, [facility] #[id number], Partial fill upon patient request if the prescription is for a sc... Start Date: 10/05/21 Status: Ordered QUEtiapine 400 mg oral tablet, extended release 400 mg, 1, tablet, By Mouth, Daily in PM, # 90 tablet, Refills 1, Tot. Refills 1, Maintenance, 10/05/21 17:36:00 EDT, Route to Pharmacy Electronically, [facility] #[id number], Partial fill upon patient request if the prescription is for a schedul... Start Date: 10/05/21 Status: Ordered PENITENTIARY VISIT FREQUENCY PENITENTIARY VISIT FREQUENCY, See Instructions, # 1 each, Refills 0, Tot. Refills 0, Maintenance, PLEASE INCREASE PENITENTIARY VISITS TO TWICE A DAY FOR MEDICATION MANAGEMENT AND ADMINISTRATION., 10/06/21 15:08:00 EDT, Supply Start Date: 10/06/21 Status: Ordered traZODone 100 mg oral tablet 200 mg, 2, tablet, By Mouth, Daily at bedtime, # 180 tablet, Refills 3, Tot. Refills 3, Maintenance, 10/05/21 17:36:00 EDT, Route to Pharmacy Electronically, [facility] #[id number], Partial fillupon patient request if the prescription [...]
--- OUTSIDE RECORDS SUMMARY | 2023-12-30 13:00 | XMS_ITS | Continuity of Care Document ---
Author Organization [facility] Address [address] [place] [address]- Care Team Providers Care Pest Control Service Technician Name Role Phone Maria Esther URIAS, Balaji Quick Primary Care Physician En[place] [facility] [place] [facility] [place] [id number] Date(s): 11/24/21 - 12/01/21 [facility] [address] [place], [place] [address] Attending Physician: Daniel Wright MD Admitting Physician: Adriana URIAS, Daniel Cruz Allergies, Adverse Reactions, Alerts Substance Reaction Severity [...] 23-valent vaccine 12/17/12 Recorded 1Result Comment: [02/15/2018] 62774-698-82 2Result Comment: [08/02/2017] [facility] [id number] Medications aspirin 81 mg oral delayed release tablet = 81 mg, By Mouth, Daily, # 90 tablet, 3 Refills, Maintenance, 10/05/21 17:34:00 EDT, EC Tablet, [facility] #[id number], Partial fill upon patient request if the prescription is for a schedule II opioid drug., 182, cm, 09/10/21 8:13:00 EDT, Heigh... Start Date: 10/05/21 Status: Ordered atorvastatin 80 mg oral tablet 1 tablet = 80 mg, By Mouth, Daily, # 90 tablet, 3 Refills, Maintenance, 10/05/21 17:34:00 EDT, Tablet, [facility] #[id number], Partial fill upon patient request if the prescription is for a schedule II opioid drug., 182, cm, 09/10/21 8:13:00 EDT,... Start Date: 10/05/21 Status: Ordered BuPROPion (Eqv-Wellbutrin SR) 150 mg/12 hours oral tablet, extended release 1 tablet = 150 mg, By Mouth, 2 times a day, # 180 tablet, 3 Refills, Maintenance, 10/05/21 17:37:00EDT, SR Tablet, [facility] #[id number], Partial fill upon patient request if the prescription is for a schedule II opioid drug., 182, cm, 09/10/21... Start Date: 10/05/21 Status: Ordered clopidogrel 75 mg oral tablet 1, tablet, By Mouth, Daily, # 90 tablet, Refills 3, Tot. Refills 3, Maintenance, 10/05/21 17:34:00 EDT, Route to Pharmacy Electronically, [facility] #[id number], 182, cm, 09/10/21 8:13:00 EDT, Height, 102.7, [...] 5 Refills, Maintenance, 09/29/20 16:49:00 EDT, Nasal [place], [facility] #[id number], Partial fill upon patient request if the prescription is for a schedule II opioid drug., 1 sprays Nares, B... Start Date: 09/29/20 Status: Ordered FLUoxetine 40 mg oral capsule 1 capsule = 40 mg, By Mouth, Daily, # 90 capsule, 3 Refills, Maintenance, 10/05/21 17:34:00 EDT, Capsule, [facility] #[id number], Partial fill upon patient request if the [...] 90 tablet, 3 Refills, 10/05/21 17:35:00 EDT, [facility] #[id number], 182, cm, 09/10/21 8:13:00 EDT, Height, 102.7, [...] 10/06/21 14:57:00 EDT, Route to Pharmacy Electronically, [facility] #[id number], Partial fill upon patient request if the prescription is for a sche... Start Date: 10/06/21 Stop Date: 10/01/22 Status: Ordered lidocaine 5% topical film 1 patch, Topically, Daily, PRN Pain , Mild, remove after 12 hours, # 30 patch, 11 Refills, Maintenance, 02/20/21 7:32:00 EDT, Patch, [facility], Partial fill upon patient request if the prescription is for a schedule II opioid drug., 1 patch T... Start Date: 02/20/21 Status: Ordered metoprolol 25 mg oral tablet 12.5 mg, 0.5, tablet, By Mouth, 2 times a day, # 90 tablet, Refills 3, Tot. Refills 3, Maintenance,10/05/21 17:40:00 EDT, Route to Pharmacy Electronically, [facility] #[id number], Partial fill upon patient request if the prescription is for a sc... Start Date: 10/05/21 Status: Ordered QUEtiapine 400 mg oral tablet, extended release 400 mg, 1, tablet, By Mouth, Daily in PM, # 90 tablet, Refills 1, Tot. Refills 1, Maintenance, 10/05/21 17:36:00 EDT, Route to Pharmacy Electronically, [facility] #[id number], Partial fill upon patient request if the [...] 10/05/21 17:36:00 EDT, Route to Pharmacy Electronically, [facility] #[id number], Partial fillupon patient request if the prescription [...] oldest [Reference Range]: 1 Height 182 cm (11/24/21 1:30 PM) Weight 102.27 kg (11/24/21 1:30 PM) Oxygen Saturation [94-100 %] 98 % (11/24/21 1:30 PM) Pulse Rate [55-90 bpm] 69 bpm (11/24/21 1:30 PM) Body Mass Index [18.5-24.99] 30.87 *>HHI* (11/24/21 1:30 PM) Blood Pressure [90-138/55-84 mm Hg] 118/ 74mm Hg (11/24/21 1:30 PM) Mode of Delivery (Oxygen) Room air (11/24/21 1:30 PM) Blood pressure sites Arm, right (11/24/21 1:30 PM) Weight Obtained Via Patient/family state d (11/24/21 1:30 PM) Social History Social History Type Response Smoking Status Current some day [facility] entered on: 02/15/18 Sex
--- OUTSIDE RECORDS SUMMARY | 2023-12-30 13:00 | XMS_ITS | Continuity of Care Document ---
Author Organization [facility] Kunal Aldair lt Address [address] [place] [address]- Care Team Providers Care Well Puller Head Name Role Phone Maria Esther URIAS, Balaji Quick Primary Care Physician [facility] Date(s): 03/14[facility]23 - 04/13/23 [facility] Adult [address] [place] [address]- Allergies, Adverse Reactions, Alerts Substance Reaction Severity [...] 23-valent vaccine 12/17/12 Recorded 1Result Comment: [02/15/2018] 42985-829-36 2Result Comment: [id number] 3Result Comment: [08/02/2017] [facility] 84417-841-44 Medications Aspirin Low Dose 81 mg oral delayed release tablet 1 tablet, By Mouth, Daily, # 90 tablet, 3 Refills, Maintenance, 11/08/22 11:19:00 EDT, [facility] #[id number], 184, cm, 11/03/22 11:28:00 EDT, Height, 106.3, kg, 09/13/22 12:30:00 EDT, Dry Weight Start Date: 11/08/22 Status: Ordered atorvastatin 80 mg oral tablet 1 tablet = 80 mg, By Mouth, Daily, # 90 tablet, 3 Refills, Maintenance, 12/05/22 4:30:00 EDT, Tablet, [facility] #[id number], Partial fill upon patient request if the prescription is for a schedule II opioid drug., 183, cm, 11/10/22 17:28:00 EDT,... Start Date: 12/05/22 Status: Ordered BuPROPion (Eqv-Wellbutrin SR) 150 mg/12 hours oral tablet, extended release 1 tablet = 150 mg, By Mouth, 2 times a day, # 180 tablet, 3 Refills, Maintenance, 10/05/21 17:37:00EDT, SR Tablet, [facility] #[id number], Partial fill upon patient request if the prescription is for a schedule II opioid drug., 182, cm, 09/10/21... Start Date: 10/05/21 Status: Ordered clopidogrel 75 mg oral tablet 1, tablet, By Mouth, Daily, # 90 tablet, Refills 3, Maintenance, 01/13/23 16:50:00 EDT, Route to Pharmacy Electronically, [facility] #[id number], 183, cm, 12/05/22 16:08:00 EDT, Height, 106.3, kg, 09/13/22 12:30:00 EDT, Dry Weight Start Date: 01/13/23 Status: Ordered Flonase 50 mcg/inh nasal spray 1 sprays = 50 mcg, Nares, Both, 2 times a day, # 16 Gm, 5 Refills, Maintenance, 09/15/22 8:26:00 EDT, Nasal [place], [facility] #[id number], Partial fill upon patient request if the prescription is for a schedule II opioid drug., 1 sprays Nares, [place]... Start Date: 09/15/22 Status: Ordered FLUoxetine 40 mg oral capsule 1 capsule = 40 mg, By Mouth, Daily, # 90 capsule, 3 Refills, Maintenance, 10/05/21 17:34:00 EDT, Capsule, [facility] #[id number], Partial fill upon patient request if the [...] 11 Refills, Maintenance, 11/30/22 6:36:00 EDT, Tablet, [facility] #[id number], Partial fill upon patient requestif the prescription [...] capsule, 1 Refills, Maintenance, 09/28/22 9:21:00 EDT, [facility] #[id number], Partial fill upon patient request if the [...] 10/05/21 17:36:00 EDT, Route to Pharmacy Electronically, [facility] #[id number], Partial fillupon patient request if the prescription [...] Team Personnel Name: Wild Woods RN Position: [facility] ED RN W/OE and Tasks Member Role: Primary Care Nurse Name: Esme Garcia RN Position: [facility] RN Member Role: Primary Care Nurse Name: Erich Dias RN Position: [facility] RN Member Role: Primary Care Nurse Name: Camila Vazquez RN Position: [facility] RN Member Role: Primary Care Nurse Name: Taylor Beck RN Position: [facility] RN Member Role: Primary Care Nurse Name: Amanda Garibay RN Position: [facility] RN Member Role: Primary Care Nurse Name: Mary Roberson RN Position: [facility] RN Member Role: Primary Care Nurse Name: Tomas Stauffer RN Position: [facility] RN Member Role: Primary Care Nurse Name: Balaji Mayo MD Position: [facility] Physician - Primary Care Member Role: PCP Address: Address: [address] [place] [address] [place] [address]- [place] Care Team Related Persons Name: YAKOV ROSANA Address: home [address] [place] [address] Name: GORAN QUINTERO
--- OUTSIDE RECORDS SUMMARY | 2023-12-30 13:01 | XMS_ITS | Continuity of Care Document ---
Author Organization [facility] Rico Syed Aldair lt Address [address] [place] [address]- Care Team Providers Care Category Development Analyst Name Role Phone Maria Esther URIAS, Balaji Quick Primary Care Physician [facility] Date[facility]s): 06[facility]22 - 07/21/22 [facility] Rico Syed Adult [address] [place] [address]- Allergies, Adverse Reactions, Alerts Substance Reaction Severity [...] pneumococcal 23-valent vaccine 12/17/12 Recorded 1Result Comment: [id number] 2Result Comment: [02/15/2018] [id number] 3Result Comment: [08/02/2017] [facility] 14291-787-68 Medications aspirin 81 mg oral delayed release tablet = 81 mg, By Mouth, Daily, # 90 tablet, 3 Refills, Maintenance, 10/05/21 17:34:00 EDT, EC Tablet, [facility] #[id number], Partial fill upon patient request if the prescription is for a schedule II opioid drug., 182, cm, 09/10/21 8:13:00 EDT, Heigh... Start Date: 10/05/21 Status: Ordered atorvastatin 80 mg oral tablet 1 tablet = 80 mg, By Mouth, Daily, # 90 tablet, 3 Refills, Maintenance, 10/05/21 17:34:00 EDT, Tablet, [facility] #[id number], Partial fill upon patient request if the prescription is for a schedule II opioid drug., 182, cm, 09/10/21 8:13:00 EDT,... Start Date: 10/05/21 Status: Ordered BuPROPion (Eqv-Wellbutrin SR) 150 mg/12 hours oral tablet, extended release 1 tablet = 150 mg, By Mouth, 2 times a day, # 180 tablet, 3 Refills, Maintenance, 10/05/21 17:37:00EDT, SR Tablet, [facility] #[id number], Partial fill upon patient request if the prescription is for a schedule II opioid drug., 182, cm, 09/10/21... Start Date: 10/05/21 Status: Ordered clopidogrel 75 mg oral tablet 1, tablet, By Mouth, Daily, # 90 tablet, Refills 3, Tot. Refills 3, Maintenance, 10/05/21 17:34:00 EDT, Route to Pharmacy Electronically, [facility] #[id number], 182, cm, 09/10/21 8:13:00 EDT, Height, 102.7, kg, 09/08/21 16:41:00 EDT, Dry Weight Start Date: 10/05/21 Status: Ordered Flonase 50 mcg/inh nasal spray 1 sprays = 50 mcg, Nares, Both, 2 times a day, # 16 Gm, 5 Refills, Maintenance, 09/29/20 16:49:00 EDT, Nasal [place], [facility] #[id number], Partial fill upon patient request if the [...] 3 Refills, Maintenance, 10/05/21 17:34:00 EDT, Capsule, [facility] #[id number], Partial fill upon patient request if the prescription is for a schedule II opioid drug., 182, cm, 09/10/21 8:13:00 E... Start Date: 10/05/21 Status: Ordered isosorbide mononitrate 30 mg oral tablet, extended release 1 tablet = 30 mg, By Mouth, Daily in AM, # 90 tablet, 3 Refills, 10/05/21 17:35:00 EDT, [facility] #[id number], 182, cm, 09/10/21 8:13:00 EDT, Height, 102.7, kg, 09/08/21 16:41:00 EDT, Dry Weight Start Date: 10/05/21 Status: Ordered lamotrigine 25 mg oral tablet 100 mg, 4, tablet, By Mouth, 2 times a day, # 720 tablet, Refills 3, Tot. Refills 3, Maintenance, 10/06/21 14:57:00 EDT, Route to Pharmacy Electronically, [facility] #[id number], Partial fill upon patient request if the prescription is for a sche... Start Date: 10/06/21 Stop Date: 10/01/22 Status: Ordered lidocaine 5% topical film 1 patch, Topically, Daily, PRN Pain , Mild, remove after 12 hours, # 30 patch, 11 Refills, Maintenance, 02/20/21 7:32:00 EDT, Patch, [facility], Partial fill upon patient request if the prescription is for a schedule II opioid drug., 1 patch T... Start Date: 02/20/21 Status: Ordered metoprolol 25 mg oral tablet 25 mg, 1, tablet, By Mouth, 2 times a day, increase in dose, # 60 tablet, Refills 2, Tot. Refills 2, Maintenance, 06/06/22 14:13:00 EST, Route to Pharmacy Electronically, [facility] #[id number],Partial fill upon patient request if the prescripti... Start Date: 06/06/22 Status: Ordered mupirocin 2% topical ointment 1 application, Topically, 3 times a day, for 5 days, apply a thin film to affected area, # 15 Gm, 0Refills, Acute 07/24/22 12:01:00 EDT, 07/19/22 12:01:00 EDT, Ointment, [facility] #[id number],Partial fill upon patient request if the prescripti... [...] 10/05/21 17:36:00 EDT, Route to Pharmacy Electronically, [facility] #[id number], Partial fillupon patient request if the prescription [...] Team Personnel Name: Wild Woods RN Position: [facility] ED RN W/OE and Tasks Member Role: Primary Care Nurse Name: Camila Vazquez RN Position: [facility] RN Member Role: Primary Care Nurse Name: Amanda Garibay RN Position: [facility] RN Member Role: Primary Care Nurse Name: Mary Roberson RN Position: [facility] RN Member Role: Primary Care Nurse Name: Tomas Stauffer RN Position: [facility] RN Member Role: Primary Care Nurse Name: Balaji Mayo MD Position: [facility] Primary Care Physician Member Role: PCP Address: Address: [address] [place] [address]- [place] Care Team Related Persons Name: ROSANA NAGY Address: home [address] [place] [address] Name: GORAN QUINTERO
--- OUTSIDE RECORDS SUMMARY | 2023-12-30 13:01 | XMS_ITS | Continuity of Care Document ---
Author Organization [facility] Kunal Aldair lt Address [address] [place] [address]- Care Team Providers Care Healthcare Economics Consultant Name Role Phone Maria Esther URIAS, Balaji Quick Primary Care Physician [phone] Encounter [facility] Date(s): 11/14/22 - 12/14/22 [facility] Adult [address] [place] [address]- Allergies, Adverse Reactions, Alerts Substance Reaction Severity [...] pneumococcal 23-valent vaccine 12/17/12 Recorded 1Result Comment: [id number] 2Result Comment: [02/15/2018] 21222-844-22 3Result Comment: [08/02/2017] [facility] 86229-742-41 Medications amLODIPine 10 mg oral tablet 10 mg, 1, tablet, By Mouth, Daily, # 90 tablet, Refills 3, Tot. Refills 3, Maintenance, 10/26/22 13:35:00 EDT, Route to Pharmacy Electronically, [facility] #[id number], Partial fill upon patientrequest if the prescription is for a schedule II op... Start Date: 10/26/22 Status: Ordered Aspirin Low Dose 81 mg oral delayed release tablet 1 tablet, By Mouth, Daily, # 90 tablet, 3 Refills, Maintenance, 11/08/22 11:19:00 EDT, [facility] #[id number], 184, cm, 11/03/22 11:28:00 EDT, Height, 106.3, kg, 09/13/22 12:30:00 EDT, Dry Weight Start Date: 11/08/22 Status: Ordered atorvastatin 80 mg oral tablet 1 tablet = 80 mg, By Mouth, Daily, # 90 tablet, 3 Refills, Maintenance, 12/05/22 4:30:00 EDT, Tablet, [facility] #[id number], Partial fill upon patient request if the prescription is for a schedule II opioid drug., 183, cm, 11/10/22 17:28:00 EDT,... Start Date: 12/05/22 Status: Ordered BuPROPion (Eqv-Wellbutrin SR) 150 mg/12 hours oral tablet, extended release 1 tablet = 150 mg, By Mouth, 2 times a day, # 180 tablet, 3 Refills, Maintenance, 10/05/21 17:37:00EDT, SR Tablet, [facility] #[id number], Partial fill upon patient request if the prescription is for a schedule II opioid drug., 182, cm, 09/10/21... Start Date: 10/05/21 Status: Ordered clopidogrel 75 mg oral tablet 1, tablet, By Mouth, Daily, # 90 tablet, Refills 0, Maintenance, 10/07/22 6:36:00 EDT, Route to Pharmacy Electronically, [facility] #[id number], 184, cm, 09/28/22 9:02:00 EDT, Height, 106.3, kg,09/13/22 12:30:00 EDT, Dry Weight Start Date: 10/07/22 Status: Ordered Flonase 50 mcg/inh nasal spray 1 sprays = 50 mcg, Nares, Both, 2 times a day, # 16 Gm, 5 Refills, Maintenance, 09/15/22 8:26:00 EDT, Nasal [place], [facility] #[id number], Partial fill upon patient request if the [...] 3 Refills, Maintenance, 10/05/21 17:34:00 EDT, Capsule, [facility] #[id number], Partial fill upon patient request if the prescription is for a schedule II opioid drug., 182, cm, 09/10/21 8:13:00 E... Start Date: 10/05/21 Status: Ordered isosorbide mononitrate 30 mg oral tablet, extended release 1 tablet, By Mouth, Daily in AM, # 90 tablet, 3 Refills, Maintenance, 10/20/22 16:40:00 EDT, [facility] #[id number], 184, cm, 09/28/22 9:02:00 EDT, Height, 106.3, [...] tablet, 5 Refills, Maintenance, 09/18/22 18:55:00 EDT, [facility] #[id number], 184, cm, 09/15/22 9:12:00 EDT, Height, 106.3, kg, 09/13/22 12:30:00 EDT, Dry Weight Start Date: 09/18/22 Status: Ordered Nitrostat 0.4 mg sublingual tablet 1 tablet = 0.4 mg, Sublingual, Every 5 minutes, PRN Chest Pain, prn, # 30 tablet, 11 Refills, Maintenance, 11/30/22 6:36:00 EDT, Tablet, [facility] #[id number], Partial fill upon patient requestif the prescription is for a schedule II opioid lisa... Start Date: 11/30/22 Status: Ordered omeprazole 20 mg oral enteric coated capsule 1 capsule = 20 mg, By Mouth, Daily, # 30 capsule, 1 Refills, Maintenance, 09/28/22 9:21:00 EDT, [facility] #[id number], Partial fill upon patient request if the [...] 10/05/21 17:36:00 EDT, Route to Pharmacy Electronically, [facility] #[id number], Partial fillupon patient request if the prescription [...] Primary Care Member Role: PCP Address: Address: [address] [place] [address]- Name: Fadumo Conti RN Position: [facility] RN Member Role: Primary Care Nurse Care Team Related Persons Name: ROSANA NAGY Address: home [address] [place] [phone] Name: GORAN QUINTERO
--- OUTSIDE RECORDS SUMMARY | 2023-12-30 13:01 | XMS_ITS | Continuity of Care Document ---
Author Organization [facility] ter Address [address] [place] [address]- Care Team Providers Care Briquetting Machine Operator Name Role Phone Maria Esther URIAS, Balaji Quick Primary Care Physician [phone] Encounter [facility] Date(s): 08/25/20 - 09/01/[address] [address] Encounter Diagnosis Chest pain(Final) - 08/24/20 Discharge Disposition: A-Transfer SNF Attending Physician: Cary Ramirez MD Admitting Physician: Marlen Multani DO Referring Physician: Not on Staff, Referring [...] acel(Tdap) 2 08/02/17 Given 1Result Comment: [02/15/2018] 86859-756-25 2Result Comment: [08/02/2017] [facility] 52405-515-93 Medications amLODIPine 5 mg oral tablet 2.5 mg, 0.5, tablet, By Mouth, 2 times a day, Refills 0, Maintenance, 09/01/20 10:53:00 EDT, Partial fill upon patient request if the prescription is for a schedule II opioid drug. Start Date: 09/01/20 Status: Ordered amLODIPine 5 mg oral tablet 2.5 mg, Tablet, By Mouth, 09/01/20 9:00:00 EDT Start Date: 09/01/20 Stop Date: 09/01/20 Status: Completed Aspirin Tablet 81 mg, By Mouth, Daily, [...] 08/13/20 16:12:00 EDT, Route to Pharmacy Electronically, [facility], 180, cm, 07/02/20 8:37:00EST, Height Start Date: 08/13/20 Status: Ordered metoprolol 25 mg oral tablet 25 mg, Tablet, By Mouth, Hold for: SBP <100, 09/01/20 9:00:00 EDT Start Date: 09/01/20 Stop Date: 09/01/20 Status: Completed Metoprolol Tartrate 25 mg oral [...] Exam Date Time Procedure Performing Provider Status 08/24/20 5:16 PM Chest 2 Views Frontal and Lat Millie Banegas; Auth (Verified) Notes: (Chest 2 Views Frontal and Lat) Reason For Exam: Angina RESULT: Chest 2 Views Frontal and Lat Chest 2 Views Frontal and Lat REASON: Angina; Clinical Question(s): CHF / CHF COMPARISON: 08/17/2020 FINDINGS: LINES AND TUBES: None. LUNGS AND PLEURA: Clear lungs. Normal pulmonary vascularity. No pleural effusion. No pneumothorax. HEART, MEDIASTINUM AND CHRIS: Heart is normal in size. Normal mediastinal and hilar contour. BONES AND SOFT TISSUES: No acute abnormality. There are multilevel degenerative changes of the spine. IMPRESSION: No evidence of acute abnormality. WSN: [id number] Ordering Physician: Juan Pederson Dictated By: Anthony Nye MD Dictated Date/Time: 08/24/20 5:18 pm Reviewed By: Anthony Nye MD Signed By: Anthony Nye MD Signed Date/Time: 08/24/20 5:18 pm Transcribed By: JOSEPH Transcribed Date/Time: 08/24/20 5:18 pm Vital Signs Most recent to oldest [Reference Range]: 1 2 3 Weight 109.1 kg (08/25/20 2:18 AM) 109 kg (08/24/20 10:42 PM) Oxygen Saturation [94-100 %] 97 % (09/01/20 11:19 AM) 98 % (09/01/20 8:06 AM) 97 % (08/31/20 11:38 PM) Pulse Rate [55-90 bpm] 56 bpm (09/01/20 11:19 AM) 66 bpm (09/01/20 8:37 AM) 66 bpm (09/01/20 8:06 AM) Blood Pressure [90-138/55-84 mm Hg] 141/79mm Hg *H* (09/01/20 11:19 AM) 142/71mm Hg *H* (09/01/20 8:37 AM) 142/71mm Hg *H* (09/01/20 8:37 AM) Respiratory Rate [16-30 br/min] 18 br/min (09/01/20 11:19 AM) 16 br/min (09/01/20 8:06 AM) 20 br/min (08/31/20 11:38 PM) Temperature [96.8-100.4 DegF] 98.0 DegF (09/01/20 11:19 AM) 97.9 DegF (09/01/20 8:06 AM) 97.5 DegF (08/31/20 11:38 PM) Liters per Minute 0 L/min (08/31/20 4:00 PM) 0 L/min (08/31/20 12:00 PM) 0 L/min (08/31/20 7:00 AM) Mode of Delivery (Oxygen) Room air (09/01/20 11:19 AM) Room air (09/01/20 8:06 AM) Room air (08/31/20 11:38 PM) Blood pressure sites Arm, right (09/01/20 11:19 AM) Arm, right (09/01/20 8:06 AM) Arm, right (08/31/20 11:38 PM) Temperature Route Temporal (09/01/20 11:19 AM) Temporal (09/01/20 8:06 AM) Temporal (08/31/20 11:38 PM) Weight Obtained Via Bed scale (08/25/20 2:18 AM) Bed scale (08/24/20 10:42 PM) Social History Social History Type Response Smoking Status Current some day smo ker entered on: 02/15/18 Sex Male
--- OUTSIDE RECORDS SUMMARY | 2023-12-30 13:01 | XMS_ITS | Continuity of Care Document ---
Author Organization [facility] Rico Syed Aldair lt Address [address] [place] [address]- Care Team Providers Care Log Rafter Name Role Phone Maria Esther URIAS, Balaji Quick Primary Care Physician [phone] Encounter [facility] Date(s): 08/15/23 - 09/14/23 [facility] Rico Syed Adult [address] [place] [address]- Allergies, Adverse Reactions, Alerts Substance Reaction Severity [...] 23-valent vaccine 12/17/12 Recorded 1Result Comment: [02/15/2018] [id number] 2Result Comment: [id number] 3Result Comment: [08/02/2017] [facility] [id number] Medications Aspirin Low Dose 81 mg oral delayed release tablet 1 tablet, By Mouth, Daily, # 90 tablet, 3 Refills, Maintenance, 11/08/22 11:19:00 EDT, [facility] #[id number], 184, cm, 11/03/22 11:28:00 EDT, Height, 106.3, kg, 09/13/22 12:30:00 EDT, Dry Weight Start Date: 11/08/22 Status: Ordered atorvastatin 80 mg oral tablet 1 tablet = 80 mg, By Mouth, Daily, # 90 tablet, 3 Refills, Maintenance, 08/18/23 16:03:00 EDT, Tablet, [facility] #[id number], Partial fill upon patient request if the prescription is for a schedule II opioid drug., 183, cm, 08/09/23 10:49:00 EDT... Start Date: 08/18/23 Status: Ordered BuPROPion (Eqv-Wellbutrin SR) 150 mg/12 hours oral tablet, extended release 1 tablet = 150 mg, By Mouth, 2 times a day, # 180 tablet, 3 Refills, Maintenance, 10/05/21 17:37:00EDT, SR Tablet, [facility] #[id number], Partial fill upon patient request if the prescription is for a schedule II opioid drug., 182, cm, 09/10/21... Start Date: 10/05/21 Status: Ordered clopidogrel 75 mg oral tablet 1, tablet, By Mouth, Daily, # 90 tablet, Refills 3, Tot. Refills 3, Maintenance, 08/18/23 16:03:00 EDT, Route to Pharmacy Electronically, [facility] #[id number], 183, cm, 08/09/23 10:49:00 EDT, Height, 107, kg, 01/26/23 19:57:00 EDT, Dry Weight Start Date: 08/18/23 Status: Ordered FLUoxetine 40 mg oral capsule 1 capsule = 40 mg, By Mouth, Daily, # 90 capsule, 3 Refills, Maintenance, 10/05/21 17:34:00 EDT, Capsule, [facility] #[id number], Partial fill upon patient request if the prescription is for a schedule II opioid drug., 182, cm, 09/10/21 8:13:00 E... Start Date: 10/05/21 Status: Ordered fluticasone 50 mcg/inh nasal spray 1 sprays = 50 mcg, Nares, Both, 2 times a day, PRN allergies, # 16 Gm, 11 Refills, Maintenance, 08/18/23 16:05:00 EDT, [place], [facility] #[id number], Partial fill upon patient request if the [...] 11 Refills, Maintenance, 08/18/23 16:04:00 EDT, Tablet, [facility] #[id number], Partial fill upon patient request if the prescription is for a schedule II opioid dr... Start Date: 08/18/23 Status: Ordered Norvasc 2.5 mg oral tablet 2.5 mg, 1, tablet, By Mouth, Daily, # 90 tablet, Refills 3, Tot. Refills 3, Maintenance, 08/18/23 16:02:00 EDT, Route to Pharmacy Electronically, [facility] #[id number], Partial fill upon patient request if the prescription is for a schedule II o... Start Date: 08/18/23 Status: Ordered omeprazole 20 mg oral enteric coated capsule 1 capsule = 20 mg, By Mouth, Daily, # 90 capsule, 3 Refills, Maintenance, 08/18/23 16:04:00 EDT, [facility] #[id number], Partial fill upon patient request if the [...] 08/18/23 16:01:00 EDT, Route to Pharmacy Electronically, [facility] #[id number] Tablet, Partial fill upon ani... Start Date: 08/18/23 Stop Date: 08/17/24 Status: Ordered traZODone 100 mg oral tablet 200 mg, 2, tablet, By Mouth, Daily at bedtime, # 180 tablet, Refills 3, Tot. Refills 3, Maintenance, 10/05/21 17:36:00 EDT, Route to Pharmacy Electronically, [facility] #[id number], Partial fillupon patient request if the prescription [...] Care Nurse Name: Esme Garcia RN Position: [facility] RN Member Role: Primary Care Nurse Name: Erich Dias RN Position: [facility] RN Member Role: Primary Care Nurse Name: Camila Vazquez RN Position: [facility] RN Member Role: Primary Care Nurse Name: Taylor Beck RN Position: [facility] RN Member Role: Primary Care Nurse Name: Amanda Moraes RN Position: [facility] RN Member Role: Primary Care Nurse Name: Mary Roberson RN Position: [facility] RN Member Role: Primary Care Nurse Name: Tomas Stauffer RN Position: [facility] RN Member Role: Primary Care Nurse Name: Balaji Mayo MD Position: [facility] Physician - Primary Care Member Role: PCP Address: Address: [address] [place] [phone]- [place] Care Team Related Persons Name: ROSANA NAGY Address: home [address] [place] [id number] Name: GORAN QUINTERO
--- OUTSIDE RECORDS SUMMARY | 2023-12-30 13:01 | XMS_ITS | Continuity of Care Document ---
Author Organization [facility] Rico Syed Aldair lt Address [address] [place] [address]- Care Team Providers Care Label Printer Name Role Phone Balaji Mayo MD Primary Care Physician Encounter [facility] Date(s): 08/09/23 - 08/16/23 [facility] Rico Syed Adult [address] [place] [address]- Encounter Diagnosis Frequent falls(Discharge Diagnosis) - 08/09/23 Attending Physician: Susan Ruiz Referring Physician: Balaji [...] 23-valent vaccine 12/17/12 Recorded 1Result Comment: [02/15/2018] [id number] 2Result Comment: [id number] 3Result Comment: [08/02/2017] [facility] 00514-071-96 Medications Aspirin Low Dose 81 mg oral delayed release tablet 1 tablet, By Mouth, Daily, # 90 tablet, 3 Refills, Maintenance, 11/08/22 11:19:00 EDT, [facility] #[id number], 184, cm, 11/03/22 11:28:00 EDT, Height, 106.3, kg, 09/13/22 12:30:00 EDT, Dry Weight Start Date: 11/08/22 Status: Ordered atorvastatin 80 mg oral tablet 1 tablet = 80 mg, By Mouth, Daily, # 90 tablet, 3 Refills, Maintenance, 12/05/22 4:30:00 EDT, Tablet, [facility] #[id number], Partial fill upon patient request if the prescription is for a schedule II opioid drug., 183, cm, 11/10/22 17:28:00 EDT,... Start Date: 12/05/22 Status: Ordered BuPROPion (Eqv-Wellbutrin SR) 150 mg/12 hours oral tablet, extended release 1 tablet = 150 mg, By Mouth, 2 times a day, # 180 tablet, 3 Refills, Maintenance, 10/05/21 17:37:00EDT, SR Tablet, [facility] #[id number], Partial fill upon patient request if the prescription is for a schedule II opioid drug., 182, cm, 09/10/21... Start Date: 10/05/21 Status: Ordered clopidogrel 75 mg oral tablet 1, tablet, By Mouth, Daily, # 90 tablet, Refills 3, Maintenance, 01/13/23 16:50:00 EDT, Route to Pharmacy Electronically, [facility] #[id number], 183, cm, 12/05/22 16:08:00 EDT, Height, 106.3, kg, 09/13/22 12:30:00 EDT, Dry Weight Start Date: 01/13/23 Status: Ordered Flonase 50 mcg/inh nasal spray 1 sprays = 50 mcg, Nares, Both, 2 times a day, # 16 Gm, 5 Refills, Maintenance, 09/15/22 8:26:00 EDT, Nasal [place], [facility] #[id number], Partial fill upon patient request if the prescription is for a schedule II opioid drug., 1 sprays Nares, Tol[place]... Start Date: 09/15/22 Status: Ordered FLUoxetine 40 mg oral capsule 1 capsule = 40 mg, By Mouth, Daily, # 90 capsule, 3 Refills, Maintenance, 10/05/21 17:34:00 EDT, Capsule, [facility] #[id number], Partial fill upon patient request if the [...] 11 Refills, Maintenance, 11/30/22 6:36:00 EDT, Tablet, [facility] #[id number], Partial fill upon patient requestif the prescription [...] capsule, 1 Refills, Maintenance, 09/28/22 9:21:00 EDT, [facility] #[id number], Partial fill upon patient request if the [...] 10/05/21 17:36:00 EDT, [id number], Partial fillupon patient request if the prescription [...] inical Service Informant Frequent falls Discharge Diagnosis 08/09/23 Vital Signs Most recent to oldest [Reference Range]: 1 2 Height 183 cm (08/09/23 10:49 AM) 183 cm (08/09/23 10:45 AM) Weight 96.1 kg (08/09/23 10:45 AM) Oxygen Saturation [94-100 %] 99 % (08/09/23 10:45 AM) Pulse Rate [55-90 bpm] 75 bpm (08/09/23 10:45 AM) Body Mass Index [18.5-24.99 kg/m2] 28.7 kg/m2 *H* (08/09/23 10:45 AM) Blood Pressure [90-138/55-84 mm Hg] 144/ 70mm Hg *H* (08/09/23 10:49 AM) 153/80mm Hg *H* (08/09/23 10:45 AM) Temperature [96.8-100.4 DegF] 98.7 DegF (08/09/23 10:45 AM) Mode of Delivery (Oxygen) Room air (08/09/23 10:45 AM) Blood pressure sites Arm, right (08/09/23 10:49 AM) Arm, right (08/09/23 10:45 AM) Temperature Route Oral (08/09/23 10:45 AM) Weight Obtained Via Standing scale (08/09/23 10:45 AM) Social History Social History Type Response Smoking Status Cigars or pipes denise y within last 30 days entered on: 06/01/23 Sex Patient Care team information Care Team Personnel Name: [place] RN Position: [facility] ED RN W/OE and Tasks Member Role: Primary Care Nurse Name: Esme Garcia RN Position: [facility] RN Member Role: Primary Care Nurse Name: Erich Dias RN Position: [facility] RN Member Role: Primary Care Nurse Name: Camila Vazquez RN Position: S RN Member Role: Primary Care Nurse Name: Taylor Beck RN Position: [facility] RN Member Role: Primary Care Nurse Name: Amanda Moraes RN Position: [facility] RN Member Role: Primary Care Nurse Name: Mary Roberson RN Position: [facility] RN Member Role: Primary Care Nurse Name: Xiomy DECKER, Tomas Hawkins Position: [facility] RN Member Role: Primary Care Nurse Name: Maria Esther URIAS, Balaji Quick Position: [facility] Physician - Primary Care Member Role: PCP Address: Address: [address] [place] [address]- [place] Care Team Related Persons Name: ROSANA NAGY Address: home [address] [place] [address] Name: GORAN QUINTERO
--- OUTSIDE RECORDS SUMMARY | 2023-12-30 13:01 | XMS_ITS | Continuity of Care Document ---
Author Organization [facility] Address [address] [place] [address]- Care Team Providers Care Rn Orthopaedic Name Role Phone Maria Esther URIAS, Balaji Quick Primary Care Physician [place] [facility] [place] 06/02/22 - 08/12/22 [facility] [address] [place], [place] [address] Attending Physician: Adriana URIAS, Daniel Cruz Admitting Physician: Adriana URIAS, Daniel Cruz Allergies, [...] pneumococcal 23-valent vaccine 12/17/12 Recorded 1Result Comment: [id number] 2Result Comment: [02/15/2018] 68882-449-88 3Result Comment: [08/02/2017] [facility] [id number] Medications aspirin 81 mg oral delayed release tablet = 81 mg, By Mouth, Daily, # 90 tablet, 3 Refills, Maintenance, 10/05/21 17:34:00 EDT, EC Tablet, [facility] #[id number], Partial fill upon patient request if the prescription is for a schedule II opioid drug., 182, cm, 09/10/21 8:13:00 EDT, Heigh... Start Date: 10/05/21 Status: Ordered atorvastatin 80 mg oral tablet 1 tablet = 80 mg, By Mouth, Daily, # 90 tablet, 3 Refills, Maintenance, 10/05/21 17:34:00 EDT, Tablet, [facility] #[id number], Partial fill upon patient request if the prescription is for a schedule II opioid drug., 182, cm, 09/10/21 8:13:00 EDT,... Start Date: 10/05/21 Status: Ordered BuPROPion (Eqv-Wellbutrin SR) 150 mg/12 hours oral tablet, extended release 1 tablet = 150 mg, By Mouth, 2 times a day, # 180 tablet, 3 Refills, Maintenance, 10/05/21 17:37:00EDT, SR Tablet, [facility] #[id number], Partial fill upon patient request if the prescription is for a schedule II opioid drug., 182, william, 09/10/21... Start Date: 10/05/21 Status: Ordered clopidogrel 75 mg oral tablet 1, tablet, By Mouth, Daily, # 90 tablet, Refills 3, Tot. Refills 3, Maintenance, 10/05/21 17:34:00 EDT, Route to Pharmacy Electronically, [facility] #[id number], 182, cm, 09/10/21 8:13:00 EDT, Height, 102.7, kg, 09/08/21 16:41:00 EDT, Dry Weight Start Date: 10/05/21 Status: Ordered Flonase 50 mcg/inh nasal spray 1 sprays = 50 mcg, Nares, Both, 2 times a day, # 16 Gm, 5 Refills, Maintenance, 09/29/20 16:49:00 EDT, Nasal [place], [facility] #[id number], Partial fill upon patient request if the prescription is for a schedule II opioid drug., 1 sprays Scottie B... Start Date: 09/29/20 Status: Ordered Fluoxetine = 50 mg, By Mouth, Daily, 0 Refills, Maintenance, 06/29/22 15:47:00 EST, Partial fill upon patient request if the prescription is for a schedule II opioid drug. Start Date: 06/29/22 Status: Ordered FLUoxetine 40 mg oral capsule 1 capsule = 40 mg, By Mouth, Daily, # 90 capsule, 3 Refills, Maintenance, 10/05/21 17:34:00 EDT, Capsule, [facility] #[id number], Partial fill upon patient request if the prescription is for a schedule II opioid drug., 182, cm, 09/10/21 8:13:00 E... Start Date: 10/05/21 Status: Ordered isosorbide mononitrate 30 mg oral tablet, extended release 1 tablet = 30 mg, By Mouth, Daily in AM, # 90 tablet, 3 Refills, 10/05/21 17:35:00 EDT, [facility] #[id number], 182, cm, 09/10/21 8:13:00 EDT, Height, 102.7, kg, 09/08/21 16:41:00 EDT, Dry Weight Start Date: 10/05/21 Status: Ordered lamotrigine 25 mg oral tablet 100 mg, 4, tablet, By Mouth, 2 times a day, # 720 tablet, Refills 3, Tot. Refills 3, Maintenance, 10/06/21 14:57:00 EDT, Route to Pharmacy Electronically, [facility] #[id number], Partial fill upon patient request if the [...] 06/06/22 14:13:00 EST, Route to Pharmacy Electronically, [facility] #[id number],Partial fill upon patient request if the prescripti... [...] 10/05/21 17:36:00 EDT, Route to Pharmacy Electronically, [facility] #[id number], Partial fillupon patient request if the prescription [...] Balaji Mayo MD Position: [facility] Primary Care Physician Member Role: PCP Address: Address: [address] [place] [address] [place] [address]- Care Team Related Persons Name: YAKOVROSANA Address: [address] [address] Name: GORAN QUINTERO
--- OUTSIDE RECORDS SUMMARY | 2023-12-30 13:01 | XMS_ITS | Continuity of Care Document ---
Author Organization [facility] Address [address] [place] [address]- Care Team Providers Care Chartered Financial Analyst Name Role Phone Maria Esther URIAS, Balaji Quick Primary Care Physician En[place] [facility] [place] Date(s): 07/13/22 - 08/12/22 [facility] [address] [place], [place] [address] Attending Physician: AdmBertha brown Admitting Physician: AdmtrBertha [...] pneumococcal 23-valent vaccine 12/17/12 Recorded 1Result Comment: [id number] 2Result Comment: [02/15/2018] [id number] 3Result Comment: [08/02/2017] [facility] [id number] Medications aspirin 81 mg oral delayed release tablet = 81 mg, By Mouth, Daily, # 90 tablet, 3 Refills, Maintenance, 10/05/21 17:34:00 EDT, EC Tablet, [facility] #[id number], Partial fill upon patient request if the prescription is for a schedule II opioid drug., 182, cm, 09/10/21 8:13:00 EDT, Heigh... Start Date: 10/05/21 Status: Ordered atorvastatin 80 mg oral tablet 1 tablet = 80 mg, By Mouth, Daily, # 90 tablet, 3 Refills, Maintenance, 10/05/21 17:34:00 EDT, Tablet, [facility] #[id number], Partial fill upon patient request if the prescription is for a schedule II opioid drug., 182, cm, 09/10/21 8:13:00 EDT,... Start Date: 10/05/21 Status: Ordered BuPROPion (Eqv-Wellbutrin SR) 150 mg/12 hours oral tablet, extended release 1 tablet = 150 mg, By Mouth, 2 times a day, # 180 tablet, 3 Refills, Maintenance, 10/05/21 17:37:00EDT, SR Tablet, [facility] #[id number], Partial fill upon patient request if the prescription is for a schedule II opioid drug., 182, william, 09/10/21... Start Date: 10/05/21 Status: Ordered clopidogrel 75 mg oral tablet 1, tablet, By Mouth, Daily, # 90 tablet, Refills 3, Tot. Refills 3, Maintenance, 10/05/21 17:34:00 EDT, Route to Pharmacy Electronically, [facility] #[id number], 182, cm, 09/10/21 8:13:00 EDT, Height, 102.7, kg, 09/08/21 16:41:00 EDT, Dry Weight Start Date: 10/05/21 Status: Ordered Flonase 50 mcg/inh nasal spray 1 sprays = 50 mcg, Nares, Both, 2 times a day, # 16 Gm, 5 Refills, Maintenance, 09/29/20 16:49:00 EDT, Nasal [place], [facility] #[id number], Partial fill upon patient request if the [...] 3 Refills, Maintenance, 10/05/21 17:34:00 EDT, Capsule, [facility] #[id number], Partial fill upon patient request if the prescription is for a schedule II opioid drug., 182, cm, 09/10/21 8:13:00 E... Start Date: 10/05/21 Status: Ordered isosorbide mononitrate 30 mg oral tablet, extended release 1 tablet = 30 mg, By Mouth, Daily in AM, # 90 tablet, 3 Refills, 10/05/21 17:35:00 EDT, [facility] #[id number], 182, cm, 09/10/21 8:13:00 EDT, Height, 102.7, kg, 09/08/21 16:41:00 EDT, Dry Weight Start Date: 10/05/21 Status: Ordered lamotrigine 25 mg oral tablet 100 mg, 4, tablet, By Mouth, 2 times a day, # 720 tablet, Refills 3, Tot. Refills 3, Maintenance, 10/06/21 14:57:00 EDT, Route to Pharmacy Electronically, [facility] #[id number], Partial fill upon patient request if the [...] 06/06/22 14:13:00 EST, Route to Pharmacy Electronically, [facility] #[id number],Partial fill upon patient request if the prescripti... [...] 10/05/21 17:36:00 EDT, Route to Pharmacy Electronically, [facility] #[id number], Partial fillupon patient request if the prescription [...] Care Nurse Name: Amanda Garibay RN Position: [facility] [...] Physician Member Role: PCP Address: Address: [address] [place] [address] [place] [address]- [place] Care Team Related Persons Name: ROSANA NAGY Address: home [address] [place] [address] Name: GORAN QUINTERO
--- OUTSIDE RECORDS SUMMARY | 2023-12-30 13:01 | XMS_ITS | Continuity of Care Document ---
Author Organization [facility] Kunal Aldair lt Address [address] [place] [address]- Care Team Providers Care Audio Production Instructor Name Role Phone Maria Esther URIAS, Balaji Quick Primary Care Physician Encounter [facility] Date(s): 02/16/21 - 03/18/21 [facility] [place] Adult [address] [place] [address]- Allergies, Adverse Reactions, Alerts Substance Reaction Severity [...] 23-valent vaccine 12/17/12 Recorded 1Result Comment: [02/15/2018] 38160-568-07 2Result Comment: [08/02/2017] [facility] [id number] Medications amLODIPine 5 mg oral tablet 2.5 [...] Refills, Maintenance, 02/18/21 9:19:00 EDT, EC Tablet, [facility], Partial fill upon patient request [...] 09/14/20 12:44:00 EDT, Route to Pharmacy Electronically, [facility] #[id number], 180, cm, 09/07/20 10:33:00 EDT, Height Start Date: 09/14/20 Status: Ordered Flonase 50 mcg/inh nasal spray 1 sprays = 50 mcg, Nares, Both, 2 times a day, # 16 Gm, 5 Refills, Maintenance, 09/29/20 16:49:00 EDT, Nasal [place], [facility] #[id number], Partial fill upon patient request if the [...] 09/13/20 6:59:00 EDT, Route to Pharmacy Electronically, [facility] #[id number], Partial fill upon patient request if the [...] 11 Refills, Maintenance, 02/20/21 7:32:00 EDT, Patch, [facility], Partial fill upon patient request if the prescription is for a schedule II opioid drug., 1 patch T... Start Date: 02/20/21 Status: Ordered Metoprolol Tartrate 25 mg oral tablet 1 tablet, By Mouth, 2 times a day, # 180 tablet, 0 Refills, Maintenance, 09/14/20 12:44:00 EDT, [facility] #[id number], 180, cm, 09/07/20 10:33:00 EDT, Height Start [...] Maintenance, :58:00 EDT, Route to Pharmacy Electronically, [facility] #[id number], Partial fill upon patient request if the [...]
--- OUTSIDE RECORDS SUMMARY | 2023-12-30 13:01 | XMS_ITS | Continuity of Care Document ---
Author Organization [facility] Kunal Aldair lt Address [address] [place] [address]- Care Team Providers Care Land Developer Name Role Phone Maria Esther URIAS, Balaji Quick Primary Care Physician [place] [facility] [place] 12[place]22 [facility] Adult [address] [place] [address]- Allergies, Adverse Reactions, Alerts Substance Reaction Severity [...] pneumococcal 23-valent vaccine 12/17/12 Recorded 1Result Comment: [id number] 2Result Comment: [02/15/2018] [id number] 3Result Comment: [08/02/2017] [facility] [id number] Medications amLODIPine 10 mg oral tablet 10 mg, 1, tablet, By Mouth, Daily, # 90 tablet, Refills 3, Tot. Refills 3, Maintenance, 10/26/22 13:35:00 EDT, Route to Pharmacy Electronically, [facility] #[id number], Partial fill upon patientrequest if the prescription is for a schedule II op... Start Date: 10/26/22 Status: Ordered Aspirin Low Dose 81 mg oral delayed release tablet 1 tablet, By Mouth, Daily, # 90 tablet, 3 Refills, Maintenance, 11/08/22 11:19:00 EDT, [facility] #[id number], 184, cm, 11/03/22 11:28:00 EDT, Height, 106.3, kg, 09/13/22 12:30:00 EDT, Dry Weight Start Date: 11/08/22 Status: Ordered atorvastatin 80 mg oral tablet 1 tablet = 80 mg, By Mouth, Daily, # 90 tablet, 3 Refills, Maintenance, 12/05/22 4:30:00 EDT, Tablet, [facility] #[id number], Partial fill upon patient request if the prescription is for a schedule II opioid drug., 183, cm, 11/10/22 17:28:00 EDT,... Start Date: 12/05/22 Status: Ordered BuPROPion (Eqv-Wellbutrin SR) 150 mg/12 hours oral tablet, extended release 1 tablet = 150 mg, By Mouth, 2 times a day, # 180 tablet, 3 Refills, Maintenance, 10/05/21 17:37:00EDT, SR Tablet, [facility] #[id number], Partial fill upon patient request if the prescription is for a schedule II opioid drug., 182, cm, 09/10/21... Start Date: 10/05/21 Status: Ordered clopidogrel 75 mg oral tablet 1, tablet, By Mouth, Daily, # 90 tablet, Refills 0, Maintenance, 10/07/22 6:36:00 EDT, Route to Pharmacy Electronically, [facility] #[id number], 184, cm, 09/28/22 9:02:00 EDT, Height, 106.3, kg,09/13/22 12:30:00 EDT, Dry Weight Start Date: 10/07/22 Status: Ordered Flonase 50 mcg/inh nasal spray 1 sprays = 50 mcg, Nares, Both, 2 times a day, # 16 Gm, 5 Refills, Maintenance, 09/15/22 8:26:00 EDT, Nasal [place], [facility] #[id number], Partial fill upon patient request if the [...] 3 Refills, Maintenance, 10/05/21 17:34:00 EDT, Capsule, [facility] #[id number], Partial fill upon patient request if the prescription is for a schedule II opioid drug., 182, cm, 09/10/21 8:13:00 E... Start Date: 10/05/21 Status: Ordered isosorbide mononitrate 30 mg oral tablet, extended release 1 tablet, By Mouth, Daily in AM, # 90 tablet, 3 Refills, Maintenance, 10/20/22 16:40:00 EDT, [facility] #[id number], 184, cm, 09/28/22 9:02:00 EDT, Height, 106.3, [...] tablet, 5 Refills, Maintenance, 09/18/22 18:55:00 EDT, [facility] #[id number], 184, cm, 09/15/22 9:12:00 EDT, Height, 106.3, kg, 09/13/22 12:30:00 EDT, Dry Weight Start Date: 09/18/22 Status: Ordered Nitrostat 0.4 mg sublingual tablet 1 tablet = 0.4 mg, Sublingual, Every 5 minutes, PRN Chest Pain, prn, # 30 tablet, 11 Refills, Maintenance, 11/30/22 6:36:00 EDT, Tablet, [facility] #[id number], Partial fill upon patient requestif the prescription is for a schedule II opioid lisa... Start Date: 11/30/22 Status: Ordered omeprazole 20 mg oral enteric coated capsule 1 capsule = 20 mg, By Mouth, Daily, # 30 capsule, 1 Refills, Maintenance, 09/28/22 9:21:00 EDT, [facility] #[id number], Partial fill upon patient request if the [...] 10/05/21 17:36:00 EDT, Route to Pharmacy Electronically, [facility] #[id number], Partial fillupon patient request if the prescription [...] Care Nurse Name: Erich Dias RN Position: [facility] RN Member Role: Primary Care Nurse Name: Camila Vazquez RN Position: S RN Member Role: Primary Care Nurse Name: Taylor Beck RN Position: [facility] RN [...] Mayo MD Position: [facility] Physician - Primary Care Member Role: PCP Address: Address: [address] [place] [address]- Name: Fadumo Conti RN Position: [facility] RN Member Role: Primary Care Nurse Care Team Related Persons Name: ROSANA NAGY Address: home [address] [place] [address] Name: GORAN QUINTERO
--- OUTSIDE RECORDS SUMMARY | 2023-12-30 13:01 | XMS_ITS | Continuity of Care Document ---
Author Organization [facility] Kunal Aldair Address [address] [place] [address]- Care Team Providers Care Behavioral Health Care Coordinator Name Role Phone Maria Esther URIAS, Balaji Quick Primary Care Physician [phone] [place] [facility] [place]15[place]20 - 10/15/20 [facility] Adult [address] [place] [address]- Allergies, Adverse Reactions, Alerts Substance Reaction Severity [...] acel(Tdap) 2 08/02/17 Given 1Result Comment: [02/15/2018] 63325-445-57 2Result Comment: [08/02/2017] [facility] [id number] Medications amLODIPine 5 mg oral tablet 2.5 [...] 09/14/20 12:44:00 EDT, Route to Pharmacy Electronically, [facility] #[id number], 180, cm, 09/07/20 10:33:00 EDT, Height Start Date: 09/14/20 Status: Ordered Flonase 50 mcg/inh nasal spray 1 sprays = 50 mcg, Nares, Both, 2 times a day, # 16 Gm, 5 Refills, Maintenance, 09/29/20 16:49:00 EDT, Nasal [place], [facility] #[id number], Partial fill upon patient request if the [...] 09/13/20 6:59:00 EDT, Route to Pharmacy Electronically, [facility] #[id number], Partial fill upon patient request if the [...] tablet, 0 Refills, Maintenance, 09/14/20 12:44:00 EDT, [facility] #[id number], 180, cm, 09/07/20 10:33:00 EDT, Height Start [...] Maintenance, 217:58:00 EDT, Route to Pharmacy Electronically, [facility] #[id number], Partial fill upon patient request if the [...]
--- OUTSIDE RECORDS SUMMARY | 2023-12-30 13:01 | XMS_ITS | Continuity of Care Document ---
Author Organization 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 [address], [address] [place] [address]- Attending Physician: Andre HYATT, Michelle Garcia Admitting Physician: Andre HYATT, Michelle Garcia Referring Physician: Balaji Cottrell MD Allergies, Adverse Reactions, Alerts Substance Reaction Severity Status Claritin Active Clozaril Active Benadryl Active Vistaril Active Nuts Active Abilify Active Nicotine Patch Active Immunizations Given and Recorded Vaccine Date Status Refusal Reason influenza virus vaccine, inactivated 01/29/19 Give n influenza virus vaccine, inactivated 1 02/15/18 Gi juan tetanus/diphtheria/pertussis, acel(Tdap) 2 08/02/17 Given 1Result Comment: [02/15/2018] [id number] 2Result Comment: [08/02/2017] [facility] 77151-294-20 Medications amLODIPine 5 mg oral tablet 5 mg, 1, tablet, By Mouth, Daily, REFAX TO [facility] PER DR COTTRELL, # 90 tablet, Refills 3, Tot.Refills 3, Maintenance, 01/16/20 15:03:00 EDT, Route to Pharmacy Electronically, [facility] #[id number], 180, cm, 12/03/19 13:50:00 EDT, Height Start Date: 01/16/20 Status: Ordered Aspirin Tablet 81 mg, By Mouth, Daily, Maintenance, 04/15/13 17:02:08 Start Date: 04/15/13 Status: Ordered atorvastatin 80 mg oral tablet 1 tablet = 80 mg, By Mouth, Daily in AM, REFAX TO [facility] PER DR COTTRELL, # 90 tablet, 1 Refills, Maintenance, 01/16/20 15:04:00 EDT, Tablet, [facility] #[id number], 180, cm, 12/03/19 13:50:00 EDT, Height, Dry [...] 01/16/20 15:09:00 EDT, Route to Pharmacy Electronically, [facility] #[id number], 180, cm, 12/03/19 13:50:00 EDT, Height Start Date: 01/16/20 Status: Ordered cyclobenzaprine 5 mg oral tablet 1 tablet = 5 mg, By Mouth, 2 times a day, PRN as needed for muscle spasm, REFAX TO [facility] PER [facility], # 60 tablet, 2 Refills, Maintenance, 01/16/20 15:05:00 EDT, Tablet, [facility]#[id number], 180, cm, 12/03/19 13:50:00 EDT, Height, Dry... [...] 01/16/20 15:06:00 EDT, Route to Pharmacy Electronically, [facility] #[id number], 180, cm, 0... Start Date: 01/16/20 Status: Ordered Flomax 0.4 mg oral capsule 0.4 mg, 1, capsule, By Mouth, Daily, REFAX TO [facility] PER DR COTTRELL, # 90 capsule, Refills 1, Tot. Refills 1, Maintenance, 01/16/20 15:08:00 EDT, Route to Pharmacy Electronically, [facility] #[id number], 180, cm, 12/03/19 13:50:00 EDT, Height Start Date: 01/16/20 Status: Ordered Flonase 50 mcg/inh nasal spray 2 sprays, Nares, Both, 2 times a day, # 16 Gm, 0 Refills, Maintenance, 11/16/18 10:23:39 EDT, [place] Start Date: 11/16/18 Status: Ordered isosorbide mononitrate 30 mg oral tablet, extended release 1 tablet, By Mouth, Daily in AM, [facility] PER [facility] COTTRELL, # 90 tablet, 1 Refills, Maintenance, 01/16/20 15:07:00 EDT, [facility] #[id number], 180, cm, 12/03/19 13:50:00 EDT, Height Start [...] patch, 5 Refills, Maintenance, 01/16/20 15:07:00 EDT, [facility] #[id number], Apply to affected area Topically Thomas... Start Date: 01/16/20 Status: Ordered metoprolol 25 mg oral tablet 25 mg, 1, tablet, By Mouth, 2 times a day, [facility]X TO [facility] PER DR COTTRLEL, # 180 tablet, Refills 1, Tot. Refills 1, Maintenance, 01/16/20 15:08:00 EDT, Route to Pharmacy Electronically, [facility] #[id number], 180, cm, 12/03/19 13:50:00 EDT,... Start Date: [...] 3 Refills, Maintenance, 02/13/20 23:02:00EDT, ER Tablet, [facility] #[id number], 180, cm, 12/03/19 13:50:00 EDT, Height Start [...]
--- OUTSIDE RECORDS SUMMARY | 2023-12-30 13:01 | XMS_ITS | Continuity of Care Document ---
Author Organization [facility] ter Address [address] [place] [id number] Care Team Providers Care Commercial Appraiser Name Role Phone Maria Esther URIAS, Balaji Quick Primary Care Physician [place] [facility] [place]): [place]23 - 11/24/[address] [id number] Discharge Disposition: A-Transfer SNF Attending Physician: Seth Gomez MD Admitting Physician: Seth Gomez MD Referring Physician: Seth Gomez MD Allergies, Adverse [...] 23-valent vaccine 12/17/12 Recorded 1Result Comment: [02/15/2018] [id number] 2Result Comment: [id number] 3Result Comment: [08/02/2017] [facility] [id number] Medications acetaminophen 325 mg oral tablet 650 mg, By Mouth, Every 6 hours, may take OTC not to exceed 3000 mg/day, Refills 0, Maintenance, 11/23/23 7:01:00 EDT, Partial fill upon patient request if the prescription is for a schedule II opioid drug. Start Date: 11/23/23 Status: Ordered Acetaminophen Tablet 650 mg, Tablet, By Mouth, 11/24/23 8:00:00 EDT Start Date: 11/24/23 Stop Date: 11/24/23 Status: Completed Aspirin Tablet 325 mg, By Mouth, 2 times a day, Refills 0, Maintenance, 11/23/23 7:02:00 EDT, Partial fill upon patient request if the prescription is for a schedule II opioid drug. Start Date: 11/23/23 Status: Ordered atorvastatin 80 mg oral tablet 1 tablet = 80 mg, By Mouth, Daily, # 90 tablet, 3 Refills, Maintenance, 08/18/23 16:03:00 EDT, Tablet, [facility] #[id number], Partial fill upon patient request if the prescription is for a schedule II opioid drug., 183, cm, 08/09/23 10:49:00 EDT... Start Date: 08/18/23 Status: Ordered BuPROPion (Eqv-Wellbutrin SR) 150 mg/12 hours oral tablet, extended release 1 tablet = 150 mg, By Mouth, 2 times a day, # 180 tablet, 3 Refills, Maintenance, 10/05/21 17:37:00EDT, SR Tablet, [facility] #[id number], Partial fill upon patient request if the [...] 3 Refills, Maintenance, 10/05/21 17:34:00 EDT, Capsule, [facility] #[id number], Partial fill upon patient request if the prescription is for a schedule II opioid drug., 182, cm, 09/10/21 8:13:00 E... Start Date: 10/05/21 Status: Ordered fluticasone 50 mcg/inh nasal spray 1 sprays = 50 mcg, Nares, Both, 2 times a day, PRN allergies, # 16 Gm, 11 Refills, Maintenance, 08/18/23 16:05:00 EDT, [place], [facility] #[id number], Partial fill upon patient request if the [...] drug. Start Date: 12/05/22 Status: Ordered Metoprolol Succinate ER 25 mg oral tablet, extended release 25 mg, XL Tablet, By Mouth, 11/24/23 8:00:00 EDT Start Date: 11/24/23 Stop Date: 11/24/23 Status: Completed Metoprolol Tartrate 25 mg oral [...] 11 Refills, Maintenance, 08/18/23 16:04:00 EDT, Tablet, [email or web address] #[id number], Partial fill upon patient request if the prescription is for a schedule II opioid dr... Start Date: 08/18/23 Status: Ordered Norvasc 2.5 mg oral tablet 2.5 mg, 1, tablet, By Mouth, Daily, # 90 tablet, Refills 3, Tot. Refills 3, Maintenance, 08/18/23 16:02:00 EDT, Route to Pharmacy Electronically, [facility] #[id number], Partial fill upon patient request if the prescription is for a schedule II o... Start Date: 08/18/23 Status: Ordered Norvasc 5 mg oral tablet 2.5 mg, Tablet, By Mouth, Hold for: SBP less than 130, 11/24/23 8:00:00 EDT Start Date: 11/24/23 Stop Date: 11/24/23 Status: Completed omeprazole 20 mg oral enteric coated capsule 1 capsule = 20 mg, By Mouth, Daily, # 90 capsule, 3 Refills, Maintenance, 08/18/23 16:04:00 EDT, [facility] #[id number], Partial fill upon patient request if the prescription is for a schedule II opioid drug., 183, cm, 08/09/23 10:49:00 EDT, .. Start Date: 08/18/23 Status: Ordered ondansetron 4 [...] Date: 11/23/23 Stop Date: 11/30/23 Status: Ordered OxyCODONE IR Tablet 10 mg, Tablet, By Mouth, Every 4 hours, PRN for Pain , Severe, Routine, 11/22/23 13:30:00 EDT Start Date: 11/22/23 Stop Date: 11/24/23 Status: Discontinued QUEtiapine 400 mg oral tablet, extended release [...] 08/18/23 16:01:00 EDT, Route to Pharmacy Electronically, [facility] #[id number] Tablet, Partial fill upon ani... Start Date: [...] 10/05/21 17:36:00 EDT, Route to Pharmacy Electronically, [email or web address] #[id number], Partial fillupon patient request if the prescription [...] Exam Date Time Procedure Performing Provider Status 11/22/23 12:42 PM C-Arm < 1 Hour Chela Castellanos; Auth (Verified) Notes: (C-Arm < 1 Hour) Reason For Exam: RIGHT HIP PAIN RESULT: C-Arm < 1 Hour C-Arm < 1 Hour INDICATION: Reason: RIGHT HIP PAIN COMPARISONS: None TECHNIQUE: Fluoroscopy support was provided. There was no radiologist in attendance. FLUOROSCOPY TIME: 6.4 seconds EXPOSURE: 0.5052 Gycm2 TECHNOLOGIST TIME: 25 minutes FINDINGS: Fluoroscopy support was provided. There was no radiologist in attendance. IMPRESSION: See above. WSN: [id number] Ordering Physician: Seth Gomez Dictated By: Tesfaye Gaming MD Dictated Date/Time: 11/23/23 7:07 am Reviewed By: Tesfaye Gaming MD Signed By: Tesfaye Gaming MD Signed Date/Time: 11/23/23 7:07 am Transcribed By: JOSEPH Transcribed Date/Time: 11/22/23 7:50 pm * Exam Date Time Procedure Performing Provider Status 11/22/23 1:43 PM Pelvis 1 or 2 Views Karene Yo; Auth (Verified) Notes: (Pelvis 1 or 2 Views) Reason For Exam: Postop Prosthesis RESULT: Pelvis 1 or 2 Views Pelvis 1 or 2 Views, Pelvis 1 or 2 Views INDICATION: Reason: right hip pain, right total hip replacement, anterior approach COMPARISONS: None TECHNIQUE: Fluoroscopy support was provided. There was no radiologist in attendance. FLUOROSCOPY TIME: 06.4 seconds EXPOSURE: 0.5052 Gycm2 (Dose Area Product) TECHNOLOGIST TIME: 25 minutes FINDINGS: Multiple fluoroscopic images of the lower pelvis obtained by the portable image intensifier in the operating room are available for review and interpretation. A total cementless right hip arthroplasty was performed using computer assisted musculoskeletal navigational techniques and software. The right acetabular and right femoral components are in excellent position. Please refer to the operative report for more details. IMPRESSION: See above. WSN: [id number] Ordering Physician: Seth Gomez Dictated By: Bud Schroeder MD, V Dictated Date/Time: 11/22/23 1:45 pm Reviewed By: Bud Schroeder MD, V Signed By: Bud Schroeder MD, V Signed Date/Time: 11/22/23 1:45 pm Transcribed By: JOSEPH Transcribed Date/Time: 11/22/23 1:44 pm * Exam Date Time Procedure Performing Provider Status 11/22/23 12:42 PM Pelvis 1 or 2 Views Chela Castellanos; Auth (Verified) Notes: (Pelvis 1 or 2 Views) Reason For Exam: right hip pain, right total hip replacement, anterior approach RESULT: Pelvis 1 or 2 Views Pelvis 1 or 2 Views, Pelvis 1 or 2 Views INDICATION: Reason: right hip pain, right total hip replacement, anterior approach COMPARISONS: None TECHNIQUE: Fluoroscopy support was provided. There was no radiologist in attendance. FLUOROSCOPY TIME: 06.4 seconds EXPOSURE: 0.5052 Gycm2 (Dose Area Product) TECHNOLOGIST TIME: 25 minutes FINDINGS: Multiple fluoroscopic images of the lower pelvis obtained by the portable image intensifier in the operating room are available for review and interpretation. A total cementless right hip arthroplasty was performed using computer assisted musculoskeletal navigational techniques and software. The right acetabular and right femoral components are in excellent position. Please refer to the operative report for more details. IMPRESSION: See above. WSN: [id number] Ordering Physician: Seth Gomez Dictated By: Bud Schroeder MD, V Dictated Date/Time: 11/22/23 1:45 pm Reviewed By: Bud Schroeder MD, V Signed By: Bud Schroeder MD, V Signed Date/Time: 11/22/23 1:45 pm Transcribed By: JOSEPH Transcribed Date/Time: 11/22/23 1:44 pm Vital Signs Most recent to oldest [Reference Range]: 1 2 3 Height 183 cm (11/23/23 5:04 PM) 183 cm (11/23/23 7:12 AM) 183 cm (11/22/23 3:58 PM) Weight 97.2 kg (11/22/23 3:58 PM) 99.0 kg (11/22/23 9:36 AM) 99.0 kg (11/15/23 12:55 PM) Oxygen Saturation [94-100 %] 96 % (11/24/23 11:00 AM) 97 % (11/24/23 6:00 AM) 93 % *L* (11/24/23 4:00 AM) Pulse Rate [55-90 bpm] 52 bpm *L* (11/24/23 11:00 AM) 56 bpm (11/24/23 7:11 AM) 56 bpm (11/24/23 6:00 AM) Body Mass Index [18.5-24.99 kg/m2] 29.02 kg/m2 *H* (11/22/23 3:58 PM) 29.56 kg/m2 *H* (11/22/23 9:36 AM) 29.56 kg/m2 *H* (11/15/23 12:55 PM) Blood Pressure [90-138/55-84 mm Hg] 105/51mm Hg (11/24/23 11:00 AM) 133/77mm Hg (11/24/23 7:11 AM) 133/77mm Hg (11/24/23 7:11 AM) Respiratory Rate [16-30 br/min] 16 br/min (11/24/23 11:00 AM) 18 br/min (11/24/23 9:36 AM) 18 br/min (11/24/23 8:11 AM) Temperature [96.8-100.4 DegF] 98.2 DegF (11/24/23 11:00 AM) 97.7 DegF (11/24/23 6:00 AM) 98.6 DegF (11/24/23 4:00 AM) Liters per Minute 2 L/min (11/22/23 3:30 PM) 2 L/min (11/22/23 2:15 PM) 2 L/min (11/22/23 2:00 PM) Mode of Delivery (Oxygen) Room air (11/24/23 11:00 AM) Room air (11/24/23 6:00 AM) Room air (11/24/23 4:00 AM) Blood pressure sites Arm, right (11/24/23 11:00 AM) Arm, right (11/24/23 6:00 AM) Arm, right (11/24/23 4:00 AM) Temperature Route Oral (11/24/23 11:00 AM) Temporal (11/24/23 6:00 AM) Oral (11/24/23 4:00 AM) Dry Weight 97.2 kg (11/22/23 3:58 PM) 97.2 kg (11/22/23 9:36 AM) Dry Weight Obtained Via Standing scale (11/22/23 9:36 AM) Social History Social History Type Response Smoking Status Cigars or pipes denise y within last 30 days entered on: 06/01/23 Sex History and physical note * Event Display: History and Physical Hospital Authored Date: [id number] * Alisa Eli NP: MODIFY Event Display: History and Physical Hospital Authored Date: [id number] SURGICAL HISTORY AND PHYSICAL DATE: 11/22/2023 PRIMARY DIAGNOSIS: Osteoarthritis of the right hip. REASON FOR ADMISSION: The patient is being admitted for right total hip arthroplasty with Dr. Gomez on 11/22/2023. HISTORY OF PRESENT ILLNESS: The patient is a 68-year-old gentleman presenting today with right sided hip pain. His pain has been going on for several years and has been getting progressively worse. His pain level is 6/10 in intensity at rest, increasing to 10/10 in intensity with weightbearing activities. He reports significant activity limitations, which include difficulty walking any prolonged distances, pivoting and stairs. He has difficulty getting in and out of the car and chair and transitioning from sit to stand. He ambulates with a cane at all times. He has been taking oxycodone, Tylenol and Aleve in order to manage his symptoms unfortunately with minimal relief. He has difficulty ambulating any distance, pivoting and stairs. He has difficulty getting in and out of the car and chair and transitioning from sit to stand. He has difficulty putting on socks and shoes. He states thathe is now ready for right total hip arthroplasty with Dr. Gomez on 11/22/2023. PAST MEDICAL HISTORY: 1. Osteoarthritis of the right hip. 2. History of CVA with right carotid occlusion where the carotids occluded at 70-99% followed by Dr. Olguin. 3. History of NSTEMI in 02/2023, status post eluting stent placement. 4. Abdominal aortic aneurysm. 5. Bipolar disorder. 6. BPH. 7. Chronic kidney disease with preoperative creatinine 1.78, BUN 24 and GFR 41. 8. Frequent falls. 9. Carotid artery stenosis. 10. Hypertension. 11. Hyperlipidemia. 12. Peripheral vascular disease. 13. GERD. 14. COVID-19 infection with no sequelae. 15. Pulmonary nodule. 16. Renal artery stenosis. 17. Schizoaffective schizophrenia. 18. Tobacco abuse, where patient smokes 4-5 cigarettes a day. 19. Prediabetes with preoperative A1c 5.8. 20. Tubular adenoma of his colon. 21. History of orthostatic hypotension. PAST SURGICAL HISTORY: 1. TURP procedure. 2. Drug-eluting stent placement in 02/2023. 3. Renal stent placement. CURRENT MEDICATION LIST: 1. Amlodipine 10 mg daily. 2. Aspirin 81 mg daily. 3. Atorvastatin 80 mg daily. 4. Bupropion SR 150 mg daily. 5. Plavix 75 mg daily, which the patient will stop in preparation for the surgery. 6. Esomeprazole 20 mg daily. 7. Tylenol as needed for pain. 8. Fluoxetine 20 mg daily. 9. Fluticasone 50 mcg spray to each nostril daily. 10. Lamotrigine 25 mg twice a day. 11. Metoprolol 25 mg daily in the morning. 12. Trazodone 100 mg daily at bedtime. 13. Senna 8.6 mg daily at bedtime. 14. Quetiapine 300 mg daily at bedtime. 15. Nitroglycerin as needed for chest pain. ALLERGIES: The patient is allergic to ABILIFY, BENADRYL, VISTARIL, CLARITIN, CLOZARIL, NICOTINE PATCH, NUTS. SOCIAL HISTORY: The patient is single and lives alone. He reports rare alcoholic beverage use. He smokes 4-5 cigarettes a day. He denies any use of illicit drugs. He does use occasional marijuana products. PHYSICIANS: His primary care provider is Dr. Balaji Mayo and his rn internal medicine is Dr. Conrad, his vascular provider is Dr. Olguin. REVIEW OF SYSTEMS: Negative with exception of HPI. PHYSICAL EXAMINATION: GENERAL: The patient is alert and oriented. Normal insight, affect, and grooming. HEENT: Normocephalic. Conjunctivae pink. Sclerae are anicteric. SKIN: Intact without rash or lesions. Nails are without clubbing or cyanosis. NECK: Supple. Trachea midline. No lymphadenopathy. CHEST: Lungs are clear to auscultation bilaterally. Breathing is unlabored. CARDIOVASCULAR: Normal S1 and S2. No rubs or gallops appreciated. The patient has a positive subclavian bruit. ABDOMEN: Soft, nontender, with normal bowel sounds. No hepatosplenomegaly or masses noted. No bruits appreciated. EXTREMITIES: The patient has negative straight leg raise test bilaterally. Bilateral knees with full range of motion, no pain, no crepitus. Right hip has very limited and painful range of motion withpain referred to the groin. Motor sensation screening is intact. Calves are supple and nontender. Ankle motion is satisfactory. Pedal pulses palpable bilaterally. Skin on his feet is intact. PREOPERATIVE DIAGNOSTIC DATA: EKG reads sinus bradycardia at 58 beats per minute with minimal voltage criteria for LVH. Orthopedic x-rays demonstrate end-stage osteoarthritis of the right hip. There is [id number] articulation, subchondral sclerosis and osteophyte formation. LABORATORY DATA: CBC shows hemoglobin and hematocrit of 12.1 and 37.2. Coagulation studies within normal limits. Chemistry panel demonstrates creatinine of 1.78, BUN 24, GFR 41, A1c 5.8. ASSESSMENT AND PLAN: The patient has advanced osteoarthritis of the right hip and is now scheduled for right total hip arthroplasty with Dr. Gomez on 11/22/2023. The patient was seen by the medical consultative preoperative clinic who stated that the patient is at low risk for perioperative pulmonary complications. He is at low risk for delirium. The patient was also seen by his rn internal medicine who stated that using the [employer] cardiac risk assessment tool he is at 1.2% risk of myocardial infarction or cardiac arrest intraoperatively or up to 30 days postoperatively. He does not require any additional testing at this time. They recommended that he continue his beta blockers throughout the mindy operative period. The patient was also seen by his vascular provider who stated that the patient's AAA has not grown significantly. They recommended repeat CT in 6 months' time. With regard to his carotid disease, there is nothing to do about the right ICA occlusion. He has mild disease on the left. He likely has left subclavian stenosis as well, but this is asymptomatic. At this point Dr. Olguin would like to monitor this with carotid duplex and we will get one in 6 months. The patient will receive intraarticular tranexamic acid due to his relatively recent stent placement with less than 1 year. He will be on aspirin postoperatively for DVT prophylaxis. He will not receive any Celebrex due to his kidney function. We will monitor his point of cares and order sliding scale insulin. The patient will be monitored on telemetry throughout the hospital stay. Discharge plans will be to home. The patient is not a candidate for same day discharge and should stay in the hospital at least overnight for further monitoring. The patient has been counseled regarding the risks and benefits of proposed surgery. His questions have been answered and he acknowledges understanding. The patient wishesto proceed with surgery. The patient will receive 1 week of in-home physical therapy postoperatively. No prescriptions were given to him at this office visit. The patient will require prescriptions for aspirin, Colace, Zofran, cefadroxil and pain medications prior to discharge. CONTACTS: His brother, Tim with a cell phone number of [phone]. Dictated by: Alisa Eli N.P. Signing Clinician: Seth Gomez M.D. Dictated: 11/15/2023 07:14:42 Transcribed: 03:07:31 AM Transcribed by: DINORAH DocID: [id number] PRELIMINARY REPORT UNLESS MANUALLY/ELECTRONICALLY SIGNED * Event Display: History and Physical Hospital Authored Date: Cardiology * Event Display: Cardiac Rhythm Strips Authored Date: Hospital Progress note * Alisa Eli NP: PERFORM, SIGN, VERIFY Event Display: Progress Note Hospital Authored Date: [id number] Patient: ALIYA NAGY Age: 68 years Sex: Male : 1955 Associated Diagnoses: None Author: Alisa Eli NP POD 2 s/p right CADEN S: no c/o CP, SOB, N/V, +flatus, voiding well. He had a bowel movement yesterday. Pain is well controlled on current regimen. Telemetry remained stable throughout the hospital stay. Kidney function remained stable. Discharge plan is to rehab pending insurance au and bed availability. O: Vitals Temperature 97.7 (06:46) Systolic Blood Pressure 133 (07:28) Diastolic Blood Pressure 77 (07:28) Pulse 56 (07:28) SpO2 97 (06:46) Respiratory Rate 18 (08:17) Last 24 Hours Basic Metabolic Panel: Hematology: Sodium: 134 mmol/L (11/24/23) Hgb: 10.7 Gm/dL (11/24/23) Potassium (POC): 4.1 mmol/L (11/24/23) Hemoglobin A1C (Monitoring): ------ Phosphorus: ------ WBC: 15.2 k/mm3 (11/24/23) Magnesium: ------ Platelets: 188 k/mm3 (11/24/23) BUN (POC) POC Cartridge: 29 mg/dL (11/24/23) INR Level: ------ Creatinine-Blood: 2.08 mg/dL (11/24/23) Creatinine Clearance: ------ Additional - Last 24 Hours Abs. NRBC: 0.0 k/mm3 (11/24/23) Anion Gap: 10 (11/24/23) Bicarbonate Level: 23 mmol/L (11/24/23) BUN: BUN (11/24/23) Chloride: 101 mmol/L (11/24/23) Creatinine, Blood: Creatinine, Blood (11/24/23) Est Creatinine Clearance: 37.88 (11/24/23) Estimated GFR Creatinine: 34 ML/MIN/1.73 M2 (11/24/23) Glucose, POC: Glucose, POC (11/24/23) Hct: 32.6 % (11/24/23) MCH: 28.5 pg (11/24/23) MCHC: 32.8 g/dL (11/24/23) MCV: 86.9 femtoliters (11/24/23) MPV: 11.0 femtoliters (11/24/23) Nucleated RBC (Automated): 0.0 #/100 WBC'S (11/24/23) RBC: 3.75 m/mm3 (11/24/23) RDW-SD: 45.2 femtoliters (11/24/23) Surgical Pathology: Surgical Pathology (11/23/23) General: alert, lucid, in NAD Heart: RRR, normal S1S2 Lungs: CTAb Abdomen: obese, soft NT BS hypo active Neurovascular: calves soft NT, +DF/+PF Dressing: CDI A/P: 68 year old male with history of CVA, CAD s/p NSTEMI, BPH, bipolar d/o, chronic kidney diseasestage 3, HTN, HLD, pre-diabetes, schizoaffective d/o now s/p right CADEN POD 2 Pain: Continue with Tylenol, Tramadol and Oxycodone Chronic kidney disease stage 3: No Celebrex or Toradol. Kidney function at baseline HLD: continue with Atorvastatin HTN: Continue with Metoprolol Pre-diabetes: Continue with POC and SSI CAD s/p NSTEMI: Continue to monitor telemetry. No NSAIDS. continue with Metoprolol Schizoaffective d/o/ bipolar d/o: Continue with Trazodone, Seroquel, Fluoxetine and Bupropion DVT prophylaxis: ASA WBAT/ PT/OT/Hip precautions Discharge to rehab pending bed availability and insurance auth Case discussed with Dr. Gomez * Amarilis Marsh RN: PERFORM, SIGN, VERIFY, MODIFY, SIGN Event Display: Progress Note Hospital Authored Date: [id number] Patient: ALIYA NAGY Age: 68 years Sex: Male : 1955 Associated Diagnoses: None Author: Amarilis Marsh RN Findings Problem Related to Alteration in Musculoskeletal : Alteration in Musculoskeletal Func/new 11/24/2023 8:00 EDT Alteration in Musculoskeletal Related to Total joint replacement, Other: RTHR Goals & Outcomes, Musculoskeletal Affected extremity will maintain color/motion/sensation, Pt able to perform ADL's to best of ability, Pt demonstrates precautions/exercise/ transfers per protocol, Pt will ambulate safely with assistive device, Pt will be free from complications of immobility, Pt will demonstrate ability to participate in ADL's, Pt will report acceptable level of comfort/painrelief Interventions, Musculoskeletal Monitor patients ambulation status, monitor Color/Motion/Sensation, Assist with repositioning, Encourage deep breathing & coughing exercises, Notify MD immediately if tissue perfusion deteriorates, Obtain assistive devices as needed, Teach & Encourage use of Incentive spirometer, Teach Pt/caregiver on ADL's & adaptive equipment, Teach Pt/caregiver on exercises, Teach pt/caregiver on use of pain scale, Teach Pt/caregiver complications of immobility, Teach Pt/caregiver techniques to increase mobility, Teach Pt/caregiver on safety precautions BH Goals/Interventions, Musculoskeletal Yes Musculoskeletal, Problem Start 11/22/2023 16:22 Reviewed Plan with, Musculoskeletal Patient Patient Progression, Musculoskeletal Pt progressing according to plan . Nursing Data Musculoskeletal Data. : Musculoskeletal Data. 11/24/2023 8:17 EDT Musculoskeletal Symptoms Joint stiffness, Joint swelling, Joint tenderness Musculoskeletal WNL except . Evaluation P: Alteration in Musculoskeletal I: Per plan of care E: Pt s/p R aTHR on 11/21 by , +PP, +CMS, D/P flexion, denies numbness, tingling, or calfpain. Aquacel on R hip, CDI, no s/sx of bleeding or infection noted. Ambulate with 1 assist with walker. Pt A+Ox4, speech is clear, follows simple and complex commands. Pt has ongoing short term memory and psychiatric issues, has visiting SUSTAINABLE LANDSCAPE ARCHITECT once a day, shoe caser aware. Visual field intact. Pt takes pills whole with water, tolerating well. Denies GANT, dizziness, N/V. SB to NSR on telemetry, HR50-60's. LS CTA, denies CP, SOB, no s/sx of respiratory distress noted. Continent for bowel and bladder, last BM 11/24/2023, +BSx4, soft and nontender abdomen noted. Voiding without pain or difficulty using urinal. C/O 12/01 R hip pain, PRN 10mg Oxycodone administered as ordered, ice pack applied, elevated with pillow, +moderate effect. IV access on R wrist, patent. Aspirin for DVT prophylaxis, Cboots in place. Pending insurance authorization for rehab. No s/sx of hypo/hyperglycemia noted. Bed in lowest position, bed alarm on functioning, call guadarrama in reach, hourly rounding maintained, will continue to monitor and document changes in [facility] 1:55pm Discharge packet, handover report given to [facility]. cardiac monitor removed. IV removed, catheter tip intact. Pt left unit via W/C with [facility].. * Nicole Neville RN: MODIFY, SIGN, PERFORM, SIGN, VERIFY Event Display: Progress Note Hospital Authored Date: [id number] Patient: ALIYA NAGY Age: 68 years Sex: Male : 1955 Associated Diagnoses: None Author: Nicole Neville RN Findings Problem Related to Alteration in Musculoskeletal : Alteration in Musculoskeletal Func/new 11/24/2023 0:00 EDT Alteration in Musculoskeletal Related to Total joint replacement, Other: RTHR Goals & Outcomes, Musculoskeletal Affected extremity will maintain color/motion/sensation, Pt able to perform ADL's to best of ability, Pt demonstrates precautions/exercise/ transfers per protocol, Pt will ambulate safely with assistive device, Pt will be free from complications of immobility, Pt will demonstrate ability to participate in ADL's, Pt will report acceptable level of comfort/painrelief Interventions, Musculoskeletal Monitor patients ambulation status, monitor Color/Motion/Sensation, Assist with repositioning, Encourage deep breathing & coughing exercises, Obtain assistive devices as needed, Teach & Encourage use of Incentive spirometer, Teach Pt/caregiver on ADL's & adaptive equipment, Teach Pt/caregiver on exercises, Teach pt/caregiver on use of pain scale, Teach Pt /caregiver complications of immobility, Teach Pt/caregiver techniques to increase mobility, Teach Pt/caregiver on safety precautions BH Goals/Interventions, Musculoskeletal Yes Musculoskeletal, Problem Start 11/22/2023 16:22 Reviewed Plan with, Musculoskeletal Patient Patient Progression, Musculoskeletal Pt progressing according to plan . Nursing Data Vital Signs : VITAL SIGNS SECTION 11/23/2023 20:00 EDT Temperature 98.1 DegF Temperature Route Oral Pulse Rate 74 bpm Systolic Blood Pressure 165 mm Hg H Diastolic Blood Pressure 80 mm Hg Blood pressure sites Arm, right Oxygen Saturation 94 % Mode of Delivery (Oxygen) Room air . Narrative/Incidental P: alteration in musculoskeletal I: as listed above E: Pt is a 68 year old male post op right CADEN with Dr. Gomez 11/21. A/Ox4, vital signs stable. Lung sounds dim, denies any chest pain/shortness of breath. Equal chest rise and fall noted upon assessment, no use of accessory muscles. Educated on use of incentive spirometer. Pt able to demonstrate and teachback. Encouraged use 10x per hour. Pt has BSx4, abdomen is soft/nontender. Denies any nausea/vomiting. LBM 11/23, reports passing flatus. Pt tolerating diet well. Pt OOB 1 assist with walker,Ptvoiding without issue in bathroom/urinal. Pt has Aquacel dressing to right hip that is C/D/I. +CMS,+PP, +D/P. Ankle pumps encouraged 10x/hour. Skin around dressing is intact. Denies any numbness/ting ling in extremities. Denies any calf pain. Pt was given scheduled Tylenol and PRN 10mg Oxy per order for pain with good relief. On telemetry, NSR-sinus fabrice, 50s-60s overnight. Pt instructed not to get OOB without assistance, verbalized understanding. Cboots and ASA for DVT prophylaxis. Plan for rehab, pending insurance auth. Bed locked and in lowest position for safety. Personal belongings and call guadarrama within reach. No further concerns at this time.. . Note * Amarilis Marsh RN: PERFORM Event Display: Discharge/Transfer Note Hospital Authored Date: [id number] Nursing Discharge Note Entered On: 11/24/2023 13:55 EDT Performed On: 11/24/2023 13:55 EDT by Amarilis Marsh RN Nursing Discharge Note 2 Discharge Time : 11/24/2023 13:55 EDT Discharge Level of Care at Discharge : correction facility Discharge Nursing Homes/Rehab Facilities : [facility] Fac Patient Left Unit Via : Wheelchair Patient Accompanied Off Unit with : Ambulance/Chair Van Personnel Handover Given to Transport Personnel : Yes DC Instructions Provided & Signed by Pt : No Patient Understands D/C Instructions : Yes Patient Instructions Discharge Signed : No Instructions for Discharge Comments : discharge packet handed to [facility] Did Pt have Specialty Bed or Wound Vac : No Amarilis Marsh RN - 11/24/2023 13:55 EDT * Kareen Fields RN: PERFORM, SIGN, VERIFY Event Display: Case Management Discharge Plan Authored Date: [id number] Patient: ALIYA NAGY Age: 68 years Sex: Male : 1955 Associated Diagnoses: None Author: Kareen Fields RN Discharge Plan Case Management Discharge Plan : Case Management Discharge Plan Data 11/24/2023 11:35 EDT Discharge Level of Care at Discharge correction facility Discharge Nursing Homes/Rehab Facilities [facility] Discharge Transportation Arranged [address] Discharge Arranged Transport Date/Time 11/24/2023 14:00 Mode of Transportation Arranged Chair Van Service Categories #1 Occupational Therapy, Physical Therapy, Long Term Service Start Date and Time #1 11/24/2023 14:00 Service Comments #1 You are going to rehab today. * Kareen Fields RN: VERIFY, PERFORM, SIGN Event Display: Case Management Discharge Plan Authored Date: [id number] Patient: ALIYA NAGY Age: 68 years Sex: Male : 1955 Associated Diagnoses: None Author: Kareen Fields RN Discharge Plan Case Management Discharge Plan : Case Management Discharge Plan Data 11/24/2023 11:35 EDT Discharge Level of Care at Discharge correction facility Discharge Nursing Homes/Rehab Facilities [facility] Discharge Transportation Arranged [facility] [address] Discharge Arranged Transport Date/Time 11/24/2023 14:00 Mode of Transportation Arranged Chair Van Service Categories #1 Occupational Therapy, Physical Therapy, Long Term Service Start Date and Time #1 11/24/2023 14:00 Service Comments #1 You are going to rehab today. * Amarilis Marsh RN: PERFORM Event Display: Patient Education/Instruction Authored Date: [id number] Inpatient Adult Discharge Instructions. [address] [address] Name: ALIYA NAGY : 1955?? Visit: 11/22/2023 08:46?? Current Date: 11/24/2023 12:52 ?? Account: [id number]?? Inpatient Adult Discharge Instructions We would like [...] and their families. Surveys are administered by [employer] ?? If further treatment with your primary care physician or another doctor is recommended, it is important for you to keep the appointment. Call your primary care physician or return to the Emergency Department immediately if your condition worsens, fails to improve, or new symptoms develop. If you need to find a doctor, you can call [facility] [employer] Link for a referral at [phone] or toll free at [phone] ([phone]) or log in to [email or web address].. ?? [facility], in keeping with [facility] guidance, no longer requires face masks [...] a health care roberto of your choosing. [employer] is a website that allows you to securely view your medical information including your hospital discharge summary, office visit summaries, medications and follow-up visits. You can also request appointments, renew medications, and request access to your medical information using a health care roberto of your choosing, or just ask a question. You can enroll at [email or web address] or register during your next office visit. You have been discharged from [facility], Patient Care Unit: SW7??. If you have any questions regarding these instructions, including results of studies pending, afteryou leave, please call us and we will be happy to assist you 14/11. [facility] Your Care Team Attending Physician Jason URIAS, Seth Mccray?? Consulting Providers Seth Gomez MD?? Discharging Providers Alcira HYATT, Alisa Your Diagnosis Osteoarthritis of hip, right Tests Performed Below is a partial list of the tests performed during your hospitalization. You may have had other tests and procedures not included in this list. Please discuss all test results with your provider. BUN CBC Creatinine Electrolytes GLUCOSE POC XR C-Arm < 1 Hour XR Pelvis 1 or 2 Views BUN?? CBC?? Creatinine?? Electrolytes?? Glucose POC?? Pathology Tissue Request ()?? C-Arm < 1 Hour?? Pelvis 1 or 2 Views (XR Pelvis 1 or 2 Views)?? Primary Care Provider Maria Esther URIAS, Balaji Quick? Advance Directive Health Care Proxy on File Yes - Health Care Proxy Yes - MOLST Discharge Vitals Temperature: 98.2 DegF Height: 183 cm Pulse Rate:??52 bpm??Low Weight: 97.2 kg Respiratory Rate: 16 br/min Body Mass Index:??29.02 kg/m2??High Systolic Blood Pressure: 105 mm Hg Body surface area: 2.22 Diastolic Blood Pressure:??51 mm Hg??Low ?? Oxygen Saturation: 96 % ?? Studies Pending All studies ordered during this hospital stay have been completed unless listed below. Please discuss all pending results with your provider listed above in these instructions. ?? BUN?? CBC?? Creatinine?? Electrolytes?? What to do next Instructions From Your Doctor ?? Orders?? Unit Discharge Criteria Met, ??11/24/23 9:48:00 EDT Unit Discharge Criteria Met, ??pending PT/OT, ??11/23/23 7:04:00 EDT?? Prescriptions??, ??11/24/23 9:48:00 EDT , ??11/23/23 7:04:00 EDT?? Scheduled Follow-Up Appointments Monday 11:30 AM EDT ?? Where: [facility] [address] [place] [address]- Status: Pending Monday 10:00 AM EDT ?? With: Clau URIAS, Donn Owens Where: [facility] [address] [place] [address]- Status: Pending Monday 11:30 AM EDT ?? With: Max HYATT, Michelle Jimenez Where: [facility] [address], [address] [place] [id number]- Status: Pending You Need to Schedule the Following Appointments Follow Up with??[facility] When:??Within 1 to 2 weeks Discharge Medications YAKOVALIYA MASSEY :1955 Visit Date:11/22/2023 Medications: Please continue your medications until treatment is completed or stopped by your provider. Medications not listed below should be discontinued. Discuss any questions related to medications with your provider. What How Much When Instructions Next Dose New Cefadroxil (cefadroxil 500 mg oral capsule) 1 capsule Oral Every 12 hours Duration: 10 Days Printed Prescription 11/23 8pm New Docusate (docusate sodium 100 mg oral tablet) 100 Milligram Oral Twice a day as needed for as needed for constipation Duration: 30 Days Printed Prescription as needed New Ondansetron (ondansetron 4 mg oral tablet) 1 tab(s) Oral Every 8 hours as needed for Nausea & Vomiting Duration: 5 Days Printed Prescription as needed New Oxycodone (oxyCODONE 5 mg oral tablet) See instructions 1-2 tablets By Mouth Every 4 hours, As needed for Pain , Severe ?? Printed Prescription 11/23 after 1:40pm as directed do not take with Tramadol?? New Tramadol (traMADol 50 mg oral tablet) See instructions 1-2 tablets By Mouth Every 6 hours not to exceed 400 mg/ day, As needed for Pain , Mild ?? Printed Prescription as directed do not take with Oxycodone Changed Acetaminophen (acetaminophen 325 mg oral tablet) 650 Milligram Oral Every 6 hours may take OTC not to exceed 3000 mg/ day ?? 11/23 after 2pm Changed Aspirin (Aspirin Tablet) 325 Milligram Oral Twice a day 8/2 8pm Unchanged Amlodipine (Norvasc 2.5 mg oral tablet) 1 tab(s) Oral Daily 11/24 8am Unchanged Atorvastatin (atorvastatin 80 mg oral tablet) 1 tab(s) Oral Daily 11/24 8am Unchanged BuPROpion (BuPROPion (Eqv-Wellbutrin SR) 150 mg/ 12 hours oral tablet, extended release) 1 tab(s) Oral Twice a day 11/23 8pm Unchanged Fluoxetine (FLUoxetine 40 mg oral capsule) 1 capsule Oral Daily 11/24 8am Unchanged Fluticasone Nasal (fluticasone 50 mcg/ inh nasal spray) 1 spray(s) Nares, Both Twice a day as needed for allergies as needed Unchanged Lamotrigine (lamotrigine 100 mg oral tablet) 2 tab(s) Oral Twice a day 11/23 8pm Unchanged Lidocaine Topical (Lidoderm 5% film) Topically Daily 11/24 8am Unchanged Metoprolol (Metoprolol Tartrate 25 mg oral tablet) 1 tab(s) Oral Twice a day 11/23 8pm Unchanged Nitroglycerin (Nitrostat 0.4 mg sublingual tablet) 1 tab(s) Sublingual Every 5 minutes as needed for Chest Pain prn ?? as needed Unchanged Omeprazole (omeprazole 20 mg oral enteric coated capsule) 1 capsule Oral Daily 11/24 8am Unchanged Quetiapine (QUEtiapine 400 mg oral tablet, extended release) 1 tab(s) Oral Daily at Bedtime 11/23 8pm Unchanged Senna (Senna 8.6 mg oral tablet) 1 tab(s) Oral Daily at Bedtime as needed for constipation as needed Unchanged Trazodone (traZODone 100 mg oral tablet) 2 tab(s) Oral Daily at Bedtime 11/23 8pm ?? What How Much When Comments Stop Taking Clopidogrel (clopidogrel 75 mg oral tablet) 1 tab(s) Oral Daily Prescription Given During Visit Cefadroxil (cefadroxil 500 mg oral capsule) - 1 capsule = 500 mg, By Mouth, Every 12 hours, # 20 capsule, 0 Refills?? Docusate (docusate sodium 100 mg oral tablet) - 100 mg, By Mouth, 2 times a day, # 60 tablet, 0 Refills?? Ondansetron (ondansetron 4 mg oral tablet) - 1 tablet = 4 mg, By Mouth, Every 8 hours, # 15 tablet,0 Refills?? Oxycodone (oxyCODONE 5 mg oral tablet) - , # 84 tablet, 0 Refills, 1-2 tablets By Mouth Every 4 hours?? Tramadol (traMADol 50 mg oral tablet) - , # 56 tablet, 0 Refills, 1-2 tablets By Mouth Every 6 hoursnot to exceed 400 mg/day?? Laboratory Results Below is a partial list of the most recent Laboratory test results done prior to this discharge. You may have had other tests and procedures not included in this list. Please discuss all test resultswith your provider. Est Creatinine Clearance - 37.88 mL/min (11/24/2023) [id number] (11/22/2023) ? ?Surgical Pathology - Patient Name: ALIYA NAGY
Lab
Patient : 1955 (Age: 68)
Collection Date: 11/22/2023
Accession Date: 11/22/2023
Sign Out Date: 11/23/2023

Tissue Source:
1:RIGHT FEMORAL HEAD

Final Diagnosis:
Femoral head, right, excision:
- Femoral head with degenerative changes of articular cartilaginous surface and eburnation consistent with severe osteoarthritis (gross examination). <br/& gt;

Primary Pathologist:Holger Adnerson M.D.
electronically signed outby: Holger Anderson M.D. / GALE

Clinical History:
Osteoarthritis right hip.

Gross Description:
Received in formalin labeled right femoral head is a 5.0 x 5.0 x 4.5 cm femoral head in continuity with 2.0 cm of femoral neck, which displays a flat resection margin. Thearticular surface is reyes-red and smooth to roughened with focal areas of eburnation and a minimal amount of osteophytic growth. Sectioning reveals yellow-red, trabeculated bone surrounded by cortical bone, averaging 0.1 cm. No masses or lesions are identified. The specimen is for gross examination only. (CE)*

Phone #: [phone], On-Call Pathologist: [id number] BUN (11/24/2023) ???BUN - 29 mg/dL CBC (11/24/2023) ???WBC - 15.2 k/mm3???RBC - 3.75 m/mm3???Hgb - 10.7 Gm/dL???Hct - 32.6 %???MCV - 86.9 femtoliters???MCH - 28.5 pg???MCHC - 32.8 g/dL???Platelet Count - 188 k/mm3???RDW-SD - 45.2 femtoliters???MPV - 11.0 femtoliters???Nucleated RBC (Automated) - 0.0 #/100 WBC'S???Abs. NRBC - 0.0 k/mm3 Creatinine (11/24/2023) ???Creatinine-Blood - 2.08 mg/dL???Estimated GFR Creatinine - 34 ML/MIN/1.73 M2 Electrolytes (11/24/2023) ???Sodium - 134 mmol/L???Potassium - 4.1 mmol/L???Chloride - 101 mmol/L???Bicarbonate Level - 23 mmol/L???Anion Gap - 10 GLUCOSE POC (11/24/2023) ???Glucose, POC - 186 mg/dL You will be contacted within 72 hours with your results. Allergies (NKA means No Known Allergies) Abilify Benadryl Claritin Clozaril Nicotine Patch Nuts Vistaril Problems Active Problems??(22) AAA (abdominal aortic aneurysm)?? Bipolar disorder?? BPH (benign prostatic hyperplasia)?? cardiac stent placement?? Carotid artery stenosis?? Chest pain?? CKD (chronic kidney disease) stage 3, GFR 30-59 ml/min?? COVID-19?? Degenerative joint disease (DJD) of hip?? Essential hypertension?? Gastroesophageal reflux disease?? HTN (hypertension)?? Hyperglycemia?? Hyperlipidemia?? Nondependent cannabis abuse in remission?? Peripheral vascular disease?? Pulmonary nodule?? Renal artery stenosis?? Schizoaffective schizophrenia?? Stenosis of left subclavian artery?? Tobacco use?? Tubular adenoma of colon?? Education Materials Below is the list of Educational Leaflet Providered with your Discharge Instructions. Valuables and Belongings I fully understand and agree that [facility] accepts no responsibility for all my personal [...] of Valuable and Belonging List: With patient Disposition of Belongings: Valuables Locked Date for Pt to Sign Valuables/Belongings: 11/22/23 16:15:00 ?? Other Discharge Information ? Case Management Discharge Plan?? Discharge Plan?? Discharge Agency Information?? Discharge Level of Care at Discharge: correction facility Service Start Date and Time #1: 11/24/23 14:00:00 Discharge Transportation Arranged: [facility] [address] [facility] ??[phone] Service Categories #1: Occupational Therapy, Physical Therapy, Long Term Mode of Transportation Arranged: Chair Van Service Comments #1: You are going to rehab today. Discharge Arranged Transport Date/Time: 11/24/23 14:00:00 ?? Discharge Nursing Homes/Rehab Facilities: [facility] ? Pulmonary Rehab Status?? Pulmonary Rehab Discharge Status?? Respiratory Rate: 16 br/min ? Common Emergency Awareness Tips IS [...] are strongly encouraged to quit. Please call [facility] [employer] Link at [phone] or [phone] ([phone]) or log in to [email or web address] for referrals to smoking cessation programs. ?? 544 Suicide & Crisis Lifeline is available 14/11 if you or someone you know needs to find a reason to keep living. By calling 477 you'll be connected to a skilled, trained counselor at a crisis center in your area. INPATIENT DISCHARGE INSTRUCTIONS SIGNATURE PAGE ALIYA NAGY Location:[facility] Registration Date and Time:11/22/2023 08:46 EDT Primary Care Physician: Maria Esther URIAS, Balaji Quick, Attending Physician: Jason URIAS, Seth Mccray, I ALIYA NAGY, have received the above patient education materials/instructions and have verbalized understanding. If ambulance or transport services are being used I further acknowledge beinggiven a choice of service. ?? If you need to contact me, please call me at this number: . Patient/Mud Jack Nozzle Worker Name: Patient/Mud Jack Nozzle Worker Signature: Relationship to Patient: Witness Name/Signature: Date: * Alcira PROFESSIONAL FIGHTER, Alisa: MODIFY Alcira HYATT, Alisa: MODIFY, SIGN Alcira HYATT, Alisa: SIGN Seth Gomez MD: SIGN, MODIFY Jason URIAS, Seth Mccray: MODIFY, SIGN, VERIFY Event Display: Discharge/Transfer Note Hospital Authored Date: Patient: ALIYA NAGY Age: 68 years Sex: Male : 1955 Associated Diagnoses: None Author: Amie Suggs NP Discharge Summary Admission Date: 11/22/2023 Discharge Date: 11/24/2023 Admitting Diagnosis: Right hip osteoarthritis Discharge Diagnosis: Right hip osteoarthritis Final Diagnosis: Right hip osteoarthritis Procedure: Right total hip arthroplasty Surgeon: Dr. Seth Gomez Past Medical History: 1. Osteoarthritis of the right hip. 2. History of CVA with right carotid occlusion where the carotids occluded at 70-99% followed by Dr. Kronick. 3. History of NSTEMI in 02/2023, status post eluting stent placement. 4. Abdominal aortic aneurysm. 5. Bipolar disorder. 6. BPH. 7. Chronic kidney disease with preoperative creatinine 1.78, BUN 24 and GFR 41. 8. Frequent falls. 9. Carotid artery stenosis. 10. Hypertension. 11. Hyperlipidemia. 12. Peripheral vascular disease. 13. GERD. 14. COVID-19 infection with no sequelae. 15. Pulmonary nodule. 16. Renal artery stenosis. 17. Schizoaffective schizophrenia. 18. Tobacco abuse, where patient smokes 4-5 cigarettes a day. 19. Prediabetes with preoperative A1c 5.8. 20. Tubular adenoma of his colon. 21. History of orthostatic hypotension. Orthopedics: The patient is status post right total hip arthroplasty. It is anticipated that they will be discharged to rehab today pending PT, OT clearance. The patient is doing well from a surgicalstandpoint. The incision is healing well. Neurovascular status is intact. Calves are supple and nontender. Making good progress with Physical Therapy and Occupational therapy. Supervision with ambulation walking 25 feet , ambulating with a walker. Pain is well controlled on their current regimen, Acetaminophen 650 mg every 6 hours, tramadol 50-100 mg PO q 6 hrs as needed and Oxycodone 5-10 mg every 4 hours as needed. Patient is tolerating this well. They will be sent to rehab with a prescription for this medication. Prescription: Tramadol 50 mg tablet. Take 1-2 tablets every 6 hours as needed for pain x 7 days. # 56 tablet. Oxycodone IR 5mg tablet. Take 1-2 tablets every 4 hours as needed for pain x 7 days. # 84 tablet. Hospital course: Relatively uneventful medically. The patient denies any nausea/vomiting. Stable on telemetry throughout stay. Pain is controlled now. Patient is voiding spontaneously. Kidney function remained stable. + bowel sounds. No other issues. No calf tenderness. Current Medication List: Acetaminophen (acetaminophen 325 mg oral tablet) 650 Milligram By Mouth Every 6 hours may take OTC not to exceed 3000 mg/day Amlodipine (Norvasc 2.5 mg oral tablet) 2.5 Milligram 1 tablet By Mouth Daily Aspirin (Aspirin Tablet) 325 Milligram By Mouth 2 times a day x 30 days Atorvastatin (atorvastatin 80 mg oral tablet) 1 tab(s) 80 Milligram By Mouth Daily BuPROpion (BuPROPion (Eqv-Wellbutrin SR) 150 mg/12 hours oral tablet, extended release) 1 tab(s) 150 Milligram By Mouth 2 times a day Cefadroxil (cefadroxil 500 mg oral capsule) 1 capsule 500 Milligram By Mouth Every 12 hours for 10 Days Docusate (docusate sodium 100 mg oral tablet) 100 Milligram By Mouth 2 times a day as needed as needed for constipation for 30 Days Fluoxetine (FLUoxetine 40 mg oral capsule) 1 capsule 40 Milligram By Mouth Daily Fluticasone Nasal (fluticasone 50 mcg/inh nasal spray) 1 spray(s) 50 Microgram Nares, Both 2 times a day as needed allergies Lamotrigine (lamotrigine 100 mg oral tablet) 200 Milligram 2 tablet By Mouth 2 times a day Lidocaine Topical (Lidoderm 5% film) Topically Daily Metoprolol (Metoprolol Tartrate 25 mg oral tablet) 1 tab(s) 25 Milligram By Mouth 2 times a day Nitroglycerin (Nitrostat 0.4 mg sublingual tablet) 1 tab(s) 0.4 Milligram Sublingual Every 5 minutes as needed Chest Pain prn Omeprazole (omeprazole 20 mg oral enteric coated capsule) 1 capsule 20 Milligram By Mouth Daily Ondansetron (ondansetron 4 mg oral tablet) 1 tab(s) 4 Milligram By Mouth Every 8 hours as needed Nausea & Vomiting for 5 Days Oxycodone (oxyCODONE 5 mg oral tablet) See Instructions as needed 1-2 tablets By Mouth Every 4 hours Pain , Severe Quetiapine (QUEtiapine 400 mg oral tablet, extended release) 400 Milligram 1 tablet By Mouth Daily at bedtime Senna (Senna 8.6 mg oral tablet) 8.6 Milligram 1 tab(s) By Mouth Daily at bedtime as needed constipation Tramadol (traMADol 50 mg oral tablet) See Instructions as needed Pain , Mild 1-2 tablets By Mouth Every 6 hoursnot to exceed 400 mg/day Trazodone (traZODone 100 mg oral tablet) 200 Milligram 2 tablet By Mouth Daily at bedtime Allergies (Active and Proposed Allergies Only) Vistaril (Severity: Unknown severity, Onset: Unknown) Nuts (Severity: Unknown severity, Onset: Unknown) Nicotine Patch (Severity: Unknown severity, Onset: Unknown) Abilify (Severity: Unknown severity, Onset: Unknown) Claritin (Severity: Unknown severity, Onset: Unknown) Benadryl (Severity: Unknown severity, Onset: Unknown) Clozaril (Severity: Unknown severity, Onset: Unknown) BLOOD COUNT & DIFF WBC 15.2 k/mm3 (High) 11/24/2023 02:11 RBC 3.75 m/mm3 (Low) 11/24/2023 02:11 Hgb 10.7 Gm/dL (Low) 11/24/2023 02:11 Hct 32.6 % (Low) 11/24/2023 02:11 MCV 86.9 femtoliters () 11/24/2023 02:11 MCH 28.5 pg () 11/24/2023 02:11 MCHC 32.8 g/dL (Low) 11/24/2023 02:11 Platelet Count 188 k/mm3 () 11/24/2023 02:11 RDW-SD 45.2 femtoliters () 11/24/2023 02:11 MPV 11.0 femtoliters () 11/24/2023 02:11 Nucleated RBC (Automated) 0.0 #/100 WBC'S () 11/24/2023 02:11 Abs. NRBC 0.0 k/mm3 () 11/24/2023 02:11 CHEM GENERAL Sodium 134 mmol/L () 11/24/2023 02:11 Potassium 4.1 mmol/L () 11/24/2023 02:11 Chloride 101 mmol/L () 11/24/2023 02:11 Bicarbonate Level 23 mmol/L () 11/24/2023 02:11 Anion Gap 10 () 11/24/2023 02:11 Glucose, POC 92 mg/dL () 11/24/2023 06:51 BUN 29 mg/dL (High) 11/24/2023 02:11 Creatinine-Blood 2.08 mg/dL (High) 11/24/2023 02:11 Estimated GFR Creatinine 34 ML/MIN/1.73 M2 () 11/24/2023 02:11 URINE OTHER Est Creatinine Clearance 37.88 mL/min () 11/24/2023 03:36 DVT prophylaxis ASA EC 325 mg p o bid x 30 days Disposition: Anticipates being discharged today to rehab. Follow up at [facility] in 2 weeks , patient is aware of this. The patient has an Aquacel dressing in place. They may shower with it and the dressing can be discontinued on POD 14. Stay at the rehab is expected to be less than 30 days. Discharge Information Admission Date: 11/22/2023 Principal Discharge Diagnosis Discharge Plan Discharge Disposition Discharge: . * Jason URIAS, Seth T: PERFORM Event Display: Discharge/Transfer Note Hospital Authored Date: Stay at the rehab is expected to be less than 30 days Patient Care team information Care Team Personnel Name: [place] RN Position: [facility] ED RN W/OE and Tasks Member Role: Primary Care Nurse Name: Esme Garcia RN Position: [facility] RN Member Role: Primary Care Nurse Name: Erich Dias RN Position: [facility] RN Member Role: Primary Care Nurse Name: Camila Vazquez RN Position: [facility] RN Member Role: Primary Care Nurse Name: Taylor Beck RN Position: [facility] RN Member Role: Primary Care Nurse Name: Amanda Moraes RN Position: [facility] RN Member Role: Primary Care Nurse Name: Nicole Neville RN Position: [facility] RN Member Role: Primary Care Nurse Name: Mary Roberson RN Position: [facility] RN Member Role: Primary Care Nurse Name: Tomas Stauffer RN Position: [facility] RN Member Role: Primary Care Nurse Name: Balaji Mayo MD Position: [facility] Physician - Primary Care Member Role: PCP Address: Address: [address] [place] [id number] Name: Ashley Khanna RN Position: [facility] RN Member Role: Primary Care Nurse Name: Amarilis Marsh RN Position: [facility] RN Member Role: Patient Care Provider Name: Elaine Suarez Position: [facility] TA w/ Crop Nutrition Scientist Member Role: Patient Care Provider Care Team Related Persons Name: TIM NAGY Address: [address] [address] Name: GORAN QUINTERO
--- OUTSIDE RECORDS SUMMARY | 2023-12-30 13:01 | XMS_ITS | Continuity of Care Document ---
Author Organization [facility] Address [address] [place] [address]- Care Team Providers Care Membership Counselor Name Role Phone Maria Esther URIAS, Balaji Quick Primary Care Physician [phone] [place] [facility] [place] 04/12/23 [facility] [address] [place], [place] [address] Attending Physician: AdmBertha brown Admitting [...] 23-valent vaccine 12/17/12 Recorded 1Result Comment: [02/15/2018] 34705-195-58 2Result Comment: [id number] 3Result Comment: [08/02/2017] [facility] 82383-214-87 Medications Aspirin Low Dose 81 mg oral delayed release tablet 1 tablet, By Mouth, Daily, # 90 tablet, 3 Refills, Maintenance, 11/08/22 11:19:00 EDT, [facility] #[id number], 184, cm, 11/03/22 11:28:00 EDT, Height, 106.3, kg, 09/13/22 12:30:00 EDT, Dry Weight Start Date: 11/08/22 Status: Ordered atorvastatin 80 mg oral tablet 1 tablet = 80 mg, By Mouth, Daily, # 90 tablet, 3 Refills, Maintenance, 12/05/22 4:30:00 EDT, Tablet, [facility] #[id number], Partial fill upon patient request if the prescription is for a schedule II opioid drug., 183, cm, 11/10/22 17:28:00 EDT,... Start Date: 12/05/22 Status: Ordered BuPROPion (Eqv-Wellbutrin SR) 150 mg/12 hours oral tablet, extended release 1 tablet = 150 mg, By Mouth, 2 times a day, # 180 tablet, 3 Refills, Maintenance, 10/05/21 17:37:00EDT, SR Tablet, [facility] #[id number], Partial fill upon patient request if the prescription is for a schedule II opioid drug., 182, cm, 09/10/21... Start Date: 10/05/21 Status: Ordered clopidogrel 75 mg oral tablet 1, tablet, By Mouth, Daily, # 90 tablet, Refills 3, Maintenance, 01/13/23 16:50:00 EDT, Route to Pharmacy Electronically, [facility] #[id number], 183, cm, 12/05/22 16:08:00 EDT, Height, 106.3, kg, 09/13/22 12:30:00 EDT, Dry Weight Start Date: 01/13/23 Status: Ordered Flonase 50 mcg/inh nasal spray 1 sprays = 50 mcg, Nares, Both, 2 times a day, # 16 Gm, 5 Refills, Maintenance, 09/15/22 8:26:00 EDT, Nasal [place], [facility] #[id number], Partial fill upon patient request if the prescription is for a schedule II opioid drug., 1 sprays Nares, Tolu... Start Date: 09/15/22 Status: Ordered FLUoxetine 40 mg oral capsule 1 capsule = 40 mg, By Mouth, Daily, # 90 capsule, 3 Refills, Maintenance, 10/05/21 17:34:00 EDT, Capsule, [facility] #[id number], Partial fill upon patient request if the [...] 11 Refills, Maintenance, 11/30/22 6:36:00 EDT, Tablet, [facility] #[id number], Partial fill upon patient requestif the prescription [...] capsule, 1 Refills, Maintenance, 09/28/22 9:21:00 EDT, [facility] #[id number], Partial fill upon patient request if the [...] 10/05/21 17:36:00 EDT, Route to Pharmacy Electronically, [facility] #[id number], Partial fillupon patient request if the prescription [...] Care Member Role: PCP Address: Address: [address] [place] [address]- [place] Care Team Related Persons Name: YAKOVROSANA MASSEY Address: home [address] [place] [id number] Name: GORAN QUINTERO
--- OUTSIDE RECORDS SUMMARY | 2023-12-30 13:01 | XMS_ITS | Continuity of Care Document ---
Author Organization [facility] Rico Syed Aldair lt Address [address] [place] [address]- Care Team Providers Care Communication Studies Professor Name Role Phone Maria Esther URIAS, Balaji Quick Primary Care Physician [phone] [place] [facility] [place]23 - 05/27/23 [facility] Rico Syed Adult [address] [place] [address]- Allergies, Adverse Reactions, Alerts Substance Reaction Severity [...] 23-valent vaccine 12/17/12 Recorded 1Result Comment: [02/15/2018] 21534-964-27 2Result Comment: [id number] 3Result Comment: [08/02/2017] [facility] 97143-205-80 Medications Aspirin Low Dose 81 mg oral delayed release tablet 1 tablet, By Mouth, Daily, # 90 tablet, 3 Refills, Maintenance, 11/08/22 11:19:00 EDT, [facility] #[id number], 184, cm, 11/03/22 11:28:00 EDT, Height, 106.3, kg, 09/13/22 12:30:00 EDT, Dry Weight Start Date: 11/08/22 Status: Ordered atorvastatin 80 mg oral tablet 1 tablet = 80 mg, By Mouth, Daily, # 90 tablet, 3 Refills, Maintenance, 12/05/22 4:30:00 EDT, Tablet, [facility] #[id number], Partial fill upon patient request if the prescription is for a schedule II opioid drug., 183, cm, 11/10/22 17:28:00 EDT,... Start Date: 12/05/22 Status: Ordered BuPROPion (Eqv-Wellbutrin SR) 150 mg/12 hours oral tablet, extended release 1 tablet = 150 mg, By Mouth, 2 times a day, # 180 tablet, 3 Refills, Maintenance, 10/05/21 17:37:00EDT, SR Tablet, [facility] #[id number], Partial fill upon patient request if the prescription is for a schedule II opioid drug., 182, cm, 09/10/21... Start Date: 10/05/21 Status: Ordered clopidogrel 75 mg oral tablet 1, tablet, By Mouth, Daily, # 90 tablet, Refills 3, Maintenance, 01/13/23 16:50:00 EDT, Route to Pharmacy Electronically, [facility] #[id number], 183, cm, 12/05/22 16:08:00 EDT, Height, 106.3, kg, 09/13/22 12:30:00 EDT, Dry Weight Start Date: 01/13/23 Status: Ordered Flonase 50 mcg/inh nasal spray 1 sprays = 50 mcg, Nares, Both, 2 times a day, # 16 Gm, 5 Refills, Maintenance, 09/15/22 8:26:00 EDT, Nasal [place], [facility] #[id number], Partial fill upon patient request if the prescription is for a schedule II opioid drug., 1 sprays Nares, Tolu... Start Date: 09/15/22 Status: Ordered FLUoxetine 40 mg oral capsule 1 capsule = 40 mg, By Mouth, Daily, # 90 capsule, 3 Refills, Maintenance, 10/05/21 17:34:00 EDT, Capsule, [facility] #[id number], Partial fill upon patient request if the [...] 11 Refills, Maintenance, 11/30/22 6:36:00 EDT, Tablet, [facility] #[id number], Partial fill upon patient requestif the prescription [...] capsule, 1 Refills, Maintenance, 09/28/22 9:21:00 EDT, [facility] #[id number], Partial fill upon patient request if the [...] 10/05/21 17:36:00 EDT, Route to Pharmacy Electronically, [facility] #[id number], Partial fillupon patient request if the prescription [...] Care Member Role: PCP Address: Address: [address] [place] [address]- Care Team Related Persons Name: ROSANA NAGY Address: home [address] [place] [address] Name: GORAN QUINTERO
[2023-12-30 13:02] LABS: Procalcitonin 0.05 ng/mL
--- OUTSIDE RECORDS SUMMARY | 2023-12-30 13:02 | XMS_ITS | Continuity of Care Document ---
Author Organization [facility] Kunal Aldair lt Address [address] [place] [address]- Care Team Providers Care Delivery Rn Name Role Phone Maria Esther URIAS, Balaji Quick Primary Care Physician Encounter [facility] Date(s): 02/01/21 - 03/03/21 [facility] Adult [address] [place] [address]- Allergies, Adverse Reactions, Alerts Substance Reaction Severity [...] 23-valent vaccine 12/17/12 Recorded 1Result Comment: [02/15/2018] 14470-629-28 2Result Comment: [08/02/2017] [facility] 55840-238-59 Medications amLODIPine 5 mg oral tablet 2.5 [...] Maintenance, 02/18/21 9:19:00 EDT, EC Tablet, [facility], Partial fill upon [...] 09/14/20 12:44:00 EDT, Route to Pharmacy Electronically, [facility] #[id number], 180, cm, 09/07/20 10:33:00 EDT, Height Start Date: 09/14/20 Status: Ordered Flonase 50 mcg/inh nasal spray 1 sprays = 50 mcg, Nares, Both, 2 times a day, # 16 Gm, 5 Refills, Maintenance, 09/29/20 16:49:00 EDT, Nasal [place], [facility] #[id number], Partial fill upon patient request if the [...] 09/13/20 6:59:00 EDT, Route to Pharmacy Electronically, [facility] #[id number], Partial fill upon patient request if the [...] 11 Refills, Maintenance, 02/20/21 7:32:00 EDT, Patch, [facility], Partial fill upon patient request if the prescription is for a schedule II opioid drug., 1 patch T... Start Date: 02/20/21 Status: Ordered Metoprolol Tartrate 25 mg oral tablet 1 tablet, By Mouth, 2 times a day, # 180 tablet, 0 Refills, Maintenance, 09/14/20 12:44:00 EDT, [facility] #[id number], 180, cm, 09/07/20 10:33:00 EDT, Height Start [...] Maintenance, :58:00 EDT, Route to Pharmacy Electronically, [facility] #[id number], Partial fill upon patient request if the [...]
--- OUTSIDE RECORDS SUMMARY | 2023-12-30 13:02 | XMS_ITS | Continuity of Care Document ---
Author Organization [facility] Address [address] [place] [address]- Care Team Providers Care Perinatal Specialist Name Role Phone Balaji Mayo MD Primary Care Physician [place] [facility] [place] 03/16/22 - 04/20/[address] [address] Attending Physician: Balaji Mayo MD Admitting Physician: [...] pneumococcal 23-valent vaccine 12/17/12 Recorded 1Result Comment: [id number] 2Result Comment: [02/15/2018] 21773-139-58 3Result Comment: [08/02/2017] [facility] 12812-907-27 Medications aspirin 81 mg oral delayed release tablet = 81 mg, By Mouth, Daily, # 90 tablet, 3 Refills, Maintenance, 10/05/21 17:34:00 EDT, EC Tablet, [facility] #[id number], Partial fill upon patient request if the prescription is for a schedule II opioid drug., 182, cm, 09/10/21 8:13:00 EDT, Heigh... Start Date: 10/05/21 Status: Ordered atorvastatin 80 mg oral tablet 1 tablet = 80 mg, By Mouth, Daily, # 90 tablet, 3 Refills, Maintenance, 10/05/21 17:34:00 EDT, Tablet, [facility] #[id number], Partial fill upon patient request if the prescription is for a schedule II opioid drug., 182, cm, 09/10/21 8:13:00 EDT,... Start Date: 10/05/21 Status: Ordered BuPROPion (Eqv-Wellbutrin SR) 150 mg/12 hours oral tablet, extended release 1 tablet = 150 mg, By Mouth, 2 times a day, # 180 tablet, 3 Refills, Maintenance, 10/05/21 17:37:00EDT, SR Tablet, [facility] #[id number], Partial fill upon patient request if the prescription is for a schedule II opioid drug., 182, cm, 09/10/21... Start Date: 10/05/21 Status: Ordered clopidogrel 75 mg oral tablet 1, tablet, By Mouth, Daily, # 90 tablet, Refills 3, Tot. Refills 3, Maintenance, 10/05/21 17:34:00 EDT, Route to Pharmacy Electronically, [facility] #[id number], 182, cm, 09/10/21 8:13:00 EDT, Height, 102.7, [...] 5 Refills, Maintenance, 09/29/20 16:49:00 EDT, Nasal [place], [facility] #[id number], Partial fill upon patient request if the prescription is for a schedule II opioid drug., 1 sprays Nares, B... Start Date: 09/29/20 Status: Ordered FLUoxetine 40 mg oral capsule 1 capsule = 40 mg, By Mouth, Daily, # 90 capsule, 3 Refills, Maintenance, 10/05/21 17:34:00 EDT, Capsule, [facility] #[id number], Partial fill upon patient request if the [...] 90 tablet, 3 Refills, 10/05/21 17:35:00 EDT, [facility] #[id number], 182, cm, 09/10/21 8:13:00 EDT, Height, 102.7, [...] 10/06/21 14:57:00 EDT, Route to Pharmacy Electronically, [facility] #[id number], Partial fill upon patient request if the [...] Maintenance,10/05/21 17:40:00 EDT, Route to Pharmacy Electronically, [facility] #[id number], Partial fill upon patient request if the prescription is for a sc... Start Date: 10/05/21 Status: Ordered QUEtiapine 400 mg oral tablet, extended release 400 mg, 1, tablet, By Mouth, Daily in PM, # 90 tablet, Refills 0, Tot. Refills 0, Maintenance, 04/13/22 10:30:00 EST, Route to Pharmacy Electronically, [facility] #[id number], Partial fill upon patient request if the prescription is for a schedul... Start Date: 04/13/22 Status: Ordered [facility] VISIT FREQUENCY [facility] VISIT [...] 10/05/21 17:36:00 EDT, Route to Pharmacy Electronically, [facility] #[id number], Partial fillupon patient request if the prescription [...] Personnel Name: [place] RN Position: [facility] ED RN W/OE and Tasks Member Role: Primary Care Nurse Name: Camila Vazquez RN Position: [facility] RN Member Role: Primary Care Nurse Name: Amanda Garibay RN Position: [facility] RN Member Role: Primary Care Nurse Name: Mary Roberson RN Position: [facility] RN Member Role: Primary Care Nurse Name: Tomas Stauffer RN Position: [facility] RN Member Role: Primary Care Nurse Name: Balaji Mayo MD Position: [facility] Primary Care Physician Member Role: PCP Address: Address: [address] [place] [address]- Name: Pattie Oates RN Position: [facility] RN Member Role: Primary Care Nurse Care Team Related Persons Name: ROSANA NAGY Address: home [address] [place] [address] Name: GORAN QUINTERO
--- OUTSIDE RECORDS SUMMARY | 2023-12-30 13:02 | XMS_ITS | Continuity of Care Document ---
Author Organization [facility] Address [address] [place] [address]- Care Team Providers Care Farm Management Agent Name Role Phone Maria Esther URIAS, Balaji Quick Primary Care Physician [phone] Encounter [facility] Date(s): 11/14/23 - 12/14/23 [facility] [address] [place], [place] [address] Attending Physician: AdmBertha brown Admitting Physician: AdmtrBertha [...] 23-valent vaccine 12/17/12 Recorded 1Result Comment: [02/15/2018] 32042-375-21 2Result Comment: [id number] 3Result Comment: [08/02/2017] [facility] 38425-459-60 Medications acetaminophen 325 mg oral tablet 650 [...] 3 Refills, Maintenance, 08/18/23 16:03:00 EDT, Tablet, [facility] #[id number], Partial fill upon patient request if the prescription is for a schedule II opioid drug., 183, cm, 08/09/23 10:49:00 EDT... Start Date: 08/18/23 Status: Ordered BuPROPion (Eqv-Wellbutrin SR) 150 mg/12 hours oral tablet, extended release 1 tablet = 150 mg, By Mouth, 2 times a day, # 180 tablet, 3 Refills, Maintenance, 10/05/21 17:37:00EDT, SR Tablet, [facility] #[id number], Partial fill upon patient request if the [...] 3 Refills, Maintenance, 10/05/21 17:34:00 EDT, Capsule, [facility] #[id number], Partial fill upon patient request if the prescription is for a schedule II opioid drug., 182, cm, 09/10/21 8:13:00 E... Start Date: 10/05/21 Status: Ordered fluticasone 50 mcg/inh nasal spray 1 sprays = 50 mcg, Nares, Both, 2 times a day, PRN allergies, # 16 Gm, 11 Refills, Maintenance, 08/18/23 16:05:00 EDT, [place], [facility] #[id number], Partial fill upon patient request if the [...] 11 Refills, Maintenance, 08/18/23 16:04:00 EDT, Tablet, [facility] #[id number], Partial fill upon patient request if the prescription is for a schedule II opioid dr... Start Date: 08/18/23 Status: Ordered Norvasc 2.5 mg oral tablet 2.5 mg, 1, tablet, By Mouth, Daily, # 90 tablet, Refills 3, Tot. Refills 3, Maintenance, 08/18/23 16:02:00 EDT, Route to Pharmacy Electronically, [facility] #[id number], Partial fill upon patient request if the prescription is for a schedule II o... Start Date: 08/18/23 Status: Ordered omeprazole 20 mg oral enteric coated capsule 1 capsule = 20 mg, By Mouth, Daily, # 90 capsule, 3 Refills, Maintenance, 08/18/23 16:04:00 EDT, [facility] #[id number], Partial fill upon patient request if the [...] 08/18/23 16:01:00 EDT, Route to Pharmacy Electronically, [facility] #[id number] Tablet, Partial fill upon ani... Start Date: 08/18/23 Stop Date: 08/17/24 Status: Ordered traZODone 100 mg oral tablet 200 mg, 2, tablet, By Mouth, Daily at bedtime, # 180 tablet, Refills 3, Tot. Refills 3, Maintenance, 10/05/21 17:36:00 EDT, Route to Pharmacy Electronically, [facility] #[id number], Partial fillupon patient request if the prescription [...] Care Nurse Name: Nicole Neville RN Position: [facility] RN Member Role: Primary Care Nurse Name: Mary Roberson RN Position: [facility] RN Member Role: Primary Care Nurse Name: Tomas Stauffer RN Position: [facility] RN Member Role: Primary Care Nurse Name: Balaji Mayo MD Position: [facility] Physician - Primary Care Member Role: PCP Address: Address: [address] [place] [address]- Name: Ashley Khanna RN Position: [facility] RN Member Role: Primary Care Nurse Care Team Related Persons Name: ROSANA NAGY Address: home [address] [place] [address] Name: GORAN QUINTERO
--- OUTSIDE RECORDS SUMMARY | 2023-12-30 13:02 | XMS_ITS | Continuity of Care Document ---
Author Organization [facility] Rico Syed Aldair lt Address [address] [place] [address]- Care Team Providers Care Germination Testing Manager Name Role Phone Maria Esther URIAS, Balaji Quick Primary Care Physician Encounter [facility] Date(s): 04/27/22 - 05/27/22 [facility] Rico Syed Adult [address] [place] [address]- Allergies, Adverse Reactions, Alerts Substance Reaction Severity [...] pneumococcal 23-valent vaccine 12/17/12 Recorded 1Result Comment: [id number] 2Result Comment: [02/15/2018] 85268-634-38 3Result Comment: [08/02/2017] [facility] 11373-431-23 Medications aspirin 81 mg oral delayed release tablet = 81 mg, By Mouth, Daily, # 90 tablet, 3 Refills, Maintenance, 10/05/21 17:34:00 EDT, EC Tablet, [facility] #[id number], Partial fill upon patient request if the prescription is for a schedule II opioid drug., 182, cm, 09/10/21 8:13:00 EDT, Heigh... Start Date: 10/05/21 Status: Ordered atorvastatin 80 mg oral tablet 1 tablet = 80 mg, By Mouth, Daily, # 90 tablet, 3 Refills, Maintenance, 10/05/21 17:34:00 EDT, Tablet, [facility] #[id number], Partial fill upon patient request if the prescription is for a schedule II opioid drug., 182, cm, 09/10/21 8:13:00 EDT,... Start Date: 10/05/21 Status: Ordered BuPROPion (Eqv-Wellbutrin SR) 150 mg/12 hours oral tablet, extended release 1 tablet = 150 mg, By Mouth, 2 times a day, # 180 tablet, 3 Refills, Maintenance, 10/05/21 17:37:00EDT, SR Tablet, [facility] #[id number], Partial fill upon patient request if the prescription is for a schedule II opioid drug., 182, cm, 09/10/21... Start Date: 10/05/21 Status: Ordered clopidogrel 75 mg oral tablet 1, tablet, By Mouth, Daily, # 90 tablet, Refills 3, Tot. Refills 3, Maintenance, 10/05/21 17:34:00 EDT, Route to Pharmacy Electronically, [facility] #[id number], 182, cm, 09/10/21 8:13:00 EDT, Height, 102.7, kg, 09/08/21 16:41:00 EDT, Dry Weight Start Date: 10/05/21 Status: Ordered Flonase 50 mcg/inh nasal spray 1 sprays = 50 mcg, Nares, Both, 2 times a day, # 16 Gm, 5 Refills, Maintenance, 09/29/20 16:49:00 EDT, Nasal [place], [facility] #[id number], Partial fill upon patient request if the prescription is for a schedule II opioid drug., 1 sprays Nares, B... Start Date: 09/29/20 Status: Ordered FLUoxetine 40 mg oral capsule 1 capsule = 40 mg, By Mouth, Daily, # 90 capsule, 3 Refills, Maintenance, 10/05/21 17:34:00 EDT, Capsule, [facility] #[id number], Partial fill upon patient request if the prescription is for a schedule II opioid drug., 182, cm, 09/10/21 8:13:00 E... Start Date: 10/05/21 Status: Ordered isosorbide mononitrate 30 mg oral tablet, extended release 1 tablet = 30 mg, By Mouth, Daily in AM, # 90 tablet, 3 Refills, 10/05/21 17:35:00 EDT, [facility] #[id number], 182, cm, 09/10/21 8:13:00 EDT, Height, 102.7, kg, 09/08/21 16:41:00 EDT, Dry Weight Start Date: 10/05/21 Status: Ordered lamotrigine 25 mg oral tablet 100 mg, 4, tablet, By Mouth, 2 times a day, # 720 tablet, Refills 3, Tot. Refills 3, Maintenance, 10/06/21 14:57:00 EDT, Route to Pharmacy Electronically, [facility] #[id number], Partial fill upon patient request if the prescription is for a sche... Start Date: 10/06/21 Stop Date: 10/01/22 Status: Ordered lidocaine 5% topical film 1 patch, Topically, Daily, PRN Pain , Mild, remove after 12 hours, # 30 patch, 11 Refills, Maintenance, 02/20/21 7:32:00 EDT, Patch, [facility], Partial fill upon patient request if the prescription is for a schedule II opioid drug., 1 patch T... Start Date: 02/20/21 Status: Ordered metoprolol 25 mg oral tablet 25 mg, 1, tablet, By Mouth, 2 times a day, increase in dose, # 60 tablet, Refills 5, Tot. Refills 5, Maintenance, 04/28/22 7:37:00 EST, Route to Pharmacy Electronically, [facility], Partial fill upon patient request if the prescription is for... Start Date: 04/28/22 Status: Ordered traZODone 100 mg oral tablet 200 mg, 2, tablet, By Mouth, Daily at bedtime, # 180 tablet, Refills 3, Tot. Refills 3, Maintenance, 10/05/21 17:36:00 EDT, Route to Pharmacy Electronically, [facility] #[id number], Partial fillupon patient request if the prescription [...] Mayo MD Position: [facility] Primary Care Physician Member Role: PCP Address: Address: [address] [place] [address]- Name: Pattie Oates RN Position: [facility] RN Member Role: Primary Care Nurse Care Team Related Persons Name: ROSANA NAGY Address: home [address] [place] [address] Name: GORAN QUINTERO
--- OUTSIDE RECORDS SUMMARY | 2023-12-30 13:02 | XMS_ITS | Continuity of Care Document ---
Author Organization [facility] Rico Syed Aldair lt Address [address] [place] [address]- Care Team Providers Care Laborer Steel Handling Name Role Phone Maria Esther URIAS, Balaji Quick Primary Care Physician Encounter [facility] Date(s): 05/01/23 - 05/31/23 [facility] Rico Syed Adult [address] [place] [address]- Allergies, Adverse Reactions, Alerts Substance Reaction Severity [...] 23-valent vaccine 12/17/12 Recorded 1Result Comment: [02/15/2018] 41462-347-30 2Result Comment: [id number] 3Result Comment: [08/02/2017] [facility] 57795-278-18 Medications Aspirin Low Dose 81 mg oral delayed release tablet 1 tablet, By Mouth, Daily, # 90 tablet, 3 Refills, Maintenance, 11/08/22 11:19:00 EDT, [facility] #[id number], 184, cm, 11/03/22 11:28:00 EDT, Height, 106.3, kg, 09/13/22 12:30:00 EDT, Dry Weight Start Date: 11/08/22 Status: Ordered atorvastatin 80 mg oral tablet 1 tablet = 80 mg, By Mouth, Daily, # 90 tablet, 3 Refills, Maintenance, 12/05/22 4:30:00 EDT, Tablet, [facility] #[id number], Partial fill upon patient request if the prescription is for a schedule II opioid drug., 183, cm, 11/10/22 17:28:00 EDT,... Start Date: 12/05/22 Status: Ordered BuPROPion (Eqv-Wellbutrin SR) 150 mg/12 hours oral tablet, extended release 1 tablet = 150 mg, By Mouth, 2 times a day, # 180 tablet, 3 Refills, Maintenance, 10/05/21 17:37:00EDT, SR Tablet, [facility] #[id number], Partial fill upon patient request if the prescription is for a schedule II opioid drug., 182, cm, 09/10/21... Start Date: 10/05/21 Status: Ordered clopidogrel 75 mg oral tablet 1, tablet, By Mouth, Daily, # 90 tablet, Refills 3, Maintenance, 01/13/23 16:50:00 EDT, Route to Pharmacy Electronically, [facility] #[id number], 183, cm, 12/05/22 16:08:00 EDT, Height, 106.3, kg, 09/13/22 12:30:00 EDT, Dry Weight Start Date: 01/13/23 Status: Ordered Flonase 50 mcg/inh nasal spray 1 sprays = 50 mcg, Nares, Both, 2 times a day, # 16 Gm, 5 Refills, Maintenance, 09/15/22 8:26:00 EDT, Nasal [place], [facility] #[id number], Partial fill upon patient request if the prescription is for a schedule II opioid drug., 1 sprays Nares, Tolu... Start Date: 09/15/22 Status: Ordered FLUoxetine 40 mg oral capsule 1 capsule = 40 mg, By Mouth, Daily, # 90 capsule, 3 Refills, Maintenance, 10/05/21 17:34:00 EDT, Capsule, [facility] #[id number], Partial fill upon patient request if the [...] 11 Refills, Maintenance, 11/30/22 6:36:00 EDT, Tablet, [facility] #[id number], Partial fill upon patient requestif the prescription [...] 1 Refills, Maintenance, 09/28/22 9:21:00 EDT, [facility] #[id number], Partial fill upon patient request if the [...] 17:36:00 EDT, Route to Pharmacy Electronically, [facility] #[id number], Partial fillupon patient request if the prescription [...] Team Personnel Name: Wild Woods RN Position: [facility] ED RN W/OE and Tasks Member Role: Primary Care Nurse Name: Esme Garcia RN Position: [facility] RN Member Role: Primary Care Nurse Name: Erich Dias RN Position: [facility] [...] Primary Care Member Role: PCP Address: Address: [address] [place] [address]- [place] Care Team Related Persons Name: ROSANA NAGY Address: home [address] [place] [address] Name: GORAN QUINTERO
--- OUTSIDE RECORDS SUMMARY | 2023-12-30 13:02 | XMS_ITS | Continuity of Care Document ---
Author Organization [facility] Kunal Aldair lt Address [address] [place] [address]- Care Team Providers Care House Shorer Name Role Phone Maria Esther URIAS, Balaji Quick Primary Care Physician Encounter [facility] Date(s): 12/01/22 - 12/31/22 [facility] Adult [address] [place] [address]- Allergies, Adverse Reactions, Alerts Substance Reaction Severity [...] pneumococcal 23-valent vaccine 12/17/12 Recorded 1Result Comment: [id number] 2Result Comment: [02/15/2018] 65496-887-12 3Result Comment: [08/02/2017] [facility][NOTE 3] 22887-414-29 Medications amLODIPine 10 mg oral tablet 10 mg, 1, tablet, By Mouth, Daily, # 90 tablet, Refills 3, Tot. Refills 3, Maintenance, 10/26/22 13:35:00 EDT, Route to Pharmacy Electronically, [facility] #[id number], Partial fill upon patientrequest if the prescription is for a schedule II op... Start Date: 10/26/22 Status: Ordered Aspirin Low Dose 81 mg oral delayed release tablet 1 tablet, By Mouth, Daily, # 90 tablet, 3 Refills, Maintenance, 11/08/22 11:19:00 EDT, [facility] #[id number], 184, cm, 11/03/22 11:28:00 EDT, Height, 106.3, kg, 09/13/22 12:30:00 EDT, Dry Weight Start Date: 11/08/22 Status: Ordered atorvastatin 80 mg oral tablet 1 tablet = 80 mg, By Mouth, Daily, # 90 tablet, 3 Refills, Maintenance, 12/05/22 4:30:00 EDT, Tablet, [facility] #[id number], Partial fill upon patient request if the prescription is for a schedule II opioid drug., 183, cm, 11/10/22 17:28:00 EDT,... Start Date: 12/05/22 Status: Ordered BuPROPion (Eqv-Wellbutrin SR) 150 mg/12 hours oral tablet, extended release 1 tablet = 150 mg, By Mouth, 2 times a day, # 180 tablet, 3 Refills, Maintenance, 10/05/21 17:37:00EDT, SR Tablet, [facility] #[id number], Partial fill upon patient request if the prescription is for a schedule II opioid drug., 182, cm, 09/10/21... Start Date: 10/05/21 Status: Ordered clopidogrel 75 mg oral tablet 1, tablet, By Mouth, Daily, # 90 tablet, Refills 0, Maintenance, 10/07/22 6:36:00 EDT, Route to Pharmacy Electronically, [facility] #[id number], 184, cm, 09/28/22 9:02:00 EDT, Height, 106.3, kg,09/13/22 12:30:00 EDT, Dry Weight Start Date: 10/07/22 Status: Ordered Flonase 50 mcg/inh nasal spray 1 sprays = 50 mcg, Nares, Both, 2 times a day, # 16 Gm, 5 Refills, Maintenance, 09/15/22 8:26:00 EDT, Nasal [place], [facility] #[id number], Partial fill upon patient request if the [...] 3 Refills, Maintenance, 10/05/21 17:34:00 EDT, Capsule, [facility] #[id number], Partial fill upon patient request if the prescription is for a schedule II opioid drug., 182, cm, 09/10/21 8:13:00 E... Start Date: 10/05/21 Status: Ordered isosorbide mononitrate 30 mg oral tablet, extended release 1 tablet, By Mouth, Daily in AM, # 90 tablet, 3 Refills, Maintenance, 10/20/22 16:40:00 EDT, [facility] #[id number], 184, cm, 09/28/22 9:02:00 EDT, Height, 106.3, [...] tablet, 5 Refills, Maintenance, 09/18/22 18:55:00 EDT, [facility] #[id number], 184, cm, 09/15/22 9:12:00 EDT, Height, 106.3, kg, 09/13/22 12:30:00 EDT, Dry Weight Start Date: 09/18/22 Status: Ordered Nitrostat 0.4 mg sublingual tablet 1 tablet = 0.4 mg, Sublingual, Every 5 minutes, PRN Chest Pain, prn, # 30 tablet, 11 Refills, Maintenance, 11/30/22 6:36:00 EDT, Tablet, [facility] #[id number], Partial fill upon patient requestif the prescription is for a schedule II opioid lisa... Start Date: 11/30/22 Status: Ordered omeprazole 20 mg oral enteric coated capsule 1 capsule = 20 mg, By Mouth, Daily, # 30 capsule, 1 Refills, Maintenance, 09/28/22 9:21:00 EDT, [facility] #[id number], Partial fill upon patient request if the [...] 10/05/21 17:36:00 EDT, Route to Pharmacy Electronically, [facility] #[id number], Partial fillupon patient request if the prescription [...] Care Nurse Name: Amanda Garibay RN Position: [facility] RN Member Role: Primary Care Nurse Name: Mary Roberson RN Position: [facility] RN Member Role: Primary Care Nurse Name: Tomas Stauffer RN Position: [facility] ED RN W/OE and Tasks Member Role: Primary Care Nurse Name: Balaji Mayo MD Position: [facility] Physician - Primary Care Member Role: PCP Address: Address: [address] [place] [address]- Name: Fadumo Conti RN Position: S RN Member Role: Primary Care Nurse Care Team Related Persons Name: YAKOV ROSANA Address: home [address] [place] [id number] Name: GORAN QUINTERO
--- OUTSIDE RECORDS SUMMARY | 2023-12-30 13:02 | XMS_ITS | Continuity of Care Document ---
Author Organization [facility] Kunal Aldair lt Address [address] [place] [address]- Care Team Providers Care Physical Trainer Name Role Phone Balaji Mayo MD Primary Care Physician En[place] [facility] Date(s): 07/20/21 - 10/10/21 [facility] Kunal Adult [address] [place] [address]- Attending Physician: Balaji Mayo MD Allergies, Adverse [...] 23-valent vaccine 12/17/12 Recorded 1Result Comment: [02/15/2018] [id number] 2Result Comment: [08/02/2017] [facility] 27888-851-97 Medications aspirin 81 mg oral delayed release tablet = 81 mg, By Mouth, Daily, # 90 tablet, 3 Refills, Maintenance, 10/05/21 17:34:00 EDT, EC Tablet, [facility] #[id number], Partial fill upon patient request if the prescription is for a schedule II opioid drug., 182, cm, 09/10/21 8:13:00 EDT, Heigh... Start Date: 10/05/21 Status: Ordered atorvastatin 80 mg oral tablet 1 tablet = 80 mg, By Mouth, Daily, # 90 tablet, 3 Refills, Maintenance, 10/05/21 17:34:00 EDT, Tablet, [facility] #[id number], Partial fill upon patient request if the prescription is for a schedule II opioid drug., 182, cm, 09/10/21 8:13:00 EDT,... Start Date: 10/05/21 Status: Ordered BuPROPion (Eqv-Wellbutrin SR) 150 mg/12 hours oral tablet, extended release 1 tablet = 150 mg, By Mouth, 2 times a day, # 180 tablet, 3 Refills, Maintenance, 10/05/21 17:37:00EDT, SR Tablet, [facility] #[id number], Partial fill upon patient request if the prescription is for a schedule II opioid drug., 182, cm, 09/10/21... Start Date: 10/05/21 Status: Ordered clopidogrel 75 mg oral tablet 1, tablet, By Mouth, Daily, # 90 tablet, Refills 3, Tot. Refills 3, Maintenance, 10/05/21 17:34:00 EDT, Route to Pharmacy Electronically, [facility] #[id number], 182, cm, 09/10/21 8:13:00 EDT, Height, 102.7, [...] 5 Refills, Maintenance, 09/29/20 16:49:00 EDT, Nasal [place], [facility] #[id number], Partial fill upon patient request if the prescription is for a schedule II opioid drug., 1 sprays Nares, B... Start Date: 09/29/20 Status: Ordered FLUoxetine 40 mg oral capsule 1 capsule = 40 mg, By Mouth, Daily, # 90 capsule, 3 Refills, Maintenance, 10/05/21 17:34:00 EDT, Capsule, [facility] #[id number], Partial fill upon patient request if the [...] 90 tablet, 3 Refills, 10/05/21 17:35:00 EDT, [facility] #[id number], 182, cm, 09/10/21 8:13:00 EDT, Height, 102.7, [...] 10/06/21 14:57:00 EDT, Route to Pharmacy Electronically, [facility] #[id number], Partial fill upon patient request if the prescription is for a sche... Start Date: 10/06/21 Stop Date: 10/01/22 Status: Ordered lidocaine 5% topical film 1 patch, Topically, Daily, PRN Pain , Mild, remove after 12 hours, # 30 patch, 11 Refills, Maintenance, 02/20/21 7:32:00 EDT, Patch, [facility], Partial fill upon patient request if the prescription is for a schedule II opioid drug., 1 patch T... Start Date: 02/20/21 Status: Ordered metoprolol 25 mg oral tablet 12.5 mg, 0.5, tablet, By Mouth, 2 times a day, # 90 tablet, Refills 3, Tot. Refills 3, Maintenance,10/05/21 17:40:00 EDT, Route to Pharmacy Electronically, [facility] #[id number], Partial fill upon patient request if the prescription is for a sc... Start Date: 10/05/21 Status: Ordered QUEtiapine 400 mg oral tablet, extended release 400 mg, 1, tablet, By Mouth, Daily in PM, # 90 tablet, Refills 1, Tot. Refills 1, Maintenance, 10/05/21 17:36:00 EDT, Route to Pharmacy Electronically, [facility] #[id number], Partial fill upon patient request if the [...] 10/05/21 17:36:00 EDT, Route to Pharmacy Electronically, [facility] #[id number], Partial fillupon patient request if the prescription [...]
--- OUTSIDE RECORDS SUMMARY | 2023-12-30 13:02 | XMS_ITS | Continuity of Care Document ---
Author Organization [facility] Kunal Aldair lt Address [address] [place] [address]- Care Team Providers Care Aligner Barrel And Receiver Name Role Phone Maria Esther URIAS, Balaji Quick Primary Care Physician [phone] Encounter [facility] Date(s): 03/21/23 - 04/20/23 [facility] Kunal Adult [address] [place] [address]- Allergies, Adverse Reactions, Alerts Substance Reaction Severity [...] 23-valent vaccine 12/17/12 Recorded 1Result Comment: [02/15/2018] 71118-676-64 2Result Comment: [id number] 3Result Comment: [08/02/2017] [facility] 49679-847-38 Medications Aspirin Low Dose 81 mg oral delayed release tablet 1 tablet, By Mouth, Daily, # 90 tablet, 3 Refills, Maintenance, 11/08/22 11:19:00 EDT, [facility] #[id number], 184, cm, 11/03/22 11:28:00 EDT, Height, 106.3, kg, 09/13/22 12:30:00 EDT, Dry Weight Start Date: 11/08/22 Status: Ordered atorvastatin 80 mg oral tablet 1 tablet = 80 mg, By Mouth, Daily, # 90 tablet, 3 Refills, Maintenance, 12/05/22 4:30:00 EDT, Tablet, [facility] #[id number], Partial fill upon patient request if the prescription is for a schedule II opioid drug., 183, cm, 11/10/22 17:28:00 EDT,... Start Date: 12/05/22 Status: Ordered BuPROPion (Eqv-Wellbutrin SR) 150 mg/12 hours oral tablet, extended release 1 tablet = 150 mg, By Mouth, 2 times a day, # 180 tablet, 3 Refills, Maintenance, 10/05/21 17:37:00EDT, SR Tablet, [facility] #[id number], Partial fill upon patient request if the prescription is for a schedule II opioid drug., 182, cm, 09/10/21... Start Date: 10/05/21 Status: Ordered clopidogrel 75 mg oral tablet 1, tablet, By Mouth, Daily, # 90 tablet, Refills 3, Maintenance, 01/13/23 16:50:00 EDT, Route to Pharmacy Electronically, [facility] #[id number], 183, cm, 12/05/22 16:08:00 EDT, Height, 106.3, kg, 09/13/22 12:30:00 EDT, Dry Weight Start Date: 01/13/23 Status: Ordered Flonase 50 mcg/inh nasal spray 1 sprays = 50 mcg, Nares, Both, 2 times a day, # 16 Gm, 5 Refills, Maintenance, 09/15/22 8:26:00 EDT, Nasal [place], [facility] #[id number], Partial fill upon patient request if the prescription is for a schedule II opioid drug., 1 sprays Nares, Tolu... Start Date: 09/15/22 Status: Ordered FLUoxetine 40 mg oral capsule 1 capsule = 40 mg, By Mouth, Daily, # 90 capsule, 3 Refills, Maintenance, 10/05/21 17:34:00 EDT, Capsule, [facility] #[id number], Partial fill upon patient request if the [...] 11 Refills, Maintenance, 11/30/22 6:36:00 EDT, Tablet, [facility] #[id number], Partial fill upon patient requestif the prescription [...] capsule, 1 Refills, Maintenance, 09/28/22 9:21:00 EDT, [facility] #[id number], Partial fill upon patient request if the [...] 10/05/21 17:36:00 EDT, Route to Pharmacy Electronically, [facility] #[id number], Partial fillupon patient request if the prescription [...] Personnel Name: Wild Woods RN Position: [facility] ED RN W/OE and Tasks Member Role: Primary Care Nurse Name: Esme Garcia RN Position: [facility] RN Member Role: Primary Care Nurse Name: Erich Dias RN Position: [facility] RN Member Role: Primary Care Nurse Name: Camila Vazquez RN Position: [facility] RN Member Role: Primary Care Nurse Name: Taylor Beck RN Position: [facility] RN Member Role: Primary Care Nurse Name: Amanda Garibay RN Position: [facility] RN Member Role: Primary Care Nurse Name: Mary Roberson RN Position: [facility] RN Member Role: Primary Care Nurse Name: Tomas Stauffer RN Position: [facility] RN Member Role: Primary Care Nurse Name: Balaji Mayo MD Position: [facility] Physician - Primary Care Member Role: PCP Address: Address: [address] [place] [address] [place] [address]- [place] Care Team Related Persons Name: ROSANA NAGY Address: home [address] [place] [address] Name: GORAN QUINTERO
--- OUTSIDE RECORDS SUMMARY | 2023-12-30 13:02 | XMS_ITS | Continuity of Care Document ---
Author Organization [facility] Address [address] [place] [address]- Care Team Providers Care Personnel Representative Name Role Phone Maria Esther URIAS, Balaji Quick Primary Care Physician [phone] [place] [facility] [place]/17[place]20 - 10/15/20 [facility] [address] [place], [place] [address] Attending Physician: Rose HYATT, Key Han [...] acel(Tdap) 2 08/02/17 Given 1Result Comment: [02/15/2018] 13945-287-33 2Result Comment: [08/02/2017] [facility] 85195-547-07 Medications amLODIPine 5 mg oral tablet 2.5 [...] 09/14/20 12:44:00 EDT, Route to Pharmacy Electronically, [facility] #[id number], 180, cm, 09/07/20 10:33:00 EDT, Height Start Date: 09/14/20 Status: Ordered Flonase 50 mcg/inh nasal spray 1 sprays = 50 mcg, Nares, Both, 2 times a day, # 16 Gm, 5 Refills, Maintenance, 09/29/20 16:49:00 EDT, Nasal [place], [facility] #[id number], Partial fill upon patient request if the [...] 09/13/20 6:59:00 EDT, Route to Pharmacy Electronically, [facility] #[id number], Partial fill upon patient request if the [...] tablet, 0 Refills, Maintenance, 09/14/20 12:44:00 EDT, [facility] #[id number], 180, cm, 09/07/20 10:33:00 EDT, Height Start [...] Maintenance, :58:00 EDT, [id number], Partial fill upon patient request if the [...]
--- OUTSIDE RECORDS SUMMARY | 2023-12-30 13:02 | XMS_ITS | Continuity of Care Document ---
Author Organization [facility] Kunal Aldair Address [address] [place] [address]- Care Team Providers Care Personal Service Workers Name Role Phone Balaji Mayo MD Primary Care Physician [phone] [place] [facility] [place](s): 12/03/19 - 12/10/19 [facility] Adult [address] [place] [address]- [facility] Attending Physician: Balaji Mayo MD Allergies, Adverse Reactions, Alerts Substance Reaction Severity Status Claritin Active Clozaril Active Benadryl Active Nuts Active Nicotine Patch Active Abilify Active Vistaril Active Immunizations Given and Recorded Vaccine Date Status Refusal Reason influenza virus vaccine, inactivated 01/29/19 Give n influenza virus vaccine, inactivated 1 02/15/18 Gi juan tetanus/diphtheria/pertussis, acel(Tdap) 2 08/02/17 Given 1Result Comment: [02/15/2018] 72275-433-57 2Result Comment: [08/02/2017] [facility] 12991-103-37 Medications amLODIPine 5 mg oral tablet 5 mg, 1, tablet, By Mouth, Daily, # 90 tablet, Refills 3, Tot. Refills 3, Maintenance, 11/26/19 16:38:00 EDT, Route to Pharmacy Electronically, [facility]/pharmacy #[id number], 180, cm, 06/26/19 8:31:00 EST, Height Start Date: 11/26/19 Status: Ordered Aspirin Tablet 81 mg, By Mouth, Daily, Maintenance, 04/15/13 17:02:08 Start Date: 04/15/13 Status: Ordered atorvastatin 80 mg oral tablet 1 tablet = 80 mg, By Mouth, Daily in AM, # 90 tablet, 1 Refills, Maintenance, 11/19/19 15:39:00 EDT, Tablet, [facility]/pharmacy #[id number], 180, cm, 06/26/19 8:31:00 EST, Height, [...] TAKE 1 TABLET BY MOUTH EVERY DAY, [facility]/pharmacy #[id number] Start Date: 03/14/19 Status: Ordered cyclobenzaprine 5 mg oral tablet 1 tablet = 5 mg, By Mouth, 2 times a day, PRN as needed for muscle spasm, # 60 tablet, 2 Refills, Maintenance, 04/07/19 18:48:10 EST, Tablet, [facility]/pharmacy #[id number], 180, cm, 01/29/19 9:22:52 EDT, Height, [...] 10/24/19 18:11:00 EDT, Route to Pharmacy Electronically, [facility]/pharmacy #[id number], 180, cm, 06/26/19 8:31:00 EST, Height Start Date: 10/24/19 Status: Ordered Flomax 0.4 mg oral capsule 0.4 mg, 1, capsule, By Mouth, Daily, # 30 capsule, Refills 11, Tot. Refills 11, Maintenance, 04/20/18 9:51:29 EST, Route to Pharmacy Electronically, [id number], [facility]/pharmacy#[id number] Start Date: 04/20/18 Status: Ordered Flonase 50 mcg/inh nasal spray 2 sprays, Nares, Both, 2 times a day, # 16 Gm, 0 Refills, Maintenance, 11/16/18 10:23:39 EDT, [place] Start Date: 11/16/18 Status: Ordered isosorbide mononitrate 30 mg oral tablet, extended release 30 mg, 1, tablet, By Mouth, Daily in AM, # 90 tablet, Refills 1, Tot. Refills 1, Maintenance, 04/25/19 15:31:00 EST, Route to Pharmacy Electronically, [facility]/pharmacy #[id number], 180, cm, 01/29/19 9:22:00 EDT, Height, [...] 30 patch,5 Refills, Maintenance, 06/26/19 9:19:00 EST, [facility]/pharmacy #[id number], Apply to affected area Topically Daily; remove patches after 12 hours, 180, cm, 03/0... Start Date: 06/26/19 Status: Ordered metoprolol 25 mg oral tablet 25 mg, 1, tablet, By Mouth, 2 times a day, # 60 tablet, Refills 5, Tot. Refills 5, Maintenance, 09/18/19 16:23:00 EDT, Route to Pharmacy Electronically, [facility]/pharmacy #[id number], 180, cm, 06/26/19 8:31:00 EST, Height, [...] Tubular adenoma of colon(Confirmed) 3 06/25/18 Active / Xience NIKKI x 2 to proximal LAD 2L side, by duplex 3repeat screening colonoscopy in 2021 Vital Signs Most recent to oldest [Reference Range]: 1 Height 180 cm (12/03/19 1:50 PM) Weight 110.4 kg (12/03/19 1:50 PM) Oxygen Saturation [94-100 %] 98 % (12/03/19 1:50 PM) Pulse Rate [55-90 bpm] 67 bpm (12/03/19 1:50 PM) Body Mass Index [18.5-24.99] 34.07 *>HHI* (12/03/19 1:50 PM) Blood Pressure [90-138/55-84 mm Hg] 124/ 80mm Hg (12/03/19 1:50 PM) Temperature [96.8-100.4 DegF] 97.9 DegF (12/03/19 1:50 PM) Mode of Delivery (Oxygen) Room air (12/03/19 1:50 PM) Blood pressure sites Arm, left (12/03/19 1:50 PM) Temperature Route Oral (12/03/19 1:50 PM) Weight Obtained Via Standing scale (12/03/19 1:50 PM) Social History Social History Type Response Smoking Status Current some day smo ker entered on: 02/15/18 Sex
--- OUTSIDE RECORDS SUMMARY | 2023-12-30 13:02 | XMS_ITS | Continuity of Care Document ---
Author Organization [facility] Rico Syed Aldair lt Address [address] [place] [address]- Care Team Providers Care Litigation Associate Name Role Phone Maria Esther URIAS, Balaji Quick Primary Care Physician [facility]counter [facility] Date(s): 07/26/22 - 08/25/22 [facility] Rico Syed Adult [address] [place] [address]- Allergies, Adverse Reactions, Alerts Substance Reaction Severity [...] pneumococcal 23-valent vaccine 12/17/12 Recorded 1Result Comment: [id number] 2Result Comment: [02/15/2018] 98523-512-19 3Result Comment: [08/02/2017] [facility] 53307-470-68 Medications aspirin 81 mg oral delayed release tablet = 81 mg, By Mouth, Daily, # 90 tablet, 3 Refills, Maintenance, 10/05/21 17:34:00 EDT, EC Tablet, [facility] #[id number], Partial fill upon patient request if the prescription is for a schedule II opioid drug., 182, cm, 09/10/21 8:13:00 EDT, Heigh... Start Date: 10/05/21 Status: Ordered atorvastatin 80 mg oral tablet 1 tablet = 80 mg, By Mouth, Daily, # 90 tablet, 3 Refills, Maintenance, 10/05/21 17:34:00 EDT, Tablet, [facility] #[id number], Partial fill upon patient request if the prescription is for a schedule II opioid drug., 182, cm, 09/10/21 8:13:00 EDT,... Start Date: 10/05/21 Status: Ordered BuPROPion (Eqv-Wellbutrin SR) 150 mg/12 hours oral tablet, extended release 1 tablet = 150 mg, By Mouth, 2 times a day, # 180 tablet, 3 Refills, Maintenance, 10/05/21 17:37:00EDT, SR Tablet, [facility] #[id number], Partial fill upon patient request if the prescription is for a schedule II opioid drug., 182, cm, 09/10/21... Start Date: 10/05/21 Status: Ordered clopidogrel 75 mg oral tablet 1, tablet, By Mouth, Daily, # 90 tablet, Refills 3, Tot. Refills 3, Maintenance, 10/05/21 17:34:00 EDT, Route to Pharmacy Electronically, [facility] #[id number], 182, cm, 09/10/21 8:13:00 EDT, Height, 102.7, kg, 09/08/21 16:41:00 EDT, Dry Weight Start Date: 10/05/21 Status: Ordered Flonase 50 mcg/inh nasal spray 1 sprays = 50 mcg, Nares, Both, 2 times a day, # 16 Gm, 5 Refills, Maintenance, 09/29/20 16:49:00 EDT, Nasal [place], [facility] #[id number], Partial fill upon patient request if the [...] 3 Refills, Maintenance, 10/05/21 17:34:00 EDT, Capsule, [facility] #[id number], Partial fill upon patient request if the prescription is for a schedule II opioid drug., 182, cm, 09/10/21 8:13:00 E... Start Date: 10/05/21 Status: Ordered isosorbide mononitrate 30 mg oral tablet, extended release 1 tablet = 30 mg, By Mouth, Daily in AM, # 90 tablet, 3 Refills, 10/05/21 17:35:00 EDT, [facility] #[id number], 182, cm, 09/10/21 8:13:00 EDT, Height, 102.7, kg, 09/08/21 16:41:00 EDT, Dry Weight Start Date: 10/05/21 Status: Ordered lamotrigine 25 mg oral tablet 100 mg, 4, tablet, By Mouth, 2 times a day, # 720 tablet, Refills 3, Tot. Refills 3, Maintenance, 10/06/21 14:57:00 EDT, Route to Pharmacy Electronically, [facility] #[id number], Partial fill upon patient request if the prescription is for a sche... Start Date: 10/06/21 Stop Date: 10/01/22 Status: Ordered lidocaine 5% topical film 1 patch, Topically, Daily, PRN Pain , Mild, remove after 12 hours, # 30 patch, 11 Refills, Maintenance, 02/20/21 7:32:00 EDT, Patch, [facility], Partial fill upon patient request if the prescription is for a schedule II opioid drug., 1 patch T... Start Date: 02/20/21 Status: Ordered metoprolol 25 mg oral tablet 25 mg, 1, tablet, By Mouth, 2 times a day, increase in dose, # 60 tablet, Refills 2, Tot. Refills 2, Maintenance, 06/06/22 14:13:00 EST, Route to Pharmacy Electronically, [facility] #[id number],Partial fill upon patient request if the prescripti... [...] 10/05/21 17:36:00 EDT, Route to Pharmacy Electronically, [facility] #[id number], Partial fillupon patient request if the prescription [...] Team Personnel Name: Wild Woods RN Position: [facility] ED RN W/OE and Tasks Member Role: Primary Care Nurse Name: Camila Vazquez RN Position: [facility] RN Member Role: Primary Care Nurse Name: Amanda Garibay RN Position: [facility] RN Member Role: Primary Care Nurse Name: Mary Roberson RN Position: [facility] RN Member Role: Primary Care Nurse Name: Tomas Stauffer RN Position: [facility] RN Member Role: Primary Care Nurse Name: Balaji Mayo MD Position: [facility] Primary Care Physician Member Role: PCP Address: Address: [address] [place] [address]- [place] Care Team Related Persons Name: ROSANA NAGY Address: [address] [address] Name: GORAN QUINTERO
--- OUTSIDE RECORDS SUMMARY | 2023-12-30 13:02 | XMS_ITS | Continuity of Care Document ---
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 Name Role Phone Maria Esther URIAS, Balaji Quick Primary Care Physician [facility]counter [facility] Date(s): 08/23/23 - 09/22/23 [facility] [address] [place], [place] [address] Allergies, Adverse Reactions, Alerts [...] 23-valent vaccine 12/17/12 Recorded 1Result Comment: [02/15/2018] 28199-773-01 2Result Comment: [id number] 3Result Comment: [08/02/2017] [facility] 61339-498-60 Medications Aspirin Low Dose 81 mg oral delayed release tablet 1 tablet, By Mouth, Daily, # 90 tablet, 3 Refills, Maintenance, 11/08/22 11:19:00 EDT, [facility] #[id number], 184, cm, 11/03/22 11:28:00 EDT, Height, 106.3, kg, 09/13/22 12:30:00 EDT, Dry Weight Start Date: 11/08/22 Status: Ordered atorvastatin 80 mg oral tablet 1 tablet = 80 mg, By Mouth, Daily, # 90 tablet, 3 Refills, Maintenance, 08/18/23 16:03:00 EDT, Tablet, [facility] #[id number], Partial fill upon patient request if the prescription is for a schedule II opioid drug., 183, cm, 08/09/23 10:49:00 EDT... Start Date: 08/18/23 Status: Ordered BuPROPion (Eqv-Wellbutrin SR) 150 mg/12 hours oral tablet, extended release 1 tablet = 150 mg, By Mouth, 2 times a day, # 180 tablet, 3 Refills, Maintenance, 10/05/21 17:37:00EDT, SR Tablet, [facility] #[id number], Partial fill upon patient request if the prescription is for a schedule II opioid drug., 182, cm, 09/10/21... Start Date: 10/05/21 Status: Ordered clopidogrel 75 mg oral tablet 1, tablet, By Mouth, Daily, # 90 tablet, Refills 3, Tot. Refills 3, Maintenance, 08/18/23 16:03:00 EDT, Route to Pharmacy Electronically, [facility] #[id number], 183, cm, 08/09/23 10:49:00 EDT, Height, 107, kg, 01/26/23 19:57:00 EDT, Dry Weight Start Date: 08/18/23 Status: Ordered FLUoxetine 40 mg oral capsule 1 capsule = 40 mg, By Mouth, Daily, # 90 capsule, 3 Refills, Maintenance, 10/05/21 17:34:00 EDT, Capsule, [facility] #[id number], Partial fill upon patient request if the prescription is for a schedule II opioid drug., 182, cm, 09/10/21 8:13:00 E... Start Date: 10/05/21 Status: Ordered fluticasone 50 mcg/inh nasal spray 1 sprays = 50 mcg, Nares, Both, 2 times a day, PRN allergies, # 16 Gm, 11 Refills, Maintenance, 08/18/23 16:05:00 EDT, May, [facility] #[id number], Partial fill upon patient request if the [...] 11 Refills, Maintenance, 08/18/23 16:04:00 EDT, Tablet, [facility] #[id number], Partial fill upon patient request if the prescription is for a schedule II opioid dr... Start Date: 08/18/23 Status: Ordered Norvasc 2.5 mg oral tablet 2.5 mg, 1, tablet, By Mouth, Daily, # 90 tablet, Refills 3, Tot. Refills 3, Maintenance, 08/18/23 16:02:00 EDT, Route to Pharmacy Electronically, [facility] #[id number], Partial fill upon patient request if the prescription is for a schedule II o... Start Date: 08/18/23 Status: Ordered omeprazole 20 mg oral enteric coated capsule 1 capsule = 20 mg, By Mouth, Daily, # 90 capsule, 3 Refills, Maintenance, 08/18/23 16:04:00 EDT, [facility] #[id number], Partial fill upon patient request if the [...] 08/18/23 16:01:00 EDT, Route to Pharmacy Electronically, [facility] #[id number] Tablet, Partial fill upon ani... Start Date: 08/18/23 Stop Date: 08/17/24 Status: Ordered traZODone 100 mg oral tablet 200 mg, 2, tablet, By Mouth, Daily at bedtime, # 180 tablet, Refills 3, Tot. Refills 3, Maintenance, 10/05/21 17:36:00 EDT, Route to Pharmacy Electronically, [facility] #[id number], Partial fillupon patient request if the prescription [...] Team Personnel Name: Wild Woods RN Position: [facility] ED RN W/OE and Tasks Member Role: Primary Care Nurse Name: Esme Garcia RN Position: [facility] RN Member Role: Primary Care Nurse Name: Erich Dias RN Position: [facility] RN Member Role: Primary Care Nurse Name: Camila Vazquez RN Position: [facility] RN Member Role: Primary Care Nurse Name: Taylor Beck RN Position: [facility] RN Member Role: Primary Care Nurse Name: Amanda Moraes RN Position: [facility] RN Member Role: Primary Care Nurse Name: Mary Roberson RN Position: [facility] RN Member Role: Primary Care Nurse Name: Tomas Stauffer RN Position: [facility] RN Member Role: Primary Care Nurse Name: Balaji Mayo MD Position: [facility] Physician - Primary Care Member Role: PCP Address: Address: [address] [place] [address]- [place] Care Team Related Persons Name: ROSANA NAGY Address: home [address] [place] [id number] Name: GORAN QUINTERO
--- OUTSIDE RECORDS SUMMARY | 2023-12-30 13:02 | XMS_ITS | Continuity of Care Document ---
Author Organization [facility] Address [address] [place] [address]- Care Team Providers Care It Sales Executive Name Role Phone Maria Esther URIAS, Balaji Quick Primary Care Physician [place] [facility] [place] - 05/14/[address] [address] Attending Physician: Admtr, Bertha Admitting Physician: Admtr, Ar8 Referring Physician: [...] pneumococcal 23-valent vaccine 12/17/12 Recorded 1Result Comment: [id number] 2Result Comment: [02/15/2018] [id number] 3Result Comment: [08/02/2017] [facility] 94190-836-99 Medications aspirin 81 mg oral delayed release tablet = 81 mg, By Mouth, Daily, # 90 tablet, 3 Refills, Maintenance, 10/05/21 17:34:00 EDT, EC Tablet, [facility] #[id number], Partial fill upon patient request if the prescription is for a schedule II opioid drug., 182, cm, 09/10/21 8:13:00 EDT, Heigh... Start Date: 10/05/21 Status: Ordered atorvastatin 80 mg oral tablet 1 tablet = 80 mg, By Mouth, Daily, # 90 tablet, 3 Refills, Maintenance, 10/05/21 17:34:00 EDT, Tablet, [facility] #[id number], Partial fill upon patient request if the prescription is for a schedule II opioid drug., 182, cm, 09/10/21 8:13:00 EDT,... Start Date: 10/05/21 Status: Ordered BuPROPion (Eqv-Wellbutrin SR) 150 mg/12 hours oral tablet, extended release 1 tablet = 150 mg, By Mouth, 2 times a day, # 180 tablet, 3 Refills, Maintenance, 10/05/21 17:37:00EDT, SR Tablet, [facility] #[id number], Partial fill upon patient request if the prescription is for a schedule II opioid drug., 182, william, 09/10/21... Start Date: 10/05/21 Status: Ordered clopidogrel 75 mg oral tablet 1, tablet, By Mouth, Daily, # 90 tablet, Refills 3, Tot. Refills 3, Maintenance, 10/05/21 17:34:00 EDT, Route to Pharmacy Electronically, [facility] #[id number], 182, cm, 09/10/21 8:13:00 EDT, Height, 102.7, kg, 09/08/21 16:41:00 EDT, Dry Weight Start Date: 10/05/21 Status: Ordered Flonase 50 mcg/inh nasal spray 1 sprays = 50 mcg, Nares, Both, 2 times a day, # 16 Gm, 5 Refills, Maintenance, 09/29/20 16:49:00 EDT, Nasal [place], [facility] #[id number], Partial fill upon patient request if the prescription is for a schedule II opioid drug., 1 sprays [place], B... Start Date: 09/29/20 Status: Ordered FLUoxetine 40 mg oral capsule 1 capsule = 40 mg, By Mouth, Daily, # 90 capsule, 3 Refills, Maintenance, 10/05/21 17:34:00 EDT, Capsule, [facility] #[id number], Partial fill upon patient request if the prescription is for a schedule II opioid drug., 182, cm, 09/10/21 8:13:00 E... Start Date: 10/05/21 Status: Ordered isosorbide mononitrate 30 mg oral tablet, extended release 1 tablet = 30 mg, By Mouth, Daily in AM, # 90 tablet, 3 Refills, 10/05/21 17:35:00 EDT, [facility] #[id number], 182, cm, 09/10/21 8:13:00 EDT, Height, 102.7, kg, 09/08/21 16:41:00 EDT, Dry Weight Start Date: 10/05/21 Status: Ordered lamotrigine 25 mg oral tablet 100 mg, 4, tablet, By Mouth, 2 times a day, # 720 tablet, Refills 3, Tot. Refills 3, Maintenance, 10/06/21 14:57:00 EDT, Route to Pharmacy Electronically, [facility] #[id number], Partial fill upon patient request if the prescription is for a sche... Start Date: 10/06/21 Stop Date: 10/01/22 Status: Ordered lidocaine 5% topical film 1 patch, Topically, Daily, PRN Pain , Mild, remove after 12 hours, # 30 patch, 11 Refills, Maintenance, 02/20/21 7:32:00 EDT, Patch, [facility], Partial fill upon patient request if the prescription is for a schedule II opioid drug., 1 patch T... Start Date: 02/20/21 Status: Ordered metoprolol 25 mg oral tablet 25 mg, 1, tablet, By Mouth, 2 times a day, increase in dose, # 60 tablet, Refills 5, Tot. Refills 5, Maintenance, 04/28/22 7:37:00 EST, Route to Pharmacy Electronically, [facility], Partial fill upon patient request if the prescription is for... Start Date: 04/28/22 Status: Ordered traZODone 100 mg oral tablet 200 mg, 2, tablet, By Mouth, Daily at bedtime, # 180 tablet, Refills 3, Tot. Refills 3, Maintenance, 10/05/21 17:36:00 EDT, [id number], Partial fillupon patient request if the prescription [...] Team Personnel Name: Wild Woods RN Position: [facility] ED RN W/OE and Tasks Member Role: Primary Care Nurse Name: Camila Vazquez RN Position: [facility] RN Member Role: Primary Care Nurse Name: Amanda Garibay RN Position: [facility] RN Member Role: Primary Care Nurse Name: Mary Roberson RN Position: [facility] RN Member Role: Primary Care Nurse Name: Tomas Stauffer RN Position: [facility] RN Member Role: Primary Care Nurse Name: Balaji Mayo MD Position: [facility] Primary Care Physician Member Role: PCP Address: Address: [address] [place] [address]- Name: Pattie Oates RN Position: S RN Member Role: Primary Care Nurse Care Team Related Persons Name: ROSANA NAGY Address: home [address] [place] [phone] Name: GORAN QUINTERO
--- OUTSIDE RECORDS SUMMARY | 2023-12-30 13:02 | XMS_ITS | Continuity of Care Document ---
Author Organization [facility] Address Unknown Care Team Providers Care Electronics Commodity Manager Name Role Phone Maria Esther URIAS, Balaji Quick Primary Care Physician [phone] [place]counter [facility] [place] Date(s): 02/17/21 - 03/19/21 [facility] Attending Physician: Bertha Fried Admitting Physician: AdmBertha brown Referring Physician: Bertha Fried Allergies, Adverse Reactions, Alerts Substance Reaction Severity [...] 23-valent vaccine 12/17/12 Recorded 1Result Comment: [02/15/2018] 59794-645-89 2Result Comment: [08/02/2017] [facility] 57155-219-27 Medications amLODIPine 5 mg oral tablet 2.5 [...] Refills, Maintenance, 02/18/21 9:19:00 EDT, EC Tablet, [facility], Partial fill upon patient [...] 09/14/20 12:44:00 EDT, Route to Pharmacy Electronically, [facility] #[id number], 180, cm, 09/07/20 10:33:00 EDT, Height Start Date: 09/14/20 Status: Ordered Flonase 50 mcg/inh nasal spray 1 sprays = 50 mcg, Nares, Both, 2 times a day, # 16 Gm, 5 Refills, Maintenance, 09/29/20 16:49:00 EDT, Nasal [place], [facility] #[id number], Partial fill upon patient request if the [...] 09/13/20 6:59:00 EDT, Route to Pharmacy Electronically, [facility] #[id number], Partial fill upon patient request if the [...] 11 Refills, Maintenance, 02/20/21 7:32:00 EDT, Patch, [facility], Partial fill upon patient request if the prescription is for a schedule II opioid drug., 1 patch T... Start Date: 02/20/21 Status: Ordered Metoprolol Tartrate 25 mg oral tablet 1 tablet, By Mouth, 2 times a day, # 180 tablet, 0 Refills, Maintenance, 09/14/20 12:44:00 EDT, [facility] #[id number], 180, cm, 09/07/20 10:33:00 EDT, Height Start [...] Maintenance, :58:00 EDT, [id number], Partial fill upon patient request if the [...]
--- OUTSIDE RECORDS SUMMARY | 2023-12-30 13:02 | XMS_ITS | Continuity of Care Document ---
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 Role Phone Maria Esther URIAS, Balaji Quick Primary Care Physician [facility] Date(s): 01/05/23 - 02/04/23 [facility] Adult [address] [place] [address]- Allergies, Adverse Reactions, Alerts Substance Reaction Severity [...] 23-valent vaccine 12/17/12 Recorded 1Result Comment: [02/15/2018] 86737-263-61 2Result Comment: [id number] 3Result Comment: [08/02/2017] [facility] 27948-577-97 Medications Aspirin Low Dose 81 mg oral delayed release tablet 1 tablet, By Mouth, Daily, # 90 tablet, 3 Refills, Maintenance, 11/08/22 11:19:00 EDT, [facility] #[id number], 184, cm, 11/03/22 11:28:00 EDT, Height, 106.3, kg, 09/13/22 12:30:00 EDT, Dry Weight Start Date: 11/08/22 Status: Ordered atorvastatin 80 mg oral tablet 1 tablet = 80 mg, By Mouth, Daily, # 90 tablet, 3 Refills, Maintenance, 12/05/22 4:30:00 EDT, Tablet, [facility] #[id number], Partial fill upon patient request if the prescription is for a schedule II opioid drug., 183, cm, 11/10/22 17:28:00 EDT,... Start Date: 12/05/22 Status: Ordered BuPROPion (Eqv-Wellbutrin SR) 150 mg/12 hours oral tablet, extended release 1 tablet = 150 mg, By Mouth, 2 times a day, # 180 tablet, 3 Refills, Maintenance, 10/05/21 17:37:00EDT, SR Tablet, [facility] #[id number], Partial fill upon patient request if the prescription is for a schedule II opioid drug., 182, cm, 09/10/21... Start Date: 10/05/21 Status: Ordered clopidogrel 75 mg oral tablet 1, tablet, By Mouth, Daily, # 90 tablet, Refills 3, Maintenance, 01/13/23 16:50:00 EDT, Route to Pharmacy Electronically, [facility] #[id number], 183, cm, 12/05/22 16:08:00 EDT, Height, 106.3, kg, 09/13/22 12:30:00 EDT, Dry Weight Start Date: 01/13/23 Status: Ordered Flonase 50 mcg/inh nasal spray 1 sprays = 50 mcg, Nares, Both, 2 times a day, # 16 Gm, 5 Refills, Maintenance, 09/15/22 8:26:00 EDT, Nasal [place], [facility] #[id number], Partial fill upon patient request if the prescription is for a schedule II opioid drug., 1 sprays [place], [place]... Start Date: 09/15/22 Status: Ordered FLUoxetine 40 mg oral capsule 1 capsule = 40 mg, By Mouth, Daily, # 90 capsule, 3 Refills, Maintenance, 10/05/21 17:34:00 EDT, Capsule, [facility] #[id number], Partial fill upon patient request if the [...] 11 Refills, Maintenance, 11/30/22 6:36:00 EDT, Tablet, [facility] #[id number], Partial fill upon patient requestif the prescription is for a schedule II opioid lisa... Start Date: 11/30/22 Status: Ordered omeprazole 20 mg oral enteric coated capsule 1 capsule = 20 mg, By Mouth, Daily, # 30 capsule, 1 Refills, Maintenance, 09/28/22 9:21:00 EDT, [facility] #[id number], Partial fill upon patient request if the [...] 10/05/21 17:36:00 EDT, Route to Pharmacy Electronically, [facility] #[id number], Partial fillupon patient request if the prescription [...] Team Personnel Name: Wild Woods RN Position: [facility] ED RN W/OE and Tasks Member Role: Primary Care Nurse Name: Esme Garcia RN Position: [facility] RN Member Role: Primary Care Nurse Name: Erich Dias RN Position: [facility] RN Member Role: Primary Care Nurse Name: Camila Vazquez RN Position: [facility] RN Member Role: Primary Care Nurse Name: Taylor Beck RN Position: [facility] RN Member Role: Primary Care Nurse Name: Amanda Garibay RN Position: [facility] RN Member Role: Primary Care Nurse Name: Mary Roberson RN Position: [facility] RN Member Role: Primary Care Nurse Name: Tomas Stauffer RN Position: [facility] RN Member Role: Primary Care Nurse Name: Balaji Mayo MD Position: [facility] Physician - Primary Care Member Role: PCP Address: Address: [address] [place] [address]- [place] Name: Lashell Mcclelland RN Position: [facility] RN Member Role: Primary Care Nurse Name: Fadumo Conti RN Position: [facility] RN Member Role: Primary Care Nurse Care Team Related Persons Name: ROSANA NAGY Address: home [address] [place] [id number] Name: GORAN QUINTERO
--- OUTSIDE RECORDS SUMMARY | 2023-12-30 13:02 | XMS_ITS | Continuity of Care Document ---
Author Organization [facility] Kunal Aldair Address [address] [place] [address]- Care Team Providers Care Etl Application Developer Name Role Phone Maria Esther URIAS, Balaji Quick Primary Care Physician Encounter [facility] [place] Date(s): 10/14/20 - 11/13/20 [facility] Adult [address] [place] [address]- Allergies, Adverse Reactions, Alerts Substance Reaction Severity [...] acel(Tdap) 2 08/02/17 Given 1Result Comment: [02/15/2018] 24147-548-91 2Result Comment: [08/02/2017] [facility] 70547-436-88 Medications amLODIPine 5 mg oral tablet 2.5 [...] 09/14/20 12:44:00 EDT, Route to Pharmacy Electronically, [facility] #[id number], 180, cm, 09/07/20 10:33:00 EDT, Height Start Date: 09/14/20 Status: Ordered Flonase 50 mcg/inh nasal spray 1 sprays = 50 mcg, Nares, Both, 2 times a day, # 16 Gm, 5 Refills, Maintenance, 09/29/20 16:49:00 EDT, Nasal [place], [facility] #[id number], Partial fill upon patient request if the [...] 09/13/20 6:59:00 EDT, Route to Pharmacy Electronically, [facility] #[id number], Partial fill upon patient request if the [...] tablet, 0 Refills, Maintenance, 09/14/20 12:44:00 EDT, [facility] #[id number], 180, cm, 09/07/20 10:33:00 EDT, Height Start [...] Maintenance, :58:00 EDT, Route to Pharmacy Electronically, [facility] #[id number], Partial fill upon patient request if the [...]
--- OUTSIDE RECORDS SUMMARY | 2023-12-30 13:02 | XMS_ITS | Continuity of Care Document ---
Author Organization [facility] Kunal Aldair lt Address [address] [place] [address]- Care Team Providers Care Steel Plate Caulker Name Role Phone Balaji Mayo MD Primary Care Physician [facility] Date[facility]s): 12/20/21 - 12/27/21 [facility] [place] [address] [place] [address]- Attending Physician: Balaji Mayo MD Allergies, Adverse [...] pneumococcal 23-valent vaccine 12/17/12 Recorded 1Result Comment: [id number] 2Result Comment: [02/15/2018] [id number] 3Result Comment: [08/02/2017] [facility] [id number] Medications aspirin 81 mg oral delayed release tablet = 81 mg, By Mouth, Daily, # 90 tablet, 3 Refills, Maintenance, 10/05/21 17:34:00 EDT, EC Tablet, [facility] #[id number], Partial fill upon patient request if the prescription is for a schedule II opioid drug., 182, cm, 09/10/21 8:13:00 EDT, Heigh... Start Date: 10/05/21 Status: Ordered atorvastatin 80 mg oral tablet 1 tablet = 80 mg, By Mouth, Daily, # 90 tablet, 3 Refills, Maintenance, 10/05/21 17:34:00 EDT, Tablet, [facility] #[id number], Partial fill upon patient request if the prescription is for a schedule II opioid drug., 182, cm, 09/10/21 8:13:00 EDT,... Start Date: 10/05/21 Status: Ordered BuPROPion (Eqv-Wellbutrin SR) 150 mg/12 hours oral tablet, extended release 1 tablet = 150 mg, By Mouth, 2 times a day, # 180 tablet, 3 Refills, Maintenance, 10/05/21 17:37:00EDT, SR Tablet, [facility] #[id number], Partial fill upon patient request if the prescription is for a schedule II opioid drug., 182, cm, 09/10/21... Start Date: 10/05/21 Status: Ordered clopidogrel 75 mg oral tablet 1, tablet, By Mouth, Daily, # 90 tablet, Refills 3, Tot. Refills 3, Maintenance, 10/05/21 17:34:00 EDT, Route to Pharmacy Electronically, [facility] #[id number], 182, cm, 09/10/21 8:13:00 EDT, Height, 102.7, [...] 5 Refills, Maintenance, 09/29/20 16:49:00 EDT, Nasal [place], [facility] #[id number], Partial fill upon patient request if the prescription is for a schedule II opioid drug., 1 sprays Nares, B... Start Date: 09/29/20 Status: Ordered FLUoxetine 40 mg oral capsule 1 capsule = 40 mg, By Mouth, Daily, # 90 capsule, 3 Refills, Maintenance, 10/05/21 17:34:00 EDT, Capsule, [facility] #[id number], Partial fill upon patient request if the [...] 90 tablet, 3 Refills, 10/05/21 17:35:00 EDT, [facility] #[id number], 182, cm, 09/10/21 8:13:00 EDT, Height, 102.7, [...] 10/06/21 14:57:00 EDT, Route to Pharmacy Electronically, [facility] #[id number], Partial fill upon patient request if the [...] Maintenance,10/05/21 17:40:00 EDT, Route to Pharmacy Electronically, [facility] #[id number], Partial fill upon patient request if the prescription is for a sc... Start Date: 10/05/21 Status: Ordered QUEtiapine 400 mg oral tablet, extended release 400 mg, 1, tablet, By Mouth, Daily in PM, # 90 tablet, Refills 1, Tot. Refills 1, Maintenance, 10/05/21 17:36:00 EDT, Route to Pharmacy Electronically, [facility] #[id number], Partial fill upon patient request if the [...] 10/05/21 17:36:00 EDT, Route to Pharmacy Electronically, [facility] #[id number], Partial fillupon patient request if the prescription [...] [Reference Range]: 1 2 Height 182 cm (12/20/21 1:13 PM) 182 cm (12/20/21 1:06 PM) Weight 106.6 kg (12/20/21 1:06 PM) Oxygen Saturation [94-100 %] 97 % (12/20/21 1:06 PM) Pulse Rate [55-90 bpm] 78 bpm (12/20/21 1:06 PM) Body Mass Index [18.5-24.99] 32.18 *>HHI* (12/20/21 1:06 PM) Blood Pressure [90-138/55-84 mm Hg] 144/ 79mm Hg *H* (12/20/21 1:13 PM) 159/78mm Hg *H* (12/20/21 1:06 PM) Mode of Delivery (Oxygen) Room air (12/20/21 1:06 PM) Blood pressure sites Arm, left (12/20/21 1:13 PM) Arm, left (12/20/21 1:06 PM) Weight Obtained Via Standing scale (12/20/21 1:06 PM) Social History Social History Type Response Smoking Status Current some day smo ker entered on: 02/15/18 Sex Care Team Personnel Name: Maria Esther URIAS, Balaji Quick Address: [address] [place] [id number]- [place]
--- OUTSIDE RECORDS SUMMARY | 2023-12-30 13:03 | XMS_ITS | Continuity of Care Document ---
Author Organization [facility] Kunal Aldair lt Address [address] [place] [address]- Care Team Providers Care Wardsperson Name Role Phone Maria Esther URIAS, Balaji Quick Primary Care Physician [phone] [facility]counter [facility] Date(s): 04/07/23 - 05/07/23 [facility] [place] [address] [place] [address]- Allergies, Adverse Reactions, Alerts Substance Reaction Severity [...] 23-valent vaccine 12/17/12 Recorded 1Result Comment: [02/15/2018] [id number] 2Result Comment: [id number] 3Result Comment: [08/02/2017] [facility] [id number] Medications Aspirin Low Dose 81 mg oral delayed release tablet 1 tablet, By Mouth, Daily, # 90 tablet, 3 Refills, Maintenance, 11/08/22 11:19:00 EDT, [facility] #[id number], 184, cm, 11/03/22 11:28:00 EDT, Height, 106.3, kg, 09/13/22 12:30:00 EDT, Dry Weight Start Date: 11/08/22 Status: Ordered atorvastatin 80 mg oral tablet 1 tablet = 80 mg, By Mouth, Daily, # 90 tablet, 3 Refills, Maintenance, 12/05/22 4:30:00 EDT, Tablet, [facility] #[id number], Partial fill upon patient request if the prescription is for a schedule II opioid drug., 183, cm, 11/10/22 17:28:00 EDT,... Start Date: 12/05/22 Status: Ordered BuPROPion (Eqv-Wellbutrin SR) 150 mg/12 hours oral tablet, extended release 1 tablet = 150 mg, By Mouth, 2 times a day, # 180 tablet, 3 Refills, Maintenance, 10/05/21 17:37:00EDT, SR Tablet, [facility] #[id number], Partial fill upon patient request if the prescription is for a schedule II opioid drug., 182, cm, 09/10/21... Start Date: 10/05/21 Status: Ordered clopidogrel 75 mg oral tablet 1, tablet, By Mouth, Daily, # 90 tablet, Refills 3, Maintenance, 01/13/23 16:50:00 EDT, Route to Pharmacy Electronically, [facility] #[id number], 183, cm, 12/05/22 16:08:00 EDT, Height, 106.3, kg, 09/13/22 12:30:00 EDT, Dry Weight Start Date: 01/13/23 Status: Ordered Flonase 50 mcg/inh nasal spray 1 sprays = 50 mcg, Nares, Both, 2 times a day, # 16 Gm, 5 Refills, Maintenance, 09/15/22 8:26:00 EDT, Nasal [place], [facility] #[id number], Partial fill upon patient request if the prescription is for a schedule II opioid drug., 1 sprays Nares, [place]... Start Date: 09/15/22 Status: Ordered FLUoxetine 40 mg oral capsule 1 capsule = 40 mg, By Mouth, Daily, # 90 capsule, 3 Refills, Maintenance, 10/05/21 17:34:00 EDT, Capsule, [facility] #[id number], Partial fill upon patient request if the [...] 11 Refills, Maintenance, 11/30/22 6:36:00 EDT, Tablet, [facility] #[id number], Partial fill upon patient requestif the prescription [...] capsule, 1 Refills, Maintenance, 09/28/22 9:21:00 EDT, [facility] #[id number], Partial fill upon patient request if the [...] 10/05/21 17:36:00 EDT, Route to Pharmacy Electronically, [facility] #[id number], Partial fillupon patient request if the prescription [...] Team Personnel Name: Wild Woods RN Position: [facility] ED RN W/OE and Tasks Member Role: Primary Care Nurse Name: Esme Garcia RN Position: [facility] RN Member Role: Primary Care Nurse Name: Erich Dias RN Position: [facility] RN Member Role: Primary Care Nurse Name: Camila Vazquez RN Position: [facility] RN Member Role: Primary Care Nurse Name: Taylor Beck RN Position: [facility] RN Member Role: Primary Care Nurse Name: Amanda Garibay RN Position: [facility] RN Member Role: Primary Care Nurse Name: Mary Roberson RN Position: [facility] RN Member Role: Primary Care Nurse Name: Tomas Stauffer RN Position: [facility] RN Member Role: Primary Care Nurse Name: Balaji Mayo MD Position: [facility] Physician - Primary Care Member Role: PCP Address: Address: [address] [place] [address] [place] [address]- [place] Care Team Related Persons Name: ROSANA NAGY Address: [address] [place] [address] Name: GORAN QUINTERO
[2023-12-30 13:11] LABS: Appearance Urine Clear; Color Urine Yellow; Glucose Urine UA Negative (Negative); Leukocyte Esterase Urine Negative (Negative); Nitrite Urine Negative (Negative); PH 8.5 (5.0-9.0); Urine Blood Negative (Negative); Urine Ketones Negative (Negative); Urine Protein Negative (Neg-Trace)
[2023-12-30 13:39] LABS: Erythrocyte Sedimentation Rate 42 MM/HR (0-15)
[2023-12-30 14:12] LABS: Reflex Lactate? Lactic Acid Added
[2023-12-30] MEDS: QUEtiapine Fumarate 50 MG TABLET PO (14:51)
[2023-12-30 14:59] LABS: ~Lactic Acid-LAB USE ONLY 2.3 mmol/L (0.5-2.0)
[2023-12-30] MEDS: 0.9 % Sodium Chloride 1,000 ML 999 ML IVCONT (15:27)
[2023-12-30] MEDS: Acetaminophen 325 MG TABLET 975 MG PO (15:35)
[2023-12-30] MEDS: amLODIPine Besylate 5 MG TABLET PO (16:23)
--- NOTE | 2023-12-30 16:28 | PC.NURSE ---
Late Entry: Pt BP decreased to 159/65. Per Susanne CALDERON, hold labetalol. Pt resting in bed quietly, NSR on shelter monitor HR-70s. Call guadarrama within reach, all needs met at this time.
--- NOTE | 2023-12-30 16:29 | PC.NURSE ---
Jessica called this RN to inform us that she is his new [facility] floor worker, Her personal cell number is [phone] her work cell is [phone]
[2023-12-30 16:41] LABS: Reflex Lactate? 2 Y
[2023-12-30 17:06] LABS: ~Lactic Acid-LAB USE ONLY 0.6 mmol/L (0.5-2.0)
--- NOTE | 2023-12-30 18:30 | PHA.MEDREC ---
Pharmacy Consult ? Medication Reconciliation Pharmacy has completed the medication reconciliation. Patient does not know any meds. [facility] visiting nursing ([phone]) handles his medications. Called them to confirm meds.
--- NOTE | 2023-12-30 19:09 | P.HPHOSP_ITS ---
History of Present Illness Date of Service: 12/30/23 Attending physician on admission: Faustino [facility] Chief Complaint: Headache, nausea, and SOB Pt is a 68-year-old male with a PMH significant forCAD s/p PCI with stenting, HTN, CVA, COPD, s/p right CADEN at [facility] 1 month ago, and bipolar disorder who presents to the ED with?multiple complaints, including nausea, vomiting, headache, dizziness, SOB, and difficulty ambulating. Patient is a vague and poor historian. Notes he recently returned from [facility] around two weeks ago after right total hip arthroplasty. Has had his home sprayed twice for cockroaches -- once while in rehab and another time since being home -- and was wondering if this might be contributing to his symptoms. States SOB and weakness mostly with ambulation, and has had difficulty walking lately even with his walker. Denies chest pain/pressure or palpitations. No cough. Denies fever, chills, or abdominal pain. Of note, patient states he has had a long history of labile and difficult to control blood pressure. Reports BP ranges from as high as 280/120 to as low as 70/50. Follows with both cardiology and vascular at [facility]. When EMS arrived they found pt outside in his wheelchair looking unwell. BP was asymmetrical: 205/88 in right arm and 125/89 in left arm. In the ED pt was tachypneic up to 21 and hypertensive up to 213/81. Labs were significant for leukocytosis of 12.0, stable H&H 12.6/38.3, ESR 42, BUN 26, creatinine 2.09, lactic acid 2.2 with repeat 2.3 and 0.6, CXR showed CRP 1.34, BNP 172, and albumin 3.4. UA negative for UTI. 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 EKG demonstrated sinus bradycardia of 53 without evidence of significant ST elevations or depressions. Given increase in AAA that was now of repairable size, ED clinicians contacted [facility] who stated that there was no indication for emergent transfer at this time. Suggested patient should follow up with vascular within 1-2 weeks. In the ED pt was treated with ondansetron, IVF, quetiapine, acetaminophen, and amlodipine. Pt will be admitted to the hospital for treatment and further evaluation of symptomatic hypertensive urgency. Review of Systems 2 Review of Systems: Headache Nausea, vomiting SOB Dizziness, difficulty ambulating Denies chest pain/pressure, palpitations No abdominal pain Denies fever or chills [facility] Medical History Stage 3b chronic kidney disease Multiple falls CAD (coronary artery disease) Schizoaffective disorder Peripheral arterial disease History of CVA (cerebrovascular accident) Bilateral carotid artery stenosis Stroke due to stenosis of carotid artery Arthritis Myocardial infarct Hypertension Family History Father Heart disease Surgical History H/O heart artery stent No significant past surgical history Social History Household Members: None Housing: Apartment Do you presently have visiting nurse or other home services: No Alcohol intake: former Patient Tobacco Use Status: Current everyday Tobacco user Tobacco use type: Cigar Cigarettes Per Day: 4 Second Hand Smoke Exposure: No Advance Directives: Yes Advance Directives on File: Yes Advance Directives Date on File: 01/18/21 Do you have a plan to hurt others: No Plan service: No Meds Allergies Allergy/AdvReac Type Severity Reaction Status Date / Time clozapine [From Clozaril] Allergy Unknown RASH Verified 12/30/23 12:02 hydroxyzine [From VISTARIL] Allergy Unknown UNKNOWN Verified 12/30/23 12:02 menthol [From Antihistamine] Allergy Unknown RASH Verified 12/30/23 12:02 nicotine [Nicotine] Allergy Unknown GUM- MAKES Verified 12/30/23 12:02 SICK TO STOMACH nut - unspecified [nut] Allergy Unknown SWELLING Verified 12/30/23 12:02 From Antihistamine Allergy Unknown RASH Uncoded 12/30/23 12:02 Home Medications ?Medication ?Instructions ?Recorded ?Confirmed ?Last Taken ?Type atorvastatin 80 mg tablet 1 tab PO BEDTIME 01/12/21 12/30/23 12/29/23 History bupropion HCl 150 mg tablet,12 hr 1 tab PO DAILY 01/12/21 12/30/23 12/29/23 History sustained-release fluoxetine 40 mg capsule 1 cap PO DAILY 01/12/21 12/30/23 12/29/23 History lamotrigine 100 mg tablet 200 mg PO BID 01/12/21 12/30/23 12/29/23 History quetiapine 400 mg tablet,extended 1 tab PO BEDTIME 01/12/21 12/30/23 12/29/23 History release 24 hr trazodone 100 mg tablet 2 tab PO BEDTIME Insomnia 01/12/21 12/30/23 12/29/23 History aspirin 81 mg tablet,delayed 1 tab PO DAILY 11/03/21 12/30/23 12/29/23 History release fluticasone propionate 50 1 spray intranasal BID Allergy 11/03/21 12/30/23 12/29/23 History mcg/actuation nasal Symptoms spray,suspension acetaminophen 325 mg tablet 650 mg PO Q6H PRN Pain (Scale 03/29/23 12/30/23 Unknown History Score 1-3) sennosides 8.6 mg tablet (senna) 8.6 mg PO BEDTIME PRN Constipation 03/29/23 12/30/23 Unknown History amlodipine 2.5 mg tablet 2.5 mg PO DAILY 12/30/23 12/30/23 12/29/23 History metoprolol tartrate 25 mg tablet 25 mg PO BID 12/30/23 12/30/23 12/29/23 History omeprazole 20 mg capsule,delayed 20 mg PO DAILY@0630 12/30/23 12/30/23 12/29/23 History release Physical Exam 2 Vital Signs and Narrative: Vital Signs: Last Vital Signs Temp 98 F 12/30/23 17:54 Pulse 69 12/30/23 17:54 Resp 15 12/30/23 17:54 BP 194/84 H 12/30/23 17:54 Pulse Ox 97 12/30/23 17:54 O2 Del Method Room Air 12/30/23 17:54 BMI result Body Mass Index 27.1 Constitutional: Alert, in no acute distress. Mental Status: Oriented to person, place and time. Eyes: Pupils are equal, round, and reactive to light. Ear, Nose, and Throat: Oropharynx clear, mucous membranes moist. Ears and nose without deformities. Trachea midline. Respiratory: Clear to auscultation bilaterally. No wheezing, rales, or rhonchi. Cardiovascular: S1, S2 regular. No murmurs, rubs, or gallops. Gastrointestinal: Abdomen soft, non-tender, non-distended. Normal bowel sounds. Neurologic: Cranial nerves II-XII are grossly intact bilaterally. No focal neurological deficits. Moves all extremities spontaneously. Right hip ROM reduced secondary to pain. Skin: Warm, dry. Extremities: No edema. Psychiatric: Normal mood and affect. Results Labs 12/30/23 12:08 12/30/23 12:08 Labs: Laboratory Results - last 24 hr 12/30/23 12/30/23 12/30/23 12:08 12:09 12:13 MCV 86.5 MCH 28.4 MCHC 32.9 RDW 14.5 Plt Count 295 MPV 10.8 Immature Gran % (Auto) 0.5 H Neut % (Auto) 51.0 Lymph % (Auto) 36.4 Eagle % (Auto) 8.2 Eos % (Auto) 2.8 Baso % (Auto) 1.1 Lymph # (Auto) 4.4 Eagle # (Auto) 1.0 Eos # (Auto) 0.3 Baso # (Auto) 0.1 Abs Immat Gran (auto) 0.06 H Absolute Neuts (auto) 6.1 Absolute Nucleated RBC 0.000 Nucleated RBC % (auto) 0.0 ESR 42 H PT 12.9 INR 1.1 APTT 31.9 VBG pH 7.51 H VBG pCO2 26 VBG pO2 35 VBG HCO3 21 L VBG O2 Saturation 73.0 VBG Base Excess -0.1 Anion Gap 19 Estim Creat Clear Calc 37.6 Estimated GFR 32 Random Glucose 103 Lactic Acid 2.2 H* Lactic Acid F/U @ 2Hr Lactic Acid F/U @ 4Hr Calcium 9.3 Magnesium 1.9 Total Bilirubin 0.5 Direct Bilirubin 0.2 AST 17 ALT 14 Alkaline Phosphatase 187 H Total Creatine Kinase 58 Troponin I High Sens 6.3 C-Reactive Protein 1.34 H B-Natriuretic Peptide 172 H Total Protein 7.5 Albumin 3.4 L Lipase 65 Procalcitonin 0.05 TSH 1.63 Urine Color Urine Appearance Urine pH Ur Specific Deep Water Urine Protein Urine Glucose (UA) Urine Ketones Urine Blood Urine Nitrite Ur Leukocyte Esterase Blood Type O Positive Antibody Screen NEGATIVE 12/30/23 12/30/23 12/30/23 13:04 14:38 16:53 MCV MCH MCHC RDW Plt Count MPV Immature Gran % (Auto) Neut % (Auto) Lymph % (Auto) Eagle % (Auto) Eos % (Auto) Baso % (Auto) Lymph # (Auto) Eagle # (Auto) Eos # (Auto) Baso # (Auto) Abs Immat Gran (auto) Absolute Neuts (auto) Absolute Nucleated RBC Nucleated RBC % (auto) ESR PT INR APTT VBG pH VBG pCO2 VBG pO2 VBG HCO3 VBG O2 Saturation VBG Base Excess Anion Gap Estim Creat Clear Calc Estimated GFR Random Glucose Lactic Acid Lactic Acid F/U @ 2Hr 2.3 H* Lactic Acid F/U @ 4Hr 0.6 Calcium Magnesium Total Bilirubin Direct Bilirubin AST ALT Alkaline Phosphatase Total Creatine Kinase Troponin I High Sens C-Reactive Protein B-Natriuretic Peptide Total Protein Albumin Lipase Procalcitonin TSH Urine Color Yellow Urine Appearance Clear Urine pH 8.5 Ur Specific Deep Water 1.020 Urine Protein Negative Urine Glucose (UA) Negative Urine Ketones Negative Urine Blood Negative Urine Nitrite Negative Ur Leukocyte Esterase Negative Blood Type Antibody Screen Imaging Radiologist's Impressions: Impressions Abdomen/Pelvis CTA 12/30/23 11:54 IMPRESSION: Stable mild aneurysm of the ascending thoracic aorta measures 4.2 cm. Redemonstration of chronic left subclavian artery occlusion and possible [id number]-[id number] stenosis of the left carotid origin. There is a chronic small ulceration at the origin of the right subclavian artery. Redemonstration of abdominal aortic aneurysm which has increased in size and now measures 5.5 x 5.3 cm at the level of the inferior mesenteric artery, previously 4.8 x 4.7 cm on the previous study of 11/03/2021. 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 Mild to moderate stenosis at the origin of the right renal artery. Unchanged 4 mm right upper lobe pulmonary nodule. Electronically signed by: Papa Galarza MD 12/30/2023 01:57 PM EDT RP Chest CTA 12/30/23 12:03 IMPRESSION: Stable mild aneurysm of the ascending thoracic aorta measures 4.2 cm. Redemonstration of chronic left subclavian artery occlusion and possible klrx-yf-ginshzdl stenosis of the left carotid origin. There is a chronic small ulceration at the origin of the right subclavian artery. Redemonstration of abdominal aortic aneurysm which has increased in size and now measures 5.5 x 5.3 cm at the level of the inferior mesenteric artery, previously 4.8 x 4.7 cm on the previous study of 11/03/2021. 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 Mild to moderate stenosis at the origin of the right renal artery. Unchanged 4 mm right upper lobe pulmonary nodule. Electronically signed by: Papa Galarza MD 12/30/2023 01:57 PM EDT RP Assessment and Plan (1) Hypertensive urgency: Status: Acute Plan Pt is a 68-year-old male with a PMH significant for NSTEMI, CAD s/p PCI with stenting, HTN, CVA, COPD, BPH, CKD 3, s/p right CADEN at [facility] 1 month ago, and bipolar disorder who presents to the ED with?multiple complaints, including nausea, vomiting, headache, dizziness, SOB, and difficulty ambulating. Pt will be admitted to the hospital for treatment and further evaluation of symptomatic hypertensive urgency. Symptomatic hypertensive urgency Patient with headache, dizziness, nausea, vomiting, SOB BP has been as high as 213/81 Given labetalol and amlodipine in the ED Hold metoprolol due to HR in the 50s Increase amlodipine to 5 mg daily Monitor on telemetry Follow BP closely Abdominal aortic aneurysm CTA showed AAA measuring 5.5 x 5.3 cm, increased from 4.8 x 4.7 cm on 11/03/2021 Review of [facility] records show AAA in May of 5.1 x 5.2 cm with length of [address] Hua at [facility] who stated there was no indication for emergent transfer Should follow-up with [facility] vascular in 1-2 weeks' time Subclavian artery stenosis Patient with asymmetric BPs: 205/88 on right, 185/89 on left CTA showing chronic left subclavian artery occlusion Follow up outpatient with vascular surgery Renal artery stenosis CTA found [id number] stenosis of right renal artery Left renal artery with stent in place Possibly contributing to HTN Follow up outpatient with vascular surgery CAD/HLD Continue aspirin, statin GERD PPI Mood disorder Continue bupropion, fluoxetine, quetiapine, and lamotrigine Full Code Attending:?Dr. Tellez DVT Prophylaxis: Lovenox Pt will require a hospitalization of at least two nights for treatment of?of symptomatic hypertensive urgency. Patient will need close monitoring of BP, cardiac function, and vitals for medical optimization of BP control. Quality Stroke Does the patient have a stroke diagnosis?: No VTE Prior VTE?: No VTE Risk Level:: Medical - moderate - high VTE Device Contraindication: Treatment Not Indicated VTE Drug Contraindication: N/A - Med Ordered
--- NOTE | 2023-12-30 20:35 | MHC.EDTECH ---
Patient was ginen dinner ,ate 100 % of meal and drank 360 ml fluids 450 ml empty from urinal ,vitals taken .Call guadarrama within Pt reach .
[2023-12-30] MEDS: lamoTRIgine 100 MG TABLET 200 MG PO (23:35)
[2023-12-30] MEDS: Atorvastatin Calcium 80 MG TABLET PO (23:36)
[2023-12-30] MEDS: Enoxaparin Sodium 40 MG/0.4 ML SYRINGE SUBCUT (23:36)
[2023-12-30] MEDS: traZODone HCL 100 MG TABLET 200 MG PO (23:36)
[2023-12-31] VITALS (10 sets, daily range): BP systolic 129–200; BP diastolic 63–85; PULSE 62–94; RESP 15–20; TEMP 36.7–37.1; O2SAT 96–99
--- NOTE | 2023-12-31 02:01 | MHC.EDTECH ---
0200 rounding done ,Patient awake ,urinal empty ,Call guadarrama within Pt reach .
[2023-12-31 05:41] LABS: Hematocrit 33.7 % (42.0-52.0); Hemoglobin 11.2 g/dl (14.0-18.0); Mean Corpuscular HGB Conc 33.2 g/dl (31.0-36.0); Mean Corpuscular Volume 87.3 fL (80.0-98.0); Mean Platelet Volume 10.5 fL (9.4-12.4); Platelet Count 205 X10*3/uL (160-400); Red Blood Count 3.86 X10*6/uL (4.60-5.80); Red Cell Distribution Width 14.7 % (11.0-16.0); White Blood Count 9.1 X10*3/uL (4.8-10.8)
[2023-12-31 05:52] LABS: Anion Gap 13 (12-20); Blood Urea Nitrogen 20 mg/dL (9-16); Calcium 8.5 mg/dL (8.4-10.2); Carbon Dioxide 20 mmol/L (22-29); Chloride 110 mmol/L (96-108); Creatinine Clr Calc Pharmacy 44.2; Estimated Glomerular Filt Rate 38; Glucose Random 107 mg/dL (60-115); Potassium 3.6 mmol/L (3.3-5.1); Sodium 139 mmol/L (135-145)
[2023-12-31] MEDS: amLODIPine Besylate 5 MG TABLET PO ×2 (09:07→11:06)
[2023-12-31] MEDS: lamoTRIgine 100 MG TABLET 200 MG PO ×2 (09:08→21:04)
[2023-12-31] MEDS: FLUoxetine HCl 20 MG CAPSULE 40 MG PO (09:09)
[2023-12-31] MEDS: Aspirin Enteric Coated 81 MG TABLET.DR PO (09:10)
[2023-12-31] MEDS: buPROPion HCl XL 150 MG TAB.ER.24H PO (09:10)
[2023-12-31] MEDS: Omeprazole 20 MG CAPSULE.DR PO (09:10)
[2023-12-31] MEDS: 0.9 % Sodium Chloride Flush 3 ML SYRINGE IVFLUSH ×3 (09:11→21:05)
--- NOTE | 2023-12-31 10:48 | HO.PM.IMPN ---
Subjective Subjective Date of Service: 12/31/23 Interval History: Seen and evaluated this morning more alert and interactive denies any Dyspnea or SOB no other overnight events Review of Systems Review of Systems: Yes all other systems are reviewed and are negative Physical Exam Vital Signs: Vital Signs: Last Vital Signs Temp 98.8 F 12/31/23 00:23 Pulse 66 12/31/23 08:58 Resp 17 12/31/23 08:58 BP 200/83 H 12/31/23 09:07 Pulse Ox 99 12/31/23 08:58 O2 Del Method Room Air 12/31/23 08:58 BMI result Body Mass Index 27.1 Const: Other: Constitutional : interactive, not in distress Cardiovascular : no JVP, no lower extremity edema Respiratory : bilateral chest movement, not in resp distress Gastrointestinal: soft, lax, Non tender Skin : Warm, Dry Neurological : Alert & oriented to self and place , No focal deficit Objective Data Active Medications Acetaminophen (Acetaminophen 325 Mg Tablet) 650 mg PO Q6H PRN PRN Reason: Pain, Mild (Pain Scale 1-3), fever or headache Amlodipine Besylate (Amlodipine Besylate 5 Mg Tablet) 5 mg PO DAILY [facility]; Protocol Last Admin: 12/31/23 09:07 Dose: 5 mg Documented By: ASHU Aspirin (Aspirin Enteric Coated 81 Mg Tablet.Dr) 81 mg PO DAILY [facility] Last Admin: 12/31/23 09:10 Dose: 81 mg Documented By: ASHU Atorvastatin Calcium (Atorvastatin Calcium 80 Mg Tablet) 80 mg PO BEDTIME [facility] Last Admin: 12/30/23 23:36 Dose: 80 mg Documented By: SAMEERA Bupropion HCl (Bupropion Hcl Xl 150 Mg Tab.Er.24h) 150 mg PO DAILY [facility] Last Admin: 12/31/23 09:10 Dose: 150 mg Documented By: ASHU Enoxaparin Sodium (Enoxaparin Sodium 40 Mg/0.4 Ml Syringe) 40 mg SUBCUT Q24H [facility] Last Admin: 12/30/23 23:36 Dose: 40 mg Documented By: SAMEERA Fluoxetine HCl (Fluoxetine Hcl 20 Mg Capsule) 40 mg PO DAILY [facility] Last Admin: 12/31/23 09:09 Dose: 40 mg Documented By: ASHU Fluticasone Propionate (Fluticasone Propionate Nasal 16 G[address] [place]) 1 spray NOSTRIL-B BID [facility] Last Admin: 12/31/23 09:29 Dose: Not Given Documented By: ASHU Non-Admin Reason: Patient Refused Lamotrigine (Lamotrigine 100 Mg Tablet) 200 mg PO BID [facility] Last Admin: 12/31/23 09:08 Dose: 200 mg Documented By: ASHU Magnesium Hydroxide (Milk Of Magnesia 30 Ml Oral.Susp) 30 ml PO DAILY PRN PRN Reason: Constipation Melatonin (Melatonin 3 Mg Tablet) 6 mg PO BEDTIME PRN PRN Reason: Insomnia Nitroglycerin (Nitroglycerin 0.4 Mg Tab.Subl) 0.4 mg SUBLINGUAL Q5M PRN PRN Reason: chest pain Omeprazole (Omeprazole 20 Mg Capsule.Dr) 20 mg PO DAILY@0630 [facility] Last Admin: 12/31/23 09:10 Dose: 20 mg Documented By: ASHU Ondansetron HCl (Ondansetron Hcl 4 Mg/2 Ml Vial) 4 mg IVPUSH Q8H PRN PRN Reason: Nausea and Vomiting Quetiapine Fumarate (Quetiapine Fumarate 200 Mg Tablet) 200 mg PO BID [facility] Senna (Sennosides 8.6 Mg Tablet) 8.6 mg PO BEDTIME PRN PRN Reason: Constipation Sodium Chloride (0.9 % Sodium Chloride Flush 3 Ml Syringe) 3 ml IVFLUSH QSHIFT [facility] Last Admin: 12/31/23 09:11 Dose: 3 ml Documented By: ASHU Trazodone HCl (Trazodone Hcl 100 Mg Tablet) 200 mg PO BEDTIME [facility] Last Admin: 12/30/23 23:36 Dose: 200 mg Documented By: SAMEERA Labs 12/31/23 05:34 12/31/23 05:34 Labs: Laboratory Results - last 24 hr 12/30/23 12/30/23 12/30/23 12:08 12:09 12:13 MCV 86.5 MCH 28.4 MCHC 32.9 RDW 14.5 Plt Count 295 MPV 10.8 Immature Gran % (Auto) 0.5 H Neut % (Auto) 51.0 Lymph % (Auto) 36.4 [place] % (Auto) 8.2 Eos % (Auto) 2.8 Baso % (Auto) 1.1 Lymph # (Auto) 4.4 [place] # (Auto) 1.0 Eos # (Auto) 0.3 Baso # (Auto) 0.1 Abs Immat Gran (auto) 0.06 H Absolute Neuts (auto) 6.1 Absolute Nucleated RBC 0.000 Nucleated RBC % (auto) 0.0 ESR 42 H PT 12.9 INR 1.1 APTT 31.9 VBG pH 7.51 H VBG pCO2 26 VBG pO2 35 VBG HCO3 21 L VBG O2 Saturation 73.0 VBG Base Excess -0.1 Anion Gap 19 Estim Creat Clear Calc 37.6 Estimated GFR 32 Random Glucose 103 Lactic Acid 2.2 H* Lactic Acid F/U @ 2Hr Lactic Acid F/U @ 4Hr Calcium 9.3 Magnesium 1.9 Total Bilirubin 0.5 Direct Bilirubin 0.2 AST 17 ALT 14 Alkaline Phosphatase 187 H Total Creatine Kinase 58 Troponin I High Sens 6.3 C-Reactive Protein 1.34 H B-Natriuretic Peptide 172 H Total Protein 7.5 Albumin 3.4 L Lipase 65 Procalcitonin 0.05 TSH 1.63 Urine Color Urine Appearance Urine pH Ur Specific [place] Urine Protein Urine Glucose (UA) Urine Ketones Urine Blood Urine Nitrite Ur Leukocyte Esterase Blood Type O Positive Antibody Screen NEGATIVE 12/30/23 12/30/23 12/30/23 13:04 14:38 16:53 MCV MCH MCHC RDW Plt Count MPV Immature Gran % (Auto) Neut % (Auto) Lymph % (Auto) [place] % (Auto) Eos % (Auto) Baso % (Auto) Lymph # (Auto) [place] # (Auto) Eos # (Auto) Baso # (Auto) Abs Immat Gran (auto) Absolute Neuts (auto) Absolute Nucleated RBC Nucleated RBC % (auto) ESR PT INR APTT VBG pH VBG pCO2 VBG pO2 VBG HCO3 VBG O2 Saturation VBG Base Excess Anion Gap Estim Creat Clear Calc Estimated GFR Random Glucose Lactic Acid Lactic Acid F/U @ 2Hr 2.3 H* Lactic Acid F/U @ 4Hr 0.6 Calcium Magnesium Total Bilirubin Direct Bilirubin AST ALT Alkaline Phosphatase Total Creatine Kinase Troponin I High Sens C-Reactive Protein B-Natriuretic Peptide Total Protein Albumin Lipase Procalcitonin TSH Urine Color Yellow Urine Appearance Clear Urine pH 8.5 Ur Specific [place] 1.020 Urine Protein Negative Urine Glucose (UA) Negative Urine Ketones Negative Urine Blood Negative Urine Nitrite Negative Ur Leukocyte Esterase Negative Blood Type Antibody Screen 12/31/23 05:34 MCV 87.3 MCH 29.0 MCHC 33.2 RDW 14.7 Plt Count 205 D MPV 10.5 Immature Gran % (Auto) Neut % (Auto) Lymph % (Auto) [place] % (Auto) Eos % (Auto) Baso % (Auto) Lymph # (Auto) [place] # (Auto) Eos # (Auto) Baso # (Auto) Abs Immat Gran (auto) Absolute Neuts (auto) Absolute Nucleated RBC 0.000 Nucleated RBC % (auto) 0.0 ESR PT INR APTT VBG pH VBG pCO2 VBG pO2 VBG HCO3 VBG O2 Saturation VBG Base Excess Anion Gap 13 Estim Creat Clear Calc 44.2 Estimated GFR 38 Random Glucose 107 Lactic Acid Lactic Acid F/U @ 2Hr Lactic Acid F/U @ 4Hr Calcium 8.5 D Magnesium Total Bilirubin Direct Bilirubin AST ALT Alkaline Phosphatase Total Creatine Kinase Troponin I High Sens C-Reactive Protein B-Natriuretic Peptide Total Protein Albumin Lipase Procalcitonin TSH Urine Color Urine Appearance Urine pH Ur Specific [place] Urine Protein Urine Glucose (UA) Urine Ketones Urine Blood Urine Nitrite Ur Leukocyte Esterase Blood Type Antibody Screen Assessment and Plan (1) Nausea: Status: Acute (2) Shortness of breath: Status: Acute (3) Hypertensive urgency: Status: Acute Plan Pt is a 68-year-old male with a PMH significant for NSTEMI, CAD s/p PCI with stenting, HTN, CVA, COPD, BPH, CKD 3, s/p right CADEN at [facility] 1 month ago, and bipolar disorder who presents to the ED with?multiple complaints, including nausea, vomiting, headache, dizziness, SOB, and difficulty ambulating. Pt will be admitted to the hospital for treatment and further evaluation of symptomatic hypertensive urgency. Symptomatic hypertensive urgency BP better controlled now but remains elevated Increase Amlodipine to 10 mg daily Metoprolol 25 mg bid IV Hydralazine 10 mg Monitor on telemetry Follow BP closely Abdominal aortic aneurysm CTA showed AAA measuring 5.5 x 5.3 cm, increased from 4.8 x 4.7 cm on 11/03/2021 Review of [facility] records show AAA in May of 5.1 x 5.2 cm with length of [address] Hua at [facility] who stated there was no indication for emergent transfer Should follow-up with [facility] vascular in 1-2 weeks' time Subclavian artery stenosis asymmetric BPs , better controlled now CTA showing chronic left subclavian artery occlusion Follow up outpatient with vascular surgery Renal artery stenosis CTA found [id number] stenosis of right renal artery Left renal artery with stent in place Possibly contributing to HTN Follow up outpatient with vascular surgery CAD/HLD Continue aspirin, statin GERD PPI Mood disorder Continue bupropion, fluoxetine, quetiapine, and lamotrigine Full Code DVT Prophylaxis: Lovenox Pt will require a hospitalization overnight for treatment of?of symptomatic hypertensive urgency. Patient will need close monitoring of BP, cardiac function, and vitals for medical optimization of BP control. Quality Stroke Does the patient have a stroke diagnosis?: No VTE Prior VTE?: No VTE Risk Level:: Medical - moderate - high VTE Device Contraindication: Treatment Not Indicated VTE Drug Contraindication: N/A - Med Ordered
[2023-12-31] MEDS: Metoprolol Tartrate 25 MG TABLET PO (11:01)
[2023-12-31] MEDS: hydrALAZINE HCl 20 MG/ML VIAL 5 MG IVPUSH (11:02)
[2023-12-31] MEDS: Enoxaparin Sodium 40 MG/0.4 ML SYRINGE SUBCUT (21:04)
[2023-12-31] MEDS: QUEtiapine Fumarate 200 MG TABLET PO (21:04)
[2023-12-31] MEDS: Atorvastatin Calcium 80 MG TABLET PO (21:04)
[2023-12-31] MEDS: traZODone HCL 100 MG TABLET 200 MG PO (21:09)
--- NOTE | 2024-01-01 | ECG_ITS ---
Test Reason : bradycardia Blood Pressure : / mmHG Vent. Rate : 049 BPM Atrial Rate : 049 BPM P-R Int : 162 ms QRS Dur : 088 ms QT Int : 504 ms P-R-T Axes : 011 -12 -04 degrees QTc Int : 455 ms Sinus bradycardia Nonspecific ST abnormality Abnormal ECG When compared with ECG of 30-DEC-2023 12:15, No significant change was found Referred By: Moreno Newberry Electronically Signed By:DAVID ROSENTHAL
[2024-01-01 03:21] VITALS: BP 117/69; PULSE 62; RESP 20; TEMP 36.9; O2SAT 96
[2024-01-01] MEDS: Omeprazole 20 MG CAPSULE.DR PO (05:48)
[2024-01-01 06:19] LABS: Hematocrit 35.3 % (42.0-52.0); Hemoglobin 11.4 g/dl (14.0-18.0); Mean Corpuscular HGB Conc 32.3 g/dl (31.0-36.0); Mean Corpuscular Hemoglobin 28.4 pg (27.0-33.0); Mean Corpuscular Volume 87.8 fL (80.0-98.0); Mean Platelet Volume 10.8 fL (9.4-12.4); Platelet Count 230 X10*3/uL (160-400); Red Blood Count 4.02 X10*6/uL (4.60-5.80); Red Cell Distribution Width 14.7 % (11.0-16.0); White Blood Count 9.4 X10*3/uL (4.8-10.8)
[2024-01-01 06:34] LABS: Anion Gap 12 (12-20); Blood Urea Nitrogen 25 mg/dL (9-16); Calcium 8.7 mg/dL (8.4-10.2); Carbon Dioxide 23 mmol/L (22-29); Chloride 111 mmol/L (96-108); Creatinine Clr Calc Pharmacy 37.8; Estimated Glomerular Filt Rate 32; Glucose Random 107 mg/dL (60-115); Potassium 3.6 mmol/L (3.3-5.1); Sodium 142 mmol/L (135-145)
[2024-01-01 06:40] LABS: B Type Natriuretic Peptide 157 pg/mL (<100)
[2024-01-01 07:47] VITALS: BP 137/76; PULSE 73; RESP 20; TEMP 36; O2SAT 97
[2024-01-01 08:30] VITALS: BP 137/76; PULSE 73; O2SAT 97
[2024-01-01] MEDS: 0.9 % Sodium Chloride Flush 3 ML SYRINGE IVFLUSH ×2 (09:01→21:31)
[2024-01-01] MEDS: FLUoxetine HCl 20 MG CAPSULE 40 MG PO (09:02)
[2024-01-01] MEDS: Metoprolol Tartrate 25 MG TABLET PO (09:02)
[2024-01-01] MEDS: lamoTRIgine 100 MG TABLET 200 MG PO ×2 (09:02→21:23)
[2024-01-01] MEDS: buPROPion HCl XL 150 MG TAB.ER.24H PO (09:02)
[2024-01-01] MEDS: QUEtiapine Fumarate 200 MG TABLET PO ×2 (09:02→21:23)
[2024-01-01] MEDS: amLODIPine Besylate 10 MG TABLET PO (09:03)
[2024-01-01] MEDS: Aspirin Enteric Coated 81 MG TABLET.DR PO (09:03)
--- NOTE | 2024-01-01 09:56 | MHC.CM.PN ---
Addendum entered by Zamzam Wylie 01/01/24 14:57: PT evaluated pt and recommended [facility], this CM met with pt to discuss and he declines to go to [facility] and would like to return home with resumption of his previous services. Addendum entered by Zamzam Wylie 01/01/24 14:49: This CM placed a call to pts brother/HCP Tim, he states he will be unable to transport his brother home at discharge, and to call the [facility] worker. Pt is active with [facility] services, grocery team member is Chinedu who can be reached at [phone], per Chinedu, pt will need assistance with transport at time of discharge. This CM did not receive a response from [facility] via [employer], call was placed to them and per their request, please fax discharge summary to them at [phone] when he is ready for discharge. [facility] and [facility] notified by this CM that pt is tentatively discharging tomorrow 01/01. Original Note: IMM 12/31. Pt lives alone at home, he reports having a nurse come daily to administer his medications, and states he has [employer] services, pt reports using a cane and a walker when out of the house. Pt states he may be able to arrange transport home at discharge, but may need assistance. HCP on file and verified. This CM called Tiffani at [facility] to confirm pts services, per Tiffani, pt is active with [facility] care, and [facility] PCP: Dr. Balaji Mayo
[2024-01-01 12:00] VITALS: BP 95/57; PULSE 48; RESP 20; TEMP 36.3; O2SAT 100
[2024-01-01] MEDS: 0.9 % Sodium Chloride 1,000 ML 999 ML IV (13:22)
--- NOTE | 2024-01-01 13:48 | MHC.CLN ---
RE: CONSULT HT 6' WT 90.7KG (12/30/23) 112% IBW BMI 27 WT HX FOLLOWS: 90.7KG (12/30/23) PREVIOUS WT 90.7KG (07/23/23) 102.9KG (01/26/23) PT WITH 12% NONSIGNIFICANT WT LOSS X1 YEAR PT REMAINS OBESE FOR HT WITH BMI 27 REPORTS APPETITE IS GOOD STATED FOOD IS SOMEWHAT BLAND BUT PT KNOWS HE MUST FOLLOW LOW SODIUM DIET PT REPORTED RECENT WT LOSS BENEFICIAL HE INCREASED WALKING PO INTAKE RECORDED 75-100% CONTINUE CURRENT CARE PLAN
--- NOTE | 2024-01-01 14:04 | P.PNIM_ITS ---
Subjective Subjective Date of Service: 01/01/24 Interval History: Seen and evaluated this morning more alert and interactive but gets sleepy after medications HR dropped to 40s, sinus fabrice with no blocks Hypotensive this morning denies any Dyspnea or SOB no other overnight events Review of Systems Review of Systems: Yes all other systems are reviewed and are negative Physical Exam 2 Vital Signs: Vital Signs: Last Vital Signs Temp 97.4 F 01/01/24 12:00 Pulse 48 L 01/01/24 12:00 Resp 20 01/01/24 12:00 BP 95/57 L 01/01/24 12:00 Pulse Ox 100 01/01/24 12:00 O2 Del Method Room Air 01/01/24 12:00 BMI result Body Mass Index 27.1 Const: Other: Constitutional : interactive, not in distress Cardiovascular : no JVP, no lower extremity edema Respiratory : bilateral chest movement, not in resp distress Gastrointestinal: soft, lax, Non tender Skin : Warm, Dry Neurological : Alert & oriented to self and place , No focal deficit Objective Data Active Medications Acetaminophen (Acetaminophen 325 Mg Tablet) 650 mg PO Q6H PRN PRN Reason: Pain, Mild (Pain Scale 1-3), fever or headache Amlodipine Besylate (Amlodipine Besylate 5 Mg Tablet) 5 mg PO DAILY [facility]; Protocol Aspirin (Aspirin Enteric Coated 81 Mg Tablet.) 81 mg PO DAILY [facility] Last Admin: 01/01/24 09:03 Dose: 81 mg Documented By: GEN Atorvastatin Calcium (Atorvastatin Calcium 80 Mg Tablet) 80 mg PO BEDTIME [facility] Last Admin: 12/31/23 21:04 Dose: 80 mg Documented By: KALIE Bupropion HCl (Bupropion Hcl Xl 150 Mg Tab.Er.24h) 150 mg PO DAILY [facility] Last Admin: 01/01/24 09:02 Dose: 150 mg Documented By: GEN Enoxaparin Sodium (Enoxaparin Sodium 40 Mg/0.4 Ml Syringe) 40 mg SUBCUT Q24H [facility] Last Admin: 12/31/23 21:04 Dose: 40 mg Documented By: KALIE Fluoxetine HCl (Fluoxetine Hcl 20 Mg Capsule) 40 mg PO DAILY [facility] Last Admin: 01/01/24 09:02 Dose: 40 mg Documented By: GEN Fluticasone Propionate (Fluticasone Propionate Nasal 16 Gm [place]) 1 spray NOSTRIL-B BID [facility] Last Admin: 01/01/24 09:05 Dose: Not Given Documented By: GEN Non-Admin Reason: Med Not Available Lamotrigine (Lamotrigine 100 Mg Tablet) 200 mg PO BID [facility] Last Admin: 01/01/24 09:02 Dose: 200 mg Documented By: GEN Magnesium Hydroxide (Milk Of Magnesia 30 Ml Oral.Susp) 30 ml PO DAILY PRN PRN Reason: Constipation Melatonin (Melatonin 3 Mg Tablet) 6 mg PO BEDTIME PRN PRN Reason: Insomnia Metoprolol Tartrate (Metoprolol Tartrate 25 Mg Tablet) 25 mg PO BID [facility]; Protocol Last Admin: 01/01/24 09:02 Dose: 25 mg Documented By: GEN Nitroglycerin (Nitroglycerin 0.4 Mg Tab.Subl) 0.4 mg SUBLINGUAL Q5M PRN PRN Reason: chest pain Omeprazole (Omeprazole 20 Mg Capsule.Dr) 20 mg PO DAILY@0630 [facility] Last Admin: 01/01/24 05:48 Dose: 20 mg Documented By: KALIE Ondansetron HCl (Ondansetron Hcl 4 Mg/2 Ml Vial) 4 mg IVPUSH Q8H PRN PRN Reason: Nausea and Vomiting Quetiapine Fumarate (Quetiapine Fumarate 200 Mg Tablet) 200 mg PO BID [facility] Last Admin: 01/01/24 09:02 Dose: 200 mg Documented By: GEN Senna (Sennosides 8.6 Mg Tablet) 8.6 mg PO BEDTIME PRN PRN Reason: Constipation Sodium Chloride (0.9 % Sodium Chloride Flush 3 Ml Syringe) 3 ml IVFLUSH QSHIFT [facility] Last Admin: 01/01/24 09:01 Dose: 3 ml Documented By: GEN Trazodone HCl (Trazodone Hcl 100 Mg Tablet) 200 mg PO BEDTIME [facility] Last Admin: 12/31/23 21:09 Dose: 200 mg Documented By: KALIE Labs 01/01/24 05:58 01/01/24 05:58 Labs: Laboratory Results - last 24 hr 01/01/24 05:58 MCV 87.8 MCH 28.4 MCHC 32.3 RDW 14.7 Plt Count 230 MPV 10.8 Absolute Nucleated RBC 0.000 Nucleated RBC % (auto) 0.0 Anion Gap 12 Estim Creat Clear Calc 37.8 Estimated GFR 32 Random Glucose 107 Calcium 8.7 B-Natriuretic Peptide 157 H Microbiology Microbiology Results: Microbiology 12/30/23 12:08 Blood Culture - Preliminary Blood - Venous No growth after 24 hours. 12/30/23 12:08 Blood Culture - Preliminary Blood - Venous No growth after 24 hours. Assessment and Plan (1) Nausea: Status: Acute (2) Shortness of breath: Status: Acute (3) Hypertensive urgency: Status: Acute (4) Hypotension: Status: Acute Plan Pt is a 68-year-old male with a PMH significant for NSTEMI, CAD s/p PCI with stenting, HTN, CVA, COPD, BPH, CKD 3, s/p right CADEN at [facility] 1 month ago, and bipolar disorder who presents to the ED with?multiple complaints, including nausea, vomiting, headache, dizziness, SOB, and difficulty ambulating. Pt will be admitted to the hospital for treatment and further evaluation of symptomatic hypertensive urgency. Symptomatic hypertensive urgency , resolved controlled with Increase Amlodipine to 10 mg daily and Metoprolol 25 mg bid with PRN IV Hydralazine 10 mg but complicated with acute hypotension and bradycardia this morning , held Metoprolol Monitor on telemetry Follow BP closely Sinus Bradycardia secondary to Metoprolol Hold and monitor Abdominal aortic aneurysm CTA showed AAA measuring 5.5 x 5.3 cm, increased from 4.8 x 4.7 cm on 11/03/2021 Review of [facility] records show AAA in May of 5.1 x 5.2 cm with length of [address] Hua at [facility] who stated there was no indication for emergent transfer Should follow-up with [facility] vascular in 1-2 weeks' time Subclavian artery stenosis asymmetric BPs , better controlled now CTA showing chronic left subclavian artery occlusion Follow up outpatient with vascular surgery Renal artery stenosis CTA found [id number] stenosis of right renal artery Left renal artery with stent in place Possibly contributing to HTN Follow up outpatient with vascular surgery CAD/HLD Continue aspirin, statin GERD PPI Mood disorder Continue bupropion, fluoxetine, quetiapine, and lamotrigine Full Code DVT Prophylaxis: Lovenox Pt will require a hospitalization overnight for treatment of?of symptomatic hypertensive urgency. Patient will need close monitoring of BP, cardiac function, and vitals for medical optimization of BP control. Quality Stroke Does the patient have a stroke diagnosis?: No VTE Prior VTE?: No VTE Risk Level:: Medical - moderate - high VTE Device Contraindication: Treatment Not Indicated VTE Drug Contraindication: N/A - Med Ordered
[2024-01-01 16:00] VITALS: BP 132/60; PULSE 55; RESP 12; TEMP 36.3; O2SAT 97
[2024-01-01 19:20] VITALS: BP 132/71; PULSE 52; RESP 18; TEMP 36.4; O2SAT 96
[2024-01-01] MEDS: Atorvastatin Calcium 80 MG TABLET PO (21:23)
[2024-01-01] MEDS: Enoxaparin Sodium 40 MG/0.4 ML SYRINGE SUBCUT (21:24)
[2024-01-02] VITALS: BP 144/82; PULSE 56; RESP 20; TEMP 36.5; O2SAT 96
[2024-01-02 04:00] VITALS: BP 99/67; PULSE 57; RESP 20; TEMP 36.7; O2SAT 98
[2024-01-02] MEDS: Omeprazole 20 MG CAPSULE.DR PO (06:28)
[2024-01-02 06:41] LABS: Anion Gap 11 (12-20); Blood Urea Nitrogen 29 mg/dL (9-16); Calcium 8.6 mg/dL (8.4-10.2); Carbon Dioxide 23 mmol/L (22-29); Chloride 111 mmol/L (96-108); Creatinine Clr Calc Pharmacy 37.8; Estimated Glomerular Filt Rate 32; Glucose Random 97 mg/dL (60-115); Potassium 3.8 mmol/L (3.3-5.1); Sodium 141 mmol/L (135-145)
[2024-01-02 08:00] VITALS: BP 193/83; PULSE 62; RESP 18; TEMP 36.6; O2SAT 95
[2024-01-02 08:45] VITALS: BP 127/75; PULSE 58
[2024-01-02] MEDS: 0.9 % Sodium Chloride Flush 3 ML SYRINGE IVFLUSH (08:46)
[2024-01-02] MEDS: FLUoxetine HCl 20 MG CAPSULE 40 MG PO (08:46)
[2024-01-02] MEDS: Aspirin Enteric Coated 81 MG TABLET.DR PO (08:46)
[2024-01-02] MEDS: lamoTRIgine 100 MG TABLET 200 MG PO (08:46)
[2024-01-02] MEDS: buPROPion HCl XL 150 MG TAB.ER.24H PO (08:47)
--- NOTE | 2024-01-02 09:18 | PM.DS ---
DS: Providers Provider Date of Service: 01/02/24 Date of admission: 12/30/23 21:57 Date of discharge: 01/02/24 Primary care physician: Balaji Mayo MD DS: Diagnosis Discharge Diagnosis (1) Nausea: Status: Acute (2) Shortness of breath: Status: Acute (3) Hypertensive urgency: Status: Acute (4) Hypotension: Status: Acute (5) Bradycardia, sinus: Status: Acute DS: Summary Hospital Course Hospital Course: Admission note HPI Pt is a 68-year-old male with a PMH significant forCAD s/p PCI with stenting, HTN, CVA, COPD, s/p right CADEN at [facility] 1 month ago, and bipolar disorder who presents to the ED with?multiple complaints, including nausea, vomiting, headache, dizziness, SOB, and difficulty ambulating. Patient is a vague and poor historian. Notes he recently returned from [facility] around two weeks ago after right total hip arthroplasty. Has had his home sprayed twice for cockroaches -- once while in rehab and another time since being home -- and was wondering if this might be contributing to his symptoms. States SOB and weakness mostly with ambulation, and has had difficulty walking lately even with his walker. Denies chest pain/pressure or palpitations. No cough. Denies fever, chills, or abdominal pain. Of note, patient states he has had a long history of labile and difficult to control blood pressure. Reports BP ranges from as high as 280/120 to as low as 70/50. Follows with both cardiology and vascular at [facility]. When EMS arrived they found pt outside in his wheelchair looking unwell. BP was asymmetrical: 205/88 in right arm and 125/89 in left arm. In the ED pt was tachypneic up to 21 and hypertensive up to 213/81. Labs were significant for leukocytosis of 12.0, stable H&H 12.6/38.3, ESR 42, BUN 26, creatinine 2.09, lactic acid 2.2 with repeat 2.3 and 0.6, CXR showed CRP 1.34, BNP 172, and albumin 3.4. UA negative for UTI. 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 EKG demonstrated sinus bradycardia of 53 without evidence of significant ST elevations or depressions. Given increase in AAA that was now of repairable size, ED clinicians contacted [facility] who stated that there was no indication for emergent transfer at this time. Suggested patient should follow up with vascular within 1-2 weeks. In the ED pt was treated with ondansetron, IVF, quetiapine, acetaminophen, and amlodipine. Pt will be admitted to the hospital for treatment and further evaluation of symptomatic hypertensive urgency. Hospital course The patient was admitted and evaluated for the following problems: # Symptomatic hypertensive urgency , resolved Primarly treated with IV Hydralazine and increasing Amlodipine to 10 mg. the next day he dropped his BP and became hypotensive. Amlodipine adjusted to 5 mg but he was noticed to have more Bradycardia events in 40-50s which can cause reflux hypertension. Metoprolol was held and his BP was maintained in acceptable range. Will increase Amlodipine to 5 mg daily and decrease Metoprolol to 12.5 mg twice daily for now. To monitor blood pressure at home and report 1 week readings to PCP for further adjustment of his home medications. # Abdominal aortic aneurysm CTA showed AAA measuring 5.5 x 5.3 cm, increased from 4.8 x 4.7 cm on 11/03/2021. Review of [facility] records show AAA in May of 5.1 x 5.2 cm with length of [address] Hua at [facility] who stated there was no indication for emergent transfer. Should follow-up with [facility] vascular in 1-2 weeks' time # Subclavian artery stenosis CTA showing chronic left subclavian artery occlusion with noticable difference between right and left arm blood pressures. Follow up outpatient with vascular surgery at [facility]. # Renal artery stenosis CTA found [id number]-gi-lqompvyw stenosis of right renal artery. Hx Left renal artery with stent in place. Possibly that is contributing to uncontrolled HTN. To Follow up outpatient with vascular surgery. Discharge plan Decrease Metoprolol to 12.5 mg twice daily to help improve heart rate Increase Amlodipine to 5mg daily for better control of blood pressure monitor blood pressure for 1 week and report readings to PCP for further adjustments of medications follow-up with [facility] vascular in 1-2 weeks time for AAA, Subclavian artery and Right Renal artery stenosis. If BP readings >160 can take extra Amlodipine and contact PCP for advice Come to the Emergency for any chest pain, severe headache or significantly elevated BP Time Attestation Discharge Coordination Time (in mins): 39 Quality: Safe Use of Opioids Does Pt have an Active Cancer Diagnosis on the Problem List?: No Quality: Stroke Does the patient have a stroke diagnosis?: No Physical Exam Vital Signs: Vital Signs: Last Vital Signs Temp 97.8 F 01/02/24 08:00 Pulse 58 01/02/24 08:45 Resp 18 01/02/24 08:00 BP 127/75 01/02/24 08:45 Pulse Ox 95 01/02/24 08:00 O2 Del Method Room Air 01/02/24 08:00 BMI result Body Mass Index 27.1 Const: Other: Constitutional : interactive, not in distress Cardiovascular : no JVP, no lower extremity edema Respiratory : bilateral chest movement, not in resp distress Gastrointestinal: soft, lax, Non tender Skin : Warm, Dry Neurological : Alert & oriented to self and place , No focal deficit DS: Data Data Completed and Pending Labs on day of discharge: Laboratory Results - last 24 hr 01/02/24 06:00 Sodium 141 Potassium 3.8 Chloride 111 H Carbon Dioxide 23 Anion Gap 11 L BUN 29 H Creatinine 2.08 H Estim Creat Clear Calc 37.8 Estimated GFR 32 Random Glucose 97 Calcium 8.6 Preliminary micro results at discharge 12/30/23 12:08 Blood Culture - Preliminary Blood - Venous No growth after 48 hours. 12/30/23 12:08 Blood Culture - Preliminary Blood - Venous No growth after [address] scan - abdomen: Radiologist's impression: ITS Impressions Abdomen/Pelvis CTA 12/30/23 11:54 IMPRESSION: Stable mild aneurysm of the ascending thoracic aorta measures 4.2 cm. Redemonstration of chronic left subclavian artery occlusion and possible royk-st-nriynprv stenosis of the left carotid origin. There is a chronic small ulceration at the origin of the right subclavian artery. Redemonstration of abdominal aortic aneurysm which has increased in size and now measures 5.5 x 5.3 cm at the level of the inferior mesenteric artery, previously 4.8 x 4.7 cm on the previous study of 11/03/2021. 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 Mild to moderate stenosis at the origin of the right renal artery. Unchanged 4 mm right upper lobe pulmonary nodule. Electronically signed by: Papa Galarza MD 12/30/2023 01:57 PM EDT RP Chest CTA 12/30/23 12:03 IMPRESSION: Stable mild aneurysm of the ascending thoracic aorta measures 4.2 cm. Redemonstration of chronic left subclavian artery occlusion and possible [id number] stenosis of the left carotid origin. There is a chronic small ulceration at the origin of the right subclavian artery. Redemonstration of abdominal aortic aneurysm which has increased in size and now measures 5.5 x 5.3 cm at the level of the inferior mesenteric artery, previously 4.8 x 4.7 cm on the previous study of 11/03/2021. 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 Mild to moderate stenosis at the origin of the right renal artery. Unchanged 4 mm right upper lobe pulmonary nodule. Electronically signed by: Papa Galarza MD 12/30/2023 01:57 PM EDT RP Discharge Plan Discharge Anticipated Discharge Date/Time: 01/02/24 09:06 Patient Disposition: Home Health Service Discharge Diagnosis: Hypertensive urgency Referrals: [facility] [Outside] - 1 Week Balaji Mayo MD [Primary Care Provider] - 1 Week Discharge Medications: New amlodipine 5 mg tablet 5 mg PO DAILY Qty: 90 0RF ([facility]) blood pressure monitor [Blood Pressure Kit] Kit See Rx Instructions .Route Qty: 1 0RF Rx Instructions: As directed Continued fluoxetine 40 mg capsule 1 cap PO DAILY bupropion HCl 150 mg tablet sustained-release 12 hr 1 tab PO DAILY atorvastatin 80 mg tablet 1 tab PO BEDTIME trazodone 100 mg tablet 2 tab PO BEDTIME lamotrigine 100 mg tablet 200 mg PO BID quetiapine 400 mg tablet extended release 24 hr 1 tab PO BEDTIME aspirin 81 mg tablet,delayed release (DR/EC) 1 tab PO DAILY fluticasone propionate 50 mcg/actuation [place],Suspension 1 spray INTRANASAL BID Rx Instructions: administer into each nostril nitroglycerin 0.4 mg tablet, sublingual 0.4 mg sublingual Q5M PRN (Reason: chest pain) Qty: 1 0RF Rx Instructions: do not exceed 3 doses per episode omeprazole 20 mg capsule,delayed release(DR/EC) 20 mg PO DAILY@0630 sennosides [senna] 8.6 mg Tablet 8.6 mg PO BEDTIME PRN (Reason: Constipation) acetaminophen 325 mg Tablet 650 mg PO Q6H PRN (Reason: Pain (Scale Score 1-3)) Changed metoprolol tartrate 25 mg tablet 12.5 mg PO BID Qty: 90 0RF Discontinued amlodipine 2.5 mg tablet 2.5 mg PO DAILY Discharge Orders: Discharge Order (Routine); Ordered 01/02/24 Ordered By: Moreno Newberry Diet: Low salt diet Activity on Discharge: As tolerated Stand Alone Forms: Patient Portal Discharge page Print Language: Telugu Care Plan Goals: Decrease Metoprolol to 12.5 mg twice daily to help improve heart rate Increase Amlodipine to 5mg daily for better control of blood pressure monitor blood pressure for 1 week and report readings to PCP for further adjustments of medications follow-up with [facility] vascular in 1-2 weeks time for AAA, Subclavian artery and Right Renal artery stenosis. If BP readings >160 can take extra Amlodipine and contact PCP for advice Come to the Emergency for any chest pain, severe headache or significantly elevated BP Health Concerns: Read below Plan of Treatment: Read below Assessment: Read below
--- NOTE | 2024-01-02 10:17 | MHC.CM.PN ---
Pt is medically cleared for discharge home with resumption of [facility] and [facility] adult fostering services. Pt will transport home via [facility], [facility] transport auth received (run # [id number]). Discharge summary faxed to [facility] and [facility].
[2024-01-02] MEDS: amLODIPine Besylate 5 MG TABLET PO (10:46)
[2024-01-02 12:00] VITALS: BP 137/66; PULSE 60; RESP 18; TEMP 36.8; O2SAT 100
--- NOTE | 2024-01-02 15:29 | P.F2F_ITS ---
Service Date Service Date: 01/02/24 Encounter Date of encounter: 01/02/24 Reasons for Services Signs and symptoms assessed: physical deconditioning uncontrolled BP Reason for halfway: teach disease management and other (BP reading and monitoring for the next week to report to PCP. ) Reason for physical therapy: home safety and mobility and therapeutic exercises Homebound: Leaving the home is medically contraindicated at this time without the asist of a device and/or another person due th the listed conditions above and below. Reason homebound: unable to drive Certification: Based on the above findings, I certify that this patient is confined to the home and needs intermittent halfway care, physical therapy and/or speech therapy, or continues to need occupational therapy. The patient is under my care, and I have initiated the establishment of the plan of care. The patient will be followed by a physician who will periodically review the plan of care. Time Spent With Patient Time: Total time managing care of this patient today ____ minutes.
== END 2024-01-02 17:05 | disposition home health service (06) | DRG 305 ==
LOC: HO.ED 16:33 → HO.EDOVER 22:05 → HO.IMC 12-31 16:23
PROVIDERS: Physician Assistant; Admitting Provider Student in an Organized Health Care Education/Training Program; Emergency Provider Emergency Medicine Emergency Medical Services; PCP Family Medicine; Visit Provider Student in an Organized Health Care Education/Training Program
DX: I16.0 Hypertensive urgency (principal); I12.9 Hypertensive chronic kidney disease with stage 1 through stage 4 chronic kidney disease, or unspecified chronic kidney disease; N18.30 Chronic kidney disease, stage 3 unspecified; I71.40 Abdominal aortic aneurysm, without rupture, unspecified; I70.1 Atherosclerosis of renal artery; I77.1 Stricture of artery; T44.7X5A Adverse effect of beta-adrenoreceptor antagonists, initial encounter; I95.9 Hypotension, unspecified; R00.1 Bradycardia, unspecified; I25.10 Atherosclerotic heart disease of native coronary artery without angina pectoris; Z95.5 Presence of coronary angioplasty implant and graft; F17.210 Nicotine dependence, cigarettes, uncomplicated; K21.9 Gastro-esophageal reflux disease without esophagitis; Z71.6 Tobacco abuse counseling; Z79.51 Long term (current) use of inhaled steroids; Z79.82 Long term (current) use of aspirin; Z79.899 Other long term (current) drug therapy
CPT/HCPCS: 36415; 71275; 74174; 80048; 80076; 81003; 82550; 82803; 83605; 83690; 83735; 83880; 84145; 84443; 84484; 85025; 85027; 85610; 85652; 85730; 86140; 86850; 86900; 86901; 87040; 93005; 97162; 99285; J0360; J1650; J2405; Q9967

== ENCOUNTER → 2023-12-30 21:57 | Outpatient (BNV) | payer OTHER, SELFPAY | PROVIDERS: Admitting Provider Student in an Organized Health Care Education/Training Program; Emergency Provider Emergency Medicine Emergency Medical Services; PCP Family Medicine; Visit Provider Student in an Organized Health Care Education/Training Program | DX: R11.0 Nausea (principal); R06.02 Shortness of breath; I16.0 Hypertensive urgency | CPT/HCPCS: 99223; 99232; 99239; G0180 ==

== ENCOUNTER 2024-04-13 18:51 | Emergency (ER) | payer OTHER, SELFPAY ==
--- NOTE | 2024-04-13 | ECG_ITS ---
Test Reason : FALL Blood Pressure : / mmHG Vent. Rate : 060 BPM Atrial Rate : 060 BPM P-R Int : 158 ms QRS Dur : 090 ms QT Int : 440 ms P-R-T Axes : 039 -13 -01 degrees QTc Int : 440 ms Normal sinus rhythm Normal ECG When compared with ECG of 01-JAN-2024 13:00, No significant change was found Referred By: Generic ED Physician Electronically Signed By:NETTIE ALVARADO
--- NOTE | ~2024-04-13 | CT_ITS ---
EXAM: CT scan of the head and cervical spine. INDICATION: fall, GANT TECHNIQUE: A noncontrast CT scan was performed from the skull base to the vertex. A noncontrast CT scan of the cervical spine was performed from the base of the skull through T1 at 2.5 mm and 1.25 mm collimation. Coronal and sagittal reformats were obtained at the acquisition workstation. This CT examination was performed using dose optimization techniques as appropriate, variously including the following: *Automated exposure control *Adjustment of mA and/or kV according to patient size (this includes techniques or standardized protocols for targeted exams where dose is matched to indication/reason for exam; i.e. extremities or head) *Use of iterative reconstruction technique DLP: 727 and 436 mGy-cm COMPARISON: 07/31/2023 FINDINGS: Head: There is no evidence of acute intracranial hemorrhage or territorial infarction. Choudhury-white matter differentiation is preserved. No abnormal mass effect or midline shift. No extra-axial fluid collections. Similar sequela of previous ischemic insult right frontal parietal junction. Scattered periventricular and deep white matter hypodensities consistent with microangiopathy. The ventricles and sulcal spaces are proportional without hydrocephalus. Proportional prominence of the ventricles and sulcal spaces. No acute osseous or soft tissue abnormalities. The mastoid air cells and visualized portions of the paranasal sinuses are well aerated. Right lens extraction noted. Cervical Spine: The atlantooccipital and atlantoaxial articulations remain well aligned. Straightening of the normal cervical lordosis. Otherwise, there is anatomic alignment of the vertebral bodies and posterior elements. No evidence of acute fracture or subluxation. The vertebral body heights and disc spaces are notable for moderate degenerative disc disease most pronounced at C5-6 and C6-7. Posterior elements intact.. There is no prevertebral soft tissue swelling. The thyroid gland and remaining cervical soft tissues are normal in appearance. The lung apices demonstrate no abnormalities. CT/CT cervical spine wo IV con IMPRESSION: No acute intracranial pathology. No fracture subluxation cervical spine. Electronically signed by: Allen Aguilar MD 04/13/2024 08:48 PM [facility]
--- NOTE | ~2024-04-13 | CT_ITS ---
EXAM: CT scan of the head and cervical spine. INDICATION: fall, GANT TECHNIQUE: A noncontrast CT scan was performed from the skull base to the vertex. A noncontrast CT scan of the cervical spine was performed from the base of the skull through T1 at 2.5 mm and 1.25 mm collimation. Coronal and sagittal reformats were obtained at the acquisition workstation. This CT examination was performed using dose optimization techniques as appropriate, variously including the following: *Automated exposure control *Adjustment of mA and/or kV according to patient size (this includes techniques or standardized protocols for targeted exams where dose is matched to indication/reason for exam; i.e. extremities or head) *Use of iterative reconstruction technique DLP: 727 and 436 mGy-cm COMPARISON: 07/31/2023 FINDINGS: Head: There is no evidence of acute intracranial hemorrhage or territorial infarction. Choudhury-white matter differentiation is preserved. No abnormal mass effect or midline shift. No extra-axial fluid collections. Similar sequela of previous ischemic insult right frontal parietal junction. Scattered periventricular and deep white matter hypodensities consistent with microangiopathy. The ventricles and sulcal spaces are proportional without hydrocephalus. Proportional prominence of the ventricles and sulcal spaces. No acute osseous or soft tissue abnormalities. The mastoid air cells and visualized portions of the paranasal sinuses are well aerated. Right lens extraction noted. Cervical Spine: The atlantooccipital and atlantoaxial articulations remain well aligned. Straightening of the normal cervical lordosis. Otherwise, there is anatomic alignment of the vertebral bodies and posterior elements. No evidence of acute fracture or subluxation. The vertebral body heights and disc spaces are notable for moderate degenerative disc disease most pronounced at C5-6 and C6-7. Posterior elements intact.. There is no prevertebral soft tissue swelling. The thyroid gland and remaining cervical soft tissues are normal in appearance. The lung apices demonstrate no abnormalities. CT/CT head/brain wo IV con IMPRESSION: No acute intracranial pathology. No fracture subluxation cervical spine. Electronically signed by: Allen Aguilar MD 04/13/2024 08:48 PM [facility]
--- NOTE | ~2024-04-13 | XR_ITS ---
EXAMINATION: XR HIP, RIGHT CLINICAL INFORMATION: fall, pain COMPARISON: 07/31/2023 TECHNIQUE: Two views of the right hip. FINDINGS: Status post right hip arthroplasty without evidence of hardware complication. No acute fracture or dislocation. Partially visualized aortic vascular graft with calcified aortic aneurysm partially seen. XR/XR hip RT w PEL1V IMPRESSION: Status post right hip arthroplasty without evidence of hardware complication. No acute fracture or dislocation. Electronically signed by: Rosanne Gunter MD 04/13/2024 08:32 PM [facility]
[2024-04-13 19:02] VITALS: BP 118/58; BP 172/98; PULSE 62; PULSE 68; RESP 17; TEMP 37; O2SAT 96; O2SAT 98; BMI 28.3
[2024-04-13 19:14] LABS: MANUAL DIFF FLAG NO
[2024-04-13 19:16] LABS: Basophils Absolute Auto 0.1 X10*3/uL (0.0-0.2); Eosinophils Absolute Auto 0.4 X10*3/uL (0.0-0.4); Eosinophils Percent Auto 5.5 % (0-4); Hematocrit 32.3 % (42.0-52.0); Hemoglobin 10.6 g/dl (14.0-18.0); Imm Gran Abs Auto 0.02 X10*3/uL (0.00-0.03); Imm Gran Pct Auto 0.3 % (0.0-0.4); Lymphocytes Absolute Auto 1.6 X10*3/uL (1.2-4.9); Lymphocytes Percent Auto 22.6 % (20-40); Mean Corpuscular HGB Conc 32.8 g/dl (31.0-36.0); Mean Corpuscular Hemoglobin 28.2 pg (27.0-33.0); Mean Corpuscular Volume 85.9 fL (80.0-98.0); Mean Platelet Volume 10.5 fL (9.4-12.4); Monocytes Absolute Auto 0.9 X10*3/uL (0.1-1.2); Monocytes Percent Auto 12.8 % (2-11); Neutrophils Absolute Auto 4.2 x10*3/uL (2.0-8.3); Neutrophils Percent Auto 57.8 % (45-73); Platelet Count 180 X10*3/uL (160-400); Red Blood Count 3.76 X10*6/uL (4.60-5.80); Red Cell Distribution Width 15.9 % (11.0-16.0); White Blood Count 7.3 X10*3/uL (4.8-10.8)
--- NOTE | 2024-04-13 19:20 | ED_ITS ---
HPI - Fall General Chief Complaint: Fall Stated Complaint: right hip pain, fall, left side kneck pain Time Seen by Provider: 04/13/24 19:09 Source: patient Mode of arrival: ambulatory Limitations: no limitations History of Present Illness ED Provider: Dr. Grazyna Hernadez HPI Narrative: Patient comes to the emergency room complaining 3 falls within 10 minutes. Patient states that he was sitting in his couch at home, tried to get up, fell forward. Patient states that he tried to get up from the floor, during his attempts he fell twice more, this time on the right side of his body. Patient is not sure if he lost consciousness, not sure if he hit his head. However, patient is complaining of headache and back pain. Patient states that he does not know if he takes any blood thinners. Related Data Home Medications ?Medication ?Instructions ?Recorded ?Confirmed atorvastatin 80 mg tablet 1 tab PO BEDTIME 01/12/21 12/30/23 bupropion HCl 150 mg tablet,12 hr 1 tab PO DAILY 01/12/21 12/30/23 sustained-release fluoxetine 40 mg capsule 1 cap PO DAILY 01/12/21 12/30/23 lamotrigine 100 mg tablet 200 mg PO BID 01/12/21 12/30/23 quetiapine 400 mg tablet,extended 1 tab PO BEDTIME 01/12/21 12/30/23 release 24 hr trazodone 100 mg tablet 2 tab PO BEDTIME Insomnia 01/12/21 12/30/23 aspirin 81 mg tablet,delayed 1 tab PO DAILY 11/03/21 12/30/23 release fluticasone propionate 50 1 spray intranasal BID Allergy 11/03/21 12/30/23 mcg/actuation nasal Symptoms spray,suspension acetaminophen 325 mg tablet 650 mg PO Q6H PRN Pain (Scale 03/29/23 12/30/23 Score 1-3) sennosides 8.6 mg tablet (senna) 8.6 mg PO BEDTIME PRN Constipation 03/29/23 12/30/23 omeprazole 20 mg capsule,delayed 20 mg PO DAILY@0630 12/30/23 12/30/23 release Previous Rx's ?Medication ?Instructions ?Recorded nitroglycerin 0.4 mg sublingual 0.4 mg sublingual Q5M PRN chest 09/12/22 tablet pain #1 tab amlodipine 5 mg tablet 5 mg PO DAILY #90 tabs 01/02/24 blood pressure monitor (Blood #1 ea 01/02/24 Pressure Kit) metoprolol tartrate 25 mg tablet 12.5 mg (1/2 x 25 mg) PO BID #90 01/02/24 tabs Allergies Allergy/AdvReac Type Severity Reaction Status Date / Time clozapine [From Clozaril] Allergy Unknown RASH Verified 04/13/24 19:04 hydroxyzine [From VISTARIL] Allergy Unknown UNKNOWN Verified 04/13/24 19:04 menthol [From Antihistamine] Allergy Unknown RASH Verified 04/13/24 19:04 nicotine [Nicotine] Allergy Unknown GUM- MAKES Verified 04/13/24 19:04 SICK TO STOMACH nut - unspecified [nut] Allergy Unknown SWELLING Verified 04/13/24 19:04 From Antihistamine Allergy Unknown RASH Uncoded 04/13/24 19:04 Review of Systems 2 Review of Systems: Constitutional : No Weight loss, No Fever, No Chills, No Night Sweats, No Fatigue, complaining of weakness ENT/Mouth : No Hearing loss, No Ear Pain, No Nasal Congestion, No Sinus Pain, No Hoarseness, No sore throat, No Rhinorrhea, No Swallowing Difficulty Eyes: No Eye Pain, No Swelling, No Redness, No Foreign Body, No Discharge, No Vision Changes Cardiovascular : No Chest Pain, No SOB, No Dyspnea on Exertion, No Orthopnea, No Edema, No Palpitations Respiratory : No Cough, No Sputum, No Wheezing, No Smoke Exposure, No Dyspnea Gastrointestinal : No Nausea, No Vomiting, No Diarrhea, No Constipation, No abdominal Pain, No Hematochezia, No Melena Genitourinary : no irregular bleeding, No Dysuria, No Urinary Frequency, No Hematuria, No Urinary Incontinence, No Urgency, No Flank Pain, No Urinary Flow Changes, No Hesitancy Musculoskeletal : Complaining of right hip pain No joint pain, No Myalgias, No Joint Swelling Skin : No Skin Lesions, No rash Neuro : No Weakness, No Numbness, No Paresthesias, No Loss of Consciousness, No Dizziness, No Headache Psych : No Anxiety/Panic, No Depression, No SI/HI/AH/VH, No Social Issues, Heme/Lymph: No Bruising, No Bleeding,No Lymphadenopathy Endocrine : No Polyuria, No Polydipsia, No Temperature Intolerance PMFSH Past Medical History Medical History Stage 3b chronic kidney disease Multiple falls CAD (coronary artery disease) Schizoaffective disorder Peripheral arterial disease History of CVA (cerebrovascular accident) Bilateral carotid artery stenosis Stroke due to stenosis of carotid artery Arthritis Myocardial infarct Hypertension Surgical History H/O heart artery stent No significant past surgical history Family History Family History Father Heart disease Social History Social History Household Members: None Housing: Apartment Do you presently have visiting nurse or other home services: Yes Alcohol intake: former Patient Tobacco Use Status: Current everyday Tobacco user Tobacco use type: Cigarette Cigarettes Per Day: 4 Smoked in Last 30 Days: Yes Second Hand Smoke Exposure: No Use of substances other than those prescribed or required for medical reasons: No Advance Directives: Yes Advance Directives on File: Yes Advance Directives Date on File: 01/18/21 Do you have a plan to hurt others: No Plan service: No Physical Exam 2 Vital Signs: Vital Signs: Last Vital Signs Temp 98.6 F 04/13/24 19:02 Pulse 62 04/13/24 19:02 Resp 17 04/13/24 19:02 BP 118/58 L 04/13/24 19:02 Pulse Ox 96 04/13/24 19:02 O2 Del Method Room Air 04/13/24 19:02 BMI result Body Mass Index 28.3 Const: Other: Appearance: Alert. Oriented X3. No acute distress. Eyes: Pupils equal, round and reactive to light. ENT: Pharynx normal. Neck: On C-spine precautions, no palpable step-offs, no significant discomfort to palpation in the posterior aspect of the neck, no C-spine tenderness CVS: Normal heart rate and rhythm. Pulses normal. Normal S1 and S2 Respiratory: No respiratory distress. Breath sounds normal. No Wheezing. No rales Abdomen: Soft and nontender. No rigidity. No distention. Skin: Skin warm and dry. Normal skin color. Normal skin turgor. Extremities: No lower extremity edema. No Lacerations. No Rash Neuro: Oriented X 3. No motor deficit. No sensory deficit. Moving all extremities. No slurred speech. CN 2 through 12 grossly intact Psych: calm, cooperative, normal affect Medical Decision Making Medical Decision Making [facility] Narrative: My interpretation of labs: At baseline hematology, normal coagulation times, chemistry shows a creatinine of 2.16 which is patient's baseline, chronic -urine negative for UTI -my interpretation of x-ray of the hip: Normal alignment of arthroplasty of the hip CT scan of the head and neck, no obvious abnormality, no brain bleed, no cervical spine injury -COVID test positive Patient does not have any respiratory distress, no oxygen desaturations. Patient's main symptom is weakness I discussed the patient with Dr. Yañez, patient is not requiring any other medical treatment at this time, not using oxygen. No need for admission. Patient was stay overnight for PT case management consult. Patient agrees with plan Differential Diagnosis Differential Diagnoses: The differential diagnosis associated with the presentation includes (Mechanical fall, TIA, viral illness, UTI) Admission/Observation Consideration of admission/observation: Escalation of care including admission/observation considered (Patient is under physician observation waiting for evaluation of case management and physical therapy, patient may need short- term rehab) Lab Data [facility] Lab Attestation statement: I reviewed the patient's lab results. 04/13/24 19:10 04/13/24 19:10 Labs: Lab Results 04/13/24 04/13/24 04/13/24 Range/Units 19:10 20:22 20:24 WBC 7.3 (4.8-10.8) X10*3/uL RBC 3.76 L (4.60-5.80) X10*6/uL Hgb 10.6 L (14.0-18.0) g/dl Hct 32.3 L (42.0-52.0) % MCV 85.9 (80.0-98.0) fL MCH 28.2 (27.0-33.0) pg MCHC 32.8 (31.0-36.0) g/dl RDW 15.9 (11.0-16.0) % Plt Count 180 (160-400) X10*3/uL MPV 10.5 (9.4-12.4) fL Immature Gran % (Auto) 0.3 (0.0-0.4) % Neut % (Auto) 57.8 (45-73) % Lymph % (Auto) 22.6 (20-40) % [place] % (Auto) 12.8 H (2-11) % Eos % (Auto) 5.5 H (0-4) % Baso % (Auto) 1.0 (0-2) % Lymph # (Auto) 1.6 (1.2-4.9) X10*3/uL [place] # (Auto) 0.9 (0.1-1.2) X10*3/uL Eos # (Auto) 0.4 (0.0-0.4) X10*3/uL Baso # (Auto) 0.1 (0.0-0.2) X10*3/uL Abs Immat Gran (auto) 0.02 (0.00-0.03) X10*3/uL Absolute Neuts (auto) 4.2 (2.0-8.3) x10*3/uL Absolute Nucleated RBC 0.000 (0.0-0.012) X10*3/uL Nucleated RBC % (auto) 0.0 (0.0-0.2) /100WBC PT 12.1 (10.9-12.4) SEC INR 1.0 (0.9-1.1) Sodium 137 (135-145) mmol/L Potassium 3.8 (3.3-5.1) mmol/L Chloride 109 H (96-108) mmol/L Carbon Dioxide 20 L (22-29) mmol/L Anion Gap 12 (12-20) BUN 25 H (9-16) mg/dL Creatinine 2.16 H (0.5-1.4) mg/dL Estim Creat Clear Calc 39.5 Estimated GFR 31 Random Glucose 90 (60-115) mg/dL Calcium 7.7 L D (8.4-10.2) mg/dL Magnesium 1.7 (1.6-2.6) mg/dL Total Bilirubin 0.2 (0.0-1.0) mg/dL AST 21 (5-37) U/L ALT 10 (0-40) U/L Alkaline Phosphatase 162 H (39-117) U/L Troponin I High Sens 9.0 (<3.5-35.0) ng/L Total Protein 6.5 (6.5-8.0) g/dL Albumin 3.1 L (3.5-5.0) g/dL Urine Color Yellow Urine Appearance Clear Urine pH 5.5 (5.0-9.0) Ur Specific [place] 1.010 (1.005-1.025) Urine Protein Negative (Neg-Trace) mg/dL Urine Glucose (UA) Negative (Negative) mg/dL Urine Ketones Negative (Negative) mg/dL Urine Blood Trace H (Negative) Urine Nitrite Negative (Negative) Ur Leukocyte Esterase Negative (Negative) Urine RBC 3-5 H (0-2) /HPF Urine WBC 0-5 (0-5) /HPF Ur Squamous Epith Cells 0-2 (0-2) /HPF Urine Bacteria None Seen (None Seen) Hyaline Casts 0-2 (0-2) /LPF Urine Opiates Screen Not Detected (Not Detect) Ur Buprenorphine Scrn Not Detected (Not Detect) ng/mL Ur Oxycodone Screen Not Detected (Not Detect) ng/mL Urine Methadone Screen Not Detected (Not Detect) ng/mL Urine Fentanyl Screen Not Detected (Not Detect) Ur Barbiturates Screen Not Detected (Not Detect) Ur Phencyclidine Scrn Not Detected (Not Detect) Ur Amphetamines Screen Not Detected (Not Detect) U Benzodiazepines Scrn Not Detected (Not Detect) Urine Cocaine Screen Not Detected (Not Detect) U Marijuana (THC) Screen Not Detected (Not Detect) Ethyl Alcohol < 10 mg/dL COVID-19 (UCHE) Positive A (Negative) COVID-19 Clin Com See Note Independent Interpretation I performed an independent interpretation of an: Plain X-Ray and CT Scan Radiology Impression Discussion of test interpretation with radiology: I have reviewed the radiologist's reading. Radiologist Impression: Status post right hip arthroplasty without evidence of hardware complication. No acute fracture or dislocation. Partially visualized aortic vascular graft with calcified aortic aneurysm partially seen. XR/XR hip RT w PEL1V IMPRESSION: Status post right hip arthroplasty without evidence of hardware complication. No acute fracture or dislocation. Head: There is no evidence of acute intracranial hemorrhage or territorial infarction. Choudhury-white matter differentiation is preserved. No abnormal mass effect or midline shift. No extra-axial fluid collections. Similar sequela of previous ischemic insult right frontal parietal junction. Scattered periventricular and deep white matter hypodensities consistent with microangiopathy. The ventricles and sulcal spaces are proportional without hydrocephalus. Proportional prominence of the ventricles and sulcal spaces. No acute osseous or soft tissue abnormalities. The mastoid air cells and visualized portions of the paranasal sinuses are well aerated. Right lens extraction noted. Cervical Spine: The atlantooccipital and atlantoaxial articulations remain well aligned. Straightening of the normal cervical lordosis. Otherwise, there is anatomic alignment of the vertebral bodies and posterior elements. No evidence of acute fracture or subluxation. The vertebral body heights and disc spaces are notable for moderate degenerative disc disease most pronounced at C5-6 and C6-7. Posterior elements intact.. There is no prevertebral soft tissue swelling. The thyroid gland and remaining cervical soft tissues are normal in appearance. The lung apices demonstrate no abnormalities. CT/CT head/brain wo IV con IMPRESSION: No acute intracranial pathology. No fracture subluxation cervical spine. Critical Care Time Critical Care Time Critical Care Time: Yes Total Critical Care Time: 45 Attestation: I have personally provided critical care time. Time includes review of lab data, radiology results, discussion with consultants, and monitoring for potential decompensation. Intervention performed as documented. Discharge Plan Discharge Clinical Impression: Weakness, Fall, SARS-CoV-2 positive Patient Disposition: Still a Patient Prescriptions: No Action fluoxetine 40 mg capsule 1 cap PO DAILY bupropion HCl 150 mg tablet sustained-release 12 hr 1 tab PO DAILY atorvastatin 80 mg tablet 1 tab PO BEDTIME trazodone 100 mg tablet 2 tab PO BEDTIME lamotrigine 100 mg tablet 200 mg PO BID quetiapine 400 mg tablet extended release 24 hr 1 tab PO BEDTIME aspirin 81 mg tablet,delayed release (DR/EC) 1 tab PO DAILY fluticasone propionate 50 mcg/actuation [place],Suspension 1 spray INTRANASAL BID Rx Instructions: administer into each nostril nitroglycerin 0.4 mg tablet, sublingual 0.4 mg sublingual Q5M PRN (Reason: chest pain) Qty: 1 0RF Rx Instructions: do not exceed 3 doses per episode omeprazole 20 mg capsule,delayed release(DR/EC) 20 mg PO DAILY@0630 amlodipine 5 mg tablet 5 mg PO DAILY Qty: 90 0RF metoprolol tartrate 25 mg tablet 12.5 mg PO BID Qty: 90 0RF (DME) blood pressure monitor [Blood Pressure Kit] Kit See Rx Instructions .Route Qty: 1 0RF Rx Instructions: As directed sennosides [senna] 8.6 mg Tablet 8.6 mg PO BEDTIME PRN (Reason: Constipation) acetaminophen 325 mg Tablet 650 mg PO Q6H PRN (Reason: Pain (Scale Score 1-3)) Print Language: Finnish
[2024-04-13 19:30] LABS: Alanine Aminotransferase 10 U/L (0-40); Albumin Level 3.1 g/dL (3.5-5.0); Alkaline Phosphatase 162 U/L (39-117); Anion Gap 12 (12-20); Aspartate Amino Transferase 21 U/L (5-37); Bilirubin Total 0.2 mg/dL (0.0-1.0); Blood Urea Nitrogen 25 mg/dL (9-16); Calcium 7.7 mg/dL (8.4-10.2); Carbon Dioxide 20 mmol/L (22-29); Chloride 109 mmol/L (96-108); Creatinine Clr Calc Pharmacy 39.5; Estimated Glomerular Filt Rate 31; Glucose Random 90 mg/dL (60-115); Potassium 3.8 mmol/L (3.3-5.1); Sodium 137 mmol/L (135-145); Total Protein 6.5 g/dL (6.5-8.0)
--- NOTE | 2024-04-13 20:09 | PC.NURSE ---
pt biba from home, a&ox4, respirations even and unlabored. pt reports x3 falls out of bed today, reports the last 3 weeks he has been feeling weak and ambulating with a cane. pt reports he slipped out of his chair and fell onto his hip. on arrival, pt in c collar. pt unknown headstrike,loc, thinners. pt reports left sided deficits from stroke 2 months ago. 18G placed in right forearm, labs obtained. pt sinus 68-72bpm.
[2024-04-13 20:37] LABS: Appearance Urine Clear; Color Urine Yellow; Glucose Urine UA Negative (Negative); Leukocyte Esterase Urine Negative (Negative); Nitrite Urine Negative (Negative); PH 5.5 (5.0-9.0); UMIC TRIGGER UACC YES; Urine Blood Trace (Negative); Urine Ketones Negative (Negative); Urine Protein Negative (Neg-Trace)
[2024-04-13 20:42] LABS: Prothrombin Time 12.1 SEC (10.9-12.4)
[2024-04-13 20:43] LABS: Bacteria Urine None Seen (None Seen); Hyaline Casts Urine 0-2 /LPF (0-2); Squamous Epithelial Cell Urine 0-2 /HPF (0-2); WBC Urine 0-5 /HPF (0-5)
[2024-04-13 20:48] LABS: Ethanol < 10 mg/dL; Magnesium 1.7 mg/dL (1.6-2.6)
[2024-04-13 20:52] LABS: COVID-19 Test Positive (Negative); IDNOW Serial# 08D9AD1C
[2024-04-13 21:05] LABS: Amphetamine Screen Urine Not Detected (Not Detect); Barbiturates, Urine Not Detected (Not Detect); Benzodiazepines Screen Urine Not Detected (Not Detect); Buprenorphine Scr Not Detected (Not Detect); Cannabinoid Screen Urine Not Detected (Not Detect); Cocaine Screen Urine Not Detected (Not Detect); Fentanyl, urine Not Detected (Not Detect); Methadone Screen, Urine Not Detected (Not Detect); Opiate Screen Urine Not Detected (Not Detect); Oxycodone Screen Urine Not Detected (Not Detect); Phencyclidine Screen Urine Not Detected (Not Detect)
--- NOTE | 2024-04-13 21:55 | PC.NURSE ---
pt assisted in bed and gown change. pt given sandwich and drink per request.
[2024-04-14] VITALS (7 sets, daily range): BP systolic 96–202; BP diastolic 66–98; PULSE 55–65; RESP 14–18; TEMP 36.9–37.1; O2SAT 97–99
--- NOTE | 2024-04-14 14:52 | PHA.MEDREC ---
Pharmacy Consult ? Medication Reconciliation Pharmacy has completed the medication reconciliation. Patient does not know any of his medications but he does know he is no longer taking laxatives. He does not have a direct contact for the person that helps him with his meds. His [facility] team is not in office today. Used claim history and previous discharge paper to verify medications.
--- NOTE | 2024-04-14 14:54 | MHC.CM.ED ---
Received case management consult overnight. Patient came to the ER due to a fall. Work up essentially negative. Physical therapy eval is ordered and pending. Will not be available before tomorrow 04/15. Met with patient in regards to discharge planning. Patient states [facility] helps him with his medication daily. Patient denying the need for STR or physical therapy eval. Patient requesting to return home. Patient states Lauren will transport him home. Patient does not have Lauren's number. T/W attempted to reach [facility] via telephone at [phone]. No answer. Left voicemail JULIAN Arcos nurse via telephone at [phone] requesting return telephone call. Continue to monitor for d/c needs.
--- NOTE | 2024-04-14 15:02 | PC.NURSE ---
called down to pharmacy for unavailable medications from [facility], awaiting meds to be brought to unit.
[2024-04-14] MEDS: Aspirin Enteric Coated 81 MG TABLET.DR PO (16:00)
[2024-04-14] MEDS: buPROPion HCl XL 300 MG TAB.ER.24H PO (16:00)
[2024-04-14] MEDS: lamoTRIgine 100 MG TABLET 200 MG PO ×2 (16:01→21:21)
[2024-04-14] MEDS: FLUoxetine HCl 20 MG CAPSULE 40 MG PO (16:01)
[2024-04-14] MEDS: Metoprolol Tartrate 12.5 MG HALFTAB PO ×2 (16:01→21:21)
[2024-04-14] MEDS: amLODIPine Besylate 2.5 MG TABLET PO (16:01)
--- NOTE | 2024-04-14 16:41 | MHC.EDTECH ---
125Ml urine, yellow, urinal
[2024-04-14] MEDS: traZODone HCL 100 MG TABLET 200 MG PO (21:20)
[2024-04-14] MEDS: Atorvastatin Calcium 80 MG TABLET PO (21:21)
[2024-04-15 01:46] VITALS: BP 158/78; PULSE 68; O2SAT 98
[2024-04-15] MEDS: Omeprazole 20 MG CAPSULE.DR PO (07:14)
--- NOTE | 2024-04-15 08:25 | MHC.EDTECH ---
pt ate 100% of his breakfast
[2024-04-15] MEDS: amLODIPine Besylate 2.5 MG TABLET PO (08:37)
[2024-04-15] MEDS: Metoprolol Tartrate 12.5 MG HALFTAB PO (08:37)
[2024-04-15] MEDS: buPROPion HCl XL 300 MG TAB.ER.24H PO (08:37)
[2024-04-15] MEDS: FLUoxetine HCl 20 MG CAPSULE 40 MG PO (08:37)
[2024-04-15] MEDS: Aspirin Enteric Coated 81 MG TABLET.DR PO (08:37)
[2024-04-15] MEDS: lamoTRIgine 100 MG TABLET 200 MG PO (08:37)
[2024-04-15] MEDS: Fluticasone Propionate Nasal 16 GM SPRAY 1 SPRAY NOSTRIL-B (08:38)
[2024-04-15 10:25] VITALS: BP 182/80; PULSE 58; RESP 18; TEMP 36.7; O2SAT 95
[2024-04-15 14:00] VITALS: BP 173/75; PULSE 59; RESP 18; TEMP 36.6; O2SAT 97
--- NOTE | 2024-04-15 14:27 | MHC.CM.ED ---
Patient remains in ER overflow. Physical therapy eval completed. Home services are recommended. Spoke with Chinedu at [facility]. Patient is no longer active with [facility]. [facility] provides help with his medication. Referral for physical therapy will be broadcasted in [facility]. Attempted to speak to Lauren, patient's outpatient [facility] worker via telephone at [phone]. Left a message requesting return telephone call. Chema RIZZO booked due to Covid. [facility] with chart. Patient, Morelia DECKER and Lola CALDERON aware. Patient has his keys to get into the main entrance of his apartment but doesn't have the mcbride for his apartment. T/W is tryiing to reach [facility], [facility] apartment property manager. Continue to monitor for d/c needs.
--- NOTE | 2024-04-15 17:28 | MHC.EDTECH ---
pt ate 100% of his lunch, 480cc of fluids
[2024-04-15 17:54] VITALS: BP 173/75; PULSE 59; RESP 18; TEMP 36.6; O2SAT 97
== END 2024-04-15 17:55 | disposition home or self-care (01) ==
PROVIDERS: Emergency Provider Emergency Medicine; PCP Family Medicine
DX: U07.1 COVID-19 (principal); R53.1 Weakness; R29.6 Repeated falls; R51.9 Headache, unspecified; M54.2 Cervicalgia; Z91.81 History of falling; I10 Essential (primary) hypertension; Z86.73 Personal history of transient ischemic attack (TIA), and cerebral infarction without residual deficits; F17.210 Nicotine dependence, cigarettes, uncomplicated; Z79.02 Long term (current) use of antithrombotics/antiplatelets; Z79.899 Other long term (current) drug therapy; Z79.82 Long term (current) use of aspirin
CPT/HCPCS: 36415; 70450; 72125; 73502; 80053; 80307; 81001; 83735; 84484; 85025; 85610; 87635; 93005; 97161; 99285

== ENCOUNTER → 2024-04-13 19:04 | Outpatient (BNV) | payer OTHER, SELFPAY | PROVIDERS: Emergency Provider Emergency Medicine; PCP Family Medicine; Visit Provider Internal Medicine | DX: I25.10 Atherosclerotic heart disease of native coronary artery without angina pectoris (principal); I10 Essential (primary) hypertension; U07.1 COVID-19 | CPT/HCPCS: 93010 ==

== ENCOUNTER → 2024-12-22 16:17 | Outpatient (BNV) | payer OTHER, SELFPAY | PROVIDERS: Emergency Provider Emergency Medicine; Visit Provider Specialist | DX: I69.314 Frontal lobe and executive function deficit following cerebral infarction (principal); M25.561 Pain in right knee; J98.11 Atelectasis; M19.071 Primary osteoarthritis, right ankle and foot | CPT/HCPCS: 70450; 71045; 73562; 73630 ==

== ENCOUNTER 2024-12-22 16:23 | Inpatient (IN) | payer OTHER, SELFPAY ==
--- OUTSIDE RECORDS SUMMARY | 2023-10-23 13:28 | XMS_ITS | Encounter Summary ---
Author Organization [facility] Address [address] [place] [phone] Phone Care Team Providers Care Nut Sheller Machine Operator Name Role Phone Balaji Mayo MD Primary Care Provider + Balaji Mayo MD Unavailable [phone] Encounter Details Date Type Department Care Team (Late st Contact Info) Description 10/23/2023 1:28 PM EDT Hospital Encounter [facility] [address] [place] [phone] Anupama Ball FNP [address] [place] [phone] [email or web address] Social History Tobacco Use Types Packs/Day [...] 11:41 PM EDT Eveline Toro RN * [place] Suicide Severity Rating Scale (Screener/Recent Self-Report) Question [...] clinician's provided indication for this examination in [facility]: Trauma; DROPPED A CAN ON FOOT [...] calcaneal spur and occlusion specified. Anupama Ball FISH LIVER SORTER IMG XR LOWER EXTREMITY Genie l Result documented in this encounter Visit Diagnoses Not on filedocumented in this encounter Care Teams Nut Sheller Machine Operator Relationship Specialty Start Date End Date Balaji Mayo MD [address] [place] [phone] PCP - General Family Medicine 10/23/23 Balaji Mayo MD [address] [place] [phone] Family Medicine 10/23/23 documented as of this encounter Additional Source Comments The information contained in this document represents components of the legal health record. It is not the complete legal health record.[facility]
--- NOTE | ~2024-12-22 | CT_ITS ---
CLINICAL HISTORY: Abd pain --- Additional Notes or Special Instructions: Pt met severe sepsis with unclear source. Rest of workup CT abdomen and pelvis without contrast Comparison: CT/SR - CT ABDOMEN PELVIS ANGIOGRAPHY WITH IV CONTRAST - 12/30/23 12:03 EDT Findings: No nephrolithiasis or hydronephrosis. Calcifications in the renal pelvises are vascular. Mild bilateral perinephric stranding, nonspecific No bladder stone. Trace dependent change at the lung bases. Mild smooth interlobular septal thickening with a trace amount of pleural fluid. Increased subpleural reticulation. Cardiomegaly. Unremarkable gallbladder. The other solid organs are normal. Small hiatal hernia. No bowel wall thickening or dilation. A normal appendix is identified. Suprarenal abdominal aortic aneurysm measuring 3.2 cm, unchanged. Stent in the left proximal renal artery. Infrarenal abdominal aorta endovascular stent graft with extension into the bilateral common iliac arteries, new since the prior study. The aneurysm sac measures up to 5.2 x 4.9 cm. The infrarenal abdominal aortic aneurysm previously measured 5.2 cm. Unchanged ectasia of the left common iliac artery, measuring 1.7 cm. Severe calcified atherosclerotic disease. No lymphadenopathy. No ascites. No acute fracture. Intact right total hip arthroplasty. Impression: No acute findings to explain the patient's presentation with sepsis. Question of mild pulmonary edema. This document has been electronically signed by: Emmy Champion MD on 12/23/2024 18:42:19
--- NOTE | ~2024-12-22 | XR_ITS ---
CLINICAL HISTORY: Fall 3 view right foot Comparison: None provided Findings: No acute fracture. No dislocation. Mild degenerative changes at 1st metatarsophalangeal joint and distal interphalangeal joint with hammertoes of the 2nd through 5th toes. No erosions. Calcaneal enthesophytes. No ankle effusion. No radiopaque foreign body. IMPRESSION: 1. No acute findings. This document has been electronically signed by: Shauna Chambers MD on 12/22/2024 19:29:46
--- NOTE | ~2024-12-22 | XR_ITS ---
XR KNEE HARLEY 3V HISTORY: Fall, landed on these COMPARISON: 12/22/2024, 12/15/2015. TECHNIQUE: 4 views of each knee obtained. FINDINGS: RIGHT KNEE: No fracture, dislocation, or suspicious bone lesion. Minimal joint space narrowing in the medial compartment. Lateral and patellofemoral compartments are normal. Normal patellar alignment. There is a superior patellar enthesophyte. No evidence of joint effusion. Soft tissues demonstrate vascular calcifications but are otherwise normal. LEFT KNEE: No fracture, dislocation, or suspicious bone lesion. There is evidence of an old MCL injury. Joint spaces are normal in all 3 compartments. Normal patellar alignment. No evidence of joint effusion. Soft tissues demonstrate vascular calcifications but are otherwise normal. XR/XR Knee Harley 4V IMPRESSION: 1. No acute bony abnormality in either knee. No evidence of joint effusions. Electronically signed by: Artie Osorio MD 12/26/2024 08:47 AM EDT
--- NOTE | ~2024-12-22 | CT_ITS ---
CLINICAL HISTORY: fall on anti-coags CT head without contrast Comparison: CT/REG/SR - CT HEAD WITHOUT IV CONTRAST - 04/13/24 19:40 EST Findings: No intra-axial mass, midline shift, hydrocephalus, or acute hemorrhage. There is atrophy. There are nonspecific bilateral supratentorial white matter hypodensities most suggestive of chronic small-vessel ischemic changes. Stable right frontoparietal encephalomalacia suggestive of an old infarct. Stable nonacute lacunar infarct in the right thalamus. Atherosclerotic vascular disease. There is no sinus or mastoid fluid. The orbits are within normal limits. No acute skull fracture. Nonfusion of the posterior arch of C1 which is developmental. IMPRESSION: 1. No acute intracranial findings. 2. Atrophy, old right frontoparietal infarct and right thalamic lacunar infarct as well as chronic white matter ischemic changes. This document has been electronically signed by: Shauna Chambers MD on 12/22/2024 17:51:47
--- NOTE | ~2024-12-22 | XR_ITS ---
CLINICAL HISTORY: Fall 1 view chest x-ray Comparison: CR/IN/SR - XR CHEST 2 VIEWS - 07/23/23 16:52 EDT Findings: Heart size is borderline enlarged. Atherosclerotic vascular disease of the aortic arch. Somewhat low lung volumes with mildly elevated right hemidiaphragm. No consolidation, significant pleural effusion or pneumothorax. Mild right basilar opacities likely atelectasis. No acute fracture. IMPRESSION: 1. No acute findings. This document has been electronically signed by: Shauna Chambers MD on 12/22/2024 19:29:05
--- NOTE | ~2024-12-22 | CT_ITS ---
EXAMINATION: CT HEAD WITHOUT CONTRAST CLINICAL INFORMATION: Fall, yesterday night COMPARISON: December 22, 2024 TECHNIQUE: Contiguous axial imaging was performed from the skull base to vertex without intravenous administration of contrast. This CT examination was performed using dose optimization techniques as appropriate, variously including the following: *Automated exposure control *Adjustment of mA and/or kV according to patient size (this includes techniques or standardized protocols for targeted exams where dose is matched to indication/reason for exam; i.e. extremities or head) *Use of iterative reconstruction technique DLP: 897 mGY*cm FINDINGS: There is no acute ischemic change. There are changes from remote infarct in the posterior right frontal lobe and right thalamus. Unchanged. There is extensive periventricular white matter hypodensities, unchanged. There is moderate generalized atrophy. There is no intracranial hemorrhage. There is no mass-effect or midline shift. Basal cisterns and ventricles are within normal limits for age/cerebral volume. Orbits are symmetrical and unremarkable. Paranasal sinuses and mastoid air cells are pneumatized. There are no bony abnormalities. CT/CT head/brain wo IV con IMPRESSION: No acute intracranial abnormality. Extensive changes consistent with small vessel disease and remote posterior right frontal lobe and right thalamic infarct. Electronically signed by: Ervin Nguyen MD 12/26/2024 09:41 AM EDT
--- NOTE | ~2024-12-22 | XR_ITS ---
CLINICAL HISTORY: fall rt knee pain 4 view right knee Comparison: None provided Findings: No acute fracture. No dislocation. Mild thickening of proximal aspect of the fibula likely due to old injury. No significant loss of joint space, osteophytes, or erosions. Superior patellar enthesophyte. No joint effusion. No radiopaque foreign body. IMPRESSION: 1. No acute findings. This document has been electronically signed by: Shauna Chambers MD on 12/22/2024 17:46:04
[2024-12-22 16:35] VITALS: BP 133/66; PULSE 71; PULSE 76; RESP 18; TEMP 36.8; O2SAT 100; O2SAT 98; BMI 29.5
--- OUTSIDE RECORDS SUMMARY | 2024-12-22 17:02 | XMS_ITS | Encounter Summary ---
Author Organization [facility], Address [address] [place] [address] Phone Care Team Providers Care Social Work Administrator Name Role Phone Balaji Mayo MD Primary Care Provider [phone] Encounter Details Date Type Department Care Team (Late st Contact Info) Description 04/10/2023 Documentation Only [facility], - Carl [address] [facility] [address] [place] [address] [address] [phone] Social History Tobacco Use Types Packs/Day Years Used Date Smoking Tobacco: Every Day Sex and Gender Information Value Date Recorded Sex Assigned at Not on file Legal Sex Male 5:24 PM EST Gender Identity Not on file Sexual Orientation Not on file documented as of this encounter Plan of Treatment Not on file documented as of this encounter Visit Diagnoses Not on filedocumented in this encounter Care Teams Social Work Administrator Relationship Specialty Start Date End Date Balaji Mayo MD [address] [facility] [place] [address] PCP - General Family Medicine 06/06/22 documented as of this encounter
--- OUTSIDE RECORDS SUMMARY | 2024-12-22 17:02 | XMS_ITS | Encounter Summary ---
Author Organization [facility] Address [address] [place] [address] Care Team Providers Care Home Performance Laborer Name Role Phone Balaji Mayo MD Primary Care Provider [phone]- [phone] Encounter Details Date Type Department Care Team (Late st Contact Info) Description 11/18/2024 Lab Requisition [facility] - Main Lab [address] [facility] [place] [address] Radha Tyson MD [address] [address] Essential (primary) hypertension Social History Tobacco Use Types Packs/Day Years Used Date Smoking Tobacco: Every Day Smokeless Tobacco: Never Alcohol Use Standard Drinks/Week Comments Not Currently 0 (1 standard drink = 0.6 oz pur e alcohol) Sex and Gender Information Value Date Recorded Sex Assigned at Not on file Legal Sex Male 4:32 PM EST Gender Identity Not on file Sexual Orientation Not on file documented as of this encounter Plan of Treatment Not on file documented as of this encounter Procedures Procedure Name Priority Date/Time Associated Diagnosis Comments COMPLETE BLOOD COUNT Routine 11/18/2024 5:54 AM EDT Essential (primary) hypertension BASIC METABOLIC PANEL Routine 11/18/2024 5:54 AM EDT Essential (primary) hypertension documented in this encounter Results * (ABNORMAL) Basic metabolic panel (11/18/2024 5:54 AM EDT) Sodium 140 133 - 145 mmol/L LAB CHEMISTRY METHOD 11/18/2024 12:50 PM [facility] Potassium 3.8 3.5 - 5.5 mmol/L LAB CHEMISTRY METHOD 11/18/2024 12:50 PM [facility] Chloride 109 96 - 110 mmol/L LAB CHEMISTRY METHOD 11/18/2024 12:50 PM [facility] CO2 23 21 - 32 mmol/L LAB CHEMISTRY METHOD 11/18/2024 12:50 PM [facility] Anion Gap 8 3 - 11 LAB CHEMISTRY METHOD 11/18/2024 12:50 PM [facility] Glucose 75 70 - 100 mg/dL LAB CHEMISTRY METHOD 11/18/2024 12:50 PM [facility] BUN 24 5 - 25 mg/dL LAB CHEMISTRY METHOD 11/18/2024 12:50 PM [facility] Creatinine 1.98(H) 0.70 - 1.30 mg/dL LAB CHEMISTRY METHOD 11/18/2024 12:50 PM [facility] eGFR 36(L) >=60 mL/min/1. 73m2 LAB CHEMISTRY METHOD 11/18/2024 12:50 PM [facility] Comment:Calculation based on the Chronic Kidney Disease Epidemiology Collaboration (CKD-EPI) equation refit without adjustment for race. BUN/Creatinine Ratio 12.1 LAB CHEMISTRY METHOD 11/18/2024 12:50 PM [facility] Calcium 8.4(L) 8.5 - 10.5 mg/dL LAB CHEMISTRY METHOD 11/18/2024 12:50 PM [facility] Blood Venous blood specimen / Unknown Venipuncture / Unknown 11/18/2024 5:54 AM EDT 11/18/2024 11:16 AM EDT us Radha Tyson MD LAB BLOOD ORDERABLES Fin al Result [facility] [address] [place] [address], * (ABNORMAL) Complete blood count (11/18/2024 5:54 AM EDT) [facility] WBC 9.8 4.8 - 10.8 K/mcL LAB HEMETOLOGY METHOD 11/18/2024 12:17 PM EDT [facility] RBC 4.00(L) 4.50 - 5.50 M/mcL LAB HEMETOLOGY METHOD 11/18/2024 12:17 PM EDT [facility] Hemoglobin 11.3(L) 13.5 - 17.5 g/dL LAB HEMETOLOGY METHOD 11/18/2024 12:17 PM EDT [facility] Hematocrit 36.4(L) 42.0 - 54.0 % LAB HEMETOLOGY METHOD 11/18/2024 12:17 PM EDT [facility] MCV 90.1 79.0 - 98.0 FL LAB HEMETOLOGY METHOD 11/18/2024 12:17 PM EDT [facility] MCH 28.0 27.0 - 32.0 pcg LAB HEMETOLOGY METHOD 11/18/2024 12:17 PM EDT [facility] MCHC 31.0(L) 32.0 - 37.0 g/dL LAB HEMETOLOGY METHOD 11/18/2024 12:17 PM EDT [facility] RDW 14.6 11.0 - 15.0 % LAB HEMETOLOGY METHOD 11/18/2024 12:17 PM EDT [facility] Platelets 305 130 - 400 K/mcL LAB HEMETOLOGY METHOD 11/18/2024 12:17 PM EDT [facility] MPV 11.0 7.0 - 11.0 FL LAB HEMETOLOGY METHOD 11/18/2024 12:17 PM EDT [facility] NRBC 0.0 <1.0 % LAB HEMETOLOGY METHOD 11/18/2024 12:17 PM EDT [facility] NRBC Absolute 0.00 <0.10 K/mcL LAB HEMETOLOGY METHOD 11/18/2024 12:17 PM EDT [facility] Blood Venous blood specimen / Unknown Venipuncture / Unknown 11/18/2024 5:54 AM EDT 11/18/2024 11:16 AM EDT us Radha Tyson MD LAB BLOOD ORDERABLES Fin al Result [facility] [address] [place] [address], documented in this encounter Visit Diagnoses Diagnosis Essential (primary) hypertension Unspecified essential hypertension documented in this encounter Care Teams Home Performance Laborer Relationship Specialty Start Date End Date Balaji Mayo MD [facility] [address] [place] [id number] PCP - General Internal Medicine 06/04/20 documented as of this encounter
--- OUTSIDE RECORDS SUMMARY | 2024-12-22 17:02 | XMS_ITS | Clinical Summary ---
Author Organization [facility] [employer] Address [address] [facility] [place], [place] [address] Phone Care Team Providers Care Solutions Manager Name Role Phone Balaji Mayo MD Primary Care Provider [phone]- [phone] Allergies No known active allergies Medications lamoTRIgine (LaMICtal) 25 mg chewable tablet Take 1 tablet (25 mg total) by mouth. Active FLUoxetine (PROzac) 20 mg capsule Take 1 capsule (20 mg total) by mouth 1 (one) time each day. Active traZODone (DESYREL) 100 mg tablet Take 1 tablet (100 mg total) by mouth at bedtime. Active esomeprazole (NexIUM) [address] capsule Take 1 capsule (20 mg total) by mouth 1 (one) time each day before breakfast. Do not open capsule. Active acetaminophen (TYLENOL) 325 mg tablet Take by mouth every 6 (six) hours if needed for mild pain. Active amLODIPine (NORVASC) 10 mg tablet Take by mouth 1 (one) time each day. Active clopidogreL (PLAVIX) 75 mg tablet Take 1 tablet (75 mg total) by mouth 1 (one) time each day. Active atorvastatin (LIPITOR) 80 mg tablet Take 1 tablet (80 mg total) by mouth at bedtime. Active nitroglycerin (NITROSTAT) 0.[address] 1 tablet (0.4 mg total) under the tongue every 5 (five) minutes if needed for chest pain. Active buPROPion SR (WELLBUTRIN SR) 150 mg 12 hr tablet Take by mouth 2 (two) times a day. Do not crush, chew, or split. Active aspirin 81 mg EC tabletIndication s:Chest pain, unspecified type Take 1 tablet (81 mg total) by mouth 1 (one) time each day. 30 each 11 04/08/2024 04/08/20 25 Active metoprolol tartrate (LOPRESSOR) 25 mg tabletIndication s:Coronary artery disease involving [place] coronary artery of [place] heart without angina pectoris Take 0.5 tablets (12.5 mg total) by mouth 2 (two) times a day. 45 tablet 3 06/19/2024 Active Active Problems Problem Noted Date Diagnosed Date Coronary artery disease invo lving [place] coronary artery of [place] heart without angina pectoris 04/08/2024 Assessment & Plan (04/08/2024 12:40 PM EST): Patient has a history of coronary disease status post previous angioplasty. He has had no further anginal symptoms. Remains on medical management for risk factor modification. Discussed with him the signs and symptoms of progressive disease to contact us if they should occur. Atherosclerotic peripheral vascular disease ([facility] /HCC V24) 04/08/2024 Assessment & Plan (04/08/2024 12:40 PM EST): Patient has extensive peripheral vascular disease including carotid artery disease abdominal aortic aneurysm status post EVAR left renal artery stenosis status post angioplasty and stenting. Patient's lipids of not been checked for a while has been given a lab slip to check his lipids otherwise risk factor modification has been in place. He is being monitored by vascular surgery for his peripheral vascular disease Hyperlipidemia 04/08/2024 Assessment & Plan (04/08/2024 12:40 PM EST): Patient has significant hyperlipidemia lipids not been checked in a while this may have been a lab slip Thoracic aortic aneurysm (CMS/HCC V24) Assessment & Plan (04/08/2024 12:40 PM EST): Patient is mild dilatation of the ascending aorta which we will following through ultrasound. Patient has abdominal aneurysm and has been treated in the past with EVAR The above note was prepared with the help of voice recognition software. Please excuse any grammatical or spelling errors that may have occurred Assessment & Plan (04/08/2024 12:40 PM EST): Patient is mild dilatation of the ascending aorta which we will following through ultrasound. Patient has abdominal aneurysm and has been treated in the past with EVAR Orders: Transthoracic echocardiogram (TTE) complete with PRN contrast, bubble, strain, and 3D order panel; Future Encounters Date Type Department Care Team Description 12/13/2024 Lab Requisition [facility] Lab [address] [place] [address] Radha Tyson MD Essential (primary) hypertension 12/07/2024 Lab Requisition [facility] Lab [address] [place] [address] Radha Tyson MD Essential (primary) hypertension 11/29/2024 Lab Requisition [facility] Lab [address] [place] [address] Radha Tyson MD Essential (primary) hypertension 11/22/2024 Lab Requisition [facility] Lab [address] [place] [address] Radha Tyson MD Essential (primary) hypertension 11/18/2024 Lab Requisition [facility] Lab [address] [place] [address] Radha Tyson MD Essential (primary) hypertension from Last 3 Months Surgical History Surgery Date Site/Laterality Comments COLONOSCOPY 06/23/19 PROCEDURE: HISTORICAL COLONOSCOPY ESOPHAGOGASTRODUODENOSCOPY 06/23/19 PROCEDURE: CT ESOPHAGOGASTRODUODENOSCOPY TRANSORAL DIAGNOSTIC; COMMENT: and biopsy TURP / TRANSURETHRAL INCISIO N / DRAINAGE PROSTATE PROCEDURE: HISTORICAL TURP; COMMENT: TURP - Transurethral resection of prostate Medical History Medical History Date Comments Bipolar disorder (CMS/HCC V2 4, CMS/HCC V28) DX:Bipolar disorder (HCC) BPH (benign prostatic hyperplasia) DX:BPH (benign prostatic hyperplasia) Degenerative joint disease (DJD) of hip DX:Degenerative joint disease (DJD) of hip Gastroesophageal reflux disease DX:Gastroesophageal reflux disease Hyperglycemia DX:Hyperglycemia Nondependent cannabis abuse in remission DX:Nondependent cannabis abuse in remission Peripheral vascular disease ([facility] V24) DX:Peripheral vascular disease (HCC) Pulmonary nodule DX:Pulmonary no dule Schizoaffective schizophreni a ([facility] V24, [facility] V28) DX:Schizoaffective schizophr enia (HCC) Stricture of artery ([facility] V24) DX:Stricture of artery (HCC) Tobacco use DX:Tobacco use Tubular adenoma of colon DX:Tubu lar adenoma of colon CKD (chronic kidney disease) , stage III (CMS/HCC V24, [facility] V28) DX:CKD (chronic kidney dise ase), stage III ([facility]) Degenerative joint disease (DJD) of hip DX:Degenerative joint disease (DJD) of hip Essential hypertension DX:Essent ial hypertension GERD (gastroesophageal reflux disease) DX:GERD (gastroesophageal reflux disease) Class 1 obesity DX:Class 1 obesi ty Family History Medical History Relation Name Comments Coronary artery disease Father Hyperlipidemia Father Hypertension Father Coronary artery disease Mother Hyperlipidemia Mother Hypertension Mother Other: heart disease Mother Relation Name Status Comments Father Mother Social History Tobacco Use Types Packs/Day Years Used Date Smoking Tobacco: Every Day Smokeless Tobacco: Never Alcohol Use Standard Drinks/Week Comments Not Currently 0 (1 standard drink = 0.6 oz pur e alcohol) Sex and Gender Information Value Date Recorded Sex Assigned at Not on file Legal Sex Male 4:32 PM EST Gender Identity Not on file Sexual Orientation Not on file Obstetrics History Last Filed Vital Signs Vital Sign Reading Time Taken Comments Blood Pressure 136/72 04/08/2024 10:20 AM EST Pulse 47 04/08/2024 9:39 AM EST Temperature - - Respiratory Rate - - Oxygen Saturation 99% 04/08/2024 9:39 AM EST Inhaled Oxygen Concentration - - Weight 92.1 kg (203 lb) 04/08/2024 9:39 AM EST Height 182.9 cm (6') 04/08/2024 9:39 AM EST Body Mass Index 27.53 04/08/2024 9:39 AM EST Plan of Treatment Health Maintenance Due Date Last Done Comments Hepatitis A Vaccines (1 of 2 - Risk 2-dose series) 07/02/1975 Zoster Vaccines (1 of 2) 07/02/1975 RSV Immunization Adult Patients (1 - Risk 60-74 years 1-dose series) 2016 Cholesterol Screening (Lipid Panel) 04/02/2022 Colorectal Cancer Screening: Colonoscopy 04/02/2022 Falls Risk Assessment 04/02/2022 Hepatitis C Screening 04/02/2022 Medicare Annual Wellness Visit 04/02/2022 Social Influencers of Health Screening 04/02/2022 COVID-19 Vaccine ( season) 2023 02/17/2021, 07/09/2020, 06/18/2020 Depression Screening 04/24/2024 Influenza Vaccine (#1) 2024 , 03/30/2023, 01/28/2023, Additional history exists Hypertension/CHF/CAD Annual BMP Blood Test 12/16/2025 12/16/2024, 12/09/2024, 12/02/2024, Additional history exists DTaP,Tdap,and Td Vaccines (2 - Td or Tdap) 08/03/2027 08/02/2017 Pneumococcal Vaccine: 50+ Years Completed 12/20/2021, 05/03/2017, 12/17/2012 HIB Vaccines Aged Out No longer eligi ble based on patient's age to complete this topic HPV Vaccines Aged Out No longer eligi ble based on patient's age to complete this topic Hepatitis B Vaccines Aged Out No long er eligible based on patient's age to complete this topic IPV Vaccines Aged Out No longer eligi ble based on patient's age to complete this topic MMR Vaccines Aged Out No longer eligi ble based on patient's age to complete this topic Meningococcal ACWY Vaccine Aged Out N o longer eligible based on patient's age to complete this topic Meningococcal B Vaccine Aged Out No l onger eligible based on patient's age to complete this topic RSV Immunization Patients Under 20 months Aged Out No longer eligible based on patient's age to complete this topic Varicella Vaccines Aged Out No longer eligible based on patient's age to complete this topic Procedures Procedure Name Priority Date/Time Associated Diagnosis Comments BASIC METABOLIC PANEL Routine 12/16/2024 5:54 AM EDT Essential (primary) hypertension COMPLETE BLOOD COUNT Routine 12/16/2024 5:54 AM EDT Essential (primary) hypertension BASIC METABOLIC PANEL Routine 12/09/2024 5:52 AM EDT Essential (primary) hypertension COMPLETE BLOOD COUNT Routine 12/09/2024 5:52 AM EDT Essential (primary) hypertension BASIC METABOLIC PANEL Routine 12/02/2024 6:09 AM EDT Essential (primary) hypertension COMPLETE BLOOD COUNT Routine 12/02/2024 6:09 AM EDT Essential (primary) hypertension BASIC METABOLIC PANEL Routine 11/25/2024 6:50 AM EDT Essential (primary) hypertension COMPLETE BLOOD COUNT Routine 11/25/2024 6:50 AM EDT Essential (primary) hypertension BASIC METABOLIC PANEL Routine 11/18/2024 5:54 AM EDT Essential (primary) hypertension COMPLETE BLOOD COUNT Routine 11/18/2024 5:54 AM EDT Essential (primary) hypertension from Last 3 Months Results * (ABNORMAL) Complete blood count (12/16/2024 5:54 AM EDT) Only the most recent of5 resultswithin the time period is included. [facility] WBC 9.3 4.8 - 10.8 K/mcL LAB HEMETOLOGY METHOD 12/16/2024 8:51 AM [facility] LAB RBC 4.50 4.50 - 5.50 M/mcL LAB HEMETOLOGY METHOD 12/16/2024 8:51 AM [facility] Hemoglobin 12.7(L) 13.5 - 17.5 g/dL LAB HEMETOLOGY METHOD 12/16/2024 8:51 AM [facility] LAB Hematocrit 40.2(L) 42.0 - 54.0 % LAB HEMETOLOGY METHOD 12/16/2024 8:51 AM [facility] LAB MCV 90.3 79.0 - 98.0 FL LAB HEMETOLOGY METHOD 12/16/2024 8:51 AM EDT [facility] LAB MCH 28.5 27.0 - 32.0 pcg LAB HEMETOLOGY METHOD 12/16/2024 8:51 AM EDT [facility] LAB MCHC 31.6(L) 32.0 - 37.0 g/dL LAB HEMETOLOGY METHOD 12/16/2024 8:51 AM EDT [facility] LAB RDW 14.6 11.0 - 15.0 % LAB HEMETOLOGY METHOD 12/16/2024 8:51 AM EDT [facility] LAB Platelets 229 130 - 400 K/mcL LAB HEMETOLOGY METHOD 12/16/2024 8:51 AM EDT [facility] LAB MPV 11.4(H) 7.0 - 11.0 FL LAB HEMETOLOGY METHOD 12/16/2024 8:51 AM EDT [facility] NRBC 0.0 <1.0 % LAB HEMETOLOGY METHOD 12/16/2024 8:51 AM EDT [facility] LAB NRBC Absolute 0.00 <0.10 K/mcL LAB HEMETOLOGY METHOD [facility] Blood Venous blood specimen / Unknown Venipuncture / Unknown 12/16/2024 5:54 AM EDT 12/16/2024 8:28 AM EDT us Radha Tyson MD LAB BLOOD ORDERABLES Fin al Result [facility] LAB [address] [place] [address], * (ABNORMAL) Basic metabolic panel (12/16/2024 5:54 AM EDT) Only the most recent of5 resultswithin the time period is included. [facility] Sodium 141 133 - 145 mmol/L LAB CHEMISTRY METHOD 12/16/2024 9:17 AM [facility] LAB Potassium 4.1 3.5 - 5.5 mmol/L LAB CHEMISTRY METHOD 12/16/2024 9:17 AM [facility] LAB Chloride 107 96 - 110 mmol/L LAB CHEMISTRY METHOD 12/16/2024 9:17 AM [facility] CO2 28 21 - 32 mmol/L LAB CHEMISTRY METHOD 12/16/2024 9:17 AM [facility] LAB Anion Gap 6 3 - 11 LAB CHEMISTRY METHOD 12/16/2024 9:17 AM [facility] LAB Glucose 89 70 - 100 mg/dL LAB CHEMISTRY METHOD 12/16/2024 9:17 AM [facility] BUN 25 5 - 25 mg/dL LAB CHEMISTRY METHOD 12/16/2024 9:17 AM [facility] LAB Creatinine 2.40(H) 0.70 - 1.30 mg/dL LAB CHEMISTRY METHOD 12/16/2024 9:17 AM [facility] LAB eGFR 29(L) >=60 mL/min/1. 73m2 LAB CHEMISTRY METHOD 12/16/2024 9:17 AM [facility] LAB Comment:Calculation based on the Chronic Kidney Disease Epidemiology Collaboration (CKD-EPI) equation refit without adjustment for race. BUN/Creatinine Ratio 10.4 LAB CHEMISTRY METHOD 12/16/2024 9:17 AM [facility] LAB Calcium 8.8 8.5 - 10.5 mg/dL LAB CHEMISTRY METHOD 12/16/2024 9:17 AM [facility] LAB Blood Venous blood specimen / Unknown Venipuncture / Unknown 12/16/2024 5:54 AM EDT 12/16/2024 8:28 AM EDT us Radha Tyson MD LAB BLOOD ORDERABLES Fin al Result [facility] LAB [address] [place] [address], [place] [phone] from Last 3 Months Insurance [facility] MEDICARE Member Subscriber Plan / Payer (Ef fective 2023-Present) Name:EDWARD NAGY Relation to Subscriber:Self Name:Edward Nagy Payer ID:[id number] Group ID:[id number] Type:Not on file Address: [place] [address] [address] [address] Care Teams Solutions Manager Relationship Specialty Start Date End Date Balaji Mayo MD [facility] [address] [place] [address] PCP - General Internal Medicine 06/04/20
--- OUTSIDE RECORDS SUMMARY | 2024-12-22 17:02 | XMS_ITS | Encounter Summary ---
Author Organization [facility] Address [address] [place] [address] Care Team Providers Care Sandwich Hand Name Role Phone Balaji Mayo MD Primary Care Provider [phone]- [phone] Encounter Details Date Type Department Care Team (Late st Contact Info) Description 11/22/2024 Lab Requisition [facility] - Main Lab [address] [facility] [place] [address] Radha Tyson MD [address] [address] Essential (primary) hypertension Social History Tobacco Use [...] Associated Diagnosis Comments COMPLETE BLOOD COUNT Routine 11/25/2024 6:50 AM EDT Essential (primary) hypertension BASIC METABOLIC PANEL Routine 11/25/2024 6:50 AM EDT Essential (primary) hypertension documented in this encounter Results * (ABNORMAL) Basic metabolic panel (11/25/2024 6:50 AM EDT) Sodium 140 133 - 145 mmol/L LAB CHEMISTRY METHOD 11/25/2024 11:45 AM [facility] LAB Potassium 4.1 3.5 - 5.5 mmol/L LAB CHEMISTRY METHOD 11/25/2024 11:45 AM [facility] LAB Chloride 106 96 - 110 mmol/L LAB CHEMISTRY METHOD 11/25/2024 11:45 AM [facility] CO2 26 21 - 32 mmol/L LAB CHEMISTRY METHOD 11/25/2024 11:45 AM [facility] LAB Anion Gap 8 3 - 11 LAB CHEMISTRY METHOD 11/25/2024 11:45 AM [facility] LAB Glucose 73 70 - 100 mg/dL LAB CHEMISTRY METHOD 11/25/2024 11:45 AM [facility] BUN 29(H) 5 - 25 mg/dL LAB CHEMISTRY METHOD 11/25/2024 11:45 AM [facility] LAB Creatinine 2.50(H) 0.70 - 1.30 mg/dL LAB CHEMISTRY METHOD 11/25/2024 11:45 AM [facility] LAB eGFR 27(L) >=60 mL/min/1. 73m2 LAB CHEMISTRY METHOD 11/25/2024 11:45 AM [facility] LAB Comment:Calculation based on the Chronic Kidney Disease Epidemiology Collaboration (CKD-EPI) equation refit without adjustment for race. BUN/Creatinine Ratio 11.6 LAB CHEMISTRY METHOD 11/25/2024 11:45 AM [facility] Calcium 9.0 8.5 - 10.5 mg/dL LAB CHEMISTRY METHOD 11/25/2024 11:45 AM [facility] LAB Blood Venous blood specimen / Unknown Venipuncture / Unknown 11/25/2024 6:50 AM EDT 11/25/2024 10:44 AM EDT us Radha Tyson MD LAB BLOOD ORDERABLES Fin al Result [facility] LAB [address] [place] [address], * (ABNORMAL) Complete blood count (11/25/2024 6:50 AM EDT) [facility] Signature WBC 9.8 4.8 - 10.8 K/mcL LAB HEMETOLOGY METHOD 11/25/2024 11:16 AM EDT [facility] RBC 4.30(L) 4.50 - 5.50 M/mcL LAB HEMETOLOGY METHOD 11/25/2024 11:16 AM EDT [facility] Hemoglobin 12.3(L) 13.5 - 17.5 g/dL LAB HEMETOLOGY METHOD 11/25/2024 11:16 AM EDT [facility] Hematocrit 39.3(L) 42.0 - 54.0 % LAB HEMETOLOGY METHOD 11/25/2024 11:16 AM EDT [facility] MCV 90.8 79.0 - 98.0 FL LAB HEMETOLOGY METHOD 11/25/2024 11:16 AM EDT [facility] MCH 28.4 27.0 - 32.0 pcg LAB HEMETOLOGY METHOD 11/25/2024 11:16 AM EDT [facility] MCHC 31.3(L) 32.0 - 37.0 g/dL LAB HEMETOLOGY METHOD 11/25/2024 11:16 AM EDT [facility] RDW 14.3 11.0 - 15.0 % LAB HEMETOLOGY METHOD 11/25/2024 11:16 AM EDT [facility] Platelets 272 130 - 400 K/mcL LAB HEMETOLOGY METHOD 11/25/2024 11:16 AM EDT [facility] MPV 11.6(H) 7.0 - 11.0 FL LAB HEMETOLOGY METHOD 11/25/2024 11:16 AM EDT [facility] NRBC 0.0 <1.0 % LAB HEMETOLOGY METHOD 11/25/2024 11:16 AM EDT [facility] NRBC Absolute 0.00 <0.10 K/mcL LAB HEMETOLOGY METHOD 11/25/2024 11:16 AM EDT [facility] Blood Venous blood specimen / Unknown Venipuncture / Unknown 11/25/2024 6:50 AM EDT 11/25/2024 10:43 AM EDT us Radha Tyson MD LAB BLOOD ORDERABLES Fin al Result [facility] [address] [place] [address], documented in this encounter Visit Diagnoses Diagnosis Essential (primary) hypertension Unspecified essential hypertension documented in this encounter Care Teams Sandwich Hand Relationship Specialty Start Date End Date Balaji Mayo MD [facility] [address] [place] [address] PCP - General Internal Medicine 06/04/20 documented as of this encounter
--- OUTSIDE RECORDS SUMMARY | 2024-12-22 17:02 | XMS_ITS ---
Author Organization [facility] Care Team Providers Care Surgeon Chief Name Role Phone Susanne Lindo Unavailable Unavailable Radha Tyson Unavailable Unavailable Yaneth Silva Unavailable Unavailable Diamond Ortiz Unavailable Unavailable Allergies and adverse reactions Code CodeSystem Substance Reaction Severity StartDate Concern Status Nuts Unknown 12/07/2020 active 7407 RXNORM Nicotine Unknown 12/07/2020 active 5553 RXNORM hydrOXYzine Unknown 12/07/2020 active Clozaril Unknown 12/07/2020 active Claritin Unknown 12/07/2020 active Benadryl Unknown 12/07/2020 active Abilify Unknown 12/07/2020 active Care Team Name Role Address Phone Organization Maryuri Tyson PCP [address] [address], [facility] (Office): : [facility] 12/07/2020 - 12/16/2020 [place], [address], [facility] (Office): : [facility] 12/07/2020 - 12/16/2020 Yaneth Silva [address] [place] [address], [address], [facility] (Office): : [phone] [facility] 12/07/2020 - 12/16/2020 Diamond Ortiz [address] [place] [address] [place], [address], [place] (Office): : [facility] 12/07/2020 - 12/16/2020 Goals Section Goals Description Status Target Date I will work with the IDT to ensure a safe discha rge. Active 03/07/2021 My MOLST will be respected. Active 02/22 My PASRR matches my SNF plac ement and staff will assist me accordingly. Active 03/07/2021 Edward will have improved m ood state no s/sx of depression, anxiety or sadness through the review date. Active 03/07/2021 Will have intake >75% of margie ls W ill have stable weights W ill tolerate a therapeutic diet S kin intact W ill have no s/sx of dehydration Active 03/07/2021 Mental Status Section Date Assessment Total Score Description 12/16/2020 CAM 0 No delirium ind icated 12/13/2020 BIMS 15 cognitively int act CAM 0 No delirium ind icated PHQ-9 00 Problems Problem # Description Date of onset Resolved Date Code CodeSystem Concern Status 1 ATHEROSCLEROTIC HEART DISEASE OF [place] CORONARY ARTERY WITHOUT ANGINA PECTORIS 12/08/[address] active 2 BIPOLAR DISORDER, UNSPECIFIED 12/08/[address] active 3 CEREBRAL INFARCTION, UNSPECIFIED 12/08/[address] active 4 ESSENTIAL (PRIMARY) HYPERTENSION 12/08/[address] active 5 HYPERLIPIDEMIA, UNSPECIFIED 12/08/[address] active 6 MUSCLE WEAKNESS (GENERALIZED) 12/08/[address] active 7 OTHER ABNORMALITIES OF GAIT AND MOBILITY 12/08/[address] active 8 PAIN IN LEFT KNEE 12/08/[address] active 9 PERIPHERAL VASCULAR DISEASE, UNSPECIFIED 12/08/[address] active 10 SCHIZOAFFECTIVE DISORDER, UNSPECIFIED 12/08/[address] active 11 UNSPECIFIED FALL, INITIAL ENCOUNTER 12/08/[address] active 12 UNSPECIFIED INJURY OF UNSPECIFIED LOWER LEG, SEQUELA 12/08/[address] active 13 UNSTEADINESS ON FEET 12/08/[address] active Reason for Referral No Reasons for Referral Entered Social History Social History Observation Description Start Date End Date Code Code System Current Smoking Status Tobacco smoking consumption unknown 798661718 SNOMED CT Sex Assigned At Male 1955 27505-3 [facility] Gender Identity Vital Signs Code Code System Vitals Name Values and Units Timing Information 9279-1 [facility] Respiratory Rate Value=16.0 Units=/m in 12/16/2020 8462-4 [facility] Blood Pressure-Diastolic Value=78 Un its=mmHg 12/16/2020 8480-6 [facility] Blood Pressure-Systolic Nojes=173 Un its=mmHg 12/16/2020 8310-5 [facility] Body Temperature Value=98.0 Units= F 12/16/2020 8867-4 [facility] Heart rate Value=77.0 Units=/min 49983-0 [facility] O2 % BldC Oximetry Value=99.0 Units= % 12/16/2020 69708-0 [facility] Pain Level Value=3.0 12/16/2020 35935-9 [facility] Weight Odjwe=580.0 Units=Lbs
--- OUTSIDE RECORDS SUMMARY | 2024-12-22 17:02 | XMS_ITS | Encounter Summary ---
Author Organization [facility], Address [address] [place] [address] Phone Care Team Providers Care Ad Operations Associate Name Role Phone Balaji Mayo MD Primary Care Provider [phone]- [phone] Encounter Details Date Type Department Care Team (Late st Contact Info) Description 07/29/2024 Documentation Only [facility], [address] [place] [address] [place] [address] [place] [address] Social History Tobacco Use Types Packs/Day Years [...] on filedocumented in this encounter Care Teams Ad Operations Associate Relationship Specialty Start Date End Date Balaji Mayo MD [address] [place] [phone] PCP - General Family Medicine 06/06/22 documented as of this encounter
--- OUTSIDE RECORDS SUMMARY | 2024-12-22 17:02 | XMS_ITS | Encounter Summary ---
Author Organization [facility], Address [address] [place] [address] Phone Care Team Providers Care Grooming Salon Manager Name Role Phone Balaji Mayo MD Primary Care Provider [phone]- [phone] Encounter Details Date Type Department Care Team (Late st Contact Info) Description 07/29/2024 Documentation Only [facility], [address] [place] [address] [place] [address] [place] [address] Social History Tobacco Use Types [...] on filedocumented in this encounter Care Teams Grooming Salon Manager Relationship Specialty Start Date End Date Balaji Mayo MD [address] [place] [phone] PCP - General Family Medicine 06/06/22 documented as of this encounter
--- OUTSIDE RECORDS SUMMARY | 2024-12-22 17:02 | XMS_ITS | Encounter Summary ---
Author Organization [facility] Address [address] [place] [address] Phone Care Team Providers Care Engine Assembler Name Role Phone Balaji Mayo MD Primary Care Provider + Balaji Mayo MD Unavailable [phone] Encounter Details Date Type Department Care Team (Late st Contact Info) Description 11/28/2023 Procedure Pass [facility], Ct Scan - [facility] [address] [place] [address] Social History Tobacco Use Types Packs/Day Years [...] 11:41 PM EDT Eveline Toro RN * [place] Suicide Severity Rating Scale (Screener/Recent Self-Report) Question Answer Date of Assessment Author 1. Wish to be (Past 1 Month) No 024 11:41 PM PHILIPT Eveline Aguiar RN 2. Non-Specific Active Suici kedar Thoughts (Past 1 Month) No 11/28/2023 11:41 PM EDT Tony Aguiar RN 6. Suicidal Behavior (Lifetime) No 4 1:24 AM EDT Rayne Hernandez RN documented as of this encounter Plan of Treatment Not on file documented as of this encounter Visit Diagnoses Not on filedocumented in this encounter Care Teams Engine Assembler Relationship Specialty Start Date End Date Balaji Mayo MD [address] [place] [address] PCP - General Family Medicine 10/23/23 Balaji Mayo MD [address] [place] [address] Family Medicine 10/23/23 documented as of this encounter Additional Source Comments The information contained in this document represents components of the legal health record. It is not the complete legal health record.[facility]
--- OUTSIDE RECORDS SUMMARY | 2024-12-22 17:02 | XMS_ITS | Encounter Summary ---
Author Organization [facility] Address [address] [place] [address] Care Team Providers Care Mohel Name Role Phone Balaji Mayo MD Primary Care Provider [phone]- [phone] Encounter Details Date Type Department Care Team (Late st Contact Info) Description 12/13/2024 Lab Requisition [facility] - Main Lab [address] Pending Sale [place] [facility] [place] [address] Radha Tyson MD [address] [address] Essential (primary) hypertension Social History Tobacco Use [...] Associated Diagnosis Comments COMPLETE BLOOD COUNT Routine 12/16/2024 5:54 AM EDT Essential (primary) hypertension BASIC METABOLIC PANEL Routine 12/16/2024 5:54 AM EDT Essential (primary) hypertension documented in this encounter Results * (ABNORMAL) Basic metabolic panel (12/16/2024 5:54 AM EDT) Sodium 141 133 - 145 mmol/L LAB CHEMISTRY METHOD 12/16/2024 9:17 AM [facility] Potassium 4.1 3.5 - 5.5 mmol/L LAB CHEMISTRY METHOD 12/16/2024 9:17 AM [facility] Chloride 107 96 - 110 mmol/L LAB CHEMISTRY METHOD 12/16/2024 9:17 AM [facility] CO2 28 21 - 32 mmol/L LAB CHEMISTRY METHOD 12/16/2024 9:17 AM [facility] Anion Gap 6 3 - 11 LAB CHEMISTRY METHOD 12/16/2024 9:17 AM [facility] Glucose 89 70 - 100 mg/dL LAB CHEMISTRY METHOD 12/16/2024 9:17 AM [facility] BUN 25 5 - 25 mg/dL LAB CHEMISTRY METHOD 12/16/2024 9:17 AM [facility] Creatinine 2.40(H) 0.70 - 1.30 mg/dL LAB CHEMISTRY METHOD 12/16/2024 9:17 AM [facility] eGFR 29(L) >=60 mL/min/1. 73m2 LAB CHEMISTRY METHOD 12/16/2024 9:17 AM [facility] Comment:Calculation based on the Chronic Kidney Disease Epidemiology Collaboration (CKD-EPI) equation refit without adjustment for race. BUN/Creatinine Ratio 10.4 LAB CHEMISTRY METHOD 12/16/2024 9:17 AM [facility] Calcium 8.8 8.5 - 10.5 mg/dL LAB CHEMISTRY METHOD 12/16/2024 9:17 AM [facility] Blood Venous blood specimen / Unknown Venipuncture / Unknown 12/16/2024 5:54 AM EDT 12/16/2024 8:28 AM EDT us Radha Tyson MD LAB BLOOD ORDERABLES Fin al Result [facility] [address] [place] [address], * (ABNORMAL) Complete blood count (12/16/2024 5:54 AM EDT) [facility] Signature WBC 9.3 4.8 - 10.8 K/mcL LAB HEMETOLOGY METHOD 12/16/2024 8:51 AM EDT [facility] RBC 4.50 4.50 - 5.50 M/mcL LAB HEMETOLOGY METHOD 12/16/2024 8:51 AM EDT [facility] Hemoglobin 12.7(L) 13.5 - 17.5 g/dL LAB HEMETOLOGY METHOD 12/16/2024 8:51 AM EDT [facility] Hematocrit 40.2(L) 42.0 - 54.0 % LAB HEMETOLOGY METHOD 12/16/2024 8:51 AM EDT [facility] MCV 90.3 79.0 - 98.0 FL LAB HEMETOLOGY METHOD 12/16/2024 8:51 AM EDT [facility] MCH 28.5 27.0 - 32.0 pcg LAB HEMETOLOGY METHOD 12/16/2024 8[facility] MCHC 31.6(L) 32.0 - 37.0 g/dL LAB HEMETOLOGY METHOD 12/16/2024 8:51 AM EDT [facility] RDW 14.6 11.0 - 15.0 % LAB HEMETOLOGY METHOD 12/16/2024 8:51 AM EDT [facility] Platelets 229 130 - 400 K/mcL LAB HEMETOLOGY METHOD 12/16/2024 8:51 AM EDT [facility] MPV 11.4(H) 7.0 - 11.0 FL LAB HEMETOLOGY METHOD 12/16/2024 8:51 AM EDT [facility] NRBC 0.0 <1.0 % LAB HEMETOLOGY METHOD 12/16/2024 8:51 AM EDT [facility] NRBC Absolute 0.00 <0.10 K/mcL LAB HEMETOLOGY METHOD 12/16/2024 8:51 AM EDT [facility] Blood Venous blood specimen / Unknown Venipuncture / Unknown 12/16/2024 5:54 AM EDT 12/16/2024 8:28 AM EDT us Radha Tyson MD LAB BLOOD ORDERABLES Fin al Result [facility] [address] [place] [address], documented in this encounter Visit Diagnoses Diagnosis Essential (primary) hypertension Unspecified essential hypertension documented in this encounter Care Teams Mohel Relationship Specialty Start Date End Date Balaji Mayo MD [facility] Lorelei Orantes Ruben [address] [place] [phone] PCP - General Internal Medicine 06/04/20 documented as of this encounter
--- OUTSIDE RECORDS SUMMARY | 2024-12-22 17:02 | XMS_ITS ---
Author Organization [facility] Care Team Providers Care Tower Hoist Operator Name Role Phone Emily Kumar Unavailable Unavailable Jonel Monet Unavailable Unavailable Gee Palmer Unavailable Unavailable Miguel A Edwards Unavailable Unavailable Jennifer Alonso Unavailable Unavailable Lacey Chavez Unavailable Unavailable Leilani Treadwell Unavailable Unavailable Nichole Oakes Unavailable Unava ilable Milly Patricio Unavailable Unavailable Elysia Heath Unavailable Unavailable Allergies and adverse reactions Code CodeSystem Substance Reaction Severity StartDate Concern Status vistaril Unknown 09/10/2021 active Peanut Unknown 09/10/2021 active Nuts Unknown 09/10/2021 active nicotine patch Unknown 09/10/2021 active Clozaril Unknown 09/10/2021 active Claritin Unknown 09/10/2021 active Benadryl Unknown 09/10/2021 active Abilify Unknown 09/10/2021 active Care Team Name Role Address Phone Organization Dates Miguel A Edwards [address], [place], [address], [place] (Office): : [facility] 02/01/2023 - 02/17/2023 Emily Kumar [address] [place] [address], [address], [place] (Office): [facility] 02/01/2023 - 02/17/2023 Jonel Monet [address] [place] [address], [address], [place] (Office): [facility] 02/01/2023 - 02/17/2023 Gee Palmer [address] [place] [address], [address], [place] (Office): [facility] 02/01/2023 - 02/17/2023 Jennifer Alonso [address] [place] [address], [address], [place] (Office): : [facility] 02/01/2023 - 02/17/2023 Lacey Morisnikita [address], [address], [place]Office): : [facility] 02/01/2023 - 02/17/2023 Leilani Treadwell [address] [place] [address], [address], [place]Office): : [facility] 02/01/2023 - 02/17/2023 Nichole Oakes [address] [place], [address], [place] (Office): [facility] 02/01/2023 - 02/17/2023 Milly Patricio [address] [facility] [address], [place], [address], [place] (Office): : [facility] 02/01/2023 - 02/17/2023 Elysia Heath [address] [place] [address], [address], [place] (Office): [facility] 02/01/2023 - 02/17/2023 Immunizations Immunization Status Vaccine Details Vaccine Code CodeSystem Date Notes Influenza new Influenza, split virus, trivalent, injectable, contains preservative 141 CVX created date: 02/01/2023 consent date: 02/01/2023 Pneumococcal Polysaccharide Vaccine (PPSV23) completed pneumococcal polysaccharide vaccine, 23 valent 33 CVX created date: 02/02/2023 administer ed date: 05/03/2017 Verified in [facility] Pneumococcal Polysaccharide Vaccine (PPSV23) completed pneumococcal polysaccharide vaccine, 23 valent 33 CVX created date: 02/02/2023 administer ed date: 12/17/2012 Verified in [facility] SARS-COV-2 (COVID-19) completed SARS-COV-2 (COVID-19) vaccine, mRNA, spike protein, LNP, preservative free, 30 mcg/0.3mL dose Mfg: [employer] Step 2 of Multi-step with next step required 208 CVX created date: 09/10/2021 administer ed date: 07/09/2020 SARS-COV-2 (COVID-19) completed SARS-COV-2 (COVID-19) vaccine, mRNA, spike protein, LNP, preservative free, 30 mcg/0.3mL dose Mfg: [employer] Step 1 of Multi-step with next step required 208 CVX created date: 09/10/2021 administer ed date: 06/18/2020 Prevnar 20 Pneumococcal conjugate (PCV20) new Pneumococcal conjugate vaccine 20-valent (PCV20), polysaccharide [id number] conjugate, adjuvant, preservative free 216 CVX created date: 02/01/2023 consent date: 02/01/2023 SARS-COV-2 (COVID-19 BOOSTER) completed SARS-COV-2 (COVID-19) vaccine, mRNA, spike protein, LNP, preservative free, 30 mcg/0.3mL dose Mfg: [employer] 208 CVX created date: 09/10/2021 administer ed date: 02/17/2021 RSV, bivalent, protein subunit RSVpreF, diluent rec new Respiratory syncytial virus (RSV), vaccine, bivalent, protein subunit RSV prefusion F, diluent reconstituted, 0.5 mL, preservative free 305 CVX created date: 02/01/2023 consent date: 02/01/2023 Mental Status Section Date Assessment Total Score Description 02/17/2023 BIMS 09 moderate cognit jaclyn impairment CAM 0 No delirium ind icated PHQ-9 07 mild depression 02/07/2023 BIMS 11 moderate cognit jaclyn impairment CAM 0 No delirium ind icated PHQ-9 06 mild depression Problems Problem # Description Date of onset Resolved Date Code CodeSystem Concern Status 1 ABDOMINAL AORTIC ANEURYSM, WITHOUT RUPTURE, UNSPECIFIED [address] active 2 ATHEROSCLEROTIC HEART DISEASE OF [place] CORONARY ARTERY WITHOUT ANGINA PECTORIS [address] active 3 BENIGN PROSTATIC HYPERPLASIA WITHOUT LOWER URINARY TRACT SYMPTOMS 170775377 SNOMED CT active 4 CHRONIC KIDNEY DISEASE, STAGE 3 [address]NSPECIFIED [address] active 5 ENCOUNTER FOR SURGICAL AFTERCARE FOLLOWING SURGERY ON THE CIRCULATORY SYSTEM [address] active 6 ESSENTIAL (PRIMARY) HYPERTENSION [address] active 7 HYPERLIPIDEMIA, UNSPECIFIED [address] active 8 NON-ST ELEVATION (NSTEMI) MYOCARDIAL INFARCTION [address] active 9 [address]OPNEA [address] active 10 OSTEOARTHRITIS OF HIP, UNSPECIFIED [address] active 11 PERIPHERAL VASCULAR DISEASE, UNSPECIFIED [address] active 12 SCHIZOAFFECTIVE DISORDER, BIPOLAR TYPE [address] active 13 ABDOMINAL AORTIC ANEURYSM, WITHOUT RUPTURE 02/01/[address] completed 14 ACUTE BRONCHITIS DUE TO OTHER SPECIFIED ORGANISMS 02/01/[address] completed 15 BENIGN PROSTATIC HYPERPLASIA WITHOUT LOWER URINARY TRACT SYMPTOMS 02/01/[address] completed 16 BILATERAL PRIMARY OSTEOARTHRITIS OF HIP 02/01/[address] completed 17 BIPOLAR DISORDER, UNSPECIFIED 02/01/[address] completed 18 CEREBRAL INFARCTION DUE TO THROMBOSIS OF UNSPECIFIED CEREBRAL ARTERY 02/01/[address] completed 19 CHRONIC KIDNEY DISEASE, STAGE 3 UNSPECIFIED 02/01/[address] completed 20 CONGENITAL DISLOCATION OF HIP, BILATERAL 02/01/[address] completed 21 ESSENTIAL (PRIMARY) HYPERTENSION 02/01/[address] completed 22 HYPERLIPIDEMIA, UNSPECIFIED 02/01/[address] completed 23 INFLUENZA DUE TO OTHER IDENTIFIED INFLUENZA VIRUS WITH OTHER RESPIRATORY MANIFESTATIONS 02/01/[address] completed 24 ORTHOSTATIC HYPOTENSION 02/01/[address] completed 25 PAIN IN RIGHT KNEE 02/01/[address] completed 26 PERIPHERAL VASCULAR DISEASE, UNSPECIFIED 02/01/[address] completed 27 SCHIZOPHRENIA, UNSPECIFIED 02/01/[address] completed Reason for Referral No Reasons for Referral Entered Social History Social History Observation Description Start Date End Date Code Code System Current Smoking Status Tobacco smoking consumption unknown 451639078 SNOMED CT Sex Assigned At Male 1955 [address]-5 [facility] Gender Identity Vital Signs Code Code System Vitals Name Values and Units Timing Information 14479-7 [facility] Pain Level Value=0.0 02/17/2023 9279-1 [facility] Respiratory Rate Value=16.0 Units=/m in 02/15/2023 8462-4 [facility] Blood Pressure-Diastolic Value=80 Un its=mmHg 02/15/2023 8480-6 [facility] Blood Pressure-Systolic Tzgxg=464 Un its=mmHg 02/15/2023 8310-5 [facility] Body Temperature Value=97.8 Units= F 02/15/2023 8867-4 [facility] Heart rate Value=80.0 Units=/min 42439-6 [facility] O2 % BldC Oximetry Value=96.0 Units= % 02/15/2023 08190-6 [facility] Weight Orkfy=123.0 Units=Lbs 8302-2 [facility] Height Value=72.0 Units=Inches 02/01/2023
--- OUTSIDE RECORDS SUMMARY | 2024-12-22 17:02 | XMS_ITS | Encounter Summary ---
Author Organization [facility], Address [address] [place] [address] Phone Care Team Providers Care Revolving Field Assembler Name Role Phone Balaji Mayo MD Primary Care Provider +1- [phone] Encounter Details Date Type Department Care Team (Late st Contact Info) Description 10/03/2023 Documentation Only [facility], [address] [place] [address] Uzma Romero [address] [place] [address] Social History Tobacco Use Types [...] on filedocumented in this encounter Care Teams Revolving Field Assembler Relationship Specialty Start Date End Date Balaji Mayo MD [address] [place] [phone] PCP - General Family Medicine 06/06/22 documented as of this encounter
--- OUTSIDE RECORDS SUMMARY | 2024-12-22 17:02 | XMS_ITS | Encounter Summary ---
Author Organization [facility], Address [address] [place] [address] Phone Care Team Providers Care Public Affairs Officer Name Role Phone Balaji Mayo MD Primary Care Provider +1- [phone] Encounter Details Date Type Department Care Team (Late st Contact Info) Description 07/29/2024 Documentation Only [facility], [address] [place] [address] [facility] [place] [address] [place] [address] Social History Tobacco Use Types [...] on filedocumented in this encounter Care Teams Public Affairs Officer Relationship Specialty Start Date End Date Balaji Mayo MD [address] [place] [phone] PCP - General Family Medicine 06/06/22 documented as of this encounter
--- OUTSIDE RECORDS SUMMARY | 2024-12-22 17:02 | XMS_ITS | Encounter Summary ---
Author Organization [facility], Address [address] [place] [address] Phone Care Team Providers Care Split Leather Department Supervisor Name Role Phone Balaji Mayo MD Primary Care Provider +1- [phone] Encounter Details Date Type Department Care Team (Late st Contact Info) Description 07/25/2023 Documentation Only [facility], [address] [place] [address] Uzma Romero [address] [place] [address] Social History Tobacco Use Types [...] on filedocumented in this encounter Care Teams Split Leather Department Supervisor Relationship Specialty Start Date End Date Balaji Mayo MD [address] [place] [phone] PCP - General Family Medicine 06/06/22 documented as of this encounter
--- OUTSIDE RECORDS SUMMARY | 2024-12-22 17:02 | XMS_ITS | Encounter Summary ---
Author Organization [facility], Address [address] [place] [address] Phone Care Team Providers Care Outer Diameter Grinder Tool Name Role Phone Balaji Mayo MD Primary Care Provider +1- [phone] Encounter Details Date Type Department Care Team (Late st Contact Info) Description 07/29/2024 Documentation Only [facility], [address] [place] [address] [place] [address] [place] [address] Social History Tobacco Use Types [...] on filedocumented in this encounter Care Teams Outer Diameter Grinder Tool Relationship Specialty Start Date End Date Balaji Mayo MD [address] [place] [phone] PCP - General Family Medicine 06/06/22 documented as of this encounter
--- OUTSIDE RECORDS SUMMARY | 2024-12-22 17:02 | XMS_ITS | Encounter Summary ---
Author Organization [facility], Address [address] [place] [address] Phone Care Team Providers Care Cobol Application Developer Name Role Phone Balaji Mayo MD Primary Care Provider +1- [phone] Encounter Details Date Type Department Care Team (Late st Contact Info) Description 07/29/2024 Documentation Only [facility], [address] [place] [address] [place] [address] [place] [address] Social History Tobacco Use Types [...] on filedocumented in this encounter Care Teams Cobol Application Developer Relationship Specialty Start Date End Date Balaji Mayo MD [address] [place] [phone] PCP - General Family Medicine 06/06/22 documented as of this encounter
--- OUTSIDE RECORDS SUMMARY | 2024-12-22 17:02 | XMS_ITS | Encounter Summary ---
Author Organization [facility], Address [address] [place] [address] Phone Care Team Providers Care Sod Stripper Name Role Phone Balaji Mayo MD Primary Care Provider [phone]- [phone] Encounter Details Date Type Department Care Team (Late st Contact Info) Description 07/29/2024 Documentation Only [facility], [address] [place] [address] [place] [address] [place] [address] Social History Tobacco Use Types [...] on filedocumented in this encounter Care Teams Sod Stripper Relationship Specialty Start Date End Date Balaji Mayo MD [address] [place] [phone] PCP - General Family Medicine 06/06/22 documented as of this encounter
--- OUTSIDE RECORDS SUMMARY | 2024-12-22 17:02 | XMS_ITS | Encounter Summary ---
Author Organization [facility] Address [address] [place] [address] Phone Care Team Providers Care Mental Health Practitioner Name Role Phone Balaji Mayo MD Primary Care Provider + Balaji Mayo MD Unavailable Encounter Details Date Type Department Care Team (Late st Contact Info) Description 11/28/2023 Procedure Pass [facility], Ct Scan - [facility] [address] [place] [address] Social History Tobacco Use Types Packs/Day Years [...] 11:41 PM EDT Eveline Toro RN * [place] Suicide Severity Rating Scale (Screener/Recent Self-Report) Question [...] on filedocumented in this encounter Care Teams Mental Health Practitioner Relationship Specialty Start Date End Date Balaji Mayo MD [address] [place] [address] PCP - General Family Medicine 10/23/23 Balaji Mayo MD [address] [place] [address] Family Medicine 10/23/23 documented as of this encounter Additional Source Comments The information contained in this document represents components of the legal health record. It is not the complete legal health record.[facility]
--- OUTSIDE RECORDS SUMMARY | 2024-12-22 17:02 | XMS_ITS | Encounter Summary ---
Author Organization [facility] Address [address] [place] [address] Phone Care Team Providers Care Optometric Tech Name Role Phone Balaji Mayo MD Primary Care Provider + Balaji Mayo MD Primary Care Provider + Balaji Mayo MD Unavailable Encounter Details Date Type Department Care Team (Latest Contact Info) Description 09/21/2021 Transcribe Orders [facility] [address] [place] [address] [phone] Margie Maldonado MD [address] [place] [address] [phone] [email or web address] Hypertension, unspecified type (Primary Dx); Abdominal aortic aneurysm without rupture; Benign prostatic hyperplasia, unspecified whether lower urinary tract symptoms present Social History Tobacco Use Types Packs/Day Years Used Date Smoking Tobacco: Never Assessed Sex and Gender Information Value Date Recorded Sex Assigned at Not on file Legal Sex Male 9:01 AM EST Gender Identity Not on file Sexual Orientation Not on file documented as of this encounter Plan of Treatment Not on file documented as of this encounter Results * CBC (09/21/2021 6:30 AM EDT) WBC 9.12 4.00 - 11.00 K/uL [facility] RBC 4.47 3.90 - 5.69 M/uL [facility] HGB 13.5 12.4 - 17.3 g/dL [facility] HCT 41.1 37.0 - 51.0 % [facility] PLT 258 140 - 430 K/uL [facility] MCV 91.9 78.0 - 97.0 fL [facility] MCH 30.2 25.0 - 33.0 pg [facility] MCHC 32.8 32.0 - 36.0 g/dL [facility] RDW 13.6 11.0 - 15.0 % [facility] MPV 11.3 8.4 - 12.8 fl [facility] NRBC 0.00 0 /100 WBCs [facility] ABSOLUTE NRBC 0.00 0 K/uL [facility] Blood 09/21/2021 6:30 AM EDT 09/21/2021 8:23 AM EDT us Margie Maldonado MD LAB BLOOD ORDERABLES Final Res ult [address] [address] * (ABNORMAL) Comprehensive metabolic panel (09/21/2021 6:30 AM EDT) SODIUM 141 133 - 146 mmol/L [facility] POTASSIUM 4.2 3.3 - 5.1 mmol/L [facility] CHLORIDE 107 96 - 108 mmol/L [facility] CO2 24 21 - 35 mmol/L [facility] BUN 16 6 - 19 mg/dL [facility] CREATININE 1.70(H) 0.5 - 1.5 mg/dL [facility] GLUCOSE 94 70 - 99 mg/dL [facility] ALBUMIN 3.2(L) 3.9 - 4.8 g/dL [facility] TOTAL PROTEIN 6.0(L) 6.5 - 8.0 g/dL [facility] CALCIUM 8.8 8.4 - 10.3 mg/dL [facility] ALKALINE PHOSPHATASE 110 39 - 117 U/L [facility] TOTAL BILIRUBIN 0.2 0.0 - 1.2 mg/dL [facility] AST 16 0 - 37 U/L [facility] ALT 19 0 - 40 U/L [facility] GLOBULIN 2.8 1 - 4.8 g/dL [facility] EGFR 44(L) >59 mL/min/1.7 3m2 [facility] Comment:Estimated glomerular filtration rate calculated using the CKD-EPI refit equation. ANION GAP 14 10 - 20 mmol/L [facility] Blood 09/21/2021 6:30 AM EDT 09/21/2021 8:23 AM EDT us Margie Maldonado MD LAB BLOOD ORDERABLES Final Res ult [address] [address] documented in this encounter Visit Diagnoses Diagnosis Hypertension, unspecified type- Primary Abdominal aortic aneurysm without rupture Abdominal aneurysm without mention of rupture Benign prostatic hyperplasia, unspecified whether lower urinary tract symptoms present documented in this encounter Care Teams Optometric Tech Relationship Specialty Start Date End Date Balaji Mayo MD [address] [place] [address] PCP - General Family Medicine 06/01/21 10/22/23 Balaji Mayo MD [address] [place] [address] PCP - General Family Medicine 10/23/23 Balaji Mayo MD [address] [place] [address] Family Medicine 10/23/23 documented as of this encounter Additional Source Comments The information contained in this document represents components of the legal health record. It is not the complete legal health record.[facility]
--- OUTSIDE RECORDS SUMMARY | 2024-12-22 17:02 | XMS_ITS | Encounter Summary ---
Author Organization [facility] Address [address] [place] [address] Phone Care Team Providers Care Sketch Maker Name Role Phone Balaji Mayo MD Primary Care Provider + Balaji Mayo MD Unavailable [phone] Encounter Details Date Type Department Care Team (Late st Contact Info) Description 11/28/2023 Procedure Pass [facility], Ct Scan - [facility] [address] [place] [address] Social History Tobacco Use Types Packs/Day Years Used Date Smoking Tobacco: Some Days Cigars Smokeless Tobacco: Never Home Health Assessment: Transportation Answer Date Recorded Lack of Transportation (Medical) No 03/29/2023 Lack of Transportation (Non-Medical) No 03/29/2023 Patient Unable or Declines to Respond No 03/29/2023 Education Answer Date Recorded Are you interested in more education? Not on ilz e 08/20/2022 Are you concerned about learning? [...] 11:41 PM EDT Eveline Toro RN * [place] Suicide Severity Rating Scale (Screener/Recent Self-Report) Question [...] on filedocumented in this encounter Care Teams Sketch Maker Relationship Specialty Start Date End Date Balaji Mayo MD [address] [place] [address] PCP - General Family Medicine 10/23/23 Balaji Mayo MD [address] [place] [address] Family Medicine 10/23/23 documented as of this encounter Additional Source Comments The information contained in this document represents components of the legal health record. It is not the complete legal health record.[facility]
--- OUTSIDE RECORDS SUMMARY | 2024-12-22 17:02 | XMS_ITS | Encounter Summary ---
Author Organization [facility] Address [address] [place] [address] Care Team Providers Care Unit Receptionist Name Role Phone Balaji Mayo MD Primary Care Provider [phone] Encounter Details Date Type Department Care Team (Late st Contact Info) Description 12/07/2024 Lab Requisition [facility] - Main Lab [address] [facility] [place] [address] Radha Tyson MD [address] [address] Essential (primary) hypertension Social History Tobacco Use [...] Associated Diagnosis Comments COMPLETE BLOOD COUNT Routine 12/09/2024 5:52 AM EDT Essential (primary) hypertension BASIC METABOLIC PANEL Routine 12/09/2024 5:52 AM EDT Essential (primary) hypertension documented in this encounter Results * (ABNORMAL) Basic metabolic panel (12/09/2024 5:52 AM EDT) Sodium 140 133 - 145 mmol/L LAB CHEMISTRY METHOD 12/09/2024 9:19 AM [facility] Potassium 4.3 3.5 - 5.5 mmol/L LAB CHEMISTRY METHOD 12/09/2024 9:19 AM [facility] Chloride 109 96 - 110 mmol/L LAB CHEMISTRY METHOD 12/09/2024 9:19 AM [facility] CO2 24 21 - 32 mmol/L LAB CHEMISTRY METHOD 12/09/2024 9:19 AM [facility] Anion Gap 7 3 - 11 LAB CHEMISTRY METHOD 12/09/2024 9:19 AM [facility] Glucose 96 70 - 100 mg/dL LAB CHEMISTRY METHOD 12/09/2024 9:19 AM [facility] BUN 31(H) 5 - 25 mg/dL LAB CHEMISTRY METHOD 12/09/2024 9:19 AM [facility] Creatinine 2.69(H) 0.70 - 1.30 mg/dL LAB CHEMISTRY METHOD 12/09/2024 9:19 AM [facility] eGFR 25(L) >=60 mL/min/1. 73m2 LAB CHEMISTRY METHOD 12/09/2024 9:19 AM [facility] Comment:Calculation based on the Chronic Kidney Disease Epidemiology Collaboration (CKD-EPI) equation refit without adjustment for race. BUN/Creatinine Ratio 11.5 LAB CHEMISTRY METHOD 12/09/2024 9:19 AM [facility] Calcium 9.1 8.5 - 10.5 mg/dL LAB CHEMISTRY METHOD 12/09/2024 9:19 AM [facility] Blood Venous blood specimen / Unknown Venipuncture / Unknown 12/09/2024 5:52 AM EDT 12/09/2024 8:27 AM EDT us Radha Tyson MD LAB BLOOD ORDERABLES Fin al Result [facility] [address] [place] [address], * (ABNORMAL) Complete blood count (12/09/2024 5:52 AM EDT) [facility] WBC 10.4 4.8 - 10.8 K/mcL LAB HEMETOLOGY METHOD 12/09/2024 8:44 AM EDT [facility] RBC 4.40(L) 4.50 - 5.50 M/mcL LAB HEMETOLOGY METHOD 12/09/2024 8:44 AM EDT [facility] Hemoglobin 12.6(L) 13.5 - 17.5 g/dL LAB HEMETOLOGY METHOD 12/09/2024 8:44 AM EDT [facility] Hematocrit 40.0(L) 42.0 - 54.0 % LAB HEMETOLOGY METHOD 12/09/2024 8:44 AM EDT [facility] MCV 90.1 79.0 - 98.0 FL LAB HEMETOLOGY METHOD 12/09/2024 8:44 AM EDT [facility] MCH 28.4 27.0 - 32.0 pcg LAB HEMETOLOGY METHOD 12/09/2024 8:44 AM EDT [facility] MCHC 31.5(L) 32.0 - 37.0 g/dL LAB HEMETOLOGY METHOD 12/09/2024 8:44 AM EDT [facility] RDW 14.6 11.0 - 15.0 % LAB HEMETOLOGY METHOD 12/09/2024 8:44 AM EDT [facility] Platelets 234 130 - 400 K/mcL LAB HEMETOLOGY METHOD 12/09/2024 8:44 AM EDT [facility] MPV 11.4(H) 7.0 - 11.0 FL LAB HEMETOLOGY METHOD 12/09/2024 8:44 AM EDT [facility] NRBC 0.0 <1.0 % LAB HEMETOLOGY METHOD 12/09/2024 8:44 AM EDT [facility] NRBC Absolute 0.00 <0.10 K/mcL LAB HEMETOLOGY METHOD 12/09/2024 8:44 AM EDT [facility] Blood Venous blood specimen / Unknown Venipuncture / Unknown 12/09/2024 5:52 AM EDT 12/09/2024 8:27 AM EDT us Radha Tyson MD LAB BLOOD ORDERABLES Fin al Result [facility] [address] [place] [address], documented in this encounter Visit Diagnoses Diagnosis Essential (primary) hypertension Unspecified essential hypertension documented in this encounter Care Teams Unit Receptionist Relationship Specialty Start Date End Date Balaji Mayo MD [facility] [address] [place] [address] PCP - General Internal Medicine 06/04/20 documented as of this encounter
--- OUTSIDE RECORDS SUMMARY | 2024-12-22 17:02 | XMS_ITS | Clinical Summary ---
Author Organization [facility] Address [address] [place] [address] Phone Care Team Providers Care Player Development Executive Name Role Phone Balaji Mayo MD Primary Care Provider + Balaji Mayo MD Unavailable [phone] Allergies Active Allergy Reactions Criticality Noted Date Comments Aripiprazole Unknown 09/10/2021 Clozapine Unknown 09/10/2021 Diphenhydramine Unknown 09/10/2021 Hydroxyzine Unknown 09/10/2021 Loratadine Unknown 09/10/2021 Nicotine 09/10/2021 Peanut 09/10/2021 Medications amLODIPine (NORVASC) 2.5 MG tablet Take 10 mg by mouth daily. 02/22/2023 Active aspirin 81 mg chewable tablet Take 81 mg by mouth daily. 02/22/2023 Active buPROPion (WELLBUTRIN SR) 150 MG SR 12 hr tablet Take 150 mg by mouth 2 (two) times a day. 02/22/2023 Active FLUoxetine (PROZAC) 40 MG capsule Take 40 mg by mouth daily. 02/22/2023 Active fluticasone prp-sod.chl,bic arb 50 mcg- 0.9 % ksps 1 spray by Nasal route 2 (two) times a day (once in the morning and once in the afternoon). 02/22/2023 Active lamoTRIgine (LAMICTAL) 100 MG IMMEDIATE release tablet Take 25 mg by mouth 2 (two) times a day. 02/22/2023 Active atorvastatin (LIPITOR) 80 MG tablet Take 80 mg by mouth daily. 02/22/2023 Active omeprazole (PRILOSEC) 20 MG capsule Take 20 mg by mouth daily. 02/22/2023 Active clopidogrel bisulfate (PLAVIX ORAL) Take 75 mg by mouth daily. 02/22/2023 Active QUEtiapine (SEROQUEL) 400 MG tablet Take 300 mg by mouth nightly at bedtime. 02/22/2023 Active amLODIPine (NORVASC) 2.5 MG tablet Take 1 tablet by mouth every morning. 08/18/2023 Active aspirin 81 MG EC tablet Take 1 tablet by mouth every morning. 07/31/2023 Active atorvastatin (LIPITOR) 80 MG tablet 07/18/2023 Active buPROPion (WELLBUTRIN SR) 150 MG SR 12 hr tablet Take 150 mg by mouth every morning. 10/14/2023 Active clopidogrel (PLAVIX) 75 mg tablet 10/21/2023 Active esomeprazole (NEXIUM) 20 MG capsule 07/18/2023 Active FLUoxetine (PROZAC) 40 MG capsule Take 20 mg by mouth daily. 07/18/2023 Active fluticasone propionate (FLONASE) 50 mcg/actuation nasal spray 08/18/2023 Active lamoTRIgine (LAMICTAL) 200 MG IMMEDIATE release tablet 07/18/2023 Acti ve metoprolol tartrate (LOPRESSOR) 25 MG tablet 07/18/2023 Active nitroglycerin (NITROSTAT) 0.4 MG SL tablet DISSOLVE ONE TABLET UNDER TONGUE NEEDED FOR CHEST PAIN EVERY 5 MINUTES DIRECTED 08/18/2023 Active oxyCODONE 5 MG immediate release tablet Take 5 mg by mouth 2 (two) times a day as needed. 08/01/2023 Active QUEtiapine (SEROQUEL XR) 400 MG 24 hr tablet 07/18/2023 Active SENNA 8.6 mg tablet 08/18/2023 Active traZODone (DESYREL) 100 MG tablet Take 200 mg by mouth nightly at bedtime. 08/15/2023 Active Active Problems No known active problems Social History Tobacco Use Types Packs/Day Years Used Date Smoking Tobacco: Some Days Cigars Smokeless Tobacco: Never Tobacco Cessation:Ready to Q uit: Not Asked; Counseling Given: Not Answered Home Health Assessment: Transportation Answer Date Recorded [...] on file Sexual Orientation Not on file Last Filed Vital Signs Vital Sign Reading Time Taken Comments Blood Pressure 118/73 11/28/2023 11:21 PM EDT Pulse 55 11/28/2023 11:21 PM EDT Temperature 36.8 C (98.2 F) 11/28/2023 11:21 PM EDT Respiratory Rate 16 11/28/2023 11:21 PM EDT Oxygen Saturation 94% 11/28/2023 11:21 PM EDT Inhaled Oxygen Concentration - - Weight 81.6 kg (180 lb) 11/28/2023 11:21 PM EDT Height 182.9 cm (6') 11/28/2023 11:21 PM EDT Body Mass Index 24.41 11/28/2023 11:21 PM EDT Plan of Treatment Health Maintenance Due Date Last Done Comments LIPID PANEL 1956 DEPRESSION SCREENING 1968 SMOKING Hx and SMOKELESS TOBACCO SCREENING 1969 HEPATITIS C SCREENING 1974 COLOGUARD 2001 COLONOSCOPY 2001 COLORECTAL CANCER SCREENING 2001 FIT TEST 2001 FOBT 2001 SIGMOIDOSCOPY 2001 VIRTUAL COLONOSCOPY 2001 ZOSTER VACCINES (1 of 2) 2006 PNEUMOCOCCAL VACCINES (50+ years) (2 of 2 - PCV) 05/03/2018 05/03/2017, 12/17/2012 ABDOMINAL AORTIC ANEURYSM (AAA) SCREENING 2021 COVID-19 VACCINE ( - season) 2023 INFLUENZA VACCINE (#1) 2024 , 03/04/2020, 01/29/2019, Additional history exists Adult Td,Tdap Booster 08/03/2027 08/02/2017 RSV VACCINE (1 - 1-dose 75+ series) 07/02/2031 HEPATITIS A VACCINES Aged Out No long er eligible based on patient's age to complete this topic HIB VACCINES Aged Out No longer eligi ble based on patient's age to complete this topic MENINGOCOCCAL VACCINES (ACWY) Aged Out No longer eligible based on patient's age to complete this topic MENINGOCOCCAL VACCINES (B) Aged Out N o longer eligible based on patient's age to complete this topic Medical Devices Not on file Insurance MEDICARE PART A & B [facility] MEDICARE PART A & B [facility] MEDICARE REPLACEMENT MEDICARE PART A & B MEDICARE PART A & B MEDICARE PART A & B MEDICARE REPLACEMENT [employer] [place] [id number] MEDICARE PART A & B MEDICARE PART A & B O MEDICARE REPLACEMENT [employer] [place] [id number] MEDICARE PART A & B Member Subscriber Plan / Payer (Ef fective 1996-Present) Name:Edward Rosa Member ID:[id number] Relation to Subscriber:Self Name:Edward Rosa Subscriber ID:[id number] Payer ID:[id number] Group ID:Not on file Type:Medicare Address: [employer] [address] MEDICARE REPLACEMENT [place] [id number] MEDICARE PART A & B [facility] MEDICARE RE[place]EMENT [place] [address] [place] [address] [place] [address] [place] [address] MEDICARE REPLACEMENT [facility] MEDICARE [place] [address] [place] [address] MEDICARE REPLACEMENT [facility] MEDICARE REPLACEMENT [facility] MEDICARE REPLACEMENT Care Teams Player Development Executive Relationship Specialty Start Date End Date Balaji Mayo MD [address] [place] [phone] PCP - General Family Medicine 10/23/23 Balaji Mayo MD [address] [place] [address] Family Medicine 10/23/23 Additional Source Comments The information contained in this document represents components of the legal health record. It is not the complete legal health record.[facility]
--- OUTSIDE RECORDS SUMMARY | 2024-12-22 17:02 | XMS_ITS | Encounter Summary ---
Author Organization [facility], Address [address] [place] [address] Phone Care Team Providers Care Power Transformer Inspector Name Role Phone Balaji Mayo MD Primary Care Provider [phone] Encounter Details Date Type Department Care Team (Late st Contact Info) Description 07/29/2024 Documentation Only [facility], [address] [place] [address] [place] [address] [place] [address] Social History Tobacco Use Types [...] on filedocumented in this encounter Care Teams Power Transformer Inspector Relationship Specialty Start Date End Date Balaji Mayo MD [address] [place] [phone] PCP - General Family Medicine 06/06/22 documented as of this encounter
--- OUTSIDE RECORDS SUMMARY | 2024-12-22 17:02 | XMS_ITS | Encounter Summary ---
Author Organization [facility], Address [address] [place] [address] Phone Care Team Providers Care Bioinformatics Computer Scientist Name Role Phone Balaji Mayo MD Primary Care Provider [phone] Encounter Details Date Type Department Care Team (Late st Contact Info) Description 07/29/2024 Documentation Only [facility], [address] [place] [address] [place] [address] [place] [address] Social History Tobacco Use Types [...] on filedocumented in this encounter Care Teams Bioinformatics Computer Scientist Relationship Specialty Start Date End Date Balaji Mayo MD [address] [place] [phone] PCP - General Family Medicine 06/06/22 documented as of this encounter
--- OUTSIDE RECORDS SUMMARY | 2024-12-22 17:02 | XMS_ITS | Encounter Summary ---
Author Organization [facility], Address [address] [place] [address] Phone Care Team Providers Care Sales Donor Recruitment Representative Name Role Phone Balaji Mayo MD Primary Care Provider [phone]- [phone] Encounter Details Date Type Department Care Team (Late st Contact Info) Description 10/03/2023 Office Communication [facility], - [address] [place] [address] Tab Piña MD [address] [place] [address] [place] [id number] Social History Tobacco Use Types Packs/Day Years [...] on filedocumented in this encounter Care Teams Sales Donor Recruitment Representative Relationship Specialty Start Date End Date Balaji Mayo MD [address] [facility] [place] [phone] PCP - General Family Medicine 06/06/22 documented as of this encounter
--- OUTSIDE RECORDS SUMMARY | 2024-12-22 17:02 | XMS_ITS | Encounter Summary ---
Author Organization [facility] Address [address] [place] [address] Phone Care Team Providers Care Food And Drug Inspector Name Role Phone Balaji Mayo MD Primary Care Provider + Balaji Mayo MD Unavailable [phone] Encounter Details Date Type Department Care Team (Late st Contact Info) Description 11/28/2023 Procedure Pass [facility], Ct Scan - [facility] [address] [place] [address] Social History Tobacco Use Types Packs/Day Years [...] 11:41 PM EDT Eveline Toro RN * [place] Suicide Severity Rating Scale (Screener/Recent Self-Report) Question [...] on filedocumented in this encounter Care Teams Food And Drug Inspector Relationship Specialty Start Date End Date Balaji Mayo MD [address] [place] [phone] PCP - General Family Medicine 10/23/23 Balaji Mayo MD [address] [place] [address] Family Medicine 10/23/23 documented as of this encounter Additional Source Comments The information contained in this document represents components of the legal health record. It is not the complete legal health record.[facility]
--- OUTSIDE RECORDS SUMMARY | 2024-12-22 17:02 | XMS_ITS | Encounter Summary ---
Author Organization [facility] Address [address] [place] [phone] Phone Care Team Providers Care Candle Wicker Name Role Phone Balaji Mayo MD Primary Care Provider + Balaji Mayo MD Unavailable [phone] Encounter Details Date Type Department Care Team (Late st Contact Info) Description 12/13/2023 Transcribe Orders [facility] [address] [place] [address] Brody Mejia MD [address] [place] [phone] [email or web address] Insurance t Primary osteoarthritis, unspecified site (Primary Dx) Social History Tobacco Use Types Packs/Day Years [...] Procedure Name Priority Date/Time Associated Diagnosis Comments CBC Routine 12/13/2023 9:20 AM EDT Primary osteoarthritis, unspecified site BASIC METABOLIC PANEL Routine 12/13/2023 9:20 AM EDT Primary osteoarthritis, unspecified site documented in this encounter Results * (ABNORMAL) CBC (12/13/2023 9:20 AM EDT) WBC 7.27 4.00 - 11.00 K/uL [facility] RBC 3.82(L) 3.90 - 5.69 M/uL [facility] HGB 10.8(L) 12.4 - 17.3 g/dL [facility] HCT 34.5(L) 37.0 - 51.0 % [facility] PLT 320 140 - 430 K/uL [facility] MCV 90.3 78.0 - 97.0 fL [facility] MCH 28.3 25.0 - 33.0 pg [facility] MCHC 31.3(L) 32.0 - 36.0 g/dL [facility] RDW 14.7 11.0 - 15.0 % [facility] MPV 11.4 8.4 - 12.8 fl [facility] Blood 12/13/2023 9:20 AM EDT 12/13/2023 12:06 PM EDT us Brody Mejia MD LAB BLOOD ORDERABLES Genie l Result Performing Organization Address [facility] Co de Phone Number [address] [address] * (ABNORMAL) Basic metabolic panel (12/13/2023 9:20 AM EDT) SODIUM 140 133 - 146 mmol/L [facility] CHLORIDE 103 96 - 108 mmol/L [facility] POTASSIUM 4.7 3.3 - 5.1 mmol/L [facility] Comment:Specimen slightly he molyzed, result may be falsely elevated. CO2 27 21 - 35 mmol/L [facility] BUN 22(H) 6 - 19 mg/dL [facility] CREATININE 1.90(H) 0.5 - 1.5 mg/dL [facility] GLUCOSE 127(H) 70 - 99 mg/dL [facility] CALCIUM 8.9 8.4 - 10.3 mg/dL [facility] EGFR 38(L) >59 mL/min/1.7 3m2 [facility] Comment:Estimated glomerular filtration rate calculated using the CKD-EPI refit equation. ANION GAP 15 10 - 20 mmol/L [facility] Blood 12/13/2023 9:20 AM EDT 12/13/2023 12:06 PM EDT us Brody Mejia MD LAB BLOOD ORDERABLES Genie l Result Performing Organization Address [facility]/ZIP Co de Phone Number [address] [address] documented in this encounter Visit Diagnoses Diagnosis Primary osteoarthritis, unspecified site- Primary documented in this encounter Care Teams Candle Wicker Relationship Specialty Start Date End Date Balaji Mayo MD [address] [place] [phone] PCP - General Family Medicine 10/23/23 Balaji Mayo MD [address] [place] [phone] Family Medicine 10/23/23 documented as of this encounter Additional Source Comments The information contained in this document represents components of the legal health record. It is not the complete legal health record.[facility]
--- OUTSIDE RECORDS SUMMARY | 2024-12-22 17:02 | XMS_ITS | Encounter Summary ---
Author Organization [facility] Address [address] [place] [address] Care Team Providers Care Director Operations Name Role Phone Balaji Mayo MD Primary Care Provider [phone] Encounter Details Date Type Department Care Team (Late st Contact Info) Description 11/29/2024 Lab Requisition [facility] [address] [facility] [place] [address] Radha Tyson MD [address] [address] Essential (primary) hypertension Social History Tobacco Use [...] Associated Diagnosis Comments COMPLETE BLOOD COUNT Routine 12/02/2024 6:09 AM EDT Essential (primary) hypertension BASIC METABOLIC PANEL Routine 12/02/2024 6:09 AM EDT Essential (primary) hypertension documented in this encounter Results * (ABNORMAL) Basic metabolic panel (12/02/2024 6:09 AM EDT) Sodium 137 133 - 145 mmol/L LAB CHEMISTRY METHOD 12/02/2024 12:39 PM [facility] Potassium 4.3 3.5 - 5.5 mmol/L LAB CHEMISTRY METHOD 12/02/2024 12:39 PM [facility] Chloride 106 96 - 110 mmol/L LAB CHEMISTRY METHOD 12/02/2024 12:39 PM [facility] CO2 25 21 - 32 mmol/L LAB CHEMISTRY METHOD 12/02/2024 12:39 PM [facility] Anion Gap 6 3 - 11 LAB CHEMISTRY METHOD 12/02/2024 12:39 PM [facility] Glucose 71 70 - 100 mg/dL LAB CHEMISTRY METHOD 12/02/2024 12:39 PM [facility] BUN 30(H) 5 - 25 mg/dL LAB CHEMISTRY METHOD 12/02/2024 12:39 PM [facility] Creatinine 2.53(H) 0.70 - 1.30 mg/dL LAB CHEMISTRY METHOD 12/02/2024 12:39 PM [facility] eGFR 27(L) >=60 mL/min/1. 73m2 LAB CHEMISTRY METHOD 12/02/2024 12:39 PM [facility] Comment:Calculation based on the Chronic Kidney Disease Epidemiology Collaboration (CKD-EPI) equation refit without adjustment for race. BUN/Creatinine Ratio 11.9 LAB CHEMISTRY METHOD 12/02/2024 12:39 PM [facility] Calcium 8.9 8.5 - 10.5 mg/dL LAB CHEMISTRY METHOD 12/02/2024 12:39 PM [facility] Blood Venous blood specimen / Unknown Venipuncture / Unknown 12/02/2024 6:09 AM EDT 12/02/2024 11:52 AM EDT us Radha Tyson MD LAB BLOOD ORDERABLES Fin al Result [facility] [address] [place] [address], * (ABNORMAL) Complete blood count (12/02/2024 6:09 AM EDT) [facility] WBC 10.5 4.8 - 10.8 K/mcL LAB HEMETOLOGY METHOD 12/02/2024 12:43 PM EDT [facility] RBC 4.40(L) 4.50 - 5.50 M/mcL LAB HEMETOLOGY METHOD 12/02/2024 12:43 PM EDT [facility] Hemoglobin 12.7(L) 13.5 - 17.5 g/dL LAB HEMETOLOGY METHOD 12/02/2024 12:43 PM EDT [facility] Hematocrit 39.6(L) 42.0 - 54.0 % LAB HEMETOLOGY METHOD 12/02/2024 12:43 PM EDT [facility] MCV 90.0 79.0 - 98.0 FL LAB HEMETOLOGY METHOD 12/02/2024 12:43 PM EDT [facility] MCH 28.9 27.0 - 32.0 pcg LAB HEMETOLOGY METHOD [facility]02[facility]24 12[facility] MCHC 32.1 32.0 - 37.0 g/dL LAB HEMETOLOGY METHOD 12/02/2024 12:43 PM EDT [facility] RDW 14.6 11.0 - 15.0 % LAB HEMETOLOGY METHOD 12/02/2024 12:43 PM EDT [facility] Platelets 237 130 - 400 K/mcL LAB HEMETOLOGY METHOD 12/02/2024 12:43 PM EDT [facility] MPV 11.8(H) 7.0 - 11.0 FL LAB HEMETOLOGY METHOD 12/02/2024 12:43 PM EDT [facility] NRBC 0.0 <1.0 % LAB HEMETOLOGY METHOD 12/02/2024 12:43 PM EDT [facility] NRBC Absolute 0.00 <0.10 K/mcL LAB HEMETOLOGY METHOD 12/02/2024 12:43 PM EDT [facility] Blood Venous blood specimen / Unknown Venipuncture / Unknown 12/02/2024 6:09 AM EDT 12/02/2024 11:52 AM EDT us Radha Tyson MD LAB BLOOD ORDERABLES Fin al Result [facility] [address] [place] [address], documented in this encounter Visit Diagnoses Diagnosis Essential (primary) hypertension Unspecified essential hypertension documented in this encounter Care Teams Director Operations Relationship Specialty Start Date End Date Balaji Mayo MD [facility] [address] [place] [id number] PCP - General Internal Medicine 06/04/20 documented as of this encounter
--- OUTSIDE RECORDS SUMMARY | 2024-12-22 17:03 | XMS_ITS | Encounter Summary ---
Author Organization [facility], Address [address] [place] [address] Phone Care Team Providers Care Medical Affairs Director Name Role Phone Balaji Mayo MD Primary Care Provider [phone]- [phone] Encounter Details Date Type Department Care Team (Late st Contact Info) Description 07/29/2024 Documentation Only [facility], [address] [place] [address] [place] [address] [place] [address] Social History Tobacco Use Types [...] on filedocumented in this encounter Care Teams Medical Affairs Director Relationship Specialty Start Date End Date Balaji Mayo MD [address] [place] [phone] PCP - General Family Medicine 06/06/22 documented as of this encounter
--- OUTSIDE RECORDS SUMMARY | 2024-12-22 17:03 | XMS_ITS | Clinical Summary ---
Author Organization [facility], Address [address] [facility] [address] [place] [address] Phone Care Team Providers Care Associate Professor Of Art Name Role Phone Balaji Mayo MD Primary Care Provider [phone]- [phone] Allergies Active Allergy Reactions Criticality Noted Date Comments Aripiprazole 09/10/2021 Clozapine 09/10/2021 Diphenhydramine 09/10/2021 Diphenhydramine Hcl 09/25/2020 Hydroxyzine 09/10/2021 Loratadine 09/10/2021 Nicotine 09/25/2020 Other Reaction(s): rashes Peanut (Diagnostic) 09/10/2021 Medications aspirin (ST TIMOTHY) 81 MG EC tablet Take 81 mg by mouth 1 (one) time each day Active atorvastatin (LIPITOR) 80 MG tablet Take 80 mg by mouth 1 (one) time each day Active buPROPion SR (WELLBUTRIN SR) 150 MG 12 hr tablet Take 150 mg by mouth in the morning and 150 mg in the evening. Do not crush, chew, or split. . Active clopidogrel (PLAVIX) 75 MG tablet Take 75 mg by mouth 1 (one) time each day Active FLUoxetine (PROzac) 40 MG capsule Take 40 mg by mouth 1 (one) time each day Active isosorbide mononitrate (IMDUR) 30 MG 24 hr tablet Take 30 mg by mouth 1 (one) time each day Do not crush or chew. Active metoprolol tartrate 25 MG tablet Take 25 mg by mouth in the morning and 25 mg in the evening. Active nitroglycerin (NITROSTAT) 0.[address] 0.4 mg under the tongue every 5 (five) minutes if needed for chest pain Active QUEtiapine (SEROquel) 100 MG tablet Take 100 mg by mouth every night Active traZODone (DESYREL) 100 MG tablet Take 100 mg by mouth every night Active lamoTRIgine (LaMICtal) 100 MG tablet Take 200 mg by mouth in the morning and 200 mg in the evening. 3 Active omeprazole (PriLOSEC) [address] capsule Take 20 mg by mouth 1 (one) time each day Do not crush or chew. Active acetaminophen (Tylenol 8 Hour Arthritis Pain) 650 MG 8 hr tablet Take 650 mg by mouth every 8 (eight) hours if needed for mild pain Do not crush, chew, or split. Active amLODIPine (NORVASC) 5 MG tablet 4 Active esomeprazole (NexIUM) [address] capsule 4 Active senna (SENOKOT) 8.6 MG tablet TAKE 1 TABLET BY MOUTH EVERY NIGHT AT BEDTIME NEEDED FOR CONSTIPATION 4 Active Active Problems Problem Noted Date Diagnosed Date Stage 3b chronic kidney disease 09/27/2022 Essential hypertension 09/27/2022 Hyperglycemia 09/27/2022 Renal artery stenosis 07/06/2020 Overview (09/30/2024): Last Assessment & Plan: Patient has history of renal artery stenosis status post stenting in the past. He continues to follow closely with nephrology and vascular. Immunizations Immunization Administration Dates Next Due [employer] SARS-COV-2 02/17/2021,07/09/2020,06/18/19 21 Social History Tobacco Use Types Packs/Day Years Used Date Smoking Tobacco: Every Day Sex and Gender Information Value Date Recorded Sex Assigned at Not on file Legal Sex Male 5:24 PM EST Gender Identity Not on file Sexual Orientation Not on file Plan of Treatment Health Maintenance Due Date Last Done Comments Pneumococcal Vaccine: 50+ Years (1 of 2 - PCV) 07/02/1975 Colorectal Cancer Screening: Annual FOBT 2005 Colorectal Cancer Screening: Colonoscopy 2005 Colorectal Cancer Screening: Sigmoidoscopy 2005 Influenza Vaccine (#1) 2024 3, 01/28/2023 Hepatitis B Vaccine Aged Out No longe r eligible based on patient's age to complete this topic Procedures Procedure Name Priority Date/Time Associated Diagnosis Comments PTH, INTACT Routine 09/26/2024 10:20 AM EDT VITAMIN D 25 HYDROXY Routine 09/26/2024 10:20 AM EDT PROTEIN / CREATININE RATIO, URINE Routine 09/26/2024 10:20 AM EDT IRON PANEL (FE, TIBC, TSAT) Routine 09/26/2024 10:20 AM EDT CBC Routine 09/26/2024 10:20 AM EDT RENAL FUNCTION PANEL Routine 09/26/2024 10:20 AM EDT PTH, INTACT Routine 09/26/2024 10:19 AM EDT VITAMIN D 25 HYDROXY Routine 09/26/2024 10:19 AM EDT PROTEIN / CREATININE RATIO, URINE Routine 09/26/2024 10:19 AM EDT RENAL FUNCTION PANEL Routine 09/26/2024 10:19 AM EDT from Last 3 Months Results * Iron Panel (Fe, TIBC, TSAT) (09/26/2024 10:20 AM EDT) Iron 108 38 - 169 ug/dL [facility] TIBC 262 250 - 450 ug/dL [facility] UIBC 154 111 - 343 ug/dL [facility] Iron Saturation (TSat) 41 15 - 55 % [facility] 09/26/2024 10:2 0 AM EDT 09/26/2024 us Tab Piña MD LAB BLOOD ORDERABLES Final Resul t [facility] [address] [place] [address] * Protein, Total, Random Urine w/Creatinine (Protein/Creat Ratio) (09/26/2024 10:20 AM EDT) Only the most recent of2 resultswithin the time period is included. Creatinine, Ur 270.3 Not Estab. mg/dL [facility] Protein, Ur 52.7 Not Estab. mg/dL [facility] Urine Protein/Creatin ine Ratio 195 0 - 200 mg/g creat [facility] 09/26/2024 10:2 0 AM EDT 09/26/2024 Tab Piña MD LAB URINE ORDERABLES Final Resul t Performing Organization Address [facility] Co de Phone Number [facility] [address] [place] [address] * (ABNORMAL) Vitamin D 25 Hydroxy (09/26/2024 10:20 AM EDT) Only the most recent of2 resultswithin the time period is included. Vitamin D, 25-OH, Total 21.8(L) 30.0 - 100.0 ng/mL [facility] Comment: Vitamin D deficiency has been defined by the [place] of Medicine and an Endocrine Society practice guideline as a level of serum 25-OH vitamin D less than 20 ng/mL (1,2). The Endocrine Society went on to further define vitamin D insufficiency as a level between 21 and 29 ng/mL (2). 1. IOM ([place] of Medicine). 2010. Dietary reference intakes for calcium and D. [place]: The National Academies Press. 2. Yenny LOVE, Andrey GASTON, Emeli GANT, et al. Evaluation, treatment, and prevention of vitamin D deficiency: an Endocrine Society clinical practice guideline. JCEM. 2010; 96(7):1911-30. 09/26/2024 10:2 0 AM EDT 09/26/2024 us Tab Piña MD LAB BLOOD ORDERABLES Final Resul t Performing Organization Address City/[facility]/ZIP Co de Phone Number [facility] [address] [place] [address] * (ABNORMAL) CBC (09/26/2024 10:20 AM EDT) WBC 12.0(H) 3.4 - 10.8 x10E3/uL [facility] RBC 4.41 4.14 - 5.80 x10E6/uL [facility] Hemoglobin 13.0 13.0 - 17.7 g/dL [facility] Hematocrit 39.2 37.5 - 51.0 % [facility] MCV 89 79 - 97 fL [facility] MCH 29.5 26.6 - 33.0 pg [facility] MCHC 33.2 31.5 - 35.7 g/dL [facility] RDW 14.5 11.6 - 15.4 % [facility] Platelets 262 150 - 450 x10E3/uL [facility] 09/26/2024 10:2 0 AM EDT 09/26/2024 us Tab Piña MD LAB BLOOD ORDERABLES Final Resul t Performing Organization Address City/[facility]/ZIP Co de Phone Number [facility] [address] [place] [address] * (ABNORMAL) PTH, Intact (09/26/2024 10:20 AM EDT) Only the most recent of2 resultswithin the time period is included. PTH 77(H) 15 - 65 pg/mL [facility] 09/26/2024 10:2 0 AM EDT 09/26/2024 us Tab Piña MD LAB BLOOD ORDERABLES Final Resul t [facility] [address] [place] [address] * (ABNORMAL) Renal Function Panel (09/26/2024 10:20 AM EDT) Only the most recent of2 resultswithin the time period is included. Pathologist [facility] Albumin 3.7(L) 3.9 - 4.9 g/dL [facility] Glucose 122(H) 70 - 99 mg/[facility] BUN 26 8 - 27 mg/dL [facility] Creatinine 2.36(H) 0.76 - 1.27 mg/dL [facility] eGFR CKD-EPI CR 2020 29(L) >59 mL/min/1.7 3 [facility] BUN/Creatinine Ratio 11 10 - 24 [facility] Sodium 139 134 - 144 mmol/L [facility] Potassium 4.0 3.5 - 5.2 mmol/L [facility] Chloride 102 96 - 106 mmol/L [facility] Bicarbonate (CO2) 21 20 - 29 mmol/L [facility] Calcium 9.2 8.6 - 10.2 mg/dL [facility] Phosphorus 2.6(L) 2.8 - 4.1 mg/dL [facility] 09/26/2024 10:2 0 AM EDT 09/26/2024 us Tab Piña MD LAB BLOOD ORDERABLES Final Resul t [facility] [address] [place] [address] from Last 3 Months Insurance Medicaid [place] [facility] 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
--- NOTE | 2024-12-22 18:05 | ECG_ITS ---
Test Reason : FALL Blood Pressure : */* mmHG Vent. Rate : 75 BPM Atrial Rate : 75 BPM P-R Int : 152 ms QRS Dur : 86 ms QT Int : 390 ms P-R-T Axes : 27 -14 2 degrees QTcB Int : 435 ms Normal sinus rhythm Nonspecific ST and T wave abnormality Abnormal ECG When compared with ECG of 13-Apr-2024 19:04, ST now depressed in Anterior leads Nonspecific T wave abnormality now evident in Lateral leads Referred By: Bernard Lopez Electronically Signed By: JULIOCESAR HAILE MD
--- NOTE | 2024-12-22 18:07 | ED.FALL ---
HPI - Fall General Chief Complaint: Fall Stated Complaint: Fell on injured R knee wants to be evaluated Time Seen by Provider: 12/22/24 17:05 Source: patient and EMS Mode of arrival: EMS Limitations: no limitations History of Present Illness ED Provider: DR. Lopez HPI Narrative: 69-year-old male PMHx CAD s/p PCI with stent, HTN, CVA, COPD, s/p right CADEN, bipolar disorder, came in for evaluation after he sustained a mechanical fall, patient was sitting on the couch when he slid off the couch landing on his right knee complaining of right knee pain, no head injury, no LOC, patient is known to take a blood thinner. Patient was seen recently at [facility] for a mechanical fall and he was sent to rehab in [place] and was discharged yesterday. No CP, no SOB, lives home by himself using a walker, VNA 2 hours daily, and also get [employer] few hours daily, no family or friends around. Stated that he was just discharged from rehab and he does not want to go back to rehab. Patient is requesting to be DNR/DNI and wants to signed official paper, MOLST form was filed and copy in the chart. Related Data Home Medications ?Medication ?Instructions ?Recorded ?Confirmed atorvastatin 80 mg tablet 1 tab PO BEDTIME 01/12/21 12/23/24 bupropion HCl 150 mg tablet,12 hr 1 tab PO BID 01/12/21 12/23/24 sustained-release fluoxetine 40 mg capsule 1 cap PO DAILY 01/12/21 12/23/24 trazodone 100 mg tablet 2 tab PO BEDTIME Insomnia 01/12/21 12/23/24 aspirin 81 mg tablet,delayed 1 tab PO DAILY 11/03/21 12/23/24 release omeprazole 20 mg capsule,delayed 20 mg PO DAILY@0630 12/30/23 12/23/24 release amlodipine 2.5 mg tablet 2.5 mg PO DAILY 04/14/24 12/23/24 clopidogrel 75 mg tablet 75 mg PO DAILY 12/23/24 12/23/24 lamotrigine 100 mg tablet 200 mg PO BID 12/23/24 12/23/24 lamotrigine 25 mg tablet 50 mg PO DAILY 12/23/24 12/23/24 metoprolol tartrate 25 mg tablet 25 mg PO DAILY 12/23/24 12/23/24 quetiapine 400 mg tablet,extended 400 mg PO BEDTIME 12/23/24 12/23/24 release 24 hr Previous Rx's ?Medication ?Instructions ?Recorded nitroglycerin 0.4 mg sublingual 0.4 mg sublingual Q5M PRN chest 09/12/22 tablet pain #1 tab blood pressure monitor (Blood #1 ea 01/02/24 Pressure Kit) Allergies Allergy/AdvReac Type Severity Reaction Status Date / Time clozapine (From Clozaril) Allergy Unknown RASH Verified 12/22/24 16:37 hydroxyzine (From VISTARIL) Allergy Unknown UNKNOWN Verified 12/22/24 16:37 menthol (From Antihistamine) Allergy Unknown RASH Verified 12/22/24 16:37 nicotine (Nicotine) Allergy Unknown GUM- MAKES Verified 12/22/24 16:37 SICK TO STOMACH nut - unspecified (nut) Allergy Unknown SWELLING Verified 12/22/24 16:37 From Antihistamine Allergy Unknown RASH Uncoded 04/13/24 19:04 Review of Systems Review of Systems: All other systems are reviewed and are negative Constitutional: Reports as per HPI and Reports no additional constitutional complaints Eyes: Reports as per HPI and Reports no additional eye complaints Reports system reviewed and no additional complaints, except as documented Cardiovascular: Reports as per HPI and Reports no additional cardiovascular complaints Respiratory: Reports as per HPI and Reports no additional respiratory complaints Gastrointestinal: Reports as per HPI and Reports no additional gastrointestinal complaints Genitourinary: Reports no additional female genitourinary complaints Musculoskeletal: Reports no additional musculoskeletal complaints Skin/Breast: Reports system reviewed and no additional complaints, except as docu Psychiatric: Reports no additional psychiatric complaints Endocrine: Reports no additional endocrine complaints Hematologic/Lymphatic: Reports no additional hematologic/lymphatic complaints Allergic/Immunologic: Reports no additional allergic/immunologic complaints Reports system reviewed and no additional complaints, except as documented and Reports Abnormal speech present [facility] Past Medical History Medical History Stage 3b chronic kidney disease Multiple falls CAD (coronary artery disease) Schizoaffective disorder Peripheral arterial disease History of CVA (cerebrovascular accident) Bilateral carotid artery stenosis Stroke due to stenosis of carotid artery Arthritis Myocardial infarct Hypertension Surgical History H/O heart artery stent No significant past surgical history Family History Family History Father Heart disease Social History Social History Household Members: None Housing: Apartment Do you presently have visiting nurse or other home services: Yes Alcohol intake: former Patient Tobacco Use Status: Current everyday Tobacco user Tobacco use type: Cigarette Cigarettes Per Day: 4 Smoked in Last 30 Days: Yes Second Hand Smoke Exposure: No Use of substances other than those prescribed or required for medical reasons: No Advance Directives: Yes Advance Directives on File: Yes Advance Directives Date on File: 01/18/21 Do you have a plan to hurt others: No Plan service: No Physical Exam Vital Signs: Vital Signs: Last Vital Signs Temp 98.5 F 12/23/24 14:55 Pulse 59 12/23/24 14:55 Resp 11 L 12/23/24 14:55 BP 117/53 L 12/23/24 14:55 Pulse Ox 96 12/23/24 14:55 O2 Del Method Room Air 12/23/24 14:55 BMI result Body Mass Index 29.5 Course Course Course Narrative: 12/23/24 0819 OLENA Mazariegos: Physician observation continued, no overnight events reported by nursing. Awaiting PT/cm evaluation. 12/23/24 11:34 OLENA Mazariegos: Notified by JERONIMO Quijano that patient is febrile and hypotensive, meets sepsis criteria. Repeat labs, UA, viral panel, LR @ 30mL/kg, ceftriaxone and acetaminophen ordered, activated as sepsis alert. 12/23/24 1455 OLENA Mazariegos: BP and temp improved with medications and fluids. Admission discussed with Best Santos NP hospitalist who accepts admission to medicine. Reevaluation(s) Reevaluation #1: Labs was reviewed leukocytosis no cough, negative chest x-ray for acute pathology, still waiting for UA. As per patient's wish, MOLST form was signed by the patient to be a DNR/DNI. Start physician observation, PT evaluation and placement accordingly likely to a short-term rehab. Time: 20:33 Medications Administered Generic Name Dose Route Start Last Admin Trade Name Freq PRN Reason Stop Dose Admin Amlodipine Besylate 2.5 mg 12/23/24 10:15 12/23/24 12:04 Amlodipine Besylate 2.5 Mg Tablet PO Not Given DAILY [facility] Protocol Aspirin 81 mg 12/23/24 10:15 12/23/24 12:01 Aspirin Enteric Coated 81 Mg Tablet. PO 81 mg DAILY ZARINA Administration Bupropion HCl 300 mg 12/23/24 11:00 12/23/24 12:01 Bupropion Hcl Xl 300 Mg Tab.Er.24h PO 300 mg DAILY ZARINA Administration Clopidogrel Bisulfate 75 mg 12/23/24 10:15 12/23/24 12:01 Clopidogrel Bisulfate 75 Mg Tablet PO 75 mg DAILY ZARINA Administration Fluoxetine HCl 40 mg 12/23/24 10:15 12/23/24 12:02 Fluoxetine Hcl 20 Mg Capsule PO 40 mg DAILY ZARINA Administration Lamotrigine 50 mg 12/23/24 10:15 12/23/24 12:02 Lamotrigine 25 Mg Tablet PO 50 mg DAILY ZARINA Administration Lamotrigine 200 mg 12/23/24 10:15 12/23/24 12:02 Lamotrigine 100 Mg Tablet PO 200 mg BID ZARINA Administration Metoprolol Tartrate 25 mg 12/23/24 10:15 12/23/24 12:04 Metoprolol Tartrate 25 Mg Tablet PO Not Given DAILY [facility] Protocol Omeprazole 20 mg 12/23/24 10:15 12/23/24 12:01 Omeprazole 20 Mg Capsule. PO 20 mg DAILY@0630 ZARINA Administration Quetiapine Fumarate 200 mg 12/23/24 11:00 12/23/24 12:01 Quetiapine Fumarate 200 Mg Tablet PO 200 mg BID ZARINA Administration Discontinued Medications Generic Name Dose Route Start Last Admin Trade Name Darshan PRN Reason Stop Dose Admin Acetaminophen 975 mg 12/23/24 11:34 12/23/24 11:53 Acetaminophen 325 Mg Tablet PO 12/23/24 11:35 975 mg ONCE ONE Administration Ceftriaxone Sodium 1 gm 12/23/24 11:31 12/23/24 11:53 Ceftriaxone Sodium 1 Gm Vial IVPUSH 12/23/24 11:32 1 gm ONCE ONE Administration Lactated Ringer's 2,880 mls @ 2,880 mls/hr 12/23/24 11:31 12/23/24 14:02 Lr 30 ml/kg infuse over 1 hr (2880 ml) 12/23/24 12:30 Infused IV Infusion .Q1H ONE Medical Decision Making Differential Diagnosis Differential Diagnoses: The differential diagnosis associated with the presentation includes (Medical clearance, UTI, pneumonia, right knee fracture, intracranial pathology.) Admission/Observation Consideration of admission/observation: Escalation of care including admission/observation considered Lab Data MDM Lab Attestation statement: I reviewed the patient's lab results. 12/23/24 11:59 12/23/24 11:59 Labs: Lab Results 12/22/24 12/22/24 12/23/24 Range/Units 18:33 23:32 08:19 WBC 14.4 H (4.8-10.8) X10*3/uL RBC 3.75 L (4.60-5.80) X10*6/uL Hgb 11.1 L (14.0-18.0) g/dl Hct 32.2 L (42.0-52.0) % MCV 85.9 (80.0-98.0) fL MCH 29.6 (27.0-33.0) pg MCHC 34.5 (31.0-36.0) g/dl RDW 14.9 (11.0-16.0) % Plt Count 168 (160-400) X10*3/uL MPV 10.3 (9.4-12.4) fL Immature Gran % (Auto) 0.5 H (0.0-0.4) % Neut % (Auto) 72.7 (45-73) % Lymph % (Auto) 15.7 L (20-40) % [place] % (Auto) 9.4 (2-11) % Eos % (Auto) 1.2 (0-4) % Baso % (Auto) 0.5 (0-2) % Lymph # (Auto) 2.3 (1.2-4.9) X10*3/uL [place] # (Auto) 1.4 H (0.1-1.2) X10*3/uL Eos # (Auto) 0.2 (0.0-0.4) X10*3/uL Baso # (Auto) 0.1 (0.0-0.2) X10*3/uL Abs Immat Gran (auto) 0.07 H (0.00-0.03) X10*3/uL Absolute Neuts (auto) 10.5 H (2.0-8.3) x10*3/uL Absolute Nucleated RBC 0.000 (0.0-0.012) X10*3/uL Nucleated RBC % (auto) 0.0 (0.0-0.2) /100WBC Smear Tech's Comments PT 13.5 H (10.9-12.4) SEC INR 1.2 H (0.9-1.1) Sodium 137 (135-145) mmol/L Potassium 3.4 (3.3-5.1) mmol/L Chloride 106 (96-108) mmol/L Carbon Dioxide 22 (22-29) mmol/L Anion Gap 12 (12-20) BUN 32 H (9-16) mg/dL Creatinine 2.16 H (0.5-1.4) mg/dL Estim Creat Clear Calc 38.6 Estimated GFR 31 POC Glucose 104 (60-115) mg/dL Random Glucose 83 (60-115) mg/dL Lactic Acid (0.5-2.0) mmol/L Calcium 8.2 L D (8.4-10.2) mg/dL Total Bilirubin 0.9 (0.0-1.0) mg/dL Direct Bilirubin 0.3 (0.0-0.5) mg/dL AST 21 (5-37) U/L ALT 20 (0-40) U/L Alkaline Phosphatase 101 (39-117) U/L Troponin I High Sens 11.4 (<3.5-35.0) ng/L B-Natriuretic Peptide 360 H (<100) pg/mL Total Protein 6.4 L (6.5-8.0) g/dL Albumin 3.2 L (3.5-5.0) g/dL Lipase 9 (8-78) U/L Urine Color Dark Yellow Urine Appearance Clear Urine pH 6.0 (5.0-9.0) Ur Specific [place] 1.020 (1.005-1.025) Urine Protein 30 (1+) H (Neg-Trace) mg/dL Urine Glucose (UA) Negative (Negative) mg/dL Urine Ketones Negative (Negative) mg/dL Urine Blood Negative (Negative) Urine Nitrite Negative (Negative) Ur Leukocyte Esterase Trace H (Negative) Urine RBC 0-2 (0-2) /HPF Urine WBC 0-5 (0-5) /HPF Ur Squamous Epith Cells 0-2 (0-2) /HPF Urine Bacteria None Seen (None Seen) Hyaline Casts 0-2 (0-2) /LPF Influenza Type A (PCR) (Negative) Influenza Type B (PCR) (Negative) RSV RNA Qual (PCR) (Negative) SARS-CoV-2 RNA (RT-PCR) (Negative) 12/23/24 12/23/24 Range/Units 11:49 11:59 WBC 13.6 H (4.8-10.8) X10*3/uL RBC 3.54 L (4.60-5.80) X10*6/uL Hgb 10.4 L (14.0-18.0) g/dl Hct 30.6 L (42.0-52.0) % MCV 86.4 (80.0-98.0) fL MCH 29.4 (27.0-33.0) pg MCHC 34.0 (31.0-36.0) g/dl RDW 14.7 (11.0-16.0) % Plt Count 160 (160-400) X10*3/uL MPV 10.6 (9.4-12.4) fL Immature Gran % (Auto) 0.5 H (0.0-0.4) % Neut % (Auto) 72.0 (45-73) % Lymph % (Auto) 14.5 L (20-40) % [place] % (Auto) 11.7 H (2-11) % Eos % (Auto) 0.8 (0-4) % Baso % (Auto) 0.5 (0-2) % Lymph # (Auto) 2.0 (1.2-4.9) X10*3/uL [place] # (Auto) 1.6 H (0.1-1.2) X10*3/uL Eos # (Auto) 0.1 (0.0-0.4) X10*3/uL Baso # (Auto) 0.1 (0.0-0.2) X10*3/uL Abs Immat Gran (auto) 0.07 H (0.00-0.03) X10*3/uL Absolute Neuts (auto) 9.8 H (2.0-8.3) x10*3/uL Absolute Nucleated RBC 0.000 (0.0-0.012) X10*3/uL Nucleated RBC % (auto) 0.0 (0.0-0.2) /100WBC Smear Tech's Comments VERIFIED PT (10.9-12.4) SEC INR (0.9-1.1) Sodium 140 (135-145) mmol/L Potassium 4.0 (3.3-5.1) mmol/L Chloride 108 (96-108) mmol/L Carbon Dioxide 25 (22-29) mmol/L Anion Gap 11 L (12-20) BUN 30 H (9-16) mg/dL Creatinine 2.09 H (0.5-1.4) mg/dL Estim Creat Clear Calc 39.9 Estimated GFR 32 POC Glucose (60-115) mg/dL Random Glucose 96 (60-115) mg/dL Lactic Acid 1.1 (0.5-2.0) mmol/L Calcium 8.2 L (8.4-10.2) mg/dL Total Bilirubin 0.9 (0.0-1.0) mg/dL Direct Bilirubin (0.0-0.5) mg/dL AST 20 (5-37) U/L ALT 13 (0-40) U/L Alkaline Phosphatase 91 (39-117) U/L Troponin I High Sens (<3.5-35.0) ng/L B-Natriuretic Peptide (<100) pg/mL Total Protein 5.8 L (6.5-8.0) g/dL Albumin 3.0 L (3.5-5.0) g/dL Lipase (8-78) U/L Urine Color Dark Yellow Urine Appearance Clear Urine pH 6.0 (5.0-9.0) Ur Specific [place] 1.020 (1.005-1.025) Urine Protein 30 (1+) H (Neg-Trace) mg/dL Urine Glucose (UA) Negative (Negative) mg/dL Urine Ketones Negative (Negative) mg/dL Urine Blood Trace H (Negative) Urine Nitrite Negative (Negative) Ur Leukocyte Esterase Trace H (Negative) Urine RBC 6-10 H (0-2) /HPF Urine WBC 0-5 (0-5) /HPF Ur Squamous Epith Cells 0-2 (0-2) /HPF Urine Bacteria None Seen (None Seen) Hyaline Casts 0-2 (0-2) /LPF Influenza Type A (PCR) NEGATIVE (Negative) Influenza Type B (PCR) NEGATIVE (Negative) RSV RNA Qual (PCR) NEGATIVE (Negative) SARS-CoV-2 RNA (RT-PCR) NEGATIVE (Negative) Independent Interpretation I performed an independent interpretation of an: Plain X-Ray (Right foot/chest/right knee: No acute pathology.) and CT Scan (Head CT: No acute intracranial pathology.) Radiology Impression Discussion of test interpretation with radiology: I have reviewed the radiologist's reading. Critical Care Time Critical Care Time Critical Care Time: Yes Total Critical Care Time: 40 Attestation: OLENA Mazariegos: I have personally provided critical care time exclusive of time spent on separately billable procedures. Time includes review of lab data, radiology results, discussion with consultants, and monitoring for potential decompensation. Intervention performed as documented. Discharge Plan Discharge Clinical Impression: Accident due to mechanical fall without injury, Contusion of knee, right, Leukocytosis Patient Disposition: Admitted As Inpatient
[2024-12-22 18:35] VITALS: BP 120/55; PULSE 75; RESP 18; TEMP 36.7; O2SAT 98
[2024-12-22 18:37] LABS: MANUAL DIFF FLAG NO
[2024-12-22 18:40] LABS: Hematocrit 32.2 % (42.0-52.0); Hemoglobin 11.1 g/dl (14.0-18.0); Imm Gran Abs Auto 0.07 X10*3/uL (0.00-0.03); Imm Gran Pct Auto 0.5 % (0.0-0.4); Lymphocytes Absolute Auto 2.3 X10*3/uL (1.2-4.9); Mean Corpuscular HGB Conc 34.5 g/dl (31.0-36.0); Mean Corpuscular Hemoglobin 29.6 pg (27.0-33.0); Mean Corpuscular Volume 85.9 fL (80.0-98.0); NRBC Abs Auto 0.000 X10*3/uL (0.0-0.012); NRBC Pct Auto 0.0 /100WBC (0.0-0.2); Platelet Count 168 X10*3/uL (160-400); Red Blood Count 3.75 X10*6/uL (4.60-5.80); White Blood Count 14.4 X10*3/uL (4.8-10.8)
[2024-12-22 19:00] LABS: INTERNATIONAL NORM RATIO 1.2 (0.9-1.1); Prothrombin Time 13.5 SEC (10.9-12.4)
[2024-12-22 19:09] LABS: Alanine Aminotransferase 20 U/L (0-40); Albumin Level 3.2 g/dL (3.5-5.0); Alkaline Phosphatase 101 U/L (39-117); Anion Gap 12 (12-20); Aspartate Amino Transferase 21 U/L (5-37); Blood Urea Nitrogen 32 mg/dL (9-16); Calcium 8.2 mg/dL (8.4-10.2); Carbon Dioxide 22 mmol/L (22-29); Chloride 106 mmol/L (96-108); Creatinine Clr Calc Pharmacy 38.6; Estimated Glomerular Filt Rate 31; Lipase 9 U/L (8-78); Potassium 3.4 mmol/L (3.3-5.1); Sodium 137 mmol/L (135-145); Total Protein 6.4 g/dL (6.5-8.0)
[2024-12-22 19:16] LABS: Troponin-I High Sensitivity 11.4 ng/L (<3.5-35.0)
[2024-12-22 19:17] LABS: B Type Natriuretic Peptide 360 pg/mL (<100)
[2024-12-22 20:52] VITALS: BP 110/48; PULSE 73; RESP 16; TEMP 37.2; O2SAT 97
[2024-12-22 23:25] VITALS: BP 107/59; PULSE 79; RESP 19; TEMP 37.4; O2SAT 98
[2024-12-22 23:41] LABS: Appearance Urine Clear; Glucose Urine UA Negative (Negative); PH 6.0 (5.0-9.0); Specific Gravity - Urine 1.020 (1.005-1.025); UMIC TRIGGER UACC YES
[2024-12-23] VITALS (15 sets, daily range): BP systolic 74–154; BP diastolic 36–78; PULSE 59–84; RESP 10–20; TEMP 36.9–38.5; O2SAT 94–98; BMI 30.3
--- NOTE | 2024-12-23 08:13 | PC.NURSE ---
pt is alert and oriented, skin pwd, respirations even and unlabored, pt has old bruises all over his lower extremities, having multiple falls at home, reporting right knee pain 06/03, pt moved into a hospital a bed for comfort and male [place] in place called pharmacy to do med/rec pt states he does not know his medications because he has a nurse that comes to the house and dispenses the medications
[2024-12-23 08:23] LABS: Glucose, Whole Blood 104 mg/dL (60-115)
--- NOTE | 2024-12-23 09:19 | PHA.MEDREC ---
Pharmacy Consult ? Medication Reconciliation Pharmacy has completed the medication reconciliation. Pt is poor historian and only knows that he has visiting nurse coming to give him medications. He doesn't have contact information for that person so utilized claims history and medical records to complete med rec.
[2024-12-23 11:59] LABS: Appearance Urine Clear; Glucose Urine UA Negative (Negative); PH 6.0 (5.0-9.0); Specific Gravity - Urine 1.020 (1.005-1.025); UMIC TRIGGER UACC YES
[2024-12-23] MEDS: Aspirin Enteric Coated 81 MG TABLET.DR PO (12:01)
[2024-12-23] MEDS: buPROPion HCl XL 300 MG TAB.ER.24H PO (12:01)
[2024-12-23 12:06] LABS: Hemoglobin 10.4 g/dl (14.0-18.0); Imm Gran Abs Auto 0.07 X10*3/uL (0.00-0.03); Imm Gran Pct Auto 0.5 % (0.0-0.4); Lymphocytes Absolute Auto 2.0 X10*3/uL (1.2-4.9); MANUAL DIFF FLAG SCAN; Mean Corpuscular HGB Conc 34.0 g/dl (31.0-36.0); Mean Corpuscular Hemoglobin 29.4 pg (27.0-33.0); Mean Corpuscular Volume 86.4 fL (80.0-98.0); NRBC Abs Auto 0.000 X10*3/uL (0.0-0.012); NRBC Pct Auto 0.0 /100WBC (0.0-0.2); Platelet Count 160 X10*3/uL (160-400); Red Blood Count 3.54 X10*6/uL (4.60-5.80); SCAN SMEAR FLAG 1; White Blood Count 13.6 X10*3/uL (4.8-10.8)
[2024-12-23 12:08] LABS: Hematocrit 30.6 % (42.0-52.0)
--- NOTE | 2024-12-23 12:15 | PC.NURSE ---
this rn was updating the pt's vs and found the pt to hypotensive, very warm to the touch, rectal temp taken and 101.3, so notified and sepsis was called
[2024-12-23 12:20] LABS: Alanine Aminotransferase 13 U/L (0-40); Albumin Level 3.0 g/dL (3.5-5.0); Alkaline Phosphatase 91 U/L (39-117); Anion Gap 11 (12-20); Aspartate Amino Transferase 20 U/L (5-37); Blood Urea Nitrogen 30 mg/dL (9-16); Calcium 8.2 mg/dL (8.4-10.2); Carbon Dioxide 25 mmol/L (22-29); Chloride 108 mmol/L (96-108); Creatinine Clr Calc Pharmacy 39.9; Estimated Glomerular Filt Rate 32; Potassium 4.0 mmol/L (3.3-5.1); Sodium 140 mmol/L (135-145); Total Protein 5.8 g/dL (6.5-8.0)
[2024-12-23 12:47] LABS: Resp Syncy Virus RNA Qual PCR NEGATIVE (Negative); SARS COV2 PCR INHOUSE NEGATIVE (Negative)
--- NOTE | 2024-12-23 15:12 | P.HPHOSP_ITS ---
History of Present Illness Date of Service: 12/23/24 Attending physician on admission: Jayy Crisostomo Chief Complaint: Fall at home Pt is a 69-year-old male with a PMH significant for?CAD s/p PCI with stenting, AAA s/p EVAR 02/2025, right carotid stenosis s/p TCAR 07/2024, HTN, CVA, COPD, GERD, and bipolar disorder who initially presented to the ED yesterday after fall at home. Previously had fall at home on 11/15/24 and was seen at [facility] where he was discharged to rehab at [facility]; was discharged from there on 12/21. Pt reports he fell at home that night at approximately 1:00 when he slid off of his couch. Workup in the ED was initially unremarkable except for leukocytosis; no significant electrolyte abnormalities; renal and hepatic function WNL; right foot and knee x-rays negative; CTA of head negative for acute intracranial findings, though showed atrophy and chronic infarcts; and CXR negative for acute findings. Pt was initially placed in physician observation under PT/CM while awaiting placement. However earlier this morning pt met sepsis criteria with fever of 101.3, leukocytosis, and pt also became hypotensive as low as 74/36. Lactic acid WNL. Pt was given sepsis bolus fluids and started on broad-spectrum antibiotics. Blood cultures obtained. BP responded well to therapies. Pt seen and evaluated where he appears weak and frail, somnolent but arousable. Pt overall is a poor historian: realizes he is in a hospital but unsure which one, though oriented to date. Does not remember why he came to the hospital yesterday. Offers no significant complaints. No headache or neck pain. Denies nausea, vomiting, abdominal pain. No chest pain pressure. Denies shortness or breath or difficulty breathing. Denies cough. No diarrhea. Pt will be brought to the hospital floor for meeting SIRS criteria of unclear etiology. Review of Systems 2 Review of Systems: Negative except for that which is stated in the HPI. [facility] Medical History Stage 3b chronic kidney disease Multiple falls CAD (coronary artery disease) Schizoaffective disorder Peripheral arterial disease History of CVA (cerebrovascular accident) Bilateral carotid artery stenosis Stroke due to stenosis of carotid artery Arthritis Myocardial infarct Hypertension Family History Father Heart disease Surgical History H/O heart artery stent No significant past surgical history Social History Household Members: None Housing: Apartment Do you presently have visiting nurse or other home services: Yes Alcohol intake: former Patient Tobacco Use Status: Current everyday Tobacco user Tobacco use type: Cigarette Cigarettes Per Day: 4 Smoked in Last 30 Days: Yes Second Hand Smoke Exposure: No Use of substances other than those prescribed or required for medical reasons: No Advance Directives: Yes Advance Directives on File: Yes Advance Directives Date on File: 01/18/21 Do you have a plan to hurt others: No Plan service: No Meds Allergies Allergy/AdvReac Type Severity Reaction Status Date / Time clozapine (From Clozaril) Allergy Unknown RASH Verified 12/22/24 16:37 hydroxyzine (From VISTARIL) Allergy Unknown UNKNOWN Verified 12/22/24 16:37 menthol (From Antihistamine) Allergy Unknown RASH Verified 12/22/24 16:37 nicotine (Nicotine) Allergy Unknown GUM- MAKES Verified 12/22/24 16:37 SICK TO STOMACH nut - unspecified (nut) Allergy Unknown SWELLING Verified 12/22/24 16:37 From Antihistamine Allergy Unknown RASH Uncoded 04/13/24 19:04 Active Medications: Current Medications Amlodipine Besylate (Amlodipine Besylate 2.5 Mg Tablet) 2.5 mg PO DAILY [facility]; Protocol Last Admin: 12/23/24 12:04 Dose: Not Given Aspirin (Aspirin Enteric Coated 81 Mg Tablet.Dr) 81 mg PO DAILY [facility] Last Admin: 12/23/24 12:01 Dose: 81 mg Atorvastatin Calcium (Atorvastatin Calcium 80 Mg Tablet) 80 mg PO BEDTIME [facility] Bupropion HCl (Bupropion Hcl Xl 300 Mg Tab.Er.24h) 300 mg PO DAILY [facility] Last Admin: 12/23/24 12:01 Dose: 300 mg Clopidogrel Bisulfate (Clopidogrel Bisulfate 75 Mg Tablet) 75 mg PO DAILY [facility] Last Admin: 12/23/24 12:01 Dose: 75 mg Fluoxetine HCl (Fluoxetine Hcl 20 Mg Capsule) 40 mg PO DAILY [facility] Last Admin: 12/23/24 12:02 Dose: 40 mg Lamotrigine (Lamotrigine 25 Mg Tablet) 50 mg PO DAILY [facility] Last Admin: 12/23/24 12:02 Dose: 50 mg Lamotrigine (Lamotrigine 100 Mg Tablet) 200 mg PO BID [facility] Last Admin: 12/23/24 12:02 Dose: 200 mg Metoprolol Tartrate (Metoprolol Tartrate 25 Mg Tablet) 25 mg PO DAILY [facility]; Protocol Last Admin: 12/23/24 12:04 Dose: Not Given Nitroglycerin (Nitroglycerin 0.4 Mg Tab.Subl) 0.4 mg SUBLINGUAL Q5M PRN PRN Reason: Chest Pain Omeprazole (Omeprazole 20 Mg Capsule.Dr) 20 mg PO DAILY@0630 [facility] Last Admin: 12/23/24 12:01 Dose: 20 mg Quetiapine Fumarate (Quetiapine Fumarate 200 Mg Tablet) 200 mg PO BID [facility] Last Admin: 12/23/24 12:01 Dose: 200 mg Trazodone HCl (Trazodone Hcl 100 Mg Tablet) 200 mg PO BEDTIME [facility] Home Medications ?Medication ?Instructions ?Recorded ?Confirmed ?Last Taken ?Type atorvastatin 80 mg tablet 1 tab PO BEDTIME 01/12/2112/29/23 History bupropion HCl 150 mg tablet,12 hr 1 tab PO BID 1 12/23/24 12/29/23 History sustained-release fluoxetine 40 mg capsule 1 cap PO DAILY 01/12/2105/1812/29/23 History trazodone 100 mg tablet 2 tab PO BEDTIME Insomnia 12/23/24 12/29/23 History aspirin 81 mg tablet,delayed 1 tab PO DAILY 11/03/21 0 12/23/24 12/29/23 History release omeprazole 20 mg capsule,delayed 20 mg PO DAILY@0630 0 12/30/23 12/23/24 12/29/23 History release amlodipine 2.5 mg tablet 2.5 mg PO DAILY 04/14/2405/18 Unknown History clopidogrel 75 mg tablet 75 mg PO DAILY 12/23/2405/18 Unknown History lamotrigine 100 mg tablet 200 mg PO BID 12/23/2412/23 Unknown History lamotrigine 25 mg tablet 50 mg PO DAILY 12/23/2405/18 Unknown History metoprolol tartrate 25 mg tablet 25 mg PO DAILY 12/23/24 Unknown History quetiapine 400 mg tablet,extended 400 mg PO BEDTIME 12/23/24 Unknown History release 24 hr Physical Exam 2 Vital Signs and Narrative: Vital Signs: Last Vital Signs Temp 98.7 F 12/23/24 14:29 Pulse 67 12/23/24 14:29 Resp 10 L 12/23/24 14:29 BP 146/67 H 12/23/24 14:29 Pulse Ox 95 12/23/24 14:29 O2 Del Method Room Air 12/23/24 14:29 BMI result Body Mass Index 29.5 General: AOx, not oriented to specific place or situation. In no acute distress. Appears weak and frail. Resp: CTA bilaterally CVS: S1, S2, RRR GI: +BS, NT, no distention Skin: Warm, dry. Areas of ecchymosis on abdomen. Mild abrasions and bruising on left elbow and right knee. No signs of cellulitis. Neuro: Cranial nerves II-XII grossly intact bilaterally. Motor grossly intact bilaterally Extremities: No edema Psych: Somnolent but answering appropriately. Calm, cooperative Results Labs 12/23/24 11:59 12/23/24 11:59 Labs: Laboratory Results - last 24 hr 12/22/24 12/22/24 12/23/24 18:33 23:32 08:19 MCV 85.9 MCH 29.6 MCHC 34.5 RDW 14.9 Plt Count 168 MPV 10.3 Immature Gran % (Auto) 0.5 H Neut % (Auto) 72.7 Lymph % (Auto) 15.7 L [place] % (Auto) 9.4 Eos % (Auto) 1.2 Baso % (Auto) 0.5 Lymph # (Auto) 2.3 [place] # (Auto) 1.4 H Eos # (Auto) 0.2 Baso # (Auto) 0.1 Abs Immat Gran (auto) 0.07 H Absolute Neuts (auto) 10.5 H Absolute Nucleated RBC 0.000 Nucleated RBC % (auto) 0.0 Smear Tech's Comments PT 13.5 H INR 1.2 H Anion Gap 12 Estim Creat Clear Calc 38.6 Estimated GFR 31 POC Glucose 104 Random Glucose 83 Lactic Acid Calcium 8.2 L D Total Bilirubin 0.9 Direct Bilirubin 0.3 AST 21 ALT 20 Alkaline Phosphatase 101 B-Natriuretic Peptide 360 H Total Protein 6.4 L Albumin 3.2 L Lipase 9 Urine Color Dark Yellow Urine Appearance Clear Urine pH 6.0 Ur Specific [place] 1.020 Urine Protein 30 (1+) H Urine Glucose (UA) Negative Urine Ketones Negative Urine Blood Negative Urine Nitrite Negative Ur Leukocyte Esterase Trace H Urine RBC 0-2 Urine WBC 0-5 Ur Squamous Epith Cells 0-2 Urine Bacteria None Seen Hyaline Casts 0-2 Influenza Type A (PCR) Influenza Type B (PCR) RSV RNA Qual (PCR) SARS-CoV-2 RNA (RT-PCR) 12/23/24 12/23/24 11:49 11:59 MCV 86.4 MCH 29.4 MCHC 34.0 RDW 14.7 Plt Count 160 MPV 10.6 Immature Gran % (Auto) 0.5 H Neut % (Auto) 72.0 Lymph % (Auto) 14.5 L [place] % (Auto) 11.7 H Eos % (Auto) 0.8 Baso % (Auto) 0.5 Lymph # (Auto) 2.0 [place] # (Auto) 1.6 H Eos # (Auto) 0.1 Baso # (Auto) 0.1 Abs Immat Gran (auto) 0.07 H Absolute Neuts (auto) 9.8 H Absolute Nucleated RBC 0.000 Nucleated RBC % (auto) 0.0 Smear Tech's Comments VERIFIED PT INR Anion Gap 11 L Estim Creat Clear Calc 39.9 Estimated GFR 32 POC Glucose Random Glucose 96 Lactic Acid 1.1 Calcium 8.2 L Total Bilirubin 0.9 Direct Bilirubin AST 20 ALT 13 Alkaline Phosphatase 91 B-Natriuretic Peptide Total Protein 5.8 L Albumin 3.0 L Lipase Urine Color Dark Yellow Urine Appearance Clear Urine pH 6.0 Ur Specific [place] 1.020 Urine Protein 30 (1+) H Urine Glucose (UA) Negative Urine Ketones Negative Urine Blood Trace H Urine Nitrite Negative Ur Leukocyte Esterase Trace H Urine RBC 6-10 H Urine WBC 0-5 Ur Squamous Epith Cells 0-2 Urine Bacteria None Seen Hyaline Casts 0-2 Influenza Type A (PCR) NEGATIVE Influenza Type B (PCR) NEGATIVE RSV RNA Qual (PCR) NEGATIVE SARS-CoV-2 RNA (RT-PCR) NEGATIVE Assessment and Plan (1) SIRS (systemic inflammatory response syndrome): Status: Acute Plan Pt is a 69-year-old male with a PMH significant for?CAD s/p PCI with stenting, AAA s/p EVAR 02/2025, right carotid stenosis s/p TCAR 07/2024, HTN, CVA, COPD, GERD, and bipolar disorder who initially presented to the ED yesterday after fall at home. Pt is admitted to the hospital for treatment and further evaluation of meeting SIRS criteria of unclear etiology. SIRS of unclear etiology Pt initially admitted to physician obs PT/CM in the ED after mechanical fall at home and awaiting placement Pt subsequently met SIRS criteria with fever of 101.3, leukocytosis of 13.6, and hypotension as low as 74/36 Was given sepsis bolus fluids, started on broad-spectrum antibiotics, and blood cultures drawn Unclear source: CT of head negative; CXR negative; UA negative; no clear cellulitis; no meningeal signs Continue ceftriaxone, started 12/23/[address] of a/p to complete workup Follow BCx Mechanical fall at home Imaging negative for acute injury PT evaluation for likely STR/LTC placement CAD s/p PCI with stenting Continue aspirin, Plavix, statin, prn nitroglycerin AAA s/p EVAR 02/2025 at [facility] Right carotid artery stenosis s/p TCAR 07/2024 at [facility] HTN Hold antihypertensives for now given hypotension Resume as warranted GERD Continue omeprazole Mood disorder Continue bupropion, lamotrigine, quetiapine DNR/DNI, verified with [facility] and pt Attending:?Dr. Crisostomo DVT Prophylaxis: Lovenox Pt will require a hospitalization of at least two nights for treatment evaluation of meeting SIRS criteria of unclear etiology. Pt will require hospital level cares for administration of IV antibiotics while awaiting blood cultures. Quality Stroke Does the patient have a stroke diagnosis?: No VTE Prior VTE?: No VTE Risk Level:: Medical - moderate - high VTE Device Contraindication: Treatment Not Indicated VTE Drug Contraindication: N/A - Med Ordered
[2024-12-23 17:19] LABS: Glucose, Whole Blood 89 mg/dL (60-115)
--- NOTE | 2024-12-23 17:35 | PC.NURSE ---
pt given avis marcus and pudding because poc is 89
[2024-12-23 18:06] LABS: Glucose, Whole Blood 95 mg/dL (60-115)
--- NOTE | 2024-12-23 18:29 | PC.NURSE ---
report given to cassandra cook in overflow
[2024-12-24 03:37] VITALS: BP 108/71; PULSE 70; RESP 18; TEMP 37.1; O2SAT 97
[2024-12-24 06:56] LABS: Hematocrit 28.5 % (42.0-52.0); Hemoglobin 9.7 g/dl (14.0-18.0); Mean Corpuscular HGB Conc 34.0 g/dl (31.0-36.0); Mean Corpuscular Hemoglobin 29.5 pg (27.0-33.0); Mean Corpuscular Volume 86.6 fL (80.0-98.0); NRBC Abs Auto 0.000 X10*3/uL (0.0-0.012); NRBC Pct Auto 0.0 /100WBC (0.0-0.2); Platelet Count 160 X10*3/uL (160-400); Red Blood Count 3.29 X10*6/uL (4.60-5.80); White Blood Count 9.2 X10*3/uL (4.8-10.8)
[2024-12-24 07:14] LABS: Alanine Aminotransferase 9 U/L (0-40); Albumin Level 2.6 g/dL (3.5-5.0); Alkaline Phosphatase 82 U/L (39-117); Anion Gap 11 (12-20); Aspartate Amino Transferase 18 U/L (5-37); Blood Urea Nitrogen 24 mg/dL (9-16); Calcium 8.0 mg/dL (8.4-10.2); Carbon Dioxide 23 mmol/L (22-29); Chloride 110 mmol/L (96-108); Creatinine Clr Calc Pharmacy 46.4; Estimated Glomerular Filt Rate 37; Potassium 3.5 mmol/L (3.3-5.1); Sodium 140 mmol/L (135-145); Total Protein 5.5 g/dL (6.5-8.0)
[2024-12-24 07:36] VITALS: BP 139/72; PULSE 73; RESP 18; TEMP 37.4; O2SAT 97
[2024-12-24] MEDS: buPROPion HCl XL 300 MG TAB.ER.24H PO (08:13)
[2024-12-24] MEDS: Aspirin Enteric Coated 81 MG TABLET.DR PO (08:14)
[2024-12-24 09:12] LABS: Chlamydia pneumoniae PCR Not Detected (Not Detect.); Coronavirus 229E PCR Not Detected (Not Detect.); Coronavirus HKU1 PCR Not Detected (Not Detect.); Coronavirus NL63 PCR Not Detected (Not Detect.); Coronavirus OC43 PCR Not Detected (Not Detect.); RSV PCR Not Detected (Not Detect.); Rhino/Enterovirus PCR Not Detected (Not Detect.)
--- NOTE | 2024-12-24 09:18 | HO.PM.IMPN ---
Subjective Subjective Date of Service: 12/24/24 Interval History: no complaints Physical Exam Exam: Exam: alert oriented to person only lungs clear, abd soft non tender, no rash Vital Signs: Vital Signs: Last Vital Signs Temp 99.4 F 12/24/24 07:36 Pulse 73 12/24/24 07:36 Resp 18 12/24/24 07:36 BP 139/72 12/24/24 07:36 Pulse Ox 97 12/24/24 07:36 O2 Del Method Room Air 12/24/24 07:36 BMI result Body Mass Index 30.3 Objective Data Active Medications Acetaminophen (Acetaminophen 325 Mg Tablet) 975 mg PO Q6H PRN PRN Reason: Pain, Mild 1-3,fever,headache Last Admin: 12/23/24 23:03 Dose: 975 mg Documented By: YAIMA Amlodipine Besylate (Amlodipine Besylate 2.5 Mg Tablet) 2.5 mg PO DAILY [facility]; Protocol Last Admin: 12/24/24 08:13 Dose: 2.5 mg Documented By: JINNY Aspirin (Aspirin Enteric Coated 81 Mg Tablet.Dr) 81 mg PO DAILY [facility] Last Admin: 12/24/24 08:14 Dose: 81 mg Documented By: JINNY Atorvastatin Calcium (Atorvastatin Calcium 80 Mg Tablet) 80 mg PO BEDTIME [facility] Last Admin: 12/23/24 22:18 Dose: 80 mg Documented By: YAIMA Bupropion HCl (Bupropion Hcl Xl 300 Mg Tab.Er.24h) 300 mg PO DAILY [facility] Last Admin: 12/24/24 08:13 Dose: 300 mg Documented By: JINNY Ceftriaxone Sodium (Ceftriaxone Sodium 1 Gm Vial) 1 gm IVPUSH Q24H [facility] Clopidogrel Bisulfate (Clopidogrel Bisulfate 75 Mg Tablet) 75 mg PO DAILY [facility] Last Admin: 12/24/24 08:13 Dose: 75 mg Documented By: JINNY Enoxaparin Sodium (Enoxaparin Sodium 40 Mg/0.4 Ml Syringe) 40 mg SUBCUT Q24H [facility] Last Admin: 12/23/24 17:09 Dose: 40 mg Documented By: HEIDI Fluoxetine HCl (Fluoxetine Hcl 20 Mg Capsule) 40 mg PO DAILY [facility] Last Admin: 12/24/24 08:13 Dose: 40 mg Documented By: JINNY Lamotrigine (Lamotrigine 25 Mg Tablet) 50 mg PO DAILY [facility] Last Admin: 12/24/24 08:13 Dose: 50 mg Documented By: JINNY Lamotrigine (Lamotrigine 100 Mg Tablet) 200 mg PO BID [facility] Last Admin: 12/24/24 08:13 Dose: 200 mg Documented By: JINNY Metoprolol Tartrate (Metoprolol Tartrate 25 Mg Tablet) 25 mg PO DAILY [facility]; Protocol Last Admin: 12/24/24 08:14 Dose: 25 mg Documented By: JINNY Nitroglycerin (Nitroglycerin 0.4 Mg Tab.Subl) 0.4 mg SUBLINGUAL Q5M PRN PRN Reason: Chest Pain Nystatin (Nystatin Powder 15 Gm Bottle) 1 appl TOPICAL BID [facility]; Protocol Last Admin: 12/24/24 08:17 Dose: 1 appl Documented By: JINNY Omeprazole (Omeprazole 20 Mg Capsule.Dr) 20 mg PO DAILY@0630 [facility] Last Admin: 12/24/24 06:11 Dose: 20 mg Documented By: YAIMA Quetiapine Fumarate (Quetiapine Fumarate 200 Mg Tablet) 200 mg PO BID [facility] Last Admin: 12/24/24 08:13 Dose: 200 mg Documented By: JINNY Trazodone HCl (Trazodone Hcl 100 Mg Tablet) 200 mg PO BEDTIME [facility] Last Admin: 12/23/24 22:18 Dose: 200 mg Documented By: YAIMA Labs 12/24/24 05:48 12/24/24 05:48 Labs: Laboratory Results - last 24 hr 12/23/24 12/23/24 12/23/24 11:49 11:59 17:14 MCV 86.4 MCH 29.4 MCHC 34.0 RDW 14.7 Plt Count 160 MPV 10.6 Immature Gran % (Auto) 0.5 H Neut % (Auto) 72.0 Lymph % (Auto) 14.5 L [place] % (Auto) 11.7 H Eos % (Auto) 0.8 Baso % (Auto) 0.5 Lymph # (Auto) 2.0 [place] # (Auto) 1.6 H Eos # (Auto) 0.1 Baso # (Auto) 0.1 Abs Immat Gran (auto) 0.07 H Absolute Neuts (auto) 9.8 H Absolute Nucleated RBC 0.000 Nucleated RBC % (auto) 0.0 Smear Tech's Comments VERIFIED Anion Gap 11 L Estim Creat Clear Calc 39.9 Estimated GFR 32 POC Glucose 89 Random Glucose 96 Lactic Acid 1.1 Calcium 8.2 L Total Bilirubin 0.9 AST 20 ALT 13 Alkaline Phosphatase 91 Total Protein 5.8 L Albumin 3.0 L Urine Color Dark Yellow Urine Appearance Clear Urine pH 6.0 Ur Specific [place] 1.020 Urine Protein 30 (1+) H Urine Glucose (UA) Negative Urine Ketones Negative Urine Blood Trace H Urine Nitrite Negative Ur Leukocyte Esterase Trace H Urine RBC 6-10 H Urine WBC 0-5 Ur Squamous Epith Cells 0-2 Urine Bacteria None Seen Hyaline Casts 0-2 Influenza Type A (PCR) NEGATIVE Influenza Type B (PCR) NEGATIVE RSV RNA Qual (PCR) NEGATIVE SARS-CoV-2 RNA (RT-PCR) NEGATIVE 12/23/24 12/24/24 18:03 05:48 MCV 86.6 MCH 29.5 MCHC 34.0 RDW 15.0 Plt Count 160 MPV 10.8 Immature Gran % (Auto) Neut % (Auto) Lymph % (Auto) [place] % (Auto) Eos % (Auto) Baso % (Auto) Lymph # (Auto) [place] # (Auto) Eos # (Auto) Baso # (Auto) Abs Immat Gran (auto) Absolute Neuts (auto) Absolute Nucleated RBC 0.000 Nucleated RBC % (auto) 0.0 Smear Tech's Comments Anion Gap 11 L Estim Creat Clear Calc 46.4 Estimated GFR 37 POC Glucose 95 Random Glucose 85 Lactic Acid Calcium 8.0 L Total Bilirubin 0.6 AST 18 ALT 9 Alkaline Phosphatase 82 Total Protein 5.5 L Albumin 2.6 L Urine Color Urine Appearance Urine pH Ur Specific [place] Urine Protein Urine Glucose (UA) Urine Ketones Urine Blood Urine Nitrite Ur Leukocyte Esterase Urine RBC Urine WBC Ur Squamous Epith Cells Urine Bacteria Hyaline Casts Influenza Type A (PCR) Influenza Type B (PCR) RSV RNA Qual (PCR) SARS-CoV-2 RNA (RT-PCR) Assessment and Plan (1) SIRS (systemic inflammatory response syndrome): Status: Acute Plan 69M PMH CAD s/p stent, AAA s/p EVAR, right carotid stenosis s/p TCAR 07/2024, HTN, CVA, COPD, GERD, bipolar presented with fall 12/22/24, on 12/23/24 became febrile and hypotensive, admitted to medicine SIRS no clear source negative ua, cxr, ct abd no obvious rash conitnue empiric ceftriaxone, follow up cultures mechanical fall - likely STR on discharge cad dapl, statin AAA s/p EVAR right carotid stenosis s/p TCAR mood disorder buproprion, lamotrigine, quetiapine HTN meds on hold for hypotension dvt prophylaxis - lovenox DNR/DNI reason for continued hospitalization:monitor fevers, culture Quality Stroke Does the patient have a stroke diagnosis?: No VTE Prior VTE?: No VTE Risk Level:: Medical - moderate - high VTE Device Contraindication: Treatment Not Indicated VTE Drug Contraindication: N/A - Med Ordered
[2024-12-24 09:43] LABS: SARS-CoV-2 PCR Not Detected (Not Detect.)
[2024-12-24 09:44] LABS: Influenza A H1 PCR Not Detected (Not Detect.); Influenza A H1-2009 PCR Not Detected (Not Detect.); Influenza A H3 PCR Not Detected (Not Detect.)
--- NOTE | 2024-12-24 11:24 | MHC.CM.PN ---
Addendum entered by Esme Hartman 12/24/24 14:50: CORRECTION: PT IS NO LONGER ACTIVE WITH [facility]. CALL OUT TO [facility] S[employer]DER [employer] TO FILL IN THE NEEDED INFORMATION. DP: [facility] HAS OFFERED A BED PENDING AUTH WHEN MEDICALLY CLEARED. PT IS ACCEPTING OF THE BED OFFER. Original Note: [facility] DELIVERED PT LIVES ALONE AND USES [facility] FOR MOBILITY. PT STATES HE HAS A MODIFIED BR WITH [employer]. PT IS ACTIVE WITH [facility] FOR DAILY [facility] AND IS CONNECTED TO [facility]. [employer]ATION [employer]MIST [employer] ([phone]). + HCP ON FILE AND VERIFIED. PCP DR. COTTRELL DP: P.T. HAS RECOMMENDED STR AND PT IS AGREEABLE TO A REFERRAL BACK TO [facility] [place] [facility]. SECOND CHOICE IS [facility]. PT WILL NEED BLS TRANSPORT. CM WILL CONTINUE TO FOLLOW FOR ANY CHANGE TO DC PLAN/NEEDS.
[2024-12-24 15:10] VITALS: BP 107/58; PULSE 69; RESP 16; TEMP 36.6; O2SAT 95
[2024-12-24 19:02] VITALS: BP 88/66; PULSE 65; RESP 18; TEMP 37.1; O2SAT 94
[2024-12-24] MEDS: Lactated Ringers 1,000 ML 999 ML IV (19:21)
[2024-12-24 20:25] VITALS: BP 113/57; PULSE 65
--- NOTE | 2024-12-24 23:11 | PC.NURSE ---
At 19:02 pt BP was 88/66 MD Baudilio Echevarria notified and she ordered LR bolus at 999 mLs/hr and a dose of midrodrine. Pt was not expereincing any other symptoms with the low blood pressure. All other vital signs were WNL. After fluids were infused, the patient's BP was 113/57 at 20:25.
[2024-12-25 00:37] VITALS: BP 118/59; PULSE 67; RESP 18; TEMP 36.8; O2SAT 95
[2024-12-25 03:28] VITALS: BP 135/72; PULSE 66; RESP 18; TEMP 36.9; O2SAT 94
[2024-12-25 06:43] LABS: Hematocrit 29.2 % (42.0-52.0); Hemoglobin 9.6 g/dl (14.0-18.0); Mean Corpuscular HGB Conc 32.9 g/dl (31.0-36.0); Mean Corpuscular Hemoglobin 29.6 pg (27.0-33.0); Mean Corpuscular Volume 90.1 fL (80.0-98.0); NRBC Abs Auto 0.000 X10*3/uL (0.0-0.012); NRBC Pct Auto 0.0 /100WBC (0.0-0.2); Platelet Count 182 X10*3/uL (160-400); Red Blood Count 3.24 X10*6/uL (4.60-5.80); White Blood Count 9.2 X10*3/uL (4.8-10.8)
[2024-12-25 06:59] LABS: Alanine Aminotransferase 12 U/L (0-40); Albumin Level 2.8 g/dL (3.5-5.0); Alkaline Phosphatase 91 U/L (39-117); Anion Gap 12 (12-20); Aspartate Amino Transferase 21 U/L (5-37); Blood Urea Nitrogen 20 mg/dL (9-16); Calcium 8.1 mg/dL (8.4-10.2); Carbon Dioxide 21 mmol/L (22-29); Chloride 110 mmol/L (96-108); Creatinine Clr Calc Pharmacy 44.2; Estimated Glomerular Filt Rate 35; Magnesium 1.6 mg/dL (1.6-2.6); Potassium 3.7 mmol/L (3.3-5.1); Sodium 139 mmol/L (135-145); Total Protein 5.8 g/dL (6.5-8.0)
[2024-12-25 07:17] VITALS: BP 127/70; PULSE 70; RESP 20; TEMP 37.3; O2SAT 94
[2024-12-25] MEDS: buPROPion HCl XL 300 MG TAB.ER.24H PO (08:57)
[2024-12-25] MEDS: Aspirin Enteric Coated 81 MG TABLET.DR PO (08:57)
--- NOTE | 2024-12-25 10:53 | MHC.CM.PN ---
Per MD rounds not medically cleared for dc at this time, awaiting ID eval, ? later today vs tomorrow. [facility] updated and will initiate auth.
[2024-12-25 15:10] VITALS: BP 129/67; PULSE 57; RESP 20; TEMP 36.6; O2SAT 97
--- NOTE | 2024-12-25 17:11 | HO.PM.IMPN ---
Subjective Subjective Date of Service: 12/25/24 Interval History: no complaints Review of Systems Review of Systems: Yes all other systems are reviewed and are negative Physical Exam Exam: Exam: alert oriented to person only lungs clear, abd soft non tender, no rash Vital Signs: Vital Signs: Last Vital Signs Temp 97.8 F 12/25/24 15:10 Pulse 57 12/25/24 15:10 Resp 20 12/25/24 15:10 BP 129/67 12/25/24 15:10 Pulse Ox 97 12/25/24 15:10 O2 Del Method Room Air 12/25/24 15:10 BMI result Body Mass Index 30.3 Objective Data Active Medications Acetaminophen (Acetaminophen 325 Mg Tablet) 975 mg PO Q6H PRN PRN Reason: Pain, Mild 1-3,fever,headache Last Admin: 12/24/24 16:24 Dose: 975 mg Documented By: JINNY Amlodipine Besylate (Amlodipine Besylate 2.5 Mg Tablet) 2.5 mg PO DAILY [facility]; Protocol Last Admin: 12/25/24 08:57 Dose: 2.5 mg Documented By: ANITRA Aspirin (Aspirin Enteric Coated 81 Mg Tablet.) 81 mg PO DAILY [facility] Last Admin: 12/25/24 08:57 Dose: 81 mg Documented By: ANITRA Atorvastatin Calcium (Atorvastatin Calcium 80 Mg Tablet) 80 mg PO BEDTIME [facility] Last Admin: 12/24/24 20:09 Dose: 80 mg Documented By: YESI Bupropion HCl (Bupropion Hcl Xl 300 Mg Tab.Er.24h) 300 mg PO DAILY [facility] Last Admin: 12/25/24 08:57 Dose: 300 mg Documented By: ANITRA Ceftriaxone Sodium (Ceftriaxone Sodium 1 Gm Vial) 1 gm IVPUSH Q24H [facility] Last Admin: 12/25/24 12:51 Dose: 1 gm Documented By: ANITRA Clopidogrel Bisulfate (Clopidogrel Bisulfate 75 Mg Tablet) 75 mg PO DAILY [facility] Last Admin: 12/25/24 08:57 Dose: 75 mg Documented By: ANITRA Enoxaparin Sodium (Enoxaparin Sodium 40 Mg/0.4 Ml Syringe) 40 mg SUBCUT Q24H [facility] Last Admin: 12/25/24 15:41 Dose: 40 mg Documented By: BHARATH Fluoxetine HCl (Fluoxetine Hcl 20 Mg Capsule) 40 mg PO DAILY [facility] Last Admin: 12/25/24 08:57 Dose: 40 mg Documented By: ANITRA Lamotrigine (Lamotrigine 25 Mg Tablet) 50 mg PO DAILY [facility] Last Admin: 12/25/24 08:57 Dose: 50 mg Documented By: ANITRA Lamotrigine (Lamotrigine 100 Mg Tablet) 200 mg PO BID [facility] Last Admin: 12/25/24 08:58 Dose: 200 mg Documented By: ANITRA Metoprolol Tartrate (Metoprolol Tartrate 25 Mg Tablet) 25 mg PO DAILY [facility]; Protocol Last Admin: 12/25/24 08:57 Dose: 25 mg Documented By: ANITRA Midodrine (Midodrine Hcl 10 Mg Tablet) 10 mg PO TIDWM [facility] Last Admin: 12/25/24 12:52 Dose: 10 mg Documented By: ANITRA Nitroglycerin (Nitroglycerin 0.4 Mg Tab.Subl) 0.4 mg SUBLINGUAL Q5M PRN PRN Reason: Chest Pain Nystatin (Nystatin Powder 15 Gm Bottle) 1 appl TOPICAL BID [facility]; Protocol Last Admin: 12/25/24 09:01 Dose: 1 appl Documented By: ANITRA Omeprazole (Omeprazole 20 Mg Capsule.Dr) 20 mg PO DAILY@0630 [facility] Last Admin: 12/25/24 06:09 Dose: 20 mg Documented By: YESI Quetiapine Fumarate (Quetiapine Fumarate 200 Mg Tablet) 200 mg PO BID [facility] Last Admin: 12/25/24 08:57 Dose: 200 mg Documented By: ANITRA Trazodone HCl (Trazodone Hcl 100 Mg Tablet) 200 mg PO BEDTIME [facility] Last Admin: 12/24/24 20:08 Dose: 200 mg Documented By: YESI Labs 12/25/24 05:57 12/25/24 05:57 Labs: Laboratory Results - last 24 hr 12/24/24 12/25/24 19:30 05:57 MCV 90.1 MCH 29.6 MCHC 32.9 RDW 15.1 Plt Count 182 MPV 11.4 Absolute Nucleated RBC 0.000 Nucleated RBC % (auto) 0.0 Hold Purple Top SEE NOTE Anion Gap 12 Estim Creat Clear Calc 44.2 Estimated GFR 35 Random Glucose 102 Lactic Acid 1.2 Calcium 8.1 L Magnesium 1.6 Total Bilirubin 0.4 Direct Bilirubin 0.2 AST 21 ALT 12 Alkaline Phosphatase 91 Total Protein 5.8 L Albumin 2.8 L Microbiology Microbiology Results: Microbiology 12/23/24 11:49 Blood Culture - Preliminary Blood - Venous No growth after 48 hours. 12/23/24 11:40 Blood Culture - Preliminary Blood - Venous No growth after 48 hours. Assessment and Plan (1) SIRS (systemic inflammatory response syndrome): Status: Acute Plan 69M PMH CAD s/p stent, AAA s/p EVAR, right carotid stenosis s/p TCAR 07/2024, HTN, CVA, COPD, GERD, bipolar presented with fall 12/22/24, on 12/23/24 became febrile and hypotensive, admitted to medicine SIRS /fuo no clear source negative ua, cxr, ct abd blood culture neg@48hrs no obvious rash hold ceftriaxone, follow up cultures. ID eval. mechanical fall - likely STR on discharge cad dapl, statin AAA s/p EVAR right carotid stenosis s/p TCAR mood disorder buproprion, lamotrigine, quetiapine HTN meds on hold for hypotension dvt prophylaxis - lovenox DNR/DNI reason for continued hospitalization:monitor fevers, culture. Quality Stroke Does the patient have a stroke diagnosis?: No VTE Prior VTE?: No VTE Risk Level:: Medical - moderate - high VTE Device Contraindication: Treatment Not Indicated VTE Drug Contraindication: N/A - Med Ordered
[2024-12-25 19:38] VITALS: BP 166/89; PULSE 67; RESP 18; TEMP 36.9; O2SAT 96
[2024-12-26] VITALS (7 sets, daily range): BP systolic 121–164; BP diastolic 61–79; PULSE 56–73; RESP 18; TEMP 36.3–37.1; O2SAT 94–98
--- NOTE | 2024-12-26 01:23 | PM.EVENT ---
Event Note Date of Service: 12/26/24 Event Note: 1:10 AM - Patient slid off his bed and landed on his knees. Bed alarm not triggered. There is a camera on his room. He denied head trauma. Loss of consciousness not reported. He seems alert and oriented. His head is atraumatic. Bilateral knee exam: Able to flex his knees. Band-aids applied by nursing due to superficial abrasions. There are no effusions. Patient was educated about contacting nursing to assist him to get out of the bed. He will need reevaluation by PT and ongoing fall precautions. We will add vitamin D level to the morning labs. Time Spent With Patient Time: Total time managing care of this patient today ____ minutes.
--- NOTE | 2024-12-26 03:25 | PC.NURSE ---
This RN entered room and found patient sitting on floor on side of bed. Patient stated he slid out of bed. Denies pain , or head strike. Hospitalist and nursing frame sample and pattern supervisor notified. Hospitalist came to room to examine patient. Bilateral knee abrasions noted. Routine knee x-ray ordered. Patient educated on fall prevention. Fall precautions in place, telesitter at bedside, bed alarm on , call guadarrama within reach.
[2024-12-26 05:48] LABS: MANUAL DIFF FLAG NO
[2024-12-26 05:54] LABS: Hematocrit 31.1 % (42.0-52.0); Hemoglobin 10.3 g/dl (14.0-18.0); Imm Gran Abs Auto 0.04 X10*3/uL (0.00-0.03); Imm Gran Pct Auto 0.5 % (0.0-0.4); Lymphocytes Absolute Auto 1.9 X10*3/uL (1.2-4.9); Mean Corpuscular HGB Conc 33.1 g/dl (31.0-36.0); Mean Corpuscular Hemoglobin 29.2 pg (27.0-33.0); Mean Corpuscular Volume 88.1 fL (80.0-98.0); NRBC Abs Auto 0.000 X10*3/uL (0.0-0.012); NRBC Pct Auto 0.0 /100WBC (0.0-0.2); Platelet Count 220 X10*3/uL (160-400); Red Blood Count 3.53 X10*6/uL (4.60-5.80); White Blood Count 8.4 X10*3/uL (4.8-10.8)
[2024-12-26 06:09] LABS: Anion Gap 13 (12-20); Blood Urea Nitrogen 20 mg/dL (9-16); Calcium 8.7 mg/dL (8.4-10.2); Carbon Dioxide 22 mmol/L (22-29); Chloride 107 mmol/L (96-108); Creatinine Clr Calc Pharmacy 44.9; Estimated Glomerular Filt Rate 36; Magnesium 1.7 mg/dL (1.6-2.6); Potassium 3.8 mmol/L (3.3-5.1); Sodium 138 mmol/L (135-145)
[2024-12-26] MEDS: Aspirin Enteric Coated 81 MG TABLET.DR PO (09:25)
[2024-12-26] MEDS: buPROPion HCl XL 300 MG TAB.ER.24H PO (09:26)
--- NOTE | 2024-12-26 16:27 | P.PNIM_ITS ---
Subjective Subjective Date of Service: 12/26/24 Interval History: fall overnight-please see night staff note Review of Systems seems generlaised weak and drowsy in am , afternoon time improving ,no complaints Review of Systems: Yes all other systems are reviewed and are negative Physical Exam 2 Exam: Exam: alert oriented to person only lungs clear, abd soft non tender, no rash Vital Signs: Vital Signs: Last Vital Signs Temp 98.7 F 12/26/24 15:34 Pulse 56 12/26/24 15:34 Resp 18 12/26/24 15:34 BP 122/70 12/26/24 15:34 Pulse Ox 98 12/26/24 15:34 O2 Del Method Room Air 12/26/24 15:34 BMI result Body Mass Index 30.3 Objective Data Active Medications Acetaminophen (Acetaminophen 325 Mg Tablet) 975 mg PO Q6H PRN PRN Reason: Pain, Mild 1-3,fever,headache Last Admin: 12/24/24 16:24 Dose: 975 mg Documented By: JINNY Amlodipine Besylate (Amlodipine Besylate 2.5 Mg Tablet) 2.5 mg PO DAILY [facility]; Protocol Last Admin: 12/26/24 09:26 Dose: 2.5 mg Documented By: MAURO Aspirin (Aspirin Enteric Coated 81 Mg Tablet.Dr) 81 mg PO DAILY [facility] Last Admin: 12/26/24 09:25 Dose: 81 mg Documented By: MAURO Atorvastatin Calcium (Atorvastatin Calcium 80 Mg Tablet) 80 mg PO BEDTIME [facility] Last Admin: 12/25/24 19:52 Dose: 80 mg Documented By: VIDHYA Bupropion HCl (Bupropion Hcl Xl 300 Mg Tab.Er.24h) 300 mg PO DAILY [facility] Last Admin: 12/26/24 09:26 Dose: 300 mg Documented By: MAURO Ceftriaxone Sodium (Ceftriaxone Sodium 1 Gm Vial) 1 gm IVPUSH Q24H [facility] On Hold: 12/25/24 17:13 Last Admin: 12/25/24 12:51 Dose: 1 gm Documented By: ANITRA Clopidogrel Bisulfate (Clopidogrel Bisulfate 75 Mg Tablet) 75 mg PO DAILY [facility] Last Admin: 12/26/24 09:25 Dose: 75 mg Documented By: MAURO Enoxaparin Sodium (Enoxaparin Sodium 40 Mg/0.4 Ml Syringe) 40 mg SUBCUT Q24H [facility] Last Admin: 12/25/24 15:41 Dose: 40 mg Documented By: BHARATH Fluoxetine HCl (Fluoxetine Hcl 20 Mg Capsule) 40 mg PO DAILY [facility] Last Admin: 12/26/24 09:27 Dose: 40 mg Documented By: MAURO Lamotrigine (Lamotrigine 25 Mg Tablet) 50 mg PO DAILY [facility] Last Admin: 12/26/24 09:25 Dose: 50 mg Documented By: MAURO Lamotrigine (Lamotrigine 100 Mg Tablet) 200 mg PO BID [facility] Last Admin: 12/26/24 09:25 Dose: 200 mg Documented By: MAURO Metoprolol Tartrate (Metoprolol Tartrate 25 Mg Tablet) 25 mg PO DAILY [facility]; Protocol Last Admin: 12/26/24 09:27 Dose: 25 mg Documented By: MAURO Midodrine (Midodrine Hcl 10 Mg Tablet) 10 mg PO TIDWM [facility] Last Admin: 12/26/24 13:30 Dose: Not Given Documented By: MAURO Non-Admin Reason: Elevated Blood Pressure Nitroglycerin (Nitroglycerin 0.4 Mg Tab.Subl) 0.4 mg SUBLINGUAL Q5M PRN PRN Reason: Chest Pain Nystatin (Nystatin Powder 15 Gm Bottle) 1 appl TOPICAL BID [facility]; Protocol Last Admin: 12/26/24 09:32 Dose: 1 appl Documented By: MAURO Omeprazole (Omeprazole 20 Mg Capsule.Dr) 20 mg PO DAILY@0630 [facility] Last Admin: 12/26/24 05:33 Dose: 20 mg Documented By: VIDHYA Quetiapine Fumarate (Quetiapine Fumarate 200 Mg Tablet) 200 mg PO BID [facility] Last Admin: 12/26/24 09:26 Dose: 200 mg Documented By: MAURO Trazodone HCl (Trazodone Hcl 100 Mg Tablet) 200 mg PO BEDTIME [facility] Last Admin: 12/25/24 19:52 Dose: 200 mg Documented By: VIDHYA Labs 12/26/24 05:17 12/26/24 05:17 Labs: Laboratory Results - last 24 hr 12/26/24 05:17 MCV 88.1 MCH 29.2 MCHC 33.1 RDW 14.8 Plt Count 220 MPV 11.2 Immature Gran % (Auto) 0.5 H Neut % (Auto) 63.2 Lymph % (Auto) 22.8 [place] % (Auto) 8.4 Eos % (Auto) 4.2 H Baso % (Auto) 0.9 Lymph # (Auto) 1.9 [place] # (Auto) 0.7 Eos # (Auto) 0.4 Baso # (Auto) 0.1 Abs Immat Gran (auto) 0.04 H Absolute Neuts (auto) 5.3 Absolute Nucleated RBC 0.000 Nucleated RBC % (auto) 0.0 Anion Gap 13 Estim Creat Clear Calc 44.9 Estimated GFR 36 Random Glucose 98 Calcium 8.7 D Phosphorus 2.3 L Magnesium 1.7 Microbiology Microbiology Results: Microbiology 12/23/24 11:49 Blood Culture - Preliminary Blood - Venous No growth after 48 hours. 12/23/24 11:40 Blood Culture - Preliminary Blood - Venous No growth after 48 hours. Assessment and Plan (1) SIRS (systemic inflammatory response syndrome): Status: Acute Plan 69M PMH CAD s/p stent, AAA s/p EVAR, right carotid stenosis s/p TCAR 07/2024, HTN, CVA, COPD, GERD, bipolar presented with fall 12/22/24, on 12/23/24 became febrile and hypotensive, admitted to medicine SIRS /fuo no clear source negative ua, cxr, ct abd blood culture neg@48hrs no obvious rash hold ceftriaxone . ID eval. mechanical fall - likely STR on discharge ct -same knee xary seems fine cad dapl, statin AAA s/p EVAR right carotid stenosis s/p TCAR mood disorder buproprion, lamotrigine, quetiapine HTN meds on hold for hypotension dvt prophylaxis - lovenox DNR/DNI reason for continued hospitalization:monitor fevers, culture. Quality Stroke Does the patient have a stroke diagnosis?: No VTE Prior VTE?: No VTE Risk Level:: Medical - moderate - high VTE Device Contraindication: Treatment Not Indicated VTE Drug Contraindication: N/A - Med Ordered
[2024-12-27 03:07] VITALS: BP 136/64; PULSE 61; RESP 18; TEMP 36.5; O2SAT 93
[2024-12-27 07:54] VITALS: BP 138/70; PULSE 63; RESP 18; TEMP 37.3; O2SAT 94
[2024-12-27] MEDS: buPROPion HCl XL 300 MG TAB.ER.24H PO (09:17)
[2024-12-27] MEDS: Aspirin Enteric Coated 81 MG TABLET.DR PO (09:17)
--- NOTE | 2024-12-27 12:35 | P.CNID_ITS ---
History of Present Illness Data of Consult Service Date: 12/25/24 Requesting physician: Val Awad Primary Care Provider: Balaji Mayo MD HPI Reason for consult: ?sepsis,fever He presents with fever to 101.4 after falling on right knee. He has no cough or urinary symptoms. He is unaware of any tick exposure. He has been in rehab recently after fall and has no meningismus. Review of Systems 2 Review of Systems: Yes all other systems are reviewed and are negative PMFSH Past Medical History Medical History Stage 3b chronic kidney disease Multiple falls CAD (coronary artery disease) Schizoaffective disorder Peripheral arterial disease History of CVA (cerebrovascular accident) Bilateral carotid artery stenosis Stroke due to stenosis of carotid artery Arthritis Myocardial infarct Hypertension Family History Family History Father Heart disease Family history: reviewed and not pertinent Surgical History Surgical History H/O heart artery stent No significant past surgical history Social History Social History Household Members: None Housing: Apartment Do you presently have visiting nurse or other home services: Yes (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 If so, by whom?: No Do you feel safe in your current relationship?: No Current Relationship Is there a partner from a previous relationship who is making you feel unsafe now?: No Are you made to feel afraid or neglected: No Advance Directives: Yes Advance Directives on File: Yes Advance Directives Date on File: 01/18/21 Do you have a plan to hurt others: No Plan Recently lost weight without trying: No How much weight loss: Not applicable Eating poorly because of decreased appetite: No Nutrition screen score: 0 Nutrition Risks: No Nutritional Risk Poor oral hygiene: No service: No Meds Allergies Allergy/AdvReac Type Severity Reaction Status Date / Time clozapine (From Clozaril) Allergy Unknown RASH Verified 12/22/24 16:37 hydroxyzine (From VISTARIL) Allergy Unknown UNKNOWN Verified 12/22/24 16:37 menthol (From Antihistamine) Allergy Unknown RASH Verified 12/22/24 16:37 nicotine (Nicotine) Allergy Unknown GUM- MAKES Verified 12/22/24 16:37 SICK TO STOMACH nut - unspecified (nut) Allergy Unknown SWELLING Verified 12/22/24 16:37 From Antihistamine Allergy Unknown RASH Uncoded 04/13/24 19:04 Active Medications: Current Medications Acetaminophen (Acetaminophen 325 Mg Tablet) 975 mg PO Q6H PRN PRN Reason: Pain, Mild 1-3,fever,headache Last Admin: 12/24/24 16:24 Dose: 975 mg Amlodipine Besylate (Amlodipine Besylate 2.5 Mg Tablet) 2.5 mg PO DAILY [facility]; Protocol Last Admin: 12/27/24 09:16 Dose: 2.5 mg Aspirin (Aspirin Enteric Coated 81 Mg Tablet.Dr) 81 mg PO DAILY [facility] Last Admin: 12/27/24 09:17 Dose: 81 mg Atorvastatin Calcium (Atorvastatin Calcium 80 Mg Tablet) 80 mg PO BEDTIME [facility] Last Admin: 12/26/24 19:59 Dose: 80 mg Bupropion HCl (Bupropion Hcl Xl 300 Mg Tab.Er.24h) 300 mg PO DAILY [facility] Last Admin: 12/27/24 09:17 Dose: 300 mg Ceftriaxone Sodium (Ceftriaxone Sodium 1 Gm Vial) 1 gm IVPUSH Q24H [facility] On Hold: 12/25/24 17:13 Last Admin: 12/25/24 12:51 Dose: 1 gm Clopidogrel Bisulfate (Clopidogrel Bisulfate 75 Mg Tablet) 75 mg PO DAILY [facility] Last Admin: 12/27/24 09:17 Dose: 75 mg Enoxaparin Sodium (Enoxaparin Sodium 40 Mg/0.4 Ml Syringe) 40 mg SUBCUT Q24H [facility] Last Admin: 12/26/24 17:22 Dose: 40 mg Fluoxetine HCl (Fluoxetine Hcl 20 Mg Capsule) 40 mg PO DAILY [facility] Last Admin: 12/27/24 09:17 Dose: 40 mg Lamotrigine (Lamotrigine 25 Mg Tablet) 50 mg PO DAILY [facility] Last Admin: 12/27/24 09:18 Dose: 50 mg Lamotrigine (Lamotrigine 100 Mg Tablet) 200 mg PO BID [facility] Last Admin: 12/27/24 09:17 Dose: 200 mg Metoprolol Tartrate (Metoprolol Tartrate 25 Mg Tablet) 25 mg PO DAILY [facility]; Protocol Last Admin: 12/27/24 09:18 Dose: 25 mg Midodrine (Midodrine Hcl 10 Mg Tablet) 10 mg PO TIDWM [facility] Last Admin: 12/27/24 12:11 Dose: Not Given Nitroglycerin (Nitroglycerin 0.4 Mg Tab.Subl) 0.4 mg SUBLINGUAL Q5M PRN PRN Reason: Chest Pain Nystatin (Nystatin Powder 15 Gm Bottle) 1 appl TOPICAL BID [facility]; Protocol Last Admin: 12/27/24 09:21 Dose: 1 appl Omeprazole (Omeprazole 20 Mg Capsule.Dr) 20 mg PO DAILY@0630 [facility] Last Admin: 12/27/24 05:55 Dose: 20 mg Quetiapine Fumarate (Quetiapine Fumarate 200 Mg Tablet) 200 mg PO BID [facility] On Hold: 12/26/24 16:30 Last Admin: 12/26/24 09:26 Dose: 200 mg Trazodone HCl (Trazodone Hcl 100 Mg Tablet) 200 mg PO BEDTIME [facility] Last Admin: 12/26/24 19:59 Dose: 200 mg Home Medications ?Medication ?Instructions ?Recorded ?Confirmed ?Last Taken ?Type atorvastatin 80 mg tablet 1 tab PO BEDTIME 01/12/2112/29/23 History bupropion HCl 150 mg tablet,12 hr 1 tab PO BID 1 12/23/24 12/29/23 History sustained-release fluoxetine 40 mg capsule 1 cap PO DAILY 01/12/21 09/0 05/1812/29/23 History trazodone 100 mg tablet 2 tab PO BEDTIME Insomnia 12/23/24 12/29/23 History aspirin 81 mg tablet,delayed 1 tab PO DAILY 11/03/21 0 12/23/24 12/29/23 History release omeprazole 20 mg capsule,delayed 20 mg PO DAILY@0630 0 12/30/23 12/23/24 12/29/23 History release amlodipine 2.5 mg tablet 2.5 mg PO DAILY 04/14/2405/18 Unknown History clopidogrel 75 mg tablet 75 mg PO DAILY 12/23/2405/18 Unknown History lamotrigine 100 mg tablet 200 mg PO BID 12/23/2412/23 Unknown History lamotrigine 25 mg tablet 50 mg PO DAILY 12/23/2405/18 Unknown History metoprolol tartrate 25 mg tablet 25 mg PO DAILY 12/23/24 Unknown History quetiapine 400 mg tablet,extended 400 mg PO BEDTIME 12/23/24 Unknown History release 24 hr Physical Exam 2 Vital Signs: Vital Signs: Last Vital Signs Temp 99.1 F 12/27/24 07:54 Pulse 63 12/27/24 07:54 Resp 18 12/27/24 07:54 BP 138/70 12/27/24 07:54 Pulse Ox 94 12/27/24 07:54 O2 Del Method Room Air 12/27/24 07:54 BMI result Body Mass Index 30.3 Const: General: cooperative HEENT: Head: Yes normal to inspection Face and sinus: Yes normal facial exam Mouth: Normal oral and palatal mucosa present Teeth and gingiva: d entition normal Eyes: General: appearance normal, both eyes and all related structures P upils: Equal, round and reactive pupils present Resp: Effort & Inspection: normal respiratory effort Cardio: Rate: regular rate Rhythm: regular rhythm GI: Palpation (GI): Soft to palpation and nontender : General: Yes no CVA tenderness Back/Spine/Pelvis: Back: no CVA tenderness Skin: General skin exam: no rashes or lesions noted Neuro: General: moves all extremities Cranial nerves: Yes Equal, round and reactive pupils present Extrem: Other: abrasion right knee General: Yes normal to inspection Psych: Appearance: grossly normal Results Labs 12/26/24 05:17 12/26/24 05:17 Microbiology Microbiology Results: Microbiology 12/23/24 11:49 Blood - Venous Blood Culture - Preliminary No growth after 48 hours. 12/23/24 11:40 Blood - Venous Blood Culture - Preliminary No growth after 48 hours. Assessment and Plan (1) Accident due to mechanical fall without injury: Status: Acute (2) Leukocytosis: Status: Acute Plan There is no infection seen at this time. He had leukocytosis and fever on arrival and no specific pathology Could send on po Doxycycline bid for 10 days treat possible tickborne pathology. Check West Nile antibodies.
--- NOTE | 2024-12-27 12:42 | MHC.CM.PN ---
PATIENT WILL D/C TO [facility] TODAY @ 2PM VIA [facility]. IMM DELIVERED. PT, & RN AWARE
--- NOTE | 2024-12-27 12:59 | P.DS_ITS ---
DS: Providers Provider Date of Service: 12/27/24 Date of admission: 12/23/24 15:54 Date of discharge: 12/27/24 Primary care physician: Balaji Mayo MD Consults: 12/25/24 08:53 Consult to Infectious Diseases Routine Consulting Provider: [facility] [place] [facility] Reason for consultation: edmundo Attending physician on discharge: Val Awad Discharging clinician: Val Awad DS: Diagnosis Discharge Diagnosis (1) Accident due to mechanical fall without injury: Status: Acute (2) Leukocytosis: Status: Acute DS: Summary Hospital Course Hospital Course: HPI:69-year-old male with a PMH significant for?CAD s/p PCI with stenting, AAA s/p EVAR 02/2025, right carotid stenosis s/p TCAR 07/2024, HTN, CVA, COPD, GERD, and bipolar disorder who initially presented to the ED yesterday after fall at home. Previously had fall at home on 11/15/24 and was seen at [facility] where he was discharged to rehab at [facility]; was discharged from there on 12/21. Pt reports he fell at home that night at approximately 1:00 when he slid off of his couch. Workup in the ED was initially unremarkable except for leukocytosis; no significant electrolyte abnormalities; renal and hepatic function WNL; right foot and knee x-rays negative; CTA of head negative for acute intracranial fi ndings, though showed atrophy and chronic infarcts; and CXR negative for acute findings. Pt was initially placed in physician observation under PT/CM while awaiting placement. However earlier this morning pt met sepsis criteria with fever of 101.3, leukocytosis, and pt also became hypotensive as low as 74/36. Lactic acid WNL. Pt was given sepsis bolus fluids and started on broad-spectrum antibiotics. Blood cultures obtained. BP responded well to therapies. Pt seen and evaluated where he appears weak and frail, somnolent but arousable. Pt overall is a poor historian: realizes he is in a hospital but unsure which one, though oriented to date. Does not remember why he came to the hospital yesterday. Offers no significant complaints. No headache or neck pain. Denies nausea, vomiting, abdominal pain. No chest pain pressure. Denies shortness or breath or difficulty breathing. Denies cough. No diarrhea. Pt will be brought to the hospital floor for meeting SIRS criteria of unclear etiology. Hospital course: 69M PMH CAD s/p stent, AAA s/p EVAR, right carotid stenosis s/p TCAR 07/2024, HTN, CVA, COPD, GERD, bipolar presented with fall 12/22/24, on 12/23/24 became febrile and hypotensive, admitted to medicine: Patient was admitted for SIRS , fever:Patient was admitted for SIRS-workup with UA, chest x-ray, CT abdomen negative, also blood culture negative. Off antibiotics-no new fevers. Discussed with ID-recommended p.o. doxycycline for 10 days. also suspicion is low but tick borne dis panel and west nile virus antibodies sent. Patient had episode of fall: CTA head and negative for acute changes, knee x- rays also done-no fracture. (please see detail imaging below in imaging section.) Patient is feeling much better, asymptomatic, seen by PT recommended rehab. plan: Complete doxycycline 100 mg p.o. b.i.d. for 10 days. Follow up tick-borne serology/West Nile antibodies outpatient. Assessment and plan coordination time spent 45 minute. Time Attestation Total time managing care of this patient today: 45 mintues. Discharge Coordination Time (in mins): 45 min Quality: Safe Use of Opioids Does Pt have an Active Cancer Diagnosis on the Problem List?: No Quality: Stroke Does the patient have a stroke diagnosis?: No Physical Exam Exam: Exam: alert oriented x3 (more alert and at baseline) lungs clear abd soft non tender, no rash cvs: rrr, S1-S2 heard. Vital Signs: Vital Signs: Last Vital Signs Temp 99.1 F 12/27/24 07:54 Pulse 63 12/27/24 07:54 Resp 18 12/27/24 07:54 BP 138/70 12/27/24 07:54 Pulse Ox 94 12/27/24 07:54 O2 Del Method Room Air 12/27/24 07:54 BMI result Body Mass Index 30.3 DS: Data Data Completed and Pending Labs on day of discharge: Preliminary micro results at discharge 12/23/24 11:49 Blood Culture - Preliminary Blood - Venous No growth after 48 hours. 12/23/24 11:40 Blood Culture - Preliminary Blood - Venous No growth after 48 hours. Imaging Chest x-ray: Radiologist's impression: ITS Impressions Knee X-Ray 12/26/24 08:20 IMPRESSION: 1. No acute bony abnormality in either knee. No evidence of joint effusions. Head CT 12/26/24 08:39 IMPRESSION: No acute intracranial abnormality. Extensive changes consistent with small vessel disease and remote posterior right frontal lobe and right thalamic infarct. Ct abd: Impression: No acute findings to explain the patient's presentation with sepsis. Question of mild pulmonary edema. Discharge Plan Discharge Anticipated Discharge Date/Time: 12/27/24 12:43 Patient Disposition: Xfer SNF Discharge Diagnosis: Leukocytosis, fall Referrals: [facility] [Outside] - 1 Week Physician,Unknown J [Physician, Medical] - 1 Week Discharge Medications: New doxycycline hyclate 100 mg capsule 100 mg PO BID Qty: 19 0RF Continued fluoxetine 40 mg capsule 1 cap PO DAILY bupropion HCl 150 mg tablet sustained-release 12 hr 1 tab PO BID atorvastatin 80 mg tablet 1 tab PO BEDTIME trazodone 100 mg tablet 2 tab PO BEDTIME aspirin 81 mg tablet,delayed release (DR/EC) 1 tab PO DAILY nitroglycerin 0.4 mg tablet, sublingual 0.4 mg sublingual Q5M PRN (Reason: chest pain) Qty: 1 0RF Rx Instructions: do not exceed 3 doses per episode omeprazole 20 mg capsule,delayed release(DR/EC) 20 mg PO DAILY@0630 (DME) blood pressure monitor [Blood Pressure Kit] Kit See Rx Instructions .Route Qty: 1 0RF Rx Instructions: As directed amlodipine 2.5 mg tablet 2.5 mg PO DAILY lamotrigine 25 mg tablet 50 mg PO DAILY lamotrigine 100 mg tablet 200 mg PO BID quetiapine 400 mg tablet extended release 24 hr 400 mg PO BEDTIME clopidogrel 75 mg tablet 75 mg PO DAILY metoprolol tartrate 25 mg tablet 25 mg PO DAILY Discharge Orders: Discharge Order (Routine); Ordered 12/27/24 Ordered By: Val Awad Diet: Advance to usual diet Activity on Discharge: As tolerated Stand Alone Forms: Patient Portal Discharge page Print Language: Turkish Care Plan Goals: Patient was admitted for SIRS-workup with UA, chest x-ray, CT abdomen negative, also blood culture negative. Off antibiotics-no new fevers. Discussed with ID-recommended p.o. doxycycline for 10 days. also suspicion is low but tick borne dis panel and west nile virus antibodies sent. Patient is feeling much better, asymptomatic, seen by PT recommended rehab. Health Concerns: Doxycycline 100 mg p.o. b.i.d. for 10 days. Plan of Treatment: As above. Assessment: As above.
[2024-12-27 14:28] VITALS: BP 108/60; PULSE 55; RESP 18; TEMP 36.4; O2SAT 96
[2024-12-28 18:23] LABS: A. Phagocytphilium DNA,RT-PCR NOT DETECTED (NOT DETECTED); Babesia Microti DNA, RT-PCR NOT DETECTED (NOT DETECTED); Borrelia Miyamotoi,DNA RT-PCR NOT DETECTED (NOT DETECTED); E.Chaffeensis DNA RT-PCR NOT DETECTED (NOT DETECTED); Lyme(Borrelia ssp)DNA RT-PCR NOT DETECTED (NOT DETECTED)
[2024-12-31 14:28] LABS: Vitamin D 25-OH, D2 <4 ng/mL; Vitamin D 25-OH, D3 19 ng/mL; Vitamin D 25-OH, Total 19 ng/mL (30-100)
[2025-01-01 16:24] LABS: West Nile Virus, IgG <1.30 index (<1.30)
== END 2024-12-27 14:38 | disposition skilled nursing facility (03) | DRG 864 ==
LOC: HO.ED 17:05 → HO.EDOVER 12-23 16:01 → HO.S3 12-23 19:38
PROVIDERS: Internal Medicine; Registered Nurse Emergency; Admitting Provider Student in an Organized Health Care Education/Training Program; Emergency Provider Emergency Medicine; PCP Family Medicine; Visit Provider Internal Medicine
DX: R50.9 Fever, unspecified (principal); R65.10 Systemic inflammatory response syndrome (SIRS) of non-infectious origin without acute organ dysfunction; I25.10 Atherosclerotic heart disease of native coronary artery without angina pectoris; F31.9 Bipolar disorder, unspecified; Z66 Do not resuscitate; I95.9 Hypotension, unspecified; K21.9 Gastro-esophageal reflux disease without esophagitis; F17.290 Nicotine dependence, other tobacco product, uncomplicated; Z71.6 Tobacco abuse counseling; F39 Unspecified mood [affective] disorder; I12.9 Hypertensive chronic kidney disease with stage 1 through stage 4 chronic kidney disease, or unspecified chronic kidney disease; S50.02XA Contusion of left elbow, initial encounter; S80.01XA Contusion of right knee, initial encounter; W19.XXXA Unspecified fall, initial encounter; N18.32 Chronic kidney disease, stage 3b; W06.XXXA Fall from bed, initial encounter; Z95.5 Presence of coronary angioplasty implant and graft; Z20.822 Contact with and (suspected) exposure to COVID-19; Z79.02 Long term (current) use of antithrombotics/antiplatelets; Z79.82 Long term (current) use of aspirin; Z79.899 Other long term (current) drug therapy
CPT/HCPCS: 36415; 70450; 71045; 73562; 73564; 73630; 74176; 80048; 80053; 80076; 81001; 82306; 82947; 83605; 83690; 83735; 83880; 84100; 84484; 85025; 85027; 85610; 86788; 86789; 87040; 87468; 87469; 87478; 87484; 87633; 87637; 87798; 93005; 97162; 97530; 99285; J0696; J1650; J7120

== ENCOUNTER → 2024-12-22 18:05 | Outpatient (BNV) | payer OTHER, SELFPAY | PROVIDERS: Emergency Provider Emergency Medicine; Visit Provider Internal Medicine Cardiovascular Disease | DX: R94.31 Abnormal electrocardiogram [ECG] [EKG] (principal); W19.XXXA Unspecified fall, initial encounter | CPT/HCPCS: 93010 ==

== ENCOUNTER → 2024-12-23 15:18 | Outpatient (BNV) | payer OTHER, SELFPAY | PROVIDERS: Admitting Provider Student in an Organized Health Care Education/Training Program; Emergency Provider Emergency Medicine; Visit Provider Radiology Diagnostic Radiology | DX: R10.84 Generalized abdominal pain (principal) | CPT/HCPCS: 74176 ==

== ENCOUNTER 2024-12-23 15:54 | Outpatient (BNV) | payer OTHER, SELFPAY | END 2024-12-26 08:20 | PROVIDERS: Admitting Provider Student in an Organized Health Care Education/Training Program; Emergency Provider Emergency Medicine; PCP Family Medicine; Visit Provider Radiology Diagnostic Radiology | DX: I67.82 Cerebral ischemia (principal); M25.561 Pain in right knee | CPT/HCPCS: 70450; 73564 ==

== ENCOUNTER → 2024-12-23 15:54 | Outpatient (BNV) | payer OTHER, SELFPAY | PROVIDERS: Admitting Provider Student in an Organized Health Care Education/Training Program; Emergency Provider Emergency Medicine; PCP Family Medicine; Visit Provider Internal Medicine | DX: D72.829 Elevated white blood cell count, unspecified (principal); W19.XXXA Unspecified fall, initial encounter | CPT/HCPCS: 99222 ==

== ENCOUNTER → 2024-12-23 15:54 | Outpatient (BNV) | payer OTHER, SELFPAY | PROVIDERS: Admitting Provider Student in an Organized Health Care Education/Training Program; Emergency Provider Emergency Medicine; Visit Provider Student in an Organized Health Care Education/Training Program | DX: R65.10 Systemic inflammatory response syndrome (SIRS) of non-infectious origin without acute organ dysfunction (principal) | CPT/HCPCS: 99223; 99231; 99232; 99239; 99499 ==

== ENCOUNTER 2025-01-19 10:58 | Emergency (ER) | payer OTHER, SELFPAY ==
--- OUTSIDE RECORDS SUMMARY | 2023-10-23 13:28 | XMS_ITS | Encounter Summary ---
Author Organization [facility] Address [address] [place] [phone] Phone Care Team Providers Care Motion Picture Set Worker Name Role Phone Balaji Mayo MD Primary Care Provider + Balaji Mayo MD Unavailable Encounter Details Date Type Department Care Team (Late st Contact Info) Description 10/23/2023 1:28 PM EDT Hospital Encounter [facility] [address] [place] [phone] Anupama Ball FNP [address] [place] [phone] [email or web address] Social History Tobacco Use Types Packs/Day Years [...] 11:41 PM EDT Eveline Toro RN * [place] Suicide Severity Rating Scale (Screener/Recent Self-Report) Question Answer Date of Assessment Author 1. Wish to be (Past 1 Month) No 024 11:41 PM EDT Eveline Aguiar RN 2. Non-Specific Active Suici kedar Thoughts (Past 1 Month) No 11/28/2023 11:41 PM EDT Tony Aguiar RN 6. Suicidal Behavior (Lifetime) No 1:24 AM EDT Rayne Hernandez RN documented as of this encounter Plan [...] clinician's provided indication for this examination in [facility]: Trauma; DROPPED A CAN ON FOOT YESTERDAY. [...] calcaneal spur and occlusion specified. Anupama Ball MANAGER GIFT IMG XR LOWER EXTREMITY Genie l Result documented in this encounter Visit Diagnoses Not on filedocumented in this encounter Care Teams Motion Picture Set Worker Relationship Specialty Start Date End Date Balaji Mayo MD [address] [place] [phone] PCP - General Family Medicine 10/23/23 Balaji Mayo MD [address] [place] [phone] Family Medicine 10/23/23 documented as of this encounter Additional Source Comments The information contained in this document represents components of the legal health record. It is not the complete legal health record.[facility]
--- NOTE | ~2025-01-19 | CT_ITS ---
CLINICAL HISTORY: ams CT head without contrast Comparison: December 26, 2024 Findings: Generalized cerebral and cerebellar atrophy is again identified. There is ex vacuo dilatation of the ventricular system related to this degree of atrophy. Moderate to extensive areas of low-attenuation are seen within the periventricular and deep white matter. Encephalomalacia of the right frontal lobe is again seen. Unchanged lacunar infarcts in the right basal ganglia. No new areas of abnormal attenuation are identified within the brain parenchyma. No midline shift or mass effect. No intracranial hemorrhage. No calvarial fractures. IMPRESSION: Unchanged head CT. This includes generalized atrophy with moderate to extensive white matter changes and sequelae of prior presumed infarcts within the right frontal region and right basal ganglia. No hemorrhage or midline shift seen. This document has been electronically signed by: Kevon Vicente MD on 01/19/2025 14:42:14
--- NOTE | ~2025-01-19 | XR_ITS ---
CLINICAL HISTORY: left hip pain Exam: AP pelvis with AP and frog-leg lateral views of the left hip. Comparison: CT of the pelvis december 23, 2024. Findings: The left hip is held in external rotation of the AP view of the pelvis. This results in bony overlap of the greater trochanter and femoral neck. This amount of overlap is slightly diminished on these dedicated AP view of the left hip. Given that limitation, no fracture identified. Mild degenerative change of the left hip joint as seen previously. Pubic rami are intact. Right total hip arthroplasty is again identified. There is prominent heterotopic ossification superior to the right greater trochanter lateral to the prosthesis. Sacroiliac joints and pubic symphysis are anatomically aligned. Impression: No acute fracture. This document has been electronically signed by: Kevon Vicente MD on 01/19/2025 14:37:02
[2025-01-19 11:12] VITALS: BP 185/88; BP 190/86; PULSE 56; PULSE 58; RESP 16; TEMP 36.7; O2SAT 98; O2SAT 99; BMI 27.3
[2025-01-19 11:17] VITALS: BP 185/88; PULSE 58; RESP 16; TEMP 36.7; O2SAT 98
--- NOTE | 2025-01-19 11:36 | PC.NURSE ---
Patient presents to ED from [facility] Patient alert to self. Patient reportedly made SI statements about asking to be brought to the top of a staircase so I can throw myself down . Denies HI. Patient appears depressed stating Things arent going my way Reports pain in left hip stating [place] fallen 5 times in the last 2 weeks . +CMS +ROM Changed over with security, belongings secured Patient incontinent, male purewick in place, awaiting urine sample Patient calm and cooperative at this time Plan of care on going
--- OUTSIDE RECORDS SUMMARY | 2025-01-19 11:42 | XMS_ITS | Encounter Summary ---
Author Organization [facility] Address [address] [place] [phone] Phone Care Team Providers Care Spa Concierge Name Role Phone Balaji Mayo MD Primary Care Provider + Balaji Mayo MD Unavailable [phone] Encounter Details Date Type Department Care Team (Late st Contact Info) Description 11/28/2023 Procedure Pass [facility], Ct Scan - [facility] [address] [place] [address] Social History Tobacco Use Types Packs/Day Years [...] 11:41 PM EDT Eveline Toro RN * [place] Suicide Severity Rating Scale (Screener/Recent Self-Report) Question [...] on filedocumented in this encounter Care Teams Spa Concierge Relationship Specialty Start Date End Date Balaji Mayo MD [address] [place] [phone] PCP - General Family Medicine 10/23/23 Balaji Mayo MD [address] [place] [phone] Family Medicine 10/23/23 documented as of this encounter Additional Source Comments The information contained in this document represents components of the legal health record. It is not the complete legal health record.[facility]
--- OUTSIDE RECORDS SUMMARY | 2025-01-19 11:42 | XMS_ITS | Encounter Summary ---
Author Organization [facility] Address [address] [place] [phone] Phone Care Team Providers Care Equine Breeder Name Role Phone Balaji Mayo MD Primary Care Provider + Balaji Mayo MD Unavailable [phone] Encounter Details Date Type Department Care Team (Late st Contact Info) Description 12/13/[address] [facility] [address] [place] [address] Brody Mejia MD [address] [place] [id number] [email or web address] Primary osteoarthritis, unspecified site (Primary Dx) [...] EDT) WBC 7.27 4.00 - 11.00 K/uL [facility] RBC 3.82(L) 3.90 - 5.69 M/uL [facility] HGB 10.8(L) 12.4 - 17.3 g/dL [facility] HCT 34.5(L) 37.0 - 51.0 % [facility] PLT 320 140 - 430 K/uL [facility] MCV 90.3 78.0 - 97.[address] [facility] MCH 28.3 25.0 - 33.[address] [facility] MCHC 31.3(L) 32.0 - 36.0 g/dL [facility] RDW 14.7 11.0 - 15.0 % [facility] MPV 11.4 8.4 - 12.[address] [facility] Blood 12/13/2023 9:20 AM EDT 12/13/2023 12:06 PM EDT us Brody Mejia MD LAB BLOOD ORDERABLES Genie l Result Performing Organization Address [facility] Co de Phone Number [address] [phone] * (ABNORMAL) Basic metabolic panel (12/13/2023 9:20 AM EDT) SODIUM 140 133 - 146 mmol/L [facility] CHLORIDE 103 96 - 108 mmol/L [facility] POTASSIUM 4.7 3.3 - 5.1 mmol/L [facility] Comment:Specimen slightly he molyzed, result may be falsely elevated. CO2 27 21 - 35 mmol/L [facility] BUN 22(H) 6 - 19 mg/dL [facility] CREATININE 1.90(H) 0.5 - 1.5 mg/dL [facility] GLUCOSE 127(H) 70 - 99 mg/dL [facility] CALCIUM 8.9 8.4 - 10.3 mg/dL [facility] EGFR 38(L) >59 mL/min/1.[address] [facility] Comment:Estimated glomerular filtration rate calculated using the CKD-EPI refit equation. ANION GAP 15 10 - 20 mmol/L [facility] Blood 12/13/2023 9:20 AM EDT 12/13/2023 12:06 PM EDT us Brody Mejia MD LAB BLOOD ORDERABLES Genie l Result Performing Organization Address [facility]/ZIP Co de Phone Number [address] [phone] documented in this encounter Visit Diagnoses Diagnosis Primary osteoarthritis, unspecified site- Primary documented in this encounter Care Teams Equine Breeder Relationship Specialty Start Date End Date Balaji Mayo MD [address] [place] [phone] PCP - General Family Medicine 10/23/23 Balaji Mayo MD [address] [place] [phone] Family Medicine 10/23/23 documented as of this encounter Additional Source Comments The information contained in this document represents components of the legal health record. It is not the complete legal health record.[facility]
--- OUTSIDE RECORDS SUMMARY | 2025-01-19 11:42 | XMS_ITS | Encounter Summary ---
Author Organization [facility] Address [address] [place] [phone] Phone Care Team Providers Care Consumer Attorney Name Role Phone Balaji Mayo MD Primary Care Provider + Balaji Mayo MD Unavailable [phone] Encounter Details Date Type Department Care Team (Late st Contact Info) Description 11/28/2023 Procedure Pass [facility], Ct Scan - [facility] [address] [place] [address] Social History Tobacco Use Types Packs/Day Years [...] 11:41 PM EDT Eveline Toro RN * [place] Suicide Severity Rating Scale (Screener/Recent Self-Report) Question [...] on filedocumented in this encounter Care Teams Consumer Attorney Relationship Specialty Start Date End Date Balaji Mayo MD [address] [place] [phone] PCP - General Family Medicine 10/23/23 Balaji Mayo MD [address] [place] [phone] Family Medicine 10/23/23 documented as of this encounter Additional Source Comments The information contained in this document represents components of the legal health record. It is not the complete legal health record.[facility]
--- OUTSIDE RECORDS SUMMARY | 2025-01-19 11:42 | XMS_ITS | Data Portability ---
Author Organization [facility], [facility] Address [address] [place] [address] Care Team Providers Care Crm Solution Architect Name Role Phone RONIT JENS Primary Care Provider [phone] Assessment Encounter Date Assessment Date Assessment LastModified by Organization Details LastModified Time 11/07/2023 11/07/2023 Imaging: Imaging ordered, independently reviewed and interpreted by Seth Gomez MD reveals the following findings: XR Hip Right Hip: Two views of the hip were obtained including AP pelvis and groin lateral views. Severe DJD present. Changes consistent with osteoarthritis including joint space narrowing, subchondral sclerosis, and osteophyte formation. Arthrosis primarily affects the superior compartment. XR Hip Left Hip: Two views of the hip were obtained including AP pelvis and groin lateral views. Severe DJD present. Changes consistent with osteoarthritis including joint space narrowing, subchondral sclerosis, and osteophyte formation. Arthrosis primarily affects the superior compartment. Impression: Bilateral hip osteoarthritis, right more painful than left Plan: Will plan for anterior approach. I recommend a total hip arthroplasty for relief of their hip disease. They have exhausted conservative measures. Their symptoms are significant enough to warrant replacement. I informed the patient that the goal is to offer significant pain relief for about 15 years, and hopefully this also improves their hip function. Activities can be resumed after surgery, however running and jumping are discouraged. They agree to this procedure. Prior to surgery the patient needs to have the following: CBC, CMP, medical clearance, cardiac clearance Indications for surgery: Advanced joint disease demonstrated by: X-ray Failure of conservative management The patient remains symptomatic and has had an unsuccessful history of appropriate conservative therapy (non-surgical medical management). Non surgical medical management was implemented for 3 months or more to assess effectiveness. Conservative treatment as clinically appropriate for the patient s current episode of care including, but not limited to, one or more of the following:anti-infla mmatory medications, analgesics, flexibility and muscle strengthening exercises, supervised physical therapy (Activities of daily living (ADLs) diminished despite completing a plan of care), activity restrictions as is reasonable, assistive device use, weight reduction as appropriate, and therapeutic injections into the joint as appropriate PFMSH and ROS have been reviewed, updated, and is located in the patient s chart. Risks and benefits of surgery were discussed with the patient and the patient understood. I discussed the alternatives and details of surgery and postoperative care with the patient. The patient understands the concepts of surgery and the postoperative conditions required for healing. The patient further understands that surgery can have unfavorable outcomes. In particular, we discussed the possible complications of nonhealing of the tissues and need for reoperation, nerve injury, bleeding or blood loss requiring transfusion, hematoma or complications of anticoagulation used to prevent blood clots, infection requiring further surgery or removal of implants, massive infection requiring amputation, or continued or worse pain. We also discussed worsening of chronic medical conditions and life-threatening complications including stroke, clot, heart attack, pulmonary embolism and related to the surgery or anesthesia, or other factors. The patient understands these risks and benefits of surgery and wishes to proceed, and has signed consent willfully. Due to the condition of the joint, it is my medical opinion that further conservative treatment will not provide relief of their pain, thus we are proceeding with surgery. VTE risk factors: History of VTE: No Active malignancy (excluding skin cancer): No Systolic heart failure (LVEF < 40%): No Bilateral TKA or CADEN being performed: No Current use of hormonal therapy: No (Testosterone use excluded) Oral contraceptive pills Hormone replacement therapy Known thrombophilic disorder: No Antiphospholipid Syndrome Factor V Leiden Prothrombin Gene Mutation Protein C/S Deficiency Anti-Thrombin Deficiency Paroxysmal Nocturnal Hemoglobinuria (PNH) Myeloproliferative Disorder/THIEN-2 Mutation Polycythemia Vera Chronic Myelogenous Leukemia Essential Thrombocytosis Total risk factors: 0 Based on risk stratification above, will plan to use baby aspirin with Plavix for DVT prophylaxis. Patients prescribed antithrombotic therapy for an indication other than post-operative VTE prophylaxis should be assessed on an individual basis for continuation of their current therapy. If using a direct oral anticoagulant (DOAC) as home regimen, either resume DOAC post-op, or consider temporary transition to Warfarin therapy in the post-operative period. [email or web address] Not available 11/07/2023 14:05:12 11/14/2023 11/14/2023 PRIMARY DIAGNOSIS: Osteoarthritis of the right hip. [...] putting on socks and shoes. He states that he is now ready for right total hip [...] PHYSICIANS: His primary care provider is Dr. Jens Mayo and his lodging manager is Dr. Conrad, his vascular provider is [...] very limited and painful range of motion with pain referred to the groin. Motor sensation screening is intact. Calves are supple and nontender. Ankle motion is satisfactory. Pedal pulses palpable bilaterally. Skin on his feet is intact. PREOPERATIVE DIAGNOSTIC DATA: EKG reads sinus bradycardia at 58 beats per minute with minimal voltage criteria for LVH. Orthopedic x-rays demonstrate end-stage osteoarthritis of the right hip. There is ybkc-ve-gvyg articulation, subchondral sclerosis and osteophyte formation. LABORATORY [...] seen by the medical consultative preoperative clinic and that dictation is still pending. The patient was also seen by his lodging manager who stated that using the [employer] cardiac risk assessment tool he is at 1.2% risk of myocardial infarction or cardiac arrest intraoperatively or up to 30 days postoperatively. He does not require any additional testing at this time. They recommended that he continue his beta blockers throughout the perioperative period. The patient was also seen by [...] answered and he acknowledges understanding. The patient wishes to proceed with surgery. The patient will receive 1 week of in-home physical therapy postoperatively. No prescriptions were given to him at this office visit. The patient will require prescriptions for aspirin, Colace, Zofran, cefadroxil and pain medications prior to discharge. CONTACTS: His brother, Tim with a cell phone number of [phone]. [email or web address] Not available 11/15/2023 08:56:46 06/06/2024 06/06/2024 Imaging: Imaging ordered, independently reviewed and interpreted by Seth Gomez MD reveals the following findings: A CT of the patient's right hip was obtained prior to his office visit at the patient's request, there is no evidence of periprosthetic fracture or implant loosening, there is scant heterotopic ossification present within the soft tissues surrounding the right hip Impression: Status post right anterior total hip arthroplasty with trochanteric bursitis Plan: I provided Tesfaye with a steroid injection today into the area of maximal tenderness which included his lateral trochanteric bursa as well as the abductor muscles. He had excellent anesthetic relief from this injection. He may follow up with us as needed and I encouraged him to schedule a follow-up visit with one of our physician assistants if he does have recurrence of his pain and requires a repeat injection in 3 months [email or web address] Not available 06/06/2024 12:56:35 Plan of Treatment Reminders Order Date Submit Date Provider Last Modified By Organization Details Last Modified Time Details Appointments None recorded. Lab None recorded. Referral physical therapist referral - PRE HAB ARTHR 11/22/23 Tai kahn Lower Extremity Upper extremity to improve strength for transfers with arthritic lower extremity No ROM Conditionin g- stationary bike, etc. If pt over age 55 or has any cardiopulmo nary history, call PCP first to obtain medical clearance. Gait training Cane Walker Assistive devices for ADL's- sock puller, long shoe horn, etc. 2023 024 [email or web address] 14 [facility], [address] [facility], [address] [place] [address], [place], [address], 08:08:42 physical therapist referral - S/P ARTHR 11/22/23 BEGIN POST OP PT ON 12/04/23 Gait Training, Maribelli femi, Conditionin g Please bring this script and attached protocol with you to your physical therapy appointment 2023 024 [email or web address] 14 [facility], [address], [place], [address], 4 08:08:42 Procedures None recorded. Surgeries None recorded. Imaging XR, hip + pelvis, unilateral, 2 or 3 view - 204 arthr 2nd p/o AB 2023 024 [email or web address] [facility], [address], [address], [place], [address], 4 14:40:40 XR, hip + pelvis, unilateral, 2 or 3 view - rm 205 2V 1st PO ARTHR AB 2023 024 [email or web address] [facility], [address], [address], [place], [address], 4 16:35:33 XR, hip + pelvis, bilateral, 3 or 4 view - ROOM 202, B/ Hip Pain (FISHING VESSEL CAPTAIN per AB) 2023 024 [email or web address] 14 [facility], [address], [address], [place], [address], 4 08:08:42 Medication Orders None recorded. Patient TargetsNo targets recorded. Patient InstructionsNo instructions recorded. Reason for Referral Physical Therapist Referral for Osteoarthritis of right hip joint PRE HAB ARTHR 11/22/23Strengthening Lower Extremity Upper extremity to improve strength for transfers with arthritic lower extremity No ROM Conditioning- stationary bike, etc. If pt over age 55 or has any cardiopulmonary history, call PCP first to obtain medical clearance.Gait training Cane WalkerAssistive devices for ADL's- sock puller, long shoe horn, etc. Referring Physician: Seth Gomez, Orthopedic Surgery, [id number] Encounter Date: 11/07/2023 Physical Therapist Referral for Osteoarthritis of right hip joint S/P ARTHR 11/22/23 BEGIN POST OP PT ON 12/04/23Gait Training, Strengthening, Conditioning Please bring this script and attached protocol with you to your physical therapy appointment Referring Physician: Seth Gomez Orthopedic Surgery, [id number] Encounter Date: 11/07/2023 Results Created Date Observation Date Name Description Value Unit Range Abnormal Flag Note LastModifiedBy Organization Detail LastModifiedTime 11/01/19 24 10/23/2023 XR, foot No observ ation record ed. [email or web address] [address], [address], 11/01/2023 11:41:10 11/07/19 24 11/07/2023 XR, hip + pelvi s, bilat eral, 3 or 4 view http:/ [email or web address] ?Encry pted=s hAaTro YD8dLq bEUv6g %2BXZw aYqtaq 0bqfl% 2Fg9IQ a4ajBk vP9nXo QUaueC m3YtLR FvZlgJ JJ8mAn HZtai3 6q0486 AC0Kpb X%2BGU qTeUC8 mr84%3 D INTERFACE [facility] [address], [place], [address], 11/07/2023 12:59:21 11/21/19 24 11/07/2023 XR, hip + pelvi s, bilat eral, 3 or 4 view [email or web address]:/ [email or web address] ?Encry pted=s hAaTro YD8dLq bEUv6g %2BXZw aYqtaq 0bqfl% 2Fg9IQ a4ajBk vP9nXo QUaueC m3YtLR FvZlgJ JJ8mAn HZtai3 1e3540 AC0Kpb X%2BGU qTeUC8 mr84%3 D INTERFACE [facility] [address], [place], [address], 11/21/2023 14:23:12 11/21/19 24 11/07/2023 XR, hip + pelvi s, bilat eral, 3 or 4 view http:/ [email or web address] ?Encry pted=s hAaTro YD8dLq bEUv6g %2BXZw aYqtaq 0bqfl% 2Fg9IQ a4ajBk vP9nXo QUaueC m3YtLR FvZlg [facility] 5i8680 AC0Kpb X%2BGU qTeUC8 mr84%3 D INTERFACE [facility] [address], [place], [address], 11/21/2023 14:23:13 11/22/19 24 11/22/2023 XR, hip + pelvi s, bilat eral, 3 or 4 view No observ ation record ed. [address], [address], 11/22/2023 18:51:03 11/23/19 24 11/22/2023 XR, hip + pelvi s, bilat eral, 3 or 4 view No observ ation record ed. [address], [address], 11/23/2023 08:03:57 12/08/19 24 12/08/2023 XR, hip + pelvi s, unila teral , 2 or 3 view http:/ [email or web address] ?Encry pted=s hAaTro YD8dLq bEUv6g %2BXZw aYqtaq 0bqfl% 2Fg9IQ a4ajBk vP9nXo QUaueC m3YtLR FvZlg [facility] 3p3505 AC0Kra n6FWKL eUC8mr 84%3D INTERFACE [facility] [address], [place], [address], 12/08/2023 14:52:13 12/08/19 24 12/08/2023 XR, hip + pelvi s, unila teral , 2 or 3 view http:/ [email or web address] ?Encry pted=s hAaTro YD8dLq bEUv6g %2BXZw aYqtaq 0bqfl% 2Fg9IQ a4ajBk vP9nXo QUaueC m3YtLR FvZlgJ JJ8mAn tai3 2d8342 AC0Kra n6FWKL eUC8mr 84%3D INTERFACE [facility] [address], [place], [address], 12/08/2023 14:52:14 12/22/19 24 04/02/2019 imagi ng/di agnos tic resul t No observ ation record ed. [email or web address] Not Available 11/24 22:03:38 12/22/19 24 02/24/2021 imagi ng/di agnos tic resul t No observ ation record ed. [email or web address] Not Available 11/24 22:03:51 12/22/19 24 03/01/2022 imagi ng/di agnos tic resul t No observ ation record ed. [email or web address] Not Available 11/24 22:04:13 01/15/20 24 01/15/2024 XR, hip + pelvi s, unila teral , 2 or 3 view http:/ [email or web address] ?Encry pted=s hAaTro YD8dLq bEUv6g %2BXZw aYqtaq 0bqfl% 2Fg9IQ a4ajBk vP9nXo QUaueC m3YtLR FvZlgJ JJ8mAn [facility] 0m3762 AC0Kqa nqBVKS hKiQtr MwF INTERFACE [facility] [address] [facility] [facility] [address], [place], [address], 01/15/2024 12:45:50 01/15/20 24 01/15/2024 XR, hip + pelvi s, unila teral , 2 or 3 view http:/ [email or web address] ?Encry pted=s hAaTro YD8dLq bEUv6g %2BXZw aYqtaq 0bqfl% 2Fg9IQ a4ajBk vP9nXo QUaueC m3YtLR FvZlgJ JJ8mAn HZtai3 5m3795 AC0Kqa nqBVKS hKiQtr MwF INTERFACE [facility] [address], [place], [address], 01/15/2024 12:45:52 04/09/20 24 04/04/2024 CT, hip, w/o contr ast No observ ation record ed. [email or web address] [facility] [place] [address] [facility] [address], [place], [address], 04/10/2024 12:25:52 Result Notes Documentation Provider Name and Address Organization Details Recorded Time Xr, Hip + Pelvis, Bilateral, 3 Or 4 View : [email or web address] Encrypted=xlNeEuaGR3pPfwH Uv6g%3YNPecGkenp0qvzv%2Fg 1DZt5lyUkqL8rPgBRqsxUt9Jw ABBsLzxMHH6kPsCFztp75h644 4GV3WhsY%4GGEjBzXH9et08%3 D Not Available [facility] 11/07/2023 12:59:22 Xr, Hip + Pelvis, Bilateral, 3 Or 4 View : [email or web address] Encrypted=jyCpIcuCO6kBqtG Uv6g%9YQGmmEbqut2nzoo%2Fg 8KCy8odOwuM0vDuTNetvZu5Nf QQCiXeyFCR9uZiJZbce22t381 4QL9ZtsC%9IYCdTcJL6kz18%3 D Not Available [facility] 11/21/2023 14:23:12 Xr, Hip + Pelvis, Bilateral, 3 Or 4 View : [email or web address] Encrypted=haTdKxrPM3qFfhW Uv6g%3RSKlgCkezw5wfjl%2Fg 6OMp7brKkyU9cEgKEvkdSm8Mc CZQyHxdXNA1zNvZZuuq62e339 5EJ0YwnB%1WZNkHyUK8ip58%3 D Not Available [facility] 11/21/2023 14:23:14 Xr, Hip + Pelvis, Unilateral, 2 Or 3 View : [email or web address]? Encrypted=dpQpWkxBN8pBxdA Uv6g%3IWKlnVzakw0cfgw%2Fg 3EKj1ioOyqP7aAfSWvboQe3Ec IQHnWgzWZQ6jEgNTkzv82d733 6BY7Hpfa8ZRPRpGI2rm65%3D Not Available [facility] 12/08/2023 14:5 2:13 Xr, Hip + Pelvis, Unilateral, 2 Or 3 View : [email or web address] Encrypted=zxWxGzkNV4fYfgD Uv6g%4SATpjTdyrn1kaux%2Fg 3MRu3pvOyaZ6cBbVIzegSf0Bi VKFzQnbQPJ8yNfEJzap59b713 4VS2Vptu5TYUUuOX3jx27%3D Not Available [facility] 12/08/2023 14:5 2:15 Xr, Hip + Pelvis, Unilateral, 2 Or 3 View : [email or web address] Encrypted=dqLvBgxYQ5gCxuS Uv6g%4MRMgwKyuox1zbir%2Fg 1HWr2sfPbuB9pFhJXlljLm3Ge XKHmUdpIJT0eEqFNyiq46t610 8LN6LjtohPQBQuXtMiyYqK Not Available [facility] 01/15/2024 12:45: 51 Xr, Hip + Pelvis, Unilateral, 2 Or 3 View : [email or web address] Encrypted=ulQkBtfUV7kUuuS Uv6g%4ENFseTcjrb9lsjo%2Fg 8KGd9nvUunA6dLoATsifDz4Ja EFWyAwzOZB3pPwWJyse00i100 8JA7AzsmgHWJMcKhKguGvU Not Available [facility] 01/15/2024 12:45: 52 Problems Name Problem SNOMED Code Status Onset Date Resolution Date Notes Provider Name and Address Organization Details Recorded Time No complaint s [id number] Active Status: 'I'; Not Available [facility] 4 09:20:53 Pain of left hip joint 461974045632 100 Active 2020 Problem Code: M25.552; Problem Code Type: ICD-10; Status: 'A'; Not Available [facility] 4 11:58:50 Osteoarth ritis of right hip joint 795209866021 107 Active 2023 Seth Gomez MD [address] [facility] [address], [place], [address] , [facility] 4 14:05:03 Osteoarth ritis of left hip joint 642525723624 108 Active 2023 Seth Gomez MD [address] [facility] [address], [place], [address] , [facility] 4 14:05:10 History of repair of hip joint 210879615 Active 2024 Seth Gomez MD [address] [facility] [address], [place], [address] , [facility] 5 12:56:31 Problem Notes None recorded. Procedures Surgical History Date Name Laterality Status Provider Name and Address Organization Details Recorded Time 5 Hip Kenalog 1cc Injection, L/R completed Seth Gomez MD [address] [address], [place], [address], [facility] 06/06/2024 12:56:55 Imaging Results None recorded. Procedure Notes None recorded. Medical Equipment None Reported. Allergies No known drug allergies Medications Name Sig Start Date Stop Date Status Note LastModified by Organization Details LastModified Time fluoxetine 40 mg capsule TAKE 1 CAPSULE BY MOUTH DAILY active Not Available Not Available No t Available bupropion HCl SR 150 mg tablet,12 hr sustained-r elease TAKE 1 TABLET BY MOUTH TWICE DAILY active Not Available Not Available No t Available atorvastati n 80 mg tablet TAKE 1 TABLET BY MOUTH DAILY active Not Available Not Available No t Available lamotrigine 200 mg tablet 06/06 completed Not Available Not Available Not Available trazodone 50 mg tablet TAKE 2 TABLETS BY MOUTH AT BEDTIME 06/06 completed Not Available Not Available Not Available senna 8.6 mg tablet TAKE 1 TABLET BY MOUTH EVERY NIGHT AT BEDTIME NEEDED FOR CONSTIPAT ION active Not Available Not Available No t Available isosorbide mononitrate ER 30 mg tablet,exte nded release 24 hr TAKE 1 TABLET BY MOUTH DAILY IN THE MORNING 06/06 completed Not Available Not Available Not Available amlodipine 2.5 mg tablet TAKE 1 TABLET BY MOUTH DAILY active Not Available Not Available No t Available clopidogrel 75 mg tablet TAKE 1 TABLET BY MOUTH DAILY 06/06 completed Not Available Not Available Not Available amlodipine 5 mg tablet 06/06 completed Not Available Not Available Not Available aspirin 81 mg tablet,seven yed release TAKE 1 TABLET BY MOUTH EVERY DAY active Not Available Not Available No t Available lamotrigine 25 mg tablet TAKE 2 TABLETS BY MOUTH EVERY MORNING active Not Available Not Available No t Available trazodone 100 mg tablet TAKE 2 TABLETS BY MOUTH DAILY AT BEDTIME active Not Available Not Available No t Available amlodipine 10 mg tablet TAKE 1 TABLET BY MOUTH DAILY 06/06 completed Not Available Not Available Not Available fluoxetine 10 mg capsule TAKE 1 CAPSULE BY MOUTH EVERY MORNING 06/06 completed Not Available Not Available Not Available nitroglycer in 0.4 mg sublingual tablet DISSOLVE ONE TABLET UNDER TONGUE NEEDED FOR CHEST PAIN EVERY 5 MINUTES DIRECTED active Not Available Not Available No t Available docusate sodium 100 mg capsule 06/06 completed Not Available Not Available Not Available omeprazole 20 mg capsule,del ayed release TAKE 1 CAPSULE BY MOUTH DAILY active Not Available Not Available No t Available metoprolol succinate ER 25 mg tablet,exte nded release 24 hr 06/06 completed Not Available Not Available Not Available fluoxetine 20 mg capsule TAKE 1 CAPSULE BY MOUTH EVERY MORNING 06/06 completed Not Available Not Available Not Available fluticasone propionate 50 mcg/actuati on nasal spray,suspe nsion SHAKE LIQUID AND USE 1 SPRAY IN EACH NOSTRIL TWICE DAILY NEEDED FOR ALLERGIES active Not Available Not Available No t Available lamotrigine 100 mg tablet TAKE 2 TABLETS BY MOUTH TWICE DAILY active Not Available Not Available No t Available amoxicillin 875 mg-hanna peck clavulanate 125 mg tablet TAKE 1 TABLET BY MOUTH TWICE DAILY FOR 5 DAYS 06/06 completed Not Available Not Available Not Available esomeprazol e magnesium 20 mg capsule,del ayed release 06/06 completed Not Available Not Available Not Available oxycodone 5 mg tablet TAKE 1 TABLET BY MOUTH EVERY 6 HOURS FOR 3 DAYS NEEDED FOR SEVERE PAIN 06/06 completed Not Available Not Available Not Available metoprolol tartrate 25 mg tablet TAKE ONE-HALF TABLET BY MOUTH TWICE DAILY active Not Available Not Available No t Available quetiapine ER 400 mg tablet,exte nded release 24 hr TAKE 1 TABLET BY MOUTH DAILY AT BEDTIME 06/06 completed Not Available Not Available Not Available quetiapine ER 150 mg tablet,exte nded release 24 hr TAKE 1 TABLET BY MOUTH AT BEDTIME active Not Available Not Available No t Available Vitals Date Recorded Body height Body mass index (BMI) Body weight Provider Name and Address Organization Details Last Updated DateTime 06/06/2024 182.88 cm 29.3 kg/m2 67450.95 g FAREED SOLANO [facility] 06/06/2024 10:56:55 Date Recorded Body height Body mass index (BMI) Body weight Provider Name and Address Organization Details Last Updated DateTime 11/07/2023 182.88 cm 28.6 kg/m2 15153.91 g Lacey Childs [facility] 11/07/2023 12:48:42 Date Recorded Body height Body mass index (BMI) Body weight Provider Name and Address Organization Details Last Updated DateTime 11/14/2023 182.88 cm 29.3 kg/m2 60964.95 g CHEMO AVILA [facility] 11/14/2023 08:23:45 Date Recorded Body height Provider Name an d Address Organization Details Last Updated DateTime 12/08/2023 182.88 cm ANAND ABAD [facility] 12/08/2023 14:40:23 Date Recorded Body height Provider Name an d Address Organization Details Last Updated DateTime 01/15/2024 182.88 cm KINGSTON HERNANDEZ [facility] 01/15/2024 12:38:17 Social History Question Answer Notes LastModified by Organizat ion Details LastModified Time Tobacco Smoking Status Current Every Day Smoker Lacey osborne [place] - [facility] 11/07/2023 13:02:35 How Much Tobacco Do You Smoke? 1 PPD 4-5 Cigars A Day [email or web address] Information not available 11/07/2023 Sex: Unknown Functional Status Question Answer Note LastModified by Organizat ion Details LastModified Time Do you use any illicit or recreational drugs? No [email or web address] Information not available 11/07/2023 Do you or have you ever used any other forms of tobacco or nicotine? No [email or web address] Information not available 11/07/2023 Mental Status None recorded. Family History Nothing Reported. Medical History Condition Response Heart Trouble Y Heart Attack ([place]) Y Past Encounters Encounter ID Performer Location Encounter Start Date Encounter Closed Date Diagnosis/Indication Diagnosis SNOMED-CT Code Diagnosis ICD10 Code Diagnosis IMO Codes Diagnosis Note [id number] MD [facility] [address] [place] [address] 11/07/2023 12:35:32 11/07/2023 15:42:22 Pain of bilateral hip joints 3494369901 4647374 M25.551 M25.552 Osteoarthr itis of right hip joint 0228327929 42458 M16.11 Osteoarthr itis of left hip joint 0869143308 09474 M16.12 [id number] JOHAN Enciso [address] [place] [address] 11/14/2023 08:10:36 11/29/2023 15:31:50 Osteoarthritis of right hip joint 1114071335 30969 M16.11 [id number] ALEXANDREA Goss [address] [place] [address] 12/08/2023 14:21:23 01/02/2024 09:12:06 History of total replacement of right hip joint [id number] Z96.342 [id number] ALEXANDREA Mariano [address] [place] [address] 01/15/2024 12:12:04 02/02/2024 14:40:40 History of total replacement of right hip joint [id number] Z96.078 [id number] MD ANTONELLA Luu [place] [address] [place] [address] 06/06/2024 10:18:40 06/25/2024 10:11:48 History of repair of hip joint [id number] Z98.890 [id number] Health Concerns Section Related Observation LastModified by Organization Detai ls LastModified Time None Recorded Concern Status LastModified by Organization Details LastModified Time None Recorded Advance Directives Directive None Recorded Payers Insurance Date Sequence Insurance Name Policy Number Policy Lundberg Covered Member ID Lundberg Member ID Guarantor Name 12/07/2023 1 [facility] - DOS ON OR AFTER 2022 - CUSTODIAL OPTIONS (MEDICARE REPLACEMENT/AD VANTAGE - HMO) Edward Rosa [id number] Edward Rosa 11/29/2023 1 [place] [employer] Edward Rosa [id number] Edward Rosa 11/29/2023 1 [place] [facility] Edward Rosa [id number] Edward Rosa 01/04/2024 1 [facility] - DOS ON OR AFTER 2022 - CUSTODIAL OPTIONS (MEDICARE REPLACEMENT/AD VANTAGE - HMO) Edward Rosa [id number] Edward Rosa 06/25/2024 1 [facility] - DOS ON OR AFTER 2022 - ONE CARE (MEDICARE REPLACEMENT/AD VANTAGE - HMO) Edward Rosa [id number] Edward Rosa Notes Date Note Type Note Provider Name and Address Organization Details Recorded Time 11/07/2023 text/html ROS as noted in the HPI History of present illness:Complaint: Bilateral hip pain, right worse than leftPain: The pain is severe, it is worsened with activity and has gotten to point where it limits the patient's ability to ambulate moderate distances without needing to rest for pain relief. The patient is limited in their regular daily and social activities as a result of this painNon-operative treatment: Patient has tried and failed anti-inflammatory pain medications, Tylenol, physical therapy, and injections.Edwrad is an extremely friendly and pleasant 68 year old male who presents today for evaluation for his bilateral hips. They have a known, longstanding history of bilateral hip osteoarthritis, right more painful than left and have undergone a lengthy course of conservative management with generalized failure of nonsurgical options. Their pain is severe and worsened with activity, it has gotten to the point where it is significantly interfering with their ability to perform activities of daily living as well as daily social tasks. They are interested in pursuing total hip arthroplasty for definitive relief of their pain from osteoarthritisHe presented to me previously about 2 years ago, at that point while he did have a graphic evidence of osteoarthritis, his examination was much more benign. He states that his pain has continued to progress and that the bursa injections he is proceeding received are no longer effective, he now has pain deep within the groin and significant restriction to range of motion, consistent with symptomatic osteoarthritis of the hipsPast family, medical, social history and review of systems has been reviewed and updated, and is located in the patient s chart. Seth Gomez MD [address] [place] [address] [address] [facility], [place], [address], [facility] 11/07/2023 14:05:25 12/08/2023 text/html ROS as noted in the HPI I am seeing the patient today under the supervision of who was available but who did not see the patient. HISTORY OF PRESENT ILLNESS The patient presents today for follow-up, now two weeks status post Right total hip arthroplasty. Overall progressing nicely, happy with results. No significant complaints of pain.No neurovascular changes. Patient is currently residing in a rehab facility. He has been utilizing oxycodone and Tylenol for pain relief. He has been on aspirin for DVT prophylaxis. He is using a walker for ambulatory support. PAST MEDICAL/SURGICAL HISTORY Reviewed today, otherwise unchanged per intake sheet REVIEW OF SYSTEMS Systemic: No fever and no chills. Cardiovascular: No chest pain or discomfort. Pulmonary: No dyspnea. PHYSICAL FINDINGS General Appearance: Well developed. n no acute distress. Musculoskeletal System: Hips: Right Hip: Hip was not tender on palpation. No pain was elicited by active motion. No pain was elicited by passive motion. Lower Leg: General/bilateral: Calves of both lower legs were not tender on palpation. Neurological: Oriented to time, place, and person. Gait And Stance: An operative sided antalgic gait was observed with assistive device. Psychiatric: Mood was appropriate to the affect. Skin: Physical examination of the hip reveals the incision to be intact, no erythema or drainage, no evidence of infection. 4/5 strength, normal sensation. Contralateral side shows no warmth, erythema, soft tissue swelling, or effusion. TESTS X-rays ordered, obtained, and reviews today at [facility], two views, reveal maintained alignment of the prosthetic components, no fracture or dislocation,excellent interface ASSESSMENT Progressing nicely two weeks status post Right total hip arthroplasty. PLAN Reviewed total hip precautions with the patient, who showed good understanding, and will continue to monitor for any evidence of infection, Follow-up in one month for re-evaluation, sooner if there is any complications. Jose A Ballard PA-C [address] [place] [address] [address], [place], [address], [facility] 12/08/2023 15:31:31 01/15/2024 text/html I am seeing the patient today under the supervision of Dr. Frias was available but who did not see the patient. HISTORY OF PRESENT ILLNESS The patient presents today for follow-up, now two weeks status post right total hip arthroplasty. Overall progressing nicely, happy with results. No significant complaints of pain.No neurovascular changes. PAST MEDICAL/SURGICAL HISTORY Reviewed today, otherwise unchanged per intake sheet REVIEW OF SYSTEMS Systemic: No fever and no chills. Cardiovascular: No chest pain or discomfort. Pulmonary: No dyspnea. PHYSICAL FINDINGS General Appearance: Well developed. n no acute distress. Musculoskeletal System: Hips: Right Hip: Hip was not tender on palpation. No pain was elicited by active motion. No pain was elicited by passive motion. Lower Leg: General/bilateral: Calves of both lower legs were not tender on palpation. Neurological: Oriented to time, place, and person. Gait And Stance: An operative sided antalgic gait was observed with assistive device. Psychiatric: Mood was appropriate to the affect. Skin: Physical examination of the []hip revelas the incision to be intact, no erythema or drainage, no evidence of infection. 4/5 strength, normal sensation. Contralateral side shows no warmth, erythema, soft tissue swelling, or effusion. TESTS X-rays ordered, obtained, and reviews today at [facility], two views, reveal maintained alignment of the prosthetic components, no fracture or dislocation,excellent interface ASSESSMENT Progressing nicely two weeks status post right total hip arthroplasty. PLAN Reviewed total hip precautions with the patient, who showed good understanding, and will continue to monitor for any evidence of infection, Follow-up in one month for re-evaluation, sooner if there is any complications. Wilber Piper PA-C [address], [place], [address], [facility] 01/15/2024 12:51:58 06/06/2024 text/html ROS as noted in the HPI History of present illness:Edward presents today for repeat evaluation for his right hip. He is approximately 5 months out from right anterior total hip arthroplasty and doing well, he is ambulate in with the use of a cane. He states that he has been having pain along the lateral side of his hip and slightly anteriorly, it is generally worse when he is getting up from a seated position or flexing his hip while he is in a seated position. He has significant tenderness to palpation in the lateral hip bursa regionPast family, medical, social history and review of systems has been reviewed and updated, and is located in the patient s chart. Seth Gomez MD [address], [place], [address], [facility] 06/06/2024 12:57:08
--- OUTSIDE RECORDS SUMMARY | 2025-01-19 11:42 | XMS_ITS | Encounter Summary ---
Author Organization [facility] Address [address] [place] [id number] Phone Care Team Providers Care Manager Monitoring Name Role Phone Balaji Mayo MD Primary Care Provider + Balaji Mayo MD Unavailable [phone] Encounter Details Date Type Department Care Team (Late st Contact Info) Description 11/28/2023 Procedure Pass [facility], Ct Scan - [facility] [address] [place] [address] Social History Tobacco Use Types Packs/Day Years [...] 11:41 PM EDT Eveline Toro RN * [place] Suicide Severity Rating Scale (Screener/Recent Self-Report) Question [...] on filedocumented in this encounter Care Teams Manager Monitoring Relationship Specialty Start Date End Date Balaji Mayo MD [address] [place] [id number] PCP - General Family Medicine 10/23/23 Balaji Mayo MD [address] [place] [id number] Family Medicine 10/23/23 documented as of this encounter Additional Source Comments The information contained in this document represents components of the legal health record. It is not the complete legal health record.[facility]
--- OUTSIDE RECORDS SUMMARY | 2025-01-19 11:42 | XMS_ITS | Data Portability ---
Author Organization [facility] [employer] [facility], Main Office Address [address] [place] [address] Care Team Providers Care Chief Passenger Ship Steward/Stewardess Name Role Phone JENS COTTRELL Primary Care Provider LORELEI POLLACK - 2ND FLOOR OTHER Assessment Encounter Date Assessment Date Assessment LastModified by Organization Details LastModified Time 02/14/2023 02/14/202302/03: na 141, k 3.9, bun 25, creat 1.90 glord Not available 02/14/2023 09:10:40 02/16/2023 02/16/202302/03: na 141, k 3.9, bun 25, creat 1.90 02/14: wbc 9.73, hgb 13.1, hct 40.6, ba 142, k 4.0, bun 19, creat 1.80 glord Not available 02/16/2023 12:39:29 Plan of Treatment Reminders Order Date Submit Date Provider Last Modified By Organization Details Last Modified Time Details Appointments None record ed. Lab None record ed. Referral None record ed. Procedures None record ed. Surgeries None record ed. Imaging None record ed. Medication Orders None record ed. Patient TargetsNo targets recorded. Patient InstructionsNo instructions recorded. Reason for Referral None Reported. Problems Name Problem SNOMED Code Status Onset Date Resolution Date Notes Provider Name and Address Organization Details Recorded Time Coronary arterioscle rosis 67115486 Active 2022 [facility] [address], [address], [place], [address], [facility] [employer] 3 10:28:37 Abdominal aortic aneurysm 948019159 Active 2022 [facility] [address], [address], [place], [address], [facility] 3 10:27:45 Chronic kidney disease stage 3B 069316471 Active 2022 DULCE LORD [address] , [address], [place], [address], [facility] 3 10:27:57 Renal artery stenosis 655057105 Active 2022 DULCE LORD [address] , [address], [place], [address], [facility] 3 10:28:01 Hypercholes terolemia 27025445 Active 2022 [facility] LORD [address] , [address], [place], [address], [facility] 3 10:28:12 Carotid artery occlusion 067397692 Active 2022 DULCE LORD [address] [place] [address], [address], [place], [address], [facility] 3 10:28:22 Orthopnea 43046241 Active 2022 [facility]ULCE LORD [address] , [address], [place], [address], [facility] 3 10:28:54 Schizoaffec tive disorder 26302598 Active 2022 [facility] LORD [address] , [address], [place], [address], [facility] 3 10:28:56 Cerebrovasc ular accident 836060062 Active 2022 [facility] LORD [address] , [address], [place], [address], [facility] 3 10:29:24 Recurrent falls 479179751 Active 2022 [facility] LORD [address] , [address], [place], [address], [facility] 3 11:09:26 Asthenia 65670794 Active 2023 Lucinda Carlisle, OLENA [address] , [address], [place], [address], [facility] 4 14:04:48 Fracture of multiple ribs 2629782 Active 2023 Lucinda Carlisle NP [address], [address], [place], [address], [facility] 4 14:05:35 Pain of left hip joint 6950585561188 00 Active 2023 Lucinda Carlisle NP [address], [address], [place], [address], [facility] 4 14:05:54 Closed fracture of multiple right ribs 2719005152826 9102 Active 2023 Jennifer Alonso MD [address], [address], [place], [address], [facility] 4 14:08:01 Essential hypertensio n 86505695 Active 2023 Jennifer Alonso MD [address], [address], [place], [address], [facility] 4 14:11:56 Peripheral vascular disease 745007499 Active 2023 Jennifer Alonso MD [address] , [address], [place], [address], [facility] 4 14:15:17 Problem Notes None recorded. Medical Equipment None Reported. Allergies Allergen ID Allergen Name Allergen Category Reaction Reaction Severity Criticality Documentation Date Start Date Code Code System Note Provider Name and Address Organization Details Recorded Time 98600 Abilify medicatio n other Not available unabletoasse ss 07/10/2023 49038 3 RxNorm Lucinda Carlisle NP [address], [address], [place], [address], [facility] 4 12:27:02 13775 Benadryl medicatio n other Not available unabletoasse ss 07/10/2023 69874 7 RxNorm Lucinda Carlisle NP [address], [address], [place], [address], [facility] 4 12:27:17 36813 Claritin medicatio n other Not available unabletoasse ss 07/10/2023 24474 6 RxNorm Lucinda Carlisle NP [address], [address], [place], [address], [facility] 4 12:27:30 60056 Clozaril medicatio n other Not available unabletoasse ss 07/10/2023 69004 2 RxNorm Lucinda Carlisle NP [address], [address], [place], [address], [facility] 4 12:27:43 62695 Vistaril medicatio n other Not available unabletoasse ss 07/10/2023 99712 9 RxNorm Lucinda Carlisle NP [address], [address], [place], [address], [facility] 4 12:29:15 12638 hydroxyzi ne Not available other Not available unabletoasse 07/10/2023 5553 RxNorm Lucinda Carlisle NP [address], [address], [place], [address], [facility] 4 12:54:35 Vitals Date Recorded Heart rate Respiratory rate Body temperature Oxygen saturation Oxygen saturation in Arterial blood by Pulse oximetry Systolic And Diastolic Provider Name and Address Organization Details Last Updated DateTime 4 50 /min 18 /min 97.6 [degF] 98 % 98 % 132/74 mm[Hg] Lucinda Carlisle NP [address], [address], [place], [address], [facility] 4 12:14:52 Date Recorded Body weight Body mass index (BMI) Body height Heart rate Respiratory rate Body temperature Oxygen saturation Oxygen saturation in Arterial blood by Pulse oximetry Systolic And Diastolic Provider Name and Address Organization Details Last Updated DateTime 4 10808.0 1 g 29.9 kg/m2 177.8 cm 75 /min 18 /min 98.6 [degF] 98 % 98 % 136/70 mm[Hg] Jennifer Alonso MD [address], [address], [place], [address], [facility] 4 14:10:16 Date Recorded Body height Body weight Body mass index (BMI) Heart rate Respiratory rate Body temperature Oxygen saturation Oxygen saturation in Arterial blood by Pulse oximetry Systolic And Diastolic Provider Name and Address Organization Details Last Updated DateTime 4 177.8 cm 52083.0 3 g 29.6 kg/m2 80 /min 18 /min 98.4 [degF] 99 % 99 % 128/72 mm[Hg] Lucinda Carlisle NP [address], [facility] [address], [place], [address], [facility] 4 11:11:12 Date Recorded Body temperature Systolic And Diastolic Provider Name and Address Organization Details Last Updated DateTime 02/14/2023 97.6 [degF] 127/79 mm[Hg] [facility] [address], [address], [place], [address], [facility] 02/14/2023 09:12:19 Date Recorded Body temperature Heart rate Respiratory rate Oxygen saturation Oxygen saturation in Arterial blood by Pulse oximetry Systolic And Diastolic Provider Name and Address Organization Details Last Updated DateTime 3 97.8 [degF] 80 /min 16 /min 96 % 96 % 130/80 mm[Hg] [facility] [address], [address], [place], [address], [facility] 3 12:34:29 Social History Question Answer Notes LastModified by Organizat ion Details LastModified Time Tobacco Smoking Status Current Every Day Smoker Lucinda Carlisle NP [address] [facility] [address], [place], [address], [facility] 07/10/2023 12:35:31 Do You Have An Advance Directive? Yes Information not available 07/17/2023 What Is Your Code Status? DNI 07/02/23 Signed Cpr, Dni, Transfer To [facility], Use Dialysis, Undecided Art Nut, Use IVF Information not available 07/17/2023 Where Do You Live? Apartment Elderly Housing Information not available 07/17/2023 Legal Guardian? No Informati on not available 07/17/2023 Do You Have A Medical Power Of Oral Surgery Physician? Yes Information not available 07/17/2023 What Was The Date Of Your Most Recent Tobacco Screening? 07/17/2023 Information not available 07/17/2023 Do You Have An Out Of Hospital DNR? No Information not available 07/17/2023 Have You Ever Been Counseled For Unhealthy Alcohol Use? No Information not available 07/10/2023 What Is Your Relationship Status? Single Information not available 07/17/2023 Has Tobacco Cessation Counseling Been Provided? Yes Information not available 07/17/2023 On What Date Was Tobacco Cessation Counseling Provided? 07/17/2023 Not Interested In Quitting, Says He Already Smokes So Little Information not available 07/17/2023 Do You Have Any Dietary Restrictions? No Information not available 07/10/2023 Sex: Male Functional Status Question Answer Note LastModified by [employer] ion Details LastModified Time How many times per week do you consume alcohol? Less than 1 time per week Information not available 07/17/2023 Do you use any illicit or recreational drugs? No Information not available 07/10/2023 Do you or have you ever used any other forms of tobacco or nicotine? Yes cigars or pipes daily Information not available 07/10/2023 What is your level of alcohol consumption? Occasional EtOH 1-2 times per year Information not available 07/17/2023 Do you or have you ever used smokeless tobacco? Never used smokeless tobacco Information not available 07/10/2023 Do you or have you ever used e-cigarettes or vape? Never used electronic cigarettes Information not available 07/10/2023 Mental Status None recorded. Family History Nothing Reported Notes:Mother: CAD, HLD, HTN Father: CAD, HLD, HTN Medical History No medical history recorded. Immunizations Vaccine Type Date Status Note Provider Nam e and Address Organization Details Recorded Time Pneumococcal conjugate PCV20, polysaccharide SBZ998 conjugate, adjuvant, PF 2 completed Esme osborne, [facility] 07/10/2023 12:19:59 pneumococcal polysaccharide PPV23 3 completed Esme osborne [facility] 07/10/2023 12:20:26 pneumococcal [facility] PPV23 [facility] 12:20:33 Influenza, adjuvanted, quadrivalent, PF [facility] 12:20:53 Influenza, adjuvanted, quadrivalent, PF 3 completed Esme osborne [facility] 07/10/2023 12:21:00 COVID-19, mRNA, LNP-S, bivalent, PF, 30 mcg/0.3 mL dose 1 [facility] 12:21:15 COVID-19, mRNA, LNP-S, bivalent, PF, 30 mcg/0.3 mL dose [facility] 12:21:21 COVID-19, mRNA, LNP-S, bivalent, PF, 30 mcg/0.3 mL dose 1 [facility] 12:21:27 Past Encounters Encounter ID Performer Location Encounter Start Date Encounter Closed Date Diagnosis/Indication Diagnosis SNOMED-CT Code Diagnosis ICD10 Code Diagnosis IMO Codes Diagnosis Note [id number] Gee Palmer MD [facility] [address] [place] [address] 02/02/2023 14:00:19 02/07/2023 12:05:22 Coronary arteriosclerosis 71831878 I25.10 most recently received a drug-eluti ng stent to the mid circumflex ; hx previous stents;nee ds f/u cardiology ;needs f/u cardiac rehab;need s f/u lipid specialist ;lipitor 80mg/d;Con tinue aspirin 81 mg p.o. indefinite ly and clopidogre l 75 mg p.o. at least 1 year post interventi on.recent d/c norvasc & beta lashell;co ronary artery disease with LAD stenting in 2010 with restenosis in 2020 which required PCI and 2 overlappin g drug eluting stents (complicat ed by postproced ural embolic watershed strokes); ekg (01/28/23) Sinus bradycardi a; Minimal voltage criteria for LVH, may be normal variant ( R in aVL ); Inferior infarct , age undetermin ed; Abdominal aortic aneurysm 860649197 I71.40 growing; needs f/u w vascular specialist s;AAA (11/10/22) A 5.0 cm infrarenal aortic aneurysm with extensive peripheral thrombosis is noted. This is slightly increased in size from the prior study which time it measured approximat sylvia 4.8 cm Renal artery stenosis 30 6214573 I70.1 chronic; hx stent; needs f/u w cardiovas ular specialist s;NADIRA; left renal stent ; ct (08/24/20) Celiac artery: Patent. Mild-moder ate proximal stenosis. Superior mesenteric artery: Patent. Mild-moder ate proximal stenosis. 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 Right renal artery: Patent. Moderate-s evere proximal stenosis. Left renal artery: Proximal renal artery stent, patent Carotid ar tara occlusion 247254329 I65.29 chronic; needs f/u w cardiovas ular specialist s;carotid artery disease, subclavian stenosis; (07/27/22) Probably 50-69% stenosis of the Internal Carotid Artery proximally given contralate ral ICA occlusion; Retrograde Vertebral artery flow consistent with subclavian steal.;; ct () Occlusion of the right intracrani al internal carotid artery; proximal left subclavian artery is occluded with reconstitu tion of the distal left subclavian artery. Heavy calcificat ion is present at the origin of the right internal carotid artery which is occluded (100% by NASCET criteria). ; Left carotid system: Moderate stenosis of the proximal left common carotid artery near its origin; mild to moderate stenoses. Heavy calcificat ion at the left carotid bifurcatio n. The proximal left ICA is degraded by streak artifact and motion, and severe stenosis may be present. Right vertebral: Calcificat ion at the right vertebral artery origin which may be mild-moder ately stenotic. Left vertebral: The origin and V1 segment of the left vertebral artery do not opacify and are occluded. There is reconstitu tion of the attenuated V2 and V3 segments of the left vertebral artery. Orthopnea 30997966 R06.0 1 chronic; mother & father had same problem; always sleeps sitting up;has not had sleep test; recommend outpatient sleep study; Anticoagulant therapy 18 7443442 Z79.01 asa+ plavix; () Continue aspirin 81 mg p.o. indefinite ly and clopidogre l 75 mg p.o. at least 1 year post interventi on. Chronic ki dney disease stage 3B 281826503 N18.32 family history of renal dz; consider nephrology consult;ck d3; (02/03/23) cr 1.9; (01/31/23) cr 1.9 egfr 38; psa (03/04/20) 0.3; (baseline 1.4). Schizoaffe ctive disorder 12776474 F25.9 well compensate d on multiple meds;has therapist outpt whom he has seen for 20ish years;decl atilio acute therapy;wi ll ask social security benefits interviewer to drop by to review community resources; Cerebrovas cular disease 80184035 I67.9 extensive; History of cerebrovascular accident 391004646 Z86.73 aspirin; statin; plavix;mul ti embolic event;brai n mri (08/29/20) Multiple bilateral supratento rial and infratento rial acute/suba cute infarcts, right more than left, most consistent with an embolic event. Given the bilaterali ty and multiplici ty, a central source is most likely. Medication monitoring 39 0692473 Z51.81 meds / - Continue aspirin 81 mg p.o. indefinite ly and clopidogre l 75 mg p.o. at least 1 year post interventi on. [facility] / pulm / flonase; endo / lipitor 80 mg/d; heme / plavix 75 mg/d; asa 81 mg/d; gi / prilosec 20 mg/d; gu / neuro / Quetiapine 400 mg hs; trazodone 200 mg hs; Fluoxetine 40 mg/d; Lamotrigin e 200 mg bid; Bupropion SR 150 mg bid; Hypercholesterolemia 136 45266 E78.00 on lipitor 80mg/d;he should be on additional medication ;recommend outpatient lipid specialist consultati on;brandon rashid PCSK9 inhibitors [id number] D[facility]cc[facility] on [address] [place] [address] 02/06/2023 10:26:24 02/08/2023 13:58:00 Coronary arteriosclerosis 01909566 I25.10 most recently received a drug-eludi ng stent to the mid circumflex ; hx previous stents;con tinue lipitor 80mg/dCont inue aspirin 81 mg p.o. indefinite ly and clopidogre l 75 mg p.o. at least 1 year post interventi on.recent d/c norvasc & beta lashell- bps elevated today 162/96add back norvasc 2.5 mg daily and monitor bps closely Chronic ki dney disease stage 3B 059170861 N18.32 family history of renal dz; consider nephrology consult;ck d3; (02/03/23) cr 1.9; (01/31/23) cr 1.9 (baseline 1.4)monito r labs weeklyavoi d nephrotoxi c meds Essential hypertension 49590476 I10 bps elevated since admissiona dd back norvasc 2.5 mg dailymonit or BPs closely [id number] [facility] N[facility]ent[facility] at [facility] on [address] [place] [address] 02/07/2023 09:07:20 02/09/2023 09:44:39 Coronary arteriosclerosis 38374735 I25.10 most recently received a drug-eludi ng stent to the mid circumflex ; hx previous stents;con tinue lipitor 80mg/dCont inue aspirin 81 mg p.o. indefinite ly and clopidogre l 75 mg p.o. at least 1 year post interventi on.recent d/c norvasc & beta lashell- bps elevated today 162/96cont inue norvasc 2.5 mg daily- if no improvemen t in two days will increase to 5 mg daily Chronic ki dney disease stage 3B 409312831 N18.32 family history of renal dz; consider nephrology consult;ck d3; (02/03/23) cr 1.9; (01/31/23) cr 1.9 (baseline 1.4)monito r labs weeklyavoi d nephrotoxi c meds Essential hypertension 36868030 I10 continue norvasc 2.5 mg dailyconsi arline increase to 5 mgmonitor BPs closely Recurrent falls 33746135 2 R29.6 long hx of falls, left knee arthritis and bursitisfo llow up with ortho as scheduledP T to continue [id number] D[facility]CE Mccart[facility] at [facility] on [address] [place] [address] 02/14/2023 09:09:04 02/21/2023 08:22:34 Coronary arteriosclerosis 69078540 I25.10 recent d/c norvasc & beta lashell- bps stable todayconti nue norvasc 2.5 mg dailymonit or Essential hypertension 19341201 I10 continue norvasc 2.5 mg dailymonit or BPs closely monitored Recurrent falls 83836649 2 R29.6 long hx of falls, left knee arthritis and bursitisfo llow up with ortho as scheduledP T to continue [id number] [facility] Mccart[facility] at [facility] on [address] [place] [address] 02/16/2023 12:33:14 02/21/2023 11:03:53 Essential hypertension 90223286 I10 recent d/c norvasc & beta lashell- bps stable today 130/80cont inue norvasc 2.5 mg daily Recurrent falls 33379982 2 R29.6 long hx of falls, left knee arthritis and bursitisfo llow up with ortho as scheduledP T to continue with [facility] outpt Chronic ki dney disease stage 3B 743242011 N18.32 family history of renal dz; consider nephrology consult;ck d3; (02/03/23) cr 1.9; (01/31/23) cr 1.9 (baseline 1.4)avoid nephrotoxi c meds Coronary arteriosclerosis 61743828 I25.10 most recently received a drug-eluti ng stent to the mid circumflex ; hx previous stents;nee ds f/u cardiology ;needs f/u cardiac rehab;need s f/u lipid specialist ;lipitor 80mg/d;Con tinue aspirin 81 mg p.o. indefinite ly and clopidogre l 75 mg p.o. at least 1 year post interventi on. Abdominal aortic aneurysm 410093406 I71.40 growing; needs f/u w vascular specialist s;AAA (11/10/22) A 5.0 cm infrarenal aortic aneurysm with extensive peripheral thrombosis is noted. This is slightly increased in size from the prior study which time it measured approximat sylvia 4.8 cm Carotid ar tara occlusion 720550271 I65.29 chronic; needs f/u w cardiovasc ular specialist s; Hypercholesterolemia 136 24235 E78.00 on lipitor 80mg/d; Schizoaffe ctive disorder 80259869 F25.9 well compensate d on multiple meds;has therapist outpt whom he has seen for 20ish years;decl atilio acute therapy; Cerebrovas cular disease 68061319 I67.9 extensive; History of cerebrovascular accident 972921201 Z86.73 aspirin; statin; plavix;mul ti embolic event;brai n mri (08/29/20) Multiple bilateral supratento rial and infratento rial acute/suba cute infarcts, right more than left, most consistent with an embolic event. Given the bilaterali ty and multiplici ty, a central source is most likely. [id number] Lucinda Carlisle NP [address] [address] 07/10/2023 12:12:47 07/13/2023 09:31:44 Coronary arteriosclerosis 96508485 I25.10 bp 140/76,con tinuenorva sc 5 mg daily( was on 2.5 mg daily per pcp)aspiri n 81 mg po ec dailyplavi x 75 mg p po dailymetop rolol tartate 25 mg po daily(not on in pcp summary but on here) monitor for neednitro 0.4 mg po q 5 min prn cp x 3 doses, notify providermo nitor Essential hypertension 96902561 I10 continueno rvasc 5 mg daily( was on 2.5 mg daily per pcp)metopr olol tartate 25 mg po daily(not on in pcp summary but on here)monit or BPs and hr Recurrent falls 43321363 2 R29.6 long hx of falls, with left hip/knee arthritis and bursitisfo llow up with pcp outpt prnCT and xrays negative in er 07/07PT/OT eval and treatlabs monitored q monday bmp/cbc x 2 weeksmonit or Chronic ki dney disease stage 3B 264135905 N18.32 family history of renal dz; consider nephrology consult;ck d3; cr 1.7 (baseline 1.9)monito r labs weeklyavoi d nephrotoxi c meds Schizoaffe ctive disorder 13873187 F25.9 quetiapine er 400 mg po dailyfluox etine 40 mg po dailytrazo done 50 mg po bid (was on 200mg po bid per pcp summary but unsure)blair otrigine 200 mg po bid (unclear why)monito r Cerebrovas cular accident 023443098 I63.9 hx ofatorvast atin 80 mg po daily Abdominal aortic aneurysm 864914792 I71.[address]info per CT in hosp:Aneur ysmal dilatation of the infrarenal abdominal aorta which is known and similar to the CT angiogram exam of May 26, 2023. This is increased in size from more remote exam of August 2021. Moderate atheroscle rosis of the descending thoracic aorta.moe tor Carotid ar tara occlusion 021799751 I65.29 hx of carrying dx Asthenia 04248088 R53.1 PT OT treat and evalsafety precaution scall guadarrama in reach Closed fra cture of multiple right ribs 8137632821 4267663 S22.41XD likely older fx ribs, age undetermin ed and pt states fx ribs in pasttyleno l 650 mg po q 8 hours schedmonit or Pain of le ft hip joint 1440630900 20072 M25.552 left hip joint pain likely rt bursitisxr ay and ct ruled out fx with hx of fallslidod erm 4 % topically to left hipmonitor [id number] Jennifer Alonso MD [address] [address] 07/17/2023 13:04:17 07/20/2023 15:52:32 Pain of left hip joint 5023226895 01625 M25.552 He tells me left hip pain is chronic his whole life. He had a dislocated hip at and attributes it to this. He says he just lives with it, doesn't like to take meds.Kaiden nue lidocaine patch 5% topically prn and APAP 650 mg q 4 hrs prn.Monito r sxs. Closed fra cture of multiple right ribs 7239770072 2511297 S22.41XD Consistent with past falls.Pain control as above.PT/O T as needed while here and as outpt. Asthenia 54091191 R53.1 As above. Recurrent falls 42662563 2 R29.6 With chronic problems with balance and strength.H as made improvemen t with rehab.Will continue with home services at d/c.[facility] will start home PT/OTAnamita s to stay until home services are set up, maybe today, maybe tomorrow. SW will let him know. Coronary arteriosclerosis 86615210 I25.10 No recent sxs.Contin ue meds as above and ASA 81 mg qd, atorvastat in 80 mg qd and NTG 0.4 mg q 5 min prn CP x 3Monitor for sxs. Essential hypertension 39710854 I10 In good control since here.Kaiden nue amlodipine 5 mg qd and metoprolol 25 mg qdMonitor BP and labs Chronic ki dney disease stage 3B 016400438 N18.32 At baseline.C ontinue to avoid nephrotoxi c meds as able.Monit or labs.Renal consult prn. Schizoaffe ctive disorder 82132538 F25.8 Mood generally stable, with some lability.C ontinue quetiapine ER 400 mg qd, fluoxetine 40 mg po qd, trazodone 50 mg BID, and lamotrigin e 200 mg BID.Monito r mood.F/U as outpt. Cerebrovas cular accident 003021291 I63.89 Hx of several.Co ntinue meds as above.Moe tor as outpt. Abdominal aortic aneurysm 229378055 I71.43 Now ~ 5.[address]Per last vascular note (06/01/23), criteria for repair is 5.[address] in 11/2023 and vascular f/u after Carotid ar tara occlusion 617216837 I65.23 Hx of.Continu e meds as above.Moe tor for sxs. Peripheral vascular disease 058528998 I73.89 Encouraged smoking cessation. Continue meds as above and Plavix 75 mg qd.Monitor sxs. [id number] [facility] [address] [facility] [place] [address] 07/18/2023 11:09:29 07/20/2023 16:01:23 Recurrent falls 751998587 R29.6 With chronic problems with balance and strength.H as made improvemen t with rehab.Will continue with home services at d/c today. Nursing services in place.[facility] will start home PT/OT prnmonitor outpt with vna services and pcp outpt Pain of le ft hip joint [id number] M25.552 states pain controlled onContinue lidocaine patch 5% topically prnAPAP 650 mg q 4 hrs prn.Monito r sxs.fu with pcp outpt Closed fra cture of multiple right ribs [id number] S22.41XD Consistent with past falls.Pain control as above.PT/O T as needed as outpt. Asthenia [id number] R53.1 As above. Essential hypertension [id number] I10 In good control since here.Kaiden nueamlodip ine 5 mg qdmetoprol ol 25 mg qdMonitor outpt with pcp Coronary arteriosclerosis [id number] I25.10 No recent sxs.Contin ue meds as aboveASA 81 mg qdatorvast atin 80 mg qdNTG 0.4 mg q 5 min prn CP x 3Monitor for sxs. with vna and pcp outpt Chronic ki dney disease stage 3B [id number] N18.32 At baseline.C ontinue to avoid nephrotoxi c meds as able.Monit or labs.Renal consult prn outpt Peripheral vascular disease [id number] I73.89 Encouraged smoking cessation. Continue meds as above and Plavix 75 mg qd.Monitor sxs. outpt with pcp Carotid ar tara occlusion [id number] I65.23 Hx of.Continu e meds as above. 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 Abdominal aortic aneurysm [id number] I71.43 Now ~ 5.[address]Per last vascular note (06/01/23), criteria for repair is 5.[address] in 11/2023 and vascular f/u afterfu with pcp outpt Health Concerns Section Related Observation LastModified by Organization Detai ls LastModified Time None Recorded Concern Status LastModified by Organization Details LastModified Time None Recorded Advance Directives Directive Y: Payers Insurance Date Sequence Insurance Name Policy Number Policy Lundberg Covered Member ID Lundberg Member ID Guarantor Name 07/10/2023 2 [place] [employer] Edward Rosa [id number] Edward Rosa 07/10/2023 2 [place] [facility] Edward Rosa [id number] Edward Rosa 07/17/2023 1 [facility] - DOS ON OR AFTER 2022 - MEDICARE ADVANTAGE [place] (MEDICARE REPLACEMENT/AD VANTAGE - PPO) Edward Rosa [id number] Edward Rosa Notes Date Note Type Note Provider Name and Address Organization Details Recorded Time 02/14/2023 text/html ROS as noted in the HPI This is a 67 yo gentleman seen today for acute rounding visit. Patient here for rehab s/p NSTEMI; received a drug-eluding stent to the mid circumflex with resolution of chest pain. Patient sitting in his wheelchair at time of evaluation. Pleasant and conversive. No acute complaints at present. Pt reports he has arthritis and bursitis in his left knee, he has a follow up apt scheduled with ortho he tells me his pin puller has it scheduled. He denies pain, light headedness or dizziness, no LOC prior to falls. His recent labs were normal, VS are mostly stable with some htn. DULCE STONER [address], [address], [place], [address], [facility] 02/14/2023 13:09:30 02/16/2023 text/html ROS as noted in the HPI This is a 67 yo gentleman seen today for discharge summary visit. Patient here for rehab s/p NSTEMI; received a drug-eluding stent to the mid circumflex with resolution of chest pain. Patient has had many falls since admission, all with no sustained injury. Pt reports he has arthritis and bursitis in his left knee, he has a follow up apt scheduled with ortho he tells me his pin puller has it scheduled. He denies pain, light headedness or dizziness, no LOC prior to falls. His recent labs were normal, VS are mostly stable with some htn. He is ok to DC home today with meds and services, no acute concerns at this visit. DULCE STONER [address] [place] [address], [address], [place], [address], [facility] 02/16/2023 12:49:09 07/10/2023 text/html ROS as noted in the HPI Pt is seen for an initial intake visit. PMH: CAD with LAD stenting in 2010 and restenosis in 2020 with pci and 2 overlapping drug eluting stents (complicated by postprocedural embolic watershed strokes), HTN , PVDAAA, dysipidemia, schizoaffective disorder, ckd stage III.Edward is a 68-year-old male with above pmh presenting [facility] ER after a fall at [facility] now at [facility] for continued care and rehab due to worsening hip pain. His hospital workup consisting of labs, xrays, and CT scan spine show no acute abnormalities. Labs show elevated creatinine of 1.7 at baseline with CKD and negative for anemia. There are subacute-appearing right-sided rib fractures of the right fourth through seventh ribs.These fractures are incompletely healed with persistent fracture lines and callus formation. Mild contusion injuries at the lower back. No formed hematoma. Ectasia approaching borderline for aneurysmal dilatation at the ascending aorta, up to maximum of 4.4 cm. Aneurysmal dilatation of the infrarenal abdominal aorta which is known and similar to the CT angiogram exam of May 26, 2023. This is increased in size from more remote exam of August 2021. Moderate atherosclerosis of the descending thoracic aorta. On exam, Edward is alert and oriented x 3 and scores 15/15 on the BIMS exam. He states he has fallen multiple times and can't count how many. He states he just falls and doesn't understand why. He is able to walk with quad cane to his room and back today with slight limp but overall did well. OF NOTE: no dc summary medications came with pt. Pt meds reconciled with pcp visit medications noted on 06/15 and current meds ordered here (unsure where list came from). Pt denies taking flonase or senna and states he doesn't need that much trazodone and willing to stay on the 50 mg po bid. EJ high fall risk BIMS MOLST: CPR, DNI, Transfer to hosp, use dailysis, art nut undecided, use art hydration Lucinda Carlisle NP [address], [address], [place], [address], [employer] [facility] 07/10/2023 14:42:38 07/17/2023 text/html This is a 68 yo man who is here for rehab after an ED visit for a fall with unknown cause. [place] says he [place]. Not sure why, thinks leg just goes out.He was brought to the [facility] ED on 07/05 after this fall.BP was 187/97, other vitals WNL.Labs and imaging were non-acute. CKD was baseline.Imaging was notable for old rib fxs at various stages of healing. No acute fxs.Also several chronic compression fxs. Also incidental finding of AAA (already known) which showed Infrarenal abdominal aortic aneurysm with moderate atherosclerosis which is noncalcified narrowing the lumen. This aneurysm measures up to 5.1 x 5.0 cm, and has been more recently evaluated also on angiography with similar size. There is moderate to severe atherosclerosis of the abdominal aorta with severe atherosclerosis of the bilateral iliac vessels. He was transferred here on 07/06. Since here he has been participating with rehab and doing well. He feels ready to go home and rehab agrees. His PMH includes HTN, CAD s/p LAD stenting in 2010 and restenosis in 2020 with PCI and 2 overlapping NIKKI (complicated by postprocedural embolic watershed strokes), PVD, AAA (5.2 cm), HLD, CKD stage 3, and schizoaffective disorder. Jennifer Alonso MD [address], [address], [place], [address], [facility] 07/17/2023 14:32:06 07/18/2023 text/html ROS as noted in the HPI Edward is seen for a discharge summary this am. His PMH includes HTN, CAD s/p LAD stenting in 2010 and restenosis in 2020 with PCI and 2 overlapping NIKKI (complicated by postprocedural embolic watershed strokes), PVD, AAA (5.2 cm), HLD, CKD stage 3, and schizoaffective disorder. Edward is a 68-year-old male with above pmh presented to [facility] ER after a fall at [facility] who then transferred to [facility] for continued care and rehab due to worsening hip pain. His hospital workup consisting of labs, xrays, and CT scan spine show no acute abnormalities. Labs show elevated creatinine of 1.7 at baseline with CKD and negative for anemia. There are subacute-appearing right-sided rib fractures of the right fourth through seventh ribs.These fractures are incompletely healed with persistent fracture lines and callus formation. Mild contusion injuries at the lower back. No formed hematoma. Ectasia approaching borderline for aneurysmal dilatation at the ascending aorta, up to maximum of 4.4 cm. Aneurysmal dilatation of the infrarenal abdominal aorta which is known and similar to the CT angiogram exam of May 26, 2023. This is increased in size from more remote exam of August 2021. Moderate atherosclerosis of the descending thoracic aorta. Since at [facility] he has been participating with rehab and doing well since 07/07/23. He feels ready to go home and rehab agrees today. His labs are stable and reviewed 07/16. On exam, Edward is seen walking with a cane and states he wants to go home now. He is in NAD. He is walking with quad cane and able to voice his needs and concerns. 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 OF NOTE: no dc summary medications came with pt. Pt meds reconciled with pcp visit medications noted on 06/15 and current meds ordered here (unsure where list came from). Pt denies taking flonase or senna and states he doesn't need that much trazodone and willing to stay on the 50 mg po bid. He will go home on the same meds prior to admission. EJ high fall risk BIMS MOLST: CPR, DNI, Transfer to hosp, use dailysis, art nut undecided, use art hydration Lucinda Wasilla, OLENA [address], [address], [place], [address], [facility] 07/18/2023 11:29:46
--- OUTSIDE RECORDS SUMMARY | 2025-01-19 11:42 | XMS_ITS | Clinical Summary ---
Author Organization [facility] Address [address] [place] [address] Phone Care Team Providers Care Radio Operator Name Role Phone Balaji Mayo MD Primary Care Provider + Balaji Mayo MD Unavailable [phone] Allergies Active Allergy Reactions Criticality Noted Date [...] 12/17/2012 ABDOMINAL AORTIC ANEURYSM (AAA) SCREENING 2021 INFLUENZA VACCINE (#1) 2024 , 03/04/2020, 01/29/2019, Additional history exists COVID-19 VACCINE ( season) 2024 Adult Td,Tdap Booster 08/03/2027 08/02/2017 RSV VACCINE [...] Insurance MEDICARE PART A & B [facility] MEDICARE REPLACEMENT MEDICARE PART A & B [facility] MEDICARE REPLACEMENT MEDICARE PART A & B MEDICARE PART A & B MEDICARE PART A & B MEDICARE REPLACEMENT [employer] [place] [id number] MEDICARE PART A & B MEDICARE PART A & B O MEDICARE REPLACEMENT [employer] [place] [id number] MEDICARE PART A & B Member Subscriber Plan / Payer (Ef fective 1996-Present) Name:Edward Rosa Member ID:[id number] Relation to Subscriber:Self Name:Edward Rosa Subscriber ID:[id number] Payer ID:[id number] Group ID:Not on file Type:Medicare Address: [employer] [address] MEDICARE REPLACEMENT [place] [id number] MEDICARE PART A & B [facility] MEDICARE [place] [place] [id number] [place] [place] [id number] MEDICARE REPLACEMENT [facility] MEDICARE [place] [place] [id number] MEDICARE REPLACEMENT [facility] MEDICARE REPLACEMENT [facility] MEDICARE REPLACEMENT Care Teams Radio Operator Relationship Specialty Start Date End Date Balaji Mayo MD [address] [place] [id number] PCP - General Family Medicine 10/23/23 Balaji Mayo MD [address] [place] [address] Family Medicine 10/23/23 Additional Source Comments The information contained in this document represents components of the legal health record. It is not the complete legal health record.[facility]
--- OUTSIDE RECORDS SUMMARY | 2025-01-19 11:42 | XMS_ITS | Encounter Summary ---
Author Organization [facility] Address [address] [place] [address] Phone Care Team Providers Care Manager Of Environmental Services Name Role Phone Balaji Mayo MD Primary Care Provider + Balaji Mayo MD Unavailable [phone] Encounter Details Date Type Department Care Team (Late st Contact Info) Description 11/28/2023 Procedure Pass [facility], Ct Scan - [facility] [address] [place] [address] Social History Tobacco Use Types Packs/Day Years [...] 11:41 PM EDT Eveline Toro RN * Sharon Suicide Severity Rating Scale (Screener/Recent Self-Report) Question [...] filedocumented in this encounter Care Teams Manager Of Environmental Services Relationship Specialty Start Date End Date Balaji Mayo MD [address] [place] [phone] PCP - General Family Medicine 10/23/23 Balaji Mayo MD [address] [place] [phone] Family Medicine 10/23/23 documented as of this encounter Additional Source Comments The information contained in this document represents components of the legal health record. It is not the complete legal health record.[facility]
--- OUTSIDE RECORDS SUMMARY | 2025-01-19 11:43 | XMS_ITS | Clinical Summary ---
Author Organization [facility] Address [address] [facility] [place], [place] [address] Phone Care Team Providers Care Medical Accounts Receivable Specialist Name Role Phone Balaji Mayo MD Primary Care Provider +1- [phone] Allergies No known active allergies Medications lamoTRIgine [...] or split. Active aspirin 81 mg EC tabletIndicatio ns:Chest pain, unspecified type Take 1 tablet (81 mg total) by mouth 1 (one) time each day. 30 each 11 4 025 Active metoprolol tartrate (LOPRESSOR) 25 mg tabletIndicatio ns:Coronary artery disease involving [place] coronary artery of [place] heart without angina pectoris TAKE ONE-HALF TABLET(12.5 MG) BY MOUTH TWICE DAILY 90 tablet 2 5 Active metoprolol tartrate (LOPRESSOR) 25 mg tabletIndicatio ns:Coronary artery disease involving [place] coronary artery of [place] heart without angina pectoris Take 0.5 tablets (12.5 mg total) by mouth 2 (two) times a day. 45 tablet 3 5 025 Discontinued Active Problems Problem Noted Date Diagnosed Date Coronary artery disease invo lving [place] coronary artery of [place] heart without angina pectoris 04/08/2024 Assessment & Plan (04/08/2024 12:40 PM EST): Patient has a history of coronary disease status post previous angioplasty. He has had no further anginal symptoms. Remains on medical management for risk factor modification. Discussed with him the signs and symptoms of progressive disease to contact us if they should occur. Atherosclerotic peripheral vascular disease (CMS /HCC V24) 04/08/2024 Assessment & Plan (04/08/2024 [...] Encounters Date Type Department Care Team Description 01/18/2025 Lab Requisition [facility] [address] [place] [phone] Radha Tyson MD Bipolar disorder, unspecified ([facility] V24, CMS/[facility] V28); Chronic kidney disease, unspecified 01/18/2025 Lab Requisition [facility] [address] [place] [phone] Radha Tyson MD Chronic kidney disease, unspecified; Bipolar disorder, unspecified (CMS/[facility] V24, CMS/[facility] V28) 01/12/2025 Lab Requisition [facility] [address] [place] [phone] Radha Tyson MD Chronic kidney disease, unspecified; Bipolar disorder, unspecified (CMS/HCC V24, CMS/HCC V28) 01/09/2025 Lab Requisition [facility] [address] [place] [phone] Radha Tyson MD Chronic kidney disease, stage 3b (CMS/HCC V24, CMS/HCC V28) 01/09/2025 Lab Requisition [facility] [address] [place] [phone] Radha Tyson MD Dysuria; Altered mental status, unspecified 01/05/2025 Lab Requisition [facility] [address] [place] [address] Radha Tyson MD Chronic kidney disease, unspecified; Bipolar disorder, unspecified ([facility] V24, [facility] V28) 12/30/2024 Lab Requisition [facility] Main Lab [address] [place] [address] Radha Tyson MD Chronic kidney disease, unspecified; Bipolar disorder, unspecified ([facility] V24, [facility] V28) 12/13/2024 Lab Requisition [facility] [address] [place] [address] Radha Tyson MD Essential (primary) hypertension 12/07/2024 Lab Requisition [facility] [address] [place] [address] Radha Tyson MD Essential (primary) hypertension 11/29/2024 Lab Requisition [facility] [address] [place] [address] Radha Tyson MD Essential (primary) hypertension 11/22/2024 Lab Requisition [facility] [address] [place] [address] Radha Tyson MD Essential (primary) hypertension 11/18/2024 Lab Requisition [facility] [address] [place] [address] Radha Tyson MD Essential (primary) hypertension from Last 3 Months Surgical History Surgery Date Site/Laterality Comments COLONOSCOPY 06/23/19 PROCEDURE: HISTORICAL COLONOSCOPY ESOPHAGOGASTRODUODENOSCOPY 06/23/19 PROCEDURE: CO ESOPHAGOGASTRODUODENOSCOPY TRANSORAL DIAGNOSTIC; COMMENT: and biopsy TURP / TRANSURETHRAL INCISIO N / DRAINAGE PROSTATE PROCEDURE: HISTORICAL TURP; COMMENT: TURP - Transurethral resection of prostate Medical History Medical History Date Comments Bipolar disorder ([facility] V2 4, [facility] V28) DX:Bipolar disorder (HCC) BPH (benign prostatic hyperplasia) DX:BPH (benign prostatic hyperplasia) Degenerative joint disease (DJD) of hip DX:Degenerative joint disease (DJD) of hip Gastroesophageal reflux disease DX:Gastroesophageal reflux disease Hyperglycemia DX:Hyperglycemia Nondependent cannabis abuse in remission DX:Nondependent cannabis abuse in remission Peripheral vascular disease ([facility] V24) DX:Peripheral vascular disease ([facility]) Pulmonary nodule DX:Pulmonary no dule Schizoaffective schizophreni a ([facility] V24, [facility] V28) DX:Schizoaffective schizophr enia (HCC) Stricture of artery ([facility] V24) DX:Stricture of artery ([facility]) Tobacco use DX:Tobacco use Tubular adenoma of colon DX:Tubu lar adenoma of colon CKD (chronic kidney disease) , stage III ([facility] V24, [facility] V28) DX:CKD (chronic kidney dise ase), stage III ([facility]) Degenerative joint disease (DJD) of hip DX:Degenerative [...] 04/02/2022 Social Influencers of Health Screening 04/02/2022 Depression Screening 04/24/2024 COVID-19 Vaccine ( season) 2024 02/17/2021, 07/09/2020, 06/18/2020 Influenza Vaccine (#1) 2024 , 03/30/2023, 01/28/2023, Additional history exists Hypertension/CHF/CAD Annual BMP Blood Test 01/13/2026 01/13/2025, 01/06/2025, 12/30/2024, Additional history exists DTaP,Tdap,and Td Vaccines (2 [...] Associated Diagnosis Comments COMPLETE BLOOD COUNT Routine 01/13/2025 8:13 AM EDT Chronic kidney disease, unspecified Bipolar disorder, unspecified (CMS/HCC V24, CMS/HCC V28) BASIC METABOLIC PANEL Routine 01/13/2025 8:13 AM EDT Chronic kidney disease, unspecified Bipolar disorder, unspecified (CMS/HCC V24, CMS/HCC V28) URINALYSIS WITH REFLEX MICROSCOPIC Routine 01/09/2025 5:00 AM EDT Dysuria Altered mental status, unspecified URINALYSIS WITH REFLEX MICROSCOPIC Routine 01/09/2025 5:00 AM EDT Dysuria Altered mental status, unspecified CULTURE URINE Routine 01/09/2025 5:00 AM EDT Dysuria Altered mental status, unspecified COMPLETE BLOOD COUNT Routine 01/06/2025 8:31 AM EDT Chronic kidney disease, unspecified Bipolar disorder, unspecified (CMS/HCC V24, CMS/HCC V28) BASIC METABOLIC PANEL Routine 01/06/2025 8:31 AM EDT Chronic kidney disease, unspecified Bipolar disorder, unspecified (CMS/HCC V24, CMS/HCC V28) COMPREHENSIVE METABOLIC PANEL Routine 12/30/2024 9:37 AM EDT Chronic kidney disease, unspecified Bipolar disorder, unspecified (CMS/HCC V24, CMS/HCC V28) COMPLETE BLOOD COUNT Routine 12/30/2024 9:37 AM EDT Chronic kidney disease, unspecified Bipolar disorder, unspecified (CMS/HCC V24, CMS/HCC V28) BASIC METABOLIC PANEL Routine 12/16/2024 5:54 AM [...] Months Results * (ABNORMAL) Complete blood count (01/13/2025 8:13 AM EDT) Only the most recent of8 resultswithin the time period is included. WBC 10.7 4.8 - 10.8 K/mcL LAB HEMETOLOGY METHOD 01/13/2025 12:17 PM [facility] LAB RBC 4.10(L) 4.50 - 5.50 M/mcL LAB HEMETOLOGY METHOD 01/13/2025 12:17 PM [facility] LAB Hemoglobin 11.6(L) 13.5 - 17.5 g/dL LAB HEMETOLOGY METHOD 01/13/2025 12:17 PM [facility] LAB Hematocrit 37.0(L) 42.0 - 54.0 % LAB HEMETOLOGY METHOD 01/13/2025 12:17 PM [facility] LAB MCV 90.9 79.0 - 98.0 FL LAB HEMETOLOGY METHOD 01/13/2025 12:17 PM EDT [facility] LAB MCH 28.5 27.0 - 32.0 pcg LAB HEMETOLOGY METHOD 01/13/2025 12:17 PM EDT [facility] LAB MCHC 31.4(L) 32.0 - 37.0 g/dL LAB HEMETOLOGY METHOD 01/13/2025 12:17 PM EDT [facility] LAB RDW 15.0 11.0 - 15.0 % LAB HEMETOLOGY METHOD 01/13/2025 12:17 PM EDT [facility] LAB Platelets 326 130 - 400 K/mcL LAB HEMETOLOGY METHOD 01/13/2025 12:17 PM EDT [facility] LAB MPV 11.6(H) 7.0 - 11.0 FL LAB HEMETOLOGY METHOD 01/13/2025 12:17 PM EDT [facility] NRBC 0.0 <1.0 % LAB HEMETOLOGY METHOD 01/13/2025 12:17 PM EDT [facility] LAB NRBC Absolute 0.00 <0.10 K/mcL LAB HEMETOLOGY METHOD 01/13/2025 12:17 PM T [facility] LAB Blood Venous blood specimen / Unknown Venipuncture / Unknown 01/13/2025 8:13 AM EDT 01/13/2025 10:56 AM EDT us Radha Tyson MD LAB BLOOD ORDERABLES Fin al Result [facility] [address] [place] [address], * (ABNORMAL) Basic metabolic panel (01/13/2025 8:13 AM EDT) Only the most recent of7 resultswithin the time period is included. Sodium 140 133 - 145 mmol/L LAB CHEMISTRY METHOD 01/13/2025 12:30 PM EDT [facility] LAB Potassium 4.2 3.5 - 5.5 mmol/L LAB CHEMISTRY METHOD 01/13/2025 12:30 PM [facility] LAB Chloride 106 96 - 110 mmol/L LAB CHEMISTRY METHOD 01/13/2025 12:30 PM [facility] LAB CO2 25 21 - 32 mmol/L LAB CHEMISTRY METHOD 01/13/2025 12:30 PM [facility] LAB Anion Gap 9 3 - 11 LAB CHEMISTRY METHOD 01/13/2025 12:30 PM [facility] LAB Glucose 124(H) 70 - 100 mg/dL LAB CHEMISTRY METHOD 01/13/2025 12:30 PM [facility] LAB BUN 31(H) 5 - 25 mg/dL LAB CHEMISTRY METHOD 01/13/2025 12:30 PM [facility] LAB Creatinine 2.77(H) 0.70 - 1.30 mg/dL LAB CHEMISTRY METHOD 01/13/2025 12:30 PM [facility] LAB eGFR 24(L) >=60 mL/min/1. 73m2 LAB CHEMISTRY METHOD 01/13/2025 12:30 PM [facility] LAB Comment:Calculation based on the Chronic Kidney Disease Epidemiology Collaboration (CKD-EPI) equation refit without adjustment for race. BUN/Creatinine Ratio 11.2 LAB CHEMISTRY METHOD 01/13/2025 12:30 PM [facility] LAB Calcium 9.1 8.5 - 10.5 mg/dL LAB CHEMISTRY METHOD 01/13/2025 12:30 PM [facility] LAB Blood Venous blood specimen / Unknown Venipuncture / Unknown 01/13/2025 8:13 AM EDT 01/13/2025 12:05 PM EDT us Radha Tyson MD LAB BLOOD ORDERABLES Fin al Result [facility] [address] [place] [address], * Urinalysis with reflex microscopic (01/09/2025 5:00 AM EDT) Specific [place] Urine 1.011 1.003 - 1.030 LAB URINALYSIS - AUTOMATED METHOD 01/09/2025 9:10 AM [facility] LAB pH, Urine 6.0 5.0 - 8.0 pH LAB URINALYSIS - AUTOMATED METHOD 01/09/2025 9:10 AM [facility] LAB Leukocytes, Urine Negative Negative LAB URINALYSIS - AUTOMATED METHOD 01/09/2025 9:10 AM [facility] LAB Nitrite, Urine Negative Negative LAB URINALYSIS - AUTOMATED METHOD 01/09/2025 9:10 AM [facility] LAB Protein, Urine Negative <=Trace mg/dL LAB URINALYSIS - AUTOMATED METHOD 01/09/2025 9:10 AM [facility] LAB Glucose, Urine Negative Negative mg/dL LAB URINALYSIS - AUTOMATED METHOD 01/09/2025 9:10 AM [facility] LAB Ketones, Urine Negative Negative mg/dL LAB URINALYSIS - AUTOMATED METHOD 01/09/2025 9:10 AM [facility] LAB Urobilinogen, Urine 0.2 0.2 - 1.0 mg/dL LAB URINALYSIS - AUTOMATED METHOD 01/09/2025 9:10 AM [facility] LAB Bilirubin, Urine Negative Negative LAB URINALYSIS - AUTOMATED METHOD 01/09/2025 9:10 AM [facility] LAB Blood, Urine Negative Negative LAB URINALYSIS - AUTOMATED METHOD 01/09/2025 9:10 AM [facility] LAB Urine Urine specimen obtained by clean catch procedure / Unknown Non-blood Collection / Unknown 01/09/2025 5:00 AM EDT 01/09/2025 8:19 AM EDT Radha Tyson MD LAB URINE ORDERABLES Fin al Result [facility] [address] [place] [address], [place] [phone] * (ABNORMAL) Culture urine (01/09/2025 5:00 AM EDT) [facility] Culture, Urine 10,000-49,000 CFU/mL Staphylococcus epidermidis(A) WHITNEY 01/12/2025 9:24 AM EDT [facility] Comment: The organism value for this result has been updated. These results have been appended to the previously preliminary verified report. Edited result: Previously reported as Gram Positive Cocci on 01/11/2025 at 1319 EDT. Urine Urine specimen obtained by clean catch procedure / Unknown Non-blood Collection / Unknown 01/09/2025 5:00 AM EDT 01/09/2025 8:19 AM EDT Narrative Organism Antibiotic Method Susceptibility Staphylococcus epidermidis Benzylpenicillin [place]ITNEY >=0.5 ug/ml: Resistant Staphylococcus epidermidis Oxacillin [place]NEY >=4 ug/ml: Resistant Staphylococcus epidermidis Gentamicin WHITNEY <=0.5 ug/ml: Susceptible Staphylococcus epidermidis Ciprofloxacin WHITNEY <=0.5 ug/ml: Susceptible Staphylococcus epidermidis Levofloxacin WHITNEY <=0.12 ug/ml: Susceptible Staphylococcus epidermidis Quinupristin/Dalfopristin M IC <=0.25 ug/ml: Susceptible Staphylococcus epidermidis Linezolid WHITNEY 1 ug/ml: Susceptible Staphylococcus epidermidis Vancomycin WHITNEY 2 ug/ml: Susceptible Staphylococcus epidermidis Tetracycline WHITNEY >=16 ug/ml: Resistant Staphylococcus epidermidis Nitrofurantoin WH[place]NEY <=16 ug/ml: Susceptible Staphylococcus epidermidis Rifampin WHITNEY <=0.5 ug/ml: Susceptible Radha Tyson MD LAB MICROBIOLOGY - GENER AL ORDERABLES Final Result [facility] [address] [place] [address], [place] [phone] * (ABNORMAL) Comprehensive metabolic panel (12/30/2024 9:37 AM EDT) Sodium 138 133 - 145 mmol/L LAB CHEMISTRY METHOD 12/30/2024 2:58 PM [facility] LAB Potassium 3.9 3.5 - 5.5 mmol/L LAB CHEMISTRY METHOD 12/30/2024 2:58 PM [facility] LAB Chloride 107 96 - 110 mmol/L LAB CHEMISTRY METHOD 12/30/2024 2:58 PM [facility] LAB CO2 25 21 - 32 mmol/L LAB CHEMISTRY METHOD 12/30/2024 2:58 PM [facility] LAB Anion Gap 6 3 - 11 LAB CHEMISTRY METHOD 12/30/2024 2:58 PM [facility] LAB Glucose 94 70 - 100 mg/dL LAB CHEMISTRY METHOD 12/30/2024 2:58 PM [facility] LAB BUN 25 5 - 25 mg/dL LAB CHEMISTRY METHOD 12/30/2024 2:58 PM [facility] LAB Creatinine 2.21(H) 0.70 - 1.30 mg/dL LAB CHEMISTRY METHOD 12/30/2024 2:58 PM [facility] LAB eGFR 32(L) >=60 mL/min/1. 73m2 LAB CHEMISTRY METHOD 12/30/2024 2:58 PM [facility] LAB Comment:Calculation based on the Chronic Kidney Disease Epidemiology Collaboration (CKD-EPI) equation refit without adjustment for race. BUN/Creatinine Ratio 11.3 LAB CHEMISTRY METHOD 12/30/2024 2:58 PM [facility] LAB Calcium 8.8 8.5 - 10.5 mg/dL LAB CHEMISTRY METHOD 12/30/2024 2:58 PM [facility] LAB AST (SGOT) 21 10 - 42 unit/L LAB CHEMISTRY METHOD 12/30/2024 2:58 PM [facility] LAB ALT (SGPT) 18 10 - 60 unit/L LAB CHEMISTRY METHOD 12/30/2024 2:58 PM EDT [facility] Alkaline Phosphatase 122(H) 42 - 121 unit/L LAB CHEMISTRY METHOD 12/30/2024 2:58 PM EDT [facility] Total Protein 6.6 6.0 - 8.0 g/dL LAB CHEMISTRY METHOD 12/30/2024 2:58 PM EDT [facility] Albumin 2.6(L) 3.2 - 5.0 g/dL LAB CHEMISTRY METHOD 12/30/2024 2:58 PM EDT [facility] Total Bilirubin 0.4 0.0 - 1.4 mg/dL LAB CHEMISTRY METHOD 12/30/2024 2:58 PM EDT [facility] Blood Venous blood specimen / Unknown Venipuncture / Unknown 12/30/2024 9:37 AM EDT 12/30/2024 12:04 PM EDT us Radha Tyson MD LAB BLOOD ORDERABLES Fin al Result [facility] [address] [place] [address], from Last 3 Months Insurance [facility] MEDICARE Member Subscriber Plan / Payer (Ef fective 2023-Present) Name:EDWARD NAGY Relation to Subscriber:Self Name:Edward Nagy Payer ID:[id number] Group ID:[id number] Type:Not on file Address: [place] [address] [address] [id number] Care Teams Medical Accounts Receivable Specialist Relationship Specialty Start Date End Date Balaji Mayo MD [address] [place] [address] [address] [place] [address] PCP - General Internal Medicine 06/04/20
--- OUTSIDE RECORDS SUMMARY | 2025-01-19 11:43 | XMS_ITS | Encounter Summary ---
Author Organization [facility] Address [address] [place] [address] Care Team Providers Care Biochemical Development Engineer Name Role Phone Balaji Mayo MD Primary Care Provider +1- [phone] Encounter Details Date Type Department Care Team (Late st Contact Info) Description 01/18/2025 Lab Requisition [facility] - Main Lab [address] [facility] [address] Radha Tyson MD [address] [address] Bipolar disorder, unspecified (CMS/[facility] V24, CMS/[facility] V28); Chronic kidney disease, unspecified Social History Tobacco Use Types Packs/Day Years [...] as of this encounter Plan of Treatment Scheduled Orders Name Type Priority Associated Diagnoses Orde r Schedule Ammonia Lab Routine Bipolar disorder, unspecified (CMS/[facility] V24, CMS/[facility] V28) Chronic kidney disease, unspecified Ordered: 01/18/2025 Lamotrigine level Lab Routine Bipolar disorder, unspecified (CMS/HCC V24, CMS/[facility] V28) Chronic kidney disease, unspecified Ordered: 01/18/2025 documented as of this encounter Visit Diagnoses Diagnosis Bipolar disorder, unspecified (CMS/[facility] V24, CMS/[facility] V28) Bipolar disorder, unspecified Chronic kidney disease, unspecified documented in this encounter Care Teams Biochemical Development Engineer Relationship Specialty Start Date End Date Balaji Mayo MD [facility] [address] [place] [phone] PCP - General Internal Medicine 06/04/20 documented as of this encounter
--- OUTSIDE RECORDS SUMMARY | 2025-01-19 11:43 | XMS_ITS | Encounter Summary ---
Author Organization [facility], Address [address] [place] [address] Phone Care Team Providers Care Operator Maintainer Name Role Phone Balaji Mayo MD Primary Care Provider +1- [phone] Encounter Details Date Type Department Care Team (Late st Contact Info) Description 07/25/2023 Documentation Only [facility], [address] [place] [address] [address]ma Rom[address] [place] [address] Social History Tobacco Use Types [...] on filedocumented in this encounter Care Teams Operator Maintainer Relationship Specialty Start Date End Date Balaji Mayo MD [address] [place] [phone] PCP - General Family Medicine 06/06/22 documented as of this encounter
--- OUTSIDE RECORDS SUMMARY | 2025-01-19 11:43 | XMS_ITS | Encounter Summary ---
Author Organization [facility] Address [address] [place] [address] Care Team Providers Care Surtass Analyst Name Role Phone Balaji Mayo MD Primary Care Provider +1- [phone] Encounter Details Date Type Department Care Team (Late st Contact Info) Description 01/12/2025 Lab Requisition [facility] - Main Lab [address] [facility] [place] [address] Radha Tyson MD [address] [address] Chronic kidney disease, unspecified; Bipolar disorder, unspecified (CMS/HCC V24, CMS/HCC V28) Social History Tobacco Use Types Packs/Day Years [...] Bipolar disorder, unspecified (CMS/HCC V24, CMS/HCC V28) documented in this encounter Results * (ABNORMAL) Complete blood count (01/13/2025 8:13 AM EDT) WBC 10.7 4.8 - 10.8 K/mcL LAB HEMETOLOGY METHOD 01/13/2025 12:17 PM [facility] LAB RBC 4.10(L) 4.50 - 5.50 M/mcL LAB HEMETOLOGY METHOD 01/13/2025 12:17 PM [facility] LAB Hemoglobin 11.6(L) 13.5 - 17.5 g/dL LAB HEMETOLOGY METHOD 01/13/2025 12:17 PM [facility] LAB Hematocrit 37.0(L) 42.0 - 54.0 % LAB HEMETOLOGY METHOD 01/13/2025 12:17 PM [facility] LAB MCV 90.9 79.0 - 98.0 FL LAB HEMETOLOGY METHOD 01/13/2025 12:17 PM [facility] LAB MCH 28.5 27.0 - 32.0 pcg LAB HEMETOLOGY METHOD 01/13/2025 12:17 PM [facility] LAB MCHC 31.4(L) 32.0 - 37.0 g/dL LAB HEMETOLOGY METHOD 01/13/2025 12:17 PM [facility] LAB RDW 15.0 11.0 - 15.0 % LAB HEMETOLOGY METHOD 01/13/2025 12:17 PM [facility] LAB Platelets 326 130 - 400 K/mcL LAB HEMETOLOGY METHOD 01/13/2025 12:17 PM [facility] LAB MPV 11.6(H) 7.0 - 11.0 FL LAB HEMETOLOGY METHOD 01/13/2025 12:17 PM [facility] LAB NRBC 0.0 <1.0 % LAB HEMETOLOGY METHOD 01/13/2025 12:17 PM EDT [facility] LAB NRBC Absolute 0.00 <0.10 K/mcL LAB HEMETOLOGY METHOD 01/13/2025 12:17 PM [facility] Blood Venous blood specimen / Unknown Venipuncture / Unknown 01/13/2025 8:13 AM EDT 01/13/2025 10:56 AM EDT us Radha Tyson MD LAB BLOOD ORDERABLES Fin al Result [facility] [address] [place] [address], * (ABNORMAL) Basic metabolic panel (01/13/2025 8:13 AM EDT) Sodium 140 133 - 145 mmol/L LAB CHEMISTRY METHOD 01/13/2025 12:30 PM [facility] Potassium 4.2 3.5 - 5.5 mmol/L LAB CHEMISTRY METHOD 01/13/2025 12:30 PM [facility] Chloride 106 96 - 110 mmol/L LAB CHEMISTRY METHOD 01/13/2025 12:30 PM [facility] CO2 25 21 - 32 mmol/L LAB CHEMISTRY METHOD 01/13/2025 12:30 PM [facility] LAB Anion Gap 9 3 - 11 LAB CHEMISTRY METHOD 01/13/2025 12:30 PM [facility] Glucose 124(H) 70 - 100 mg/dL LAB CHEMISTRY METHOD 01/13/2025 12:30 PM [facility] BUN 31(H) 5 - 25 mg/dL LAB CHEMISTRY METHOD 01/13/2025 12:30 PM [facility] Creatinine 2.77(H) 0.70 - 1.30 mg/dL LAB CHEMISTRY METHOD 01/13/2025 12:30 PM [facility] LAB eGFR 24(L) >=60 mL/min/1. 73m2 LAB CHEMISTRY METHOD 01/13/2025 12:30 PM EDT [facility] Comment:Calculation based on the Chronic Kidney Disease Epidemiology Collaboration (CKD-EPI) equation refit without adjustment for race. BUN/Creatinine Ratio 11.2 LAB CHEMISTRY METHOD 01/13/2025 12:30 PM EDT [facility] Calcium 9.1 8.5 - 10.5 mg/dL LAB CHEMISTRY METHOD 01/13/2025 12:30 PM EDT [facility] Blood Venous blood specimen / Unknown Venipuncture / Unknown 01/13/2025 8:13 AM EDT 01/13/2025 12:05 PM EDT us Radha Tyson MD LAB BLOOD ORDERABLES Fin al Result [facility] [address] [place] [address], documented in this encounter Visit Diagnoses Diagnosis Chronic kidney disease, unspecified Bipolar disorder, unspecified (CMS/HCC V24, CMS/HCC V28) Bipolar disorder, unspecified documented in this encounter Care Teams Surtass Analyst Relationship Specialty Start Date End Date Balaji Mayo MD [address] [place] [phone] PCP - General Internal Medicine 06/04/20 documented as of this encounter
--- OUTSIDE RECORDS SUMMARY | 2025-01-19 11:43 | XMS_ITS | Encounter Summary ---
Author Organization [facility] Address [address] [place] [address] Care Team Providers Care Induction Coordination Power Engineer Name Role Phone Balaji Mayo MD Primary Care Provider +1- [phone] Encounter Details Date Type Department Care Team (Late st Contact Info) Description 12/07/2024 Lab Requisition [facility] - Main Lab [address] [facility] [place] [address] Radha Tyson MD [address] [address] Essential (primary) hypertension Social History Tobacco Use [...] mmol/L LAB CHEMISTRY METHOD 12/09/2024 9:19 AM [facility] Potassium 4.3 3.5 - 5.5 mmol/L LAB CHEMISTRY METHOD 12/09/2024 9:19 AM [facility] Chloride 109 96 - 110 mmol/L LAB CHEMISTRY METHOD 12/09/2024 9:19 AM [facility] CO2 24 21 - 32 mmol/L LAB CHEMISTRY METHOD 12/09/2024 9:19 AM [facility] Anion Gap 7 3 - 11 LAB CHEMISTRY METHOD 12/09/2024 9:19 AM [facility] Glucose 96 70 - 100 mg/dL LAB CHEMISTRY METHOD 12/09/2024 9:19 AM [facility] BUN 31(H) 5 - 25 mg/dL LAB CHEMISTRY METHOD 12/09/2024 9:19 AM [facility] Creatinine 2.69(H) 0.70 - 1.30 mg/dL LAB CHEMISTRY METHOD 12/09/2024 9:19 AM [facility] eGFR 25(L) >=60 mL/min/1. 73m2 LAB CHEMISTRY METHOD 12/09/2024 9:19 AM [facility] Comment:Calculation based on the Chronic Kidney Disease Epidemiology Collaboration (CKD-EPI) equation refit without adjustment for race. BUN/Creatinine Ratio 11.5 LAB CHEMISTRY METHOD 12/09/2024 9:19 AM [facility] Calcium 9.1 8.5 - 10.5 mg/dL LAB CHEMISTRY METHOD 12/09/2024 9:19 AM [facility] Blood Venous blood specimen / Unknown Venipuncture / Unknown 12/09/2024 5:52 AM EDT 12/09/2024 8:27 AM EDT us Radha Tyson MD LAB BLOOD ORDERABLES Fin al Result [facility] [address] [place] [address], * (ABNORMAL) Complete blood count (12/09/2024 5:52 AM EDT) [facility] WBC 10.4 4.8 - 10.8 K/mcL LAB HEMETOLOGY METHOD 12/09/2024 8:44 AM EDT [facility] RBC 4.40(L) 4.50 - 5.50 M/mcL LAB HEMETOLOGY METHOD 12/09/2024 8:44 AM EDT [facility] Hemoglobin 12.6(L) 13.5 - 17.5 g/dL LAB HEMETOLOGY METHOD 12/09/2024 8:44 AM EDT [facility] Hematocrit 40.0(L) 42.0 - 54.0 % LAB HEMETOLOGY METHOD 12/09/2024 8:44 AM EDT [facility] MCV 90.1 79.0 - 98.0 FL LAB HEMETOLOGY METHOD 12/09/2024 8:44 AM EDT [facility] MCH 28.4 27.0 - 32.0 pcg LAB HEMETOLOGY METHOD 12/09/2024 8:44 AM EDT [facility] MCHC 31.5(L) 32.0 - 37.0 g/dL LAB HEMETOLOGY METHOD 12/09/2024 8:44 AM EDT [facility] RDW 14.6 11.0 - 15.0 % LAB HEMETOLOGY METHOD 12/09/2024 8:44 AM EDT [facility] Platelets 234 130 - 400 K/mcL LAB HEMETOLOGY METHOD 12/09/2024 8:44 AM EDT [facility] MPV 11.4(H) 7.0 - 11.0 FL LAB HEMETOLOGY METHOD 12/09/2024 8:44 AM EDT [facility] NRBC 0.0 <1.0 % LAB HEMETOLOGY METHOD 12/09/2024 8:44 AM EDT [facility] NRBC Absolute 0.00 <0.10 K/mcL LAB HEMETOLOGY METHOD 12/09/2024 8:44 AM EDT [facility] Blood Venous blood specimen / Unknown Venipuncture / Unknown 12/09/2024 5:52 AM EDT 12/09/2024 8:27 AM EDT us Radha Tyson MD LAB BLOOD ORDERABLES Fin al Result [facility] [address] [place] [address], documented in this encounter Visit Diagnoses Diagnosis Essential (primary) hypertension Unspecified essential hypertension documented in this encounter Care Teams Induction Coordination Power Engineer Relationship Specialty Start Date End Date Balaji Mayo MD [facility] [address] [place] [phone] PCP - General Internal Medicine 06/04/20 documented as of this encounter
--- OUTSIDE RECORDS SUMMARY | 2025-01-19 11:43 | XMS_ITS | Encounter Summary ---
Author Organization [facility], Address [address] [place] [address] Phone Care Team Providers Care Coffee Attendant Name Role Phone Balaji Mayo MD Primary Care Provider +1- [phone] Encounter Details Date Type Department Care Team (Late st Contact Info) Description 07/29/2024 Documentation Only [facility], [address] [place] [address] [place] [address] [place] [address] Social History Tobacco Use Types [...] on filedocumented in this encounter Care Teams Coffee Attendant Relationship Specialty Start Date End Date Balaji Mayo MD [address] [place] [phone] PCP - General Family Medicine 06/06/22 documented as of this encounter
--- OUTSIDE RECORDS SUMMARY | 2025-01-19 11:43 | XMS_ITS | Encounter Summary ---
Author Organization [facility], Address [address] [place] [address] Phone Care Team Providers Care Cement Truck Loader Name Role Phone Balaji Mayo MD Primary Care Provider +1- [phone] Encounter Details Date Type Department Care Team (Late st Contact Info) Description 10/03/2023 Office Communication [facility], - [place] [address] [place] [address] Tab Piña MD [address] [place] [address] [place] [phone] Social History Tobacco Use Types Packs/Day Years [...] on filedocumented in this encounter Care Teams Cement Truck Loader Relationship Specialty Start Date End Date Balaji Mayo MD [address] [facility] [place] [phone] PCP - General Family Medicine 06/06/22 documented as of this encounter
--- OUTSIDE RECORDS SUMMARY | 2025-01-19 11:43 | XMS_ITS | Encounter Summary ---
Author Organization [facility], Address [address] [place] [address] Phone Care Team Providers Care Transport Nurse Name Role Phone Balaji Mayo MD Primary Care Provider +1- [phone] Encounter Details Date Type Department Care Team (Late st Contact Info) Description 07/29/2024 Documentation Only [facility], [address] [place] [address] [place] [address] [place] [address] Social History Tobacco Use Types [...] on filedocumented in this encounter Care Teams Transport Nurse Relationship Specialty Start Date End Date Balaji Mayo MD [address] [place] [phone] PCP - General Family Medicine 06/06/22 documented as of this encounter
--- OUTSIDE RECORDS SUMMARY | 2025-01-19 11:43 | XMS_ITS | Encounter Summary ---
Author Organization [facility] Address [address] [place] [address] Care Team Providers Care Elevator Worker Name Role Phone Balaji Mayo MD Primary Care Provider +1- [phone] Encounter Details Date Type Department Care Team (Late st Contact Info) Description 01/18/2025 Lab Requisition [facility] - Main Lab 299 [facility] [place] [place] [address] Radha Tyson MD [address] [address] Chronic kidney disease, unspecified; Bipolar disorder, unspecified (CMS/HCC V24, CMS/[facility] V28) Social History Tobacco Use Types Packs/Day [...] Type Priority Associated Diagnoses Orde r Schedule Basic metabolic panel Lab Routine Chronic kidney disease, unspecified Bipolar disorder, unspecified (CMS/HCC V24, CMS/HCC V28) Ordered: 01/18/2025 Complete blood count Lab Routine Chronic kidney disease, unspecified Bipolar disorder, unspecified (CMS/HCC V24, CMS/HCC V28) Ordered: 01/18/2025 documented as of this encounter Visit Diagnoses Diagnosis Chronic kidney disease, unspecified Bipolar disorder, unspecified (CMS/HCC V24, CMS/[facility] V28) Bipolar disorder, unspecified documented in this encounter Care Teams Elevator Worker Relationship Specialty Start Date End Date Balaji Mayo MD [facility] [address] [place] [phone] PCP - General Internal Medicine 06/04/20 documented as of this encounter
--- OUTSIDE RECORDS SUMMARY | 2025-01-19 11:43 | XMS_ITS | Encounter Summary ---
Author Organization [facility], Address [address] [place] [address] Phone Care Team Providers Care Aviation Project Manager Name Role Phone Balaji Mayo MD Primary Care Provider +1- [phone] Encounter Details Date Type Department Care Team (Late st Contact Info) Description 07/29/2024 Documentation Only [facility], [address] [place] [address] [place] [address] [place] [address] Social History Tobacco Use Types [...] on filedocumented in this encounter Care Teams Aviation Project Manager Relationship Specialty Start Date End Date Balaji Mayo MD [address] [place] [phone] PCP - General Family Medicine 06/06/22 documented as of this encounter
--- OUTSIDE RECORDS SUMMARY | 2025-01-19 11:43 | XMS_ITS | Encounter Summary ---
Author Organization [facility], Address [address] [place] [address] Phone Care Team Providers Care Orthotic Finish Grinding Technician Name Role Phone Balaji Mayo MD Primary Care Provider +1- [phone] Encounter Details Date Type Department Care Team (Late st Contact Info) Description 07/29/2024 Documentation Only [facility], [address] [place] [address] [place] [address] [place] [address] Social History Tobacco Use Types [...] on filedocumented in this encounter Care Teams Orthotic Finish Grinding Technician Relationship Specialty Start Date End Date Balaji Mayo MD [address] [place] [phone] PCP - General Family Medicine 06/06/22 documented as of this encounter
--- OUTSIDE RECORDS SUMMARY | 2025-01-19 11:43 | XMS_ITS | Encounter Summary ---
Author Organization [facility], Address [address] [place] [address] Phone Care Team Providers Care City Solicitor Name Role Phone Balaji Mayo MD Primary Care Provider +1- [phone] Encounter Details Date Type Department Care Team (Late st Contact Info) Description 07/29/2024 Documentation Only [facility], [address] [place] [address] [place] [address] [place] [address] Social History Tobacco Use Types [...] on filedocumented in this encounter Care Teams City Solicitor Relationship Specialty Start Date End Date Balaji Mayo MD [address] [place] [phone] PCP - General Family Medicine 06/06/22 documented as of this encounter
--- OUTSIDE RECORDS SUMMARY | 2025-01-19 11:43 | XMS_ITS | Encounter Summary ---
Author Organization [facility], Address [address] [place] [address] Phone Care Team Providers Care Academic Support Director Name Role Phone Balaji Mayo MD Primary Care Provider +1- [phone] Encounter Details Date Type Department Care Team (Late st Contact Info) Description 07/29/2024 Documentation Only [facility], [address] [place] [address] [place] [address] [place] [address] Social History Tobacco Use Types [...] on filedocumented in this encounter Care Teams Academic Support Director Relationship Specialty Start Date End Date Balaji Mayo MD [address] [place] [phone] PCP - General Family Medicine 06/06/22 documented as of this encounter
--- OUTSIDE RECORDS SUMMARY | 2025-01-19 11:43 | XMS_ITS | Clinical Summary ---
Author Organization [facility], Address [address] [facility] [address] [place] [address] Phone Care Team Providers Care Firmware Software Verification Engineer Name Role Phone Balaji Mayo MD Primary Care Provider +1- [phone] Allergies Active Allergy Reactions Criticality Noted Date [...] vascular. Immunizations Immunization Administration Dates Next Due EUDOWEB SARS-COV-2 02/17/2021,07/09/2020,06/18/19 21 Social History Tobacco Use [...] on patient's age to complete this topic Insurance Medicaid [place] [facility] Dual SNP ([id number]) Care Teams Firmware Software Verification Engineer Relationship Specialty Start Date End Date Balaji Mayo MD [facility] [address] [place] [address] PCP - General Family Medicine 06/06/22
--- OUTSIDE RECORDS SUMMARY | 2025-01-19 11:43 | XMS_ITS | Encounter Summary ---
Author Organization [facility] Address [address] [place] [address] Care Team Providers Care Metal Tank Builder Name Role Phone Balaji Mayo MD Primary Care Provider +1- [phone] Encounter Details Date Type Department Care Team (Late st Contact Info) Description 11/29/2024 Lab Requisition [facility] - Main Lab [address] [facility] [place] [address] Radha Tyson MD [address] [address] Essential (primary) hypertension Social History Tobacco Use [...] mmol/L LAB CHEMISTRY METHOD 12/02/2024 12:39 PM [facility] Potassium 4.3 3.5 - 5.5 mmol/L LAB CHEMISTRY METHOD 12/02/2024 12:39 PM [facility] Chloride 106 96 - 110 mmol/L LAB CHEMISTRY METHOD 12/02/2024 12:39 PM [facility] CO2 25 21 - 32 mmol/L LAB CHEMISTRY METHOD 12/02/2024 12:39 PM [facility] Anion Gap 6 3 - 11 LAB CHEMISTRY METHOD 12/02/2024 12:39 PM [facility] Glucose 71 70 - 100 mg/dL LAB CHEMISTRY METHOD 12/02/2024 12:39 PM [facility] BUN 30(H) 5 - 25 mg/dL LAB CHEMISTRY METHOD 12/02/2024 12:39 PM [facility] Creatinine 2.53(H) 0.70 - 1.30 mg/dL LAB CHEMISTRY METHOD 12/02/2024 12:39 PM [facility] eGFR 27(L) >=60 mL/min/1. 73m2 LAB CHEMISTRY METHOD 12/02/2024 12:39 PM [facility] Comment:Calculation based on the Chronic Kidney Disease Epidemiology Collaboration (CKD-EPI) equation refit without adjustment for race. BUN/Creatinine Ratio 11.9 LAB CHEMISTRY METHOD 12/02/2024 12:39 PM [facility] Calcium 8.9 8.5 - 10.5 mg/dL LAB CHEMISTRY METHOD 12/02/2024 12:39 PM [facility] Blood Venous blood specimen / Unknown Venipuncture / Unknown 12/02/2024 6:09 AM EDT 12/02/2024 11:52 AM EDT us Radha Tyson MD LAB BLOOD ORDERABLES Fin al Result [facility] [address] [place] [address], * (ABNORMAL) Complete blood count (12/02/2024 6:09 AM EDT) [facility] WBC 10.5 4.8 - 10.8 K/mcL LAB HEMETOLOGY METHOD 12/02/2024 12:43 PM EDT [facility] RBC 4.40(L) 4.50 - 5.50 M/mcL LAB HEMETOLOGY METHOD 12/02/2024 12:43 PM EDT [facility] Hemoglobin 12.7(L) 13.5 - 17.5 g/dL LAB HEMETOLOGY METHOD 12/02/2024 12:43 PM EDT [facility] Hematocrit 39.6(L) 42.0 - 54.0 % LAB HEMETOLOGY METHOD 12/02/2024 12:43 PM EDT [facility] MCV 90.0 79.0 - 98.0 FL LAB HEMETOLOGY METHOD 12/02/2024 12:43 PM EDT [facility] MCH 28.9 27.0 - 32.0 pcg LAB HEMETOLOGY METHOD 12/02[facility]24 [facility] MCHC 32.1 32.0 - 37.0 g/dL LAB HEMETOLOGY METHOD 12/02/2024 12:43 PM EDT [facility] RDW 14.6 11.0 - 15.0 % LAB HEMETOLOGY METHOD 12/02/2024 12:43 PM EDT [facility] Platelets 237 130 - 400 K/mcL LAB HEMETOLOGY METHOD 12/02/2024 12:43 PM EDT [facility] MPV 11.8(H) 7.0 - 11.0 FL LAB HEMETOLOGY METHOD 12/02/2024 12:43 PM EDT [facility] NRBC 0.0 <1.0 % LAB HEMETOLOGY METHOD 12/02/2024 12:43 PM EDT [facility] NRBC Absolute 0.00 <0.10 K/mcL LAB HEMETOLOGY METHOD 12/02/2024 12:43 PM EDT [facility] Blood Venous blood specimen / Unknown Venipuncture / Unknown 12/02/2024 6:09 AM EDT 12/02/2024 11:52 AM EDT us Radha Tyson MD LAB BLOOD ORDERABLES Fin al Result [facility] [address] [place] [address], documented in this encounter Visit Diagnoses Diagnosis Essential (primary) hypertension Unspecified essential hypertension documented in this encounter Care Teams Metal Tank Builder Relationship Specialty Start Date End Date Balaji Mayo MD [facility] [address] [place] [phone] PCP - General Internal Medicine 06/04/20 documented as of this encounter
--- OUTSIDE RECORDS SUMMARY | 2025-01-19 11:43 | XMS_ITS | Encounter Summary ---
Author Organization [facility] Address [address] [place] [address] Care Team Providers Care Consumer Loan Specialist Name Role Phone Balaji Mayo MD Primary Care Provider +1- [phone] Encounter Details Date Type Department Care Team (Late st Contact Info) Description 11/18/2024 Lab Requisition [facility] - Main Lab [address] [facility] [place] [address] Radha Tyson MD [address] [address] Essential (primary) hypertension Social History Tobacco Use [...] mmol/L LAB CHEMISTRY METHOD 11/18/2024 12:50 PM [facility] Potassium 3.8 3.5 - 5.5 mmol/L LAB CHEMISTRY METHOD 11/18/2024 12:50 PM [facility] Chloride 109 96 - 110 mmol/L LAB CHEMISTRY METHOD 11/18/2024 12:50 PM [facility] CO2 23 21 - 32 mmol/L LAB CHEMISTRY METHOD 11/18/2024 12:50 PM [facility] Anion Gap 8 3 - 11 LAB CHEMISTRY METHOD 11/18/2024 12:50 PM [facility] Glucose 75 70 - 100 mg/dL LAB CHEMISTRY METHOD 11/18/2024 12:50 PM [facility] BUN 24 5 - 25 mg/dL LAB CHEMISTRY METHOD 11/18/2024 12:50 PM [facility] Creatinine 1.98(H) 0.70 - 1.30 mg/dL LAB CHEMISTRY METHOD 11/18/2024 12:50 PM [facility] eGFR 36(L) >=60 mL/min/1. 73m2 LAB CHEMISTRY METHOD 11/18/2024 12:50 PM [facility] Comment:Calculation based on the Chronic Kidney Disease Epidemiology Collaboration (CKD-EPI) equation refit without adjustment for race. BUN/Creatinine Ratio 12.1 LAB CHEMISTRY METHOD 11/18/2024 12:50 PM [facility] Calcium 8.4(L) 8.5 - 10.5 mg/dL LAB CHEMISTRY METHOD 11/18/2024 12:50 PM [facility] Blood Venous blood specimen / Unknown Venipuncture / Unknown 11/18/2024 5:54 AM EDT 11/18/2024 11:16 AM EDT us Radha Tyson MD LAB BLOOD ORDERABLES Fin al Result [facility] [address] [place] [address], * (ABNORMAL) Complete blood count (11/18/2024 5:54 AM EDT) [facility] WBC 9.8 4.8 - 10.8 K/mcL LAB HEMETOLOGY METHOD 11/18/2024 12:17 PM EDT [facility] RBC 4.00(L) 4.50 - 5.50 M/mcL LAB HEMETOLOGY METHOD 11/18/2024 12:17 PM EDT [facility] Hemoglobin 11.3(L) 13.5 - 17.5 g/dL LAB HEMETOLOGY METHOD 11/18/2024 12:17 PM EDT [facility] Hematocrit 36.4(L) 42.0 - 54.0 % LAB HEMETOLOGY METHOD 11/18/2024 12:17 PM EDT [facility] MCV 90.1 79.0 - 98.0 FL LAB HEMETOLOGY METHOD 11/18/2024 12:17 PM EDT [facility] MCH 28.0 27.0 - 32.0 pcg LAB HEMETOLOGY METHOD 11/18/2024 12:17 PM EDT [facility] MCHC 31.0(L) 32.0 - 37.0 g/dL LAB HEMETOLOGY METHOD 11/18/2024 12:17 PM EDT [facility] RDW 14.6 11.0 - 15.0 % LAB HEMETOLOGY METHOD 11/18/2024 12:17 PM EDT [facility] Platelets 305 130 - 400 K/mcL LAB HEMETOLOGY METHOD 11/18/2024 12:17 PM EDT [facility] MPV 11.0 7.0 - 11.0 FL LAB HEMETOLOGY METHOD 11/18/2024 12:17 PM EDT [facility] NRBC 0.0 <1.0 % LAB HEMETOLOGY METHOD 11/18/2024 12:17 PM EDT [facility] NRBC Absolute 0.00 <0.10 K/mcL LAB HEMETOLOGY METHOD 11/18/2024 12:17 PM EDT [facility] Blood Venous blood specimen / Unknown Venipuncture / Unknown 11/18/2024 5:54 AM EDT 11/18/2024 11:16 AM EDT us Radha Tyson MD LAB BLOOD ORDERABLES Fin al Result [facility] [address] [place] [address], documented in this encounter Visit Diagnoses Diagnosis Essential (primary) hypertension Unspecified essential hypertension documented in this encounter Care Teams Consumer Loan Specialist Relationship Specialty Start Date End Date Balaji Mayo MD [facility] [address] [place] [phone] PCP - General Internal Medicine 06/04/20 documented as of this encounter
--- OUTSIDE RECORDS SUMMARY | 2025-01-19 11:43 | XMS_ITS | Encounter Summary ---
Author Organization [facility] Address [address] [place] [address] Care Team Providers Care Teletypesetter Operator Name Role Phone Balaji Mayo MD Primary Care Provider +1- [phone] Encounter Details Date Type Department Care Team (Late st Contact Info) Description 11/22/2024 Lab Requisition [facility] - Main Lab [address] [facility] [place] [address] Radha Tyson MD [address] [address] Essential (primary) hypertension Social History Tobacco Use [...] mmol/L LAB CHEMISTRY METHOD 11/25/2024 11:45 AM [facility] Potassium 4.1 3.5 - 5.5 mmol/L LAB CHEMISTRY METHOD 11/25/2024 11:45 AM [facility] Chloride 106 96 - 110 mmol/L LAB CHEMISTRY METHOD 11/25/2024 11:45 AM [facility] CO2 26 21 - 32 mmol/L LAB CHEMISTRY METHOD 11/25/2024 11:45 AM [facility] Anion Gap 8 3 - 11 LAB CHEMISTRY METHOD 11/25/2024 11:45 AM [facility] Glucose 73 70 - 100 mg/dL LAB CHEMISTRY METHOD 11/25/2024 11:45 AM [facility] BUN 29(H) 5 - 25 mg/dL LAB CHEMISTRY METHOD 11/25/2024 11:45 AM [facility] Creatinine 2.50(H) 0.70 - 1.30 mg/dL LAB CHEMISTRY METHOD 11/25/2024 11:45 AM [facility] eGFR 27(L) >=60 mL/min/1. 73m2 LAB CHEMISTRY METHOD 11/25/2024 11:45 AM [facility] Comment:Calculation based on the Chronic Kidney Disease Epidemiology Collaboration (CKD-EPI) equation refit without adjustment for race. BUN/Creatinine Ratio 11.6 LAB CHEMISTRY METHOD 11/25/2024 11:45 AM [facility] Calcium 9.0 8.5 - 10.5 mg/dL LAB CHEMISTRY METHOD 11/25/2024 11:45 AM [facility] Blood Venous blood specimen / Unknown Venipuncture / Unknown 11/25/2024 6:50 AM EDT 11/25/2024 10:44 AM EDT us Radha Tyson MD LAB BLOOD ORDERABLES Fin al Result [facility] [address] [place] [address], * (ABNORMAL) Complete blood count (11/25/2024 6:50 AM EDT) [facility] Signature WBC 9.8 4.8 - 10.8 K/mcL LAB HEMETOLOGY METHOD 11/25/2024 11:16 AM EDT [facility] RBC 4.30(L) 4.50 - 5.50 M/mcL LAB HEMETOLOGY METHOD 11/25/2024 11:16 AM EDT [facility] Hemoglobin 12.3(L) 13.5 - 17.5 g/dL LAB HEMETOLOGY METHOD 11/25/2024 11:16 AM EDT [facility] Hematocrit 39.3(L) 42.0 - 54.0 % LAB HEMETOLOGY METHOD 11/25/2024 11:16 AM EDT [facility] MCV 90.8 79.0 - 98.0 FL LAB HEMETOLOGY METHOD 11/25/2024 11:16 AM EDT [facility] MCH 28.4 27.0 - 32.0 pcg LAB HEMETOLOGY METHOD 11/25/2024 11:16 AM EDT [facility] MCHC 31.3(L) 32.0 - 37.0 g/dL LAB HEMETOLOGY METHOD 11/25/2024 11:16 AM EDT [facility] RDW 14.3 11.0 - 15.0 % LAB HEMETOLOGY METHOD 11/25/2024 11:16 AM EDT [facility] Platelets 272 130 - 400 K/mcL LAB HEMETOLOGY METHOD 11/25/2024 11:16 AM EDT [facility] MPV 11.6(H) 7.0 - 11.0 FL LAB HEMETOLOGY METHOD 11/25/2024 11:16 AM EDT [facility] NRBC 0.0 <1.0 % LAB HEMETOLOGY METHOD 11/25/2024 11:16 AM EDT [facility] NRBC Absolute 0.00 <0.10 K/mcL LAB HEMETOLOGY METHOD 11/25/2024 11:16 AM EDT [facility] Blood Venous blood specimen / Unknown Venipuncture / Unknown 11/25/2024 6:50 AM EDT 11/25/2024 10:43 AM EDT us Radha Tyson MD LAB BLOOD ORDERABLES Fin al Result [facility] [address] [place] [address], documented in this encounter Visit Diagnoses Diagnosis Essential (primary) hypertension Unspecified essential hypertension documented in this encounter Care Teams Teletypesetter Operator Relationship Specialty Start Date End Date Balaji Mayo MD [facility] [address] [place] [address] PCP - General Internal Medicine 06/04/20 documented as of this encounter
--- OUTSIDE RECORDS SUMMARY | 2025-01-19 11:43 | XMS_ITS | Encounter Summary ---
Author Organization [facility], Address [address] [place] [address] Phone Care Team Providers Care Tapping Machine Operator Automatic Name Role Phone Balaji Mayo MD Primary Care Provider +1- [phone] Encounter Details Date Type Department Care Team (Late st Contact Info) Description 07/29/2024 Documentation Only [facility], [address] [place] [address] [place] [address] [place] [address] Social History Tobacco Use Types [...] on filedocumented in this encounter Care Teams Tapping Machine Operator Automatic Relationship Specialty Start Date End Date Balaji Mayo MD [address] [place] [phone] PCP - General Family Medicine 06/06/22 documented as of this encounter
--- OUTSIDE RECORDS SUMMARY | 2025-01-19 11:43 | XMS_ITS | Encounter Summary ---
Author Organization [facility] Address [address] [place] [address] Phone Care Team Providers Care Utilization Supervisor Name Role Phone Balaji Mayo MD Primary Care Provider + Balaji Mayo MD Primary Care Provider + Balaji Mayo MD Unavailable Encounter Details Date Type Department Care Team (Latest Contact Info) Description 09/21/2021 Transcribe Orders [facility] Laboratory [address] [place] [address] [phone] Margie Maldonado MD [address] [place] [address] [phone] [email or web address] Hypertension, unspecified type (Primary Dx); Abdominal aortic [...] EDT) WBC 9.12 4.00 - 11.00 K/uL [facility] RBC 4.47 3.90 - 5.69 M/uL [facility] HGB 13.5 12.4 - 17.3 g/dL [facility] HCT 41.1 37.0 - 51.0 % [facility] PLT 258 140 - 430 K/uL [facility] MCV 91.9 78.0 - 97.0 fL [facility] MCH 30.2 25.0 - 33.0 pg [facility] MCHC 32.8 32.0 - 36.0 g/dL [facility] RDW 13.6 11.0 - 15.0 % [facility] MPV 11.3 8.4 - 12.8 fl [facility] NRBC 0.00 0 /100 WBCs [facility] ABSOLUTE NRBC 0.00 0 K/uL [facility] Blood 09/21/2021 6:30 AM EDT 09/21/2021 8:23 AM EDT us Margie Maldonado MD LAB BLOOD ORDERABLES Final Res ult [address] [address] * (ABNORMAL) Comprehensive metabolic panel (09/21/2021 6:30 AM EDT) SODIUM 141 133 - 146 mmol/L [facility] POTASSIUM 4.2 3.3 - 5.1 mmol/L [facility] CHLORIDE 107 96 - 108 mmol/L [facility] CO2 24 21 - 35 mmol/L [facility] BUN 16 6 - 19 mg/dL [facility] CREATININE 1.70(H) 0.5 - 1.5 mg/dL [facility] GLUCOSE 94 70 - 99 mg/dL [facility] ALBUMIN 3.2(L) 3.9 - 4.8 g/dL [facility] TOTAL PROTEIN 6.0(L) 6.5 - 8.0 g/dL [facility] CALCIUM 8.8 8.4 - 10.3 mg/dL [facility] ALKALINE PHOSPHATASE 110 39 - 117 U/L [facility] TOTAL BILIRUBIN 0.2 0.0 - 1.2 mg/dL [facility] AST 16 0 - 37 U/L [facility] ALT 19 0 - 40 U/L [facility] GLOBULIN 2.8 1 - 4.8 g/dL [facility] EGFR 44(L) >59 mL/min/1.7 3m2 [facility] Comment:Estimated glomerular filtration rate calculated using the CKD-EPI refit equation. ANION GAP 14 10 - 20 mmol/L [facility] Blood 09/21/2021 6:30 AM EDT 09/21/2021 8:23 AM EDT us Margie Maldonado MD LAB BLOOD ORDERABLES Final Res ult [address] [address] documented in this encounter Visit Diagnoses Diagnosis Hypertension, unspecified type- Primary Abdominal aortic aneurysm without rupture Abdominal aneurysm without mention of rupture Benign prostatic hyperplasia, unspecified whether lower urinary tract symptoms present documented in this encounter Care Teams Utilization Supervisor Relationship Specialty Start Date End Date Balaji Mayo MD [address] [place] [address] PCP - General Family Medicine 06/01/21 10/22/23 Balaji Mayo MD [address] [place] [address] PCP - General Family Medicine 10/23/23 Balaji Mayo MD [address] [place] [address] Family Medicine 10/23/23 documented as of this encounter Additional Source Comments The information contained in this document represents components of the legal health record. It is not the complete legal health record.[facility]
--- OUTSIDE RECORDS SUMMARY | 2025-01-19 11:43 | XMS_ITS | Encounter Summary ---
Author Organization [facility] Address [address] [place] [address] Care Team Providers Care Statistical Engineer Name Role Phone Balaji Mayo MD Primary Care Provider +1- [phone] Encounter Details Date Type Department Care Team (Late st Contact Info) Description 01/09/2025 Lab Requisition [facility] - Main Lab [address] [facility] [place] [address] Radha Tyson MD [address] [address] Dysuria; Altered mental status, unspecified Social History Tobacco Use Types Packs/Day [...] Procedure Name Priority Date/Time Associated Diagnosis Comments URINALYSIS WITH REFLEX MICROSCOPIC Routine 01/09/2025 5:00 AM EDT Dysuria Altered mental status, unspecified URINALYSIS WITH REFLEX MICROSCOPIC Routine 01/09/2025 5:00 AM EDT Dysuria Altered mental status, unspecified CULTURE URINE Routine 01/09/2025 5:00 AM EDT Dysuria Altered mental status, unspecified documented in this encounter Results * Urinalysis with reflex microscopic (01/09/2025 5:00 AM EDT) Specific [place] Urine 1.011 1.003 - 1.030 LAB URINALYSIS - AUTOMATED METHOD 01/09/2025 9:10 AM [facility] pH, Urine 6.0 5.0 - 8.0 pH LAB URINALYSIS - AUTOMATED METHOD 01/09/2025 9:10 AM [facility] Leukocytes, Urine Negative Negative LAB URINALYSIS - AUTOMATED METHOD 01/09/2025 9:10 AM [facility] Nitrite, Urine Negative Negative LAB URINALYSIS - AUTOMATED METHOD 01/09/2025 9:10 AM [facility] Protein, Urine Negative <=Trace mg/dL LAB URINALYSIS - AUTOMATED METHOD 01/09/2025 9:10 AM [facility] Glucose, Urine Negative Negative mg/dL LAB URINALYSIS - AUTOMATED METHOD 01/09/2025 9:10 AM [facility] Ketones, Urine Negative Negative mg/dL LAB URINALYSIS - AUTOMATED METHOD 01/09/2025 9:10 AM [facility] Urobilinogen, Urine 0.2 0.2 - 1.0 mg/dL LAB URINALYSIS - AUTOMATED METHOD 01/09/2025 9:10 AM [facility] Bilirubin, Urine Negative Negative LAB URINALYSIS - AUTOMATED METHOD 01/09/2025 9:10 AM [facility] Blood, Urine Negative Negative LAB URINALYSIS - AUTOMATED METHOD 01/09/2025 9:10 AM [facility] Urine Urine specimen obtained by clean catch procedure / Unknown Non-blood Collection / Unknown 01/09/2025 5:00 AM EDT 01/09/2025 8:19 AM EDT Radha Tyson MD LAB URINE ORDERABLES Fin al Result [facility] [address] [place] [address], [place] [phone] * (ABNORMAL) Culture urine (01/09/2025 5:00 AM EDT) Culture, Urine 10,000-49,000 CFU/mL Staphylococcus epidermidis(A) WHIT[place] 01/12/2025 9:24 AM EDT [facility] Comment: The organism value for [...] MICROBIOLOGY - GENER AL ORDERABLES Final Result [facility] [address] [place] [address], [place] [phone] documented in this encounter Visit Diagnoses Diagnosis Dysuria Altered mental status, unspecified documented in this encounter Care Teams Statistical Engineer Relationship Specialty Start Date End Date Balaji Mayo MD [address] [facility] [address] PCP - General Internal Medicine 06/04/20 documented as of this encounter
--- OUTSIDE RECORDS SUMMARY | 2025-01-19 11:43 | XMS_ITS ---
Author Organization [facility] on Care Team Providers Care Stringing Machine Operator Name Role Phone Emily Kumar Unavailable [...] Address Phone Organization Dates Miguel A Edwards [address], [place], [address], [place] (Office): : [facility] 02/01/2023 - 02/17/2023 Emily Kumar [address] [place] [address], [address], [place] (Office): [facility] 02/01/2023 - 02/17/2023 Jonel Monet [address] [place] [address], [address], [place] (Office): [facility] 02/01/2023 - 02/17/2023 Gee Palmer [address] [place] [address], [address], [place] (Office): [facility] 02/01/2023 - 02/17/2023 Jennifer Alonso [address] [place] [address], [address], [place] (Office): : [facility] 02/01/2023 - 02/17/2023 Lacey Morisnikita [address], [address], [place] (Office): : [facility] 02/01/2023 - 02/17/2023 Leilani Treadwell [address] [place] [address], [address], [place] (Office): : [facility] 02/01/2023 - 02/17/2023 Nichole Oakes [address] [place], [address], [place] (Office): [facility] 02/01/2023 - 02/17/2023 Milly Patricio [address], [place], [address], [place] (Office): : [facility] 02/01/2023 - 02/17/2023 Elysia Heath [address] [place] [address], [address], [place] (Office): [facility] 02/01/2023 - 02/17/2023 Immunizations Immunization Status Vaccine Details Vaccine Code CodeSystem Date Notes Influenza new Influenza, split virus, trivalent, injectable, contains preservative 141 CVX created date: 02/01/2023 consent date: 02/01/2023 Pneumococcal Polysaccharide Vaccine (PPSV23) completed pneumococcal polysaccharide vaccine, 23 valent 33 CVX created date: 02/02/2023 administer ed date: 05/03/2017 Verified in [facility] Pneumococcal Polysaccharide Vaccine (PPSV23) completed pneumococcal polysaccharide vaccine, 23 valent 33 CVX created date: 02/02/2023 administer ed date: 12/17/2012 Verified in [facility] SARS-COV-2 (COVID-19) completed SARS-COV-2 (COVID-19) vaccine, mRNA, spike protein, LNP, preservative free, 30 mcg/0.3mL dose Mfg: [employer] Step 2 of Multi-step with next step required 208 CVX created date: 09/10/2021 administer ed date: 07/09/2020 SARS-COV-2 (COVID-19) completed SARS-COV-2 (COVID-19) vaccine, mRNA, spike protein, LNP, preservative free, 30 mcg/0.3mL dose Mfg: [employer] Step 1 of Multi-step with next step required 208 CVX created date: 09/10/2021 administer ed date: 06/18/2020 Prevnar 20 Pneumococcal conjugate (PCV20) new Pneumococcal conjugate vaccine 20-valent (PCV20), polysaccharide [id number] conjugate, adjuvant, preservative free 216 CVX created date: 02/01/2023 consent date: 02/01/2023 SARS-COV-2 (COVID-19 BOOSTER) completed SARS-COV-2 (COVID-19) vaccine, mRNA, spike protein, LNP, preservative free, 30 mcg/0.3mL dose Mfg: [employer] 208 CVX created date: 09/10/2021 administer [...] 1 ABDOMINAL AORTIC ANEURYSM, WITHOUT RUPTURE, UNSPECIFIED 02/02/[address] active 2 ATHEROSCLEROTIC HEART DISEASE OF [place] CORONARY ARTERY WITHOUT ANGINA PECTORIS 02/02/[address] active 3 BENIGN PROSTATIC HYPERPLASIA WITHOUT LOWER URINARY TRACT SYMPTOMS 02/02/[address] active 4 CHRONIC KIDNEY DISEASE, STAGE 3 UNSPECIFIED 02/02/[address] active 5 ENCOUNTER FOR SURGICAL AFTERCARE FOLLOWING SURGERY ON THE CIRCULATORY SYSTEM 02/02/[address] active 6 ESSENTIAL (PRIMARY) HYPERTENSION 02/02/[address] active 7 HYPERLIPIDEMIA, UNSPECIFIED 02/02/[address] active 8 NON-ST ELEVATION (NSTEMI) MYOCARDIAL INFARCTION 02/02/[address] active 9 ORTHOPNEA 02/02/[address] active 10 OSTEOARTHRITIS OF HIP, UNSPECIFIED 02/02/[address] active 11 PERIPHERAL VASCULAR DISEASE, UNSPECIFIED 02/02/[address] active 12 SCHIZOAFFECTIVE DISORDER, BIPOLAR TYPE 02/02/[address] active 13 ABDOMINAL AORTIC ANEURYSM, WITHOUT RUPTURE 09/11/1902/01/[address] completed 14 ACUTE BRONCHITIS DUE TO OTHER SPECIFIED ORGANISMS 09/11/1902/01/[address] completed 15 BENIGN PROSTATIC HYPERPLASIA WITHOUT LOWER URINARY TRACT SYMPTOMS 09/11/1902/01/[address] completed 16 BILATERAL PRIMARY OSTEOARTHRITIS OF HIP 09/11/1902/01/[address] completed 17 BIPOLAR DISORDER, UNSPECIFIED 09/11/1902/01/[address] completed 18 CEREBRAL INFARCTION DUE TO THROMBOSIS OF UNSPECIFIED CEREBRAL ARTERY 09/11/19 22 02/01/[address] completed 19 CHRONIC KIDNEY DISEASE, STAGE 3 UNSPECIFIED 09/11/19 22 02/01/[address] completed 20 CONGENITAL DISLOCATION OF HIP, BILATERAL 09/11/19 22 02/01/[address] completed 21 ESSENTIAL (PRIMARY) HYPERTENSION 09/11/19 22 02/01/[address] completed 22 HYPERLIPIDEMIA, UNSPECIFIED 09/11/19 22 02/01/[address] completed 23 INFLUENZA DUE TO OTHER IDENTIFIED INFLUENZA VIRUS WITH OTHER RESPIRATORY MANIFESTATIONS 09/11/19 22 02/01/[address] completed 24 ORTHOSTATIC HYPOTENSION 09/11/19 22 02/01/[address] completed 25 PAIN IN RIGHT KNEE 09/11/19 22 02/01/[address] completed 26 PERIPHERAL VASCULAR DISEASE, UNSPECIFIED 09/11/19 22 02/01/[address] completed 27 SCHIZOPHRENIA, UNSPECIFIED 09/11/19 22 02/01/[address] completed Reason for Referral No Reasons for Referral Entered Social History Social History Observation Description Start Date End Date Code Code System Current Smoking Status Tobacco smoking consumption unknown 954660941 SNOMED CT Sex Assigned At Male 1955 00145-8 [facility] Gender Identity Sexual Orientation Vital Signs Code Code System Vitals Name Values and Units Timing Information 71319-6 [facility] Pain Level Value=0.0 02/17/2023 9279-1 [facility] Respiratory Rate Value=16.0 Units=/m in 02/15/2023 8462-4 [facility] Blood Pressure-Diastolic Value=80 Un its=mmHg 02/15/2023 8480-6 [facility] Blood Pressure-Systolic Dture=158 Un its=mmHg 02/15/2023 8310-5 [facility] Body Temperature Value=97.8 Units= F 02/15/2023 8867-4 [facility] Heart rate Value=80.0 Units=/min 71476-9 [facility] O2 % BldC Oximetry Value=96.0 Units= % 02/15/2023 61332-2 [facility] Weight Cfyfq=092.0 Units=Lbs 8302-2 [facility] Height Value=72.0 Units=Inches 02/01/2023
--- OUTSIDE RECORDS SUMMARY | 2025-01-19 11:43 | XMS_ITS | Encounter Summary ---
Author Organization [facility], Address [address] [place] [address] Phone Care Team Providers Care Recording Studio Intern Name Role Phone Balaji Mayo MD Primary Care Provider +1- [phone] Encounter Details Date Type Department Care Team (Late st Contact Info) Description 10/03/2023 Documentation Only [facility], [address] [place] [address] Uzma Romero [address] [place] [address] Social History Tobacco Use Types [...] on filedocumented in this encounter Care Teams Recording Studio Intern Relationship Specialty Start Date End Date Balaji Mayo MD [address] [place] [phone] PCP - General Family Medicine 06/06/22 documented as of this encounter
--- OUTSIDE RECORDS SUMMARY | 2025-01-19 11:43 | XMS_ITS | Encounter Summary ---
Author Organization [facility], Address [address] [place] [address] Phone Care Team Providers Care Aerospace Technician Name Role Phone Balaji Mayo MD Primary Care Provider +1- [phone] Encounter Details Date Type Department Care Team (Late st Contact Info) Description 07/29/2024 Documentation Only [facility], [address] [address] [place] [address] [place] [address] Social History Tobacco Use Types [...] on filedocumented in this encounter Care Teams Aerospace Technician Relationship Specialty Start Date End Date Balaji Mayo MD [address] [place] [phone] PCP - General Family Medicine 06/06/22 documented as of this encounter
--- OUTSIDE RECORDS SUMMARY | 2025-01-19 11:43 | XMS_ITS | Encounter Summary ---
Author Organization [facility] Address [address] [place] [address] Care Team Providers Care Shift Stacker Name Role Phone Balaji Mayo MD Primary Care Provider +1- [phone] Encounter Details Date Type Department Care Team (Late st Contact Info) Description 12/30/[address] [facility] - Main Lab 299 [facility] [place] [address] Radha Tyson MD [address] [address] Chronic kidney disease, unspecified; Bipolar disorder, unspecified [...] Associated Diagnosis Comments COMPLETE BLOOD COUNT Routine 12/30/2024 9:37 AM EDT Chronic kidney disease, unspecified Bipolar disorder, unspecified (CMS/HCC V24, CMS/HCC V28) COMPREHENSIVE METABOLIC PANEL Routine 12/30/2024 9:37 AM EDT Chronic kidney disease, unspecified Bipolar disorder, unspecified (CMS/HCC V24, CMS/HCC V28) documented in this encounter Results * (ABNORMAL) Comprehensive metabolic panel (12/30/2024 9:37 AM EDT) Sodium 138 133 - 145 mmol/L LAB CHEMISTRY METHOD 12/30/2024 2:58 PM [facility] Potassium 3.9 3.5 - 5.5 mmol/L LAB CHEMISTRY METHOD 12/30/2024 2:58 PM [facility] Chloride 107 96 - 110 mmol/L LAB CHEMISTRY METHOD 12/30/2024 2:58 PM [facility] CO2 25 21 - 32 mmol/L LAB CHEMISTRY METHOD 12/30/2024 2:58 PM [facility] Anion Gap 6 3 - 11 LAB CHEMISTRY METHOD 12/30/2024 2:58 PM [facility] Glucose 94 70 - 100 mg/dL LAB CHEMISTRY METHOD 12/30/2024 2:58 PM [facility] BUN 25 5 - 25 mg/dL LAB CHEMISTRY METHOD 12/30/2024 2:58 PM [facility] Creatinine 2.21(H) 0.70 - 1.30 mg/dL LAB CHEMISTRY METHOD 12/30/2024 2:58 PM [facility] eGFR 32(L) >=60 mL/min/1. 73m2 LAB CHEMISTRY METHOD 12/30/2024 2:58 PM [facility] Comment:Calculation based on the Chronic Kidney Disease Epidemiology Collaboration (CKD-EPI) equation refit without adjustment for race. BUN/Creatinine Ratio 11.3 LAB CHEMISTRY METHOD 12/30/2024 2:58 PM [facility] Calcium 8.8 8.5 - 10.5 mg/dL LAB CHEMISTRY METHOD 12/30/2024 2:58 PM [facility] AST (SGOT) 21 10 - 42 unit/L LAB CHEMISTRY METHOD 12/30/2024 2:58 PM EDT [facility] ALT (SGPT) 18 10 - 60 unit/L LAB CHEMISTRY METHOD 12/30/2024 2:58 PM EDT [facility] Alkaline Phosphatase 122(H) 42 - 121 unit/L LAB CHEMISTRY METHOD 12/30/2024 2:58 PM EDT [facility] Total Protein 6.6 6.0 - 8.0 g/dL LAB CHEMISTRY METHOD 12/30/2024 2:58 PM EDT [facility] Albumin 2.6(L) 3.2 - 5.0 g/dL LAB CHEMISTRY METHOD 12/30/2024 2:58 PM EDT [facility] Total Bilirubin 0.4 0.0 - 1.4 mg/dL LAB CHEMISTRY METHOD 12/30/2024 2:58 PM EDT [facility] Blood Venous blood specimen / Unknown Venipuncture / Unknown 12/30/2024 9:37 AM EDT 12/30/2024 12:04 PM EDT us Radha Tyson MD LAB BLOOD ORDERABLES Fin al Result [facility] [address] [place] [address], * (ABNORMAL) Complete blood count (12/30/2024 9:37 AM EDT) WBC 9.4 4.8 - 10.8 K/mcL LAB HEMETOLOGY METHOD 12/30/2024 1:07 PM EDT [facility] RBC 3.70(L) 4.50 - 5.50 M/mcL LAB HEMETOLOGY METHOD 12/30/2024 1:07 PM EDT [facility] Hemoglobin 10.6(L) 13.5 - 17.5 g/dL LAB HEMETOLOGY METHOD 12/30/2024 1:07 PM EDT [facility] Hematocrit 33.6(L) 42.0 - 54.0 % LAB HEMETOLOGY METHOD 12/30/2024 1:07 PM EDT [facility] MCV 91.3 79.0 - 98.0 FL LAB HEMETOLOGY METHOD 12/30/2024 1:07 PM EDT [facility] MCH 28.8 27.0 - 32.0 pcg LAB HEMETOLOGY METHOD 12/30/2024 1:07 PM EDT [facility] MCHC 31.5(L) 32.0 - 37.0 g/dL LAB HEMETOLOGY METHOD 12/30/2024 1:07 PM EDT [facility] RDW 14.7 11.0 - 15.0 % LAB HEMETOLOGY METHOD 12/30/2024 1:07 PM EDT [facility] Platelets 333 130 - 400 K/mcL LAB HEMETOLOGY METHOD 12/30/2024 1:07 PM EDT [facility] MPV 11.0 7.0 - 11.0 FL LAB HEMETOLOGY METHOD 12/30/2024 1:07 PM EDT [facility] NRBC 0.0 <1.0 % LAB HEMETOLOGY METHOD 12/30/2024 1:07 PM EDT [facility] NRBC Absolute 0.00 <0.10 K/mcL LAB HEMETOLOGY METHOD 12/30/2024 1:07 PM EDT [facility] Blood Venous blood specimen / Unknown Venipuncture / Unknown 12/30/2024 9:37 AM EDT 12/30/2024 12:04 PM EDT us Radha Tyson MD LAB BLOOD ORDERABLES Fin al Result [facility] [address] [place] [address], documented in this encounter Visit Diagnoses Diagnosis Chronic kidney disease, unspecified Bipolar disorder, unspecified ([facility] V24, [facility] V28) Bipolar disorder, unspecified documented in this encounter Care Teams Shift Stacker Relationship Specialty Start Date End Date Balaji Mayo MD [address] [place] [phone] PCP - General Internal Medicine 06/04/20 documented as of this encounter
--- OUTSIDE RECORDS SUMMARY | 2025-01-19 11:43 | XMS_ITS | Encounter Summary ---
Author Organization [facility] Address [address] [place] [address] Care Team Providers Care Survey Workers Supervisor Name Role Phone Balaji Mayo MD Primary Care Provider +1- [phone] Encounter Details Date Type Department Care Team (Late st Contact Info) Description 01/09/2025 Lab Requisition [facility] - Main Lab [address] [facility] [place] [address] Radha Tyson MD [address] [place] [id number] Chronic kidney disease, stage 3b (CMS/HCC V24, CMS/HCC V28) Social History Tobacco [...] encounter Visit Diagnoses Diagnosis Chronic kidney disease, stage 3b (CMS/HCC V24, CMS/HCC V28) documented in this encounter Care Teams Survey Workers Supervisor Relationship Specialty Start Date End Date Balaji Mayo MD [address] [phone] PCP - General Internal Medicine 06/04/20 documented as of this encounter
--- OUTSIDE RECORDS SUMMARY | 2025-01-19 11:43 | XMS_ITS | Encounter Summary ---
Author Organization [facility] Address [address] [place] [address] Care Team Providers Care Barrelhead Inspector Name Role Phone Balaji Mayo MD Primary Care Provider +1- [phone] Encounter Details Date Type Department Care Team (Late st Contact Info) Description 12/13/2024 Lab Requisition [facility] - Main Lab 299 [facility] [place] [address] Radha Tyson MD [address] [address] Essential (primary) hypertension Social History Tobacco Use [...] mmol/L LAB CHEMISTRY METHOD 12/16/2024 9:17 AM [facility] Potassium 4.1 3.5 - 5.5 mmol/L LAB CHEMISTRY METHOD 12/16/2024 9:17 AM [facility] Chloride 107 96 - 110 mmol/L LAB CHEMISTRY METHOD 12/16/2024 9:17 AM [facility] CO2 28 21 - 32 mmol/L LAB CHEMISTRY METHOD 12/16/2024 9:17 AM [facility] Anion Gap 6 3 - 11 LAB CHEMISTRY METHOD 12/16/2024 9:17 AM [facility] Glucose 89 70 - 100 mg/dL LAB CHEMISTRY METHOD 12/16/2024 9:17 AM [facility] BUN 25 5 - 25 mg/dL LAB CHEMISTRY METHOD 12/16/2024 9:17 AM [facility] Creatinine 2.40(H) 0.70 - 1.30 mg/dL LAB CHEMISTRY METHOD 12/16/2024 9:17 AM [facility] eGFR 29(L) >=60 mL/min/1. 73m2 LAB CHEMISTRY METHOD 12/16/2024 9:17 AM [facility] Comment:Calculation based on the Chronic Kidney Disease Epidemiology Collaboration (CKD-EPI) equation refit without adjustment for race. BUN/Creatinine Ratio 10.4 LAB CHEMISTRY METHOD 12/16/2024 9:17 AM [facility] Calcium 8.8 8.5 - 10.5 mg/dL LAB CHEMISTRY METHOD 12/16/2024 9:17 AM [facility] Blood Venous blood specimen / Unknown Venipuncture / Unknown 12/16/2024 5:54 AM EDT 12/16/2024 8:28 AM EDT us Radha Tyson MD LAB BLOOD ORDERABLES Fin al Result [facility] [address] [place] [address], * (ABNORMAL) Complete blood count (12/16/2024 5:54 AM EDT) [facility] Signature WBC 9.3 4.8 - 10.8 K/mcL LAB HEMETOLOGY METHOD 12/16/2024 8:51 AM EDT [facility] RBC 4.50 4.50 - 5.50 M/mcL LAB HEMETOLOGY METHOD 12/16/2024 8:51 AM EDT [facility] Hemoglobin 12.7(L) 13.5 - 17.5 g/dL LAB HEMETOLOGY METHOD 12/16/2024 8:51 AM EDT [facility] Hematocrit 40.2(L) 42.0 - 54.0 % LAB HEMETOLOGY METHOD 12/16/2024 8:51 AM EDT [facility] MCV 90.3 79.0 - 98.0 FL LAB HEMETOLOGY METHOD 12/16/2024 8:51 AM EDT [facility] MCH 28.5 27.0 - 32.0 pcg LAB HEMETOLOGY METHOD [facility] MCHC 31.6(L) 32.0 - 37.0 g/dL LAB HEMETOLOGY METHOD 12/16/2024 8:51 AM EDT [facility] RDW 14.6 11.0 - 15.0 % LAB HEMETOLOGY METHOD 12/16/2024 8:51 AM EDT [facility] Platelets 229 130 - 400 K/mcL LAB HEMETOLOGY METHOD 12/16/2024 8:51 AM EDT [facility] MPV 11.4(H) 7.0 - 11.0 FL LAB HEMETOLOGY METHOD 12/16/2024 8:51 AM EDT [facility] NRBC 0.0 <1.0 % LAB HEMETOLOGY METHOD 12/16/2024 8:51 AM EDT [facility] NRBC Absolute 0.00 <0.10 K/mcL LAB HEMETOLOGY METHOD 12/16/2024 8:51 AM EDT [facility] Blood Venous blood specimen / Unknown Venipuncture / Unknown 12/16/2024 5:54 AM EDT 12/16/2024 8:28 AM EDT us Radha Tyson MD LAB BLOOD ORDERABLES Fin al Result [facility] [address] [place] [address], documented in this encounter Visit Diagnoses Diagnosis Essential (primary) hypertension Unspecified essential hypertension documented in this encounter Care Teams Barrelhead Inspector Relationship Specialty Start Date End Date Balaji Mayo MD [facility] [address] [place] [phone] PCP - General Internal Medicine 06/04/20 documented as of this encounter
--- OUTSIDE RECORDS SUMMARY | 2025-01-19 11:43 | XMS_ITS | Encounter Summary ---
Author Organization [facility], Address [address] [place] [address] Phone Care Team Providers Care English Instructor Name Role Phone Balaji Mayo MD Primary Care Provider +1- [phone] Encounter Details Date Type Department Care Team (Late st Contact Info) Description 07/29/2024 Documentation Only [facility], [address] [place] [address] [place] [address] [place] [address] Social History Tobacco Use Types [...] on filedocumented in this encounter Care Teams English Instructor Relationship Specialty Start Date End Date Balaji Mayo MD [address] [place] [phone] PCP - General Family Medicine 06/06/22 documented as of this encounter
--- OUTSIDE RECORDS SUMMARY | 2025-01-19 11:43 | XMS_ITS | Encounter Summary ---
Author Organization [facility], Address [address] [place] [address] Phone Care Team Providers Care Knife Grinder Name Role Phone Balaji Mayo MD Primary Care Provider +1- [phone] Encounter Details Date Type Department Care Team (Late st Contact Info) Description 04/10/2023 Documentation Only [facility], - [place] [address] [facility] [address] [place] [address] [phone] Social History Tobacco Use Types Packs/Day Years [...] on filedocumented in this encounter Care Teams Knife Grinder Relationship Specialty Start Date End Date Balaji Mayo MD [address] [facility] [place] [address] PCP - General Family Medicine 06/06/22 documented as of this encounter
--- OUTSIDE RECORDS SUMMARY | 2025-01-19 11:43 | XMS_ITS | Encounter Summary ---
Author Organization [facility] Address [address] [place] [address] Care Team Providers Care Bin Cleaner Name Role Phone Balaji Mayo MD Primary Care Provider +1- [phone] Encounter Details Date Type Department Care Team (Late st Contact Info) Description 01/05/2025 Lab Requisition [facility] - Main Lab 299 [facility] [place] [address] Radha Tyson MD [address] [address] Chronic kidney disease, unspecified; Bipolar disorder, unspecified [...] Associated Diagnosis Comments COMPLETE BLOOD COUNT Routine 01/06/2025 8:31 AM EDT Chronic kidney disease, unspecified Bipolar disorder, unspecified (CMS/HCC V24, CMS/HCC V28) BASIC METABOLIC PANEL Routine 01/06/2025 8:31 AM EDT Chronic kidney disease, unspecified Bipolar disorder, unspecified (CMS/HCC V24, CMS/HCC V28) documented in this encounter Results * (ABNORMAL) Complete blood count (01/06/2025 8:31 AM EDT) [facility] WBC 10.0 4.8 - 10.8 K/mcL LAB HEMETOLOGY METHOD 01/06/2025 1:21 PM [facility] RBC 4.00(L) 4.50 - 5.50 M/mcL LAB HEMETOLOGY METHOD 01/06/2025 1:21 PM [facility] Hemoglobin 11.3(L) 13.5 - 17.5 g/dL LAB HEMETOLOGY METHOD 01/06/2025 1:21 PM [facility] Hematocrit 36.3(L) 42.0 - 54.0 % LAB HEMETOLOGY METHOD 01/06/2025 1:21 PM [facility] MCV 90.5 79.0 - 98.0 FL LAB HEMETOLOGY METHOD 01/06/2025 1:21 PM [facility] MCH 28.2 27.0 - 32.0 pcg LAB HEMETOLOGY METHOD 01/06/2025 1:21 PM [facility] MCHC 31.1(L) 32.0 - 37.0 g/dL LAB HEMETOLOGY METHOD 01/06/2025 1:21 PM [facility] RDW 14.8 11.0 - 15.0 % LAB HEMETOLOGY METHOD 01/06/2025 1:21 PM [facility] Platelets 413(H) 130 - 400 K/mcL LAB HEMETOLOGY METHOD 01/06/2025 1:21 PM [facility] MPV 11.2(H) 7.0 - 11.0 FL LAB HEMETOLOGY METHOD 01/06/2025 1:21 PM [facility] NRBC 0.0 <1.0 % LAB HEMETOLOGY METHOD 01/06/2025 1:21 PM EDT [facility] NRBC Absolute 0.00 <0.10 K/mcL LAB HEMETOLOGY METHOD 01/06/2025 1:21 PM [facility] Blood Venous blood specimen / Unknown Venipuncture / Unknown 01/06/2025 8:31 AM EDT 01/06/2025 11:46 AM EDT us Radha Tyson MD LAB BLOOD ORDERABLES Fin al Result [facility] [address] [place] [address], [place] [phone] * (ABNORMAL) Basic metabolic panel (01/06/2025 8:31 AM EDT) Sodium 139 133 - 145 mmol/L LAB CHEMISTRY METHOD 01/06/2025 12:53 PM [facility] Potassium 4.3 3.5 - 5.5 mmol/L LAB CHEMISTRY METHOD 01/06/2025 12:53 PM [facility] Chloride 106 96 - 110 mmol/L LAB CHEMISTRY METHOD 01/06/2025 12:53 PM [facility] CO2 24 21 - 32 mmol/L LAB CHEMISTRY METHOD 01/06/2025 12:53 PM [facility] Anion Gap 9 3 - 11 LAB CHEMISTRY METHOD 01/06/2025 12:53 PM [facility] Glucose 91 70 - 100 mg/dL LAB CHEMISTRY METHOD 01/06/2025 12:53 PM [facility] BUN 34(H) 5 - 25 mg/dL LAB CHEMISTRY METHOD 01/06/2025 12:53 PM [facility] Creatinine 2.29(H) 0.70 - 1.30 mg/dL LAB CHEMISTRY METHOD 01/06/2025 12:53 PM [facility] eGFR 30(L) >=60 mL/min/1. 73m2 LAB CHEMISTRY METHOD 01/06/2025 12:53 PM EDT [facility] Comment:Calculation based on the Chronic Kidney Disease Epidemiology Collaboration (CKD-EPI) equation refit without adjustment for race. BUN/Creatinine Ratio 14.8 LAB CHEMISTRY METHOD 01/06/2025 12:53 PM EDT [facility] Calcium 9.2 8.5 - 10.5 mg/dL LAB CHEMISTRY METHOD 01/06/2025 12:53 PM EDT [facility] Blood Venous blood specimen / Unknown Venipuncture / Unknown 01/06/2025 8:31 AM EDT 01/06/2025 11:45 AM EDT us Radha Tyson MD LAB BLOOD ORDERABLES Fin al Result [facility] [address] [place] [address], documented in this encounter Visit Diagnoses Diagnosis Chronic kidney disease, unspecified Bipolar disorder, unspecified (CMS/HCC V24, CMS/HCC V28) Bipolar disorder, unspecified documented in this encounter Care Teams Bin Cleaner Relationship Specialty Start Date End Date Balaji Mayo MD [address] [place] [phone] PCP - General Internal Medicine 06/04/20 documented as of this encounter
[2025-01-19 11:57] LABS: MANUAL DIFF FLAG NO
[2025-01-19 11:58] LABS: Hematocrit 34.1 % (42.0-52.0); Hemoglobin 11.4 g/dl (14.0-18.0); Imm Gran Abs Auto 0.04 X10*3/uL (0.00-0.03); Imm Gran Pct Auto 0.4 % (0.0-0.4); Lymphocytes Absolute Auto 2.4 X10*3/uL (1.2-4.9); Mean Corpuscular HGB Conc 33.4 g/dl (31.0-36.0); Mean Corpuscular Hemoglobin 29.6 pg (27.0-33.0); Mean Corpuscular Volume 88.6 fL (80.0-98.0); NRBC Abs Auto 0.000 X10*3/uL (0.0-0.012); NRBC Pct Auto 0.0 /100WBC (0.0-0.2); Platelet Count 215 X10*3/uL (160-400); Red Blood Count 3.85 X10*6/uL (4.60-5.80); White Blood Count 10.2 X10*3/uL (4.8-10.8)
[2025-01-19 12:15] LABS: Acetaminophen LAB 3 mcg/mL (<30); Alanine Aminotransferase 18 U/L (0-40); Albumin Level 3.4 g/dL (3.5-5.0); Alkaline Phosphatase 121 U/L (39-117); Anion Gap 11 (12-20); Aspartate Amino Transferase 28 U/L (5-37); Blood Urea Nitrogen 26 mg/dL (9-16); Calcium 8.5 mg/dL (8.4-10.2); Carbon Dioxide 23 mmol/L (22-29); Chloride 109 mmol/L (96-108); Creatinine Clr Calc Pharmacy 32.8; Estimated Glomerular Filt Rate 28; Magnesium 2.1 mg/dL (1.6-2.6); Potassium 3.9 mmol/L (3.3-5.1); Salicylate < 5.0 mg/dL (15-30); Sodium 139 mmol/L (135-145); Total Protein 6.7 g/dL (6.5-8.0)
--- NOTE | 2025-01-19 12:20 | ED.PSYCH ---
HPI - Psych General Chief Complaint: Psychiatric Symptoms Stated Complaint: SI Time Seen by Provider: 01/19/25 11:02 Source: patient and EMS Mode of arrival: ambulatory Limitations: other (poor historian) History of Present Illness ED Provider: KVNG Huber HPI Narrative: This is a 69-year-old male history of SIRS, bradycardia, CVA, CAD, syncope presenting from [facility] with concerns of suicidal ideation reports to me he just does not want to be around anymore. Tells me that he made suicidal comments at the SNF and that is why they sent him here. According to nursing note he made an SI statements stating that he wanted to go to the top of the staircase and threw himself down in hopes to . No homicidal ideation. He also reports frequent falls and weakness fell 5 times in the last 2 weeks. Reporting left hip pain. He does not recall in the last time he fell. No head strike no loss of consciousness. Patient on aspirin however not on any other blood thinners. Denies chest pain, shortness of breath, nausea, vomiting, abdominal pain, changes in urinary or bowel habits Related Data Home Medications ?Medication ?Instructions ?Recorded ?Confirmed atorvastatin 80 mg tablet 1 tab PO BEDTIME 01/12/21 12/23/24 bupropion HCl 150 mg tablet,12 hr 1 tab PO BID 01/12/21 12/23/24 sustained-release fluoxetine 40 mg capsule 1 cap PO DAILY 01/12/21 12/23/24 trazodone 100 mg tablet 2 tab PO BEDTIME Insomnia 01/12/21 12/23/24 aspirin 81 mg tablet,delayed 1 tab PO DAILY 11/03/21 12/23/24 release omeprazole 20 mg capsule,delayed 20 mg PO DAILY@0630 12/30/23 12/23/24 release amlodipine 2.5 mg tablet 2.5 mg PO DAILY 04/14/24 12/23/24 clopidogrel 75 mg tablet 75 mg PO DAILY 12/23/24 12/23/24 lamotrigine 100 mg tablet 200 mg PO BID 12/23/24 12/23/24 lamotrigine 25 mg tablet 50 mg PO DAILY 12/23/24 12/23/24 metoprolol tartrate 25 mg tablet 25 mg PO DAILY 12/23/24 12/23/24 quetiapine 400 mg tablet,extended 400 mg PO BEDTIME 12/23/24 12/23/24 release 24 hr Previous Rx's ?Medication ?Instructions ?Recorded nitroglycerin 0.4 mg sublingual 0.4 mg sublingual Q5M PRN chest 09/12/22 tablet pain #1 tab blood pressure monitor (Blood #1 ea 01/02/24 Pressure Kit) doxycycline hyclate 100 mg capsule 100 mg PO BID #19 caps 12/27/24 Allergies Allergy/AdvReac Type Severity Reaction Status Date / Time clozapine (From Clozaril) Allergy Unknown RASH Verified 01/19/25 11:13 hydroxyzine (From VISTARIL) Allergy Unknown UNKNOWN Verified 01/19/25 11:13 menthol (From Antihistamine) Allergy Unknown RASH Verified 01/19/25 11:13 nicotine (Nicotine) Allergy Unknown GUM- MAKES Verified 01/19/25 11:13 SICK TO STOMACH nut - unspecified (nut) Allergy Unknown SWELLING Verified 01/19/25 11:13 From Antihistamine Allergy Unknown RASH Uncoded 01/19/25 11:13 Review of Systems Review of Systems: Yes all other systems are reviewed and are negative PMFSH Past Medical History Attestation statement: The following information was validated with the patient. Source: old records reviewed and nursing notes reviewed Medical History Stage 3b chronic kidney disease Multiple falls CAD (coronary artery disease) Schizoaffective disorder Peripheral arterial disease History of CVA (cerebrovascular accident) Bilateral carotid artery stenosis Stroke due to stenosis of carotid artery Arthritis Myocardial infarct Hypertension Surgical History H/O heart artery stent No significant past surgical history Family History Family History Father Heart disease Social History Social History Household Members: None Housing: Apartment Do you presently have visiting nurse or other home services: Yes (machine bander and cellophaner helper services daily) Alcohol intake: former Patient Tobacco Use Status: Current everyday Tobacco user Tobacco use type: Cigar Cigarettes Per Day: 4 Smoked in Last 30 Days: No Second Hand Smoke Exposure: No Use of substances other than those prescribed or required for medical reasons: No Advance Directives: Yes Advance Directives on File: Yes Advance Directives Date on File: 01/18/21 Do you have a plan to hurt others: No Plan service: No Physical Exam Exam: Exam: Appearance: Alert.? Oriented X3.? No acute distress.? Head: Normocephalic, atraumatic, no step-offs or deformities Eyes: Pupils equal, round and reactive to light.? Neck: Normal inspection.? Neck supple.? CVS: Normal heart rate and rhythm.? Pulses normal.? Respiratory: No respiratory distress.? Breath sounds normal.? Abdomen: Soft and nontender.? Skin: Skin warm and dry.? Normal skin color.? Normal skin turgor.? Extremities: No lower extremity edema.? No calf ttp. Global weakness Back: No midline tenderness, no C-spine tenderness, full range of motion, no CVA tenderness bilaterally Neuro: Oriented X 3.? No motor deficit.? No sensory deficit. CN 2-12 intact Vital Signs: Vital Signs: Last Vital Signs Temp 98.1 F 01/19/25 11:17 Pulse 60 01/19/25 15:14 Resp 16 01/19/25 15:14 BP 154/84 H 01/19/25 15:14 Pulse Ox 98 01/19/25 15:14 O2 Del Method Room Air 01/19/25 15:14 BMI result Body Mass Index 27.3 vss Course Reevaluation(s) Reevaluation #1: CBC with a normocytic anemia appears to be around patient's baseline. Chemistry with elevated BUN and creatinine higher than baseline. Urine without abnormality. Urine toxicology negative. Salicylates, acetaminophen ethanol negative. CT head unchanged from previous. Generalized atrophy with moderate to extensive white matter changes in sequelae of prior presume infarcts within the right frontal region and basal ganglia no hemorrhage or shift. Hip x-ray unremarkable. Time: 14:48 Reevaluation #2: At this time patient to be placed into observation to allow more time to be evaluated by care team at time observation started patient common cooperative no acute distress will continue to monitor., patient denying suicidal ideation at this time\ Time: 14:51 Reevaluation #3: Patient was seen and evaluated by the care team he denies SI and HI. Just made coments earlier when he thought of his chronic condition. Coming from SNF plan is to return back. Educated patient on diagnosis and treatment plan, answered all question, patient verbalizes understanding. At this time patient will be discharged home, advised to return with new or worsening symptoms. Educated on worrisome signs and symptoms and when to return. At this time I feel comfortable discharge home. Additional Reevaluation(s): Patient's repeat BMP with elevated BUN and creatinine still however slightly lower than the initial read this is after a L of fluid a 2 L ordered. Patient can return back to SNF after this. He should have close monitoring of kidney function and follow up with PCP. At baseline his creatinine is around 1.9, 2. Educated patient on diagnosis and treatment plan, answered all question, patient verbalizes understanding. At this time patient will be discharged home, advised to return with new or worsening symptoms. Educated on worrisome signs and symptoms and when to return. At this time I feel comfortable discharge home. 1801 Sign out to Orquidea CALDERON repeat BMP Medications Administered Discontinued Medications Generic Name Dose Route Start Last Admin Trade Name Freq PRN Reason Stop Dose Admin Sodium Chloride 1,000 mls @ 999 mls/hr 01/19/25 15:00 01/19/25 17:07 Ns IV 01/19/25 16:00 Infused .Q1H1M ZARINA Infusion Sodium Chloride 1,000 mls @ 999 mls/hr 01/19/25 16:30 01/19/25 17:38 Ns IV 01/19/25 17:30 999 mls/hr .Q1H1M ZARINA Administration Sodium Chloride 1,000 mls @ 999 mls/hr 01/19/25 18:00 01/19/25 18:05 Ns IV 01/19/25 19:00 999 mls/hr .Q1H1M ZARINA Administration Medical Decision Making Medical Decision Making [facility] Narrative: 69-year-old male presents with suicidal ideation. Tells me he is having left hip pain due to frequent falls lately. Physical exam global weakness no focal neuro deficits. Domingo catheter in place History and physical exam concerning for possible schizoaffective/schizophrenia with suicidal ideation. Weakness is global, not ascending unlikely Guillain-[place]valde or demyelinating process. Will rule out UTI electrolyte abnormalities. Low suspicion for intracranial hemorrhage, stroke, posterior stroke. Will rule out hip fracture although unlikely. No signs of neurovascular compromise or acute threat to limb. Plan labs, imaging and care team Differential Diagnosis Differential Diagnoses: The differential diagnosis associated with the presentation includes (History and physical exam concerning for possible schizoaffective/schizophrenia with suicidal ideation. Weakness is global, not ascending unlikely Guillain-U[place]de or demyelinating process. Will rule out UTI electrolyte abnormalities. Low suspicion for intracranial hemorrhage, stroke, posterior str) Admission/Observation Consideration of admission/observation: Escalation of care including admission/observation considered Lab Data MDM Lab Attestation statement: I reviewed the patient's lab results. 01/19/25 11:54 01/19/25 18:48 Labs: Lab Results 01/19/25 01/19/25 01/19/25 Range/Units 11:54 14:05 17:16 WBC 10.2 (4.8-10.8) X10*3/uL RBC 3.85 L (4.60-5.80) X10*6/uL Hgb 11.4 L (14.0-18.0) g/dl Hct 34.1 L (42.0-52.0) % MCV 88.6 (80.0-98.0) fL MCH 29.6 (27.0-33.0) pg MCHC 33.4 (31.0-36.0) g/dl RDW 15.3 (11.0-16.0) % Plt Count 215 (160-400) X10*3/uL MPV 11.0 (9.4-12.4) fL Immature Gran % (Auto) 0.4 (0.0-0.4) % Neut % (Auto) 60.0 (45-73) % Lymph % (Auto) 23.5 (20-40) % [place] % (Auto) 9.3 (2-11) % Eos % (Auto) 5.8 H (0-4) % Baso % (Auto) 1.0 (0-2) % Lymph # (Auto) 2.4 (1.2-4.9) X10*3/uL [place] # (Auto) 1.0 (0.1-1.2) X10*3/uL Eos # (Auto) 0.6 H (0.0-0.4) X10*3/uL Baso # (Auto) 0.1 (0.0-0.2) X10*3/uL Abs Immat Gran (auto) 0.04 H (0.00-0.03) X10*3/uL Absolute Neuts (auto) 6.2 (2.0-8.3) x10*3/uL Absolute Nucleated RBC 0.000 (0.0-0.012) X10*3/uL Nucleated RBC % (auto) 0.0 (0.0-0.2) /100WBC Sodium 139 142 (135-145) mmol/L Potassium 3.9 3.6 (3.3-5.1) mmol/L Chloride 109 H 112 H (96-108) mmol/L Carbon Dioxide 23 24 (22-29) mmol/L Anion Gap 11 L 10 L (12-20) BUN 26 H 24 H (9-16) mg/dL Creatinine 2.36 H 2.33 H (0.5-1.4) mg/dL Estim Creat Clear Calc 32.8 33.3 Estimated GFR 28 28 Random Glucose 142 H 99 (60-115) mg/dL Calcium 8.5 8.2 L (8.4-10.2) mg/dL Magnesium 2.1 (1.6-2.6) mg/dL Total Bilirubin 0.5 0.4 (0.0-1.0) mg/dL AST 28 29 (5-37) U/L ALT 18 15 (0-40) U/L Alkaline Phosphatase 121 H 115 (39-117) U/L Total Creatine Kinase 109 (38-174) U/L Total Protein 6.7 6.6 (6.5-8.0) g/dL Albumin 3.4 L 3.2 L (3.5-5.0) g/dL Urine Color Yellow Urine Appearance Clear Urine pH 6.5 (5.0-9.0) Ur Specific [place] 1.010 (1.005-1.025) Urine Protein Negative (Neg-Trace) mg/dL Urine Glucose (UA) Negative (Negative) mg/dL Urine Ketones Negative (Negative) mg/dL Urine Blood Negative (Negative) Urine Nitrite Negative (Negative) Ur Leukocyte Esterase Negative (Negative) Salicylates < 5.0 L (15-30) mg/dL Urine Opiates Screen Not Detected (Not Detect) Ur Buprenorphine Scrn Not Detected (Not Detect) ng/mL Ur Oxycodone Screen Not Detected (Not Detect) ng/mL Urine Methadone Screen Not Detected (Not Detect) ng/mL Urine Fentanyl Screen Not Detected (Not Detect) Acetaminophen 3 (<30) mcg/mL Ur Barbiturates Screen Not Detected (Not Detect) Ur Phencyclidine Scrn Not Detected (Not Detect) Ur Amphetamines Screen Not Detected (Not Detect) U Benzodiazepines Scrn Not Detected (Not Detect) Urine Cocaine Screen Not Detected (Not Detect) U Marijuana (THC) Screen Not Detected (Not Detect) Ethyl Alcohol < 10 mg/dL 01/19/25 Range/Units 18:48 WBC (4.8-10.8) X10*3/uL RBC (4.60-5.80) X10*6/uL Hgb (14.0-18.0) g/dl Hct (42.0-52.0) % MCV (80.0-98.0) fL MCH (27.0-33.0) pg MCHC (31.0-36.0) g/dl RDW (11.0-16.0) % Plt Count (160-400) X10*3/uL MPV (9.4-12.4) fL Immature Gran % (Auto) (0.0-0.4) % Neut % (Auto) (45-73) % Lymph % (Auto) (20-40) % [place] % (Auto) (2-11) % Eos % (Auto) (0-4) % Baso % (Auto) (0-2) % Lymph # (Auto) (1.2-4.9) X10*3/uL [place] # (Auto) (0.1-1.2) X10*3/uL Eos # (Auto) (0.0-0.4) X10*3/uL Baso # (Auto) (0.0-0.2) X10*3/uL Abs Immat Gran (auto) (0.00-0.03) X10*3/uL Absolute Neuts (auto) (2.0-8.3) x10*3/uL Absolute Nucleated RBC (0.0-0.012) X10*3/uL Nucleated RBC % (auto) (0.0-0.2) /100WBC Sodium 144 (135-145) mmol/L Potassium 4.0 (3.3-5.1) mmol/L Chloride 114 H (96-108) mmol/L Carbon Dioxide 23 (22-29) mmol/L Anion Gap 11 L (12-20) BUN 22 H (9-16) mg/dL Creatinine 2.22 H (0.5-1.4) mg/dL Estim Creat Clear Calc 34.9 Estimated GFR 30 Random Glucose 106 (60-115) mg/dL Calcium 7.9 L (8.4-10.2) mg/dL Magnesium (1.6-2.6) mg/dL Total Bilirubin (0.0-1.0) mg/dL AST (5-37) U/L ALT (0-40) U/L Alkaline Phosphatase (39-117) U/L Total Creatine Kinase (38-174) U/L Total Protein (6.5-8.0) g/dL Albumin (3.5-5.0) g/dL Urine Color Urine Appearance Urine pH (5.0-9.0) Ur Specific [place] (1.005-1.025) Urine Protein (Neg-Trace) mg/dL Urine Glucose (UA) (Negative) mg/dL Urine Ketones (Negative) mg/dL Urine Blood (Negative) Urine Nitrite (Negative) Ur Leukocyte Esterase (Negative) Salicylates (15-30) mg/dL Urine Opiates Screen (Not Detect) Ur Buprenorphine Scrn (Not Detect) ng/mL Ur Oxycodone Screen (Not Detect) ng/mL Urine Methadone Screen (Not Detect) ng/mL Urine Fentanyl Screen (Not Detect) Acetaminophen (<30) mcg/mL Ur Barbiturates Screen (Not Detect) Ur Phencyclidine Scrn (Not Detect) Ur Amphetamines Screen (Not Detect) U Benzodiazepines Scrn (Not Detect) Urine Cocaine Screen (Not Detect) U Marijuana (THC) Screen (Not Detect) Ethyl Alcohol mg/dL Independent Interpretation I performed an independent interpretation of an: CT Scan (no acute findings ) Radiology Impression Discussion of test interpretation with radiology: I have reviewed the radiologist's reading. Independent Historian Clinical information obtained from an independent historian. History obtained from or confirmed by: EMS External Record Review External record reviewed: Inpatient record, Office record, Outpatient record, Prior outpatient labs, Prior outpatient radiology, Primary care record and Outside ED record Chronic Conditions Patient?s care impacted by: Other (see hpi ) Critical Care Time Critical Care Time Critical Care Time: Yes Total Critical Care Time: 35 Attestation: I attest to this time spent taking care of the patient, obtaining history, physical, reviewing labs, imaging, treatment of patients condition +/- specialist/hospitalist consult +/- procedure Discharge Plan Discharge Clinical Impression: Suicidal ideation, Schizoaffective disorder, Hip pain, BRENNA (acute kidney injury) Patient Disposition: [facility] Transfer Details: DC back to [facility] Instructions: Acute Kidney Injury (DC), Schizoaffective Disorder (ED), Hip Pain (ED), Suicide Prevention (ED) Additional Instructions: Take your medications as prescribed. If you were prescribed antibiotics today, it is important that you take your medication to their entirety, do not skip any doses, do not finish them early. Follow-up with your primary care provider this week. Return to the emergency department with new or worsening symptoms. Such as fevers, chills, chest pain, shortness of breath, nausea, vomiting, dizziness, headache, vision changes, lethargy In case of emergency call 911 Patient's kidney function were elevated today initially 26 BUN, creatinine 2.36 after 1 L of IV fluids improved to 24 BUN, creatinine 2.33. He needs to follow up with provider and labs should be repeated within a week. Prescriptions: No Action fluoxetine 40 mg capsule 1 cap PO DAILY bupropion HCl 150 mg tablet sustained-release 12 hr 1 tab PO BID atorvastatin 80 mg tablet 1 tab PO BEDTIME trazodone 100 mg tablet 2 tab PO BEDTIME aspirin 81 mg tablet,delayed release (DR/EC) 1 tab PO DAILY nitroglycerin 0.4 mg tablet, sublingual 0.4 mg sublingual Q5M PRN (Reason: chest pain) Qty: 1 0RF Rx Instructions: do not exceed 3 doses per episode omeprazole 20 mg capsule,delayed release(DR/EC) 20 mg PO DAILY@0630 ([facility]) blood pressure monitor [Blood Pressure Kit] Kit See Rx Instructions .Route Qty: 1 0RF Rx Instructions: As directed amlodipine 2.5 mg tablet 2.5 mg PO DAILY lamotrigine 25 mg tablet 50 mg PO DAILY lamotrigine 100 mg tablet 200 mg PO BID quetiapine 400 mg tablet extended release 24 hr 400 mg PO BEDTIME clopidogrel 75 mg tablet 75 mg PO DAILY metoprolol tartrate 25 mg tablet 25 mg PO DAILY doxycycline hyclate 100 mg capsule 100 mg PO BID Qty: 19 0RF Referrals: Balaji Mayo MD [Primary Care Provider, Internal Medicine] Interventions: [place]-Suicide Risk Severity Scale Last Done: 01/19/25 11:17 Print Language: Georgian
--- NOTE | 2025-01-19 12:26 | ECG_ITS ---
Test Reason : AMS Blood Pressure : */* mmHG Vent. Rate : 53 BPM Atrial Rate : 53 BPM P-R Int : 166 ms QRS Dur : 102 ms QT Int : 494 ms P-R-T Axes : 20 -21 3 degrees QTcB Int : 463 ms Sinus bradycardia Minimal voltage criteria for LVH, may be normal variant ( R in aVL ) Nonspecific ST abnormality Abnormal ECG When compared with ECG of 22-Dec-2024 18:30, Nonspecific T wave abnormality no longer evident in Lateral leads Referred By: Michelle Huber Electronically Signed By: Néstor Guardado
[2025-01-19 13:57] VITALS: BP 157/82; PULSE 61; RESP 14; O2SAT 98
[2025-01-19 14:13] LABS: Appearance Urine Clear; Glucose Urine UA Negative (Negative); PH 6.5 (5.0-9.0); Specific Gravity - Urine 1.010 (1.005-1.025)
[2025-01-19 14:22] LABS: Cannabinoid Screen Urine Not Detected (Not Detect)
[2025-01-19 15:14] VITALS: BP 154/84; PULSE 60; RESP 16; O2SAT 98
[2025-01-19 17:36] LABS: Alanine Aminotransferase 15 U/L (0-40); Albumin Level 3.2 g/dL (3.5-5.0); Alkaline Phosphatase 115 U/L (39-117); Anion Gap 10 (12-20); Aspartate Amino Transferase 29 U/L (5-37); Blood Urea Nitrogen 24 mg/dL (9-16); Calcium 8.2 mg/dL (8.4-10.2); Carbon Dioxide 24 mmol/L (22-29); Chloride 112 mmol/L (96-108); Creatinine Clr Calc Pharmacy 33.3; Estimated Glomerular Filt Rate 28; Potassium 3.6 mmol/L (3.3-5.1); Sodium 142 mmol/L (135-145); Total Protein 6.6 g/dL (6.5-8.0)
[2025-01-19 19:08] LABS: Anion Gap 11 (12-20); Blood Urea Nitrogen 22 mg/dL (9-16); Calcium 7.9 mg/dL (8.4-10.2); Carbon Dioxide 23 mmol/L (22-29); Chloride 114 mmol/L (96-108); Creatinine Clr Calc Pharmacy 34.9; Estimated Glomerular Filt Rate 30; Potassium 4.0 mmol/L (3.3-5.1); Sodium 144 mmol/L (135-145)
[2025-01-19 21:09] VITALS: BP 162/86; PULSE 62; RESP 16; TEMP 37.2; O2SAT 98
== END 2025-01-19 21:13 | disposition skilled nursing facility (03) ==
PROVIDERS: Physician Assistant; Emergency Provider Emergency Medicine; PCP Family Medicine
DX: R45.851 Suicidal ideations (principal); R42 Dizziness and giddiness; M25.552 Pain in left hip; F20.9 Schizophrenia, unspecified; N17.9 Acute kidney failure, unspecified
CPT/HCPCS: 36415; 70450; 73502; 80048; 80053; 80143; 80179; 80307; 81003; 82550; 83735; 85025; 93005; 96360; 96361; 99285; S9485

== ENCOUNTER → 2025-01-19 12:26 | Outpatient (BNV) | payer OTHER, SELFPAY | PROVIDERS: Emergency Provider Emergency Medicine; PCP Family Medicine; Visit Provider Internal Medicine Cardiovascular Disease | DX: R00.1 Bradycardia, unspecified (principal) | CPT/HCPCS: 93010 ==

== ENCOUNTER → 2025-01-19 12:26 | Outpatient (BNV) | payer OTHER, SELFPAY | PROVIDERS: Emergency Provider Emergency Medicine; PCP Family Medicine; Visit Provider Radiology Diagnostic Radiology | DX: G31.9 Degenerative disease of nervous system, unspecified (principal); R90.82 White matter disease, unspecified; M25.552 Pain in left hip | CPT/HCPCS: 70450; 73502 ==

== ENCOUNTER 2025-02-04 18:24 | Emergency (ER) | payer OTHER, SELFPAY ==
--- OUTSIDE RECORDS SUMMARY | 2023-10-23 13:28 | XMS_ITS | Encounter Summary ---
Author Organization [facility] Address [address] [place] [address] Phone Care Team Providers Care Asset Analyst Name Role Phone Balaji Mayo MD Primary Care Provider + Balaji Mayo MD Unavailable [phone] Encounter Details Date Type Department Care Team (Late st Contact Info) Description 10/23/2023 1:28 PM EDT Hospital Encounter [facility] [address] [place] [address] Anupama Ball FNP [address] [place] [id number] [email or web address] Social History Tobacco Use Types Packs/Day Years Used Date Smoking Tobacco: Some Days Cigars Smokeless Tobacco: Never Home Health Assessment: Transportation Answer Date Recorded Lack of Transportation (Medical) No 03/29/2023 Lack of Transportation (Non-Medical) No 03/29/2023 Patient Unable or Declines to Respond No 03/29/2023 Education Answer Date Recorded Are you interested in more education? Not on liz e 08/20/2022 Are you concerned about learning? Not on file 08/20/2022 No 08/20/2022 No 08/20/2022 Digital Access Answer Date Recorded No 09/13/2022 No 09/13/2022 Reliable internet access at home? Not on file 09/13/2022 Device with a working camera? Not on file Intimate Partner Violence Answer Date R ecorded Are you denied basic needs s uch as food, clothing, or medical care? No 11/28/2023 In the past 12 months have y ou been in a relationship with a person who hurts, threatens, or tries to control you? No 11/28/2023 Are you denied basic needs s uch as food, clothing, or medical care? No 11/28/2023 In the past 12 months have y ou been in a relationship with a person who hurts, threatens, or tries to control you? No 11/28/2023 Sex and Gender Information Value Date Recorded Sex Assigned at Not on file Legal Sex Male 9:01 AM EST Gender Identity Not on file Sexual Orientation Not on file documented as of this encounter Functional Status * Calculated C-SSRS Risk Score (Lifetime/Recent) Answer Date of Assessment Author No Risk Indicated 11/28/2023 11:41 PM EDT Eveline Toro RN * [place] Suicide Severity Rating Scale (Screener/Recent Self-Report) Question Answer Date of Assessment Author 1. Wish to be (Past 1 Month) No 024 11:41 PM EDT Eveline Aguiar RN 2. Non-Specific Active Suici kedar Thoughts (Past 1 Month) No 11/28/2023 11:41 PM EDT Tony Aguiar RN 6. Suicidal Behavior (Lifetime) No 1:24 AM EDT Rayne Hernadnez RN documented as of this encounter Plan of Treatment Not on file documented as of this encounter Procedures Procedure Name Priority Date/Time Associated Diagnosis Comments XR FOOT 3 OR MORE VIEWS (RIGHT) Urgent/patient waiting 10/23/2023 1:36 PM EDT Closed nondisplaced fracture of phalanx of lesser toe of right foot, unspecified phalanx, initial encounter documented in this encounter Results * XR FOOT 3 OR MORE VIEWS (RIGHT) (10/23/2023 1:36 PM EDT) Anatomical Region Laterality Modality Foot Right Computed Radiogr aphy 10/23/2023 2:10 PM EDT Impressions 10/23/2023 2:13 PM EDT Transverse lucencies with irregularity along the distal third and fourth digit distal phalanges on oblique views, may suggest nondisplaced/minimally displaced fractures. The second digit distal phalanx is poorly assessed due to angulation. Flexion versus minimal palmar subluxation of the second digit PIP be positional or posttraumatic. Minimal additional flexion at the third and fourth DIPs. Mild degenerative changes along the forefoot and interphalangeal joints. Plantar calcaneal spur and occlusion specified. Narrative 10/23/2023 2:13 PM EDT XR FOOT 3 OR MORE VIEWS (RIGHT) Referring clinician's provided indication for this examination in [facility]: Trauma; DROPPED A CAN ON FOOT YESTERDAY. PAIN, SWELLING, BRUISING DISTAL FOOT AND TOES 2-4 COMPARISON: None. Procedure Note Anupama Camacho MD - 10/23/2023 XR FOOT 3 OR MORE VIEWS (RIGHT) Referring clinician's provided indication for this examination in Epic:Trauma; DROPPED A CAN ON FOOT YESTERDAY. PAIN, SWELLING, BRUISING DISTALFOOT AND TOES 2- 4 COMPARISON: None. IMPRESSION: Transverse lucencies with irregularity along the distal third and fourthdigit distal phalanges on oblique views, may suggestnondisplaced/minimally displaced fractures. The second digit distalphalanx is poorly assessed due to angulation. Flexion versus minimal palmar subluxation of the second digit PIP bepositional or posttraumatic. Minimal additional flexion at the third andfourth DIPs. Mild degenerative changes along the forefoot and interphalangeal joints. Plantar calcaneal spur and occlusion specified. Anupama Ball ROVING OR YARN COLOR CHECKER IMG XR LOWER EXTREMITY Genie l Result documented in this encounter Visit Diagnoses Not on filedocumented in this encounter Care Teams Asset Analyst Relationship Specialty Start Date End Date Balaji Mayo MD [address] [place] [phone] PCP - General Family Medicine 10/23/23 Balaji Mayo MD [address] [place] [phone] Family Medicine 10/23/23 documented as of this encounter Additional Source Comments The information contained in this document represents components of the legal health record. It is not the complete legal health record.[facility]
[2025-02-04 18:35] VITALS: BP 100/70; BP 195/92; PULSE 76; PULSE 80; RESP 16; TEMP 36.9; O2SAT 97; O2SAT 99; BMI 32.5
[2025-02-04 19:55] VITALS: BP 195/97; PULSE 76; TEMP 36.6; O2SAT 96
--- OUTSIDE RECORDS SUMMARY | 2025-02-04 20:27 | XMS_ITS | Encounter Summary ---
Author Organization [facility] Address [address] [place] [phone] Phone Care Team Providers Care Sheet Rock Layer Name Role Phone Balaji Mayo MD Primary Care Provider + Balaji Mayo MD Unavailable [phone] Encounter Details Date Type Department Care Team (Late st Contact Info) Description 11/28/2023 Procedure Pass [facility], Ct Scan - [address] [id number] Social History Tobacco Use Types Packs/Day Years [...] 11:41 PM EDT Eveline Toro RN * [place] Suicide Severity Rating Scale (Screener/Recent Self-Report) Question [...] on filedocumented in this encounter Care Teams Sheet Rock Layer Relationship Specialty Start Date End Date Balaji Mayo MD [address] [place] [phone] PCP - General Family Medicine 10/23/23 Balaji Mayo MD [address] [place] [phone] Family Medicine 10/23/23 documented as of this encounter Additional Source Comments The information contained in this document represents components of the legal health record. It is not the complete legal health record.[facility]
--- OUTSIDE RECORDS SUMMARY | 2025-02-04 20:27 | XMS_ITS | Clinical Summary ---
Author Organization [facility] Address [address] [place] [phone] Phone Care Team Providers Care Auto Mechanic Apprentice Name Role Phone Balaji Mayo MD Primary Care Provider + Balaji Mayo MD Unavailable [phone] Allergies Active Allergy Reactions Criticality Noted Date [...] 01/29/2019, Additional history exists COVID-19 VACCINE ( - 2024- season) 2024 Adult Td,Tdap Booster 08/03/2027 08/02/2017 [...] file Insurance MEDICARE PART A & B [facility] MEDICARE REPLACEMENT MEDICARE PART A & B [facility] MEDICARE REPLACEMENT MEDICARE PART A & B MEDICARE PART A & B MEDICARE PART A & B MEDICARE REPLACEMENT [employer] [id number] MEDICARE PART A & B MEDICARE PART A & B O MEDICARE REPLACEMENT [employer] [place] [id number] MEDICARE PART A & B Member Subscriber Plan / Payer (Ef fective 1996-Present) Name:Edward Rosa Member ID:[id number] Relation to Subscriber:Self Name:Edward Rosa Subscriber ID:[id number] Payer ID:[id number] Group ID:Not on file Type:Medicare Address: [employer] [address] MEDICARE REPLACEMENT [employer] [place] [id number] MEDICARE PART A & B [facility] MEDICARE REPLACEMENT [address] [address] [id number] [place] [address] MEDICARE REPLACEMENT [facility] MEDICARE REPLACEMENT [address] [address] MEDICARE REPLACEMENT [facility] MEDICARE REPLACEMENT [facility] MEDICARE REPLACEMENT Care Teams Auto Mechanic Apprentice Relationship Specialty Start Date End Date Balaji Mayo MD [address] [place] [id number] PCP - General Family Medicine 10/23/23 Balaji Mayo MD [address] [place] [phone] Family Medicine 10/23/23 Additional Source Comments The information contained in this document represents components of the legal health record. It is not the complete legal health record.[facility]
--- OUTSIDE RECORDS SUMMARY | 2025-02-04 20:27 | XMS_ITS | Encounter Summary ---
Author Organization [facility] Address [address] [place] [address] Phone Care Team Providers Care Ben Day Artist Name Role Phone Balaji Mayo MD Primary Care Provider + Balaji Mayo MD Unavailable [phone] Encounter Details Date Type Department Care Team (Late st Contact Info) Description 12/13/2023 Transcribe Orders [facility] Laboratory [address] [place] [address] Brody Mejia MD [address] [place] [address] [email or web address] Primary osteoarthritis, unspecified site (Primary Dx) [...] EDT) WBC 7.27 4.00 - 11.00 K/uL [facility] RBC 3.82(L) 3.90 - 5.69 M/uL [facility] HGB 10.8(L) 12.4 - 17.3 g/dL [facility] HCT 34.5(L) 37.0 - 51.0 % [facility] PLT 320 140 - 430 K/uL [facility] MCV 90.3 78.0 - 97.0 fL [facility] MCH 28.3 25.0 - 33.0 pg [facility] MCHC 31.3(L) 32.0 - 36.0 g/dL [facility] RDW 14.7 11.0 - 15.0 % [facility] MPV 11.4 8.4 - 12.8 fl [facility] Blood 12/13/2023 9:20 AM EDT 12/13/2023 12:06 PM EDT us Brody Mejia MD LAB BLOOD ORDERABLES Genie l Result Performing Organization Address [facility] Co de Phone Number [address] [address] * (ABNORMAL) Basic metabolic panel (12/13/2023 9:20 AM EDT) SODIUM 140 133 - 146 mmol/L [facility] CHLORIDE 103 96 - 108 mmol/L [facility] POTASSIUM 4.7 3.3 - 5.1 mmol/L [facility] Comment:Specimen slightly he molyzed, result may be falsely elevated. CO2 27 21 - 35 mmol/L [facility] BUN 22(H) 6 - 19 mg/dL [facility] CREATININE 1.90(H) 0.5 - 1.5 mg/dL [facility] GLUCOSE 127(H) 70 - 99 mg/dL [facility] CALCIUM 8.9 8.4 - 10.3 mg/dL [facility] EGFR 38(L) >59 mL/min/1.7 3m2 [facility] Comment:Estimated glomerular filtration rate calculated using the CKD-EPI refit equation. ANION GAP 15 10 - 20 mmol/L [facility] Blood 12/13/2023 9:20 AM EDT 12/13/2023 12:06 PM EDT us Brody Mejia MD LAB BLOOD ORDERABLES Genie l Result Performing Organization Address [facility]/ZIP Co de Phone Number [address] [address] documented in this encounter Visit Diagnoses Diagnosis Primary osteoarthritis, unspecified site- Primary documented in this encounter Care Teams Ben Day Artist Relationship Specialty Start Date End Date Balaji Mayo MD [address] [place] [address] PCP - General Family Medicine 10/23/23 Balaji Mayo MD [address] [place] [address] Family Medicine 10/23/23 documented as of this encounter Additional Source Comments The information contained in this document represents components of the legal health record. It is not the complete legal health record.[facility]
--- OUTSIDE RECORDS SUMMARY | 2025-02-04 20:27 | XMS_ITS | Encounter Summary ---
Author Organization [facility] Address [address] [place] [address] Phone Care Team Providers Care Audiology Director Name Role Phone Balaji Mayo MD Primary Care Provider + Balaji Mayo MD Primary Care Provider + Balaji Mayo MD Unavailable [phone] Encounter Details Date Type Department Care Team (Latest Contact Info) Description 09/21/2021 Transcribe Orders [facility] Laboratory [address] [place] [address] [phone] Margie Maldonado MD [address] [place] [address] [phone] [email or web address] Hypertension, unspecified type (Primary Dx); Abdominal aortic [...] EDT) WBC 9.12 4.00 - 11.00 K/uL [facility] RBC 4.47 3.90 - 5.69 M/uL [facility] HGB 13.5 12.4 - 17.3 g/dL [facility] HCT 41.1 37.0 - 51.0 % [facility] PLT 258 140 - 430 K/uL [facility] MCV 91.9 78.0 - 97.0 fL [facility] MCH 30.2 25.0 - 33.0 pg [facility] MCHC 32.8 32.0 - 36.0 g/dL [facility] RDW 13.6 11.0 - 15.0 % [facility] MPV 11.3 8.4 - 12.8 fl [facility] NRBC 0.00 0 /100 WBCs [facility] ABSOLUTE NRBC 0.00 0 K/uL [facility] Blood 09/21/2021 6:30 AM EDT 09/21/2021 8:23 AM EDT us Margie Maldonado MD LAB BLOOD ORDERABLES Final Res ult [address] [address] * (ABNORMAL) Comprehensive metabolic panel (09/21/2021 6:30 AM EDT) SODIUM 141 133 - 146 mmol/L [facility] POTASSIUM 4.2 3.3 - 5.1 mmol/L [facility] CHLORIDE 107 96 - 108 mmol/L [facility] CO2 24 21 - 35 mmol/L [facility] BUN 16 6 - 19 mg/dL [facility] CREATININE 1.70(H) 0.5 - 1.5 mg/dL [facility] GLUCOSE 94 70 - 99 mg/dL [facility] ALBUMIN 3.2(L) 3.9 - 4.8 g/dL [facility] TOTAL PROTEIN 6.0(L) 6.5 - 8.0 g/dL [facility] CALCIUM 8.8 8.4 - 10.3 mg/dL [facility] ALKALINE PHOSPHATASE 110 39 - 117 U/L [facility] TOTAL BILIRUBIN 0.2 0.0 - 1.2 mg/dL [facility] AST 16 0 - 37 U/L [facility] ALT 19 0 - 40 U/L [facility] GLOBULIN 2.8 1 - 4.8 g/dL [facility] EGFR 44(L) >59 mL/min/1.7 3m2 [facility] Comment:Estimated glomerular filtration rate calculated using the CKD-EPI refit equation. ANION GAP 14 10 - 20 mmol/L [facility] Blood 09/21/2021 6:30 AM EDT 09/21/2021 8:23 AM EDT us Margie Maldonado MD LAB BLOOD ORDERABLES Final Res ult [address] [address] documented in this encounter Visit Diagnoses Diagnosis Hypertension, unspecified type- Primary Abdominal aortic aneurysm without rupture Abdominal aneurysm without mention of rupture Benign prostatic hyperplasia, unspecified whether lower urinary tract symptoms present documented in this encounter Care Teams Audiology Director Relationship Specialty Start Date End Date Balaji Mayo MD [address] [place] [address] PCP - General Family Medicine 06/01/21 10/22/23 Balaji Mayo MD [address] [place] [address] PCP - General Family Medicine 10/23/23 Balaji Mayo MD [address] [place] [address] Family Medicine 10/23/23 documented as of this encounter Additional Source Comments The information contained in this document represents components of the legal health record. It is not the complete legal health record.[facility]
--- OUTSIDE RECORDS SUMMARY | 2025-02-04 20:27 | XMS_ITS | Data Portability ---
Author Organization [facility] Address [address] [place] [address] Care Team Providers Care Asphalt Tamper Name Role Phone RONIT JENS Primary Care Provider Assessment Encounter Date Assessment Date Assessment LastModified [...] to Warfarin therapy in the post-operative period. [email or web address] Not available 11/07/2023 14:05:12 11/14/2023 11/14/2023 PRIMARY [...] provider is Dr. Jens Mayo and his redrying machine operator is Dr. Conrad, his vascular provider is [...] osteoarthritis of the right hip. There is cqze-uv-tosz articulation, subchondral sclerosis and osteophyte formation. LABORATORY [...] The patient was also seen by his redrying machine operator who stated that using the [employer] cardiac risk assessment tool he is at [...] Tim with a cell phone number of [phone]. [email or web address] Not available 11/15/2023 08:56:46 06/06/2024 06/06/2024 [...] requires a repeat injection in 3 months [email or web address] Not available 06/06/2024 12:56:35 Plan of Treatment [...] shoe horn, etc. 2023 024 [email or web address] 14 [facility], [address] [facility], [place] [address], [place], [address], 08:08:42 physical therapist referral - S/P ARTHR 11/22/23 BEGIN POST OP PT ON 12/04/23 Gait Training, Maribelli femi, Conditionin g Please bring this script and attached protocol with you to your physical therapy appointment 2023 024 [email or web address] 14 [facility], [address], [place], [address], 4 08:08:42 Procedures None recorded. Surgeries None recorded. Imaging XR, hip + pelvis, unilateral, 2 or 3 view - 204 arthr 2nd p/o AB 2023 024 [email or web address] [facility], [address], [address], [place], [address], 4 14:40:40 XR, hip + pelvis, unilateral, 2 or 3 view - rm 205 2V 1st PO ARTHR AB 2023 024 [email or web address] [facility], [address], [address], [place], [address], 4 16:35:33 XR, hip + pelvis, bilateral, 3 or 4 view - ROOM 202, B/ Hip Pain (MINERALOGY PROFESSOR per AB) 2023 024 [email or web address] 14 [facility], [address], [address], [place], [address], 4 08:08:42 Medication Orders None recorded. Patient [...] etc. Referring Physician: Seth Gomez, Orthopedic Surgery, [id number] Encounter Date: 11/07/2023 Physical Therapist Referral for Osteoarthritis of right hip joint S/P ARTHR 11/22/23 BEGIN POST OP PT ON 12/04/23Gait Training, Strengthening, Conditioning Please bring this script and attached protocol with you to your physical therapy appointment Referring Physician: Seth Gomez Orthopedic Surgery, [id number] Encounter Date: 11/07/2023 Results Created Date Observation Date Name Description Value Unit Range Abnormal Flag Note LastModifiedBy Organization Detail LastModifiedTime 11/01/19 24 10/23/2023 XR, foot No observ ation record ed. [address], [address], 11/01/2023 11:41:10 11/07/19 24 11/07/2023 XR, hip + pelvi s, bilat eral, 3 or 4 view http:/ [email or web address] ?Encry pted=s hAaTro YD8dLq bEUv6g %2BXZw aYqtaq 0bqfl% 2Fg9IQ a4ajBk vP9nXo QUaueC m3YtLR FvZlgJ JJ8mAn HZtai3 7s2509 AC0Kpb X%2BGU qTeUC8 mr84%3 D INTERFACE [facility] [address], [place], [address], 11/07/2023 12:59:21 11/21/19 24 11/07/2023 XR, hip + pelvi s, bilat eral, 3 or 4 view [email or web address] ?Encry pted=s hAaTro YD8dLq bEUv6g %2BXZw aYqtaq 0bqfl% 2Fg9IQ a4ajBk vP9nXo QUaueC m3YtLR FvZlgJ JJ8mAn HZtai3 9d9613 AC0Kpb X%2BGU qTeUC8 mr84%3 D INTERFACE [facility] [address], [place], [address], 11/21/2023 14:23:12 11/21/19 24 11/07/2023 XR, hip + pelvi s, bilat eral, 3 or 4 view http:/ [email or web address] ?Encry pted=s hAaTro YD8dLq bEUv6g %2BXZw aYqtaq 0bqfl% 2Fg9IQ a4ajBk vP9nXo QUaueC m3YtLR FvZlg [facility] 5d9099 AC0Kpb X%2BGU qTeUC8 mr84%3 D INTERFACE [facility] [address], [place], [address], 11/21/2023 14:23:13 11/22/19 24 11/22/2023 XR, hip + pelvi s, bilat eral, 3 or 4 view No observ ation record ed. [address], [address], 11/22/2023 18:51:03 11/23/19 24 11/22/2023 XR, hip + pelvi s, bilat eral, 3 or 4 view No observ ation record ed. [address], [address], 11/23/2023 08:03:57 12/08/19 24 12/08/2023 XR, hip + pelvi s, unila teral , 2 or 3 view http:/ [email or web address] ?Encry pted=s hAaTro YD8dLq bEUv6g %2BXZw aYqtaq 0bqfl% 2Fg9IQ a4ajBk vP9nXo QUaueC m3YtLR FvZlg [facility] 8s5738 AC0Kra n6FWKL eUC8mr 84%3D INTERFACE [facility] [address], [place], [address], 12/08/2023 14:52:13 12/08/19 24 12/08/2023 XR, hip + pelvi s, unila teral , 2 or 3 view http:/ [email or web address] ?Encry pted=s hAaTro YD8dLq bEUv6g %2BXZw aYqtaq 0bqfl% 2Fg9IQ a4ajBk vP9nXo QUaueC m3YtLR FvZlgJ JJ8mAn tai3 7a2282 AC0Kra n6FWKL eUC8mr 84%3D INTERFACE [facility] [address], [place], [address], 12/08/2023 14:52:14 12/22/19 24 04/02/2019 imagi ng/di [...] 2Fg9IQ a4ajBk vP9nXo QUaueC m3YtLR FvZlgJ JJ8mAn [facility] 6y1001 AC0Kqa nqBVKS hKiQtr MwF INTERFACE [facility] [address], [place], [address], 01/15/2024 12:45:50 01/15/20 24 01/15/2024 XR, hip + pelvi s, unila teral , 2 or 3 view http:/ [email or web address] ?Encry pted=s hAaTro YD8dLq bEUv6g %2BXZw aYqtaq 0bqfl% 2Fg9IQ a4ajBk vP9nXo QUaueC m3YtLR FvZlgJ JJ8mAn HZtai3 3b1996 AC0Kqa nqBVKS hKiQtr MwF INTERFACE [facility] [address] [facility] [address], [place], [address], 01/15/2024 12:45:52 04/09/20 24 04/04/2024 CT, hip, w/o contr ast No observ ation record ed. [email or web address] [facility] [place] [address] [facility] [address], [place], [address], 04/10/2024 12:25:52 Result Notes Documentation Provider Name and Address Organization Details Recorded Time Xr, Hip + Pelvis, Bilateral, 3 Or 4 View : [email or web address]? Encrypted=elXgDemZQ9uVtsW Uv6g%6AUQiwWetec1wgbb%2Fg 2WCp9ijHcbS2fNeIDgkdSv6Xb ZKQwRuyROA2iPtPFdas35t588 4WR6IbaD%5SJUuYhQM9xl01%3 D Not Available [facility] 11/07/2023 12:59:22 Xr, Hip + Pelvis, Bilateral, 3 Or 4 View : [email or web address] Encrypted=veHmBwnBB8qOlfK Uv6g%3MCHcaQoyjc9eoqa%2Fg 4XSt4smHqyS4oDmNMlvbAd2Ta ALNiJwhHFF3aFgEHjrx32r533 1NH4GnwA%9OMDhHyNA1cm41%3 D Not Available [facility] 11/21/2023 14:23:12 Xr, Hip + Pelvis, Bilateral, 3 Or 4 View : [email or web address] Encrypted=kpXyXsaVZ2kAasM Uv6g%0SYZzgXibzu9susp%2Fg 4XFu9oqGggB8bPbNWzogBj7Ku BFHpMcsJAR3oDmWWgbk15g034 3KW1ZauQ%2OFJkLuRW0qf34%3 D Not Available [facility] 11/21/2023 14:23:14 Xr, Hip + Pelvis, Unilateral, 2 Or 3 View : [email or web address] Encrypted=ryIdXdfXZ0uJnhL Uv6g%1DUYdxLfajk6ujpl%2Fg 8EJa6zxOpuS3vJnZVxykOk3Kh CBHzGqoBPG4fJeVGiel58s294 7JM7Gxzi6SSRLgFY9ej27%3D Not Available [facility] 12/08/2023 14:5 2:13 Xr, Hip + Pelvis, Unilateral, 2 Or 3 View : [email or web address] Encrypted=awLzIysJC5tCrpN Uv6g%4IWWwgAuewk7aqnb%2Fg 5MGa4ycWexW2uLnZFmxjIu3Iv AAYbNbvZHN3lRwEKivm63f358 6VW7Zcdo6YWGKvVS4mu47%3D Not Available [facility] 12/08/2023 14:5 2:15 Xr, Hip + Pelvis, Unilateral, 2 Or 3 View : [email or web address] Encrypted=ggWsIimNG3pHmdC Uv6g%6LAGqeDzfdx3nucy%2Fg 9SSm4cjVtnE9nBdQAezcWh2Mw LPMsBctVYZ4iSzEAkgk75w476 4BW4BaxnkGWRHcQoBazBgB Not Available [facility] 01/15/2024 12:45: 51 Xr, Hip + Pelvis, Unilateral, 2 Or 3 View : [email or web address] Encrypted=znZtKkbOR5zUgbE Uv6g%8BNSgvXzmiw9rvga%2Fg 7EGk2jyEaxY5pBaMMaehGe4Qm DXVuVhvRVD9oFyHFfcl98j199 8US5OlmlhMGYAgCuPbmMlG Not Available [facility] 01/15/2024 12:45: 52 Problems Name Problem SNOMED Code Status Onset Date Resolution Date Notes Provider Name and Address Organization Details Recorded Time No complaint s 170916750 Active Status: 'I'; Not Available [facility] 4 09:20:53 Pain of left hip joint 223420285997 100 Active 2020 Problem Code: M25.552; Problem Code Type: ICD-10; Status: 'A'; Not Available [facility] 4 11:58:50 Osteoarth ritis of right hip joint 080476353652 107 Active 2023 Seth Gomez MD [address] [facility] [address], [place], [address] , [facility] 4 14:05:03 Osteoarth ritis of left hip joint 080238057482 108 Active 2023 Seth Gomez MD [address] [facility] [address], [place], [address] , [facility] 4 14:05:10 History of repair of hip joint 493677425 Active 2024 Seth Gomez MD [address] [facility] [address], [place], [address] , [facility] 5 12:56:31 Problem Notes None recorded. Procedures Surgical History Date Name Laterality Status Provider Name and Address Organization Details Recorded Time 5 Hip Kenalog 1cc Injection, L/R completed Seth Gomez MD [address] [place] [address], [place], [address], [facility] 06/06/2024 12:56:55 Imaging Results [...] Updated DateTime 06/06/2024 182.88 cm 29.3 kg/m2 40702.95 g FAREED SOLANO [facility] 06/06/2024 10:56:55 Date Recorded Body height Body mass index (BMI) Body weight Provider Name and Address Organization Details Last Updated DateTime 11/07/2023 182.88 cm 28.6 kg/m2 28101.91 g Lacey Childs [facility] 11/07/2023 12:48:42 Date Recorded Body height Body mass index (BMI) Body weight Provider Name and Address Organization Details Last Updated DateTime 11/14/2023 182.88 cm 29.3 kg/m2 22692.95 g CHEMO AVILA [facility] 11/14/2023 08:23:45 Date Recorded Body height Provider Name an d Address Organization Details Last Updated DateTime 12/08/2023 182.88 cm ANAND ABAD [facility] 12/08/2023 14:40:23 Date Recorded Body height Provider Name an d Address Organization Details Last Updated DateTime 01/15/2024 182.88 cm KINGSTON HERNANDEZ [facility] 01/15/2024 12:38:17 Social History Question Answer Notes LastModified by Organizat ion Details LastModified Time Tobacco Smoking Status Current Every Day Smoker Lacey osborne [place] - [facility] 11/07/2023 13:02:35 How Much Tobacco Do You Smoke? 1 PPD 4-5 Cigars A Day [email or web address] Information not available 11/07/2023 Sex: Unknown Functional Status Question Answer Note LastModified by Organizat ion Details LastModified Time Do you use any illicit or recreational drugs? No [email or web address] Information not available 11/07/2023 Do you or have you ever used any other forms of tobacco or nicotine? No [email or web address] Information not available 11/07/2023 Mental Status None recorded. Family History Nothing Reported. Medical History Condition Response Heart Trouble Y Heart Attack (IA) Y Past Encounters Encounter ID Performer Location Encounter Start Date Encounter Closed Date Diagnosis/Indication Diagnosis SNOMED-CT Code Diagnosis ICD10 Code Diagnosis IMO Codes Diagnosis Note [id number] MD Maria Esther Luu [address] [place] [address] 11/07/2023 12:35:32 11/07/2023 15:42:22 Pain of bilateral hip joints 3373662958 1926775 M25.551 M25.552 Osteoarthr itis of right hip joint 9126289413 51739 M16.11 Osteoarthr itis of left hip joint 2211189051 [address] M16.12 [id number] JOHAN Enciso [address] [place] [address] 11/14/2023 08:10:36 11/29/2023 15:31:50 Osteoarthritis of right hip joint 2991215025 33718 M16.11 [id number] ALEXANDREA Goss [address] [place] [address] 12/08/2023 14:21:23 01/02/2024 09:12:06 History of total replacement of right hip joint 5714390804 34701 Z96.052 [id number] ALEXANDREA Mariano [address] floor [address] [place] [address] 01/15/2024 12:12:04 02/02/2024 14:40:40 History of total replacement of right hip joint 1751137005 51028 Z96.018 [id number] MD ANTONELLA Luu [place] [address] [place] [address] 06/06/2024 10:18:40 06/25/2024 10:11:48 History of repair of hip joint 970828411 Z98.890 [id number] Health Concerns Section Related Observation LastModified by Organization Detai ls LastModified Time None Recorded Concern Status LastModified by Organization Details LastModified Time None Recorded Advance Directives Directive None Recorded Payers Insurance Date Sequence Insurance Name Policy Number Policy Lundberg Covered Member ID Lundberg Member ID Guarantor Name 12/07/2023 1 [facility] - DOS ON OR AFTER 2022 - [employer] (MEDICARE REPLACEMENT/AD VANTAGE - HMO) Edward Rosa [id number] Edward Rosa 11/29/2023 1 [place] [employer] Edward Rosa [id number] Edward Rosa 11/29/2023 1 [place] [facility] Edward Rosa [id number] Edward Rosa 01/04/2024 1 [facility] - DOS ON OR AFTER 2022 - [employer] (MEDICARE REPLACEMENT/AD VANTAGE - HMO) Edward Rosa [id number] Edward Rosa 06/25/2024 1 [facility] - DOS ON OR AFTER 2022 - [employer] (MEDICARE REPLACEMENT/AD VANTAGE - HMO) Edward Rosa [id number] Edward Rosa Notes Date Note Type Note [...] anti-inflammatory pain medications, Tylenol, physical therapy, and injections.Edward is an extremely friendly and pleasant 68 [...] the patient s chart. Seth Gomez MD [address] [place] [address] Suite [facility], [place], [address], [facility] - [facility] 11/07/2023 14:05:25 12/08/2023 text/html [...] X-rays ordered, obtained, and reviews today at [facility], two views, reveal maintained alignment [...] is any complications. Jose A Ballard PA-C [address] [place] [address] [address], [place], [address], [facility] - [facility] 12/08/2023 15:31:31 01/15/2024 text/html [...] X-rays ordered, obtained, and reviews today at [facility], two views, reveal maintained alignment [...] is any complications. Wilber Piper PA-C [address], [place], [address], [facility] 01/15/2024 12:51:58 06/06/2024 text/html [...] patient s chart. Seth Gomez MD [address], [place], [address], [facility] 06/06/2024 12:57:08
--- OUTSIDE RECORDS SUMMARY | 2025-02-04 20:27 | XMS_ITS | Encounter Summary ---
Author Organization [facility] Address [address] [place] [address] Phone Care Team Providers Care Security Sme Name Role Phone Balaji Mayo MD Primary Care Provider + Balaji Mayo MD Unavailable [phone] Encounter Details Date Type Department Care Team (Late st Contact Info) Description 11/28/2023 Procedure Pass [facility], Ct Scan - [address] [address] Social History Tobacco Use Types Packs/Day Years [...] 11:41 PM EDT Eveline Toro RN * [place] Suicide Severity Rating Scale (Screener/Recent Self-Report) Question [...] on filedocumented in this encounter Care Teams Security Sme Relationship Specialty Start Date End Date Balaji Mayo MD [address] [place] [address] PCP - General Family Medicine 10/23/23 Balaji Mayo MD [address] [place] [address] Family Medicine 10/23/23 documented as of this encounter Additional Source Comments The information contained in this document represents components of the legal health record. It is not the complete legal health record.[facility]
--- OUTSIDE RECORDS SUMMARY | 2025-02-04 20:27 | XMS_ITS | Encounter Summary ---
Author Organization [facility] Address [address] [place] [address] Phone Care Team Providers Care Filler Mixer Name Role Phone Balaji Mayo MD Primary Care Provider + Balaji Mayo MD Unavailable [phone] Encounter Details Date Type Department Care Team (Late st Contact Info) Description 11/28/2023 Procedure Pass [facility], Ct Scan - [address] [address] Social History Tobacco Use Types Packs/Day Years [...] 11:41 PM EDT Eveline Toro RN * [place] Suicide Severity Rating Scale (Screener/Recent Self-Report) Question Answer Date of Assessment Author 1. Wish to be (Past 1 Month) No 024 11:41 PM PHILIPT vEeline Aguiar RN 2. Non-Specific Active Suici kedar Thoughts (Past 1 Month) No 11/28/2023 11:41 PM EDT Tony Aguiar RN 6. Suicidal Behavior (Lifetime) No 4 1:24 AM EDT Rayne Hernandez RN documented as of this encounter Plan of Treatment Not on file documented as of this encounter Visit Diagnoses Not on filedocumented in this encounter Care Teams Filler Mixer Relationship Specialty Start Date End Date Balaji Mayo MD [address] [place] [address] PCP - General Family Medicine 10/23/23 Balaji Mayo MD [address] [place] [address] Family Medicine 10/23/23 documented as of this encounter Additional Source Comments The information contained in this document represents components of the legal health record. It is not the complete legal health record.[facility]
--- OUTSIDE RECORDS SUMMARY | 2025-02-04 20:27 | XMS_ITS | Data Portability ---
Author Organization [facility] Recroup [facility], Main Office Address [address] [place] [address] Care Team Providers Care [facility] Counselor Name Role Phone JENS COTTRELL Primary Care [...] Organization Details Recorded Time Coronary arterioscle rosis 18764020 Active 2022 [facility] [address] [facility], [address], [place], [address], [facility] 3 10:28:37 Abdominal aortic aneurysm 845843115 Active 2022 [facility] [address], [address], [place], [address], [facility] 3 10:27:45 Chronic kidney disease stage 3B 785528410 Active 2022 DULCE LORD [address] , [address], [place], [address], [facility] 3 10:27:57 Renal artery stenosis 464736374 Active 2022 DULCE LORD [address] , [address], [place], [address], [facility] 3 10:28:01 Hypercholes terolemia 34183875 Active 2022 DULCE LORD [address] , [address], [place], [address], [facility] 3 10:28:12 Carotid artery occlusion 615164710 Active 2022 DULCE LORD [address] [place] [address], [address], [place], [address], [facility] 3 10:28:22 Orthopnea 94798528 Active 2022 DULCE LORD [address] , [address], [place], [address], [facility] 3 10:28:54 Schizoaffec tive disorder 37879147 Active 2022 DULCE LORD [address] , [address], [place], [address], [facility] 3 10:28:56 Cerebrovasc ular accident 128801626 Active 2022 DULCE LORD [address] , [address], [place], [address], [facility] 3 10:29:24 Recurrent falls 074432837 Active 2022 DULCE LORD [address] , [address], [place], [address], [facility] 3 11:09:26 Asthenia 63701820 Active 2023 Lucinda Carlisle, OLENA [address] , [address], [place], [address], [facility] 4 14:04:48 Fracture of multiple ribs 3199932 Active 2023 Lucinda Carlisle NP [address], [address], [place], [address], [facility] 4 14:05:35 Pain of left hip joint 7566012324285 00 Active 2023 Lucinda Carlisle NP [address], [address], [place], [address], [facility] 4 14:05:54 Closed fracture of multiple right ribs 8938549093304 9102 Active 2023 Jennifer Alonso MD [address] [facility], [address], [place], [address], [facility] 4 14:08:01 Essential hypertensio n 61067100 Active 2023 Jennifer Alonso MD [address] [facility], [address], [place], [address], [facility] 4 14:11:56 Peripheral vascular disease 978683086 Active 2023 Jennifer Alonso MD [address] , [address], [place], [address], [facility] 4 14:15:17 Problem Notes None recorded. Medical Equipment None Reported. Allergies Allergen ID Allergen Name Allergen Category Reaction Reaction Severity Criticality Documentation Date Start Date Code Code System Note Provider Name and Address Organization Details Recorded Time 94590 Abilify medicatio n other Not available unabletoasse ss 07/10/2023 42891 3 RxNorm Lucinda Carlisle NP [address], [address], [place], [address], [facility] 4 12:27:02 61096 Benadryl medicatio n other Not available unabletoasse ss 07/10/2023 37308 7 RxNorm Lucinda Carlisle NP [address], [address], [place], [address], [facility] 4 12:27:17 58140 Claritin medicatio n other Not available unabletoasse ss 07/10/2023 41654 6 RxNorm Lucinda Carlisle NP [address] [facility], [address], [place], [address], [facility] 4 12:27:30 19823 Clozaril medicatio n other Not available unabletoasse ss 07/10/2023 61754 2 RxNorm Lucinda Carlisle NP [address] [facility], [address], [place], [address], [facility] 4 12:27:43 96451 Vistaril medicatio n other Not available unabletoasse ss 07/10/2023 38895 9 RxNorm Lucinda Carlisle NP [address] [facility], [address], [place], [address], [facility] 4 12:29:15 47711 hydroxyzi ne Not available other Not available unabletoasse 07/10/2023 5553 RxNorm Lucinda Carlisle NP [address] [facility] [address] [facility], [address], [place], [address], [facility] 4 12:54:35 Vitals Date Recorded Heart rate Respiratory rate Body temperature Oxygen saturation Oxygen saturation in Arterial blood by Pulse oximetry Systolic And Diastolic Provider Name and Address Organization Details Last Updated DateTime 4 50 /min 18 /min 97.6 [degF] 98 % 98 % 132/74 mm[Hg] Lucinda Carlisle NP [address] [facility], [address], [place], [address], [facility] 4 12:14:52 Date Recorded Body weight Body mass index (BMI) Body height Heart rate Respiratory rate Body temperature Oxygen saturation Oxygen saturation in Arterial blood by Pulse oximetry Systolic And Diastolic Provider Name and Address Organization Details Last Updated DateTime 4 24727.0 1 g 29.9 kg/m2 177.8 cm 75 /min 18 /min 98.6 [degF] 98 % 98 % 136/70 mm[Hg] Jennifer Alonso MD [address] [facility], [address], [place], [address], [facility] 4 14:10:16 Date Recorded Body height Body weight Body mass index (BMI) Heart rate Respiratory rate Body temperature Oxygen saturation Oxygen saturation in Arterial blood by Pulse oximetry Systolic And Diastolic Provider Name and Address Organization Details Last Updated DateTime 4 177.8 cm 38743.0 3 g 29.6 kg/m2 80 /min 18 /min 98.4 [degF] 99 % 99 % 128/72 mm[Hg] Lucinda Carlisle NP [address] [facility], [facility] [address], [place], [address], [facility] 4 11:11:12 Date Recorded Body temperature Systolic And Diastolic Provider Name and Address Organization Details Last Updated DateTime 02/14/2023 97.6 [degF] 127/79 mm[Hg] DULCE [address], [address], [place], [address], [facility] 02/14/2023 09:12:19 Date Recorded Body temperature Heart rate Respiratory rate Oxygen saturation Oxygen saturation in Arterial blood by Pulse oximetry Systolic And Diastolic Provider Name and Address Organization Details Last Updated DateTime 3 97.8 [degF] 80 /min 16 /min 96 % 96 % 130/80 mm[Hg] DULCE [address], [address], [place], [address], [facility] 3 12:34:29 Social History Question Answer Notes LastModified by Organizat ion Details LastModified Time Tobacco Smoking Status Current Every Day Smoker Lucinda Carlisle NP [address] [facility] [address], [place], [address], [facility] 07/10/2023 12:35:31 Do You Have An Advance Directive? Yes Information not available 07/17/2023 What Is Your Code Status? DNI 07/02/23 Signed Cpr, Dni, Transfer To [facility], Use Dialysis, Undecided Art Nut, Use IVF Information not available 07/17/2023 Where Do You Live? Apartment Elderly Housing Information not available 07/17/2023 Legal Guardian? No Informati on not available 07/17/2023 Do You Have A Medical Power Of Transaction Coordinator? Yes Information not available 07/17/2023 What Was [...] Functional Status Question Answer Note LastModified by Plum ion Details LastModified Time How many times [...] Details Recorded Time Pneumococcal conjugate PCV20, polysaccharide IRD369 conjugate, adjuvant, PF 2 completed Esme osborne, [facility] 07/10/2023 12:19:59 pneumococcal polysaccharide PPV23 3 completed Esme osborne [facility] 07/10/2023 12:20:26 pneumococcal [facility] PPV23 8 [facility] 12:20:33 Influenza, adjuvanted, quadrivalent, PF 3 [facility] 12:20:53 Influenza, adjuvanted, quadrivalent, PF 3 completed Esme osborne [facility] 07/10/2023 12:21:00 COVID-19, mRNA, LNP-S, bivalent, PF, 30 mcg/0.3 mL dose 1 [facility] 12:21:15 COVID-19, mRNA, LNP-S, bivalent, PF, 30 mcg/0.3 mL dose 1 [facility] 12:21:21 COVID-19, mRNA, LNP-S, bivalent, PF, 30 mcg/0.3 mL dose 1 [facility]23 12:21:27 Past Encounters Encounter ID Performer Location Encounter Start Date Encounter Closed Date Diagnosis/Indication Diagnosis SNOMED-CT Code Diagnosis ICD10 Code Diagnosis IMO Codes Diagnosis Note [id number] Gee Palmer MD [facility] at [facility] [address] [place] [address] 02/02/2023 14:00:19 02/07/2023 12:05:22 Coronary arteriosclerosis 83570144 I25.10 most recently received a drug-eluti ng [...] , age undetermin ed; Abdominal aortic aneurysm 060878235 I71.40 growing; needs f/u w vascular specialist s;AAA (11/10/22) A 5.0 cm infrarenal aortic aneurysm with extensive peripheral thrombosis is noted. This is slightly increased in size from the prior study which time it measured approximat sylvia 4.8 cm Renal artery stenosis 30 3350979 I70.1 chronic; hx stent; needs f/u w cardiovas ular specialist s;NADIRA; left renal stent ; ct (08/24/20) Celiac artery: Patent. Mild-moder ate proximal stenosis. Superior mesenteric artery: Patent. Mild-moder ate proximal stenosis. 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 Right renal artery: Patent. Moderate-s evere proximal stenosis. Left renal artery: Proximal renal artery stent, patent Carotid ar tara occlusion 987091270 I65.29 chronic; needs f/u w cardiovas ular [...] segments of the left vertebral artery. Orthopnea 38939216 R06.0 1 chronic; mother & father had same problem; always sleeps sitting up;has not had sleep test; recommend outpatient sleep study; Anticoagulant therapy 18 8319071 Z79.01 asa+ plavix; () Continue aspirin 81 mg p.o. indefinite ly and clopidogre l 75 mg p.o. at least 1 year post interventi on. Chronic ki dney disease stage 3B 967890899 N18.32 family history of renal dz; consider nephrology consult;ck d3; (02/03/23) cr 1.9; (01/31/23) cr 1.9 egfr 38; psa (03/04/20) 0.3; (baseline 1.4). Schizoaffe ctive disorder 78141013 F25.9 well compensate d on multiple meds;has therapist outpt whom he has seen for 20ish years;decl atilio acute therapy;wi ll ask manager social work to drop by to review community resources; Cerebrovas cular disease 84395088 I67.9 extensive; History of cerebrovascular accident 998889086 Z86.73 aspirin; statin; plavix;mul ti embolic event;brai n mri (08/29/20) Multiple bilateral supratento rial and infratento rial acute/suba cute infarcts, right more than left, most consistent with an embolic event. Given the bilaterali ty and multiplici ty, a central source is most likely. Medication monitoring 39 6383550 Z51.81 meds / - Continue aspirin 81 [...] Bupropion SR 150 mg bid; Hypercholesterolemia 136 72816 E78.00 on lipitor 80mg/d;he should be on additional medication ;recommend outpatient lipid specialist consultati on;brandon rashid PCSK9 inhibitors [id number] DULCE Mccartney [facility] on [address] [place] [address] 02/06/2023 10:26:24 02/08/2023 13:58:00 Coronary arteriosclerosis 07939316 I25.10 most recently received a drug-eludi ng stent to the mid circumflex ; hx previous stents;con tinue lipitor 80mg/dCont inue aspirin 81 mg p.o. indefinite ly and clopidogre l 75 mg p.o. at least 1 year post interventi on.recent d/c norvasc & beta lashell- bps elevated today 162/96add back norvasc 2.5 mg daily and monitor bps closely Chronic ki dney disease stage 3B 733956293 N18.32 family history of renal dz; consider nephrology consult;ck d3; (02/03/23) cr 1.9; (01/31/23) cr 1.9 (baseline 1.4)monito r labs weeklyavoi d nephrotoxi c meds Essential hypertension 40552426 I10 bps elevated since admissiona dd back norvasc 2.5 mg dailymonit or BPs closely [id number] DULCE Nguyentresa at [facility] on [address] [place] [address] 02/07/2023 09:07:20 02/09/2023 09:44:39 Coronary arteriosclerosis 96773717 I25.10 most recently received a drug-eludi ng [...] daily Chronic ki dney disease stage 3B 317752937 N18.32 family history of renal dz; consider nephrology consult;ck d3; (02/03/23) cr 1.9; (01/31/23) cr 1.9 (baseline 1.4)monito r labs weeklyavoi d nephrotoxi c meds Essential hypertension 45858106 I10 continue norvasc 2.5 mg dailyconsi arline increase to 5 mgmonitor BPs closely Recurrent falls 12698555 2 R29.6 long hx of falls, left knee arthritis and bursitisfo llow up with ortho as scheduledP T to continue [id number] DULCE Mccartney at [facility] on [address] [place] [address] 02/14/2023 09:09:04 02/21/2023 08:22:34 Coronary arteriosclerosis 47698154 I25.10 recent d/c norvasc & beta lashell- bps stable todayconti nue norvasc 2.5 mg dailymonit or Essential hypertension 53001322 I10 continue norvasc 2.5 mg dailymonit or BPs closely monitored Recurrent falls 14397909 2 R29.6 long hx of falls, left knee arthritis and bursitisfo llow up with ortho as scheduledP T to continue [id number] DULCE Mccartney at [facility] on [address] [place] [address] 02/16/2023 12:33:14 02/21/2023 11:03:53 Essential hypertension 16474118 I10 recent d/c norvasc & beta lashell- bps stable today 130/80cont inue norvasc 2.5 mg daily Recurrent falls 26741109 2 R29.6 long hx of falls, left knee arthritis and bursitisfo llow up with ortho as scheduledP T to continue with [facility] outpt Chronic ki dney disease stage 3B 569491930 N18.32 family history of renal dz; consider nephrology consult;ck d3; (02/03/23) cr 1.9; (01/31/23) cr 1.9 (baseline 1.4)avoid nephrotoxi c meds Coronary arteriosclerosis 32102989 I25.10 most recently received a drug-eluti ng stent to the mid circumflex ; hx previous stents;nee ds f/u cardiology ;needs f/u cardiac rehab;need s f/u lipid specialist ;lipitor 80mg/d;Con tinue aspirin 81 mg p.o. indefinite ly and clopidogre l 75 mg p.o. at least 1 year post interventi on. Abdominal aortic aneurysm 031700567 I71.40 growing; needs f/u w vascular specialist s;AAA (11/10/22) A 5.0 cm infrarenal aortic aneurysm with extensive peripheral thrombosis is noted. This is slightly increased in size from the prior study which time it measured approximat sylvia 4.8 cm Carotid ar tara occlusion 689486673 I65.29 chronic; needs f/u w cardiovasc ular specialist s; Hypercholesterolemia 136 78565 E78.00 on lipitor 80mg/d; Schizoaffe ctive disorder 69543610 F25.9 well compensate d on multiple meds;has therapist outpt whom he has seen for 20ish years;decl atilio acute therapy; Cerebrovas cular disease 27774481 I67.9 extensive; History of cerebrovascular accident 074132633 Z86.73 aspirin; statin; plavix;mul ti embolic event;brai n mri (08/29/20) Multiple bilateral supratento rial and infratento rial acute/suba cute infarcts, right more than left, most consistent with an embolic event. Given the bilaterali ty and multiplici ty, a central source is most likely. [id number] Lucinda Carlisle NP [address] [address] 07/10/2023 12:12:47 07/13/2023 09:31:44 Coronary arteriosclerosis 85555550 I25.10 bp 140/76,con tinuenorva sc 5 mg daily( was on 2.5 mg daily per pcp)aspiri n 81 mg po ec dailyplavi x 75 mg p po dailymetop rolol tartate 25 mg po daily(not on in pcp summary but on here) monitor for neednitro 0.4 mg po q 5 min prn cp x 3 doses, notify providermo nitor Essential hypertension 34100857 I10 continueno rvasc 5 mg daily( was on 2.5 mg daily per pcp)metopr olol tartate 25 mg po daily(not on in pcp summary but on here)monit or BPs and hr Recurrent falls 31798228 2 R29.6 long hx of falls, with left hip/knee arthritis and bursitisfo llow up with pcp outpt prnCT and xrays negative in er 07/07PT/OT eval and treatlabs monitored q monday bmp/cbc x 2 weeksmonit or Chronic ki dney disease stage 3B 123086282 N18.32 family history of renal dz; consider nephrology consult;ck d3; cr 1.7 (baseline 1.9)monito r labs weeklyavoi d nephrotoxi c meds Schizoaffe ctive disorder 78872944 F25.9 quetiapine er 400 mg po dailyfluox etine 40 mg po dailytrazo done 50 mg po bid (was on 200mg po bid per pcp summary but unsure)blair otrigine 200 mg po bid (unclear why)monito r Cerebrovas cular accident 056852493 I63.9 hx ofatorvast atin 80 mg po daily Abdominal aortic aneurysm 991118565 I71.[address] per CT in hosp:Aneur ysmal dilatation of the infrarenal abdominal aorta which is known and similar to the CT angiogram exam of May 26, 2023. This is increased in size from more remote exam of August 2021. Moderate atheroscle rosis of the descending thoracic aorta.moe tor Carotid ar tara occlusion 499136157 I65.29 hx of carrying dx Asthenia 76361013 R53.1 PT OT treat and evalsafety precaution scall guadarrama in reach Closed fra cture of multiple right ribs 3856795962 8756809 S22.41XD likely older fx ribs, age undetermin ed and pt states fx ribs in pasttyleno l 650 mg po q 8 hours schedmonit or Pain of le ft hip joint 7988303852 25120 M25.552 left hip joint pain likely rt bursitisxr ay and ct ruled out fx with hx of fallslidod erm 4 % topically to left hipmonitor [id number] Jennifer Alonso MD [address] [address] 07/17/2023 13:04:17 07/20/2023 15:52:32 Pain of left hip joint 2569218936 66554 M25.552 He tells me left hip pain is chronic his whole life. He had a dislocated hip at and attributes it to this. He says he just lives with it, doesn't like to take meds.Kaiden nue lidocaine patch 5% topically prn and APAP 650 mg q 4 hrs prn.Monito r sxs. Closed fra cture of multiple right ribs 8687031544 4735879 S22.41XD Consistent with past falls.Pain control as above.PT/O T as needed while here and as outpt. Asthenia 77934860 R53.1 As above. Recurrent falls 38136118 2 R29.6 With chronic problems with balance and strength.H as made improvemen t with rehab.Will continue with home services at d/c.CCA will start home PT/OTAnamita s to stay until home services are set up, maybe today, maybe tomorrow. SW will let him know. Coronary arteriosclerosis 18918675 I25.10 No recent sxs.Contin ue meds as above and ASA 81 mg qd, atorvastat in 80 mg qd and NTG 0.4 mg q 5 min prn CP x 3Monitor for sxs. Essential hypertension 36083810 I10 In good control since here.Kaiden nue amlodipine 5 mg qd and metoprolol 25 mg qdMonitor BP and labs Chronic ki dney disease stage 3B 357419032 N18.32 At baseline.C ontinue to avoid nephrotoxi c meds as able.Monit or labs.Renal consult prn. Schizoaffe ctive disorder 03840178 F25.8 Mood generally stable, with some lability.C ontinue quetiapine ER 400 mg qd, fluoxetine 40 mg po qd, trazodone 50 mg BID, and lamotrigin e 200 mg BID.Monito r mood.F/U as outpt. Cerebrovas cular accident 178918211 I63.89 Hx of several.Co ntinue meds as above.Moe tor as outpt. Abdominal aortic aneurysm 071844509 I71.43 Now ~ 5.[address]Per last vascular note (06/01/23), criteria for repair is 5.[address] in 11/2023 and vascular f/u after Carotid ar tara occlusion 628685242 I65.23 Hx of.Continu e meds as above.Moe tor for sxs. Peripheral vascular disease 146317055 I73.89 Encouraged smoking cessation. Continue meds as above and Plavix 75 mg qd.Monitor sxs. [id number] [facility] [address] [facility] [place] [address] 07/18/2023 11:09:29 07/20/2023 16:01:23 Recurrent falls 664553747 R29.6 With chronic problems with balance and strength.H as made improvemen t with rehab.Will continue with home services at d/c today. Nursing services in place.CCA will start home PT/OT prnmonitor outpt with vna services and pcp outpt Pain of le ft hip joint 3973161926 72746 M25.552 states pain controlled onContinue lidocaine patch 5% topically prnAPAP 650 mg q 4 hrs prn.Monito r sxs.fu with pcp outpt Closed fra cture of multiple right ribs 8827283889 8707018 S22.41XD Consistent with past falls.Pain control as above.PT/O T as needed as outpt. Asthenia 28402500 R53.1 As above. Essential hypertension 97520238 I10 In good control since here.Kaiden nueamlodip ine 5 mg qdmetoprol ol 25 mg qdMonitor outpt with pcp Coronary arteriosclerosis 59806774 I25.10 No recent sxs.Contin ue meds as aboveASA 81 mg qdatorvast atin 80 mg qdNTG 0.4 mg q 5 min prn CP x 3Monitor for sxs. with vna and pcp outpt Chronic ki dney disease stage 3B 543966214 N18.32 At baseline.C ontinue to avoid nephrotoxi c meds as able.Monit or labs.Renal consult prn outpt Peripheral vascular disease 979340485 I73.89 Encouraged smoking cessation. Continue meds as above and Plavix 75 mg qd.Monitor sxs. outpt with pcp Carotid ar tara occlusion 248208824 I65.23 Hx of.Continu e meds as above. Schizoaffe ctive disorder 78361729 F25.8 Mood generally stable, with some lability.C ontinueque tiapine ER 400 mg qdfluoxeti ne 40 mg po qdtrazodon e 50 mg BIDlamotri gine 200 mg BID.Monito r mood.F/U as outpt and with pcp outpt Cerebrovas cular accident 227357727 I63.89 Hx of several.Co ntinue meds as above.Moe tor as outpt. Abdominal aortic aneurysm 246906295 I71.43 Now ~ 5.2 cm per recent [...] ID Guarantor Name 07/10/2023 2 [place]IC[place] B-[place]: [employer] Edward Rosa [id number] Edward Rosa 07/10/2023 2 [place] [facility] Edward Rosa [id number] Edward Rosa 07/17/2023 1 [facility] - DOS ON OR AFTER 2022 - MEDICARE ADVANTAGE [place] (MEDICARE REPLACEMENT/AD VANTAGE - PPO) Edward Rosa [id number] Edward Rosa Notes Date Note Type Note [...] scheduled with ortho he tells me his elementary secretary has it scheduled. He denies pain, light headedness or dizziness, no LOC prior to falls. His recent labs were normal, VS are mostly stable with some htn. DULCE STONER [address] [facility], [address], [place], [address], [facility] [place] 02/14/2023 13:09:30 02/16/2023 text/html ROS as noted [...] scheduled with ortho he tells me his elementary secretary has it scheduled. He denies pain, light headedness or dizziness, no LOC prior to falls. His recent labs were normal, VS are mostly stable with some htn. He is ok to DC home today with meds and services, no acute concerns at this visit. DULCE STONER [address] [place] [address], [address], [place], [address], [facility] [place] 02/16/2023 12:49:09 07/10/2023 text/html ROS as noted [...] presenting [facility] ER after a fall at [facility] now at [facility] for continued care and rehab due [...] use art hydration Lucinda Carlisle NP [address] [facility], [address], [place], [address], [employer] [place] 07/10/2023 14:42:38 07/17/2023 text/html This is a 68 yo man who is here for rehab after an ED visit for a fall with unknown cause. [place] says he [place]. Not sure why, thinks leg just goes out.He was brought to the [facility] ED on 07/05 after this fall.BP was [...] and schizoaffective disorder. Jennifer Alonso MD [address] [facility], [address], [place], [address], [facility] 07/17/2023 14:32:06 07/18/2023 text/html ROS as [...] 68-year-old male with above pmh presented to [facility] ER after a fall at [facility] who then transferred to [facility] for continued care and rehab due [...] of the descending thoracic aorta. Since at [facility] he has been participating with rehab and [...] he is lining up his nurse and fitness services manager for care later today. OF NOTE: no [...] art nut undecided, use art hydration Lucinda Willshire, OLENA [address] [facility], [address], [place], [address], [facility] 07/18/2023 11:29:46
--- OUTSIDE RECORDS SUMMARY | 2025-02-04 20:27 | XMS_ITS | Encounter Summary ---
Author Organization [facility] Address [address] [place] [id number] Phone Care Team Providers Care Fishing Guide Name Role Phone Balaji Mayo MD Primary Care Provider + Balaji Maoy MD Unavailable [phone] Encounter Details Date Type Department Care Team (Late st Contact Info) Description 11/28/2023 Procedure Pass [facility], Ct Scan - [address] [id number] Social History Tobacco Use Types Packs/Day Years [...] 11:41 PM EDT Eveline Toro RN * [place] Suicide Severity Rating Scale (Screener/Recent Self-Report) Question [...] on filedocumented in this encounter Care Teams Fishing Guide Relationship Specialty Start Date End Date Balaji Mayo MD [address] [place] [id number] PCP - General Family Medicine 10/23/23 Balaji Mayo MD [address] [place] [id number] Family Medicine 10/23/23 documented as of this encounter Additional Source Comments The information contained in this document represents components of the legal health record. It is not the complete legal health record.[facility]
--- NOTE | 2025-02-04 20:49 | ECG_ITS ---
Test Reason : PSYCH MEDS Blood Pressure : */* mmHG Vent. Rate : 79 BPM Atrial Rate : 79 BPM P-R Int : 166 ms QRS Dur : 92 ms QT Int : 428 ms P-R-T Axes : 40 -22 7 degrees QTcB Int : 490 ms Normal sinus rhythm Nonspecific ST abnormality Prolonged QT Abnormal ECG When compared with ECG of 19-Jan-2025 12:35, Vent. rate has increased by 26 bpm Referred By: Jaki Soler Electronically Signed By: Néstor Guardado
--- NOTE | 2025-02-04 20:52 | ED.PSYCH ---
HPI - Psych General Chief Complaint: Psychiatric Symptoms Stated Complaint: SI, Crisis Time Seen by Provider: 02/04/25 18:33 History of Present Illness HPI Narrative: Patient is a 69-year-old male presented from [facility] because of aggressive behavior and vague suicidal ideation. Patient claims that he was mistreated there. He started banging on the wall. He started saying that give me a knife and will sleep my throat. Patient denies any suicidal homicidal ideation once he got to the emergency department. Stated that he only want to kill himself if he was left at [facility]. No fever no chills no coughing or congestion no new medication has a history of bipolar. History of coronary artery disease. A multitude of medications. Related Data Home Medications ?Medication ?Instructions ?Recorded ?Confirmed atorvastatin 80 mg tablet 1 tab PO BEDTIME 01/12/21 02/05/25 bupropion HCl 150 mg tablet,12 hr 1 tab PO BID 01/12/21 02/05/25 sustained-release fluoxetine 40 mg capsule 1 cap PO DAILY 01/12/21 02/05/25 trazodone 100 mg tablet 1 tab PO BEDTIME Insomnia 01/12/21 02/05/25 aspirin 81 mg tablet,delayed 1 tab PO DAILY 11/03/21 02/05/25 release omeprazole 20 mg capsule,delayed 20 mg PO DAILY@0630 12/30/23 02/05/25 release amlodipine 2.5 mg tablet 2.5 mg PO DAILY 04/14/24 02/05/25 clopidogrel 75 mg tablet 75 mg PO DAILY 12/23/24 02/05/25 lamotrigine 100 mg tablet 200 mg PO BID 12/23/24 02/05/25 metoprolol tartrate 25 mg tablet 25 mg PO DAILY 12/23/24 02/05/25 quetiapine 400 mg tablet,extended 400 mg PO BEDTIME 12/23/24 02/05/25 release 24 hr acetaminophen 325 mg tablet 650 mg PO Q6H PRN Fever 02/05/25 02/05/25 bisacodyl 10 mg rectal suppository 10 mg AK DAILY PRN Constipation 02/05/25 02/05/25 magnesium hydroxide 400 mg/5 mL 400 mg PO DAILY PRN Constipation 02/05/25 02/05/25 oral suspension (Milk of Magnesia) nicotine 21 mg/24 hr daily 1 patch transdermal Q24H 02/05/25 02/05/25 transdermal patch sodium phosphates 19 gram-7 118 ml AK DAILY PRN Constipation 02/05/25 02/05/25 gram/118 mL enema (Fleet Enema) trazodone 50 mg tablet 50 mg PO Q12H PRN Anxiety 02/05/25 02/05/25 Previous Rx's ?Medication ?Instructions ?Recorded nitroglycerin 0.4 mg sublingual 0.4 mg sublingual Q5M PRN chest 09/12/22 tablet pain #1 tab blood pressure monitor (Blood #1 ea 01/02/24 Pressure Kit) Allergies Allergy/AdvReac Type Severity Reaction Status Date / Time clozapine (From Clozaril) Allergy Unknown RASH Verified 02/04/25 18:41 hydroxyzine (From VISTARIL) Allergy Unknown UNKNOWN Verified 02/04/25 18:41 menthol (From Antihistamine) Allergy Unknown RASH Verified 02/04/25 18:41 nicotine (Nicotine) Allergy Unknown GUM- MAKES Verified 02/04/25 18:41 SICK TO STOMACH nut - unspecified (nut) Allergy Unknown SWELLING Verified 02/04/25 18:41 From Antihistamine Allergy Unknown RASH Uncoded 02/04/25 18:41 Review of Systems Review of Systems: Positive SI Yes all other systems are reviewed and are negative PMFSH Past Medical History Attestation statement: The following information was validated with the patient. Medical History Stage 3b chronic kidney disease Multiple falls CAD (coronary artery disease) Schizoaffective disorder Peripheral arterial disease History of CVA (cerebrovascular accident) Bilateral carotid artery stenosis Stroke due to stenosis of carotid artery Arthritis Myocardial infarct Hypertension Surgical History H/O heart artery stent No significant past surgical history Family History Family History Father Heart disease Social History Social History Household Members: None Housing: Apartment Do you presently have visiting nurse or other home services: Yes (dish maker services daily) Alcohol intake: former Patient Tobacco Use Status: Current everyday Tobacco user Tobacco use type: Cigar Cigarettes Per Day: 4 Second Hand Smoke Exposure: No Advance Directives: Yes Advance Directives on File: Yes Advance Directives Date on File: 01/18/21 Do you have a plan to hurt others: No Plan service: No Physical Exam Exam: Exam: Appearance: Alert. Oriented X3. No acute distress. Eyes: Pupils equal, round and reactive to light. ENT: Pharynx normal. Neck: Normal inspection. Neck supple. No lymph nodes noted. No crepitus CVS: Normal heart rate and rhythm. Pulses normal. Normal S1 and S2 Respiratory: No respiratory distress. Breath sounds normal. No Wheezing. No rales Abdomen: Soft and nontender. No rigidity. No distention. good BS x4 Skin: Skin warm and dry. Normal skin color. Normal skin turgor. Extremities: No lower extremity edema. Neurovascular intact to all extremities. No Lacerations. No Rash Neuro: Oriented X 3. No motor deficit. No sensory deficit. Moving all extermities. No slurred speech. Cranial nerves grossly intact Vital Signs: Vital Signs: Last Vital Signs Temp 97.7 F 02/07/25 08:20 Pulse 69 02/07/25 08:20 Resp 17 02/07/25 08:20 BP 189/91 H 02/07/25 08:21 Pulse Ox 91 L 02/07/25 08:20 O2 Del Method Room Air 02/07/25 08:20 BMI result Body Mass Index 32.5 Course Reevaluation(s) Reevaluation #1: DR. Lopez's progress note; 02/05/2025; 10 30. VSS, no acute issues reported by nursing overnight, patient was evaluated by care team suggesting psych consult for further evaluation, as contacting patient's brother who reported that the patient is been having memory, physical, and cognitive declining lately patient was frequent falling and the brother is concerned to send the patient back home. Will consider PT and case management evaluation after psych consultation. Time: 10:02 Date: 02/06/25 Provider: Sarah Acuña PA-C Patient in physician observation for case management needs. No acute events reported overnight.? is baseline. He has vague SI if sent back to [facility]. No current issues. VS stable. Patient is pending repeat psych eval and PT eval/ CM and care team will continue to monitor. 1415: Patient will be discharged back to [facility] tomorrow via BLS at 10:00 am Reevaluation #2: Continue with physician observation, patient is a DNR/DNI, case management consultation and physical therapy consultation. Reevaluation #3: Time: 20:39 Date: 02/05/25 Provider: Unruly Amanda MD Patient in physician observation for case management and psychiatric evaluation. The patient had a psychiatric consult today done by nurse practitioner Mariajose Mccann. I did review his consult . The patient was not suicidal, homicidal, having auditory or visual hallucinations at the time of the consult. The patient did not meet inpatient criteria at that time. The patient was reported to have frequent falls therefore the psychiatric consult recommended that case management get involved. Patient was seen this evening by our insurance case manager (please see her note) and I obtained the following information from her. The patient has been living at [facility] for about 6 months. He has a history of schizoaffective disorder and depression. It is unclear if his healthcare proxy has been invoked. The patient was sent in initially for aggressive behavior and suicidal statements that he made at the group home facility. The patient told ours insurance case manager that if he went back to the nursing facility he would hang himself. He felt hopeless and he felt like his family he had given up on him. He wished that he could just stab himself through the heart with a his cane. Given the statements that he made tonight, I think that the patient should be re-evaluated by psychiatry to determine if he can be safely discharged back to his nursing facility or if he needs [facility] psychiatric admission. If the patient is cleared by our psychiatry team again, he can be sent back to his nursing facility and get physical therapy there. Additional Reevaluation(s): 02/07 [facility] observation ended. Uneventful night. Vital signs stable. No complaints from nursing overnight. Med reconciliation reviewed and done. Pending disposition. Will continue to monitor. Patient will go to [facility] rehab at 10:00. Medications Administered Generic Name Dose Route Start Last Admin Trade Name Freq PRN Reason Stop Dose Admin Amlodipine Besylate 2.5 mg 02/05/25 13:45 02/07/25 08:21 Amlodipine Besylate 2.5 Mg Tablet PO 2.5 mg DAILY ZARINA Administration Protocol Aspirin 81 mg 02/05/25 13:45 02/07/25 08:23 Aspirin Enteric Coated 81 Mg Tablet. PO Not Given DAILY [facility] Atorvastatin Calcium 80 mg 02/05/25 21:00 02/06/25 19:46 Atorvastatin Calcium 80 Mg Tablet PO 80 mg BEDTIME [facility] Administration Bupropion HCl 300 mg 02/05/25 14:15 02/07/25 08:24 Bupropion Hcl Xl 300 Mg Tab.Er.24h PO Not Given DAILY [facility] Clopidogrel Bisulfate 75 mg 02/05/25 13:45 02/07/25 08:23 Clopidogrel Bisulfate 75 Mg Tablet PO Not Given DAILY [facility] Fluoxetine HCl 40 mg 02/05/25 13:45 02/07/25 08:23 Fluoxetine Hcl 20 Mg Capsule PO Not Given DAILY [facility] Lamotrigine 200 mg 02/05/25 13:45 02/07/25 08:23 Lamotrigine 100 Mg Tablet PO Not Given BID [facility] Metoprolol Tartrate 25 mg 02/05/25 13:45 02/07/25 08:20 Metoprolol Tartrate 25 Mg Tablet PO 25 mg DAILY [facility] Administration Protocol Nicotine 21 mg 02/05/25 13:45 02/06/25 09:37 Nicotine 21 Mg Patch.Td24 TRANSDERMA Not Given Q24H [facility] Omeprazole 20 mg 02/05/25 13:45 02/07/25 05:24 Omeprazole 20 Mg Capsule. PO 20 mg DAILY@0630 [facility] Administration Quetiapine Fumarate 200 mg 02/05/25 21:00 02/07/25 08:24 Quetiapine Fumarate 200 Mg Tablet PO Not Given BID [facility] Trazodone HCl 100 mg 02/05/25 21:00 02/06/25 19:48 Trazodone Hcl 100 Mg Tablet PO Not Given BEDTIME [facility] Medical Decision Making Medical Decision Making MDM Narrative: Patient to be seen by crisis team. Currently in no distress. No chest pain or shortness breath no focal weakness. Lab Data 02/04/25 21:18 02/04/25 21:18 Labs: Lab Results 02/04/25 02/04/25 02/05/25 Range/Units 21:18 21:29 15:45 WBC 11.4 H (4.8-10.8) X10*3/uL RBC 4.10 L (4.60-5.80) X10*6/uL Hgb 11.7 L (14.0-18.0) g/dl Hct 36.1 L (42.0-52.0) % MCV 88.0 (80.0-98.0) fL MCH 28.5 (27.0-33.0) pg MCHC 32.4 (31.0-36.0) g/dl RDW 15.6 (11.0-16.0) % Plt Count 265 (160-400) X10*3/uL MPV 10.1 (9.4-12.4) fL Immature Gran % (Auto) 0.5 H (0.0-0.4) % Neut % (Auto) 63.3 (45-73) % Lymph % (Auto) 21.8 (20-40) % [place] % (Auto) 7.7 (2-11) % Eos % (Auto) 5.8 H (0-4) % Baso % (Auto) 0.9 (0-2) % Lymph # (Auto) 2.5 (1.2-4.9) X10*3/uL [place] # (Auto) 0.9 (0.1-1.2) X10*3/uL Eos # (Auto) 0.7 H (0.0-0.4) X10*3/uL Baso # (Auto) 0.1 (0.0-0.2) X10*3/uL Abs Immat Gran (auto) 0.06 H (0.00-0.03) X10*3/uL Absolute Neuts (auto) 7.2 (2.0-8.3) x10*3/uL Absolute Nucleated RBC 0.000 (0.0-0.012) X10*3/uL Nucleated RBC % (auto) 0.0 (0.0-0.2) /100WBC Sodium 141 (135-145) mmol/L Potassium 4.0 (3.3-5.1) mmol/L Chloride 108 (96-108) mmol/L Carbon Dioxide 25 (22-29) mmol/L Anion Gap 12 (12-20) BUN 23 H (9-16) mg/dL Creatinine 2.00 H (0.5-1.4) mg/dL Estim Creat Clear Calc 45.0 Estimated GFR 33 Random Glucose 102 (60-115) mg/dL Calcium 9.0 D (8.4-10.2) mg/dL Total Bilirubin 0.3 (0.0-1.0) mg/dL AST 27 (5-37) U/L ALT 19 (0-40) U/L Alkaline Phosphatase 182 H (39-117) U/L Total Protein 7.1 (6.5-8.0) g/dL Albumin 3.5 (3.5-5.0) g/dL Hold Yellow Top See Note Urine Opiates Screen Not Detected (Not Detect) Ur Buprenorphine Scrn Not Detected (Not Detect) ng/mL Ur Oxycodone Screen Not Detected (Not Detect) ng/mL Urine Methadone Screen Not Detected (Not Detect) ng/mL Urine Fentanyl Screen Not Detected (Not Detect) Ur Barbiturates Screen Not Detected (Not Detect) Ur Phencyclidine Scrn Not Detected (Not Detect) Ur Amphetamines Screen Not Detected (Not Detect) U Benzodiazepines Scrn Not Detected (Not Detect) Urine Cocaine Screen Not Detected (Not Detect) U Marijuana (THC) Screen Not Detected (Not Detect) Ethyl Alcohol 11 mg/dL Influenza Type A (PCR) NEGATIVE (Negative) Influenza Type B (PCR) NEGATIVE (Negative) RSV RNA Qual (PCR) NEGATIVE (Negative) SARS-CoV-2 RNA (RT-PCR) NEGATIVE (Negative) Discharge Plan Discharge Clinical Impression: Depression, Acute anxiety Patient Disposition: Xfer Other Transfer Details: [facility] Instructions: Depression (ED) Additional Instructions: Take your medications as prescribed. If you were prescribed antibiotics today, it is important that you take your medication to their entirety, do not skip any doses, do not finish them early. Follow-up with your primary care provider this week. Return to the emergency department with new or worsening symptoms. Such as fevers, chills, chest pain, shortness of breath, nausea, vomiting, dizziness, headache, vision changes, lethargy In case of emergency call 911 Prescriptions: No Action fluoxetine 40 mg capsule 1 cap PO DAILY bupropion HCl 150 mg tablet sustained-release 12 hr 1 tab PO BID atorvastatin 80 mg tablet 1 tab PO BEDTIME trazodone 100 mg tablet 1 tab PO BEDTIME aspirin 81 mg tablet,delayed release (DR/EC) 1 tab PO DAILY nitroglycerin 0.4 mg tablet, sublingual 0.4 mg sublingual Q5M PRN (Reason: chest pain) Qty: 1 0RF Rx Instructions: do not exceed 3 doses per episode omeprazole 20 mg capsule,delayed release(DR/EC) 20 mg PO DAILY@0630 (DME) blood pressure monitor [Blood Pressure Kit] Kit See Rx Instructions .Route Qty: 1 0RF Rx Instructions: As directed acetaminophen 325 mg Tablet 650 mg PO Q6H PRN (Reason: Fever) trazodone 50 mg tablet 50 mg PO Q12H PRN (Reason: Anxiety) magnesium hydroxide [Milk of Magnesia] 400 mg/5 mL Suspension 400 mg PO DAILY PRN (Reason: Constipation) Rx Instructions: Use first bisacodyl 10 mg Suppository 10 mg AK DAILY PRN (Reason: Constipation) Rx Instructions: Use second nicotine 21 mg/24 hr Patch 24 Hour 1 patch TRANSDERMAL Q24H Fleet Enema 19-7 gram/118 mL Enema 118 ml AK DAILY PRN (Reason: Constipation) Rx Instructions: Use third amlodipine 2.5 mg tablet 2.5 mg PO DAILY lamotrigine 100 mg tablet 200 mg PO BID quetiapine 400 mg tablet extended release 24 hr 400 mg PO BEDTIME clopidogrel 75 mg tablet 75 mg PO DAILY metoprolol tartrate 25 mg tablet 25 mg PO DAILY Referrals: [facility] [Outside] Interventions: [place]-Suicide Risk Severity Scale Last Done: 02/06/25 18:49 Print Language: [place]
[2025-02-04 21:21] LABS: MANUAL DIFF FLAG NO
[2025-02-04 21:23] LABS: Hematocrit 36.1 % (42.0-52.0); Hemoglobin 11.7 g/dl (14.0-18.0); Imm Gran Abs Auto 0.06 X10*3/uL (0.00-0.03); Imm Gran Pct Auto 0.5 % (0.0-0.4); Lymphocytes Absolute Auto 2.5 X10*3/uL (1.2-4.9); Mean Corpuscular HGB Conc 32.4 g/dl (31.0-36.0); Mean Corpuscular Hemoglobin 28.5 pg (27.0-33.0); Mean Corpuscular Volume 88.0 fL (80.0-98.0); NRBC Abs Auto 0.000 X10*3/uL (0.0-0.012); NRBC Pct Auto 0.0 /100WBC (0.0-0.2); Platelet Count 265 X10*3/uL (160-400); Red Blood Count 4.10 X10*6/uL (4.60-5.80); White Blood Count 11.4 X10*3/uL (4.8-10.8)
[2025-02-04 21:40] LABS: Alanine Aminotransferase 19 U/L (0-40); Albumin Level 3.5 g/dL (3.5-5.0); Alkaline Phosphatase 182 U/L (39-117); Anion Gap 12 (12-20); Aspartate Amino Transferase 27 U/L (5-37); Blood Urea Nitrogen 23 mg/dL (9-16); Calcium 9.0 mg/dL (8.4-10.2); Carbon Dioxide 25 mmol/L (22-29); Chloride 108 mmol/L (96-108); Creatinine Clr Calc Pharmacy 45.0; Estimated Glomerular Filt Rate 33; Potassium 4.0 mmol/L (3.3-5.1); Sodium 141 mmol/L (135-145); Total Protein 7.1 g/dL (6.5-8.0)
[2025-02-04 21:44] LABS: Cannabinoid Screen Urine Not Detected (Not Detect)
[2025-02-05 09:26] VITALS: BP 135/88; PULSE 77; RESP 16; TEMP 36.9; O2SAT 97
--- NOTE | 2025-02-05 09:40 | PHA.MEDREC ---
Pharmacy Consult ? Medication Reconciliation Pharmacy has completed the medication reconciliation. Utilized med list from [facility].
--- NOTE | 2025-02-05 10:37 | MHC.CARE ---
Disposition is pending a psychiatry consult.
--- NOTE | 2025-02-05 13:30 | PM.PSYCN ---
History of Present Illness Date of Service: 02/05/2025 Chief Complaint: SI, Crisis Reason for Consult: Memory decline, multiple falls Requesting physician: Bernard Lopez Discussed with referring provider: Yes Sources of Information: patient interviewed, chart reviewed and crisis/core team assessment reviewed HPI Narrative: Patient is a 69-year-old male presented from [facility] for aggressive behavior and SI with plan to slit his throat in the context of living at [facility]. Patient evaluated for memory decline and multiple falls. Per Care team reports the following: patient has an apartment that he has not visited in the past 4 months; he was interested x3 months and transferred to SNF beginning early December. He has been experiencing poor sleep and appetite since moving to the SNF. Staff at the SNF reports that patient has been sundowning at night and fine during the day, and confused at times. SNF noted the patient had multiple falls, 2-3 times per day. Patient's brother reports physical and mental decline over the past years with issues with short-term memory recall; his brother also notes frequent falls attributed to bilateral leg weakness. On interview with his provider, patient reports history of multiple falls. He notes that he was issued a cane and walker about 15 years ago; however, he he has not had access to his assistive devices for the past 3 months he has lived in a SNF. He notes that he is compliant with his medication and followed by a psychiatrist. He feels like his medications are effective in managing his psychiatric symptoms. He denies anxiety and depression. He denies SI/HI/AH/VH. He is looking forward to be discharged from the ED. Medical Evaluation Reviewed: Yes [facility] Medical History Stage 3b chronic kidney disease Multiple falls CAD (coronary artery disease) Schizoaffective disorder Peripheral arterial disease History of CVA (cerebrovascular accident) Bilateral carotid artery stenosis Stroke due to stenosis of carotid artery Arthritis Myocardial infarct Hypertension Surgical History H/O heart artery stent No significant past surgical history Diagnostics Vital Signs (24Hr): Vital Signs - 24 hr 02/04/25 18:35 02/04/25 19:55 02/05/25 09:26 Temperature 98.4 F 97.9 F 98.4 F Pulse Rate 76 76 77 Respiratory Rate 16 16 Blood Pressure 195/92 H 195/97 H 135/88 Pulse Oximetry 97 96 97 Oxygen Delivery Method Room Air Room Air Room Air BMI result Body Mass Index 32.5 Labs 02/04/25 21:18 02/04/25 21:18 Labs: Laboratory Results - last 48 hr 02/04/25 02/04/25 21:18 21:29 WBC 11.4 H RBC 4.10 L Hgb 11.7 L Hct 36.1 L MCV 88.0 MCH 28.5 MCHC 32.4 RDW 15.6 Plt Count 265 MPV 10.1 Immature Gran % (Auto) 0.5 H Neut % (Auto) 63.3 Lymph % (Auto) 21.8 [place] % (Auto) 7.7 Eos % (Auto) 5.8 H Baso % (Auto) 0.9 Lymph # (Auto) 2.5 [place] # (Auto) 0.9 Eos # (Auto) 0.7 H Baso # (Auto) 0.1 Abs Immat Gran (auto) 0.06 H Absolute Neuts (auto) 7.2 Absolute Nucleated RBC 0.000 Nucleated RBC % (auto) 0.0 Sodium 141 Potassium 4.0 Chloride 108 Carbon Dioxide 25 Anion Gap 12 BUN 23 H Creatinine 2.00 H Estim Creat Clear Calc 45.0 Estimated GFR 33 Random Glucose 102 Calcium 9.0 D Total Bilirubin 0.3 AST 27 ALT 19 Alkaline Phosphatase 182 H Total Protein 7.1 Albumin 3.5 Hold Yellow Top See Note Urine Opiates Screen Not Detected Ur Buprenorphine Scrn Not Detected Ur Oxycodone Screen Not Detected Urine Methadone Screen Not Detected Urine Fentanyl Screen Not Detected Ur Barbiturates Screen Not Detected Ur Phencyclidine Scrn Not Detected Ur Amphetamines Screen Not Detected U Benzodiazepines Scrn Not Detected Urine Cocaine Screen Not Detected U Marijuana (THC) Screen Not Detected Ethyl Alcohol 11 Mental Status Exam Mental Status Exam Narrative: Appearance: Casually dressed, adequate hygiene, unkempt hair Behavior: Irritable. Cooperative throughout the interview. Minimal eye contact, and there are no signs of psychomotor agitation or retardation Speech: Normal volume and prosody Thought process: Logical and goal-directed Thought content: Future oriented no self-harming thoughts Mood: Irritable Affect: Mood-congruent SI:denies HI:denies VH/AH:none Delusions: None Insight/judgment: Fair insight and judgment Memory/cog: Alert and oriented x 4, grossly intact to conversational testing Medications Allergies Allergies Allergy/AdvReac Type Severity Reaction Status Date / Time clozapine (From Clozaril) Allergy Unknown RASH Verified 02/04/25 18:41 hydroxyzine (From VISTARIL) Allergy Unknown UNKNOWN Verified 02/04/25 18:41 menthol (From Antihistamine) Allergy Unknown RASH Verified 02/04/25 18:41 nicotine (Nicotine) Allergy Unknown GUM- MAKES Verified 02/04/25 18:41 SICK TO STOMACH nut - unspecified (nut) Allergy Unknown SWELLING Verified 02/04/25 18:41 From Antihistamine Allergy Unknown RASH Uncoded 02/04/25 18:41 Assessment & Plan Assessment & Plan (1) Memory changes: Status: Acute Code(s): R41.3 - Other amnesia (2) Multiple falls: Status: Acute Code(s): R29.6 - Repeated falls Plan HPI Patient is a 69-year-old male presented from [facility] for aggressive behavior and SI with plan to slit his throat in the context of living at [facility]. Patient evaluated for memory decline and multiple falls. Per Care team reports the following: patient has an apartment that he has not visited in the past 4 months; he was interested x3 months and transferred to SNF beginning early December. He has been experiencing poor sleep and appetite since moving to the SNF. Staff at the SNF reports that patient has been sundowning at night and fine during the day, and confused at times. SNF noted the patient had multiple falls, 2-3 times per day. Patient's brother reports physical and mental decline over the past years with issues with short-term memory recall; his brother also notes frequent falls attributed to bilateral leg weakness. On interview with his provider, patient reports history of multiple falls. He notes that he was issued a cane and walker about 15 years ago; however, he he has not had access to his assistive devices for the past 3 months he has lived in a SNF. He notes that he is compliant with his medication and followed by a psychiatrist. He feels like his medications are effective in managing his psychiatric symptoms. He denies anxiety and depression. He denies SI/HI/AH/VH. He is looking forward to be discharged from the ED. He stood up from his stretcher several times and sat down when redirected. Plan Patient is alert oriented x4, speech is clear and coherent. Irritable but cooperative. Redirectable. Unsure how long he has had short-term memory issues if present. Also, memory may be affected by his psychiatric medical diagnoses. He is in no acute distress at this time and does not appear to meet the criteria for an inpatient psychiatric admission at this time. The plan is to continue current treatment regimen. Physical therapy and case management evaluation recommended. Follow-up with outpatient psychiatry. Total time managing care of this patient today ____ minutes. Patient educated on: therapeutic strategies
--- NOTE | 2025-02-05 14:26 | PC.NURSE ---
pt continues to attempt to get out of bed. assisted pt to stand and pt is very unsteady and had to sit back down bc could not stand well. pt refusing all medications. reassured that these medications are important to take and pt continued to refuse. he states he does not want to eat anything, wants to go home, and wants to be left along. denies SI and HI
[2025-02-05 16:28] LABS: Resp Syncy Virus RNA Qual PCR NEGATIVE (Negative); SARS COV2 PCR INHOUSE NEGATIVE (Negative)
--- NOTE | 2025-02-05 17:53 | PC.NURSE ---
pt refused all of his medications. states they are not the same ones he takes at the SNF. it was explained to Edward that the medications are the same and they are important to take. plan to move pt to ED overflow - meds remain on chart in case he can be persuaded to take them in overflow.
[2025-02-05 18:35] VITALS: BP 198/90; PULSE 74; RESP 20; TEMP 36.3; O2SAT 97
--- NOTE | 2025-02-05 19:10 | PC.NURSE ---
[facility], able to stand and pivot from the stretcher to hospital bed. Patient refused to answer questions. Refused all medication, BP elevated, provider notified.
[2025-02-05 19:16] VITALS: BP 137/80; PULSE 78; RESP 16; TEMP 36.9; O2SAT 98
--- NOTE | 2025-02-05 20:38 | MHC.CM.ED ---
Addendum entered by Liana Guthrie 02/05/25 21:01: CM reviewed medical record. HCP and Molst of file. No mention of invoked HCP. Pt was at [facility] from 11/15 and was discharge to [facility], then at [facility] from 12/24-12/27 and discharged to [facility]. Was again seen at [facility] ED for SI, cleared byCARE team and returned to [facility]. Will need to clarify if patient is a resident at [facility] or there for STR. Pt states he has been at [facility] for 6 months. Medical record disputes that , as he was at [facility] [place] and d/c on 12/21 to home. Original Note: CM met with patient to discuss discharge planning. PT evaluation has been ordered. Pt is A&Ox3. Pt is very upset. Intermittently crying. States he does not want to return to [facility]. States he was living in his own apartment with help and had no problems and all of a sudden was moved into [facility]. States he has been there for 6 months. [facility] Pt was seen by the CARE team and by psych. He was cleared. Psych recommended PT and CM and outpatient psych.. The medical record review states he has been falling. Pt has bruises on his L hip and R leg. Pt states its from staff at the group home. He does admit to many falls. Pt is emotionally upset and crying, telling CM that he will hang himself outside of the building if we send him back to [facility]. He tells CM 'He is hopeless , has no life and wants to . He covered himself with a blanket over his head and will not make eye contact with this typewriter operator automatic. Pt tells CM that his family doesn't care about him and want him in the group home. 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 He did not share a name, just saying that someone at [facility] helps him. CM shared above conversations with Dr. Amanda. will order a psych re-evaluation due to SI statements. CM will follow for discharge planning. Unsure if patient's HCP has been invoked. CM recommends to call [facility] and brother in the morning for more information. Unsure if patient can refuse to return to facility.
[2025-02-05 22:00] VITALS: BP 103/82; PULSE 81; RESP 16; TEMP 36.6; O2SAT 98
[2025-02-06 05:35] VITALS: BP 129/69; PULSE 98; RESP 18; TEMP 36.6; O2SAT 96
[2025-02-06] MEDS: buPROPion HCl XL 300 MG TAB.ER.24H PO (08:49)
[2025-02-06] MEDS: Aspirin Enteric Coated 81 MG TABLET.DR PO (08:49)
[2025-02-06 08:54] VITALS: BP 115/66; PULSE 110; RESP 16; TEMP 36.4; O2SAT 94
[2025-02-06 08:56] VITALS: BP 115/66; PULSE 110
[2025-02-06 08:57] VITALS: BP 115/66
--- NOTE | 2025-02-06 13:58 | MHC.CM.ED ---
Addendum entered by Noemy Grijalva 02/06/25 14:04: Attempted to speak with Chinedu at [facility] via telephone at [phone]. Left voicemail requesting return telephone call. Original Note: Patient remains in ER overflow. Psych consult deferred to Care Team. Per Critical access hospital Team, not appropriate for inpatient level of care. 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 Spoke with patient's brother/HCP, Tim, via telephone at [phone]. Tim believes patient still has an apartment available to him. However Tim has received telephone calls from [facility] multiple times a week about patient falling. Tim is concerned about patient going home and continuing to fall. Met with patient in regards to discharge planning. T/W explained safety concerns about falls at [facility] and the probably of falling at home, especially without 24/7 care. Patient understands the risks of risk. T/W also explained placement at another facility would not likely to be local because patient's SI statements at [facility]. Patient understands this and is agreeable to returning to [facility] tomorrow with the intentions of participating in physical therapy, and having [facility] work with facility about the possibility of transitioning to home with services.
[2025-02-06 14:44] VITALS: BP 108/60; PULSE 77; RESP 16; TEMP 36.6; O2SAT 95
[2025-02-06 22:00] VITALS: BP 101/66; PULSE 75; RESP 18; TEMP 36.6; O2SAT 97
[2025-02-07 05:34] VITALS: BP 94/66; PULSE 99; RESP 16; TEMP 37.2; O2SAT 95
--- NOTE | 2025-02-07 07:22 | PC.NURSE ---
Accepted care of pt. PT A&O X4 NAD No complaints. Assisted with bed change as he spilled urinal.
[2025-02-07 08:20] VITALS: BP 189/91; PULSE 69; PULSE 75; RESP 17; TEMP 36.5; O2SAT 91
[2025-02-07 08:21] VITALS: BP 189/91
[2025-02-07 10:03] VITALS: BP 131/96; PULSE 62; RESP 16; O2SAT 96
--- NOTE | 2025-02-07 10:10 | PC.NURSE ---
Pt A&O 4 VSS NAD Pt appears melancholy and depressed on DC. Attemted to give report to [facility] but keeps going to [facility]. 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 DC paperwork accompanies pt.
== END 2025-02-07 10:12 | disposition other institution (70) ==
PROVIDERS: Emergency Medicine; Emergency Provider Emergency Medicine Emergency Medical Services; PCP Internal Medicine
DX: F32.A Depression, unspecified (principal); F41.9 Anxiety disorder, unspecified; R45.851 Suicidal ideations; N18.32 Chronic kidney disease, stage 3b; I10 Essential (primary) hypertension; Z91.81 History of falling; I25.2 Old myocardial infarction; Z79.899 Other long term (current) drug therapy
CPT/HCPCS: 36415; 80053; 80307; 85025; 87637; 93005; 97162; 99285; S9485

== ENCOUNTER → 2025-02-04 20:11 | Outpatient (BNV) | payer OTHER, SELFPAY | PROVIDERS: Emergency Provider Emergency Medicine Emergency Medical Services; PCP Internal Medicine; Visit Provider Nurse Practitioner Family | DX: R41.3 Other amnesia (principal); R29.6 Repeated falls | CPT/HCPCS: 99283 ==

== ENCOUNTER → 2025-02-04 20:49 | Outpatient (BNV) | payer OTHER, SELFPAY | PROVIDERS: Emergency Provider Emergency Medicine Emergency Medical Services; PCP Internal Medicine; Visit Provider Internal Medicine Cardiovascular Disease | DX: R94.31 Abnormal electrocardiogram [ECG] [EKG] (principal); Z13.6 Encounter for screening for cardiovascular disorders | CPT/HCPCS: 93010 ==